=== PATIENT | female | born 1945 | race Caucasian/White ===

== ENCOUNTER 2021-04-14 07:30 | Outpatient (REF) | payer MEDICARE, SELFPAY ==
[2021-04-14 08:31] LABS: Hematocrit 26.8 % (37-47); Hemoglobin 8.9 g/dl (12.0-16.0); Mean Corpuscular HGB Conc 33.2 g/dl (31.0-35.0); Mean Corpuscular Hemoglobin 30.6 pg (27.0-33.0); Mean Corpuscular Volume 92.1 fL (80-98); Mean Platelet Volume 9.8 fL (9.4-12.3); Platelet Count 302 X10*3/uL (160-400); Red Blood Count 2.91 X10*6/uL (4.20-5.50); Red Cell Distribution Width 14.4 % (11.0-16.0); White Blood Count 10.3 X10*3/uL (4.8-10.8)
[2021-04-14 08:37] LABS: Estimated Average Glucose 146 mg/dL; Hemoglobin A1c % 6.7 %
[2021-04-14 09:48] LABS: TSH reflex Free T4 5.75 uIU/mL (0.32-4.0)
[2021-04-14 10:00] LABS: Creatinine Urine 46.93 mg/dL
[2021-04-14 10:09] LABS: Alanine Aminotransferase 11 U/L (0-31); Albumin Level 3.3 g/dL (3.5-5.0); Alkaline Phosphatase 111 U/L (39-117); Anion Gap 18 (12-20); Aspartate Amino Transferase 17 U/L (5-31); Bilirubin Total 0.5 mg/dL (0.0-1.0); Blood Urea Nitrogen 53 mg/dL (9-16); Calcium 7.1 mg/dL (8.4-10.2); Carbon Dioxide 20 mmol/L (22-29); Chloride 101 mmol/L (96-108); Cholesterol 172 mg/dL; Estimated Glomerular Filt Rate 9; Glucose Fasting 169 mg/dL (60-99); HDL Cholesterol 43 mg/dL; Iron 45 mcg/dL (30-160); LDL Cholesterol Calculated 86 mg/dl; Percent Iron Saturation 20 % (15-50); Potassium 3.3 mmol/L (3.3-5.1); Sodium 136 mmol/L (135-145); Total Iron Binding Capacity 230 mcg/dL (228-428); Total Protein 5.9 g/dL (6.5-8.0); Triglycerides 215 mg/dL; Unsaturated Iron Binding 185 ug/dL
[2021-04-14 10:39] LABS: Free T4 (Free Thyroxine) 0.81 ng/dL (0.71-1.85)
[2021-04-16 09:11] LABS: Vitamin B12 1609 pg/mL (200-900)
== END 2021-04-14 07:31 | disposition home or self-care (01) ==
LOC: HO.LAB 07:30
PROVIDERS: PCP Internal Medicine; Visit Provider Physician Assistant
DX: D50.9 Iron deficiency anemia, unspecified (principal); D51.0 Vitamin B12 deficiency anemia due to intrinsic factor deficiency; E03.9 Hypothyroidism, unspecified; E11.65 Type 2 diabetes mellitus with hyperglycemia; I10 Essential (primary) hypertension; Z79.4 Long term (current) use of insulin
CPT/HCPCS: 36415; 80053; 80061; 82043; 82607; 83036; 83540; 84439; 84443; 85027

== ENCOUNTER 2021-04-14 11:12 | Inpatient (IN) | payer MEDICARE, MEDICAID, SELFPAY ==
[2021-04-14] VITALS (12 sets, daily range): BP systolic 139–214; BP diastolic 48–107; PULSE 63–72; RESP 14–20; TEMP 36.5–36.8; O2SAT 94–97; BMI 39.4; BMI 40.1
--- NOTE | ~2021-04-14 | XR_ITS ---
EXAMINATION: XR CHEST CLINICAL INFORMATION: SOB. COMPARISON: None TECHNIQUE: Frontal view of the chest was obtained. FINDINGS: No significant abnormality is noted involving the heart, lungs, mediastinum, bony thorax or soft tissues. XR/XR chest 1V IMPRESSION: Unremarkable chest exam
--- NOTE | ~2021-04-14 | US_ITS ---
EXAMINATION: US RETROPERITONEAL LIMITED (RENAL ONLY) CLINICAL INFORMATION: Acute on chronic kidney disease. COMPARISON: None TECHNIQUE: Grayscale and color imaging of the kidneys FINDINGS: RIGHT KIDNEY: 9.1 x 4.7 x 4.9 cm (SAG x AP x TRV). The kidney is normal in size, contour, and echogenicity. Renal cortical thickness is normal. No calculi or focal parenchymal lesions. No hydronephrosis. LEFT KIDNEY: 10.2 x 5 x 5.5 cm (SAG x AP x TRV). The kidney is normal in size, contour, and echogenicity. Renal cortical thickness is normal. No calculi or focal parenchymal lesions. No hydronephrosis. US/US renal BI IMPRESSION: Normal renal ultrasound.
--- NOTE | 2021-04-14 11:56 | ECG_ITS ---
Test Reason : sob Blood Pressure : / mmHG Vent. Rate : 064 BPM Atrial Rate : 064 BPM P-R Int : 188 ms QRS Dur : 076 ms QT Int : 452 ms P-R-T Axes : 080 048 026 degrees QTc Int : 466 ms Normal sinus rhythm Normal ECG No previous ECGs available Referred By: Kirstin Arias Electronically Signed By:JANIE ISAACS MD
--- NOTE | 2021-04-14 12:09 | ED_ITS ---
HPI - Recheck/Abnormal Lab/Rx General Chief Complaint: Recheck/Abnormal Lab/Rx Stated Complaint: kidney issue Time Seen by Provider: 04/14/21 11:33 Source: patient Mode of arrival: ambulatory History of Present Illness HPI narrative: 75-year-old female with a past medical history of type 2 diabetes, CKD stage 5 hypertensive nephropathy, anemia secondary to renal failure, vitamin-D deficiency, presenting to ED sent in by new PCP for abnormal labs pertaining to renal function. Son reports patient recently moved from [place], has not seen a doctor in several months. Patient reports mild SOB, lightheadedness, and black stool. Denies fever, chills, cough, CP, abdominal pain, nausea/vomiting/diarrhea, dysuria/hematuria. Patient's records from [place] show most recent GFR from 09/14/2020 creatinine 3.1, hemoglobin 8.6, patient was being managed by lead warehouse associate with possible need of dialysis Related Data Home Medications Medication Instructions Recorded Confirmed temazepam 30 mg capsule 30 mg PO BEDTIME PRN 04/12/21 04/14/21 cyanocobalamin (vitamin B-12) 1,000 mcg IM Q28D 04/14/21 04/14/21 1,000 mcg/mL injection solution Previous Rx's Medication Instructions Recorded amitriptyline 10 mg tablet 10 mg PO DAILY 30 Days #30 tab 04/12/21 amlodipine 5 mg tablet 5 mg PO DAILY 30 Days #30 tab 04/12/21 aspirin 81 mg tablet,delayed 81 mg PO DAILY 30 Days #30 tab 04/12/21 release (Adult Low Dose Aspirin) atorvastatin 40 mg tablet 40 mg PO BEDTIME #30 tab 04/12/21 cholecalciferol (vitamin D3) 25 25 mcg PO DAILY #30 cap 04/12/21 mcg (1,000 unit) capsule ferrous sulfate 250 mg (50 mg 250 mg PO DAILY 30 Days #30 tab 04/12/21 iron) tablet,extended release furosemide 20 mg tablet 20 mg PO BID 30 Days #60 tab 04/12/21 insulin NPH-regular 70-30 U-100 25 unit SUBCUT BID 30 Days #15 ml 04/12/21 insulin 100 unit/mL subcutaneous pen (Novolin 70-30 FlexPen U-100 Insulin) levothyroxine 25 mcg capsule 25 mcg PO DAILY #30 cap 04/12/21 loratadine 10 mg tablet (Allergy 10 mg PO DAILY #30 tab 04/12/21 Relief (loratadine)) metoprolol tartrate 25 mg tablet 25 mg PO DAILY #30 tab 04/12/21 montelukast 10 mg tablet 10 mg PO BEDTIME #30 tab 04/12/21 pantoprazole 20 mg tablet,delayed 20 mg PO DAILY #30 tab 04/12/21 release pen needle, diabetic 32 gauge x #50 ea 04/12/21 (BD Sandra 2nd Gen Pen Needle) tramadol 50 mg tablet 50 mg PO BEDTIME 14 Days #14 tab 04/12/21 blood sugar diagnostic (FreeStyle #100 ea 04/13/21 Lite Strips) blood-glucose meter (FreeStyle #1 ea 04/13/21 Lite Meter) lancets 28 gauge (FreeStyle #100 ea 04/13/21 Lancets) Allergies Allergy/AdvReac Type Severity Reaction Status Date / Time No Known Allergies Allergy Verified 04/14/21 11:17 Review of Systems Review of Systems: Constitutional: No Fever, No Chills, No Fatigue, No Malaise ENT/Mouth: No Ear Pain, No Nasal Congestion, No sore throat Eyes: No Eye Pain, No Swelling, No Redness, No Discharge Cardiovascular: No Chest Pain, + SOB, No Palpitations Respiratory: No Cough, No Dyspnea Gastrointestinal: No Nausea, No Vomiting, No Diarrhea, No Constipation, No Abd ominal pain, +melena Genitourinary: No Dysuria, No Hematuria, No Flank Pain, No Urinary Flow Changes, No Hesitancy Musculoskeletal: No joint pain, No Myalgias, No Joint Swelling Skin: No Skin Lesions, No rash Neuro: No Weakness, No Numbness, No Paresthesias, No Loss of Consciousness, +Lightheadedness, No Headache Yes all other systems are reviewed and are negative [facility] Past Medical History Attestation statement: The following information was validated with the patient. Medical History Arthritis Diabetes Hypertension Toe amputee Surgical History Hx of appendectomy Social History Social History Housing: House Alcohol intake: never Patient Tobacco Use Status: Never used Tobacco Tobacco use type: Cigarette e-Cigarette/Vaping Use: Never Used Second Hand Smoke Exposure: No Use of substances other than those prescribed or required for medical reasons: No Advance Directives: No Advance Directives Information Provided: No Physical Exam Vital Signs: Vital Signs: Last Vital Signs Temp 98.2 F 04/14/21 11:17 Pulse 63 04/14/21 16:40 Resp 18 04/14/21 16:40 BP 200/107 H 04/14/21 16:40 Pulse Ox 95 04/14/21 16:40 Body Mass Index 39.4 Const: General: cooperative, healthy appearing and no acute distress Orientation/consciousness: patient oriented x3 Limitations: no limitations HENMT: Head: Yes normal to inspection and Yes atraumatic Ears: hearing grossly normal bilaterally General nose exam: Normal external nose present Face and sinus: Yes normal facial exam Eyes: General: appearance normal, both eyes and all related structures EOM: EOMs intact bilaterally Neck: Neck: Yes normal visual inspection Resp: Effort & Inspection: normal respiratory effort Auscultation: clear to auscultation bilaterally, no rales, no rhonchi and no wheezes Cardio: Rate: regular rate Heart sounds: S1 normal heart sound present and S2 normal heart sound present GI: Inspection: Yes normal to inspection Palpation (GI): Soft to palpation, nontender, no guarding and not rigid Skin: Rashes: no rashes Wounds: no wounds Neuro: General: patient oriented x3, tone normal, moves all extremities and no focal motor deficits Gait exam (Neuro): Normal gait present Extrem: Other: + bilateral LE edema General: Yes normal to inspection and Yes no calf tenderness Course Course Course Narrative: -1437--H&H at patient's baseline, acute on chronic worsening CKD with BUN of 54, creatinine 4.6. Potassium WNL -BNP 458 XR chest 1V IMPRESSION: Unremarkable chest exam >> plan to admit for acute on chronic CKD MDM - Recheck/Abnormal Lab/Rx MDM Narrative Medical decision making narrative: 75-year-old female with a past medical history of type 2 diabetes, CKD stage 5 hypertensive nephropathy, anemia secondary to renal failure, vitamin-D deficiency, presenting to ED sent in by new PCP for abnormal labs pertaining to renal function. Patient reports mild SOB, lightheadedness, and black stool. On exam hypertensive, NAD/nontoxic appearing, physical exam as above. Concern for acute on chronic CKD vs occult GI bleed vs metabolic abnormalities. Lower concern for infectious etiology. Rule out CHF. Symptoms atypical for ACS Plan: EKG, labs, UA, CXR, anticipated admission Medical Records Attestation: I reviewed the patient's medical records. Lab Data Attestation: I reviewed the patient's lab results. Result diagrams: 04/14/21 12:04/14/21 12:21 Labs: Lab Results 04/14/21 04/14/21 04/14/21 Range/Units 12:21 12:21 12:21 WBC 11.2 H (4.8-10.8) X10*3/uL RBC 2.85 L (4.20-5.50) X10*6/uL Hgb 8.6 L (12.0-16.0) g/dl Hct 25.8 L (37-47) % MCV 90.5 (80-98) fL MCH 30.2 (27.0-33.0) pg MCHC 33.3 (31.0-35.0) g/dl RDW 14.4 (11.0-16.0) % Plt Count 264 (160-400) X10*3/uL MPV 10.1 (9.4-12.3) fL Immature Gran % (Auto) 0.4 (0.0-0.4) % Neut % (Auto) 68.8 (45-73) % Lymph % (Auto) 15.9 L (20-40) % [facility] % (Auto) 7.2 (2-11) % Eos % (Auto) 7.3 H (0-4) % Baso % (Auto) 0.4 (0-2) % Lymph # (Auto) 1.8 (1.2-4.9) X10*3/uL [facility] # (Auto) 0.8 (0.1-1.2) X10*3/uL Eos # (Auto) 0.8 H (0.0-0.4) X10*3/uL Baso # (Auto) 0.1 (0.0-0.2) X10*3/uL Abs Immat Gran (auto) 0.05 H (0.00-0.03) X10*3/uL Absolute Neuts (auto) 7.7 (2.0-8.3) X10*3/uL Absolute Nucleated RBC 0.000 (0.0-0.012) X10*3/uL Nucleated RBC % (auto) 0.0 (0.0-0.2) /100WBC Sodium 135 (135-145) mmol/L Potassium 3.4 (3.3-5.1) mmol/L Chloride 100 (96-108) mmol/L Carbon Dioxide 22 (22-29) mmol/L Anion Gap 16 (12-20) BUN 54 H (9-16) mg/dL Creatinine 4.60 H* (0.5-1.4) mg/dL Estim Creat Clear Calc 11.0 Estimated GFR 9 Random Glucose 195 H (60-115) mg/dL Calcium 7.0 L (8.4-10.2) mg/dL Magnesium 1.7 (1.6-2.6) mg/dL Iron 57 (30-160) mcg/dL TIBC 219 L (228-428) mcg/dL % Saturation 26 (15-50) % Unsat Iron Binding 162 ug/dL Ferritin 380 H (10-250) ng/mL Total Bilirubin 0.4 (0.0-1.0) mg/dL Direct Bilirubin < 0.2 (0.0-0.5) mg/dL AST 20 (5-31) U/L ALT 11 (0-31) U/L Alkaline Phosphatase 102 (39-117) U/L B-Natriuretic Peptide 458 H (<100) pg/mL Total Protein 5.7 L (6.5-8.0) g/dL Albumin 3.1 L (3.5-5.0) g/dL Lipase 44 (8-78) U/L Urine Color Urine Appearance Urine pH (5.0-8.0) Ur Specific [place] (1.005-1.025) Urine Protein (NEG-TRACE) MG/DL Urine Glucose (UA) (NEG) MG/DL Urine Ketones (NEG) MG/DL Urine Blood (NEG) Urine Nitrite (NEG) Ur Leukocyte Esterase (NEG) Urine RBC (0) /HPF Urine WBC (0-4) /HPF Ur Squamous Epith Cells /LPF Amorphous Sediment /LPF Urine Bacteria /LPF Stool Occult Blood (NEGATIVE) COVID-19 (GLENNA) (Negative) COVID-19 Clin Com 04/14/21 04/14/21 04/14/21 Range/Units 12:21 12:21 13:08 WBC (4.8-10.8) X10*3/uL RBC (4.20-5.50) X10*6/uL Hgb (12.0-16.0) g/dl Hct (37-47) % MCV (80-98) fL MCH (27.0-33.0) pg MCHC (31.0-35.0) g/dl RDW (11.0-16.0) % Plt Count (160-400) X10*3/uL MPV (9.4-12.3) fL Immature Gran % (Auto) (0.0-0.4) % Neut % (Auto) (45-73) % Lymph % (Auto) (20-40) % [facility] % (Auto) (2-11) % Eos % (Auto) (0-4) % Baso % (Auto) (0-2) % Lymph # (Auto) (1.2-4.9) X10*3/uL [facility] # (Auto) (0.1-1.2) X10*3/uL Eos # (Auto) (0.0-0.4) X10*3/uL Baso # (Auto) (0.0-0.2) X10*3/uL Abs Immat Gran (auto) (0.00-0.03) X10*3/uL Absolute Neuts (auto) (2.0-8.3) X10*3/uL Absolute Nucleated RBC (0.0-0.012) X10*3/uL Nucleated RBC % (auto) (0.0-0.2) /100WBC Sodium (135-145) mmol/L Potassium (3.3-5.1) mmol/L Chloride (96-108) mmol/L Carbon Dioxide (22-29) mmol/L Anion Gap (12-20) BUN (9-16) mg/dL Creatinine (0.5-1.4) mg/dL Estim Creat Clear Calc Estimated GFR Random Glucose (60-115) mg/dL Calcium (8.4-10.2) mg/dL Magnesium (1.6-2.6) mg/dL Iron (30-160) mcg/dL TIBC (228-428) mcg/dL % Saturation (15-50) % Unsat Iron Binding ug/dL Ferritin (10-250) ng/mL Total Bilirubin (0.0-1.0) mg/dL Direct Bilirubin (0.0-0.5) mg/dL AST (5-31) U/L ALT (0-31) U/L Alkaline Phosphatase (39-117) U/L B-Natriuretic Peptide (<100) pg/mL Total Protein (6.5-8.0) g/dL Albumin (3.5-5.0) g/dL Lipase (8-78) U/L Urine Color STRAW Urine Appearance HAZY Urine pH 6.0 (5.0-8.0) Ur Specific [place] 1.010 (1.005-1.025) Urine Protein 3+ H (NEG-TRACE) MG/DL Urine Glucose (UA) 100 H (NEG) MG/DL Urine Ketones NEG (NEG) MG/DL Urine Blood 1+ H (NEG) Urine Nitrite NEG (NEG) Ur Leukocyte Esterase NEG (NEG) Urine RBC 0-2 (0) /HPF Urine WBC 0 (0-4) /HPF Ur Squamous Epith Cells TRACE /LPF Amorphous Sediment 1+ /LPF Urine Bacteria TRACE /LPF Stool Occult Blood NEGATIVE (NEGATIVE) COVID-19 (GLENNA) Negative (Negative) COVID-19 Clin Com See Note Discharge Plan Discharge Clinical Impression: Acute kidney injury superimposed on chronic kidney disease Patient Disposition: Admitted As Inpatient
[2021-04-14 12:24] LABS: MANUAL DIFF FLAG NO
[2021-04-14] MEDS: 0.9 % Sodium Chloride 500 ML 999 ML IV (12:24)
[2021-04-14 12:26] LABS: Basophils Absolute Auto 0.1 X10*3/uL (0.0-0.2); Basophils Percent Auto 0.4 % (0-2); Eosinophils Absolute Auto 0.8 X10*3/uL (0.0-0.4); Eosinophils Percent Auto 7.3 % (0-4); Hematocrit 25.8 % (37-47); Hemoglobin 8.6 g/dl (12.0-16.0); Imm Gran Abs Auto 0.05 X10*3/uL (0.00-0.03); Imm Gran Pct Auto 0.4 % (0.0-0.4); Lymphocytes Absolute Auto 1.8 X10*3/uL (1.2-4.9); Lymphocytes Percent Auto 15.9 % (20-40); Mean Corpuscular HGB Conc 33.3 g/dl (31.0-35.0); Mean Corpuscular Hemoglobin 30.2 pg (27.0-33.0); Mean Corpuscular Volume 90.5 fL (80-98); Mean Platelet Volume 10.1 fL (9.4-12.3); Monocytes Absolute Auto 0.8 X10*3/uL (0.1-1.2); Monocytes Percent Auto 7.2 % (2-11); Neutrophils Absolute Auto 7.7 X10*3/uL (2.0-8.3); Neutrophils Percent Auto 68.8 % (45-73); Platelet Count 264 X10*3/uL (160-400); Red Blood Count 2.85 X10*6/uL (4.20-5.50); Red Cell Distribution Width 14.4 % (11.0-16.0); White Blood Count 11.2 X10*3/uL (4.8-10.8)
[2021-04-14 12:59] LABS: B Type Natriuretic Peptide 458 pg/mL (<100)
[2021-04-14 13:10] LABS: OBS Int Ctl Valid YES; OBS1 NEGATIVE (NEGATIVE)
[2021-04-14 13:15] LABS: Alanine Aminotransferase 11 U/L (0-31); Albumin Level 3.1 g/dL (3.5-5.0); Alkaline Phosphatase 102 U/L (39-117); Anion Gap 16 (12-20); Aspartate Amino Transferase 20 U/L (5-31); Bilirubin Direct < 0.2 mg/dL (0.0-0.5); Bilirubin Total 0.4 mg/dL (0.0-1.0); Blood Urea Nitrogen 54 mg/dL (9-16); Carbon Dioxide 22 mmol/L (22-29); Chloride 100 mmol/L (96-108); Estimated Glomerular Filt Rate 9; Glucose Random 195 mg/dL (60-115); Lipase 44 U/L (8-78); Magnesium 1.7 mg/dL (1.6-2.6); Potassium 3.4 mmol/L (3.3-5.1); Sodium 135 mmol/L (135-145); Total Protein 5.7 g/dL (6.5-8.0)
[2021-04-14 13:22] LABS: Color Urine STRAW; Glucose Urine UA 100 MG/DL (NEG); Leukocyte Esterase Urine NEG (NEG); Nitrite Urine NEG (NEG); UACC Culture Trigger NO; Urine Blood 1+ (NEG); Urine Ketones NEG (NEG); Urine Protein 3+ MG/DL (NEG-TRACE)
[2021-04-14 13:25] LABS: Appearance Urine HAZY
[2021-04-14 13:26] LABS: COVID-19 Test Negative (Negative)
[2021-04-14 13:34] LABS: Amorphous Sediment Urine 1+ /LPF; Bacteria Urine TRACE /LPF; RBC Urine 0-2 /HPF (0); Squamous Epithelial Cell Urine TRACE /LPF; WBC Urine 0 /HPF (0-4)
[2021-04-14] MEDS: Metoprolol Tartrate 25 MG TABLET PO (15:08)
--- NOTE | 2021-04-14 15:12 | PC.NURSE ---
BP elevated. Son states that she took her AM metoprolol and amlodipine. an additional 25mg of metoprolol given for BP. Will continue to monitor.
--- NOTE | 2021-04-14 16:09 | P.HPHOSP_ITS ---
History of Present Illness Date of Service: 04/14/21 Attending physician on admission: Lindsey Burnett Chief Complaint: kyler on ckd, hypertension 75-year-old female who came to the hospital because of had lab test with her primary doctor after returning from [place] and came out to be worsening of renal function from creatinine of 3.1-4.6. She denies any complaints, as per her son at bedside: She was in [place] with her daughter and was not controlling her diet and her sugars were running above 200 range all the time. Subsequently her insulin was adjusted but she went since she recently returned from [place]-son did tight diabetic control -her sugar seems to be improved in 150 range as per the son. He says that she still producing urine and denies any urinary complaints. But since her PCP checked the labs and her creatinine worsen since last times so sent to the hospital for further management. Patient had to 3 episode of diarrhea this week but otherwise no new complaints As per patient's son she is eating and hydrating well. Denies any new complaint of chest pain or shortness of breath or abdominal pain or fever or chills or nausea or vomiting Denies any cough Denies any weakness or numbness. pmx: 1. Chronic kidney disease stage 4-5 versus end-stage renal disease as per the record son brought . 2. Hypertension heart disease. 3. Diabetes with neuropathy 3. Anemia secondary to renal failure. 4. Left ventricular DIS for diastolic dysfunction with preserved systolic function 5. Persistent proteinuria 6. Frailty syndrome in geriatric patient. 7. Low vitamin-D 8. Primary insomnia 9. Allergic rhinitis 10. Retinal degeneration 11.Morbid obesity 12. Has history of vitreous hemorrhage in the past as per the son had intra- ocular injections. 13. Patient has leg edema chronic for which she uses compression stockings. Social history: She lives with her son, she does not smoke or drink or any recreational drug use. Surgical history: Appendectomy, tubal ligation, both the foot the had surgery after injury in the past. Family history: Son has diabetes Review of Systems Review of Systems: As above. Yes all other systems are reviewed and are negative COUNTS INCLUDE 234 BEDS AT THE [facility] Medical History Arthritis Diabetes Hypertension Toe amputee Pertinent family history: Son has diabetes Surgical History Hx of appendectomy Social History Housing: House Alcohol intake: never Patient Tobacco Use Status: Never used Tobacco Tobacco use type: Cigarette e-Cigarette/Vaping Use: Never Used Second Hand Smoke Exposure: No Use of substances other than those prescribed or required for medical reasons: No Advance Directives: No Advance Directives Information Provided: No Meds Allergies Allergy/AdvReac Type Severity Reaction Status Date / Time No Known Allergies Allergy Verified 04/14/21 11:17 Active Medications: Current Medications Amitriptyline HCl (Amitriptyline Hcl 10 Mg Tablet) 10 mg PO DAILY MARKIE Amlodipine Besylate (Amlodipine Besylate 5 Mg Tablet) 5 mg PO DAILY MARKIE; Protocol Aspirin (Aspirin Enteric Coated 81 Mg Tablet.Dr) 81 mg PO DAILY MARKIE Atorvastatin Calcium (Atorvastatin Calcium 40 Mg Tablet) 40 mg PO BEDTIME MARKIE Cyanocobalamin (Cyanocobalamin (Vitamin B-12) 1,000 Mcg/Ml Vial) 1,000 mcg IM Q28D MARKIE Sodium Chloride (Ns) 1,000 mls @ 60 mls/hr IVCONT .[id number] MARKIE Lactated Ringer's (Lr) 1,000 mls @ 60 mls/hr IVCONT .[id number] MARKIE Levothyroxine Sodium (Levothyroxine Sodium 25 Mcg Tablet) 25 mcg PO DAILY MARKIE Loratadine (Loratadine 10 Mg Tablet) 10 mg PO DAILY MARKIE Montelukast Sodium (Montelukast Sodium 10 Mg Tablet) 10 mg PO BEDTIME MARKIE Non-Formulary Medication (Ferrous Sulfate) 250 mg PO DAILY MARKIE Non-Formulary Medication (Temazepam) 30 mg PO BEDTIME PRN PRN Reason: Insomnia Pharmacy Consult (Consult Rx Perform Med Rec) 1 each MISCELLANE ONCE PRN PRN Reason: Consult order Tramadol HCl (Tramadol Hcl 50 Mg Tablet) 50 mg PO BEDTIME MARKIE Vitamin D (Cholecalciferol (Vitamin D3) 25 Mcg Tablet) 25 mcg PO DAILY MARKIE Home Medications Medication Instructions Recorded Confirmed Last Taken Type temazepam 30 mg capsule 30 mg PO BEDTIME PRN 04/12/21 04/14/21 04/13/21 History cyanocobalamin (vitamin B-12) 1,000 mcg IM Q28D 04/14/21 04/14/21 04/14/21 History 1,000 mcg/mL injection solution Physical Exam Vital Signs and Narrative: Vital Signs: Last Vital Signs Temp 98.2 F 04/14/21 11:17 Pulse 68 04/14/21 15:08 Resp 18 04/14/21 13:52 BP 214/48 H 04/14/21 15:08 Pulse Ox 96 04/14/21 13:52 Body Mass Index 39.4 Physical exam: Appearance: Alert.? Oriented X3.? not in distress.? Eyes: Pupils equal, round and reactive to light.? Sclera nonicteric.? ENT: Pharynx normal.? Moist mucous membranes. cvs: rrr, [id number] , no murmur res: clear to auscultation ,no rhonchii or wheezing abd: no rebound or guarding ,nt, bs present. ext pulses present , no cyanosis ,non pitting puffiness. neuro: axo3 , nonfocal. Results Labs CBC and Chem 7: 04/14/21 12:21 04/14/21 12:21 Labs: Laboratory Results - last 24 hr 04/14/21 04/14/21 04/14/21 12:21 12:21 12:21 MCV 90.5 MCH 30.2 MCHC 33.3 RDW 14.4 Plt Count 264 MPV 10.1 Immature Gran % (Auto) 0.4 Neut % (Auto) 68.8 Lymph % (Auto) 15.9 L [place] % (Auto) 7.2 Eos % (Auto) 7.3 H Baso % (Auto) 0.4 Lymph # (Auto) 1.8 [place] # (Auto) 0.8 Eos # (Auto) 0.8 H Baso # (Auto) 0.1 Abs Immat Gran (auto) 0.05 H Absolute Neuts (auto) 7.7 Absolute Nucleated RBC 0.000 Nucleated RBC % (auto) 0.0 Anion Gap 16 Estim Creat Clear Calc 11.0 Estimated GFR 9 Random Glucose 195 H Calcium 7.0 L Magnesium 1.7 Total Bilirubin 0.4 Direct Bilirubin < 0.2 AST 20 ALT 11 Alkaline Phosphatase 102 B-Natriuretic Peptide 458 H Total Protein 5.7 L Albumin 3.1 L Lipase 44 Urine Color Urine Appearance Urine pH Ur Specific [place] Urine Protein Urine Glucose (UA) Urine Ketones Urine Blood Urine Nitrite Ur Leukocyte Esterase Urine RBC Urine WBC Ur Squamous Epith Cells Amorphous Sediment Urine Bacteria Stool Occult Blood COVID-19 (GLENNA) COVID-19 Clin Com 04/14/21 04/14/21 04/14/21 12:21 12:21 13:08 MCV MCH MCHC RDW Plt Count MPV Immature Gran % (Auto) Neut % (Auto) Lymph % (Auto) [place] % (Auto) Eos % (Auto) Baso % (Auto) Lymph # (Auto) [place] # (Auto) Eos # (Auto) Baso # (Auto) Abs Immat Gran (auto) Absolute Neuts (auto) Absolute Nucleated RBC Nucleated RBC % (auto) Anion Gap Estim Creat Clear Calc Estimated GFR Random Glucose Calcium Magnesium Total Bilirubin Direct Bilirubin AST ALT Alkaline Phosphatase B-Natriuretic Peptide Total Protein Albumin Lipase Urine Color STRAW Urine Appearance HAZY Urine pH 6.0 Ur Specific [place] 1.010 Urine Protein 3+ H Urine Glucose (UA) 100 H Urine Ketones NEG Urine Blood 1+ H Urine Nitrite NEG Ur Leukocyte Esterase NEG Urine RBC 0-2 Urine WBC 0 Ur Squamous Epith Cells TRACE Amorphous Sediment 1+ Urine Bacteria TRACE Stool Occult Blood NEGATIVE COVID-19 (GLENNA) Negative COVID-19 Clin Com See Note Imaging Radiologist's Impressions: Impressions Chest X-Ray 04/14/21 11:56 IMPRESSION: Unremarkable chest exam Assessment and Plan (1) HTN (hypertension): Qualifiers: Hypertension type: primary hypertension Qualified Code(s): I10 - Essential (primary) hypertension Status: Acute (2) DMII (diabetes mellitus, type 2): Qualifiers: 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 Still produces urine UA done shows proteinuria unclear if it is worsened from the baseline because he she has history of proteinuria. Given 1 L fluid in ED Started on gentle hydration Repeat BMP in the morning Nephrology evaluation 2. Diabetes: Fingersticks are in 190 knee range Diabetic diet Fingerstick with sliding scale coverage. 3. hypertension urgency : Given metoprolol in the ED will add amlodipine and will continue home medications. 4. Hypercholesteremia continue atorvastatin 5: Anemia of chronic disease: Continue iron supplements Also patient is on B12 will continue that. Stool for occult blood negative 6.htn heart dis: moniter blood pressure , asa , statin. dvt prophylax : s/c heparin Quality Stroke Does the patient have a stroke diagnosis?: No VTE Prior VTE?: No VTE Risk Level:: Medical - moderate - high VTE Device Contraindication: N/A - Device Ordered VTE Drug Contraindication: N/A - Med Ordered
[2021-04-14 16:29] LABS: Iron 57 mcg/dL (30-160); Percent Iron Saturation 26 % (15-50); Total Iron Binding Capacity 219 mcg/dL (228-428); Unsaturated Iron Binding 162 ug/dL
[2021-04-14 16:44] LABS: Ferritin 380 ng/mL (10-250)
[2021-04-14] MEDS: amLODIPine Besylate 5 MG TABLET PO (16:44)
[2021-04-14] MEDS: Lactated Ringers 1,000 ML 80 ML IVCONT (17:38)
[2021-04-14] MEDS: hydrALAZINE HCl 20 MG/ML VIAL 10 MG IVPUSH ×2 (18:02→19:30)
[2021-04-14] MEDS: Heparin Sodium,Porcine 5,000 UNIT/ML VIAL 5000 UNIT SUBCUT (18:03)
--- NOTE | 2021-04-14 18:09 | PC.NURSE ---
1x dose of hydralizine given for BP that was persistently elevated in 200sSBP. Pressure now trending down. Will continue to monitor.
[2021-04-14 18:27] LABS: Glucose, Whole Blood 268 mg/dL (60-115)
[2021-04-14] MEDS: Insulin Lispro 100 UNIT/ML 3 ML VIAL SUBCUT (18:32)
[2021-04-14 19:45] LABS: Glucose, Whole Blood 249 mg/dL (60-115)
[2021-04-14 22:31] LABS: Glucose, Whole Blood 157 mg/dL (60-115)
[2021-04-14] MEDS: traMADoL HCL 50 MG TABLET PO (23:09)
[2021-04-14] MEDS: Atorvastatin Calcium 40 MG TABLET PO (23:09)
[2021-04-14] MEDS: Montelukast Sodium 10 MG TABLET PO (23:09)
--- NOTE | 2021-04-14 23:52 | MHC.PIE ---
p; bp 187/74 on arrival from ed. note; pt denies any ch pain or dizziness i; dr vallejo notifed - notify if over 190 i; will cont to monitor
[2021-04-15] VITALS (7 sets, daily range): BP systolic 115–190; BP diastolic 55–87; PULSE 70–74; RESP 16–20; TEMP 36–36.6; O2SAT 93–96
[2021-04-15] MEDS: Heparin Sodium,Porcine 5,000 UNIT/ML VIAL 5000 UNIT SUBCUT ×3 (02:09→17:16)
[2021-04-15] MEDS: Lactated Ringers 1,000 ML 80 ML IVCONT ×2 (04:11→23:02)
[2021-04-15 05:41] LABS: Hematocrit 25.7 % (37-47); Hemoglobin 8.5 g/dl (12.0-16.0); Mean Corpuscular HGB Conc 33.1 g/dl (31.0-35.0); Mean Corpuscular Hemoglobin 30.5 pg (27.0-33.0); Mean Corpuscular Volume 92.1 fL (80-98); Mean Platelet Volume 10.3 fL (9.4-12.3); Platelet Count 265 X10*3/uL (160-400); Red Blood Count 2.79 X10*6/uL (4.20-5.50); Red Cell Distribution Width 14.4 % (11.0-16.0); White Blood Count 10.8 X10*3/uL (4.8-10.8)
[2021-04-15 06:21] LABS: Anion Gap 18 (12-20); Blood Urea Nitrogen 50 mg/dL (9-16); Calcium 7.1 mg/dL (8.4-10.2); Carbon Dioxide 20 mmol/L (22-29); Chloride 105 mmol/L (96-108); Creatinine Clr Calc Pharmacy 11.9; Estimated Glomerular Filt Rate 10; Glucose Random 165 mg/dL (60-115); Potassium 3.2 mmol/L (3.3-5.1); Sodium 140 mmol/L (135-145)
[2021-04-15 07:34] LABS: Glucose, Whole Blood 144 mg/dL (60-115)
[2021-04-15 07:43] LABS: Magnesium 1.8 mg/dL (1.6-2.6)
[2021-04-15] MEDS: amLODIPine Besylate 5 MG TABLET PO (10:38)
[2021-04-15] MEDS: Levothyroxine Sodium 25 MCG TABLET PO (10:38)
[2021-04-15] MEDS: Ferrous Sulfate 324 MG TABLET.DR PO (10:38)
[2021-04-15] MEDS: Loratadine 10 MG TABLET PO (10:38)
[2021-04-15] MEDS: Aspirin Enteric Coated 81 MG TABLET.DR PO (10:38)
[2021-04-15] MEDS: Amitriptyline HCl 10 MG TABLET PO (10:38)
[2021-04-15] MEDS: Potassium Chloride Packet 20 MEQ PACKET PO (10:38)
[2021-04-15] MEDS: Cholecalciferol (Vitamin D3) 25 MCG TABLET PO (10:38)
[2021-04-15] MEDS: Insulin Glargine,Hum.rec.anlog 100 UNIT/ML 10 ML VIAL 14 UNIT SUBCUT (10:39)
--- NOTE | 2021-04-15 11:15 | P.PNIM_ITS ---
Subjective Subjective Date of Service: 04/15/21 Interval History: Hypertensive urgency, KYLER on CKD Review of Systems Denies any new complaint of chest pain or shortness of breath or abdominal pain or fever or chills or nausea or vomiting Denies any cough Denies any weakness or numbness. Physical Exam Vital Signs: Vital Signs: Last Vital Signs Temp 96.8 F 04/15/21 07:40 Pulse 73 04/15/21 10:38 Resp 20 04/15/21 07:40 BP 180/55 H 04/15/21 10:38 Pulse Ox 93 04/15/21 07:40 Body Mass Index 40.1 Appearance: Alert.? Oriented X3.? not in distress.? Eyes: Pupils equal, round and reactive to light.? Sclera nonicteric.? ENT: Pharynx normal.? Moist mucous membranes. cvs: rrr, [id number] , no murmur res: clear to auscultation ,no rhonchii or wheezing abd: no rebound or guarding ,nt, bs present. ext pulses present , no cyanosis ,Gait well balanced well coordinated. neuro: axo3 , nonfocal. Objective Data Active Medications Albuterol Sulfate (Albuterol Sulfate 90 Mcg 8 Gm Inhaler) 2 puff INHALE RBID [facility] Last Admin: 04/15/21 07:54 Dose: Not Given Documented by: Amitriptyline HCl (Amitriptyline Hcl 10 Mg Tablet) 10 mg PO DAILY [facility] Last Admin: 04/15/21 10:38 Dose: 10 mg Documented by: YULIYA Amlodipine Besylate (Amlodipine Besylate 5 Mg Tablet) 5 mg PO DAILY [facility]; Protocol Last Admin: 04/15/21 10:38 Dose: 5 mg Documented by: YULIYA Aspirin (Aspirin Enteric Coated 81 Mg Tablet.) 81 mg PO DAILY [facility] Last Admin: 04/15/21 10:38 Dose: 81 mg Documented by: YULIYA Atorvastatin Calcium (Atorvastatin Calcium 40 Mg Tablet) 40 mg PO BEDTIME [facility] Last Admin: 04/14/21 23:09 Dose: 40 mg Documented by: IAM Cyanocobalamin (Cyanocobalamin (Vitamin B-12) 1,000 Mcg/Ml Vial) 1,000 mcg IM Q28D [facility] Dextrose (Dextrose 50 % 25 Gm/50 Ml Vial) 25 gm IVPUSH Q15M PRN; Protocol PRN Reason: per Hypoglycemia Standing Ord. Ferrous Sulfate (Ferrous Sulfate 324 Mg Tablet.Dr) 324 mg PO DAILY [facility] Last Admin: 04/15/21 10:38 Dose: 324 mg Documented by: YULIYA Glucose (Glucose Gel 15 Gm Gel..Gram.) 15 gm PO Q15M PRN; Protocol PRN Reason: per Hypoglycemia Standing Ord. Heparin Sodium (Porcine) (Heparin Sodium,Porcine 5,000 Unit/Ml Vial) 5,000 unit SUBCUT Q8H [facility] Last Admin: 04/15/21 10:37 Dose: 5,000 unit Documented by: YULIYA Lactated Ringer's (Lr) 1,000 mls @ 80 mls/hr IVCONT .[id number] [facility] Last Admin: 04/15/21 04:11 Dose: 80 mls/hr Documented by: IAM Insulin Glargine (Insulin Glargine,Hum.Rec.Anlog 100 Unit/Ml 10 Ml Vial) 14 unit SUBCUT DAILY [facility] Last Admin: 04/15/21 10:39 Dose: 14 unit Documented by: YULIYA Insulin Human Lispro (Insulin Lispro 100 Unit/Ml 3 Ml Vial) 0 unit SUBCUT QIDACHS [facility]; Protocol Last Admin: 04/15/21 07:37 Dose: Not Given Documented by: YULIYA Non-Admin Reason: No Insulin Coverage Levothyroxine Sodium (Levothyroxine Sodium 25 Mcg Tablet) 25 mcg PO DAILY [facility] Last Admin: 04/15/21 10:38 Dose: 25 mcg Documented by: YULIYA Loratadine (Loratadine 10 Mg Tablet) 10 mg PO DAILY [facility] Last Admin: 04/15/21 10:38 Dose: 10 mg Documented by: YULIYA Montelukast Sodium (Montelukast Sodium 10 Mg Tablet) 10 mg PO BEDTIME [facility] Last Admin: 04/14/21 23:09 Dose: 10 mg Documented by: IAM Pharmacy Consult (Consult Rx Perform Med Rec) 1 each MISCELLANE ONCE PRN PRN Reason: Consult order Temazepam (Temazepam 15 Mg Capsule) 30 mg PO BEDTIME PRN PRN Reason: Insomnia Tramadol HCl (Tramadol Hcl 50 Mg Tablet) 50 mg PO BEDTIME [facility] Last Admin: 04/14/21 23:09 Dose: 50 mg Documented by: IAM Vitamin D (Cholecalciferol (Vitamin D3) 25 Mcg Tablet) 25 mcg PO DAILY [facility] Last Admin: 04/15/21 10:38 Dose: 25 mcg Documented by: YULIYA Labs CBC & Chem 7: 04/15/21 04:26 04/15/21 04:26 Labs: Laboratory Results - last 24 hr 04/14/21 04/14/21 04/14/21 12:21 12:21 12:21 MCV 90.5 MCH 30.2 MCHC 33.3 RDW 14.4 Plt Count 264 MPV 10.1 Immature Gran % (Auto) 0.4 Neut % (Auto) 68.8 Lymph % (Auto) 15.9 L Weber % (Auto) 7.2 Eos % (Auto) 7.3 H Baso % (Auto) 0.4 Lymph # (Auto) 1.8 Weber # (Auto) 0.8 Eos # (Auto) 0.8 H Baso # (Auto) 0.1 Abs Immat Gran (auto) 0.05 H Absolute Neuts (auto) 7.7 Absolute Nucleated RBC 0.000 Nucleated RBC % (auto) 0.0 Anion Gap 16 Estim Creat Clear Calc 11.0 Estimated GFR 9 POC Glucose Random Glucose 195 H Calcium 7.0 L Magnesium 1.7 Iron 57 TIBC 219 L % Saturation 26 Unsat Iron Binding 162 Ferritin 380 H Total Bilirubin 0.4 Direct Bilirubin < 0.2 AST 20 ALT 11 Alkaline Phosphatase 102 B-Natriuretic Peptide 458 H Total Protein 5.7 L Albumin 3.1 L Lipase 44 Urine Color Urine Appearance Urine pH Ur Specific [place] Urine Protein Urine Glucose (UA) Urine Ketones Urine Blood Urine Nitrite Ur Leukocyte Esterase Urine RBC Urine WBC Ur Squamous Epith Cells Amorphous Sediment Urine Bacteria Stool Occult Blood COVID-19 ([facility]ENNA) COVID-19 Clin Com 04/14/21 04/14/21 04/14/21 12:21 12:21 13:08 MCV MCH MCHC RDW Plt Count MPV Immature Gran % (Auto) Neut % (Auto) Lymph % (Auto) Weber % (Auto) Eos % (Auto) Baso % (Auto) Lymph # (Auto) Weber # (Auto) Eos # (Auto) Baso # (Auto) Abs Immat Gran (auto) Absolute Neuts (auto) Absolute Nucleated RBC Nucleated RBC % (auto) Anion Gap Estim Creat Clear Calc Estimated GFR POC Glucose Random Glucose Calcium Magnesium Iron TIBC % Saturation Unsat Iron Binding Ferritin Total Bilirubin Direct Bilirubin AST ALT Alkaline Phosphatase B-Natriuretic Peptide Total Protein Albumin Lipase Urine Color STRAW Urine Appearance HAZY Urine pH 6.0 Ur Specific [place] 1.010 Urine Protein 3+ H Urine Glucose (UA) 100 H Urine Ketones NEG Urine Blood 1+ H Urine Nitrite NEG Ur Leukocyte Esterase NEG Urine RBC 0-2 Urine WBC 0 Ur Squamous Epith Cells TRACE Amorphous Sediment 1+ Urine Bacteria TRACE Stool Occult Blood NEGATIVE COVID-19 (GLENNA) Negative COVID-19 Clin Com See Note 04/14/21 04/14/21 04/14/21 18:13 19:40 22:21 MCV MCH MCHC RDW Plt Count MPV Immature Gran % (Auto) Neut % (Auto) Lymph % (Auto) Weber % (Auto) Eos % (Auto) Baso % (Auto) Lymph # (Auto) Weber # (Auto) Eos # (Auto) Baso # (Auto) Abs Immat Gran (auto) Absolute Neuts (auto) Absolute Nucleated RBC Nucleated RBC % (auto) Anion Gap Estim Creat Clear Calc Estimated GFR POC Glucose 268 H 249 H 157 H Random Glucose Calcium Magnesium Iron TIBC % Saturation Unsat Iron Binding Ferritin Total Bilirubin Direct Bilirubin AST ALT Alkaline Phosphatase B-Natriuretic Peptide Total Protein Albumin Lipase Urine Color Urine Appearance Urine pH Ur Specific [place] Urine Protein Urine Glucose (UA) Urine Ketones Urine Blood Urine Nitrite Ur Leukocyte Esterase Urine RBC Urine WBC Ur Squamous Epith Cells Amorphous Sediment Urine Bacteria Stool Occult Blood COVID-19 ([facility]ENNA) COVID-19 Clin Com 04/15/21 04/15/21 04/15/21 04:26 04:26 07:20 MCV 92.1 MCH 30.5 MCHC 33.1 RDW 14.4 Plt Count 265 MPV 10.3 Immature Gran % (Auto) Neut % (Auto) Lymph % (Auto) Weber % (Auto) Eos % (Auto) Baso % (Auto) Lymph # (Auto) Weber # (Auto) Eos # (Auto) Baso # (Auto) Abs Immat Gran (auto) Absolute Neuts (auto) Absolute Nucleated RBC 0.000 Nucleated RBC % (auto) 0.0 Anion Gap 18 Estim Creat Clear Calc 11.9 Estimated GFR 10 POC Glucose 144 H Random Glucose 165 H Calcium 7.1 L Magnesium 1.8 Iron TIBC % Saturation Unsat Iron Binding Ferritin Total Bilirubin Direct Bilirubin AST ALT Alkaline Phosphatase B-Natriuretic Peptide Total Protein Albumin Lipase Urine Color Urine Appearance Urine pH Ur Specific [place] Urine Protein Urine Glucose (UA) Urine Ketones Urine Blood Urine Nitrite Ur Leukocyte Esterase Urine RBC Urine WBC Ur Squamous Epith Cells Amorphous Sediment Urine Bacteria Stool Occult Blood COVID-19 ([facility]) COVID-19 Clin Com Assessment and Plan (1) KYLER (acute kidney injury): Status: Acute (2) HTN (hypertension): Status: Acute Assessment and Plan: 1.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 Seems multifactorial including uncontrolled hypertension and diabetes. last creatinie was in 3.1 Still produces urine UA done shows proteinuria unclear if it is worsened from the baseline because he she has history of proteinuria. creatinine slightly imptoving Given 1 L fluid in ED, on lr@80 ml/lr moniter BMP in the morning Nephrology evaluation, medical records brought by family is in the chart. 2. Diabetes:? Fingersticks are in 140-200's range Diabetic diet lantus 14 units Fingerstick with sliding scale coverage. 3.? hypertension urgency :? Given metoprolol in the ED will add amlodipine and will continue home medications. 4. Hypercholesteremia continue atorvastatin 5:? Anemia of chronic disease:? Continue iron supplements Also patient is on B12 will continue that. Stool for occult blood negative 6.htn heart dis: moniter blood pressure , asa , statin. dvt prophylax : s/c heparin Quality Stroke Does the patient have a stroke diagnosis?: No VTE Prior VTE?: No VTE Risk Level:: Medical - moderate - high VTE Device Contraindication: N/A - Device Ordered VTE Drug Contraindication: N/A - Med Ordered
[2021-04-15 11:56] LABS: Glucose, Whole Blood 221 mg/dL (60-115)
[2021-04-15] MEDS: Insulin Lispro 100 UNIT/ML 3 ML VIAL SUBCUT ×2 (12:29→22:56)
[2021-04-15] MEDS: amLODIPine Besylate 2.5 MG TABLET PO (12:30)
--- NOTE | 2021-04-15 14:43 | P.CONNP_ITS ---
History of Present Illness Reason for Consult Consult date: 04/15/21 Reason for consult: CKD 5 Chief Complaint Chief complaint: Rojas , hthn urgency History of Present Illness Narrative: 75-year-old female presented to the hospital as guided by her PCP when she was found to have worsening of serum creatinine of from 3.1 to 4.6. She is known to have Diabetic Kidney disease with proteinuria. She had been under a renal physician's care in [place] until she relocated. She had 3 episodes of diarrhea this week but otherwise no new complaints. She denies taking NSAID's. Nephrology has been consulted to assist in her clinical care during her current hospital stay. Review of Systems Review of Systems Yes all other systems are reviewed and are negative PMFSH Past Medical History Medical History Arthritis Diabetes Hypertension Toe amputee Surgical History Surgical History Hx of appendectomy Social History Social History Household Members: Other Household Members Other:: self, son lives close by Housing: Apartment Do you presently have visiting nurse or other home services: No Alcohol intake: never Patient Tobacco Use Status: Never used Tobacco Tobacco use type: Cigarette e-Cigarette/Vaping Use: Never Used Second Hand Smoke Exposure: No Use of substances other than those prescribed or required for medical reasons: No Currently Displaying Signs/Symptoms of Drug Intoxication Withdrawal: No Have you been hit, kicked, punched, or otherwise hurt by someone within the past year? If so, by whom?: No Do you feel safe in your current relationship?: No Is there a partner from a previous relationship who is making you feel unsafe now?: No Are you made to feel afraid or neglected: No Advance Directives: No Advance Directives Information Provided: No Do you have thoughts of harming others: None Do you have a plan to hurt others: No Plan Recently lost weight without trying: No Eating poorly because of decreased appetite: No Nutrition Risks: No Nutritional Risk Meds Allergies Allergy/AdvReac Type Severity Reaction Status Date / Time No Known Allergies Allergy Verified 04/14/21 11:17 Active Medications: Current Medications Albuterol Sulfate (Albuterol Sulfate 90 Mcg 8 Gm Inhaler) 2 puff INHALE RBID [facility] Last Admin: 04/15/21 07:54 Dose: Not Given Documented by: Amitriptyline HCl (Amitriptyline Hcl 10 Mg Tablet) 10 mg PO DAILY [facility] Last Admin: 04/15/21 10:38 Dose: 10 mg Documented by: Amlodipine Besylate (Amlodipine Besylate 2.5 Mg Tablet) 7.5 mg PO DAILY [facility]; Protocol Aspirin (Aspirin Enteric Coated 81 Mg Tablet.) 81 mg PO DAILY [facility] Last Admin: 04/15/21 10:38 Dose: 81 mg Documented by: Atorvastatin Calcium (Atorvastatin Calcium 40 Mg Tablet) 40 mg PO BEDTIME [facility] Last Admin: 04/14/21 23:09 Dose: 40 mg Documented by: Cyanocobalamin (Cyanocobalamin (Vitamin B-12) 1,000 Mcg/Ml Vial) 1,000 mcg IM Q28D [facility] Dextrose (Dextrose 50 % 25 Gm/50 Ml Vial) 25 gm IVPUSH Q15M PRN; Protocol PRN Reason: per Hypoglycemia Standing Ord. Ferrous Sulfate (Ferrous Sulfate 324 Mg Tablet.) 324 mg PO DAILY [facility] Last Admin: 04/15/21 10:38 Dose: 324 mg Documented by: Glucose (Glucose Gel 15 Gm Gel..Gram.) 15 gm PO Q15M PRN; Protocol PRN Reason: per Hypoglycemia Standing Ord. Heparin Sodium (Porcine) (Heparin Sodium,Porcine 5,000 Unit/Ml Vial) 5,000 unit SUBCUT Q8H [facility] Last Admin: 04/15/21 10:37 Dose: 5,000 unit Documented by: Lactated Ringer's (Lr) 1,000 mls @ 80 mls/hr IVCONT .[id number] [facility] Last Admin: 04/15/21 04:11 Dose: 80 mls/hr Documented by: Insulin Glargine (Insulin Glargine,Hum.Rec.Anlog 100 Unit/Ml 10 Ml Vial) 14 unit SUBCUT DAILY [facility] Last Admin: 04/15/21 10:39 Dose: 14 unit Documented by: Insulin Human Lispro (Insulin Lispro 100 Unit/Ml 3 Ml Vial) 0 unit SUBCUT QIDAC HS [facility]; Protocol Last Admin: 04/15/21 12:29 Dose: 4 unit Documented by: Levothyroxine Sodium (Levothyroxine Sodium 25 Mcg Tablet) 25 mcg PO DAILY [facility] Last Admin: 04/15/21 10:38 Dose: 25 mcg Documented by: Loratadine (Loratadine 10 Mg Tablet) 10 mg PO DAILY [facility] Last Admin: 04/15/21 10:38 Dose: 10 mg Documented by: Montelukast Sodium (Montelukast Sodium 10 Mg Tablet) 10 mg PO BEDTIME [facility] Last Admin: 04/14/21 23:09 Dose: 10 mg Documented by: Pharmacy Consult (Consult Rx Perform Med Rec) 1 each MISCELLANE ONCE PRN PRN Reason: Consult order Temazepam (Temazepam 15 Mg Capsule) 30 mg PO BEDTIME PRN PRN Reason: Insomnia Tramadol HCl (Tramadol Hcl 50 Mg Tablet) 50 mg PO BEDTIME [facility] Last Admin: 04/14/21 23:09 Dose: 50 mg Documented by: Vitamin D (Cholecalciferol (Vitamin D3) 25 Mcg Tablet) 25 mcg PO DAILY [facility] Last Admin: 04/15/21 10:38 Dose: 25 mcg Documented by: Home Medications Medication Instructions Recorded Confirmed Last Taken Type temazepam 30 mg capsule 30 mg PO BEDTIME PRN 04/12/21 04/14/21 04/13/21 History cyanocobalamin (vitamin B-12) 1,000 mcg IM Q28D 04/14/21 04/14/21 04/14/21 History 1,000 mcg/mL injection solution Physical Exam Vital Signs: Last Vital Signs Temp 97.0 F 04/15/21 12:00 Pulse 72 04/15/21 12:30 Resp 20 04/15/21 12:00 BP 115/64 04/15/21 12:30 Pulse Ox 95 04/15/21 12:00 Body Mass Index 40.1 Const General: no acute distress Orientation/consciousness: patient oriented x3 Eyes EOM: EOMs intact bilaterally Neck Neck: Yes supple Resp Auscultation: diminished lung sounds Cardio Jugular venous distension: no JVD Heart sounds: no rubs GI Palpation (GI): Soft to palpation Neuro General: patient oriented x3 and moves all extremities Results Lab Results Result Diagrams: 04/15/21 04:26 04/15/21 04:26 Lab results: Chemistry 04/14/21 04/15/21 12:21 04:26 Sodium 135 140 Potassium 3.4 3.2 L Carbon Dioxide 22 20 L BUN 54 H 50 H Creatinine 4.60 H* 4.26 H* Calcium 7.0 L 7.1 L Hematology 04/14/21 04/15/21 12:21 04:26 WBC 11.2 H 10.8 Hgb 8.6 L 8.5 L Plt Count 264 265 Urinalysis 04/14/21 13:08 Urine Color STRAW Urine Appearance HAZY Urine pH 6.0 Ur Specific [place] 1.010 Urine Protein 3+ H Urine Glucose (UA) 100 H Urine Ketones NEG Urine Blood 1+ H Urine Nitrite NEG Ur Leukocyte Esterase NEG Urine RBC 0-2 Urine WBC 0 Ur Squamous Epith Cells TRACE Assessment and Plan (1) ROJAS (acute kidney injury): Status: Acute Acute Kidney Injury DDx- ATN vs progression of her diabetic renal disease No reason to suspect GN/AIN. Known to have CKD 4 for a long time Had been under the care of [facility] [employer] in [place]( relocated now) Not on ACEI/ARB/Diuretics; Getting hydration PTH/Vitamin D/Phosphorus/Serum & Urine Immunofixation ordered Needs Renal USS; If she does not improve, will need a renal biopsy Hold Aspirin if we have to do a renal biopsy; Protect non dominant arm for AVF Likely advanced renal disease given hypocalcemia Labs AM. Further management is pending evolving data Anemia of Chronic Disease T Sat > 20 %. [place] [id number] Unit one time dose today Hypertension No ACEI/ARB. 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 Unlikely Amlyloid / other reasons Will need renal biopsy Procedures Date of Service Date of Service: 04/15/21
[2021-04-15 16:47] LABS: Glucose, Whole Blood 125 mg/dL (60-115)
[2021-04-15] MEDS: Magnesium Oxide 400 MG TABLET 800 MG PO (17:15)
[2021-04-15 21:02] LABS: Glucose, Whole Blood 161 mg/dL (60-115)
[2021-04-15] MEDS: Atorvastatin Calcium 40 MG TABLET PO (22:56)
[2021-04-15] MEDS: traMADoL HCL 50 MG TABLET PO (22:56)
[2021-04-15] MEDS: Montelukast Sodium 10 MG TABLET PO (22:56)
[2021-04-16] VITALS (7 sets, daily range): BP systolic 149–179; BP diastolic 51–82; PULSE 68–95; RESP 14–18; TEMP 35.9–36.6; O2SAT 95–97
[2021-04-16] MEDS: Heparin Sodium,Porcine 5,000 UNIT/ML VIAL 5000 UNIT SUBCUT ×3 (02:13→17:07)
[2021-04-16 06:39] LABS: Phosphorus 4.8 mg/dL (2.7-4.5)
[2021-04-16 06:43] LABS: Anion Gap 14 (12-20); Blood Urea Nitrogen 44 mg/dL (9-16); Calcium 7.3 mg/dL (8.4-10.2); Carbon Dioxide 23 mmol/L (22-29); Chloride 107 mmol/L (96-108); Creatinine Clr Calc Pharmacy 12.2; Estimated Glomerular Filt Rate 10; Glucose Random 94 mg/dL (60-115); Potassium 3.2 mmol/L (3.3-5.1); Sodium 141 mmol/L (135-145)
[2021-04-16 07:02] LABS: Vitamin D 25-OH Total 15.3 ng/mL (>30)
[2021-04-16 07:55] LABS: Glucose, Whole Blood 85 mg/dL (60-115)
[2021-04-16 08:41] LABS: Folate > 20.0 ng/mL (> or = 4.0); Vitamin B12 1651 pg/mL (200-900)
--- NOTE | 2021-04-16 09:36 | P.PNIM_ITS ---
Subjective Subjective Date of Service: 04/16/21 Interval History: HTN , Kyler on ckd. Review of Systems Denies any new complaint of chest pain or shortness of breath or abdominal pain or fever or chills or nausea or vomiting Denies any cough Denies any weakness or numbness. A Physical Exam 2 Vital Signs: Vital Signs: Last Vital Signs Temp 96.8 F 04/16/21 07:28 Pulse 76 04/16/21 07:28 Resp 18 04/16/21 07:28 BP 169/51 H 04/16/21 07:28 Pulse Ox 96 04/16/21 07:28 Body Mass Index 40.1 Appearance: Alert.? Oriented X3.? not in distress.? Eyes: Pupils equal, round and reactive to light.? Sclera nonicteric.? ENT: Pharynx normal.? Moist mucous membranes. cvs: rrr, [id number] , no murmur res: clear to auscultation ,no rhonchii or wheezing abd: no rebound or guarding ,nt, bs present. ext pulses present , no cyanosis ,Gait well balanced well coordinated. neuro: axo3 , nonfocal. Objective Data Active Medications Albuterol Sulfate (Albuterol Sulfate 90 Mcg 8 Gm Inhaler) 2 puff INHALE RBID [facility] Last Admin: 04/16/21 08:29 Dose: Not Given Documented by: LAURA Non-Admin Reason: Med Not Available Amitriptyline HCl (Amitriptyline Hcl 10 Mg Tablet) 10 mg PO DAILY [facility] Last Admin: 04/15/21 10:38 Dose: 10 mg Documented by: YULIYA Amlodipine Besylate (Amlodipine Besylate 5 Mg Tablet) 5 mg PO DAILY [facility]; Protocol Aspirin (Aspirin Enteric Coated 81 Mg Tablet.) 81 mg PO DAILY [facility] Last Admin: 04/15/21 10:38 Dose: 81 mg Documented by: YULIYA Atorvastatin Calcium (Atorvastatin Calcium 40 Mg Tablet) 40 mg PO BEDTIME [facility] Last Admin: 04/15/21 22:56 Dose: 40 mg Documented by: KARIN Cyanocobalamin (Cyanocobalamin (Vitamin B-12) 1,000 Mcg/Ml Vial) 1,000 mcg IM Q28D [facility] Dextrose (Dextrose 50 % 25 Gm/50 Ml Vial) 25 gm IVPUSH Q15M PRN; Protocol PRN Reason: per Hypoglycemia Standing Ord. Ferrous Sulfate (Ferrous Sulfate 324 Mg Tablet.Dr) 324 mg PO DAILY [facility] Last Admin: 04/15/21 10:38 Dose: 324 mg Documented by: YULIYA Glucose (Glucose Gel 15 Gm Gel..Gram.) 15 gm PO Q15M PRN; Protocol PRN Reason: per Hypoglycemia Standing Ord. Heparin Sodium (Porcine) (Heparin Sodium,Porcine 5,000 Unit/Ml Vial) 5,000 unit SUBCUT Q8H [facility] Last Admin: 04/16/21 02:13 Dose: 5,000 unit Documented by: KARIN Lactated Ringer's (Lr) 1,000 mls @ 80 mls/hr IVCONT .[id number] [facility] Last Admin: 04/16/21 07:20 Dose: Not Given Documented by: AVILA Non-Admin Reason: not done yet Insulin Glargine (Insulin Glargine,Hum.Rec.Anlog 100 Unit/Ml 10 Ml Vial) 14 unit SUBCUT DAILY [facility] Last Admin: 04/15/21 10:39 Dose: 14 unit Documented by: YULIYA Insulin Human Lispro (Insulin Lispro 100 Unit/Ml 3 Ml Vial) 0 unit SUBCUT QIDACHS [facility]; Protocol Last Admin: 04/16/21 08:15 Dose: Not Given Documented by: SHAINA Non-Admin Reason: No Insulin Coverage Levothyroxine Sodium (Levothyroxine Sodium 25 Mcg Tablet) 25 mcg PO DAILY [facility] Last Admin: 04/15/21 10:38 Dose: 25 mcg Documented by: YULIYA Loratadine (Loratadine 10 Mg Tablet) 10 mg PO DAILY [facility] Last Admin: 04/15/21 10:38 Dose: 10 mg Documented by: YULIYA Montelukast Sodium (Montelukast Sodium 10 Mg Tablet) 10 mg PO BEDTIME [facility] Last Admin: 04/15/21 22:56 Dose: 10 mg Documented by: KARIN Pharmacy Consult (Consult Rx Perform Med Rec) 1 each MISCELLANE ONCE PRN PRN Reason: Consult order Temazepam (Temazepam 15 Mg Capsule) 30 mg PO BEDTIME PRN PRN Reason: Insomnia Tramadol HCl (Tramadol Hcl 50 Mg Tablet) 50 mg PO BEDTIME [facility] Last Admin: 04/15/21 22:56 Dose: 50 mg Documented by: KARIN Vitamin D (Cholecalciferol (Vitamin D3) 25 Mcg Tablet) 25 mcg PO DAILY [facility] Last Admin: 04/15/21 10:38 Dose: 25 mcg Documented by: YULIYA Labs CBC & Chem 7: 04/15/21 04:26 04/16/21 05:54 Labs: Laboratory Results - last 24 hr 04/14/21 04/15/21 04/15/21 12:21 11:46 16:32 Anion Gap Estim Creat Clear Calc Estimated GFR POC Glucose 221 H 125 H Random Glucose Calcium Phosphorus Vitamin B12 1651 H 25-OH Vitamin D Total Folate > 20.0 04/15/21 04/16/21 04/16/21 20:45 05:54 05:54 Anion Gap 14 Estim Creat Clear Calc 12.2 Estimated GFR 10 POC Glucose 161 H Random Glucose 94 Calcium 7.3 L Phosphorus 4.8 H Vitamin B12 25-OH Vitamin D Total 15.3 Folate 04/16/21 07:27 Anion Gap Estim Creat Clear Calc Estimated GFR POC Glucose 85 Random Glucose Calcium Phosphorus Vitamin B12 25-OH Vitamin D Total Folate Assessment and Plan (1) KYLER (acute kidney injury): Status: Acute (2) HTN (hypertension): Status: Acute Assessment and Plan: 1.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 Seems multifactorial including uncontrolled hypertension and diabetes. last creatinie was in 3.1 Still produces urine UA done shows proteinuria unclear if it is worsened from the baseline because he she has history of proteinuria. creatinine slowly improving 4.19 Given 1 L fluid in ED, on lr@80 ml/lr moniter BMP in the morning Nephrology evaluation, medical records brought by family is in the chart. 2. Diabetes:? Fingersticks are in 140-200's range Diabetic diet lantus 14 units Fingerstick with sliding scale coverage. 3.? hypertension urgency :recomeded not tight control-? continue amlodipine and metoprolol. 4. Hypercholesteremia :continue atorvastatin. 5:? Anemia of chronic disease:? Continue iron supplements Also patient is on B12 will continue that. Stool for occult blood negative 6.htn heart dis: moniter blood pressure , asa , statin. dvt prophylax : s/c heparin Quality Stroke Does the patient have a stroke diagnosis?: No VTE Prior VTE?: No VTE Risk Level:: Medical - moderate - high VTE Device Contraindication: N/A - Device Ordered VTE Drug Contraindication: N/A - Med Ordered
[2021-04-16] MEDS: Amitriptyline HCl 10 MG TABLET PO (09:48)
[2021-04-16] MEDS: Aspirin Enteric Coated 81 MG TABLET.DR PO (09:48)
[2021-04-16] MEDS: Levothyroxine Sodium 25 MCG TABLET PO (09:48)
[2021-04-16] MEDS: amLODIPine Besylate 5 MG TABLET PO (09:49)
[2021-04-16] MEDS: Cholecalciferol (Vitamin D3) 25 MCG TABLET PO (09:49)
[2021-04-16] MEDS: Loratadine 10 MG TABLET PO (09:49)
[2021-04-16] MEDS: Insulin Glargine,Hum.rec.anlog 100 UNIT/ML 10 ML VIAL 14 UNIT SUBCUT (09:50)
[2021-04-16] MEDS: Ferrous Sulfate 324 MG TABLET.DR PO (09:50)
--- NOTE | 2021-04-16 11:25 | MHC.CM.PN ---
CM MET WITH PT WITH THE ASSISTANCE OF [facility] PT REPORTS SHE LIVES ALONE AND IS INDEPENDENT WITH CARE PT REPORTS SHE HAS A ROLLATOR FOR DME PT SAYS SHE DOES NOT HAVE SERVICES AT THIS TIME BECAUSE SHE JUST MOVED HERE PT REPORTS SHE HAS A NEW PT APPT WITH [facility] COMING UP HOWEVER SHE HAS NOT SEEN HIM YET. PT REPORTS HER SON IS HER HCP IMM DELIVERED CURRENT DC PLAN IS HOME WITH NO SERVICES PT CANNOT HAVE VNA SHE IS NOT ESTABLISHED WITH PCP YET FAMILY TO TRANSPORT
[2021-04-16] MEDS: Potassium Chloride Packet 20 MEQ PACKET PO (11:38)
[2021-04-16] MEDS: Metoprolol Succinate ER 25 MG TAB.ER.24H PO (11:39)
[2021-04-16 12:04] LABS: Glucose, Whole Blood 148 mg/dL (60-115)
--- NOTE | 2021-04-16 12:04 | P.PNNP_ITS ---
Subjective Subjective Date of Service: 04/16/21 Interval history: HTN , Rojas on ckd. Physical Exam Vital Signs: Vital Signs: Last Vital Signs Temp 97.1 F 04/16/21 11:33 Pulse 95 04/16/21 11:33 Resp 16 04/16/21 11:33 BP 166/64 H 04/16/21 11:33 Pulse Ox 95 04/16/21 11:33 Body Mass Index 40.1 Const: General: no acute distress Orientation/consciousness: patient oriented x3 Eyes: EOM: EOMs intact bilaterally Neck: Neck: Yes supple Resp: Auscultation: diminished lung sounds Cardio: Jugular venous distension: no JVD Heart sounds: no rubs GI: Palpation (GI): Soft to palpation Neuro: General: patient oriented x3 and moves all extremities Objective Data Labs CBC & Chem 7: 04/15/21 04:26 04/16/21 05:54 Labs: Laboratory Results - last 24 hr 04/14/21 04/15/21 04/15/21 12:21 16:32 20:45 Sodium Potassium Chloride Carbon Dioxide Anion Gap BUN Creatinine Estim Creat Clear Calc Estimated GFR POC Glucose 125 H 161 H Random Glucose Calcium Phosphorus Vitamin B12 1651 H 25-OH Vitamin D Total Folate > 20.0 04/16/21 04/16/21 04/16/21 05:54 05:54 07:27 Sodium 141 Potassium 3.2 L Chloride 107 Carbon Dioxide 23 Anion Gap 14 BUN 44 H Creatinine 4.19 H* Estim Creat Clear Calc 12.2 Estimated GFR 10 POC Glucose 85 Random Glucose 94 Calcium 7.3 L Phosphorus 4.8 H Vitamin B12 25-OH Vitamin D Total 15.3 Folate 04/16/21 11:38 Sodium Potassium Chloride Carbon Dioxide Anion Gap BUN Creatinine Estim Creat Clear Calc Estimated GFR POC Glucose 148 H Random Glucose Calcium Phosphorus Vitamin B12 25-OH Vitamin D Total Folate Procedures Date of Service Date of Service: 04/16/21 Assessment & Plan Assessment and plan (1) ROJAS (acute kidney injury): Status: Acute Assessment and Plan: 1. ROJAS: Scr grad decr and ? approaching bsl; mulitfact ATN vs other 2. CKD 4: bsl SCr 3.1 and his suggestive of DN/HTN renal dis; sero w/u in progress and will need to consider a kidney Bx for definitive Dx ( can be done as outpt ) 3. HTN 4. Nephrotic Syndroma: likley d/t DN but needs sero w/u to r/o other causes 4. CKD issues: anemia Fe/Epo def MBD of CKD and ? 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
[2021-04-16 16:42] LABS: Glucose, Whole Blood 179 mg/dL (60-115)
[2021-04-16] MEDS: Insulin Lispro 100 UNIT/ML 3 ML VIAL SUBCUT (17:07)
[2021-04-16 20:23] LABS: Glucose, Whole Blood 101 mg/dL (60-115)
[2021-04-16] MEDS: Montelukast Sodium 10 MG TABLET PO (20:37)
[2021-04-16] MEDS: Atorvastatin Calcium 40 MG TABLET PO (20:37)
[2021-04-16] MEDS: traMADoL HCL 50 MG TABLET PO (20:37)
[2021-04-17] MEDS: Heparin Sodium,Porcine 5,000 UNIT/ML VIAL 5000 UNIT SUBCUT ×2 (02:28→09:47)
[2021-04-17 04:00] VITALS: BP 146/67; PULSE 82; RESP 17; TEMP 36.6; O2SAT 97
[2021-04-17 05:34] LABS: Hematocrit 26.6 % (37-47); Hemoglobin 8.5 g/dl (12.0-16.0)
[2021-04-17 06:24] LABS: Anion Gap 14 (12-20); Blood Urea Nitrogen 43 mg/dL (9-16); Calcium 7.3 mg/dL (8.4-10.2); Carbon Dioxide 24 mmol/L (22-29); Chloride 106 mmol/L (96-108); Creatinine Clr Calc Pharmacy 12.3; Estimated Glomerular Filt Rate 11; Glucose Random 116 mg/dL (60-115); Potassium 3.9 mmol/L (3.3-5.1); Sodium 140 mmol/L (135-145)
[2021-04-17 07:31] VITALS: BP 101/67; PULSE 75; RESP 18; TEMP 36.3; O2SAT 97
[2021-04-17 07:43] LABS: Glucose, Whole Blood 104 mg/dL (60-115)
[2021-04-17] MEDS: Cholecalciferol (Vitamin D3) 25 MCG TABLET PO (09:49)
[2021-04-17] MEDS: Metoprolol Succinate ER 25 MG TAB.ER.24H PO (09:49)
[2021-04-17] MEDS: Loratadine 10 MG TABLET PO (09:49)
[2021-04-17] MEDS: Levothyroxine Sodium 25 MCG TABLET PO (09:49)
[2021-04-17] MEDS: Amitriptyline HCl 10 MG TABLET PO (09:49)
[2021-04-17] MEDS: Ferrous Sulfate 324 MG TABLET.DR PO (09:49)
[2021-04-17 09:50] VITALS: BP 101/67
[2021-04-17] MEDS: Insulin Glargine,Hum.rec.anlog 100 UNIT/ML 10 ML VIAL 14 UNIT SUBCUT (09:50)
--- NOTE | 2021-04-17 10:47 | P.PNNP_ITS ---
Subjective Subjective Date of Service: 04/17/21 Interval history: HTN , Rojas on ckd. Physical Exam Vital Signs: Vital Signs: Last Vital Signs Temp 97.4 F 04/17/21 07:31 Pulse 75 04/17/21 07:31 Resp 18 04/17/21 07:31 BP 101/67 04/17/21 09:50 Pulse Ox 97 04/17/21 07:31 Body Mass Index 40.1 Const: General: no acute distress Orientation/consciousness: patient oriented x3 Eyes: EOM: EOMs intact bilaterally Neck: Neck: Yes supple Resp: Auscultation: diminished lung sounds Cardio: Jugular venous distension: no JVD Heart sounds: no rubs GI: Palpation (GI): Soft to palpation Neuro: General: patient oriented x3 and moves all extremities Objective Data Labs CBC & Chem 7: 04/17/21 05:23 04/17/21 05:23 Labs: Laboratory Results - last 24 hr 04/16/21 04/16/21 04/16/21 11:38 16:34 20:16 Hgb Hct Sodium Potassium Chloride Carbon Dioxide Anion Gap BUN Creatinine Estim Creat Clear Calc Estimated GFR POC Glucose 148 H 179 H 101 Random Glucose Calcium 04/17/21 04/17/21 04/17/21 05:23 05:23 07:35 Hgb 8.5 L Hct 26.6 L Sodium 140 Potassium 3.9 D Chloride 106 Carbon Dioxide 24 Anion Gap 14 BUN 43 H Creatinine 4.14 H* Estim Creat Clear Calc 12.3 Estimated GFR 11 POC Glucose 104 Random Glucose 116 H Calcium 7.3 L Procedures Date of Service Date of Service: 04/17/21 Assessment & Plan Assessment and plan (1) ROJAS (acute kidney injury): Start date: 04/17/21 Start time: 10:50 Status: Acute Assessment and Plan: 1. ROJAS: Scr grad decr and ? approaching bsl; mulitfact ATN vs other 2. CKD 4: bsl SCr 3.1 and his suggestive of DN/HTN renal dis; sero w/u in progress and will need to consider a kidney Bx for definitive Dx ( can be done as outpt ) 3. HTN 4. Nephrotic Syndroma: likley d/t DN but needs sero w/u to r/o other causes 4. 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
--- NOTE | 2021-04-17 10:49 | PC.NURSE ---
Skin assessment completed. No skin issues noted at this time.
[2021-04-17 11:25] LABS: Glucose, Whole Blood 159 mg/dL (60-115)
[2021-04-17 11:30] VITALS: BP 142/67; PULSE 76; RESP 18; TEMP 36.7; O2SAT 96
--- NOTE | 2021-04-17 11:42 | MHC.CM.PN ---
PATIENT IS DISCHARGED HOME - SELF CARE. RN AWARE OF PLAN. PATIENT KNOWS THAT SHE WILL NEED TO FOLLOW UP WITH INITIAL PCP VISIT AND SCHEDULE THIS ON HER OWN.
[2021-04-17] MEDS: Insulin Lispro 100 UNIT/ML 3 ML VIAL SUBCUT (11:59)
--- NOTE | 2021-04-17 14:03 | P.DS_ITS ---
DS: Providers Provider Date of Service: 04/17/21 Date of admission: 04/14/21 16:29 Primary care physician: Lonnie Khan MD Consults: 04/14/21 16:08 Consult to Nephrology Routine Consulting Provider: Handy Tidwell Reason for consultation: kyler on ckd Has provider been notified: No DS: Diagnosis Discharge Diagnosis (1) KYLER (acute kidney injury): Status: Acute DS: Summary Hospital Course Hospital Course: History of presenting illness Chief Complaint: kyler on ckd, hypertension 75-year-old female who came to the hospital because of had lab test with her primary doctor after returning from [place] and came out to be worsening of renal function from creatinine of 3.1-4.6. She denies any complaints, as per her son at bedside:? She was in [place] with her daughter and was not controlling her diet and her sugars were running above 200 range all the time.? Subsequently her insulin was adjusted but she went since she recently returned from [place]-son did tight diabetic control -her sugar seems to be improved in 150 range as per the son. He says that she still producing urine and denies any urinary complaints. But since her PCP checked the labs and her creatinine worsen since last times so sent to the hospital for further management. Patient had to 3 episode of diarrhea this week but otherwise no new complaints As per patient's son she is eating and hydrating well. Denies any new complaint of chest pain or shortness of breath or abdominal pain or fever or chills or nausea or vomiting Denies any cough Denies any weakness or numbness. Hospital course 75-year-old female patient with past medical history significant for chronic kidney disease stage 4/5, history of diabetes on insulin, hypertension, presented to [facility] due to worsening creatinine from baseline 3.1-4.6 on admission, renal ultrasound showed no obstruction patient treated with IV fluid with no significant improvement patient was followed closely by Dr. Henry from Nephrology it seems that patient has underlying chronic kidney disease due to diabetic nephropathy and hypertension serological workup has been sent report is pending nephrology recommend outpatient kidney biopsy therefore aspirin has been held since renal function remains stable and patient is asymptomatic she is being discharged home to have close outpatient follow-up with Nephrology she has been continued on all other baseline medications including diuretics. Due to chronic constipation patient has been started on Metamucil. Patient noted to have anemia of chronic disease likely related to chronic kidney disease will need outpatient Procrit as per Nephrology Time Spent with Patient Time attestation: Total time spent providing and/or coordinating discharge services: Discharge coordination time: Greater than 30 minutes Quality: Stroke Does the patient have a stroke diagnosis?: No Physical Exam Vital Signs: Vital Signs: Last Vital Signs Temp 98.1 F 04/17/21 11:30 Pulse 76 04/17/21 11:30 Resp 18 04/17/21 11:30 BP 142/67 H 04/17/21 11:30 Pulse Ox 96 04/17/21 11:30 Body Mass Index 40.1 General alert oriented x3,no acute distress. Neck supple no JVD. CVS regular rate rhythm, Respiratory lungs clear to auscultation, no respiratory distress, no wheeze, no rhonchi. Gastrointestinal abdomen soft, nontender, bowel sounds audible, no guarding , no rigidity. Extremities no pitting edema. Neuro nonfocal , speech clear. Skin no rash Psych appropriate affect DS: Data Data Completed and Pending Labs on day of discharge: Laboratory Results - last 24 hr 04/16/21 04/16/21 04/16/21 05:55 16:34 20:16 Hgb Hct Sodium Potassium Chloride Carbon Dioxide Anion Gap BUN Creatinine Estim Creat Clear Calc Estimated GFR POC Glucose 179 H 101 Random Glucose Calcium Urine Immunofixation 04/17/21 04/17/21 04/17/21 05:23 05:23 07:35 Hgb 8.5 L Hct 26.6 L Sodium 140 Potassium 3.9 D Chloride 106 Carbon Dioxide 24 Anion Gap 14 BUN 43 H Creatinine 4.14 H* Estim Creat Clear Calc 12.3 Estimated GFR 11 POC Glucose 104 Random Glucose 116 H Calcium 7.3 L Urine Immunofixation 04/17/21 11:20 Hgb Hct Sodium Potassium Chloride Carbon Dioxide Anion Gap BUN Creatinine Estim Creat Clear Calc Estimated GFR POC Glucose 159 H Random Glucose Calcium Urine Immunofixation Discharge Plan Discharge Patient Disposition: Home, Self-Care Discharge Diagnosis: Acute on chronic kidney disease stage 4/5 Referrals: Lonnie Khan MD [Primary Care Provider] - 1 Week Discharge Medications: New metoprolol succinate 25 mg Tablet Extended Release 24 Hr 25 mg PO DAILY Qty: 30 RF: 0 Metamucil Fiber Singles 3.4 gram Powder In Packet 3.4 g PO DAILY Qty: 30 RF: 0 Continued cyanocobalamin (vitamin B-12) 1,000 mcg/mL solution 1,000 mcg IM Q28D RF: 0 temazepam 30 mg capsule 30 mg PO BEDTIME PRN (Reason: Insomnia) RF: 0 amitriptyline 10 mg tablet 10 mg PO DAILY 30 Days Qty: 30 RF: 0 amlodipine 5 mg tablet 5 mg PO DAILY 30 Days Qty: 30 RF: 0 atorvastatin 40 mg tablet 40 mg PO BEDTIME Qty: 30 RF: 0 cholecalciferol (vitamin D3) 25 mcg (1,000 unit) capsule 25 mcg PO DAILY Qty: 30 RF: 0 ferrous sulfate 250 mg (50 mg iron) tablet extended release 250 mg PO DAILY 30 Days Qty: 30 RF: 0 furosemide 20 mg tablet 20 mg PO BID 30 Days Qty: 60 RF: 0 levothyroxine 25 mcg capsule 25 mcg PO DAILY Qty: 30 RF: 0 loratadine [Allergy Relief (loratadine)] 10 mg tablet 10 mg PO DAILY Qty: 30 RF: 0 pantoprazole 20 mg tablet,delayed release (DR/EC) 20 mg PO DAILY Qty: 30 RF: 0 montelukast 10 mg tablet 10 mg PO BEDTIME Qty: 30 RF: 0 (DME) pen needle, diabetic [BD Sandra 2nd Gen Pen Needle] 32 gauge x 5/32 needle See Rx Instructions .Route Qty: 50 RF: 0 tramadol 50 mg tablet 50 mg PO BEDTIME 14 Days Qty: 14 RF: 0 (DME) blood-glucose meter [FreeStyle Lite Meter] Kit See Rx Instructions .Route Qty: 1 RF: 0 (DME) FreeStyle Lite Strips Strip See Rx Instructions .ROUTE .MEDSUPPLY Qty: 100 RF: 0 (DME) lancets [FreeStyle Lancets] 28 gauge misc See Rx Instructions .ROUTE .MEDSUPPLY Qty: 100 RF: 0 Changed Novolin 70-30 FlexPen U-100 100 unit/mL (70-30) insulin pen 20 unit subcut BID 30 Days Qty: 15 RF: 0 Discontinued aspirin [Adult Low Dose Aspirin] 81 mg tablet,delayed release (DR/EC) 81 mg PO DAILY 30 Days Qty: 30 RF: 0 metoprolol tartrate 25 mg tablet 25 mg PO DAILY Qty: 30 RF: 0 Discharge Orders: Discharge Order (Routine); Ordered 04/17/21 Ordered By: Rey Batres Diet: diabetic diet Activity on Discharge: As tolerated Stand Alone Forms: Patient Portal Discharge page Care Plan Goals: Acute on chronic kidney disease hold aspirin for possible outpatient kidney biopsy, dose of Novolin insulin reduced. Health Concerns: Follow blood sugars and blood pressure closely Plan of Treatment: Outpatient follow-up with primary care physician and Nephrology Dr. Henry in next 5-7 days Assessment: As above Discharge Date/Time: 04/17/21 12:34
[2021-04-17 14:31] LABS: Calcium (PTHI) 7.2 mg/dL (8.6-10.4); PTHI 217 pg/mL (14-64)
[2021-04-17 15:16] LABS: IgA 258 mg/dL (70-320); IgG 598 mg/dL (600-1540); IgM 159 mg/dL (50-300)
[2021-04-18 14:35] LABS: Complement C3 107 mg/dL (83-193)
[2021-04-20 22:36] LABS: Anti Nuclear Antibody Screen POSITIVE (NEGATIVE); Anti Nuclear Antibody Titer 1:40 titer
[2021-04-23 23:42] LABS: Lipoprotein Asso Phospholip A2 45 (<124)
== END 2021-04-17 12:34 | disposition home or self-care (01) | DRG 683 ==
LOC: HO.ED 15:01 → HO.EDOVER 16:58 → HO.S3 20:09
PROVIDERS: Internal Medicine Nephrology; Physician Assistant; Admitting Provider Internal Medicine; Emergency Provider Emergency Medicine; PCP Internal Medicine; Visit Provider Hospitalist
DX: N17.9 Acute kidney failure, unspecified (principal); I12.0 Hypertensive chronic kidney disease with stage 5 chronic kidney disease or end stage renal disease; Z68.41 Body mass index [BMI] 40.0-44.9, adult; N18.5 Chronic kidney disease, stage 5; I16.0 Hypertensive urgency; E83.9 Disorder of mineral metabolism, unspecified; K59.00 Constipation, unspecified; E11.22 Type 2 diabetes mellitus with diabetic chronic kidney disease; E66.01 Morbid (severe) obesity due to excess calories; D63.1 Anemia in chronic kidney disease; Z20.822 Contact with and (suspected) exposure to COVID-19; Z79.4 Long term (current) use of insulin; Z79.890 Hormone replacement therapy; Z79.899 Other long term (current) drug therapy
CPT/HCPCS: 36415; 71045; 76775; 80048; 80076; 81001; 82272; 82306; 82607; 82728; 82746; 82784; 82947; 83540; 83690; 83698; 83735; 83880; 83970; 84100; 85014; 85018; 85025; 85027; 86038; 86039; 86160; 86334; 86335; 87635; 93005; 99285

== ENCOUNTER 2021-04-20 11:01 | Inpatient (IN) | payer MEDICARE, MEDICAID, SELFPAY ==
[2021-04-20] VITALS (8 sets, daily range): BP systolic 161–218; BP diastolic 50–63; PULSE 73–82; RESP 18–22; TEMP 36.3–37.1; O2SAT 87–100; BMI 39.4
--- NOTE | 2021-04-20 | ECG_ITS ---
Test Reason : DYSPNEA Blood Pressure : / mmHG Vent. Rate : 075 BPM Atrial Rate : 075 BPM P-R Int : 172 ms QRS Dur : 084 ms QT Int : 410 ms P-R-T Axes : 051 037 038 degrees QTc Int : 457 ms Normal sinus rhythm Normal ECG When compared with ECG of 20-APR-2021 12:14, No significant change was found Referred By: Rey Batres Electronically Signed By:JANIE ISAACS MD
--- NOTE | ~2021-04-20 | XR_ITS ---
EXAMINATION: XR CHEST CLINICAL INFORMATION: Central line placement COMPARISON: Chest x-ray earlier today TECHNIQUE: Frontal view of the chest was obtained. XR/XR chest 1V FINDINGS/IMPRESSION: Interval placement of right-sided jugular catheter with tip terminating within the distal SVC. No pneumothorax. Similar left-sided pleural effusion with overlying airspace disease.
--- NOTE | ~2021-04-20 | CT_ITS ---
PROCEDURE: CT GUIDED BIOPSY, KIDNEY CLINICAL INFORMATION: Nephrotic range proteinuria. Acute and chronic renal failure. COMPARISON: Renal ultrasound 04/16/2021 TECHNIQUE: Procedure and risks and benefits including bleeding, infection, injury to the kidney or adjacent structures was discussed with the patient through an court interpreter and informed consent was obtained. Patient was positioned in the left decubitus position. Limited axial images through the kidneys were performed. The right flank was prepped and draped in the usual sterile fashion. The skin and soft tissues were anesthetized with 1% lidocaine plain. Using a coaxial system, access to the lower pole of the right kidney was obtained. Three 18-gauge core biopsies were obtained. There is no complication. Patient received Versed 1 mg and fentanyl 50 mcg intravenously during the procedure. Conscious sedation was provided by a registered nurse under my direct supervision. Total sedation time was [address] examination was performed using dose optimization techniques as appropriate, variously including the following: *Automated exposure control *Adjustment of mA and/or kV according to patient size (this includes techniques or standardized protocols for targeted exams where dose is matched to indication/reason for exam; i.e. extremities or head) *Use of iterative reconstruction technique DLP: 235 mGy-cm FINDINGS: There are small bilateral pleural effusions. The heart may be enlarged. The kidneys are normal-appearing. No perinephric hematoma is seen post biopsy. There is evidence of atherosclerotic disease. CT/CT biopsy renal RT IMPRESSION: CT-guided right renal biopsy.
--- NOTE | ~2021-04-20 | XR_ITS ---
EXAMINATION: XR CHEST CLINICAL INFORMATION: Shortness of breath COMPARISON: April 14, 2021 TECHNIQUE: 2 views of the chest were obtained. FINDINGS: There is slight increase in loculated left basilar effusion. There also appears to be some disease involving the left lower lobe with air bronchograms present. This was not definitely identified on prior study. No pneumothorax. Heart normal size. No evidence of pulmonary edema. Status post previous surgery with hardware in place for right humeral fracture. There is severe degenerative change of the left shoulder with superior subluxation calcific tendinitis as well as loss of superior joint space with adjacent sclerosis. XR/XR chest 2V IMPRESSION: Increase in size of loculated left pleural effusion. Left lower lobe disease.
--- NOTE | 2021-04-20 11:25 | ED_ITS ---
HPI - SOB/Dyspnea General Chief Complaint: Dyspnea Stated Complaint: diff breathing Time Seen by Provider: 04/20/21 11:25 Source: patient Mode of arrival: ambulatory Limitations: no limitations History of Present Illness HPI Narrative: Patient was admitted for shortness of breath and renal failure. She was admitted for 5 days. Patient does not get dialysis. MD elicited complaint: shortness of breath Onset (ago): day(s) Context: occurred during exertion Timing: constant Severity: moderate Exacerbating factors: coughing Associated symptoms: denies other symptoms Related Data Home Medications Medication Instructions Recorded Confirmed temazepam 30 mg capsule 30 mg PO BEDTIME PRN 04/12/21 04/20/21 cyanocobalamin (vitamin B-12) 1,000 mcg IM Q28D 04/14/21 04/20/21 1,000 mcg/mL injection solution Previous Rx's Medication Instructions Recorded amitriptyline 10 mg tablet 10 mg PO DAILY 30 Days #30 tab 04/12/21 amlodipine 5 mg tablet 5 mg PO DAILY 30 Days #30 tab 04/12/21 atorvastatin 40 mg tablet 40 mg PO BEDTIME #30 tab 04/12/21 cholecalciferol (vitamin D3) 25 25 mcg PO DAILY #30 cap 04/12/21 mcg (1,000 unit) capsule ferrous sulfate 250 mg (50 mg 250 mg PO DAILY 30 Days #30 tab 04/12/21 iron) tablet,extended release furosemide 20 mg tablet 20 mg PO BID 30 Days #60 tab 04/12/21 levothyroxine 25 mcg capsule 25 mcg PO DAILY #30 cap 04/12/21 loratadine 10 mg tablet (Allergy 10 mg PO DAILY #30 tab 04/12/21 Relief (loratadine)) montelukast 10 mg tablet 10 mg PO BEDTIME #30 tab 04/12/21 pantoprazole 20 mg tablet,delayed 20 mg PO DAILY #30 tab 04/12/21 release pen needle, diabetic 32 gauge x #50 ea 04/12/21 (BD Sandra 2nd Gen Pen Needle) tramadol 50 mg tablet 50 mg PO BEDTIME 14 Days #14 tab 04/12/21 blood sugar diagnostic (FreeStyle #100 ea 04/13/21 Lite Strips) blood-glucose meter (FreeStyle #1 ea 04/13/21 Lite Meter) lancets 28 gauge (FreeStyle #100 ea 04/13/21 Lancets) insulin NPH-regular 70-30 U-100 20 unit SUBCUT BID 30 Days #15 ml 04/17/21 insulin 100 unit/mL subcutaneous pen (Novolin 70-30 FlexPen U-100 Insulin) metoprolol succinate 25 mg 25 mg PO DAILY #30 tab 04/17/21 tablet,extended release 24 hr psyllium husk (aspartame) 3.4 gram 3.4 g PO DAILY #30 ea 04/17/21 oral powder packet (Metamucil Fiber Singles) Allergies Allergy/AdvReac Type Severity Reaction Status Date / Time No Known Allergies Allergy Verified 04/14/21 11:17 Review of Systems Constitutional: Constitutional: Reports no additional constitutional complaints Eyes: Eyes: Reports no additional eye complaints ENT: Denies dizziness Cardiovascular: Cardiovascular: Reports no additional cardiovascular complaints Respiratory: Respiratory: Reports as per HPI Gastrointestinal: Gastrointestinal: Reports no additional gastrointestinal complaints Genitourinary: Genitourinary: Reports no additional female genitourinary complaints Musculoskeletal: Musculoskeletal: Reports no additional musculoskeletal complaints Integumentary/Breasts: Skin/Breast: Denies rash Neurologic: Reports system reviewed and no additional complaints, except as documented, Denies dizziness and Denies Sensory deficit (Neuro) Psychiatric: Psychiatric: Denies anxiety PMFSH Past Medical History Medical History Arthritis Diabetes DMII (diabetes mellitus, type 2) HTN (hypertension) Hypertension Toe amputee Surgical History Hx of appendectomy Social History Social History Household Members: Other Household Members Other:: self, son lives close by Housing: Apartment Do you presently have visiting nurse or other home services: No Alcohol intake: never Patient Tobacco Use Status: Never used Tobacco Tobacco use type: Cigarette e-Cigarette/Vaping Use: Never Used Second Hand Smoke Exposure: No Use of substances other than those prescribed or required for medical reasons: No Advance Directives: No service: No Current occupational status: unemployed Physical Exam Vital Signs: Vital Signs: Last Vital Signs Temp 98.4 F 04/20/21 15:50 Pulse 78 04/20/21 16:29 Resp 18 04/20/21 16:29 BP 180/63 H 04/20/21 16:29 Pulse Ox 97 04/20/21 16:29 Body Mass Index 39.4 Const: Other: obese short of breath Nutritional Appearance: obese Orientation/consciousness: oriented to person and patient oriented x3 Limitations: no limitations HENMT: Head: Yes normal to inspection Ears: external ears normal General nose exam: Normal external nose present Mouth: Normal oral and palatal mucosa present and oropharynx normal Throat: Yes posterior oropharynx normal Eyes: General: appearance normal, both eyes and all related structures Neck: Other: supple, slight JVD Neck: Yes normal visual inspection Chest: Chest palpation & inspection: normal inspection of the chest Resp: Other: rales left greater than right Cardio: Jugular venous distension: no JVD Rate: regular rate Rhythm: regular rhythm Heart sounds: S1 normal heart sound present and S2 normal heart sound present GI: Inspection: Yes normal to inspection Palpation (GI): Soft to palpation, nontender and No hepatosplenomegaly present Auscultation: normal bowel sounds : General: Yes no CVA tenderness Back/Spine/Pelvis: Back: no CVA tenderness Skin: General skin exam: no rashes or lesions noted Neuro: General: oriented to person and patient oriented x3 Cranial nerves: Yes CN's II-XII intact bilaterally Motor exam (neuro): 5/5 motor strength present throughout Sensory Exam: No Sensory deficit (Neuro) Extrem: General: Yes normal to inspection Psych: Appearance: grossly normal Course Reevaluation(s) Reevaluation #1: patient with left sided pneumonia, the elevated creatinine is old and not due to sepsis, The elevated troponin likely due to renal failure Time: 12:51 MDM - SOB/Dyspnea Lab Data Result diagrams: 04/20/21 12:18 04/20/21 12:18 Labs: Lab Results 04/20/21 04/20/21 04/20/21 Range/Units 12:18 12:18 12:18 WBC 12.9 H (4.8-10.8) X10*3/uL RBC 2.85 L (4.20-5.50) X10*6/uL Hgb 8.6 L (12.0-16.0) g/dl Hct 26.9 L (37-47) % MCV 94.4 (80-98) fL MCH 30.2 (27.0-33.0) pg MCHC 32.0 (31.0-35.0) g/dl RDW 14.2 (11.0-16.0) % Plt Count 242 (160-400) X10*3/uL MPV 9.6 (9.4-12.3) fL Immature Gran % (Auto) 0.5 H (0.0-0.4) % Neut % (Auto) 81.6 H (45-73) % Lymph % (Auto) 10.1 L (20-40) % [place] % (Auto) 5.5 (2-11) % Eos % (Auto) 1.9 (0-4) % Baso % (Auto) 0.4 (0-2) % Lymph # (Auto) 1.3 (1.2-4.9) X10*3/uL [place] # (Auto) 0.7 (0.1-1.2) X10*3/uL Eos # (Auto) 0.3 (0.0-0.4) X10*3/uL Baso # (Auto) 0.1 (0.0-0.2) X10*3/uL Abs Immat Gran (auto) 0.06 H (0.00-0.03) X10*3/uL Absolute Neuts (auto) 10.5 H (2.0-8.3) X10*3/uL Absolute Nucleated RBC 0.000 (0.0-0.012) X10*3/uL Nucleated RBC % (auto) 0.0 (0.0-0.2) /100WBC Sodium 137 (135-145) mmol/L Potassium 3.9 (3.3-5.1) mmol/L Chloride 102 (96-108) mmol/L Carbon Dioxide 22 (22-29) mmol/L Anion Gap 17 (12-20) BUN 42 H (9-16) mg/dL Creatinine 4.41 H* (0.5-1.4) mg/dL Estim Creat Clear Calc 11.4 Estimated GFR 10 Random Glucose 199 H (60-115) mg/dL Calcium 7.4 L (8.4-10.2) mg/dL Troponin I High Sens 137.3 H* (<3.5-17.0) ng/L B-Natriuretic Peptide 642 H (<100) pg/mL Influenza Type A (PCR) (Negative) Influenza Type B (PCR) (Negative) RSV RNA Qual (PCR) (Negative) SARS-CoV-2 RNA (RT-PCR) (Negative) 04/20/21 Range/Units 12:18 WBC (4.8-10.8) X10*3/uL RBC (4.20-5.50) X10*6/uL Hgb (12.0-16.0) g/dl Hct (37-47) % MCV (80-98) fL MCH (27.0-33.0) pg MCHC (31.0-35.0) g/dl RDW (11.0-16.0) % Plt Count (160-400) X10*3/uL MPV (9.4-12.3) fL Immature Gran % (Auto) (0.0-0.4) % Neut % (Auto) (45-73) % Lymph % (Auto) (20-40) % [place] % (Auto) (2-11) % Eos % (Auto) (0-4) % Baso % (Auto) (0-2) % Lymph # (Auto) (1.2-4.9) X10*3/uL [place] # (Auto) (0.1-1.2) X10*3/uL Eos # (Auto) (0.0-0.4) X10*3/uL Baso # (Auto) (0.0-0.2) X10*3/uL Abs Immat Gran (auto) (0.00-0.03) X10*3/uL Absolute Neuts (auto) (2.0-8.3) X10*3/uL Absolute Nucleated RBC (0.0-0.012) X10*3/uL Nucleated RBC % (auto) (0.0-0.2) /100WBC Sodium (135-145) mmol/L Potassium (3.3-5.1) mmol/L Chloride (96-108) mmol/L Carbon Dioxide (22-29) mmol/L Anion Gap (12-20) BUN (9-16) mg/dL Creatinine (0.5-1.4) mg/dL Estim Creat Clear Calc Estimated GFR Random Glucose (60-115) mg/dL Calcium (8.4-10.2) mg/dL Troponin I High Sens (<3.5-17.0) ng/L B-Natriuretic Peptide (<100) pg/mL Influenza Type A (PCR) NEGATIVE (Negative) Influenza Type B (PCR) NEGATIVE (Negative) RSV RNA Qual (PCR) NEGATIVE (Negative) SARS-CoV-2 RNA (RT-PCR) NEGATIVE (Negative) Imaging Data Chest x-ray: Radiologist's impression: FINDINGS: There is slight increase in loculated left basilar effusion. There also appears to be some disease involving the left lower lobe with air bronchograms present. This was not definitely identified on prior study. No pneumothorax. Heart normal size. No evidence of pulmonary edema. Status post previous surgery with hardware in place for right humeral fracture. There is severe degenerative change of the left shoulder with superior subluxation calcific tendinitis as well as loss of superior joint space with adjacent sclerosis. XR/XR chest 2V IMPRESSION: Increase in size of loculated left pleural effusion. Left lower lobe disease. ECG Data Attestation: I personally reviewed and interpreted this ECG as follows: Interpretation: sinus rate of 75, no st or twave changes Procedures Procedure Narrative Procedure Narrative: Proper hand hygiene, cap, gown and sterile gloves place worn. Patient prepped and draped in sterile fashion, 1% lidocaine used for anesthesia, sterile US cover used, central line placed using US. Central line 16cm at the neck. Sutured in place Critical Care Time Critical Care Time Critical Care Time: Yes Total Critical Care Time: 40 Attestation: I spent 40 minutes of critical care, with interventions, assessments, speaking to patient, consultants, and family. Discharge Plan Discharge Clinical Impression: KYLER (acute kidney injury) Pneumonia Qualifiers: Pneumonia type: due to unspecified organism Laterality: left Lung location: lower lobe of lung Qualified Code(s): J18.9 - Pneumonia, unspecified organism Patient Disposition: Admitted As Inpatient
--- NOTE | 2021-04-20 11:37 | ECG_ITS ---
Test Reason : DYSPNEA Blood Pressure : / mmHG Vent. Rate : 078 BPM Atrial Rate : 078 BPM P-R Int : 176 ms QRS Dur : 078 ms QT Int : 406 ms P-R-T Axes : 017 043 054 degrees QTc Int : 462 ms Normal sinus rhythm with sinus arrhythmia Normal ECG No significant changes seen Referred By: Rey Batres Electronically Signed By:JANIE ISAACS MD
[2021-04-20 12:24] LABS: MANUAL DIFF FLAG NO
[2021-04-20 12:25] LABS: Basophils Absolute Auto 0.1 X10*3/uL (0.0-0.2); Basophils Percent Auto 0.4 % (0-2); Eosinophils Absolute Auto 0.3 X10*3/uL (0.0-0.4); Eosinophils Percent Auto 1.9 % (0-4); Hematocrit 26.9 % (37-47); Hemoglobin 8.6 g/dl (12.0-16.0); Imm Gran Abs Auto 0.06 X10*3/uL (0.00-0.03); Imm Gran Pct Auto 0.5 % (0.0-0.4); Lymphocytes Absolute Auto 1.3 X10*3/uL (1.2-4.9); Lymphocytes Percent Auto 10.1 % (20-40); Mean Corpuscular Hemoglobin 30.2 pg (27.0-33.0); Mean Corpuscular Volume 94.4 fL (80-98); Mean Platelet Volume 9.6 fL (9.4-12.3); Monocytes Absolute Auto 0.7 X10*3/uL (0.1-1.2); Monocytes Percent Auto 5.5 % (2-11); Neutrophils Absolute Auto 10.5 X10*3/uL (2.0-8.3); Neutrophils Percent Auto 81.6 % (45-73); Platelet Count 242 X10*3/uL (160-400); Red Blood Count 2.85 X10*6/uL (4.20-5.50); Red Cell Distribution Width 14.2 % (11.0-16.0); White Blood Count 12.9 X10*3/uL (4.8-10.8)
--- NOTE | 2021-04-20 12:35 | PC.NURSE ---
patient a&ox3, labs drawn, nail technician applied nsr 70s, pt o2 sat 93% on room air, pt is not o2 dependent at home- will monitor for further desat, family at bedside, covid swab performed, patient not c/o pain or discomfort at this time, will continue to monitor.
[2021-04-20 12:45] LABS: Anion Gap 17 (12-20); Blood Urea Nitrogen 42 mg/dL (9-16); Calcium 7.4 mg/dL (8.4-10.2); Carbon Dioxide 22 mmol/L (22-29); Chloride 102 mmol/L (96-108); Creatinine Clr Calc Pharmacy 11.4; Estimated Glomerular Filt Rate 10; Glucose Random 199 mg/dL (60-115); Potassium 3.9 mmol/L (3.3-5.1); Sodium 137 mmol/L (135-145)
[2021-04-20 12:49] LABS: B Type Natriuretic Peptide 642 pg/mL (<100); Troponin-I High Sensitivity 137.3 ng/L (<3.5-17.0)
[2021-04-20 13:06] LABS: Influenza A PCR NEGATIVE (Negative); Influenza B PCR NEGATIVE (Negative); Resp Syncy Virus RNA Qual PCR NEGATIVE (Negative); SARS COV2 PCR INHOUSE NEGATIVE (Negative)
--- NOTE | 2021-04-20 13:36 | PHA.MEDREC ---
Pharmacy Consult ? Medication Reconciliation Pharmacy has completed the medication reconciliation. Patient was discharged 04/17/2021 from here. Patient's family reports patient started taking the metorpolol succinate as stated on discharge summary. Patient is still taking all other medications. Amina Cordova, PharmD
--- NOTE | 2021-04-20 13:56 | P.HPHOSP_ITS ---
History of Present Illness Date of Service: 04/20/21 Attending physician on admission: Rey Batres Chief Complaint: Shortness of breath 75-year-old female patient with past medical history significant for chronic kidney disease stage 4/5, history of diabetes on insulin, hypertension, was r ecently discharged from [facility] on April 17/2021 after being evaluated for worsening creatinine from baseline 3.1-4.6 on admission, patient was treated with IV fluids, renal ultrasound showed no obstruction her creatinine remained elevated around 4.4 patient was evaluated closely by Nephr ology Dr. Henry and it was felt that patient has underlying chronic kidney disease due to diabetic nephropathy and hypertension serological workup was done, patient was discharged home with recommendation to have outpatient follow- up with Nephrology for renal biopsy, patient returned today due to symptoms of shortness of breath worse with activity associated with cough productive of clear phlegm and nausea patient complaining of constipation with no bowel movement in last several days, patient does have history of chronic constipation, she denies chest pain, no fever, no chills , no sick contacts, she denies any abdominal pain. In the emergency room workup revealed an elevated troponin and BNP kidney function remains stable around 4.6, chest x-ray showed left pleural effusion slightly worse from before with air bronchograms, WBC count is mildly elevated around 13,000, oxygenation is stable, patient noted to have elevated blood pressure as per granddaughter patient took her blood pressure medications this a.m. and she is compliant with all her medications. Patient treated with IV antibiotics in the emergency room and now being admitted to [facility] with concern for pneumonia, worsening left pleural effusion and shortness of breath for further workup and treatment. Review of Systems Review of Systems: General no headache, no dizziness, no fever chills. CVS no chest pain, no palpitation. Respiratory cough productive of white phlegm Gastrointestinal nausea , no vomiting, no abdominal pain, positive constipation Musculoskeletal no pain Skin denies rash no urinary frequency, or urgency Yes all other systems are reviewed and are negative [facility] Medical History Arthritis Diabetes DMII (diabetes mellitus, type 2) HTN (hypertension) Hypertension Toe amputee Pertinent family history: No family history of premature coronary artery disease Surgical History Hx of appendectomy Social History Household Members: None Household Members Other:: self, son lives close by Housing: House Do you presently have visiting nurse or other home services: No Alcohol intake: never Patient Tobacco Use Status: Never used Tobacco Tobacco use type: Cigarette e-Cigarette/Vaping Use: Never Used Second Hand Smoke Exposure: No service: No Current occupational status: unemployed and retired Meds Allergies Allergy/AdvReac Type Severity Reaction Status Date / Time No Known Allergies Allergy Verified 04/14/21 11:17 Active Medications: Current Medications Acetaminophen (Acetaminophen 325 Mg Tablet) 650 mg PO Q6H PRN PRN Reason: Pain, Mild (Pain Scale 1-3) Amitriptyline HCl (Amitriptyline Hcl 10 Mg Tablet) 10 mg PO DAILY MARKIE Amlodipine Besylate (Amlodipine Besylate 5 Mg Tablet) 5 mg PO DAILY MARKIE; Protocol Atorvastatin Calcium (Atorvastatin Calcium 40 Mg Tablet) 40 mg PO BEDTIME MARKIE Cyanocobalamin (Cyanocobalamin (Vitamin B-12) 1,000 Mcg/Ml Vial) 1,000 mcg IM Q28D MARKIE Dextrose (Dextrose 50 % 25 Gm/50 Ml Vial) 25 gm IVPUSH Q15M PRN; Protocol PRN Reason: per Hypoglycemia Standing Ord. Furosemide (Furosemide 40 Mg/4 Ml Vial) 40 mg IVPUSH Q12H MARKIE; Protocol Glucose (Glucose Gel 15 Gm Gel..Gram.) 15 gm PO Q15M PRN; Protocol PRN Reason: per Hypoglycemia Standing Ord. Heparin Sodium (Porcine) (Heparin Sodium,Porcine 5,000 Unit/Ml Vial) 5,000 unit SUBCUT Q12H [facility] Azithromycin 500 mg/ Sodium (Chloride) 250 mls @ 125 mls/hr IV ONCE ONE Stop: 04/20/21 14:40 Insulin Glargine (Insulin Glargine,Hum.Rec.Anlog 100 Unit/Ml 10 Ml Vial) 8 unit SUBCUT BEDTIME MARKIE Insulin Human Lispro (Insulin Lispro 100 Unit/Ml 3 Ml Vial) 0 unit SUBCUT QIDACHS MARKIE; Protocol Levothyroxine Sodium (Levothyroxine Sodium 25 Mcg Tablet) 25 mcg PO DAILY@0630 MARKIE Melatonin (Melatonin 3 Mg Tablet) 3 mg PO BEDTIME PRN PRN Reason: Insomnia Metoprolol Succinate (Metoprolol Succinate Er 25 Mg Tab.Er.24h) 25 mg PO DAILY MARKIE; Protocol Montelukast Sodium (Montelukast Sodium 10 Mg Tablet) 10 mg PO BEDTIME MARKIE Non-Formulary Medication (Temazepam) 30 mg PO BEDTIME PRN PRN Reason: Insomnia Ondansetron HCl (Ondansetron Hcl 4 Mg/2 Ml Vial) 4 mg IVPUSH Q8H PRN PRN Reason: Nausea and Vomiting Pharmacy Consult (Consult Rx Perform Med Rec) 1 each MISCELLANE ONCE PRN PRN Reason: Consult order Psyllium Hydrophilic Mucilloid (Psyllium Seed 3.4 Gm Powd.Pack) 3.4 gm PO DAILY MARKIE Sodium Chloride (0.9 % Sodium Chloride Flush 3 Ml Syringe) 3 ml IVFLUSH QSHIFT MARKIE Tramadol HCl (Tramadol Hcl 50 Mg Tablet) 50 mg PO BEDTIME MARKIE Vitamin D (Cholecalciferol (Vitamin D3) 25 Mcg Tablet) 25 mcg PO DAILY [facility] Home Medications Medication Instructions Recorded Confirmed Last Taken Type temazepam 30 mg capsule 30 mg PO BEDTIME PRN 04/12/21 04/20/21 04/13/21 History cyanocobalamin (vitamin B-12) 1,000 mcg IM Q28D 04/14/21 04/20/21 04/14/21 History 1,000 mcg/mL injection solution Physical Exam Vital Signs and Narrative: Vital Signs: Last Vital Signs Temp 98.7 F 04/20/21 12:00 Pulse 77 04/20/21 12:00 Resp 19 04/20/21 12:00 BP 218/55 H 04/20/21 12:00 Pulse Ox 93 04/20/21 12:00 Body Mass Index 39.4 General patient resting comfortably in no acute distress. Neck supple no JVD. CVS regular rate rhythm, Respiratory lungs left base crackles,no respiratory distress, no wheeze, no rhonchi. Gastrointestinal abdomen soft, nontender, bowel sounds audible, no guarding , no rigidity. Extremities bilateral edema. no CVA tenderness Neuro nonfocal , speech clear. Skin no rash Psych appropriate affect Results Labs CBC and Chem 7: 04/21/21 05:48 04/21/21 05:48 Labs: Laboratory Results - last 24 hr 04/20/21 04/20/21 04/20/21 12:18 12:18 12:18 MCV 94.4 MCH 30.2 MCHC 32.0 RDW 14.2 Plt Count 242 MPV 9.6 Immature Gran % (Auto) 0.5 H Neut % (Auto) 81.6 H Lymph % (Auto) 10.1 L Frederick % (Auto) 5.5 Eos % (Auto) 1.9 Baso % (Auto) 0.4 Lymph # (Auto) 1.3 Frederick # (Auto) 0.7 Eos # (Auto) 0.3 Baso # (Auto) 0.1 Abs Immat Gran (auto) 0.06 H Absolute Neuts (auto) 10.5 H Absolute Nucleated RBC 0.000 Nucleated RBC % (auto) 0.0 Anion Gap 17 Estim Creat Clear Calc 11.4 Estimated GFR 10 Random Glucose 199 H Calcium 7.4 L Troponin I High Sens 137.3 H* B-Natriuretic Peptide 642 H Imaging Radiologist's Impressions: Impressions Chest X-Ray 04/20/21 11:37 IMPRESSION: Increase in size of loculated left pleural effusion. Left lower lobe disease. Assessment and Plan (1) Pneumonia: Qualifiers: Laterality: left Lung location: lower lobe of lung Pneumonia type: due to unspecified organism Qualified Code(s): J18.9 - Pneumonia, unspecified organism Status: Acute (2) Hypothyroid: Qualifiers: Hypothyroidism type: unspecified Qualified Code(s): E03.9 - Hypothyroidism, unspecified Status: Acute (3) HLD (hyperlipidemia): Qualifiers: Hyperlipidemia type: mixed hyperlipidemia Qualified Code(s): E78.2 - Mixed hyperlipidemia Status: Acute (4) GERD (gastroesophageal reflux disease): Qualifiers: Esophagitis presence: without esophagitis Qualified Code(s): K21.9 - Gastro-esophageal reflux disease without esophagitis Status: Acute (5) CAD (coronary artery disease): Qualifiers: Associated angina: without angina Coronary Disease-Associated Artery/Lesion type: ambler artery [place] vs. transplanted heart: ambler heart Qualified Code(s): I25.10 - Atherosclerotic heart disease of ambler coronary artery without angina pectoris Status: Acute (6) Obese: Qualifiers: Body mass index: BMI 39.0-39.9 Obesity classification: adult class 2 (BMI 35 - 39.9) Obesity type: due to excess calories Serious obesity comorbidity presence: with serious comorbidity Qualified Code(s): E66.01 - Morbid (severe) obesity due to excess calories; Z68.39 - Body mass index [BMI] 39.0-39.9, adult Status: Acute (7) Chronic kidney disease, stage 4 (severe): Status: Acute 75-year-old female with past medical history of chronic kidney disease stage 4, history of diabetes on insulin, hypertension recently discharged from [facility] on 04/17 presented to with symptoms of shortness of breath wors e with activity, associated with cough no fevers no chills, denies chest pain workup in the emergency room revealed leukocytosis and left base worsening effusion and air bronchogram, patient also noted to have elevated BNP and troponin. Shortness of breath Likely multifactorial with possible pneumonia, fluid overload /chf, question cardiac ischemia history of coronary artery disease. Will place patient in telemetry Treat with IV antibiotics ceftriaxone and azithromycin, follow blood cultures an d CBC Give IV Lasix 40 b.i.d. Obtain echocardiogram/repeat serial troponin Continue patient on beta-blockers, statins, aspirin on hold due to renal biopsy Diabetes on insulin Diabetic diet/low-dose Lantus 8 units will check point of care blood sugars and add insulin sliding scale hypertension urgency : Noted elevated blood pressures in emergency, as per granddaughter patient is compliant with medication Will treat with nitropaste, continue amlodipine and metoprolol. Follow BP closely Hypercholesteremia :continue atorvastatin. Anemia of chronic disease: Iron studies 04/14/21 not consistent with iron deficiency anemia ferritin 380 normal B12 and folate on iron supplements, initiate Procrit as per nephro Stool for occult blood negative 04/14 will repeat stool guaiac Hematocrit stable since last admission Chronic kidney disease stage 4 likely due to diabetic and hypertensive nephro louis, being followed by Nephrology they recommend renal biopsy will continue to hold aspirin, has normal complement and immunofixation, positive GOMEZ , other serologies pending. Obesity recommend low-calorie diet dvt prophylax : s/c heparin Quality Stroke Does the patient have a stroke diagnosis?: No VTE Prior VTE?: No VTE Risk Level:: Medical - moderate - high VTE Device Contraindication: Treatment Not Indicated VTE Drug Contraindication: N/A - Med Ordered
--- NOTE | 2021-04-20 14:00 | CA_ITS ---
Transthoracic Echocardiogram Patient (Last, First, Middle): Carolina Wright, Gender: Female Date of : 1945 Age: 75 Procedure Date: 04/20/2021 Procedure Type: Transthoracic Echocardiogram Location: [facility] Height: 152.4 cm Weight: 91.63 kg BSA: 1.87 m2 Heart Rate: bpm BP: 218 / 55 mmHg Program Trainer: Referring MD: Rey Batres MD Symptoms: chf/elevated trop Study Quality: Fair ECG Rhythm: Sinus Conclusions: - Normal left ventricular size and systolic function. - E/E prime ratio is >15, consistent with elevated filling pressures. - Normal right ventricular cavity size and systolic function. - Mild pulmonary hypertension is present. Findings Left Ventricle Normal left ventricular size and systolic function. There is mildly increased left ventricular wall thickness. The visually estimated ejection fraction is between 60-65%. Abnormal diastolic function is noted. Spectral Doppler is indicative of a pseudonormal filling pattern. E/E prime ratio is >15, consistent with elevated filling pressures. Right Ventricle Normal right ventricular cavity size and systolic function. Atria The left atrium is normal in size. Aortic Valve Normal aortic valve structure and function. There is no aortic valve stenosis. There is no aortic valve regurgitation. Mitral Valve Normal mitral valve structure and function. There is trace mitral valve regurgitation. There is no mitral valve stenosis. Pulmonic Valve The pulmonic valve is likely normal. Tricuspid Valve Normal tricuspid valve structure and function. There is trace tricuspid valve regurgitation. Normal right atrial pressure. Mild pulmonary hypertension is present. Great Vessels All visible segments of the aorta are normal in size. The visualized portions of the pulmonary artery and branches are normal. Venous The inferior vena cava is normal in size and collapses greater than 50% with inspiration. Pericardium/Pleural Normal pericardial structure. There is no evidence of pericardial effusion. Prior Study Comparison No prior study available for comparison. Measurements 2D Linear Measurements IVSd: 1.00 0.6-0.9/0.6-1.0 cm LVIDd: 4.22 3.9-5.3/4.2-5.9 cm LVIDd Index: 2.26 2.4-3.2/2.2-3.1 cm/m2 LVIDs: 2.66 2.0-3.6 cm LVPWd: 0.99 0.7-1.1 cm Ao Root: 2.90 2.1-3.5 cm LA Diam: 3.90 2.7-3.8/3.0-4.0 cm LAIDs Index: 2.09 1.5-2.3 cm/m2 LV Mass: 170.90 67-162/88-224 g LV Mass Index: 91.39 43-95/49-115 g/m2 LVOT Diam: 2.00 3.0+(-)1.3 cm 2D Systolic Function EF 4C: 56.80 >55% EF 2C: 55.80 >55% EF BiP: 55.70 >55% Mitral Valve MV Pk E: 1.25 MV PK A: 1.05 MV Decel Time: 128.00 E/A: 1.20 E'Lateral: 7.29 E'Medial: 5.87 E/E' Med: 21.30 E/E' Lat: 17.10 PHT: 38.00 MVA PHT: 5.79 Decel [place]: 9.77 Aortic Valve AoV Pk Miguelito: 1.64 AoV Mn Miguelito: 1.03 AoV VTI: 0.37 AoV Pk Grad: 11.00 Aov Mn Grad: 5.00 NITA Cont.VTI: 2.02 LVOT LVOT Pk Miguelito: 0.95 LVOT Mn Miguelito: 0.65 LVOT VTI: 0.24 LVOT Pk Grad: 4.00 LVOT Mn Grad: 2.00 LVOT Diam: 2.00 LVOT Area: 3.14 Diastolic Function MV Pk E: 1.25 MV Pk A: 1.05 E/A: 1.20 E'Medial: 5.87 E/E' Med: 21.30 E' Laterial: 7.29 E/E' Lat: 17.10 Tricuspid Valve TR Pk Miguelito: 2.86 TR Pk Grad: 33.00 RVSP: 41.00 Great Vessels Aorta Ao Root-2D: 2.90 2.0-3.7 cm Ao Asc: 3.00 2.1-3.4 cm Pulmonary Valve PV Pk Miguelito: 0.98 Peak PV Grad: 4.00 Updated in Other Vendor System with Status of Final Semaj Hayes MD electronically signed on 04/20/2021 7:10:57 PM with status of Final
--- NOTE | 2021-04-20 15:51 | PC.NURSE ---
pt difficult stick, this nurse as well as 2 other nurses attempted to get iv sites as well as the provider using us, pt to have central line placed
--- NOTE | 2021-04-20 16:29 | PC.NURSE ---
Addendum entered by Dhara Figueroa RN 04/20/21 16:44: all ports flushed by provider, cxr ordered Original Note: patient being prepared with steril drape for central line insertion 1630 patient neck being numbed by provider 1632 access to IJ has been obtained, catheter is being inserted 1635 guide wire removed 1636 provider suturing in central line 1641
[2021-04-20] MEDS: cefTRIAXone sodium 1 GM in 0.9 % Sodium Chloride 50 ML IV (18:15)
--- NOTE | 2021-04-20 18:15 | PC.NURSE ---
placement of central line cleared by dr ibarra via cxr, labs drawn, iv antibiotics to be hung per order
[2021-04-20 18:22] LABS: Lactic Acid 0.9 mmol/L (0.5-2.0)
[2021-04-20 18:33] LABS: Troponin-I High Sensitivity 119.9 ng/L (<3.5-17.0)
[2021-04-20] MEDS: Azithromycin 500 MG in 0.9 % Sodium Chloride 250 ML 125 MG IV (18:50)
[2021-04-20 19:02] LABS: Glucose, Whole Blood 161 mg/dL (60-115)
[2021-04-20] MEDS: Nitroglycerin 2 % Oint 1 GM Packet 1 INCH TRANSDERMA (19:06)
[2021-04-20] MEDS: Furosemide 40 MG/4 ML VIAL IVPUSH (19:06)
[2021-04-20] MEDS: amLODIPine Besylate 5 MG TABLET PO (19:06)
[2021-04-20] MEDS: Insulin Lispro 100 UNIT/ML 3 ML VIAL SUBCUT ×2 (19:07→20:58)
--- NOTE | 2021-04-20 19:12 | PC.NURSE ---
patient medicated per order turned/positioned to comfort, cardiac nurse specialist nsr 70s, will continue to monitor.
--- NOTE | 2021-04-20 20:41 | PC.NURSE ---
patient a&ox3, pt assisted to bathroom by rn, patient given po per pt request.
[2021-04-20 20:51] LABS: Glucose, Whole Blood 164 mg/dL (60-115)
[2021-04-20] MEDS: traMADoL HCL 50 MG TABLET PO (20:57)
[2021-04-20] MEDS: Montelukast Sodium 10 MG TABLET PO (20:57)
[2021-04-20] MEDS: Atorvastatin Calcium 40 MG TABLET PO (20:57)
[2021-04-20] MEDS: Insulin Glargine,Hum.rec.anlog 100 UNIT/ML 10 ML VIAL 8 UNIT SUBCUT (20:58)
--- NOTE | 2021-04-20 21:01 | PC.NURSE ---
patient a&ox3, ekg monitor tech nsr 80s, vss, pt remains on 3l o2 nc and desats to low 80s when off of o2, pt speaking with case management with certified court/medical interpreter at bedside, evening meds given- pt eating snack, will continue to monitor.
--- NOTE | 2021-04-20 21:13 | CONS_ITS ---
DATE OF SERVICE: REASON FOR CONSULTATION: I was asked to see the patient to assist in evaluation and management of patient's advanced kidney dysfunction as reflected by BUN and creatinine of 42 and 4.41 today. Her baseline creatinine seems to be in the 4 to 4.5 range. HISTORY OF PRESENT ILLNESS: In summary, the patient is a 75-year-old female, who was just discharged from the hospital 2 days ago. She was admitted with fluid overload and advanced kidney dysfunction. There is mention made that her baseline creatinine was around 3 and during the hospital course, it was mentioned that she was in the 4 to 4.5 range. She was treated for severe hypertension and her diabetes, and there was discussion about doing a diagnostic kidney biopsy as an outpatient to make a definitive diagnosis to rule out nondiabetic causes for advanced kidney disease. Her urine studies showed that she had about 10 g protein in the urine, and serologies thus far are negative or normal. Her aspirin was discontinued. Her blood pressure was under control and her volume status was under control, so she was discharged. She was supposed to have followup early next week and again possibility of a kidney biopsy. She now re-presented to the hospital complaining of increasing shortness of breath and elevated blood pressure. In the emergency room, she was treated with some IV diuretics and she was started on antibiotics for question of a pneumonia. Her chest x-ray showed what appeared to be pneumonia as well as pleural effusion, The patient is a poor historian, but other than the shortness of breath and elevated blood pressure at home, nothing else could be delineated from her. MEDICATIONS ON ADMISSION: We are trying to track down to see if she was continued on the medications that she is supposed to be discharged on. ALLERGIES: SHE HAS NO KNOWN DRUG ALLERGIES. MEDICATIONS: Current medications noted in the MAR. SOCIAL HISTORY: She is nonsmoker and nondrinker. No illicit drug use. PAST MEDICAL HISTORY: Notable for diabetes and hypertension. She had toe amputation in the past and advanced kidney disease, although again we are not clear about her baseline creatinine. PHYSICAL EXAMINATION: VITAL SIGNS: Blood pressure was as high as 218/55, presently is 180/60. Head is atraumatic and normocephalic. NECK: Supple. Mucous membranes are moist. LUNGS: Decreased breath sounds at the bases. . CARDIAC: Regular rate and rhythm. ABDOMEN: Soft. EXTREMITIES: 1+ edema. There is no asterixis. LABORATORY DATA: Sodium 137, potassium 3.9, chloride 102, bicarb 22, BUN 42, creatinine 4.41. As mentioned, her creatinine was 4.0 to 4.5 during hospitalization from April 14 to the time of discharge on the . There is mention made of a creatinine of 3.1 in the past, although I cannot track that number down from the EHR. Hemoglobin 8.6, hematocrit 26.9, white blood cell count 12.9, and platelet count 242. Urine studies mention she had urine albumin to creatinine ratio of 10 g of albumin per gram of creatinine. Serologies including GOMEZ and ANCA are pending. Her serum immunoelectrophoresis showed no monoclonal spike. Her C3 and C4 are within normal range. Hepatitis B and C serologies are pending. She had an ultrasound during the last admission showing the right kidney 9 cm, left kidney 10 cm. IMPRESSION: A 75-year-old diabetic with advanced renal dysfunction of unclear duration, readmitted to the hospital for increasing blood pressure and shortness of breath and question of pneumonia. advanced renal dysfunction. In reviewing serologies, I did not see an ANCA or hepatitis B and C serologies, we will order these. Aspirin has been held for possible kidney biopsy early next week. Most likely she has diabetic nephropathy, but other causes need to be ruled out and we will consider doing a kidney biopsy. 1. Shortness of breath. Question of congestive heart failure and/or pneumonia. She had been treated for both. 2. Hypertension. We will restart her blood pressure medications, unclear if she was taking them when she got discharged. 3. Diabetes. 4. Nephrotic range proteinuria. Again, unclear if this is due to diabetic nephropathy or a nondiabetic cause. SUGGESTIONS: At this time include continue routine medications. Continue her on diuretics. Antibiotics to cover for possible pneumonia. Increase blood pressure medications as needed. Possible kidney biopsy early next week. MD CONRADO Nuñez/RACHELL / [id number]
--- NOTE | 2021-04-20 21:28 | MHC.CM.PN ---
CM met with admitted patient with bed assignment pending. motorcycle deliverer used as pt is Turkmen speaking only. IMM reviewed and signed per protocol 04/20/2021@2110. Pt is A&Ox3. Pt admitted to [facility] 04/14-04/17. Pt states HCP/son Jason Muñoz ([phone]). No copy on file. Copy requested. Pt states her son has the paperwork. Pt has recently moved her from [place] and [place]. Pt lives alone, but her son lives next door. Pt states he does everything for her. He cleans, shops, cooks and does what ever she needs. Has no services. Uses a walker. Pt fully vaccinated with Pfizer in [place]. Pt states she hasn't seen a doctor here and has her first appointment with Dr. Khan on 04/26/21. Pt is adamant that she can go home at discharge. Son will provide transportation. CM explained to patient that perhaps we should re-assess how she is doing and if she needs STR, since this is her second admission in a week. Pt aware that CM will see her in her room to further discuss d/c plans. CM to follow for d/c needs.
--- NOTE | 2021-04-20 22:06 | PC.NURSE ---
pt oob with assist to commode, patient had a very large loose brown bm, pt cleaned up and assisted back to bed, will continue to monitor.
[2021-04-21] VITALS (12 sets, daily range): BP systolic 135–186; BP diastolic 60–78; PULSE 24–140; RESP 16–19; TEMP 36–36.4; O2SAT 97–100
--- NOTE | 2021-04-21 | ECG_ITS ---
Test Reason : Afib Blood Pressure : / mmHG Vent. Rate : 136 BPM Atrial Rate : 150 BPM P-R Int : 000 ms QRS Dur : 082 ms QT Int : 330 ms P-R-T Axes : 000 056 000 degrees QTc Int : 496 ms Atrial fibrillation with rapid ventricular response Nonspecific ST and T wave abnormality Abnormal ECG Atrial fibrillation is new Referred By: Semaj Hayes Electronically Signed By:JANIE ISAACS MD
[2021-04-21] MEDS: Heparin Sodium,Porcine 5,000 UNIT/ML VIAL 5000 UNIT SUBCUT (02:16)
[2021-04-21] MEDS: Furosemide 40 MG/4 ML VIAL IVPUSH (02:16)
[2021-04-21] MEDS: Levothyroxine Sodium 25 MCG TABLET PO (05:43)
[2021-04-21 08:28] LABS: Glucose, Whole Blood 116 mg/dL (60-115)
[2021-04-21] MEDS: Cholecalciferol (Vitamin D3) 25 MCG TABLET PO (08:44)
[2021-04-21] MEDS: cefTRIAXone sodium 1 GM in 0.9 % Sodium Chloride 50 ML IV (08:44)
[2021-04-21] MEDS: Metoprolol Succinate ER 25 MG TAB.ER.24H PO (08:45)
[2021-04-21] MEDS: amLODIPine Besylate 10 MG TABLET PO (08:45)
[2021-04-21] MEDS: Amitriptyline HCl 10 MG TABLET PO (08:45)
[2021-04-21] MEDS: 0.9 % Sodium Chloride Flush 3 ML SYRINGE IVFLUSH (08:46)
[2021-04-21 08:52] LABS: MANUAL DIFF FLAG NO
[2021-04-21] MEDS: Azithromycin 250 MG TABLET PO (08:55)
[2021-04-21 09:06] LABS: Basophils Percent Auto 0.3 % (0-2); Eosinophils Absolute Auto 0.5 X10*3/uL (0.0-0.4); Eosinophils Percent Auto 4.4 % (0-4); Hematocrit 25.2 % (37.0-47.0); Hemoglobin 7.9 g/dl (12.0-16.0); Imm Gran Abs Auto 0.05 X10*3/uL (0.00-0.03); Imm Gran Pct Auto 0.4 % (0.0-0.4); Lymphocytes Absolute Auto 1.6 X10*3/uL (1.2-4.9); Lymphocytes Percent Auto 13.9 % (20-40); Mean Corpuscular HGB Conc 31.3 g/dl (31.0-35.0); Mean Corpuscular Hemoglobin 30.3 pg (27.0-33.0); Mean Corpuscular Volume 96.6 fL (80.0-98.0); Mean Platelet Volume 10.2 fL (9.4-12.3); Monocytes Absolute Auto 0.8 X10*3/uL (0.1-1.2); Monocytes Percent Auto 6.6 % (2-11); Neutrophils Percent Auto 74.4 % (45-73); Platelet Count 264 X10*3/uL (160-400); Red Blood Count 2.61 X10*6/uL (4.20-5.50); Red Cell Distribution Width 14.4 % (11.0-16.0); White Blood Count 11.8 X10*3/uL (4.8-10.8)
--- NOTE | 2021-04-21 09:24 | P.PNNP_ITS ---
Subjective Subjective Date of Service: 04/21/21 Interval history: seen and examined events noted no complaints Physical Exam Vital Signs: Vital Signs: Last Vital Signs Temp 96.8 F 04/21/21 07:28 Pulse 74 04/21/21 07:28 Resp 18 04/21/21 07:28 BP 181/65 H 04/21/21 07:28 Pulse Ox 98 04/21/21 07:28 Body Mass Index 39.4 Const: General: comfortable and no acute distress HENMT: Head: Yes normocephalic and Yes atraumatic Neck: Neck: Yes supple Resp: Auscultation: diminished lung sounds Cardio: Heart sounds: S1 normal heart sound present and S2 normal heart sound present GI: Palpation (GI): Soft to palpation and no guarding Extrem: General: Yes edema Objective Data Labs CBC & Chem 7: 04/20/21 12:18 04/20/21 12:18 Labs: Laboratory Results - last 24 hr 04/20/21 04/20/21 04/20/21 12:18 12:18 12:18 WBC 12.9 H RBC 2.85 L Hgb 8.6 L Hct 26.9 L MCV 94.4 MCH 30.2 MCHC 32.0 RDW 14.2 Plt Count 242 MPV 9.6 Immature Gran % (Auto) 0.5 H Neut % (Auto) 81.6 H Lymph % (Auto) 10.1 L [place] % (Auto) 5.5 Eos % (Auto) 1.9 Baso % (Auto) 0.4 Lymph # (Auto) 1.3 [place] # (Auto) 0.7 Eos # (Auto) 0.3 Baso # (Auto) 0.1 Abs Immat Gran (auto) 0.06 H Absolute Neuts (auto) 10.5 H Absolute Nucleated RBC 0.000 Nucleated RBC % (auto) 0.0 Sodium 137 Potassium 3.9 Chloride 102 Carbon Dioxide 22 Anion Gap 17 BUN 42 H Creatinine 4.41 H* Estim Creat Clear Calc 11.4 Estimated GFR 10 POC Glucose Random Glucose 199 H Lactic Acid Calcium 7.4 L Troponin I High Sens 137.3 H* B-Natriuretic Peptide 642 H Influenza Type A (PCR) Influenza Type B (PCR) RSV RNA Qual (PCR) SARS-CoV-2 RNA (RT-PCR) 04/20/21 04/20/21 04/20/21 12:18 18:02 18:02 WBC RBC Hgb Hct MCV MCH MCHC RDW Plt Count MPV Immature Gran % (Auto) Neut % (Auto) Lymph % (Auto) [place] % (Auto) Eos % (Auto) Baso % (Auto) Lymph # (Auto) [place] # (Auto) Eos # (Auto) Baso # (Auto) Abs Immat Gran (auto) Absolute Neuts (auto) Absolute Nucleated RBC Nucleated RBC % (auto) Sodium Potassium Chloride Carbon Dioxide Anion Gap BUN Creatinine Estim Creat Clear Calc Estimated GFR POC Glucose Random Glucose Lactic Acid 0.9 Calcium Troponin I High Sens 119.9 H* B-Natriuretic Peptide Influenza Type A (PCR) NEGATIVE Influenza Type B (PCR) NEGATIVE RSV RNA Qual (PCR) NEGATIVE SARS-CoV-2 RNA (RT-PCR) NEGATIVE 04/20/21 04/20/21 04/21/21 18:54 20:48 07:27 WBC RBC Hgb Hct MCV MCH MCHC RDW Plt Count MPV Immature Gran % (Auto) Neut % (Auto) Lymph % (Auto) [place] % (Auto) Eos % (Auto) Baso % (Auto) Lymph # (Auto) [place] # (Auto) Eos # (Auto) Baso # (Auto) Abs Immat Gran (auto) Absolute Neuts (auto) Absolute Nucleated RBC Nucleated RBC % (auto) Sodium Potassium Chloride Carbon Dioxide Anion Gap BUN Creatinine Estim Creat Clear Calc Estimated GFR POC Glucose 161 H 164 H 116 H Random Glucose Lactic Acid Calcium Troponin I High Sens B-Natriuretic Peptide Influenza Type A (PCR) Influenza Type B (PCR) RSV RNA Qual (PCR) SARS-CoV-2 RNA (RT-PCR) Procedures Date of Service Date of Service: 04/21/21 Assessment & Plan Assessment and plan (1) KYLER (acute kidney injury): Status: Acute (2) Nephrotic range proteinuria: Status: Acute (3) Chronic kidney disease, stage 4 (severe): Status: Acute Assessment and Plan: KYLER due to compromised kidney perfusion versus progression of underlying kidney disease she has nephrotic range proteinuria which signals risk of abrupt kidney function deterioration known severe CKD due to DM/HTN normal complement level positive GOMEZ serum immunofixation normal other serology pending REC consider kidney biopsy on IV furosemide HOLD asa follow kidney function and electrolytes Time Spent With Patient Time: Total time spent is greater than 50% in coordination of care (as documented) at patient's floor/unit and/or counseling patient:
[2021-04-21 09:33] LABS: Anion Gap 13 (12-20); Blood Urea Nitrogen 42 mg/dL (9-16); Calcium 7.2 mg/dL (8.4-10.2); Carbon Dioxide 25 mmol/L (22-29); Chloride 102 mmol/L (96-108); Creatinine Clr Calc Pharmacy 11.4; Estimated Glomerular Filt Rate 10; Glucose Random 142 mg/dL (60-115); Potassium 3.4 mmol/L (3.3-5.1); Sodium 137 mmol/L (135-145)
[2021-04-21 12:23] LABS: Glucose, Whole Blood 173 mg/dL (60-115)
[2021-04-21] MEDS: Insulin Lispro 100 UNIT/ML 3 ML VIAL SUBCUT ×3 (12:34→21:54)
--- NOTE | 2021-04-21 13:06 | P.CONCA_ITS ---
History of Present Illness History of Present Illness Date of Service: 04/21/21 Requesting physician: Rey Batres Chief complaint: SOB, Afib Narrative: 75-year-old female who is presenting with shortness of breath. She left the hospital on 04/17/2021 when she presented with worsening kidney function with good kidney injury and was given IV fluids. She also has background of diabetes, anemia and hypertension. Her she presented with shortness of breath. She was thought to have pneumonia and given antibiotics. She was also given diuretics. With diuretics her breathing has improved and she is him feeling much better today. Incidentally she went into AFib with RVR which is a new diagnosis for her. Discussing with her son she has history of anemia with no obvious cause found previously when she had workup done in [place]. She is anemic at this point with hemoglobin 7.9. Denying any palpitations right now. She is quite tachycardic right now. PMFSH Past Medical History Medical History Arthritis Diabetes DMII (diabetes mellitus, type 2) HTN (hypertension) Hypertension Toe amputee Surgical History Surgical History Hx of appendectomy Social History Social History Household Members: None Household Members Other:: self, son lives close by Housing: House Do you presently have visiting nurse or other home services: No Alcohol intake: never Patient Tobacco Use Status: Never used Tobacco Tobacco use type: Cigarette e-Cigarette/Vaping Use: Never Used Second Hand Smoke Exposure: No service: No Current occupational status: unemployed and retired Meds Allergies Allergy/AdvReac Type Severity Reaction Status Date / Time No Known Allergies Allergy Verified 04/14/21 11:17 Active Medications: Current Medications Acetaminophen (Acetaminophen 325 Mg Tablet) 650 mg PO Q6H PRN PRN Reason: Pain, Mild (Pain Scale 1-3) Amitriptyline HCl (Amitriptyline Hcl 10 Mg Tablet) 10 mg PO DAILY MARKIE Last Admin: 04/21/21 08:45 Dose: 10 mg Documented by: Amlodipine Besylate (Amlodipine Besylate 10 Mg Tablet) 10 mg PO DAILY MARKIE; P rotocol Last Admin: 04/21/21 08:45 Dose: 10 mg Documented by: Atorvastatin Calcium (Atorvastatin Calcium 40 Mg Tablet) 40 mg PO BEDTIME [facility] Last Admin: 04/20/21 20:57 Dose: 40 mg Documented by: Azithromycin (Azithromycin 250 Mg Tablet) 250 mg PO Q24H [facility] Last Admin: 04/21/21 08:55 Dose: 250 mg Documented by: Cyanocobalamin (Cyanocobalamin (Vitamin B-12) 1,000 Mcg/Ml Vial) 1,000 mcg IM Q28D [facility] Dextrose (Dextrose 50 % 25 Gm/50 Ml Vial) 25 gm IVPUSH Q15M PRN; Protocol PRN Reason: per Hypoglycemia Standing Ord. Furosemide (Furosemide 40 Mg/4 Ml Vial) 40 mg IVPUSH Q12H [facility]; Protocol Last Admin: 04/21/21 02:16 Dose: 40 mg Documented by: Glucose (Glucose Gel 15 Gm Gel..Gram.) 15 gm PO Q15M PRN; Protocol PRN Reason: per Hypoglycemia Standing Ord. Heparin Sodium (Porcine) (Heparin Sodium,Porcine 5,000 Unit/Ml Vial) 5,000 unit SUBCUT Q12H [facility] Last Admin: 04/21/21 02:16 Dose: 5,000 unit Documented by: Ceftriaxone Sodium 1 gm/ (Sodium Chloride) 50 mls @ 100 mls/hr IV Q24H [facility] Last Infusion: 04/21/21 09:35 Dose: Infused Documented by: Insulin Glargine (Insulin Glargine,Hum.Rec.Anlog 100 Unit/Ml 10 Ml Vial) 8 unit SUBCUT BEDTIME [facility] Last Admin: 04/20/21 20:58 Dose: 8 unit Documented by: Insulin Human Lispro (Insulin Lispro 100 Unit/Ml 3 Ml Vial) 0 unit SUBCUT QIDACHS [facility]; Protocol Last Admin: 04/21/21 12:34 Dose: 2 unit Documented by: Levothyroxine Sodium (Levothyroxine Sodium 25 Mcg Tablet) 25 mcg PO DAILY@0630 [facility] Last Admin: 04/21/21 05:43 Dose: 25 mcg Documented by: Melatonin (Melatonin 3 Mg Tablet) 3 mg PO BEDTIME PRN PRN Reason: Insomnia Metoprolol Succinate (Metoprolol Succinate Er 25 Mg Tab.Er.24h) 25 mg PO DAILY [facility]; Protocol Last Admin: 04/21/21 08:45 Dose: 25 mg Documented by: Montelukast Sodium (Montelukast Sodium 10 Mg Tablet) 10 mg PO BEDTIME [facility] Last Admin: 04/20/21 20:57 Dose: 10 mg Documented by: Ondansetron HCl (Ondansetron Hcl 4 Mg/2 Ml Vial) 4 mg IVPUSH Q8H PRN PRN Reason: Nausea and Vomiting Pharmacy Consult (Consult Rx Perform Med Rec) 1 each MISCELLANE ONCE PRN PRN Reason: Consult order Psyllium Hydrophilic Mucilloid (Psyllium Seed 3.4 Gm Powd.Pack) 3.4 gm PO DAILY [facility] Last Admin: 04/21/21 08:44 Dose: 3.4 gm Documented by: Sodium Chloride (0.9 % Sodium Chloride Flush 3 Ml Syringe) 3 ml IVFLUSH QSHIFT [facility] Last Admin: 04/21/21 08:46 Dose: 3 ml Documented by: Temazepam (Temazepam 15 Mg Capsule) 30 mg PO BEDTIME PRN PRN Reason: Insomnia Tramadol HCl (Tramadol Hcl 50 Mg Tablet) 50 mg PO BEDTIME [facility] Last Admin: 04/20/21 20:57 Dose: 50 mg Documented by: Vitamin D (Cholecalciferol (Vitamin D3) 25 Mcg Tablet) 25 mcg PO DAILY [facility] Last Admin: 04/21/21 08:44 Dose: 25 mcg Documented by: Home Medications Medication Instructions Recorded Confirmed Last Taken Type temazepam 30 mg capsule 30 mg PO BEDTIME PRN 04/12/21 04/20/21 04/13/21 History cyanocobalamin (vitamin B-12) 1,000 mcg IM Q28D 04/14/21 04/20/21 04/14/21 History 1,000 mcg/mL injection solution Physical Exam Vital Signs: Vital Signs: Last Vital Signs Temp 96.9 F 04/21/21 11:40 Pulse 129 H 04/21/21 11:40 Resp 18 04/21/21 11:40 BP 143/70 H 04/21/21 11:40 Pulse Ox 98 04/21/21 11:40 Body Mass Index 39.4 GENERAL APPEARANCE: in no acute distress, pleasant. NECK: no carotid bruit, no obvious jugular venous distention. SKIN: no suspicious lesions, warm and dry. HEART: no murmurs, irregular rate and rhythm. Tachycardic LUNGS: Few rales at bases. ABDOMEN: soft, nontender. PERIPHERAL PULSES: equal. NEUROLOGIC: No gross deficits, AAO X 3 Results Labs and Meds Result diagrams: 04/21/21 05:48 04/21/21 05:48 Lab results: Laboratory Results - last 24 hr 04/20/21 04/20/21 04/20/21 12:18 18:02 18:02 WBC RBC Hgb Hct MCV MCH MCHC RDW Plt Count MPV Immature Gran % (Auto) Neut % (Auto) Lymph % (Auto) [place] % (Auto) Eos % (Auto) Baso % (Auto) Lymph # (Auto) [place] # (Auto) Eos # (Auto) Baso # (Auto) Abs Immat Gran (auto) Absolute Neuts (auto) Absolute Nucleated RBC Nucleated RBC % (auto) Sodium Potassium Chloride Carbon Dioxide Anion Gap BUN Creatinine Estim Creat Clear Calc Estimated GFR POC Glucose Random Glucose Lactic Acid 0.9 Calcium Troponin I High Sens 119.9 H* Influenza Type A (PCR) NEGATIVE Influenza Type B (PCR) NEGATIVE RSV RNA Qual (PCR) NEGATIVE SARS-CoV-2 RNA (RT-PCR) NEGATIVE 04/20/21 04/20/21 04/21/21 18:54 20:48 05:48 WBC 11.8 H RBC 2.61 L Hgb 7.9 L Hct 25.2 L MCV 96.6 MCH 30.3 MCHC 31.3 RDW 14.4 Plt Count 264 MPV 10.2 Immature Gran % (Auto) 0.4 Neut % (Auto) 74.4 H Lymph % (Auto) 13.9 L [place] % (Auto) 6.6 Eos % (Auto) 4.4 H Baso % (Auto) 0.3 Lymph # (Auto) 1.6 [place] # (Auto) 0.8 Eos # (Auto) 0.5 H Baso # (Auto) 0.0 Abs Immat Gran (auto) 0.05 H Absolute Neuts (auto) 8.80 H Absolute Nucleated RBC 0.000 Nucleated RBC % (auto) 0.0 Sodium Potassium Chloride Carbon Dioxide Anion Gap BUN Creatinine Estim Creat Clear Calc Estimated GFR POC Glucose 161 H 164 H Random Glucose Lactic Acid Calcium Troponin I High Sens Influenza Type A (PCR) Influenza Type B (PCR) RSV RNA Qual (PCR) SARS-CoV-2 RNA (RT-PCR) 04/21/21 04/21/21 04/21/21 05:48 07:27 11:40 WBC RBC Hgb Hct MCV MCH MCHC RDW Plt Count MPV Immature Gran % (Auto) Neut % (Auto) Lymph % (Auto) [place] % (Auto) Eos % (Auto) Baso % (Auto) Lymph # (Auto) [place] # (Auto) Eos # (Auto) Baso # (Auto) Abs Immat Gran (auto) Absolute Neuts (auto) Absolute Nucleated RBC Nucleated RBC % (auto) Sodium 137 Potassium 3.4 Chloride 102 Carbon Dioxide 25 Anion Gap 13 BUN 42 H Creatinine 4.44 H* Estim Creat Clear Calc 11.4 Estimated GFR 10 POC Glucose 116 H 173 H Random Glucose 142 H Lactic Acid Calcium 7.2 L Troponin I High Sens Influenza Type A (PCR) Influenza Type B (PCR) RSV RNA Qual (PCR) SARS-CoV-2 RNA (RT-PCR) Imaging Radiologist's impression: Impressions Chest X-Ray 04/20/21 17:13 FINDINGS/IMPRESSION: Interval placement of right-sided jugular catheter with tip terminating within the distal SVC. No pneumothorax. Similar left-sided pleural effusion with overlying airspace disease. Assessment and Plan (1) Chronic kidney disease, stage 4 (severe): Status: Acute (2) Dyspnea: Status: Acute (3) New onset atrial fibrillation: Status: Acute 75-year-old female who is recently discharged from hospital with kidney injury and presenting with hypoxia and shortness of breath. She was given diuretics and has been improving. There is also some concern for pneumonia and she was started on antibiotics. She has new onset atrial fibrillation. She has a high chads Vasc score but unfortunate also has been anemic and is currently not even taking aspirin. Please do workup for anemia to understand his it truly anemia chronic disease or if she has any blood loss. If there is no obvious blood loss then we can consider anticoagulation and hemoglobin monitoring as a strategy. Increase the Toprol to 25 mg b.i.d.. If required she can get digoxin load only. Will follow along with you. Thank you for allowing me to participate in the care of your patient. Please feel free to contact me if you have any questions. Procedures Date of Service Date of Service: 04/21/21
--- NOTE | 2021-04-21 14:00 | P.PNIM_ITS ---
Subjective Subjective Date of Service: 04/21/21 Interval History: Being followed for shortness of breath patient is feeling significantly better this morning, but noted to have tachycardia EKG shows atrial fibrillation with RVR, patient denies chest pain, no palpitation, denies diaphoresis, no prior history of atrial fibrillation. History obtained via drafter Review of Systems General no headache, no dizziness no fever chills. CVS no chest pain, no palpitation. Respiratory no cough, no sob. Gastrointestinal no nausea no vomiting, no abdominal pain Review of Systems: Yes all other systems are reviewed and are negative Physical Exam Vital Signs: Vital Signs: Last Vital Signs Temp 96.9 F 04/21/21 11:40 Pulse 140 H 04/21/21 13:21 Resp 18 04/21/21 11:40 BP 143/70 H 04/21/21 11:40 Pulse Ox 98 04/21/21 11:40 Body Mass Index 39.4 General resting comfortably in no acute distress. Neck supple no JVD. CVS irregular rate rhythm, Respiratory lungs left base crackles, no respiratory distress, no wheeze, no rhonchi. Gastrointestinal abdomen soft, nontender, bowel sounds audible, no guarding , no rigidity. Extremities edema resolved. Neuro nonfocal Skin no rash Psych appropriate affect Objective Data Active Medications Acetaminophen (Acetaminophen 325 Mg Tablet) 650 mg PO Q6H PRN PRN Reason: Pain, Mild (Pain Scale 1-3) Amitriptyline HCl (Amitriptyline Hcl 10 Mg Tablet) 10 mg PO DAILY [facility] Last Admin: 04/21/21 08:45 Dose: 10 mg Documented by: SHAINA Amlodipine Besylate (Amlodipine Besylate 10 Mg Tablet) 10 mg PO DAILY [facility]; Protocol Last Admin: 04/21/21 08:45 Dose: 10 mg Documented by: SHAINA Atorvastatin Calcium (Atorvastatin Calcium 40 Mg Tablet) 40 mg PO BEDTIME [facility] Last Admin: 04/20/21 20:57 Dose: 40 mg Documented by: DARCY Azithromycin (Azithromycin 250 Mg Tablet) 250 mg PO Q24H [facility] Last Admin: 04/21/21 08:55 Dose: 250 mg Documented by: SHAINA Cyanocobalamin (Cyanocobalamin (Vitamin B-12) 1,000 Mcg/Ml Vial) 1,000 mcg IM Q28D [facility] Dextrose (Dextrose 50 % 25 Gm/50 Ml Vial) 25 gm IVPUSH Q15M PRN; Protocol PRN Reason: per Hypoglycemia Standing Ord. Furosemide (Furosemide 40 Mg/4 Ml Vial) 40 mg IVPUSH Q12H [facility]; Protocol Last Admin: 04/21/21 02:16 Dose: 40 mg Documented by: KASSANDRA Glucose (Glucose Gel 15 Gm Gel..Gram.) 15 gm PO Q15M PRN; Protocol PRN Reason: per Hypoglycemia Standing Ord. Heparin Sodium (Porcine) (Heparin Sodium,Porcine 5,000 Unit/Ml Vial) 5,000 unit SUBCUT Q12H [facility] Last Admin: 04/21/21 02:16 Dose: 5,000 unit Documented by: KASSANDRA Ceftriaxone Sodium 1 gm/ (Sodium Chloride) 50 mls @ 100 mls/hr IV Q24H [facility] Last Infusion: 04/21/21 09:35 Dose: 0 mls/hr Documented by: MAXI Insulin Glargine (Insulin Glargine,Hum.Rec.Anlog 100 Unit/Ml 10 Ml Vial) 8 unit SUBCUT BEDTIME [facility] Last Admin: 04/20/21 20:58 Dose: 8 unit Documented by: DARCY Insulin Human Lispro (Insulin Lispro 100 Unit/Ml 3 Ml Vial) 0 unit SUBCUT QIDACHS [facility]; Protocol Last Admin: 04/21/21 12:34 Dose: 2 unit Documented by: SHAINA Levothyroxine Sodium (Levothyroxine Sodium 25 Mcg Tablet) 25 mcg PO DAILY@0630 [facility] Last Admin: 04/21/21 05:43 Dose: 25 mcg Documented by: KASSANDRA Melatonin (Melatonin 3 Mg Tablet) 3 mg PO BEDTIME PRN PRN Reason: Insomnia Metoprolol Tartrate (Metoprolol Tartrate 25 Mg Tablet) 25 mg PO QID [facility]; Protocol Montelukast Sodium (Montelukast Sodium 10 Mg Tablet) 10 mg PO BEDTIME [facility] Last Admin: 04/20/21 20:57 Dose: 10 mg Documented by: DARCY Ondansetron HCl (Ondansetron Hcl 4 Mg/2 Ml Vial) 4 mg IVPUSH Q8H PRN PRN Reason: Nausea and Vomiting Pharmacy Consult (Consult Rx Perform Med Rec) 1 each MISCELLANE ONCE PRN PRN Reason: Consult order Psyllium Hydrophilic Mucilloid (Psyllium Seed 3.4 Gm Powd.Pack) 3.4 gm PO DAILY [facility] Last Admin: 04/21/21 08:44 Dose: 3.4 gm Documented by: SHAINA Sodium Chloride (0.9 % Sodium Chloride Flush 3 Ml Syringe) 3 ml IVFLUSH QSHIFT [facility] Last Admin: 04/21/21 08:46 Dose: 3 ml Documented by: SHAINA Temazepam (Temazepam 15 Mg Capsule) 30 mg PO BEDTIME PRN PRN Reason: Insomnia Tramadol HCl (Tramadol Hcl 50 Mg Tablet) 50 mg PO BEDTIME [facility] Last Admin: 04/20/21 20:57 Dose: 50 mg Documented by: DARCY Vitamin D (Cholecalciferol (Vitamin D3) 25 Mcg Tablet) 25 mcg PO DAILY [facility] Last Admin: 04/21/21 08:44 Dose: 25 mcg Documented by: SHAINA Labs CBC & Chem 7: 04/21/21 05:48 04/21/21 05:48 Labs: Laboratory Results - last 24 hr 04/20/21 04/20/21 04/20/21 12:18 18:02 18:02 MCV MCH MCHC RDW Plt Count MPV Immature Gran % (Auto) Neut % (Auto) Lymph % (Auto) [place] % (Auto) Eos % (Auto) Baso % (Auto) Lymph # (Auto) [place] # (Auto) Eos # (Auto) Baso # (Auto) Abs Immat Gran (auto) Absolute Neuts (auto) Absolute Nucleated RBC Nucleated RBC % (auto) Anion Gap Estim Creat Clear Calc Estimated GFR POC Glucose Random Glucose Lactic Acid 0.9 Calcium Troponin I High Sens 119.9 H* Influenza Type A (PCR) NEGATIVE Influenza Type B (PCR) NEGATIVE RSV RNA Qual (PCR) NEGATIVE SARS-CoV-2 RNA (RT-PCR) NEGATIVE 04/20/21 04/20/21 04/21/21 18:54 20:48 05:48 MCV 96.6 MCH 30.3 MCHC 31.3 RDW 14.4 Plt Count 264 MPV 10.2 Immature Gran % (Auto) 0.4 Neut % (Auto) 74.4 H Lymph % (Auto) 13.9 L [place] % (Auto) 6.6 Eos % (Auto) 4.4 H Baso % (Auto) 0.3 Lymph # (Auto) 1.6 [place] # (Auto) 0.8 Eos # (Auto) 0.5 H Baso # (Auto) 0.0 Abs Immat Gran (auto) 0.05 H Absolute Neuts (auto) 8.80 H Absolute Nucleated RBC 0.000 Nucleated RBC % (auto) 0.0 Anion Gap Estim Creat Clear Calc Estimated GFR POC Glucose 161 H 164 H Random Glucose Lactic Acid Calcium Troponin I High Sens Influenza Type A (PCR) Influenza Type B (PCR) RSV RNA Qual (PCR) SARS-CoV-2 RNA (RT-PCR) 04/21/21 04/21/21 04/21/21 05:48 07:27 11:40 MCV MCH MCHC RDW Plt Count MPV Immature Gran % (Auto) Neut % (Auto) Lymph % (Auto) [place] % (Auto) Eos % (Auto) Baso % (Auto) Lymph # (Auto) [place] # (Auto) Eos # (Auto) Baso # (Auto) Abs Immat Gran (auto) Absolute Neuts (auto) Absolute Nucleated RBC Nucleated RBC % (auto) Anion Gap 13 Estim Creat Clear Calc 11.4 Estimated GFR 10 POC Glucose 116 H 173 H Random Glucose 142 H Lactic Acid Calcium 7.2 L Troponin I High Sens Influenza Type A (PCR) Influenza Type B (PCR) RSV RNA Qual (PCR) SARS-CoV-2 RNA (RT-PCR) Assessment and Plan (1) New onset atrial fibrillation: Status: Acute (2) Chronic kidney disease, stage 4 (severe): Status: Acute (3) Pneumonia: Status: Acute (4) Hypothyroid: Status: Acute (5) Acute diastolic heart failure: Status: Acute Assessment and Plan: 75-year-old female with past medical history of chronic kidney disease stage 4, history of diabetes on insulin, hypertension recently discharged from [facility] on 04/17 presented to with symptoms of shortness of breath worse with activity, associated with cough no fevers no chills, denies chest pain workup in the emergency room revealed leukocytosis and left base worsening effusion and air bronchogram, patient also noted to have elevated BNP and troponin. Acute diastolic congestive heart failure Patient responded well to IV Lasix feeling better with no shortness of breath, no chest pain this morning Echo showed preserved EF with diastolic dysfunction Troponin elevated but remains flat likely due to CHF/and renal failure Continue IV Lasix today and transition to by mouth at a.m. Will follow daily weight eyes and nose, follow renal function and BNP New onset atrial fibrillation Patient noted to have significant tachycardia ventricular rate in 130s patient remained asymptomatic with no chest pain no palpitation and no shortness of breaths Echo showed diastolic dysfunction Will treat patient with beta blockers and if heart rate does not improve will consider digoxin load Will hold anticoagulation due to concern for anemia and renal biopsy Pneumonia Patient with no significant symptoms of pneumonia other than coughing but noted to have leukocytosis and left base air bronchograms in effusion therefore will treat with IV ceftriaxone and azithromycin day 2 Continue supportive care with cough medication Diabetes on insulin Blood sugars stable, continue Diabetic diet/low-dose Lantus 8 units will check point of care blood sugars and add insulin sliding scale, at home patient takes Novolin 70/30, 20 units b.i.d. hypertension urgency :? Noted elevated blood pressures in emergency, as per granddaughter patient is compliant with medication BP remains elevated, will change dose of metoprolol to 25 mg q.6 hours, continue amlodipine, Follow BP closely Hypercholesteremia :continue atorvastatin. Acute on chronic Anemia likely anemia of chronic disease:? No active blood loss noted Noted to have drop in hematocrit from 26.9-25.2 today, will check stool guaiacs order hemolysis studies Iron studies 04/14/21 not consistent with iron deficiency anemia ferritin 380, normal B12, and folate on iron supplements, initiate Procrit as per nephro Stool for occult blood negative 04/14? 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 Question inpatient versus outpatient renal biopsy will discuss with Nephrology Obesity recommend low-calorie diet dvt prophylax : s/c heparin Quality Stroke Does the patient have a stroke diagnosis?: No VTE Prior VTE?: No VTE Risk Level:: Medical - moderate - high VTE Device Contraindication: Treatment Not Indicated VTE Drug Contraindication: N/A - Med Ordered
[2021-04-21] MEDS: Metoprolol Tartrate 25 MG TABLET PO ×2 (14:02→21:54)
[2021-04-21 14:23] LABS: Retic HGB Equivalent 31.9 pg (30.0-35.0); Reticulocyte Percent 2.1 % (0.5-1.8); Reticulocytes Absolute 0.055 X10*6/uL (0.026-0.095)
[2021-04-21 14:32] LABS: Lactate Dehydrogenase 282 U/L (122-220)
[2021-04-21 16:41] LABS: Glucose, Whole Blood 161 mg/dL (60-115)
--- NOTE | 2021-04-21 16:55 | PC.NURSE ---
late entry At 11:08 this morning noted increase HR TO 130S's and sustaining in the range of 130-140.No pain or SOB.VS stable,Dr Batres notified, EKG done, shows change in heart rhythm,patient in A-fib now.Cariologist at bedside to evaluate. Patient started on metoprolol,first dose given. At 1449 patient converted back to sinus rhythm,pulse 70. Md aware.
[2021-04-21 20:45] LABS: Glucose, Whole Blood 210 mg/dL (60-115)
[2021-04-21] MEDS: Montelukast Sodium 10 MG TABLET PO (21:53)
[2021-04-21] MEDS: Atorvastatin Calcium 40 MG TABLET PO (21:53)
[2021-04-21] MEDS: traMADoL HCL 50 MG TABLET PO (21:53)
[2021-04-21] MEDS: Insulin Glargine,Hum.rec.anlog 100 UNIT/ML 10 ML VIAL 8 UNIT SUBCUT (21:55)
--- NOTE | 2021-04-22 | ECG_ITS ---
Test Reason : CHANGE IN RTHYUM Blood Pressure : / mmHG Vent. Rate : 063 BPM Atrial Rate : 063 BPM P-R Int : 174 ms QRS Dur : 090 ms QT Int : 466 ms P-R-T Axes : 031 045 042 degrees QTc Int : 476 ms Normal sinus rhythm Nonspecific T wave abnormality Abnormal ECG Heart rate has decreased Normal sinus rhythm has replaced Atrial fibrillation T wave amplitude has decreased in Inferior leads Lateral leads Referred By: Rey Batres Electronically Signed By:JANIE ISAACS MD
[2021-04-22] MEDS: 0.9 % Sodium Chloride Flush 3 ML SYRINGE IVFLUSH ×4 (00:58→21:07)
[2021-04-22 03:53] VITALS: BP 152/67; PULSE 65; RESP 16; TEMP 36; O2SAT 100
[2021-04-22] MEDS: Levothyroxine Sodium 25 MCG TABLET PO (05:59)
[2021-04-22 06:13] LABS: Hematocrit 23.9 % (37.0-47.0); Hemoglobin 7.5 g/dl (12.0-16.0); Mean Corpuscular HGB Conc 31.4 g/dl (31.0-35.0); Mean Corpuscular Hemoglobin 29.8 pg (27.0-33.0); Mean Corpuscular Volume 94.8 fL (80.0-98.0); Mean Platelet Volume 9.9 fL (9.4-12.3); Platelet Count 240 X10*3/uL (160-400); Red Blood Count 2.52 X10*6/uL (4.20-5.50); Red Cell Distribution Width 14.1 % (11.0-16.0); White Blood Count 11.4 X10*3/uL (4.8-10.8)
[2021-04-22 06:35] LABS: B Type Natriuretic Peptide 268 pg/mL (<100)
[2021-04-22 06:50] LABS: Anion Gap 12 (12-20); Blood Urea Nitrogen 45 mg/dL (9-16); Calcium 6.8 mg/dL (8.4-10.2); Carbon Dioxide 25 mmol/L (22-29); Chloride 101 mmol/L (96-108); Glucose Random 74 mg/dL (60-115); Potassium 3.3 mmol/L (3.3-5.1); Sodium 135 mmol/L (135-145)
[2021-04-22 07:17] LABS: Creatinine Clr Calc Pharmacy 10.4; Estimated Glomerular Filt Rate 9
[2021-04-22 07:22] VITALS: BP 150/70; PULSE 64; RESP 18; TEMP 36; O2SAT 100
[2021-04-22 07:53] LABS: Glucose, Whole Blood 72 mg/dL (60-115)
[2021-04-22] MEDS: Furosemide 40 MG TABLET PO (08:11)
[2021-04-22] MEDS: Cholecalciferol (Vitamin D3) 25 MCG TABLET PO (08:11)
[2021-04-22] MEDS: cefTRIAXone sodium 1 GM in 0.9 % Sodium Chloride 50 ML IV (08:11)
[2021-04-22] MEDS: Amitriptyline HCl 10 MG TABLET PO (08:11)
[2021-04-22] MEDS: Metoprolol Tartrate 25 MG TABLET PO (08:11)
[2021-04-22] MEDS: amLODIPine Besylate 10 MG TABLET PO (08:11)
[2021-04-22] MEDS: Azithromycin 250 MG TABLET PO (08:11)
--- NOTE | 2021-04-22 08:49 | P.PNNP_ITS ---
Subjective Subjective Date of Service: 04/22/21 Interval history: seen and examined discussed with medical attending feels better this morning denies chest pain, palpitation Physical Exam Vital Signs: Vital Signs: Last Vital Signs Temp 96.8 F 04/22/21 07:22 Pulse 64 04/22/21 07:22 Resp 18 04/22/21 07:22 BP 150/70 H 04/22/21 07:22 Pulse Ox 100 04/22/21 07:22 Body Mass Index 39.4 Const: General: comfortable and no acute distress HENMT: Head: Yes normocephalic and Yes atraumatic Neck: Neck: Yes supple Resp: Auscultation: diminished lung sounds Cardio: Heart sounds: S1 normal heart sound present and S2 normal heart sound present GI: Palpation (GI): Soft to palpation and no guarding Extrem: General: Yes edema Objective Data Labs CBC & Chem 7: 04/22/21 05:45 04/22/21 05:45 Labs: Laboratory Results - last 24 hr 04/21/21 04/21/21 04/21/21 05:48 05:48 11:40 WBC 11.8 H RBC 2.61 L Hgb 7.9 L Hct 25.2 L MCV 96.6 MCH 30.3 MCHC 31.3 RDW 14.4 Plt Count 264 MPV 10.2 Immature Gran % (Auto) 0.4 Neut % (Auto) 74.4 H Lymph % (Auto) 13.9 L [place] % (Auto) 6.6 Eos % (Auto) 4.4 H Baso % (Auto) 0.3 Lymph # (Auto) 1.6 [place] # (Auto) 0.8 Eos # (Auto) 0.5 H Baso # (Auto) 0.0 Abs Immat Gran (auto) 0.05 H Absolute Neuts (auto) 8.80 H Absolute Nucleated RBC 0.000 Nucleated RBC % (auto) 0.0 Absolute Retic 0.055 Percent Retic 2.1 H Immature Retic Fraction 14.0 Retic Hgb Equivalent 31.9 Sodium 137 Potassium 3.4 Chloride 102 Carbon Dioxide 25 Anion Gap 13 BUN 42 H Creatinine 4.44 H* Estim Creat Clear Calc 11.4 Estimated GFR 10 POC Glucose 173 H Random Glucose 142 H Calcium 7.2 L Lactate Dehydrogenase 282 H B-Natriuretic Peptide 04/21/21 04/21/21 04/22/21 16:35 20:36 05:45 WBC 11.4 H RBC 2.52 L Hgb 7.5 L Hct 23.9 L MCV 94.8 MCH 29.8 MCHC 31.4 RDW 14.1 Plt Count 240 MPV 9.9 Immature Gran % (Auto) Neut % (Auto) Lymph % (Auto) [place] % (Auto) Eos % (Auto) Baso % (Auto) Lymph # (Auto) [place] # (Auto) Eos # (Auto) Baso # (Auto) Abs Immat Gran (auto) Absolute Neuts (auto) Absolute Nucleated RBC 0.000 Nucleated RBC % (auto) 0.0 Absolute Retic Percent Retic Immature Retic Fraction Retic Hgb Equivalent Sodium Potassium Chloride Carbon Dioxide Anion Gap BUN Creatinine Estim Creat Clear Calc Estimated GFR POC Glucose 161 H 210 H Random Glucose Calcium Lactate Dehydrogenase B-Natriuretic Peptide 04/22/21 04/22/21 04/22/21 05:45 05:45 07:19 WBC RBC Hgb Hct MCV MCH MCHC RDW Plt Count MPV Immature Gran % (Auto) Neut % (Auto) Lymph % (Auto) [place] % (Auto) Eos % (Auto) Baso % (Auto) Lymph # (Auto) [place] # (Auto) Eos # (Auto) Baso # (Auto) Abs Immat Gran (auto) Absolute Neuts (auto) Absolute Nucleated RBC Nucleated RBC % (auto) Absolute Retic Percent Retic Immature Retic Fraction Retic Hgb Equivalent Sodium 135 Potassium 3.3 Chloride 101 Carbon Dioxide 25 Anion Gap 12 BUN 45 H Creatinine 4.87 H* Estim Creat Clear Calc 10.4 Estimated GFR 9 POC Glucose 72 Random Glucose 74 Calcium 6.8 L Lactate Dehydrogenase B-Natriuretic Peptide 268 H Microbiology Microbiology Results: Microbiology 04/20/21 18:02 Blood - Venous Blood Culture - Preliminary No growth after 24 hours. 04/20/21 18:02 Blood - Venous Blood Culture - Preliminary No growth after 24 hours. Procedures Date of Service Date of Service: 04/22/21 Assessment & Plan Assessment and plan (1) KYLER (acute kidney injury): Status: Acute (2) Nephrotic range proteinuria: Status: Acute (3) Chronic kidney disease, stage 4 (severe): Status: Acute Assessment and Plan: KYLER due to compromised kidney perfusion versus progression of underlying kidney disease she has nephrotic range proteinuria which signals risk of abrupt kidney function deterioration known severe CKD due to DM/HTN normal complement level positive GOMEZ serum immunofixation normal other serology pending REC plan kidney biopsy next week (need to hold ASA for 1 week before biopsy) transition to oral furosemide follow kidney function and electrolytes Time Spent With Patient Time: Total time spent is greater than 50% in coordination of care (as documented) at patient's floor/unit and/or counseling patient: Progress Note: Quality Stroke Does the patient have a stroke diagnosis?: No
--- NOTE | 2021-04-22 11:08 | P.PNCA_ITS ---
Subjective Subjective Date of Service: 04/22/21 Interval history: Feeling good. Breathing improving. Physical Exam Vital Signs: Last Vital Signs Temp 96.8 F 04/22/21 07:22 Pulse 64 04/22/21 07:22 Resp 18 04/22/21 07:22 BP 150/70 H 04/22/21 07:22 Pulse Ox 100 04/22/21 07:22 Body Mass Index 39.4 GENERAL APPEARANCE: in no acute distress, pleasant. NECK: no carotid bruit, no jugular venous distention. SKIN: no suspicious lesions, warm and dry. HEART: no murmurs, regular rate and rhythm. LUNGS: clear to auscultation bilaterally. ABDOMEN: soft, nontender. EXTREMITIES: no edema. PERIPHERAL PULSES: equal. NEUROLOGIC: No gross deficits, AAO X 3 Results Labs and Meds Result diagrams: 04/22/21 05:45 04/22/21 05:45 Lab results: Laboratory Results - last 24 hr 04/21/21 04/21/21 04/21/21 05:48 05:48 11:40 WBC RBC Hgb Hct MCV MCH MCHC RDW Plt Count MPV Absolute Nucleated RBC Nucleated RBC % (auto) Absolute Retic 0.055 Percent Retic 2.1 H Immature Retic Fraction 14.0 Retic Hgb Equivalent 31.9 Sodium Potassium Chloride Carbon Dioxide Anion Gap BUN Creatinine Estim Creat Clear Calc Estimated GFR POC Glucose 173 H Random Glucose Calcium Lactate Dehydrogenase 282 H B-Natriuretic Peptide 04/21/21 04/21/21 04/22/21 16:35 20:36 05:45 WBC 11.4 H RBC 2.52 L Hgb 7.5 L Hct 23.9 L MCV 94.8 MCH 29.8 MCHC 31.4 RDW 14.1 Plt Count 240 MPV 9.9 Absolute Nucleated RBC 0.000 Nucleated RBC % (auto) 0.0 Absolute Retic Percent Retic Immature Retic Fraction Retic Hgb Equivalent Sodium Potassium Chloride Carbon Dioxide Anion Gap BUN Creatinine Estim Creat Clear Calc Estimated GFR POC Glucose 161 H 210 H Random Glucose Calcium Lactate Dehydrogenase B-Natriuretic Peptide 04/22/21 04/22/21 04/22/21 05:45 05:45 07:19 WBC RBC Hgb Hct MCV MCH MCHC RDW Plt Count MPV Absolute Nucleated RBC Nucleated RBC % (auto) Absolute Retic Percent Retic Immature Retic Fraction Retic Hgb Equivalent Sodium 135 Potassium 3.3 Chloride 101 Carbon Dioxide 25 Anion Gap 12 BUN 45 H Creatinine 4.87 H* Estim Creat Clear Calc 10.4 Estimated GFR 9 POC Glucose 72 Random Glucose 74 Calcium 6.8 L Lactate Dehydrogenase B-Natriuretic Peptide 268 H Progress Note: A&P Assessment and plan (1) Acute diastolic heart failure: Status: Acute (2) New onset atrial fibrillation: Status: Acute Assessment and Plan: 75-year-old female who is presenting for shortness of breath after recent admission for kidney injury when she was volume resuscitated. She was thought to have pneumonia and was started on antibiotics and also given diuretics. With diuresis she has improved significantly. I think she can be on oral diuretics at this stage. She also had new onset atrial fibrillation and her Toprol-XL dose was increased. She has a pending renal biopsy and her aspirin was held due to that. I think once she has the biopsy done and if her hemoglobin is stable we can consider anticoagulation and close monitoring of her hemoglobin. In that situation aspirin should be stopped. Thank you for allowing me to participate in the care of your patient. Please feel free to contact me if you have any questions. Fall Risk Details Current Medications: Current Medications Acetaminophen (Acetaminophen 325 Mg Tablet) 650 mg PO Q6H PRN PRN Reason: Pain, Mild (Pain Scale 1-3) Amitriptyline HCl (Amitriptyline Hcl 10 Mg Tablet) 10 mg PO DAILY [facility] Last Admin: 04/22/21 08:11 Dose: 10 mg Documented by: Amlodipine Besylate (Amlodipine Besylate 10 Mg Tablet) 10 mg PO DAILY [facility]; Protocol Last Admin: 04/22/21 08:11 Dose: 10 mg Documented by: Atorvastatin Calcium (Atorvastatin Calcium 40 Mg Tablet) 40 mg PO BEDTIME [facility] Last Admin: 04/21/21 21:53 Dose: 40 mg Documented by: Azithromycin (Azithromycin 250 Mg Tablet) 250 mg PO Q24H [facility] Last Admin: 04/22/21 08:11 Dose: 250 mg Documented by: Cyanocobalamin (Cyanocobalamin (Vitamin B-12) 1,000 Mcg/Ml Vial) 1,000 mcg IM Q28D [facility] Dextrose (Dextrose 50 % 25 Gm/50 Ml Vial) 25 gm IVPUSH Q15M PRN; Protocol PRN Reason: per Hypoglycemia Standing Ord. Furosemide (Furosemide 40 Mg Tablet) 40 mg PO DAILY [facility]; Protocol Last Admin: 04/22/21 08:11 Dose: 40 mg Documented by: Glucose (Glucose Gel 15 Gm Gel..Gram.) 15 gm PO Q15M PRN; Protocol PRN Reason: per Hypoglycemia Standing Ord. Ceftriaxone Sodium 1 gm/ (Sodium Chloride) 50 mls @ 100 mls/hr IV Q24H [facility] Last Infusion: 04/22/21 08:50 Dose: Infused Documented by: Insulin Glargine (Insulin Glargine,Hum.Rec.Anlog 100 Unit/Ml 10 Ml Vial) 8 unit SUBCUT BEDTIME [facility] Last Admin: 04/21/21 21:55 Dose: 8 unit Documented by: Insulin Human Lispro (Insulin Lispro 100 Unit/Ml 3 Ml Vial) 0 unit SUBCUT QIDACHS [facility]; Protocol Last Admin: 04/22/21 07:55 Dose: Not Given Documented by: Levothyroxine Sodium (Levothyroxine Sodium 25 Mcg Tablet) 25 mcg PO DAILY@0630 [facility] Last Admin: 04/22/21 05:59 Dose: 25 mcg Documented by: Melatonin (Melatonin 3 Mg Tablet) 3 mg PO BEDTIME PRN PRN Reason: Insomnia Metoprolol Succinate (Metoprolol Succinate Er 25 Mg Tab.Er.24h) 25 mg PO BID [facility]; Protocol Last Admin: 04/22/21 09:31 Dose: Not Given Documented by: Montelukast Sodium (Montelukast Sodium 10 Mg Tablet) 10 mg PO BEDTIME [facility] Last Admin: 04/21/21 21:53 Dose: 10 mg Documented by: Ondansetron HCl (Ondansetron Hcl 4 Mg/2 Ml Vial) 4 mg IVPUSH Q8H PRN PRN Reason: Nausea and Vomiting Pharmacy Consult (Consult Rx Perform Med Rec) 1 each MISCELLANE ONCE PRN PRN Reason: Consult order Psyllium Hydrophilic Mucilloid (Psyllium Seed 3.4 Gm Powd.Pack) 3.4 gm PO DAILY [facility] Last Admin: 04/22/21 08:57 Dose: 3.4 gm Documented by: Sodium Chloride (0.9 % Sodium Chloride Flush 3 Ml Syringe) 3 ml IVFLUSH QSHIFT [facility] Last Admin: 04/22/21 08:11 Dose: 3 ml Documented by: Temazepam (Temazepam 15 Mg Capsule) 30 mg PO BEDTIME PRN PRN Reason: Insomnia Tramadol HCl (Tramadol Hcl 50 Mg Tablet) 50 mg PO BEDTIME [facility] Last Admin: 04/21/21 21:53 Dose: 50 mg Documented by: Vitamin D (Cholecalciferol (Vitamin D3) 25 Mcg Tablet) 25 mcg PO DAILY [facility] Last Admin: 04/22/21 08:11 Dose: 25 mcg Documented by: Time Spent With Patient Time: Total time spent is greater than 50% in coordination of care (as documented) at patient's floor/unit and/or counseling patient: Time with patient: 15 - 24 minutes Progress Note: Quality Stroke Does the patient have a stroke diagnosis?: No Procedures Date of Service Date of Service: 04/22/21
[2021-04-22 11:16] VITALS: BP 139/62; PULSE 65; RESP 18; TEMP 36; O2SAT 92
[2021-04-22 12:03] LABS: Glucose, Whole Blood 145 mg/dL (60-115)
--- NOTE | 2021-04-22 13:03 | HO.PM.IMPN ---
Subjective Subjective Date of Service: 04/22/21 Interval History: Being followed for shortness of breath patient is feeling significantly better denies shortness of breath, no chest pain no palpitation, converted to normal sinus rhythm yesterday afternoon after receiving beta-blockers .? History obtained via rough rounder machine Review of Systems General no headache, no dizziness no fever chills.? CVS no chest pain, no palpitation.? Respiratory no cough, no sob.? Gastrointestinal no nausea no vomiting, no abdominal pain Review of Systems: Yes all other systems are reviewed and are negative Physical Exam Vital Signs: Vital Signs: Last Vital Signs Temp 96.8 F 04/22/21 11:16 Pulse 65 04/22/21 11:16 Resp 18 04/22/21 11:16 BP 139/62 04/22/21 11:16 Pulse Ox 92 04/22/21 11:16 Body Mass Index 39.4 General resting comfortably in no acute distress.? Neck? supple no JVD. CVS regular rate rhythm, Respiratory lungs coarse breath sounds left base , no respiratory distress, no wheeze, no rhonchi. Gastrointestinal abdomen soft, nontender, bowel sounds audible,? no guarding , no rigidity. Extremities edema resolved. Neuro nonfocal Skin no rash Psych appropriate affect Objective Data Active Medications Acetaminophen (Acetaminophen 325 Mg Tablet) 650 mg PO Q6H PRN PRN Reason: Pain, Mild (Pain Scale 1-3) Amitriptyline HCl (Amitriptyline Hcl 10 Mg Tablet) 10 mg PO DAILY [facility] Last Admin: 04/22/21 08:11 Dose: 10 mg Documented by: GWEN Amlodipine Besylate (Amlodipine Besylate 10 Mg Tablet) 10 mg PO DAILY [facility]; Protocol Last Admin: 04/22/21 08:11 Dose: 10 mg Documented by: GWEN Atorvastatin Calcium (Atorvastatin Calcium 40 Mg Tablet) 40 mg PO BEDTIME [facility] Last Admin: 04/21/21 21:53 Dose: 40 mg Documented by: KERVIN Azithromycin (Azithromycin 250 Mg Tablet) 250 mg PO Q24H [facility] Last Admin: 04/22/21 08:11 Dose: 250 mg Documented by: GWEN Cyanocobalamin (Cyanocobalamin (Vitamin B-12) 1,000 Mcg/Ml Vial) 1,000 mcg IM Q28D [facility] Dextrose (Dextrose 50 % 25 Gm/50 Ml Vial) 25 gm IVPUSH Q15M PRN; Protocol PRN Reason: per Hypoglycemia Standing Ord. Furosemide (Furosemide 40 Mg Tablet) 40 mg PO DAILY [facility]; Protocol Last Admin: 04/22/21 08:11 Dose: 40 mg Documented by: GWEN Glucose (Glucose Gel 15 Gm Gel..Gram.) 15 gm PO Q15M PRN; Protocol PRN Reason: per Hypoglycemia Standing Ord. Ceftriaxone Sodium 1 gm/ (Sodium Chloride) 50 mls @ 100 mls/hr IV Q24H [facility] Last Infusion: 04/22/21 08:50 Dose: 0 mls/hr Documented by: GWEN Insulin Glargine (Insulin Glargine,Hum.Rec.Anlog 100 Unit/Ml 10 Ml Vial) 8 unit SUBCUT BEDTIME [facility] Last Admin: 04/21/21 21:55 Dose: 8 unit Documented by: KERVIN Insulin Human Lispro (Insulin Lispro 100 Unit/Ml 3 Ml Vial) 0 unit SUBCUT QIDACHS [facility]; Protocol Last Admin: 04/22/21 12:21 Dose: Not Given Documented by: GWEN Non-Admin Reason: No Insulin Coverage Levothyroxine Sodium (Levothyroxine Sodium 25 Mcg Tablet) 25 mcg PO DAILY@0630 [facility] Last Admin: 04/22/21 05:59 Dose: 25 mcg Documented by: KERVIN Melatonin (Melatonin 3 Mg Tablet) 3 mg PO BEDTIME PRN PRN Reason: Insomnia Metoprolol Succinate (Metoprolol Succinate Er 25 Mg Tab.Er.24h) 25 mg PO BID [facility]; Protocol Last Admin: 04/22/21 09:31 Dose: Not Given Documented by: GWEN Non-Admin Reason: Previously Administered Montelukast Sodium (Montelukast Sodium 10 Mg Tablet) 10 mg PO BEDTIME [facility] Last Admin: 04/21/21 21:53 Dose: 10 mg Documented by: KERVIN Ondansetron HCl (Ondansetron Hcl 4 Mg/2 Ml Vial) 4 mg IVPUSH Q8H PRN PRN Reason: Nausea and Vomiting Pharmacy Consult (Consult Rx Perform Med Rec) 1 each MISCELLANE ONCE PRN PRN Reason: Consult order Psyllium Hydrophilic Mucilloid (Psyllium Seed 3.4 Gm Powd.Pack) 3.4 gm PO DAILY [facility] Last Admin: 04/22/21 08:57 Dose: 3.4 gm Documented by: GWEN Sodium Chloride (0.9 % Sodium Chloride Flush 3 Ml Syringe) 3 ml IVFLUSH QSHIFT [facility] Last Admin: 04/22/21 08:11 Dose: 3 ml Documented by: GWEN Temazepam (Temazepam 15 Mg Capsule) 30 mg PO BEDTIME PRN PRN Reason: Insomnia Tramadol HCl (Tramadol Hcl 50 Mg Tablet) 50 mg PO BEDTIME [facility] Last Admin: 04/21/21 21:53 Dose: 50 mg Documented by: KERVIN Vitamin D (Cholecalciferol (Vitamin D3) 25 Mcg Tablet) 25 mcg PO DAILY [facility] Last Admin: 04/22/21 08:11 Dose: 25 mcg Documented by: GWEN Labs CBC & Chem 7: 04/22/21 05:45 04/22/21 05:45 Labs: Laboratory Results - last 24 hr 04/21/21 04/21/21 04/21/21 05:48 05:48 16:35 MCV MCH MCHC RDW Plt Count MPV Absolute Nucleated RBC Nucleated RBC % (auto) Absolute Retic 0.055 Percent Retic 2.1 H Immature Retic Fraction 14.0 Retic Hgb Equivalent 31.9 Anion Gap Estim Creat Clear Calc Estimated GFR POC Glucose 161 H Random Glucose Calcium Lactate Dehydrogenase 282 H B-Natriuretic Peptide 04/21/21 04/22/21 04/22/21 20:36 05:45 05:45 MCV 94.8 MCH 29.8 MCHC 31.4 RDW 14.1 Plt Count 240 MPV 9.9 Absolute Nucleated RBC 0.000 Nucleated RBC % (auto) 0.0 Absolute Retic Percent Retic Immature Retic Fraction Retic Hgb Equivalent Anion Gap 12 Estim Creat Clear Calc 10.4 Estimated GFR 9 POC Glucose 210 H Random Glucose 74 Calcium 6.8 L Lactate Dehydrogenase B-Natriuretic Peptide 04/22/21 04/22/21 04/22/21 05:45 07:19 11:15 MCV MCH MCHC RDW Plt Count MPV Absolute Nucleated RBC Nucleated RBC % (auto) Absolute Retic Percent Retic Immature Retic Fraction Retic Hgb Equivalent Anion Gap Estim Creat Clear Calc Estimated GFR POC Glucose 72 145 H Random Glucose Calcium Lactate Dehydrogenase B-Natriuretic Peptide 268 H Microbiology Microbiology Results: Microbiology 04/20/21 18:02 Blood Culture - Preliminary Blood - Venous No growth after 24 hours. 10/29/21 18:02 Blood Culture - Preliminary Blood - Venous No growth after 24 hours. Assessment and Plan (1) Acute diastolic heart failure: Status: Acute (2) New onset atrial fibrillation: Status: Acute (3) Nephrotic range proteinuria: Status: Acute (4) Chronic kidney disease, stage 4 (severe): Status: Acute (5) Pneumonia: Status: Acute Assessment and Plan: 75-year-old female with past medical history of chronic kidney disease stage 4, history of diabetes on insulin, hypertension recently discharged from [facility] on 04/17 presented to with symptoms of shortness of breath worse with activity, associated with cough no fevers no chills, denies chest pain workup in the emergency room revealed leukocytosis and left base worsening effusion and air bronchogram, patient also noted to have elevated BNP and troponin. Acute diastolic congestive heart failure Resolved Patient responded well to IV Lasix ,feeling better with no shortness of breath, no chest pain Echo showed preserved EF with diastolic dysfunction Troponin elevated but remains flat likely due to CHF/and renal failure Will DC IV Lasix and transition to by mouth Lasix 40 mg daily BNP trended down slight bump in creatinine from 4.4-4.8 follow renal function New onset atrial fibrillation Converted to normal sinus rhythm heart rate in 70, patient remained asymptomatic Echo showed diastolic dysfunction Will change beta-stas to Toprol-XL 25 mg b.i.d. Will hold anticoagulation due to concern for anemia and renal biopsy, patient previously was on aspirin currently on hold that needs to be discontinued of patient placed on Eliquis Pneumonia Patient with no significant symptoms of pneumonia other than coughing but noted to have leukocytosis and left base air bronchograms/ effusion therefore treated with IV ceftriaxone and azithromycin day 3 Will transition to by mouth antibiotics x2 negative times 24 hours Continue supportive care with cough medication Diabetes on insulin Blood sugars stable, continue Diabetic diet/low-dose Lantus 8 units ,follow point of care blood sugars and insulin sliding scale, at home patient takes Novolin 70/30, 20 units b.i.d. hypertension urgency :? Noted elevated blood pressures in emergency, as per granddaughter patient is compliant with medication BP improved since metoprolol dose increased to b.i.d. , continue amlodipine, Follow BP closely Hypercholesteremia :continue atorvastatin. Acute on chronic Anemia likely anemia of chronic disease:? No active blood loss noted Noted to have drop in hematocrit from 26.9-24 today, follow stool guaiacs , retic 2.1,LDH 282 not significantly elevated. hapto pending. Iron studies 04/14/21 not consistent with iron deficiency anemia, ferritin 380, normal B12, and folate Has dark-colored stools likely being on iron supplements Stool for occult blood negative 04/14?,follow repeat stool guaiac Cardio recommend anticoagulation therefore will discuss with Nephrology regarding use of Procrit, patient hesitant to receive blood transfusion explained her that there is less risk with transfusion Follow hematocrit and transfuse if noted to have further drop in hct Chronic kidney disease stage 4 recently discharged from 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 Obesity recommend low-calorie diet dvt prophylax : s/c heparin Quality Stroke Does the patient have a stroke diagnosis?: No VTE Prior VTE?: No VTE Risk Level:: Medical - moderate - high VTE Device Contraindication: Treatment Not Indicated VTE Drug Contraindication: N/A - Med Ordered
[2021-04-22 15:36] VITALS: BP 131/66; PULSE 66; RESP 16; TEMP 36; O2SAT 95
[2021-04-22 16:25] LABS: Glucose, Whole Blood 149 mg/dL (60-115)
[2021-04-22 19:21] VITALS: BP 163/67; PULSE 70; RESP 17; TEMP 36.2; O2SAT 96
[2021-04-22 20:19] LABS: Glucose, Whole Blood 146 mg/dL (60-115)
[2021-04-22] MEDS: Montelukast Sodium 10 MG TABLET PO (21:05)
[2021-04-22] MEDS: traMADoL HCL 50 MG TABLET PO (21:05)
[2021-04-22 21:06] VITALS: BP 163/67; PULSE 70
[2021-04-22] MEDS: Insulin Glargine,Hum.rec.anlog 100 UNIT/ML 10 ML VIAL 8 UNIT SUBCUT (21:06)
[2021-04-22] MEDS: Atorvastatin Calcium 40 MG TABLET PO (21:06)
[2021-04-22] MEDS: Metoprolol Succinate ER 25 MG TAB.ER.24H PO (21:06)
[2021-04-23] VITALS (12 sets, daily range): BP systolic 135–191; BP diastolic 58–87; PULSE 64–79; RESP 16–19; TEMP 36–36.9; O2SAT 95–99
--- NOTE | 2021-04-23 | ECG_ITS ---
Test Reason : eval for sr Blood Pressure : / mmHG Vent. Rate : 069 BPM Atrial Rate : 069 BPM P-R Int : 184 ms QRS Dur : 086 ms QT Int : 452 ms P-R-T Axes : 073 052 028 degrees QTc Int : 484 ms Normal sinus rhythm with sinus arrhythmia Nonspecific T wave abnormality Inferior leads Lateral leads Abnormal ECG When compared with ECG of 22-APR-2021 10:04, No significant change was found Referred By: Lovely Salcedo Electronically Signed By:JANIE ISAACS MD
[2021-04-23 03:49] LABS: HBS Num1 1.04 mIU/mL (0-7.99); HBc Num1 0.03 S/CO (0.00-0.79); HBsAGNum1 0.21 S/CO (0.00-0.99); Hepatitis B Core Antibody Nonreactive (Nonreactive); Hepatitis B Surface Antigen Negative (Negative); ~Hepatitis B Surface Antibody NONREACTIVE (Nonreactive)
[2021-04-23 03:55] LABS: ~HepC Num1 2.86 S/CO (0.00-0.79); ~Hepatitis C Antibody Reactive (Nonreactive)
[2021-04-23] MEDS: Levothyroxine Sodium 25 MCG TABLET PO (06:04)
[2021-04-23 06:19] LABS: Hematocrit 23.2 % (37.0-47.0); Hemoglobin 7.5 g/dl (12.0-16.0); Mean Corpuscular HGB Conc 32.3 g/dl (31.0-35.0); Mean Corpuscular Hemoglobin 30.2 pg (27.0-33.0); Mean Corpuscular Volume 93.5 fL (80.0-98.0); Mean Platelet Volume 9.8 fL (9.4-12.3); Platelet Count 235 X10*3/uL (160-400); Red Blood Count 2.48 X10*6/uL (4.20-5.50); White Blood Count 10.9 X10*3/uL (4.8-10.8)
[2021-04-23 06:35] LABS: Anion Gap 15 (12-20); Blood Urea Nitrogen 46 mg/dL (9-16); Calcium 6.8 mg/dL (8.4-10.2); Carbon Dioxide 24 mmol/L (22-29); Chloride 101 mmol/L (96-108); Glucose Random 135 mg/dL (60-115); Potassium 3.3 mmol/L (3.3-5.1); Sodium 137 mmol/L (135-145)
[2021-04-23 06:44] LABS: Creatinine Clr Calc Pharmacy 10.8; Estimated Glomerular Filt Rate 9
--- NOTE | 2021-04-23 06:47 | PC.NURSE ---
NOTIFIED BY LAB DEPT OF CREATININE LEVEL OF 4.67 AT APPROX., 0637. MESSAGE SENT VIA [email or web address] TEXT TO HOSPITALIST ON DUTY, NO NEW ORDERS AT THIS TIME, BUT NOTED HE READ MESSAGE. WILL ALERT DAY RN IN REPORT, PT RESTING QUIETLY IN BED.
[2021-04-23 07:30] LABS: Glucose, Whole Blood 123 mg/dL (60-115)
[2021-04-23] MEDS: Cholecalciferol (Vitamin D3) 25 MCG TABLET PO (08:35)
[2021-04-23] MEDS: Metoprolol Succinate ER 25 MG TAB.ER.24H PO ×2 (08:35→20:59)
[2021-04-23] MEDS: Amitriptyline HCl 10 MG TABLET PO (08:35)
[2021-04-23] MEDS: Furosemide 40 MG TABLET PO (08:36)
[2021-04-23] MEDS: Azithromycin 250 MG TABLET PO (08:36)
[2021-04-23] MEDS: 0.9 % Sodium Chloride Flush 3 ML SYRINGE IVFLUSH ×2 (08:36→18:14)
[2021-04-23] MEDS: cefTRIAXone sodium 1 GM in 0.9 % Sodium Chloride 50 ML IV (08:36)
[2021-04-23] MEDS: amLODIPine Besylate 10 MG TABLET PO (08:36)
[2021-04-23 08:48] LABS: INTERNATIONAL NORM RATIO 1.1 (0.9-1.1); Prothrombin Time 12.6 SEC (9.9-13.0)
[2021-04-23 08:51] LABS: Partial Thromboplastin Time 40.1 SEC (24.1-38.0)
--- NOTE | 2021-04-23 11:12 | MHC.CLN ---
NUTRITION ADDED 2 GRAM SODIUM TO DIET ORDER DUE TO CKD STAGE 4. DIET=DIABETIC 2000 KCAL, 2 GRAM SODIUM. REVIEW OF PRIOR WEIGHTS SHOWS WEIGHT LOSS X APPROXIMATELY 3 MONTHS =-8.25% NO WEIGHTS PRIOR TO 02/10 TO CONFIRM TREND. BMI=39.4. NO ADDITIONAL NUTRITION INTERVENTIONS AT THIS TIME.
[2021-04-23 11:21] LABS: Glucose, Whole Blood 152 mg/dL (60-115)
--- NOTE | 2021-04-23 11:46 | PM.PNNEP ---
Subjective Subjective Date of Service: 04/23/21 Interval history: Seen AM. Events noted. All recent data reviewed. D/W Son & Med Attending Physical Exam Vital Signs: Vital Signs: Last Vital Signs Temp 97.4 F 04/23/21 11:09 Pulse 79 04/23/21 11:09 Resp 18 04/23/21 11:09 BP 173/69 H 04/23/21 11:09 Pulse Ox 99 04/23/21 11:09 Body Mass Index 39.4 Const: General: no acute distress Orientation/consciousness: patient oriented x3 Eyes: EOM: EOMs intact bilaterally Neck: Neck: Yes supple Resp: Auscultation: diminished lung sounds Cardio: Rate: regular rate GI: Palpation (GI): Soft to palpation Neuro: General: patient oriented x3 and moves all extremities Objective Data Labs CBC & Chem 7: 04/23/21 05:57 04/23/21 05:57 Labs: Laboratory Results - last 24 hr 04/21/21 04/22/21 04/22/21 05:48 11:15 16:17 WBC RBC Hgb Hct MCV MCH MCHC RDW Plt Count MPV Absolute Nucleated RBC Nucleated RBC % (auto) PT INR APTT Sodium Potassium Chloride Carbon Dioxide Anion Gap BUN Creatinine Estim Creat Clear Calc Estimated GFR POC Glucose 145 H 149 H Random Glucose Calcium Hep Bs Antigen Negative Hep Bs Antibody NONREACTIVE Hep B Core Total Ab Nonreactive Hepatitis C Ab (EIA) Reactive H 04/22/21 04/23/21 04/23/21 20:10 05:57 05:57 WBC 10.9 H RBC 2.48 L Hgb 7.5 L Hct 23.2 L MCV 93.5 MCH 30.2 MCHC 32.3 RDW 14.0 Plt Count 235 MPV 9.8 Absolute Nucleated RBC 0.000 Nucleated RBC % (auto) 0.0 PT INR APTT Sodium 137 Potassium 3.3 Chloride 101 Carbon Dioxide 24 Anion Gap 15 BUN 46 H Creatinine 4.67 H* Estim Creat Clear Calc 10.8 Estimated GFR 9 POC Glucose 146 H Random Glucose 135 H Calcium 6.8 L Hep Bs Antigen Hep Bs Antibody Hep B Core Total Ab Hepatitis C Ab (EIA) 04/23/21 04/23/21 04/23/21 07:07 08:25 11:05 WBC RBC Hgb Hct MCV MCH MCHC RDW Plt Count MPV Absolute Nucleated RBC Nucleated RBC % (auto) PT 12.6 INR 1.1 APTT 40.1 H Sodium Potassium Chloride Carbon Dioxide Anion Gap BUN Creatinine Estim Creat Clear Calc Estimated GFR POC Glucose 123 H 152 H Random Glucose Calcium Hep Bs Antigen Hep Bs Antibody Hep B Core Total Ab Hepatitis C Ab (EIA) Microbiology Microbiology Results: Microbiology 04/20/21 18:02 Blood - Venous Blood Culture - Preliminary No growth after 48 hours. 04/20/21 18:02 Blood - Venous Blood Culture - Preliminary No growth after 48 hours. Procedures Date of Service Date of Service: 04/23/21 Assessment & Plan Assessment and plan (1) KYLER (acute kidney injury): Status: Acute Assessment and Plan: KYLER due to compromised kidney perfusion versus progression of underlying kidney disease( likely latter) Has nephrotic range proteinuria which signals risk of abrupt kidney function deterioration known severe CKD due to DM/HTN normal complement level positive GOMEZ & Hep C antibody serum immunofixation normal other serology pending Will benefit from kidney biopsy tomorrow (ASA has been on hold for 1 week) Will neet better BP control before renal biopsy tomorrow Could switch from Amlodipine to Nifedipine 60 mg if needed Time Spent With Patient Time: Total time spent is greater than 50% in coordination of care (as documented) at patient's floor/unit and/or counseling patient: Progress Note: Quality Stroke Does the patient have a stroke diagnosis?: No
[2021-04-23] MEDS: Insulin Lispro 100 UNIT/ML 3 ML VIAL SUBCUT ×2 (12:03→20:49)
[2021-04-23 13:32] LABS: Haptoglobin 245 mg/dL (43-212)
--- NOTE | 2021-04-23 13:44 | P.PNCA_ITS ---
Subjective Subjective Date of Service: 04/23/21 <MARVA Araiza - Last Filed: 04/23/21 14:02> 04/23/21 <Sunny Bailey MD - Last Filed: 04/23/21 17:03> Principal diagnosis: PNA, new afib, CKD <MARVA Araiza - Last Filed: 04/23/21 14:02> Interval history: Cardiology follow up for afib. Seen at 1230. Today she reports that she is feeling better. Her breathing is comfortable but not quite back to normal. Has been using O2 intermittently. Coughing at times. No chest pains, palpitations, dizziness. Reports being steady on feet when walking to [place]. Son in room. 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 <MARVA Araiza - Last Filed: 04/23/21 14:02> Review of Systems Review of Systems as above <MARVA Araiza - Last Filed: 04/23/21 14:02> Physical Exam Vital Signs: Last Vital Signs Temp 97.4 F 04/23/21 11:09 Pulse 79 04/23/21 11:09 Resp 18 04/23/21 11:09 BP 173/69 H 04/23/21 11:09 Pulse Ox 99 04/23/21 11:09 Body Mass Index 39.4 <MARVA Araiza - Last Filed: 04/23/21 14:02> Const General: cooperative, no acute distress, alert and awake <MARVA Araiza - Last Filed: 04/23/21 14:02> Orientation/consciousness: patient oriented x3 <MARVA Araiza - Last Filed: 04/23/21 14:02> Neck Neck: Yes normal visual inspection and Yes no JVD <MARVA Araiza Last Filed: 04/23/21 14:02> Resp Effort & Inspection: normal respiratory effort, able to speak in complete sentences and not labored <MARVA Araiza - Last Filed: 04/23/21 14:02> Auscultation: clear to auscultation bilaterally, no crackles, no rales, no rhonchi and no wheezes <MARVA Araiza Last Filed: 04/23/21 14:02> Cardio Palpation: normal PMI <MARVA Araiza Last Filed: 04/23/21 14:02> Rate: regular rate <MARVA Araiza Last Filed: 04/23/21 14:02> Rhythm: regular rhythm <MARVA Araiza Last Filed: 04/23/21 14:02> Heart sounds: S1 normal heart sound present and S2 normal heart sound present <MARVA Araiza - Last Filed: 04/23/21 14:02> Peripheral pulses: Peripheral pulses 2+ throughout <MARVA Araiza Last Filed: 04/23/21 14:02> GI Inspection: Yes normal to inspection <MARVA Araiza Last Filed: 04/23/21 14:02> Neuro General: patient oriented x3 <MARVA Araiza Last Filed: 04/23/21 14:02> Extrem General: Yes normal to inspection and No edema <MARVA Araiza Last Filed: 04/23/21 14:02> Results Labs and Meds Result diagrams: : 04/23/21 05:57 04/23/21 05:57 <MARVA Araiza Last Filed: 04/23/21 14:02> Lab results: Laboratory Results - last 24 hr 04/21/21 04/21/21 04/22/21 05:48 05:48 16:17 WBC RBC Hgb Hct MCV MCH MCHC RDW Plt Count MPV Absolute Nucleated RBC Nucleated RBC % (auto) Haptoglobin 245 H PT INR APTT Sodium Potassium Chloride Carbon Dioxide Anion Gap BUN Creatinine Estim Creat Clear Calc Estimated GFR POC Glucose 149 H Random Glucose Calcium Hep Bs Antigen Negative Hep Bs Antibody NONREACTIVE Hep B Core Total Ab Nonreactive Hepatitis C Ab (EIA) Reactive H 04/22/21 04/23/21 04/23/21 20:10 05:57 05:57 WBC 10.9 H RBC 2.48 L Hgb 7.5 L Hct 23.2 L MCV 93.5 MCH 30.2 MCHC 32.3 RDW 14.0 Plt Count 235 MPV 9.8 Absolute Nucleated RBC 0.000 Nucleated RBC % (auto) 0.0 Haptoglobin PT INR APTT Sodium 137 Potassium 3.3 Chloride 101 Carbon Dioxide 24 Anion Gap 15 BUN 46 H Creatinine 4.67 H* Estim Creat Clear Calc 10.8 Estimated GFR 9 POC Glucose 146 H Random Glucose 135 H Calcium 6.8 L Hep Bs Antigen Hep Bs Antibody Hep B Core Total Ab Hepatitis C Ab (EIA) 04/23/21 04/23/21 04/23/21 07:07 08:25 11:05 WBC RBC Hgb Hct MCV MCH MCHC RDW Plt Count MPV Absolute Nucleated RBC Nucleated RBC % (auto) Haptoglobin PT 12.6 INR 1.1 APTT 40.1 H Sodium Potassium Chloride Carbon Dioxide Anion Gap BUN Creatinine Estim Creat Clear Calc Estimated GFR POC Glucose 123 H 152 H Random Glucose Calcium Hep Bs Antigen Hep Bs Antibody Hep B Core Total Ab Hepatitis C Ab (EIA) <MARVA Araiza - Last Filed: 04/23/21 14:02> Progress Note: A&P Assessment and plan (1) New onset atrial fibrillation: Status: Acute <MARVA Araiza - Last Filed: 04/23/21 14:02> Assessment and Plan: Admit with sob/ PNA. EKG/ Tele confirmed new atrial fibrillation. Treated with rate control using Metoprolol ( home dose doubled). Tele this am shows SR 60-70s. EKG today confirms SR with SA. No reports of palpitation. Echo shows EF 60-65%, normal RV, LA normal size, mild pulm HTN. Continue Metoprolol at increased dose. Ongoing tele monitoring while inpt. CHADSVASc 4. Anticoagulation is indication. Pt is anemic with hgb currently 7.5. Hx includes iron deficiency and pernicious anemia. Recommend eval of her anemia to help determine if anticoagulation can be used on her or not. Not on anticoagulation at this time. There are plans for kidney bx tomorrow. We will follow <MARVA Araiza - Last Filed: 04/23/21 14:02> Admit with sob/ PNA. EKG/ Tele confirmed new atrial fibrillation. Treated with rate control using Metoprolol ( home dose doubled). Tele this am shows SR 60-70s. EKG today confirms SR with SA. No reports of palpitation. Echo shows EF 60-65%, normal RV, LA normal size, mild pulm HTN. Continue Metoprolol at increased dose. Ongoing tele monitoring while inpt. CHADSVASc 4. Anticoagulation is indication. Pt is anemic with hgb currently 7.5. Hx includes iron deficiency and pernicious anemia. Recommend eval of her anemia to help determine if anticoagulation can be used on her or not. Not on anticoagulation at this time. There are plans for kidney bx tomorrow. We will follow Case discussed with Lovely Salcedo. Patient remains in sinus rhythm. Noted to be significantly anemic that requires further workup. Question iron deficient anemia and question source. Till this is worked up would hold off on oral anticoagulation therapy. Once a causes known and corrected can start oral anticoagulation therapy given that she has CHADSVASc score of 4. Continue metoprolol therapy. Outpatient Holter monitor will be pursued. Will sign of the case and follow as outpatient. <Sunny Bailey MD - Last Filed: 04/23/21 17:03> (2) Chronic kidney disease, stage 4 (severe): Status: Acute <MARVA Araiza - Last Filed: 04/23/21 14:02> Assessment and Plan: Following with nephrology <MARVA Araiza - Last Filed: 04/23/21 14:02> (3) Pneumonia: Status: Acute <MARVA Ariaza - Last Filed: 04/23/21 14:02> Assessment and Plan: Being managed by hospitalist <MARVA Araiza - Last Filed: 04/23/21 14:02> (4) Anemia: Status: Acute <MARVA Araiza - Last Filed: 04/23/21 14:02> Fall Risk Details Current Medications: Current Medications Acetaminophen (Acetaminophen 325 Mg Tablet) 650 mg PO Q6H PRN PRN Reason: Pain, Mild (Pain Scale 1-3) Amitriptyline HCl (Amitriptyline Hcl 10 Mg Tablet) 10 mg PO DAILY [facility] Last Admin: 04/23/21 08:35 Dose: 10 mg Documented by: Amlodipine Besylate (Amlodipine Besylate 10 Mg Tablet) 10 mg PO DAILY [facility]; Protocol Last Admin: 04/23/21 08:36 Dose: 10 mg Documented by: Atorvastatin Calcium (Atorvastatin Calcium 40 Mg Tablet) 40 mg PO BEDTIME [facility] Last Admin: 04/22/21 21:06 Dose: 40 mg Documented by: Azithromycin (Azithromycin 250 Mg Tablet) 250 mg PO Q24H [facility] Last Admin: 04/23/21 08:36 Dose: 250 mg Documented by: Cyanocobalamin (Cyanocobalamin (Vitamin B-12) 1,000 Mcg/Ml Vial) 1,000 mcg IM Q28D [facility] Dextrose (Dextrose 50 % 25 Gm/50 Ml Vial) 25 gm IVPUSH Q15M PRN; Protocol PRN Reason: per Hypoglycemia Standing Ord. Furosemide (Furosemide 40 Mg Tablet) 40 mg PO DAILY [facility]; Protocol Last Admin: 04/23/21 08:36 Dose: 40 mg Documented by: Glucose (Glucose Gel 15 Gm Gel..Gram.) 15 gm PO Q15M PRN; Protocol PRN Reason: per Hypoglycemia Standing Ord. Ceftriaxone Sodium 1 gm/ (Sodium Chloride) 50 mls @ 100 mls/hr IV Q24H [facility] Last Infusion: 04/23/21 09:11 Dose: Infused Documented by: Insulin Glargine (Insulin Glargine,Hum.Rec.Anlog 100 Unit/Ml 10 Ml Vial) 8 unit SUBCUT BEDTIME [facility] Last Admin: 04/22/21 21:06 Dose: 8 unit Documented by: Insulin Human Lispro (Insulin Lispro 100 Unit/Ml 3 Ml Vial) 0 unit SUBCUT QIDACHS [facility]; Protocol Last Admin: 04/23/21 12:03 Dose: 2 unit Documented by: Levothyroxine Sodium (Levothyroxine Sodium 25 Mcg Tablet) 25 mcg PO DAILY@0630 [facility] Last Admin: 04/23/21 06:04 Dose: 25 mcg Documented by: Melatonin (Melatonin 3 Mg Tablet) 3 mg PO BEDTIME PRN PRN Reason: Insomnia Metoprolol Succinate (Metoprolol Succinate Er 25 Mg Tab.Er.24h) 25 mg PO BID [facility]; Protocol Last Admin: 04/23/21 08:35 Dose: 25 mg Documented by: Montelukast Sodium (Montelukast Sodium 10 Mg Tablet) 10 mg PO BEDTIME [facility] Last Admin: 04/22/21 21:05 Dose: 10 mg Documented by: Ondansetron HCl (Ondansetron Hcl 4 Mg/2 Ml Vial) 4 mg IVPUSH Q8H PRN PRN Reason: Nausea and Vomiting Pharmacy Consult (Consult Rx Perform Med Rec) 1 each MISCELLANE ONCE PRN PRN Reason: Consult order Psyllium Hydrophilic Mucilloid (Psyllium Seed 3.4 Gm Powd.Pack) 3.4 gm PO DAILY [facility] Last Admin: 04/23/21 08:37 Dose: 3.4 gm Documented by: Sodium Chloride (0.9 % Sodium Chloride Flush 3 Ml Syringe) 3 ml IVFLUSH QSHIFT [facility] Last Admin: 04/23/21 08:36 Dose: 3 ml Documented by: Temazepam (Temazepam 15 Mg Capsule) 30 mg PO BEDTIME PRN PRN Reason: Insomnia Tramadol HCl (Tramadol Hcl 50 Mg Tablet) 50 mg PO BEDTIME [facility] Last Admin: 04/22/21 21:05 Dose: 50 mg Documented by: Vitamin D (Cholecalciferol (Vitamin D3) 25 Mcg Tablet) 25 mcg PO DAILY [facility] Last Admin: 04/23/21 08:35 Dose: 25 mcg Documented by: <MARVA Araiza - Last Filed: 04/23/21 14:02> Time Spent With Patient Time: Total time spent is greater than 50% in coordination of care (as documented) at patient's floor/unit and/or counseling patient: 26 <MARVA Araiza - Last Filed: 04/23/21 14:02> Time with patient: 25 - 35 minutes <MARVA Araiza - Last Filed: 04/23/21 14:02> Progress Note: Quality Stroke Does the patient have a stroke diagnosis?: No <MARVA Araiza - Last Filed: 04/23/21 14:02> Procedures Date of Service Date of Service: 04/23/21 <MARVA Araiza - Last Filed: 04/23/21 14:02>
--- NOTE | 2021-04-23 15:14 | HO.PM.IMPN ---
Subjective Subjective Date of Service: 04/23/21 Interval History: Subjectively improved since admission. No acute issues awaiting biopsy in a.m. Review of Systems Denies chest pain Denies shortness of breath Denies nausea vomiting diarrhea Physical Exam Vital Signs: Vital Signs: Last Vital Signs Temp 97.6 F 04/23/21 15:11 Pulse 67 04/23/21 15:11 Resp 18 04/23/21 15:11 BP 135/58 L 04/23/21 15:11 Pulse Ox 95 04/23/21 15:11 Body Mass Index 39.4 Const: Other: No acute distress Resp: Other: Clear to auscultation bilateral; no rales rhonchi or wheezes Cardio: Other: No S4; positive S1-S2; no S3 murmurs of recount GI: Other: Soft nontender nondistended with normoactive bowel sounds no peritoneal signs Extrem: Other: No edema bilaterally Objective Data Active Medications Acetaminophen (Acetaminophen 325 Mg Tablet) 650 mg PO Q6H PRN PRN Reason: Pain, Mild (Pain Scale 1-3) Amitriptyline HCl (Amitriptyline Hcl 10 Mg Tablet) 10 mg PO DAILY [facility] Last Admin: 04/23/21 08:35 Dose: 10 mg Documented by: MALGORZATA Amlodipine Besylate (Amlodipine Besylate 10 Mg Tablet) 10 mg PO DAILY [facility]; Protocol Last Admin: 04/23/21 08:36 Dose: 10 mg Documented by: MALGORZATA Atorvastatin Calcium (Atorvastatin Calcium 40 Mg Tablet) 40 mg PO BEDTIME [facility] Last Admin: 04/22/21 21:06 Dose: 40 mg Documented by: NASIM Azithromycin (Azithromycin 250 Mg Tablet) 250 mg PO Q24H [facility] Last Admin: 04/23/21 08:36 Dose: 250 mg Documented by: MALGORZATA Cyanocobalamin (Cyanocobalamin (Vitamin B-12) 1,000 Mcg/Ml Vial) 1,000 mcg IM Q28D [facility] Dextrose (Dextrose 50 % 25 Gm/50 Ml Vial) 25 gm IVPUSH Q15M PRN; Protocol PRN Reason: per Hypoglycemia Standing Ord. Furosemide (Furosemide 40 Mg Tablet) 40 mg PO DAILY [facility]; Protocol Last Admin: 04/23/21 08:36 Dose: 40 mg Documented by: MALGORZATA Glucose (Glucose Gel 15 Gm Gel..Gram.) 15 gm PO Q15M PRN; Protocol PRN Reason: per Hypoglycemia Standing Ord. Ceftriaxone Sodium 1 gm/ (Sodium Chloride) 50 mls @ 100 mls/hr IV Q24H [facility] Last Infusion: 04/23/21 09:11 Dose: 0 mls/hr Documented by: MALGORZATA Insulin Glargine (Insulin Glargine,Hum.Rec.Anlog 100 Unit/Ml 10 Ml Vial) 8 unit SUBCUT BEDTIME [facility] Last Admin: 04/22/21 21:06 Dose: 8 unit Documented by: NASIM Insulin Human Lispro (Insulin Lispro 100 Unit/Ml 3 Ml Vial) 0 unit SUBCUT QIDACHS [facility]; Protocol Last Admin: 04/23/21 12:03 Dose: 2 unit Documented by: MALGORZATA Levothyroxine Sodium (Levothyroxine Sodium 25 Mcg Tablet) 25 mcg PO DAILY@0630 [facility] Last Admin: 04/23/21 06:04 Dose: 25 mcg Documented by: BLAKE Melatonin (Melatonin 3 Mg Tablet) 3 mg PO BEDTIME PRN PRN Reason: Insomnia Metoprolol Succinate (Metoprolol Succinate Er 25 Mg Tab.Er.24h) 25 mg PO BID [facility]; Protocol Last Admin: 04/23/21 08:35 Dose: 25 mg Documented by: MALGORZATA Montelukast Sodium (Montelukast Sodium 10 Mg Tablet) 10 mg PO BEDTIME [facility] Last Admin: 04/22/21 21:05 Dose: 10 mg Documented by: NASIM Ondansetron HCl (Ondansetron Hcl 4 Mg/2 Ml Vial) 4 mg IVPUSH Q8H PRN PRN Reason: Nausea and Vomiting Pharmacy Consult (Consult Rx Perform Med Rec) 1 each MISCELLANE ONCE PRN PRN Reason: Consult order Psyllium Hydrophilic Mucilloid (Psyllium Seed 3.4 Gm Powd.Pack) 3.4 gm PO DAILY [facility] Last Admin: 04/23/21 08:37 Dose: 3.4 gm Documented by: MALGORZATA Sodium Chloride (0.9 % Sodium Chloride Flush 3 Ml Syringe) 3 ml IVFLUSH QSHIFT [facility] Last Admin: 04/23/21 08:36 Dose: 3 ml Documented by: MALGORZATA Temazepam (Temazepam 15 Mg Capsule) 30 mg PO BEDTIME PRN PRN Reason: Insomnia Tramadol HCl (Tramadol Hcl 50 Mg Tablet) 50 mg PO BEDTIME [facility] Last Admin: 04/22/21 21:05 Dose: 50 mg Documented by: NASIM Vitamin D (Cholecalciferol (Vitamin D3) 25 Mcg Tablet) 25 mcg PO DAILY [facility] Last Admin: 04/23/21 08:35 Dose: 25 mcg Documented by: MALGORZATA Labs CBC & Chem 7: 04/23/21 05:57 04/23/21 05:57 Labs: Laboratory Results - last 24 hr 04/21/21 04/21/21 04/22/21 05:48 05:48 16:17 MCV MCH MCHC RDW Plt Count MPV Absolute Nucleated RBC Nucleated RBC % (auto) Haptoglobin 245 H PT INR APTT Anion Gap Estim Creat Clear Calc Estimated GFR POC Glucose 149 H Random Glucose Calcium Hep Bs Antigen Negative Hep Bs Antibody NONREACTIVE Hep B Core Total Ab Nonreactive Hepatitis C Ab (EIA) Reactive H 04/22/21 04/23/21 04/23/21 20:10 05:57 05:57 MCV 93.5 MCH 30.2 MCHC 32.3 RDW 14.0 Plt Count 235 MPV 9.8 Absolute Nucleated RBC 0.000 Nucleated RBC % (auto) 0.0 Haptoglobin PT INR APTT Anion Gap 15 Estim Creat Clear Calc 10.8 Estimated GFR 9 POC Glucose 146 H Random Glucose 135 H Calcium 6.8 L Hep Bs Antigen Hep Bs Antibody Hep B Core Total Ab Hepatitis C Ab (EIA) 04/23/21 04/23/21 04/23/21 07:07 08:25 11:05 MCV MCH MCHC RDW Plt Count MPV Absolute Nucleated RBC Nucleated RBC % (auto) Haptoglobin PT 12.6 INR 1.1 APTT 40.1 H Anion Gap Estim Creat Clear Calc Estimated GFR POC Glucose 123 H 152 H Random Glucose Calcium Hep Bs Antigen Hep Bs Antibody Hep B Core Total Ab Hepatitis C Ab (EIA) Microbiology Microbiology Results: Microbiology 04/20/21 18:02 Blood Culture - Preliminary Blood - Venous No growth after 48 hours. 04/20/21 18:02 Blood Culture - Preliminary Blood - Venous No growth after 48 hours. Assessment and Plan (1) Acute diastolic heart failure: Status: Acute (2) New onset atrial fibrillation: Status: Acute (3) Nephrotic range proteinuria: Status: Acute Assessment and Plan: 75-year-old female with past medical history of chronic kidney disease stage 4, history of diabetes on insulin, hypertension recently discharged from [facility] on 04/17 presented to with symptoms of shortness of breath worse with activity, associated with cough no fevers no chills, denies chest pain.Workup in the emergency room revealed leukocytosis/ left base worsening effusion and air bronchograms , patient also noted to have elevated BNP and troponin. 1. Shortness of breath Air bronchograms on plain film; started on IV azithromycin and ceftriaxone with improvement noted. Continue follow-up clinically 2. Elevated BNP/new onset AFib Echo demonstrates EF 60 65% normal RV LA. Mild pulmonary hypertension Will continue beta-stas and increase as indicated 3. CKD.... Query secondary to acute kidney injury from hyper perfusion versus progression of underlying disease For CT-guided biopsy of kidney in a.m. 4. Hypertension Poorly control; will DC amlodipine in favor of nifedipine. Titrate as indicated Full code/heparin D/C secondary to biopsy Quality Stroke Does the patient have a stroke diagnosis?: No VTE Prior VTE?: No VTE Risk Level:: Medical - moderate - high VTE Device Contraindication: Treatment Not Indicated VTE Drug Contraindication: N/A - Med Ordered
[2021-04-23 16:16] LABS: Myeloperoxidase Antibody <1.0 AI; Proteinase 3 PR3 Antibodies <1.0 AI
[2021-04-23 16:18] LABS: Glucose, Whole Blood 121 mg/dL (60-115)
[2021-04-23] MEDS: Furosemide 20 MG/2 ML VIAL IVPUSH (18:14)
[2021-04-23 20:28] LABS: Glucose, Whole Blood 188 mg/dL (60-115)
[2021-04-23] MEDS: Insulin Glargine,Hum.rec.anlog 100 UNIT/ML 10 ML VIAL 8 UNIT SUBCUT (20:49)
[2021-04-23] MEDS: Atorvastatin Calcium 40 MG TABLET PO (20:58)
[2021-04-23] MEDS: Montelukast Sodium 10 MG TABLET PO (20:58)
[2021-04-23] MEDS: traMADoL HCL 50 MG TABLET PO (20:58)
[2021-04-24] VITALS (17 sets, daily range): BP systolic 141–192; BP diastolic 52–91; PULSE 64–83; RESP 16–19; TEMP 35.9–37; O2SAT 94–97
[2021-04-24 05:55] LABS: MANUAL DIFF FLAG NO
[2021-04-24 06:11] LABS: Basophils Percent Auto 0.3 % (0-2); Eosinophils Percent Auto 8.3 % (0-4); Hematocrit 32.6 % (37.0-47.0); Hemoglobin 10.6 g/dl (12.0-16.0); Imm Gran Abs Auto 0.06 X10*3/uL (0.00-0.03); Imm Gran Pct Auto 0.5 % (0.0-0.4); Lymphocytes Absolute Auto 1.2 X10*3/uL (1.2-4.9); Lymphocytes Percent Auto 9.7 % (20-40); Mean Corpuscular HGB Conc 32.5 g/dl (31.0-35.0); Mean Corpuscular Hemoglobin 30.8 pg (27.0-33.0); Mean Corpuscular Volume 94.8 fL (80.0-98.0); Mean Platelet Volume 9.8 fL (9.4-12.3); Monocytes Absolute Auto 0.7 X10*3/uL (0.1-1.2); Monocytes Percent Auto 5.5 % (2-11); Neutrophils Absolute Auto 9.13 x10*3/uL (2.0-8.3); Neutrophils Percent Auto 75.7 % (45-73); Platelet Count 274 X10*3/uL (160-400); Red Blood Count 3.44 X10*6/uL (4.20-5.50); Red Cell Distribution Width 13.5 % (11.0-16.0); White Blood Count 12.1 X10*3/uL (4.8-10.8)
[2021-04-24 06:19] LABS: Alanine Aminotransferase 13 U/L (0-31); Albumin Level 2.9 g/dL (3.5-5.0); Alkaline Phosphatase 111 U/L (39-117); Anion Gap 16 (12-20); Aspartate Amino Transferase 19 U/L (5-31); Bilirubin Total 2.3 mg/dL (0.0-1.0); Blood Urea Nitrogen 44 mg/dL (9-16); Calcium 6.8 mg/dL (8.4-10.2); Carbon Dioxide 24 mmol/L (22-29); Chloride 102 mmol/L (96-108); Glucose Fasting 110 mg/dL (60-99); Potassium 3.4 mmol/L (3.3-5.1); Sodium 139 mmol/L (135-145); Total Protein 5.4 g/dL (6.5-8.0)
[2021-04-24] MEDS: Levothyroxine Sodium 25 MCG TABLET PO (06:28)
[2021-04-24 06:39] LABS: Creatinine Clr Calc Pharmacy 11.4; Estimated Glomerular Filt Rate 10
[2021-04-24 07:44] LABS: Glucose, Whole Blood 112 mg/dL (60-115)
[2021-04-24] MEDS: Amitriptyline HCl 10 MG TABLET PO (07:50)
[2021-04-24] MEDS: Metoprolol Succinate ER 25 MG TAB.ER.24H PO ×2 (07:50→21:20)
[2021-04-24] MEDS: Azithromycin 250 MG TABLET PO (07:50)
[2021-04-24] MEDS: cefTRIAXone sodium 1 GM in 0.9 % Sodium Chloride 50 ML IV (07:51)
[2021-04-24] MEDS: Furosemide 40 MG TABLET PO (07:51)
[2021-04-24] MEDS: 0.9 % Sodium Chloride Flush 3 ML SYRINGE IVFLUSH ×3 (07:51→23:15)
[2021-04-24] MEDS: NIFEdipine ER 60 MG TAB.ER.24 PO (07:51)
[2021-04-24] MEDS: Cholecalciferol (Vitamin D3) 25 MCG TABLET PO (07:51)
[2021-04-24 10:09] LABS: Glucose, Whole Blood 106 mg/dL (60-115)
--- NOTE | 2021-04-24 10:29 | PM.PNNEP ---
Subjective Subjective Date of Service: 04/24/21 Principal diagnosis: PNA, new afib, CKD Interval history: Events noted. All recent data reviewed Physical Exam Vital Signs: Vital Signs: Last Vital Signs Temp 97.4 F 04/24/21 10:10 Pulse 68 04/24/21 10:10 Resp 18 04/24/21 10:10 BP 183/91 H 04/24/21 10:10 Pulse Ox 96 04/24/21 10:10 Body Mass Index 39.4 Const: General: no acute distress Eyes: EOM: EOMs intact bilaterally Neck: Neck: Yes supple Resp: Auscultation: diminished lung sounds Cardio: Rate: regular rate GI: Palpation (GI): Soft to palpation Neuro: General: moves all extremities Objective Data Labs CBC & Chem 7: 04/24/21 05:25 04/24/21 05:25 Labs: Laboratory Results - last 24 hr 04/21/21 04/21/21 04/23/21 05:48 05:48 11:05 WBC RBC Hgb Hct MCV MCH MCHC RDW Plt Count MPV Immature Gran % (Auto) Neut % (Auto) Lymph % (Auto) [place] % (Auto) Eos % (Auto) Baso % (Auto) Lymph # (Auto) [place] # (Auto) Eos # (Auto) Baso # (Auto) Abs Immat Gran (auto) Absolute Neuts (auto) Absolute Nucleated RBC Nucleated RBC % (auto) Haptoglobin 245 H Sodium Potassium Chloride Carbon Dioxide Anion Gap BUN Creatinine Estim Creat Clear Calc Estimated GFR POC Glucose 152 H Fasting Glucose Calcium Total Bilirubin AST ALT Alkaline Phosphatase Total Protein Albumin Proteinase 3 (PR3) Ab <1.0 Myeloperoxidase Ab <1.0 Blood Type Antibody Screen Crossmatch 04/23/21 04/23/21 04/23/21 16:10 18:08 20:23 WBC RBC Hgb Hct MCV MCH MCHC RDW Plt Count MPV Immature Gran % (Auto) Neut % (Auto) Lymph % (Auto) [place] % (Auto) Eos % (Auto) Baso % (Auto) Lymph # (Auto) [place] # (Auto) Eos # (Auto) Baso # (Auto) Abs Immat Gran (auto) Absolute Neuts (auto) Absolute Nucleated RBC Nucleated RBC % (auto) Haptoglobin Sodium Potassium Chloride Carbon Dioxide Anion Gap BUN Creatinine Estim Creat Clear Calc Estimated GFR POC Glucose 121 H 188 H Fasting Glucose Calcium Total Bilirubin AST ALT Alkaline Phosphatase Total Protein Albumin Proteinase 3 (PR3) Ab Myeloperoxidase Ab Blood Type A Positive Antibody Screen NEGATIVE Crossmatch See Detail 04/24/21 04/24/21 04/24/21 05:25 05:25 07:39 WBC 12.1 H RBC 3.44 L D Hgb 10.6 L D Hct 32.6 L D MCV 94.8 MCH 30.8 MCHC 32.5 RDW 13.5 Plt Count 274 MPV 9.8 Immature Gran % (Auto) 0.5 H Neut % (Auto) 75.7 H Lymph % (Auto) 9.7 L [place] % (Auto) 5.5 Eos % (Auto) 8.3 H Baso % (Auto) 0.3 Lymph # (Auto) 1.2 [place] # (Auto) 0.7 Eos # (Auto) 1.0 H Baso # (Auto) 0.0 Abs Immat Gran (auto) 0.06 H Absolute Neuts (auto) 9.13 H Absolute Nucleated RBC 0.000 Nucleated RBC % (auto) 0.0 Haptoglobin Sodium 139 Potassium 3.4 Chloride 102 Carbon Dioxide 24 Anion Gap 16 BUN 44 H Creatinine 4.44 H* Estim Creat Clear Calc 11.4 Estimated GFR 10 POC Glucose 112 Fasting Glucose 110 H Calcium 6.8 L Total Bilirubin 2.3 H AST 19 ALT 13 Alkaline Phosphatase 111 Total Protein 5.4 L Albumin 2.9 L Proteinase 3 (PR3) Ab Myeloperoxidase Ab Blood Type Antibody Screen Crossmatch 04/24/21 10:06 WBC RBC Hgb Hct MCV MCH MCHC RDW Plt Count MPV Immature Gran % (Auto) Neut % (Auto) Lymph % (Auto) [place] % (Auto) Eos % (Auto) Baso % (Auto) Lymph # (Auto) [place] # (Auto) Eos # (Auto) Baso # (Auto) Abs Immat Gran (auto) Absolute Neuts (auto) Absolute Nucleated RBC Nucleated RBC % (auto) Haptoglobin Sodium Potassium Chloride Carbon Dioxide Anion Gap BUN Creatinine Estim Creat Clear Calc Estimated GFR POC Glucose 106 Fasting Glucose Calcium Total Bilirubin AST ALT Alkaline Phosphatase Total Protein Albumin Proteinase 3 (PR3) Ab Myeloperoxidase Ab Blood Type Antibody Screen Crossmatch Microbiology Microbiology Results: Microbiology 04/20/21 18:02 Blood - Venous Blood Culture - Preliminary No growth after 48 hours. 04/20/21 18:02 Blood - Venous Blood Culture - Preliminary No growth after 48 hours. Procedures Date of Service Date of Service: 04/24/21 Assessment & Plan Assessment and plan (1) KYELR (acute kidney injury): Status: Acute Assessment and Plan: KYLER due to compromised kidney perfusion versus progression of underlying kidney disease( likely latter) Has nephrotic range proteinuria which signals risk of abrupt kidney function deterioration known severe CKD due to DM/HTN; normal complement level positive GOMEZ & Hep C antibody; serum immunofixation normal other serology pending Will benefit from kidney biopsy today (ASA has been on hold for 1 week) Needs better BP control ; Could increase Nifedipine to 120 mg if needed Time Spent With Patient Time: Total time spent is greater than 50% in coordination of care (as documented) at patient's floor/unit and/or counseling patient: Progress Note: Quality Stroke Does the patient have a stroke diagnosis?: No
--- NOTE | 2021-04-24 12:04 | HO.RADPN ---
RADIOLOGY Narrative Narrative: CT guided right lower pole renal biopsy performed using coaxial sysem. 3 18g specimens. No complication.
--- NOTE | 2021-04-24 17:00 | P.PNIM_ITS ---
Subjective Subjective Date of Service: 04/24/21 Interval History: No acute issues overnight. Successful CT-guided biopsy of right kidney today Review of Systems Denies chest pain Denies shortness of breath Denied nausea vomiting diarrhea Physical Exam Vital Signs: Vital Signs: Last Vital Signs Temp 96.9 F 04/24/21 15:23 Pulse 73 04/24/21 15:23 Resp 19 04/24/21 15:23 BP 156/69 H 04/24/21 15:23 Pulse Ox 97 04/24/21 14:02 Body Mass Index 39.4 Const: Other: No acute distress Resp: Other: Clear to auscultation bilateral; no rales rhonchi or wheezes Cardio: Other: No S4; positive S1-S2; no S3 murmurs of recount GI: Other: Soft nontender nondistended with normoactive bowel sounds no peritoneal signs Extrem: Other: No edema bilaterally Objective Data Active Medications Acetaminophen (Acetaminophen 325 Mg Tablet) 650 mg PO Q6H PRN PRN Reason: Pain, Mild (Pain Scale 1-3) Amitriptyline HCl (Amitriptyline Hcl 10 Mg Tablet) 10 mg PO DAILY [facility] Last Admin: 04/24/21 07:50 Dose: 10 mg Documented by: ALISSON Atorvastatin Calcium (Atorvastatin Calcium 40 Mg Tablet) 40 mg PO BEDTIME [facility] Last Admin: 04/23/21 20:58 Dose: 40 mg Documented by: NASIM Azithromycin (Azithromycin 250 Mg Tablet) 250 mg PO Q24H [facility] Last Admin: 04/24/21 07:50 Dose: 250 mg Documented by: ALISSON Cyanocobalamin (Cyanocobalamin (Vitamin B-12) 1,000 Mcg/Ml Vial) 1,000 mcg IM Q28D [facility] Dextrose (Dextrose 50 % 25 Gm/50 Ml Vial) 25 gm IVPUSH Q15M PRN; Protocol PRN Reason: per Hypoglycemia Standing Ord. Furosemide (Furosemide 40 Mg Tablet) 40 mg PO DAILY [facility]; Protocol Last Admin: 04/24/21 07:51 Dose: 40 mg Documented by: ALISSON Glucose (Glucose Gel 15 Gm Gel..Gram.) 15 gm PO Q15M PRN; Protocol PRN Reason: per Hypoglycemia Standing Ord. Ceftriaxone Sodium 1 gm/ (Sodium Chloride) 50 mls @ 100 mls/hr IV Q24H [facility] Last Infusion: 04/24/21 08:23 Dose: 0 mls/hr Documented by: SYBIL Insulin Glargine (Insulin Glargine,Hum.Rec.Anlog 100 Unit/Ml 10 Ml Vial) 8 unit SUBCUT BEDTIME [facility] Last Admin: 04/23/21 20:49 Dose: 8 unit Documented by: NASIM Insulin Human Lispro (Insulin Lispro 100 Unit/Ml 3 Ml Vial) 0 unit SUBCUT QIDACHS [facility]; Protocol Last Admin: 04/24/21 11:08 Dose: Not Given Documented by: ALISSON Non-Admin Reason: Off Unit: Surgery Levothyroxine Sodium (Levothyroxine Sodium 25 Mcg Tablet) 25 mcg PO DAILY@0630 [facility] Last Admin: 04/24/21 06:28 Dose: 25 mcg Documented by: NASIM Melatonin (Melatonin 3 Mg Tablet) 3 mg PO BEDTIME PRN PRN Reason: Insomnia Metoprolol Succinate (Metoprolol Succinate Er 25 Mg Tab.Er.24h) 25 mg PO BID [facility]; Protocol Last Admin: 04/24/21 07:50 Dose: 25 mg Documented by: ALISSON Montelukast Sodium (Montelukast Sodium 10 Mg Tablet) 10 mg PO BEDTIME [facility] Last Admin: 04/23/21 20:58 Dose: 10 mg Documented by: NASIM Nifedipine (Nifedipine Er 60 Mg Tab.Er.24) 60 mg PO DAILY [facility]; Protocol Last Admin: 04/24/21 07:51 Dose: 60 mg Documented by: ALISSON Ondansetron HCl (Ondansetron Hcl 4 Mg/2 Ml Vial) 4 mg IVPUSH Q8H PRN PRN Reason: Nausea and Vomiting Pharmacy Consult (Consult Rx Perform Med Rec) 1 each MISCELLANE ONCE PRN PRN Reason: Consult order Psyllium Hydrophilic Mucilloid (Psyllium Seed 3.4 Gm Powd.Pack) 3.4 gm PO DAILY [facility] Last Admin: 04/24/21 07:47 Dose: Not Given Documented by: ALISSON Non-Admin Reason: NPO Sodium Chloride (0.9 % Sodium Chloride Flush 3 Ml Syringe) 3 ml IVFLUSH QSHIFT [facility] Last Admin: 04/24/21 16:05 Dose: 3 ml Documented by: ALISSON Temazepam (Temazepam 15 Mg Capsule) 30 mg PO BEDTIME PRN PRN Reason: Insomnia Tramadol HCl (Tramadol Hcl 50 Mg Tablet) 50 mg PO BEDTIME [facility] Last Admin: 04/23/21 20:58 Dose: 50 mg Documented by: NASIM Vitamin D (Cholecalciferol (Vitamin D3) 25 Mcg Tablet) 25 mcg PO DAILY [facility] Last Admin: 04/24/21 07:51 Dose: 25 mcg Documented by: ALISSON Labs CBC & Chem 7: 04/24/21 05:25 04/24/21 05:25 Labs: Laboratory Results - last 24 hr 04/23/21 04/23/21 04/24/21 18:08 20:23 05:25 MCV 94.8 MCH 30.8 MCHC 32.5 RDW 13.5 Plt Count 274 MPV 9.8 Immature Gran % (Auto) 0.5 H Neut % (Auto) 75.7 H Lymph % (Auto) 9.7 L [place] % (Auto) 5.5 Eos % (Auto) 8.3 H Baso % (Auto) 0.3 Lymph # (Auto) 1.2 [place] # (Auto) 0.7 Eos # (Auto) 1.0 H Baso # (Auto) 0.0 Abs Immat Gran (auto) 0.06 H Absolute Neuts (auto) 9.13 H Absolute Nucleated RBC 0.000 Nucleated RBC % (auto) 0.0 Anion Gap Estim Creat Clear Calc Estimated GFR POC Glucose 188 H Fasting Glucose Calcium Total Bilirubin AST ALT Alkaline Phosphatase Total Protein Albumin Blood Type A Positive Antibody Screen NEGATIVE Crossmatch See Detail 04/24/21 04/24/21 04/24/21 05:25 07:39 10:06 MCV MCH MCHC RDW Plt Count MPV Immature Gran % (Auto) Neut % (Auto) Lymph % (Auto) [place] % (Auto) Eos % (Auto) Baso % (Auto) Lymph # (Auto) [place] # (Auto) Eos # (Auto) Baso # (Auto) Abs Immat Gran (auto) Absolute Neuts (auto) Absolute Nucleated RBC Nucleated RBC % (auto) Anion Gap 16 Estim Creat Clear Calc 11.4 Estimated GFR 10 POC Glucose 112 106 Fasting Glucose 110 H Calcium 6.8 L Total Bilirubin 2.3 H AST 19 ALT 13 Alkaline Phosphatase 111 Total Protein 5.4 L Albumin 2.9 L Blood Type Antibody Screen Crossmatch Assessment and Plan (1) New onset atrial fibrillation: Status: Acute (2) Chronic kidney disease, stage 4 (severe): Status: Acute Assessment and Plan: 75-year-old female with past medical history of chronic kidney disease stage 4, history of diabetes on insulin, hypertension recently discharged from [facility] on 04/17 presented to with symptoms of shortness of breath worse with activity, associated with cough no fevers no chills, denies chest pain.Workup in the emergency room revealed leukocytosis/ left base worsening effusion and air bronchograms , patient also noted to have elevated BNP and troponin. Successful CT-guided biopsy of right kidney this a.m. 1. Shortness of breath Improved. Will discuss with Renal likely DC in 2. Elevated BNP/new onset AFib Echo demonstrates EF 60 65% normal RV LA. Mild pulmonary hypertension Will continue beta-stas and increase as indicated 3. CKD Creatinine stable at this time. Await biopsy results 0 4. Hypertension Improved with nifedipine; will discuss with Renal in a.m. Fulll code/heparin on hold Quality Stroke Does the patient have a stroke diagnosis?: No VTE Prior VTE?: No VTE Risk Level:: Medical - moderate - high VTE Device Contraindication: Treatment Not Indicated VTE Drug Contraindication: N/A - Med Ordered
[2021-04-24 17:03] LABS: Glucose, Whole Blood 134 mg/dL (60-115)
[2021-04-24 21:06] LABS: Glucose, Whole Blood 114 mg/dL (60-115)
[2021-04-24] MEDS: traMADoL HCL 50 MG TABLET PO (21:20)
[2021-04-24] MEDS: Montelukast Sodium 10 MG TABLET PO (21:20)
[2021-04-24] MEDS: Atorvastatin Calcium 40 MG TABLET PO (21:20)
[2021-04-24] MEDS: Insulin Glargine,Hum.rec.anlog 100 UNIT/ML 10 ML VIAL 8 UNIT SUBCUT (21:21)
[2021-04-25] VITALS: BP 155/65; PULSE 74; RESP 18; TEMP 36.7; O2SAT 95
[2021-04-25 03:22] VITALS: BP 163/70; PULSE 71; RESP 18; TEMP 36.2; O2SAT 96
[2021-04-25] MEDS: Levothyroxine Sodium 25 MCG TABLET PO (06:07)
[2021-04-25 06:19] LABS: MANUAL DIFF FLAG NO
[2021-04-25 06:26] LABS: Basophils Absolute Auto 0.1 X10*3/uL (0.0-0.2); Basophils Percent Auto 0.4 % (0-2); Eosinophils Absolute Auto 0.7 X10*3/uL (0.0-0.4); Eosinophils Percent Auto 5.9 % (0-4); Hematocrit 33.3 % (37.0-47.0); Hemoglobin 10.8 g/dl (12.0-16.0); Imm Gran Abs Auto 0.05 X10*3/uL (0.00-0.03); Imm Gran Pct Auto 0.4 % (0.0-0.4); Lymphocytes Absolute Auto 1.6 X10*3/uL (1.2-4.9); Lymphocytes Percent Auto 13.9 % (20-40); Mean Corpuscular HGB Conc 32.4 g/dl (31.0-35.0); Mean Corpuscular Hemoglobin 30.3 pg (27.0-33.0); Mean Corpuscular Volume 93.5 fL (80.0-98.0); Mean Platelet Volume 9.3 fL (9.4-12.3); Monocytes Absolute Auto 0.6 X10*3/uL (0.1-1.2); Monocytes Percent Auto 5.2 % (2-11); Neutrophils Absolute Auto 8.61 x10*3/uL (2.0-8.3); Neutrophils Percent Auto 74.2 % (45-73); Platelet Count 273 X10*3/uL (160-400); Red Blood Count 3.56 X10*6/uL (4.20-5.50); Red Cell Distribution Width 13.4 % (11.0-16.0); White Blood Count 11.6 X10*3/uL (4.8-10.8)
[2021-04-25 07:09] VITALS: BP 174/74; PULSE 76; RESP 16; TEMP 36.2; O2SAT 98
[2021-04-25 07:24] LABS: Glucose, Whole Blood 84 mg/dL (60-115)
[2021-04-25] MEDS: Metoprolol Succinate ER 25 MG TAB.ER.24H PO (08:09)
[2021-04-25] MEDS: Azithromycin 250 MG TABLET PO (08:09)
[2021-04-25] MEDS: cefTRIAXone sodium 1 GM in 0.9 % Sodium Chloride 50 ML IV (08:09)
[2021-04-25] MEDS: Furosemide 40 MG TABLET PO (08:09)
[2021-04-25] MEDS: NIFEdipine ER 60 MG TAB.ER.24 PO (08:09)
[2021-04-25] MEDS: Cholecalciferol (Vitamin D3) 25 MCG TABLET PO (08:09)
[2021-04-25] MEDS: Amitriptyline HCl 10 MG TABLET PO (08:09)
[2021-04-25] MEDS: 0.9 % Sodium Chloride Flush 3 ML SYRINGE IVFLUSH (08:10)
[2021-04-25 08:26] LABS: Alanine Aminotransferase 12 U/L (0-31); Albumin Level 2.9 g/dL (3.5-5.0); Alkaline Phosphatase 117 U/L (39-117); Anion Gap 15 (12-20); Aspartate Amino Transferase 19 U/L (5-31); Bilirubin Total 0.6 mg/dL (0.0-1.0); Blood Urea Nitrogen 44 mg/dL (9-16); Calcium 6.8 mg/dL (8.4-10.2); Carbon Dioxide 24 mmol/L (22-29); Chloride 103 mmol/L (96-108); Creatinine Clr Calc Pharmacy 10.1; Estimated Glomerular Filt Rate 9; Glucose Fasting 93 mg/dL (60-99); Potassium 3.2 mmol/L (3.3-5.1); Sodium 139 mmol/L (135-145); Total Protein 5.5 g/dL (6.5-8.0)
--- NOTE | 2021-04-25 10:14 | P.PNNP_ITS ---
Subjective Subjective Date of Service: 04/25/21 Principal diagnosis: PNA, new afib, CKD Interval history: Successful CT-guided biopsy of right kidney yesterday. All r ecent data reviewed Physical Exam Vital Signs: Vital Signs: Last Vital Signs Temp 97.1 F 04/25/21 07:09 Pulse 76 04/25/21 07:09 Resp 16 04/25/21 07:09 BP 174/74 H 04/25/21 07:09 Pulse Ox 98 04/25/21 07:09 Body Mass Index 39.4 Const: General: no acute distress Eyes: EOM: EOMs intact bilaterally Neck: Neck: Yes supple Resp: Auscultation: diminished lung sounds Cardio: Jugular venous distension: no JVD GI: Palpation (GI): Soft to palpation Neuro: General: moves all extremities Objective Data Labs CBC & Chem 7: 04/25/21 06:14 04/25/21 06:14 Labs: Laboratory Results - last 24 hr 04/24/21 04/24/21 04/25/21 16:25 19:26 06:14 WBC 11.6 H RBC 3.56 L Hgb 10.8 L Hct 33.3 L MCV 93.5 MCH 30.3 MCHC 32.4 RDW 13.4 Plt Count 273 MPV 9.3 L Immature Gran % (Auto) 0.4 Neut % (Auto) 74.2 H Lymph % (Auto) 13.9 L [place] % (Auto) 5.2 Eos % (Auto) 5.9 H Baso % (Auto) 0.4 Lymph # (Auto) 1.6 [place] # (Auto) 0.6 Eos # (Auto) 0.7 H Baso # (Auto) 0.1 Abs Immat Gran (auto) 0.05 H Absolute Neuts (auto) 8.61 H Absolute Nucleated RBC 0.000 Nucleated RBC % (auto) 0.0 Sodium Potassium Chloride Carbon Dioxide Anion Gap BUN Creatinine Estim Creat Clear Calc Estimated GFR POC Glucose 134 H 114 Fasting Glucose Calcium Total Bilirubin AST ALT Alkaline Phosphatase Total Protein Albumin 04/25/21 04/25/21 06:14 07:10 WBC RBC Hgb Hct MCV MCH MCHC RDW Plt Count MPV Immature Gran % (Auto) Neut % (Auto) Lymph % (Auto) [place] % (Auto) Eos % (Auto) Baso % (Auto) Lymph # (Auto) [place] # (Auto) Eos # (Auto) Baso # (Auto) Abs Immat Gran (auto) Absolute Neuts (auto) Absolute Nucleated RBC Nucleated RBC % (auto) Sodium 139 Potassium 3.2 L Chloride 103 Carbon Dioxide 24 Anion Gap 15 BUN 44 H Creatinine 4.98 H* Estim Creat Clear Calc 10.1 Estimated GFR 9 POC Glucose 84 Fasting Glucose 93 Calcium 6.8 L Total Bilirubin 0.6 AST 19 ALT 12 Alkaline Phosphatase 117 Total Protein 5.5 L Albumin 2.9 L Microbiology Microbiology Results: Microbiology 04/20/21 18:02 Blood - Venous Blood Culture - Preliminary No growth after 48 hours. 04/20/21 18:02 Blood - Venous Blood Culture - Preliminary No growth after 48 hours. Procedures Date of Service Date of Service: 04/25/21 Assessment & Plan Assessment and plan (1) KYLER (acute kidney injury): Status: Acute Assessment and Plan: KYLER due to compromised kidney perfusion versus progression of underlying kidney disease( likely latter) Has nephrotic range proteinuria which signals risk of abrupt kidney function deterioration known severe CKD due to DM/HTN; normal complement level positive GOMEZ & Hep C antibody; serum immunofixation normal S/P kidney biopsy yesterday . Could restart ASA . Needs better BP control ; Could increase Nifedipine? to 120 mg Could have lasix 20 mg daily at home after D/C Shall arrange office follow up in one week Time Spent With Patient Time: Total time spent is greater than 50% in coordination of care (as documented) at patient's floor/unit and/or counseling patient: Progress Note: Quality Stroke Does the patient have a stroke diagnosis?: No
[2021-04-25 11:20] VITALS: BP 164/70; PULSE 73; RESP 16; TEMP 36.2; O2SAT 98
[2021-04-25 11:43] LABS: Glucose, Whole Blood 146 mg/dL (60-115)
--- NOTE | 2021-04-25 12:15 | MHC.CM.PN ---
IMM 04/25/21 Female 75 S/P renal biopsy. She is discharged to home. No services ordered. Patient and family are in agreement to go home today.Her son is providing transportation to home.
--- NOTE | 2021-04-25 14:00 | P.DS_ITS ---
DS: Providers Provider Date of Service: 04/25/21 Date of admission: 04/20/21 13:41 Primary care physician: Lonnie Khan MD Consults: 04/20/21 13:37 Consult to Nephrology Routine Consulting Provider: Tigre Henry Reason for consultation: kyler on ckd Has provider been notified: No 04/20/21 13:46 Consult to Cardiology Routine Consulting Provider: Semaj Hayes Reason for consultation: sob/elevated trop and BNP with ckd Has provider been notified: No DS: Diagnosis Discharge Diagnosis (1) KYLER (acute kidney injury): Status: Acute DS: Summary Hospital Course Hospital Course: 75-year-old female patient with past medical history significant for chronic kidney disease stage 4/5, history of diabetes on insulin, hypertension, was recently discharged from [facility] on April 17/2021 after being evaluated for worsening creatinine from baseline 3.1-4.6 on admission, patient was treated with IV fluids, renal ultrasound showed no obstruction her creatinine remained elevated around 4.4 patient was evaluated closely by Nephrology Dr. Henry and it was felt that patient has underlying chronic kidney disease due to diabetic nephropathy and hypertension serological workup was don e, patient was discharged home with recommendation to have outpatient follow-up with Nephrology for renal biopsy, patient returned today due to symptoms of shortness of breath worse with activity associated with cough productive of clear phlegm and nausea patient complaining of constipation with no bowel movement in last several days, patient does have history of chronic constipation, she denies chest pain, no fever, no chills , no sick contacts, she denies any abdominal pain. In the emergency room workup revealed an elevated troponin and BNP kidney function remains stable around 4.6, chest x-ray showed left pleural effusion slightly worse from before with air bronchograms, WBC count is mildly elevated around 13,000, oxygenation is stable, patient noted to have elevated blood pressure as per granddaughter patient took her blood pressure medications this a.m. and she is compliant with all her medications. Patient treated with IV antibiotics in the emergency room and now being admitted to [facility] with concern for pneumonia, worsening left pleural effusion and shortness of breath for further workup and treatment. Hospital course Admitted to the hospital; treated with IV ceftriaxone/azithromycin for pneumonia with improvement. Seen by Renal for worsening renal function. Labs ultrasound reviewed by Renal; ultimately underwent CT-guided renal biopsy 04/24/2021. At the time discharge results are pending. Patient also developed new onset AFib on presentation; spontaneously converted to normal sinus rhythm. Patient had been on aspirin however this was held pending the biopsy. At this point in time, following biopsy patient remains in normal sinus rhythm. Patient has follow-up with new PCP in 1 week at that time an EKG should be done to assess presence or absence of AFib. Based on that EKG a decision can be made whether to continue aspirin only or to anticoagulate with Eliquis. Dr. Hayes has arranged follow-up with Renal as an outpatient. Time Spent with Patient Time attestation: Total time spent providing and/or coordinating discharge services: Discharge coordination time: Greater than 30 minutes Quality: Stroke Does the patient have a stroke diagnosis?: No Physical Exam Vital Signs: Vital Signs: Last Vital Signs Temp 97.2 F 04/25/21 11:20 Pulse 73 04/25/21 11:20 Resp 16 04/25/21 11:20 BP 164/70 H 04/25/21 11:20 Pulse Ox 98 04/25/21 11:20 Body Mass Index 39.4 Const: Other: No acute distress Resp: Other: Clear to auscultation bilateral; no rales rhonchi or wheezes Cardio: Other: No S4; positive S1-S2; no S3 murmurs of recount GI: Other: Soft nontender nondistended with normoactive bowel sounds no peritoneal signs Extrem: Other: No edema bilaterally DS: Data Data Completed and Pending Completed studies during hospitalization [Text1]: Pending at discharge 04/24/21 12:02 Surgical [PTH] Routine Labs on day of discharge: Laboratory Results - last 24 hr 04/24/21 04/24/21 04/25/21 16:25 19:26 06:14 WBC 11.6 H RBC 3.56 L Hgb 10.8 L Hct 33.3 L MCV 93.5 MCH 30.3 MCHC 32.4 RDW 13.4 Plt Count 273 MPV 9.3 L Immature Gran % (Auto) 0.4 Neut % (Auto) 74.2 H Lymph % (Auto) 13.9 L [place] % (Auto) 5.2 Eos % (Auto) 5.9 H Baso % (Auto) 0.4 Lymph # (Auto) 1.6 [place] # (Auto) 0.6 Eos # (Auto) 0.7 H Baso # (Auto) 0.1 Abs Immat Gran (auto) 0.05 H Absolute Neuts (auto) 8.61 H Absolute Nucleated RBC 0.000 Nucleated RBC % (auto) 0.0 Sodium Potassium Chloride Carbon Dioxide Anion Gap BUN Creatinine Estim Creat Clear Calc Estimated GFR POC Glucose 134 H 114 Fasting Glucose Calcium Total Bilirubin AST ALT Alkaline Phosphatase Total Protein Albumin 04/25/21 04/25/21 04/25/21 06:14 07:10 11:17 WBC RBC Hgb Hct MCV MCH MCHC RDW Plt Count MPV Immature Gran % (Auto) Neut % (Auto) Lymph % (Auto) [place] % (Auto) Eos % (Auto) Baso % (Auto) Lymph # (Auto) [place] # (Auto) Eos # (Auto) Baso # (Auto) Abs Immat Gran (auto) Absolute Neuts (auto) Absolute Nucleated RBC Nucleated RBC % (auto) Sodium 139 Potassium 3.2 L Chloride 103 Carbon Dioxide 24 Anion Gap 15 BUN 44 H Creatinine 4.98 H* Estim Creat Clear Calc 10.1 Estimated GFR 9 POC Glucose 84 146 H Fasting Glucose 93 Calcium 6.8 L Total Bilirubin 0.6 AST 19 ALT 12 Alkaline Phosphatase 117 Total Protein 5.5 L Albumin 2.9 L Preliminary micro results at discharge 04/20/21 18:02 Blood Culture - Preliminary Blood - Venous No growth after 48 hours. 04/20/21 18:02 Blood Culture - Preliminary Blood - Venous No growth after 48 hours. Discharge Plan Discharge Patient Disposition: Home, Self-Care Discharge Diagnosis: Left lower lobe infiltrate; new onset AFib Referrals: Lonnie Khan MD [Primary Care Provider] - 04/26/21 10:00 am (You have an appointment to establish care with Dr. Khan tomorrow, April 26 at 10 am.) Discharge Medications: New cefuroxime axetil 250 mg tablet 250 mg PO BID 7 Days Qty: 14 RF: 0 nifedipine 60 mg Tablet Extended Release 24hr 120 mg PO DAILY 30 Days Qty: 60 RF: 0 metoprolol succinate 25 mg Tablet Extended Release 24 Hr 25 mg PO BID Qty: 30 RF: 0 Continued cyanocobalamin (vitamin B-12) 1,000 mcg/mL solution 1,000 mcg IM Q28D RF: 0 metoprolol succinate 25 mg Tablet Extended Release 24 Hr 25 mg PO DAILY Qty: 30 RF: 0 Novolin 70-30 FlexPen U-100 100 unit/mL (70-30) insulin pen 20 unit subcut BID 30 Days Qty: 15 RF: 0 Metamucil Fiber Singles 3.4 gram Powder In Packet 3.4 g PO DAILY Qty: 30 RF: 0 temazepam 30 mg capsule 30 mg PO BEDTIME PRN (Reason: Insomnia) RF: 0 amitriptyline 10 mg tablet 10 mg PO DAILY 30 Days Qty: 30 RF: 0 amlodipine 5 mg tablet 5 mg PO DAILY 30 Days Qty: 30 RF: 0 atorvastatin 40 mg tablet 40 mg PO BEDTIME Qty: 30 RF: 0 cholecalciferol (vitamin D3) 25 mcg (1,000 unit) capsule 25 mcg PO DAILY Qty: 30 RF: 0 ferrous sulfate 250 mg (50 mg iron) tablet extended release 250 mg PO DAILY 30 Days Qty: 30 RF: 0 furosemide 20 mg tablet 20 mg PO BID 30 Days Qty: 60 RF: 0 levothyroxine 25 mcg capsule 25 mcg PO DAILY Qty: 30 RF: 0 loratadine [Allergy Relief (loratadine)] 10 mg tablet 10 mg PO DAILY Qty: 30 RF: 0 pantoprazole 20 mg tablet,delayed release (DR/EC) 20 mg PO DAILY Qty: 30 RF: 0 montelukast 10 mg tablet 10 mg PO BEDTIME Qty: 30 RF: 0 (DME) pen needle, diabetic [BD Sandra 2nd Gen Pen Needle] 32 gauge x 5/32 needle See Rx Instructions .Route Qty: 50 RF: 0 tramadol 50 mg tablet 50 mg PO BEDTIME 14 Days Qty: 14 RF: 0 (DME) blood-glucose meter [FreeStyle Lite Meter] Kit See Rx Instructions .Route Qty: 1 RF: 0 (DME) FreeStyle Lite Strips Strip See Rx Instructions .ROUTE .MEDSUPPLY Qty: 100 RF: 0 (DME) lancets [FreeStyle Lancets] 28 gauge misc See Rx Instructions .ROUTE .MEDSUPPLY Qty: 100 RF: 0 Discharge Orders: Discharge Order (Routine); Ordered 04/25/21 Ordered By: Patric Allen Diet: advance to usual diet Activity on Discharge: As tolerated Stand Alone Forms: Patient Portal Discharge page Care Plan Goals: Continue current therapies. Follow-up with PCP as scheduled along with renal Health Concerns: Maintenance of sinus rhythm Plan of Treatment: Patient currently in NSR; no aspirin or anticoagulation at this time given renal biopsy. Appointment with PCP forthcoming; can reassess for restart aspirin versus Eliquis. If remains in sinus rhythm would probably benefit from aspirin alone. Assessment: Improved
[2021-04-25 15:19] VITALS: BP 117/59; PULSE 85; RESP 16; TEMP 36.3; O2SAT 95
[2021-04-25 16:35] LABS: Glucose, Whole Blood 137 mg/dL (60-115)
== END 2021-04-25 17:34 | disposition home or self-care (01) | DRG 682 ==
LOC: HO.ED 13:01 → HO.EDOVER 13:50 → HO.S3 04-21 00:16
PROVIDERS: Internal Medicine Nephrology; Radiology Diagnostic Radiology; Admitting Provider Hospitalist; Emergency Provider Emergency Medicine; PCP Internal Medicine; Visit Provider Hospitalist
PROC: 0TB03ZX Excision of Right Kidney, Percutaneous Approach, Diagnostic (ICD-10-PCS; principal; 2021-04-24 10:30)
DX: N17.9 Acute kidney failure, unspecified (principal); I50.31 Acute diastolic (congestive) heart failure; J18.9 Pneumonia, unspecified organism; I13.0 Hypertensive heart and chronic kidney disease with heart failure and stage 1 through stage 4 chronic kidney disease, or unspecified chronic kidney disease; I16.0 Hypertensive urgency; E03.9 Hypothyroidism, unspecified; E78.5 Hyperlipidemia, unspecified; K21.9 Gastro-esophageal reflux disease without esophagitis; D63.1 Anemia in chronic kidney disease; E11.22 Type 2 diabetes mellitus with diabetic chronic kidney disease; N18.4 Chronic kidney disease, stage 4 (severe); R76.0 Raised antibody titer; I48.91 Unspecified atrial fibrillation; I25.10 Atherosclerotic heart disease of native coronary artery without angina pectoris; E66.9 Obesity, unspecified; Z68.39 Body mass index [BMI] 39.0-39.9, adult; Z20.822 Contact with and (suspected) exposure to COVID-19; Z79.4 Long term (current) use of insulin; Z79.890 Hormone replacement therapy; Z79.899 Other long term (current) drug therapy
CPT/HCPCS: 0241U; 36415; 50200; 71045; 71046; 77012; 80048; 80053; 82947; 83010; 83605; 83615; 83880; 84484; 85025; 85027; 85045; 85610; 85730; 86021; 86704; 86706; 86803; 86850; 86900; 86901; 86923; 87040; 87340; 88300; 88305; 88313; 88346; 88348; 88350; 93005; 93306; 96365; 96367; 99152; 99285; 99291; J0456; J0696; J1940; P9016

== ENCOUNTER 2021-05-02 13:59 | Inpatient (IN) | payer MEDICARE, MEDICAID, SELFPAY ==
--- NOTE | ~2021-05-02 | US_ITS ---
EXAMINATION: US VENOUS WITH DOPPLER UPPER EXTREMITY, RIGHT CLINICAL INFORMATION: Right upper extremity swelling. COMPARISON: None TECHNIQUE: Ultrasound of the upper extremity is performed using compression sonography and color and pulse Doppler flow with assessment of augmentation of flow. There is also imaging and Doppler assessment of the jugular and subclavian veins. Spectral analysis with color-flow imaging is performed. FINDINGS: There is hypoechoic material, absent compression and absent flow in the basilic vein near the elbow compatible with acute DVT. No other thrombus is seen. The right internal jugular, subclavian, axillary, brachial and basilic veins are patent. The radial vein in the forearm is patent. The ulnar vein in the forearm is not identified. US/US venous duplex UE RT IMPRESSION: Small thrombus in the right basilic vein. Findings were communicated to Dr. Lopez by telephone on 05/05/2021 at [id number]
--- NOTE | ~2021-05-02 | CT_ITS ---
EXAMINATION: CT CHEST WITHOUT CONTRAST CLINICAL INFORMATION: Shortness of breath. COMPARISON: Chest x-ray 05/02/2021 TECHNIQUE: Multidetector volumetric CT imaging of the chest was done. Axial MIP volume rendering provided. Sagittal and coronal reformatted images were obtained. This CT examination was performed using dose optimization techniques as appropriate, variously including the following: *Automated exposure control *Adjustment of mA and/or kV according to patient size (this includes techniques or standardized protocols for targeted exams where dose is matched to indication/reason for exam; i.e. extremities or head) *Use of iterative reconstruction technique DLP: 417 mGy-cm FINDINGS: LUNGS: Moderate volume of consolidation/atelectasis at both dependent lung bases with air bronchograms. MEDIASTINUM: Heart size is prominent. There is a small volume pericardial effusion. This measures 5 mm in thickness at the base of the heart. Coronal image 36/80. There are vascular calcifications of aorta. No aneurysm of aorta. Central port catheter tip in superior vena cava. No mediastinal mass or significant lymphadenopathy. PLEURA: There are small to moderate volume dependent bilateral pleural effusions. AXILLA: No lymphadenopathy. UPPER ABDOMEN: Unremarkable. OSSEOUS STRUCTURES: Degenerative spondylosis of the spine. CT/CT chest wo con IMPRESSION: 1. Bibasilar consolidation/atelectasis with bilateral pleural effusions. 2. Small volume pericardial effusion.
--- NOTE | ~2021-05-02 | IR_ITS ---
PROCEDURE: IR INSERTION OF TUNNEL CATHETER CLINICAL INFORMATION: Patient with temporary dialysis catheter in place needing PermCath for dialysis. COMPARISON: 05/03/2021 TECHNIQUE: Conversion of temporary right internal jugular dialysis catheter to right internal jugular tunneled dialysis catheter. 2 g of cephazolin were given intravenously prior to procedure. All elements of maximal sterile barrier technique followed including use of cap, mask, sterile gown, sterile gloves, a sterile full body drape and hand hygiene. Also followed skin preparation with 2% chlorhexidine for cutaneous antisepsis, and sterile ultrasound preparation with sterile gel and probe cover when applicable. FINDINGS: Informed consent was obtained from the patient prior to the procedure. During this process, the procedure and potential alternatives were explained, along with the intended outcome and benefits. The risks of the procedure, as well as the risk of not doing the procedure, were discussed. The patient was given the opportunity to ask questions regarding the procedure and appeared competent to make medical decisions. A signed consent form which documents this discussion was placed in the medical record. Using sterile technique and fluoroscopic guidance a tunnel was made about the anterior right chest wall for tunneling of dialysis catheter. A 23 cm tip to cuff dialysis catheter was then tunneled to the right internal jugular puncture site of the previously placed temporary dialysis catheter. The insertion site was then re-cleansed with ChloraPrep. A guidewire was then placed through the temporary dialysis catheter with its tip placed in the inferior vena cava. Following this the temporary dialysis catheter was removed and over the guidewire a peel-away sheath was placed. Through the peel-away sheath the tunneled dialysis catheter was placed with its tip lying within the mid right atrium. Both ports aspirate and flushed freely and were heparinized. The neck insertion site was closed with tissue adhesive. The catheter was sutured in place with 3-0 monofilament suture. IR/IR cvc insert central tunnel IMPRESSION: Conversion of right internal jugular temporary dialysis catheter to tunneled dialysis catheter. Fluoroscopy time: 1.2 minutes. DAP: 176 cGycm2
--- NOTE | ~2021-05-02 | XR_ITS ---
EXAMINATION: XR CHEST CLINICAL INFORMATION: Dyspnea. COMPARISON: Chest x-ray April 20, 2021 TECHNIQUE: Frontal portable view of the chest was obtained. 4:21 PM FINDINGS: Dense left lung base with silhouetting of the diaphragm. Basilar consolidation or atelectasis and/or pleural effusion. No pulmonary vascular congestion. Right lung is normally aerated. No right-sided pleural effusion. Cardiac and mediastinal contours unchanged. There are calcifications of aorta. Orthopedic plate and screw in the right proximal humerus partially imaged. XR/XR chest 1V IMPRESSION: Dense left lung base due to basilar consolidation or atelectasis and/or left pleural effusion.
--- NOTE | ~2021-05-02 | CT_ITS ---
EXAMINATION: CT ABDOMEN AND PELVIS WITHOUT CONTRAST CLINICAL INFORMATION: Suspected colitis. History of nephrotic range proteinuria. Acute on chronic renal failure. COMPARISON: CT-guided right renal biopsy done on 04/24/2021. TECHNIQUE: Multidetector volumetric imaging was performed from the superior aspect of the liver through the pubic symphysis. Sagittal and coronal reformatted images were obtained on the technologist's workstation. This CT examination was performed using dose optimization techniques as appropriate, variously including the following: *Automated exposure control *Adjustment of mA and/or kV according to patient size (this includes techniques or standardized protocols for targeted exams where dose is matched to indication/reason for exam; i.e. extremities or head) *Use of iterative reconstruction technique DLP: 1068 mGy-cm FINDINGS: LUNG BASES: Abnormal. No evidence of simple appearing bilateral small pleural effusions are noted, slightly increased since 04/24/2021. Atherosclerotic coronary arterial disease is present. There is mild cardiomegaly present. No evidence of any pericardial effusion. Compressive atelectatic changes are noted at both lung bases (left greater than right). LIVER, GALLBLADDER, AND BILIARY TREE: The liver is normal in size, shape, and attenuation. No focal hepatic lesion or biliary ductal dilatation is present. Subtle intraluminal hyperdensities noted likely represent gallbladder calculus versus sludge, similar to prior study. PANCREAS: Grossly unremarkable. SPLEEN: Unremarkable. ADRENAL GLANDS: Unremarkable. KIDNEYS AND URETERS: The right kidney is normal in size, shape, and attenuation. No hydronephrosis, hydroureter, or calculi seen. No perinephric stranding. There is an exophytic approximately 2.3 cm hypodensity identified at the superior pole of the left kidney with Hounsfield value of 19, similar to prior study, likely represent an incidental cyst however, not optimally evaluated on this nonenhanced study. BLADDER: Unremarkable. GASTROINTESTINAL TRACT: Small sliding hiatal hernia is noted. The stomach is decompressed. The small bowel loops are decompressed. The large bowel loops are decompressed as well. No evidence of any inflammatory changes present. Calcifications are noted within the cecum likely represent fecalith. Nonvisualized appendix. There are no mesenteric lymphadenopathy. ABDOMINAL WALL: No significant hernia is appreciated. LYMPH NODES: Normal. VASCULAR: Extensive vasculopathy is noted in the form of significant atherosclerotic calcifications of the aorta and its branches without evidence of any aneurysm formation. PELVIC VISCERA: There is no pelvic mass present. No evidence of any free fluid and/or free air. OSSEOUS STRUCTURES: Multilevel moderate degenerative spondylosis. No suspicious focal lesion. CT/CT abdomen pelvis wo con IMPRESSION: 1. Simple appearing bilateral small pleural effusions are noted, slightly increased since most recent prior limited CT scan of the abdomen performed at the time of the CT guided renal biopsy done on 04/24/2021. 2. Intraluminal gallbladder hyperdensities are noted likely represent gallbladder sludge, unchanged. 3. 2.3 cm exophytic hypodensity at the superior pole of the left kidney with Hounsfield value of 19, similar to prior study, likely represent an incidental cyst however, not optimally characterized. 4. No CT evidence of any bowel obstruction or bowel wall thickening or inflammatory changes. 5. Extensive vasculopathy in the form of diffuse calcifications of the aorta and is branches without aneurysm formation. 6. Multilevel moderate degenerative spondylosis of the visualized thoracolumbar spine.
--- NOTE | ~2021-05-02 | IR_ITS ---
PROCEDURE: IR INSERTION OF TUNNEL CATHETER CLINICAL INFORMATION: Catheter needed for temporary dialysis. COMPARISON: None. TECHNIQUE: Ultrasound-guided right internal jugular dialysis catheter placement. FINDINGS: Ultrasound examination of the neck was performed prior to temporary dialysis catheter placement. The right internal jugular vein is seen to be widely patent. An image was sent to PACS. Using sterile technique and ultrasound guidance, all elements of maximal sterile barrier technique followed including use of cap, mask, sterile gown, sterile gloves, a sterile full body drape and hand hygiene. Also followed skin preparation with 2% chlorhexidine for cutaneous antisepsis, and sterile ultrasound preparation with sterile gel and probe cover when applicable. The right internal jugular vein was punctured and guidewire placed down into the right atrium. Following fascial dilatation, a 12-[place] dual-lumen dialysis catheter was placed with its tip lying within the distal superior vena cava/cavoatrial junction. Patient tolerated the procedure without difficulty. Catheter was sutured to the neck with 3-0 monofilament suture. Both ports were flushed and heparinized with 1000 units per mL. IR/IR cvc insert central tunnel IMPRESSION: Placement of 12-[place] right temporary dialysis catheter. 0.7 minutes fluoroscopy. DAP: 293 cGy-cm2
[2021-05-02 14:12] VITALS: BP 134/61; PULSE 80; RESP 16; O2SAT 96; BMI 39.4
--- NOTE | 2021-05-02 16:04 | ECG_ITS ---
Test Reason : sob Blood Pressure : / mmHG Vent. Rate : 081 BPM Atrial Rate : 081 BPM P-R Int : 168 ms QRS Dur : 084 ms QT Int : 414 ms P-R-T Axes : 059 049 044 degrees QTc Int : 480 ms Sinus rhythm with sinus arrhythmia with occasional Premature ventricular complexes Nonspecific T wave abnormality Abnormal ECG When compared with ECG of 23-APR-2021 13:13, Premature ventricular complexes are now Present T wave amplitude has decreased in Inferior leads Lateral leads Referred By: Da Collins Electronically Signed By:JANIE ISAACS MD
--- NOTE | 2021-05-02 16:08 | ED.NAVMDI ---
HPI - Nausea/Vomiting/Diarrhea General Chief complaint: Nausea/Vomiting/Diarrhea Stated complaint: vomiting, diarrhea, body pain Time Seen by Provider: 05/02/21 15:55 Source: patient Mode of arrival: ambulatory Limitations: no limitations History of Present Illness HPI Narrative: 75-year-old female with history of chronic renal insufficiency baseline creatinine 4 presented with a chief complaint of nausea vomiting diarrhea and shortness of breath on exertion. Denies any fever chills, she is complaining of abdominal cramps as well MD elicited complaint: nausea, vomiting, diarrhea and abdominal pain Onset (ago): week(s) (1) Description of vomiting: watery Description of diarrhea: watery Associated nausea: Yes Associated abdominal pain: Yes Severity: moderate Quality: cramping Exacerbating factors: eating Relieving factors: none Related Data Home Medications Medication Instructions Recorded Confirmed temazepam 30 mg capsule 30 mg PO BEDTIME PRN 04/12/21 04/26/21 cyanocobalamin (vitamin B-12) 1,000 mcg IM Q28D 04/14/21 04/26/21 1,000 mcg/mL injection solution cefuroxime axetil 250 mg tablet 250 mg PO BID tab 04/26/21 Previous Rx's Medication Instructions Recorded amitriptyline 10 mg tablet 10 mg PO DAILY 30 Days #30 tab 04/12/21 amlodipine 5 mg tablet 5 mg PO DAILY 30 Days #30 tab 04/12/21 atorvastatin 40 mg tablet 40 mg PO BEDTIME #30 tab 04/12/21 cholecalciferol (vitamin D3) 25 25 mcg PO DAILY #30 cap 04/12/21 mcg (1,000 unit) capsule ferrous sulfate 250 mg (50 mg 250 mg PO DAILY 30 Days #30 tab 04/12/21 iron) tablet,extended release furosemide 20 mg tablet 20 mg PO BID 30 Days #60 tab 04/12/21 levothyroxine 25 mcg capsule 25 mcg PO DAILY #30 cap 04/12/21 loratadine 10 mg tablet (Allergy 10 mg PO DAILY #30 tab 04/12/21 Relief (loratadine)) montelukast 10 mg tablet 10 mg PO BEDTIME #30 tab 04/12/21 pantoprazole 20 mg tablet,delayed 20 mg PO DAILY #30 tab 04/12/21 release pen needle, diabetic 32 gauge x #50 ea 04/12/21 (BD Sandra 2nd Gen Pen Needle) tramadol 50 mg tablet 50 mg PO BEDTIME 14 Days #14 tab 04/12/21 blood sugar diagnostic (FreeStyle #100 ea 04/13/21 Lite Strips) blood-glucose meter (FreeStyle #1 ea 04/13/21 Lite Meter) lancets 28 gauge (FreeStyle #100 ea 04/13/21 Lancets) insulin NPH-regular 70-30 U-100 20 unit (0.2 mL) SUBCUT BID 30 04/17/21 insulin 100 unit/mL subcutaneous Days #15 ml pen (Novolin 70-30 FlexPen U-100 Insulin) metoprolol succinate 25 mg 25 mg PO DAILY #30 tab 04/17/21 tablet,extended release 24 hr psyllium husk (aspartame) 3.4 gram 3.4 g PO DAILY #30 ea 04/17/21 oral powder packet (Metamucil Fiber Singles) metoprolol succinate 25 mg 25 mg PO BID #30 tab 04/25/21 tablet,extended release 24 hr nifedipine 60 mg tablet,extended 120 mg PO DAILY 30 Days #60 tab 04/25/21 release 24 hr blood sugar diagnostic (FreeStyle #100 ea 04/26/21 Lite Strips) blood-glucose meter (FreeStyle #1 ea 04/26/21 Lite Meter) Allergies Allergy/AdvReac Type Severity Reaction Status Date / Time No Known Allergies Allergy Verified 04/26/21 10:46 Review of Systems Review of Systems: Yes all other systems are reviewed and are negative Constitutional: Constitutional: Denies fever(s) Cardiovascular: Cardiovascular: Reports no additional cardiovascular complaints, Denies chest pain and Denies chest pain at rest Respiratory: Respiratory: Reports no additional respiratory complaints Gastrointestinal: Gastrointestinal: Reports bloating, Reports diarrhea and Reports nausea Musculoskeletal: Musculoskeletal: Reports no additional musculoskeletal complaints PMFSH Past Medical History Medical History Arthritis Benign essential hypertension Chronic kidney disease, stage V GERD (gastroesophageal reflux disease) Hypothyroidism Paroxysmal atrial fibrillation Pure hypercholesterolemia Toe amputee Type 2 diabetes mellitus Surgical History Hx of appendectomy Social History Social History Household Members: None Household Members Other:: self, son lives close by Housing: House Do you presently have visiting nurse or other home services: No Alcohol intake: never Patient Tobacco Use Status: Never used Tobacco Tobacco use type: Cigarette e-Cigarette/Vaping Use: Never Used Second Hand Smoke Exposure: No Advance Directives: No Advance Directives Information Provided: Yes service: No Current occupational status: retired Physical Exam Vital Signs: Vital Signs: Last Vital Signs Temp 97.8 F 05/02/21 16:11 Pulse 80 05/02/21 18:24 Resp 16 05/02/21 18:24 BP 153/43 H 05/02/21 18:24 Pulse Ox 97 05/02/21 18:24 Body Mass Index 39.4 Const: General: cooperative Nutritional Appearance: average body habitus Orientation/consciousness: patient oriented x3 HENMT: Head: Yes normal to inspection Face and sinus: Yes normal facial exam Mouth: Normal oral and palatal mucosa present Neck: Neck: Yes normal visual inspection, Yes full ROM and Yes trachea midline Chest: Chest palpation & inspection: normal inspection of the chest Resp: Effort & Inspection: normal respiratory effort Auscultation: clear to auscultation bilaterally Cardio: Jugular venous distension: no JVD Rate: regular rate Rhythm: regular rhythm GI: Inspection: Yes normal to inspection Palpation (GI): Soft to palpation, not firm, nontender and no guarding Skin: General skin exam: no rashes or lesions noted Neuro: General: patient oriented x3 Course Reevaluation(s) Reevaluation #1: case d/w renal Dr Keller will admit IV hydration Procedures EJ/Peripheral Line Arm R: Time Out Performed: Yes Skin Cleansed in Sterile Fashion: Yes Size (gauge): 20 Patient Tolerated Procedure: well Additional Comments: under US guided cannulated rt brachial vein MDM - Nausea/Vomiting/Diarrhea Lab Data Result diagrams: 05/02/21 16:17 05/02/21 16:17 Labs: Lab Results 05/02/21 05/02/21 Range/Units 16:17 16:17 WBC 14.8 H (4.8-10.8) X10*3/uL RBC 3.22 L (4.20-5.50) X10*6/uL Hgb 9.9 L (12.0-16.0) g/dl Hct 29.4 L (37.0-47.0) % MCV 91.3 (80.0-98.0) fL MCH 30.7 (27.0-33.0) pg MCHC 33.7 (31.0-35.0) g/dl RDW 13.4 (11.0-16.0) % Plt Count 298 (160-400) X10*3/uL MPV 10.0 (9.4-12.3) fL Immature Gran % (Auto) 0.5 H (0.0-0.4) % Neut % (Auto) 78.4 H (45-73) % Lymph % (Auto) 10.0 L (20-40) % [place] % (Auto) 5.9 (2-11) % Eos % (Auto) 4.9 H (0-4) % Baso % (Auto) 0.3 (0-2) % Lymph # (Auto) 1.5 (1.2-4.9) X10*3/uL [place] # (Auto) 0.9 (0.1-1.2) X10*3/uL Eos # (Auto) 0.7 H (0.0-0.4) X10*3/uL Baso # (Auto) 0.1 (0.0-0.2) X10*3/uL Abs Immat Gran (auto) 0.08 H (0.00-0.03) X10*3/uL Absolute Neuts (auto) 11.6 H (2.0-8.3) x10*3/uL Absolute Nucleated RBC 0.000 (0.0-0.012) X10*3/uL Nucleated RBC % (auto) 0.0 (0.0-0.2) /100WBC Sodium 132 L (135-145) mmol/L Potassium 4.2 D (3.3-5.1) mmol/L Chloride 99 (96-108) mmol/L Carbon Dioxide 18 L (22-29) mmol/L Anion Gap 19 (12-20) BUN 67 H D (9-16) mg/dL Creatinine 6.70 H* (0.5-1.4) mg/dL Estim Creat Clear Calc 7.5 Estimated GFR 6 Random Glucose 187 H (60-115) mg/dL Calcium 6.6 L (8.4-10.2) mg/dL Total Bilirubin 0.5 (0.0-1.0) mg/dL AST 24 (5-31) U/L ALT 15 (0-31) U/L Alkaline Phosphatase 117 (39-117) U/L Total Protein 6.1 L (6.5-8.0) g/dL Albumin 3.0 L (3.5-5.0) g/dL Imaging Data Chest x-ray: Radiologist's impression: TECHNIQUE: Frontal portable view of the chest was obtained. 4:21 PM FINDINGS: Dense left lung base with silhouetting of the diaphragm. Basilar consolidation or atelectasis and/or pleural effusion. No pulmonary vascular congestion. Right lung is normally aerated. No right-sided pleural effusion. Cardiac and mediastinal contours unchanged. There are calcifications of aorta. Orthopedic plate and screw in the right proximal humerus partially imaged. XR/XR chest 1V IMPRESSION: Dense left lung base due to basilar consolidation or atelectasis and/or left pleural effusion. ? Dictated By: JOHANN ESTEVEZ MD Signed By: <Electronically signed by JOHANN ESTEVEZ MD in OV> 05/02/[address] scan - abdomen: Radiologist's impression: PELVIC VISCERA: There is no pelvic mass present. No evidence of any free fluid and/or free air.? OSSEOUS STRUCTURES: Multilevel moderate degenerative spondylosis. No suspicious focal lesion.? CT/CT abdomen pelvis wo con IMPRESSION: ? 1. Simple appearing bilateral small pleural effusions are noted, slightly increased since most recent prior limited CT scan of the abdomen performed at the time of the CT guided renal biopsy done on 04/24/2021. 2. Intraluminal gallbladder hyperdensities are noted likely represent gallbladder sludge, unchanged. 3. 2.3 cm exophytic hypodensity at the superior pole of the left kidney with Hounsfield value of 19, similar to prior study, likely represent an incidental cyst however, not optimally characterized. 4. No CT evidence of any bowel obstruction or bowel wall thickening or inflammatory changes. 5. Extensive vasculopathy in the form of diffuse calcifications of the aorta and is branches without aneurysm formation. 6. Multilevel moderate degenerative spondylosis of the visualized thoracolumbar spine. Dictated By: MAURO KELSEY MD Signed By: <Electronically signed by MAURO KELSEY MD in OV> 05/02/21 1719 DD/ 1629 ECG Data ECG interpretation date: 05/02/21 ECG interpretation time: 16:15 Pacemaker model: NSR 81 no ischemic changes artifacts Discharge Plan Discharge Clinical Impression: Diarrhea, Acute on chronic kidney failure Prescriptions: No Action cyanocobalamin (vitamin B-12) 1,000 mcg/mL solution 1,000 mcg IM Q28D RF: 0 metoprolol succinate 25 mg Tablet Extended Release 24 Hr 25 mg PO DAILY Qty: 30 RF: 0 Novolin 70-30 FlexPen U-100 100 unit/mL (70-30) insulin pen 20 unit subcut BID 30 Days Qty: 15 RF: 0 Metamucil Fiber Singles 3.4 gram Powder In Packet 3.4 g PO DAILY Qty: 30 RF: 0 nifedipine 60 mg Tablet Extended Release 24hr 120 mg PO DAILY 30 Days Qty: 60 RF: 0 metoprolol succinate 25 mg Tablet Extended Release 24 Hr 25 mg PO BID Qty: 30 RF: 0 temazepam 30 mg capsule 30 mg PO BEDTIME PRN (Reason: Insomnia) RF: 0 amitriptyline 10 mg tablet 10 mg PO DAILY 30 Days Qty: 30 RF: 0 amlodipine 5 mg tablet 5 mg PO DAILY 30 Days Qty: 30 RF: 0 atorvastatin 40 mg tablet 40 mg PO BEDTIME Qty: 30 RF: 0 cholecalciferol (vitamin D3) 25 mcg (1,000 unit) capsule 25 mcg PO DAILY Qty: 30 RF: 0 ferrous sulfate 250 mg (50 mg iron) tablet extended release 250 mg PO DAILY 30 Days Qty: 30 RF: 0 furosemide 20 mg tablet 20 mg PO BID 30 Days Qty: 60 RF: 0 levothyroxine 25 mcg capsule 25 mcg PO DAILY Qty: 30 RF: 0 loratadine [Allergy Relief (loratadine)] 10 mg tablet 10 mg PO DAILY Qty: 30 RF: 0 pantoprazole 20 mg tablet,delayed release (DR/EC) 20 mg PO DAILY Qty: 30 RF: 0 montelukast 10 mg tablet 10 mg PO BEDTIME Qty: 30 RF: 0 (DME) pen needle, diabetic [BD Sandra 2nd Gen Pen Needle] 32 gauge x 5/32 needle See Rx Instructions .Route Qty: 50 RF: 0 tramadol 50 mg tablet 50 mg PO BEDTIME 14 Days Qty: 14 RF: 0 (DME) blood-glucose meter [FreeStyle Lite Meter] Kit See Rx Instructions .Route Qty: 1 RF: 0 (DME) FreeStyle Lite Strips Strip See Rx Instructions .ROUTE .MEDSUPPLY Qty: 100 RF: 0 (DME) lancets [FreeStyle Lancets] 28 gauge misc See Rx Instructions .ROUTE .MEDSUPPLY Qty: 100 RF: 0 (DME) FreeStyle Lite Strips Strip See Rx Instructions .ROUTE .MEDSUPPLY Qty: 100 RF: 12 (DME) blood-glucose meter [FreeStyle Lite Meter] Kit See Rx Instructions .Route Qty: 1 RF: 0 cefuroxime axetil 250 mg tablet 250 mg PO BID RF: 0
[2021-05-02 16:11] VITALS: BP 124/67; PULSE 82; RESP 18; TEMP 36.6; O2SAT 99
[2021-05-02 16:20] LABS: MANUAL DIFF FLAG NO
[2021-05-02 16:22] LABS: Basophils Absolute Auto 0.1 X10*3/uL (0.0-0.2); Basophils Percent Auto 0.3 % (0-2); Eosinophils Absolute Auto 0.7 X10*3/uL (0.0-0.4); Eosinophils Percent Auto 4.9 % (0-4); Hematocrit 29.4 % (37.0-47.0); Hemoglobin 9.9 g/dl (12.0-16.0); Imm Gran Abs Auto 0.08 X10*3/uL (0.00-0.03); Imm Gran Pct Auto 0.5 % (0.0-0.4); Lymphocytes Absolute Auto 1.5 X10*3/uL (1.2-4.9); Mean Corpuscular HGB Conc 33.7 g/dl (31.0-35.0); Mean Corpuscular Hemoglobin 30.7 pg (27.0-33.0); Mean Corpuscular Volume 91.3 fL (80.0-98.0); Monocytes Absolute Auto 0.9 X10*3/uL (0.1-1.2); Monocytes Percent Auto 5.9 % (2-11); Neutrophils Absolute Auto 11.6 x10*3/uL (2.0-8.3); Neutrophils Percent Auto 78.4 % (45-73); Platelet Count 298 X10*3/uL (160-400); Red Blood Count 3.22 X10*6/uL (4.20-5.50); Red Cell Distribution Width 13.4 % (11.0-16.0); White Blood Count 14.8 X10*3/uL (4.8-10.8)
[2021-05-02] MEDS: 0.9 % Sodium Chloride 1,000 ML 999 ML IVCONT (16:23)
[2021-05-02] MEDS: ondansetron HCL 4 MG/2 ML VIAL IVPUSH (16:24)
[2021-05-02 17:00] LABS: Alanine Aminotransferase 15 U/L (0-31); Alkaline Phosphatase 117 U/L (39-117); Anion Gap 19 (12-20); Aspartate Amino Transferase 24 U/L (5-31); Bilirubin Total 0.5 mg/dL (0.0-1.0); Blood Urea Nitrogen 67 mg/dL (9-16); Calcium 6.6 mg/dL (8.4-10.2); Carbon Dioxide 18 mmol/L (22-29); Chloride 99 mmol/L (96-108); Creatinine Clr Calc Pharmacy 7.5; Estimated Glomerular Filt Rate 6; Glucose Random 187 mg/dL (60-115); Potassium 4.2 mmol/L (3.3-5.1); Sodium 132 mmol/L (135-145); Total Protein 6.1 g/dL (6.5-8.0)
[2021-05-02] MEDS: diphenhydrAMINE HCL 50 MG/ML VIAL 12.5 MG IVPUSH ×2 (17:25→17:35)
[2021-05-02 18:24] VITALS: BP 153/43; PULSE 80; RESP 16; O2SAT 97
[2021-05-02] MEDS: 0.9 % Sodium Chloride 1,000 ML 100 ML IVCONT (18:40)
--- NOTE | 2021-05-02 20:31 | P.HPHOSP_ITS ---
History of Present Illness Date of Service: 05/02/21 Chief Complaint: Diarrhea 72-year-old female with a past medical history of hypertension, hyperlipidemia, diabetes, chronic kidney disease stage by-not on dialysis currently, GERD, hypothyroidism, paroxysmal AFib, history of toe amputation presented to the hospital with a chief complaint of diarrhea. Patient reported that she was recently admitted to the hospital for pneumonia, finished course of antibiotics; over the past couple days she has been having diarrhea and has been feeling weak in general; has seen the doctor as outpatient was advised to go to the hospital for further evaluation. Denies any chest pain palpitations lightheadedness or dizziness. Reports that her stool is loose, foul-smelling, also noted intermittently black colored stools. Denies any numbness tingling or focal weakness. Reports he still continues to have dry cough. Review of all other systems is negative except mentioned above ER course: Per ER team patient on labs noted to have elevated creatinine; noted to be in KYLER on CKD; admitted to the hospital for further management. ER team notified from Nephrology-> who suggested gentle IV fluids. COUNTS INCLUDE 234 BEDS AT THE [facility] Medical History Arthritis Benign essential hypertension Chronic kidney disease, stage V GERD (gastroesophageal reflux disease) Hypothyroidism Paroxysmal atrial fibrillation Pure hypercholesterolemia Toe amputee Type 2 diabetes mellitus Pertinent family history: As mentioned above Surgical History Hx of appendectomy Social History Household Members: None Household Members Other:: self, son lives close by Housing: House Do you presently have visiting nurse or other home services: No Alcohol intake: never Patient Tobacco Use Status: Never used Tobacco Tobacco use type: Cigarette e-Cigarette/Vaping Use: Never Used Second Hand Smoke Exposure: No Advance Directives: No Advance Directives Information Provided: Yes service: No Current occupational status: retired Meds Allergies Allergy/AdvReac Type Severity Reaction Status Date / Time No Known Allergies Allergy Verified 04/26/21 10:46 Active Medications: Current Medications Acetaminophen (Acetaminophen 325 Mg Tablet) 650 mg PO Q6H PRN PRN Reason: Pain, Mild (Pain Scale 1-3) Dextrose (Dextrose 50 % 25 Gm/50 Ml Vial) 25 gm IVPUSH Q15M PRN; Protocol PRN Reason: per Hypoglycemia Standing Ord. Glucose (Glucose Gel 15 Gm Gel..Gram.) 15 gm PO Q15M PRN; Protocol PRN Reason: per Hypoglycemia Standing Ord. Sodium Chloride (Ns) 1,000 mls @ 100 mls/hr IVCONT .Q10H [facility] Last Admin: 05/02/21 18:40 Dose: 100 mls/hr Documented by: Insulin Human Lispro (Insulin Lispro 100 Unit/Ml 3 Ml Vial) 0 unit SUBCUT QIDACHS [facility]; Protocol Melatonin (Melatonin 3 Mg Tablet) 6 mg PO BEDTIME PRN PRN Reason: Insomnia Pharmacy Consult (Consult Rx Perform Med Rec) 1 each MISCELLANE ONCE STA Stop: 05/02/21 20:17 Senna (Sennosides 8.6 Mg Tablet) 17.2 mg PO BEDTIME PRN PRN Reason: Constipation Sodium Chloride (0.9 % Sodium Chloride Flush 3 Ml Syringe) 3 ml IVFLUSH QSHIFT [facility] Home Medications Medication Instructions Recorded Confirmed Last Taken Type cyanocobalamin (vitamin B-12) 1,000 mcg IM Q28D 04/14/21 05/02/21 04/14/21 History 1,000 mcg/mL injection solution cefuroxime axetil 250 mg tablet 250 mg PO BID tab 04/26/21 05/02/21 05/02/21 History aspirin 81 mg tablet,delayed 1 tab PO DAILY 05/02/21 05/02/21 05/02/21 History release tramadol 50 mg tablet 1 tab PO DAILY PRN 05/02/21 05/02/21 Unknown History Physical Exam Vital Signs and Narrative: Vital Signs: Last Vital Signs Temp 97.8 F 05/02/21 16:11 Pulse 80 05/02/21 18:24 Resp 16 05/02/21 18:24 BP 153/43 H 05/02/21 18:24 Pulse Ox 97 05/02/21 18:24 Body Mass Index 39.4 Gen: Appears be in no acute distress HEENT: NCAT, Moist mucosa. Pulmonary: Vesicular breath sounds, fair air entry CVS: Normal S1-S2 Abdomen: BS+, Soft, Nontender Extremities: Warm well perfused Neuro: Alert and awake. Results Labs CBC and Chem 7: 05/02/21 16:17 05/02/21 16:17 Labs: Laboratory Results - last 24 hr 05/02/21 05/02/21 16:17 16:17 MCV 91.3 MCH 30.7 MCHC 33.7 RDW 13.4 Plt Count 298 MPV 10.0 Immature Gran % (Auto) 0.5 H Neut % (Auto) 78.4 H Lymph % (Auto) 10.0 L [place] % (Auto) 5.9 Eos % (Auto) 4.9 H Baso % (Auto) 0.3 Lymph # (Auto) 1.5 [place] # (Auto) 0.9 Eos # (Auto) 0.7 H Baso # (Auto) 0.1 Abs Immat Gran (auto) 0.08 H Absolute Neuts (auto) 11.6 H Absolute Nucleated RBC 0.000 Nucleated RBC % (auto) 0.0 Anion Gap 19 Estim Creat Clear Calc 7.5 Estimated GFR 6 Random Glucose 187 H Calcium 6.6 L Total Bilirubin 0.5 AST 24 ALT 15 Alkaline Phosphatase 117 Total Protein 6.1 L Albumin 3.0 L Imaging Radiologist's Impressions: Impressions Chest X-Ray 05/02/21 16:04 IMPRESSION: Dense left lung base due to basilar consolidation or atelectasis and/or left pleural effusion. Abdomen/Pelvis CT 05/02/21 16:29 IMPRESSION: 1. Simple appearing bilateral small pleural effusions are noted, slightly increased since most recent prior limited CT scan of the abdomen performed at the time of the CT guided renal biopsy done on 04/24/2021. 2. Intraluminal gallbladder hyperdensities are noted likely represent gallbladder sludge, unchanged. 3. 2.3 cm exophytic hypodensity at the superior pole of the left kidney with Hounsfield value of 19, similar to prior study, likely represent an incidental cyst however, not optimally characterized. 4. No CT evidence of any bowel obstruction or bowel wall thickening or inflammatory changes. 5. Extensive vasculopathy in the form of diffuse calcifications of the aorta and is branches without aneurysm formation. 6. Multilevel moderate degenerative spondylosis of the visualized thoracolumbar spine. Assessment and Plan (1) Acute on chronic kidney failure: Status: Acute (2) Diarrhea: Status: Acute 72-year-old female with a past medical history of hypertension, hyperlipidemia, diabetes, chronic kidney disease stage by-not on dialysis currently, GERD, hypothyroidism, paroxysmal AFib, history of toe amputation presented to the hospital with a chief complaint of diarrhea. Diarrhea: Will obtain stool studies. Including C diff. Given patient is on antibiotics recently. Supportive care ? Black colored stools/melena: Will obtain occult blood test. For IV ppi. Gastroenterology consult; hold home aspirin for now GB sludge- Gi consulted. KYLER on CKD: Nephrology was notified. pt had recent renal Biposy. On gentle IV fluids. Avoid nephrotoxins. Hold home furosemide for now. Renal Cyst: nephrology consult on board for follow up. Diabetes: Insulin sliding scale. Hypertension: Continue home medications. History of atrial fibrillation: Patient on anticoagulation secondary to anemia. pt's cardiology aware and following. DVT ppx: SCD Full code Quality Stroke Does the patient have a stroke diagnosis?: No VTE Prior VTE?: No VTE Risk Level:: Medical - moderate - high VTE Device Contraindication: N/A - Device Ordered VTE Drug Contraindication: Treatment Not Indicated
[2021-05-02 21:05] LABS: Glucose, Whole Blood 160 mg/dL (60-115)
[2021-05-02] MEDS: Insulin Lispro 100 UNIT/ML 3 ML VIAL SUBCUT (21:16)
--- NOTE | 2021-05-02 21:29 | PHA.MEDREC ---
Pharmacy Consult ? Medication Reconciliation Pharmacy has completed the medication reconciliation. Pt unsure of what medications she takes, contacted [facility] pharmacy to confirm dosing, also tried to contact her son Jason but he did not answer phone left message for him to contact us.
[2021-05-03] VITALS (8 sets, daily range): BP systolic 90–145; BP diastolic 55–69; PULSE 77–85; RESP 14–25; TEMP 36.5–37; O2SAT 95–100
[2021-05-03] MEDS: 0.9 % Sodium Chloride 1,000 ML 100 ML IVCONT (04:47)
[2021-05-03] MEDS: Levothyroxine Sodium 25 MCG TABLET PO (06:16)
[2021-05-03] MEDS: Pantoprazole Sodium 40 MG/10 ML VIAL IVPUSH (06:16)
[2021-05-03 07:46] LABS: Glucose, Whole Blood 132 mg/dL (60-115)
[2021-05-03 08:26] LABS: Anion Gap 18 (12-20); Blood Urea Nitrogen 62 mg/dL (9-16); Calcium 6.6 mg/dL (8.4-10.2); Carbon Dioxide 17 mmol/L (22-29); Chloride 100 mmol/L (96-108); Creatinine Clr Calc Pharmacy 7.8; Estimated Glomerular Filt Rate 6; Glucose Random 129 mg/dL (60-115); Potassium 4.3 mmol/L (3.3-5.1); Sodium 131 mmol/L (135-145)
[2021-05-03 08:57] LABS: COVID-19 Test Negative (Negative)
--- NOTE | 2021-05-03 09:59 | MHC.CM.PN ---
Met with patient and elevator repairer helper in regards to discharge planning. Patient lives alone. Son, Jsaon lives next door. Patient ambulates with a walker and had no services prior to coming to the hospital. Patient was d/c'd from [facility] on 04/25. Had a follow up appointment with Dr Khan on 04/26. Patient came to the hospital after Dr Khan sent her to the ER due to weakness and diarrhea. Patient is currently on oxygen. Does not have oxygen at home. May need eval for home oxygen when ready for discharge. Patient agreeable to [facility] referral for chronic disease management. Referral made via [employer]. Patient states she received 2 Covid vaccines but doesn't have her card with her. She came to live in [facility] 4 months ago. She was living in [place] prior to that. IMM explained. Patient unable to see due to cataract issues. IMM left at bedside. Patient's son will transport patient home when medically stable. Continue to monitor for d/c needs.
[2021-05-03] MEDS: Loratadine 10 MG TABLET PO (10:30)
[2021-05-03] MEDS: Cholecalciferol (Vitamin D3) 25 MCG TABLET PO (10:30)
[2021-05-03] MEDS: Metoprolol Succinate ER 25 MG TAB.ER.24H PO (10:32)
[2021-05-03] MEDS: NIFEdipine ER 60 MG TAB.ER.24 120 MG PO (10:32)
[2021-05-03] MEDS: 0.9 % Sodium Chloride Flush 3 ML SYRINGE IVFLUSH ×3 (10:32→23:49)
--- NOTE | 2021-05-03 10:33 | PC.NURSE ---
Pt appears comfortbale at this time. Awaiting inpatient bed. VSS
--- NOTE | 2021-05-03 11:50 | PC.NURSE ---
Pt placed on NPO diet at this time for scheduled procedure which will be taking place this afternoon per IR
--- NOTE | 2021-05-03 12:09 | HO.PM.IMPN ---
Subjective Subjective Date of Service: 05/03/21 Interval History: cc: weak interval history: still very weak Cardiovascular Cardiovascular: Reports no additional cardiovascular complaints Respiratory Respiratory: Reports no additional respiratory complaints Physical Exam Vital Signs: Vital Signs: Last Vital Signs Temp 97.8 F 05/02/21 16:11 Pulse 80 05/03/21 10:32 Resp 20 05/03/21 10:08 BP 132/55 L 05/03/21 10:32 Pulse Ox 97 05/03/21 10:08 Body Mass Index 39.4 General: lethargic, ill appearing Resp: CTA bilateral, no accessory muscles used CVS: S1,S2,RRR GI: soft, non tender, non distended Neuro: motor grossly intact, alert Psych: appropriate affect, impaired insight Objective Data Active Medications Acetaminophen (Acetaminophen 325 Mg Tablet) 650 mg PO Q6H PRN PRN Reason: Pain, Mild (Pain Scale 1-3) Atorvastatin Calcium (Atorvastatin Calcium 40 Mg Tablet) 40 mg PO BEDTIME [facility] Cyanocobalamin (Cyanocobalamin (Vitamin B-12) 1,000 Mcg/Ml Vial) 1,000 mcg IM Q28D [facility] Dextrose (Dextrose 50 % 25 Gm/50 Ml Vial) 25 gm IVPUSH Q15M PRN; Protocol PRN Reason: per Hypoglycemia Standing Ord. Glucose (Glucose Gel 15 Gm Gel..Gram.) 15 gm PO Q15M PRN; Protocol PRN Reason: per Hypoglycemia Standing Ord. Insulin Human Lispro (Insulin Lispro 100 Unit/Ml 3 Ml Vial) 0 unit SUBCUT QIDACHS [facility]; Protocol Last Admin: 05/03/21 11:51 Dose: Not Given Documented by: WEI Non-Admin Reason: NPO Levothyroxine Sodium (Levothyroxine Sodium 25 Mcg Tablet) 25 mcg PO DAILY@0600 [facility] Last Admin: 05/03/21 06:16 Dose: 25 mcg Documented by: PRECIOUS Loratadine (Loratadine 10 Mg Tablet) 10 mg PO DAILY [facility] Last Admin: 05/03/21 10:30 Dose: 10 mg Documented by: WEI Melatonin (Melatonin 3 Mg Tablet) 6 mg PO BEDTIME PRN PRN Reason: Insomnia Metoprolol Succinate (Metoprolol Succinate Er 25 Mg Tab.Er.24h) 25 mg PO DAILY [facility]; Protocol Last Admin: 05/03/21 10:32 Dose: 25 mg Documented by: WEI Montelukast Sodium (Montelukast Sodium 10 Mg Tablet) 10 mg PO BEDTIME [facility] Nifedipine (Nifedipine Er 60 Mg Tab.Er.24) 120 mg PO DAILY [facility]; Protocol Last Admin: 05/03/21 10:32 Dose: 120 mg Documented by: WEI Pantoprazole Sodium (Pantoprazole Sodium 40 Mg/10 Ml Vial) 40 mg IVPUSH DAILY@0630 [facility] Last Admin: 05/03/21 06:16 Dose: 40 mg Documented by: PRECIOUS Psyllium Hydrophilic Mucilloid (Psyllium Seed 3.4 Gm Powd.Pack) 3.4 gm PO DAILY [facility] Last Admin: 05/03/21 10:29 Dose: 3.4 gm Documented by: WEI Senna (Sennosides 8.6 Mg Tablet) 17.2 mg PO BEDTIME PRN PRN Reason: Constipation Sodium Chloride (0.9 % Sodium Chloride Flush 3 Ml Syringe) 3 ml IVFLUSH QSHIFT [facility] Last Admin: 05/03/21 10:32 Dose: 3 ml Documented by: WEI Tramadol HCl (Tramadol Hcl 50 Mg Tablet) 50 mg PO DAILY PRN PRN Reason: Pain (Scale Score 4-6) Vitamin D (Cholecalciferol (Vitamin D3) 25 Mcg Tablet) 25 mcg PO DAILY [facility] Last Admin: 05/03/21 10:30 Dose: 25 mcg Documented by: WEI Labs CBC & Chem 7: 05/02/21 16:17 05/03/21 06:57 Labs: Laboratory Results - last 24 hr 05/02/21 05/02/21 05/02/21 16:17 16:17 21:02 MCV 91.3 MCH 30.7 MCHC 33.7 RDW 13.4 Plt Count 298 MPV 10.0 Immature Gran % (Auto) 0.5 H Neut % (Auto) 78.4 H Lymph % (Auto) 10.0 L [place] % (Auto) 5.9 Eos % (Auto) 4.9 H Baso % (Auto) 0.3 Lymph # (Auto) 1.5 [place] # (Auto) 0.9 Eos # (Auto) 0.7 H Baso # (Auto) 0.1 Abs Immat Gran (auto) 0.08 H Absolute Neuts (auto) 11.6 H Absolute Nucleated RBC 0.000 Nucleated RBC % (auto) 0.0 Anion Gap 19 Estim Creat Clear Calc 7.5 Estimated GFR 6 POC Glucose 160 H Random Glucose 187 H Calcium 6.6 L Total Bilirubin 0.5 AST 24 ALT 15 Alkaline Phosphatase 117 Total Protein 6.1 L Albumin 3.0 L COVID-19 ([facility]) COVID-19 Clin Com 05/03/21 05/03/21 05/03/21 06:57 07:37 08:40 MCV MCH MCHC RDW Plt Count MPV Immature Gran % (Auto) Neut % (Auto) Lymph % (Auto) [place] % (Auto) Eos % (Auto) Baso % (Auto) Lymph # (Auto) [place] # (Auto) Eos # (Auto) Baso # (Auto) Abs Immat Gran (auto) Absolute Neuts (auto) Absolute Nucleated RBC Nucleated RBC % (auto) Anion Gap 18 Estim Creat Clear Calc 7.8 Estimated GFR 6 POC Glucose 132 H Random Glucose 129 H Calcium 6.6 L Total Bilirubin AST ALT Alkaline Phosphatase Total Protein Albumin COVID-19 ([facility]) Negative COVID-19 Clin Com See Note Assessment and Plan (1) Acute on chronic kidney failure: Status: Acute Assessment and Plan: 72F with CKD V approaching HD, presented with weakness, diarrhea weakness due to advanced CKD V, uremia plan for HD tomorrow, temp cath today follow up biopsy monitor bmp diarrhea follow up cdif DM inuslin htn toprol nifedipine hypothyeoid synhtroid paroxysmal atrial fibrillation diagnosed on last admission currently in sinus not started on eliquis due to concern for bleeding continue toprol Quality Stroke Does the patient have a stroke diagnosis?: No VTE Prior VTE?: No VTE Risk Level:: Medical - moderate - high VTE Device Contraindication: N/A - Device Ordered VTE Drug Contraindication: Treatment Not Indicated
[2021-05-03 13:10] LABS: Glucose, Whole Blood 168 mg/dL (60-115)
[2021-05-03 14:41] LABS: INTERNATIONAL NORM RATIO 1.1 (0.9-1.1); Prothrombin Time 12.4 SEC (9.9-13.0)
[2021-05-03 14:43] LABS: Partial Thromboplastin Time 42.6 SEC (24.1-38.0)
--- NOTE | 2021-05-03 16:48 | CONS_ITS ---
DATE OF SERVICE: 05/03/2021 REFERRING PHYSICIAN: Korey Bender MD REASON FOR CONSULTATION: Diarrhea. HISTORY OF PRESENT ILLNESS: The patient is a pleasant 75-year-old woman who was admitted to the hospital after presenting to the emergency room yesterday with complaints of diarrhea. Symptoms have been present for about 2 years by her report. She is seen with a neurosurgeon and is focused on the fact that she thinks she has worms. She denies any recent travel except to [place] and [place] over the past 2 years. She has no ill contacts and no suspect food ingestions. She does not recall undergoing colonoscopy. She has had some nausea and vomiting. In the emergency department, she was reported to have a large loose brown bowel movement. Stool occult blood testing is ordered but has not been done. Of note, she was recently hospitalized with pneumonia and has been on antibiotics. Stool occult blood testing earlier in the month was negative. PAST MEDICAL HISTORY: 1. Chronic kidney disease. 2. Hypertension. 3. Hyperlipidemia. 4. Diabetes. 5. Gastroesophageal reflux disease. 6. Atrial fibrillation. 7. Toe amputation. 8. Hypothyroidism. CURRENT MEDICATIONS: List is reviewed in the chart. ALLERGIES: THERE ARE NONE REPORTED. FAMILY HISTORY: This is reviewed with the patient and is negative for GI malignancy. SOCIAL HISTORY: She denies tobacco and alcohol use. REVIEW OF SYSTEMS: SKIN: No pruritus. HEENT: Negative. CARDIOPULMONARY: No shortness of breath or chest pain. GASTROINTESTINAL: As above. GENITOURINARY: Negative. NEUROPSYCHIATRIC: Negative PHYSICAL EXAMINATION: GENERAL: Shows a pleasant female, lying comfortably in bed. VITAL SIGNS: Reviewed in electronic medical record and are stable. She is tolerating liquids. SKIN: Anicteric. HEENT: Shows no scleral icterus. NECK: Without lymphadenopathy or thyromegaly. LUNGS: Clear. HEART: Shows a regular rate and rhythm. S1, S2. No murmur. ABDOMEN: Soft without focal masses or tenderness. Bowel sounds are present. No organomegaly is noted. EXTREMITIES: Without edema. IMPRESSION: Nausea, vomiting, and diarrhea. At this time, she shows no signs of GI bleeding. Stool occult blood testing has been ordered and is pending. I would recommend stool culture and parasite testing. Her presentation seems consistent with possible viral gastroenteritis. Also possible is antibiotic associated diarrhea and I would recommend checking for Clostridium difficile. Thanks for asking me to see her. I will follow her in the hospital with you. MD MASON Araya/RACHELL / [phone]
[2021-05-03] MEDS: Lidocaine HCl 1 % MPF 5 ML VIAL 10 ML INFILTRATI (17:13)
[2021-05-03] MEDS: Heparin Sodium,Porcine 1,000 UNIT/ML VIAL 2400 UNIT IV (17:15)
[2021-05-03] MEDS: Acetaminophen 325 MG TABLET 650 MG PO ×2 (17:23→23:57)
[2021-05-03 17:40] LABS: Glucose, Whole Blood 145 mg/dL (60-115)
[2021-05-03 20:15] LABS: Glucose, Whole Blood 162 mg/dL (60-115)
[2021-05-03] MEDS: Atorvastatin Calcium 40 MG TABLET PO (21:15)
[2021-05-03] MEDS: Montelukast Sodium 10 MG TABLET PO (21:15)
[2021-05-03] MEDS: Insulin Lispro 100 UNIT/ML 3 ML VIAL SUBCUT (21:15)
[2021-05-04] VITALS (9 sets, daily range): BP systolic 128–176; BP diastolic 57–100; PULSE 74–81; RESP 18–21; TEMP 36.3–37; O2SAT 94–99
[2021-05-04] MEDS: Albuterol/Iprat 2.5/0.5MG 3 ML AMPUL.NEB INHALE (00:21)
[2021-05-04] MEDS: traMADoL HCL 50 MG TABLET PO (03:59)
[2021-05-04 04:13] LABS: OBS Int Ctl Valid YES; OBS1 POSITIVE (NEGATIVE)
[2021-05-04 05:01] LABS: CDiff Gene PCR NEGATIVE (Negative)
[2021-05-04 05:38] LABS: Leukocytes Stool Qualitative NEGATIVE (NEGATIVE)
[2021-05-04 05:41] LABS: Hematocrit 26.3 % (37.0-47.0); Mean Corpuscular HGB Conc 34.2 g/dl (31.0-35.0); Mean Corpuscular Hemoglobin 31.3 pg (27.0-33.0); Mean Corpuscular Volume 91.3 fL (80.0-98.0); Mean Platelet Volume 9.8 fL (9.4-12.3); Platelet Count 307 X10*3/uL (160-400); Red Blood Count 2.88 X10*6/uL (4.20-5.50); Red Cell Distribution Width 13.5 % (11.0-16.0)
[2021-05-04] MEDS: Levothyroxine Sodium 25 MCG TABLET PO (05:55)
[2021-05-04] MEDS: Pantoprazole Sodium 40 MG/10 ML VIAL IVPUSH (05:55)
--- NOTE | 2021-05-04 06:23 | PC.NURSE ---
STOOL SPEC COLLECTED AND SENT TO LAB FOR TESTING ORDERED; NOTED STOOL OB POSITIVE, C DIFF NEGATIVE, LEUKOCYTES NEGATIVE. HOSPITALIST ON DUTY ALERTED VIA TIGER TEXT AND NOTED TO HAVE BEEN READ. WILL CONTINUE TO MONITOR PATIENT.
--- NOTE | 2021-05-04 06:24 | P.EN_ITS ---
Event Note Date of Service: 05/14/21 Event Note: Guaiac positive Stool; Hgb slightly chnaged from 9.9 to 9.0; Day h ospitalist to follow up with GI consult.
--- NOTE | 2021-05-04 06:24 | PM.EVENT ---
Event Note Date of Service: 05/14/21 Event Note: Guaiac positive Stool; Hgb slightly chnaged from 9.9 to 9.0; Day hospitalist to follow up with GI consult.
[2021-05-04 06:29] LABS: Anion Gap 18 (12-20); Blood Urea Nitrogen 67 mg/dL (9-16); Calcium 6.6 mg/dL (8.4-10.2); Carbon Dioxide 17 mmol/L (22-29); Chloride 98 mmol/L (96-108); Creatinine Clr Calc Pharmacy 7.4; Estimated Glomerular Filt Rate 6; Glucose Fasting 92 mg/dL (60-99); Potassium 4.4 mmol/L (3.3-5.1); Sodium 129 mmol/L (135-145)
--- NOTE | 2021-05-04 06:33 | MHC.PIE ---
p; critical lab CR 6.83 i; dr monet notified e; will cont to monitor
[2021-05-04] MEDS: Loratadine 10 MG TABLET PO (07:38)
[2021-05-04] MEDS: Cholecalciferol (Vitamin D3) 25 MCG TABLET PO (07:38)
[2021-05-04] MEDS: 0.9 % Sodium Chloride Flush 3 ML SYRINGE IVFLUSH ×2 (07:38→15:47)
[2021-05-04 07:48] LABS: Glucose, Whole Blood 95 mg/dL (60-115)
--- NOTE | 2021-05-04 09:15 | MHC.CLN ---
NUTRITION PATIENT WITH STAGE 5 CKD AND DM. STARTING HEMODIALYSIS. DIET CHANGED TO DIABETIC 1800 KCAL, 2 GRAM SODIUM, LOW PHOSPHOROUS, LOW POTASSIUM FOR DIALYSIS NEEDS.
--- NOTE | 2021-05-04 10:29 | W.PM.DNNEP ---
Subjective Subjective This patient was seen during dialysis. Interval history: Feeling better Physical Exam Vital Signs: Vital Signs: Last Vital Signs Temp 97.4 F 05/04/21 08:00 Pulse 78 05/04/21 08:00 Resp 20 05/04/21 08:00 BP 131/63 05/04/21 08:00 Pulse Ox 98 05/04/21 08:00 Body Mass Index 39.4 Const: General: cooperative and comfortable Neck: Neck: Yes supple and Yes no JVD Resp: Auscultation: rales and rhonchi Cardio: Palpation: no palpable S3 Heart sounds: no murmurs and no rubs GI: Palpation (GI): Soft to palpation Auscultation: normal bowel sounds Neuro: Motor exam (neuro): no asterixis Assessment & Plan Assessment and plan (1) Chronic kidney disease, stage V: Assessment and Plan: CKD 5 Most likely due to hypertensive diabetic kidney disease s/p Kidney biopsy- results pending; Shall tract down First HD today Second HD scheduled for 05/05/21 Will ordered Permcath for Friday Out patient HD arranged at [facility] Concur with current medical management Time Spent With Patient Time: Total time spent is greater than 50% in coordination of care (as documented) at patient's floor/unit and/or counseling patient: Time with patient: 15 - 24 minutes Procedures Date of Service Date of Service: 05/04/21
--- NOTE | 2021-05-04 10:42 | HO.PM.IMPN ---
Subjective Subjective Date of Service: 05/04/21 Interval History: cc: weak interval history: still very weak Cardiovascular Cardiovascular: Reports no additional cardiovascular complaints Respiratory Respiratory: Reports no additional respiratory complaints Physical Exam Vital Signs: Vital Signs: Last Vital Signs Temp 97.4 F 05/04/21 08:00 Pulse 78 05/04/21 08:00 Resp 20 05/04/21 08:00 BP 131/63 05/04/21 08:00 Pulse Ox 98 05/04/21 08:00 Body Mass Index 39.4 General: lethargic, ill appearing Resp:? CTA bilateral, no accessory muscles used CVS: S1,S2,RRR GI: soft, non tender, non distended Neuro:? motor grossly intact, alert Psych: appropriate affect, impaired insight? Objective Data Active Medications Acetaminophen (Acetaminophen 325 Mg Tablet) 650 mg PO Q6H PRN PRN Reason: Pain, Mild (Pain Scale 1-3) Last Admin: 05/03/21 23:57 Dose: 650 mg Documented by: BLAKE Albuterol/Ipratropium (Albuterol/Iprat 2.5/0.5mg 3 Ml Ampul.Neb) 3 ml INHALE RQ4H PRN PRN Reason: sob Last Admin: 05/04/21 00:21 Dose: 3 ml Documented by: VERITO Atorvastatin Calcium (Atorvastatin Calcium 40 Mg Tablet) 40 mg PO BEDTIME [facility] Last Admin: 05/03/21 21:15 Dose: 40 mg Documented by: SHERITA Cyanocobalamin (Cyanocobalamin (Vitamin B-12) 1,000 Mcg/Ml Vial) 1,000 mcg IM Q28D [facility] Dextrose (Dextrose 50 % 25 Gm/50 Ml Vial) 25 gm IVPUSH Q15M PRN; Protocol PRN Reason: per Hypoglycemia Standing Ord. Glucose (Glucose Gel 15 Gm Gel..Gram.) 15 gm PO Q15M PRN; Protocol PRN Reason: per Hypoglycemia Standing Ord. Insulin Human Lispro (Insulin Lispro 100 Unit/Ml 3 Ml Vial) 0 unit SUBCUT QIDACHS [facility]; Protocol Last Admin: 05/04/21 07:23 Dose: Not Given Documented by: SIA Non-Admin Reason: No Insulin Coverage Levothyroxine Sodium (Levothyroxine Sodium 25 Mcg Tablet) 25 mcg PO DAILY@0600 [facility] Last Admin: 05/04/21 05:55 Dose: 25 mcg Documented by: BLAKE Loratadine (Loratadine 10 Mg Tablet) 10 mg PO DAILY [facility] Last Admin: 05/04/21 07:38 Dose: 10 mg Documented by: SIA Melatonin (Melatonin 3 Mg Tablet) 6 mg PO BEDTIME PRN PRN Reason: Insomnia Metoprolol Succinate (Metoprolol Succinate Er 25 Mg Tab.Er.24h) 25 mg PO DAILY [facility]; Protocol Last Admin: 05/03/21 10:32 Dose: 25 mg Documented by: WEI Montelukast Sodium (Montelukast Sodium 10 Mg Tablet) 10 mg PO BEDTIME [facility] Last Admin: 05/03/21 21:15 Dose: 10 mg Documented by: SHERITA Nifedipine (Nifedipine Er 60 Mg Tab.Er.24) 120 mg PO DAILY [facility]; Protocol Last Admin: 05/03/21 10:32 Dose: 120 mg Documented by: WEI Pantoprazole Sodium (Pantoprazole Sodium 40 Mg/10 Ml Vial) 40 mg IVPUSH DAILY@0630 [facility] Last Admin: 05/04/21 05:55 Dose: 40 mg Documented by: BLAKE Psyllium Hydrophilic Mucilloid (Psyllium Seed 3.4 Gm Powd.Pack) 3.4 gm PO DAILY [facility] Last Admin: 05/04/21 07:39 Dose: 3.4 gm Documented by: SIA Senna (Sennosides 8.6 Mg Tablet) 17.2 mg PO BEDTIME PRN PRN Reason: Constipation Sodium Chloride (0.9 % Sodium Chloride Flush 3 Ml Syringe) 3 ml IVFLUSH QSHIFT [facility] Last Admin: 05/04/21 07:38 Dose: 3 ml Documented by: SIA Tramadol HCl (Tramadol Hcl 50 Mg Tablet) 50 mg PO DAILY PRN PRN Reason: Pain (Scale Score 4-6) Last Admin: 05/04/21 03:59 Dose: 50 mg Documented by: BLAKE Vitamin D (Cholecalciferol (Vitamin D3) 25 Mcg Tablet) 25 mcg PO DAILY [facility] Last Admin: 05/04/21 07:38 Dose: 25 mcg Documented by: SIA Labs CBC & Chem 7: 05/04/21 05:17 05/04/21 05:17 Labs: Laboratory Results - last 24 hr 05/03/21 05/03/21 05/03/21 12:53 13:53 17:35 MCV MCH MCHC RDW Plt Count MPV Absolute Nucleated RBC Nucleated RBC % (auto) PT 12.4 INR 1.1 APTT 42.6 H Anion Gap Estim Creat Clear Calc Estimated GFR POC Glucose 168 H 145 H Fasting Glucose Calcium Stool Occult Blood Stool Leukocytes, Qual C. difficile Tox B Gene 05/03/21 05/04/21 05/04/21 19:35 03:49 03:49 MCV MCH MCHC RDW Plt Count MPV Absolute Nucleated RBC Nucleated RBC % (auto) PT INR APTT Anion Gap Estim Creat Clear Calc Estimated GFR POC Glucose 162 H Fasting Glucose Calcium Stool Occult Blood Stool Leukocytes, Qual NEGATIVE C. difficile Tox B Gene NEGATIVE 05/04/21 05/04/21 05/04/21 03:49 05:17 05:17 MCV 91.3 MCH 31.3 MCHC 34.2 RDW 13.5 Plt Count 307 MPV 9.8 Absolute Nucleated RBC 0.000 Nucleated RBC % (auto) 0.0 PT INR APTT Anion Gap 18 Estim Creat Clear Calc 7.4 Estimated GFR 6 POC Glucose Fasting Glucose 92 Calcium 6.6 L Stool Occult Blood POSITIVE Stool Leukocytes, Qual C. difficile Tox B Gene 05/04/21 07:20 MCV MCH MCHC RDW Plt Count MPV Absolute Nucleated RBC Nucleated RBC % (auto) PT INR APTT Anion Gap Estim Creat Clear Calc Estimated GFR POC Glucose 95 Fasting Glucose Calcium Stool Occult Blood Stool Leukocytes, Qual C. difficile Tox B Gene Assessment and Plan (1) Acute on chronic kidney failure: Status: Acute Assessment and Plan: 72F with CKD V approaching HD, presented with weakness, diarrhea weakness due to advanced CKD V, uremia starting HD today via temp cath placed 05/03 follow up biopsy, plan for permacath monday 05/07 monitor bmp diarrhea follow up cdif DM inuslin htn toprol nifedipine hypothyeoid synhtroid paroxysmal atrial fibrillation diagnosed on last admission currently in sinus not started on eliquis due to concern for bleeding continue toprol Quality Stroke Does the patient have a stroke diagnosis?: No VTE Prior VTE?: No VTE Risk Level:: Medical - moderate - high VTE Device Contraindication: N/A - Device Ordered VTE Drug Contraindication: Treatment Not Indicated
[2021-05-04] MEDS: Acetaminophen 325 MG TABLET 650 MG PO (10:48)
--- NOTE | 2021-05-04 11:05 | CONS_ITS ---
DATE OF SERVICE: 05/03/2021 REASON FOR CONSULTATION: I was called to see this patient to assist in the management of the patient for advanced kidney disease. HISTORY OF PRESENT ILLNESS: To summarize, Carolina is a 75-year-old woman with a history of advanced kidney disease. She has a history of longstanding hypertension and diabetes mellitus. She was seen by my associate, Dr. Ramos in the office yesterday. She was having diarrhea and also she had some decrease in appetite. She was sent to ER for further evaluation. Her ongoing medical problems include history of stage 5 chronic kidney disease, recently had a kidney biopsy about a week ago and the results are still pending. She has a longstanding history of hypertension, diabetes mellitus complicated by diabetic neuropathy. The presumed diagnosis is underlying diabetic hypertensive kidney disease. She is currently in the emergency room and being worked up for the diarrhea. PAST MEDICAL HISTORY: Ongoing medical problems include history of stage 5 chronic kidney disease, hypertension, diabetes mellitus, anemia, history of diastolic dysfunction, obesity, and history of vitreous hemorrhage. SOCIAL HISTORY: Lives with her son. No history of smoking or alcohol abuse. FAMILY HISTORY: Significant for diabetes mellitus. No history of kidney disease. SURGICAL HISTORY: Significant for appendicectomy and a kidney biopsy done about a week ago. REVIEW OF SYSTEMS: Positive for some diarrhea. No abdominal pain. No nausea or vomiting. No urinary symptoms. No fever. No weight loss. All other systems were reviewed. ALLERGIES: NO KNOWN DRUG ALLERGIES. HOME MEDICATIONS: Include temazepam, vitamin B12, amlodipine, aspirin, atorvastatin, levothyroxine, loratadine, montelukast, and vitamin D. PHYSICAL EXAMINATION: GENERAL: On examination, Carolina is a 75-year-old woman who is obese, she is comfortable, awake, not in distress. NECK: Supple. No JVD. LUNGS: Air entry equal. Bibasilar crackles. HEART: S1 and S2 heard. No gallop or rub. ABDOMEN: Abdomen is obese, soft, and nontender. Bowel sounds heard. NEURO: She is alert and awake. No asterixis. EXTREMITIES: No significant edema. No rash. No clubbing. VITAL SIGNS: Blood pressure today was 132/55, pulse 80. She is afebrile. LABORATORY DATA: WBC 14.8, hemoglobin 9.9, and platelets 298. Sodium 131, potassium 4.3, BUN 62, creatinine 6.45, and calcium 6.6. Serological tests were reviewed. CT abdomen and pelvis on admission showed no hydronephrosis, no obstruction. Chest x-ray on admission showed dense left lung base with basilar consolidation, possible left pleural effusion. No significant pulmonary vascular congestion was reported. IMPRESSION: A 75-year-old woman with longstanding diabetes mellitus, hypertension with advanced kidney disease, comes in with diarrhea. Carolina has stage 5 chronic kidney disease and she is approaching ESRD. The plan will be to initiate hemodialysis during this admission. We can discontinue IV fluids at this time. Continue to avoid hypotension and avoid nephrotoxic agents. I agree with current workup for the diarrhea. Hold aspirin for now. We will remove fluid with dialysis as tolerated and continue to monitor the hemoglobin closely and start on Epogen as needed. She has mild acidosis due to underlying CKD. If the serum bicarb drops further, we will add oral sodium bicarbonate. We will follow closely with the team. I have discussed with her son over the telephone. MD MIK Roman/MODL / [phone]
[2021-05-04 11:32] LABS: HBc Num1 0.08 S/CO (0.00-0.79); Hepatitis B Core Antibody Nonreactive (Nonreactive)
[2021-05-04 12:17] LABS: HBS Num1 1.75 mIU/mL (0-7.99); HBsAGNum1 0.25 S/CO (0.00-0.99); Hepatitis B Surface Antigen Negative (Negative); ~Hepatitis B Surface Antibody NONREACTIVE (Nonreactive)
[2021-05-04] MEDS: NIFEdipine ER 60 MG TAB.ER.24 120 MG PO (12:29)
[2021-05-04] MEDS: Metoprolol Succinate ER 25 MG TAB.ER.24H PO (12:29)
--- NOTE | 2021-05-04 14:22 | MHC.CM.PN ---
EMR REVIEWED, PER HOSPITALIST PT STARTED ON NEW HD, PLAN FOR PERMA CATH PLACEMENT ON FRIDAY, PER NEPHROLOGY NOTE PT WILL BE DOING OUPT HD AT [facility] ONCE MEDICALLY CLEARED FOR D/C. CM WILL CONT TO FOLLOW D/C NEEDS.
[2021-05-04 16:24] LABS: Glucose, Whole Blood 113 mg/dL (60-115)
[2021-05-04 16:24] LABS: Glucose, Whole Blood 195 mg/dL (60-115)
[2021-05-04] MEDS: Insulin Lispro 100 UNIT/ML 3 ML VIAL SUBCUT ×2 (17:15→20:40)
[2021-05-04 20:33] LABS: Glucose, Whole Blood 199 mg/dL (60-115)
[2021-05-04] MEDS: Melatonin 3 MG TABLET 6 MG PO (20:41)
[2021-05-04] MEDS: Atorvastatin Calcium 40 MG TABLET PO (20:41)
[2021-05-04] MEDS: Montelukast Sodium 10 MG TABLET PO (20:41)
[2021-05-05] VITALS (7 sets, daily range): BP systolic 139–146; BP diastolic 62–80; PULSE 74–87; RESP 17–18; TEMP 36–36.2; O2SAT 96–99
[2021-05-05] MEDS: 0.9 % Sodium Chloride Flush 3 ML SYRINGE IVFLUSH ×3 (00:08→17:27)
[2021-05-05] MEDS: Melatonin 3 MG TABLET 6 MG PO (00:08)
[2021-05-05] MEDS: Albuterol/Iprat 2.5/0.5MG 3 ML AMPUL.NEB INHALE (00:31)
[2021-05-05 05:49] LABS: Hematocrit 27.6 % (37.0-47.0); Hemoglobin 8.9 g/dl (12.0-16.0); Mean Corpuscular HGB Conc 32.2 g/dl (31.0-35.0); Mean Corpuscular Hemoglobin 30.3 pg (27.0-33.0); Mean Corpuscular Volume 93.9 fL (80.0-98.0); Mean Platelet Volume 11.2 fL (9.4-12.3); Platelet Count 207 X10*3/uL (160-400); Red Blood Count 2.94 X10*6/uL (4.20-5.50); Red Cell Distribution Width 13.3 % (11.0-16.0); White Blood Count 12.8 X10*3/uL (4.8-10.8)
[2021-05-05 06:01] LABS: Anion Gap 19 (12-20); Blood Urea Nitrogen 41 mg/dL (9-16); Calcium 6.9 mg/dL (8.4-10.2); Carbon Dioxide 16 mmol/L (22-29); Chloride 99 mmol/L (96-108); Creatinine Clr Calc Pharmacy 10.1; Estimated Glomerular Filt Rate 9; Glucose Fasting 154 mg/dL (60-99); Potassium 4.6 mmol/L (3.3-5.1); Sodium 129 mmol/L (135-145)
[2021-05-05] MEDS: Pantoprazole Sodium 40 MG/10 ML VIAL IVPUSH (07:33)
[2021-05-05] MEDS: Levothyroxine Sodium 25 MCG TABLET PO (07:33)
[2021-05-05 08:00] LABS: Glucose, Whole Blood 139 mg/dL (60-115)
[2021-05-05] MEDS: Metoprolol Succinate ER 25 MG TAB.ER.24H PO (09:08)
[2021-05-05] MEDS: NIFEdipine ER 60 MG TAB.ER.24 120 MG PO (09:08)
[2021-05-05] MEDS: Loratadine 10 MG TABLET PO (09:08)
[2021-05-05] MEDS: Cholecalciferol (Vitamin D3) 25 MCG TABLET PO (09:08)
--- NOTE | 2021-05-05 10:08 | P.PNIM_ITS ---
Subjective Subjective Date of Service: 05/05/21 Interval History: cc: weak interval history: still very weak, rue swelling improved Cardiovascular Cardiovascular: Reports no additional cardiovascular complaints Respiratory Respiratory: Reports no additional respiratory complaints Physical Exam Vital Signs: Vital Signs: Last Vital Signs Temp 96.9 F 05/05/21 08:00 Pulse 74 05/05/21 09:08 Resp 17 05/05/21 08:00 BP 146/65 H 05/05/21 09:08 Pulse Ox 99 05/05/21 08:00 Body Mass Index 39.4 General: lethargic, ill appearing Resp:? CTA bilateral, no accessory muscles used CVS: S1,S2,RRR GI: soft, non tender, non distended Neuro:? motor grossly intact, alert Psych: appropriate affect, impaired insight? ipmroved RUE swelling Objective Data Active Medications Acetaminophen (Acetaminophen 325 Mg Tablet) 650 mg PO Q6H PRN PRN Reason: Pain, Mild (Pain Scale 1-3) Last Admin: 05/04/21 10:48 Dose: 650 mg Documented by: MIROSLAVA Albuterol/Ipratropium (Albuterol/Iprat 2.5/0.5mg 3 Ml Ampul.Neb) 3 ml INHALE RQ4H PRN PRN Reason: sob Last Admin: 05/05/21 00:31 Dose: 3 ml Documented by: AMRIK Atorvastatin Calcium (Atorvastatin Calcium 40 Mg Tablet) 40 mg PO BEDTIME MARKIE Last Admin: 05/04/21 20:41 Dose: 40 mg Documented by: ANITRA Cyanocobalamin (Cyanocobalamin (Vitamin B-12) 1,000 Mcg/Ml Vial) 1,000 mcg IM Q28D [facility] Dextrose (Dextrose 50 % 25 Gm/50 Ml Vial) 25 gm IVPUSH Q15M PRN; Protocol PRN Reason: per Hypoglycemia Standing Ord. Glucose (Glucose Gel 15 Gm Gel..Gram.) 15 gm PO Q15M PRN; Protocol PRN Reason: per Hypoglycemia Standing Ord. Insulin Human Lispro (Insulin Lispro 100 Unit/Ml 3 Ml Vial) 0 unit SUBCUT QIDACHS [facility]; Protocol Last Admin: 05/05/21 07:56 Dose: Not Given Documented by: RUBY Non-Admin Reason: No Insulin Coverage Levothyroxine Sodium (Levothyroxine Sodium 25 Mcg Tablet) 25 mcg PO DAILY@0600 [facility] Last Admin: 05/05/21 07:33 Dose: 25 mcg Documented by: SEBASTIEN Loratadine (Loratadine 10 Mg Tablet) 10 mg PO DAILY [facility] Last Admin: 05/05/21 09:08 Dose: 10 mg Documented by: RUBY Melatonin (Melatonin 3 Mg Tablet) 6 mg PO BEDTIME PRN PRN Reason: Insomnia Last Admin: 05/05/21 00:08 Dose: 6 mg Documented by: SEBASTIEN Metoprolol Succinate (Metoprolol Succinate Er 25 Mg Tab.Er.24h) 25 mg PO DAILY [facility]; Protocol Last Admin: 05/05/21 09:08 Dose: 25 mg Documented by: RUBY Montelukast Sodium (Montelukast Sodium 10 Mg Tablet) 10 mg PO BEDTIME [facility] Last Admin: 05/04/21 20:41 Dose: 10 mg Documented by: ANITRA Nifedipine (Nifedipine Er 60 Mg Tab.Er.24) 120 mg PO DAILY [facility]; Protocol Last Admin: 05/05/21 09:08 Dose: 120 mg Documented by: RUBY Omeprazole (Omeprazole 20 Mg Capsule.Dr) 20 mg PO DAILY@0630 [facility] Psyllium Hydrophilic Mucilloid (Psyllium Seed 3.4 Gm Powd.Pack) 3.4 gm PO DAILY [facility] Last Admin: 05/05/21 09:09 Dose: 3.4 gm Documented by: RUBY Senna (Sennosides 8.6 Mg Tablet) 17.2 mg PO BEDTIME PRN PRN Reason: Constipation Sodium Chloride (0.9 % Sodium Chloride Flush 3 Ml Syringe) 3 ml IVFLUSH QSHIFT [facility] Last Admin: 05/05/21 09:07 Dose: 3 ml Documented by: RUBY Tramadol HCl (Tramadol Hcl 50 Mg Tablet) 50 mg PO DAILY PRN PRN Reason: Pain (Scale Score 4-6) Last Admin: 05/04/21 03:59 Dose: 50 mg Documented by: BLAKE Vitamin D (Cholecalciferol (Vitamin D3) 25 Mcg Tablet) 25 mcg PO DAILY [facility] Last Admin: 05/05/21 09:08 Dose: 25 mcg Documented by: RUBY Labs CBC & Chem 7: 05/05/21 05:09 05/05/21 05:09 Labs: Laboratory Results - last 24 hr 05/04/21 05/04/21 05/04/21 05:17 12:06 15:25 MCV MCH MCHC RDW Plt Count MPV Absolute Nucleated RBC Nucleated RBC % (auto) Anion Gap Estim Creat Clear Calc Estimated GFR POC Glucose 113 195 H Fasting Glucose Calcium Hep Bs Antigen Negative Hep Bs Antibody NONREACTIVE Hep B Core Total Ab Nonreactive 05/04/21 05/05/21 05/05/21 19:50 05:09 05:09 MCV 93.9 MCH 30.3 MCHC 32.2 RDW 13.3 Plt Count 207 D MPV 11.2 Absolute Nucleated RBC 0.000 Nucleated RBC % (auto) 0.0 Anion Gap 19 Estim Creat Clear Calc 10.1 Estimated GFR 9 POC Glucose 199 H Fasting Glucose 154 H Calcium 6.9 L Hep Bs Antigen Hep Bs Antibody Hep B Core Total Ab 05/05/21 07:36 MCV MCH MCHC RDW Plt Count MPV Absolute Nucleated RBC Nucleated RBC % (auto) Anion Gap Estim Creat Clear Calc Estimated GFR POC Glucose 139 H Fasting Glucose Calcium Hep Bs Antigen Hep Bs Antibody Hep B Core Total Ab Microbiology Microbiology Results: Microbiology 05/04/21 03:49 Stool Culture - Preliminary Stool Normal so far. Assessment and Plan (1) Acute on chronic kidney failure: Status: Acute Assessment and Plan: 72F with CKD V approaching HD, presented with weakness, diarrhea weakness due to advanced CKD V, uremia started HD 05/04 via temp cath placed 05/03 follow up biopsy, plan for permacath monday 05/07 monitor bmp diarrhea negative cdif can use imodium prn RUE swelling likely infiltrated IV, improving will check doppler DM inuslin htn toprol nifedipine hypothyeoid synthroid paroxysmal atrial fibrillation diagnosed on last admission currently in sinus not started on eliquis due to concern for bleeding continue toprol Quality Stroke Does the patient have a stroke diagnosis?: No VTE Prior VTE?: No VTE Risk Level:: Medical - moderate - high VTE Device Contraindication: N/A - Device Ordered VTE Drug Contraindication: Treatment Not Indicated
[2021-05-05] MEDS: Acetaminophen 325 MG TABLET 650 MG PO (10:44)
[2021-05-05 16:28] LABS: INTERNATIONAL NORM RATIO 1.1 (0.9-1.1); Prothrombin Time 12.8 SEC (9.9-13.0)
[2021-05-05 16:46] LABS: Glucose, Whole Blood 210 mg/dL (60-115)
[2021-05-05] MEDS: Insulin Lispro 100 UNIT/ML 3 ML VIAL SUBCUT (17:26)
[2021-05-05] MEDS: Heparin Sodium,Porcine/1/2NS 25,000 UNIT/250 ML IV.SOLN 12.83 UNIT IVCONT (18:20)
[2021-05-05 20:38] LABS: Glucose, Whole Blood 98 mg/dL (60-115)
[2021-05-05] MEDS: Atorvastatin Calcium 40 MG TABLET PO (21:14)
[2021-05-05] MEDS: Montelukast Sodium 10 MG TABLET PO (21:14)
[2021-05-06] VITALS (14 sets, daily range): BP systolic 132–169; BP diastolic 62–93; PULSE 70–142; RESP 17–24; TEMP 36–36.3; O2SAT 83–100
--- NOTE | 2021-05-06 | ECG_ITS ---
Test Reason : AFIB Blood Pressure : / mmHG Vent. Rate : 143 BPM Atrial Rate : 166 BPM P-R Int : 000 ms QRS Dur : 088 ms QT Int : 306 ms P-R-T Axes : 000 046 252 degrees QTc Int : 472 ms Atrial fibrillation with rapid ventricular response Nonspecific T wave abnormality Abnormal ECG Atrial fibrillation has replaced Normal sinus rhythm Heart rate has increased Referred By: Korey Bender Electronically Signed By:JANIE ISAACS MD
[2021-05-06 01:38] LABS: PTT Heparin Drip 122.2 SEC (53-77.9)
[2021-05-06 03:25] LABS: Hematocrit 26.6 % (37.0-47.0); Hemoglobin 8.8 g/dl (12.0-16.0); Mean Corpuscular HGB Conc 33.1 g/dl (31.0-35.0); Mean Corpuscular Volume 93.7 fL (80.0-98.0); Mean Platelet Volume 9.7 fL (9.4-12.3); Platelet Count 265 X10*3/uL (160-400); Red Blood Count 2.84 X10*6/uL (4.20-5.50); Red Cell Distribution Width 13.6 % (11.0-16.0); White Blood Count 12.6 X10*3/uL (4.8-10.8)
[2021-05-06 03:33] LABS: INTERNATIONAL NORM RATIO 1.1 (0.9-1.1); Prothrombin Time 12.7 SEC (9.9-13.0)
[2021-05-06 03:36] LABS: PTT Heparin Drip 66.8 SEC (53-77.9)
[2021-05-06 03:43] LABS: Anion Gap 17 (12-20); Blood Urea Nitrogen 24 mg/dL (9-16); Carbon Dioxide 17 mmol/L (22-29); Chloride 101 mmol/L (96-108); Creatinine Clr Calc Pharmacy 13.1; Estimated Glomerular Filt Rate 11; Glucose Fasting 115 mg/dL (60-99); Potassium 4.2 mmol/L (3.3-5.1); Sodium 131 mmol/L (135-145)
[2021-05-06] MEDS: NIFEdipine ER 60 MG TAB.ER.24 120 MG PO (04:12)
--- NOTE | 2021-05-06 04:29 | PC.NURSE ---
Patient converted AFIB, notified. HR 130-150s, BP 150/93, analytics senior manager called, patient asymptomatic. Procardia given early per MD via tigertext. Janitorial Maintenance Worker Azeb to floor and she administered 5mg IV PUSH lopressor at 0430
[2021-05-06] MEDS: Metoprolol Tartrate 5 MG/5 ML VIAL IVPUSH (04:30)
--- NOTE | 2021-05-06 05:37 | PC.NURSE ---
PTTHD 0310 66.8 heparin drip restarted at 10u/kg/hr at 0421
--- NOTE | 2021-05-06 06:10 | PC.NURSE ---
Patient converted back to SR, heart rate in 70s. Service Center Manager and MD notified.
[2021-05-06] MEDS: Omeprazole 20 MG CAPSULE.DR PO (06:34)
[2021-05-06] MEDS: Levothyroxine Sodium 25 MCG TABLET PO (06:34)
[2021-05-06 08:07] LABS: Glucose, Whole Blood 97 mg/dL (60-115)
--- NOTE | 2021-05-06 10:16 | HO.PM.IMPN ---
Subjective Subjective Date of Service: 05/06/21 Interval History: cc: weak interval history: still very weak, rue swelling improved Physical Exam Vital Signs: Vital Signs: Last Vital Signs Temp 97.2 F 05/06/21 07:29 Pulse 84 05/06/21 07:29 Resp 17 05/06/21 07:29 BP 138/62 05/06/21 07:29 Pulse Ox 100 05/06/21 07:29 Body Mass Index 39.4 General: lethargic, ill appearing Resp:? CTA bilateral, no accessory muscles used CVS: S1,S2,RRR GI: soft, non tender, non distended Neuro:? motor grossly intact, alert Psych: appropriate affect, impaired insight? ipmroved RUE swelling Objective Data Active Medications Acetaminophen (Acetaminophen 325 Mg Tablet) 650 mg PO Q6H PRN PRN Reason: Pain, Mild (Pain Scale 1-3) Last Admin: 05/05/21 10:44 Dose: 650 mg Documented by: RUBY Albuterol/Ipratropium (Albuterol/Iprat 2.5/0.5mg 3 Ml Ampul.Neb) 3 ml INHALE RQ4H PRN PRN Reason: sob Last Admin: 05/05/21 00:31 Dose: 3 ml Documented by: AMRIK Atorvastatin Calcium (Atorvastatin Calcium 40 Mg Tablet) 40 mg PO BEDTIME MARKIE Last Admin: 05/05/21 21:14 Dose: 40 mg Documented by: KERVIN Cyanocobalamin (Cyanocobalamin (Vitamin B-12) 1,000 Mcg/Ml Vial) 1,000 mcg IM Q28D [facility] Dextrose (Dextrose 50 % 25 Gm/50 Ml Vial) 25 gm IVPUSH Q15M PRN; Protocol PRN Reason: per Hypoglycemia Standing Ord. Glucose (Glucose Gel 15 Gm Gel..Gram.) 15 gm PO Q15M PRN; Protocol PRN Reason: per Hypoglycemia Standing Ord. Heparin Sodium (Porcine) (Heparin Sodium,Porcine 5,000 Unit/Ml Vial) 3,700 unit 40 unit/kg (3700 unit) IVPUSH PROTOCOL BOLUS PRN; Protocol PRN Reason: 40 unit/kg - Heparin Protocol Heparin Sodium (Porcine) (Heparin Sodium,Porcine 5,000 Unit/Ml Vial) 7,300 unit 80 unit/kg (7300 unit) IVPUSH PROTOCOL BOLUS PRN; Protocol PRN Reason: 80 unit/kg - Heparin Protocol Heparin Sodium/Sodium Chloride () 25,000 unit in 250 mls @ 0 mls/hr IVCONT .Q0M [facility]CLUDES [facility]; Protocol Last Titration: 05/06/21 04:21 Dose: 10 units/kg/hr, 9.16 mls/hr Documented by: BRADLEY Cosigned by: SADIQ Insulin Human Lispro (Insulin Lispro 100 Unit/Ml 3 Ml Vial) 0 unit SUBCUT QIDACHS [facility]; Protocol Last Admin: 05/06/21 08:16 Dose: Not Given Documented by: RENAN Non-Admin Reason: No Insulin Coverage Levothyroxine Sodium (Levothyroxine Sodium 25 Mcg Tablet) 25 mcg PO DAILY@0600 [facility] Last Admin: 05/06/21 06:34 Dose: 25 mcg Documented by: BRADLEY Loratadine (Loratadine 10 Mg Tablet) 10 mg PO DAILY [facility] Last Admin: 05/05/21 09:08 Dose: 10 mg Documented by: RUBY Melatonin (Melatonin 3 Mg Tablet) 6 mg PO BEDTIME PRN PRN Reason: Insomnia Last Admin: 05/05/21 00:08 Dose: 6 mg Documented by: SEBASTIEN Metoprolol Succinate (Metoprolol Succinate Er 25 Mg Tab.Er.24h) 25 mg PO DAILY [facility]; Protocol Last Admin: 05/05/21 09:08 Dose: 25 mg Documented by: RUBY Montelukast Sodium (Montelukast Sodium 10 Mg Tablet) 10 mg PO BEDTIME [facility] Last Admin: 05/05/21 21:14 Dose: 10 mg Documented by: KERVIN Nifedipine (Nifedipine Er 60 Mg Tab.Er.24) 120 mg PO DAILY [facility]; Protocol Last Admin: 05/06/21 04:12 Dose: 120 mg Documented by: BRADLEY Omeprazole (Omeprazole 20 Mg Capsule.Dr) 20 mg PO DAILY@0630 [facility] Last Admin: 05/06/21 06:34 Dose: 20 mg Documented by: BRADLEY Psyllium Hydrophilic Mucilloid (Psyllium Seed 3.4 Gm Powd.Pack) 3.4 gm PO DAILY [facility] Last Admin: 05/05/21 09:09 Dose: 3.4 gm Documented by: RUBY Senna (Sennosides 8.6 Mg Tablet) 17.2 mg PO BEDTIME PRN PRN Reason: Constipation Sodium Chloride (0.9 % Sodium Chloride Flush 3 Ml Syringe) 3 ml IVFLUSH QSHIFT [facility] Last Admin: 05/05/21 23:52 Dose: Not Given Documented by: BRADLEY Non-Admin Reason: IV Running Tramadol HCl (Tramadol Hcl 50 Mg Tablet) 50 mg PO DAILY PRN PRN Reason: Pain (Scale Score 4-6) Last Admin: 05/04/21 03:59 Dose: 50 mg Documented by: BLAKE Vitamin D (Cholecalciferol (Vitamin D3) 25 Mcg Tablet) 25 mcg PO DAILY [facility] Last Admin: 05/05/21 09:08 Dose: 25 mcg Documented by: RUBY Labs CBC & Chem 7: 05/06/21 03:10 05/06/21 03:11 Labs: Laboratory Results - last 24 hr 05/05/21 05/05/21 05/05/21 16:15 16:28 20:28 MCV MCH MCHC RDW Plt Count MPV Absolute Nucleated RBC Nucleated RBC % (auto) PT 12.8 INR 1.1 PTT (Heparin Protocol) 38.0 L Anion Gap Estim Creat Clear Calc Estimated GFR POC Glucose 210 H 98 Fasting Glucose Calcium 05/06/21 05/06/21 05/06/21 00:38 03:10 03:10 MCV 93.7 MCH 31.0 MCHC 33.1 RDW 13.6 Plt Count 265 D MPV 9.7 Absolute Nucleated RBC 0.000 Nucleated RBC % (auto) 0.0 PT 12.7 INR 1.1 PTT (Heparin Protocol) 122.2 H* D 66.8 D Anion Gap Estim Creat Clear Calc Estimated GFR POC Glucose Fasting Glucose Calcium 05/06/21 05/06/21 03:11 07:27 MCV MCH MCHC RDW Plt Count MPV Absolute Nucleated RBC Nucleated RBC % (auto) PT INR PTT (Heparin Protocol) Anion Gap 17 Estim Creat Clear Calc 13.1 Estimated GFR 11 POC Glucose 97 Fasting Glucose 115 H Calcium 7.0 L Microbiology Microbiology Results: Microbiology 05/04/21 03:49 Stool Culture - Preliminary Stool Normal so far. Assessment and Plan (1) Acute on chronic kidney failure: Status: Acute Assessment and Plan: 72F with CKD V approaching HD, presented with weakness, diarrhea weakness due to advanced CKD V, uremia started HD 05/04 via temp cath placed 05/03 follow up biopsy, plan for permacath monday 05/07 monitor bmp weakness improving RUE swelling small right basilic vein thrombosis. will treat with iv heparin for now as planning permacath, upholstery tech anticoagulation to be determined DM inuslin htn toprol nifedipine hypothyeoid synthroid paroxysmal atrial fibrillation diagnosed on last admission currently in sinus not started on eliquis due to concern for bleeding, on iv heparin now for RUE thrombus continue toprol Quality Stroke Does the patient have a stroke diagnosis?: No VTE Prior VTE?: No VTE Risk Level:: Medical - moderate - high VTE Device Contraindication: N/A - Device Ordered VTE Drug Contraindication: Treatment Not Indicated
[2021-05-06 10:49] LABS: PTT Heparin Drip 96.8 SEC (53-77.9)
[2021-05-06] MEDS: Metoprolol Succinate ER 25 MG TAB.ER.24H PO (10:49)
[2021-05-06] MEDS: Cholecalciferol (Vitamin D3) 25 MCG TABLET PO (10:49)
[2021-05-06] MEDS: Loratadine 10 MG TABLET PO (10:49)
[2021-05-06] MEDS: 0.9 % Sodium Chloride Flush 3 ML SYRINGE IVFLUSH ×3 (10:50→20:45)
[2021-05-06] MEDS: Insulin Lispro 100 UNIT/ML 3 ML VIAL SUBCUT (11:31)
[2021-05-06 11:34] LABS: Glucose, Whole Blood 151 mg/dL (60-115)
--- NOTE | 2021-05-06 12:32 | MHC.CM.PN ---
NO DISCHARGED PLAN EXPECTED TODAY OR TOMORROW. PATIENT IS NEW TO DIALYSIS CASE MANAGEMENT FOLLOWING
--- NOTE | 2021-05-06 15:02 | PM.PNNEP ---
Subjective Subjective Date of Service: 05/06/21 Interval history: cc: weak interval history: still very weak, rue swelling improved short of breath orthopnea Physical Exam Vital Signs: Vital Signs: Last Vital Signs Temp 96.9 F 05/06/21 11:44 Pulse 89 05/06/21 11:44 Resp 18 05/06/21 11:44 BP 158/70 H 05/06/21 11:44 Pulse Ox 98 05/06/21 11:44 Body Mass Index 39.4 Const: General: cooperative, comfortable and other (appears dyspneic) Nutritional Appearance: obese Orientation/consciousness: patient oriented x3 HENMT: Head: Yes normal to inspection Face and sinus: Yes normal facial exam Mouth: Normal oral and palatal mucosa present Neck: Neck: Yes normal visual inspection, Yes full ROM, Yes trachea midline, Yes supple and Yes no JVD Chest: Chest palpation & inspection: normal inspection of the chest Resp: Effort & Inspection: normal respiratory effort Auscultation: rales, rhonchi and diminished lung sounds Cardio: Jugular venous distension: no JVD Palpation: no palpable S3 Rate: regular rate Rhythm: regular rhythm Heart sounds: no murmurs and no rubs GI: Inspection: Yes normal to inspection Palpation (GI): Soft to palpation, not firm, nontender and no guarding Auscultation: normal bowel sounds Skin: General skin exam: no rashes or lesions noted Neuro: General: patient oriented x3 Motor exam (neuro): no asterixis Extrem: Right upper extremity: edema Objective Data Labs CBC & Chem 7: 05/06/21 03:10 05/06/21 03:11 Labs: Laboratory Results - last 24 hr 05/05/21 05/05/21 05/05/21 16:15 16:28 20:28 WBC RBC Hgb Hct MCV MCH MCHC RDW Plt Count MPV Absolute Nucleated RBC Nucleated RBC % (auto) PT 12.8 INR 1.1 PTT (Heparin Protocol) 38.0 L Sodium Potassium Chloride Carbon Dioxide Anion Gap BUN Creatinine Estim Creat Clear Calc Estimated GFR POC Glucose 210 H 98 Fasting Glucose Calcium 05/06/21 05/06/21 05/06/21 00:38 03:10 03:10 WBC 12.6 H RBC 2.84 L Hgb 8.8 L Hct 26.6 L MCV 93.7 MCH 31.0 MCHC 33.1 RDW 13.6 Plt Count 265 D MPV 9.7 Absolute Nucleated RBC 0.000 Nucleated RBC % (auto) 0.0 PT 12.7 INR 1.1 PTT (Heparin Protocol) 122.2 H* D 66.8 D Sodium Potassium Chloride Carbon Dioxide Anion Gap BUN Creatinine Estim Creat Clear Calc Estimated GFR POC Glucose Fasting Glucose Calcium 05/06/21 05/06/21 05/06/21 03:11 07:27 10:16 WBC RBC Hgb Hct MCV MCH MCHC RDW Plt Count MPV Absolute Nucleated RBC Nucleated RBC % (auto) PT INR PTT (Heparin Protocol) 96.8 H D Sodium 131 L Potassium 4.2 Chloride 101 Carbon Dioxide 17 L Anion Gap 17 BUN 24 H Creatinine 3.85 H Estim Creat Clear Calc 13.1 Estimated GFR 11 POC Glucose 97 Fasting Glucose 115 H Calcium 7.0 L 05/06/21 11:16 WBC RBC Hgb Hct MCV MCH MCHC RDW Plt Count MPV Absolute Nucleated RBC Nucleated RBC % (auto) PT INR PTT (Heparin Protocol) Sodium Potassium Chloride Carbon Dioxide Anion Gap BUN Creatinine Estim Creat Clear Calc Estimated GFR POC Glucose 151 H Fasting Glucose Calcium Microbiology Microbiology Results: Microbiology 05/04/21 03:49 Stool Stool Culture - Preliminary Normal so far. Procedures Date of Service Date of Service: 05/06/21 Assessment & Plan Assessment and plan (1) Acute on chronic kidney failure: Status: Acute (2) Pleural effusion on left: Status: Acute (3) Chronic kidney disease, stage V: Status: Acute (4) Nephrotic range proteinuria: Status: Acute (5) Metabolic acidosis: Status: Acute Assessment and Plan: 72F with CKD V approaching HD, presented with weakness, diarrhea weakness due to advanced CKD V, uremia, volume overload started HD 05/04 via temp cath placed 05/03 follow up biopsy, plan for permacath monday 05/07 monitor bmp weakness improving Pt is SOB; has L pleural effusion on CXR and exam Will need aggressive UF tomorrow with dialysis and/or thoracentesis Plan for permcath placement tomorrow and dialysis after thatl Time Spent With Patient Time: Total time spent is greater than 50% in coordination of care (as documented) at patient's floor/unit and/or counseling patient: Progress Note: Quality Stroke Does the patient have a stroke diagnosis?: No
[2021-05-06] MEDS: Albuterol/Iprat 2.5/0.5MG 3 ML AMPUL.NEB INHALE (15:59)
[2021-05-06] MEDS: traMADoL HCL 50 MG TABLET PO (16:36)
[2021-05-06 16:38] LABS: Glucose, Whole Blood 103 mg/dL (60-115)
[2021-05-06 17:37] LABS: PTT Heparin Drip 67.8 SEC (53-77.9)
[2021-05-06 20:18] LABS: Glucose, Whole Blood 147 mg/dL (60-115)
[2021-05-06] MEDS: Atorvastatin Calcium 40 MG TABLET PO (20:45)
[2021-05-06] MEDS: Acetaminophen 325 MG TABLET 650 MG PO (20:45)
[2021-05-06] MEDS: Montelukast Sodium 10 MG TABLET PO (20:45)
[2021-05-06 23:46] LABS: PTT Heparin Drip 61.1 SEC (53-77.9)
[2021-05-07] VITALS (12 sets, daily range): BP systolic 111–145; BP diastolic 67–86; PULSE 74–144; RESP 20–24; TEMP 36–37.1; O2SAT 85–99
--- NOTE | 2021-05-07 | ECG_ITS ---
Test Reason : chest pain Blood Pressure : / mmHG Vent. Rate : 142 BPM Atrial Rate : 144 BPM P-R Int : 152 ms QRS Dur : 080 ms QT Int : 304 ms P-R-T Axes : 000 047 -63 degrees QTc Int : 467 ms Atrial fibrillation Nonspecific T wave abnormality Abnormal ECG When compared with ECG of 06-MAY-2021 05:17, No significant change was found Referred By: Korey Bender Electronically Signed By:JANIE ISAACS MD
[2021-05-07] MEDS: Melatonin 3 MG TABLET 6 MG PO (00:51)
[2021-05-07] MEDS: Morphine Sulfate 2 MG/ML CARTRIDGE 0.5 MG IVPUSH (01:20)
--- NOTE | 2021-05-07 01:32 | PC.NURSE ---
at 1:00 am pt started to complain of chest pain with moaning. Pain was reproducible with touch. Bp taken at the time was 132/67 with a pulse of 74, WNL. MD was notified. EKG was ordered, it showed normal sinus. Morphine 0.5 was ordered for the pain. Med was administered. Troponins were ordered as well.
[2021-05-07 01:56] LABS: Troponin-I High Sensitivity 24.1 ng/L (<3.5-17.0)
[2021-05-07] MEDS: Heparin Sodium,Porcine/1/2NS 25,000 UNIT/250 ML IV.SOLN 6.41 UNIT IVCONT (02:25)
[2021-05-07] MEDS: ondansetron HCL 4 MG/2 ML VIAL IVPUSH (02:42)
[2021-05-07] MEDS: Famotidine/PF 20 MG/2 ML VIAL IVPUSH (02:42)
[2021-05-07 06:10] LABS: Hematocrit 28.1 % (37.0-47.0); Mean Corpuscular Volume 93.7 fL (80.0-98.0); Mean Platelet Volume 9.7 fL (9.4-12.3); Platelet Count 322 X10*3/uL (160-400); Red Cell Distribution Width 13.5 % (11.0-16.0); White Blood Count 17.3 X10*3/uL (4.8-10.8)
[2021-05-07] MEDS: Omeprazole 20 MG CAPSULE.DR PO (06:15)
[2021-05-07] MEDS: Levothyroxine Sodium 25 MCG TABLET PO (06:15)
[2021-05-07] MEDS: Metoprolol Succinate ER 25 MG TAB.ER.24H PO (06:34)
[2021-05-07] MEDS: NIFEdipine ER 60 MG TAB.ER.24 120 MG PO (06:34)
[2021-05-07 06:48] LABS: Anion Gap 18 (12-20); Blood Urea Nitrogen 29 mg/dL (9-16); Calcium 6.8 mg/dL (8.4-10.2); Carbon Dioxide 18 mmol/L (22-29); Chloride 97 mmol/L (96-108); Creatinine Clr Calc Pharmacy 11.2; Estimated Glomerular Filt Rate 10; Glucose Fasting 178 mg/dL (60-99); Potassium 4.2 mmol/L (3.3-5.1); Sodium 129 mmol/L (135-145); Troponin-I High Sensitivity 22.4 ng/L (<3.5-17.0)
--- NOTE | 2021-05-07 06:51 | PC.NURSE ---
pt had a high Hr of 140 around 6 am. MD was notified. AM heart meds metoprolol and procardia were given early
[2021-05-07 07:50] LABS: Glucose, Whole Blood 166 mg/dL (60-115)
[2021-05-07] MEDS: Cholecalciferol (Vitamin D3) 25 MCG TABLET PO (08:22)
[2021-05-07] MEDS: Loratadine 10 MG TABLET PO (08:22)
[2021-05-07] MEDS: Insulin Lispro 100 UNIT/ML 3 ML VIAL SUBCUT (08:26)
[2021-05-07 08:29] LABS: PTT Heparin Drip 59.8 SEC (53-77.9)
--- NOTE | 2021-05-07 08:59 | P.PNIM_ITS ---
Subjective Subjective Date of Service: 05/07/21 Interval History: ?cc: weak interval history: still very weak, rue swelling Cardiovascular Cardiovascular: Reports no additional cardiovascular complaints Respiratory Respiratory: Reports no additional respiratory complaints Physical Exam Vital Signs: Vital Signs: Last Vital Signs Temp 97.3 F 05/07/21 07:37 Pulse 142 H 05/07/21 07:37 Resp 20 05/07/21 07:37 BP 111/73 05/07/21 07:37 Pulse Ox 99 05/07/21 07:37 Body Mass Index 39.4 General: lethargic, ill appearing Resp:? CTA bilateral, no accessory muscles used CVS: S1,S2,RRR GI: soft, non tender, non distended Neuro:? motor grossly intact, alert Psych: appropriate affect, impaired insight? RUE swelling Objective Data Active Medications Acetaminophen (Acetaminophen 325 Mg Tablet) 650 mg PO Q6H PRN PRN Reason: Pain, Mild (Pain Scale 1-3) Last Admin: 05/06/21 20:45 Dose: 650 mg Documented by: SADIQ Albuterol/Ipratropium (Albuterol/Iprat 2.5/0.5mg 3 Ml Ampul.Neb) 3 ml INHALE RQ4H PRN PRN Reason: sob Last Admin: 05/06/21 15:59 Dose: 3 ml Documented by: AALIYAH Atorvastatin Calcium (Atorvastatin Calcium 40 Mg Tablet) 40 mg PO BEDTIME MARKIE Last Admin: 05/06/21 20:45 Dose: 40 mg Documented by: SADIQ Cyanocobalamin (Cyanocobalamin (Vitamin B-12) 1,000 Mcg/Ml Vial) 1,000 mcg IM Q28D [facility] Dextrose (Dextrose 50 % 25 Gm/50 Ml Vial) 25 gm IVPUSH Q15M PRN; Protocol PRN Reason: per Hypoglycemia Standing Ord. Glucose (Glucose Gel 15 Gm Gel..Gram.) 15 gm PO Q15M PRN; Protocol PRN Reason: per Hypoglycemia Standing Ord. Heparin Sodium (Porcine) (Heparin Sodium,Porcine 5,000 Unit/Ml Vial) 3,700 unit 40 unit/kg (3700 unit) IVPUSH PROTOCOL BOLUS PRN; Protocol PRN Reason: 40 unit/kg - Heparin Protocol Heparin Sodium (Porcine) (Heparin Sodium,Porcine 5,000 Unit/Ml Vial) 7,300 unit 80 unit/kg (7300 unit) IVPUSH PROTOCOL BOLUS PRN; Protocol PRN Reason: 80 unit/kg - Heparin Protocol Heparin Sodium/Sodium Chloride () 25,000 unit in 250 mls @ 0 mls/hr IVCONT .Q0M [facility]; Protocol Last Admin: 05/07/21 02:25 Dose: 7 units/kg/hr, 6.41 mls/hr Documented by: SADIQ Cosigned by: MISHA Insulin Human Lispro (Insulin Lispro 100 Unit/Ml 3 Ml Vial) 0 unit SUBCUT QIDACHS [facility]; Protocol Last Admin: 05/07/21 08:26 Dose: 2 unit Documented by: ALISSON Levothyroxine Sodium (Levothyroxine Sodium 25 Mcg Tablet) 25 mcg PO DAILY@0600 [facility] Last Admin: 05/07/21 06:15 Dose: 25 mcg Documented by: SADIQ Loratadine (Loratadine 10 Mg Tablet) 10 mg PO DAILY [facility] Last Admin: 05/07/21 08:22 Dose: 10 mg Documented by: ALISSON Melatonin (Melatonin 3 Mg Tablet) 6 mg PO BEDTIME PRN PRN Reason: Insomnia Last Admin: 05/07/21 00:51 Dose: 6 mg Documented by: SADIQ Metoprolol Tartrate (Metoprolol Tartrate 25 Mg Tablet) 25 mg PO QID [facility]; Protocol Montelukast Sodium (Montelukast Sodium 10 Mg Tablet) 10 mg PO BEDTIME [facility] Last Admin: 05/06/21 20:45 Dose: 10 mg Documented by: SADIQ Nitroglycerin (Nitroglycerin 0.4 Mg Tab.Subl) 0.4 mg SUBLINGUAL Q5MX3 PRN PRN Reason: chest Omeprazole (Omeprazole 20 Mg Capsule.Dr) 20 mg PO DAILY@0630 [facility] Last Admin: 05/07/21 06:15 Dose: 20 mg Documented by: SADIQ Psyllium Hydrophilic Mucilloid (Psyllium Seed 3.4 Gm Powd.Pack) 3.4 gm PO DAILY [facility] Last Admin: 05/07/21 08:26 Dose: Not Given Documented by: ALISSON Non-Admin Reason: NPO Senna (Sennosides 8.6 Mg Tablet) 17.2 mg PO BEDTIME PRN PRN Reason: Constipation Sodium Chloride (0.9 % Sodium Chloride Flush 3 Ml Syringe) 3 ml IVFLUSH QSHIFT [facility] Last Admin: 05/07/21 08:26 Dose: Not Given Documented by: ALISSON Non-Admin Reason: IV Running Tramadol HCl (Tramadol Hcl 50 Mg Tablet) 50 mg PO DAILY PRN PRN Reason: Pain (Scale Score 4-6) Last Admin: 05/06/21 16:36 Dose: 50 mg Documented by: RENAN Vitamin D (Cholecalciferol (Vitamin D3) 25 Mcg Tablet) 25 mcg PO DAILY [facility] Last Admin: 05/07/21 08:22 Dose: 25 mcg Documented by: ALISSON Labs CBC & Chem 7: 05/07/21 05:23 05/07/21 05:23 Labs: Laboratory Results - last 24 hr 05/06/21 05/06/21 05/06/21 10:16 11:16 16:28 MCV MCH MCHC RDW Plt Count MPV Absolute Nucleated RBC Nucleated RBC % (auto) PTT (Heparin Protocol) 96.8 H D Anion Gap Estim Creat Clear Calc Estimated GFR POC Glucose 151 H 103 Fasting Glucose Calcium Troponin I High Sens 05/06/21 05/06/21 05/06/21 17:18 20:06 23:18 MCV MCH MCHC RDW Plt Count MPV Absolute Nucleated RBC Nucleated RBC % (auto) PTT (Heparin Protocol) 67.8 D 61.1 Anion Gap Estim Creat Clear Calc Estimated GFR POC Glucose 147 H Fasting Glucose Calcium Troponin I High Sens 05/07/21 05/07/21 05/07/21 01:17 05:23 05:23 MCV 93.7 MCH 30.0 MCHC 32.0 RDW 13.5 Plt Count 322 MPV 9.7 Absolute Nucleated RBC 0.000 Nucleated RBC % (auto) 0.0 PTT (Heparin Protocol) Anion Gap 18 Estim Creat Clear Calc 11.2 Estimated GFR 10 POC Glucose Fasting Glucose 178 H Calcium 6.8 L Troponin I High Sens 24.1 H* D 05/07/21 05/07/21 05/07/21 05:23 07:44 08:15 MCV MCH MCHC RDW Plt Count MPV Absolute Nucleated RBC Nucleated RBC % (auto) PTT (Heparin Protocol) 59.8 Anion Gap Estim Creat Clear Calc Estimated GFR POC Glucose 166 H Fasting Glucose Calcium Troponin I High Sens 22.4 H* Microbiology Microbiology Results: Microbiology 05/04/21 03:49 Stool Culture - Final Stool Assessment and Plan (1) Acute on chronic kidney failure: Status: Acute Assessment and Plan: 72F with CKD V approaching HD, presented with weakness, diarrhea weakness due to advanced CKD V, uremia started HD 05/04 via temp cath placed 05/03 follow up biopsy, plan for possible permacath today 05/07 monitor bmp weakness improving RUE swelling small right basilic vein thrombosis. will treat with iv heparin for now as planning permacath, care home anticoagulation to be determined DM inuslin htn toprol changed to lopressor hold nifedipine to allow for meds for rate control hypothyroid synthroid paroxysmal atrial fibrillation diagnosed on last admission, now with RVR hold toprol, will start lopressor 25mg q6h not started on eliquis due to concern for bleeding, on iv heparin now for RUE thrombus Quality Stroke Does the patient have a stroke diagnosis?: No VTE Prior VTE?: No VTE Risk Level:: Medical - moderate - high VTE Device Contraindication: N/A - Device Ordered VTE Drug Contraindication: Treatment Not Indicated
[2021-05-07] MEDS: Metoprolol Tartrate 25 MG TABLET PO ×3 (09:28→20:18)
--- NOTE | 2021-05-07 09:54 | MHC.CM.PN ---
nurse career guidance counselor note electronic medical record reviewed per documentation patient admitted with acute on chronic renal failure,weakness ,diarrhea on 05/04 had temporary hemodialysis catheter placed and plan for possible permanent placement on 05/07/21 , positive for small right basilic vein thrombosis paf, now with rvr AND HOLD TOPROL, STARTING LOPRESSOR, CONTINUES ON IV HEPARIN (RIGHT BASILIC THROMBUS) WITH PLANS TO CHANGE TO ELIQUIS DISCHARGE PLAN WILL START NEW OUTPATIENT HEMODIALYSIS TO BE SET UP BUY RENAL PHYSICIANS, [facility] IN [place]- PATIENT SPEAKS [place] ONLY NEW [facility] FOR CHRONIC DISEASE MANAGEMENT MAY NEED HOME OXYGEN OXYGEN AT DISCHARGE TRANSPORTATION [facility] PROX[facility] ON FILE
--- NOTE | 2021-05-07 10:55 | PM.PNNEP ---
Subjective Subjective Date of Service: 05/07/21 Interval history: Seen AM. Tired, Tachypneic with Orthopnea. Continues to have arm swelling. Has been initiated on HD Physical Exam Vital Signs: Vital Signs: Last Vital Signs Temp 97.3 F 05/07/21 07:37 Pulse 143 H 05/07/21 10:39 Resp 20 05/07/21 07:37 BP 143/78 H 05/07/21 10:39 Pulse Ox 92 05/07/21 09:42 Body Mass Index 39.4 Const: General: ill appearing Eyes: EOM: EOMs intact bilaterally Resp: Auscultation: diminished lung sounds Cardio: Rate: regular rate GI: Palpation (GI): Soft to palpation Neuro: General: moves all extremities Objective Data Labs CBC & Chem 7: 05/07/21 05:23 05/07/21 05:23 Labs: Laboratory Results - last 24 hr 05/06/21 05/06/21 05/06/21 11:16 16:28 17:18 WBC RBC Hgb Hct MCV MCH MCHC RDW Plt Count MPV Absolute Nucleated RBC Nucleated RBC % (auto) PTT (Heparin Protocol) 67.8 D Sodium Potassium Chloride Carbon Dioxide Anion Gap BUN Creatinine Estim Creat Clear Calc Estimated GFR POC Glucose 151 H 103 Fasting Glucose Calcium Troponin I High Sens 05/06/21 05/06/21 05/07/21 20:06 23:18 01:17 WBC RBC Hgb Hct MCV MCH MCHC RDW Plt Count MPV Absolute Nucleated RBC Nucleated RBC % (auto) PTT (Heparin Protocol) 61.1 Sodium Potassium Chloride Carbon Dioxide Anion Gap BUN Creatinine Estim Creat Clear Calc Estimated GFR POC Glucose 147 H Fasting Glucose Calcium Troponin I High Sens 24.1 H* D 05/07/21 05/07/21 05/07/21 05:23 05:23 05:23 WBC 17.3 H RBC 3.00 L Hgb 9.0 L Hct 28.1 L MCV 93.7 MCH 30.0 MCHC 32.0 RDW 13.5 Plt Count 322 MPV 9.7 Absolute Nucleated RBC 0.000 Nucleated RBC % (auto) 0.0 PTT (Heparin Protocol) Sodium 129 L Potassium 4.2 Chloride 97 Carbon Dioxide 18 L Anion Gap 18 BUN 29 H Creatinine 4.48 H* Estim Creat Clear Calc 11.2 Estimated GFR 10 POC Glucose Fasting Glucose 178 H Calcium 6.8 L Troponin I High Sens 22.4 H* 05/07/21 05/07/21 07:44 08:15 WBC RBC Hgb Hct MCV MCH MCHC RDW Plt Count MPV Absolute Nucleated RBC Nucleated RBC % (auto) PTT (Heparin Protocol) 59.8 Sodium Potassium Chloride Carbon Dioxide Anion Gap BUN Creatinine Estim Creat Clear Calc Estimated GFR POC Glucose 166 H Fasting Glucose Calcium Troponin I High Sens Microbiology Microbiology Results: Microbiology 05/04/21 03:49 Stool Stool Culture - Final Procedures Date of Service Date of Service: 05/07/21 Assessment & Plan Assessment and plan (1) Acute on chronic kidney failure: Status: Acute Assessment and Plan: 72F with CKD V approaching HD, presented with weakness, diarrhea due to advanced CKD V, uremia, volume overload started HD 05/04 via temp cath placed 05/03 follow up biopsy; Will UF today and plan for permacatfriday Pt is SOB; has L pleural effusion on CXR and exam;Needs to R/O PE Can have CTA; Needs pl effusion drained if CTA shows significant effusion Will UF and do HD today Time Spent With Patient Time: Total time spent is greater than 50% in coordination of care (as documented) at patient's floor/unit and/or counseling patient: Progress Note: Quality Stroke Does the patient have a stroke diagnosis?: No
[2021-05-07 11:20] LABS: Glucose, Whole Blood 125 mg/dL (60-115)
--- NOTE | 2021-05-07 13:34 | PC.NURSE ---
Transfer from [place] [id number] at 1130. Transported via stretcher with nursing aid. Patient alert and oriented x 3, coding and reimbursement specialist at bedside. Patient c/o SOB, RR 24. on 1L NC 02Sat 95%. Mild increased work of breathing noted. HR 140s-150s, EKG- sinus tach. Patient denies any chest discomfort at this time. MD aware. Cardiology consult pending. Very poor IV access for ordered CTA, multiple IV insertions attempted. MD notified. new urgent order for midline to be placed. At this time patient is in dialysis, HR still 140s-150s, moaning denies any chest pain. c/o being thirsty .
--- NOTE | 2021-05-07 15:20 | P.CONCA_ITS ---
History of Present Illness History of Present Illness Date of Service: 05/07/21 Requesting physician: Johann Lopez Chief complaint: Afib Narrative: Pleasant 75-year-old female who has background history of chronic kidney disease and was recently seen in end of March when she presented with AFib with RVR. She also had recent pneumonia treatment at that time. She was noticed to be anemic and due to anemia anticoagulation was not started as she required some workup. She is now presenting with weakness and diarrhea and has been noticed to have acute kidney injury with uremia. She is status post hemodialysis which was started on May 04. She was seen on hemodialysis and was in a lot of left flank pain and back pain. Telemetry has shown atrial flutter and atrial fibrillation with rapid ventricular response. She is denying any palpitations. She has distressed due to pain. [facility] Past Medical History Medical History Arthritis Benign essential hypertension Chronic kidney disease, stage V GERD (gastroesophageal reflux disease) Hypothyroidism Paroxysmal atrial fibrillation Pure hypercholesterolemia Toe amputee Type 2 diabetes mellitus Surgical History Surgical History Hx of appendectomy Social History Social History Household Members: None Household Members Other:: self, son lives close by Housing: House Do you presently have visiting nurse or other home services: No Alcohol intake: never Patient Tobacco Use Status: Never used Tobacco Tobacco use type: Cigarette e-Cigarette/Vaping Use: Never Used Second Hand Smoke Exposure: No service: No Current occupational status: retired Meds Allergies Allergy/AdvReac Type Severity Reaction Status Date / Time No Known Allergies Allergy Verified 04/26/21 10:46 Active Medications: Current Medications Acetaminophen (Acetaminophen 325 Mg Tablet) 650 mg PO Q6H PRN PRN Reason: Pain, Mild (Pain Scale 1-3) Last Admin: 05/06/21 20:45 Dose: 650 mg Documented by: Albuterol/Ipratropium (Albuterol/Iprat 2.5/0.5mg 3 Ml Ampul.Neb) 3 ml INHALE RQ4H PRN PRN Reason: sob Last Admin: 05/06/21 15:59 Dose: 3 ml Documented by: Atorvastatin Calcium (Atorvastatin Calcium 40 Mg Tablet) 40 mg PO BEDTIME [facility] Last Admin: 05/06/21 20:45 Dose: 40 mg Documented by: Cyanocobalamin (Cyanocobalamin (Vitamin B-12) 1,000 Mcg/Ml Vial) 1,000 mcg IM Q28D [facility] Dextrose (Dextrose 50 % 25 Gm/50 Ml Vial) 25 gm IVPUSH Q15M PRN; Protocol PRN Reason: per Hypoglycemia Standing Ord. Glucose (Glucose Gel 15 Gm Gel..Gram.) 15 gm PO Q15M PRN; Protocol PRN Reason: per Hypoglycemia Standing Ord. Heparin Sodium (Porcine) (Heparin Sodium,Porcine 5,000 Unit/Ml Vial) 3,700 unit 40 unit/kg (3700 unit) IVPUSH PROTOCOL BOLUS PRN; Protocol PRN Reason: 40 unit/kg - Heparin Protocol Heparin Sodium (Porcine) (Heparin Sodium,Porcine 5,000 Unit/Ml Vial) 7,300 unit 80 unit/kg (7300 unit) IVPUSH PROTOCOL BOLUS PRN; Protocol PRN Reason: 80 unit/kg - Heparin Protocol Heparin Sodium/Sodium Chloride () 25,000 unit in 250 mls @ 0 mls/hr IVCONT .Q0M [facility]; Protocol Last Admin: 05/07/21 02:25 Dose: 7 units/kg/hr, 6.41 mls/hr Documented by: Insulin Human Lispro (Insulin Lispro 100 Unit/Ml 3 Ml Vial) 0 unit SUBCUT QIDACHS [facility]; Protocol Last Admin: 05/07/21 11:18 Dose: Not Given Documented by: Levothyroxine Sodium (Levothyroxine Sodium 25 Mcg Tablet) 25 mcg PO DAILY@0600 [facility] Last Admin: 05/07/21 06:15 Dose: 25 mcg Documented by: Loratadine (Loratadine 10 Mg Tablet) 10 mg PO DAILY [facility] Last Admin: 05/07/21 08:22 Dose: 10 mg Documented by: Melatonin (Melatonin 3 Mg Tablet) 6 mg PO BEDTIME PRN PRN Reason: Insomnia Last Admin: 05/07/21 00:51 Dose: 6 mg Documented by: Metoprolol Tartrate (Metoprolol Tartrate 25 Mg Tablet) 25 mg PO QID [facility]; Protocol Last Admin: 05/07/21 09:28 Dose: 25 mg Documented by: Montelukast Sodium (Montelukast Sodium 10 Mg Tablet) 10 mg PO BEDTIME [facility] Last Admin: 05/06/21 20:45 Dose: 10 mg Documented by: Nitroglycerin (Nitroglycerin 0.4 Mg Tab.Subl) 0.4 mg SUBLINGUAL Q5MX3 PRN PRN Reason: chest Omeprazole (Omeprazole 20 Mg Capsule.Dr) 20 mg PO DAILY@0630 [facility] Last Admin: 05/07/21 06:15 Dose: 20 mg Documented by: Psyllium Hydrophilic Mucilloid (Psyllium Seed 3.4 Gm Powd.Pack) 3.4 gm PO DAILY [facility] Last Admin: 05/07/21 08:26 Dose: Not Given Documented by: Senna (Sennosides 8.6 Mg Tablet) 17.2 mg PO BEDTIME PRN PRN Reason: Constipation Sodium Chloride (0.9 % Sodium Chloride Flush 3 Ml Syringe) 3 ml IVFLUSH QSHIFT [facility] Last Admin: 05/07/21 08:26 Dose: Not Given Documented by: Tramadol HCl (Tramadol Hcl 50 Mg Tablet) 50 mg PO DAILY PRN PRN Reason: Pain (Scale Score 4-6) Last Admin: 05/06/21 16:36 Dose: 50 mg Documented by: Vitamin D (Cholecalciferol (Vitamin D3) 25 Mcg Tablet) 25 mcg PO DAILY [facility] Last Admin: 05/07/21 08:22 Dose: 25 mcg Documented by: Home Medications Medication Instructions Recorded Confirmed Last Taken Type cyanocobalamin (vitamin B-12) 1,000 mcg IM Q28D 04/14/21 05/02/21 04/14/21 History 1,000 mcg/mL injection solution cefuroxime axetil 250 mg tablet 250 mg PO BID tab 04/26/21 05/02/21 05/02/21 History tramadol 50 mg tablet 1 tab PO DAILY PRN 05/02/21 05/02/21 Unknown History Physical Exam Vital Signs: Vital Signs: Last Vital Signs Temp 97.0 F 05/07/21 11:45 Pulse 143 H 05/07/21 11:45 Resp 24 H 05/07/21 11:45 BP 145/75 H 05/07/21 11:45 Pulse Ox 97 05/07/21 11:45 Body Mass Index 39.4 GENERAL APPEARANCE: Patient was seen on hemodialysis. She was in a lot of pain due to left-sided flank and back pain. NECK: no jugular venous distention. SKIN: no suspicious lesions, warm and dry. HEART: no murmurs, irregular rate and rhythm. Tachycardia. LUNGS: clear to auscultation bilaterally. ABDOMEN: soft, nontender. EXTREMITIES: no edema. PERIPHERAL PULSES: equal. NEUROLOGIC: No gross deficits, AAO X 3 Objective Labs and Meds Result diagrams: 05/07/21 05:23 05/07/21 05:23 Lab results: Laboratory Results - last 24 hr 05/06/21 05/06/21 05/06/21 16:28 17:18 20:06 WBC RBC Hgb Hct MCV MCH MCHC RDW Plt Count MPV Absolute Nucleated RBC Nucleated RBC % (auto) PTT (Heparin Protocol) 67.8 D Sodium Potassium Chloride Carbon Dioxide Anion Gap BUN Creatinine Estim Creat Clear Calc Estimated GFR POC Glucose 103 147 H Fasting Glucose Calcium Troponin I High Sens 05/06/21 05/07/21 05/07/21 23:18 01:17 05:23 WBC 17.3 H RBC 3.00 L Hgb 9.0 L Hct 28.1 L MCV 93.7 MCH 30.0 MCHC 32.0 RDW 13.5 Plt Count 322 MPV 9.7 Absolute Nucleated RBC 0.000 Nucleated RBC % (auto) 0.0 PTT (Heparin Protocol) 61.1 Sodium Potassium Chloride Carbon Dioxide Anion Gap BUN Creatinine Estim Creat Clear Calc Estimated GFR POC Glucose Fasting Glucose Calcium Troponin I High Sens 24.1 H* D 05/07/21 05/07/21 05/07/21 05:23 05:23 07:44 WBC RBC Hgb Hct MCV MCH MCHC RDW Plt Count MPV Absolute Nucleated RBC Nucleated RBC % (auto) PTT (Heparin Protocol) Sodium 129 L Potassium 4.2 Chloride 97 Carbon Dioxide 18 L Anion Gap 18 BUN 29 H Creatinine 4.48 H* Estim Creat Clear Calc 11.2 Estimated GFR 10 POC Glucose 166 H Fasting Glucose 178 H Calcium 6.8 L Troponin I High Sens 22.4 H* 05/07/21 05/07/21 08:15 11:16 WBC RBC Hgb Hct MCV MCH MCHC RDW Plt Count MPV Absolute Nucleated RBC Nucleated RBC % (auto) PTT (Heparin Protocol) 59.8 Sodium Potassium Chloride Carbon Dioxide Anion Gap BUN Creatinine Estim Creat Clear Calc Estimated GFR POC Glucose 125 H Fasting Glucose Calcium Troponin I High Sens Assessment and Plan (1) Acute on chronic kidney failure: Status: Acute (2) PAF (paroxysmal atrial fibrillation): Status: Acute Pleasant 75-year-old female who is presenting for uremia and worsening kidney function and has been started on hemodialysis. She is again noticed to have episodes of atrial fibrillation with rapid ventricular response. Some of her rhythm strips are very irregular and appears like atrial flutter. In any case right now she is quite fast. Recent echocardiography has shown normal biventricular systolic function. I think can try Cardizem drip on her. Previously we discussed about anticoagulation and due to anemia this was stopped. She is currently on heparin drip due to his iliac vein thrombosis. In any case if she tolerates anticoagulation and her hemoglobin stays stable then I think we can start anticoagulation on her on this admission. Obviously if her hemoglobin drops and a concern for bleeding then anticoagulation cannot be started. We will follow along with you. Thank you for allowing me to participate in the care of your patient. Please feel free to contact me if you have any questions. Procedures Date of Service Date of Service: 05/07/21
[2021-05-07] MEDS: 0.9 % Sodium Chloride Flush 3 ML SYRINGE IVFLUSH (16:43)
[2021-05-07 16:51] LABS: Glucose, Whole Blood 112 mg/dL (60-115)
--- NOTE | 2021-05-07 18:46 | PC.NURSE ---
order for IV cardizem drip at 1630. Very poor IV access. one IV access site at this time to left wrist, IV heparin drip running. 5 People have attempted new IV access with no success. Awaiting nursing cement finishing supervisor to attempt one last try. notified. Midline to be placed tomorrow by IR.
[2021-05-07 19:59] LABS: Glucose, Whole Blood 117 mg/dL (60-115)
[2021-05-07] MEDS: Montelukast Sodium 10 MG TABLET PO (20:18)
[2021-05-07] MEDS: Atorvastatin Calcium 40 MG TABLET PO (20:18)
[2021-05-07] MEDS: Acetaminophen 325 MG TABLET 650 MG PO (22:26)
[2021-05-08] VITALS (9 sets, daily range): BP systolic 111–143; BP diastolic 54–80; PULSE 78–145; RESP 20; TEMP 36.1–37.1; O2SAT 96–99
[2021-05-08] MEDS: 0.9 % Sodium Chloride Flush 3 ML SYRINGE IVFLUSH ×3 (00:40→21:58)
[2021-05-08] MEDS: HYDROmorphone HCl 0.5 MG/0.5 ML SYRINGE IVPUSH (04:32)
[2021-05-08 05:53] LABS: Hematocrit 24.6 % (37.0-47.0); Hemoglobin 8.4 g/dl (12.0-16.0); Mean Corpuscular HGB Conc 34.1 g/dl (31.0-35.0); Mean Corpuscular Hemoglobin 31.7 pg (27.0-33.0); Mean Corpuscular Volume 92.8 fL (80.0-98.0); Mean Platelet Volume 9.7 fL (9.4-12.3); Platelet Count 244 X10*3/uL (160-400); Red Blood Count 2.65 X10*6/uL (4.20-5.50); Red Cell Distribution Width 13.8 % (11.0-16.0); White Blood Count 17.9 X10*3/uL (4.8-10.8)
[2021-05-08 06:17] LABS: Anion Gap 15 (12-20); Blood Urea Nitrogen 21 mg/dL (9-16); Calcium 7.3 mg/dL (8.4-10.2); Carbon Dioxide 20 mmol/L (22-29); Chloride 100 mmol/L (96-108); Creatinine Clr Calc Pharmacy 13.6; Estimated Glomerular Filt Rate 12; Glucose Fasting 94 mg/dL (60-99); Magnesium 1.9 mg/dL (1.6-2.6); Potassium 3.6 mmol/L (3.3-5.1); Sodium 131 mmol/L (135-145)
[2021-05-08 06:49] LABS: PTT Heparin Drip 167.2 SEC (53-77.9)
[2021-05-08 07:20] LABS: Glucose, Whole Blood 90 mg/dL (60-115)
[2021-05-08 08:19] LABS: PTT Heparin Drip 63.5 SEC (53-77.9)
[2021-05-08] MEDS: Metoprolol Tartrate 25 MG TABLET PO ×3 (09:00→21:58)
--- NOTE | 2021-05-08 11:19 | PM.PNNEP ---
Subjective Subjective Date of Service: 05/08/21 Interval history: Volume status had improved since yesterday. Has been initiated on HD this admission Physical Exam Vital Signs: Vital Signs: Last Vital Signs Temp 98.8 F 05/08/21 08:00 Pulse 139 H 05/08/21 09:00 Resp 20 05/08/21 08:00 BP 143/57 H 05/08/21 09:00 Pulse Ox 96 05/08/21 08:00 Body Mass Index 39.4 Const: General: no acute distress Eyes: EOM: EOMs intact bilaterally Resp: Auscultation: diminished lung sounds Cardio: Rate: regular rate GI: Palpation (GI): Soft to palpation Neuro: General: moves all extremities Objective Data Labs CBC & Chem 7: 05/08/21 05:45 05/08/21 05:45 Labs: Laboratory Results - last 24 hr 05/07/21 05/07/21 05/07/21 11:16 16:41 19:55 WBC RBC Hgb Hct MCV MCH MCHC RDW Plt Count MPV Absolute Nucleated RBC Nucleated RBC % (auto) PTT (Heparin Protocol) Sodium Potassium Chloride Carbon Dioxide Anion Gap BUN Creatinine Estim Creat Clear Calc Estimated GFR POC Glucose 125 H 112 117 H Fasting Glucose Calcium Magnesium 05/08/21 05/08/21 05/08/21 05:45 05:45 05:45 WBC 17.9 H RBC 2.65 L Hgb 8.4 L Hct 24.6 L MCV 92.8 MCH 31.7 MCHC 34.1 RDW 13.8 Plt Count 244 MPV 9.7 Absolute Nucleated RBC 0.000 Nucleated RBC % (auto) 0.0 PTT (Heparin Protocol) 167.2 H* D Sodium 131 L Potassium 3.6 Chloride 100 Carbon Dioxide 20 L Anion Gap 15 BUN 21 H Creatinine 3.70 H Estim Creat Clear Calc 13.6 Estimated GFR 12 POC Glucose Fasting Glucose 94 Calcium 7.3 L D Magnesium 1.9 05/08/21 05/08/21 07:15 08:02 WBC RBC Hgb Hct MCV MCH MCHC RDW Plt Count MPV Absolute Nucleated RBC Nucleated RBC % (auto) PTT (Heparin Protocol) 63.5 D Sodium Potassium Chloride Carbon Dioxide Anion Gap BUN Creatinine Estim Creat Clear Calc Estimated GFR POC Glucose 90 Fasting Glucose Calcium Magnesium Microbiology Microbiology Results: Microbiology 05/04/21 03:49 Stool Stool Culture - Final Procedures Date of Service Date of Service: 05/08/21 Assessment & Plan Assessment and plan (1) Acute on chronic kidney failure: Status: Acute Assessment and Plan: 72F with CKD V approaching HD, presented with weakness, diarrhea due to advanced CKD V, uremia, volume overload started HD 05/04 via temp cath placed 05/03 follow up on biopsy results ; Will UF today and HD again tomorrow Concur with rest of current management Time Spent With Patient Time: Total time spent is greater than 50% in coordination of care (as documented) at patient's floor/unit and/or counseling patient: Progress Note: Quality Stroke Does the patient have a stroke diagnosis?: No
--- NOTE | 2021-05-08 11:57 | HO.MIDLINE_ITS ---
PICC Line Insertion MIDLINE INSERTION Diagnosis: [ARF] Indication: [DIFFICULT IV ACCESS] Pertinent Labs: [REVIEWED] Technique: Using sterile technique including cap and mask, glove and drape the [LEFT] arm was prepped and draped in the usual sterile fashion of full barrier technique with CHG. Using ultrasound guidance, [LEFT BRACHIAL] vein access was obtained BY THIS RN ON FIRST ATTEMPT. A SINGLE LUMEN MIDLINE NON-PASV ([id number]) was positioned. The procedure was performed in [RM 272]. A FORMAL ULTRASOUND PICTURE WAS OBTAINED AND RECORDED. Ultrasound was used to document vein patency and for needle entry. [employer] has released the line for use and it is currently dressed with a StatLock, Tegaderm, and CHG disc. Verification has been performed for blood return and line patency. DR ALVARENGA WAS TIGERCONNECTED AFTER THE PROCEDURE WAS DONE REGARDING VENOUS FLUSHING ORDERS. Arm Circumference: [35CM] Equipment: [[facility] POWERGLIDE PRO MIDLINE] Catheter Type: [SINGLE LUMEN,NON-PASV ([id number])] Lot #: [[id number]]
--- NOTE | 2021-05-08 12:46 | PM.PNCARD ---
Subjective Subjective Date of Service: 05/08/21 <MARVA Araiza - Last Filed: 05/08/21 13:01> 05/08/21 <Semaj Hayes MD - Last Filed: 05/08/21 15:24> Principal diagnosis: PAF, acute on chronic RF <MARVA Araiza - Last Filed: 05/08/21 13:01> Interval history: Cardiology follow up for afib. Seen at 1130. Today she states she is feeling better. No chest discomfort or heart palpitations but tells me she both last evening. No shortness of breath, cough, PND, orthopnea. Denies dizziness. Has had issues with IV access and just had midline placed. On heparin drip for anticoagulation. No reports of bleeding. <MARVA Araiza - Last Filed: 05/08/21 13:01> Review of Systems Review of Systems as above <MARVA Araiza - Last Filed: 05/08/21 13:01> Yes all other systems are reviewed and are negative <MARVA Araiza - Last Filed: 05/08/21 13:01> Physical Exam Vital Signs: Last Vital Signs Temp 98.8 F 05/08/21 08:00 Pulse 139 H 05/08/21 09:00 Resp 20 05/08/21 08:00 BP 143/57 H 05/08/21 09:00 Pulse Ox 96 05/08/21 08:00 Body Mass Index 39.4 <MARVA Araiza - Last Filed: 05/08/21 13:01> Const General: cooperative, no acute distress, alert and awake <MARVA Araiza - Last Filed: 05/08/21 13:01> Orientation/consciousness: patient oriented x3 <MARVA Araiza - Last Filed: 05/08/21 13:01> Neck Neck: Yes normal visual inspection and Yes no JVD <MARVA Araiza - Last Filed: 05/08/21 13:01> Resp Effort & Inspection: normal respiratory effort, able to speak in complete sentences and not labored <MARVA Araiza - Last Filed: 05/08/21 13:01> Auscultation: clear to auscultation bilaterally, no rales, no rhonchi and wheezes (few expiratory wheezes noted) <CHANDANA AraizaC - Last Filed: 05/08/21 13:01> Cardio Jugular venous distension: JVD present <CHANDANA AraizaC - Last Filed: 05/08/21 13:01> Rate: regular rate <CHANDANA Araiza - Last Filed: 05/08/21 13:01> Heart sounds: S1 normal heart sound present and S2 normal heart sound present <Lovelytim Salcedo NP-C - Last Filed: 05/08/21 13:01> Peripheral pulses: Peripheral pulses 2+ throughout <CHANDANA Araiza - Last Filed: 05/08/21 13:01> GI Inspection: Yes normal to inspection <Lovely Salcedo NP-C - Last Filed: 05/08/21 13:01> Neuro General: patient oriented x3 <CHANDANA AraizaC - Last Filed: 05/08/21 13:01> Extrem General: Yes normal to inspection and No edema <Lovelytim Salcedo NP-C - Last Filed: 05/08/21 13:01> Objective Labs and Meds Result diagrams: : 05/08/21 05:45 05/08/21 05:45 <CHANDANA AraizaC - Last Filed: 05/08/21 13:01> Lab results: Laboratory Results - last 24 hr 05/07/21 05/07/21 05/08/21 16:41 19:55 05:45 WBC RBC Hgb Hct MCV MCH MCHC RDW Plt Count MPV Absolute Nucleated RBC Nucleated RBC % (auto) PTT (Heparin Protocol) 167.2 H* D Sodium Potassium Chloride Carbon Dioxide Anion Gap BUN Creatinine Estim Creat Clear Calc Estimated GFR POC Glucose 112 117 H Fasting Glucose Calcium Magnesium 05/08/21 05/08/21 05/08/21 05:45 05:45 07:15 WBC 17.9 H RBC 2.65 L Hgb 8.4 L Hct 24.6 L MCV 92.8 MCH 31.7 MCHC 34.1 RDW 13.8 Plt Count 244 MPV 9.7 Absolute Nucleated RBC 0.000 Nucleated RBC % (auto) 0.0 PTT (Heparin Protocol) Sodium 131 L Potassium 3.6 Chloride 100 Carbon Dioxide 20 L Anion Gap 15 BUN 21 H Creatinine 3.70 H Estim Creat Clear Calc 13.6 Estimated GFR 12 POC Glucose 90 Fasting Glucose 94 Calcium 7.3 L D Magnesium 1.9 05/08/21 08:02 WBC RBC Hgb Hct MCV MCH MCHC RDW Plt Count MPV Absolute Nucleated RBC Nucleated RBC % (auto) PTT (Heparin Protocol) 63.5 D Sodium Potassium Chloride Carbon Dioxide Anion Gap BUN Creatinine Estim Creat Clear Calc Estimated GFR POC Glucose Fasting Glucose Calcium Magnesium <MARVA Araiza - Last Filed: 05/08/21 13:01> Imaging Radiologist's impression: Impressions Chest CT 05/07/21 17:20 IMPRESSION: 1. Bibasilar consolidation/atelectasis with bilateral pleural effusions. 2. Small volume pericardial effusion. <MARVA Araiza - Last Filed: 05/08/21 13:01> Progress Note: A&P Assessment and plan (1) PAF (paroxysmal atrial fibrillation): Status: Acute <MARVA Araiza - Last Filed: 05/08/21 13:01> Assessment and Plan: New being of atrial fibrillation during admission earlier this month treated with rate control. Echocardiogram showed EF 60-65%, normal RV, normal left atrial size, mild pulmonary hypertension. Chads Vasc score of 4, anticoagulation was indicated however not started due to anemia with hemoglobin 7.5. History included iron deficiency anemia and pernicious anemia. Recommended evaluation of anemia prior to start of anticoagulation. Now with readmission for acute on chronic kidney disease. EKG and tele showing AFib with RVR. She continues on metoprolol for heart rate control. Diltiazem drip was ordered however Not started due to poor IV access. power press tender at present showing AFib with average rates 100 to 140s. She denies feeling heart palpitations. She now has a midline IV placed. Recommend start of the diltiazem drip for heart rate control. 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 Recommend close monitoring of H&H. If she remains stable on the heparin drip then will consider starting oral anticoagulation on her. We will follow <MARVA Araiza - Last Filed: 05/08/21 13:01> (2) Acute on chronic kidney failure: Status: Acute <MARVA Araiza - Last Filed: 05/08/21 13:01> Assessment and Plan: Being followed by Nephrology. <MARVA Araiza - Last Filed: 05/08/21 13:01> Fall Risk Details Current Medications: Current Medications Acetaminophen (Acetaminophen 325 Mg Tablet) 650 mg PO Q6H PRN PRN Reason: Pain, Mild (Pain Scale 1-3) Last Admin: 05/07/21 22:26 Dose: 650 mg Documented by: Albuterol/Ipratropium (Albuterol/Iprat 2.5/0.5mg 3 Ml Ampul.Neb) 3 ml INHALE RQ4H PRN PRN Reason: sob Last Admin: 05/06/21 15:59 Dose: 3 ml Documented by: Atorvastatin Calcium (Atorvastatin Calcium 40 Mg Tablet) 40 mg PO BEDTIME MARKIE Last Admin: 05/07/21 20:18 Dose: 40 mg Documented by: Cyanocobalamin (Cyanocobalamin (Vitamin B-12) 1,000 Mcg/Ml Vial) 1,000 mcg IM Q28D MARKIE Dextrose (Dextrose 50 % 25 Gm/50 Ml Vial) 25 gm IVPUSH Q15M PRN; Protocol PRN Reason: per Hypoglycemia Standing Ord. Glucose (Glucose Gel 15 Gm Gel..Gram.) 15 gm PO Q15M PRN; Protocol PRN Reason: per Hypoglycemia Standing Ord. Heparin Sodium (Porcine) (Heparin Sodium,Porcine 5,000 Unit/Ml Vial) 3,700 unit 40 unit/kg (3700 unit) IVPUSH PROTOCOL BOLUS PRN; Protocol PRN Reason: 40 unit/kg - Heparin Protocol Heparin Sodium (Porcine) (Heparin Sodium,Porcine 5,000 Unit/Ml Vial) 7,300 unit 80 unit/kg (7300 unit) IVPUSH PROTOCOL BOLUS PRN; Protocol PRN Reason: 80 unit/kg - Heparin Protocol Heparin Sodium (Porcine) (Heparin Sodium,Porcine 5,000 Unit/Ml Vial) 5,000 unit INTRACATH ONCE ONE Stop: 05/09/21 06:13 Hydromorphone HCl (Hydromorphone Hcl 0.5 Mg/0.5 Ml Syringe) 0.5 mg IVPUSH Q4H PRN; Protocol PRN Reason: moderate pain Last Admin: 05/08/21 04:32 Dose: 0.5 mg Documented by: Heparin Sodium/Sodium Chloride () 25,000 unit in 250 mls @ 0 mls/hr IVCONT .Q0M [facility]; Protocol Last Titration: 05/08/21 08:45 Dose: 3 units/kg/hr, 2.75 mls/hr Documented by: Diltiazem HCl 125 mg/ Sodium (Chloride) 125 mls @ 0 mls/hr IVCONT .Q0M [facility]; Protocol Insulin Human Lispro (Insulin Lispro 100 Unit/Ml 3 Ml Vial) 0 unit SUBCUT QIDACHS [facility]; Protocol Last Admin: 05/08/21 07:24 Dose: Not Given Documented by: Levothyroxine Sodium (Levothyroxine Sodium 25 Mcg Tablet) 25 mcg PO DAILY@0600 [facility] Last Admin: 05/08/21 06:03 Dose: Not Given Documented by: Loratadine (Loratadine 10 Mg Tablet) 10 mg PO DAILY [facility] Last Admin: 05/07/21 08:22 Dose: 10 mg Documented by: Melatonin (Melatonin 3 Mg Tablet) 6 mg PO BEDTIME PRN PRN Reason: Insomnia Last Admin: 05/07/21 00:51 Dose: 6 mg Documented by: Metoprolol Tartrate (Metoprolol Tartrate 25 Mg Tablet) 25 mg PO QID [facility]; Protocol Last Admin: 05/08/21 09:00 Dose: 25 mg Documented by: Montelukast Sodium (Montelukast Sodium 10 Mg Tablet) 10 mg PO BEDTIME [facility] Last Admin: 05/07/21 20:18 Dose: 10 mg Documented by: Nitroglycerin (Nitroglycerin 0.4 Mg Tab.Subl) 0.4 mg SUBLINGUAL Q5MX3 PRN PRN Reason: chest Omeprazole (Omeprazole 20 Mg Capsule.Dr) 20 mg PO DAILY@0630 [facility] Last Admin: 05/08/21 06:04 Dose: Not Given Documented by: Psyllium Hydrophilic Mucilloid (Psyllium Seed 3.4 Gm Powd.Pack) 3.4 gm PO DAILY [facility] Last Admin: 05/07/21 08:26 Dose: Not Given Documented by: Senna (Sennosides 8.6 Mg Tablet) 17.2 mg PO BEDTIME PRN PRN Reason: Constipation Sodium Chloride (0.9 % Sodium Chloride Flush 3 Ml Syringe) 3 ml IVFLUSH QSHIFT [facility] Last Admin: 05/08/21 00:40 Dose: 3 ml Documented by: Sodium Chloride (0.9 % Sodium Chloride Flush 10 Ml Syringe) 5 ml IVFLUSH TID [facility] Vitamin D (Cholecalciferol (Vitamin D3) 25 Mcg Tablet) 25 mcg PO DAILY [facility] Last Admin: 05/07/21 08:22 Dose: 25 mcg Documented by: <MARVA Araiza - Last Filed: 05/08/21 13:01> Time Spent With Patient Time: Total time spent is greater than 50% in coordination of care (as documented) at patient's floor/unit and/or counseling patient: <MARVA Araiza - Last Filed: 05/08/21 13:01> Time with patient: 15 - 24 minutes <MARVA Araiza - Last Filed: 05/08/21 13:01> Progress Note: Quality Stroke Does the patient have a stroke diagnosis?: No <MARVA Araiza - Last Filed: 05/08/21 13:01> Procedures Date of Service Date of Service: 05/08/21 <MARVA Araiza - Last Filed: 05/08/21 13:01>
--- NOTE | 2021-05-08 13:16 | HO.PM.IMPN ---
Subjective Subjective Date of Service: 05/08/21 Interval History: cc: weak interval history: feeling much better today Respiratory Respiratory: Reports no additional respiratory complaints Gastrointestinal Gastrointestinal: Reports no additional gastrointestinal complaints Physical Exam Vital Signs: Vital Signs: Last Vital Signs Temp 98.8 F 05/08/21 08:00 Pulse 139 H 05/08/21 09:00 Resp 20 05/08/21 08:00 BP 143/57 H 05/08/21 09:00 Pulse Ox 96 05/08/21 08:00 Body Mass Index 39.4 General: AO times 3, overall ill appearing but much improved from yesterday Resp:? CTA bilateral, no accessory muscles used CVS: S1,S2,irregular and rapid GI: soft, non tender, non distended Neuro:? motor grossly intact, alert Psych: appropriate affect, impaired insight? RUE swelling improving Objective Data Active Medications Acetaminophen (Acetaminophen 325 Mg Tablet) 650 mg PO Q6H PRN PRN Reason: Pain, Mild (Pain Scale 1-3) Last Admin: 05/07/21 22:26 Dose: 650 mg Documented by: NORMA Albuterol/Ipratropium (Albuterol/Iprat 2.5/0.5mg 3 Ml Ampul.Neb) 3 ml INHALE RQ4H PRN PRN Reason: sob Last Admin: 05/06/21 15:59 Dose: 3 ml Documented by: AALIYAH Atorvastatin Calcium (Atorvastatin Calcium 40 Mg Tablet) 40 mg PO BEDTIME MARKIE Last Admin: 05/07/21 20:18 Dose: 40 mg Documented by: NORMA Cyanocobalamin (Cyanocobalamin (Vitamin B-12) 1,000 Mcg/Ml Vial) 1,000 mcg IM Q28D [facility] Dextrose (Dextrose 50 % 25 Gm/50 Ml Vial) 25 gm IVPUSH Q15M PRN; Protocol PRN Reason: per Hypoglycemia Standing Ord. Glucose (Glucose Gel 15 Gm Gel..Gram.) 15 gm PO Q15M PRN; Protocol PRN Reason: per Hypoglycemia Standing Ord. Heparin Sodium (Porcine) (Heparin Sodium,Porcine 5,000 Unit/Ml Vial) 3,700 unit 40 unit/kg (3700 unit) IVPUSH PROTOCOL BOLUS PRN; Protocol PRN Reason: 40 unit/kg - Heparin Protocol Heparin Sodium (Porcine) (Heparin Sodium,Porcine 5,000 Unit/Ml Vial) 7,300 unit 80 unit/kg (7300 unit) IVPUSH PROTOCOL BOLUS PRN; Protocol PRN Reason: 80 unit/kg - Heparin Protocol Heparin Sodium (Porcine) (Heparin Sodium,Porcine 5,000 Unit/Ml Vial) 5,000 unit INTRACATH ONCE ONE Stop: 05/09/21 06:13 Hydromorphone HCl (Hydromorphone Hcl 0.5 Mg/0.5 Ml Syringe) 0.5 mg IVPUSH Q4H PRN; Protocol PRN Reason: moderate pain Last Admin: 05/08/21 04:32 Dose: 0.5 mg Documented by: NORMA Heparin Sodium/Sodium Chloride () 25,000 unit in 250 mls @ 0 mls/hr IVCONT .Q0M [facility]; Protocol Last Titration: 05/08/21 08:45 Dose: 3 units/kg/hr, 2.75 mls/hr Documented by: NING Cosigned by: LAY Diltiazem HCl 125 mg/ Sodium (Chloride) 125 mls @ 0 mls/hr IVCONT .Q0M [facility]; Protocol Insulin Human Lispro (Insulin Lispro 100 Unit/Ml 3 Ml Vial) 0 unit SUBCUT QIDACHS [facility]; Protocol Last Admin: 05/08/21 07:24 Dose: Not Given Documented by: NING Non-Admin Reason: No Insulin Coverage Levothyroxine Sodium (Levothyroxine Sodium 25 Mcg Tablet) 25 mcg PO DAILY@0600 [facility] Last Admin: 05/08/21 06:03 Dose: Not Given Documented by: NORMA Non-Admin Reason: NPO Loratadine (Loratadine 10 Mg Tablet) 10 mg PO DAILY [facility] Last Admin: 05/07/21 08:22 Dose: 10 mg Documented by: ALISSON Melatonin (Melatonin 3 Mg Tablet) 6 mg PO BEDTIME PRN PRN Reason: Insomnia Last Admin: 05/07/21 00:51 Dose: 6 mg Documented by: SADIQ Metoprolol Tartrate (Metoprolol Tartrate 25 Mg Tablet) 25 mg PO QID [facility]; Protocol Last Admin: 05/08/21 09:00 Dose: 25 mg Documented by: JANIE-TURENA Montelukast Sodium (Montelukast Sodium 10 Mg Tablet) 10 mg PO BEDTIME [facility] Last Admin: 05/07/21 20:18 Dose: 10 mg Documented by: NORMA Nitroglycerin (Nitroglycerin 0.4 Mg Tab.Subl) 0.4 mg SUBLINGUAL Q5MX3 PRN PRN Reason: chest Omeprazole (Omeprazole 20 Mg Capsule.Dr) 20 mg PO DAILY@0630 [facility] Last Admin: 05/08/21 06:04 Dose: Not Given Documented by: NORMA Non-Admin Reason: NPO Psyllium Hydrophilic Mucilloid (Psyllium Seed 3.4 Gm Powd.Pack) 3.4 gm PO DAILY [facility] Last Admin: 05/07/21 08:26 Dose: Not Given Documented by: ALISSON Non-Admin Reason: NPO Senna (Sennosides 8.6 Mg Tablet) 17.2 mg PO BEDTIME PRN PRN Reason: Constipation Sodium Chloride (0.9 % Sodium Chloride Flush 3 Ml Syringe) 3 ml IVFLUSH QSHIFT [facility] Last Admin: 05/08/21 00:40 Dose: 3 ml Documented by: NORMA Sodium Chloride (0.9 % Sodium Chloride Flush 10 Ml Syringe) 5 ml IVFLUSH TID [facility] Vitamin D (Cholecalciferol (Vitamin D3) 25 Mcg Tablet) 25 mcg PO DAILY [facility] Last Admin: 05/07/21 08:22 Dose: 25 mcg Documented by: ALISSON Labs CBC & Chem 7: 05/08/21 05:45 05/08/21 05:45 Labs: Laboratory Results - last 24 hr 05/07/21 05/07/21 05/08/21 16:41 19:55 05:45 MCV MCH MCHC RDW Plt Count MPV Absolute Nucleated RBC Nucleated RBC % (auto) PTT (Heparin Protocol) 167.2 H* D Anion Gap Estim Creat Clear Calc Estimated GFR POC Glucose 112 117 H Fasting Glucose Calcium Magnesium 05/08/21 05/08/21 05/08/21 05:45 05:45 07:15 MCV 92.8 MCH 31.7 MCHC 34.1 RDW 13.8 Plt Count 244 MPV 9.7 Absolute Nucleated RBC 0.000 Nucleated RBC % (auto) 0.0 PTT (Heparin Protocol) Anion Gap 15 Estim Creat Clear Calc 13.6 Estimated GFR 12 POC Glucose 90 Fasting Glucose 94 Calcium 7.3 L D Magnesium 1.9 05/08/21 08:02 MCV MCH MCHC RDW Plt Count MPV Absolute Nucleated RBC Nucleated RBC % (auto) PTT (Heparin Protocol) 63.5 D Anion Gap Estim Creat Clear Calc Estimated GFR POC Glucose Fasting Glucose Calcium Magnesium Microbiology Microbiology Results: Microbiology 05/04/21 03:49 Stool Culture - Final Stool Assessment and Plan (1) Acute on chronic kidney failure: Status: Acute Assessment and Plan: 72F with CKD V approaching HD, presented with weakness, diarrhea weakness due to advanced CKD V, uremia started HD 05/04 via temp cath placed 05/03 follow up biopsy, permacath delayed due to elevated WBC, cultures negative from 04/20, no signs of sepsis, follow up cbc monitor bmp weakness improving RUE swelling small right basilic vein thrombosis. will treat with iv heparin for now as planning permacath, [place] anticoagulation likely to be eliquis 5mg bid without loading DM inuslin htn toprol changed to lopressor holding nifedipine to allow for meds for rate control hypothyroid synthroid paroxysmal atrial fibrillation diagnosed on last admission, now with RVR holding toprol, started lopressor 25mg q6h not started on A/C previously due to concern for bleeding, on iv heparin now for RUE thrombus start diltiazem infusion (initially delayed due to lack of access, now with midline) Quality Stroke Does the patient have a stroke diagnosis?: No VTE Prior VTE?: No VTE Risk Level:: Medical - moderate - high VTE Device Contraindication: N/A - Device Ordered VTE Drug Contraindication: Treatment Not Indicated
[2021-05-08 15:34] LABS: PTT Heparin Drip 38.7 SEC (53-77.9)
[2021-05-08 16:00] LABS: Glucose, Whole Blood 142 mg/dL (60-115)
[2021-05-08] MEDS: dilTIAZem HCL 125 MG in 0.9 % Sodium Chloride 100 ML 10 MG IVCONT (16:14)
[2021-05-08] MEDS: Heparin Sodium,Porcine 5,000 UNIT/ML VIAL 3700 UNIT IVPUSH ×2 (16:19→23:02)
[2021-05-08] MEDS: 0.9 % Sodium Chloride Flush 10 ML SYRINGE 5 ML IVFLUSH ×2 (16:21→22:03)
[2021-05-08 19:33] LABS: Glucose, Whole Blood 237 mg/dL (60-115)
[2021-05-08] MEDS: Montelukast Sodium 10 MG TABLET PO (21:58)
[2021-05-08] MEDS: Atorvastatin Calcium 40 MG TABLET PO (21:58)
[2021-05-08] MEDS: Insulin Lispro 100 UNIT/ML 3 ML VIAL SUBCUT (22:02)
[2021-05-08] MEDS: Melatonin 3 MG TABLET 6 MG PO (22:02)
[2021-05-09] VITALS (7 sets, daily range): BP systolic 91–146; BP diastolic 59–92; PULSE 80–137; RESP 18–20; TEMP 35.9–37.4; O2SAT 94–99
--- NOTE | 2021-05-09 00:18 | P.EN_ITS ---
Event Note Date of Service: 05/09/21 Event Note: pt noted to have 3s pause x2 while sleeping. asymptomatic. off car dizem drip
[2021-05-09] MEDS: Heparin Sodium,Porcine/1/2NS 25,000 UNIT/250 ML IV.SOLN 6.41 UNIT IVCONT (01:59)
[2021-05-09 05:03] LABS: Hematocrit 23.2 % (37.0-47.0); Hemoglobin 7.8 g/dl (12.0-16.0); Mean Corpuscular HGB Conc 33.6 g/dl (31.0-35.0); Mean Corpuscular Hemoglobin 31.5 pg (27.0-33.0); Mean Corpuscular Volume 93.5 fL (80.0-98.0); Mean Platelet Volume 9.6 fL (9.4-12.3); Platelet Count 246 X10*3/uL (160-400); Red Blood Count 2.48 X10*6/uL (4.20-5.50); White Blood Count 16.9 X10*3/uL (4.8-10.8)
[2021-05-09 05:32] LABS: PTT Heparin Drip 147.3 SEC (53-77.9)
[2021-05-09 05:38] LABS: Anion Gap 17 (12-20); Blood Urea Nitrogen 36 mg/dL (9-16); Calcium 7.5 mg/dL (8.4-10.2); Carbon Dioxide 18 mmol/L (22-29); Chloride 98 mmol/L (96-108); Creatinine Clr Calc Pharmacy 9.4; Estimated Glomerular Filt Rate 8; Glucose Fasting 116 mg/dL (60-99); Potassium 3.6 mmol/L (3.3-5.1); Sodium 129 mmol/L (135-145)
[2021-05-09] MEDS: Levothyroxine Sodium 25 MCG TABLET PO (06:44)
[2021-05-09] MEDS: Omeprazole 20 MG CAPSULE.DR PO (06:44)
[2021-05-09 07:00] LABS: PTT Heparin Drip 37.4 SEC (53-77.9)
[2021-05-09 07:47] LABS: Glucose, Whole Blood 144 mg/dL (60-115)
[2021-05-09] MEDS: 0.9 % Sodium Chloride Flush 3 ML SYRINGE IVFLUSH ×3 (08:03→22:36)
[2021-05-09] MEDS: 0.9 % Sodium Chloride Flush 10 ML SYRINGE 5 ML IVFLUSH ×2 (08:03→15:16)
[2021-05-09] MEDS: Cholecalciferol (Vitamin D3) 25 MCG TABLET PO (08:04)
[2021-05-09] MEDS: Loratadine 10 MG TABLET PO (08:04)
--- NOTE | 2021-05-09 10:08 | PM.PNNEP ---
Subjective Subjective Date of Service: 05/09/21 Principal diagnosis: PAF, acute on chronic RF Interval history: Currently on HD. Volume status improved. Has not had permcath yet. BP medications being backed off Physical Exam Vital Signs: Vital Signs: Last Vital Signs Temp 96.7 F L 05/09/21 07:56 Pulse 107 H 05/09/21 07:56 Resp 20 05/09/21 07:56 BP 91/59 L 05/09/21 07:56 Pulse Ox 99 05/09/21 07:56 Body Mass Index 39.4 Const: General: comfortable Orientation/consciousness: patient oriented x3 HENMT: Head: Yes normocephalic Eyes: EOM: EOMs intact bilaterally Neck: Other: RIJ temp HD catheter + Resp: Auscultation: diminished lung sounds Cardio: Rate: regular rate GI: Palpation (GI): Soft to palpation Neuro: General: patient oriented x3 and moves all extremities Objective Data Labs CBC & Chem 7: 05/09/21 04:50 05/09/21 04:50 Labs: Laboratory Results - last 24 hr 05/08/21 05/08/21 05/08/21 14:58 15:57 19:29 WBC RBC Hgb Hct MCV MCH MCHC RDW Plt Count MPV Absolute Nucleated RBC Nucleated RBC % (auto) PTT (Heparin Protocol) 38.7 L D Sodium Potassium Chloride Carbon Dioxide Anion Gap BUN Creatinine Estim Creat Clear Calc Estimated GFR POC Glucose 142 H 237 H Fasting Glucose Calcium 05/08/21 05/09/21 05/09/21 21:55 04:50 04:50 WBC 16.9 H RBC 2.48 L Hgb 7.8 L Hct 23.2 L MCV 93.5 MCH 31.5 MCHC 33.6 RDW 14.0 Plt Count 246 MPV 9.6 Absolute Nucleated RBC 0.000 Nucleated RBC % (auto) 0.0 PTT (Heparin Protocol) 48.0 L D Sodium 129 L Potassium 3.6 Chloride 98 Carbon Dioxide 18 L Anion Gap 17 BUN 36 H D Creatinine 5.36 H* Estim Creat Clear Calc 9.4 Estimated GFR 8 POC Glucose Fasting Glucose 116 H Calcium 7.5 L 05/09/21 05/09/21 05/09/21 04:50 06:41 07:37 WBC RBC Hgb Hct MCV MCH MCHC RDW Plt Count MPV Absolute Nucleated RBC Nucleated RBC % (auto) PTT (Heparin Protocol) 147.3 H* D 37.4 L D Sodium Potassium Chloride Carbon Dioxide Anion Gap BUN Creatinine Estim Creat Clear Calc Estimated GFR POC Glucose 144 H Fasting Glucose Calcium Microbiology Microbiology Results: Microbiology 05/04/21 03:49 Stool Stool Culture - Final Procedures Date of Service Date of Service: 05/09/21 Assessment & Plan Assessment and plan (1) Acute on chronic kidney failure: Status: Acute Assessment and Plan: 72F with CKD V approaching HD, presented with weakness, diarrhea- ? ESRD now due to advanced CKD V, uremia, volume overload started HD 05/04 via temp cath placed 05/03 Shall follow up on biopsy results Currently on HD. Adjusted bicarb in dialysate today Needs Permcath by IR ? Friday. 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
--- NOTE | 2021-05-09 10:19 | HO.PM.IMPN ---
Subjective Subjective Date of Service: 05/09/21 Interval History: patient was seen and evaluated this morning in the dialysis unit Laying in bed, feels uncomfortable and complaining of pain all over her body Denies any fever, chills or shortness of breath No reported other overnight events. Systemic review: No fever, chills but complain of pain and weakness No chest pain, palpitation No shortness of breath or coughing No abdominal pain, nausea or vomiting No urinary symptoms Arm swelling Physical Exam Vital Signs: Vital Signs: Last Vital Signs Temp 96.7 F L 05/09/21 07:56 Pulse 107 H 05/09/21 07:56 Resp 20 05/09/21 07:56 BP 91/59 L 05/09/21 07:56 Pulse Ox 99 05/09/21 07:56 Body Mass Index 39.4 Const: Other: Constitutional : Alert, oriented, looks chronically and weak Neck : Normal inspection, Supple Cardiovascular : RRR, S1 S2, no lower extremity edema Respiratory : Fair bilateral air entry, no crackles, wheezes or rhonchi Gastrointestinal: soft, lax, Normal bowel sounds, Non tender Skin : Warm, Dry, swelling improving Neurological : Alert & oriented x2, No focal deficit Objective Data Active Medications Acetaminophen (Acetaminophen 325 Mg Tablet) 650 mg PO Q6H PRN PRN Reason: Pain, Mild (Pain Scale 1-3) Last Admin: 05/07/21 22:26 Dose: 650 mg Documented by: NORMA Albuterol/Ipratropium (Albuterol/Iprat 2.5/0.5mg 3 Ml Ampul.Neb) 3 ml INHALE RQ4H PRN PRN Reason: sob Last Admin: 05/06/21 15:59 Dose: 3 ml Documented by: AALIYAH Atorvastatin Calcium (Atorvastatin Calcium 40 Mg Tablet) 40 mg PO BEDTIME MARKIE Last Admin: 05/08/21 21:58 Dose: 40 mg Documented by: GIOVANNI Cyanocobalamin (Cyanocobalamin (Vitamin B-12) 1,000 Mcg/Ml Vial) 1,000 mcg IM Q28D [facility] Dextrose (Dextrose 50 % 25 Gm/50 Ml Vial) 25 gm IVPUSH Q15M PRN; Protocol PRN Reason: per Hypoglycemia Standing Ord. Glucose (Glucose Gel 15 Gm Gel..Gram.) 15 gm PO Q15M PRN; Protocol PRN Reason: per Hypoglycemia Standing Ord. Heparin Sodium (Porcine) (Heparin Sodium,Porcine 5,000 Unit/Ml Vial) 3,700 unit 40 unit/kg (3700 unit) IVPUSH PROTOCOL BOLUS PRN; Protocol PRN Reason: 40 unit/kg - Heparin Protocol Last Admin: 05/08/21 23:02 Dose: 3,700 unit Documented by: GIOVANNI Heparin Sodium (Porcine) (Heparin Sodium,Porcine 5,000 Unit/Ml Vial) 7,300 unit 80 unit/kg (7300 unit) IVPUSH PROTOCOL BOLUS PRN; Protocol PRN Reason: 80 unit/kg - Heparin Protocol Hydromorphone HCl (Hydromorphone Hcl 0.5 Mg/0.5 Ml Syringe) 0.5 mg IVPUSH Q4H PRN; Protocol PRN Reason: moderate pain Last Admin: 05/08/21 04:32 Dose: 0.5 mg Documented by: NORMA Heparin Sodium/Sodium Chloride () 25,000 unit in 250 mls @ 0 mls/hr IVCONT .Q0M [facility]IE; Protocol Last Titration: 05/09/21 08:21 Dose: 4 units/kg/hr, 3.67 mls/hr Documented by: AYDEN Cosigned by: MIROSLAVA Diltiazem HCl 125 mg/ Sodium (Chloride) 125 mls @ 0 mls/hr IVCONT .Q0M [facility]; Protocol Last Titration: 05/08/21 20:51 Dose: 0 mg/hr, 0 mls/hr Documented by: GIOVANNI Insulin Human Lispro (Insulin Lispro 100 Unit/Ml 3 Ml Vial) 0 unit SUBCUT QIDACHS [facility]; Protocol Last Admin: 05/09/21 07:50 Dose: Not Given Documented by: AYDEN Non-Admin Reason: No Insulin Coverage Levothyroxine Sodium (Levothyroxine Sodium 25 Mcg Tablet) 25 mcg PO DAILY@0600 [facility] Last Admin: 05/09/21 06:44 Dose: 25 mcg Documented by: JOSE DAVID Loratadine (Loratadine 10 Mg Tablet) 10 mg PO DAILY [facility] Last Admin: 05/09/21 08:04 Dose: 10 mg Documented by: AYDEN Melatonin (Melatonin 3 Mg Tablet) 6 mg PO BEDTIME PRN PRN Reason: Insomnia Last Admin: 05/08/21 22:02 Dose: 6 mg Documented by: GIOVANNI Metoprolol Tartrate (Metoprolol Tartrate 25 Mg Tablet) 25 mg PO QID [facility]; Protocol Last Admin: 05/09/21 08:20 Dose: Not Given Documented by: AYDEN Non-Admin Reason: Physician Held Med Montelukast Sodium (Montelukast Sodium 10 Mg Tablet) 10 mg PO BEDTIME [facility] Last Admin: 05/08/21 21:58 Dose: 10 mg Documented by: GIOVANNI Nitroglycerin (Nitroglycerin 0.4 Mg Tab.Subl) 0.4 mg SUBLINGUAL Q5MX3 PRN PRN Reason: chest Omeprazole (Omeprazole 20 Mg Capsule.Dr) 20 mg PO DAILY@0630 [facility] Last Admin: 05/09/21 06:44 Dose: 20 mg Documented by: JOSE DAVID Psyllium Hydrophilic Mucilloid (Psyllium Seed 3.4 Gm Powd.Pack) 3.4 gm PO DAILY [facility] Last Admin: 05/09/21 08:04 Dose: 3.4 gm Documented by: AYDEN Senna (Sennosides 8.6 Mg Tablet) 17.2 mg PO BEDTIME PRN PRN Reason: Constipation Sodium Chloride (0.9 % Sodium Chloride Flush 3 Ml Syringe) 3 ml IVFLUSH QSHIFT [facility] Last Admin: 05/09/21 08:03 Dose: 3 ml Documented by: AYDEN Sodium Chloride (0.9 % Sodium Chloride Flush 10 Ml Syringe) 5 ml IVFLUSH TID [facility] Last Admin: 05/09/21 08:03 Dose: 5 ml Documented by: AYDEN Vitamin D (Cholecalciferol (Vitamin D3) 25 Mcg Tablet) 25 mcg PO DAILY [facility] Last Admin: 05/09/21 08:04 Dose: 25 mcg Documented by: AYDEN Labs CBC & Chem 7: 05/09/21 04:50 05/09/21 04:50 Labs: Laboratory Results - last 24 hr 05/08/21 05/08/21 05/08/21 14:58 15:57 19:29 MCV MCH MCHC RDW Plt Count MPV Absolute Nucleated RBC Nucleated RBC % (auto) PTT (Heparin Protocol) 38.7 L D Anion Gap Estim Creat Clear Calc Estimated GFR POC Glucose 142 H 237 H Fasting Glucose Calcium 05/08/21 05/09/21 05/09/21 21:55 04:50 04:50 MCV 93.5 MCH 31.5 MCHC 33.6 RDW 14.0 Plt Count 246 MPV 9.6 Absolute Nucleated RBC 0.000 Nucleated RBC % (auto) 0.0 PTT (Heparin Protocol) 48.0 L D Anion Gap 17 Estim Creat Clear Calc 9.4 Estimated GFR 8 POC Glucose Fasting Glucose 116 H Calcium 7.5 L 05/09/21 05/09/21 05/09/21 04:50 06:41 07:37 MCV MCH MCHC RDW Plt Count MPV Absolute Nucleated RBC Nucleated RBC % (auto) PTT (Heparin Protocol) 147.3 H* D 37.4 L D Anion Gap Estim Creat Clear Calc Estimated GFR POC Glucose 144 H Fasting Glucose Calcium Assessment and Plan (1) Metabolic acidosis: Status: Acute (2) Acute kidney injury superimposed on chronic kidney disease: Status: Acute (3) Paroxysmal atrial fibrillation: Status: Acute (4) DVT of upper extremity (deep vein thrombosis): Status: Acute Assessment and Plan: 72F with CKD V approaching HD, presented with weakness, diarrhea weakness due to advanced CKD V, uremia started HD 05/04 via temp cath placed 05/03 follow up biopsy, permacath delayed due to elevated WBC, cultures negative from 04/20 no signs of sepsis, follow up cbc plan for Permacath monitor bmp weakness improving RUE swelling small right basilic vein thrombosis. treat with iv heparin for now as planning permacath, supervisor intermediates anticoagulation likely to be eliquis 5mg bid without loading DM inuslin htn toprol changed to lopressor holding nifedipine to allow for meds for rate control hypothyroid synthroid paroxysmal atrial fibrillation diagnosed on last admission, now with RVR holding toprol, started lopressor 25mg q6h not started on A/C previously due to concern for bleeding, on iv heparin now for RUE thrombus start diltiazem infusion (initially delayed due to lack of access, now with midline) DVT ppx Heparin Quality Stroke Does the patient have a stroke diagnosis?: No VTE Prior VTE?: No VTE Risk Level:: Medical - moderate - high VTE Device Contraindication: N/A - Device Ordered VTE Drug Contraindication: Treatment Not Indicated
--- NOTE | 2021-05-09 12:26 | P.PNCA_ITS ---
Subjective Subjective Date of Service: 05/09/21 <MARVA Araiza - Last Filed: 05/09/21 12:42> 05/09/21 <Semaj Hayes MD - Last Filed: 05/09/21 21:32> Principal diagnosis: PAF, acute on chronic RF <MARVA Araiza - Last Filed: 05/09/21 12:42> Interval history: Cardiology follow up for PAF, RF. Seen at 0830. Today she is observed resting in bed without distress. She denies having sob, orthopnea or PND. Slept well during night. No chest pains, palpitations, dizziness. Wearing 02 1 liter with nasal cannula. Diltiazem drip is off. Heparin drip in infusing. Nurse reports plan for dialysis today. <MARVA Araiza - Last Filed: 05/09/21 12:42> Review of Systems Review of Systems as above <MARVA Araiza - Last Filed: 05/09/21 12:42> Yes all other systems are reviewed and are negative <MARVA Araiza - Last Filed: 05/09/21 12:42> Physical Exam Vital Signs: Last Vital Signs Temp 96.7 F L 05/09/21 07:56 Pulse 107 H 05/09/21 07:56 Resp 20 05/09/21 07:56 BP 91/59 L 05/09/21 07:56 Pulse Ox 99 05/09/21 07:56 Body Mass Index 39.4 <MARVA Araiza - Last Filed: 05/09/21 12:42> Const General: cooperative, no acute distress, alert and awake <MARVA Araiza - Last Filed: 05/09/21 12:42> Orientation/consciousness: patient oriented x3 <MARVA Araiza - Last Filed: 05/09/21 12:42> Neck Neck: Yes JVD (to below level of jaw) <MARVA Araiza - Last Filed: 05/09/21 12:42> Resp Effort & Inspection: normal respiratory effort, able to speak in complete sentences and not labored <MARVA Araiza - Last Filed: 05/09/21 12:42> Auscultation: no rhonchi and no wheezes <Lovely Salcedo NPC - Last Filed: 05/09/21 12:42> Cardio Jugular venous distension: JVD present <Lovely Salcedo NP - Last Filed: 05/09/21 12:42> Palpation: normal PMI <Lovely Salcedo NPC - Last Filed: 05/09/21 12:42> Rate: tachycardic <Lovely Salcedo [facility] - Last Filed: 05/09/21 12:42> Rhythm: abnormal rhythm irregularly irregular <Lovelytim Salcedo [facility] - Last Filed: 05/09/21 12:42> Heart sounds: S1 normal heart sound present and S2 normal heart sound present <Lovely Salcedo NP - Last Filed: 05/09/21 12:42> GI Inspection: Yes normal to inspection <Lovely Salcedo [facility] - Last Filed: 05/09/21 12:42> Neuro General: patient oriented x3 <Lovely Salcedo NP - Last Filed: 05/09/21 12:42> Extrem General: Yes normal to inspection and No edema <Lovely Salcedo [facility] - Last Filed: 05/09/21 12:42> Objective Labs and Meds Result diagrams: : 05/09/21 04:50 05/09/21 04:50 <Lovely Salcedo [facility] - Last Filed: 05/09/21 12:42> Lab results: Laboratory Results - last 24 hr 05/08/21 05/08/21 05/08/21 14:58 15:57 19:29 WBC RBC Hgb Hct MCV MCH MCHC RDW Plt Count MPV Absolute Nucleated RBC Nucleated RBC % (auto) PTT (Heparin Protocol) 38.7 L D Sodium Potassium Chloride Carbon Dioxide Anion Gap BUN Creatinine Estim Creat Clear Calc Estimated GFR POC Glucose 142 H 237 H Fasting Glucose Calcium 05/08/21 05/09/21 05/09/21 21:55 04:50 04:50 WBC 16.9 H RBC 2.48 L Hgb 7.8 L Hct 23.2 L MCV 93.5 MCH 31.5 MCHC 33.6 RDW 14.0 Plt Count 246 MPV 9.6 Absolute Nucleated RBC 0.000 Nucleated RBC % (auto) 0.0 PTT (Heparin Protocol) 48.0 L D Sodium 129 L Potassium 3.6 Chloride 98 Carbon Dioxide 18 L Anion Gap 17 BUN 36 H D Creatinine 5.36 H* Estim Creat Clear Calc 9.4 Estimated GFR 8 POC Glucose Fasting Glucose 116 H Calcium 7.5 L 05/09/21 05/09/21 05/09/21 04:50 06:41 07:37 WBC RBC Hgb Hct MCV MCH MCHC RDW Plt Count MPV Absolute Nucleated RBC Nucleated RBC % (auto) PTT (Heparin Protocol) 147.3 H* D 37.4 L D Sodium Potassium Chloride Carbon Dioxide Anion Gap BUN Creatinine Estim Creat Clear Calc Estimated GFR POC Glucose 144 H Fasting Glucose Calcium <MARVA Araiza - Last Filed: 05/09/21 12:42> Progress Note: A&P Assessment and plan (1) PAF (paroxysmal atrial fibrillation): Status: Acute <MARVA Araiza - Last Filed: 05/09/21 12:42> Assessment and Plan: Finding of new atrial fibrillation during admission earlier this month treated with rate control.? Echocardiogram showed EF 60-65%, normal RV, normal left atrial size, mild pulmonary hypertension.? Chads Vasc score of 4, anticoagulation was indicated however not started at that time due to anemia with hemoglobin 7.5.? History included iron deficiency anemia and pernicious anemia.? Recommended evaluation of anemia prior to start of anticoagulation.? Now with readmission for acute on chronic kidney disease.? EKG and tele showing AFib with RVR.? She continues on metoprolol for heart rate control.? Diltiazem drip was started yesterday with improvement in rate. Last evening she did have 2 three second pauses with the AF and Drip was stopped. Since then her rate has been increasing. Tele this am shows Afib rates 100-120s. Am Metoprolol had been held due to hypotension and plan for dialysis this am. At present, no report of palpitations. Continue with dialysis as planned. Continue Metoprolol if BP allows. If needed and BP allows, Diltiazem drip could be restarted. Ongoing tele monitoring. 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 Hgb this am 7.8 which is down from 9.9 on admit. Stool occult + on 05/04. Recommend further evaluation. Unclear at present if able to use shelter oral anticoagulation on her. We will follow <CHANDANA Araiza - Last Filed: 05/09/21 12:42> (2) Acute on chronic kidney failure: Status: Acute <MARVA Araiza - Last Filed: 05/09/21 12:42> Assessment and Plan: Followed by Nephrology. To undergo dialysis today <MARVA Araiza - Last Filed: 05/09/21 12:42> (3) Anemia: Status: Acute <MARVA Araiza - Last Filed: 05/09/21 12:42> Assessment and Plan: as above <MARVA Araiza - Last Filed: 05/09/21 12:42> Fall Risk Details Current Medications: Current Medications Acetaminophen (Acetaminophen 325 Mg Tablet) 650 mg PO Q6H PRN PRN Reason: Pain, Mild (Pain Scale 1-3) Last Admin: 05/07/21 22:26 Dose: 650 mg Documented by: Albuterol/Ipratropium (Albuterol/Iprat 2.5/0.5mg 3 Ml Ampul.Neb) 3 ml INHALE RQ4H PRN PRN Reason: sob Last Admin: 05/06/21 15:59 Dose: 3 ml Documented by: Atorvastatin Calcium (Atorvastatin Calcium 40 Mg Tablet) 40 mg PO BEDTIME MARKIE Last Admin: 05/08/21 21:58 Dose: 40 mg Documented by: Cyanocobalamin (Cyanocobalamin (Vitamin B-12) 1,000 Mcg/Ml Vial) 1,000 mcg IM Q28D [facility] Dextrose (Dextrose 50 % 25 Gm/50 Ml Vial) 25 gm IVPUSH Q15M PRN; Protocol PRN Reason: per Hypoglycemia Standing Ord. Glucose (Glucose Gel 15 Gm Gel..Gram.) 15 gm PO Q15M PRN; Protocol PRN Reason: per Hypoglycemia Standing Ord. Heparin Sodium (Porcine) (Heparin Sodium,Porcine 5,000 Unit/Ml Vial) 3,700 unit 40 unit/kg (3700 unit) IVPUSH PROTOCOL BOLUS PRN; Protocol PRN Reason: 40 unit/kg - Heparin Protocol Last Admin: 05/08/21 23:02 Dose: 3,700 unit Documented by: Heparin Sodium (Porcine) (Heparin Sodium,Porcine 5,000 Unit/Ml Vial) 7,300 unit 80 unit/kg (7300 unit) IVPUSH PROTOCOL BOLUS PRN; Protocol PRN Reason: 80 unit/kg - Heparin Protocol Hydromorphone HCl (Hydromorphone Hcl 0.5 Mg/0.5 Ml Syringe) 0.5 mg IVPUSH Q4H PRN; Protocol PRN Reason: moderate pain Last Admin: 05/08/21 04:32 Dose: 0.5 mg Documented by: Heparin Sodium/Sodium Chloride () 25,000 unit in 250 mls @ 0 mls/hr IVCONT .Q0M [facility]; Protocol Last Titration: 05/09/21 08:21 Dose: 4 units/kg/hr, 3.67 mls/hr Documented by: Diltiazem HCl 125 mg/ Sodium (Chloride) 125 mls @ 0 mls/hr IVCONT .Q0M [facility]; Protocol Last Titration: 05/08/21 20:51 Dose: 0 mg/hr, 0 mls/hr Documented by: Insulin Human Lispro (Insulin Lispro 100 Unit/Ml 3 Ml Vial) 0 unit SUBCUT QIDACHS [facility]; Protocol Last Admin: 05/09/21 07:50 Dose: Not Given Documented by: Levothyroxine Sodium (Levothyroxine Sodium 25 Mcg Tablet) 25 mcg PO DAILY@0600 [facility] Last Admin: 05/09/21 06:44 Dose: 25 mcg Documented by: Loratadine (Loratadine 10 Mg Tablet) 10 mg PO DAILY [facility] Last Admin: 05/09/21 08:04 Dose: 10 mg Documented by: Melatonin (Melatonin 3 Mg Tablet) 6 mg PO BEDTIME PRN PRN Reason: Insomnia Last Admin: 05/08/21 22:02 Dose: 6 mg Documented by: Metoprolol Tartrate (Metoprolol Tartrate 25 Mg Tablet) 25 mg PO QID [facility]; Protocol Last Admin: 05/09/21 08:20 Dose: Not Given Documented by: Montelukast Sodium (Montelukast Sodium 10 Mg Tablet) 10 mg PO BEDTIME [facility] Last Admin: 05/08/21 21:58 Dose: 10 mg Documented by: Nitroglycerin (Nitroglycerin 0.4 Mg Tab.Subl) 0.4 mg SUBLINGUAL Q5MX3 PRN PRN Reason: chest Omeprazole (Omeprazole 20 Mg Capsule.Dr) 20 mg PO DAILY@0630 [facility] Last Admin: 05/09/21 06:44 Dose: 20 mg Documented by: Psyllium Hydrophilic Mucilloid (Psyllium Seed 3.4 Gm Powd.Pack) 3.4 gm PO DAILY [facility] Last Admin: 05/09/21 08:04 Dose: 3.4 gm Documented by: Senna (Sennosides 8.6 Mg Tablet) 17.2 mg PO BEDTIME PRN PRN Reason: Constipation Sodium Chloride (0.9 % Sodium Chloride Flush 3 Ml Syringe) 3 ml IVFLUSH QSHIFT [facility] Last Admin: 05/09/21 08:03 Dose: 3 ml Documented by: Sodium Chloride (0.9 % Sodium Chloride Flush 10 Ml Syringe) 5 ml IVFLUSH TID [facility] Last Admin: 05/09/21 08:03 Dose: 5 ml Documented by: Vitamin D (Cholecalciferol (Vitamin D3) 25 Mcg Tablet) 25 mcg PO DAILY [facility] Last Admin: 05/09/21 08:04 Dose: 25 mcg Documented by: <MARVA Araiza - Last Filed: 05/09/21 12:42> Time Spent With Patient Time: Total time spent is greater than 50% in coordination of care (as documented) at patient's floor/unit and/or counseling patient: 24 <MARVA Araiza - Last Filed: 05/09/21 12:42> Time with patient: 15 - 24 minutes <MARVA Araiza - Last Filed: 05/09/21 12:42> Progress Note: Quality Stroke Does the patient have a stroke diagnosis?: No <MARVA Araiza Last Filed: 05/09/21 12:42> Procedures Date of Service Date of Service: 05/09/21 <MARVA Araiza - Last Filed: 05/09/21 12:42>
--- NOTE | 2021-05-09 13:50 | MHC.CM.PN ---
Female 75 DX Afib New HD No discharge today. Per MD rounds Patient may discharge Friday. DP home with new [facility]. Pt has not had a PT eval yet r/t Heparin GTT. 2 referrals to HD SNFs have been made, [facility]. If home Son will provide transport.
[2021-05-09] MEDS: Metoprolol Tartrate 25 MG TABLET PO ×2 (14:55→16:39)
[2021-05-09 15:13] LABS: Glucose, Whole Blood 123 mg/dL (60-115)
[2021-05-09 16:08] LABS: Glucose, Whole Blood 174 mg/dL (60-115)
[2021-05-09] MEDS: Insulin Lispro 100 UNIT/ML 3 ML VIAL SUBCUT ×2 (16:39→22:36)
[2021-05-09 16:56] LABS: PTT Heparin Drip 40.1 SEC (53-77.9)
[2021-05-09] MEDS: Heparin Sodium,Porcine 5,000 UNIT/ML VIAL 3700 UNIT IVPUSH ×2 (17:09→23:51)
--- NOTE | 2021-05-09 19:39 | PC.NURSE ---
Cardizem drip paused fro 2 nights ago due to 3-sec pauses, MD was made aware and medical record consultant noted that after dialysis, they might place on her P.O. Pt Lopressor was held prior dialysis as her BP was soft; MD was made aware and agree to hold med; BP was rechecked after dialysis and scheduled dosage was given at the time after consulting with Heparin Drip Pt Hep drip was stopped due to PTTHD being high which was then redrew 6 hours later per protocol in which case it was low and required to be restarted without a bolus dose. Drip had to be put on pause again as pT was headed to dialysis; medical record consultant was made aware and noted to restart after dialysis; however as this was the second time since it was stopped I inquired as to what rate should it be restarted and if we needed a new PTTHD. acknowledged we should start fresh and new PTTHD was ordered and Hep drip was started with new rate.
[2021-05-09 20:44] LABS: Glucose, Whole Blood 164 mg/dL (60-115)
[2021-05-09] MEDS: Atorvastatin Calcium 40 MG TABLET PO (22:36)
[2021-05-09] MEDS: Montelukast Sodium 10 MG TABLET PO (22:36)
[2021-05-09] MEDS: Melatonin 3 MG TABLET 6 MG PO (22:36)
[2021-05-09 22:44] LABS: PTT Heparin Drip 47.3 SEC (53-77.9)
[2021-05-09] MEDS: HYDROmorphone HCl 0.5 MG/0.5 ML SYRINGE IVPUSH (23:53)
[2021-05-10] VITALS (11 sets, daily range): BP systolic 93–144; BP diastolic 54–83; PULSE 75–128; RESP 15–19; TEMP 36.6–37.4; O2SAT 96–100
[2021-05-10] MEDS: Levothyroxine Sodium 25 MCG TABLET PO (05:52)
[2021-05-10] MEDS: Omeprazole 20 MG CAPSULE.DR PO (05:52)
[2021-05-10 06:49] LABS: Hematocrit 24.1 % (37.0-47.0); Hemoglobin 7.8 g/dl (12.0-16.0); Mean Corpuscular HGB Conc 32.4 g/dl (31.0-35.0); Mean Corpuscular Hemoglobin 30.6 pg (27.0-33.0); Mean Corpuscular Volume 94.5 fL (80.0-98.0); Platelet Count 234 X10*3/uL (160-400); Red Blood Count 2.55 X10*6/uL (4.20-5.50); White Blood Count 14.2 X10*3/uL (4.8-10.8)
[2021-05-10 07:16] LABS: Anion Gap 15 (12-20); Blood Urea Nitrogen 20 mg/dL (9-16); Carbon Dioxide 21 mmol/L (22-29); Chloride 98 mmol/L (96-108); Creatinine Clr Calc Pharmacy 13.9; Estimated Glomerular Filt Rate 12; Glucose Random 144 mg/dL (60-115); Potassium 3.2 mmol/L (3.3-5.1); Sodium 131 mmol/L (135-145)
[2021-05-10 07:23] LABS: PTT Heparin Drip 63.9 SEC (53-77.9)
[2021-05-10 07:35] LABS: Glucose, Whole Blood 145 mg/dL (60-115)
[2021-05-10 08:03] LABS: Calcium 7.3 mg/dL (8.4-10.2)
[2021-05-10] MEDS: Loratadine 10 MG TABLET PO (10:45)
[2021-05-10] MEDS: Cholecalciferol (Vitamin D3) 25 MCG TABLET PO (10:45)
[2021-05-10] MEDS: Metoprolol Tartrate 25 MG TABLET PO ×3 (10:45→21:43)
[2021-05-10] MEDS: 0.9 % Sodium Chloride Flush 3 ML SYRINGE IVFLUSH (10:46)
--- NOTE | 2021-05-10 11:02 | P.PNCA_ITS ---
Subjective Subjective Date of Service: 05/10/21 <MARVA Araiza - Last Filed: 05/10/21 11:17> 05/10/21 <Semaj Hayes MD - Last Filed: 05/10/21 16:55> Principal diagnosis: PAF, acute on chronic RF, anemia <MARVA Araiza - Last Filed: 05/10/21 11:17> Interval history: Cardiology follow up for AF. Seen at 0920. Today she is observed resting in bed without distress. She reports that breathing comfortable, no chest pains or palpitaton. Slept well with HOB mostly down. Lower legs still have swelling per her. No signs of bleeding. IV Heparin still infusing. Wearing 02 with nasal cannula. Lao interpretor used. <MARVA Araiza - Last Filed: 05/10/21 11:17> Review of Systems Review of Systems as above <MARVA Araiza - Last Filed: 05/10/21 11:17> Yes all other systems are reviewed and are negative <MARVA Araiza - Last Filed: 05/10/21 11:17> Physical Exam Vital Signs: Last Vital Signs Temp 97.9 F 05/10/21 08:00 Pulse 120 H 05/10/21 10:45 Resp 19 05/10/21 08:00 BP 108/54 L 05/10/21 10:45 Pulse Ox 99 05/10/21 08:00 Body Mass Index 39.4 <MARVA Araiza - Last Filed: 05/10/21 11:17> Const General: cooperative, no acute distress, alert and awake <MARVA Araiza - Last Filed: 05/10/21 11:17> Orientation/consciousness: patient oriented x3 <MARVA Araiza - Last Filed: 05/10/21 11:17> Neck Other: Temp HD line right neck <MARVA Araiza - Last Filed: 05/10/21 11:17> Neck: Yes JVD <MARVA Araiza - Last Filed: 05/10/21 11:17> Resp Other: fine rales noted in each lower lobe, less than yesterday <Lovely ISELA Salcedo-C - Last Filed: 05/10/21 11:17> Effort & Inspection: normal respiratory effort, able to speak in complete sentences and not labored <[facility] [employer]-C - Last Filed: 05/10/21 11:17> Auscultation: clear to auscultation bilaterally, no rhonchi and no wheezes <[facility] Matias [employer]-C - Last Filed: 05/10/21 11:17> Cardio Jugular venous distension: JVD present <[facility] [employer]-[facility] - Last Filed: 05/10/21 11:17> Rate: tachycardic <[facility] Matias -C - Last Filed: 05/10/21 11:17> Rhythm: abnormal rhythm irregularly irregular <[facility] - Last Filed: 05/10/21 11:17> Heart sounds: S1 normal heart sound present and S2 normal heart sound present <[facility] Matias [employer]PER[employer]ENT-C - Last Filed: 05/10/21 11:17> Peripheral pulses: Peripheral pulses 2+ throughout <[facility] [employer]-C - Last Filed: 05/10/21 11:17> GI Inspection: Yes normal to inspection <[facility] Matias [employer]PER[employer]ENT-C - Last Filed: 05/10/21 11:17> Neuro General: patient oriented x3 <[facility]ias [employer]-C - Last Filed: 05/10/21 11:17> Extrem Other: nonpitting soft lower leg swelling <[facility] [employer]-C - Last Filed: 05/10/21 11:17> General: Yes normal to inspection <[facility] - Last Filed: 05/10/21 11:17> Objective Labs and Meds Result diagrams: : 05/10/21 05:56 05/10/21 05:56 <[facility] - Last Filed: 05/10/21 11:17> Lab results: Laboratory Results - last 24 hr 05/09/21 05/09/21 05/09/21 15:09 16:04 16:25 WBC RBC Hgb Hct MCV MCH MCHC RDW Plt Count MPV Absolute Nucleated RBC Nucleated RBC % (auto) PTT (Heparin Protocol) 40.1 L Sodium Potassium Chloride Carbon Dioxide Anion Gap BUN Creatinine Estim Creat Clear Calc Estimated GFR POC Glucose 123 H 174 H Random Glucose Calcium Magnesium 05/09/21 05/09/21 05/10/21 20:37 22:26 05:56 WBC RBC Hgb Hct MCV MCH MCHC RDW Plt Count MPV Absolute Nucleated RBC Nucleated RBC % (auto) PTT (Heparin Protocol) 47.3 L 63.9 D Sodium Potassium Chloride Carbon Dioxide Anion Gap BUN Creatinine Estim Creat Clear Calc Estimated GFR POC Glucose 164 H Random Glucose Calcium Magnesium 05/10/21 05/10/21 05/10/21 05:56 05:56 07:14 WBC 14.2 H RBC 2.55 L Hgb 7.8 L Hct 24.1 L MCV 94.5 MCH 30.6 MCHC 32.4 RDW 14.0 Plt Count 234 MPV 10.0 Absolute Nucleated RBC 0.000 Nucleated RBC % (auto) 0.0 PTT (Heparin Protocol) Sodium 131 L Potassium 3.2 L Chloride 98 Carbon Dioxide 21 L Anion Gap 15 BUN 20 H Creatinine 3.65 H Estim Creat Clear Calc 13.9 Estimated GFR 12 POC Glucose 145 H Random Glucose 144 H Calcium 7.3 L Magnesium 2.0 <MARVA Araiza - Last Filed: 05/10/21 11:17> Progress Note: A&P Assessment and plan (1) PAF (paroxysmal atrial fibrillation): Status: Acute <MARVA Araiza - Last Filed: 05/10/21 11:17> Assessment and Plan: Newer persistent Afib, first diagnosed earlier this month. Being treated with heart rate control. Not started on anticoagulation at that time due to anemia and need for further evaluation. Echocardiogram 04/20/21 showed EF 60- 65%, normal RV, normal left atrial size, mild pulmonary hypertension.? Now with readmission for acute on chronic kidney disease and has been start on dialysis. Afib rates have been elevated. She is on Metoprolol for rate control. Diltiazem drip had been used 2 days ago and stopped due to 2 three second pauses. At this time, Tele shows afib rates 90-120s. No reports of chest pains or heart palpitations. Continue on Metoprolol 25mg QID for rate control. Can further titrate if needed for better rate control. If still tachycardic then Diltiazem can be used. Ongoing tele monitoring. She is on heparin drip at present time for small thrombus in right basilic vein. Hgb this am 7.8 which is down from 9.9 on admit. Stool occult + on 05/04. GI has seen, but unclear if they are aware of guiac + stool. Recommend further evaluation. Recommend transfusion. Unclear at present if able to use [facility] oral anticoagulation on her.? We will follow <MARVA Araiza - Last Filed: 05/10/21 11:17> (2) Acute on chronic kidney failure: Status: Acute <MARVA Araiza - Last Filed: 05/10/21 11:17> Assessment and Plan: Followed by nephrology. Notes indicate plan for permacath and dialysis tomorrow <MARVA Araiza - Last Filed: 05/10/21 11:17> (3) Anemia: Status: Acute <MARVA Araiza - Last Filed: 05/10/21 11:17> Assessment and Plan: as above <MARVA Araiza - Last Filed: 05/10/21 11:17> Fall Risk Details Current Medications: Current Medications Acetaminophen (Acetaminophen 325 Mg Tablet) 650 mg PO Q6H PRN PRN Reason: Pain, Mild (Pain Scale 1-3) Last Admin: 05/07/21 22:26 Dose: 650 mg Documented by: Albuterol/Ipratropium (Albuterol/Iprat 2.5/0.5mg 3 Ml Ampul.Neb) 3 ml INHALE RQ4H PRN PRN Reason: sob Last Admin: 05/06/21 15:59 Dose: 3 ml Documented by: Atorvastatin Calcium (Atorvastatin Calcium 40 Mg Tablet) 40 mg PO BEDTIME MARKIE Last Admin: 05/09/21 22:36 Dose: 40 mg Documented by: Cyanocobalamin (Cyanocobalamin (Vitamin B-12) 1,000 Mcg/Ml Vial) 1,000 mcg IM Q28D MARKIE Dextrose (Dextrose 50 % 25 Gm/50 Ml Vial) 25 gm IVPUSH Q15M PRN; Protocol PRN Reason: per Hypoglycemia Standing Ord. Gabapentin (Gabapentin 100 Mg Capsule) 100 mg PO BEDTIME [facility] Glucose (Glucose Gel 15 Gm Gel..Gram.) 15 gm PO Q15M PRN; Protocol PRN Reason: per Hypoglycemia Standing Ord. Heparin Sodium (Porcine) (Heparin Sodium,Porcine 5,000 Unit/Ml Vial) 3,700 unit 40 unit/kg (3700 unit) IVPUSH PROTOCOL BOLUS PRN; Protocol PRN Reason: 40 unit/kg - Heparin Protocol Last Admin: 05/09/21 23:51 Dose: 3,700 unit Documented by: Heparin Sodium (Porcine) (Heparin Sodium,Porcine 5,000 Unit/Ml Vial) 7,300 unit 80 unit/kg (7300 unit) IVPUSH PROTOCOL BOLUS PRN; Protocol PRN Reason: 80 unit/kg - Heparin Protocol Hydromorphone HCl (Hydromorphone Hcl 0.5 Mg/0.5 Ml Syringe) 0.5 mg IVPUSH Q4H PRN; Protocol PRN Reason: moderate pain Last Admin: 05/09/21 23:53 Dose: 0.5 mg Documented by: Heparin Sodium/Sodium Chloride () 25,000 unit in 250 mls @ 0 mls/hr IVCONT .Q0M [facility]; Protocol Last Titration: 05/09/21 23:52 Dose: 7 units/kg/hr, 6.41 mls/hr Documented by: Diltiazem HCl 125 mg/ Sodium (Chloride) 125 mls @ 0 mls/hr IVCONT .Q0M [facility]; Protocol Last Titration: 05/08/21 20:51 Dose: 0 mg/hr, 0 mls/hr Documented by: Insulin Human Lispro (Insulin Lispro 100 Unit/Ml 3 Ml Vial) 0 unit SUBCUT QIDACHS [facility]; Protocol Last Admin: 05/10/21 08:11 Dose: Not Given Documented by: Levothyroxine Sodium (Levothyroxine Sodium 25 Mcg Tablet) 25 mcg PO DAILY@0600 [facility] Last Admin: 05/10/21 05:52 Dose: 25 mcg Documented by: Loratadine (Loratadine 10 Mg Tablet) 10 mg PO DAILY [facility] Last Admin: 05/10/21 10:45 Dose: 10 mg Documented by: Magnesium Hydroxide (Milk Of Magnesia 30 Ml Oral.Susp) 15 ml PO BID PRN PRN Reason: Constipation Melatonin (Melatonin 3 Mg Tablet) 6 mg PO BEDTIME PRN PRN Reason: Insomnia Last Admin: 05/09/21 22:36 Dose: 6 mg Documented by: Metoprolol Tartrate (Metoprolol Tartrate 25 Mg Tablet) 25 mg PO QID [facility]; Protocol Last Admin: 05/10/21 10:45 Dose: 25 mg Documented by: Montelukast Sodium (Montelukast Sodium 10 Mg Tablet) 10 mg PO BEDTIME [facility] Last Admin: 05/09/21 22:36 Dose: 10 mg Documented by: Nitroglycerin (Nitroglycerin 0.4 Mg Tab.Subl) 0.4 mg SUBLINGUAL Q5MX3 PRN PRN Reason: chest Omeprazole (Omeprazole 20 Mg Capsule.Dr) 20 mg PO DAILY@0630 [facility] Last Admin: 05/10/21 05:52 Dose: 20 mg Documented by: Psyllium Hydrophilic Mucilloid (Psyllium Seed 3.4 Gm Powd.Pack) 3.4 gm PO DAILY [facility] Last Admin: 05/10/21 10:45 Dose: 3.4 gm Documented by: Senna (Sennosides 8.6 Mg Tablet) 17.2 mg PO BEDTIME PRN PRN Reason: Constipation Sodium Chloride (0.9 % Sodium Chloride Flush 3 Ml Syringe) 3 ml IVFLUSH QSHIFT [facility] Last Admin: 05/10/21 10:46 Dose: 3 ml Documented by: Sodium Chloride (0.9 % Sodium Chloride Flush 10 Ml Syringe) 5 ml IVFLUSH TID [facility] Last Admin: 05/10/21 10:46 Dose: Not Given Documented by: Vitamin D (Cholecalciferol (Vitamin D3) 25 Mcg Tablet) 25 mcg PO DAILY [facility] Last Admin: 05/10/21 10:45 Dose: 25 mcg Documented by: <MARVA Araiza - Last Filed: 05/10/21 11:17> Time Spent With Patient Time: Total time spent is greater than 50% in coordination of care (as documented) at patient's floor/unit and/or counseling patient: 26 <MARVA Arazia - Last Filed: 05/10/21 11:17> Time with patient: 25 - 35 minutes <MARVA Araiza - Last Filed: 05/10/21 11:17> Progress Note: Quality Stroke Does the patient have a stroke diagnosis?: No <MARVA Araiza - Last Filed: 05/10/21 11:17> Procedures Date of Service Date of Service: 05/10/21 <MARVA Araiza - Last Filed: 05/10/21 11:17>
--- NOTE | 2021-05-10 11:24 | HO.PM.IMPN ---
Subjective Subjective Date of Service: 05/10/21 Interval History: patient was seen and evaluated this morning Laying in bed, feels little better today Complaining of neuropathy in her lower extremities Denies any fever, chills or shortness of breath No reported other overnight events. Systemic review: No fever, chills but complain of pain and weakness No chest pain, palpitation No shortness of breath or coughing No abdominal pain, nausea or vomiting No urinary symptoms Physical Exam Vital Signs: Vital Signs: Last Vital Signs Temp 97.9 F 05/10/21 08:00 Pulse 120 H 05/10/21 10:45 Resp 19 05/10/21 08:00 BP 108/54 L 05/10/21 10:45 Pulse Ox 99 05/10/21 08:00 Body Mass Index 39.4 Const: Other: Constitutional : Alert, oriented, looks chronically ill and weak Neck : Normal inspection, Supple Cardiovascular : RRR, S1 S2, no lower extremity edema Respiratory : Fair bilateral air entry, no crackles, wheezes or rhonchi Gastrointestinal: soft, lax, Normal bowel sounds, Non tender Skin : Warm, Dry, swelling improving Neurological : Alert & oriented x2, No focal deficit Objective Data Active Medications Acetaminophen (Acetaminophen 325 Mg Tablet) 650 mg PO Q6H PRN PRN Reason: Pain, Mild (Pain Scale 1-3) Last Admin: 05/07/21 22:26 Dose: 650 mg Documented by: NORMA Albuterol/Ipratropium (Albuterol/Iprat 2.5/0.5mg 3 Ml Ampul.Neb) 3 ml INHALE RQ4H PRN PRN Reason: sob Last Admin: 05/06/21 15:59 Dose: 3 ml Documented by: AALIYAH Atorvastatin Calcium (Atorvastatin Calcium 40 Mg Tablet) 40 mg PO BEDTIME MARKIE Last Admin: 05/09/21 22:36 Dose: 40 mg Documented by: SOLEDAD Cyanocobalamin (Cyanocobalamin (Vitamin B-12) 1,000 Mcg/Ml Vial) 1,000 mcg IM Q28D MARKIE Dextrose (Dextrose 50 % 25 Gm/50 Ml Vial) 25 gm IVPUSH Q15M PRN; Protocol PRN Reason: per Hypoglycemia Standing Ord. Gabapentin (Gabapentin 100 Mg Capsule) 100 mg PO BEDTIME [facility] Glucose (Glucose Gel 15 Gm Gel..Gram.) 15 gm PO Q15M PRN; Protocol PRN Reason: per Hypoglycemia Standing Ord. Heparin Sodium (Porcine) (Heparin Sodium,Porcine 5,000 Unit/Ml Vial) 3,700 unit 40 unit/kg (3700 unit) IVPUSH PROTOCOL BOLUS PRN; Protocol PRN Reason: 40 unit/kg - Heparin Protocol Last Admin: 05/09/21 23:51 Dose: 3,700 unit Documented by: BAYLEE Heparin Sodium (Porcine) (Heparin Sodium,Porcine 5,000 Unit/Ml Vial) 7,300 unit 80 unit/kg (7300 unit) IVPUSH PROTOCOL BOLUS PRN; Protocol PRN Reason: 80 unit/kg - Heparin Protocol Hydromorphone HCl (Hydromorphone Hcl 0.5 Mg/0.5 Ml Syringe) 0.5 mg IVPUSH Q4H PRN; Protocol PRN Reason: moderate pain Last Admin: 05/09/21 23:53 Dose: 0.5 mg Documented by: BAYLEE Heparin Sodium/Sodium Chloride () 25,000 unit in 250 mls @ 0 mls/hr IVCONT .Q0M [facility]; Protocol Last Titration: 05/09/21 23:52 Dose: 7 units/kg/hr, 6.41 mls/hr Documented by: BAYLEE Cosigned by: SOLEDAD Diltiazem HCl 125 mg/ Sodium (Chloride) 125 mls @ 0 mls/hr IVCONT .Q0M [facility]; Protocol Last Titration: 05/08/21 20:51 Dose: 0 mg/hr, 0 mls/hr Documented by: GIOVANNI Insulin Human Lispro (Insulin Lispro 100 Unit/Ml 3 Ml Vial) 0 unit SUBCUT QIDACHS [facility]; Protocol Last Admin: 05/10/21 08:11 Dose: Not Given Documented by: AYDEN Non-Admin Reason: No Insulin Coverage Levothyroxine Sodium (Levothyroxine Sodium 25 Mcg Tablet) 25 mcg PO DAILY@0600 [facility] Last Admin: 05/10/21 05:52 Dose: 25 mcg Documented by: BAYLEE Loratadine (Loratadine 10 Mg Tablet) 10 mg PO DAILY [facility] Last Admin: 05/10/21 10:45 Dose: 10 mg Documented by: SOURAV Magnesium Hydroxide (Milk Of Magnesia 30 Ml Oral.Susp) 15 ml PO BID PRN PRN Reason: Constipation Melatonin (Melatonin 3 Mg Tablet) 6 mg PO BEDTIME PRN PRN Reason: Insomnia Last Admin: 05/09/21 22:36 Dose: 6 mg Documented by: SOLEDAD Metoprolol Tartrate (Metoprolol Tartrate 25 Mg Tablet) 25 mg PO QID [facility]; Protocol Last Admin: 05/10/21 10:45 Dose: 25 mg Documented by: SOURAV Montelukast Sodium (Montelukast Sodium 10 Mg Tablet) 10 mg PO BEDTIME [facility] Last Admin: 05/09/21 22:36 Dose: 10 mg Documented by: SOLEDAD Nitroglycerin (Nitroglycerin 0.4 Mg Tab.Subl) 0.4 mg SUBLINGUAL Q5MX3 PRN PRN Reason: chest Omeprazole (Omeprazole 20 Mg Capsule.Dr) 20 mg PO DAILY@0630 [facility] Last Admin: 05/10/21 05:52 Dose: 20 mg Documented by: BAYLEE Psyllium Hydrophilic Mucilloid (Psyllium Seed 3.4 Gm Powd.Pack) 3.4 gm PO DAILY [facility] Last Admin: 05/10/21 10:45 Dose: 3.4 gm Documented by: SOURAV Senna (Sennosides 8.6 Mg Tablet) 17.2 mg PO BEDTIME PRN PRN Reason: Constipation Sodium Chloride (0.9 % Sodium Chloride Flush 3 Ml Syringe) 3 ml IVFLUSH QSHIFT [facility] Last Admin: 05/10/21 10:46 Dose: 3 ml Documented by: SOURAV Sodium Chloride (0.9 % Sodium Chloride Flush 10 Ml Syringe) 5 ml IVFLUSH TID [facility] Last Admin: 05/10/21 10:46 Dose: Not Given Documented by: SOURAV Non-Admin Reason: Duplicate Order Vitamin D (Cholecalciferol (Vitamin D3) 25 Mcg Tablet) 25 mcg PO DAILY [facility] Last Admin: 05/10/21 10:45 Dose: 25 mcg Documented by: SOURAV Labs CBC & Chem 7: 05/10/21 05:56 05/10/21 05:56 Labs: Laboratory Results - last 24 hr 05/09/21 05/09/21 05/09/21 15:09 16:04 16:25 MCV MCH MCHC RDW Plt Count MPV Absolute Nucleated RBC Nucleated RBC % (auto) PTT (Heparin Protocol) 40.1 L Anion Gap Estim Creat Clear Calc Estimated GFR POC Glucose 123 H 174 H Random Glucose Calcium Magnesium 05/09/21 05/09/21 05/10/21 20:37 22:26 05:56 MCV MCH MCHC RDW Plt Count MPV Absolute Nucleated RBC Nucleated RBC % (auto) PTT (Heparin Protocol) 47.3 L 63.9 D Anion Gap Estim Creat Clear Calc Estimated GFR POC Glucose 164 H Random Glucose Calcium Magnesium 05/10/21 05/10/21 05/10/21 05:56 05:56 07:14 MCV 94.5 MCH 30.6 MCHC 32.4 RDW 14.0 Plt Count 234 MPV 10.0 Absolute Nucleated RBC 0.000 Nucleated RBC % (auto) 0.0 PTT (Heparin Protocol) Anion Gap 15 Estim Creat Clear Calc 13.9 Estimated GFR 12 POC Glucose 145 H Random Glucose 144 H Calcium 7.3 L Magnesium 2.0 Assessment and Plan (1) PAF (paroxysmal atrial fibrillation): Status: Acute (2) Metabolic acidosis: Status: Acute (3) Acute on chronic kidney failure: Status: Acute (4) DVT of upper extremity (deep vein thrombosis): Status: Acute Assessment and Plan: 72F with CKD V approaching HD, presented with weakness, diarrhea generalized weakness due to advanced CKD V, uremia started HD 05/04 via temp cath placed 05/03 follow up biopsy, permacath delayed due to elevated WBC, cultures negative from 04/20 no signs of sepsis, follow up cbc plan for Permacath monitor bmp PT eval RUE swelling small right basilic vein thrombosis. treat with iv heparin for now as planning permacath, intermediate frame tender anticoagulation likely to be eliquis 5mg bid without loading DM inuslin HTN toprol changed to lopressor holding nifedipine to allow for meds for rate control hypothyroid synthroid paroxysmal atrial fibrillation diagnosed on last admission, now with RVR holding toprol, started lopressor 25mg q6h not started on A/C previously due to concern for bleeding, on iv heparin now for RUE thrombus start diltiazem infusion (initially delayed due to lack of access, now with midline) DVT ppx Heparin Quality Stroke Does the patient have a stroke diagnosis?: No VTE Prior VTE?: No VTE Risk Level:: Medical - moderate - high VTE Device Contraindication: N/A - Device Ordered VTE Drug Contraindication: Treatment Not Indicated
--- NOTE | 2021-05-10 11:42 | PM.PNNEP ---
Subjective Subjective Date of Service: 05/10/21 Principal diagnosis: PAF, acute on chronic RF, anemia Interval history: Feels improved. Seen AM. Awaiting permcath Physical Exam Vital Signs: Vital Signs: Last Vital Signs Temp 97.9 F 05/10/21 08:00 Pulse 120 H 05/10/21 11:23 Resp 19 05/10/21 08:00 BP 108/54 L 05/10/21 11:23 Pulse Ox 99 05/10/21 08:00 Body Mass Index 39.4 Const: General: no acute distress Orientation/consciousness: patient oriented x3 Eyes: EOM: EOMs intact bilaterally Neck: Other: RIJ temp HD catheter + Resp: Auscultation: diminished lung sounds Cardio: Rate: regular rate GI: Palpation (GI): Soft to palpation Neuro: General: patient oriented x3 and moves all extremities Objective Data Labs CBC & Chem 7: 05/10/21 05:56 05/10/21 05:56 Labs: Laboratory Results - last 24 hr 05/09/21 05/09/21 05/09/21 15:09 16:04 16:25 WBC RBC Hgb Hct MCV MCH MCHC RDW Plt Count MPV Absolute Nucleated RBC Nucleated RBC % (auto) PTT (Heparin Protocol) 40.1 L Sodium Potassium Chloride Carbon Dioxide Anion Gap BUN Creatinine Estim Creat Clear Calc Estimated GFR POC Glucose 123 H 174 H Random Glucose Calcium Magnesium 05/09/21 05/09/21 05/10/21 20:37 22:26 05:56 WBC RBC Hgb Hct MCV MCH MCHC RDW Plt Count MPV Absolute Nucleated RBC Nucleated RBC % (auto) PTT (Heparin Protocol) 47.3 L 63.9 D Sodium Potassium Chloride Carbon Dioxide Anion Gap BUN Creatinine Estim Creat Clear Calc Estimated GFR POC Glucose 164 H Random Glucose Calcium Magnesium 05/10/21 05/10/21 05/10/21 05:56 05:56 07:14 WBC 14.2 H RBC 2.55 L Hgb 7.8 L Hct 24.1 L MCV 94.5 MCH 30.6 MCHC 32.4 RDW 14.0 Plt Count 234 MPV 10.0 Absolute Nucleated RBC 0.000 Nucleated RBC % (auto) 0.0 PTT (Heparin Protocol) Sodium 131 L Potassium 3.2 L Chloride 98 Carbon Dioxide 21 L Anion Gap 15 BUN 20 H Creatinine 3.65 H Estim Creat Clear Calc 13.9 Estimated GFR 12 POC Glucose 145 H Random Glucose 144 H Calcium 7.3 L Magnesium 2.0 Microbiology Microbiology Results: Microbiology 05/04/21 03:49 Stool Stool Culture - Final Procedures Date of Service Date of Service: 05/10/21 Assessment & Plan Assessment and plan (1) Acute on chronic kidney failure: Status: Acute Assessment and Plan: 72F with CKD V approaching HD, presented with weakness, diarrhea- Likely ESRD now due to advanced CKD V, uremia, volume overload started HD 05/04 via temp cath placed 05/03 Shall follow up on biopsy results Needs Permcath by IR ? Friday. Next HD tomorrow Has an outpatient HD spot in [place] [facility] unit in [facility] ( [employer] Jessie Dougherty ( [phone]) Concur with rest of current management Time Spent With Patient Time: Total time spent is greater than 50% in coordination of care (as documented) at patient's floor/unit and/or counseling patient: Progress Note: Quality Stroke Does the patient have a stroke diagnosis?: No
[2021-05-10] MEDS: dilTIAZem HCL 125 MG in 0.9 % Sodium Chloride 100 ML 10 MG IVCONT (12:05)
[2021-05-10 16:47] LABS: Glucose, Whole Blood 265 mg/dL (60-115)
[2021-05-10 16:47] LABS: Glucose, Whole Blood 216 mg/dL (60-115)
[2021-05-10] MEDS: Insulin Lispro 100 UNIT/ML 3 ML VIAL SUBCUT (17:43)
[2021-05-10] MEDS: Heparin Sodium,Porcine/1/2NS 25,000 UNIT/250 ML IV.SOLN 6.41 UNIT IVCONT (17:44)
--- NOTE | 2021-05-10 20:46 | PC.NURSE ---
Cardizem Drip requested to restart cardizem drip due to pt's elevated HR's in the 40's. BP was checked and 1300 scheduled dose of lopressor was held due to soft BP per MD verbal order. Later on I notified him that pt's HR had decreased and BP's still soft and he stated to stop IV and wait 1 hour recheck BP then give Lopressor if BP stable. BP was checked and stable and lopressor was given, HR remain stable WNL Heparin Drip Pt's bag was due to change on 05/10 @ 0200, however it was changed when adjusment was made due to low PTTHD. Last PTTHD was normal, no changes ; reassessment due at next PPTHD lab draw.
[2021-05-10 21:10] LABS: Glucose, Whole Blood 120 mg/dL (60-115)
[2021-05-10] MEDS: Montelukast Sodium 10 MG TABLET PO (21:36)
[2021-05-10] MEDS: Atorvastatin Calcium 40 MG TABLET PO (21:36)
[2021-05-10] MEDS: Gabapentin 100 MG CAPSULE PO (21:36)
[2021-05-10] MEDS: Melatonin 3 MG TABLET 6 MG PO (21:43)
[2021-05-10 23:24] LABS: PTT Heparin Drip 50.5 SEC (53-77.9)
[2021-05-11] VITALS (15 sets, daily range): BP systolic 91–145; BP diastolic 41–66; PULSE 71–135; RESP 16–20; TEMP 36.1–37.2; O2SAT 94–100
[2021-05-11] MEDS: Heparin Sodium,Porcine 5,000 UNIT/ML VIAL 3700 UNIT IVPUSH (00:19)
[2021-05-11] MEDS: Levothyroxine Sodium 25 MCG TABLET PO (06:09)
[2021-05-11] MEDS: Omeprazole 20 MG CAPSULE.DR PO (06:09)
[2021-05-11 07:05] LABS: PTT Heparin Drip 90.6 SEC (53-77.9)
[2021-05-11 07:25] LABS: Glucose, Whole Blood 134 mg/dL (60-115)
[2021-05-11 07:35] LABS: Anion Gap 18 (12-20); Blood Urea Nitrogen 30 mg/dL (9-16); Carbon Dioxide 17 mmol/L (22-29); Chloride 96 mmol/L (96-108); Creatinine Clr Calc Pharmacy 9.9; Estimated Glomerular Filt Rate 8; Glucose Random 143 mg/dL (60-115); Potassium 3.5 mmol/L (3.3-5.1); Sodium 127 mmol/L (135-145)
--- NOTE | 2021-05-11 08:04 | PC.NURSE ---
Pt was planned to have permacath placed today at 0730, however pt is on a Heparin gtt for a small R basilic vein thrombosis. Per radiologist Dr Carvajal Heparin gtt needs to be paused for 4 hours prior to permacath placement, this RN was instructed to pause Heparin gtt as of 0700 this morning and permacath placement will occur around 1100. Oncoming RN and Dr Phelan made aware.
--- NOTE | 2021-05-11 08:56 | P.PNCA_ITS ---
Subjective Subjective Date of Service: 05/11/21 <MARVA Araiza - Last Filed: 05/11/21 09:19> 05/11/21 <Semaj Hayes MD - Last Filed: 05/11/21 15:29> Principal diagnosis: PAF, acute on chronic RF, anemia <MARVA Araiza - Last Filed: 05/11/21 09:19> Interval history: Cardiology follow up for PAF. Seen at 0830. Today seen while recieving hemodialysis. Reports breathing is comfortable. Wearing O2 with nasal cannula. No chest pains or palpitations. Reports having some low back discomfort. Lower legs have soreness to palpation, soft and look normal to her. <MARVA Araiza - Last Filed: 05/11/21 09:19> Review of Systems Review of Systems as above <MARVA Araiza - Last Filed: 05/11/21 09:19> Physical Exam Vital Signs: Last Vital Signs Temp 97.0 F 05/11/21 04:00 Pulse 71 05/11/21 04:00 Resp 18 05/11/21 04:00 BP 116/63 05/11/21 04:00 Pulse Ox 94 05/11/21 04:00 Body Mass Index 39.4 <MARVA Araiza - Last Filed: 05/11/21 09:19> Const General: cooperative, no acute distress, alert and awake <MARVA Araiza - Last Filed: 05/11/21 09:19> Orientation/consciousness: patient oriented x3 <MARVA Araiza - Last Filed: 05/11/21 09:19> Neck Other: Hemodialysis catheter right neck, laying on left side - unable to accurately assess for JVD <MARVA Araiza - Last Filed: 05/11/21 09:19> Resp Effort & Inspection: normal respiratory effort, able to speak in complete sentences and not labored <MARVA Araiza - Last Filed: 05/11/21 09:19> Auscultation: clear to auscultation bilaterally, no rales, no rhonchi and no wheezes <MARVA Araiza - Last Filed: 05/11/21 09:19> Cardio Palpation: normal PMI <Lovely SalcedoCHANDANAC - Last Filed: 05/11/21 09:19> Rate: regular rate <Lovely SalcedoCHANDANA Lamberto Last Filed: 05/11/21 09:19> Rhythm: abnormal rhythm irregularly irregular <[facility] Last Filed: 05/11/21 09:19> Heart sounds: S1 normal heart sound present and S2 normal heart sound present <Lovely SalcedoISELA - Last Filed: 05/11/21 09:19> GI Inspection: Yes normal to inspection <Lovely ISELA Salcedo - Last Filed: 05/11/21 09:19> Neuro General: patient oriented x3 <Lovely Mukherjee [facility] Last Filed: 05/11/21 09:19> Extrem Other: soft, nonpitting tissue <Lovely ISELA [facility]cedoLambertoDay[facility] Last Filed: 05/11/21 09:19> General: Yes normal to inspection <Lovely SalcedoISELA - Last Filed: 05/11/21 09:19> Objective Labs and Meds Result diagrams: : 05/10/21 05:56 05/11/21 05:59 <Lovely Mukherjee MatiasCHANDANA - Last Filed: 05/11/21 09:19> Lab results: Laboratory Results - last 24 hr 05/10/21 05/10/21 05/10/21 05:56 11:39 16:32 PTT (Heparin Protocol) Sodium Potassium Chloride Carbon Dioxide Anion Gap BUN Creatinine Estim Creat Clear Calc Estimated GFR POC Glucose 265 H 216 H Random Glucose Calcium Magnesium 2.0 05/10/21 05/10/21 05/11/21 21:04 22:32 05:59 PTT (Heparin Protocol) 50.5 L D Sodium 127 L Potassium 3.5 Chloride 96 Carbon Dioxide 17 L Anion Gap 18 BUN 30 H Creatinine 5.06 H* Estim Creat Clear Calc 9.9 Estimated GFR 8 POC Glucose 120 H Random Glucose 143 H Calcium 7.0 L Magnesium 05/11/21 05/11/21 05:59 07:22 PTT (Heparin Protocol) 90.6 H D Sodium Potassium Chloride Carbon Dioxide Anion Gap BUN Creatinine Estim Creat Clear Calc Estimated GFR POC Glucose 134 H Random Glucose Calcium Magnesium <MARVA Araiza - Last Filed: 05/11/21 09:19> Progress Note: A&P Assessment and plan (1) PAF (paroxysmal atrial fibrillation): Status: Acute <MARVA Araiza - Last Filed: 05/11/21 09:19> Assessment and Plan: Newer persistent Afib, first diagnosed earlier this month. Being tr eated with heart rate control. Not started on anticoagulation at that time due to anemia and need for further evaluation. Echocardiogram 04/20/21 showed EF 60- 65%, normal RV, normal left atrial size, mild pulmonary hypertension.? Now with readmission for acute on chronic kidney disease and has been start on dialysis. Afib rates have been elevated. She is on Metoprolol for rate control. Diltiazem drip had been used 3 days ago and stopped due to 2 three second pauses. Now only receiving Metoprolol. At this time, Tele shows afib rates better controlled 70- 120s. No reports of chest pains or heart palpitations.? Continue on Metoprolol 25mg QID for rate control. Can further titrate if needed for better rate control.? If still has issues with tachycardic then Diltiazem can be used. Ongoing tele monitoring while inpt. She is on heparin drip at present time for small thrombus in right basilic vein. Hgb yest am 7.8 which is down from 9.9 on admit. Stool occult + on 05/04. GI has seen, but unclear if they are aware of guiac + stool. Msg sent to hospitalist yesterday in regards to this. Recommend further evaluation of anemia and GI/ heme recommendation on use of oral anticoagulation on her. Recommend blood transfusion.?Unclear at present if able to use patient financial advocate oral anticoagulation on her.? We will follow <MARVA Araiza - Last Filed: 05/11/21 09:19> (2) Acute on chronic kidney failure: Status: Acute <MARVA Araiza - Last Filed: 05/11/21 09:19> Assessment and Plan: Followed by nephrology. Receiving dialysis. Notes indicate plan for permacath today. <MARVA Araiza - Last Filed: 05/11/21 09:19> (3) DVT of upper extremity (deep vein thrombosis): Status: Acute <MARVA Araiza - Last Filed: 05/11/21 09:19> Assessment and Plan: On heparin drip. Being managed by hospitalist. <CHANDANA Araiza - Last Filed: 05/11/21 09:19> Fall Risk Details Current Medications: Current Medications Acetaminophen (Acetaminophen 325 Mg Tablet) 650 mg PO Q6H PRN PRN Reason: Pain, Mild (Pain Scale 1-3) Last Admin: 05/07/21 22:26 Dose: 650 mg Documented by: Atorvastatin Calcium (Atorvastatin Calcium 40 Mg Tablet) 40 mg PO BEDTIME MARKIE Last Admin: 05/10/21 21:36 Dose: 40 mg Documented by: Cyanocobalamin (Cyanocobalamin (Vitamin B-12) 1,000 Mcg/Ml Vial) 1,000 mcg IM Q28D MARKIE Dextrose (Dextrose 50 % 25 Gm/50 Ml Vial) 25 gm IVPUSH Q15M PRN; Protocol PRN Reason: per Hypoglycemia Standing Ord. Gabapentin (Gabapentin 100 Mg Capsule) 100 mg PO BEDTIME MARKIE Last Admin: 05/10/21 21:36 Dose: 100 mg Documented by: Glucose (Glucose Gel 15 Gm Gel..Gram.) 15 gm PO Q15M PRN; Protocol PRN Reason: per Hypoglycemia Standing Ord. Heparin Sodium (Porcine) (Heparin Sodium,Porcine 5,000 Unit/Ml Vial) 3,700 unit 40 unit/kg (3700 unit) IVPUSH PROTOCOL BOLUS PRN; Protocol PRN Reason: 40 unit/kg - Heparin Protocol Last Admin: 05/11/21 00:19 Dose: 3,700 unit Documented by: Heparin Sodium (Porcine) (Heparin Sodium,Porcine 5,000 Unit/Ml Vial) 7,300 unit 80 unit/kg (7300 unit) IVPUSH PROTOCOL BOLUS PRN; Protocol PRN Reason: 80 unit/kg - Heparin Protocol Hydromorphone HCl (Hydromorphone Hcl 0.5 Mg/0.5 Ml Syringe) 0.5 mg IVPUSH Q4H PRN; Protocol PRN Reason: moderate pain Last Admin: 05/09/21 23:53 Dose: 0.5 mg Documented by: Heparin Sodium/Sodium Chloride () 25,000 unit in 250 mls @ 0 mls/hr IVCONT .Q0M [facility]; Protocol Last Titration: 05/11/21 07:00 Dose: 0 units/kg/hr, 0 mls/hr Documented by: Diltiazem HCl 125 mg/ Sodium (Chloride) 125 mls @ 0 mls/hr IVCONT .Q0M [facility]; Protocol Last Titration: 05/10/21 16:10 Dose: 0 mg/hr, 0 mls/hr Documented by: Insulin Human Lispro (Insulin Lispro 100 Unit/Ml 3 Ml Vial) 0 unit SUBCUT QIDACHS [facility]; Protocol Last Admin: 05/11/21 08:17 Dose: Not Given Documented by: Levothyroxine Sodium (Levothyroxine Sodium 25 Mcg Tablet) 25 mcg PO DAILY@0600 [facility] Last Admin: 05/11/21 06:09 Dose: 25 mcg Documented by: Loratadine (Loratadine 10 Mg Tablet) 10 mg PO DAILY [facility] Last Admin: 05/10/21 10:45 Dose: 10 mg Documented by: Magnesium Hydroxide (Milk Of Magnesia 30 Ml Oral.Susp) 15 ml PO BID PRN PRN Reason: Constipation Melatonin (Melatonin 3 Mg Tablet) 6 mg PO BEDTIME PRN PRN Reason: Insomnia Last Admin: 05/10/21 21:43 Dose: 6 mg Documented by: Metoprolol Tartrate (Metoprolol Tartrate 25 Mg Tablet) 25 mg PO QID [facility]; Protocol Last Admin: 05/10/21 21:43 Dose: 25 mg Documented by: Montelukast Sodium (Montelukast Sodium 10 Mg Tablet) 10 mg PO BEDTIME [facility] Last Admin: 05/10/21 21:36 Dose: 10 mg Documented by: Nitroglycerin (Nitroglycerin 0.4 Mg Tab.Subl) 0.4 mg SUBLINGUAL Q5MX3 PRN PRN Reason: chest Omeprazole (Omeprazole 20 Mg Capsule.Dr) 20 mg PO DAILY@0630 [facility] Last Admin: 05/11/21 06:09 Dose: 20 mg Documented by: Psyllium Hydrophilic Mucilloid (Psyllium Seed 3.4 Gm Powd.Pack) 3.4 gm PO DAILY [facility] Last Admin: 05/10/21 10:45 Dose: 3.4 gm Documented by: Senna (Sennosides 8.6 Mg Tablet) 17.2 mg PO BEDTIME PRN PRN Reason: Constipation Sodium Chloride (0.9 % Sodium Chloride Flush 3 Ml Syringe) 3 ml IVFLUSH QSHIFT [facility] Last Admin: 05/11/21 01:45 Dose: Not Given Documented by: Sodium Chloride (0.9 % Sodium Chloride Flush 10 Ml Syringe) 5 ml IVFLUSH TID [facility] Last Admin: 05/10/21 21:54 Dose: Not Given Documented by: Vitamin D (Cholecalciferol (Vitamin D3) 25 Mcg Tablet) 25 mcg PO DAILY [facility] Last Admin: 05/10/21 10:45 Dose: 25 mcg Documented by: <MARVA Araiza - Last Filed: 05/11/21 09:19> Time Spent With Patient Time: Total time spent is greater than 50% in coordination of care (as documented) at patient's floor/unit and/or counseling patient: 24 <MARVA Araiza - Last Filed: 05/11/21 09:19> Time with patient: 15 - 24 minutes <MARVA Araiza - Last Filed: 05/11/21 09:19> Progress Note: Quality Stroke Does the patient have a stroke diagnosis?: No <MARVA Araiza - Last Filed: 05/11/21 09:19> Procedures Date of Service Date of Service: 05/11/21 <MARVA Araiza - Last Filed: 05/11/21 09:19>
--- NOTE | 2021-05-11 11:19 | PM.PNNEP ---
Subjective Subjective Date of Service: 05/11/21 Principal diagnosis: PAF, acute on chronic RF, anemia Interval history: Feels improved. Seen on HD AM. Awaiting permcath Physical Exam Vital Signs: Vital Signs: Last Vital Signs Temp 97.0 F 05/11/21 04:00 Pulse 71 05/11/21 04:00 Resp 18 05/11/21 04:00 BP 116/63 05/11/21 04:00 Pulse Ox 94 05/11/21 04:00 Body Mass Index 39.4 Const: General: comfortable Orientation/consciousness: patient oriented x3 HENMT: Head: Yes normocephalic Eyes: EOM: EOMs intact bilaterally Neck: Other: Temp HD catheter in place Resp: Auscultation: diminished lung sounds Cardio: Rate: regular rate GI: Palpation (GI): Soft to palpation Neuro: General: patient oriented x3 and moves all extremities Objective Data Labs CBC & Chem 7: 05/10/21 05:56 05/11/21 05:59 Labs: Laboratory Results - last 24 hr 05/10/21 05/10/21 05/10/21 11:39 16:32 21:04 PTT (Heparin Protocol) Sodium Potassium Chloride Carbon Dioxide Anion Gap BUN Creatinine Estim Creat Clear Calc Estimated GFR POC Glucose 265 H 216 H 120 H Random Glucose Calcium Blood Type Antibody Screen 05/10/21 05/11/21 05/11/21 22:32 05:59 05:59 PTT (Heparin Protocol) 50.5 L D 90.6 H D Sodium 127 L Potassium 3.5 Chloride 96 Carbon Dioxide 17 L Anion Gap 18 BUN 30 H Creatinine 5.06 H* Estim Creat Clear Calc 9.9 Estimated GFR 8 POC Glucose Random Glucose 143 H Calcium 7.0 L Blood Type Antibody Screen 05/11/21 05/11/21 07:22 07:46 PTT (Heparin Protocol) Sodium Potassium Chloride Carbon Dioxide Anion Gap BUN Creatinine Estim Creat Clear Calc Estimated GFR POC Glucose 134 H Random Glucose Calcium Blood Type A Positive Antibody Screen NEGATIVE Microbiology Microbiology Results: Microbiology 05/04/21 03:49 Stool Stool Culture - Final Procedures Date of Service Date of Service: 05/11/21 Assessment & Plan Assessment and plan (1) Acute on chronic kidney failure: Status: Acute Assessment and Plan: 72F with CKD V approaching HD, presented with weakness, diarrhea- Likely ESRD now due to advanced CKD V, uremia, volume overload started HD 05/04 via temp cath placed 05/03 Shall follow up on biopsy results as outpatient Seen on HD AM. ? Permcatisatu this afternoon Has an outpatient HD spot in [place] [facility] unit in [facility] ( Senior Database Programmer Jessie Dougherty ( [phone]) Concur with rest of current management Time Spent With Patient Time: Total time spent is greater than 50% in coordination of care (as documented) at patient's floor/unit and/or counseling patient: Progress Note: Quality Stroke Does the patient have a stroke diagnosis?: No
[2021-05-11 12:22] LABS: Glucose, Whole Blood 124 mg/dL (60-115)
[2021-05-11] MEDS: Loratadine 10 MG TABLET PO (12:36)
[2021-05-11] MEDS: Cholecalciferol (Vitamin D3) 25 MCG TABLET PO (12:36)
--- NOTE | 2021-05-11 13:48 | MHC.CM.PN ---
dc plan is for patient to go to for STR and HD. this may happen tomorrow, 05/12/21 d/t her sched. to get permacath placed here at [facility] at 3:30. if she returns to the floor at a resonable time then there is a chance she will dc to tonight - is ready for her. a new HCP has been completed and we are waiting for a covid result for her to go to snf. pt's HD ch time will be 5:15 am ,, fri; this week coming d/t holiday the HD days will be ,fri. sarath is aware of all this as well as rn caring for patient. cm to cont. to follow.
[2021-05-11] MEDS: Metoprolol Tartrate 25 MG TABLET PO ×2 (14:27→20:54)
[2021-05-11] MEDS: dilTIAZem HCL 125 MG in 0.9 % Sodium Chloride 100 ML 10 MG IVCONT (14:28)
[2021-05-11] MEDS: dilTIAZem HCL 50 MG/10 ML VIAL 10 MG IVPUSH (14:28)
--- NOTE | 2021-05-11 14:44 | P.PNIM_ITS ---
Subjective Subjective Date of Service: 05/11/21 Interval History: patient was seen and evaluated this morning Laying in bed, feels better today HR better controlled overnight , started Denies any fever, chills or shortness of breath No reported other overnight events. Systemic review: No fever, chills but complain of pain and weakness No chest pain, palpitation No shortness of breath or coughing No abdominal pain, nausea or vomiting No urinary symptoms Physical Exam Vital Signs: Vital Signs: Last Vital Signs Temp 98.1 F 05/11/21 12:00 Pulse 135 H 05/11/21 14:28 Resp 20 05/11/21 12:00 BP 101/60 05/11/21 14:28 Pulse Ox 97 05/11/21 12:00 Body Mass Index 39.4 Const: Other: Constitutional : Alert, oriented, looks weak Neck : Normal inspection, Supple, dialysis line in place Cardiovascular : RRR, S1 S2, no lower extremity edema Respiratory : Fair bilateral air entry, no crackles, wheezes or rhonchi Gastrointestinal: soft, lax, Normal bowel sounds, Non tender Skin : Warm, Dry, swelling improved Neurological : Alert & oriented x2, No focal deficit Objective Data Active Medications Acetaminophen (Acetaminophen 325 Mg Tablet) 650 mg PO Q6H PRN PRN Reason: Pain, Mild (Pain Scale 1-3) Last Admin: 05/07/21 22:26 Dose: 650 mg Documented by: NORMA Atorvastatin Calcium (Atorvastatin Calcium 40 Mg Tablet) 40 mg PO BEDTIME [facility] Last Admin: 05/10/21 21:36 Dose: 40 mg Documented by: ZOE Cyanocobalamin (Cyanocobalamin (Vitamin B-12) 1,000 Mcg/Ml Vial) 1,000 mcg IM Q28D [facility] Dextrose (Dextrose 50 % 25 Gm/50 Ml Vial) 25 gm IVPUSH Q15M PRN; Protocol PRN Reason: per Hypoglycemia Standing Ord. Gabapentin (Gabapentin 100 Mg Capsule) 100 mg PO BEDTIME [facility] Last Admin: 05/10/21 21:36 Dose: 100 mg Documented by: ZOE Glucose (Glucose Gel 15 Gm Gel..Gram.) 15 gm PO Q15M PRN; Protocol PRN Reason: per Hypoglycemia Standing Ord. Heparin Sodium (Porcine) (Heparin Sodium,Porcine 5,000 Unit/Ml Vial) 3,700 unit 40 unit/kg (3700 unit) IVPUSH PROTOCOL BOLUS PRN; Protocol PRN Reason: 40 unit/kg - Heparin Protocol Last Admin: 05/11/21 00:19 Dose: 3,700 unit Documented by: ZOE Heparin Sodium (Porcine) (Heparin Sodium,Porcine 5,000 Unit/Ml Vial) 7,300 unit 80 unit/kg (7300 unit) IVPUSH PROTOCOL BOLUS PRN; Protocol PRN Reason: 80 unit/kg - Heparin Protocol Hydromorphone HCl (Hydromorphone Hcl 0.5 Mg/0.5 Ml Syringe) 0.5 mg IVPUSH Q4H PRN; Protocol PRN Reason: moderate pain Last Admin: 05/09/21 23:53 Dose: 0.5 mg Documented by: BAYLEE Heparin Sodium/Sodium Chloride () 25,000 unit in 250 mls @ 0 mls/hr IVCONT .Q0M [facility]; Protocol Last Titration: 05/11/21 07:00 Dose: 0 units/kg/hr, 0 mls/hr Documented by: ZOE Cosigned by: JONATHAN Diltiazem HCl 125 mg/ Sodium (Chloride) 125 mls @ 0 mls/hr IVCONT .Q0M [facility]; Protocol Last Admin: 05/11/21 14:28 Dose: 10 mg/hr, 10 mls/hr Documented by: JONATHAN Magnesium Sulfate (Magnesium Sulfate/H2o) 2 gm in 50 mls @ 25 mls/hr IV ONCE ONE Stop: 05/11/21 16:08 Insulin Human Lispro (Insulin Lispro 100 Unit/Ml 3 Ml Vial) 0 unit SUBCUT QIDACHS [facility]; Protocol Last Admin: 05/11/21 12:36 Dose: Not Given Documented by: JONATHAN Non-Admin Reason: No Insulin Coverage Levothyroxine Sodium (Levothyroxine Sodium 25 Mcg Tablet) 25 mcg PO DAILY@0600 [facility] Last Admin: 05/11/21 06:09 Dose: 25 mcg Documented by: ZOE Loratadine (Loratadine 10 Mg Tablet) 10 mg PO DAILY [facility] Last Admin: 05/11/21 12:36 Dose: 10 mg Documented by: JONATHAN Magnesium Hydroxide (Milk Of Magnesia 30 Ml Oral.Susp) 15 ml PO BID PRN PRN Reason: Constipation Melatonin (Melatonin 3 Mg Tablet) 6 mg PO BEDTIME PRN PRN Reason: Insomnia Last Admin: 05/10/21 21:43 Dose: 6 mg Documented by: ZOE Metoprolol Tartrate (Metoprolol Tartrate 25 Mg Tablet) 25 mg PO QID [facility]; Protocol Last Admin: 05/11/21 14:27 Dose: 25 mg Documented by: JONATHAN Montelukast Sodium (Montelukast Sodium 10 Mg Tablet) 10 mg PO BEDTIME [facility] Last Admin: 05/10/21 21:36 Dose: 10 mg Documented by: ZOE Nitroglycerin (Nitroglycerin 0.4 Mg Tab.Subl) 0.4 mg SUBLINGUAL Q5MX3 PRN PRN Reason: chest Omeprazole (Omeprazole 20 Mg Capsule.Dr) 20 mg PO DAILY@0630 [facility] Last Admin: 05/11/21 06:09 Dose: 20 mg Documented by: ZOE Psyllium Hydrophilic Mucilloid (Psyllium Seed 3.4 Gm Powd.Pack) 3.4 gm PO DAILY [facility] Last Admin: 05/11/21 12:36 Dose: 3.4 gm Documented by: JONATHAN Senna (Sennosides 8.6 Mg Tablet) 17.2 mg PO BEDTIME PRN PRN Reason: Constipation Sodium Chloride (0.9 % Sodium Chloride Flush 3 Ml Syringe) 3 ml IVFLUSH QSHIFT [facility] Last Admin: 05/11/21 11:42 Dose: Not Given Documented by: JONATHAN Non-Admin Reason: Off unit: Dialysis Sodium Chloride (0.9 % Sodium Chloride Flush 10 Ml Syringe) 5 ml IVFLUSH TID [facility] Last Admin: 05/11/21 11:42 Dose: Not Given Documented by: JONATHAN Non-Admin Reason: Off unit: Dialysis Vitamin D (Cholecalciferol (Vitamin D3) 25 Mcg Tablet) 25 mcg PO DAILY [facility] Last Admin: 05/11/21 12:36 Dose: 25 mcg Documented by: JONATHAN Labs CBC & Chem 7: 05/10/21 05:56 05/11/21 05:59 Labs: Laboratory Results - last 24 hr 05/10/21 05/10/21 05/10/21 11:39 16:32 21:04 PTT (Heparin Protocol) Anion Gap Estim Creat Clear Calc Estimated GFR POC Glucose 265 H 216 H 120 H Random Glucose Calcium Blood Type Antibody Screen Crossmatch 05/10/21 05/11/21 05/11/21 22:32 05:59 05:59 PTT (Heparin Protocol) 50.5 L D 90.6 H D Anion Gap 18 Estim Creat Clear Calc 9.9 Estimated GFR 8 POC Glucose Random Glucose 143 H Calcium 7.0 L Blood Type Antibody Screen Crossmatch 05/11/21 05/11/21 05/11/21 07:22 07:46 12:18 PTT (Heparin Protocol) Anion Gap Estim Creat Clear Calc Estimated GFR POC Glucose 134 H 124 H Random Glucose Calcium Blood Type A Positive Antibody Screen NEGATIVE Crossmatch See Detail Assessment and Plan (1) DVT of upper extremity (deep vein thrombosis): Status: Acute (2) Atrial fibrillation with rapid ventricular response: Status: Acute (3) ESRD needing dialysis: Status: Acute Assessment and Plan: 72F with CKD V approaching HD, presented with weakness, diarrhea paroxysmal atrial fibrillation, with RVR holding toprol, started lopressor 25mg q6h not started on A/C previously due to concern for bleeding, on iv heparin now for RUE thrombus start diltiazem infusion (initially delayed due to lack of access, now with midline) generalized weakness due to advanced CKD V, uremia ESRD requiring HD started HD 05/04 via temp cath placed 05/03 follow up biopsy, permacath to be placed today monitor bmp PT eval Basalic V. DVT small right basilic vein thrombosis. treat with iv heparin for now as planning permacath, alf anticoagulation likely to be eliquis 5mg bid without loading DM inuslin HTN toprol changed to lopressor holding nifedipine to allow for meds for rate control hypothyroid synthroid DVT ppx Heparin Quality Stroke Does the patient have a stroke diagnosis?: No VTE Prior VTE?: No VTE Risk Level:: Medical - moderate - high VTE Device Contraindication: N/A - Device Ordered VTE Drug Contraindication: Treatment Not Indicated
--- NOTE | 2021-05-11 14:55 | P.CONAN_ITS ---
[facility] Active Problems Active Problems: All Active Problems (Updated 05/09/21 @ 10:31 by Marvel green MD) DVT of upper extremity (deep vein thrombosis) (Acute) PAF (paroxysmal atrial fibrillation) (Acute) Metabolic acidosis (Acute) Pleural effusion on left (Acute) Diarrhea (Acute) Acute on chronic kidney failure (Acute) GERD (gastroesophageal reflux disease) (Acute) Hypothyroidism (Acute) Paroxysmal atrial fibrillation (Acute) Pure hypercholesterolemia (Acute) Chronic kidney disease, stage V (Acute) Benign essential hypertension (Acute) Type 2 diabetes mellitus (Acute) Diabetes (Acute) Anemia (Acute) New onset atrial fibrillation (Acute) Nephrotic range proteinuria (Acute) Chronic kidney disease, stage 4 (severe) (Acute) Cellulitis (Acute) HLD (hyperlipidemia) (Acute) SHIELA (generalized anxiety disorder) (Acute) Allergic rhinitis (Acute) CAD (coronary artery disease) (Acute) Iron deficiency (Acute) Pernicious anemia (Acute) Osteoarthritis (Acute) Obese (Acute) Acute kidney injury superimposed on chronic kidney disease (Acute) Past Medical History Medical History Arthritis Benign essential hypertension Chronic kidney disease, stage V GERD (gastroesophageal reflux disease) Hypothyroidism Paroxysmal atrial fibrillation Pure hypercholesterolemia Toe amputee Type 2 diabetes mellitus Family History Family history of problems with anesthesia: No Surgical History Surgical History Hx of appendectomy History of Problems with Anesthesia: No Social History Social History Household Members: None Household Members Other:: self, son lives close by Housing: House Do you presently have visiting nurse or other home services: No Alcohol intake: never Patient Tobacco Use Status: Never used Tobacco Tobacco use type: Cigarette e-Cigarette/Vaping Use: Never Used Second Hand Smoke Exposure: No service: No Current occupational status: retired Meds Allergies Allergy/AdvReac Type Severity Reaction Status Date / Time No Known Allergies Allergy Verified 04/26/21 10:46 Active Medications: Current Medications Acetaminophen (Acetaminophen 325 Mg Tablet) 650 mg PO Q6H PRN PRN Reason: Pain, Mild (Pain Scale 1-3) Last Admin: 05/07/21 22:26 Dose: 650 mg Documented by: Atorvastatin Calcium (Atorvastatin Calcium 40 Mg Tablet) 40 mg PO BEDTIME MARKIE Last Admin: 05/10/21 21:36 Dose: 40 mg Documented by: Cyanocobalamin (Cyanocobalamin (Vitamin B-12) 1,000 Mcg/Ml Vial) 1,000 mcg IM Q28D MARKIE Dextrose (Dextrose 50 % 25 Gm/50 Ml Vial) 25 gm IVPUSH Q15M PRN; Protocol PRN Reason: per Hypoglycemia Standing Ord. Diltiazem HCl (Diltiazem Hcl 30 Mg Tablet) 30 mg PO QID MARKIE; Protocol Gabapentin (Gabapentin 100 Mg Capsule) 100 mg PO BEDTIME MARKIE Last Admin: 05/10/21 21:36 Dose: 100 mg Documented by: Glucose (Glucose Gel 15 Gm Gel..Gram.) 15 gm PO Q15M PRN; Protocol PRN Reason: per Hypoglycemia Standing Ord. Heparin Sodium (Porcine) (Heparin Sodium,Porcine 5,000 Unit/Ml Vial) 3,700 unit 40 unit/kg (3700 unit) IVPUSH PROTOCOL BOLUS PRN; Protocol PRN Reason: 40 unit/kg - Heparin Protocol Last Admin: 05/11/21 00:19 Dose: 3,700 unit Documented by: Heparin Sodium (Porcine) (Heparin Sodium,Porcine 5,000 Unit/Ml Vial) 7,300 unit 80 unit/kg (7300 unit) IVPUSH PROTOCOL BOLUS PRN; Protocol PRN Reason: 80 unit/kg - Heparin Protocol Hydromorphone HCl (Hydromorphone Hcl 0.5 Mg/0.5 Ml Syringe) 0.5 mg IVPUSH Q4H PRN; Protocol PRN Reason: moderate pain Last Admin: 05/09/21 23:53 Dose: 0.5 mg Documented by: Heparin Sodium/Sodium Chloride () 25,000 unit in 250 mls @ 0 mls/hr IVCONT .Q0M MARKIE; Protocol Last Titration: 05/11/21 07:00 Dose: 0 units/kg/hr, 0 mls/hr Documented by: Diltiazem HCl 125 mg/ Sodium (Chloride) 125 mls @ 0 mls/hr IVCONT .Q0M MARKIE; Protocol Last Admin: 05/11/21 14:28 Dose: 10 mg/hr, 10 mls/hr Documented by: Magnesium Sulfate (Magnesium Sulfate/H2o) 2 gm in 50 mls @ 25 mls/hr IV ONCE ONE Stop: 11/19/21 16:08 Insulin Human Lispro (Insulin Lispro 100 Unit/Ml 3 Ml Vial) 0 unit SUBCUT QIDACHS [facility]; Protocol Last Admin: 05/11/21 12:36 Dose: Not Given Documented by: Levothyroxine Sodium (Levothyroxine Sodium 25 Mcg Tablet) 25 mcg PO DAILY@0600 [facility] Last Admin: 05/11/21 06:09 Dose: 25 mcg Documented by: Loratadine (Loratadine 10 Mg Tablet) 10 mg PO DAILY [facility] Last Admin: 05/11/21 12:36 Dose: 10 mg Documented by: Magnesium Hydroxide (Milk Of Magnesia 30 Ml Oral.Susp) 15 ml PO BID PRN PRN Reason: Constipation Melatonin (Melatonin 3 Mg Tablet) 6 mg PO BEDTIME PRN PRN Reason: Insomnia Last Admin: 05/10/21 21:43 Dose: 6 mg Documented by: Metoprolol Tartrate (Metoprolol Tartrate 25 Mg Tablet) 25 mg PO BID [facility]; Protocol Montelukast Sodium (Montelukast Sodium 10 Mg Tablet) 10 mg PO BEDTIME [facility] Last Admin: 05/10/21 21:36 Dose: 10 mg Documented by: Nitroglycerin (Nitroglycerin 0.4 Mg Tab.Subl) 0.4 mg SUBLINGUAL [id number] PRN PRN Reason: chest Omeprazole (Omeprazole 20 Mg Capsule.Dr) 20 mg PO DAILY@0630 [facility] Last Admin: 05/11/21 06:09 Dose: 20 mg Documented by: Psyllium Hydrophilic Mucilloid (Psyllium Seed 3.4 Gm Powd.Pack) 3.4 gm PO DAILY [facility] Last Admin: 05/11/21 12:36 Dose: 3.4 gm Documented by: Senna (Sennosides 8.6 Mg Tablet) 17.2 mg PO BEDTIME PRN PRN Reason: Constipation Sodium Chloride (0.9 % Sodium Chloride Flush 3 Ml Syringe) 3 ml IVFLUSH QSHIFT [facility] Last Admin: 05/11/21 11:42 Dose: Not Given Documented by: Sodium Chloride (0.9 % Sodium Chloride Flush 10 Ml Syringe) 5 ml IVFLUSH TID [facility] Last Admin: 05/11/21 11:42 Dose: Not Given Documented by: Vitamin D (Cholecalciferol (Vitamin D3) 25 Mcg Tablet) 25 mcg PO DAILY [facility] Last Admin: 05/11/21 12:36 Dose: 25 mcg Documented by: Home Medications Medication Instructions Recorded Confirmed Last Taken Type cefuroxime axetil 250 mg tablet 250 mg PO BID tab 04/26/21 05/02/21 05/02/21 History tramadol 50 mg tablet 1 tab PO DAILY PRN 05/02/21 05/02/21 Unknown History Exam Exam Date and Time: May 11, 2021 1455 Height,Weight and Vital Signs: Height 5 ft Weight 91.626 kg Last Vital Signs Temp 98.1 F 05/11/21 12:00 Pulse 135 H 05/11/21 14:28 Resp 20 05/11/21 12:00 BP 101/60 05/11/21 14:28 Pulse Ox 97 05/11/21 12:00 Pertinent Lab Results Pertinent Lab Results: Laboratory Tests 05/02/21 05/02/21 05/02/21 16:17 16:17 21:02 WBC 14.8 H RBC 3.22 L Hgb 9.9 L Hct 29.4 L MCV 91.3 MCH 30.7 MCHC 33.7 RDW 13.4 Plt Count 298 MPV 10.0 Immature Gran % (Auto) 0.5 H Neut % (Auto) 78.4 H Lymph % (Auto) 10.0 L Schuyler % (Auto) 5.9 Eos % (Auto) 4.9 H Baso % (Auto) 0.3 Lymph # (Auto) 1.5 Schuyler # (Auto) 0.9 Eos # (Auto) 0.7 H Baso # (Auto) 0.1 Abs Immat Gran (auto) 0.08 H Absolute Neuts (auto) 11.6 H Absolute Nucleated RBC 0.000 Nucleated RBC % (auto) 0.0 PT INR APTT PTT (Heparin Protocol) Sodium 132 L Potassium 4.2 D Chloride 99 Carbon Dioxide 18 L Anion Gap 19 BUN 67 H D Creatinine 6.70 H* Estim Creat Clear Calc 7.5 Estimated GFR 6 POC Glucose 160 H Random Glucose 187 H Fasting Glucose Calcium 6.6 L Magnesium Total Bilirubin 0.5 AST 24 ALT 15 Alkaline Phosphatase 117 Troponin I High Sens Total Protein 6.1 L Albumin 3.0 L Stool Occult Blood Stool Leukocytes, Qual C. difficile Tox B Gene COVID-19 (GLENNA) COVID-19 Clin Com Hep Bs Antigen Hep Bs Antibody Hep B Core Total Ab Blood Type Antibody Screen Crossmatch 05/03/21 05/03/21 05/03/21 06:57 07:37 08:40 WBC RBC Hgb Hct MCV MCH MCHC RDW Plt Count MPV Immature Gran % (Auto) Neut % (Auto) Lymph % (Auto) Schuyler % (Auto) Eos % (Auto) Baso % (Auto) Lymph # (Auto) [place]uyler # (Auto) Eos # (Auto) Baso # (Auto) Abs Immat Gran (auto) Absolute Neuts (auto) Absolute Nucleated RBC Nucleated RBC % (auto) PT INR APTT PTT (Heparin Protocol) Sodium 131 L Potassium 4.3 Chloride 100 Carbon Dioxide 17 L Anion Gap 18 BUN 62 H Creatinine 6.45 H* Estim Creat Clear Calc 7.8 Estimated GFR 6 POC Glucose 132 H Random Glucose 129 H Fasting Glucose Calcium 6.6 L Magnesium Total Bilirubin AST ALT Alkaline Phosphatase Troponin I High Sens Total Protein Albumin Stool Occult Blood Stool Leukocytes, Qual C. difficile Tox B Gene COVID-19 (GLENNA) Negative [email or web address] Com See Note Hep Bs Antigen Hep Bs Antibody Hep B Core Total Ab Blood Type Antibody Screen Crossmatch 05/03/21 05/03/21 05/03/21 12:53 13:53 17:35 WBC RBC Hgb Hct MCV MCH MCHC RDW Plt Count MPV Immature Gran % (Auto) Neut % (Auto) Lymph % (Auto) [place]uyler % (Auto) Eos % (Auto) Baso % (Auto) Lymph # (Auto) [place]uyler # (Auto) Eos # (Auto) Baso # (Auto) Abs Immat Gran (auto) Absolute Neuts (auto) Absolute Nucleated RBC Nucleated RBC % (auto) PT 12.4 INR 1.1 APTT 42.6 H PTT (Heparin Protocol) Sodium Potassium Chloride Carbon Dioxide Anion Gap BUN Creatinine Estim Creat Clear Calc Estimated GFR POC Glucose 168 H 145 H Random Glucose Fasting Glucose Calcium Magnesium Total Bilirubin AST ALT Alkaline Phosphatase Troponin I High Sens Total Protein Albumin Stool Occult Blood Stool Leukocytes, Qual C. difficile Tox B Gene COVID-19 (GLENNA) COVID-[employer] Com Hep Bs Antigen Hep Bs Antibody Hep B Core Total Ab Blood Type Antibody Screen Crossmatch 05/03/21 05/04/21 05/04/21 19:35 03:49 03:49 WBC RBC Hgb Hct MCV MCH MCHC RDW Plt Count MPV Immature Gran % (Auto) Neut % (Auto) Lymph % (Auto) Schuyler % (Auto) Eos % (Auto) Baso % (Auto) Lymph # (Auto) [place]uyler # (Auto) Eos # (Auto) Baso # (Auto) Abs Immat Gran (auto) Absolute Neuts (auto) Absolute Nucleated RBC Nucleated RBC % (auto) PT INR APTT PTT (Heparin Protocol) Sodium Potassium Chloride Carbon Dioxide Anion Gap BUN Creatinine Estim Creat Clear Calc Estimated GFR POC Glucose 162 H Random Glucose Fasting Glucose Calcium Magnesium Total Bilirubin AST ALT Alkaline Phosphatase Troponin I High Sens Total Protein Albumin Stool Occult Blood Stool Leukocytes, Qual NEGATIVE C. difficile Tox B Gene NEGATIVE COVID-19 (GLENNA) COVID-19 Clin Com Hep Bs Antigen Hep Bs Antibody Hep B Core Total Ab Blood Type Antibody Screen Crossmatch 05/04/21 05/04/21 05/04/21 03:49 05:17 05:17 WBC 15.0 H RBC 2.88 L Hgb 9.0 L Hct 26.3 L MCV 91.3 MCH 31.3 MCHC 34.2 RDW 13.5 Plt Count 307 MPV 9.8 Immature Gran % (Auto) Neut % (Auto) Lymph % (Auto) [place]uyler % (Auto) Eos % (Auto) Baso % (Auto) Lymph # (Auto) [place]uyler # (Auto) Eos # (Auto) Baso # (Auto) Abs Immat Gran (auto) Absolute Neuts (auto) Absolute Nucleated RBC 0.000 Nucleated RBC % (auto) 0.0 PT INR APTT PTT (Heparin Protocol) Sodium 129 L Potassium 4.4 Chloride 98 Carbon Dioxide 17 L Anion Gap 18 BUN 67 H Creatinine 6.83 H* Estim Creat Clear Calc 7.4 Estimated GFR 6 POC Glucose Random Glucose Fasting Glucose 92 Calcium 6.6 L Magnesium Total Bilirubin AST ALT Alkaline Phosphatase Troponin I High Sens Total Protein Albumin Stool Occult Blood POSITIVE Stool Leukocytes, Qual C. difficile Tox B Gene COVID-19 (GLENNA) COVID-19 Clin Com Hep Bs Antigen Hep Bs Antibody Hep B Core Total Ab Blood Type Antibody Screen Crossmatch 05/04/21 05/04/21 05/04/21 05:17 07:20 12:06 WBC RBC Hgb Hct MCV MCH MCHC RDW Plt Count MPV Immature Gran % (Auto) Neut % (Auto) Lymph % (Auto) Schuyler % (Auto) Eos % (Auto) Baso % (Auto) Lymph # (Auto) [place]yler # (Auto) Eos # (Auto) Baso # (Auto) Abs Immat Gran (auto) Absolute Neuts (auto) Absolute Nucleated RBC Nucleated RBC % (auto) PT INR APTT PTT (Heparin Protocol) Sodium Potassium Chloride Carbon Dioxide Anion Gap BUN Creatinine Estim Creat Clear Calc Estimated GFR POC Glucose 95 113 Random Glucose Fasting Glucose Calcium Magnesium Total Bilirubin AST ALT Alkaline Phosphatase Troponin I High Sens Total Protein Albumin Stool Occult Blood Stool Leukocytes, Qual C. difficile Tox B Gene COVID-19 (GLENNA) COVID-19 Clin Com Hep Bs Antigen Negative Hep Bs Antibody NONREACTIVE Hep B Core Total Ab Nonreactive Blood Type Antibody Screen Crossmatch 05/04/21 05/04/21 05/05/21 15:25 19:50 05:09 WBC 12.8 H RBC 2.94 L Hgb 8.9 L Hct 27.6 L MCV 93.9 MCH 30.3 MCHC 32.2 RDW 13.3 Plt Count 207 D MPV 11.2 Immature Gran % (Auto) Neut % (Auto) Lymph % (Auto) [place]uyler % (Auto) Eos % (Auto) Baso % (Auto) Lymph # (Auto) [place]uyler # (Auto) Eos # (Auto) Baso # (Auto) Abs Immat Gran (auto) Absolute Neuts (auto) Absolute Nucleated RBC 0.000 Nucleated RBC % (auto) 0.0 PT INR APTT PTT (Heparin Protocol) Sodium Potassium Chloride Carbon Dioxide Anion Gap BUN Creatinine Estim Creat Clear Calc Estimated GFR POC Glucose 195 H 199 H Random Glucose Fasting Glucose Calcium Magnesium Total Bilirubin AST ALT Alkaline Phosphatase Troponin I High Sens Total Protein Albumin Stool Occult Blood Stool Leukocytes, Qual C. difficile Tox B Gene COVID-19 (GLENNA) COVID-19 Clin Com Hep Bs Antigen Hep Bs Antibody Hep B Core Total Ab Blood Type Antibody Screen Crossmatch 05/05/21 05/05/21 05/05/21 05:09 07:36 16:15 WBC RBC Hgb Hct MCV MCH MCHC RDW Plt Count MPV Immature Gran % (Auto) Neut % (Auto) Lymph % (Auto) Schuyler % (Auto) Eos % (Auto) Baso % (Auto) Lymph # (Auto) [place] # (Auto) Eos # (Auto) Baso # (Auto) Abs Immat Gran (auto) Absolute Neuts (auto) Absolute Nucleated RBC Nucleated RBC % (auto) PT 12.8 INR 1.1 APTT PTT (Heparin Protocol) 38.0 L Sodium 129 L Potassium 4.6 Chloride 99 Carbon Dioxide 16 L Anion Gap 19 BUN 41 H Creatinine 4.96 H* Estim Creat Clear Calc 10.1 Estimated GFR 9 POC Glucose 139 H Random Glucose Fasting Glucose 154 H Calcium 6.9 L Magnesium Total Bilirubin AST ALT Alkaline Phosphatase Troponin I High Sens Total Protein Albumin Stool Occult Blood Stool Leukocytes, Qual C. difficile Tox B Gene COVID-19 (GLENNA) COVID-19 Clin Com Hep Bs Antigen Hep Bs Antibody Hep B Core Total Ab Blood Type Antibody Screen Crossmatch 05/05/21 05/05/21 05/06/21 16:28 20:28 00:38 WBC RBC Hgb Hct MCV MCH MCHC RDW Plt Count MPV Immature Gran % (Auto) Neut % (Auto) Lymph % (Auto) [place] % (Auto) Eos % (Auto) Baso % (Auto) Lymph # (Auto) [place]yler # (Auto) Eos # (Auto) Baso # (Auto) Abs Immat Gran (auto) Absolute Neuts (auto) Absolute Nucleated RBC Nucleated RBC % (auto) PT INR APTT PTT (Heparin Protocol) 122.2 H* D Sodium Potassium Chloride Carbon Dioxide Anion Gap BUN Creatinine Estim Creat Clear Calc Estimated GFR POC Glucose 210 H 98 Random Glucose Fasting Glucose Calcium Magnesium Total Bilirubin AST ALT Alkaline Phosphatase Troponin I High Sens Total Protein Albumin Stool Occult Blood Stool Leukocytes, Qual C. difficile Tox B Gene COVID-19 (GLENNA) COVID-19 Clin Com Hep Bs Antigen Hep Bs Antibody Hep B Core Total Ab Blood Type Antibody Screen Crossmatch 05/06/21 05/06/21 05/06/21 03:10 03:10 03:11 WBC 12.6 H RBC 2.84 L Hgb 8.8 L Hct 26.6 L MCV 93.7 MCH 31.0 MCHC 33.1 RDW 13.6 Plt Count 265 D MPV 9.7 Immature Gran % (Auto) Neut % (Auto) Lymph % (Auto) [place] % (Auto) Eos % (Auto) Baso % (Auto) Lymph # (Auto) [place] # (Auto) Eos # (Auto) Baso # (Auto) Abs Immat Gran (auto) Absolute Neuts (auto) Absolute Nucleated RBC 0.000 Nucleated RBC % (auto) 0.0 PT 12.7 INR 1.1 APTT PTT (Heparin Protocol) 66.8 D Sodium 131 L Potassium 4.2 Chloride 101 Carbon Dioxide 17 L Anion Gap 17 BUN 24 H Creatinine 3.85 H Estim Creat Clear Calc 13.1 Estimated GFR 11 POC Glucose Random Glucose Fasting Glucose 115 H Calcium 7.0 L Magnesium Total Bilirubin AST ALT Alkaline Phosphatase Troponin I High Sens Total Protein Albumin Stool Occult Blood Stool Leukocytes, Qual C. difficile Tox B Gene COVID-19 (GLENNA) COVID-19 Clin Com Hep Bs Antigen Hep Bs Antibody Hep B Core Total Ab Blood Type Antibody Screen Crossmatch 05/06/21 05/06/21 05/06/21 07:27 10:16 11:16 WBC RBC Hgb Hct MCV MCH MCHC RDW Plt Count MPV Immature Gran % (Auto) Neut % (Auto) Lymph % (Auto) [place] % (Auto) Eos % (Auto) Baso % (Auto) Lymph # (Auto) [place] # (Auto) Eos # (Auto) Baso # (Auto) Abs Immat Gran (auto) Absolute Neuts (auto) Absolute Nucleated RBC Nucleated RBC % (auto) PT INR APTT PTT (Heparin Protocol) 96.8 H D Sodium Potassium Chloride Carbon Dioxide Anion Gap BUN Creatinine Estim Creat Clear Calc Estimated GFR POC Glucose 97 151 H Random Glucose Fasting Glucose Calcium Magnesium Total Bilirubin AST ALT Alkaline Phosphatase Troponin I High Sens Total Protein Albumin Stool Occult Blood Stool Leukocytes, Qual C. difficile Tox B Gene COVID-19 (GLENNA) COVID-19 Clin Com Hep Bs Antigen Hep Bs Antibody Hep B Core Total Ab Blood Type Antibody Screen Crossmatch 05/06/21 05/06/21 05/06/21 16:28 17:18 20:06 WBC RBC Hgb Hct MCV MCH MCHC RDW Plt Count MPV Immature Gran % (Auto) Neut % (Auto) Lymph % (Auto) [place] % (Auto) Eos % (Auto) Baso % (Auto) Lymph # (Auto) [place] # (Auto) Eos # (Auto) Baso # (Auto) Abs Immat Gran (auto) Absolute Neuts (auto) Absolute Nucleated RBC Nucleated RBC % (auto) PT INR APTT PTT (Heparin Protocol) 67.8 D Sodium Potassium Chloride Carbon Dioxide Anion Gap BUN Creatinine Estim Creat Clear Calc Estimated GFR POC Glucose 103 147 H Random Glucose Fasting Glucose Calcium Magnesium Total Bilirubin AST ALT Alkaline Phosphatase Troponin I High Sens Total Protein Albumin Stool Occult Blood Stool Leukocytes, Qual C. difficile Tox B Gene COVID-19 (GLENNA) COVID-19 Clin Com Hep Bs Antigen Hep Bs Antibody Hep B Core Total Ab Blood Type Antibody Screen Crossmatch 05/06/21 05/07/21 05/07/21 23:18 01:17 05:23 WBC 17.3 H RBC 3.00 L Hgb 9.0 L Hct 28.1 L MCV 93.7 MCH 30.0 MCHC 32.0 RDW 13.5 Plt Count 322 MPV 9.7 Immature Gran % (Auto) Neut % (Auto) Lymph % (Auto) [place] % (Auto) Eos % (Auto) Baso % (Auto) Lymph # (Auto) [place] # (Auto) Eos # (Auto) Baso # (Auto) Abs Immat Gran (auto) Absolute Neuts (auto) Absolute Nucleated RBC 0.000 Nucleated RBC % (auto) 0.0 PT INR APTT PTT (Heparin Protocol) 61.1 Sodium Potassium Chloride Carbon Dioxide Anion Gap BUN Creatinine Estim Creat Clear Calc Estimated GFR POC Glucose Random Glucose Fasting Glucose Calcium Magnesium Total Bilirubin AST ALT Alkaline Phosphatase Troponin I High Sens 24.1 H* D Total Protein Albumin Stool Occult Blood Stool Leukocytes, Qual C. difficile Tox B Gene COVID-19 (GLENNA) COVID-19 Clin Com Hep Bs Antigen Hep Bs Antibody Hep B Core Total Ab Blood Type Antibody Screen Crossmatch 05/07/21 05/07/21 05/07/21 05:23 05:23 07:44 WBC RBC Hgb Hct MCV MCH MCHC RDW Plt Count MPV Immature Gran % (Auto) Neut % (Auto) Lymph % (Auto) [place] % (Auto) Eos % (Auto) Baso % (Auto) Lymph # (Auto) [place] # (Auto) Eos # (Auto) Baso # (Auto) Abs Immat Gran (auto) Absolute Neuts (auto) Absolute Nucleated RBC Nucleated RBC % (auto) PT INR APTT PTT (Heparin Protocol) Sodium 129 L Potassium 4.2 Chloride 97 Carbon Dioxide 18 L Anion Gap 18 BUN 29 H Creatinine 4.48 H* Estim Creat Clear Calc 11.2 Estimated GFR 10 POC Glucose 166 H Random Glucose Fasting Glucose 178 H Calcium 6.8 L Magnesium Total Bilirubin AST ALT Alkaline Phosphatase Troponin I High Sens 22.4 H* Total Protein Albumin Stool Occult Blood Stool Leukocytes, Qual C. difficile Tox B Gene COVID-19 (GLENNA) COVID-19 Clin Com Hep Bs Antigen Hep Bs Antibody Hep B Core Total Ab Blood Type Antibody Screen Crossmatch 05/07/21 05/07/21 05/07/21 08:15 11:16 16:41 WBC RBC Hgb Hct MCV MCH MCHC RDW Plt Count MPV Immature Gran % (Auto) Neut % (Auto) Lymph % (Auto) [place] % (Auto) Eos % (Auto) Baso % (Auto) Lymph # (Auto) [place] # (Auto) Eos # (Auto) Baso # (Auto) Abs Immat Gran (auto) Absolute Neuts (auto) Absolute Nucleated RBC Nucleated RBC % (auto) PT INR APTT PTT (Heparin Protocol) 59.8 Sodium Potassium Chloride Carbon Dioxide Anion Gap BUN Creatinine Estim Creat Clear Calc Estimated GFR POC Glucose 125 H 112 Random Glucose Fasting Glucose Calcium Magnesium Total Bilirubin AST ALT Alkaline Phosphatase Troponin I High Sens Total Protein Albumin Stool Occult Blood Stool Leukocytes, Qual C. difficile Tox B Gene COVID-19 (GLENNA) COVID-19 Clin Com Hep Bs Antigen Hep Bs Antibody Hep B Core Total Ab Blood Type Antibody Screen Crossmatch 05/07/21 05/08/21 05/08/21 19:55 05:45 05:45 WBC 17.9 H RBC 2.65 L Hgb 8.4 L Hct 24.6 L MCV 92.8 MCH 31.7 MCHC 34.1 RDW 13.8 Plt Count 244 MPV 9.7 Immature Gran % (Auto) Neut % (Auto) Lymph % (Auto) [place] % (Auto) Eos % (Auto) Baso % (Auto) Lymph # (Auto) [place] # (Auto) Eos # (Auto) Baso # (Auto) Abs Immat Gran (auto) Absolute Neuts (auto) Absolute Nucleated RBC 0.000 Nucleated RBC % (auto) 0.0 PT INR APTT PTT (Heparin Protocol) 167.2 H* D Sodium Potassium Chloride Carbon Dioxide Anion Gap BUN Creatinine Estim Creat Clear Calc Estimated GFR POC Glucose 117 H Random Glucose Fasting Glucose Calcium Magnesium Total Bilirubin AST ALT Alkaline Phosphatase Troponin I High Sens Total Protein Albumin Stool Occult Blood Stool Leukocytes, Qual C. difficile Tox B Gene COVID-19 (GLENNA) COVID-19 Clin Com Hep Bs Antigen Hep Bs Antibody Hep B Core Total Ab Blood Type Antibody Screen Crossmatch 05/08/21 05/08/21 05/08/21 05:45 07:15 08:02 WBC RBC Hgb Hct MCV MCH MCHC RDW Plt Count MPV Immature Gran % (Auto) Neut % (Auto) Lymph % (Auto) [place] % (Auto) Eos % (Auto) Baso % (Auto) Lymph # (Auto) [place] # (Auto) Eos # (Auto) Baso # (Auto) Abs Immat Gran (auto) Absolute Neuts (auto) Absolute Nucleated RBC Nucleated RBC % (auto) PT INR APTT PTT (Heparin Protocol) 63.5 D Sodium 131 L Potassium 3.6 Chloride 100 Carbon Dioxide 20 L Anion Gap 15 BUN 21 H Creatinine 3.70 H Estim Creat Clear Calc 13.6 Estimated GFR 12 POC Glucose 90 Random Glucose Fasting Glucose 94 Calcium 7.3 L D Magnesium 1.9 Total Bilirubin AST ALT Alkaline Phosphatase Troponin I High Sens Total Protein Albumin Stool Occult Blood Stool Leukocytes, Qual C. difficile Tox B Gene COVID-19 (GLENNA) COVID-19 Clin Com Hep Bs Antigen Hep Bs Antibody Hep B Core Total Ab Blood Type Antibody Screen Crossmatch 05/08/21 05/08/21 05/08/21 14:58 15:57 19:29 WBC RBC Hgb Hct MCV MCH MCHC RDW Plt Count MPV Immature Gran % (Auto) Neut % (Auto) Lymph % (Auto) [place] % (Auto) Eos % (Auto) Baso % (Auto) Lymph # (Auto) [place] # (Auto) Eos # (Auto) Baso # (Auto) Abs Immat Gran (auto) Absolute Neuts (auto) Absolute Nucleated RBC Nucleated RBC % (auto) PT INR APTT PTT (Heparin Protocol) 38.7 L D Sodium Potassium Chloride Carbon Dioxide Anion Gap BUN Creatinine Estim Creat Clear Calc Estimated GFR POC Glucose 142 H 237 H Random Glucose Fasting Glucose Calcium Magnesium Total Bilirubin AST ALT Alkaline Phosphatase Troponin I High Sens Total Protein Albumin Stool Occult Blood Stool Leukocytes, Qual C. difficile Tox B Gene COVID-19 (GLENNA) COVID-19 Clin Com Hep Bs Antigen Hep Bs Antibody Hep B Core Total Ab Blood Type Antibody Screen Crossmatch 05/08/21 05/09/21 05/09/21 21:55 04:50 04:50 WBC 16.9 H RBC 2.48 L Hgb 7.8 L Hct 23.2 L MCV 93.5 MCH 31.5 MCHC 33.6 RDW 14.0 Plt Count 246 MPV 9.6 Immature Gran % (Auto) Neut % (Auto) Lymph % (Auto) [place] % (Auto) Eos % (Auto) Baso % (Auto) Lymph # (Auto) [place] # (Auto) Eos # (Auto) Baso # (Auto) Abs Immat Gran (auto) Absolute Neuts (auto) Absolute Nucleated RBC 0.000 Nucleated RBC % (auto) 0.0 PT INR APTT PTT (Heparin Protocol) 48.0 L D Sodium 129 L Potassium 3.6 Chloride 98 Carbon Dioxide 18 L Anion Gap 17 BUN 36 H D Creatinine 5.36 H* Estim Creat Clear Calc 9.4 Estimated GFR 8 POC Glucose Random Glucose Fasting Glucose 116 H Calcium 7.5 L Magnesium Total Bilirubin AST ALT Alkaline Phosphatase Troponin I High Sens Total Protein Albumin Stool Occult Blood Stool Leukocytes, Qual C. difficile Tox B Gene COVID-19 (GLENNA) COVID-19 Clin Com Hep Bs Antigen Hep Bs Antibody Hep B Core Total Ab Blood Type Antibody Screen Crossmatch 05/09/21 05/09/21 05/09/21 04:50 06:41 07:37 WBC RBC Hgb Hct MCV MCH MCHC RDW Plt Count MPV Immature Gran % (Auto) Neut % (Auto) Lymph % (Auto) [place] % (Auto) Eos % (Auto) Baso % (Auto) Lymph # (Auto) [place] # (Auto) Eos # (Auto) Baso # (Auto) Abs Immat Gran (auto) Absolute Neuts (auto) Absolute Nucleated RBC Nucleated RBC % (auto) PT INR APTT PTT (Heparin Protocol) 147.3 H* D 37.4 L D Sodium Potassium Chloride Carbon Dioxide Anion Gap BUN Creatinine Estim Creat Clear Calc Estimated GFR POC Glucose 144 H Random Glucose Fasting Glucose Calcium Magnesium Total Bilirubin AST ALT Alkaline Phosphatase Troponin I High Sens Total Protein Albumin Stool Occult Blood Stool Leukocytes, Qual C. difficile Tox B Gene COVID-19 (GLENNA) COVID-19 Clin Com Hep Bs Antigen Hep Bs Antibody Hep B Core Total Ab Blood Type Antibody Screen Crossmatch 05/09/21 05/09/21 05/09/21 15:09 16:04 16:25 WBC RBC Hgb Hct MCV MCH MCHC RDW Plt Count MPV Immature Gran % (Auto) Neut % (Auto) Lymph % (Auto) Schuyler % (Auto) Eos % (Auto) Baso % (Auto) Lymph # (Auto) Schuyler # (Auto) Eos # (Auto) Baso # (Auto) Abs Immat Gran (auto) Absolute Neuts (auto) Absolute Nucleated RBC Nucleated RBC % (auto) PT INR APTT PTT (Heparin Protocol) 40.1 L Sodium Potassium Chloride Carbon Dioxide Anion Gap BUN Creatinine Estim Creat Clear Calc Estimated GFR POC Glucose 123 H 174 H Random Glucose Fasting Glucose Calcium Magnesium Total Bilirubin AST ALT Alkaline Phosphatase Troponin I High Sens Total Protein Albumin Stool Occult Blood Stool Leukocytes, Qual C. difficile Tox B Gene COVID-19 (GLENNA) COVID-19 Clin Com Hep Bs Antigen Hep Bs Antibody Hep B Core Total Ab Blood Type Antibody Screen Crossmatch 05/09/21 05/09/21 05/10/21 20:37 22:26 05:56 WBC RBC Hgb Hct MCV MCH MCHC RDW Plt Count MPV Immature Gran % (Auto) Neut % (Auto) Lymph % (Auto) Schuyler % (Auto) Eos % (Auto) Baso % (Auto) Lymph # (Auto) Schuyler # (Auto) Eos # (Auto) Baso # (Auto) Abs Immat Gran (auto) Absolute Neuts (auto) Absolute Nucleated RBC Nucleated RBC % (auto) PT INR APTT PTT (Heparin Protocol) 47.3 L 63.9 D Sodium Potassium Chloride Carbon Dioxide Anion Gap BUN Creatinine Estim Creat Clear Calc Estimated GFR POC Glucose 164 H Random Glucose Fasting Glucose Calcium Magnesium Total Bilirubin AST ALT Alkaline Phosphatase Troponin I High Sens Total Protein Albumin Stool Occult Blood Stool Leukocytes, Qual C. difficile Tox B Gene COVID-19 (GLENNA) COVID-19 Clin Com Hep Bs Antigen Hep Bs Antibody Hep B Core Total Ab Blood Type Antibody Screen Crossmatch 05/10/21 05/10/21 05/10/21 05:56 05:56 07:14 WBC 14.2 H RBC 2.55 L Hgb 7.8 L Hct 24.1 L MCV 94.5 MCH 30.6 MCHC 32.4 RDW 14.0 Plt Count 234 MPV 10.0 Immature Gran % (Auto) Neut % (Auto) Lymph % (Auto) Schuyler % (Auto) Eos % (Auto) Baso % (Auto) Lymph # (Auto) Schuyler # (Auto) Eos # (Auto) Baso # (Auto) Abs Immat Gran (auto) Absolute Neuts (auto) Absolute Nucleated RBC 0.000 Nucleated RBC % (auto) 0.0 PT INR APTT PTT (Heparin Protocol) Sodium 131 L Potassium 3.2 L Chloride 98 Carbon Dioxide 21 L Anion Gap 15 BUN 20 H Creatinine 3.65 H Estim Creat Clear Calc 13.9 Estimated GFR 12 POC Glucose 145 H Random Glucose 144 H Fasting Glucose Calcium 7.3 L Magnesium 2.0 Total Bilirubin AST ALT Alkaline Phosphatase Troponin I High Sens Total Protein Albumin Stool Occult Blood Stool Leukocytes, Qual C. difficile Tox B Gene COVID-19 (GLENNA) COVID-19 Clin Com Hep Bs Antigen Hep Bs Antibody Hep B Core Total Ab Blood Type Antibody Screen Crossmatch 05/10/21 05/10/21 05/10/21 11:39 16:32 21:04 WBC RBC Hgb Hct MCV MCH MCHC RDW Plt Count MPV Immature Gran % (Auto) Neut % (Auto) Lymph % (Auto) Schuyler % (Auto) Eos % (Auto) Baso % (Auto) Lymph # (Auto) Schuyler # (Auto) Eos # (Auto) Baso # (Auto) Abs Immat Gran (auto) Absolute Neuts (auto) Absolute Nucleated RBC Nucleated RBC % (auto) PT INR APTT PTT (Heparin Protocol) Sodium Potassium Chloride Carbon Dioxide Anion Gap BUN Creatinine Estim Creat Clear Calc Estimated GFR POC Glucose 265 H 216 H 120 H Random Glucose Fasting Glucose Calcium Magnesium Total Bilirubin AST ALT Alkaline Phosphatase Troponin I High Sens Total Protein Albumin Stool Occult Blood Stool Leukocytes, Qual C. difficile Tox B Gene COVID-19 (GLENNA) COVID-19 Clin Com Hep Bs Antigen Hep Bs Antibody Hep B Core Total Ab Blood Type Antibody Screen Crossmatch 05/10/21 05/11/21 05/11/21 22:32 05:59 05:59 WBC RBC Hgb Hct MCV MCH MCHC RDW Plt Count MPV Immature Gran % (Auto) Neut % (Auto) Lymph % (Auto) Schuyler % (Auto) Eos % (Auto) Baso % (Auto) Lymph # (Auto) Schuyler # (Auto) Eos # (Auto) Baso # (Auto) Abs Immat Gran (auto) Absolute Neuts (auto) Absolute Nucleated RBC Nucleated RBC % (auto) PT INR APTT PTT (Heparin Protocol) 50.5 L D 90.6 H D Sodium 127 L Potassium 3.5 Chloride 96 Carbon Dioxide 17 L Anion Gap 18 BUN 30 H Creatinine 5.06 H* Estim Creat Clear Calc 9.9 Estimated GFR 8 POC Glucose Random Glucose 143 H Fasting Glucose Calcium 7.0 L Magnesium Total Bilirubin AST ALT Alkaline Phosphatase Troponin I High Sens Total Protein Albumin Stool Occult Blood Stool Leukocytes, Qual C. difficile Tox B Gene COVID-19 (GLENNA) COVID-19 Clin Com Hep Bs Antigen Hep Bs Antibody Hep B Core Total Ab Blood Type Antibody Screen Crossmatch 05/11/21 05/11/21 05/11/21 07:22 07:46 12:18 WBC RBC Hgb Hct MCV MCH MCHC RDW Plt Count MPV Immature Gran % (Auto) Neut % (Auto) Lymph % (Auto) Schuyler % (Auto) Eos % (Auto) Baso % (Auto) Lymph # (Auto) Schuyler # (Auto) Eos # (Auto) Baso # (Auto) Abs Immat Gran (auto) Absolute Neuts (auto) Absolute Nucleated RBC Nucleated RBC % (auto) PT INR APTT PTT (Heparin Protocol) Sodium Potassium Chloride Carbon Dioxide Anion Gap BUN Creatinine Estim Creat Clear Calc Estimated GFR POC Glucose 134 H 124 H Random Glucose Fasting Glucose Calcium Magnesium Total Bilirubin AST ALT Alkaline Phosphatase Troponin I High Sens Total Protein Albumin Stool Occult Blood Stool Leukocytes, Qual C. difficile Tox B Gene COVID-19 (GLENNA) COVID-19 Clin Com Hep Bs Antigen Hep Bs Antibody Hep B Core Total Ab Blood Type A Positive Antibody Screen NEGATIVE Crossmatch See Detail Airway Mallampati Class: II TM Dist: >3cm Denture: Upper and Lower Heart: IRRR Lungs: CTA Assessment and Plan Assessment Anesthesia Assessment: Anesthesia Plan Discussed Final Anesthetic Review Family History of Problems with Anesthesia: No History of Problems with Anesthesia: No NPO: Yes ASA Class: III and Emergency Final Preanesthetic Review: No Changes in Pt Med Stat, Meds/Allgs Chart Reviewed, Consent Obtained/Reviewed and Anes Risks/Benef Reviewed Patient Risk: High Procedure Risk: Low Anesthetic Plan Anesthetic Plan: MAC: Disposition: Standard PACU
[2021-05-11] MEDS: Heparin Sodium,Porcine 1,000 UNIT/ML VIAL 3000 UNIT IV (16:48)
[2021-05-11] MEDS: Lidocaine HCl 1 % MPF 5 ML VIAL SUBCUT (16:49)
[2021-05-11] MEDS: dilTIAZem HCL 30 MG TABLET PO (19:33)
[2021-05-11] MEDS: Magnesium Sulfate/H2O 2 GM/50 ML PIGGYBACK IV (19:34)
[2021-05-11 20:37] LABS: Glucose, Whole Blood 140 mg/dL (60-115)
[2021-05-11] MEDS: Gabapentin 100 MG CAPSULE PO (20:54)
[2021-05-11] MEDS: Melatonin 3 MG TABLET 6 MG PO (20:54)
[2021-05-11] MEDS: Atorvastatin Calcium 40 MG TABLET PO (20:54)
[2021-05-11] MEDS: Montelukast Sodium 10 MG TABLET PO (20:54)
[2021-05-11] MEDS: 0.9 % Sodium Chloride Flush 3 ML SYRINGE IVFLUSH (20:55)
--- NOTE | 2021-05-11 21:43 | PM.EVENT ---
Event Note Date of Service: 05/11/21 Event Note: Patient on heparin drip for right arm DVT. Her Heparin was paused due to placement and PermCath this morning. Her PermCath was placed today. Patient is very difficult stick, refusing to be IV punctured. unable to obtain any PTT prior to restarting her heparin drip. And would not be able to follow the PTT protocol on heparin drip therefore on review of her chart will stop the heparin drip and start her on Eliquis 5 mg b.i.d. without loading dose.
[2021-05-11] MEDS: Apixaban 5 MG TABLET PO (22:56)
[2021-05-12] VITALS (8 sets, daily range): BP systolic 112–148; BP diastolic 53–80; PULSE 68–87; RESP 16–20; TEMP 36.1–37.1; O2SAT 94–98
--- NOTE | 2021-05-12 06:10 | PC.NURSE ---
Heparin gtt had been shut off since approx 0700 on 05/11 due to dialysis and port placement. notified, and was instructed to turn heparin gtt back on after getting an updated ptthd. Pt adamantly refused blood draws. notified again. Heparin gtt discontinued and PO Elequis was ordered. This RN explained the medication and potential side effects of the medication with use of an park interpreter. Pt is agreeable to take the medication.
--- NOTE | 2021-05-12 06:12 | PC.NURSE ---
Blood ordered for patient prior to this RN starting her shift. Type and screen had been done, but consent had not been obtained. With use of toby maker this RN explained the need for the unit of blood, and potential side effects and risks of having a blood transfusion. Pt is agreeable and signed consent which is now in the paper chart. Pt tolerated transfusion very well with no issues.
[2021-05-12] MEDS: Omeprazole 20 MG CAPSULE.DR PO (06:19)
[2021-05-12] MEDS: Levothyroxine Sodium 25 MCG TABLET PO (06:19)
[2021-05-12] MEDS: Acetaminophen 325 MG TABLET 650 MG PO ×2 (06:19→16:55)
[2021-05-12 07:26] LABS: Glucose, Whole Blood 174 mg/dL (60-115)
[2021-05-12] MEDS: Apixaban 5 MG TABLET PO ×2 (08:10→21:12)
[2021-05-12] MEDS: dilTIAZem HCL CD 120 MG CAP.ER.DEG PO (08:10)
[2021-05-12] MEDS: Metoprolol Tartrate 25 MG TABLET PO ×2 (08:10→21:12)
[2021-05-12] MEDS: Loratadine 10 MG TABLET PO (08:10)
[2021-05-12] MEDS: Cholecalciferol (Vitamin D3) 25 MCG TABLET PO (08:10)
[2021-05-12] MEDS: 0.9 % Sodium Chloride Flush 10 ML SYRINGE 5 ML IVFLUSH ×3 (08:11→21:13)
[2021-05-12] MEDS: 0.9 % Sodium Chloride Flush 3 ML SYRINGE IVFLUSH ×3 (08:11→21:13)
[2021-05-12] MEDS: Insulin Lispro 100 UNIT/ML 3 ML VIAL SUBCUT ×4 (08:11→21:12)
--- NOTE | 2021-05-12 09:19 | P.PNNP_ITS ---
Subjective Subjective Date of Service: 05/12/21 Principal diagnosis: PAF, acute on chronic RF, anemia Interval history: patient was seen and evaluated this morning Laying in bed, feels better today HR better controlled overnight , started Denies any fever, chills or shortness of breath No reported other overnight events. Systemic review: No fever, chills but complain of pain and weakness No chest pain, palpitation No shortness of breath or coughing No abdominal pain, nausea or vomiting No urinary symptoms Physical Exam Vital Signs: Vital Signs: Last Vital Signs Temp 97 F 05/12/21 06:58 Pulse 87 05/12/21 08:10 Resp 20 05/12/21 06:58 BP 148/74 H 05/12/21 08:10 Pulse Ox 94 05/12/21 06:58 Body Mass Index 39.4 Const: Other: Constitutional : Alert, oriented, looks weak Neck : Normal inspection, Supple, dialysis line in place Cardiovascular : RRR, S1 S2, no lower extremity edema Respiratory : Fair bilateral air entry, no crackles, wheezes or rhonchi Gastrointestinal: soft, lax, Normal bowel sounds, Non tender Skin : Warm, Dry, swelling improved Neurological : Alert & oriented x2, No focal deficit General: cooperative, comfortable, no acute distress, alert, awake, ill appearing and other (appears dyspneic) Nutritional Appearance: average body habitus and obese Orientation/consciousness: patient oriented x3 HENMT: Head: Yes normal to inspection and Yes normocephalic Face and sinus: Yes normal facial exam Mouth: Normal oral and palatal mucosa present Eyes: EOM: EOMs intact bilaterally Neck: Other: Temp HD catheter in place Neck: Yes normal visual inspection, Yes full ROM, Yes trachea midline, Yes supple, Yes JVD and Yes no JVD Chest: Chest palpation & inspection: normal inspection of the chest Resp: Other: fine rales noted in each lower lobe, less than yesterday Effort & Inspection: normal respiratory effort, able to speak in complete sentences and not labored Auscultation: clear to auscultation bilaterally, no rales, no rhonchi, no wheezes and diminished lung sounds Cardio: Jugular venous distension: JVD present Palpation: normal PMI and no palpable S3 Rate: regular rate and tachycardic Rhythm: regular rhythm and abnormal rhythm irregularly irregular Heart sounds: S1 normal heart sound present, S2 normal heart sound present, no murmurs and no rubs Peripheral pulses: Peripheral pulses 2+ throughout GI: Inspection: Yes normal to inspection Palpation (GI): Soft to palpation, not firm, nontender and no guarding Auscultation: normal bowel sounds Skin: General skin exam: no rashes or lesions noted Neuro: General: patient oriented x3 and moves all extremities Motor exam (neuro): no asterixis Extrem: Other: soft, nonpitting tissue General: Yes normal to inspection and No edema Right upper extremity: edema Objective Data Labs CBC & Chem 7: 05/10/21 05:56 05/11/21 05:59 Labs: Laboratory Results - last 24 hr 05/11/21 05/11/21 05/11/21 07:46 12:18 20:32 POC Glucose 124 H 140 H Blood Type A Positive Antibody Screen NEGATIVE Crossmatch See Detail 05/12/21 06:58 POC Glucose 174 H Blood Type Antibody Screen Crossmatch Microbiology Microbiology Results: Microbiology 05/04/21 03:49 Stool Stool Culture - Final Procedures Date of Service Date of Service: 05/12/21 Assessment & Plan Assessment and plan (1) PAF (paroxysmal atrial fibrillation): Status: Acute Assessment and Plan: Newer persistent Afib, first diagnosed earlier this month. Being treated with heart rate control. Not started on anticoagulation at that time due to anemia and need for further evaluation. Echocardiogram 04/20/21 showed EF 60-65%, normal RV, normal left atrial size, mild pulmonary hypertension.? Now with readmission for acute on chronic kidney disease and has been start on dialysis. Afib rates have been elevated. She is on Metoprolol for rate control. Diltiazem drip had been used 3 days ago and stopped due to 2 three second pauses. Now only receiving Metoprolol. At this time, Tele shows afib rates better controlled 70- 120s. No reports of chest pains or heart palpitations.? Continue on Metoprolol 25mg QID for rate control. Can further titrate if needed for better rate control.? If still has issues with tachycardic then Diltiazem can be used. Ongoing tele monitoring while inpt. She is on heparin drip at present time for small thrombus in right basilic vein. Hgb yest am 7.8 which is down from 9.9 on admit. Stool occult + on 05/04. GI has seen, but unclear if they are aware of guiac + stool. Msg sent to hospitalist yesterday in regards to this. Recommend further evaluation of anemia and GI/ heme recommendation on use of oral anti coagulation on her. Recommend blood transfusion.?Unclear at present if able to use pre press proofer oral anticoagulation on her.? We will follow (2) Acute on chronic kidney failure: Status: Acute Assessment and Plan: Tolerated dialysis yesterday next treatment friday advanced CKD V, uremia, volume overload started HD 05/04 via temp cath placed 05/03 Shall follow up on biopsy results as outpatient [facility] in Has an outpatient HD spot in [place] [facility] unit in [facility] ( [facility] Jess[facility] Ladonna ( [id number]) (3) DVT of upper extremity (deep vein thrombosis): Status: Acute Assessment and Plan: On heparin drip. Being managed by hospitalist. Time Spent With Patient Time: Total time spent is greater than 50% in coordination of care (as documented) at patient's floor/unit and/or counseling patient: Progress Note: Quality Stroke Does the patient have a stroke diagnosis?: No
[2021-05-12 09:50] LABS: Iron 26 mcg/dL (30-160); Percent Iron Saturation 18 % (15-50); Total Iron Binding Capacity 143 mcg/dL (228-428); Unsaturated Iron Binding 117 ug/dL
[2021-05-12] MEDS: Sodium Ferric Gluconat/Sucrose 125 MG in 0.9 % Sodium Chloride 100 ML 100 MG IV (10:51)
[2021-05-12 11:26] LABS: Glucose, Whole Blood 217 mg/dL (60-115)
--- NOTE | 2021-05-12 11:47 | PM.DS ---
DS: Providers Provider Date of Service: 05/12/21 Date of admission: 05/02/21 20:14 Primary care physician: Lonnie Khan MD Consults: 05/02/21 21:47 Consult to Gastroenterology Routine Consulting Provider: Ree Case Reason for consultation: black stool; GB sludge Consult to Nephrology Routine Consulting Provider: Handy Tidwell Reason for consultation: KYLER on CKD; renal cyst 05/07/21 11:36 Consult to Cardiology Routine Consulting Provider: Semaj Hayes Reason for consultation: afib rvr DS: Diagnosis Discharge Diagnosis (1) PAF (paroxysmal atrial fibrillation): Status: Acute (2) Acute on chronic kidney failure: Status: Acute (3) DVT of upper extremity (deep vein thrombosis): Status: Acute (4) ESRD needing dialysis: Status: Acute (5) Atrial fibrillation with rapid ventricular response: Status: Acute (6) Metabolic acidosis: Status: Acute (7) Diarrhea: Status: Acute (8) Type 2 diabetes mellitus: Status: Acute DS: Summary Hospital Course Hospital Course: Admission note HPI 72-year-old female with a past medical history of hypertension, hyperlipidemia, diabetes, chronic kidney disease stage by-not on dialysis currently, GERD, hypothyroidism, paroxysmal AFib, history of toe amputation presented to the hospital with a chief complaint of diarrhea. Patient reported that she was recently admitted to the hospital for pneumonia, finished course of antibiotics; over the past couple days she has been having diarrhea and has been feeling weak in general; has seen the doctor as outpatient was advised to go to the hospital for further evaluation. Denies any chest pain palpitations lightheadedness or dizziness. Reports that her stool is loose, foul-smelling, also noted intermittently black colored stools. Denies any numbness tingling or focal weakness. Reports he still continues to have dry cough. Review of all other systems is negative except mentioned above Hospital course Patient was admitted to the hospital mainly for evaluation of difficulty breathing and increased lethargy. Found to have worsening kidney function. Biopsy was done per nephrology team and this results still pending and the patient was started on dialysis with good response as the fluid improved and her lethargy improved S with. It a permanent PermCath was placed before discharge as she will follow-up as outpatient dialysis center-and followed by Nephrology. She developed paroxysmal atrial fibrillation, with RVR. Controlled with Cardizem drip. Her home medication changed with increase metoprolol to 25 b.i.d. in addition of Cardizem 120 mg daily CD. She was not started on A/C previously due to concern for bleeding. Complained of right arm swelling and found to have Basalic V. DVT based on doppler US. treated with iv heparin then changed eliquis 5mg bid. Time Spent with Patient Time attestation: Total time spent providing and/or coordinating discharge services: Discharge coordination time: Greater than 30 minutes Quality: Stroke Does the patient have a stroke diagnosis?: No Physical Exam Vital Signs: Vital Signs: Last Vital Signs Temp 98.2 F 05/12/21 11:24 Pulse 72 05/12/21 11:24 Resp 18 05/12/21 11:24 BP 112/53 L 05/12/21 11:24 Pulse Ox 98 05/12/21 11:24 Body Mass Index 39.4 Const: Other: Constitutional : Alert, oriented, Neck : Normal inspection, Supple, dialysis line in place Cardiovascular : RRR, S1 S2, no lower extremity edema Respiratory : Fair bilateral air entry, no crackles, wheezes or rhonchi Gastrointestinal: soft, lax, Normal bowel sounds, Non tender Skin : Warm, Dry, swelling improved, Permacath in placed. Neurological : Alert & oriented x2, No focal deficit DS: Data Data Completed and Pending Completed studies during hospitalization [Text1]: Procedures Excision of Right Kidney, Percutaneous Approach, Diagnostic (04/20/21) Transfusion of Nonautologous Red Blood Cells into Peripheral Vein, Percutaneous Approach (04/20/21) Labs on day of discharge: Laboratory Results - last 24 hr 05/11/21 05/11/21 05/11/21 05:59 07:46 12:18 POC Glucose 124 H Iron 26 L TIBC 143 L % Saturation 18 Unsat Iron Binding 117 Blood Type A Positive Antibody Screen NEGATIVE Crossmatch See Detail 05/11/21 05/12/21 05/12/21 20:32 06:58 11:23 POC Glucose 140 H 174 H 217 H Iron TIBC % Saturation Unsat Iron Binding Blood Type Antibody Screen Crossmatch Discharge Plan Discharge Patient Disposition: er [facility] Discharge Diagnosis: End-stage renal disease requiring dialysis Basilic vein thrombosis Referrals: [facility] [Outside] - 1 Week Lonnie Khan MD [Primary Care Provider] - 1 Week Discharge Medications: New diltiazem HCl [Cardizem CD] 120 mg Capsule,Extended Release 24hr 120 mg PO DAILY 30 Days Qty: 30 RF: 0 gabapentin 100 mg Capsule 100 mg PO BEDTIME 30 Days Qty: 30 RF: 0 Eliquis 5 mg Tablet 5 mg PO BID 30 Days Qty: 60 RF: 0 Continued atorvastatin 40 mg tablet 40 mg PO BEDTIME Qty: 30 RF: 3 montelukast 10 mg tablet 10 mg PO BEDTIME Qty: 30 RF: 3 loratadine 10 mg tablet 10 mg PO DAILY Qty: 30 RF: 3 pantoprazole 20 mg tablet,delayed release (DR/EC) 20 mg PO DAILY Qty: 30 RF: 3 furosemide 20 mg tablet 20 mg PO BID Qty: 60 RF: 3 cholecalciferol (vitamin D3) [Vitamin D3] 25 mcg (1,000 unit) capsule 25 mcg PO DAILY Qty: 30 RF: 3 aspirin 81 mg tablet,delayed release (DR/EC) 81 mg PO DAILY Qty: 30 RF: 3 cyanocobalamin (vitamin B-12) 1,000 mcg/mL solution 1,000 mcg IM Q28D 28 Days Qty: 1 RF: 5 Novolin 70-30 FlexPen U-100 100 unit/mL (70-30) insulin pen 20 unit subcut BID 30 Days Qty: 15 RF: 0 Metamucil Fiber Singles 3.4 gram Powder In Packet 3.4 g PO DAILY Qty: 30 RF: 0 tramadol 50 mg tablet 1 tab PO DAILY PRN (Reason: Pain (Scale Score 4-6)) RF: 0 ferrous sulfate 250 mg (50 mg iron) tablet extended release 250 mg PO DAILY 30 Days Qty: 30 RF: 0 levothyroxine 25 mcg capsule 25 mcg PO DAILY Qty: 30 RF: 0 (DME) pen needle, diabetic [BD Sandra 2nd Gen Pen Needle] 32 gauge x 5/32 needle See Rx Instructions .Route Qty: 50 RF: 0 (DME) blood-glucose meter [FreeStyle Lite Meter] Kit See Rx Instructions .Route Qty: 1 RF: 0 (DME) FreeStyle Lite Strips Strip See Rx Instructions .ROUTE .MEDSUPPLY Qty: 100 RF: 0 (DME) lancets [FreeStyle Lancets] 28 gauge misc See Rx Instructions .ROUTE .MEDSUPPLY Qty: 100 RF: 0 (DME) FreeStyle Lite Strips Strip See Rx Instructions .ROUTE .MEDSUPPLY Qty: 100 RF: 12 (DME) blood-glucose meter [FreeStyle Lite Meter] Kit See Rx Instructions .Route Qty: 1 RF: 0 Changed metoprolol tartrate 25 mg tablet 25 mg PO BID Qty: 30 RF: 3 Discontinued nifedipine 60 mg Tablet Extended Release 24hr 120 mg PO DAILY 30 Days Qty: 60 RF: 0 cefuroxime axetil 250 mg tablet 250 mg PO BID RF: 0 Discharge Orders: Discharge Order (Routine); Ordered 05/12/21 Ordered By: Marvel Phelan Diet: advance to usual diet and low salt diet Activity on Discharge: As tolerated Stand Alone Forms: Patient Portal Discharge page Care Plan Goals: Read below Health Concerns: Read below Plan of Treatment: Read below Assessment: You were admitted to the hospital with weakness and lethargy. Found of worsening kidney function. Evaluated by Nephrology team who recommended starting dialysis with good response over the course of hospital stay as your breathing improved significantly and your weakness resolved. A dialysis catheter was placed. Arrangement for outpatient dialysis done. You were noticed to have a clot in your upper extremity pain. Started on Eliquis with plan to take the medication for the next 3 months.
--- NOTE | 2021-05-12 12:39 | MHC.CM.PN ---
Addendum entered by Chiara De Paz 05/12/21 14:57: CM RECEIVED A RESPONSE FROM [facility]. THEY REPORT THEY ARE ABLE TO TAKE PT TODAY BUT NOT UNTIL 1800 HOURS. TRANSPORT ARRANGED, NURSE AND FAMILY AWARE Original Note: CM INFORMED THAT PT HAD INDICATED SHE WOULD PREFER TO DC HOME. LIV MET WITH PT AND HER SON, ELIO, WHO WAS AT BEDSIDE. AFTER DISCUSSION, PT AND SON REQUESTING PT GO TO [facility] AT [facility]. CM SENT UPDATES TO [facility] THIS MORNING AND INFORMED THEM PT WAS READY TO DC. SNF HAS YET TO RESPOND IN ALLSCRIPTS. LIV CALLED THE LIAISON AND LEFT A VM MESSAGE INFORMING HER OF DC HOWEVER SHE TYPICALLY DOES NOT WORK W/E. LIV CALLED THE FACILITY AND SPOKE TO NURSING FUR DESIGNER CARLOS, WHO REPORTED THEY HAVE TOO MANY ADMISSIONS COMING ALREADY TODAY HOWEVER SHE WOULD PASS CM PHONE NUMBER TO ADMISSIONS SO THAT THIS COULD BE WORKED OUT WITH THEM. LIV DID POINT OUT THAT THE PT WAS ACCEPTED YESTERDAY BY THEIR SHOP WELDER AND THAT AN HD SPOT HAD ALREADY BEEN ARRANGED. AWAITING RETURN CALL FROM ADMISSIONS DEPT AT [facility]
--- NOTE | 2021-05-12 13:01 | P.PNCA_ITS ---
Subjective Subjective Date of Service: 05/12/21 Principal diagnosis: PAF, acute on chronic RF, anemia Interval history: Feeling better. Heart rate is well controlled. Physical Exam Vital Signs: Last Vital Signs Temp 98.2 F 05/12/21 11:24 Pulse 72 05/12/21 11:24 Resp 18 05/12/21 11:24 BP 112/53 L 05/12/21 11:24 Pulse Ox 98 05/12/21 11:24 Body Mass Index 39.4 GENERAL APPEARANCE: in no acute distress, pleasant. NECK: no carotid bruit, no jugular venous distention. SKIN: no suspicious lesions, warm and dry. HEART: no murmurs, irregular rate and rhythm. LUNGS: clear to auscultation bilaterally. ABDOMEN: soft, nontender. EXTREMITIES: no edema. PERIPHERAL PULSES: equal. NEUROLOGIC: No gross deficits, AAO X 3 Objective Labs and Meds Result diagrams: 05/10/21 05:56 05/11/21 05:59 Lab results: Laboratory Results - last 24 hr 05/11/21 05/11/21 05/11/21 05:59 07:46 20:32 POC Glucose 140 H Iron 26 L TIBC 143 L % Saturation 18 Unsat Iron Binding 117 Blood Type A Positive Antibody Screen NEGATIVE Crossmatch See Detail 05/12/21 05/12/21 06:58 11:23 POC Glucose 174 H 217 H Iron TIBC % Saturation Unsat Iron Binding Blood Type Antibody Screen Crossmatch Imaging Radiologist's impression: Impressions Insertion Tunneled Catheter 05/11/21 08:00 IMPRESSION: Conversion of right internal jugular temporary dialysis catheter to tunneled dialysis catheter. Fluoroscopy time: 1.2 minutes. DAP: 176 cGycm2 Progress Note: A&P Assessment and plan (1) ESRD needing dialysis: Status: Acute (2) PAF (paroxysmal atrial fibrillation): Status: Acute Assessment and Plan: 75-year-old female with chronic kidney disease now hemodialysis who presented for AFib with RVR. After dialysis and volume optimization her heart rate control is much better. Continue same medications for now. On anticoagulation now. She will need close monitoring of her hemoglobin. Thank you for allowing me to participate in the care of your patient. Please feel free to contact me if you have any questions. Fall Risk Details Current Medications: Current Medications Acetaminophen (Acetaminophen 325 Mg Tablet) 650 mg PO Q6H PRN PRN Reason: Pain, Mild (Pain Scale 1-3) Last Admin: 05/12/21 06:19 Dose: 650 mg Documented by: Apixaban (Apixaban 5 Mg Tablet) 5 mg PO BID [facility] Last Admin: 05/12/21 08:10 Dose: 5 mg Documented by: Atorvastatin Calcium (Atorvastatin Calcium 40 Mg Tablet) 40 mg PO BEDTIME [facility] Last Admin: 05/11/21 20:54 Dose: 40 mg Documented by: Cyanocobalamin (Cyanocobalamin (Vitamin B-12) 1,000 Mcg/Ml Vial) 1,000 mcg IM Q28D [facility] Dextrose (Dextrose 50 % 25 Gm/50 Ml Vial) 25 gm IVPUSH Q15M PRN; Protocol PRN Reason: per Hypoglycemia Standing Ord. Diltiazem HCl (Diltiazem Hcl Cd 120 Mg Cap.Er.Deg) 120 mg PO DAILY [facility]; Protocol Last Admin: 05/12/21 08:10 Dose: 120 mg Documented by: Gabapentin (Gabapentin 100 Mg Capsule) 100 mg PO BEDTIME [facility] Last Admin: 05/11/21 20:54 Dose: 100 mg Documented by: Glucose (Glucose Gel 15 Gm Gel..Gram.) 15 gm PO Q15M PRN; Protocol PRN Reason: per Hypoglycemia Standing Ord. Ferric Sodium Gluconate Complex 125 mg/ Sodium Chloride 110 mls @ 100 mls/hr IV DAILY [facility] Stop: 05/14/21 10:05 Last Admin: 05/12/21 10:51 Dose: 100 mls/hr Documented by: Insulin Human Lispro (Insulin Lispro 100 Unit/Ml 3 Ml Vial) 0 unit SUBCUT QIDACHS [facility]; Protocol Last Admin: 05/12/21 11:58 Dose: 4 unit Documented by: Levothyroxine Sodium (Levothyroxine Sodium 25 Mcg Tablet) 25 mcg PO DAILY@0600 [facility] Last Admin: 05/12/21 06:19 Dose: 25 mcg Documented by: Loratadine (Loratadine 10 Mg Tablet) 10 mg PO DAILY [facility] Last Admin: 05/12/21 08:10 Dose: 10 mg Documented by: Magnesium Hydroxide (Milk Of Magnesia 30 Ml Oral.Susp) 15 ml PO BID PRN PRN Reason: Constipation Melatonin (Melatonin 3 Mg Tablet) 6 mg PO BEDTIME PRN PRN Reason: Insomnia Last Admin: 05/11/21 20:54 Dose: 6 mg Documented by: Metoprolol Tartrate (Metoprolol Tartrate 25 Mg Tablet) 25 mg PO BID [facility]; Protocol Last Admin: 05/12/21 08:10 Dose: 25 mg Documented by: Montelukast Sodium (Montelukast Sodium 10 Mg Tablet) 10 mg PO BEDTIME [facility] Last Admin: 05/11/21 20:54 Dose: 10 mg Documented by: Nitroglycerin (Nitroglycerin 0.4 Mg Tab.Subl) 0.4 mg SUBLINGUAL Q5MX3 PRN PRN Reason: chest Omeprazole (Omeprazole 20 Mg Capsule.Dr) 20 mg PO DAILY@0630 [facility] Last Admin: 05/12/21 06:19 Dose: 20 mg Documented by: Psyllium Hydrophilic Mucilloid (Psyllium Seed 3.4 Gm Powd.Pack) 3.4 gm PO DAILY [facility] Last Admin: 05/12/21 08:10 Dose: 3.4 gm Documented by: Senna (Sennosides 8.6 Mg Tablet) 17.2 mg PO BEDTIME PRN PRN Reason: Constipation Sodium Chloride (0.9 % Sodium Chloride Flush 3 Ml Syringe) 3 ml IVFLUSH QSHIFT [facility] Last Admin: 05/12/21 08:11 Dose: 3 ml Documented by: Sodium Chloride (0.9 % Sodium Chloride Flush 10 Ml Syringe) 5 ml IVFLUSH TID [facility] Last Admin: 05/12/21 08:11 Dose: 5 ml Documented by: Vitamin D (Cholecalciferol (Vitamin D3) 25 Mcg Tablet) 25 mcg PO DAILY [facility] Last Admin: 05/12/21 08:10 Dose: 25 mcg Documented by: Time Spent With Patient Time: Total time spent is greater than 50% in coordination of care (as stuart cespedes) at patient's floor/unit and/or counseling patient: Time with patient: 15 - 24 minutes Progress Note: Quality Stroke Does the patient have a stroke diagnosis?: No Procedures Date of Service Date of Service: 05/12/21
--- NOTE | 2021-05-12 14:44 | HO.POSTANES ---
Post Anesthesia Evaluation Post Anesthesia Evaluation Vital Signs: Vital Signs Temp Pulse Resp BP Pulse Ox 05/12/21 11:24 98.2 F 72 18 112/53 L 98 05/12/21 08:10 87 148/74 H 05/12/21 06:58 97 F 87 20 148/74 H 94 05/12/21 03:53 98.2 F 85 20 131/70 96 Anesthesia: Monitored Mental Status: Awake Pain Control: Satisfactory Nausea/Vomiting: None Hydration: Adequate Anesthesia-Related Issues: No Anes. Related Issues
[2021-05-12 16:35] LABS: Glucose, Whole Blood 161 mg/dL (60-115)
[2021-05-12 20:07] LABS: Glucose, Whole Blood 195 mg/dL (60-115)
[2021-05-12] MEDS: Atorvastatin Calcium 40 MG TABLET PO (21:12)
[2021-05-12] MEDS: Gabapentin 100 MG CAPSULE PO (21:12)
[2021-05-12] MEDS: Montelukast Sodium 10 MG TABLET PO (21:12)
--- NOTE | 2021-05-22 01:46 | PC.NURSE ---
Late note - clarified w/ primary RN, Margret Da Silva, full unit RBC infused - Last 4 digits of unit 0910. I&O edited in TAR to reflect unit transfused.
== END 2021-05-13 02:02 | disposition skilled nursing facility (03) | DRG 674 ==
LOC: HO.ED 16:00 → HO.EDOVER 20:23 → HO.S3 05-03 11:33 → HO.IMC 05-07 10:41
PROVIDERS: Internal Medicine; Internal Medicine Hypertension Specialist; Internal Medicine Nephrology; Radiology Diagnostic Radiology; Admitting Provider Hospitalist; Emergency Provider Emergency Medicine; PCP Internal Medicine; Visit Provider Student in an Organized Health Care Education/Training Program
PROC: 0JH63XZ Insertion of Tunneled Vascular Access Device into Chest Subcutaneous Tissue and Fascia, Percutaneous Approach (ICD-10-PCS; principal; 2021-05-03 15:30)
PROC: 02PY33Z Removal of Infusion Device from Great Vessel, Percutaneous Approach (ICD-10-PCS; principal; 2021-05-11 15:30)
DX: I12.0 Hypertensive chronic kidney disease with stage 5 chronic kidney disease or end stage renal disease (principal); E87.2 Acidosis; N18.5 Chronic kidney disease, stage 5; N17.9 Acute kidney failure, unspecified; T82.868A Thrombosis due to vascular prosthetic devices, implants and grafts, initial encounter; I82.621 Acute embolism and thrombosis of deep veins of right upper extremity; E11.22 Type 2 diabetes mellitus with diabetic chronic kidney disease; Z99.2 Dependence on renal dialysis; E78.5 Hyperlipidemia, unspecified; K21.9 Gastro-esophageal reflux disease without esophagitis; D63.1 Anemia in chronic kidney disease; I48.0 Paroxysmal atrial fibrillation; I95.9 Hypotension, unspecified; Z20.822 Contact with and (suspected) exposure to COVID-19; E03.9 Hypothyroidism, unspecified; Z79.4 Long term (current) use of insulin; Z79.01 Long term (current) use of anticoagulants; Z79.890 Hormone replacement therapy; Z79.899 Other long term (current) drug therapy
CPT/HCPCS: 36410; 36415; 36558; 71045; 71250; 74176; 80048; 80053; 82272; 82947; 83540; 83735; 84484; 85025; 85027; 85610; 85730; 86704; 86706; 86850; 86900; 86901; 86923; 87045; 87046; 87340; 87493; 87635; 89055; 90999; 93005; 93971; 94640; 96361; 96374; 96375; 96376; 97162; 99285; C1750; C1752; C1769; J0885; J1170; J1200; J2270; J2405; J2916; J3010; J3475; P9016

== ENCOUNTER 2021-05-14 07:30 | Outpatient (REF) | payer SELFPAY ==
[2021-05-14 07:42] LABS: Hematocrit 28.4 % (37.0-47.0); Hemoglobin 9.3 g/dl (12.0-16.0); Mean Corpuscular HGB Conc 32.7 g/dl (31.0-35.0); Mean Corpuscular Hemoglobin 30.6 pg (27.0-33.0); Mean Corpuscular Volume 93.4 fL (80.0-98.0); Mean Platelet Volume 10.2 fL (9.4-12.3); NRBC Pct Auto 0.2 /100WBC (0.0-0.2); Platelet Count 227 X10*3/uL (160-400); Red Blood Count 3.04 X10*6/uL (4.20-5.50); Red Cell Distribution Width 13.9 % (11.0-16.0); White Blood Count 16.4 X10*3/uL (4.8-10.8)
[2021-05-14 07:58] LABS: Alanine Aminotransferase < 6 U/L (0-31); Albumin Level 2.8 g/dL (3.5-5.0); Alkaline Phosphatase 134 U/L (39-117); Anion Gap 18 (12-20); Aspartate Amino Transferase 21 U/L (5-31); Bilirubin Total 0.2 mg/dL (0.0-1.0); Blood Urea Nitrogen 40 mg/dL (9-16); Calcium 6.9 mg/dL (8.4-10.2); Carbon Dioxide 19 mmol/L (22-29); Chloride 91 mmol/L (96-108); Glucose Random 203 mg/dL (60-115); Potassium 4.1 mmol/L (3.3-5.1); Sodium 124 mmol/L (135-145); Total Protein 5.6 g/dL (6.5-8.0)
[2021-05-14 08:02] LABS: Band Neutrophils Percent 4 % (3-5); Eosinophils Absolute Manual 0.8 X10*3/uL (0.0-0.4); Eosinophils Percent Manual 5 % (0-4); Lymphocytes Absolute Manual 1.1 X10*3/uL (1.2-4.9); Lymphocytes Percent Manual 7 % (20-40); Metamyelocytes Absolute 0.8 X10*3/uL; Metamyelocytes Percent 5 %; Monocytes Absolute Manual 0.7 X10*3/uL (0.1-1.2); Monocytes Percent Manual 4 % (2-11); Neutrophils Percent Manual 75 % (45-73)
[2021-05-14 08:04] LABS: Burr Cells 1+ (0-2) /OIF; Hypochromasia 1+ (5-14) /OIF; Platelet Estimate NORMAL (NORMAL); Polychromasia 1+ (0-2) /OIF; RBC Morphology NOTED
[2021-05-14 08:06] LABS: Platelet Morphology Comment NORMAL
[2021-05-14 08:08] LABS: Estimated Glomerular Filt Rate 6
== END 2021-05-14 07:31 | disposition home or self-care (01) ==
LOC: HO.MMNH1L 07:30
PROVIDERS: Visit Provider Family Medicine
DX: E11.22 Type 2 diabetes mellitus with diabetic chronic kidney disease (principal); N18.5 Chronic kidney disease, stage 5; N17.9 Acute kidney failure, unspecified
CPT/HCPCS: 36415; 80053; 85007; 85027

== ENCOUNTER 2021-05-14 15:32 | Emergency (ER) | payer MEDICARE, MEDICAID, SELFPAY ==
--- NOTE | ~2021-05-14 | XR_ITS ---
EXAMINATION: XR CHEST CLINICAL INFORMATION: Weakness. COMPARISON: None TECHNIQUE: Frontal view of the chest was obtained. FINDINGS: There is mild cardiomegaly with increased pulmonary vascularity likely volume overload. The lungs are expanded with patchy opacity left lung base likely infiltrate or atelectasis. No gross bony abnormality seen. There is a right jugular dialysis catheter with its tip at the atrio-caval junction. There is old healed right proximal humeral fracture with metallic plate and screws. XR/XR chest 1V IMPRESSION: Cardiomegaly with increased pulmonary vascularity likely volume overload. There is left lower lobe consolidation/atelectasis, similar to previous study 05/02/2021.
[2021-05-14 15:56] VITALS: BP 119/93; BP 152/46; PULSE 80; PULSE 81; RESP 18; TEMP 37.1; O2SAT 100; O2SAT 97; BMI 39.1
--- NOTE | 2021-05-14 16:07 | ECG_ITS ---
Test Reason : ABNORMAL LABS Blood Pressure : / mmHG Vent. Rate : 084 BPM Atrial Rate : 000 BPM P-R Int : 000 ms QRS Dur : 086 ms QT Int : 362 ms P-R-T Axes : 000 038 099 degrees QTc Int : 427 ms Atrial fibrillation with premature ventricular or aberrantly conducted complexes Nonspecific T wave abnormality Abnormal ECG When compared with ECG of 07-MAY-2021 10:15, Vent. rate has decreased BY 58 BPM Referred By: Ana Pina Electronically Signed By:JANIE ISAACS MD
--- NOTE | 2021-05-14 16:09 | ED.RECABL ---
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 Per EMS patient was sent over for low sodium level and a high white blood cell count. Patient tells me that labs were drawn yesterday. She tells me these are routine labs. She has no complaints and is feeling well. She has a past medical history of hypertension, hyperlipidemia, diabetes, chronic kidney disease currently on dialysis, GERD, hypothyroidism, AFib on anticoagulation. Of note patient has had several ER visits and admissions in the last month for acute on chronic kidney disease to this facility and on her last admission and did start dialysis. Patient tells me her last dialysis was today Related Data Home Medications Medication Instructions Recorded Confirmed tramadol 50 mg tablet 1 tab PO DAILY PRN 05/02/21 05/02/21 Previous Rx's Medication Instructions Recorded ferrous sulfate 250 mg (50 mg 250 mg PO DAILY 30 Days #30 tab 04/12/21 iron) tablet,extended release levothyroxine 25 mcg capsule 25 mcg PO DAILY #30 cap 04/12/21 pen needle, diabetic 32 gauge x #50 ea 04/12/21 (BD Sandra 2nd Gen Pen Needle) blood sugar diagnostic (FreeStyle #100 ea 04/13/21 Lite Strips) blood-glucose meter (FreeStyle #1 ea 04/13/21 Lite Meter) lancets 28 gauge (FreeStyle #100 ea 04/13/21 Lancets) insulin NPH-regular 70-30 U-100 20 unit (0.2 mL) SUBCUT BID 30 04/17/21 insulin 100 unit/mL subcutaneous Days #15 ml pen (Novolin 70-30 FlexPen U-100 Insulin) psyllium husk (aspartame) 3.4 gram 3.4 g PO DAILY #30 ea 04/17/21 oral powder packet (Metamucil Fiber Singles) blood sugar diagnostic (FreeStyle #100 ea 04/26/21 Lite Strips) blood-glucose meter (FreeStyle #1 ea 04/26/21 Lite Meter) aspirin 81 mg tablet,delayed 81 mg PO DAILY #30 tab 05/05/21 release atorvastatin 40 mg tablet 40 mg PO BEDTIME #30 tab 05/05/21 cholecalciferol (vitamin D3) 25 25 mcg PO DAILY #30 cap 05/05/21 mcg (1,000 unit) capsule (Vitamin D3) furosemide 20 mg tablet 20 mg PO BID #60 tab 05/05/21 loratadine 10 mg tablet 10 mg PO DAILY #30 tab 05/05/21 montelukast 10 mg tablet 10 mg PO BEDTIME #30 tab 05/05/21 pantoprazole 20 mg tablet,delayed 20 mg PO DAILY #30 tab 05/05/21 release cyanocobalamin (vitamin B-12) 1,000 mcg IM Q28D 28 Days #1 ml 05/08/21 1,000 mcg/mL injection solution apixaban 5 mg tablet (Eliquis) 5 mg PO BID 30 Days #60 tab 05/12/21 diltiazem HCl 120 mg 120 mg PO DAILY 30 Days #30 cap 05/12/21 capsule,extended release 24 hr (Cardizem CD) gabapentin 100 mg capsule 100 mg PO BEDTIME 30 Days #30 cap 05/12/21 metoprolol tartrate 25 mg tablet 25 mg PO BID #30 tab 05/12/21 Allergies Allergy/AdvReac Type Severity Reaction Status Date / Time No Known Allergies Allergy Verified 04/26/21 10:46 Review of Systems Review of Systems: Yes all other systems are reviewed and are negative Constitutional: Constitutional: Reports no additional constitutional complaints, Denies body ache(s), Denies chills, Denies fever(s), Denies headache(s) and Denies weakness Eyes: Eyes: Reports no additional eye complaints and Denies change in vision ENT: Reports system reviewed and no additional complaints, except as documented, Denies dizziness, Denies headache(s), Denies nasal congestion, Denies nasal discharge and Denies neck pain Cardiovascular: Cardiovascular: Reports no additional cardiovascular complaints, Denies chest pain, Denies leg edema and Denies dyspnea Respiratory: Respiratory: Reports no additional respiratory complaints, Denies cough and Denies dyspnea Gastrointestinal: Gastrointestinal: Reports no additional gastrointestinal complaints, Denies abdominal pain, Denies diarrhea, Denies nausea and Denies vomiting Genitourinary: Genitourinary: Reports no additional female genitourinary complaints and Denies urinary incontinence Musculoskeletal: Musculoskeletal: Reports no additional musculoskeletal complaints, Denies back pain, Denies arthralgias, Denies joint swelling, Denies neck pain, Denies numbness and Denies tingling Integumentary/Breasts: Skin/Breast: Reports system reviewed and no additional complaints, except as docu and Denies rash Neurologic: Reports system reviewed and no additional complaints, except as documented, Denies Abnormal speech present, Denies dizziness, Denies headache(s), Denies numbness, Denies tingling and Denies weakness PMF Past Medical History Attestation statement: The following information was validated with the patient. Source: old records reviewed and nursing notes reviewed Medical History Arthritis Benign essential hypertension Chronic kidney disease, stage V GERD (gastroesophageal reflux disease) Hypothyroidism Paroxysmal atrial fibrillation Pure hypercholesterolemia Toe amputee Type 2 diabetes mellitus Surgical History Hx of appendectomy Social History Social History Household Members: None Household Members Other:: self, son lives close by Housing: House Do you presently have visiting nurse or other home services: No Alcohol intake: never Patient Tobacco Use Status: Never used Tobacco Tobacco use type: Cigarette e-Cigarette/Vaping Use: Never Used Second Hand Smoke Exposure: No service: No Current occupational status: retired Physical Exam Vital Signs: Vital Signs: Last Vital Signs Temp 98.2 F 05/14/21 19:08 Pulse 20 L 05/14/21 21:59 Resp 16 05/14/21 19:08 BP 120/44 L 05/14/21 19:08 Pulse Ox 100 05/14/21 19:08 Oxygen Flow Rate 2 05/14/21 15:56 Body Mass Index 39.1 Const: General: cooperative, healthy appearing, comfortable and no acute distress Orientation/consciousness: patient oriented x3 Limitations: no limitations HENMT: Head: Yes normal to inspection Ears: hearing grossly normal bilaterally General nose exam: Normal external nose present Face and sinus: Yes normal facial exam Mouth: Normal oral and palatal mucosa present Throat: Yes posterior oropharynx normal Eyes: General: appearance normal, both eyes and all related structures Pupils: Equal, round and reactive pupils present Neck: Neck: Yes normal visual inspection Chest: Chest palpation & inspection: normal inspection of the chest Resp: Effort & Inspection: normal respiratory effort Auscultation: clear to auscultation bilaterally Cardio: Rate: regular rate Rhythm: regular rhythm Peripheral pulses: Peripheral pulses 2+ throughout GI: Inspection: Yes normal to inspection Palpation (GI): Soft to palpation and nontender Auscultation: normal bowel sounds Back/Spine/Pelvis: Thoracic/Lumbar Spine: thoracic and lumbar spine normal to inspection Skin: General skin exam: no rashes or lesions noted Neuro: General: patient oriented x3, no focal motor deficits and normal sensation to monofilament Cranial nerves: Yes Equal, round and reactive pupils present Cognition (Neuro): normal cognition Speech: No Abnormal speech present Gait exam (Neuro): Normal gait present Motor exam (neuro): 5/5 motor strength present throughout Extrem: General: Yes normal to inspection, Yes no calf tenderness and Yes edema (1 +bilaterally ) Course Course Course Narrative: 75-year-old female coming from a long term with reports of abnormal labs. Per report patient had routine labs done yesterday which showed a sodium of 124 and a WBC count of 16,000. patient has no complaints. She is currently on dialysis and her last dialysis was yesterday She was recently treated for pna with cefuroxime (04/26) She has no cough or shortness of breath. Patient is on oxygen chronically with no increase in oxygen requirement I reviewed the patient's chart quite extensively. Her last sodium was 127 and her WBC count is chronically elevated anywhere from [id number]. Will check labs, chest x-ray, UA, EKG, COVID screen 1840- patient WBC count is actually improved from previous. Her chest x-ray does not show any signs of infection her COVID screen is negative. This is chronically elevated and not from current infection. Her corrected sodium is 138 today.. Her renal function is improved. clinically she appears well. chest x-ray does shows some mild cardiomegaly with an elevated BNP however clinically she does not appear in fluid overload. Troponin chronically elevated with no chest pain or EKG changes. From CKD. Discussed findings with patient and the son at the bedside. Plan for transfer back to [facility] the UA was not done as the patient does not make urine. MDM - Recheck/Abnormal Lab/Rx Medical Records Attestation: I reviewed the patient's medical records. Lab Data Attestation: I reviewed the patient's lab results. Result diagrams: 05/14/21 17:30 05/14/21 17:30 Labs: Lab Results 05/14/21 05/14/21 05/14/21 Range/Units 17:30 17:30 17:30 WBC 15.9 H (4.8-10.8) X10*3/uL RBC 3.04 L (4.20-5.50) X10*6/uL Hgb 9.3 L (12.0-16.0) g/dl Hct 28.1 L (37.0-47.0) % MCV 92.4 (80.0-98.0) fL MCH 30.6 (27.0-33.0) pg MCHC 33.1 (31.0-35.0) g/dl RDW 14.0 (11.0-16.0) % Plt Count 206 (160-400) X10*3/uL MPV 9.7 (9.4-12.3) fL Immature Gran % (Auto) 4.5 H (0.0-0.4) % Neut % (Auto) 79.0 H (45-73) % Lymph % (Auto) 6.6 L (20-40) % [place] % (Auto) 5.5 (2-11) % Eos % (Auto) 4.1 H (0-4) % Baso % (Auto) 0.3 (0-2) % Lymph # (Auto) 1.1 L (1.2-4.9) X10*3/uL [place] # (Auto) 0.9 (0.1-1.2) X10*3/uL Eos # (Auto) 0.7 H (0.0-0.4) X10*3/uL Baso # (Auto) 0.0 (0.0-0.2) X10*3/uL Abs Immat Gran (auto) 0.71 H (0.00-0.03) X10*3/uL Absolute Neuts (auto) 12.5 H (2.0-8.3) x10*3/uL Absolute Nucleated RBC 0.000 (0.0-0.012) X10*3/uL Nucleated RBC % (auto) 0.0 (0.0-0.2) /100WBC PT 15.4 H (9.9-13.0) SEC INR 1.3 H (0.9-1.1) Sodium 132 L (135-145) mmol/L Potassium 3.9 (3.3-5.1) mmol/L Chloride 96 (96-108) mmol/L Carbon Dioxide 26 (22-29) mmol/L Anion Gap 14 (12-20) BUN 11 D (9-16) mg/dL Creatinine 2.79 H (0.5-1.4) mg/dL Estim Creat Clear Calc 18.0 Estimated GFR 17 Random Glucose 330 H (60-115) mg/dL Osmolality (281-305) mosm/kg Lactic Acid (0.5-2.0) mmol/L Calcium 7.0 L (8.4-10.2) mg/dL Magnesium 1.9 (1.6-2.6) mg/dL Total Bilirubin < 0.2 (0.0-1.0) mg/dL Direct Bilirubin < 0.2 (0.0-0.5) mg/dL AST 22 (5-31) U/L ALT 6 (0-31) U/L Alkaline Phosphatase 136 H (39-117) U/L Troponin I High Sens (<3.5-17.0) ng/L B-Natriuretic Peptide (<100) pg/mL Total Protein 5.7 L (6.5-8.0) g/dL Albumin 2.7 L (3.5-5.0) g/dL COVID-19 ([facility]) (Negative) COVID-19 Clin Com 05/14/21 05/14/21 05/14/21 Range/Units 17:30 17:30 17:30 WBC (4.8-10.8) X10*3/uL RBC (4.20-5.50) X10*6/uL Hgb (12.0-16.0) g/dl Hct (37.0-47.0) % MCV (80.0-98.0) fL MCH (27.0-33.0) pg MCHC (31.0-35.0) g/dl RDW (11.0-16.0) % Plt Count (160-400) X10*3/uL MPV (9.4-12.3) fL Immature Gran % (Auto) (0.0-0.4) % Neut % (Auto) (45-73) % Lymph % (Auto) (20-40) % [place] % (Auto) (2-11) % Eos % (Auto) (0-4) % Baso % (Auto) (0-2) % Lymph # (Auto) (1.2-4.9) X10*3/uL [place] # (Auto) (0.1-1.2) X10*3/uL Eos # (Auto) (0.0-0.4) X10*3/uL Baso # (Auto) (0.0-0.2) X10*3/uL Abs Immat Gran (auto) (0.00-0.03) X10*3/uL Absolute Neuts (auto) (2.0-8.3) x10*3/uL Absolute Nucleated RBC (0.0-0.012) X10*3/uL Nucleated RBC % (auto) (0.0-0.2) /100WBC PT (9.9-13.0) SEC INR (0.9-1.1) Sodium (135-145) mmol/L Potassium (3.3-5.1) mmol/L Chloride (96-108) mmol/L Carbon Dioxide (22-29) mmol/L Anion Gap (12-20) BUN (9-16) mg/dL Creatinine (0.5-1.4) mg/dL Estim Creat Clear Calc Estimated GFR Random Glucose (60-115) mg/dL Osmolality 287 (281-305) mosm/kg Lactic Acid (0.5-2.0) mmol/L Calcium (8.4-10.2) mg/dL Magnesium (1.6-2.6) mg/dL Total Bilirubin (0.0-1.0) mg/dL Direct Bilirubin (0.0-0.5) mg/dL AST (5-31) U/L ALT (0-31) U/L Alkaline Phosphatase (39-117) U/L Troponin I High Sens 11.2 (<3.5-17.0) ng/L B-Natriuretic Peptide 995 H (<100) pg/mL Total Protein (6.5-8.0) g/dL Albumin (3.5-5.0) g/dL COVID-19 ([facility]) (Negative) COVID-19 Clin Com 05/14/21 05/14/21 Range/Units 17:31 17:35 WBC (4.8-10.8) X10*3/uL RBC (4.20-5.50) X10*6/uL Hgb (12.0-16.0) g/dl Hct (37.0-47.0) % MCV (80.0-98.0) fL MCH (27.0-33.0) pg MCHC (31.0-35.0) g/dl RDW (11.0-16.0) % Plt Count (160-400) X10*3/uL MPV (9.4-12.3) fL Immature Gran % (Auto) (0.0-0.4) % Neut % (Auto) (45-73) % Lymph % (Auto) (20-40) % [place] % (Auto) (2-11) % Eos % (Auto) (0-4) % Baso % (Auto) (0-2) % Lymph # (Auto) (1.2-4.9) X10*3/uL [place] # (Auto) (0.1-1.2) X10*3/uL Eos # (Auto) (0.0-0.4) X10*3/uL Baso # (Auto) (0.0-0.2) X10*3/uL Abs Immat Gran (auto) (0.00-0.03) X10*3/uL Absolute Neuts (auto) (2.0-8.3) x10*3/uL Absolute Nucleated RBC (0.0-0.012) X10*3/uL Nucleated RBC % (auto) (0.0-0.2) /100WBC PT (9.9-13.0) SEC INR (0.9-1.1) Sodium (135-145) mmol/L Potassium (3.3-5.1) mmol/L Chloride (96-108) mmol/L Carbon Dioxide (22-29) mmol/L Anion Gap (12-20) BUN (9-16) mg/dL Creatinine (0.5-1.4) mg/dL Estim Creat Clear Calc Estimated GFR Random Glucose (60-115) mg/dL Osmolality (281-305) mosm/kg Lactic Acid 1.1 (0.5-2.0) mmol/L Calcium (8.4-10.2) mg/dL Magnesium (1.6-2.6) mg/dL Total Bilirubin (0.0-1.0) mg/dL Direct Bilirubin (0.0-0.5) mg/dL AST (5-31) U/L ALT (0-31) U/L Alkaline Phosphatase (39-117) U/L Troponin I High Sens (<3.5-17.0) ng/L B-Natriuretic Peptide (<100) pg/mL Total Protein (6.5-8.0) g/dL Albumin (3.5-5.0) g/dL COVID-19 ([facility]) Negative (Negative) COVID-19 Clin Com See Note Imaging Data Chest x-ray: Attestation: I personally reviewed and interpreted this imaging study as follows: Radiologist's impression: FINDINGS: There is mild cardiomegaly with increased pulmonary vascularity likely volume overload. The lungs are expanded with patchy opacity left lung base likely infiltrate or atelectasis. No gross bony abnormality seen. There is a right jugular dialysis catheter with its tip at the atrio-caval junction. There is old healed right proximal humeral fracture with metallic plate and screws. XR/XR chest 1V IMPRESSION: Cardiomegaly with increased pulmonary vascularity likely volume overload. ? There is left lower lobe consolidation/atelectasis, similar to previous study 05/02/2021. ECG Data Attestation: I personally reviewed and interpreted this ECG as follows: ECG interpretation date: 05/14/21 ECG interpretation time: 16:24 Interpretation: AFib with a rate of 84, normal QRS, normal QT Procedures EJ/Peripheral Line Neck L: Time Out Performed: No Skin Cleansed in Sterile Fashion: Yes Size (gauge): 20 IV Secured and Dressing Applied: Yes Patient Tolerated Procedure: well Additional Comments: done by Dr. Collins Discharge Plan Discharge Clinical Impression: CKD (chronic kidney disease) Leukocytosis Qualifiers: Leukocytosis type: unspecified Qualified Code(s): D72.829 - Elevated white blood cell count, unspecified Patient Disposition: Xfer [facility] Instructions: Chronic Kidney Disease (ED), Leukocytosis (ED) Prescriptions: No Action atorvastatin 40 mg tablet 40 mg PO BEDTIME Qty: 30 RF: 3 montelukast 10 mg tablet 10 mg PO BEDTIME Qty: 30 RF: 3 loratadine 10 mg tablet 10 mg PO DAILY Qty: 30 RF: 3 pantoprazole 20 mg tablet,delayed release (DR/EC) 20 mg PO DAILY Qty: 30 RF: 3 furosemide 20 mg tablet 20 mg PO BID Qty: 60 RF: 3 cholecalciferol (vitamin D3) [Vitamin D3] 25 mcg (1,000 unit) capsule 25 mcg PO DAILY Qty: 30 RF: 3 aspirin 81 mg tablet,delayed release (DR/EC) 81 mg PO DAILY Qty: 30 RF: 3 Hold Instructions: MD to decide cyanocobalamin (vitamin B-12) 1,000 mcg/mL solution 1,000 mcg IM Q28D 28 Days Qty: 1 RF: 5 Novolin 70-30 FlexPen U-100 100 unit/mL (70-30) insulin pen 20 unit subcut BID 30 Days Qty: 15 RF: 0 Metamucil Fiber Singles 3.4 gram Powder In Packet 3.4 g PO DAILY Qty: 30 RF: 0 tramadol 50 mg tablet 1 tab PO DAILY PRN (Reason: Pain (Scale Score 4-6)) RF: 0 diltiazem HCl [Cardizem CD] 120 mg Capsule,Extended Release 24hr 120 mg PO DAILY 30 Days Qty: 30 RF: 0 gabapentin 100 mg Capsule 100 mg PO BEDTIME 30 Days Qty: 30 RF: 0 Eliquis 5 mg Tablet 5 mg PO BID 30 Days Qty: 60 RF: 0 metoprolol tartrate 25 mg tablet 25 mg PO BID Qty: 30 RF: 3 ferrous sulfate 250 mg (50 mg iron) tablet extended release 250 mg PO DAILY 30 Days Qty: 30 RF: 0 levothyroxine 25 mcg capsule 25 mcg PO DAILY Qty: 30 RF: 0 (DME) pen needle, diabetic [BD Sandra 2nd Gen Pen Needle] 32 gauge x 5/32 needle See Rx Instructions .Route Qty: 50 RF: 0 (DME) blood-glucose meter [FreeStyle Lite Meter] Kit See Rx Instructions .Route Qty: 1 RF: 0 (DME) FreeStyle Lite Strips Strip See Rx Instructions .ROUTE .MEDSUPPLY Qty: 100 RF: 0 (DME) lancets [FreeStyle Lancets] 28 gauge misc See Rx Instructions .ROUTE .MEDSUPPLY Qty: 100 RF: 0 (DME) FreeStyle Lite Strips Strip See Rx Instructions .ROUTE .MEDSUPPLY Qty: 100 RF: 12 (DME) blood-glucose meter [FreeStyle Lite Meter] Kit See Rx Instructions .Route Qty: 1 RF: 0 Referrals: Lonnie Khan MD [Primary Care Provider] - 2 days Interventions: ED Discharge Assessment Last Done: 05/14/21 21:27 Discharge Date/Time: 05/14/21 22:00
--- NOTE | 2021-05-14 16:59 | PC.NURSE ---
Difficult stick, phlebotomy called to assist
[2021-05-14 17:36] LABS: MANUAL DIFF FLAG NO
[2021-05-14 17:38] LABS: Basophils Percent Auto 0.3 % (0-2); Eosinophils Absolute Auto 0.7 X10*3/uL (0.0-0.4); Eosinophils Percent Auto 4.1 % (0-4); Hematocrit 28.1 % (37.0-47.0); Hemoglobin 9.3 g/dl (12.0-16.0); Imm Gran Abs Auto 0.71 X10*3/uL (0.00-0.03); Imm Gran Pct Auto 4.5 % (0.0-0.4); Lymphocytes Absolute Auto 1.1 X10*3/uL (1.2-4.9); Lymphocytes Percent Auto 6.6 % (20-40); Mean Corpuscular HGB Conc 33.1 g/dl (31.0-35.0); Mean Corpuscular Hemoglobin 30.6 pg (27.0-33.0); Mean Corpuscular Volume 92.4 fL (80.0-98.0); Mean Platelet Volume 9.7 fL (9.4-12.3); Monocytes Absolute Auto 0.9 X10*3/uL (0.1-1.2); Monocytes Percent Auto 5.5 % (2-11); Neutrophils Absolute Auto 12.5 x10*3/uL (2.0-8.3); Platelet Count 206 X10*3/uL (160-400); Red Blood Count 3.04 X10*6/uL (4.20-5.50); White Blood Count 15.9 X10*3/uL (4.8-10.8)
[2021-05-14 17:44] LABS: INTERNATIONAL NORM RATIO 1.3 (0.9-1.1); Prothrombin Time 15.4 SEC (9.9-13.0)
[2021-05-14 17:53] LABS: Lactic Acid 1.1 mmol/L (0.5-2.0)
[2021-05-14 18:06] LABS: B Type Natriuretic Peptide 995 pg/mL (<100); Troponin-I High Sensitivity 11.2 ng/L (<3.5-17.0)
[2021-05-14 18:10] LABS: COVID-19 Test Negative (Negative)
[2021-05-14 18:10] LABS: Osmolality, Serum 287 mosm/kg (281-305)
[2021-05-14 18:11] LABS: Alanine Aminotransferase 6 U/L (0-31); Albumin Level 2.7 g/dL (3.5-5.0); Alkaline Phosphatase 136 U/L (39-117); Anion Gap 14 (12-20); Aspartate Amino Transferase 22 U/L (5-31); Bilirubin Direct < 0.2 mg/dL (0.0-0.5); Bilirubin Total < 0.2 mg/dL (0.0-1.0); Blood Urea Nitrogen 11 mg/dL (9-16); Carbon Dioxide 26 mmol/L (22-29); Chloride 96 mmol/L (96-108); Estimated Glomerular Filt Rate 17; Glucose Random 330 mg/dL (60-115); Magnesium 1.9 mg/dL (1.6-2.6); Potassium 3.9 mmol/L (3.3-5.1); Sodium 132 mmol/L (135-145); Total Protein 5.7 g/dL (6.5-8.0)
--- NOTE | 2021-05-14 18:50 | PC.NURSE ---
report given to Parviz Osorio
[2021-05-14 19:08] VITALS: BP 120/44; PULSE 88; RESP 16; TEMP 36.8; O2SAT 100
[2021-05-14 21:59] VITALS: PULSE 20
== END 2021-05-14 22:00 | disposition skilled nursing facility (03) ==
PROVIDERS: Nurse Practitioner Family; Emergency Provider Emergency Medicine; PCP Internal Medicine
DX: D72.829 Elevated white blood cell count, unspecified (principal); E11.22 Type 2 diabetes mellitus with diabetic chronic kidney disease; I12.9 Hypertensive chronic kidney disease with stage 1 through stage 4 chronic kidney disease, or unspecified chronic kidney disease; N18.4 Chronic kidney disease, stage 4 (severe); Z99.2 Dependence on renal dialysis; R60.0 Localized edema; Z20.822 Contact with and (suspected) exposure to COVID-19; E78.5 Hyperlipidemia, unspecified; I48.0 Paroxysmal atrial fibrillation; Z79.01 Long term (current) use of anticoagulants; Z79.4 Long term (current) use of insulin; Z79.02 Long term (current) use of antithrombotics/antiplatelets; Z79.899 Other long term (current) drug therapy; Z99.81 Dependence on supplemental oxygen
CPT/HCPCS: 36410; 36415; 71045; 80048; 80076; 83605; 83735; 83880; 83930; 84484; 85025; 85610; 87040; 87635; 93005; 99284

== ENCOUNTER 2021-05-21 16:23 | Inpatient (IN) | payer MEDICARE, MEDICAID, SELFPAY ==
[2021-05-21] VITALS (14 sets, daily range): BP systolic 104–151; BP diastolic 37–112; PULSE 82–150; RESP 18–24; TEMP 36.3–37.2; O2SAT 90–100; BMI 29.0
--- NOTE | ~2021-05-21 | US_ITS ---
EXAMINATION: ULTRASOUND-GUIDED THORACENTESIS CLINICAL INFORMATION: Pleural effusion COMPARISON: Previous chest x-ray most recent from yesterday and chest CT most recent 05/25/2021 TECHNIQUE: Procedure and risks and benefits including bleeding, infection and pneumothorax were discussed with the patient through an translator/interpreter and informed consent was obtained. The left posterior lateral chest was prepped and draped in the usual sterile fashion. The skin and soft tissues were anesthetized with 1% lidocaine plain. Using ultrasound guidance and a 4 Welsh rapid centesis catheter, access to the left pleural effusion was obtained. 700 mL of dark serosanguineous/slightly bloody fluid was removed. Diagnostic specimen was sent. FINDINGS: There is a moderate left pleural effusion. US/US drain thoracentesis w image IMPRESSION: Ultrasound-guided left thoracentesis.
--- NOTE | ~2021-05-21 | XR_ITS ---
EXAMINATION: XR CHEST CLINICAL INFORMATION: Shortness of breath COMPARISON: Chest x-ray 05/14/2021. CT chest 05/07/2021 TECHNIQUE: Frontal portable view of the chest was obtained. 1702 hours FINDINGS: Persistent dense left lung base with silhouetting of the diaphragm. There is retrocardiac air bronchogram.. No change since chest x-ray 05/14/2021. Right lung remains normally aerated. Blunting of left costophrenic angle probably due to pleural effusion as well. Right IJ catheter tip at caval atrial junction unchanged position since prior study. Status post ORIF right proximal humerus. XR/XR chest 1V IMPRESSION: Persistent dense left lung base unchanged since chest x-ray 05/14/2021. Left lower lobe Consolidation/atelectasis and possible left pleural effusion.
--- NOTE | ~2021-05-21 | CT_ITS ---
EXAMINATION: CT CHEST WITHOUT CONTRAST CLINICAL INFORMATION: Shortness of breath. Hypoxia. COMPARISON: Previous chest x-ray most recent April 2021 TECHNIQUE: Multidetector volumetric CT imaging of the chest was done. Axial MIP volume rendering provided. Sagittal and coronal reformatted images were obtained. This CT examination was performed using dose optimization techniques as appropriate, variously including the following: *Automated exposure control *Adjustment of mA and/or kV according to patient size (this includes techniques or standardized protocols for targeted exams where dose is matched to indication/reason for exam; i.e. extremities or head) *Use of iterative reconstruction technique DLP: 255 mGy-cm FINDINGS: LUNGS: There is compressive atelectasis of the right lower lobe, left upper and left lower lobes by the pleural effusions. The lungs are otherwise clear. MEDIASTINUM: The heart is enlarged. There is coronary artery and aortic valve calcification. There is a small pericardial effusion. There is a right jugular dialysis catheter with tip projecting over the distal SVC. There are no enlarged hilar or mediastinal lymph nodes. PLEURA: There are large bilateral pleural effusions, left greater than right. AXILLA: No lymphadenopathy. UPPER ABDOMEN: Unremarkable. OSSEOUS STRUCTURES: There are degenerative changes of the spine. There is orthopedic hardware in the right proximal humerus. CT/CT chest wo con IMPRESSION: Enlarged heart and small pericardial effusion. Large bilateral pleural effusions, left greater than right, and left upper,and bilateral lower lobe compressive atelectasis secondary to the effusions. Fleischner guidelines were followed.
--- NOTE | ~2021-05-21 | XR_ITS ---
EXAMINATION: XR CHEST CLINICAL INFORMATION: Pleural effusion. COMPARISON: Chest CT dated 05/25/2021, chest radiograph dated 05/21/2021 TECHNIQUE: Frontal view of the chest was obtained. FINDINGS: Support devices: Right-sided large-bore central venous catheter with tip terminating in the superior vena cava without interval change. There is a persistent moderate-sized left pleural effusion with mild interval decrease. The right pleural effusion is not as well-visualized. The heart and mediastinal structures are unremarkable. XR/XR chest 1V IMPRESSION: Moderate left pleural effusion has mildly decreased in size. The known right pleural effusion is not as well-visualized on this radiographic study.
--- NOTE | ~2021-05-21 | XR_ITS ---
EXAMINATION: XR CHEST CLINICAL INFORMATION: Post left thoracentesis COMPARISON: Previous chest x-ray 05/27/2021 TECHNIQUE: Frontal view of the chest was obtained. FINDINGS: The cardiac silhouette is enlarged but stable. There is a right jugular permacath with tip projecting over the SVC. The left pleural effusion is decreased in size post left thoracentesis. There is no pneumothorax. There is minimal atelectasis at the left lung base. The right lung is clear. There is no right pleural effusion. There are degenerative changes of the spine. There is orthopedic hardware in the right proximal humerus. XR/XR chest 1V IMPRESSION: No pneumothorax post left thoracentesis.
--- NOTE | ~2021-05-21 | XR_ITS ---
EXAMINATION: XR CHEST CLINICAL INFORMATION: Effusion. Reassess. COMPARISON: May 26, 2021 TECHNIQUE: AP portable view of the chest was obtained. FINDINGS: There is hazy density with lung consolidation within the left lower lung. No significant changes seen compared to previous day's study. No significant consolidation is seen within the right lung. There is some density at the right cardiophrenic border however this may be related to fat pad or small amount of parenchymal disease. Heart normal size. No evidence of airspace edema. No pneumothorax. Right internal jugular dialysis catheter in place with tip at the caval atrial junction. 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 XR/XR chest 1V IMPRESSION: No significant change in moderate left pleural effusion and lower lobe consolidation.
--- NOTE | ~2021-05-21 | US_ITS ---
EXAMINATION: US VENOUS WITH DOPPLER UPPER EXTREMITY, RIGHT CLINICAL INFORMATION: History of thrombus basilic vein 05/05/2021 COMPARISON: None TECHNIQUE: Ultrasound of the upper extremity is performed using compression sonography and color and pulse Doppler flow with assessment of augmentation of flow. There is also imaging and Doppler assessment of the jugular and subclavian veins. Spectral analysis with color-flow imaging is performed. FINDINGS: Right IJ catheter in place. There is a small volume of thrombus adjacent to the catheter in the IJ. Image 10/11. The remainder of the right upper extremity veins are normal with normal vascular flow and compressibility. This includes the subclavian, axillary, brachial, basilic and cephalic veins. The previously seen basilic vein thrombus has resolved. US/US venous duplex UE RT IMPRESSION: Small volume of thrombus adjacent to the catheter in the right internal jugular vein. The remainder of the veins visualized in the upper arm are normal. This critical result was discussed with Magy ROBERTS on 05/26/2021, 3:00 PM and it was ascertained that the content and urgency of the report was understood at the time of direct communication.
--- NOTE | 2021-05-21 04:48 | ECG_ITS ---
Test Reason : CP Blood Pressure : / mmHG Vent. Rate : 138 BPM Atrial Rate : 178 BPM P-R Int : 000 ms QRS Dur : 080 ms QT Int : 290 ms P-R-T Axes : 000 055 223 degrees QTc Int : 439 ms Atrial fibrillation Nonspecific T wave abnormality Abnormal ECG When compared with ECG of 14-MAY-2021 16:24, Heart rate has increased Referred By: Lyla Dennis Electronically Signed By:JANIE ISAACS MD
--- NOTE | 2021-05-21 16:30 | ED.ARRPALP ---
HPI - Arrhythmia/Palpitations General Chief Complaint: Arrhythmia/Palpitations Stated Complaint: afib Source: patient and EMS Mode of arrival: EMS Limitations: no limitations History of Present Illness HPI narrative: 75-year-old female [facility] from [facility] for tachycardia and shortness of breath. Has known AFib, on Eliquis, metoprolol and Cardizem. Is on dialysis 3 times a week. MD complaint: heart racing , palpitations and atrial fibrillation Onset (ago): day(s) (2) Duration: constant Severity: moderate Context: occurred during rest Arrhythmia history: atrial fibrillation and on anti-coagulants Associated symptoms: shortness of breath Related Data Home Medications Medication Instructions Recorded Confirmed tramadol 50 mg tablet 25 mg PO Q24H PRN 05/02/21 05/21/21 acetaminophen 325 mg tablet 650 mg PO Q6H PRN 05/21/21 05/21/21 bisacodyl 10 mg rectal suppository 10 mg [place] Q3D PRN 05/21/21 05/21/21 (Dulcolax (bisacodyl)) cyanocobalamin (vitamin B-12) 1,000 mcg IM Q28D 05/21/21 05/21/21 1,000 mcg/mL injection kit dextrose 40 % oral gel (Glucose 10 g PO Q15M PRN 05/21/21 05/21/21 Gel) ferrous sulfate 325 mg (65 mg 325 mg PO DAILY 05/21/21 05/21/21 iron) tablet furosemide 20 mg tablet 20 mg PO BID@0900,1700 05/21/21 05/21/21 glucagon HCl 1 mg solution for 1 mg SUBCUT Q20M PRN 05/21/21 05/21/21 injection (Glucagon (HCl) Emergency Kit) insulin lispro 100 unit/mL 1 sliding scale dose SUBCUT TIDAC 05/21/21 05/21/21 subcutaneous solution levothyroxine 25 mcg capsule 25 mcg PO DAILY@0600 05/21/21 05/21/21 pantoprazole 20 mg tablet,delayed 20 mg PO DAILY@0600 05/21/21 05/21/21 release sodium chloride 0.65 % nasal spray 1 spray INTRANASAL Q2H PRN 05/21/21 05/21/21 aerosol (Saline Nasal) Previous Rx's Medication Instructions Recorded pen needle, diabetic 32 gauge x #50 ea 10/21/21 5/32 (BD Sandra 2nd Gen Pen Needle) blood sugar diagnostic (FreeStyle #100 ea 04/13/21 Lite Strips) blood-glucose meter (FreeStyle #1 ea 04/13/21 Lite Meter) lancets 28 gauge (FreeStyle #100 ea 04/13/21 Lancets) psyllium husk (aspartame) 3.4 gram 3.4 g PO DAILY #30 ea 04/17/21 oral powder packet (Metamucil Fiber Singles) blood sugar diagnostic (FreeStyle #100 ea 04/26/21 Lite Strips) blood-glucose meter (FreeStyle #1 ea 04/26/21 Lite Meter) atorvastatin 40 mg tablet 40 mg PO BEDTIME #30 tab 05/05/21 cholecalciferol (vitamin D3) 25 25 mcg PO DAILY #30 cap 05/05/21 mcg (1,000 unit) capsule (Vitamin D3) loratadine 10 mg tablet 10 mg PO DAILY #30 tab 05/05/21 montelukast 10 mg tablet 10 mg PO BEDTIME #30 tab 05/05/21 apixaban 5 mg tablet (Eliquis) 5 mg PO BID 30 Days #60 tab 05/12/21 diltiazem HCl 120 mg 120 mg PO DAILY 30 Days #30 cap 05/12/21 capsule,extended release 24 hr (Cardizem CD) gabapentin 100 mg capsule 100 mg PO BEDTIME 30 Days #30 cap 05/12/21 metoprolol tartrate 25 mg tablet 25 mg PO BID #30 tab 05/12/21 Allergies Allergy/AdvReac Type Severity Reaction Status Date / Time No Known Allergies Allergy Verified 04/26/21 10:46 Review of Systems Review of Systems: Constitutional: No Fever, No Chills, No Night Sweats, No Fatigue, No Malaise ENT/Mouth: No Hearing loss, No Ear Pain, No Nasal Congestion, No Sinus Pain, No Hoarseness, No sore throat, No Rhinorrhea, No Swallowing Difficulty Eyes: No Eye Pain, No Swelling, No Redness, No Foreign Body, No Discharge, No Vision Changes Cardiovascular: No Chest Pain, positive SOB, No Dyspnea on Exertion, No Orthopnea, positive Edema, positive Palpitations Respiratory: No Cough, No Sputum, No Wheezing, No Smoke Exposure, positive Dyspnea Gastrointestinal: No Nausea, No Vomiting, No Diarrhea, No Constipation, No abdominal Pain, No Hematochezia, No Melena Genitourinary: no irregular bleeding, No Dysuria, No Urinary Frequency, No Hematuria, No Urinary Incontinence, No Urgency, No Flank Pain, No Urinary Flow Changes, No Hesitancy Musculoskeletal: No joint pain, No Myalgias, No Joint Swelling Skin: No Skin Lesions, No rash Neuro: No Weakness, No Numbness, No Paresthesias, No Loss of Consciousness, No Dizziness, No Headache Psych: No Anxiety/Panic, No Depression, No SI/HI/AH/VH, No Social Issues Heme/Lymph: No Bruising, No Bleeding,No Lymphadenopathy Endocrine: No Polyuria, No Polydipsia, No Temperature Intolerance Yes all other systems are reviewed and are negative [facility] Past Medical History Attestation statement: The following information was validated with the patient. Source: old records reviewed Medical History Anemia Arthritis Benign essential hypertension Chronic kidney disease, stage V GERD (gastroesophageal reflux disease) Hypothyroidism Nephrotic range proteinuria PAF (paroxysmal atrial fibrillation) Paroxysmal atrial fibrillation Pure hypercholesterolemia Toe amputee Type 2 diabetes mellitus Surgical History Hx of appendectomy Social History Social History Household Members: None Household Members Other:: self, son lives close by Housing: House Do you presently have visiting nurse or other home services: No Alcohol intake: never Patient Tobacco Use Status: Never used Tobacco Tobacco use type: Cigarette e-Cigarette/Vaping Use: Never Used Second Hand Smoke Exposure: No Advance Directives: No Advance Directives Information Provided: Yes service: No Current occupational status: retired Physical Exam Vital Signs: Vital Signs: Last Vital Signs Temp 98.9 F 05/21/21 17:02 Pulse 110 H 05/21/21 18:14 Resp 19 05/21/21 18:14 BP 142/112 H 05/21/21 18:14 Pulse Ox 100 05/21/21 18:14 Oxygen Flow Rate 3 05/21/21 17:02 Body Mass Index 29.0 Appearance: Alert. Oriented X3. Moderate distress. Ken port to the right chest wall Eyes: Pupils equal, round and reactive to light. ENT: Pharynx normal. Dry mucous membranes. Neck: Normal inspection. Neck supple. CVS: AFib. Equal pulses to all extremities. Brisk capillary refill. Respiratory: Tachypneic. Decreased lung sounds on the right side. Abdomen: Soft and nontender. Skin: Skin warm and dry. Normal skin color. Normal skin turgor. Extremities: +4 pitting edema to bilateral lower extremities. Moves all extremities against resistance. Neuro: No motor deficit. No sensory deficit. Cranial nerves 2-12 intact. Course Course Course Narrative: 75-year-old female presents via EMS for AFib. EMS was called to correction facility for a low heart rate in the 30s, however when they arrived heart rate was in the 140s to 170. Patient receives dialysis Friday and Friday. Has a Ken port to the right chest wall for a known pleural effusion. Patient is alert oriented x4. No complaints of pain at this time. States to be short of breath and feels racing heart. Denies fevers, chills, any other complaints. EKG indicates AFib, will give diltiazem 10 mg IV push. 4:45 p.m. heart rate in the 80-100 range at this time. 5:00 p.m. white count 19.9 however patient does have chronically elevated leukocytosis. Infection is not suspected at this time. 5:[address] Dennis at bedside, echo indicates posterior pericardial effusion without tamponade suspected to have 150-200 mL of fluid. Call out to Nephrology. Patient is anasarcic, will initiate dao for fluid management and 100 mg of IV push Lasix. Plan to admit to ICU. 6:29 pm discussion with Nephrology, Dr Dennis discussed patient earlier. Plan is for dialysis. Consultations Consultation #1: nephrology Time: 18:27 MDM - Arrhythmia/Palpitations Differential Diagnosis Differential diagnosis: Likely palpitations, artial fibrillation and artial flutter Medical Records Attestation: I reviewed the patient's medical records. Lab Data Attestation: I reviewed the patient's lab results. Result diagrams: 05/21/21 16:56 05/21/21 16:56 Labs: Lab Results 05/21/21 05/21/21 05/21/21 Range/Units 16:56 16:56 16:56 WBC 19.9 H (4.8-10.8) X10*3/uL RBC 2.75 L (4.20-5.50) X10*6/uL Hgb 8.6 L (12.0-16.0) g/dl Hct 25.8 L (37.0-47.0) % MCV 93.8 (80.0-98.0) fL MCH 31.3 (27.0-33.0) pg MCHC 33.3 (31.0-35.0) g/dl RDW 14.2 (11.0-16.0) % Plt Count 356 D (160-400) X10*3/uL MPV 9.4 (9.4-12.3) fL Immature Gran % (Auto) 0.8 H (0.0-0.4) % Neut % (Auto) 86.0 H (45-73) % Lymph % (Auto) 4.8 L (20-40) % [place] % (Auto) 6.9 (2-11) % Eos % (Auto) 1.2 (0-4) % Baso % (Auto) 0.3 (0-2) % Lymph # (Auto) 1.0 L (1.2-4.9) X10*3/uL [place] # (Auto) 1.4 H (0.1-1.2) X10*3/uL Eos # (Auto) 0.2 (0.0-0.4) X10*3/uL Baso # (Auto) 0.1 (0.0-0.2) X10*3/uL Abs Immat Gran (auto) 0.16 H (0.00-0.03) X10*3/uL Absolute Neuts (auto) 17.1 H (2.0-8.3) x10*3/uL Absolute Nucleated RBC 0.000 (0.0-0.012) X10*3/uL Nucleated RBC % (auto) 0.0 (0.0-0.2) /100WBC PT 22.8 H (9.9-13.0) SEC INR 2.0 H (0.9-1.1) Sodium 124 L (135-145) mmol/L Potassium 4.2 (3.3-5.1) mmol/L Chloride 88 L (96-108) mmol/L Carbon Dioxide 22 (22-29) mmol/L Anion Gap 18 (12-20) BUN 34 H D (9-16) mg/dL Creatinine 4.56 H* (0.5-1.4) mg/dL Estim Creat Clear Calc 11.8 Estimated GFR 9 Random Glucose 231 H (60-115) mg/dL Lactic Acid (0.5-2.0) mmol/L Calcium 7.4 L (8.4-10.2) mg/dL Total Bilirubin 0.4 (0.0-1.0) mg/dL Direct Bilirubin 0.2 (0.0-0.5) mg/dL AST 21 (5-31) U/L ALT 14 (0-31) U/L Alkaline Phosphatase 152 H (39-117) U/L Troponin I High Sens (<3.5-17.0) ng/L B-Natriuretic Peptide (<100) pg/mL Total Protein 6.0 L (6.5-8.0) g/dL Albumin 3.0 L (3.5-5.0) g/dL Lipase 16 (8-78) U/L Influenza Type A (PCR) (Negative) Influenza Type B (PCR) (Negative) RSV RNA Qual (PCR) (Negative) SARS-CoV-2 RNA (RT-PCR) (Negative) 05/21/21 05/21/21 05/21/21 Range/Units 16:56 17:00 17:00 WBC (4.8-10.8) X10*3/uL RBC (4.20-5.50) X10*6/uL Hgb (12.0-16.0) g/dl Hct (37.0-47.0) % MCV (80.0-98.0) fL MCH (27.0-33.0) pg MCHC (31.0-35.0) g/dl RDW (11.0-16.0) % Plt Count (160-400) X10*3/uL MPV (9.4-12.3) fL Immature Gran % (Auto) (0.0-0.4) % Neut % (Auto) (45-73) % Lymph % (Auto) (20-40) % [place] % (Auto) (2-11) % Eos % (Auto) (0-4) % Baso % (Auto) (0-2) % Lymph # (Auto) (1.2-4.9) X10*3/uL [place] # (Auto) (0.1-1.2) X10*3/uL Eos # (Auto) (0.0-0.4) X10*3/uL Baso # (Auto) (0.0-0.2) X10*3/uL Abs Immat Gran (auto) (0.00-0.03) X10*3/uL Absolute Neuts (auto) (2.0-8.3) x10*3/uL Absolute Nucleated RBC (0.0-0.012) X10*3/uL Nucleated RBC % (auto) (0.0-0.2) /100WBC PT (9.9-13.0) SEC INR (0.9-1.1) Sodium (135-145) mmol/L Potassium (3.3-5.1) mmol/L Chloride (96-108) mmol/L Carbon Dioxide (22-29) mmol/L Anion Gap (12-20) BUN (9-16) mg/dL Creatinine (0.5-1.4) mg/dL Estim Creat Clear Calc Estimated GFR Random Glucose (60-115) mg/dL Lactic Acid 1.2 (0.5-2.0) mmol/L Calcium (8.4-10.2) mg/dL Total Bilirubin (0.0-1.0) mg/dL Direct Bilirubin (0.0-0.5) mg/dL AST (5-31) U/L ALT (0-31) U/L Alkaline Phosphatase (39-117) U/L Troponin I High Sens 9.8 (<3.5-17.0) ng/L B-Natriuretic Peptide 685 H (<100) pg/mL Total Protein (6.5-8.0) g/dL Albumin (3.5-5.0) g/dL Lipase (8-78) U/L Influenza Type A (PCR) NEGATIVE (Negative) Influenza Type B (PCR) NEGATIVE (Negative) RSV RNA Qual (PCR) NEGATIVE (Negative) SARS-CoV-2 RNA (RT-PCR) NEGATIVE (Negative) Imaging Data Chest x-ray: Attestation: I personally reviewed and interpreted this imaging study as follows: Radiologist's impression: EXAMINATION: XR CHEST CLINICAL INFORMATION: Shortness of breath COMPARISON: Chest x-ray 05/14/2021. CT chest 05/07/2021 TECHNIQUE: Frontal portable view of the chest was obtained. 1702 hours FINDINGS: Persistent dense left lung base with silhouetting of the diaphragm. There is retrocardiac air bronchogram.. No change since chest x-ray 05/14/2021. Right lung remains normally aerated. Blunting of left costophrenic angle probably due to pleural effusion as well. Right IJ catheter tip at caval atrial junction unchanged position since prior study. Status post ORIF right proximal humerus. XR/XR chest 1V IMPRESSION: Persistent dense left lung base unchanged since chest x-ray 05/14/2021. Left lower lobe Consolidation/atelectasis and possible left pleural effusion. ECG Data Attestation: I personally reviewed and interpreted this ECG as follows: ECG interpretation date: 05/21/21 Prior ECG tracings: available for review Critical Care Time Critical Care Time Critical Care Time: Yes Total Critical Care Time: 60 Attestation: I have personally provided critical care time exclusive of time spent on separately billable procedures. Time includes review of laboratory data, radiology results, discussion with consultants, and monitoring for potential decompensation. Interventions were performed as documented. Discharge Plan Discharge Clinical Impression: Acute pericardial effusion Atrial fibrillation Qualifiers: Atrial fibrillation type: unspecified Qualified Code(s): I48.91 - Unspecified atrial fibrillation Renal failure Qualifiers: Renal failure chronicity: acute on chronic Acute renal failure type: unspecified Chronic kidney disease stage: on chronic dialysis Qualified Code(s): N17.9 - Acute kidney failure, unspecified Patient Disposition: Admitted As Inpatient
[2021-05-21] MEDS: dilTIAZem HCL 50 MG/10 ML VIAL 10 MG IVPUSH (16:45)
[2021-05-21 17:01] LABS: Basophils Absolute Auto 0.1 X10*3/uL (0.0-0.2); Basophils Percent Auto 0.3 % (0-2); Eosinophils Absolute Auto 0.2 X10*3/uL (0.0-0.4); Eosinophils Percent Auto 1.2 % (0-4); Hematocrit 25.8 % (37.0-47.0); Hemoglobin 8.6 g/dl (12.0-16.0); Imm Gran Abs Auto 0.16 X10*3/uL (0.00-0.03); Imm Gran Pct Auto 0.8 % (0.0-0.4); Lymphocytes Percent Auto 4.8 % (20-40); MANUAL DIFF FLAG NO; Mean Corpuscular HGB Conc 33.3 g/dl (31.0-35.0); Mean Corpuscular Hemoglobin 31.3 pg (27.0-33.0); Mean Corpuscular Volume 93.8 fL (80.0-98.0); Mean Platelet Volume 9.4 fL (9.4-12.3); Monocytes Absolute Auto 1.4 X10*3/uL (0.1-1.2); Monocytes Percent Auto 6.9 % (2-11); Neutrophils Absolute Auto 17.1 x10*3/uL (2.0-8.3); Platelet Count 356 X10*3/uL (160-400); Red Blood Count 2.75 X10*6/uL (4.20-5.50); Red Cell Distribution Width 14.2 % (11.0-16.0); White Blood Count 19.9 X10*3/uL (4.8-10.8)
[2021-05-21 17:06] LABS: Prothrombin Time 22.8 SEC (9.9-13.0)
[2021-05-21 17:21] LABS: Lactic Acid 1.2 mmol/L (0.5-2.0)
[2021-05-21 17:23] LABS: B Type Natriuretic Peptide 685 pg/mL (<100); Troponin-I High Sensitivity 9.8 ng/L (<3.5-17.0)
[2021-05-21 17:32] LABS: Alanine Aminotransferase 14 U/L (0-31); Alkaline Phosphatase 152 U/L (39-117); Aspartate Amino Transferase 21 U/L (5-31); Bilirubin Direct 0.2 mg/dL (0.0-0.5); Bilirubin Total 0.4 mg/dL (0.0-1.0); Blood Urea Nitrogen 34 mg/dL (9-16); Calcium 7.4 mg/dL (8.4-10.2); Creatinine Clr Calc Pharmacy 11.8; Estimated Glomerular Filt Rate 9; Glucose Random 231 mg/dL (60-115); Lipase 16 U/L (8-78)
[2021-05-21] MEDS: dilTIAZem HCL 125 MG in 0.9 % Sodium Chloride 100 ML 10 MG IVCONT (17:32)
[2021-05-21 17:33] LABS: Anion Gap 18 (12-20); Carbon Dioxide 22 mmol/L (22-29); Chloride 88 mmol/L (96-108); Potassium 4.2 mmol/L (3.3-5.1); Sodium 124 mmol/L (135-145)
--- NOTE | 2021-05-21 17:43 | P.HPCC_ITS ---
History of Present Illness Date of Service: 05/21/21 Attending physician on admission: Lyla Dennis Chief Complaint: Increased shortness of breath Patient was just here in the hospital with known longstanding insulin-dependent diabetes mellitus and stage 5 renal failure now dialysis dependent with a PermCath on the right side extending into the right superior to the superior vena cava presented with a sense of palpitations and she has been followed by Cardiology for paroxysmal atrial fibrillation but presents with a moderately elevated heart rate despite metoprolol and Cardizem marked increase in work of breathing with diaphragmatic effort accessory muscle use we had wheezing and considerable at anasarca with increased bilateral pleural effusions and a +thoracic chest x-ray so clearly the patient is relatively under dialyzed uremic and my bedside echocardiogram demonstrated a 150 cc posterior pericardial effusion but no tamponade fully expanding in diastole of with her right ventricle and has marked mild concentric left ventricular hypertrophy but preserved systolic reserve no primary valve disease Bottom line is she needs to be dialyzed and she needs to be admitted the stat for dialysis tonight Review of Systems Review of Systems: Outside of the sense of palpitations and increased shortness of breath no other complaints most especially no chest pain no fever no chills Yes all other systems are reviewed and are negative [facility] Past Medical History Medical History (Updated 05/22/21 @ 11:51 by Lyla Dennis MD) Anemia Anemia Arthritis Benign essential hypertension Chronic kidney disease, stage V GERD (gastroesophageal reflux disease) Hypothyroidism Nephrotic range proteinuria PAF (paroxysmal atrial fibrillation) Paroxysmal atrial fibrillation Pure hypercholesterolemia Toe amputee Type 2 diabetes mellitus Surgical History Surgical History Hx of appendectomy Social History Social History Household Members: None Household Members Other:: self, son lives close by Housing: House Do you presently have visiting nurse or other home services: No Alcohol intake: never Patient Tobacco Use Status: Never used Tobacco Tobacco use type: Cigarette e-Cigarette/Vaping Use: Never Used Second Hand Smoke Exposure: No service: No Current occupational status: retired Meds Allergies Allergy/AdvReac Type Severity Reaction Status Date / Time No Known Allergies Allergy Verified 04/26/21 10:46 Active Medications: Current Medications Diltiazem HCl 125 mg/ Sodium (Chloride) 125 mls @ 0 mls/hr IVCONT .Q0M [facility]; Protocol Last Admin: 05/21/21 17:32 Dose: 10 mg/hr, 10 mls/hr Documented by: Pharmacy Consult (Consult Rx Perform Med Rec) 1 each MISCELLANE ONCE STA Stop: 05/21/21 17:12 Home Medications Medication Instructions Recorded Confirmed Last Taken Type tramadol 50 mg tablet 25 mg PO Q24H PRN 05/02/21 05/21/21 Unknown History acetaminophen 325 mg tablet 650 mg PO Q6H PRN 05/21/21 05/21/21 Unknown History bisacodyl 10 mg rectal suppository 10 mg [place] Q3D PRN 05/21/21 05/21/21 Unknown History (Dulcolax (bisacodyl)) cyanocobalamin (vitamin B-12) 1,000 mcg IM Q28D 05/21/21 05/21/21 05/14/21 History 1,000 mcg/mL injection kit dextrose 40 % oral gel (Glucose 10 g PO Q15M PRN 05/21/21 05/21/21 Unknown History Gel) ferrous sulfate 325 mg (65 mg 325 mg PO DAILY 05/21/21 05/21/21 05/21/21 History iron) tablet furosemide 20 mg tablet 20 mg PO BID@0900,1700 05/21/21 05/21/21 05/21/21 History glucagon HCl 1 mg solution for 1 mg SUBCUT Q20M PRN 05/21/21 05/21/21 Unknown History injection (Glucagon (HCl) Emergency Kit) insulin lispro 100 unit/mL 1 sliding scale dose SUBCUT TIDAC 05/21/21 05/21/21 Unknown History subcutaneous solution levothyroxine 25 mcg capsule 25 mcg PO DAILY@0600 05/21/21 05/21/21 05/21/21 History pantoprazole 20 mg tablet,delayed 20 mg PO DAILY@0600 05/21/21 05/21/21 05/21/21 History release sodium chloride 0.65 % nasal spray 1 spray INTRANASAL Q2H PRN 05/21/21 05/21/21 Unknown History aerosol (Saline Nasal) Physical Exam Vital Signs: Vital Signs: Last Vital Signs Temp 98.9 F 05/21/21 17:02 Pulse 119 H 05/21/21 17:39 Resp 19 05/21/21 17:39 BP 151/89 H 05/21/21 17:39 Pulse Ox 99 05/21/21 17:39 Oxygen Flow Rate 3 05/21/21 17:02 Body Mass Index 29.0 Awake and alert and nonfocal neurologically but in significant respiratory distress with wheezing and marked diaphragmatic effort 4+ bilateral lower extremity and lower abdominal wall edema and significant inferior vena caval dilatation with lack of inspiratory narrowing Abdomen is soft with no organomegaly Results Labs CBC and Chem 7: 05/22/21 05:19 05/22/21 05:19 Labs: Laboratory Results - last 24 hr 05/21/21 05/21/21 05/21/21 16:56 16:56 16:56 MCV 93.8 MCH 31.3 MCHC 33.3 RDW 14.2 Plt Count 356 D MPV 9.4 Immature Gran % (Auto) 0.8 H Neut % (Auto) 86.0 H Lymph % (Auto) 4.8 L [place] % (Auto) 6.9 Eos % (Auto) 1.2 Baso % (Auto) 0.3 Lymph # (Auto) 1.0 L [place] # (Auto) 1.4 H Eos # (Auto) 0.2 Baso # (Auto) 0.1 Abs Immat Gran (auto) 0.16 H Absolute Neuts (auto) 17.1 H Absolute Nucleated RBC 0.000 Nucleated RBC % (auto) 0.0 PT 22.8 H INR 2.0 H Anion Gap 18 Estim Creat Clear Calc 11.8 Estimated GFR 9 Random Glucose 231 H Lactic Acid Calcium 7.4 L Total Bilirubin 0.4 Direct Bilirubin 0.2 AST 21 ALT 14 Alkaline Phosphatase 152 H Troponin I High Sens B-Natriuretic Peptide Total Protein 6.0 L Albumin 3.0 L Lipase 16 05/21/21 05/21/21 16:56 17:00 MCV MCH MCHC RDW Plt Count MPV Immature Gran % (Auto) Neut % (Auto) Lymph % (Auto) [place] % (Auto) Eos % (Auto) Baso % (Auto) Lymph # (Auto) [place] # (Auto) Eos # (Auto) Baso # (Auto) Abs Immat Gran (auto) Absolute Neuts (auto) Absolute Nucleated RBC Nucleated RBC % (auto) PT INR Anion Gap Estim Creat Clear Calc Estimated GFR Random Glucose Lactic Acid 1.2 Calcium Total Bilirubin Direct Bilirubin AST ALT Alkaline Phosphatase Troponin I High Sens 9.8 B-Natriuretic Peptide 685 H Total Protein Albumin Lipase Assessment and Plan (1) Atrial fibrillation: Qualifiers: Atrial fibrillation type: unspecified Qualified Code(s): I48.91 - Unspecified atrial fibrillation Status: Acute (2) Renal failure: Qualifiers: Acute renal failure type: unspecified Chronic kidney disease stage: on chronic dialysis Renal failure chronicity: acute on chronic Qualified Code(s): N17.9 - Acute kidney failure, unspecified; N18.9 - Chronic kidney disease, unspecified; Z99.2 - Dependence on renal dialysis Status: Acute (3) Acute pericardial effusion: Status: Acute (4) ESRD needing dialysis: Status: Acute (5) GERD (gastroesophageal reflux disease): Status: Acute (6) Hypothyroidism: Status: Acute (7) Benign essential hypertension: Status: Acute (8) Type 2 diabetes mellitus: Status: Acute (9) HLD (hyperlipidemia): Qualifiers: Hyperlipidemia type: mixed hyperlipidemia Qualified Code(s): E78.2 - M ixed hyperlipidemia Status: Acute (10) CAD (coronary artery disease): Qualifiers: Coronary Disease-Associated Artery/Lesion type: [place] artery [place] vs. transplanted heart: [place] heart Associated angina: without angina Qualified Code(s): I25.10 - Atherosclerotic heart disease of [place] coronary artery without angina pectoris Status: Acute (11) Iron deficiency: Status: Acute (12) Pernicious anemia: Status: Acute (13) Obese: Qualifiers: Obesity type: due to excess calories Obesity classification: adult class 2 (BMI 35 - 39.9) Serious obesity comorbidity presence: with serious comorbidity Body mass index: BMI 39.0-39.9 Qualified Code(s): E66.01 - Morbid (severe) obesity due to excess calories; Z68.39 - Body mass index [BMI] 39.0- 39.9, adult Status: Acute (14) Osteoarthritis: Qualifiers: Osteoarthritis location: unspecified site Osteoarthritis type: unspecified Qualified Code(s): M19.90 - Unspecified osteoarthritis, unspecified site Status: Acute (15) Uremia: Status: Acute (16) Anemia: Status: Acute Stable degree of anemia but marked fluid overload clearly uremic with other physical signs such as the posterior pericardial effusion indicating inadequate dialysis and needs to be dialyzed tonight on a stat basis and at least 3-4 L removed tonight
[2021-05-21 17:50] LABS: Influenza A PCR NEGATIVE (Negative); Influenza B PCR NEGATIVE (Negative); Resp Syncy Virus RNA Qual PCR NEGATIVE (Negative); SARS COV2 PCR INHOUSE NEGATIVE (Negative)
--- NOTE | 2021-05-21 17:53 | PHA.MEDREC ---
Pharmacy Consult ? Medication Reconciliation Pharmacy has completed the medication reconciliation. pt from [facility]
[2021-05-21] MEDS: Furosemide 100 MG/10 ML VIAL IVPUSH (18:30)
[2021-05-21 18:51] LABS: Appearance Urine CLOUDY; Color Urine YELLOW; Glucose Urine UA 250 MG/DL (NEG); Leukocyte Esterase Urine NEG (NEG); Nitrite Urine NEG (NEG); UACC Culture Trigger NO; Urine Blood 1+ (NEG); Urine Ketones NEG (NEG); Urine Protein 3+ MG/DL (NEG-TRACE)
[2021-05-21 18:53] LABS: VBG Base Excess 0.6 mmol/L; VBG HCO3 27 mmol/L (22-26); VBG pCO2 56 mmHg; VBG pO2 53 mmHg
[2021-05-21 18:53] LABS: Glucose, Whole Blood 198 mg/dL (60-115)
[2021-05-21 18:53] LABS: Venous Blood Gas Refer to POC result
[2021-05-21 19:00] LABS: Bacteria Urine 1+ /LPF; UACC CULT YES
--- NOTE | 2021-05-21 19:31 | PC.NURSE ---
Addendum entered by Arleth Douglass 05/21/21 19:34: Hospitalist to look into orders and plan and to contact this RN. Original Note: This RN contacting MD regarding transfer orders. Pt currently on a Dilt drip @ 10 mg/hr however the transfer orders include a Metoprolol drip. This RN told pt will be receiving dialysis tonight but has 1800 Eliquis that was not given. This RN attempting to confirm whether pt will or will not be receiving dialysis prior to giving PO medications. VSS at this time. Pt denies pain, only reporting SOB, on 2 lpm, satting @ 98%. Family at bedside. Pt aware of plan for ICU bed. This RN to contact ICU to give nurse to nurse.
--- NOTE | 2021-05-21 19:45 | PC.NURSE ---
Report given to AMINA Duncan. This RN to get pt ready for transport to ICU.
--- NOTE | 2021-05-21 19:53 | PC.NURSE ---
Per Hospitalist, plan to continue Dilt drip at this time as rate is controlled and BP is WNL.
[2021-05-21 20:49] LABS: Glucose, Whole Blood 171 mg/dL (60-115)
[2021-05-21] MEDS: Apixaban 2.5 MG TABLET PO (20:59)
[2021-05-21] MEDS: Montelukast Sodium 10 MG TABLET PO (22:22)
[2021-05-21] MEDS: Gabapentin 100 MG CAPSULE PO (22:22)
[2021-05-21] MEDS: Insulin Lispro 100 UNIT/ML 3 ML VIAL SUBCUT (22:22)
--- NOTE | 2021-05-21 22:57 | PC.NURSE ---
Metoprolol infusion delayed until after dialysis per PA
[2021-05-21 23:03] LABS: Glucose, Whole Blood 141 mg/dL (60-115)
[2021-05-22] VITALS (17 sets, daily range): BP systolic 116–171; BP diastolic 43–75; PULSE 73–94; RESP 14–25; TEMP 35.8–37.1; O2SAT 97–100; BMI 34.1
[2021-05-22] MEDS: dilTIAZem HCL 125 MG in 0.9 % Sodium Chloride 100 ML 7.5 MG IVCONT (04:06)
[2021-05-22 05:25] LABS: VBG Base Excess -0.8 mmol/L; VBG HCO3 24 mmol/L (22-26); VBG pCO2 40 mmHg; VBG pH 7.38 (7.32-7.43); VBG pO2 65 mmHg
[2021-05-22] MEDS: Levothyroxine Sodium 25 MCG TABLET PO (05:26)
[2021-05-22 05:41] LABS: MANUAL DIFF FLAG NO
[2021-05-22 05:48] LABS: Basophils Absolute Auto 0.1 X10*3/uL (0.0-0.2); Basophils Percent Auto 0.3 % (0-2); Eosinophils Absolute Auto 0.1 X10*3/uL (0.0-0.4); Eosinophils Percent Auto 0.5 % (0-4); Hematocrit 24.4 % (37.0-47.0); Hemoglobin 7.7 g/dl (12.0-16.0); Imm Gran Abs Auto 0.12 X10*3/uL (0.00-0.03); Imm Gran Pct Auto 0.7 % (0.0-0.4); Lymphocytes Absolute Auto 0.7 X10*3/uL (1.2-4.9); Mean Corpuscular HGB Conc 31.6 g/dl (31.0-35.0); Mean Corpuscular Hemoglobin 29.5 pg (27.0-33.0); Mean Corpuscular Volume 93.5 fL (80.0-98.0); Mean Platelet Volume 9.3 fL (9.4-12.3); Monocytes Percent Auto 5.8 % (2-11); Neutrophils Absolute Auto 15.5 x10*3/uL (2.0-8.3); Neutrophils Percent Auto 88.7 % (45-73); Platelet Count 309 X10*3/uL (160-400); Red Blood Count 2.61 X10*6/uL (4.20-5.50); Red Cell Distribution Width 13.9 % (11.0-16.0); White Blood Count 17.5 X10*3/uL (4.8-10.8)
[2021-05-22 05:50] LABS: Prothrombin Time 22.8 SEC (9.9-13.0)
[2021-05-22 05:52] LABS: Partial Thromboplastin Time 41.8 SEC (24.1-38.0)
[2021-05-22 06:05] LABS: Anion Gap 15 (12-20); Blood Urea Nitrogen 18 mg/dL (9-16); Calcium 7.4 mg/dL (8.4-10.2); Carbon Dioxide 21 mmol/L (22-29); Chloride 97 mmol/L (96-108); Creatinine Clr Calc Pharmacy 19.2; Estimated Glomerular Filt Rate 15; Glucose Random 135 mg/dL (60-115); Magnesium 1.8 mg/dL (1.6-2.6); Phosphorus 3.5 mg/dL (2.7-4.5); Potassium 3.6 mmol/L (3.3-5.1); Sodium 129 mmol/L (135-145)
[2021-05-22 06:09] LABS: B Type Natriuretic Peptide 514 pg/mL (<100)
[2021-05-22 06:58] LABS: TSH reflex Free T4 1.52 uIU/mL (0.32-4.0)
[2021-05-22 07:28] LABS: Venous Blood Gas Refer to POC result
[2021-05-22] MEDS: Loratadine 10 MG TABLET PO (08:18)
[2021-05-22] MEDS: Furosemide 20 MG TABLET PO (08:18)
[2021-05-22 08:19] LABS: Glucose, Whole Blood 128 mg/dL (60-115)
[2021-05-22] MEDS: Ferrous Sulfate 324 MG TABLET.DR 325 MG PO (08:19)
--- NOTE | 2021-05-22 08:44 | PC.NURSE ---
Pt has noted crackles to left upper and lower lung villalobos. Breathing is labored with position changes in the bed and eating but unlabored at rest. aware. Unsure for dialysis plan at this time. Awaiting further direction from maintenance service technician.
[2021-05-22] MEDS: Apixaban 5 MG TABLET PO ×2 (10:05→20:19)
[2021-05-22 11:48] LABS: Glucose, Whole Blood 228 mg/dL (60-115)
[2021-05-22] MEDS: Insulin Lispro 100 UNIT/ML 3 ML VIAL SUBCUT ×2 (11:49→16:54)
--- NOTE | 2021-05-22 11:55 | P.PNCC_ITS ---
Subjective Subjective Date of Service: 05/22/21 Interval History: 75-year-old female longstanding hypertensive and insulin- dependent type 2 diabetic with stage 5 and end-stage renal disease now hemodialysis dependent which she just started this past week presented with marked azotemia increased respiratory distress in acute congestive heart failure with atrial fibrillation and a moderately elevated heart rate and marked anasarca so clearly under dialyzed with small posterior pericardial effusion but not frankly uremic but she got to the point where she is now an acute respiratory acidosis and therefore given her respiratory extremis needs to be dialyzed even further today but respiratory effort is markedly improved although still using increased diaphragmatic effort with wheezing but less accessory muscle use less tachypnea less hyper but knee a clearly better compensated after 3.5 L was removed acutely last night Critical Care Time (minutes): 45 Physical Exam Vital Signs: Vital Signs: Last Vital Signs Temp 96.4 F L 05/22/21 08:00 Pulse 73 05/22/21 11:00 Resp 22 H 05/22/21 11:00 BP 155/65 H 05/22/21 11:00 Pulse Ox 100 05/22/21 11:00 Oxygen Flow Rate 3 05/21/21 17:02 Body Mass Index 34.1 Awake and alert and nonfocal neurologically Persistent bilateral wheezing and diaphragmatic effort Bedside echo showing mild concentric left ventricular hypertrophy but preserved LV and RV systolic reserve and no primary valve disease Abdomen benign with no organomegaly Persistent anasarca but somewhat diminished Objective Data Labs CBC & Chem 7: 05/22/21 05:19 05/22/21 05:19 Labs: Laboratory Results - last 24 hr 05/21/21 05/21/21 05/21/21 16:56 16:56 16:56 WBC 19.9 H RBC 2.75 L Hgb 8.6 L Hct 25.8 L MCV 93.8 MCH 31.3 MCHC 33.3 RDW 14.2 Plt Count 356 D MPV 9.4 Immature Gran % (Auto) 0.8 H Neut % (Auto) 86.0 H Lymph % (Auto) 4.8 L [place] % (Auto) 6.9 Eos % (Auto) 1.2 Baso % (Auto) 0.3 Lymph # (Auto) 1.0 L [place] # (Auto) 1.4 H Eos # (Auto) 0.2 Baso # (Auto) 0.1 Abs Immat Gran (auto) 0.16 H Absolute Neuts (auto) 17.1 H Absolute Nucleated RBC 0.000 Nucleated RBC % (auto) 0.0 PT 22.8 H INR 2.0 H APTT VBG pH VBG pCO2 VBG pO2 VBG HCO3 VBG O2 Saturation VBG Base Excess Sodium 124 L Potassium 4.2 Chloride 88 L Carbon Dioxide 22 Anion Gap 18 BUN 34 H D Creatinine 4.56 H* Estim Creat Clear Calc 11.8 Estimated GFR 9 POC Glucose Random Glucose 231 H Lactic Acid Calcium 7.4 L Phosphorus Magnesium Total Bilirubin 0.4 Direct Bilirubin 0.2 AST 21 ALT 14 Alkaline Phosphatase 152 H Troponin I High Sens B-Natriuretic Peptide Total Protein 6.0 L Albumin 3.0 L Lipase 16 TSH Urine Color Urine Appearance Urine pH Ur Specific Dwight Urine Protein Urine Glucose (UA) Urine Ketones Urine Blood Urine Nitrite Ur Leukocyte Esterase Urine RBC Urine WBC Ur Squamous Epith Cells Urine Bacteria Granular Casts Urine Yeast Influenza Type A (PCR) Influenza Type B (PCR) RSV RNA Qual (PCR) SARS-CoV-2 RNA (RT-PCR) 05/21/21 05/21/21 05/21/21 16:56 17:00 17:00 WBC RBC Hgb Hct MCV MCH MCHC RDW Plt Count MPV Immature Gran % (Auto) Neut % (Auto) Lymph % (Auto) [place] % (Auto) Eos % (Auto) Baso % (Auto) Lymph # (Auto) [place] # (Auto) Eos # (Auto) Baso # (Auto) Abs Immat Gran (auto) Absolute Neuts (auto) Absolute Nucleated RBC Nucleated RBC % (auto) PT INR APTT VBG pH VBG pCO2 VBG pO2 VBG HCO3 VBG O2 Saturation VBG Base Excess Sodium Potassium Chloride Carbon Dioxide Anion Gap BUN Creatinine Estim Creat Clear Calc Estimated GFR POC Glucose Random Glucose Lactic Acid 1.2 Calcium Phosphorus Magnesium Total Bilirubin Direct Bilirubin AST ALT Alkaline Phosphatase Troponin I High Sens 9.8 B-Natriuretic Peptide 685 H Total Protein Albumin Lipase TSH Urine Color Urine Appearance Urine pH Ur Specific Dwight Urine Protein Urine Glucose (UA) Urine Ketones Urine Blood Urine Nitrite Ur Leukocyte Esterase Urine RBC Urine WBC Ur Squamous Epith Cells Urine Bacteria Granular Casts Urine Yeast Influenza Type A (PCR) NEGATIVE Influenza Type B (PCR) NEGATIVE RSV RNA Qual (PCR) NEGATIVE SARS-CoV-2 RNA (RT-PCR) NEGATIVE 05/21/21 05/21/21 05/21/21 18:30 18:38 18:46 WBC RBC Hgb Hct MCV MCH MCHC RDW Plt Count MPV Immature Gran % (Auto) Neut % (Auto) Lymph % (Auto) [place] % (Auto) Eos % (Auto) Baso % (Auto) Lymph # (Auto) [place] # (Auto) Eos # (Auto) Baso # (Auto) Abs Immat Gran (auto) Absolute Neuts (auto) Absolute Nucleated RBC Nucleated RBC % (auto) PT INR APTT VBG pH 7.30 L VBG pCO2 56 VBG pO2 53 VBG HCO3 27 H VBG O2 Saturation 80.0 VBG Base Excess 0.6 Sodium Potassium Chloride Carbon Dioxide Anion Gap BUN Creatinine Estim Creat Clear Calc Estimated GFR POC Glucose 198 H Random Glucose Lactic Acid Calcium Phosphorus Magnesium Total Bilirubin Direct Bilirubin AST ALT Alkaline Phosphatase Troponin I High Sens B-Natriuretic Peptide Total Protein Albumin Lipase TSH Urine Color YELLOW Urine Appearance CLOUDY Urine pH 6.0 Ur Specific Dwight 1.020 Urine Protein 3+ H Urine Glucose (UA) 250 H Urine Ketones NEG Urine Blood 1+ H Urine Nitrite NEG Ur Leukocyte Esterase NEG Urine RBC 1-4 Urine WBC 15-29 H Ur Squamous Epith Cells NONE Urine Bacteria 1+ Granular Casts 1-4 Urine Yeast 3+ Influenza Type A (PCR) Influenza Type B (PCR) RSV RNA Qual (PCR) SARS-CoV-2 RNA (RT-PCR) 05/21/21 05/21/21 05/22/21 20:46 22:59 05:19 WBC 17.5 H RBC 2.61 L Hgb 7.7 L Hct 24.4 L MCV 93.5 MCH 29.5 MCHC 31.6 RDW 13.9 Plt Count 309 MPV 9.3 L Immature Gran % (Auto) 0.7 H Neut % (Auto) 88.7 H Lymph % (Auto) 4.0 L [place] % (Auto) 5.8 Eos % (Auto) 0.5 Baso % (Auto) 0.3 Lymph # (Auto) 0.7 L [place] # (Auto) 1.0 Eos # (Auto) 0.1 Baso # (Auto) 0.1 Abs Immat Gran (auto) 0.12 H Absolute Neuts (auto) 15.5 H Absolute Nucleated RBC 0.000 Nucleated RBC % (auto) 0.0 PT INR APTT VBG pH VBG pCO2 VBG pO2 VBG HCO3 VBG O2 Saturation VBG Base Excess Sodium Potassium Chloride Carbon Dioxide Anion Gap BUN Creatinine Estim Creat Clear Calc Estimated GFR POC Glucose 171 H 141 H Random Glucose Lactic Acid Calcium Phosphorus Magnesium Total Bilirubin Direct Bilirubin AST ALT Alkaline Phosphatase Troponin I High Sens B-Natriuretic Peptide Total Protein Albumin Lipase TSH Urine Color Urine Appearance Urine pH Ur Specific Dwight Urine Protein Urine Glucose (UA) Urine Ketones Urine Blood Urine Nitrite Ur Leukocyte Esterase Urine RBC Urine WBC Ur Squamous Epith Cells Urine Bacteria Granular Casts Urine Yeast Influenza Type A (PCR) Influenza Type B (PCR) RSV RNA Qual (PCR) SARS-CoV-2 RNA (RT-PCR) 05/22/21 05/22/21 05/22/21 05:19 05:19 05:19 WBC RBC Hgb Hct MCV MCH MCHC RDW Plt Count MPV Immature Gran % (Auto) Neut % (Auto) Lymph % (Auto) [place] % (Auto) Eos % (Auto) Baso % (Auto) Lymph # (Auto) [place] # (Auto) Eos # (Auto) Baso # (Auto) Abs Immat Gran (auto) Absolute Neuts (auto) Absolute Nucleated RBC Nucleated RBC % (auto) PT 22.8 H INR 2.0 H APTT 41.8 H VBG pH VBG pCO2 VBG pO2 VBG HCO3 VBG O2 Saturation VBG Base Excess Sodium 129 L Potassium 3.6 Chloride 97 Carbon Dioxide 21 L Anion Gap 15 BUN 18 H Creatinine 3.04 H Estim Creat Clear Calc 19.2 Estimated GFR 15 POC Glucose Random Glucose 135 H Lactic Acid Calcium 7.4 L Phosphorus 3.5 Magnesium 1.8 Total Bilirubin Direct Bilirubin AST ALT Alkaline Phosphatase Troponin I High Sens B-Natriuretic Peptide 514 H Total Protein Albumin Lipase TSH 1.52 Urine Color Urine Appearance Urine pH Ur Specific [place]ight Urine Protein Urine Glucose (UA) Urine Ketones Urine Blood Urine Nitrite Ur Leukocyte Esterase Urine RBC Urine WBC Ur Squamous Epith Cells Urine Bacteria Granular Casts Urine Yeast Influenza Type A (PCR) Influenza Type B (PCR) RSV RNA Qual (PCR) SARS-CoV-2 RNA (RT-PCR) 05/22/21 05/22/21 05/22/21 05:19 08:09 11:45 WBC RBC Hgb Hct MCV MCH MCHC RDW Plt Count MPV Immature Gran % (Auto) Neut % (Auto) Lymph % (Auto) [place] % (Auto) Eos % (Auto) Baso % (Auto) Lymph # (Auto) [place] # (Auto) Eos # (Auto) Baso # (Auto) Abs Immat Gran (auto) Absolute Neuts (auto) Absolute Nucleated RBC Nucleated RBC % (auto) PT INR APTT VBG pH 7.38 VBG pCO2 40 VBG pO2 65 VBG HCO3 24 VBG O2 Saturation 92.0 VBG Base Excess -0.8 Sodium Potassium Chloride Carbon Dioxide Anion Gap BUN Creatinine Estim Creat Clear Calc Estimated GFR POC Glucose 128 H 228 H Random Glucose Lactic Acid Calcium Phosphorus Magnesium Total Bilirubin Direct Bilirubin AST ALT Alkaline Phosphatase Troponin I High Sens B-Natriuretic Peptide Total Protein Albumin Lipase TSH Urine Color Urine Appearance Urine pH Ur Specific [place] Urine Protein Urine Glucose (UA) Urine Ketones Urine Blood Urine Nitrite Ur Leukocyte Esterase Urine RBC Urine WBC Ur Squamous Epith Cells Urine Bacteria Granular Casts Urine Yeast Influenza Type A (PCR) Influenza Type B (PCR) RSV RNA Qual (PCR) SARS-CoV-2 RNA (RT-PCR) Microbiology Microbiology Results: Microbiology 05/21/21 18:38 Urine clean catch - Urine egan top Urine Culture - Preliminary No growth to date. Progress Note: A&P Assessment and plan (1) Anemia: Status: Acute (2) Uremia: Status: Acute (3) Atrial fibrillation: Status: Acute (4) Renal failure: Status: Acute (5) Acute pericardial effusion: Status: Acute (6) ESRD needing dialysis: Status: Acute (7) GERD (gastroesophageal reflux disease): Status: Acute (8) Hypothyroidism: Status: Acute (9) Benign essential hypertension: Status: Acute (10) Type 2 diabetes mellitus: Status: Acute (11) New onset atrial fibrillation: Status: Acute (12) HLD (hyperlipidemia): Status: Acute (13) CAD (coronary artery disease): Status: Acute (14) Iron deficiency: Status: Acute (15) Pernicious anemia: Status: Acute (16) Osteoarthritis: Status: Acute (17) Obese: Status: Acute Assessment and Plan: Plan is to do an another at least 2 hour ultrafiltration today and re-evaluate in the morning no need for transfusion at this point as an outpatient she can resume her iron and B12 and folate therapy and as her hemoglobin here is stable Quality Stroke Does the patient have a stroke diagnosis?: No VTE Prior VTE?: No VTE Risk Level:: Medical - moderate - high VTE Device Contraindication: N/A - Device Ordered VTE Drug Contraindication: N/A - Med Ordered
--- NOTE | 2021-05-22 14:24 | MHC.CM.PN ---
this interview was conducted c pt's son at bedside who speaks icelandic. pt is from [facility]. dc plan is for her to return there as she is HD 3 x wk. the son tells me M,w,f. a ref. has been made to [facility]. the patient's son would like to be included in any dc plans and notified when when she is going to return to [facility]. dc plan is to return to [facility]. cm to cont. to follow.
[2021-05-22 16:00] LABS: Glucose, Whole Blood 199 mg/dL (60-115)
--- NOTE | 2021-05-22 16:59 | CONS_ITS ---
DATE OF SERVICE: 05/22/2021 REASON FOR CONSULTATION: I was asked to see the patient to assist in evaluation and management of patient's volume overload state in the setting of being an ESRD patient who came in last night markedly short of breath and in atrial fibrillation with a rapid ventricular response. The patient was admitted to the ICU and had an emergent dialysis to remove fluid. She has overall responded well but still seems to have extra fluid on board. Her atrial fibrillation is under control now on IV diltiazem and breathing has improved, but she is still somewhat labored in her breathing. HISTORY OF PRESENT ILLNESS: In summary, she is a 75-year-old patient with advanced chronic kidney disease, who was started on dialysis for the past several months on her previous hospitalization where she presented again with decompensated congestive heart failure. She actually had a kidney biopsy done, which showed advanced diabetic kidney disease changes. She has a history of diabetes, hypertension, anemia, obesity, and recurrent bouts of decompensated congestive heart failure. There is also mention made of a history of GERD, hypothyroidism, paroxysmal atrial fibrillation. She had a toe amputated. SOCIAL HISTORY: She is a nonsmoker, nondrinker. No illicit drug use. REVIEW OF SYSTEMS: As noted above. PHYSICAL EXAMINATION: VITAL SIGNS: Blood pressure 136/40 with a heart rate in the 70s. As mentioned, she is somewhat labored in her breathing on 4 L of oxygen. NECK: She has short round neck, unable to assess for JVD. LUNGS: Breath sounds bilaterally decreased with some rales noted. CARDIAC: Regular rate and rhythm. ABDOMEN: Obese, soft, and nontender. EXTREMITIES: Shows 1+ edema. LABORATORY DATA: Showed hemoglobin 7.7, hematocrit 24.4, white blood cell count 17.5. Sodium 129, potassium 3.3, chloride 97, bicarb 21, BUN 18, creatinine 3.04, calcium 7.4, albumin 3.0. IMPRESSION: A 75-year-old diabetic, hypertensive patient with end-stage renal disease, admitted to the hospital with decompensated heart failure in the setting of atrial fibrillation with rapid ventricular response. 1. End-stage renal disease. She had dialysis last night. We will do 2 hours of ultrafiltration today to remove more fluid to see if we can get her breathing improved. 2. Anemia. We will start her on Procrit and see about giving her IV iron. 3. Diabetes. 4. Atrial fibrillation with rapid ventricular response, responding to medical therapy. SUGGESTIONS: At this time include 2 hours of ultrafiltration. Continue routine medications. Protect her nondominant arm for future AV fistula. We will follow the patient with the team. MD CONRADO Nuñez/RACHELL / [id number]
[2021-05-22 19:45] LABS: Glucose, Whole Blood 241 mg/dL (60-115)
[2021-05-22] MEDS: Atorvastatin Calcium 40 MG TABLET PO (20:19)
[2021-05-22] MEDS: Montelukast Sodium 10 MG TABLET PO (20:20)
[2021-05-22] MEDS: Gabapentin 100 MG CAPSULE PO (20:20)
[2021-05-23] VITALS (7 sets, daily range): BP systolic 90–170; BP diastolic 51–74; PULSE 88–120; RESP 17–22; TEMP 36.1–37; O2SAT 98–100; BMI 32.4
[2021-05-23] MEDS: Levothyroxine Sodium 25 MCG TABLET PO (06:28)
[2021-05-23 07:18] LABS: Glucose, Whole Blood 186 mg/dL (60-115)
[2021-05-23] MEDS: dilTIAZem HCL CD 120 MG CAP.ER.DEG PO (08:38)
[2021-05-23] MEDS: Apixaban 5 MG TABLET PO ×2 (08:38→21:10)
[2021-05-23] MEDS: Loratadine 10 MG TABLET PO (08:38)
[2021-05-23] MEDS: Metoprolol Tartrate 25 MG TABLET PO ×2 (08:39→21:10)
[2021-05-23] MEDS: Ferrous Sulfate 324 MG TABLET.DR 325 MG PO (08:40)
[2021-05-23 09:42] LABS: Eosinophils Absolute Auto 0.3 X10*3/uL (0.0-0.4); Eosinophils Percent Auto 2.3 % (0-4); Hemoglobin 8.5 g/dl (12.0-16.0); MANUAL DIFF FLAG SCAN; Monocytes Absolute Auto 0.9 X10*3/uL (0.1-1.2); Monocytes Percent Auto 6.2 % (2-11); PLT CLUMP 1; SCAN SMEAR FLAG 1
[2021-05-23 09:44] LABS: Basophils Absolute Auto 0.1 X10*3/uL (0.0-0.2); Basophils Percent Auto 0.4 % (0-2); Hematocrit 26.2 % (37.0-47.0); Imm Gran Pct Auto 0.7 % (0.0-0.4); Lymphocytes Absolute Auto 0.7 X10*3/uL (1.2-4.9); Lymphocytes Percent Auto 4.5 % (20-40); Mean Corpuscular HGB Conc 32.4 g/dl (31.0-35.0); Mean Corpuscular Hemoglobin 30.6 pg (27.0-33.0); Mean Corpuscular Volume 94.2 fL (80.0-98.0); Neutrophils Absolute Auto 12.5 x10*3/uL (2.0-8.3); Neutrophils Percent Auto 85.9 % (45-73); Platelet Count 233 X10*3/uL (160-400); Red Blood Count 2.78 X10*6/uL (4.20-5.50); Red Cell Distribution Width 14.3 % (11.0-16.0); White Blood Count 14.6 X10*3/uL (4.8-10.8)
[2021-05-23 10:16] LABS: INTERNATIONAL NORM RATIO 1.9 (0.9-1.1)
[2021-05-23 10:22] LABS: Anion Gap 17 (12-20); Blood Urea Nitrogen 32 mg/dL (9-16); Calcium 7.3 mg/dL (8.4-10.2); Carbon Dioxide 17 mmol/L (22-29); Chloride 95 mmol/L (96-108); Glucose Random 250 mg/dL (60-115); Magnesium 1.7 mg/dL (1.6-2.6); Phosphorus 3.9 mg/dL (2.7-4.5); Potassium 4.2 mmol/L (3.3-5.1); Sodium 125 mmol/L (135-145)
[2021-05-23 10:30] LABS: Creatinine Clr Calc Pharmacy 12.2; Estimated Glomerular Filt Rate 9
[2021-05-23 10:33] LABS: B Type Natriuretic Peptide 350 pg/mL (<100)
[2021-05-23 11:19] LABS: SLIDE REVIEW VERIFIED
[2021-05-23 11:23] LABS: Glucose, Whole Blood 305 mg/dL (60-115)
--- NOTE | 2021-05-23 11:43 | PM.PNNEP ---
Subjective Subjective Date of Service: 05/23/21 Principal diagnosis: ESRD, HF Interval history: Seen and examiend, events noted. OVerall feeling better Physical Exam Vital Signs: Vital Signs: Last Vital Signs Temp 98 F 05/23/21 11:12 Pulse 92 05/23/21 11:12 Resp 19 05/23/21 11:12 BP 142/74 H 05/23/21 11:12 Pulse Ox 100 05/23/21 11:12 Oxygen Flow Rate 3 05/21/21 17:02 BMI result Body Mass Index 32.4 Objective Data Labs CBC & Chem 7: 05/23/21 09:30 05/23/21 09:30 Labs: Laboratory Results - last 24 hr 05/22/21 05/22/21 05/22/21 11:45 15:57 19:41 WBC RBC Hgb Hct MCV MCH MCHC RDW Plt Count MPV Immature Gran % (Auto) Neut % (Auto) Lymph % (Auto) [place] % (Auto) Eos % (Auto) Baso % (Auto) Lymph # (Auto) [place] # (Auto) Eos # (Auto) Baso # (Auto) Abs Immat Gran (auto) Absolute Neuts (auto) Absolute Nucleated RBC Nucleated RBC % (auto) Smear Tech's Comments PT INR APTT Sodium Potassium Chloride Carbon Dioxide Anion Gap BUN Creatinine Estim Creat Clear Calc Estimated GFR POC Glucose 228 H 199 H 241 H Random Glucose Calcium Phosphorus Magnesium B-Natriuretic Peptide 05/23/21 05/23/21 05/23/21 07:08 09:30 09:30 WBC 14.6 H RBC 2.78 L Hgb 8.5 L Hct 26.2 L MCV 94.2 MCH 30.6 MCHC 32.4 RDW 14.3 Plt Count 233 MPV 10.0 Immature Gran % (Auto) 0.7 H Neut % (Auto) 85.9 H Lymph % (Auto) 4.5 L [place] % (Auto) 6.2 Eos % (Auto) 2.3 Baso % (Auto) 0.4 Lymph # (Auto) 0.7 L [place] # (Auto) 0.9 Eos # (Auto) 0.3 Baso # (Auto) 0.1 Abs Immat Gran (auto) 0.10 H Absolute Neuts (auto) 12.5 H Absolute Nucleated RBC 0.000 Nucleated RBC % (auto) 0.0 Smear Tech's Comments VERIFIED PT INR APTT Sodium 125 L Potassium 4.2 Chloride 95 L Carbon Dioxide 17 L Anion Gap 17 BUN 32 H Creatinine 4.65 H* Estim Creat Clear Calc 12.2 Estimated GFR 9 POC Glucose 186 H Random Glucose 250 H Calcium 7.3 L Phosphorus 3.9 Magnesium 1.7 B-Natriuretic Peptide 05/23/21 05/23/21 05/23/21 09:58 09:58 11:11 WBC RBC Hgb Hct MCV MCH MCHC RDW Plt Count MPV Immature Gran % (Auto) Neut % (Auto) Lymph % (Auto) [place] % (Auto) Eos % (Auto) Baso % (Auto) Lymph # (Auto) [place] # (Auto) Eos # (Auto) Baso # (Auto) Abs Immat Gran (auto) Absolute Neuts (auto) Absolute Nucleated RBC Nucleated RBC % (auto) Smear Tech's Comments PT 22.0 H INR 1.9 H APTT 43.0 H Sodium Potassium Chloride Carbon Dioxide Anion Gap BUN Creatinine Estim Creat Clear Calc Estimated GFR POC Glucose 305 H Random Glucose Calcium Phosphorus Magnesium B-Natriuretic Peptide 350 H Microbiology Microbiology Results: Microbiology 05/21/21 17:31 Blood - Venous Blood Culture - Preliminary No growth after 24 hours. 05/21/21 17:31 Blood - Venous Blood Culture - Preliminary No growth after 24 hours. 05/21/21 18:38 Urine clean catch - Urine egan top Urine Culture - Preliminary No growth to date. Procedures Date of Service Date of Service: 05/23/21 Assessment & Plan Assessment and plan (1) Anemia: Status: Acute (2) Uremia: Status: Acute (3) Atrial fibrillation: Status: Acute (4) Renal failure: Status: Acute (5) Acute pericardial effusion: Status: Acute (6) ESRD needing dialysis: Status: Acute (7) GERD (gastroesophageal reflux disease): Status: Acute (8) Hypothyroidism: Status: Acute (9) Benign essential hypertension: Status: Acute (10) Type 2 diabetes mellitus: Status: Acute (11) New onset atrial fibrillation: Status: Acute (12) HLD (hyperlipidemia): Status: Acute (13) CAD (coronary artery disease): Status: Acute (14) Iron deficiency: Status: Acute (15) Pernicious anemia: Status: Acute (16) Osteoarthritis: Status: Acute (17) Obese: Status: Acute Assessment and Plan: 75-year-old diabetic, hypertensive patient with end-stage renal disease, admitted to the hospital with decompensated heart failure in the setting of atrial fibrillation with rapid ventricular response. 1. ESRD: cont HD mwf as her usu schedule 2. SOB: mulitfact with imporvement after UF 3. Afib RVR: controlled 4. Anemia: cont epo/Fe 5. HypoNa: avoid excess PO fluid intake REC: HD today; epo as ordered; avoid excess PO fluids intake; d/c planning Time Spent With Patient Time: Total time spent is greater than 50% in coordination of care (as documented) at patient's floor/unit and/or counseling patient: Progress Note: Quality Stroke Does the patient have a stroke diagnosis?: No
--- NOTE | 2021-05-23 11:51 | MHC.CM.PN ---
Per ROUNDS discussion,Patient is not yet medically cleared for dc (Rapid Afib, HD today, and continued Hematuria).Returning to [facility] is the goal for dc and CM will follow for possible need to adjust the dc plan.
[2021-05-23] MEDS: Insulin Lispro 100 UNIT/ML 3 ML VIAL SUBCUT ×2 (12:50→21:10)
--- NOTE | 2021-05-23 13:24 | HO.PM.IMPN ---
Subjective Subjective Date of Service: 05/23/21 Interval History: seen and examined this morning follow up for fluid overload intermittent shortness of breath, no palpitations or chest pain Review of Systems Review of Systems: Yes all other systems are reviewed and are negative Constitutional Constitutional: Denies chills and Denies fever(s) Cardiovascular Cardiovascular: Denies chest pain Respiratory Respiratory: Denies cough Gastrointestinal Gastrointestinal: Denies abdominal pain Physical Exam Vital Signs: Vital Signs: Last Vital Signs Temp 98 F 05/23/21 11:12 Pulse 92 05/23/21 11:12 Resp 19 05/23/21 11:12 BP 142/74 H 05/23/21 11:12 Pulse Ox 100 05/23/21 11:12 Oxygen Flow Rate 3 05/21/21 17:02 BMI result Body Mass Index 32.4 Const: General: comfortable, no acute distress, alert and awake Nutritional Appearance: well nourished Resp: Effort & Inspection: normal respiratory effort and no respiratory distress Auscultation: diminished lung sounds Cardio: Rate: tachycardic : Other: dao pink tinged urine Extrem: Other: no leg edema Objective Data Active Medications Apixaban (Apixaban 5 Mg Tablet) 5 mg PO BID [facility] Last Admin: 05/23/21 08:38 Dose: 5 mg Documented by: RENAN Atorvastatin Calcium (Atorvastatin Calcium 40 Mg Tablet) 40 mg PO BEDTIME [facility] Last Admin: 05/22/21 20:19 Dose: 40 mg Documented by: KENNY Dextrose (Dextrose 50 % 25 Gm/50 Ml Vial) 25 gm IVPUSH Q15M PRN; Protocol PRN Reason: per Hypoglycemia Standing Ord. Diltiazem HCl (Diltiazem Hcl Cd 120 Mg Cap.Er.Deg) 120 mg PO DAILY [facility]; Protocol Last Admin: 05/23/21 08:38 Dose: 120 mg Documented by: RENAN Ferrous Sulfate (Ferrous Sulfate 324 Mg Tablet.Dr) 325 mg PO DAILY [facility] Last Admin: 05/23/21 08:40 Dose: 324 mg Documented by: RENAN Gabapentin (Gabapentin 100 Mg Capsule) 100 mg PO BEDTIME [facility] Last Admin: 05/22/21 20:20 Dose: 100 mg Documented by: KENNY Glucose (Glucose Gel 15 Gm Gel..Gram.) 15 gm PO Q15M PRN; Protocol PRN Reason: per Hypoglycemia Standing Ord. Insulin Human Lispro (Insulin Lispro 100 Unit/Ml 3 Ml Vial) 0 unit SUBCUT QIDACHS [facility]; Protocol Last Admin: 05/23/21 12:50 Dose: 8 unit Documented by: RENAN Comments: per Levothyroxine Sodium (Levothyroxine Sodium 25 Mcg Tablet) 25 mcg PO DAILY@0600 [facility] Last Admin: 05/23/21 06:28 Dose: 25 mcg Documented by: KENNY Loratadine (Loratadine 10 Mg Tablet) 10 mg PO DAILY [facility] Last Admin: 05/23/21 08:38 Dose: 10 mg Documented by: RENAN Metoprolol Tartrate (Metoprolol Tartrate 25 Mg Tablet) 25 mg PO BID [facility]; Protocol Last Admin: 05/23/21 08:39 Dose: 25 mg Documented by: RENAN Montelukast Sodium (Montelukast Sodium 10 Mg Tablet) 10 mg PO BEDTIME [facility] Last Admin: 05/22/21 20:20 Dose: 10 mg Documented by: KENNY Labs CBC & Chem 7: 05/23/21 09:30 05/23/21 09:30 Labs: Laboratory Results - last 24 hr 05/22/21 05/22/21 05/23/21 15:57 19:41 07:08 MCV MCH MCHC RDW Plt Count MPV Immature Gran % (Auto) Neut % (Auto) Lymph % (Auto) [place] % (Auto) Eos % (Auto) Baso % (Auto) Lymph # (Auto) [place] # (Auto) Eos # (Auto) Baso # (Auto) Abs Immat Gran (auto) Absolute Neuts (auto) Absolute Nucleated RBC Nucleated RBC % (auto) Smear Tech's Comments PT INR APTT Anion Gap Estim Creat Clear Calc Estimated GFR POC Glucose 199 H 241 H 186 H Random Glucose Calcium Phosphorus Magnesium B-Natriuretic Peptide 05/23/21 05/23/21 05/23/21 09:30 09:30 09:58 MCV 94.2 MCH 30.6 MCHC 32.4 RDW 14.3 Plt Count 233 MPV 10.0 Immature Gran % (Auto) 0.7 H Neut % (Auto) 85.9 H Lymph % (Auto) 4.5 L [place] % (Auto) 6.2 Eos % (Auto) 2.3 Baso % (Auto) 0.4 Lymph # (Auto) 0.7 L [place] # (Auto) 0.9 Eos # (Auto) 0.3 Baso # (Auto) 0.1 Abs Immat Gran (auto) 0.10 H Absolute Neuts (auto) 12.5 H Absolute Nucleated RBC 0.000 Nucleated RBC % (auto) 0.0 Smear Tech's Comments VERIFIED PT 22.0 H INR 1.9 H APTT 43.0 H Anion Gap 17 Estim Creat Clear Calc 12.2 Estimated GFR 9 POC Glucose Random Glucose 250 H Calcium 7.3 L Phosphorus 3.9 Magnesium 1.7 B-Natriuretic Peptide 05/23/21 05/23/21 09:58 11:11 MCV MCH MCHC RDW Plt Count MPV Immature Gran % (Auto) Neut % (Auto) Lymph % (Auto) [place] % (Auto) Eos % (Auto) Baso % (Auto) Lymph # (Auto) [place] # (Auto) Eos # (Auto) Baso # (Auto) Abs Immat Gran (auto) Absolute Neuts (auto) Absolute Nucleated RBC Nucleated RBC % (auto) Smear Tech's Comments PT INR APTT Anion Gap Estim Creat Clear Calc Estimated GFR POC Glucose 305 H Random Glucose Calcium Phosphorus Magnesium B-Natriuretic Peptide 350 H Microbiology Microbiology Results: Microbiology 05/21/21 18:38 Urine Culture - Preliminary Urine clean catch - Urine egan top Yeast 05/21/21 17:31 Blood Culture - Preliminary Blood - Venous No growth after 24 hours. 05/21/21 17:31 Blood Culture - Preliminary Blood - Venous No growth after 24 hours. Assessment and Plan (1) Atrial fibrillation: Status: Acute (2) ESRD needing dialysis: Status: Acute Assessment and Plan: This is a 75-year-old Lao-speaking female with history ESRD recently started hemodialysis, DM, AFib who presented to the emergency department with respiratory distress who was admitted to the ICU on 05/21 for emergent dialysis, downgraded to the medical floor 05/22 ESRD s/p HD 05/21, 05/22 will also have HD today to resume regular dialysis schedule of MWF nephrology following Hyponatremia probably r/t fluid overload will follow BMP closely nephrology following atrial fibrillation HR elevated this morning, improving resume home diltiazem, metoprolol continue ac with eliquis hematuria follow cbc hypothyroidism continue synthroid DM SSI, POCs HLD continue statin dvt ppx -eliqusavannah attending - dr mcbride Quality Stroke Does the patient have a stroke diagnosis?: No VTE Prior VTE?: No VTE Risk Level:: Medical - moderate - high VTE Device Contraindication: N/A - Device Ordered VTE Drug Contraindication: N/A - Med Ordered
[2021-05-23 18:43] LABS: Glucose, Whole Blood 99 mg/dL (60-115)
[2021-05-23 20:13] LABS: Glucose, Whole Blood 180 mg/dL (60-115)
[2021-05-23] MEDS: Gabapentin 100 MG CAPSULE PO (21:10)
[2021-05-23] MEDS: Atorvastatin Calcium 40 MG TABLET PO (21:10)
[2021-05-23] MEDS: Montelukast Sodium 10 MG TABLET PO (21:10)
[2021-05-24] VITALS (11 sets, daily range): BP systolic 100–142; BP diastolic 55–72; PULSE 62–90; RESP 18–24; TEMP 36.1–36.9; O2SAT 90–99; BMI 32.1
[2021-05-24] MEDS: Levothyroxine Sodium 25 MCG TABLET PO (05:36)
[2021-05-24 06:36] LABS: MANUAL DIFF FLAG NO
[2021-05-24 06:58] LABS: Basophils Absolute Auto 0.1 X10*3/uL (0.0-0.2); Basophils Percent Auto 0.5 % (0-2); Eosinophils Absolute Auto 0.4 X10*3/uL (0.0-0.4); Hemoglobin 8.4 g/dl (12.0-16.0); Imm Gran Abs Auto 0.16 X10*3/uL (0.00-0.03); Imm Gran Pct Auto 1.2 % (0.0-0.4); Lymphocytes Absolute Auto 1.1 X10*3/uL (1.2-4.9); Lymphocytes Percent Auto 8.2 % (20-40); Mean Corpuscular HGB Conc 32.3 g/dl (31.0-35.0); Mean Corpuscular Hemoglobin 30.2 pg (27.0-33.0); Mean Corpuscular Volume 93.5 fL (80.0-98.0); Mean Platelet Volume 9.5 fL (9.4-12.3); Monocytes Percent Auto 7.6 % (2-11); Neutrophils Absolute Auto 10.5 x10*3/uL (2.0-8.3); Neutrophils Percent Auto 79.5 % (45-73); Platelet Count 353 X10*3/uL (160-400); Red Blood Count 2.78 X10*6/uL (4.20-5.50); Red Cell Distribution Width 13.9 % (11.0-16.0); White Blood Count 13.3 X10*3/uL (4.8-10.8)
[2021-05-24 07:02] LABS: B Type Natriuretic Peptide 763 pg/mL (<100)
[2021-05-24 07:04] LABS: Partial Thromboplastin Time 43.6 SEC (24.1-38.0)
[2021-05-24 07:11] LABS: Anion Gap 16 (12-20); Blood Urea Nitrogen 18 mg/dL (9-16); Calcium 7.9 mg/dL (8.4-10.2); Carbon Dioxide 19 mmol/L (22-29); Chloride 99 mmol/L (96-108); Creatinine Clr Calc Pharmacy 19.3; Estimated Glomerular Filt Rate 16; Glucose Random 136 mg/dL (60-115); Magnesium 1.7 mg/dL (1.6-2.6); Phosphorus 3.4 mg/dL (2.7-4.5); Potassium 3.6 mmol/L (3.3-5.1); Sodium 130 mmol/L (135-145)
[2021-05-24 07:29] LABS: Glucose, Whole Blood 123 mg/dL (60-115)
[2021-05-24] MEDS: Ferrous Sulfate 324 MG TABLET.DR 325 MG PO (08:04)
[2021-05-24] MEDS: Loratadine 10 MG TABLET PO (08:04)
[2021-05-24] MEDS: Apixaban 5 MG TABLET PO ×2 (08:04→21:08)
[2021-05-24] MEDS: Metoprolol Tartrate 25 MG TABLET PO ×2 (08:04→21:08)
[2021-05-24] MEDS: dilTIAZem HCL CD 120 MG CAP.ER.DEG PO (08:04)
[2021-05-24 11:26] LABS: Glucose, Whole Blood 202 mg/dL (60-115)
[2021-05-24] MEDS: Insulin Lispro 100 UNIT/ML 3 ML VIAL SUBCUT ×3 (11:48→21:08)
--- NOTE | 2021-05-24 14:15 | P.PNIM_ITS ---
Subjective Subjective Date of Service: 05/24/21 Interval History: seen and examined this morning follow up for fluid overload reporting intermittent sob no cough Review of Systems Review of Systems: Yes all other systems are reviewed and are negative Constitutional Constitutional: Denies chills and Denies fever(s) Cardiovascular Cardiovascular: Denies chest pain Respiratory Respiratory: Denies cough Gastrointestinal Gastrointestinal: Denies abdominal pain Physical Exam Vital Signs: Vital Signs: Last Vital Signs Temp 97.6 F 05/24/21 11:21 Pulse 69 05/24/21 11:21 Resp 18 05/24/21 11:21 BP 100/59 L 05/24/21 11:21 Pulse Ox 90 L 05/24/21 13:07 Oxygen Flow Rate 3 05/21/21 17:02 BMI result Body Mass Index 32.1 Const: General: comfortable, no acute distress, alert and awake Nutritional Appearance: well nourished Resp: Effort & Inspection: normal respiratory effort and no respiratory distr ess Auscultation: diminished lung sounds Cardio: Rate: tachycardic : Other: dao pink tinged urine Extrem: Other: no leg edema Objective Data Active Medications Apixaban (Apixaban 5 Mg Tablet) 5 mg PO BID [facility] Last Admin: 05/24/21 08:04 Dose: 5 mg Documented by: LAY Atorvastatin Calcium (Atorvastatin Calcium 40 Mg Tablet) 40 mg PO BEDTIME [facility] Last Admin: 05/23/21 21:10 Dose: 40 mg Documented by: KENNY Dextrose (Dextrose 50 % 25 Gm/50 Ml Vial) 25 gm IVPUSH Q15M PRN; Protocol PRN Reason: per Hypoglycemia Standing Ord. Diltiazem HCl (Diltiazem Hcl Cd 120 Mg Cap.Er.Deg) 120 mg PO DAILY [facility]; Protocol Last Admin: 05/24/21 08:04 Dose: 120 mg Documented by: LAY Ferrous Sulfate (Ferrous Sulfate 324 Mg Tablet.Dr) 325 mg PO DAILY [facility] Last Admin: 05/24/21 08:04 Dose: 325 mg Documented by: LAY Gabapentin (Gabapentin 100 Mg Capsule) 100 mg PO BEDTIME [facility] Last Admin: 05/23/21 21:10 Dose: 100 mg Documented by: KENNY Glucose (Glucose Gel 15 Gm Gel..Gram.) 15 gm PO Q15M PRN; Protocol PRN Reason: per Hypoglycemia Standing Ord. Insulin Human Lispro (Insulin Lispro 100 Unit/Ml 3 Ml Vial) 0 unit SUBCUT QIDACHS [facility]; Protocol Last Admin: 05/24/21 11:48 Dose: 4 unit Documented by: LAY Levothyroxine Sodium (Levothyroxine Sodium 25 Mcg Tablet) 25 mcg PO DAILY@0600 [facility] Last Admin: 05/24/21 05:36 Dose: 25 mcg Documented by: KENNY Loratadine (Loratadine 10 Mg Tablet) 10 mg PO DAILY [facility] Last Admin: 05/24/21 08:04 Dose: 10 mg Documented by: LAY Metoprolol Tartrate (Metoprolol Tartrate 25 Mg Tablet) 25 mg PO BID [facility]; Protocol Last Admin: 05/24/21 08:04 Dose: 25 mg Documented by: LAY Montelukast Sodium (Montelukast Sodium 10 Mg Tablet) 10 mg PO BEDTIME [facility] Last Admin: 05/23/21 21:10 Dose: 10 mg Documented by: KENNY Labs CBC & Chem 7: 05/24/21 06:19 05/24/21 06:19 Labs: Laboratory Results - last 24 hr 05/23/21 05/23/21 05/24/21 18:39 20:09 06:19 MCV 93.5 MCH 30.2 MCHC 32.3 RDW 13.9 Plt Count 353 D MPV 9.5 Immature Gran % (Auto) 1.2 H Neut % (Auto) 79.5 H Lymph % (Auto) 8.2 L [place] % (Auto) 7.6 Eos % (Auto) 3.0 Baso % (Auto) 0.5 Lymph # (Auto) 1.1 L [place] # (Auto) 1.0 Eos # (Auto) 0.4 Baso # (Auto) 0.1 Abs Immat Gran (auto) 0.16 H Absolute Neuts (auto) 10.5 H Absolute Nucleated RBC 0.000 Nucleated RBC % (auto) 0.0 APTT Anion Gap Estim Creat Clear Calc Estimated GFR POC Glucose 99 180 H Random Glucose Calcium Phosphorus Magnesium B-Natriuretic Peptide 05/24/21 05/24/21 05/24/21 06:19 06:19 06:19 MCV MCH MCHC RDW Plt Count MPV Immature Gran % (Auto) Neut % (Auto) Lymph % (Auto) [place] % (Auto) Eos % (Auto) Baso % (Auto) Lymph # (Auto) [place] # (Auto) Eos # (Auto) Baso # (Auto) Abs Immat Gran (auto) Absolute Neuts (auto) Absolute Nucleated RBC Nucleated RBC % (auto) APTT 43.6 H Anion Gap 16 Estim Creat Clear Calc 19.3 Estimated GFR 16 POC Glucose Random Glucose 136 H Calcium 7.9 L D Phosphorus 3.4 Magnesium 1.7 B-Natriuretic Peptide 763 H 05/24/21 05/24/21 07:22 11:23 MCV MCH MCHC RDW Plt Count MPV Immature Gran % (Auto) Neut % (Auto) Lymph % (Auto) [place] % (Auto) Eos % (Auto) Baso % (Auto) Lymph # (Auto) [place] # (Auto) Eos # (Auto) Baso # (Auto) Abs Immat Gran (auto) Absolute Neuts (auto) Absolute Nucleated RBC Nucleated RBC % (auto) APTT Anion Gap Estim Creat Clear Calc Estimated GFR POC Glucose 123 H 202 H Random Glucose Calcium Phosphorus Magnesium B-Natriuretic Peptide Microbiology Microbiology Results: Microbiology 05/21/21 18:38 Urine Culture - Preliminary Urine clean catch - Urine egan top Yeast 05/21/21 17:31 Blood Culture - Preliminary Blood - Venous No growth after 48 hours. 05/21/21 17:31 Blood Culture - Preliminary Blood - Venous No growth after 48 hours. Assessment and Plan (1) Atrial fibrillation: Status: Acute (2) ESRD needing dialysis: Status: Acute (3) Hematuria: Status: Acute Assessment and Plan: This is a 75-year-old Sami-speaking female with history ESRD recently started hemodialysis, DM, AFib who presented to the emergency department with respiratory distress who was admitted to the ICU on 05/21 for emergent dialysis, downgraded to the medical floor 05/22 ESRD s/p HD 05/21, 05/22, 05/23 will resume regular schedule of T, TH, Sa nephrology following Hyponatremia, improved to 130 will follow BMP closely nephrology following atrial fibrillation HR controlled continue home diltiazem, metoprolol continue ac with eliquis h/o basilic vein thrombus (diagnosed 05/13) continue eliquis hematuria H/H stable follow cbc hypothyroidism continue synthroid DM SSI, POCs HLD continue statin dvt ppx -eliquis attending - dr mcbride Quality Stroke Does the patient have a stroke diagnosis?: No VTE Prior VTE?: No VTE Risk Level:: Medical - moderate - high VTE Device Contraindication: N/A - Device Ordered VTE Drug Contraindication: N/A - Med Ordered
--- NOTE | 2021-05-24 15:15 | PM.PNNEP ---
Subjective Subjective Date of Service: 05/24/21 Principal diagnosis: ESRD, HF Interval history: Seen and examiend, events noted Physical Exam Vital Signs: Vital Signs: Last Vital Signs Temp 97.6 F 05/24/21 11:21 Pulse 69 05/24/21 11:21 Resp 18 05/24/21 11:21 BP 100/59 L 05/24/21 11:21 Pulse Ox 90 L 05/24/21 13:07 Oxygen Flow Rate 3 05/21/21 17:02 BMI result Body Mass Index 32.1 Const: General: comfortable, no acute distress, alert and awake Nutritional Appearance: well nourished Resp: Effort & Inspection: normal respiratory effort and no respiratory distress Auscultation: diminished lung sounds Cardio: Rate: tachycardic : Other: dao pink tinged urine Extrem: Other: no leg edema Objective Data Labs CBC & Chem 7: 05/24/21 06:19 05/24/21 06:19 Labs: Laboratory Results - last 24 hr 05/23/21 05/23/21 05/24/21 18:39 20:09 06:19 WBC 13.3 H RBC 2.78 L Hgb 8.4 L Hct 26.0 L MCV 93.5 MCH 30.2 MCHC 32.3 RDW 13.9 Plt Count 353 D MPV 9.5 Immature Gran % (Auto) 1.2 H Neut % (Auto) 79.5 H Lymph % (Auto) 8.2 L [place] % (Auto) 7.6 Eos % (Auto) 3.0 Baso % (Auto) 0.5 Lymph # (Auto) 1.1 L [place] # (Auto) 1.0 Eos # (Auto) 0.4 Baso # (Auto) 0.1 Abs Immat Gran (auto) 0.16 H Absolute Neuts (auto) 10.5 H Absolute Nucleated RBC 0.000 Nucleated RBC % (auto) 0.0 APTT Sodium Potassium Chloride Carbon Dioxide Anion Gap BUN Creatinine Estim Creat Clear Calc Estimated GFR POC Glucose 99 180 H Random Glucose Calcium Phosphorus Magnesium B-Natriuretic Peptide 05/24/21 05/24/21 05/24/21 06:19 06:19 06:19 WBC RBC Hgb Hct MCV MCH MCHC RDW Plt Count MPV Immature Gran % (Auto) Neut % (Auto) Lymph % (Auto) [place] % (Auto) Eos % (Auto) Baso % (Auto) Lymph # (Auto) [place] # (Auto) Eos # (Auto) Baso # (Auto) Abs Immat Gran (auto) Absolute Neuts (auto) Absolute Nucleated RBC Nucleated RBC % (auto) APTT 43.6 H Sodium 130 L Potassium 3.6 Chloride 99 Carbon Dioxide 19 L Anion Gap 16 BUN 18 H Creatinine 2.94 H Estim Creat Clear Calc 19.3 Estimated GFR 16 POC Glucose Random Glucose 136 H Calcium 7.9 L D Phosphorus 3.4 Magnesium 1.7 B-Natriuretic Peptide 763 H 05/24/21 05/24/21 07:22 11:23 WBC RBC Hgb Hct MCV MCH MCHC RDW Plt Count MPV Immature Gran % (Auto) Neut % (Auto) Lymph % (Auto) [place] % (Auto) Eos % (Auto) Baso % (Auto) Lymph # (Auto) [place] # (Auto) Eos # (Auto) Baso # (Auto) Abs Immat Gran (auto) Absolute Neuts (auto) Absolute Nucleated RBC Nucleated RBC % (auto) APTT Sodium Potassium Chloride Carbon Dioxide Anion Gap BUN Creatinine Estim Creat Clear Calc Estimated GFR POC Glucose 123 H 202 H Random Glucose Calcium Phosphorus Magnesium B-Natriuretic Peptide Microbiology Microbiology Results: Microbiology 05/21/21 18:38 Urine clean catch - Urine egan top Urine Culture - Preliminary Yeast 05/21/21 17:31 Blood - Venous Blood Culture - Preliminary No growth after 48 hours. 05/21/21 17:31 Blood - Venous Blood Culture - Preliminary No growth after 48 hours. Procedures Date of Service Date of Service: 05/24/21 Assessment & Plan Assessment and plan (1) Atrial fibrillation: Status: Acute (2) ESRD needing dialysis: Status: Acute (3) Hematuria: Status: Acute Assessment and Plan: This is a 75-year-old Georgian-speaking female with history ESRD recently started hemodialysis, DM, AFib who presented to the emergency department with respiratory distress who was admitted to the ICU on 05/21 for emergent dialysis, downgraded to the medical floor 05/22 1. ESRD: normally mwf; s/p HD 3days in arow andbreathing improved 2. HypoNa: d/texcess PO fluid intake 3. Afib w H/O RVR that is nowcontrolled 4. Hematuria:quesfoley trauma REC:HD tomorrowto keep her on MWF schedule; d/c planning Time Spent With Patient Time: Total time spent is greater than 50% in coordination of care (as documented) at patient's floor/unit and/or counseling patient: Progress Note: Quality Stroke Does the patient have a stroke diagnosis?: No
[2021-05-24 16:26] LABS: Glucose, Whole Blood 303 mg/dL (60-115)
[2021-05-24 19:39] LABS: Glucose, Whole Blood 204 mg/dL (60-115)
[2021-05-24] MEDS: Atorvastatin Calcium 40 MG TABLET PO (21:08)
[2021-05-24] MEDS: Gabapentin 100 MG CAPSULE PO (21:08)
[2021-05-24] MEDS: Montelukast Sodium 10 MG TABLET PO (21:08)
[2021-05-25] VITALS (8 sets, daily range): BP systolic 131–154; BP diastolic 62–90; PULSE 79–115; RESP 18–24; TEMP 36.3–36.9; O2SAT 91–99; BMI 33.6; BMI 31.4
[2021-05-25] MEDS: Levothyroxine Sodium 25 MCG TABLET PO (04:33)
[2021-05-25] MEDS: hydrOXYzine HCL 25 MG TABLET PO (04:33)
[2021-05-25 06:23] LABS: MANUAL DIFF FLAG NO
[2021-05-25 06:30] LABS: Basophils Absolute Auto 0.1 X10*3/uL (0.0-0.2); Basophils Percent Auto 0.6 % (0-2); Eosinophils Absolute Auto 0.7 X10*3/uL (0.0-0.4); Eosinophils Percent Auto 4.6 % (0-4); Hematocrit 26.9 % (37.0-47.0); Hemoglobin 8.5 g/dl (12.0-16.0); Imm Gran Abs Auto 0.16 X10*3/uL (0.00-0.03); Imm Gran Pct Auto 1.1 % (0.0-0.4); Lymphocytes Absolute Auto 1.2 X10*3/uL (1.2-4.9); Lymphocytes Percent Auto 8.4 % (20-40); Mean Corpuscular HGB Conc 31.6 g/dl (31.0-35.0); Mean Corpuscular Hemoglobin 29.8 pg (27.0-33.0); Mean Corpuscular Volume 94.4 fL (80.0-98.0); Monocytes Percent Auto 6.9 % (2-11); Neutrophils Absolute Auto 11.5 x10*3/uL (2.0-8.3); Neutrophils Percent Auto 78.4 % (45-73); Platelet Count 358 X10*3/uL (160-400); Red Blood Count 2.85 X10*6/uL (4.20-5.50); Red Cell Distribution Width 14.2 % (11.0-16.0); White Blood Count 14.7 X10*3/uL (4.8-10.8)
[2021-05-25 06:49] LABS: Anion Gap 16 (12-20); Blood Urea Nitrogen 33 mg/dL (9-16); Calcium 7.9 mg/dL (8.4-10.2); Carbon Dioxide 18 mmol/L (22-29); Chloride 96 mmol/L (96-108); Glucose Random 131 mg/dL (60-115); Potassium 4.4 mmol/L (3.3-5.1); Sodium 126 mmol/L (135-145)
[2021-05-25 06:51] LABS: Creatinine Clr Calc Pharmacy 14.1; Estimated Glomerular Filt Rate 11
[2021-05-25 07:46] LABS: Glucose, Whole Blood 131 mg/dL (60-115)
[2021-05-25] MEDS: Loratadine 10 MG TABLET PO (08:24)
[2021-05-25] MEDS: Ferrous Sulfate 324 MG TABLET.DR 325 MG PO (08:24)
[2021-05-25] MEDS: Apixaban 5 MG TABLET PO (08:24)
[2021-05-25] MEDS: Albuterol/Iprat 2.5/0.5MG 3 ML AMPUL.NEB INHALE (09:07)
--- NOTE | 2021-05-25 10:11 | MHC.CM.PN ---
Female 75 DX Uremia/Anasarca Patient lives @ [facility]. DP return to [facility] via BLS. Patient is requiring supplement oxygen. The rate has been increased.
[2021-05-25] MEDS: Acetaminophen 325 MG TABLET PO (12:59)
--- NOTE | 2021-05-25 13:45 | HO.PM.IMPN ---
Subjective Subjective Date of Service: 05/25/21 Interval History: seen and examined this morning Follow-up for fluid overload/respiratory failure Still reporting shortness of breath, appears dyspneic No cough Review of Systems Review of Systems: Yes all other systems are reviewed and are negative Constitutional Constitutional: Denies chills and Denies fever(s) Cardiovascular Cardiovascular: Denies chest pain Respiratory Respiratory: Denies cough Gastrointestinal Gastrointestinal: Denies abdominal pain Physical Exam Vital Signs: Vital Signs: Last Vital Signs Temp 97.4 F 05/25/21 07:59 Pulse 111 H 05/25/21 07:59 Resp 19 05/25/21 07:59 BP 152/79 H 05/25/21 07:59 Pulse Ox 97 05/25/21 07:59 Oxygen Flow Rate 3 05/21/21 17:02 BMI result Body Mass Index 33.6 Const: General: comfortable, no acute distress, alert and awake Nutritional Appearance: well nourished Resp: Other: b/l expiraotory wheezing Effort & Inspection: tachypneic Auscultation: diminished lung sounds Cardio: Rate: tachycardic : Other: dao pink tinged urine Extrem: Other: no leg edema Objective Data Active Medications Acetaminophen (Acetaminophen 325 Mg Tablet) 325 mg PO Q8H PRN PRN Reason: Pain, Mild (Pain Scale 1-3) Last Admin: 05/25/21 12:59 Dose: 325 mg Documented by: LAY Albuterol/Ipratropium (Albuterol/Iprat 2.5/0.5mg 3 Ml Ampul.Neb) 3 ml INHALE RQ6H PRN PRN Reason: Shortness of Breath Last Admin: 05/25/21 09:07 Dose: 3 ml Documented by: NADEEN Apixaban (Apixaban 5 Mg Tablet) 5 mg PO BID [facility] Last Admin: 05/25/21 08:24 Dose: 5 mg Documented by: LAY Atorvastatin Calcium (Atorvastatin Calcium 40 Mg Tablet) 40 mg PO BEDTIME [facility] Last Admin: 05/24/21 21:08 Dose: 40 mg Documented by: PANFILO Dextrose (Dextrose 50 % 25 Gm/50 Ml Vial) 25 gm IVPUSH Q15M PRN; Protocol PRN Reason: per Hypoglycemia Standing Ord. Diltiazem HCl (Diltiazem Hcl Cd 120 Mg Cap.Er.Deg) 120 mg PO DAILY [facility]; Protocol Last Admin: 05/24/21 08:04 Dose: 120 mg Documented by: LAY Ferrous Sulfate (Ferrous Sulfate 324 Mg Tablet.Dr) 325 mg PO DAILY [facility] Last Admin: 05/25/21 08:24 Dose: 324 mg Documented by: LAY Gabapentin (Gabapentin 100 Mg Capsule) 100 mg PO BEDTIME [facility] Last Admin: 05/24/21 21:08 Dose: 100 mg Documented by: PANFILO Glucose (Glucose Gel 15 Gm Gel..Gram.) 15 gm PO Q15M PRN; Protocol PRN Reason: per Hypoglycemia Standing Ord. Hydroxyzine HCl (Hydroxyzine Hcl 25 Mg Tablet) 25 mg PO Q8H PRN PRN Reason: Anxiety Last Admin: 05/25/21 04:33 Dose: 25 mg Documented by: PANFILO Insulin Human Lispro (Insulin Lispro 100 Unit/Ml 3 Ml Vial) 0 unit SUBCUT QIDACHS [facility]; Protocol Last Admin: 05/25/21 07:46 Dose: Not Given Documented by: LAY Non-Admin Reason: No Insulin Coverage Levothyroxine Sodium (Levothyroxine Sodium 25 Mcg Tablet) 25 mcg PO DAILY@0600 [facility] Last Admin: 05/25/21 04:33 Dose: 25 mcg Documented by: PANFILO Loratadine (Loratadine 10 Mg Tablet) 10 mg PO DAILY [facility] Last Admin: 05/25/21 08:24 Dose: 10 mg Documented by: LAY Metoprolol Tartrate (Metoprolol Tartrate 25 Mg Tablet) 25 mg PO BID [facility]; Protocol Last Admin: 05/24/21 21:08 Dose: 25 mg Documented by: PANFILO Montelukast Sodium (Montelukast Sodium 10 Mg Tablet) 10 mg PO BEDTIME [facility] Last Admin: 05/24/21 21:08 Dose: 10 mg Documented by: PANFILO Labs CBC & Chem 7: 05/25/21 06:00 05/25/21 05:59 Labs: Laboratory Results - last 24 hr 05/21/21 05/22/21 05/23/21 16:56 05:19 09:30 MCV MCH MCHC RDW Plt Count MPV Immature Gran % (Auto) Neut % (Auto) Lymph % (Auto) [place] % (Auto) Eos % (Auto) Baso % (Auto) Lymph # (Auto) [place] # (Auto) Eos # (Auto) Baso # (Auto) Abs Immat Gran (auto) Absolute Neuts (auto) Absolute Nucleated RBC Nucleated RBC % (auto) Carbon Dioxide 22 21 L 17 L Anion Gap Estim Creat Clear Calc Estimated GFR POC Glucose Random Glucose Calcium 05/24/21 05/24/21 05/24/21 06:19 16:23 19:34 MCV MCH MCHC RDW Plt Count MPV Immature Gran % (Auto) Neut % (Auto) Lymph % (Auto) [place] % (Auto) Eos % (Auto) Baso % (Auto) Lymph # (Auto) [place] # (Auto) Eos # (Auto) Baso # (Auto) Abs Immat Gran (auto) Absolute Neuts (auto) Absolute Nucleated RBC Nucleated RBC % (auto) Carbon Dioxide 19 L Anion Gap Estim Creat Clear Calc Estimated GFR POC Glucose 303 H 204 H Random Glucose Calcium 05/25/21 05/25/21 05/25/21 05:59 06:00 07:40 MCV 94.4 MCH 29.8 MCHC 31.6 RDW 14.2 Plt Count 358 MPV 9.0 L Immature Gran % (Auto) 1.1 H Neut % (Auto) 78.4 H Lymph % (Auto) 8.4 L [place] % (Auto) 6.9 Eos % (Auto) 4.6 H Baso % (Auto) 0.6 Lymph # (Auto) 1.2 [place] # (Auto) 1.0 Eos # (Auto) 0.7 H Baso # (Auto) 0.1 Abs Immat Gran (auto) 0.16 H Absolute Neuts (auto) 11.5 H Absolute Nucleated RBC 0.000 Nucleated RBC % (auto) 0.0 Carbon Dioxide 18 L Anion Gap 16 Estim Creat Clear Calc 14.1 Estimated GFR 11 POC Glucose 131 H Random Glucose 131 H Calcium 7.9 L Microbiology Microbiology Results: Microbiology 05/21/21 18:38 Urine Culture - Preliminary Urine clean catch - Urine egan top Yeast Assessment and Plan (1) Pleural effusion: Status: Acute Assessment and Plan: This is a 75-year-old Georgian-speaking female with history ESRD recently started hemodialysis, DM, AFib who presented to the emergency department with respiratory distress who was admitted to the ICU on 05/21 for emergent dialysis, downgraded to the medical floor 05/22 acute respiratory failure with hypoxia thought to be secondary to fluid overload, has had multiple days of dialysis in a row Still requiring 4 L nasal cannula and appears dyspneic Show CT shows no evidence of pneumonia but large bilateral pleural effusions thoracentesis ordered, unable to be done until Friday, eliquis on hold for procedure supplemental oxygen as needed ESRD s/p HD 05/21, 05/22, 05/23 will resume regular schedule of HD nephrology following Hyponatremia will follow BMP closely nephrology following atrial fibrillation HR controlled continue home diltiazem, metoprolol eliquis on hold for thoracentesis h/o basilic vein thrombus (diagnosed 05/13) eliquis on hold for thoracentesis will start heparin drip until after procedure hematuria resolved H/H stable hypothyroidism continue synthroid DM SSI, POCs HLD continue statin dvt ppx -eliquis on hold; heparin attending - dr mcbride Quality Stroke Does the patient have a stroke diagnosis?: No VTE Prior VTE?: No VTE Risk Level:: Medical - moderate - high VTE Device Contraindication: N/A - Device Ordered VTE Drug Contraindication: N/A - Med Ordered
[2021-05-25] MEDS: dilTIAZem HCL CD 120 MG CAP.ER.DEG PO (14:36)
[2021-05-25] MEDS: Metoprolol Tartrate 25 MG TABLET PO ×2 (14:36→21:05)
[2021-05-25 15:04] LABS: Glucose, Whole Blood 150 mg/dL (60-115)
[2021-05-25 15:28] LABS: INTERNATIONAL NORM RATIO 1.8 (0.9-1.1); Prothrombin Time 20.7 SEC (9.9-13.0)
[2021-05-25 15:30] LABS: PTT Heparin Drip 44.4 SEC (53-77.9)
[2021-05-25 16:10] LABS: Glucose, Whole Blood 219 mg/dL (60-115)
[2021-05-25 16:25] LABS: Hematocrit 25.5 % (37.0-47.0); Hemoglobin 8.2 g/dl (12.0-16.0); Mean Corpuscular HGB Conc 32.2 g/dl (31.0-35.0); Mean Corpuscular Hemoglobin 30.1 pg (27.0-33.0); Mean Corpuscular Volume 93.8 fL (80.0-98.0); Mean Platelet Volume 9.1 fL (9.4-12.3); Platelet Count 296 X10*3/uL (160-400); Red Blood Count 2.72 X10*6/uL (4.20-5.50); Red Cell Distribution Width 14.2 % (11.0-16.0); White Blood Count 12.9 X10*3/uL (4.8-10.8)
[2021-05-25] MEDS: Insulin Lispro 100 UNIT/ML 3 ML VIAL SUBCUT ×2 (16:46→21:05)
[2021-05-25 20:10] LABS: Glucose, Whole Blood 196 mg/dL (60-115)
[2021-05-25] MEDS: Gabapentin 100 MG CAPSULE PO (21:04)
[2021-05-25] MEDS: Atorvastatin Calcium 40 MG TABLET PO (21:05)
[2021-05-25] MEDS: Montelukast Sodium 10 MG TABLET PO (21:05)
[2021-05-25] MEDS: Heparin Sodium,Porcine/1/2NS 25,000 UNIT/250 ML IV.SOLN 13.23 UNIT IVCONT (21:12)
[2021-05-26] VITALS (7 sets, daily range): BP systolic 115–178; BP diastolic 57–96; PULSE 75–98; RESP 18–20; TEMP 36.1–36.8; O2SAT 95–100; BMI 31.5
[2021-05-26] MEDS: Levothyroxine Sodium 25 MCG TABLET PO (06:24)
--- NOTE | 2021-05-26 06:40 | PC.NURSE ---
PTTHD was due at 0315 it was drawn on time by phlebotomy, but enough want drawn. There was a second draw and lab called saying that the draw would be short . The lab put in for the next manager assisted living to draw the lab. Overnight supervisor of way and hospitalist aware.
[2021-05-26 07:17] LABS: Glucose, Whole Blood 122 mg/dL (60-115)
[2021-05-26] MEDS: Metoprolol Tartrate 25 MG TABLET PO (09:12)
[2021-05-26] MEDS: dilTIAZem HCL CD 120 MG CAP.ER.DEG PO (09:12)
[2021-05-26] MEDS: Loratadine 10 MG TABLET PO (09:13)
[2021-05-26] MEDS: Ferrous Sulfate 324 MG TABLET.DR 325 MG PO (09:13)
--- NOTE | 2021-05-26 09:57 | PM.PNNEP ---
Subjective Subjective Date of Service: 05/26/21 Principal diagnosis: ESRD, HF Interval history: seen and examined this morning no complaints Physical Exam Vital Signs: Vital Signs: Last Vital Signs Temp 97.5 F 05/26/21 07:13 Pulse 98 05/26/21 09:12 Resp 20 05/26/21 07:13 BP 166/75 H 05/26/21 09:12 Pulse Ox 95 05/26/21 07:13 Oxygen Flow Rate 3 05/21/21 17:02 BMI result Body Mass Index 31.5 Const: General: alert and awake HENMT: Head: Yes normocephalic and Yes atraumatic Neck: Neck: Yes supple Resp: Auscultation: diminished lung sounds Cardio: Heart sounds: S1 normal heart sound present and S2 normal heart sound present GI: Palpation (GI): Soft to palpation and nontender Extrem: General: No edema Objective Data Labs CBC & Chem 7: 05/25/21 16:18 05/25/21 05:59 Labs: Laboratory Results - last 24 hr 05/25/21 05/25/21 05/25/21 14:38 15:02 16:07 WBC RBC Hgb Hct MCV MCH MCHC RDW Plt Count MPV Absolute Nucleated RBC Nucleated RBC % (auto) PT 20.7 H INR 1.8 H PTT (Heparin Protocol) 44.4 L D POC Glucose 150 H 219 H 05/25/21 05/25/21 05/26/21 16:18 20:06 07:11 WBC 12.9 H RBC 2.72 L Hgb 8.2 L Hct 25.5 L MCV 93.8 MCH 30.1 MCHC 32.2 RDW 14.2 Plt Count 296 MPV 9.1 L Absolute Nucleated RBC 0.000 Nucleated RBC % (auto) 0.0 PT INR PTT (Heparin Protocol) POC Glucose 196 H 122 H Microbiology Microbiology Results: Microbiology 05/21/21 18:38 Urine clean catch - Urine egan top Urine Culture - Final Tiffanie glabrata 05/21/21 17:31 Blood - Venous Blood Culture - Preliminary No growth after 48 hours. 05/21/21 17:31 Blood - Venous Blood Culture - Preliminary No growth after 48 hours. Procedures Date of Service Date of Service: 05/26/21 Assessment & Plan Assessment and plan (1) ESRD (end stage renal disease): Status: Acute (2) Hyponatremia: Status: Acute (3) Anemia: Status: Acute Assessment and Plan: recently started hemodialysis ESRD due to DM/HTN now on HD mwf REC HD per schedule restrict free water intake renal diet DARA per protocol will arrange for outpatient HD Time Spent With Patient Time: Total time spent is greater than 50% in coordination of care (as documented) at patient's floor/unit and/or counseling patient: Progress Note: Quality Stroke Does the patient have a stroke diagnosis?: No
[2021-05-26 10:58] LABS: Glucose, Whole Blood 183 mg/dL (60-115)
[2021-05-26] MEDS: Insulin Lispro 100 UNIT/ML 3 ML VIAL SUBCUT ×2 (12:12→20:44)
[2021-05-26] MEDS: Heparin Sodium,Porcine 5,000 UNIT/ML VIAL 5000 UNIT SUBCUT (12:13)
--- NOTE | 2021-05-26 14:24 | P.PNIM_ITS ---
Subjective Subjective Date of Service: 05/26/21 <ALEJANDRA Farris - Last Filed: 05/26/21 14:32> 05/27/21 <Praful Cee MD - Last Filed: 05/27/21 08:08> Interval History: seen and examined this morning follow up for fluid overload difficulty drawing labs for heprain drip some improvement in breathing this morning no cough <ALEJANDRA Farris - Last Filed: 05/26/21 14:32> Review of Systems Review of Systems: Yes all other systems are reviewed and are negative <ALEJANDRA Farris - Last Filed: 05/26/21 14:32> Constitutional Constitutional: Denies chills and Denies fever(s) <ALEJANDRA Farris - Last Filed: 05/26/21 14:32> Cardiovascular Cardiovascular: Denies chest pain <ALEJANDRA Farris - Last Filed: 05/26/21 14:32> Respiratory Respiratory: Denies cough <ALEJANDRA Farris - Last Filed: 05/26/21 14:32> Gastrointestinal Gastrointestinal: Denies abdominal pain <ALEJANDRA Farris - Last Filed: 05/26/21 14:32> Physical Exam Vital Signs: Vital Signs: Last Vital Signs Temp 97.6 F 05/26/21 11:21 Pulse 76 05/26/21 11:21 Resp 20 05/26/21 11:21 BP 178/96 H 05/26/21 11:21 Pulse Ox 100 05/26/21 11:21 Oxygen Flow Rate 3 05/21/21 17:02 BMI result Body Mass Index 31.5 <ALEJANDRA Farris - Last Filed: 05/26/21 14:32> Const: General: comfortable, no acute distress, alert and awake <ALEJANDRA Farris Last Filed: 05/26/21 14:32> Nutritional Appearance: well nourished <ALEJANDRA Farris - Last Filed: 05/26/21 14:32> Resp: Effort & Inspection: normal respiratory effort <ALEJANDRA Farris Last Filed: 05/26/21 14:32> Auscultation: diminished lung sounds <ALEJANDRA Farris - Last Filed: 05/26/21 14:32> Cardio: Rate: tachycardic <ALEJANDRA Farris - Last Filed: 05/26/21 14:32> : Other: dao pink tinged urine <ALEJANDRA Farris - Last Filed: 05/26/21 14:32> Extrem: Other: no leg edema <ALEJANDRA Farris - Last Filed: 05/26/21 14:32> Objective Data Active Medications Acetaminophen (Acetaminophen 325 Mg Tablet) 325 mg PO Q8H PRN PRN Reason: Pain, Mild (Pain Scale 1-3) Last Admin: 05/25/21 12:59 Dose: 325 mg Documented by: LAY Albuterol/Ipratropium (Albuterol/Iprat 2.5/0.5mg 3 Ml Ampul.Neb) 3 ml INHALE RQ6H PRN PRN Reason: Shortness of Breath Last Admin: 05/25/21 09:07 Dose: 3 ml Documented by: NADEEN Apixaban (Apixaban 5 Mg Tablet) 5 mg PO BID [facility] Last Admin: 05/25/21 08:24 Dose: 5 mg Documented by: LAY Atorvastatin Calcium (Atorvastatin Calcium 40 Mg Tablet) 40 mg PO BEDTIME [facility] Last Admin: 05/25/21 21:05 Dose: 40 mg Documented by: CECILIO Dextrose (Dextrose 50 % 25 Gm/50 Ml Vial) 25 gm IVPUSH Q15M PRN; Protocol PRN Reason: per Hypoglycemia Standing Ord. Diltiazem HCl (Diltiazem Hcl Cd 120 Mg Cap.Er.Deg) 120 mg PO DAILY [facility]; Protocol Last Admin: 05/26/21 09:12 Dose: 120 mg Documented by: AYDEN Ferrous Sulfate (Ferrous Sulfate 324 Mg Tablet.Dr) 325 mg PO DAILY [facility] Last Admin: 05/26/21 09:13 Dose: 325 mg Documented by: AYDEN Gabapentin (Gabapentin 100 Mg Capsule) 100 mg PO BEDTIME [facility] Last Admin: 05/25/21 21:04 Dose: 100 mg Documented by: CECILIO Glucose (Glucose Gel 15 Gm Gel..Gram.) 15 gm PO Q15M PRN; Protocol PRN Reason: per Hypoglycemia Standing Ord. Heparin Sodium (Porcine) (Heparin Sodium,Porcine 5,000 Unit/Ml Vial) 5,000 unit SUBCUT Q12H [facility] Last Admin: 05/26/21 12:13 Dose: 5,000 unit Documented by: AYDEN Hydroxyzine HCl (Hydroxyzine Hcl 25 Mg Tablet) 25 mg PO Q8H PRN PRN Reason: Anxiety Last Admin: 05/25/21 04:33 Dose: 25 mg Documented by: PANFILO Insulin Human Lispro (Insulin Lispro 100 Unit/Ml 3 Ml Vial) 0 unit SUBCUT QIDACHS [facility]; Protocol Last Admin: 05/26/21 12:12 Dose: 2 unit Documented by: AYDEN Levothyroxine Sodium (Levothyroxine Sodium 25 Mcg Tablet) 25 mcg PO DAILY@0600 [facility] Last Admin: 05/26/21 06:24 Dose: 25 mcg Documented by: CECILIO Loratadine (Loratadine 10 Mg Tablet) 10 mg PO DAILY [facility] Last Admin: 05/26/21 09:13 Dose: 10 mg Documented by: AYDEN Metoprolol Tartrate (Metoprolol Tartrate 25 Mg Tablet) 25 mg PO BID [facility]; Protocol Last Admin: 05/26/21 09:12 Dose: 25 mg Documented by: AYDEN Montelukast Sodium (Montelukast Sodium 10 Mg Tablet) 10 mg PO BEDTIME [facility] Last Admin: 05/25/21 21:05 Dose: 10 mg Documented by: CECILIO Psyllium Hydrophilic Mucilloid (Psyllium Seed 3.4 Gm Powd.Pack) 3.4 gm PO DAILY [facility] Tramadol HCl (Tramadol Hcl 50 Mg Tablet) 25 mg PO Q24H PRN PRN Reason: Pain (Scale Score 4-6) <ALEJANDRA Farris - Last Filed: 05/26/21 14:32> Labs CBC & Chem 7: : 05/27/21 07:49 05/25/21 05:59 <ALEJANDRA Farris - Last Filed: 05/26/21 14:32> Labs: Laboratory Results - last 24 hr 05/25/21 05/25/21 05/25/21 14:38 15:02 16:07 MCV MCH MCHC RDW Plt Count MPV Absolute Nucleated RBC Nucleated RBC % (auto) PT 20.7 H INR 1.8 H PTT (Heparin Protocol) 44.4 L D POC Glucose 150 H 219 H 05/25/21 05/25/21 05/26/21 16:18 20:06 04:46 MCV 93.8 MCH 30.1 MCHC 32.2 RDW 14.2 Plt Count 296 MPV 9.1 L Absolute Nucleated RBC 0.000 Nucleated RBC % (auto) 0.0 PT INR PTT (Heparin Protocol) Cancelled POC Glucose 196 H 05/26/21 05/26/21 07:11 10:55 MCV MCH MCHC RDW Plt Count MPV Absolute Nucleated RBC Nucleated RBC % (auto) PT INR PTT (Heparin Protocol) POC Glucose 122 H 183 H <ALEJANDRA Farris - Last Filed: 05/26/21 14:32> Microbiology Microbiology Results: Microbiology 05/21/21 18:38 Urine Culture - Final Urine clean catch - Urine egan top Tiffanie glabrata <ALEJANDRA Farris - Last Filed: 05/26/21 14:32> Assessment and Plan (1) ESRD (end stage renal disease): Status: Acute <ALEJANDRA Farris - Last Filed: 05/26/21 14:32> (2) Pleural effusion: Status: Acute <ALEJANDRA Farris - Last Filed: 05/26/21 14:32> Assessment and Plan: This is a 75-year-old Panamanian-speaking female with history ESRD recently started hemodialysis, DM, AFib who presented to the emergency department with respiratory distress who was admitted to the ICU on 05/21 for emergent dialysis, downgraded to the medical floor 05/22 acute respiratory failure with hypoxia. breathing less labored after HD yesterday thought to be secondary to fluid overload, has had multiple days of dialysis in a row CT shows no evidence of pneumonia but large bilateral pleural effusions thoracentesis ordered, unable to be done until Friday, eliquis on hold for procedure supplemental oxygen as needed repeat cxr showing smaller effusions, breathing easier today; may be able to hold off on thoracentesis if continues to improve ESRD will resume regular schedule of HD [facility] nephrology following Hyponatremia will follow BMP closely nephrology following atrial fibrillation HR controlled continue home diltiazem, metoprolol eliquis on hold for thoracentesis h/o basilic vein thrombus (diagnosed 05/13) eliquis on hold for thoracentesis. initially started on heparin bridge, but difficulty getting labs, heparin drip d/c subq heparin for dvt ppx, will repeat right upper extremity DVT study to assess for clot hematuria resolved H/H stable hypothyroidism continue synthroid DM SSI, POCs HLD continue statin dvt ppx -eliquis on hold; heparin attending - dr cee <ALEJANDRA Farris - Last Filed: 05/26/21 14:32> Quality Stroke Does the patient have a stroke diagnosis?: No <ALEJANDRA Farris - Last Filed: 05/26/21 14:32> VTE Prior VTE?: No <ALEJANDRA Farris - Last Filed: 05/26/21 14:32> VTE Risk Level:: Medical - moderate - high <ALEJANDRA Farris - Last Filed: 05/26/21 14:32> VTE Device Contraindication: N/A - Device Ordered <ALEJANDRA Farris - Last Filed: 05/26/21 14:32> VTE Drug Contraindication: N/A - Med Ordered <ALEJANDRA Farris - Last Filed: 05/26/21 14:32>
[2021-05-26 16:00] LABS: Glucose, Whole Blood 134 mg/dL (60-115)
[2021-05-26 19:32] LABS: Glucose, Whole Blood 197 mg/dL (60-115)
[2021-05-26] MEDS: Atorvastatin Calcium 40 MG TABLET PO (20:43)
[2021-05-26] MEDS: hydrOXYzine HCL 25 MG TABLET PO (20:43)
[2021-05-26] MEDS: Montelukast Sodium 10 MG TABLET PO (20:43)
[2021-05-26] MEDS: Gabapentin 100 MG CAPSULE PO (20:44)
[2021-05-27] VITALS (7 sets, daily range): BP systolic 110–164; BP diastolic 56–95; PULSE 78–113; RESP 18–20; TEMP 36.1–37.1; O2SAT 93–100; BMI 33.7
[2021-05-27] MEDS: Heparin Sodium,Porcine 5,000 UNIT/ML VIAL 5000 UNIT SUBCUT ×3 (00:06→17:51)
[2021-05-27] MEDS: Levothyroxine Sodium 25 MCG TABLET PO (06:00)
[2021-05-27 06:58] LABS: Glucose, Whole Blood 135 mg/dL (60-115)
[2021-05-27 07:52] LABS: MANUAL DIFF FLAG NO
[2021-05-27 07:58] LABS: Basophils Absolute Auto 0.1 X10*3/uL (0.0-0.2); Basophils Percent Auto 0.7 % (0-2); Eosinophils Absolute Auto 0.6 X10*3/uL (0.0-0.4); Eosinophils Percent Auto 6.2 % (0-4); Hematocrit 24.9 % (37.0-47.0); Hemoglobin 8.2 g/dl (12.0-16.0); Imm Gran Abs Auto 0.17 X10*3/uL (0.00-0.03); Imm Gran Pct Auto 1.7 % (0.0-0.4); Lymphocytes Absolute Auto 1.4 X10*3/uL (1.2-4.9); Lymphocytes Percent Auto 13.8 % (20-40); Mean Corpuscular HGB Conc 32.9 g/dl (31.0-35.0); Mean Corpuscular Hemoglobin 29.8 pg (27.0-33.0); Mean Corpuscular Volume 90.5 fL (80.0-98.0); Mean Platelet Volume 9.8 fL (9.4-12.3); Monocytes Absolute Auto 0.8 X10*3/uL (0.1-1.2); Monocytes Percent Auto 7.6 % (2-11); Neutrophils Absolute Auto 7.1 x10*3/uL (2.0-8.3); Platelet Count 268 X10*3/uL (160-400); Red Blood Count 2.75 X10*6/uL (4.20-5.50); Red Cell Distribution Width 14.3 % (11.0-16.0); White Blood Count 10.2 X10*3/uL (4.8-10.8)
[2021-05-27 08:22] LABS: Anion Gap 14 (12-20); Blood Urea Nitrogen 34 mg/dL (9-16); Calcium 7.9 mg/dL (8.4-10.2); Carbon Dioxide 16 mmol/L (22-29); Chloride 102 mmol/L (96-108); Creatinine Clr Calc Pharmacy 12.8; Estimated Glomerular Filt Rate 9; Glucose Random 148 mg/dL (60-115); Magnesium 1.9 mg/dL (1.6-2.6); Potassium 4.4 mmol/L (3.3-5.1); Sodium 128 mmol/L (135-145)
[2021-05-27] MEDS: Ferrous Sulfate 324 MG TABLET.DR PO (08:36)
[2021-05-27] MEDS: Loratadine 10 MG TABLET PO (08:36)
[2021-05-27] MEDS: dilTIAZem HCL CD 120 MG CAP.ER.DEG PO (08:37)
--- NOTE | 2021-05-27 09:51 | PM.PNNEP ---
Subjective Subjective Date of Service: 05/27/21 Principal diagnosis: ESRD, HF Interval history: seen and examined this morning SOB better denies CP, N/V/D Physical Exam Vital Signs: Vital Signs: Last Vital Signs Temp 97.8 F 05/27/21 06:52 Pulse 113 H 05/27/21 08:37 Resp 20 05/27/21 06:52 BP 112/60 05/27/21 08:37 Pulse Ox 98 05/27/21 06:52 Oxygen Flow Rate 3 05/21/21 17:02 BMI result Body Mass Index 33.7 Const: General: alert and awake HENMT: Head: Yes normocephalic and Yes atraumatic Neck: Neck: Yes supple Resp: Auscultation: diminished lung sounds Cardio: Heart sounds: S1 normal heart sound present and S2 normal heart sound present GI: Palpation (GI): Soft to palpation and nontender Extrem: General: No edema Objective Data Labs CBC & Chem 7: 05/27/21 07:49 05/27/21 07:49 Labs: Laboratory Results - last 24 hr 05/26/21 05/26/21 05/26/21 04:46 10:55 15:56 WBC RBC Hgb Hct MCV MCH MCHC RDW Plt Count MPV Immature Gran % (Auto) Neut % (Auto) Lymph % (Auto) [place] % (Auto) Eos % (Auto) Baso % (Auto) Lymph # (Auto) [place] # (Auto) Eos # (Auto) Baso # (Auto) Abs Immat Gran (auto) Absolute Neuts (auto) Absolute Nucleated RBC Nucleated RBC % (auto) PTT (Heparin Protocol) Cancelled Sodium Potassium Chloride Carbon Dioxide Anion Gap BUN Creatinine Estim Creat Clear Calc Estimated GFR POC Glucose 183 H 134 H Random Glucose Calcium Magnesium 05/26/21 05/27/21 05/27/21 19:29 06:55 07:49 WBC 10.2 RBC 2.75 L Hgb 8.2 L Hct 24.9 L MCV 90.5 MCH 29.8 MCHC 32.9 RDW 14.3 Plt Count 268 MPV 9.8 Immature Gran % (Auto) 1.7 H Neut % (Auto) 70.0 Lymph % (Auto) 13.8 L [place] % (Auto) 7.6 Eos % (Auto) 6.2 H Baso % (Auto) 0.7 Lymph # (Auto) 1.4 [place] # (Auto) 0.8 Eos # (Auto) 0.6 H Baso # (Auto) 0.1 Abs Immat Gran (auto) 0.17 H Absolute Neuts (auto) 7.1 Absolute Nucleated RBC 0.000 Nucleated RBC % (auto) 0.0 PTT (Heparin Protocol) Sodium Potassium Chloride Carbon Dioxide Anion Gap BUN Creatinine Estim Creat Clear Calc Estimated GFR POC Glucose 197 H 135 H Random Glucose Calcium Magnesium 05/27/21 07:49 WBC RBC Hgb Hct MCV MCH MCHC RDW Plt Count MPV Immature Gran % (Auto) Neut % (Auto) Lymph % (Auto) [place] % (Auto) Eos % (Auto) Baso % (Auto) Lymph # (Auto) [place] # (Auto) Eos # (Auto) Baso # (Auto) Abs Immat Gran (auto) Absolute Neuts (auto) Absolute Nucleated RBC Nucleated RBC % (auto) PTT (Heparin Protocol) Sodium 128 L Potassium 4.4 Chloride 102 Carbon Dioxide 16 L Anion Gap 14 BUN 34 H Creatinine 4.54 H* Estim Creat Clear Calc 12.8 Estimated GFR 9 POC Glucose Random Glucose 148 H Calcium 7.9 L Magnesium 1.9 Microbiology Microbiology Results: Microbiology 05/21/21 17:31 Blood - Venous Blood Culture - Final No growth after 5 days. 05/21/21 17:31 Blood - Venous Blood Culture - Final No growth after 5 days. 05/21/21 18:38 Urine clean catch - Urine egan top Urine Culture - Final Tiffanie glabrata Procedures Date of Service Date of Service: 05/27/21 Assessment & Plan Assessment and plan (1) ESRD (end stage renal disease): Status: Acute (2) Hyponatremia: Status: Acute (3) Anemia: Status: Acute Assessment and Plan: recently started hemodialysis ESRD due to DM/HTN now on HD mwf REC HD tomorrow restrict free water intake renal diet DARA per protocol will arrange for outpatient HD next week Time Spent With Patient Time: Total time spent is greater than 50% in coordination of care (as documented) at patient's floor/unit and/or counseling patient: Progress Note: Quality Stroke Does the patient have a stroke diagnosis?: No
[2021-05-27 10:56] LABS: Glucose, Whole Blood 189 mg/dL (60-115)
[2021-05-27] MEDS: Insulin Lispro 100 UNIT/ML 3 ML VIAL SUBCUT ×2 (11:03→20:50)
[2021-05-27] MEDS: traMADoL HCL 50 MG TABLET 25 MG PO (11:14)
--- NOTE | 2021-05-27 12:02 | HO.PM.IMPN ---
Subjective Subjective Date of Service: 05/27/21 <ALEJANDRA Farris - Last Filed: 05/27/21 12:10> 05/28/21 <Praful Cee MD - Last Filed: 05/28/21 09:04> Interval History: seen and examined this morning follow up for fluid overload breathing easier this morning no cough <ALEJANDRA Farris - Last Filed: 05/27/21 12:10> Review of Systems Review of Systems: Yes all other systems are reviewed and are negative <ALEJANDRA Farris - Last Filed: 05/27/21 12:10> Constitutional Constitutional: Denies chills and Denies fever(s) <ALEJANDRA Farris - Last Filed: 05/27/21 12:10> Cardiovascular Cardiovascular: Denies chest pain <ALEJANDRA Farris - Last Filed: 05/27/21 12:10> Respiratory Respiratory: Denies cough <ALEJANDRA Farris - Last Filed: 05/27/21 12:10> Gastrointestinal Gastrointestinal: Denies abdominal pain <ALEJANDRA Farris - Last Filed: 05/27/21 12:10> Physical Exam Vital Signs: Vital Signs: Last Vital Signs Temp 97.3 F 05/27/21 10:53 Pulse 78 05/27/21 10:53 Resp 19 05/27/21 10:53 BP 136/95 H 05/27/21 10:53 Pulse Ox 95 05/27/21 10:53 Oxygen Flow Rate 3 05/21/21 17:02 BMI result Body Mass Index 33.7 <ALEJANDRA Farris - Last Filed: 05/27/21 12:10> Const: General: comfortable, no acute distress, alert and awake <ALEJANDRA Farris - Last Filed: 05/27/21 12:10> Nutritional Appearance: well nourished <ALEJANDRA Farris - Last Filed: 05/27/21 12:10> Resp: Effort & Inspection: normal respiratory effort <ALEJANDRA Farris - Last Filed: 05/27/21 12:10> Auscultation: diminished lung sounds <ALEJANDRA Farris - Last Filed: 05/27/21 12:10> Cardio: Rate: regular rate <ALEJANDRA Farris - Last Filed: 05/27/21 12:10> : Other: dao pink tinged urine <ALEJANDRA Farris - Last Filed: 05/27/21 12:10> Extrem: Other: no leg edema <ALEJANDRA Farris - Last Filed: 05/27/21 12:10> Objective Data Active Medications Acetaminophen (Acetaminophen 325 Mg Tablet) 325 mg PO Q8H PRN PRN Reason: Pain, Mild (Pain Scale 1-3) Last Admin: 05/25/21 12:59 Dose: 325 mg Documented by: LAY Albuterol/Ipratropium (Albuterol/Iprat 2.5/0.5mg 3 Ml Ampul.Neb) 3 ml INHALE RQ6H PRN PRN Reason: Shortness of Breath Last Admin: 05/25/21 09:07 Dose: 3 ml Documented by: NADEEN Apixaban (Apixaban 5 Mg Tablet) 5 mg PO BID [facility] Last Admin: 05/25/21 08:24 Dose: 5 mg Documented by: LAY Atorvastatin Calcium (Atorvastatin Calcium 40 Mg Tablet) 40 mg PO BEDTIME [facility] Last Admin: 05/26/21 20:43 Dose: 40 mg Documented by: CECILIO Dextrose (Dextrose 50 % 25 Gm/50 Ml Vial) 25 gm IVPUSH Q15M PRN; Protocol PRN Reason: per Hypoglycemia Standing Ord. Diltiazem HCl (Diltiazem Hcl Cd 120 Mg Cap.Er.Deg) 120 mg PO DAILY [facility]; Protocol Last Admin: 05/27/21 08:37 Dose: 120 mg Documented by: AYDEN Ferrous Sulfate (Ferrous Sulfate 324 Mg Tablet.Dr) 324 mg PO DAILY [facility] Last Admin: 05/27/21 08:36 Dose: 324 mg Documented by: AYDEN Gabapentin (Gabapentin 100 Mg Capsule) 100 mg PO BEDTIME [facility] Last Admin: 05/26/21 20:44 Dose: 100 mg Documented by: CECILIO Glucose (Glucose Gel 15 Gm Gel..Gram.) 15 gm PO Q15M PRN; Protocol PRN Reason: per Hypoglycemia Standing Ord. Heparin Sodium (Porcine) (Heparin Sodium,Porcine 5,000 Unit/Ml Vial) 5,000 unit SUBCUT Q12H [facility] Last Admin: 05/27/21 11:04 Dose: 5,000 unit Documented by: AYDEN Hydroxyzine HCl (Hydroxyzine Hcl 25 Mg Tablet) 25 mg PO Q8H PRN PRN Reason: Anxiety Last Admin: 05/26/21 20:43 Dose: 25 mg Documented by: CECILIO Insulin Human Lispro (Insulin Lispro 100 Unit/Ml 3 Ml Vial) 0 unit SUBCUT QIDACHS [facility]; Protocol Last Admin: 05/27/21 11:03 Dose: 2 unit Documented by: AYDEN Levothyroxine Sodium (Levothyroxine Sodium 25 Mcg Tablet) 25 mcg PO DAILY@0600 [facility] Last Admin: 05/27/21 06:00 Dose: 25 mcg Documented by: CECILIO Loratadine (Loratadine 10 Mg Tablet) 10 mg PO DAILY [facility] Last Admin: 05/27/21 08:36 Dose: 10 mg Documented by: AYDEN Montelukast Sodium (Montelukast Sodium 10 Mg Tablet) 10 mg PO BEDTIME [facility] Last Admin: 05/26/21 20:43 Dose: 10 mg Documented by: CECILIO Psyllium Hydrophilic Mucilloid (Psyllium Seed 3.4 Gm Powd.Pack) 3.4 gm PO DAILY [facility] Last Admin: 05/27/21 08:36 Dose: 3.4 gm Documented by: AYDEN Tramadol HCl (Tramadol Hcl 50 Mg Tablet) 25 mg PO Q24H PRN PRN Reason: Pain (Scale Score 4-6) Last Admin: 05/27/21 11:14 Dose: 25 mg Documented by: AYDEN <ALEJANDRA Farris - Last Filed: 05/27/21 12:10> Labs CBC & Chem 7: : 05/28/21 05:11 05/27/21 07:49 <ALEJANDRA Farris - Last Filed: 05/27/21 12:10> Labs: Laboratory Results - last 24 hr 05/26/21 05/26/21 05/26/21 04:46 15:56 19:29 MCV MCH MCHC RDW Plt Count MPV Immature Gran % (Auto) Neut % (Auto) Lymph % (Auto) [place] % (Auto) Eos % (Auto) Baso % (Auto) Lymph # (Auto) [place] # (Auto) Eos # (Auto) Baso # (Auto) Abs Immat Gran (auto) Absolute Neuts (auto) Absolute Nucleated RBC Nucleated RBC % (auto) PTT (Heparin Protocol) Cancelled Anion Gap Estim Creat Clear Calc Estimated GFR POC Glucose 134 H 197 H Random Glucose Calcium Magnesium 05/27/21 05/27/21 05/27/21 06:55 07:49 07:49 MCV 90.5 MCH 29.8 MCHC 32.9 RDW 14.3 Plt Count 268 MPV 9.8 Immature Gran % (Auto) 1.7 H Neut % (Auto) 70.0 Lymph % (Auto) 13.8 L [place] % (Auto) 7.6 Eos % (Auto) 6.2 H Baso % (Auto) 0.7 Lymph # (Auto) 1.4 [place] # (Auto) 0.8 Eos # (Auto) 0.6 H Baso # (Auto) 0.1 Abs Immat Gran (auto) 0.17 H Absolute Neuts (auto) 7.1 Absolute Nucleated RBC 0.000 Nucleated RBC % (auto) 0.0 PTT (Heparin Protocol) Anion Gap 14 Estim Creat Clear Calc 12.8 Estimated GFR 9 POC Glucose 135 H Random Glucose 148 H Calcium 7.9 L Magnesium 1.9 05/27/21 10:52 MCV MCH MCHC RDW Plt Count MPV Immature Gran % (Auto) Neut % (Auto) Lymph % (Auto) [place] % (Auto) Eos % (Auto) Baso % (Auto) Lymph # (Auto) [place] # (Auto) Eos # (Auto) Baso # (Auto) Abs Immat Gran (auto) Absolute Neuts (auto) Absolute Nucleated RBC Nucleated RBC % (auto) PTT (Heparin Protocol) Anion Gap Estim Creat Clear Calc Estimated GFR POC Glucose 189 H Random Glucose Calcium Magnesium <ALEJANDRA Farris - Last Filed: 05/27/21 12:10> Microbiology Microbiology Results: Microbiology 05/21/21 17:31 Blood Culture - Final Blood - Venous No growth after 5 days. 05/21/21 17:31 Blood Culture - Final Blood - Venous No growth after 5 days. 05/21/21 18:38 Urine Culture - Final Urine clean catch - Urine egan top Angeli glabrata <ALEJANDRA Farris - Last Filed: 05/27/21 12:10> Assessment and Plan (1) ESRD (end stage renal disease): Status: Acute <ALEJANDRA Farris - Last Filed: 05/27/21 12:10> (2) Pleural effusion: Status: Acute <ALEJANDRA Farris - Last Filed: 05/27/21 12:10> (3) Hematuria: Status: Acute <ALEJANDRA Farris - Last Filed: 05/27/21 12:10> (4) Anemia: Status: Acute <ALEJANDRA Farris - Last Filed: 05/27/21 12:10> (5) Atrial fibrillation: Status: Acute <ALEJANDRA Farris - Last Filed: 05/27/21 12:10> Assessment and Plan: This is a 75-year-old Ivorian-speaking female with history ESRD recently started hemodialysis, DM, AFib who presented to the emergency department with respiratory distress who was admitted to the ICU on 05/21 for emergent dialysis, downgraded to the medical floor 05/22 acute respiratory failure with hypoxia. breathing less labored thought to be secondary to fluid overload, has had multiple days of dialysis in a row CT shows no evidence of pneumonia but large bilateral pleural effusions. thoracentesis ordered, unable to be done until Friday, eliquis on hold for procedure repeat cxr showing smaller effusions, breathing easier today; may be able to hold off on thoracentesis if continues to improve wean oxygen as tolerated ESRD will resume regular schedule of HD [facility] nephrology following atrial fibrillation HR controlled continue home diltiazem metoprolol d/c for multiple sinus pauses eliquis on hold for thoracentesis h/o basilic vein thrombus (diagnosed 05/13) eliquis on hold for thoracentesis. initially started on heparin bridge, but difficulty getting PTT labs so heparin drip d/c yesterday afternoon repeat right upper extremity DVT study negative for basilic vein clot but showing new clot adjacent to right IJ catheter will resume heparin drip hematology consult given pt developed new clot while on eliquis urine growing angeli no need to treat Hyponatremia will follow BMP closely nephrology following hematuria resolved H/H stable hypothyroidism continue synthroid DM SSI, POCs HLD continue statin dvt ppx -eliquis on hold; heparin attending - dr cee <ALEJANDRA Farris - Last Filed: 05/27/21 12:10> Quality Stroke Does the patient have a stroke diagnosis?: No <ALEJANDRA Farris - Last Filed: 05/27/21 12:10> VTE Prior VTE?: No <ALEJANDRA Farris - Last Filed: 05/27/21 12:10> VTE Risk Level:: Medical - moderate - high <ALEJANDRA Farris - Last Filed: 05/27/21 12:10> VTE Device Contraindication: N/A - Device Ordered <ALEJANDRA Farris - Last Filed: 05/27/21 12:10> VTE Drug Contraindication: N/A - Med Ordered <ALEJANDRA Farris - Last Filed: 05/27/21 12:10>
--- NOTE | 2021-05-27 14:06 | PM.HEMONCCN ---
Subjective - Subjective Chief complaint: Cosult for: DVT, R I.J. Patient: new to practice Consult date: 05/27/21 Requesting Physician: J Carlos. Primary Care Provider: Peng Mendenhall MD Medical Summary: DIAGNOSIS: R IJ CLOT. HPI - Consult Narrative Reason for consult: Consult for: R I.J CLOT. Narrative: Carolina Atkins is a pleasant 75 year old lady who was admitted on 05/21: With Increased shortness of breath Patient was recently, in the hospital with known longstanding insulin-dependent diabetes mellitus and stage 5 renal failure now dialysis dependent, with a PermCath on the right side extending into the right superior to the superior vena cava. She had presented with a sense of palpitations. She has been followed by Cardiology for paroxysmal atrial fibrillation. Presented with a moderately elevated heart rate despite metoprolol and Cardizem. She had marked increase in work of breathing with diaphragmatic effort accessory muscle us, had wheezing and considerable anasarca, with increased bilateral pleural effusions. A thoracic chest x-ray. The patient was deemed relatively under dialyzed and uremic. A bedside echocardiogram demonstrated a 150 cc posterior pericardial effusion but no tamponade. Fully expanding in diastole of with her right ventricle, marked mild concentric left ventricular hypertrophy but preserved systolic reserve no primary valve disease. She needed urgent dialysis. She has a h/o basilic vein thrombus (diagnosed 05/13). This was being treated with Eliquis. It was on hold for thoracentesis. initially started on heparin bridge, but difficulty getting PTT labs so heparin drip d/cied, yesterday afternoon. Repeat right upper extremity DVT study negative for basilic vein clot, but showing new clot adjacent to right IJ catheter. ROS: Feels rather fatigued. No fever. denies wt. loss. Review of Systems - Constitutional Reports system reviewed and no additional complaints, except as documented, Reports weakness, Denies weight gain - Eyes Reports system reviewed and no additional complaints, except as documented, Denies blurry vision - ENT Reports system reviewed and no additional complaints, except as documented - Cardiovascular Reports system reviewed and no additional complaints, except as documented, Reports irregular heart rhythm, Reports shortness of breath, Denies chest pain at rest - Respiratory Reports no additional respiratory complaints, Reports chest congestion - Gastrointestinal Reports system reviewed and no additional complaints, except as documented, Denies abdominal pain, Denies change in stools, Denies diarrhea - Genitourinary Reports no additional female genitourinary complaints, Denies abnormal vaginal bleeding - Musculoskeletal Reports system reviewed and no additional complaints, except as documented, Denies back pain - Integumentary/Breasts Skin/Breast: Reports no additional skin complaints - Neurologic Reports system reviewed and no additional complaints, except as documented - Psychiatric Reports system reviewed and no additional complaints, except as documented, Reports anxiety - Endocrine Reports no additional endocrine complaints, Denies excessive sweating - Hematologic/Lymphatic Reports system reviewed and no additional complaints, except as documented, Denies easy bleeding - Allergic/Immunologic Reports system reviewed and no additional complaints, except as documented, Denies GI upset with certain foods Oncology Screenings - ECOG Performance Status ECOG Performance Status: 1 [facility] Medical History: Medical History (Last Updated 05/22/21 @ 11:51 by Lyla Dennis MD) Acute pericardial effusion Anemia Anemia Arthritis Atrial fibrillation Benign essential hypertension CAD (coronary artery disease) Chronic kidney disease, stage V ESRD (end stage renal disease) GERD (gastroesophageal reflux disease) HLD (hyperlipidemia) Hypothyroidism Iron deficiency Nephrotic range proteinuria Obese Osteoarthritis PAF (paroxysmal atrial fibrillation) Paroxysmal atrial fibrillation Pernicious anemia Pure hypercholesterolemia Renal failure Toe amputee Type 2 diabetes mellitus Functional capacity: uses cane/walker Patient : No Surgical History: Surgical History (Last Reviewed 05/21/21 @ 16:31 by Blanche Hills NP) Hx of appendectomy Social History: Social History (Last Reviewed 05/21/21 @ 16:31 by Blanche Hills NP) Living Situation History: Household Members: None Household Members Other:: self, son lives close by Housing: House Do you presently have visiting nurse or other home services: No Alcohol History: Alcohol intake: never Alcohol History Details: Alcohol intake frequency: does not drink Tobacco History: Patient Tobacco Use Status: Never used Tobacco Tobacco use type: Cigarette e-Cigarette/Vaping Use: Never Used Second Hand Smoke Exposure: No Occupation Assessmet: service: No Current occupational status: retired Home Medications and Allergies Current Medications: Current Medications Acetaminophen (Acetaminophen 325 Mg Tablet) 325 mg PO Q8H PRN PRN Reason: Pain, Mild (Pain Scale 1-3) Last Admin: 05/25/21 12:59 Dose: 325 mg Documented by: Albuterol/Ipratropium (Albuterol/Iprat 2.5/0.5mg 3 Ml Ampul.Neb) 3 ml INHALE RQ6H PRN PRN Reason: Shortness of Breath Last Admin: 05/25/21 09:07 Dose: 3 ml Documented by: Atorvastatin Calcium (Atorvastatin Calcium 40 Mg Tablet) 40 mg PO BEDTIME [facility] Last Admin: 05/26/21 20:43 Dose: 40 mg Documented by: Dextrose (Dextrose 50 % 25 Gm/50 Ml Vial) 25 gm IVPUSH Q15M PRN; Protocol PRN Reason: per Hypoglycemia Standing Ord. Diltiazem HCl (Diltiazem Hcl Cd 120 Mg Cap.Er.Deg) 120 mg PO DAILY [facility]; Protocol Last Admin: 05/27/21 08:37 Dose: 120 mg Documented by: Ferrous Sulfate (Ferrous Sulfate 324 Mg Tablet.) 324 mg PO DAILY [facility] Last Admin: 05/27/21 08:36 Dose: 324 mg Documented by: Gabapentin (Gabapentin 100 Mg Capsule) 100 mg PO BEDTIME [facility] Last Admin: 05/26/21 20:44 Dose: 100 mg Documented by: Glucose (Glucose Gel 15 Gm Gel..Gram.) 15 gm PO Q15M PRN; Protocol PRN Reason: per Hypoglycemia Standing Ord. Heparin Sodium (Porcine) (Heparin Sodium,Porcine 5,000 Unit/Ml Vial) 3,800 unit 40 unit/kg (3800 unit) IVPUSH PROTOCOL BOLUS PRN; Protocol PRN Reason: 40 unit/kg - Heparin Protocol Heparin Sodium (Porcine) (Heparin Sodium,Porcine 5,000 Unit/Ml Vial) 7,600 unit 80 unit/kg (7600 unit) IVPUSH PROTOCOL BOLUS PRN; Protocol PRN Reason: 80 unit/kg - Heparin Protocol Hydroxyzine HCl (Hydroxyzine Hcl 25 Mg Tablet) 25 mg PO Q8H PRN PRN Reason: Anxiety Last Admin: 05/26/21 20:43 Dose: 25 mg Documented by: Heparin Sodium/Sodium Chloride () 25,000 unit in 250 mls @ 0 mls/hr IVCONT .Q0M [facility]; Protocol Insulin Human Lispro (Insulin Lispro 100 Unit/Ml 3 Ml Vial) 0 unit SUBCUT QIDACHS [facility]; Protocol Last Admin: 05/27/21 11:03 Dose: 2 unit Documented by: Levothyroxine Sodium (Levothyroxine Sodium 25 Mcg Tablet) 25 mcg PO DAILY@0600 [facility] Last Admin: 05/27/21 06:00 Dose: 25 mcg Documented by: Loratadine (Loratadine 10 Mg Tablet) 10 mg PO DAILY [facility] Last Admin: 05/27/21 08:36 Dose: 10 mg Documented by: Montelukast Sodium (Montelukast Sodium 10 Mg Tablet) 10 mg PO BEDTIME [facility] Last Admin: 05/26/21 20:43 Dose: 10 mg Documented by: Psyllium Hydrophilic Mucilloid (Psyllium Seed 3.4 Gm Powd.Pack) 3.4 gm PO DAILY [facility] Last Admin: 05/27/21 08:36 Dose: 3.4 gm Documented by: Tramadol HCl (Tramadol Hcl 50 Mg Tablet) 25 mg PO Q24H PRN PRN Reason: Pain (Scale Score 4-6) Last Admin: 05/27/21 11:14 Dose: 25 mg Documented by: Home Medications Medication Instructions Recorded Confirmed Type tramadol 50 mg tablet 25 mg PO Q24H PRN 05/02/21 05/21/21 History acetaminophen 325 mg tablet 650 mg PO Q6H PRN 05/21/21 05/21/21 History bisacodyl 10 mg rectal suppository 10 mg MS Q3D PRN 05/21/21 05/21/21 History (Dulcolax (bisacodyl)) cyanocobalamin (vitamin B-12) 1,000 mcg IM Q28D 05/21/21 05/21/21 History 1,000 mcg/mL injection kit dextrose 40 % oral gel (Glucose 10 g PO Q15M PRN 05/21/21 05/21/21 History Gel) ferrous sulfate 325 mg (65 mg 325 mg PO DAILY 05/21/21 05/21/21 History iron) tablet furosemide 20 mg tablet 20 mg PO BID@0900,1700 05/21/21 05/21/21 History glucagon HCl 1 mg solution for 1 mg SUBCUT Q20M PRN 05/21/21 05/21/21 History injection (Glucagon (HCl) Emergency Kit) insulin lispro 100 unit/mL 1 sliding scale dose SUBCUT TIDAC 05/21/21 05/21/21 History subcutaneous solution levothyroxine 25 mcg capsule 25 mcg PO DAILY@0600 05/21/21 05/21/21 History pantoprazole 20 mg tablet,delayed 20 mg PO DAILY@0600 05/21/21 05/21/21 History release sodium chloride 0.65 % nasal spray 1 spray INTRANASAL Q2H PRN 05/21/21 05/21/21 History aerosol (Saline Nasal) Allergies Allergy/AdvReac Type Severity Reaction Status Date / Time No Known Allergies Allergy Verified 04/26/21 10:46 Physical Exam Vital signs: Vital Signs Temp 97.3 F 05/27/21 10:53 Pulse 78 05/27/21 10:53 Resp 19 05/27/21 10:53 BP 136/95 H 05/27/21 10:53 Pulse Ox 95 05/27/21 10:53 Intake & Output 05/26/21 05/27/21 05/27/21 18:59 06:59 18:59 Intake Total 174.195 / 654.195 480 / 654.195 360 / 360 Output Total 0 / 200 200 / 200 300 / 300 Balance 174.195 / 454.195 280 / 454.195 60 / 60 Urine Output (Average ml/kg/hr) 0.00 0.18 0.26 Intake: Intake, Oral Amount 480 / 480 360 / 360 Intake, IV Amount 174.195 / 174.195 Heparin Sodium,Porcine/1/2NS 25 174.195 / 174.195 ,000 unit In 250 ml @ Per Protocol IVCONT .Q0M [facility] Rx#: [id number] Output: Output, Urine Amount 0 / 200 200 / 200 300 / 300 Other: Breakfast % Eaten 75% Lunch % Eaten 50% Number of Bowel Movements 1 Urine Bedside Commode Urine Color Yellow Last Bowel Movement 05/26/21 Stool Bedside Commode Stool Amount Large Scant Stool Color Brown Brown Stool Consistency Semi Formed Soft Weight 94.7 kg [place] Weight in Grams [id number] Weight 94.7 kg - Constitutional Present: mild distress - Routine HEENT Exam Head: Present: normal inspection - Routine Neck Exam Present: supple - Routine Respiratory Exam Present: decreased breath sounds - Routine Cardiovascular Exam Cardiovascular: Present: RRR, S1, S2, irregularly irregular - Routine Abdominal Exam Present: normal bowel sounds, nontender - Routine Extremities Exam Present: normal inspection, nontender. Absent: calf tenderness - Routine Skin Exam Present: intact - Routine Neurological Exam Present: alert, oriented X3 - Detailed Neurological Exam: Coma Scale Eye Opening: Spontaneous (4) Verbal Response: Oriented (5) Motor Response: Obeys commands (6) [place] Coma Scale Total: 15 - Routine Psychiatric Exam Present: depressed Hem/Onc Consult Result - Labs CBC & Chem 7: 05/28/21 05:11 05/29/21 10:42 Labs: Short CBC 05/27/21 Range/Units 07:49 WBC 10.2 (4.8-10.8) X10*3/uL Hgb 8.2 L (12.0-16.0) g/dl Hct 24.9 L (37.0-47.0) % Plt Count 268 (160-400) X10*3/uL BMP 05/27/21 07:49 Sodium 128 L Potassium 4.4 Chloride 102 Carbon Dioxide 16 L BUN 34 H Creatinine 4.54 H* Calcium 7.9 L Assessment and Plan Patient Active problem list reviewed?: Yes (1) Thrombosis of right internal jugular vein Status: Acute Assessment and plan: This is a pleasant 75 year old lady, presented with SOB. Noted to be in CHF, likely due to fluid overload. She has a h/o basilic vein thrombus (diagnosed 05/13). This was being treated with Eliquis. It was on hold for thoracentesis. initially started on heparin bridge, but difficulty getting PTT labs so heparin drip d/cied, yesterday afternoon. Repeat right upper extremity DVT study negative for basilic vein clot, but showing new clot adjacent to right IJ catheter. PLAN: To restart IV Unfractionated Heparin, to treat the new clot. Hold for 6 hours prior to thoracentesis. Can resume Eliquis post procedure. Thanks for the consult, CC: - Time Spent With Patient Time Spent with Patient (in minutes): 30
[2021-05-27 20:25] LABS: Glucose, Whole Blood 231 mg/dL (60-115)
[2021-05-27] MEDS: Montelukast Sodium 10 MG TABLET PO (20:50)
[2021-05-27] MEDS: Atorvastatin Calcium 40 MG TABLET PO (20:50)
[2021-05-27] MEDS: hydrOXYzine HCL 25 MG TABLET PO (20:50)
[2021-05-27] MEDS: Acetaminophen 325 MG TABLET PO (20:50)
[2021-05-27] MEDS: Gabapentin 100 MG CAPSULE PO (20:50)
[2021-05-28] VITALS (8 sets, daily range): BP systolic 118–159; BP diastolic 44–92; PULSE 65–116; RESP 16–20; TEMP 36–37.2; O2SAT 94–98; BMI 33.1
[2021-05-28] MEDS: Heparin Sodium,Porcine 5,000 UNIT/ML VIAL 5000 UNIT SUBCUT ×2 (02:39→18:28)
[2021-05-28] MEDS: Levothyroxine Sodium 25 MCG TABLET PO (05:35)
[2021-05-28 05:40] LABS: MANUAL DIFF FLAG NO
[2021-05-28 05:45] LABS: Basophils Percent Auto 0.4 % (0-2); Eosinophils Absolute Auto 0.8 X10*3/uL (0.0-0.4); Eosinophils Percent Auto 8.1 % (0-4); Hemoglobin 7.4 g/dl (12.0-16.0); Imm Gran Abs Auto 0.17 X10*3/uL (0.00-0.03); Imm Gran Pct Auto 1.7 % (0.0-0.4); Lymphocytes Absolute Auto 1.3 X10*3/uL (1.2-4.9); Lymphocytes Percent Auto 13.4 % (20-40); Mean Corpuscular HGB Conc 32.2 g/dl (31.0-35.0); Mean Corpuscular Hemoglobin 29.6 pg (27.0-33.0); Mean Platelet Volume 9.4 fL (9.4-12.3); Monocytes Absolute Auto 0.7 X10*3/uL (0.1-1.2); Monocytes Percent Auto 7.2 % (2-11); Neutrophils Absolute Auto 6.7 x10*3/uL (2.0-8.3); Neutrophils Percent Auto 69.2 % (45-73); Platelet Count 308 X10*3/uL (160-400); Red Cell Distribution Width 14.1 % (11.0-16.0); White Blood Count 9.7 X10*3/uL (4.8-10.8)
[2021-05-28 07:36] LABS: Glucose, Whole Blood 135 mg/dL (60-115)
[2021-05-28] MEDS: Loratadine 10 MG TABLET PO (09:10)
[2021-05-28] MEDS: Ferrous Sulfate 324 MG TABLET.DR PO (09:10)
[2021-05-28] MEDS: dilTIAZem HCL CD 120 MG CAP.ER.DEG PO (09:10)
[2021-05-28 10:22] LABS: Glucose, Whole Blood 158 mg/dL (60-115)
--- NOTE | 2021-05-28 10:44 | W.PM.DNNEP ---
Subjective Subjective Principal diagnosis: ESRD, HF This patient was seen during dialysis. Interval history: Events noted Physical Exam Vital Signs: Vital Signs: Last Vital Signs Temp 96.8 F 05/28/21 07:19 Pulse 74 05/28/21 09:10 Resp 18 05/28/21 07:19 BP 159/69 H 05/28/21 09:10 Pulse Ox 98 05/28/21 07:19 Oxygen Flow Rate 3 05/21/21 17:02 BMI result Body Mass Index 33.1 Const: General: comfortable, no acute distress, alert and awake Nutritional Appearance: well nourished HENMT: Head: Yes normocephalic and Yes atraumatic Neck: Neck: Yes supple Resp: Other: b/l expiraotory wheezing Effort & Inspection: normal respiratory effort, no respiratory distress and tachypneic Auscultation: diminished lung sounds Cardio: Rate: regular rate and tachycardic Heart sounds: S1 normal heart sound present and S2 normal heart sound present GI: Palpation (GI): Soft to palpation and nontender : Other: dao pink tinged urine Extrem: Other: no leg edema General: No edema Assessment & Plan Assessment and plan (1) ESRD (end stage renal disease): Status: Acute (2) Pleural effusion: Status: Acute (3) Hematuria: Status: Acute (4) Anemia: Status: Acute (5) Atrial fibrillation: Status: Acute Assessment and Plan: (1) ESRD (end stage renal disease): ?Status:?Acute (2) Hyponatremia: ?Status:?Acute (3) Anemia: ?Status:?Acute ?Assessment and Plan: recently started hemodialysis ESRD due to DM/HTN now on HD? mwf REC HD MWF restrict free water intake renal diet DARA per protocol will arrange for outpatient HD next week Time Spent With Patient Time: Total time spent is greater than 50% in coordination of care (as documented) at patient's floor/unit and/or counseling patient: Time with patient: 15 - 24 minutes Procedures Date of Service Date of Service: 05/28/21
--- NOTE | 2021-05-28 12:10 | HO.PM.IMPN ---
Subjective Subjective Date of Service: 05/28/21 Review of Systems Follow-up pleural effusion Breathing is better today Denied chest pain, shortness breath, nausea, vomiting, diarrhea All other systems are reviewed and are negative Physical Exam Vital Signs: Vital Signs: Last Vital Signs Temp 96.8 F 05/28/21 07:19 Pulse 74 05/28/21 09:10 Resp 18 05/28/21 07:19 BP 159/69 H 05/28/21 09:10 Pulse Ox 98 05/28/21 07:19 Oxygen Flow Rate 3 05/21/21 17:02 BMI result Body Mass Index 33.1 Appearing in no acute distress lung sounds are clear to auscultation heart regular rate rhythm, clear S1, S2 positive bowel sounds, abdomen is soft, nontender neuro patient is alert x3, no focal deficits Objective Data Active Medications Acetaminophen (Acetaminophen 325 Mg Tablet) 325 mg PO Q8H PRN PRN Reason: Pain, Mild (Pain Scale 1-3) Last Admin: 05/27/21 20:50 Dose: 325 mg Documented by: PANFILO Albuterol/Ipratropium (Albuterol/Iprat 2.5/0.5mg 3 Ml Ampul.Neb) 3 ml INHALE RQ6H PRN PRN Reason: Shortness of Breath Last Admin: 05/25/21 09:07 Dose: 3 ml Documented by: NADEEN Atorvastatin Calcium (Atorvastatin Calcium 40 Mg Tablet) 40 mg PO BEDTIME [facility] Last Admin: 05/27/21 20:50 Dose: 40 mg Documented by: PANFILO Dextrose (Dextrose 50 % 25 Gm/50 Ml Vial) 25 gm IVPUSH Q15M PRN; Protocol PRN Reason: per Hypoglycemia Standing Ord. Diltiazem HCl (Diltiazem Hcl Cd 120 Mg Cap.Er.Deg) 120 mg PO DAILY [facility]; Protocol Last Admin: 05/28/21 09:10 Dose: 120 mg Documented by: SHRADDHA Ferrous Sulfate (Ferrous Sulfate 324 Mg Tablet.Dr) 324 mg PO DAILY [facility] Last Admin: 05/28/21 09:10 Dose: 324 mg Documented by: SHRADDHA Gabapentin (Gabapentin 100 Mg Capsule) 100 mg PO BEDTIME [facility] Last Admin: 05/27/21 20:50 Dose: 100 mg Documented by: PANIFLO Glucose (Glucose Gel 15 Gm Gel..Gram.) 15 gm PO Q15M PRN; Protocol PRN Reason: per Hypoglycemia Standing Ord. Heparin Sodium (Porcine) (Heparin Sodium,Porcine 5,000 Unit/Ml Vial) 5,000 unit SUBCUT Q8H [facility] Last Admin: 05/28/21 02:39 Dose: 5,000 unit Documented by: PANFILO Hydroxyzine HCl (Hydroxyzine Hcl 25 Mg Tablet) 25 mg PO Q8H PRN PRN Reason: Anxiety Last Admin: 05/27/21 20:50 Dose: 25 mg Documented by: PANFILO Insulin Human Lispro (Insulin Lispro 100 Unit/Ml 3 Ml Vial) 0 unit SUBCUT QIDACHS [facility]; Protocol Last Admin: 05/28/21 09:10 Dose: Not Given Documented by: SHRADDHA Non-Admin Reason: No Insulin Coverage Levothyroxine Sodium (Levothyroxine Sodium 25 Mcg Tablet) 25 mcg PO DAILY@0600 [facility] Last Admin: 05/28/21 05:35 Dose: 25 mcg Documented by: PANFILO Loratadine (Loratadine 10 Mg Tablet) 10 mg PO DAILY [facility] Last Admin: 05/28/21 09:10 Dose: 10 mg Documented by: SHRADDHA Montelukast Sodium (Montelukast Sodium 10 Mg Tablet) 10 mg PO BEDTIME [facility] Last Admin: 05/27/21 20:50 Dose: 10 mg Documented by: PANFILO Psyllium Hydrophilic Mucilloid (Psyllium Seed 3.4 Gm Powd.Pack) 3.4 gm PO DAILY [facility] Last Admin: 05/28/21 09:11 Dose: 3.4 gm Documented by: SHRADDHA Tramadol HCl (Tramadol Hcl 50 Mg Tablet) 25 mg PO Q24H PRN PRN Reason: Pain (Scale Score 4-6) Last Admin: 05/27/21 11:14 Dose: 25 mg Documented by: AYDEN Labs CBC & Chem 7: 05/28/21 05:11 05/27/21 07:49 Labs: Laboratory Results - last 24 hr 05/27/21 05/27/21 05/27/21 15:57 17:31 20:21 MCV MCH MCHC RDW Plt Count MPV Immature Gran % (Auto) Neut % (Auto) Lymph % (Auto) [place] % (Auto) Eos % (Auto) Baso % (Auto) Lymph # (Auto) [place] # (Auto) Eos # (Auto) Baso # (Auto) Abs Immat Gran (auto) Absolute Neuts (auto) Absolute Nucleated RBC Nucleated RBC % (auto) PTT (Heparin Protocol) 41.0 L POC Glucose 158 H 231 H 05/28/21 05/28/21 05:11 07:17 MCV 92.0 MCH 29.6 MCHC 32.2 RDW 14.1 Plt Count 308 MPV 9.4 Immature Gran % (Auto) 1.7 H Neut % (Auto) 69.2 Lymph % (Auto) 13.4 L [place] % (Auto) 7.2 Eos % (Auto) 8.1 H Baso % (Auto) 0.4 Lymph # (Auto) 1.3 [place] # (Auto) 0.7 Eos # (Auto) 0.8 H Baso # (Auto) 0.0 Abs Immat Gran (auto) 0.17 H Absolute Neuts (auto) 6.7 Absolute Nucleated RBC 0.000 Nucleated RBC % (auto) 0.0 PTT (Heparin Protocol) POC Glucose 135 H Assessment and Plan (1) Thrombosis of right internal jugular vein: Status: Acute (2) Anemia: Status: Acute (3) Hyponatremia: Status: Acute (4) ESRD (end stage renal disease): Status: Acute (5) Pleural effusion: Status: Acute (6) Atrial fibrillation: Status: Acute Assessment and Plan: This is a 75-year-old Mexican-speaking female with history ESRD recently started hemodialysis, DM, AFib who presented to the emergency department with respiratory distress who was admitted to the ICU on 05/21 for emergent dialysis, downgraded to the medical floor 05/22 Acute respiratory failure with hypoxia secondary to pleural effusion CT shows no evidence of pneumonia but large bilateral pleural effusions. Thoracentesis today wean oxygen as tolerated ESRD will resume regular schedule of HD MWF nephrology following atrial fibrillation HR controlled continue home diltiazem metoprolol d/c for multiple sinus pauses eliquis on hold for thoracentesis h/o basilic vein thrombus (diagnosed 05/13) eliquis on hold for thoracentesis. initially started on heparin bridge, but difficulty getting PTT labs so heparin drip d/c yesterday afternoon repeat right upper extremity DVT study negative for basilic vein clot but showing new clot adjacent to right IJ catheter hematology following and rec resuming eliquis after thoracentes Urine angeli no need to treat Hyponatremia Restrict free water renal diet nephrology following hematuria resolved H/H stable hypothyroidism continue synthroid DM SSI, POCs HLD continue statin dvt ppx -eliquis on hold attending - dr mendoza Quality Stroke Does the patient have a stroke diagnosis?: No VTE Prior VTE?: No VTE Risk Level:: Medical - moderate - high VTE Device Contraindication: N/A - Device Ordered VTE Drug Contraindication: N/A - Med Ordered
[2021-05-28 13:19] LABS: Glucose Random 182 mg/dL (60-115); Total Protein 6.5 g/dL (6.5-8.0)
[2021-05-28 13:22] LABS: Lactate Dehydrogenase 281 U/L (122-220)
[2021-05-28 13:28] LABS: INTERNATIONAL NORM RATIO 1.1 (0.9-1.1); Prothrombin Time 12.7 SEC (9.9-13.0)
[2021-05-28 13:58] LABS: Glucose, Whole Blood 159 mg/dL (60-115)
[2021-05-28] MEDS: Insulin Lispro 100 UNIT/ML 3 ML VIAL SUBCUT ×3 (14:03→20:51)
--- NOTE | 2021-05-28 15:17 | HO.RADPN ---
RADIOLOGY Narrative Narrative: Left thoracentesis using 4 fr angiocath. 700 mL dark serosanguinous slightly bloody fluid removed. CXR pending.
[2021-05-28] MEDS: Lidocaine HCl 1 % MPF 5 ML VIAL 4 ML SUBCUT (15:45)
[2021-05-28 16:32] LABS: Glucose, Whole Blood 251 mg/dL (60-115)
[2021-05-28 16:54] LABS: MN% 85.7 %; PMN% 14.3 %; RBC Pleural Fluid 0.024 X10*3/uL; WBC Pleural Fluid 0.477 X10*3/uL
[2021-05-28 18:28] LABS: Basophils Pleural Fluid 4 %; Monocytes Pleural Fluid 4 %; Neutrophils Pleural Fluid 2 %
[2021-05-28 18:29] LABS: BF Shift QC OK YES; Lymphocytes Pleural Fluid 82 %; Other Cells Plerual Fl 8 %
[2021-05-28 19:05] LABS: VBG Base Excess -4.1 mmol/L; VBG HCO3 20 mmol/L (22-26); VBG pCO2 36 mmHg; VBG pH 7.35 (7.32-7.43); VBG pO2 68 mmHg
[2021-05-28 19:05] LABS: Venous Blood Gas Refer to POC result
[2021-05-28 19:18] LABS: Lactate Dehydrogenase 254 U/L (122-220); Total Protein 5.9 g/dL (6.5-8.0)
[2021-05-28 20:10] LABS: Glucose, Whole Blood 159 mg/dL (60-115)
[2021-05-28] MEDS: Montelukast Sodium 10 MG TABLET PO (20:50)
[2021-05-28] MEDS: Gabapentin 100 MG CAPSULE PO (20:50)
[2021-05-28] MEDS: Atorvastatin Calcium 40 MG TABLET PO (20:50)
[2021-05-28] MEDS: hydrOXYzine HCL 25 MG TABLET PO (20:54)
[2021-05-29] MEDS: Heparin Sodium,Porcine 5,000 UNIT/ML VIAL 5000 UNIT SUBCUT (02:20)
[2021-05-29 03:32] VITALS: BP 146/72; PULSE 87; RESP 20; TEMP 37.1; O2SAT 94
[2021-05-29] MEDS: Levothyroxine Sodium 25 MCG TABLET PO (05:50)
[2021-05-29 06:00] VITALS: BMI 33.5
[2021-05-29 07:09] VITALS: BP 110/52; PULSE 110; RESP 19; TEMP 36.8; O2SAT 93
[2021-05-29 07:15] LABS: Glucose, Whole Blood 116 mg/dL (60-115)
[2021-05-29 07:28] LABS: LDH Pleural Fluid 122; Total Protein Pleural Fluid 2.7
[2021-05-29 08:39] VITALS: BP 110/52; PULSE 110
[2021-05-29] MEDS: Ferrous Sulfate 324 MG TABLET.DR PO (08:39)
[2021-05-29] MEDS: dilTIAZem HCL CD 120 MG CAP.ER.DEG PO (08:39)
[2021-05-29] MEDS: Apixaban 5 MG TABLET PO (08:39)
[2021-05-29] MEDS: Loratadine 10 MG TABLET PO (08:39)
--- NOTE | 2021-05-29 09:40 | PM.PNNEP ---
Subjective Subjective Date of Service: 05/29/21 Principal diagnosis: ESRD, HF Interval history: Events noted Had HD yesterday Physical Exam Vital Signs: Vital Signs: Last Vital Signs Temp 98.2 F 05/29/21 07:09 Pulse 110 H 05/29/21 08:39 Resp 19 05/29/21 07:09 BP 110/52 L 05/29/21 08:39 Pulse Ox 93 05/29/21 07:09 Oxygen Flow Rate 3 05/21/21 17:02 BMI result Body Mass Index 33.5 Const: General: comfortable, no acute distress, alert and awake Nutritional Appearance: well nourished HENMT: Head: Yes normocephalic and Yes atraumatic Neck: Neck: Yes supple Resp: Other: b/l expiraotory wheezing Effort & Inspection: normal respiratory effort, no respiratory distress and tachypneic Auscultation: diminished lung sounds Cardio: Rate: regular rate and tachycardic Heart sounds: S1 normal heart sound present and S2 normal heart sound present GI: Palpation (GI): Soft to palpation and nontender : Other: dao pink tinged urine Extrem: Other: no leg edema General: No edema Objective Data Labs CBC & Chem 7: 05/28/21 05:11 05/28/21 12:41 Labs: Laboratory Results - last 24 hr 05/27/21 05/28/21 05/28/21 15:57 12:41 12:41 PT 12.7 INR 1.1 VBG pH VBG pCO2 VBG pO2 VBG HCO3 VBG O2 Saturation VBG Base Excess POC Glucose 158 H Random Glucose Lactate Dehydrogenase 281 H Total Protein Pleural WBC Pleural RBC Pleural Neutrophils Pleural Lymphocytes Pleural Monocytes Pleural Basophils Pleural Other Cells Pleural Total Protein Pleural LDH 05/28/21 05/28/21 05/28/21 12:41 13:54 14:00 PT INR VBG pH VBG pCO2 VBG pO2 VBG HCO3 VBG O2 Saturation VBG Base Excess POC Glucose 159 H Random Glucose 182 H Lactate Dehydrogenase Total Protein 6.5 Pleural WBC Pleural RBC Pleural Neutrophils Pleural Lymphocytes Pleural Monocytes Pleural Basophils Pleural Other Cells Pleural Total Protein 2.7 Pleural LDH 122 05/28/21 05/28/21 05/28/21 14:00 16:25 18:56 PT INR VBG pH VBG pCO2 VBG pO2 VBG HCO3 VBG O2 Saturation VBG Base Excess POC Glucose 251 H Random Glucose Lactate Dehydrogenase 254 H Total Protein 5.9 L Pleural WBC 0.477 Pleural RBC 0.024 Pleural Neutrophils 2 Pleural Lymphocytes 82 Pleural Monocytes 4 Pleural Basophils 4 Pleural Other Cells 8 Pleural Total Protein Pleural LDH 05/28/21 05/28/21 05/29/21 19:00 20:04 07:11 PT INR VBG pH 7.35 VBG pCO2 36 VBG pO2 68 VBG HCO3 20 L VBG O2 Saturation 92.0 VBG Base Excess -4.1 POC Glucose 159 H 116 H Random Glucose Lactate Dehydrogenase Total Protein Pleural WBC Pleural RBC Pleural Neutrophils Pleural Lymphocytes Pleural Monocytes Pleural Basophils Pleural Other Cells Pleural Total Protein Pleural LDH Microbiology Microbiology Results: Microbiology 05/28/21 14:00 Thoracentesis Fluid Gram Stain - Final 05/28/21 14:00 Thoracentesis Fluid Routine Culture - Preliminary No growth to date. 05/28/21 14:00 Thoracentesis Fluid Anaerobic Culture - Preliminary No growth to date. 05/21/21 17:31 Blood - Venous Blood Culture - Final No growth after 5 days. 05/21/21 17:31 Blood - Venous Blood Culture - Final No growth after 5 days. 05/21/21 18:38 Urine clean catch - Urine egan top Urine Culture - Final Tiffanie glabrata Procedures Date of Service Date of Service: 05/29/21 Assessment & Plan Assessment and plan (1) ESRD (end stage renal disease): Status: Acute (2) Pleural effusion: Status: Acute (3) Hematuria: Status: Acute (4) Anemia: Status: Acute (5) Atrial fibrillation: Status: Acute Assessment and Plan: (1) ESRD (end stage renal disease): ?Status:?Acute (2) Hyponatremia: ?Status:?Acute (3) Anemia: ?Status:?Acute ?Assessment and Plan: recently started hemodialysis ESRD due to DM/HTN now on HD? mwf REC HD MWF restrict free water intake renal diet DARA per protocol - ordered will arrange for outpatient HD next week Time Spent With Patient Time: Total time spent is greater than 50% in coordination of care (as documented) at patient's floor/unit and/or counseling patient: Progress Note: Quality Stroke Does the patient have a stroke diagnosis?: No
--- NOTE | 2021-05-29 09:45 | PM.DS ---
DS: Providers Provider Date of Service: 05/29/21 <Lizbeth Fajardo NP - Last Filed: 05/29/21 11:43> Date of admission: 05/21/21 17:54 <Lizbeth Fajardo NP - Last Filed: 05/29/21 11:43> Primary care physician: Peng Mendenhall MD <Lizbeth Fajardo NP - Last Filed: 05/29/21 11:43> Consults: 05/21/21 18:04 Consult to Nephrology Stat Consulting Provider: Handy Tidwell Reason for consultation: uremia/anasarca Has provider been notified: Yes 05/27/21 09:39 Consult to Hematology / Oncology Routine Consulting Provider: Mo[place]és [place] Reason for consultation: recent basilic vein thrombus on eliquis, new small R IJ clot Has provider been notified: No <Lizbeth Fajardo NP - Last Filed: 05/29/21 11:43> Attending physician on discharge: Benjamin Cage <Lizbeth Fajardo NP - Last Filed: 05/29/21 11:43> Discharging clinician: Lizbeth Fajardo <Lizbeth Fajardo NP - Last Filed: 05/29/21 11:43> DS: Diagnosis Discharge Diagnosis (1) ESRD (end stage renal disease): Status: Acute <Lizbeth Fajardo NP - Last Filed: 05/29/21 11:43> (2) Pleural effusion: Status: Acute <Lizbeth Fajardo NP - Last Filed: 05/29/21 11:43> (3) Anemia: Status: Acute <Lizbeth Fajardo NP - Last Filed: 05/29/21 11:43> (4) Atrial fibrillation: Status: Acute <Lizbeth Fajardo NP - Last Filed: 05/29/21 11:43> (5) Basilic vein thrombosis: Status: Acute <Lizbeth Fajardo NP - Last Filed: 05/29/21 11:43> (6) Hyponatremia: Status: Acute <Lizbeth Fajardo NP - Last Filed: 05/29/21 11:43> DS: Summary Hospital Course Hospital Course: HP as per admitting provider Patient was just here in the hospital with known longstanding insulin-dependent diabetes mellitus and stage 5 renal failure now dialysis dependent with a PermCath on the right side extending into the right superior to the superior vena cava presented with a sense of palpitations and she has been followed by Cardiology for paroxysmal atrial fibrillation but presents with a moderately elevated heart rate despite metoprolol and Cardizem marked increase in work of breathing with diaphragmatic effort accessory muscle use we had wheezing and considerable at anasarca with increased bilateral pleural effusions and a +thoracic chest x-ray so clearly the patient is relatively under dialyzed uremic and my bedside echocardiogram demonstrated a 150 cc posterior pericardial effusion but no tamponade fully expanding in diastole of with her right ventricle and has marked mild concentric left ventricular hypertrophy but preserved systolic reserve no primary valve disease. Bottom line is she needs to be dialyzed and she needs to be admitted the stat for dialysis tonight . Acute respiratory failure with hypoxia secondary to pleural effusion. Status post thoracentesis 700 mL serosanguineous fluid removed, diagnostic specimens sent. Respiratory status improved, not requiring supplemental oxygen. ESRD. Regular hemodialysis schedule. atrial fibrillation . Heart rate controlled during admission, her diltiazem was continued. She did have some sinus pauses and her metoprolol was stopped. Her Eliquis was stopped due to thoracentesis, at one point she was started on a heparin drip however this was subsequently stopped for the thoracentesis. Her Eliquis has been resumed. History of basilic vein thrombus (diagnosed 05/13). She was seen and examined by Hematology with recommendation to restart Eliquis after thoracentesis which was done today. Hyponatremia . secondary to excess fluid intake.Free water is restricted . Check BMP in 2 days Anemia. Secondary to renal disease. No active bleeding. <Lizbeth Fajardo NP - Last Filed: 05/29/21 11:43> Time Spent with Patient Time attestation: Total time spent providing and/or coordinating discharge services: <Lizbeth Fajardo NP - Last Filed: 05/29/21 11:43> Discharge coordination time: Greater than 30 minutes <Lizbeth Fajardo NP - Last Filed: 05/29/21 11:43> Quality: Stroke Does the patient have a stroke diagnosis?: No <Lizbeth Fajardo NP - Last Filed: 05/29/21 11:43> Physical Exam Vital Signs: Vital Signs: Last Vital Signs Temp 98.2 F 05/29/21 07:09 Pulse 110 H 05/29/21 08:39 Resp 19 05/29/21 07:09 BP 110/52 L 05/29/21 08:39 Pulse Ox 93 05/29/21 07:09 Oxygen Flow Rate 3 05/21/21 17:02 BMI result Body Mass Index 33.5 <Lizbeth Fajardo NP - Last Filed: 05/29/21 11:43> Appearing in no acute distress head is normocephalic atraumatic eyes pupils are PERRLA sclera is anicteric mouth throat mucous membranes are intact and moist neck is supple no lymphadenopathy, no JVD noted lung sounds are clear to auscultation heart regular rate rhythm, clear S1, S2 positive bowel sounds, abdomen is soft, nontender neuro patient is alert x3, no focal deficits <Lizbeth Fajardo NP - Last Filed: 05/29/21 11:43> DS: Data Data Completed and Pending Completed studies during hospitalization [Text1]: Procedures Excision of Right Kidney, Percutaneous Approach, Diagnostic (04/20/21) Insertion of Infusion Device into Left Brachial Vein, Percutaneous Approach (05/02/21) Insertion of Infusion Device into Right Atrium, Percutaneous Approach (05/02/21) Insertion of Infusion Device into Superior Vena Cava, Percutaneous Approach (05/02/21) Insertion of Tunneled Vascular Access Device into Chest Subcutaneous Tissue and Fascia, Percutaneous Approach (05/02/21) Performance of Urinary Filtration, Intermittent, Less than 6 Hours Per Day (05/02/21) Removal of Infusion Device from Great Vessel, Percutaneous Approach (05/02/21) Transfusion of Nonautologous Red Blood Cells into Peripheral Vein, Percutaneous Approach (05/02/21) <Lizbeth Fajardo NP - Last Filed: 05/29/21 11:43> Pending studies at discharge: Pending at discharge 05/28/21 12:19 Cytology [PTH] Stat <Lizbeth Fajardo NP - Last Filed: 05/29/21 11:43> Labs on day of discharge: Laboratory Results - last 24 hr 05/27/21 05/28/21 05/28/21 15:57 12:41 12:41 PT 12.7 INR 1.1 VBG pH VBG pCO2 VBG pO2 VBG HCO3 VBG O2 Saturation VBG Base Excess POC Glucose 158 H Random Glucose Lactate Dehydrogenase 281 H Total Protein Pleural WBC Pleural RBC Pleural Neutrophils Pleural Lymphocytes Pleural Monocytes Pleural Basophils Pleural Other Cells Pleural Total Protein Pleural LDH 05/28/21 05/28/21 05/28/21 12:41 13:54 14:00 PT INR VBG pH VBG pCO2 VBG pO2 VBG HCO3 VBG O2 Saturation VBG Base Excess POC Glucose 159 H Random Glucose 182 H Lactate Dehydrogenase Total Protein 6.5 Pleural WBC Pleural RBC Pleural Neutrophils Pleural Lymphocytes Pleural Monocytes Pleural Basophils Pleural Other Cells Pleural Total Protein 2.7 Pleural LDH 122 05/28/21 05/28/21 05/28/21 14:00 16:25 18:56 PT INR VBG pH VBG pCO2 VBG pO2 VBG HCO3 VBG O2 Saturation VBG Base Excess POC Glucose 251 H Random Glucose Lactate Dehydrogenase 254 H Total Protein 5.9 L Pleural WBC 0.477 Pleural RBC 0.024 Pleural Neutrophils 2 Pleural Lymphocytes 82 Pleural Monocytes 4 Pleural Basophils 4 Pleural Other Cells 8 Pleural Total Protein Pleural LDH 05/28/21 05/28/21 05/29/21 19:00 20:04 07:11 PT INR VBG pH 7.35 VBG pCO2 36 VBG pO2 68 VBG HCO3 20 L VBG O2 Saturation 92.0 VBG Base Excess -4.1 POC Glucose 159 H 116 H Random Glucose Lactate Dehydrogenase Total Protein Pleural WBC Pleural RBC Pleural Neutrophils Pleural Lymphocytes Pleural Monocytes Pleural Basophils Pleural Other Cells Pleural Total Protein Pleural LDH Preliminary micro results at discharge 05/28/21 14:00 Routine Culture - Preliminary Thoracentesis Fluid No growth to date. Anaerobic Culture - Preliminary No growth to date. <Lizbeth Fajardo NP - Last Filed: 05/29/21 11:43> Discharge Plan Discharge Anticipated Discharge Date/Time: 05/29/21 09:40 <Lizbeth Fajardo NP - Last Filed: 05/29/21 11:43> Patient Disposition: Xfer SNF <Lizbeth Fajardo NP - Last Filed: 05/29/21 11:43> Discharge Diagnosis: Acute respiratory failure with hypoxia secondary to pleural effusion End-stage renal disease Atrial fibrillation Basilic vein thrombus hyponatremia <Lizbeth Fajardo NP - Last Filed: 05/29/21 11:43> Acute respiratory failure with hypoxia secondary to pleural effusion End-stage renal disease Atrial fibrillation Basilic vein thrombus hyponatremia <Benjamin Cage MD - Last Filed: 05/30/21 08:42> Referrals: [facility] [Outside] - 1 Week Peng Mendenhall MD [Primary Care Provider] - 1 Week <Lizbeth Fajardo NP - Last Filed: 05/29/21 11:43> Discharge Medications: Continued atorvastatin 40 mg tablet 40 mg PO BEDTIME Qty: 30 RF: 3 montelukast 10 mg tablet 10 mg PO BEDTIME Qty: 30 RF: 3 loratadine 10 mg tablet 10 mg PO DAILY Qty: 30 RF: 3 cholecalciferol (vitamin D3) [Vitamin D3] 25 mcg (1,000 unit) capsule 25 mcg PO DAILY Qty: 30 RF: 3 Metamucil Fiber Singles 3.4 gram Powder In Packet 3.4 g PO DAILY Qty: 30 RF: 0 tramadol 50 mg tablet 25 mg PO Q24H PRN (Reason: Pain (Scale Score 4-6)) RF: 0 diltiazem HCl [Cardizem CD] 120 mg Capsule,Extended Release 24hr 120 mg PO DAILY 30 Days Qty: 30 RF: 0 gabapentin 100 mg Capsule 100 mg PO BEDTIME 30 Days Qty: 30 RF: 0 Eliquis 5 mg Tablet 5 mg PO BID 30 Days Qty: 60 RF: 0 metoprolol tartrate 25 mg tablet 25 mg PO BID Qty: 30 RF: 3 acetaminophen 325 mg Tablet 650 mg PO Q6H PRN (Reason: GENERAL DISCOMFORT) RF: 0 ferrous sulfate 325 mg (65 mg iron) Tablet 325 mg PO DAILY RF: 0 insulin lispro 100 unit/mL Solution 1 sliding scale dose SUBCUT TIDAC RF: 0 sodium chloride [Saline Nasal] 0.65 % Aerosol,[place] 1 spray INTRANASAL Q2H PRN (Reason: Congestion) RF: 0 cyanocobalamin (vitamin B-12) 1,000 mcg/mL Kit 1,000 mcg IM Q28D RF: 0 pantoprazole 20 mg tablet,delayed release (DR/EC) 20 mg PO DAILY@0600 RF: 0 furosemide 20 mg tablet 20 mg PO BID@0900,1700 RF: 0 levothyroxine 25 mcg capsule 25 mcg PO DAILY@0600 RF: 0 dextrose [Glucose Gel] 40 % Gel 10 g PO Q15M PRN (Reason: BS <60) RF: 0 bisacodyl [Dulcolax (bisacodyl)] 10 mg Suppository 10 mg CA Q3D PRN (Reason: Constipation) RF: 0 Glucagon (HCl) Emergency Kit 1 mg Recon Soln 1 mg SUBCUT Q20M PRN (Reason: bs<60 /unresponsive) RF: 0 (DME) pen needle, diabetic [BD Sandra 2nd Gen Pen Needle] 32 gauge x 5/32 needle See Rx Instructions .Route Qty: 50 RF: 0 (DME) blood-glucose meter [FreeStyle Lite Meter] Kit See Rx Instructions .Route Qty: 1 RF: 0 (DME) FreeStyle Lite Strips Strip See Rx Instructions .ROUTE .MEDSUPPLY Qty: 100 RF: 0 (DME) lancets [FreeStyle Lancets] 28 gauge misc See Rx Instructions .ROUTE .MEDSUPPLY Qty: 100 RF: 0 (DME) FreeStyle Lite Strips Strip See Rx Instructions .ROUTE .MEDSUPPLY Qty: 100 RF: 12 (DME) blood-glucose meter [FreeStyle Lite Meter] Kit See Rx Instructions .Route Qty: 1 RF: 0 <Lizbeth Fajardo NP - Last Filed: 05/29/21 11:43> Discharge Orders: Discharge Order (Routine); Ordered 05/29/21 Ordered By: Lizbeth Fajardo <Lizbeth Fajardo NP - Last Filed: 05/29/21 11:43> Diet: advance to usual diet and other <Lizbeth Fajardo NP - Last Filed: 05/29/21 11:43> advance to usual diet and other <Benjamin Cage MD - Last Filed: 05/30/21 08:42> Activity on Discharge: As tolerated <Lizbeth Fajardo NP - Last Filed: 05/29/21 11:43> As tolerated <Benjamin Cage MD - Last Filed: 05/30/21 08:42> Stand Alone Forms: Patient Portal Discharge page <Lizbeth Fajardo NP - Last Filed: 05/29/21 11:43> Other Ambulatory Orders: Basic Metabolic Panel (Routine) Timeframe: 2 Days Facility: [facility] - Location: Laboratory Ordered By: Lizbeth Fajardo <Lizbeth Fajardo NP - Last Filed: 05/29/21 11:43> Care Plan Goals: continue taking medications as prescribed <Lizbeth Fajardo NP - Last Filed: 05/29/21 11:43> Health Concerns: Acute respiratory failure with hypoxia secondary to pleural effusion End-stage renal disease Atrial fibrillation Basilic vein thrombus Hyponatremia <Lizbeth Fajardo NP - Last Filed: 05/29/21 11:43> Plan of Treatment: Follow up with the primary care provider as needed Continue usual dialysis days Follow a 1.5L fluid restriction Check BMP in 2 days <Lizbeth Fajardo NP - Last Filed: 05/29/21 11:43> Assessment: see discharge summary Attending Attestation: I have personally seen and examined the patient independently (on the date of service as documented by NPP), reviewed the NPP history, exam and?MDM and agree with the assessment and plan as?written <Lizbeth Fajardo NP - Last Filed: 05/29/21 11:43> Discharge Date/Time: 05/29/21 14:39 <Lizbeth Fajardo NP - Last Filed: 05/29/21 11:43>
[2021-05-29 11:17] VITALS: BP 144/83; PULSE 108; PULSE 122; RESP 19; TEMP 36.6; O2SAT 97
[2021-05-29 11:33] LABS: Glucose, Whole Blood 221 mg/dL (60-115)
[2021-05-29 11:33] LABS: Anion Gap 14 (12-20); Blood Urea Nitrogen 28 mg/dL (9-16); Calcium 7.9 mg/dL (8.4-10.2); Carbon Dioxide 19 mmol/L (22-29); Chloride 100 mmol/L (96-108); Creatinine Clr Calc Pharmacy 13.9; Estimated Glomerular Filt Rate 11; Glucose Random 224 mg/dL (60-115); Potassium 3.9 mmol/L (3.3-5.1); Sodium 129 mmol/L (135-145)
[2021-05-29] MEDS: Insulin Lispro 100 UNIT/ML 3 ML VIAL SUBCUT (11:59)
--- NOTE | 2021-05-29 12:02 | MHC.CM.PN ---
Patient has been medically cleared for dc to SNF/STR today. Patient will dc to [facility] today at 2 PM, via [facility].CM met with Patient and her Daughter in Law at bedside and addressed second IMM with them, providing them with the original and placing a copy on the chart.Patient and family are aware of and in agreement with the dc plan.
[2021-05-29 12:58] LABS: COVID-19 Test Negative (Negative); IDNOW Serial# 9DD0AD1C
== END 2021-05-29 14:39 | disposition skilled nursing facility (03) | DRG 682 ==
LOC: HO.ED 17:39 → HO.EDOVER 18:00 → HO.ICU 19:28 → HO.IMC 05-22 13:23
PROVIDERS: Emergency Medicine; Nurse Practitioner Family; Physician Assistant; Physician Assistant Medical; Radiology Diagnostic Radiology; Admitting Provider Internal Medicine Cardiovascular Disease; Emergency Provider Emergency Medicine; PCP Family Medicine; Visit Provider Nurse Practitioner Acute Care
PROC: 0W9B3ZZ Drainage of Left Pleural Cavity, Percutaneous Approach (ICD-10-PCS; principal; 2021-05-28 13:00)
DX: I12.0 Hypertensive chronic kidney disease with stage 5 chronic kidney disease or end stage renal disease (principal); J96.01 Acute respiratory failure with hypoxia; N18.5 Chronic kidney disease, stage 5; I31.3 Pericardial effusion (noninflammatory); N17.9 Acute kidney failure, unspecified; E87.1 Hypo-osmolality and hyponatremia; T82.868A Thrombosis due to vascular prosthetic devices, implants and grafts, initial encounter; I82.C11 Acute embolism and thrombosis of right internal jugular vein; E11.22 Type 2 diabetes mellitus with diabetic chronic kidney disease; Z99.2 Dependence on renal dialysis; I25.10 Atherosclerotic heart disease of native coronary artery without angina pectoris; K21.9 Gastro-esophageal reflux disease without esophagitis; E03.9 Hypothyroidism, unspecified; R31.9 Hematuria, unspecified; E66.9 Obesity, unspecified; I48.91 Unspecified atrial fibrillation; E78.5 Hyperlipidemia, unspecified; Z68.33 Body mass index [BMI] 33.0-33.9, adult; D63.1 Anemia in chronic kidney disease; Z86.718 Personal history of other venous thrombosis and embolism; Z20.822 Contact with and (suspected) exposure to COVID-19; Z79.4 Long term (current) use of insulin; Z79.890 Hormone replacement therapy; Z79.891 Long term (current) use of opiate analgesic; Z79.899 Other long term (current) drug therapy
CPT/HCPCS: 0241U; 32557; 36415; 71045; 71250; 80048; 80076; 81001; 82803; 82947; 83605; 83615; 83690; 83735; 83880; 84100; 84155; 84157; 84443; 84484; 85025; 85027; 85610; 85730; 87040; 87071; 87073; 87086; 87088; 87116; 87205; 87635; 88112; 88305; 89051; 90999; 93005; 93971; 94640; 96365; 96375; 99285; 99291; J0885; J1940

== ENCOUNTER 2021-05-28 00:17 | Outpatient (REF) | payer MEDICARE, MEDICAID, SELFPAY | END 2021-05-28 00:18 | disposition home or self-care (01) | LOC: HO.MMNH1L 00:17 | PROVIDERS: Visit Provider Family Medicine | DX: Z13.89 Encounter for screening for other disorder (principal) ==

== ENCOUNTER 2021-06-08 18:22 | Emergency (ER) | payer MEDICARE, MEDICAID, SELFPAY ==
[2021-06-08 18:34] VITALS: BP 138/98; PULSE 84; O2SAT 97
--- NOTE | 2021-06-08 19:17 | ED.GENADULT ---
HPI - General Adult General Chief complaint: General Medical Stated complaint: BLEEDING FROM DIALYSIS PORT Time Seen by Provider: 06/08/21 19:16 Source: patient Mode of arrival: EMS Limitations: language barrier History of Present Illness HPI narrative: patients dialysis catheter came out today. The catheter came out 1.5 hours ago, she is due for dialysis on Friday. Onset (ago): hour(s) Severity: severe Relieving factors: none Associated symptoms: denies other symptoms Related Data Home Medications Medication Instructions Recorded Confirmed tramadol 50 mg tablet 25 mg PO Q24H PRN 05/02/21 05/21/21 acetaminophen 325 mg tablet 650 mg PO Q6H PRN 05/21/21 05/21/21 bisacodyl 10 mg rectal suppository 10 mg VT Q3D PRN 05/21/21 05/21/21 (Dulcolax (bisacodyl)) cyanocobalamin (vitamin B-12) 1,000 mcg IM Q28D 05/21/21 05/21/21 1,000 mcg/mL injection kit dextrose 40 % oral gel (Glucose 10 g PO Q15M PRN 05/21/21 05/21/21 Gel) ferrous sulfate 325 mg (65 mg 325 mg PO DAILY 05/21/21 05/21/21 iron) tablet furosemide 20 mg tablet 20 mg PO BID@0900,1700 05/21/21 05/21/21 glucagon HCl 1 mg solution for 1 mg SUBCUT Q20M PRN 05/21/21 05/21/21 injection (Glucagon (HCl) Emergency Kit) insulin lispro 100 unit/mL 1 sliding scale dose SUBCUT TIDAC 05/21/21 05/21/21 subcutaneous solution levothyroxine 25 mcg capsule 25 mcg PO DAILY@0600 05/21/21 05/21/21 pantoprazole 20 mg tablet,delayed 20 mg PO DAILY@0600 05/21/21 05/21/21 release sodium chloride 0.65 % nasal spray 1 spray INTRANASAL Q2H PRN 05/21/21 05/21/21 aerosol (Saline Nasal) Previous Rx's Medication Instructions Recorded pen needle, diabetic 32 gauge x #50 ea 04/12/2132 (BD Sandra 2nd Gen Pen Needle) blood sugar diagnostic (FreeStyle #100 ea 04/13/21 Lite Strips) blood-glucose meter (FreeStyle #1 ea 04/13/21 Lite Meter) lancets 28 gauge (FreeStyle #100 ea 04/13/21 Lancets) psyllium husk (aspartame) 3.4 gram 3.4 g PO DAILY #30 ea 04/17/21 oral powder packet (Metamucil Fiber Singles) blood sugar diagnostic (FreeStyle #100 ea 04/26/21 Lite Strips) blood-glucose meter (FreeStyle #1 ea 04/26/21 Lite Meter) atorvastatin 40 mg tablet 40 mg PO BEDTIME #30 tab 05/05/21 cholecalciferol (vitamin D3) 25 25 mcg PO DAILY #30 cap 05/05/21 mcg (1,000 unit) capsule (Vitamin D3) loratadine 10 mg tablet 10 mg PO DAILY #30 tab 05/05/21 montelukast 10 mg tablet 10 mg PO BEDTIME #30 tab 05/05/21 apixaban 5 mg tablet (Eliquis) 5 mg PO BID 30 Days #60 tab 05/12/21 diltiazem HCl 120 mg 120 mg PO DAILY 30 Days #30 cap 05/12/21 capsule,extended release 24 hr (Cardizem CD) gabapentin 100 mg capsule 100 mg PO BEDTIME 30 Days #30 cap 05/12/21 metoprolol tartrate 25 mg tablet 25 mg PO BID #30 tab 05/12/21 Allergies Allergy/AdvReac Type Severity Reaction Status Date / Time No Known Allergies Allergy Verified 04/26/21 10:46 Review of Systems Constitutional: Constitutional: Reports no additional constitutional complaints Eyes: Eyes: Reports no additional eye complaints ENT: Denies dizziness Cardiovascular: Cardiovascular: Reports no additional cardiovascular complaints Respiratory: Respiratory: Reports as per HPI Gastrointestinal: Gastrointestinal: Reports no additional gastrointestinal complaints Genitourinary: Genitourinary: Reports no additional female genitourinary complaints Musculoskeletal: Musculoskeletal: Reports no additional musculoskeletal complaints Integumentary/Breasts: Skin/Breast: Denies rash Neurologic: Reports system reviewed and no additional complaints, except as documented, Denies dizziness and Denies Sensory deficit (Neuro) Psychiatric: Psychiatric: Denies anxiety PMFSH Past Medical History Medical History Acute pericardial effusion Anemia Anemia Arthritis Atrial fibrillation Benign essential hypertension CAD (coronary artery disease) Chronic kidney disease, stage V ESRD (end stage renal disease) GERD (gastroesophageal reflux disease) HLD (hyperlipidemia) Hypothyroidism Iron deficiency Nephrotic range proteinuria Obese Osteoarthritis PAF (paroxysmal atrial fibrillation) Paroxysmal atrial fibrillation Pernicious anemia Pure hypercholesterolemia Renal failure Toe amputee Type 2 diabetes mellitus Surgical History Hx of appendectomy Social History Social History Household Members: None Household Members Other:: self, son lives close by Housing: House Do you presently have visiting nurse or other home services: No Alcohol intake: never Patient Tobacco Use Status: Never used Tobacco Tobacco use type: Cigarette e-Cigarette/Vaping Use: Never Used Second Hand Smoke Exposure: No Advance Directives: No Advance Directives Information Provided: Yes service: No Current occupational status: retired Physical Exam Vital Signs: Vital Signs: Last Vital Signs Temp 97.8 F 06/08/21 20:53 Pulse 93 06/08/21 20:53 Resp 18 06/08/21 20:53 BP 115/50 L 06/08/21 20:53 Pulse Ox 96 06/08/21 20:53 BMI result Body Mass Index 28.0 Const: Other: chronically ill female Nutritional Appearance: obese Orientation/consciousness: oriented to person and patient oriented x3 Limitations: no limitations HENMT: Head: Yes normal to inspection Ears: external ears normal General nose exam: Normal external nose present Mouth: Normal oral and palatal mucosa present and oropharynx normal Throat: Yes posterior oropharynx normal Eyes: General: appearance normal, both eyes and all related structures Neck: Other: supple Neck: Yes normal visual inspection Chest: Chest palpation & inspection: normal inspection of the chest Resp: Auscultation: clear to auscultation bilaterally Cardio: Jugular venous distension: no JVD Rate: regular rate Rhythm: regular rhythm Heart sounds: S1 normal heart sound present and S2 normal heart sound present GI: Inspection: Yes normal to inspection Palpation (GI): Soft to palpation, nontender and No hepatosplenomegaly present Auscultation: normal bowel sounds : General: Yes no CVA tenderness Back/Spine/Pelvis: Back: no CVA tenderness Skin: Other: gosia cath wound covered no active bleeding Neuro: General: oriented to person and patient oriented x3 Cranial nerves: Yes CN's II-XII intact bilaterally Motor exam (neuro): 5/5 motor strength present throughout Sensory Exam: No Sensory deficit (Neuro) Extrem: General: Yes normal to inspection Psych: Appearance: grossly normal Course Reevaluation(s) Reevaluation #1: Discussed with Dr. Ramos, based on labs and the patient not fluid overloaded the patient can be discharged Time: 23:12 Medical Decision Making Lab Data Result diagrams: 06/08/21 20:50 06/08/21 20:49 Labs: Lab Results 06/08/21 06/08/21 Range/Units 20:49 20:50 WBC 17.8 H (4.8-10.8) X10*3/uL RBC 3.04 L (4.20-5.50) X10*6/uL Hgb 9.2 L (12.0-16.0) g/dl Hct 28.8 L (37.0-47.0) % MCV 94.7 (80.0-98.0) fL MCH 30.3 (27.0-33.0) pg MCHC 31.9 (31.0-35.0) g/dl RDW 16.3 H (11.0-16.0) % Plt Count 245 (160-400) X10*3/uL MPV 9.6 (9.4-12.3) fL Immature Gran % (Auto) 0.6 H (0.0-0.4) % Neut % (Auto) 82.4 H (45-73) % Lymph % (Auto) 8.9 L (20-40) % [place] % (Auto) 6.8 (2-11) % Eos % (Auto) 1.0 (0-4) % Baso % (Auto) 0.3 (0-2) % Lymph # (Auto) 1.6 (1.2-4.9) X10*3/uL [place] # (Auto) 1.2 (0.1-1.2) X10*3/uL Eos # (Auto) 0.2 (0.0-0.4) X10*3/uL Baso # (Auto) 0.1 (0.0-0.2) X10*3/uL Abs Immat Gran (auto) 0.11 H (0.00-0.03) X10*3/uL Absolute Neuts (auto) 14.6 H (2.0-8.3) x10*3/uL Absolute Nucleated RBC 0.000 (0.0-0.012) X10*3/uL Nucleated RBC % (auto) 0.0 (0.0-0.2) /100WBC Sodium 132 L (135-145) mmol/L Potassium 3.4 (3.3-5.1) mmol/L Chloride 95 L (96-108) mmol/L Carbon Dioxide 24 (22-29) mmol/L Anion Gap 16 (12-20) BUN 24 H (9-16) mg/dL Creatinine 3.49 H (0.5-1.4) mg/dL Estim Creat Clear Calc 12.1 Estimated GFR 13 Random Glucose 234 H (60-115) mg/dL Calcium 7.6 L (8.4-10.2) mg/dL Discharge Plan Discharge Clinical Impression: Chronic kidney disease, stage 4 (severe), Complication associated with dialysis catheter Patient Disposition: Home, Self-Care Additional Instructions: fluid restriction less than 1 liter, Dialysis team will be in touch to arrange gosia cath placement and dialysis next week Prescriptions: No Action atorvastatin 40 mg tablet 40 mg PO BEDTIME Qty: 30 RF: 3 montelukast 10 mg tablet 10 mg PO BEDTIME Qty: 30 RF: 3 loratadine 10 mg tablet 10 mg PO DAILY Qty: 30 RF: 3 cholecalciferol (vitamin D3) [Vitamin D3] 25 mcg (1,000 unit) capsule 25 mcg PO DAILY Qty: 30 RF: 3 Metamucil Fiber Singles 3.4 gram Powder In Packet 3.4 g PO DAILY Qty: 30 RF: 0 tramadol 50 mg tablet 25 mg PO Q24H PRN (Reason: Pain (Scale Score 4-6)) RF: 0 diltiazem HCl [Cardizem CD] 120 mg Capsule,Extended Release 24hr 120 mg PO DAILY 30 Days Qty: 30 RF: 0 gabapentin 100 mg Capsule 100 mg PO BEDTIME 30 Days Qty: 30 RF: 0 Eliquis 5 mg Tablet 5 mg PO BID 30 Days Qty: 60 RF: 0 metoprolol tartrate 25 mg tablet 25 mg PO BID Qty: 30 RF: 3 acetaminophen 325 mg Tablet 650 mg PO Q6H PRN (Reason: GENERAL DISCOMFORT) RF: 0 ferrous sulfate 325 mg (65 mg iron) Tablet 325 mg PO DAILY RF: 0 insulin lispro 100 unit/mL Solution 1 sliding scale dose SUBCUT TIDAC RF: 0 sodium chloride [Saline Nasal] 0.65 % Aerosol,[place] 1 spray INTRANASAL Q2H PRN (Reason: Congestion) RF: 0 cyanocobalamin (vitamin B-12) 1,000 mcg/mL Kit 1,000 mcg IM Q28D RF: 0 pantoprazole 20 mg tablet,delayed release (DR/EC) 20 mg PO DAILY@0600 RF: 0 furosemide 20 mg tablet 20 mg PO BID@0900,1700 RF: 0 levothyroxine 25 mcg capsule 25 mcg PO DAILY@0600 RF: 0 dextrose [Glucose Gel] 40 % Gel 10 g PO Q15M PRN (Reason: BS <60) RF: 0 bisacodyl [Dulcolax (bisacodyl)] 10 mg Suppository 10 mg VT Q3D PRN (Reason: Constipation) RF: 0 Glucagon (HCl) Emergency Kit 1 mg Recon Soln 1 mg SUBCUT Q20M PRN (Reason: bs<60 /unresponsive) RF: 0 (DME) pen needle, diabetic [BD Sandra 2nd Gen Pen Needle] 32 gauge x 5/32 needle See Rx Instructions .Route Qty: 50 RF: 0 (DME) blood-glucose meter [FreeStyle Lite Meter] Kit See Rx Instructions .Route Qty: 1 RF: 0 (DME) FreeStyle Lite Strips Strip See Rx Instructions .ROUTE .MEDSUPPLY Qty: 100 RF: 0 (DME) lancets [FreeStyle Lancets] 28 gauge misc See Rx Instructions .ROUTE .MEDSUPPLY Qty: 100 RF: 0 (DME) FreeStyle Lite Strips Strip See Rx Instructions .ROUTE .MEDSUPPLY Qty: 100 RF: 12 (DME) blood-glucose meter [FreeStyle Lite Meter] Kit See Rx Instructions .Route Qty: 1 RF: 0 Referrals: Physician,Unknown J [Primary Care Provider] - 5 days
[2021-06-08 19:19] VITALS: BP 126/52; PULSE 80; RESP 16; TEMP 37.3; O2SAT 97; BMI 28.0
[2021-06-08 20:53] VITALS: BP 115/50; PULSE 93; RESP 18; TEMP 36.6; O2SAT 96
[2021-06-08 20:53] LABS: MANUAL DIFF FLAG NO
[2021-06-08 20:54] LABS: Basophils Absolute Auto 0.1 X10*3/uL (0.0-0.2); Basophils Percent Auto 0.3 % (0-2); Eosinophils Absolute Auto 0.2 X10*3/uL (0.0-0.4); Hematocrit 28.8 % (37.0-47.0); Hemoglobin 9.2 g/dl (12.0-16.0); Imm Gran Abs Auto 0.11 X10*3/uL (0.00-0.03); Imm Gran Pct Auto 0.6 % (0.0-0.4); Lymphocytes Absolute Auto 1.6 X10*3/uL (1.2-4.9); Lymphocytes Percent Auto 8.9 % (20-40); Mean Corpuscular HGB Conc 31.9 g/dl (31.0-35.0); Mean Corpuscular Hemoglobin 30.3 pg (27.0-33.0); Mean Corpuscular Volume 94.7 fL (80.0-98.0); Mean Platelet Volume 9.6 fL (9.4-12.3); Monocytes Absolute Auto 1.2 X10*3/uL (0.1-1.2); Monocytes Percent Auto 6.8 % (2-11); Neutrophils Absolute Auto 14.6 x10*3/uL (2.0-8.3); Neutrophils Percent Auto 82.4 % (45-73); Platelet Count 245 X10*3/uL (160-400); Red Blood Count 3.04 X10*6/uL (4.20-5.50); Red Cell Distribution Width 16.3 % (11.0-16.0); White Blood Count 17.8 X10*3/uL (4.8-10.8)
[2021-06-08 21:19] LABS: Anion Gap 16 (12-20); Blood Urea Nitrogen 24 mg/dL (9-16); Calcium 7.6 mg/dL (8.4-10.2); Carbon Dioxide 24 mmol/L (22-29); Chloride 95 mmol/L (96-108); Creatinine Clr Calc Pharmacy 12.1; Estimated Glomerular Filt Rate 13; Glucose Random 234 mg/dL (60-115); Potassium 3.4 mmol/L (3.3-5.1); Sodium 132 mmol/L (135-145)
[2021-06-08 23:50] VITALS: BP 110/26; PULSE 81; RESP 16; TEMP 37; O2SAT 96
--- NOTE | 2021-06-09 00:02 | PC.NURSE ---
[facility] REFUSING TO TAKE REPORT ON PT AND REFUSING TO TAKE PT BACK TO [facility]. [facility] NURSE CALLED [facility] TO TAKE PT BACK. EMS HERE TO TRANSPORT PT BACK. PT LEFT ED IN NAD. NO IV'S PLACED.
== END 2021-06-09 00:15 | disposition home or self-care (01) ==
PROVIDERS: Emergency Provider Emergency Medicine
DX: E11.22 Type 2 diabetes mellitus with diabetic chronic kidney disease (principal); N18.4 Chronic kidney disease, stage 4 (severe); Z79.4 Long term (current) use of insulin; Z79.899 Other long term (current) drug therapy
CPT/HCPCS: 36415; 80048; 85025; 99283

== ENCOUNTER 2021-06-11 01:28 | Outpatient (REF) | payer MEDICARE, MEDICAID, SELFPAY | END 2021-06-11 01:29 | disposition home or self-care (01) | LOC: HO.MMNH1L 01:28 | PROVIDERS: Visit Provider Family Medicine | DX: Z13.89 Encounter for screening for other disorder (principal) ==

== ENCOUNTER 2021-07-16 01:03 | Outpatient (REF) | payer SELFPAY | END 2021-07-16 01:04 | disposition home or self-care (01) | LOC: HO.MMNH1L 01:03 | PROVIDERS: Visit Provider Family Medicine | DX: Z13.89 Encounter for screening for other disorder (principal) ==

== ENCOUNTER 2021-07-30 14:52 | Inpatient (IN) | payer MEDICARE, SELFPAY ==
--- NOTE | ~2021-07-30 | XR_ITS ---
EXAMINATION: XR CHEST CLINICAL INFORMATION: Pleural effusion COMPARISON: Chest x-ray 05/28/2021, 05/27/2021 TECHNIQUE: 2 views of the chest were obtained. FINDINGS: Right IJ catheter tip overlies the right atrium. Cardiac and mediastinal contours are unchanged. Vascular calcification of aorta. There is hazy density at the left lung base with silhouetting left diaphragm. This is likely due to pleural effusion and basilar consolidation/atelectasis. This is similar to the chest x-ray 05/27/2021 and has worsened since the chest x-ray 05/28/2021. Right lung remains normally aerated. No right-sided pleural effusion. XR/XR chest 2V IMPRESSION: Worsening dense left lung base due to left pleural effusion and basilar consolidation/atelectasis.
--- NOTE | ~2021-07-30 | CT_ITS ---
EXAMINATION: CT CHEST WITHOUT CONTRAST CLINICAL INFORMATION: Pleural effusion COMPARISON: Previous chest CT May 2021 and chest x-rays, most recent from yesterday. TECHNIQUE: Multidetector volumetric CT imaging of the chest was done. Axial MIP volume rendering provided. Sagittal and coronal reformatted images were obtained. This CT examination was performed using dose optimization techniques as appropriate, variously including the following: *Automated exposure control *Adjustment of mA and/or kV according to patient size (this includes techniques or standardized protocols for targeted exams where dose is matched to indication/reason for exam; i.e. extremities or head) *Use of iterative reconstruction technique DLP: 299 mGy-cm FINDINGS: LUNGS: There is compressive atelectasis of the left lower lobe adjacent to the effusion. The lungs are otherwise clear. MEDIASTINUM: There is a right jugular dialysis catheter with tip projecting over the cavoatrial junction. The heart is enlarged. There is coronary artery and aortic valve calcification. There is no pericardial effusion. There are no enlarged hilar or mediastinal lymph nodes. PLEURA: There is a moderate left pleural effusion. There is a small right pleural effusion. AXILLA: There is shotty bilateral axillary lymphadenopathy. No chest wall mass is seen. UPPER ABDOMEN: Unremarkable. OSSEOUS STRUCTURES: There are degenerative changes of the spine. CT/CT chest wo con IMPRESSION: Moderate left and small right pleural effusions. Compressive atelectasis of the left lower lobe secondary to the effusion. Enlarged heart. Fleischner guidelines were followed.
[2021-07-30 15:01] VITALS: BP 179/83; PULSE 89; RESP 16; TEMP 36.7; O2SAT 98
[2021-07-30 15:17] VITALS: BP 151/76; BP 195/74; PULSE 89; PULSE 91; RESP 18; O2SAT 100; O2SAT 98; BMI 38.6
--- NOTE | 2021-07-30 15:26 | ECG_ITS ---
Test Reason : SOB Blood Pressure : / mmHG Vent. Rate : 084 BPM Atrial Rate : 084 BPM P-R Int : 182 ms QRS Dur : 066 ms QT Int : 388 ms P-R-T Axes : 012 036 014 degrees QTc Int : 458 ms Normal sinus rhythm Normal ECG When compared with ECG of 21-MAY-2021 16:48, Sinus rhythm has replaced Atrial fibrillation Vent. rate has decreased BY 54 BPM Non-specific change in ST segment in Lateral leads Nonspecific T wave abnormality, improved in Inferior leads Inverted T waves have replaced nonspecific T wave abnormality in Anterior leads Nonspecific T wave abnormality no longer evident in Lateral leads Referred By: Nadeem Jackson Electronically Signed By:Semaj Hayes
--- NOTE | 2021-07-30 15:27 | ED_ITS ---
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 Patient has a history of end-stage renal disease but has not gone to dialysis in 2 weeks. She states she stopped going because it was 05:00 dialysis and she was having difficulty obtaining transportation. She denies chest pain Positive cough without phlegm. No fevers or chills. No sick contacts Positive pedal edema bilaterally which is worse than 2 weeks ago She states she does make urine. About 5 or 6 times daily and more at night. This started after she began dialysis in the past. She was admitted last month with dyspnea and found to have a large pleural effusion. She improved after dialysis and thoracentesis. She states she does not feel as bad as her last admission. At the time she also had a pericardial effusion but it did not need to be drained She states she would accept dialysis As long as it was at a different time were transportation could be more easily arranged Related Data Home Medications Medication Instructions Recorded Confirmed tramadol 50 mg tablet 25 mg PO Q24H PRN 05/02/21 05/21/21 acetaminophen 325 mg tablet 650 mg PO Q6H PRN 05/21/21 05/21/21 bisacodyl 10 mg rectal suppository 10 mg CO Q3D PRN 05/21/21 05/21/21 (Dulcolax (bisacodyl)) cyanocobalamin (vitamin B-12) 1,000 mcg IM Q28D 05/21/21 05/21/21 1,000 mcg/mL injection kit dextrose 40 % oral gel (Glucose 10 g PO Q15M PRN 05/21/21 05/21/21 Gel) ferrous sulfate 325 mg (65 mg 325 mg PO DAILY 05/21/21 05/21/21 iron) tablet furosemide 20 mg tablet 20 mg PO BID@0900,1700 05/21/21 05/21/21 sodium chloride 0.65 % nasal spray 1 spray INTRANASAL Q2H PRN 05/21/21 05/21/21 aerosol (Saline Nasal) Previous Rx's Medication Instructions Recorded blood sugar diagnostic (FreeStyle #100 ea 04/13/21 Lite Strips) blood-glucose meter (FreeStyle #1 ea 04/13/21 Lite Meter) lancets 28 gauge (FreeStyle #100 ea 04/13/21 Lancets) psyllium husk (aspartame) 3.4 gram 3.4 g PO DAILY #30 ea 04/17/21 oral powder packet (Metamucil Fiber Singles) blood-glucose meter (FreeStyle #1 ea 04/26/21 Lite Meter) cholecalciferol (vitamin D3) 25 25 mcg PO DAILY #30 cap 05/05/21 mcg (1,000 unit) capsule (Vitamin D3) loratadine 10 mg tablet 10 mg PO DAILY #30 tab 05/05/21 montelukast 10 mg tablet 10 mg PO BEDTIME #30 tab 05/05/21 metoprolol tartrate 25 mg tablet 25 mg PO BID #30 tab 05/12/21 apixaban 5 mg tablet (Eliquis) 5 mg PO BID 30 Days #60 tab 07/19/21 atorvastatin 40 mg tablet 40 mg PO BEDTIME #30 tab 07/19/21 blood sugar diagnostic (FreeStyle #100 ea 07/19/21 Lite Strips) diltiazem HCl 120 mg 120 mg PO DAILY 30 Days #30 cap 07/19/21 capsule,extended release 24 hr (Cardizem CD) gabapentin 100 mg capsule 100 mg PO BEDTIME 30 Days #30 cap 07/19/21 glucagon HCl 1 mg solution for 1 mg SUBCUT Q20M PRN #1 ea 07/19/21 injection (Glucagon (HCl) Emergency Kit) insulin lispro 100 unit/mL 1 sliding scale dose SUBCUT TIDAC 07/19/21 subcutaneous solution #10 ml levothyroxine 25 mcg capsule 25 mcg PO DAILY@0600 #30 cap 07/19/21 pantoprazole 20 mg tablet,delayed 20 mg PO DAILY@0600 #30 tab 07/19/21 release pen needle, diabetic 32 gauge x #50 ea 07/19/21 (BD Sandra 2nd Gen Pen Needle) Allergies Allergy/AdvReac Type Severity Reaction Status Date / Time No Known Allergies Allergy Verified 04/26/21 10:46 Review of Systems Constitutional: Comments: No fevers or chills Cardiovascular: Comments: No chest pain or palpitations Respiratory: Comments: Positive cough and dyspnea. No significant sputum Gastrointestinal: Comments: No nausea vomiting or diarrhea Genitourinary: Comments: No dysuria Musculoskeletal: Comments: Bilateral pedal edema Integumentary/Breasts: Comments: No rash Neurologic: Comments: No focal weakness PMFSH Past Medical History Medical History Acute pericardial effusion Anemia Anemia Arthritis Atrial fibrillation Benign essential hypertension CAD (coronary artery disease) Chronic kidney disease, stage V ESRD (end stage renal disease) GERD (gastroesophageal reflux disease) HLD (hyperlipidemia) Hypothyroidism Iron deficiency Nephrotic range proteinuria Obese Osteoarthritis PAF (paroxysmal atrial fibrillation) Paroxysmal atrial fibrillation Pernicious anemia Pure hypercholesterolemia Renal failure Toe amputee Type 2 diabetes mellitus Surgical History Hx of appendectomy Social History Social History Household Members: None Household Members Other:: self, son lives close by Housing: House Do you presently have visiting nurse or other home services: No Alcohol intake: never Patient Tobacco Use Status: Never used Tobacco Tobacco use type: Cigarette e-Cigarette/Vaping Use: Never Used Second Hand Smoke Exposure: No Use of substances other than those prescribed or required for medical reasons: No Advance Directives: No Advance Directives Information Provided: No service: No Current occupational status: retired Physical Exam Vital Signs: Vital Signs: Last Vital Signs Temp 98.1 F 07/30/21 15:01 Pulse 85 07/30/21 18:11 Resp 18 07/30/21 18:11 BP 179/86 H 07/30/21 18:11 Pulse Ox 98 07/30/21 18:11 BMI result Body Mass Index 38.6 Const: Other: Alert and oriented in no acute distress Neck: Other: No obvious JVD Resp: Other: Diminished bilaterally. Bibasilar rales. No significant dyspnea Cardio: Other: Regular rate and rhythm without murmurs rubs or gallops GI: Other: Soft nontender nondistended Skin: Other: Warm and dry without rash Neuro: Other: Nonfocal neuro exam Extrem: Other: Bilateral pedal edema, pitting, 2 to 3+ Course Course Course Narrative: Dyspnea Pulmonary edema Congestive heart failure Pneumonia Bronchitis Asthma End-stage renal disease, noncompliant with dialysis Review of old records shows patient has never been hyperkalemic. We will repeat workup from prior visit. Her vitals are stable at this time however She will likely require dialysis but at this point subacutely 17:41 Chest x-ray shows left-sided effusion and possible infiltrate Case discussed with Dr. Tigre Henry. He will arrange for outpatient dialysis hopefully at a more acceptable time for the patient with transportation issues. In the meantime will have patient ambulate without oxygen saturation. Will treat with antibiotics 19:04. Patient ambulated here in the emergency department. She maintained her oxygen saturation above 92%, but became very dyspneic with a respiratory rate of appr oximately 34 breaths per minute. Given this, will hospitalize for further treatment including inpatient dialysis. Medical Decision Making Lab Data Result diagrams: 07/30/21 16:17 07/30/21 16:17 Labs: Lab Results 07/30/21 07/30/21 07/30/21 Range/Units 16:17 16:17 16:17 WBC 13.3 H (4.8-10.8) X10*3/uL RBC 3.27 L (4.20-5.50) X10*6/uL Hgb 9.4 L (12.0-16.0) g/dl Hct 30.8 L (37.0-47.0) % MCV 94.2 (80.0-98.0) fL MCH 28.7 (27.0-33.0) pg MCHC 30.5 L (31.0-35.0) g/dl RDW 17.4 H (11.0-16.0) % Plt Count 268 (160-400) X10*3/uL MPV 9.6 (9.4-12.3) fL Immature Gran % (Auto) 0.6 H (0.0-0.4) % Neut % (Auto) 83.5 H (45-73) % Lymph % (Auto) 7.1 L (20-40) % [place] % (Auto) 4.7 (2-11) % Eos % (Auto) 3.8 (0-4) % Baso % (Auto) 0.3 (0-2) % Lymph # (Auto) 1.0 L (1.2-4.9) X10*3/uL [place] # (Auto) 0.6 (0.1-1.2) X10*3/uL Eos # (Auto) 0.5 H (0.0-0.4) X10*3/uL Baso # (Auto) 0.0 (0.0-0.2) X10*3/uL Abs Immat Gran (auto) 0.08 H (0.00-0.03) X10*3/uL Absolute Neuts (auto) 11.1 H (2.0-8.3) x10*3/uL Absolute Nucleated RBC 0.000 (0.0-0.012) X10*3/uL Nucleated RBC % (auto) 0.0 (0.0-0.2) /100WBC Sodium 140 (135-145) mmol/L Potassium 4.4 D (3.3-5.1) mmol/L Chloride 108 (96-108) mmol/L Carbon Dioxide 19 L (22-29) mmol/L Anion Gap 17 (12-20) BUN 64 H D (9-16) mg/dL Creatinine 4.74 H* (0.5-1.4) mg/dL Estim Creat Clear Calc 10.5 Estimated GFR 9 Random Glucose 145 H (60-115) mg/dL Lactic Acid 0.5 (0.5-2.0) mmol/L Calcium 6.8 L D (8.4-10.2) mg/dL Total Bilirubin 0.6 (0.0-1.0) mg/dL AST 16 (5-31) U/L ALT 9 (0-31) U/L Alkaline Phosphatase 118 H D (39-117) U/L Troponin I High Sens (<3.5-17.0) ng/L B-Natriuretic Peptide (<100) pg/mL Total Protein 6.4 L (6.5-8.0) g/dL Albumin 3.3 L (3.5-5.0) g/dL COVID-19 ([place]) (Negative) COVID-19 Clin Com 07/30/21 07/30/21 Range/Units 16:17 16:17 WBC (4.8-10.8) X10*3/uL RBC (4.20-5.50) X10*6/uL Hgb (12.0-16.0) g/dl Hct (37.0-47.0) % MCV (80.0-98.0) fL MCH (27.0-33.0) pg MCHC (31.0-35.0) g/dl RDW (11.0-16.0) % Plt Count (160-400) X10*3/uL MPV (9.4-12.3) fL Immature Gran % (Auto) (0.0-0.4) % Neut % (Auto) (45-73) % Lymph % (Auto) (20-40) % [place] % (Auto) (2-11) % Eos % (Auto) (0-4) % Baso % (Auto) (0-2) % Lymph # (Auto) (1.2-4.9) X10*3/uL [place] # (Auto) (0.1-1.2) X10*3/uL Eos # (Auto) (0.0-0.4) X10*3/uL Baso # (Auto) (0.0-0.2) X10*3/uL Abs Immat Gran (auto) (0.00-0.03) X10*3/uL Absolute Neuts (auto) (2.0-8.3) x10*3/uL Absolute Nucleated RBC (0.0-0.012) X10*3/uL Nucleated RBC % (auto) (0.0-0.2) /100WBC Sodium (135-145) mmol/L Potassium (3.3-5.1) mmol/L Chloride (96-108) mmol/L Carbon Dioxide (22-29) mmol/L Anion Gap (12-20) BUN (9-16) mg/dL Creatinine (0.5-1.4) mg/dL Estim Creat Clear Calc Estimated GFR Random Glucose (60-115) mg/dL Lactic Acid (0.5-2.0) mmol/L Calcium (8.4-10.2) mg/dL Total Bilirubin (0.0-1.0) mg/dL AST (5-31) U/L ALT (0-31) U/L Alkaline Phosphatase (39-117) U/L Troponin I High Sens 49.2 H (<3.5-17.0) ng/L B-Natriuretic Peptide 313 H (<100) pg/mL Total Protein (6.5-8.0) g/dL Albumin (3.5-5.0) g/dL COVID-19 ([place]) Negative (Negative) COVID-19 Clin Com See Note Discharge Plan Discharge Patient Disposition: Admitted As Inpatient Prescriptions: No Action montelukast 10 mg tablet 10 mg PO BEDTIME Qty: 30 3RF loratadine 10 mg tablet 10 mg PO DAILY Qty: 30 3RF cholecalciferol (vitamin D3) [Vitamin D3] 25 mcg (1,000 unit) capsule 25 mcg PO DAILY Qty: 30 3RF Eliquis 5 mg tablet 5 mg PO BID 30 Days Qty: 60 0RF atorvastatin 40 mg tablet 40 mg PO BEDTIME Qty: 30 3RF (DME) FreeStyle Lite Strips Strip See Rx Instructions .ROUTE .MEDSUPPLY Qty: 100 12RF Rx Instructions: As directed once a day diltiazem HCl [Cardizem CD] 120 mg capsule,extended release 24hr 120 mg PO DAILY 30 Days Qty: 30 0RF Protocol: Hold for SBP/HR < HOLD for SBP < : 90 HOLD for HR < : 60 gabapentin 100 mg capsule 100 mg PO BEDTIME 30 Days Qty: 30 0RF Glucagon (HCl) Emergency Kit 1 mg recon soln 1 mg SUBCUT Q20M PRN (Reason: bs<60 /unresponsive) Qty: 1 0RF insulin lispro 100 unit/mL solution 1 sliding scale dose SUBCUT TIDAC Qty: 10 0RF Protocol: Insulin Correction Scale Less than or equal to 110 ---- Give (units): 0 111 to 150 Give (units): 0 151 to 200 Give (units): 2 201 to 250 Give (units): 4 251 to 300 Give (units): 6 301 to 350 Give (units): 8 Greater than 350 Give (units): 10 Call MD if Blood Glucose > : 350 levothyroxine 25 mcg capsule 25 mcg PO DAILY@0600 Qty: 30 0RF pantoprazole 20 mg tablet,delayed release (DR/EC) 20 mg PO DAILY@0600 Qty: 30 0RF (DME) pen needle, diabetic [BD Sandra 2nd Gen Pen Needle] 32 gauge x 5/32 needle See Rx Instructions .Route Qty: 50 0RF Rx Instructions: As directed Metamucil Fiber Singles 3.4 gram Powder In Packet 3.4 g PO DAILY Qty: 30 0RF tramadol 50 mg tablet 25 mg PO Q24H PRN (Reason: Pain (Scale Score 4-6)) 0RF metoprolol tartrate 25 mg tablet 25 mg PO BID Qty: 30 3RF acetaminophen 325 mg Tablet 650 mg PO Q6H PRN (Reason: GENERAL DISCOMFORT) 0RF ferrous sulfate 325 mg (65 mg iron) Tablet 325 mg PO DAILY 0RF sodium chloride [Saline Nasal] 0.65 % Aerosol,[place] 1 spray INTRANASAL Q2H PRN (Reason: Congestion) 0RF cyanocobalamin (vitamin B-12) 1,000 mcg/mL Kit 1,000 mcg IM Q28D 0RF furosemide 20 mg tablet 20 mg PO BID@0900,1700 0RF dextrose [Glucose Gel] 40 % Gel 10 g PO Q15M PRN (Reason: BS <60) 0RF bisacodyl [Dulcolax (bisacodyl)] 10 mg Suppository 10 mg CO Q3D PRN (Reason: Constipation) 0RF (DME) blood-glucose meter [FreeStyle Lite Meter] Kit See Rx Instructions .Route Qty: 1 0RF Rx Instructions: As directed (DME) FreeStyle Lite Strips Strip See Rx Instructions .ROUTE .MEDSUPPLY Qty: 100 0RF Rx Instructions: As directed (DME) lancets [FreeStyle Lancets] 28 gauge misc See Rx Instructions .ROUTE .MEDSUPPLY Qty: 100 0RF Rx Instructions: As directed (DME) blood-glucose meter [FreeStyle Lite Meter] Kit See Rx Instructions .Route Qty: 1 0RF Rx Instructions: As directed 3 times a day
[2021-07-30 16:23] LABS: MANUAL DIFF FLAG NO
[2021-07-30 16:36] LABS: Lactic Acid 0.5 mmol/L (0.5-2.0)
[2021-07-30 16:37] LABS: Basophils Percent Auto 0.3 % (0-2); Eosinophils Absolute Auto 0.5 X10*3/uL (0.0-0.4); Eosinophils Percent Auto 3.8 % (0-4); Hematocrit 30.8 % (37.0-47.0); Hemoglobin 9.4 g/dl (12.0-16.0); Imm Gran Abs Auto 0.08 X10*3/uL (0.00-0.03); Imm Gran Pct Auto 0.6 % (0.0-0.4); Lymphocytes Percent Auto 7.1 % (20-40); Mean Corpuscular HGB Conc 30.5 g/dl (31.0-35.0); Mean Corpuscular Hemoglobin 28.7 pg (27.0-33.0); Mean Corpuscular Volume 94.2 fL (80.0-98.0); Mean Platelet Volume 9.6 fL (9.4-12.3); Monocytes Absolute Auto 0.6 X10*3/uL (0.1-1.2); Monocytes Percent Auto 4.7 % (2-11); Neutrophils Absolute Auto 11.1 x10*3/uL (2.0-8.3); Neutrophils Percent Auto 83.5 % (45-73); Platelet Count 268 X10*3/uL (160-400); Red Blood Count 3.27 X10*6/uL (4.20-5.50); Red Cell Distribution Width 17.4 % (11.0-16.0); White Blood Count 13.3 X10*3/uL (4.8-10.8)
[2021-07-30 16:40] LABS: COVID-19 Test Negative (Negative)
[2021-07-30 16:47] LABS: B Type Natriuretic Peptide 313 pg/mL (<100); Troponin-I High Sensitivity 49.2 ng/L (<3.5-17.0)
[2021-07-30 17:00] LABS: Alanine Aminotransferase 9 U/L (0-31); Albumin Level 3.3 g/dL (3.5-5.0); Alkaline Phosphatase 118 U/L (39-117); Anion Gap 17 (12-20); Aspartate Amino Transferase 16 U/L (5-31); Bilirubin Total 0.6 mg/dL (0.0-1.0); Blood Urea Nitrogen 64 mg/dL (9-16); Calcium 6.8 mg/dL (8.4-10.2); Carbon Dioxide 19 mmol/L (22-29); Chloride 108 mmol/L (96-108); Creatinine Clr Calc Pharmacy 10.5; Estimated Glomerular Filt Rate 9; Glucose Random 145 mg/dL (60-115); Potassium 4.4 mmol/L (3.3-5.1); Sodium 140 mmol/L (135-145); Total Protein 6.4 g/dL (6.5-8.0)
[2021-07-30 18:11] VITALS: BP 179/86; PULSE 85; RESP 18; O2SAT 98
[2021-07-30] MEDS: Azithromycin 500 MG TABLET PO (18:12)
--- NOTE | 2021-07-30 18:13 | PC.NURSE ---
pt alert and oriented, skin appropriate for ethnicity, pt reports slight sob, ls clear, ns on the monitor, vs stable, noticeable peding edema +1, pt denies pain plan to do ambulatory oxygen levels and if maintain plan to go home
[2021-07-30 19:24] VITALS: BP 165/76; PULSE 88; RESP 18; TEMP 36.9; O2SAT 98
[2021-07-30 19:35] LABS: INTERNATIONAL NORM RATIO 1.8 (0.9-1.1)
[2021-07-30 19:49] LABS: Troponin-I High Sensitivity 50.6 ng/L (<3.5-17.0)
--- NOTE | 2021-07-30 20:02 | PHA.MEDREC ---
MED REC CMPLETE, NO ISSUES Pharmacy Consult ? Medication Reconciliation Pharmacy has completed the medication reconciliation.
--- NOTE | 2021-07-30 20:32 | P.HPHOSP_ITS ---
History of Present Illness Date of Service: 07/30/21 Chief Complaint: SOB 75-year-old female past medical history o f ESRD on ditalysis TueTHUSat, history of anemia, AFib, CAD, GERD, HLD, hypothyroidism PA of, and diabetes who presents to the hospital with complaints of shortness of breath as well as leg swelling. Patient reports that she has missed dialysis for the past 2 weeks due to scheduling problem, she started developing shortness of breath as well as leg swelling for the past 1-2 days. She reports no chest pain, she has a mild cough with sputum production, denies any fever or chills. She denies any change in vision, no headache, no abdominal pain nausea or vomiting, no diarrhea constipation, she continues to produce urine about 5 times a day and denies any urinary symptoms.Patient reports that her son also noticed some drainage from her dialysis Port-A-Cath and reports that there is some stabbing pain at the site. On arrival to the ED patient's vitals are significant for BP of 179/83 o therwise unremarkable. Labs are significant for WBC count of 10.7, hemoglobin of 9.2 which is around her baseline, hematocrit of 30, INR of 1.8, creatinine of 4.74, troponin 49 that increased to 50. BNP of 300, Chest x-ray showed worsening dense left lung base due to left pleural effusion and basilar consolidation Review of Systems Review of Systems: Yes all other systems are reviewed and are negative [facility] Medical History Acute pericardial effusion Anemia Anemia Arthritis Atrial fibrillation Benign essential hypertension CAD (coronary artery disease) Chronic kidney disease, stage V ESRD (end stage renal disease) GERD (gastroesophageal reflux disease) HLD (hyperlipidemia) Hypothyroidism Iron deficiency Nephrotic range proteinuria Obese Osteoarthritis PAF (paroxysmal atrial fibrillation) Paroxysmal atrial fibrillation Pernicious anemia Pure hypercholesterolemia Renal failure Toe amputee Type 2 diabetes mellitus Surgical History Hx of appendectomy Social History Household Members: None Household Members Other:: self, son lives close by Housing: House Do you presently have visiting nurse or other home services: No Alcohol intake: never Patient Tobacco Use Status: Never used Tobacco Tobacco use type: Cigarette e-Cigarette/Vaping Use: Never Used Second Hand Smoke Exposure: No Use of substances other than those prescribed or required for medical reasons: No Advance Directives: No Advance Directives Information Provided: No service: No Current occupational status: retired Meds Allergies Allergy/AdvReac Type Severity Reaction Status Date / Time No Known Allergies Allergy Verified 04/26/21 10:46 Active Medications: Current Medications Acetaminophen (Acetaminophen 325 Mg Tablet) 650 mg PO Q6H PRN PRN Reason: Pain, Mild (Pain Scale 1-3) Apixaban (Apixaban 5 Mg Tablet) 5 mg PO BID MARKIE Aspirin (Aspirin Enteric Coated 81 Mg Tablet.Dr) 81 mg PO DAILY MARKIE Atorvastatin Calcium (Atorvastatin Calcium 40 Mg Tablet) 40 mg PO BEDTIME MARKIE Azithromycin (Azithromycin 500 Mg Tablet) 500 mg PO Q24H MARKIE Cyanocobalamin (Cyanocobalamin (Vitamin B-12) 1,000 Mcg Tablet) 1,000 mcg PO DAILY MARKIE Dextrose (Dextrose 50 % 25 Gm/50 Ml Syringe) 25 gm IVPUSH Q15M PRN; Protocol PRN Reason: per Hypoglycemia Standing Ord. Diltiazem HCl (Diltiazem Hcl Cd 120 Mg Cap.Er.Deg) 120 mg PO DAILY MARKIE; Protocol Docusate Sodium (Docusate Sodium 100 Mg Capsule) 100 mg PO DAILY PRN PRN Reason: Constipation Gabapentin (Gabapentin 100 Mg Capsule) 100 mg PO BEDTIME MARKIE Glucose (Glucose Gel 15 Gm Gel..Gram.) 15 gm PO Q15M PRN; Protocol PRN Reason: per Hypoglycemia Standing Ord. Ceftriaxone Sodium 1 gm/ (Sodium Chloride) 50 mls @ 100 mls/hr IV Q24H MARKIE Insulin Glargine (Insulin Glargine,Hum.Rec.Anlog 100 Unit/Ml 10 Ml Vial) 8 unit SUBCUT BEDTIME MARKIE Insulin Human Lispro (Insulin Lispro 100 Unit/Ml 3 Ml Vial) 0 unit SUBCUT QID ACHS MARKIE; Protocol Levothyroxine Sodium (Levothyroxine Sodium 25 Mcg Tablet) 25 mcg PO DAILY@0600 MARKIE Loratadine (Loratadine 10 Mg Tablet) 10 mg PO DAILY MARKIE Montelukast Sodium (Montelukast Sodium 10 Mg Tablet) 10 mg PO BEDTIME MARKIE Non-Formulary Medication (Melatonin) 6 mg PO BEDTIME PRN PRN Reason: Sleep Non-Formulary Medication (Pantoprazole) 20 mg PO DAILY@0600 [facility] Nystatin (Nystatin Powder 15 Gm Bottle) 1 appl TOPICAL BID [facility]; Protocol Ondansetron HCl (Ondansetron Hcl 4 Mg/2 Ml Vial) 4 mg IVPUSH Q8H PRN PRN Reason: Nausea and Vomiting Pharmacy Consult (Consult Rx Perform Med Rec) 1 each MISCELLANE ONCE PRN PRN Reason: Consult order Psyllium Hydrophilic Mucilloid (Psyllium Seed 3.4 Gm Powd.Pack) 3.4 gm PO DAILY [facility] Sodium Chloride (0.9 % Sodium Chloride Flush 3 Ml Syringe) 3 ml IVFLUSH QSHIFT [facility] Sodium Chloride (Sodium Chloride 0.65 % Nasal 44 Ml Sprbtl) 1 spray NOSTRIL-B Q2H PRN PRN Reason: Congestion Vitamin D (Cholecalciferol (Vitamin D3) 25 Mcg Tablet) 25 mcg PO DAILY [facility] Home Medications Medication Instructions Recorded Confirmed Last Taken Type acetaminophen 325 mg tablet 650 mg PO Q6H PRN 05/21/21 07/30/21 Unknown History ferrous sulfate 325 mg (65 mg 325 mg PO DAILY 05/21/21 07/30/21 07/30/21 History iron) tablet sodium chloride 0.65 % nasal spray 1 spray INTRANASAL Q2H PRN 05/21/21 07/30/21 Unknown History aerosol (Saline Nasal) aspirin 81 mg tablet,delayed 81 mg PO DAILY 07/30/21 07/30/21 07/30/21 History release cyanocobalamin (vitamin B-12) 1,000 mcg PO DAILY 07/30/21 07/30/21 Unknown History 1,000 mcg tablet insulin glargine 100 unit/mL 8 unit SUBCUT BEDTIME 07/30/21 07/30/21 Unknown History subcutaneous solution (Lantus U-100 Insulin) melatonin 5 mg tablet 5 mg PO BEDTIME PRN 07/30/21 07/30/21 Unknown History nystatin 100,000 unit/gram topical 1 appl TOPICAL BID 07/30/21 07/30/21 Unknown History powder Physical Exam Vital Signs and Narrative: Vital Signs: Last Vital Signs Temp 98.5 F 07/30/21 19:24 Pulse 88 07/30/21 19:24 Resp 18 07/30/21 19:24 BP 165/76 H 07/30/21 19:24 Pulse Ox 98 07/30/21 19:24 BMI result Body Mass Index 38.6 Const: General: cooperative and no acute distress Orientation /consciousness: patient oriented x3 Eyes: General: appearance normal, both eyes and all related structures Pupils: Equal, round and reactive pupils present Resp: Effort & Inspection: normal respiratory effort Auscultation: clear to auscultation bilaterally Cardio: Rate: regular rate Rhythm: regular rhythm GI: Palpation (GI): Soft to palpation Auscultation: normal bowel sounds Skin: General skin exam: no rashes or lesions noted Neuro: General: patient oriented x3 Cranial nerves: Yes Equal, round and reactive pupils present Cognition (Neuro): normal cognition Extrem: Other: 2 plus pitting edema General: Yes normal to inspection Results Labs CBC and Chem 7: 07/31/21 05:51 07/30/21 16:17 Labs: Laboratory Results - last 24 hr 07/30/21 07/30/21 07/30/21 16:17 16:17 16:17 MCV 94.2 MCH 28.7 MCHC 30.5 L RDW 17.4 H Plt Count 268 MPV 9.6 Immature Gran % (Auto) 0.6 H Neut % (Auto) 83.5 H Lymph % (Auto) 7.1 L [place] % (Auto) 4.7 Eos % (Auto) 3.8 Baso % (Auto) 0.3 Lymph # (Auto) 1.0 L [place] # (Auto) 0.6 Eos # (Auto) 0.5 H Baso # (Auto) 0.0 Abs Immat Gran (auto) 0.08 H Absolute Neuts (auto) 11.1 H Absolute Nucleated RBC 0.000 Nucleated RBC % (auto) 0.0 PT INR Anion Gap 17 Estim Creat Clear Calc 10.5 Estimated GFR 9 Random Glucose 145 H Lactic Acid 0.5 Calcium 6.8 L D Total Bilirubin 0.6 AST 16 ALT 9 Alkaline Phosphatase 118 H D B-Natriuretic Peptide Total Protein 6.4 L Albumin 3.3 L COVID-19 (GLENNA) COVID-19 Clin Com 07/30/21 07/30/21 07/30/21 16:17 16:17 19:21 MCV MCH MCHC RDW Plt Count MPV Immature Gran % (Auto) Neut % (Auto) Lymph % (Auto) [place] % (Auto) Eos % (Auto) Baso % (Auto) Lymph # (Auto) [place] # (Auto) Eos # (Auto) Baso # (Auto) Abs Immat Gran (auto) Absolute Neuts (auto) Absolute Nucleated RBC Nucleated RBC % (auto) PT 21.0 H INR 1.8 H Anion Gap Estim Creat Clear Calc Estimated GFR Random Glucose Lactic Acid Calcium Total Bilirubin AST ALT Alkaline Phosphatase B-Natriuretic Peptide 313 H Total Protein Albumin COVID-19 (GLENNA) Negative COVID-19 Clin Com See Note Imaging Radiologist's Impressions: Impressions Chest X-Ray 07/30/21 16:32 IMPRESSION: Worsening dense left lung base due to left pleural effusion and basilar consolidation/atelectasis. Assessment and Plan (1) Pneumonia: Status: Acute (2) End stage kidney disease: Status: Acute (3) Pleural effusion: Status: Acute Plan # ESRD on dilaysis - missed dialysis - continues to produces urine - no hyperkalemia - received lasix - dialysis scheduled for AM - nephrology consulted # PNA - evidence of PNA on chest xray - has leukocytosis - will treat with iv abx - follow cultures # DM - continue lantus - LDSSI - diabetic diet # Prox A fib - continue eliquis and diltiazem # GERD- continue PPI DVT ppx: eliquis Quality Stroke Does the patient have a stroke diagnosis?: No VTE Prior VTE?: No VTE Risk Level:: Medical - moderate - high VTE Device Contraindication: Treatment Not Indicated VTE Drug Contraindication: N/A - Med Ordered
[2021-07-30 23:30] LABS: Glucose, Whole Blood 82 mg/dL (60-115)
[2021-07-30] MEDS: Apixaban 5 MG TABLET PO (23:41)
[2021-07-30] MEDS: Montelukast Sodium 10 MG TABLET PO (23:41)
[2021-07-30] MEDS: Gabapentin 100 MG CAPSULE PO (23:41)
[2021-07-30] MEDS: Atorvastatin Calcium 40 MG TABLET PO (23:41)
[2021-07-30] MEDS: cefTRIAXone sodium 1 GM in 0.9 % Sodium Chloride 50 ML IV (23:45)
[2021-07-31] VITALS (8 sets, daily range): BP systolic 112–190; BP diastolic 61–93; PULSE 91–146; RESP 16–20; TEMP 36.5–36.9; O2SAT 95–98
--- NOTE | 2021-07-31 | ECG_ITS ---
Test Reason : sob Blood Pressure : / mmHG Vent. Rate : 142 BPM Atrial Rate : 000 BPM P-R Int : 000 ms QRS Dur : 076 ms QT Int : 318 ms P-R-T Axes : 000 052 222 degrees QTc Int : 489 ms Atrial fibrillation with rapid ventricular response Nonspecific T wave abnormality Abnormal ECG When compared with ECG of 30-JUL-2021 15:47, Atrial fibrillation has replaced Sinus rhythm Vent. rate has increased BY 58 BPM Nonspecific T wave abnormality, worse in Inferior leads T wave inversion no longer evident in Anterior leads T wave inversion now evident in Lateral leads Referred By: Lizbeth Fajardo Electronically Signed By:Semaj Hayes
--- NOTE | 2021-07-31 | ECG_ITS ---
Test Reason : CHANGE IN HR Blood Pressure : / mmHG Vent. Rate : 085 BPM Atrial Rate : 085 BPM P-R Int : 182 ms QRS Dur : 074 ms QT Int : 386 ms P-R-T Axes : 074 055 052 degrees QTc Int : 459 ms Sinus rhythm with Premature atrial complexes Otherwise normal ECG When compared with ECG of 31-JUL-2021 14:18, Sinus rhythm has replaced Atrial fibrillation Vent. rate has decreased BY 57 BPM Non-specific change in ST segment in Lateral leads Nonspecific T wave abnormality no longer evident in Inferior leads Referred By: Lizbeth Fajardo Electronically Signed By:Semaj Hayes
[2021-07-31] MEDS: 0.9 % Sodium Chloride Flush 3 ML SYRINGE IVFLUSH (00:31)
--- NOTE | 2021-07-31 06:08 | PC.NURSE ---
This RN took over patient's care at 2300. Patient alert and oriented, Guinean speaking, denies any pain or discomfort at this time. L/s diminished, abd soft. POC 82, no insulin coverage, orange juice/snack given.
[2021-07-31 06:19] LABS: MANUAL DIFF FLAG NO
[2021-07-31 06:27] LABS: Basophils Percent Auto 0.4 % (0-2); Eosinophils Absolute Auto 0.6 X10*3/uL (0.0-0.4); Eosinophils Percent Auto 5.4 % (0-4); Hematocrit 30.1 % (37.0-47.0); Hemoglobin 9.2 g/dl (12.0-16.0); Imm Gran Abs Auto 0.06 X10*3/uL (0.00-0.03); Imm Gran Pct Auto 0.6 % (0.0-0.4); Lymphocytes Absolute Auto 1.2 X10*3/uL (1.2-4.9); Lymphocytes Percent Auto 10.8 % (20-40); Mean Corpuscular HGB Conc 30.6 g/dl (31.0-35.0); Mean Corpuscular Hemoglobin 28.4 pg (27.0-33.0); Mean Corpuscular Volume 92.9 fL (80.0-98.0); Mean Platelet Volume 9.5 fL (9.4-12.3); Monocytes Absolute Auto 0.6 X10*3/uL (0.1-1.2); Monocytes Percent Auto 5.2 % (2-11); Neutrophils Absolute Auto 8.3 x10*3/uL (2.0-8.3); Neutrophils Percent Auto 77.6 % (45-73); Platelet Count 260 X10*3/uL (160-400); Red Blood Count 3.24 X10*6/uL (4.20-5.50); Red Cell Distribution Width 17.2 % (11.0-16.0); White Blood Count 10.7 X10*3/uL (4.8-10.8)
[2021-07-31] MEDS: Omeprazole 20 MG CAPSULE.DR PO (06:33)
[2021-07-31] MEDS: Levothyroxine Sodium 25 MCG TABLET PO (06:33)
[2021-07-31 06:50] LABS: Anion Gap 17 (12-20); Blood Urea Nitrogen 65 mg/dL (9-16); Calcium 6.9 mg/dL (8.4-10.2); Carbon Dioxide 19 mmol/L (22-29); Chloride 110 mmol/L (96-108); Creatinine Clr Calc Pharmacy 10.4; Estimated Glomerular Filt Rate 9; Glucose Random 100 mg/dL (60-115); Potassium 4.2 mmol/L (3.3-5.1); Sodium 142 mmol/L (135-145)
--- NOTE | 2021-07-31 07:36 | PC.NURSE ---
Pt received from night filler: Pt AOX4 and denies any current complaints. NSR noted and lungs diminished. Pt abd soft and non-tender. B/L LE 2+ pedal edema noted. Pt denies any SOB and remains on RA. L permacath dialysis noted to anterior chest.
[2021-07-31 08:15] LABS: Glucose, Whole Blood 100 mg/dL (60-115)
[2021-07-31] MEDS: dilTIAZem HCL CD 120 MG CAP.ER.DEG PO (08:25)
[2021-07-31] MEDS: Cyanocobalamin (Vitamin B-12) 1,000 MCG TABLET 1000 MCG PO (08:25)
[2021-07-31] MEDS: Aspirin Enteric Coated 81 MG TABLET.DR PO (08:25)
[2021-07-31] MEDS: Apixaban 5 MG TABLET PO ×2 (08:25→20:54)
[2021-07-31] MEDS: Loratadine 10 MG TABLET PO (08:25)
[2021-07-31] MEDS: Cholecalciferol (Vitamin D3) 25 MCG TABLET PO (08:25)
[2021-07-31] MEDS: Nystatin Powder 15 GM BOTTLE 1 APPL TOPICAL ×2 (08:47→21:06)
--- NOTE | 2021-07-31 08:48 | PC.NURSE ---
Pt to CT(chest) and dialysis at this time.
--- NOTE | 2021-07-31 11:42 | HO.PM.IMPN ---
Subjective Subjective Date of Service: 07/31/21 Review of Systems Follow up ESRD, missed dialysis Some shortness of breath no pain Physical Exam Vital Signs: Vital Signs: Last Vital Signs Temp 97.7 F 07/31/21 08:10 Pulse 93 07/31/21 08:10 Resp 16 07/31/21 08:10 BP 190/71 H 07/31/21 08:10 Pulse Ox 96 07/31/21 08:10 BMI result Body Mass Index 38.6 Appearing in no acute distress lung sounds are clear to auscultation heart regular rate rhythm, clear S1, S2 positive bowel sounds, abdomen is soft, nontender neuro patient is alert x3, no focal deficits Objective Data Active Medications Acetaminophen (Acetaminophen 325 Mg Tablet) 650 mg PO Q6H PRN PRN Reason: Pain, Mild (Pain Scale 1-3) Apixaban (Apixaban 5 Mg Tablet) 5 mg PO BID [facility] Last Admin: 07/31/21 08:25 Dose: 5 mg Documented by: MONET Aspirin (Aspirin Enteric Coated 81 Mg Tablet.) 81 mg PO DAILY [facility] Last Admin: 07/31/21 08:25 Dose: 81 mg Documented by: MONET Atorvastatin Calcium (Atorvastatin Calcium 40 Mg Tablet) 40 mg PO BEDTIME [facility] Last Admin: 07/30/21 23:41 Dose: 40 mg Documented by: CHADWICK Azithromycin (Azithromycin 500 Mg Tablet) 500 mg PO Q24H [facility] Cyanocobalamin (Cyanocobalamin (Vitamin B-12) 1,000 Mcg Tablet) 1,000 mcg PO DAILY [facility] Last Admin: 07/31/21 08:25 Dose: 1,000 mcg Documented by: MONET Dextrose (Dextrose 50 % 25 Gm/50 Ml Syringe) 25 gm IVPUSH Q15M PRN; Protocol PRN Reason: per Hypoglycemia Standing Ord. Diltiazem HCl (Diltiazem Hcl Cd 120 Mg Cap.Er.Deg) 120 mg PO DAILY [facility]; Protocol Last Admin: 07/31/21 08:25 Dose: 120 mg Documented by: MONET Docusate Sodium (Docusate Sodium 100 Mg Capsule) 100 mg PO DAILY PRN PRN Reason: Constipation Gabapentin (Gabapentin 100 Mg Capsule) 100 mg PO BEDTIME [facility] Last Admin: 07/30/21 23:41 Dose: 100 mg Documented by: CHADWICK Glucose (Glucose Gel 15 Gm Gel..Gram.) 15 gm PO Q15M PRN; Protocol PRN Reason: per Hypoglycemia Standing Ord. Ceftriaxone Sodium 1 gm/ (Sodium Chloride) 50 mls @ 100 mls/hr IV Q24H [facility] Last Infusion: 07/31/21 00:31 Dose: 0 mls/hr Documented by: CHADWICK Insulin Glargine (Insulin Glargine,Hum.Rec.Anlog 100 Unit/Ml 10 Ml Vial) 8 unit SUBCUT BEDTIME [facility] Last Admin: 07/30/21 23:52 Dose: Not Given Documented by: CHADWICK Non-Admin Reason: No Insulin Coverage Insulin Human Lispro (Insulin Lispro 100 Unit/Ml 3 Ml Vial) 0 unit SUBCUT QIDACHS [facility]; Protocol Last Admin: 07/31/21 07:57 Dose: Not Given Documented by: MONET Non-Admin Reason: No Insulin Coverage Comments: B/S 100 Levothyroxine Sodium (Levothyroxine Sodium 25 Mcg Tablet) 25 mcg PO DAILY@0600 [facility] Last Admin: 07/31/21 06:33 Dose: 25 mcg Documented by: CHADWICK Loratadine (Loratadine 10 Mg Tablet) 10 mg PO DAILY [facility] Last Admin: 07/31/21 08:25 Dose: 10 mg Documented by: MONET Melatonin (Melatonin 3 Mg Tablet) 6 mg PO BEDTIME PRN PRN Reason: Sleep Montelukast Sodium (Montelukast Sodium 10 Mg Tablet) 10 mg PO BEDTIME [facility] Last Admin: 07/30/21 23:41 Dose: 10 mg Documented by: CHADWICK Nystatin (Nystatin Powder 15 Gm Bottle) 1 appl TOPICAL BID [facility]; Protocol Last Admin: 07/31/21 08:47 Dose: 1 appl Documented by: MONET Omeprazole (Omeprazole 20 Mg Capsule.) 20 mg PO DAILY@0630 [facility] Last Admin: 07/31/21 06:33 Dose: 20 mg Documented by: CHADWICK Ondansetron HCl (Ondansetron Hcl 4 Mg/2 Ml Vial) 4 mg IVPUSH Q8H PRN PRN Reason: Nausea and Vomiting Pharmacy Consult (Consult Rx Perform Med Rec) 1 each MISCELLANE ONCE PRN PRN Reason: Consult order Psyllium Hydrophilic Mucilloid (Psyllium Seed 3.4 Gm Powd.Pack) 3.4 gm PO DAILY [facility] Last Admin: 07/31/21 08:47 Dose: 3.4 gm Documented by: MONET Sodium Chloride (0.9 % Sodium Chloride Flush 3 Ml Syringe) 3 ml IVFLUSH QSHIFT [facility] Last Admin: 07/31/21 07:23 Dose: Not Given Documented by: MONET Non-Admin Reason: Med Not Available Sodium Chloride (Sodium Chloride 0.65 % Nasal 44 Ml Sprbtl) 1 spray NOSTRIL-B Q2H PRN PRN Reason: Congestion Vitamin D (Cholecalciferol (Vitamin D3) 25 Mcg Tablet) 25 mcg PO DAILY [facility] Last Admin: 07/31/21 08:25 Dose: 25 mcg Documented by: MONET Labs CBC & Chem 7: 07/31/21 05:51 07/31/21 05:51 Labs: Laboratory Results - last 24 hr 07/30/21 07/30/21 07/30/21 16:17 16:17 16:17 MCV 94.2 MCH 28.7 MCHC 30.5 L RDW 17.4 H Plt Count 268 MPV 9.6 Immature Gran % (Auto) 0.6 H Neut % (Auto) 83.5 H Lymph % (Auto) 7.1 L [place] % (Auto) 4.7 Eos % (Auto) 3.8 Baso % (Auto) 0.3 Lymph # (Auto) 1.0 L [place] # (Auto) 0.6 Eos # (Auto) 0.5 H Baso # (Auto) 0.0 Abs Immat Gran (auto) 0.08 H Absolute Neuts (auto) 11.1 H Absolute Nucleated RBC 0.000 Nucleated RBC % (auto) 0.0 PT INR Anion Gap 17 Estim Creat Clear Calc 10.5 Estimated GFR 9 POC Glucose Random Glucose 145 H Lactic Acid 0.5 Calcium 6.8 L D Total Bilirubin 0.6 AST 16 ALT 9 Alkaline Phosphatase 118 H D B-Natriuretic Peptide Total Protein 6.4 L Albumin 3.3 L COVID-19 (GLENNA) COVID-19 Clin Com 07/30/21 07/30/21 07/30/21 16:17 16:17 19:21 MCV MCH MCHC RDW Plt Count MPV Immature Gran % (Auto) Neut % (Auto) Lymph % (Auto) [place] % (Auto) Eos % (Auto) Baso % (Auto) Lymph # (Auto) [place] # (Auto) Eos # (Auto) Baso # (Auto) Abs Immat Gran (auto) Absolute Neuts (auto) Absolute Nucleated RBC Nucleated RBC % (auto) PT 21.0 H INR 1.8 H Anion Gap Estim Creat Clear Calc Estimated GFR POC Glucose Random Glucose Lactic Acid Calcium Total Bilirubin AST ALT Alkaline Phosphatase B-Natriuretic Peptide 313 H Total Protein Albumin COVID-19 (GLENNA) Negative COVID-19 Clin Com See Note 07/30/21 07/31/21 07/31/21 23:26 05:51 05:51 MCV 92.9 MCH 28.4 MCHC 30.6 L RDW 17.2 H Plt Count 260 MPV 9.5 Immature Gran % (Auto) 0.6 H Neut % (Auto) 77.6 H Lymph % (Auto) 10.8 L [place] % (Auto) 5.2 Eos % (Auto) 5.4 H Baso % (Auto) 0.4 Lymph # (Auto) 1.2 [place] # (Auto) 0.6 Eos # (Auto) 0.6 H Baso # (Auto) 0.0 Abs Immat Gran (auto) 0.06 H Absolute Neuts (auto) 8.3 Absolute Nucleated RBC 0.000 Nucleated RBC % (auto) 0.0 PT INR Anion Gap 17 Estim Creat Clear Calc 10.4 Estimated GFR 9 POC Glucose 82 Random Glucose 100 Lactic Acid Calcium 6.9 L Total Bilirubin AST ALT Alkaline Phosphatase B-Natriuretic Peptide Total Protein Albumin COVID-19 (GLENNA) COVID-19 Clin Com 07/31/21 07:47 MCV MCH MCHC RDW Plt Count MPV Immature Gran % (Auto) Neut % (Auto) Lymph % (Auto) [place] % (Auto) Eos % (Auto) Baso % (Auto) Lymph # (Auto) [place] # (Auto) Eos # (Auto) Baso # (Auto) Abs Immat Gran (auto) Absolute Neuts (auto) Absolute Nucleated RBC Nucleated RBC % (auto) PT INR Anion Gap Estim Creat Clear Calc Estimated GFR POC Glucose 100 Random Glucose Lactic Acid Calcium Total Bilirubin AST ALT Alkaline Phosphatase B-Natriuretic Peptide Total Protein Albumin COVID-19 (GLENNA) COVID-19 Clin Com Assessment and Plan (1) Pneumonia: Status: Acute (2) End stage kidney disease: Status: Acute Plan 75 year old women admitted with fluid overload and missed dialysis ESRD missed dialysis for 2 weeks (?)because she was unable to get to dialysis at 0500 continues to produce urine no hyperkalemia received lasix dialysis scheduled for AM nephrology consulted PNA evidence of PNA on chest xray has leukocytosis will treat with iv abx for now follow cultures Pleural effusion Will check CT to assess for pleural effusion Pulm consult DM Sliding scale, ADA diet lantus Parox A fib continue eliquis and diltiazem GERD continue PPI Attending Dr. Cage DVT ppx: eliquis Full code Quality Stroke Does the patient have a stroke diagnosis?: No VTE Prior VTE?: No VTE Risk Level:: Medical - moderate - high VTE Device Contraindication: Treatment Not Indicated VTE Drug Contraindication: N/A - Med Ordered
[2021-07-31 13:26] LABS: Glucose, Whole Blood 104 mg/dL (60-115)
--- NOTE | 2021-07-31 13:53 | PC.NURSE ---
Pt back from dialysis at this time
--- NOTE | 2021-07-31 14:14 | PC.NURSE ---
Pt back from dialysis. Vitals completed and shown HR 140-150- unsure if sinus tach or AFib. BP 112/61. No noted fever. [employer] INST[employer] Scotty made aware and orders received for repeat EKG. Cardiology made aware and pending repeat test. At this time, pt denies any CP or SOB. Pt only c/o want to move her bowels. RN will continue to monitor.
[2021-07-31] MEDS: dilTIAZem HCL 50 MG/10 ML VIAL IVPUSH ×2 (14:30→14:40)
--- NOTE | 2021-07-31 14:34 | CONS_ITS ---
DATE OF SERVICE: 07/31/2021 REASON FOR CONSULTATION: I was asked to see the patient to assist in evaluation and management of patient's dialysis needs. HISTORY OF PRESENT ILLNESS: In summary, patient is a 75-year-old ESRD patient who normally dialyzes Friday, , Friday at the [facility], but apparently she misses many of her dialysis treatments. She now presents to the hospital feeling short of breath and swelling of the legs. She denies any chest pain, fever, sweats, or chills. When asked why she misses dialysis treatment, she says because it is too early in the morning and she misses her rides. PAST MEDICAL HISTORY: Notable for diabetes; ESRD, dialyzed on Friday, , Friday at the [facility]; anemia; AFib; hypertension; coronary artery disease; GERD; hyperlipidemia; hypothyroidism; obesity; degenerative joint disease; paroxysmal atrial fibrillation are all listed. MEDICATIONS: Her medications on admission are noted in the admitting notes. Her current medications are noted in the MAR. SOCIAL HISTORY: There is mention made that she is not a smoker. No alcohol or illicit drug use. REVIEW OF SYSTEMS: As noted above. PHYSICAL EXAMINATION: VITAL SIGNS: Blood pressure 190/70, heart rate in the 70s. HEAD: Atraumatic, normocephalic. NECK: Supple. ENT: Mucous membranes moist. LUNGS: Breath sounds bilaterally. CARDIAC: Regular rate and rhythm without rub. ABDOMEN: Soft. EXTREMITIES: 1+ edema. LABORATORY DATA: Hemoglobin 9.2, hematocrit 30.1, white blood cell count 10.7, platelet count 260. Sodium 142, potassium 4.2, chloride 110, bicarb 19, BUN 65, creatinine 4.8. IMPRESSION: A 75-year-old end-stage renal disease patient, missed her dialysis treatment, now admitted with shortness of breath and swelling. 1. End-stage renal disease. We will dialyze her today and then continue her on a Friday, , Friday schedule. 2. Shortness of breath. With dialysis and hopefully fluid removal, her breathing will improve. 3. Hypertension. With dialysis and fluid removal, our hope would be that her blood pressure improves. 4. Noncompliance with the dialysis. This is a big issue and we will try and sort out what can be done. 5. Of note, patient seems to have some residual kidney function as reflected by creatinine in mid 4 range despite no dialysis for apparently over a week if not longer. I have talked to the outpatient dialysis unit. We will see about doing twice a week dialysis as we might get better compliance with her dialysis treatments. We are also trying to switch her from first shift to second shift because she says first shift is very problematic for her rides. SUGGESTIONS: At this time include dialysis today. Continue routine medications. We will see about outpatient dialysis change in shift as mentioned above. MD CONRADO Nuñez/RACHELL / [phone]
--- NOTE | 2021-07-31 14:57 | PC.NURSE ---
Repeat EKG completed- confirmed AFib RVR. INSTRUCTIONAL SERVICES LIBRARIAN Scotty made aware. Orders received for 5mg diltiazem IVPx2. HR remains unchanged. INSTRUCTIONAL SERVICES LIBRARIAN made aware and orders received and carried out for cardizem drip. Pt still denies any CP or SOB, but states she still needs to move her bowels. When offered bedpan, pt states it doesn't help, and wants to use bedside commode. Pt explained her HR is too high to get out of bed now. RN will continue to monitor.
[2021-07-31] MEDS: dilTIAZem HCL 125 MG in 0.9 % Sodium Chloride 100 ML IVCONT (15:00)
--- NOTE | 2021-07-31 15:04 | MHC.CM.PN ---
Attempted to meet with patient in regards to discharge planning. Nursing care currently being provided. Spoke with patient's son/HCP, Jason via telephone at [phone]. Patient was at [facility] for STR until 07/10. Patient was discharged home. VNA was supposed to be arranged by [facility], but per Jason was never arranged. Patient goes to HD at [facility] in [place] on , and Sat. Per [facility], patient's last HD treatment was on 07/14. Patient has transport arranged for HD. But patient did not show for approximately 2 weeks. PCP verified. Copy of HCP verified to be on file. Patient received 2 Covid vaccines. Patient tested positive for Covid while at [facility]. Anticipate patient will return home with resumption of outpatient HD when medically stable. Lizbeth WEISS aware of patient missing HD. Continue to monitor for d/c needs.
--- NOTE | 2021-07-31 16:06 | PM.CNPUL ---
History of Present Illness History of Present Illness Consult date: 07/31/21 Requesting physician: Lizbeth Fajardo Chief complaint: Fluid Overload, Missed Dialysis Narrative: 75-year-old lady with underlying ESRD on hemodialysis, AFib on Eliquis, CAD, hypothyroidism, diabetes mellitus admitted on 07/30/2021 with worsening dyspnea over several days after missing several dialysis sessions. On ER evaluation patient has had CT chest that demonstrated small right and moderate left effusion and pulmonary evaluation was requested. On my evaluation patient denies any acute dyspnea and states that she has skipped 2 weeks of her of dialysis. Review of Systems Constitutional: Constitutional: Denies daytime sleepiness, Denies excessive sweating, Reports fatigue, Denies fever(s), Reports lethargy, Reports malaise, Denies night sweats, Denies snoring and Denies weight loss Eyes: Eyes: Denies blurry vision and Denies itchy eyes ENT: Denies nasal congestion, Denies post nasal drip, Denies sinus pain, Denies sinus pressure and Denies other ( Thrush) Cardiovascular: Cardiovascular: Denies chest pain, Reports pedal edema, Denies dyspnea, Reports dyspnea on exertion, Denies orthopnea and Denies paroxysmal nocturnal dyspnea Respiratory: Respiratory: Denies cough, Denies hemoptysis, Denies excessive phlegm production, Denies dyspnea, Reports dyspnea on exertion, Denies snoring and Denies wheezing Gastrointestinal: Gastrointestinal: Denies abdominal pain and Denies heartburn Musculoskeletal: Musculoskeletal: Denies myalgias, Denies arthralgias and Denies joint swelling Integumentary/Breasts: Skin/Breast: Denies rash Neurologic: Denies memory loss and Denies seizure-like activity Psychiatric: Psychiatric: Denies abnormal sleep pattern, Denies anxiety and Denies memory loss Endocrine: Endocrine: Denies excessive sweating, Reports fatigue and Denies heat intolerance Hematologic/Lymphatic: Hematologic/Lymphatic: Denies easy bruising Allergic/Immunologic: Allergic/Immunologic: Denies itchy eyes, Denies seasonal rhinorrhea and Denies wheezing PMFSH Past Medical History Medical History Acute pericardial effusion Anemia Anemia Arthritis Atrial fibrillation Benign essential hypertension CAD (coronary artery disease) Chronic kidney disease, stage V ESRD (end stage renal disease) GERD (gastroesophageal reflux disease) HLD (hyperlipidemia) Hypothyroidism Iron deficiency Nephrotic range proteinuria Obese Osteoarthritis PAF (paroxysmal atrial fibrillation) Paroxysmal atrial fibrillation Pernicious anemia Pure hypercholesterolemia Renal failure Toe amputee Type 2 diabetes mellitus Surgical History Surgical History Hx of appendectomy Social History Social History Household Members: None Household Members Other:: self, son lives close by Housing: House Do you presently have visiting nurse or other home services: No Alcohol intake: never Patient Tobacco Use Status: Never used Tobacco Tobacco use type: Cigarette e-Cigarette/Vaping Use: Never Used Second Hand Smoke Exposure: No Use of substances other than those prescribed or required for medical reasons: No Advance Directives: No Advance Directives Information Provided: No service: No Current occupational status: retired [employer] Allergies Allergy/AdvReac Type Severity Reaction Status Date / Time No Known Allergies Allergy Verified 04/26/21 10:46 Active Medications: Current Medications Acetaminophen (Acetaminophen 325 Mg Tablet) 650 mg PO Q6H PRN PRN Reason: Pain, Mild (Pain Scale 1-3) Apixaban (Apixaban 5 Mg Tablet) 5 mg PO BID [facility] Last Admin: 07/31/21 08:25 Dose: 5 mg Documented by: Aspirin (Aspirin Enteric Coated 81 Mg Tablet.) 81 mg PO DAILY [facility] Last Admin: 07/31/21 08:25 Dose: 81 mg Documented by: Atorvastatin Calcium (Atorvastatin Calcium 40 Mg Tablet) 40 mg PO BEDTIME [facility] Last Admin: 07/30/21 23:41 Dose: 40 mg Documented by: Azithromycin (Azithromycin 500 Mg Tablet) 500 mg PO Q24H [facility] Cyanocobalamin (Cyanocobalamin (Vitamin B-12) 1,000 Mcg Tablet) 1,000 mcg PO DAILY [facility] Last Admin: 07/31/21 08:25 Dose: 1,000 mcg Documented by: Dextrose (Dextrose 50 % 25 Gm/50 Ml Syringe) 25 gm IVPUSH Q15M PRN; Protocol PRN Reason: per Hypoglycemia Standing Ord. Diltiazem HCl (Diltiazem Hcl Cd 120 Mg Cap.Er.Deg) 120 mg PO DAILY [facility]; Protocol Last Admin: 07/31/21 08:25 Dose: 120 mg Documented by: Docusate Sodium (Docusate Sodium 100 Mg Capsule) 100 mg PO DAILY PRN PRN Reason: Constipation Gabapentin (Gabapentin 100 Mg Capsule) 100 mg PO BEDTIME [facility] Last Admin: 07/30/21 23:41 Dose: 100 mg Documented by: Glucose (Glucose Gel 15 Gm Gel..Gram.) 15 gm PO Q15M PRN; Protocol PRN Reason: per Hypoglycemia Standing Ord. Ceftriaxone Sodium 1 gm/ (Sodium Chloride) 50 mls @ 100 mls/hr IV Q24H [facility] Last Infusion: 07/31/21 00:31 Dose: Infused Documented by: Diltiazem HCl 125 mg/ Sodium (Chloride) 125 mls @ 0 mls/hr IVCONT .Q0M [facility]; Protocol Last Titration: 07/31/21 15:30 Dose: 15 mg/hr, 15 mls/hr Documented by: Insulin Glargine (Insulin Glargine,Hum.Rec.Anlog 100 Unit/Ml 10 Ml Vial) 8 unit SUBCUT BEDTIME [facility] Last Admin: 07/30/21 23:52 Dose: Not Given Documented by: Insulin Human Lispro (Insulin Lispro 100 Unit/Ml 3 Ml Vial) 0 unit SUBCUT QIDACHS [facility]; Protocol Last Admin: 07/31/21 13:51 Dose: Not Given Documented by: Levothyroxine Sodium (Levothyroxine Sodium 25 Mcg Tablet) 25 mcg PO DAILY@0600 [facility] Last Admin: 07/31/21 06:33 Dose: 25 mcg Documented by: Loratadine (Loratadine 10 Mg Tablet) 10 mg PO DAILY [facility] Last Admin: 07/31/21 08:25 Dose: 10 mg Documented by: Melatonin (Melatonin 3 Mg Tablet) 6 mg PO BEDTIME PRN PRN Reason: Sleep Montelukast Sodium (Montelukast Sodium 10 Mg Tablet) 10 mg PO BEDTIME [facility] Last Admin: 07/30/21 23:41 Dose: 10 mg Documented by: Nystatin (Nystatin Powder 15 Gm Bottle) 1 appl TOPICAL BID [facility]; Protocol Last Admin: 07/31/21 08:47 Dose: 1 appl Documented by: Omeprazole (Omeprazole 20 Mg Capsule.) 20 mg PO DAILY@0630 [facility] Last Admin: 07/31/21 06:33 Dose: 20 mg Documented by: Ondansetron HCl (Ondansetron Hcl 4 Mg/2 Ml Vial) 4 mg IVPUSH Q8H PRN PRN Reason: Nausea and Vomiting Pharmacy Consult (Consult Rx Perform Med Rec) 1 each MISCELLANE ONCE PRN PRN Reason: Consult order Psyllium Hydrophilic Mucilloid (Psyllium Seed 3.4 Gm Powd.Pack) 3.4 gm PO DAILY [facility] Last Admin: 07/31/21 08:47 Dose: 3.4 gm Documented by: Sodium Chloride (0.9 % Sodium Chloride Flush 3 Ml Syringe) 3 ml IVFLUSH QSHIFT [facility] Last Admin: 07/31/21 15:13 Dose: Not Given Documented by: Sodium Chloride (Sodium Chloride 0.65 % Nasal 44 Ml Sprbtl) 1 spray NOSTRIL-B Q2H PRN PRN Reason: Congestion Vitamin D (Cholecalciferol (Vitamin D3) 25 Mcg Tablet) 25 mcg PO DAILY [facility] Last Admin: 07/31/21 08:25 Dose: 25 mcg Documented by: Home Medications Medication Instructions Recorded Confirmed Last Taken Type acetaminophen 325 mg tablet 650 mg PO Q6H PRN 05/21/21 07/30/21 Unknown History ferrous sulfate 325 mg (65 mg 325 mg PO DAILY 05/21/21 07/30/21 07/30/21 History iron) tablet sodium chloride 0.65 % nasal spray 1 spray INTRANASAL Q2H PRN 05/21/21 07/30/21 Unknown History aerosol (Saline Nasal) aspirin 81 mg tablet,delayed 81 mg PO DAILY 07/30/21 07/30/21 07/30/21 History release cyanocobalamin (vitamin B-12) 1,000 mcg PO DAILY 07/30/21 07/30/21 Unknown History 1,000 mcg tablet insulin glargine 100 unit/mL 8 unit SUBCUT BEDTIME 07/30/21 07/30/21 Unknown History subcutaneous solution (Lantus U-100 Insulin) melatonin 5 mg tablet 5 mg PO BEDTIME PRN 07/30/21 07/30/21 Unknown History nystatin 100,000 unit/gram topical 1 appl TOPICAL BID 07/30/21 07/30/21 Unknown History powder Physical Exam Vital Signs: Vital Signs: Last Vital Signs Temp 98.4 F 07/31/21 14:14 Pulse 136 H 07/31/21 15:15 Resp 18 07/31/21 15:15 BP 121/93 H 07/31/21 15:15 Pulse Ox 95 07/31/21 14:14 BMI result Body Mass Index 38.6 Const: General: no acute distress and alert Nutritional Appearance: obese Orientation/consciousness: Other orientation findings ( oriented) HENMT: Head: Yes atraumatic Mouth: no other ( thrush) Throat: No postnasal drainage Eyes: General: appearance normal, both eyes and all related structures Sclerae: sclerae normal EOM: EOMs intact bilaterally Neck: Neck: Yes supple Lymphatic: no lymphadenopathy noted Resp: Effort & Inspection: normal respiratory effort and no use of accessory muscles Auscultation: clear to auscultation bilaterally and crackles ( bibasilar) Cardio: Rate: tachycardic Rhythm: regular rhythm Heart sounds: no gallops, no murmurs and no rubs GI: Palpation (GI): Soft to palpation and Other GI palpation findings present ( nontender) Skin: General skin exam: other ( warm) Rashes: no rashes Extrem: General: No clubbing, No cyanosis and Yes edema ( 1+ bilateral lower extremity) Results Laboratory Findings CBC and BMP: 07/31/21 05:51 07/31/21 05:51 ABG, PT/INR, D-dimer: PT/INR, D-dimer PT 21.0 SEC (9.9-13.0) H 07/30/21 19:21 INR 1.8 (0.9-1.1) H 07/30/21 19:21 Abnormal lab findings: Abnormal Labs 07/30/21 07/30/21 07/30/21 16:17 16:17 16:17 WBC 13.3 H RBC 3.27 L Hgb 9.4 L Hct 30.8 L MCHC 30.5 L RDW 17.4 H Immature Gran % (Auto) 0.6 H Neut % (Auto) 83.5 H Lymph % (Auto) 7.1 L Eos % (Auto) Lymph # (Auto) 1.0 L Eos # (Auto) 0.5 H Abs Immat Gran (auto) 0.08 H Absolute Neuts (auto) 11.1 H PT INR Chloride Carbon Dioxide 19 L BUN 64 H D Creatinine 4.74 H* Random Glucose 145 H Calcium 6.8 L D Alkaline Phosphatase 118 H D Troponin I High Sens 49.2 H B-Natriuretic Peptide 313 H Total Protein 6.4 L Albumin 3.3 L 07/30/21 07/30/21 07/31/21 19:21 19:21 05:51 WBC RBC 3.24 L Hgb 9.2 L Hct 30.1 L MCHC 30.6 L RDW 17.2 H Immature Gran % (Auto) 0.6 H Neut % (Auto) 77.6 H Lymph % (Auto) 10.8 L Eos % (Auto) 5.4 H Lymph # (Auto) Eos # (Auto) 0.6 H Abs Immat Gran (auto) 0.06 H Absolute Neuts (auto) PT 21.0 H INR 1.8 H Chloride Carbon Dioxide BUN Creatinine Random Glucose Calcium Alkaline Phosphatase Troponin I High Sens 50.6 H* B-Natriuretic Peptide Total Protein Albumin 07/31/21 05:51 WBC RBC Hgb Hct MCHC RDW Immature Gran % (Auto) Neut % (Auto) Lymph % (Auto) Eos % (Auto) Lymph # (Auto) Eos # (Auto) Abs Immat Gran (auto) Absolute Neuts (auto) PT INR Chloride 110 H Carbon Dioxide 19 L BUN 65 H Creatinine 4.79 H* Random Glucose Calcium 6.9 L Alkaline Phosphatase Troponin I High Sens B-Natriuretic Peptide Total Protein Albumin Assessment and Plan (1) Recurrent pleural effusion: Status: Acute Impression: 75-year-old lady with underlying end-stage renal disease on hemodialysis, paroxysmal AFib CAD admitted with worsening dyspnea after missing several dialysis sessions and noted to have small right and moderate left pleural effusions. Of note, patient has had left-sided thoracentesis on 05/28/2021 with drainage of 700 cc of transudative serosanguineous fluid with cytology negative for malignant cells. Her current diffusion so improved in comparison to 1 months prior and are likely related to missing recent hemodialysis sessions. Recommendations: At this time would recommend against thoracentesis unless patient develops worsening dyspnea. Would suggest to proceed with regular hemodialysis sessions. Procedures Date of Service Date of Service: 07/31/21
--- NOTE | 2021-07-31 16:55 | PC.NURSE ---
S/P events in regards to HR and changes in EKG, ISELA Dominguez asked if pt should be upgraded to Telemetry. DISPLAY FABRICATOR agrees. Pending new order placement. RN will continue to monitor.
[2021-07-31 18:04] LABS: Glucose, Whole Blood 167 mg/dL (60-115)
--- NOTE | 2021-07-31 18:06 | PC.NURSE ---
Pt noted to have converted back to NSR. ISELA Fajardo made aware and new order received for repeat EKG. Pt denies any current complaints.
[2021-07-31] MEDS: Azithromycin 500 MG TABLET PO (18:45)
[2021-07-31 20:38] LABS: Glucose, Whole Blood 230 mg/dL (60-115)
[2021-07-31] MEDS: Insulin Lispro 100 UNIT/ML 3 ML VIAL SUBCUT (20:53)
[2021-07-31] MEDS: Gabapentin 100 MG CAPSULE PO (20:53)
[2021-07-31] MEDS: Insulin Glargine,Hum.rec.anlog 100 UNIT/ML 10 ML VIAL 8 UNIT SUBCUT (20:53)
[2021-07-31] MEDS: Montelukast Sodium 10 MG TABLET PO (20:54)
[2021-07-31] MEDS: cefTRIAXone sodium 1 GM in 0.9 % Sodium Chloride 50 ML IV (20:54)
--- NOTE | 2021-07-31 20:55 | PC.NURSE ---
Assumed care of pt Pt medicated per AUG Pt tolerated well NAD Will continue to monitor
[2021-07-31] MEDS: Atorvastatin Calcium 40 MG TABLET PO (20:57)
[2021-08-01 03:04] VITALS: BP 146/95; PULSE 96; RESP 17; O2SAT 96
[2021-08-01] MEDS: Omeprazole 20 MG CAPSULE.DR PO (05:45)
[2021-08-01] MEDS: Levothyroxine Sodium 25 MCG TABLET PO (05:45)
--- NOTE | 2021-08-01 06:04 | PC.NURSE ---
Pt medicated per MAR and assisted in bedside commode Pt tolerated well Pt back on stretcher on monitor Will continue to monitor
[2021-08-01 07:21] LABS: Hematocrit 31.3 % (37.0-47.0); Hemoglobin 9.7 g/dl (12.0-16.0); Mean Corpuscular Hemoglobin 28.4 pg (27.0-33.0); Mean Corpuscular Volume 91.5 fL (80.0-98.0); Mean Platelet Volume 9.5 fL (9.4-12.3); Platelet Count 225 X10*3/uL (160-400); Red Blood Count 3.42 X10*6/uL (4.20-5.50); Red Cell Distribution Width 17.1 % (11.0-16.0); White Blood Count 11.3 X10*3/uL (4.8-10.8)
[2021-08-01 07:37] LABS: Anion Gap 15 (12-20); Blood Urea Nitrogen 26 mg/dL (9-16); Calcium 7.5 mg/dL (8.4-10.2); Carbon Dioxide 21 mmol/L (22-29); Chloride 102 mmol/L (96-108); Estimated Glomerular Filt Rate 17; Glucose Random 141 mg/dL (60-115); Potassium 3.9 mmol/L (3.3-5.1); Sodium 134 mmol/L (135-145)
[2021-08-01 07:53] LABS: Glucose, Whole Blood 137 mg/dL (60-115)
[2021-08-01 08:40] VITALS: BP 167/51; PULSE 81; RESP 16; TEMP 36.7; O2SAT 97
--- NOTE | 2021-08-01 08:40 | PC.NURSE ---
Pt received from table games shift manager: Pt AOX4 and denies any current complaits. Pt remains in NSR after having converted back around 1900 yesterday, and lungs diminished. Pt abd soft and non-tender. Pt able to be transfered, with help, to bedside commode. MD Cage called and pt will be increased in her usual dose of diltizem PO.
[2021-08-01] MEDS: Loratadine 10 MG TABLET PO (08:51)
[2021-08-01] MEDS: Nystatin Powder 15 GM BOTTLE 1 APPL TOPICAL (08:51)
[2021-08-01] MEDS: Cyanocobalamin (Vitamin B-12) 1,000 MCG TABLET 1000 MCG PO (08:51)
[2021-08-01] MEDS: dilTIAZem HCL CD 180 MG CAP.ER.24H PO (08:51)
[2021-08-01] MEDS: Cholecalciferol (Vitamin D3) 25 MCG TABLET PO (08:51)
[2021-08-01] MEDS: Aspirin Enteric Coated 81 MG TABLET.DR PO (08:51)
[2021-08-01] MEDS: Apixaban 5 MG TABLET PO (08:51)
--- NOTE | 2021-08-01 10:05 | P.DS_ITS ---
DS: Providers Provider Date of Service: 08/01/21 Date of admission: 07/30/21 20:24 Primary care physician: Lonnie Khan MD Consults: 07/30/21 20:24 Consult to Nephrology Routine Consulting Provider: [facility] Reason for consultation: missed dialysis Has provider been notified: Yes 07/31/21 13:36 Consult to Pulmonology Routine Consulting Provider: Quintin Acosta Reason for consultation: recurrent pleural effusion Has provider been notified: No DS: Diagnosis Discharge Diagnosis (1) End stage kidney disease: Status: Acute (2) Pleural effusion: Status: Acute (3) Pneumonia: Status: Acute (4) PAF (paroxysmal atrial fibrillation): Status: Acute (5) Atrial fibrillation with RVR: Status: Acute DS: Summary Hospital Course Hospital Course: HPI From admission H&P: 75-year-old female past medical history o f ESRD on ditalysis TueTHUSat, history of anemia, AFib, CAD, GERD, HLD, hypothyroidism PA of, and diabetes who presents to the hospital with complaints of shortness of breath as well as leg swelling.? Patient reports that she has missed dialysis for the past 2 weeks due to scheduling problem, she started developing shortness of breath as well as leg swelling for the past 1-2 days.? She reports no chest pain, she has a mild cough with sputum production, denies any fever or chills.? She denies any change in vision, no headache, no abdominal pain nausea or vomiting, no diarrhea constip ation, she continues to produce urine about 5 times a day and denies any urinary symptoms.Patient reports that her son also noticed some drainage from her dialysis? Port-A-Cath? and reports that there is some stabbing pain at the site. On arrival to the ED patient's vitals are significant for? BP of 179/83 otherwise unremarkable.? ? Labs are significant for WBC count of 10.7, hemoglobin of 9.2 which is around her baseline, hematocrit of 30, INR of 1.8, creatinine of 4.74, troponin 49 that increased to 50.? BNP of 300, Chest x-ray showed worsening dense left lung base due to left pleural effusion and basilar consolidation Hospital Course: Patient presented with shortness of breath. Initially there was concern that her symptoms were due secondary to ESRD (2 weeks of missed dialysis) + pneumonia. She was started on IV antibiotics and underwent urgent dialysis. She was evalauted with a CT scan of the chest which showed pleural effusions b/l (Small on the R and Moderate on the L -- both improved from prior) and compressive atelectasis without evidence of pneumonia. Pulmonary was consulted and recommended continued dialysis as missed dialysis sessions were the likely cause of her effusions (She had previously undergone thorcentesis with studies showing a transudative effusion with negative cytology for malignancy). Antibiotics were subsequently discontinued. Patients hospital course was complicated by A. Fib with RVR requiring short term IV cardizem drip. This was likely secondary to fluid overloaded state. Her cardizem dose has been increased from 120 to 180mg. She is in NSR at the time of discharge. In regards to the dialysis issue -- nephrology will be working on changing her timing as this was the primary barrier to her going to the sessions (as reported by her). She currently has transportation arranged and has been informed (with the help of a Kazakh speaking procurement services manager) that she needs to go for dialysis at the scheduled time until the changes have been made. Time Spent with Patient Time attestation: Total time spent providing and/or coordinating discharge services: Discharge coordination time: Greater than 30 minutes Quality: Stroke Does the patient have a stroke diagnosis?: No Physical Exam Vital Signs: Vital Signs: Last Vital Signs Temp 98.1 F 08/01/21 08:40 Pulse 81 08/01/21 08:40 Resp 16 08/01/21 08:40 BP 167/51 H 08/01/21 08:40 Pulse Ox 97 08/01/21 08:40 BMI result Body Mass Index 38.6 Const: Other: General - no acute distress, appears comfortable Cardiovascular - regular rate and rhythm, S1-S2 Lungs - normal respiratory effort, clear to auscultation bilaterally, no wheezing Abdomen - soft, nontender, no rebound or guarding Extremities - no edema bilaterally Neuro - awake and alert, no focal deficits DS: Data Data Completed and Pending Completed studies during hospitalization [Text1]: Procedures Drainage of Left Pleural Cavity, Percutaneous Approach (05/21/21) Excision of Right Kidney, Percutaneous Approach, Diagnostic (04/20/21) Insertion of Infusion Device into Left Brachial Vein, Percutaneous Approach (05/02/21) Insertion of Infusion Device into Right Atrium, Percutaneous Approach (05/02/21) Insertion of Infusion Device into Superior Vena Cava, Percutaneous Approach (05/02/21) Insertion of Tunneled Vascular Access Device into Chest Subcutaneous Tissue and Fascia, Percutaneous Approach (05/02/21) Performance of Urinary Filtration, Intermittent, Less than 6 Hours Per Day (05/21/21) Removal of Infusion Device from Great Vessel, Percutaneous Approach (05/02/21) Transfusion of Nonautologous Red Blood Cells into Peripheral Vein, Percutaneous Approach (05/02/21) Labs on day of discharge: Laboratory Results - last 24 hr 07/31/21 07/31/21 07/31/21 13:23 17:54 20:34 WBC RBC Hgb Hct MCV MCH MCHC RDW Plt Count MPV Absolute Nucleated RBC Nucleated RBC % (auto) Sodium Potassium Chloride Carbon Dioxide Anion Gap BUN Creatinine Estim Creat Clear Calc Estimated GFR POC Glucose 104 167 H 230 H Random Glucose Calcium 08/01/21 08/01/21 08/01/21 06:47 06:47 07:44 WBC 11.3 H RBC 3.42 L Hgb 9.7 L Hct 31.3 L MCV 91.5 MCH 28.4 MCHC 31.0 RDW 17.1 H Plt Count 225 MPV 9.5 Absolute Nucleated RBC 0.000 Nucleated RBC % (auto) 0.0 Sodium 134 L Potassium 3.9 Chloride 102 Carbon Dioxide 21 L Anion Gap 15 BUN 26 H D Creatinine 2.77 H Estim Creat Clear Calc 18.0 Estimated GFR 17 POC Glucose 137 H Random Glucose 141 H Calcium 7.5 L D Discharge Plan Discharge Patient Disposition: Home Health Service Discharge Diagnosis: ESRD, missed dialysis Referrals: Lonnie Khan MD [Primary Care Provider] - 1 Week Discharge Medications: New diltiazem HCl [Cartia XT] 180 mg capsule,extended release 24hr 180 mg PO DAILY Qty: 90 0RF Continued montelukast 10 mg tablet 10 mg PO BEDTIME Qty: 30 3RF loratadine 10 mg tablet 10 mg PO DAILY Qty: 30 3RF cholecalciferol (vitamin D3) [Vitamin D3] 25 mcg (1,000 unit) capsule 25 mcg PO DAILY Qty: 30 3RF Eliquis 5 mg tablet 5 mg PO BID 30 Days Qty: 60 0RF atorvastatin 40 mg tablet 40 mg PO BEDTIME Qty: 30 3RF (DME) FreeStyle Lite Strips Strip See Rx Instructions .ROUTE .MEDSUPPLY Qty: 100 12RF Rx Instructions: As directed once a day gabapentin 100 mg capsule 100 mg PO BEDTIME 30 Days Qty: 30 0RF insulin lispro 100 unit/mL solution 1 sliding scale dose SUBCUT TIDAC Qty: 10 0RF Protocol: Insulin Correction Scale Less than or equal to 110 ---- Give (units): 0 111 to 150 Give (units): 0 151 to 200 Give (units): 2 201 to 250 Give (units): 4 251 to 300 Give (units): 6 301 to 350 Give (units): 8 Greater than 350 Give (units): 10 Call MD if Blood Glucose > : 350 levothyroxine 25 mcg capsule 25 mcg PO DAILY@0600 Qty: 30 0RF pantoprazole 20 mg tablet,delayed release (DR/EC) 20 mg PO DAILY@0600 Qty: 30 0RF (DME) pen needle, diabetic [BD Sandra 2nd Gen Pen Needle] 32 gauge x 5/32 needle See Rx Instructions .Route Qty: 50 0RF Rx Instructions: As directed Metamucil Fiber Singles 3.4 gram Powder In Packet 3.4 g PO DAILY Qty: 30 0RF acetaminophen 325 mg Tablet 650 mg PO Q6H PRN (Reason: GENERAL DISCOMFORT) 0RF ferrous sulfate 325 mg (65 mg iron) Tablet 325 mg PO DAILY 0RF Saline Nasal 0.65 % Aerosol,[place] 1 spray INTRANASAL Q2H PRN (Reason: Congestion) 0RF nystatin 100,000 unit/gram Powder 1 appl TOPICAL BID 0RF Protocol: Apply to: Apply to: GROIN AREA melatonin 5 mg Tablet 5 mg PO BEDTIME PRN (Reason: Sleep) 0RF cyanocobalamin (vitamin B-12) 1,000 mcg Tablet 1,000 mcg PO DAILY 0RF aspirin 81 mg Tablet,Delayed Release (Dr/Ec) 81 mg PO DAILY 0RF Lantus U-100 Insulin 100 unit/mL Solution 8 unit SUBCUT BEDTIME 0RF (DME) blood-glucose meter [FreeStyle Lite Meter] Kit See Rx Instructions .Route Qty: 1 0RF Rx Instructions: As directed (DME) FreeStyle Lite Strips Strip See Rx Instructions .ROUTE .MEDSUPPLY Qty: 100 0RF Rx Instructions: As directed (DME) lancets [FreeStyle Lancets] 28 gauge misc See Rx Instructions .ROUTE .MEDSUPPLY Qty: 100 0RF Rx Instructions: As directed (DME) blood-glucose meter [FreeStyle Lite Meter] Kit See Rx Instructions .Route Qty: 1 0RF Rx Instructions: As directed 3 times a day Discontinued diltiazem HCl [Cardizem CD] 120 mg capsule,extended release 24hr 120 mg PO DAILY 30 Days Qty: 30 0RF Protocol: Hold for SBP/HR < HOLD for SBP < : 90 HOLD for HR < : 60 Discharge Orders: Discharge Order (Routine); Ordered 08/01/21 Ordered By: Benjamin Cage Diet: advance to usual diet Activity on Discharge: As tolerated Stand Alone Forms: Patient Portal Discharge page Care Plan Goals: To stay healthy and out of the hospital. Health Concerns: ESRD -- missed dialysis sessions A.Fib Plan of Treatment: Continue with your dialysis sessions, do not miss any sessions A. Fib -- your Cardizem (Diltaizem) has been increased from 120mg to 180mg daily; continue with your Eliuqis Assessment: see d/c summary
--- NOTE | 2021-08-01 10:36 | MHC.CM.PN ---
Received notification that patient will be discharged home today. Per Dr Cage, nephrology is going to try to change HD time. T/W spoke with patient's son/HCP, Jason. Jason aware patient will be d/c'd. Jason was hoping HD chair time would be changed. T/W explained manager hair was going to speak to the facility. However, patient would need to show compliance, even at 515am in the morning. Jason requesting transport home for patient. Chair van booked for 1230pm. [facility] with chart. Patient is active with [facility]. T/W spoke with Nel at [facility]. Explained patient's non-compliance with HD and nephrology attempting to change chair time. Nel will reach out to the vision care associate to help encourage HD compliance. Continue to monitor for d/c needs.
--- NOTE | 2021-08-01 11:50 | P.PNNP_ITS ---
Subjective Subjective Date of Service: 08/01/21 Interval history: Seen and examined, events noted Physical Exam Vital Signs: Vital Signs: Last Vital Signs Temp 98.1 F 08/01/21 08:40 Pulse 81 08/01/21 08:40 Resp 16 08/01/21 08:40 BP 167/51 H 08/01/21 08:40 Pulse Ox 97 08/01/21 08:40 BMI result Body Mass Index 38.6 Const: Other: General - no acute distress, appears comfortable Cardiovascular - regular rate and rhythm, S1-S2 Lungs - normal respiratory effort, clear to auscultation bilaterally, no wheezing Abdomen - soft, nontender, no rebound or guarding Extremities - no edema bilaterally Neuro - awake and alert, no focal deficits General: cooperative, no acute distress and alert Nutritional Appearance: obese Orientation/consciousness: patient oriented x3 and Other orientation findings ( oriented) HENMT: Head: Yes atraumatic Mouth: no other ( thrush) Throat: No postnasal drainage Eyes: General: appearance normal, both eyes and all related structures Sclerae: sclerae normal Pupils: Equal, round and reactive pupils present EOM: EOMs intact bilaterally Neck: Other: No obvious JVD Neck: Yes supple Lymphatic: no lymphadenopathy noted Resp: Other: Diminished bilaterally. Bibasilar rales. No significant dyspnea Effort & Inspection: normal respiratory effort and no use of accessory muscles Auscultation: clear to auscultation bilaterally and crackles ( bibasilar) Cardio: Other: Regular rate and rhythm without murmurs rubs or gallops Rate: regular rate and tachycardic Rhythm: regular rhythm Heart sounds: no gallops, no murmurs and no rubs GI: Other: Soft nontender nondistended Palpation (GI): Soft to palpation and Other GI palpation findings present ( nontender) Auscultation: normal bowel sounds Skin: Other: Warm and dry without rash General skin exam: no rashes or lesions noted and other ( warm) Rashes: no rashes Neuro: Other: Nonfocal neuro exam General: patient oriented x3 Cranial nerves: Yes Equal, round and reactive pupils present Cognition (Neuro): normal cognition Extrem: Other: 2 plus pitting edema General: Yes normal to inspection, No clubbing, No cyanosis and Yes edema ( 1+ bilateral lower extremity) Objective Data Labs CBC & Chem 7: 08/01/21 06:47 08/01/21 06:47 Labs: Laboratory Results - last 24 hr 07/31/21 07/31/21 07/31/21 13:23 17:54 20:34 WBC RBC Hgb Hct MCV MCH MCHC RDW Plt Count MPV Absolute Nucleated RBC Nucleated RBC % (auto) Sodium Potassium Chloride Carbon Dioxide Anion Gap BUN Creatinine Estim Creat Clear Calc Estimated GFR POC Glucose 104 167 H 230 H Random Glucose Calcium 08/01/21 08/01/21 08/01/21 06:47 06:47 07:44 WBC 11.3 H RBC 3.42 L Hgb 9.7 L Hct 31.3 L MCV 91.5 MCH 28.4 MCHC 31.0 RDW 17.1 H Plt Count 225 MPV 9.5 Absolute Nucleated RBC 0.000 Nucleated RBC % (auto) 0.0 Sodium 134 L Potassium 3.9 Chloride 102 Carbon Dioxide 21 L Anion Gap 15 BUN 26 H D Creatinine 2.77 H Estim Creat Clear Calc 18.0 Estimated GFR 17 POC Glucose 137 H Random Glucose 141 H Calcium 7.5 L D Procedures Date of Service Date of Service: 08/01/21 Assessment & Plan Assessment and plan (1) End stage kidney disease: Status: Acute (2) Pleural effusion: Status: Acute (3) Pneumonia: Status: Acute (4) PAF (paroxysmal atrial fibrillation): Status: Acute (5) Atrial fibrillation with RVR: Status: Acute Plan 75 year old women admitted with fluid overload and missed dialysis ESRD: usu TTS at [facility]; looking forward I will try to arrange for 2x/wkHD and 2nd shift Anemia Sheseemto stillhave some residual renal func so2x/w HD makes sense Time Spent With Patient Time: Total time spent is greater than 50% in coordination of care (as documented) at patient's floor/unit and/or counseling patient: Progress Note: Quality Stroke Does the patient have a stroke diagnosis?: No
[2021-08-01 11:52] VITALS: BP 141/79; PULSE 94; RESP 17; TEMP 36.8; O2SAT 100
--- NOTE | 2021-08-01 12:57 | PC.NURSE ---
Addendum entered by Elida Liang RN 08/01/21 13:49: Pt was given D/C instructions and IV removed prior to D/C. Original Note: [facility] arrived at bedside to transport back to home. Pt offers no complaints during D/C.
== END 2021-08-01 17:50 | disposition home health service (06) | DRG 640 ==
LOC: HO.ED 19:06 → HO.EDOVER 20:59
PROVIDERS: Nurse Practitioner Acute Care; Admitting Provider Internal Medicine; Emergency Provider Emergency Medicine; PCP Internal Medicine; Visit Provider Family Medicine
DX: E87.70 Fluid overload, unspecified (principal); J18.9 Pneumonia, unspecified organism; N18.6 End stage renal disease; J91.8 Pleural effusion in other conditions classified elsewhere; E11.22 Type 2 diabetes mellitus with diabetic chronic kidney disease; E03.9 Hypothyroidism, unspecified; I48.0 Paroxysmal atrial fibrillation; I25.10 Atherosclerotic heart disease of native coronary artery without angina pectoris; D63.1 Anemia in chronic kidney disease; Z99.2 Dependence on renal dialysis; Z91.15 Patient's noncompliance with renal dialysis; Z20.822 Contact with and (suspected) exposure to COVID-19; Z79.4 Long term (current) use of insulin; Z79.01 Long term (current) use of anticoagulants; Z79.890 Hormone replacement therapy; Z79.899 Other long term (current) drug therapy
CPT/HCPCS: 36415; 71046; 71250; 80048; 80053; 82947; 83605; 83880; 84484; 85025; 85027; 85610; 87635; 90999; 93005; 96374; 99285; J0696

== ENCOUNTER 2021-08-16 07:06 | Emergency (ER) | payer MEDICARE, SELFPAY ==
--- NOTE | ~2021-08-16 | CT_ITS ---
EXAMINATION: CT HEAD AND CT CERVICAL SPINE WITHOUT CONTRAST. CLINICAL INFORMATION: Fall, head injury. COMPARISON: None TECHNIQUE: 5 mm thin axial and reformatted 2 mm thin coronal and sagittal images of brain were obtained. Axial 3 mm and reformatted 2 mm thin sagittal coronal images of cervical spine were obtained. DLP 1430. FINDINGS: Brain: There is no acute intra-axial, extra-axial bleed, masses or midline shift. There is no acute infarction evolution. There is old right basal ganglia infarct with ex vacuole dilatation of frontal horn right lateral ventricle. There is punctate calcification of the left basal ganglia. There is no acute infarct in evolution. The lateral ventricles are asymmetrical but mildly enlarged bone windows reveal no calvarial abnormality. There is mucoperiosteal thickening right maxillary sinus. Rest the paranasal sinuses are well-aerated. The scalp soft tissues are normal. Cervical spine: There is mild straightening of cervical lordosis. The vertebral heights and alignment is normal. There is mild ventral spondylosis C4-C5, C5-C6 and C6-C7 disc levels. The craniovertebral junction and the C1-C2 alignment is normal. There is no visible acute fracture, dislocation or subluxation. The prevertebral and paravertebral soft tissues are normal. Visualized bilateral thyroid, submandibular and parotid glands are symmetrical and normal. The lung apices are clear. Internal finding of small bilateral pleural effusions are noted. 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 No acute intracranial process seen. There is moderate ventral spondylosis C4-C5, C5-C6 and C6-C7 disc levels. No visible acute fracture, dislocation or lytic process seen.
--- NOTE | ~2021-08-16 | CT_ITS ---
EXAMINATION: CT HEAD AND CT CERVICAL SPINE WITHOUT CONTRAST. CLINICAL INFORMATION: Fall, head injury. COMPARISON: None TECHNIQUE: 5 mm thin axial and reformatted 2 mm thin coronal and sagittal images of brain were obtained. Axial 3 mm and reformatted 2 mm thin sagittal coronal images of cervical spine were obtained. DLP 1430. FINDINGS: Brain: There is no acute intra-axial, extra-axial bleed, masses or midline shift. There is no acute infarction evolution. There is old right basal ganglia infarct with ex vacuole dilatation of frontal horn right lateral ventricle. There is punctate calcification of the left basal ganglia. There is no acute infarct in evolution. The lateral ventricles are asymmetrical but mildly enlarged bone windows reveal no calvarial abnormality. There is mucoperiosteal thickening right maxillary sinus. Rest the paranasal sinuses are well-aerated. The scalp soft tissues are normal. Cervical spine: There is mild straightening of cervical lordosis. The vertebral heights and alignment is normal. There is mild ventral spondylosis C4-C5, C5-C6 and C6-C7 disc levels. The craniovertebral junction and the C1-C2 alignment is normal. There is no visible acute fracture, dislocation or subluxation. The prevertebral and paravertebral soft tissues are normal. Visualized bilateral thyroid, submandibular and parotid glands are symmetrical and normal. The lung apices are clear. Internal finding of small bilateral pleural effusions are noted. 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 No acute intracranial process seen. There is moderate ventral spondylosis C4-C5, C5-C6 and C6-C7 disc levels. No visible acute fracture, dislocation or lytic process seen.
[2021-08-16 07:31] VITALS: BP 164/92; BP 174/97; PULSE 138; RESP 24; O2SAT 100; O2SAT 99; BMI 35.2
[2021-08-16 07:40] VITALS: BP 182/46; PULSE 140; RESP 18; O2SAT 100
--- NOTE | 2021-08-16 07:43 | ECG_ITS ---
Test Reason : FALL Blood Pressure : / mmHG Vent. Rate : 125 BPM Atrial Rate : 312 BPM P-R Int : 000 ms QRS Dur : 074 ms QT Int : 292 ms P-R-T Axes : 000 039 042 degrees QTc Int : 421 ms Atrial flutter with variable A-V block Nonspecific T wave abnormality Abnormal ECG When compared with ECG of 31-JUL-2021 18:16, Atrial flutter has replaced Sinus rhythm Referred By: Maggy Peterson Electronically Signed By:BETY NIÑO
--- NOTE | 2021-08-16 07:44 | ED_ITS ---
HPI - Fall General Chief Complaint: Fall Stated Complaint: RIGHT EYE INJURY S/P FALL FROM CHAIR Time Seen by Provider: 08/16/21 07:15 Source: patient Mode of arrival: EMS Limitations: language barrier (Kazakh-speaking, medical leader utilized.) History of Present Illness HPI Narrative: Patient is a 75-year-old female with a past medical history of anemia, arthritis, atrial fibrillation on apixaban, hypertension, CAD, ESRD on dialysis, GERD, hyperlipidemia, hypothyroidism, obesity, osteoarthritis, hyperlipidemia, type 2 diabetes. She presents to the emergency department today after a fall. She was at her dialysis center this morning and while sitting in her wheelchair she leaned forward to picker packer a bag that was on the floor, she states it was ?pulling hair? and she fell forward striking her head onto a wheelchair in front of her. Upon EMS arrival she had reported pain to her right eye which has since subsided. In addition she had reported right lateral neck pain which had been bothering her for about 1 week prior reporting that it felt like a muscle spasm and pinched nerve. Currently she is without any neck pain and denies any numbness/ tingling or burning to the arms/ hands. Denies loss of consciousness with this fall, denied any bleeding. Denies headache, vision changes, facial pa in, chest pain, palpitations, shortness of breath, difficulty breathing, nausea, vomiting, abdominal pain, dysuria, urinary frequency, bladder or bowel dysfunction, numbness or tingling of the lower extremities. MD complaint: fall Onset (ago): hour(s) Fall from: wheelchair Fall witnessed: yes, by bystander Place fall occurred: other Loss of consciousness: none Prolonged down time: no Symptoms prior to fall: none Location of injury: head Related Data Home Medications Medication Instructions Recorded Confirmed acetaminophen 325 mg tablet 650 mg PO Q6H PRN 05/21/21 08/05/21 ferrous sulfate 325 mg (65 mg 325 mg PO DAILY 05/21/21 08/05/21 iron) tablet sodium chloride 0.65 % nasal spray 1 spray INTRANASAL Q2H PRN 05/21/21 08/05/21 aerosol (Saline Nasal) cyanocobalamin (vitamin B-12) 1,000 mcg PO DAILY 07/30/21 08/05/21 1,000 mcg tablet melatonin 5 mg tablet 5 mg PO BEDTIME PRN 07/30/21 08/05/21 nystatin 100,000 unit/gram topical 1 appl TOPICAL BID 07/30/21 08/05/21 powder Previous Rx's Medication Instructions Recorded blood sugar diagnostic (FreeStyle #100 ea 04/13/21 Lite Strips) blood-glucose meter (FreeStyle #1 ea 04/13/21 Lite Meter) lancets 28 gauge (FreeStyle #100 ea 04/13/21 Lancets) psyllium husk (aspartame) 3.4 gram 3.4 g PO DAILY #30 ea 04/17/21 oral powder packet (Metamucil Fiber Singles) blood-glucose meter (FreeStyle #1 ea 04/26/21 Lite Meter) montelukast 10 mg tablet 10 mg PO BEDTIME #30 tab 05/05/21 atorvastatin 40 mg tablet 40 mg PO BEDTIME #30 tab 07/19/21 blood sugar diagnostic (FreeStyle #100 ea 07/19/21 Lite Strips) gabapentin 100 mg capsule 100 mg PO BEDTIME 30 Days #30 cap 07/19/21 levothyroxine 25 mcg capsule 25 mcg PO DAILY@0600 #30 cap 07/19/21 pantoprazole 20 mg tablet,delayed 20 mg PO DAILY@0600 #30 tab 07/19/21 release pen needle, diabetic 32 gauge x #50 ea 07/19/21 (BD Sandra 2nd Gen Pen Needle) diltiazem HCl 180 mg 180 mg PO DAILY #90 cap 08/01/21 capsule,extended release 24 hr (Cartia XT) TRANSPORT WHEELCHAIR #1 ea 08/03/21 blood pressure monitor #1 ea 08/03/21 cholecalciferol (vitamin D3) 25 25 mcg PO DAILY #90 tab 08/06/21 mcg (1,000 unit) tablet loratadine 10 mg tablet 10 mg PO DAILY #90 tab 08/06/21 aspirin 81 mg tablet,delayed 81 mg PO DAILY #90 tab 08/07/21 release apixaban 5 mg tablet (Eliquis) 5 mg PO BID #60 tab 08/14/21 insulin glargine 100 unit/mL (3 8 unit (0.08 mL) SUBCUT QPM #15 ml 08/15/21 mL) subcutaneous pen insulin lispro 100 unit/mL 1 sliding scale dose SUBCUT 08/15/21 subcutaneous pen QIDACHS #15 ml Allergies Allergy/AdvReac Type Severity Reaction Status Date / Time No Known Allergies Allergy Verified 08/05/21 02:19 Review of Systems Review of Systems: Constitutional : No Fever, No Chills, No Fatigue ENT/Mouth : No sore throat, No Rhinorrhea Eyes: No Eye Pain, No Swelling, No Redness Cardiovascular : No Chest Pain, No SOB, No Dyspnea on Exertion, Positive pedal edema Respiratory : No Cough, No Sputum Gastrointestinal : No Nausea, No Vomiting, No Diarrhea, No abdominal Pain Genitourinary : No Dysuria, No Urinary Frequency, No Hematuria, Musculoskeletal : No joint pain, No Myalgias, No Joint Swelling Skin : No Skin Lesions, No rash Neuro : No Weakness, No Numbness, No Dizziness, No Headache Psych : No Anxiety/Panic, No Depression Heme/Lymph: No Bruising, No Bleeding,No Lymphadenopathy Endocrine : No Polyuria, No Polydipsia ? All other systems reviewed and are negative PMFSH Past Medical History Attestation statement: The following information was validated with the patient. Source: old records reviewed Medical History Acute pericardial effusion Anemia Anemia Arthritis Atrial fibrillation Benign essential hypertension CAD (coronary artery disease) Chronic kidney disease, stage V End stage kidney disease ESRD (end stage renal disease) GERD (gastroesophageal reflux disease) HLD (hyperlipidemia) Hypothyroidism Iron deficiency Nephrotic range proteinuria Obese Obesity (BMI 30-39.9) Osteoarthritis PAF (paroxysmal atrial fibrillation) Paroxysmal atrial fibrillation Pernicious anemia Pure hypercholesterolemia Renal failure Toe amputee Type 2 diabetes mellitus Surgical History Hx of appendectomy Social History Social History Household Members: None Household Members Other:: self, son lives close by Housing: House Do you presently have visiting nurse or other home services: No Alcohol intake: never Patient Tobacco Use Status: Never used Tobacco Tobacco use type: Cigarette e-Cigarette/Vaping Use: Never Used Second Hand Smoke Exposure: No Advance Directives: No Advance Directives Information Provided: No service: No Current occupational status: retired Physical Exam Vital Signs: Vital Signs: Last Vital Signs Pulse 77 08/16/21 11:41 Resp 18 08/16/21 10:07 BP 202/76 H 08/16/21 10:07 Pulse Ox 97 08/16/21 11:41 BMI result Body Mass Index 35.2 Vital signs have been reviewed and appeared to be correct. Blood pressure initially elevated.? Heart rate elevated 140 history of atrial fibrillation. Respiration rate normal. Temperature normal.? Oxygen saturation normal. Appearance: Alert.?Oriented to person, place and time. No acute distress.?Normal affect. Head: Normocephalic, atraumatic. No head, sinus or TMJ tenderness.? Eyes: Sclera white, conjunctiva pink. PERRL, 2 mm bilaterally. Visual villalobos full to confrontation, EOMi.?No Nystagmus. Ears: Bilateral ear canals clear, TM visible with good cone of light.? Nose: Nasal mucosa pink and moist with midline septum, nares patent bilaterally.? Mouth/ Throat: Oral mucosa pink and moist without lesions. Upper dentures in place and completely intact. Pharynx without exudate, tonsils symmetric, no ad enopathy.? Neck: Normal inspection.? Neck supple.? No palpable cervical midline tenderness, step-offs, deformities. CVS: Heart sounds normal. Irregularly irregular heart rate and rhythm.? Pulses normal. 3+ pedal edema bilaterally?? Respiratory: No respiratory distress.? Lung sounds with fine crackles to the bilateral bases Abdomen: Soft and non-tender. Normoactive bowel sounds. No pulsatile mass.?? Skin: + faint blue discoloration above right brow, no palpable tenderness or deformity. Skin warm and dry.? Normal skin color.? Normal skin turgor.?? Extremities: No calf ttp? Neuro: Moves all extremities spontaneously. Sensation intact bilaterally. CN II- XII intact. No focal neuro deficits. Course Course Course Narrative: Patient is a 75-year-old female being evaluated after a mechanical fall. She denied any preceding dizziness/lightheadedness suggest a syncopal event. Given head injury, and patient is taking apixaban will obtain head and neck CT to exclude ICH/SAH/fracture dislocation. Tachycardia 130-140 though I suspect that this is due to her underlying atrial fibrillation, will obtain troponin and EKG to exclude alternative arrhythmia/ ischemia/ ACS. Will obtain basic labs including CBC and BMP to assess electrolytes and renal function. EKG indicates atrial flutter with variable AV block, will administer Cardizem 20 mg IV, Disposition will be pending results. Reevaluation(s) Reevaluation #1: CBC reveals baseline anemia with hemoglobin and hematocrit 9.4 and 30.6 respectively consistent with prior BMP indicates mildly low sodium 131 consistent with prior labs, BUN and creatinine 43 and 4.01 which is consistent with baseline. Troponin is elevated 39.6 which is also consistent with prior, however will obtain repeat delta. CT of head reveals no acute intracranial process, old right basal ganglia infarct. Moderate spondylosis throughout cer vical OS following without fracture dislocation. Hard cervical spine collar cleared/removed at this time. Blood pressure on repeat 167/101 with heart rate 90-110 remains in atrial fibrillation. Of note, she was unable to receive her dialysis treatment today, her typical schedule is Friday//Friday, and she reports that she will be unable to receive dialysis at her facility today as there is a problem with the [facility]. She is uncertain of the name of her dialysis facility. Her wheelchair was left at the dialysis facility. However, she does report that she has a walker at home that she will be able to get around with until she can return to dialysis center via her transportation services. Time: 09:39 Reevaluation #2: Heart rate consistently in the 80s, persistent atrial fibrillation but rate is seemingly controlled. At this time will administer home diltiazem dosing she has not yet taken the medication today. Pending repeat troponin. If normal will speak with Nephrology to determine whether patient will require admission for dialysis or whether she can be discharged home with outpatient follow-up for her scheduled dialysis in 2 days. Patient currently on any complaints. She is denying pain. Time: 10:01 Reevaluation #3: Spoke with Dr. Leach from nephrology, who advises that patient could contact her outpatient dialysis center to try and reschedule treatment for tomorrow or wait until Friday. Should she develop any concerning symptoms she should return to the emergency department for evaluation. Repeat troponin is 31.8 <50% delta, therefore unlikely to be secondary to ACS. Patient is well appearing, hemodynamically stable, continues to be an H real fibrillation with rate well controlled. I discussed all results with patient and plan for discharge home. She is agreeable with this plan of care. We will arrange for ambulance transport home as she does not have her wheelchair. Discussed reasons to return back to the emergency department; including but not limited to severe headache, confusion, vision changes, chest pain, palpitations, shortness of breath, dyspnea with exertion, nausea/vomiting, severe abdominal pain, inability to urinate, worsening pedal edema or any new or worsening symptoms or concerns Time: 12:16 - Fall Medical Records Attestation: I reviewed the patient's medical records. Lab Data Attestation: I reviewed the patient's lab results. Result diagrams: 08/16/21 08:14 08/16/21 08:14 Labs: Lab Results 08/16/21 08/16/21 08/16/21 Range/Units 08:14 08:14 08:14 WBC 10.2 (4.8-10.8) X10*3/uL RBC 3.21 L (4.20-5.50) X10*6/uL Hgb 9.4 L (12.0-16.0) g/dl Hct 30.6 L (37.0-47.0) % MCV 95.3 (80.0-98.0) fL MCH 29.3 (27.0-33.0) pg MCHC 30.7 L (31.0-35.0) g/dl RDW 17.6 H (11.0-16.0) % Plt Count 280 (160-400) X10*3/uL MPV 9.7 (9.4-12.3) fL Immature Gran % (Auto) 0.8 H (0.0-0.4) % Neut % (Auto) 72.0 (45-73) % Lymph % (Auto) 12.8 L (20-40) % [place] % (Auto) 6.5 (2-11) % Eos % (Auto) 7.3 H (0-4) % Baso % (Auto) 0.6 (0-2) % Lymph # (Auto) 1.3 (1.2-4.9) X10*3/uL [place] # (Auto) 0.7 (0.1-1.2) X10*3/uL Eos # (Auto) 0.7 H (0.0-0.4) X10*3/uL Baso # (Auto) 0.1 (0.0-0.2) X10*3/uL Abs Immat Gran (auto) 0.08 H (0.00-0.03) X10*3/uL Absolute Neuts (auto) 7.4 (2.0-8.3) x10*3/uL Absolute Nucleated RBC 0.000 (0.0-0.012) X10*3/uL Nucleated RBC % (auto) 0.0 (0.0-0.2) /100WBC Sodium 131 L (135-145) mmol/L Potassium 4.5 (3.3-5.1) mmol/L Chloride 99 (96-108) mmol/L Carbon Dioxide 19 L (22-29) mmol/L Anion Gap 18 (12-20) BUN 43 H D (9-16) mg/dL Creatinine 4.01 H* (0.5-1.4) mg/dL Estim Creat Clear Calc 11.8 Estimated GFR 11 Random Glucose 196 H (60-115) mg/dL Calcium 7.9 L (8.4-10.2) mg/dL Troponin I High Sens 39.6 H (<3.5-17.0) ng/L 08/16/21 Range/Units 11:46 WBC (4.8-10.8) X10*3/uL RBC (4.20-5.50) X10*6/uL Hgb (12.0-16.0) g/dl Hct (37.0-47.0) % MCV (80.0-98.0) fL MCH (27.0-33.0) pg MCHC (31.0-35.0) g/dl RDW (11.0-16.0) % Plt Count (160-400) X10*3/uL MPV (9.4-12.3) fL Immature Gran % (Auto) (0.0-0.4) % Neut % (Auto) (45-73) % Lymph % (Auto) (20-40) % [place] % (Auto) (2-11) % Eos % (Auto) (0-4) % Baso % (Auto) (0-2) % Lymph # (Auto) (1.2-4.9) X10*3/uL [place] # (Auto) (0.1-1.2) X10*3/uL Eos # (Auto) (0.0-0.4) X10*3/uL Baso # (Auto) (0.0-0.2) X10*3/uL Abs Immat Gran (auto) (0.00-0.03) X10*3/uL Absolute Neuts (auto) (2.0-8.3) x10*3/uL Absolute Nucleated RBC (0.0-0.012) X10*3/uL Nucleated RBC % (auto) (0.0-0.2) /100WBC Sodium (135-145) mmol/L Potassium (3.3-5.1) mmol/L Chloride (96-108) mmol/L Carbon Dioxide (22-29) mmol/L Anion Gap (12-20) BUN (9-16) mg/dL Creatinine (0.5-1.4) mg/dL Estim Creat Clear Calc Estimated GFR Random Glucose (60-115) mg/dL Calcium (8.4-10.2) mg/dL Troponin I High Sens 31.8 H (<3.5-17.0) ng/L Imaging Data CT scan - head: Radiologist's impression: IMPRESSION: 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 No acute intracranial process seen. ? There is moderate ventral spondylosis C4-C5, C5-C6 and C6-C7 disc levels. No visible acute fracture, dislocation or lytic process seen.? ECG Data Attestation: I personally reviewed and interpreted this ECG as follows: ECG interpretation date: 08/16/21 ECG interpretation time: 08:00 Prior ECG tracings: available for review Interpretation: Rate: 125 Rhythm:? Atrial flutter variable AV block [place]:? Normal Normal QRS complex.?? ST T wave :??No ST elevation, no ST depression, no T-wave inversion qTC: 421 prior studies:? 07/31/2021 The study has been interpreted contemporaneously by me. Discharge Plan Discharge Clinical Impression: Fall, Atrial fibrillation, End stage renal disease Patient Disposition: Home, Self-Care Additional Instructions: You were evaluated in the emergency department after you had a fall at dialysis. You were unable to receive your dialysis treatment today. As we discussed you should contact your dialysis facility tomorrow to determine whether her dialysis can be rescheduled for tomorrow, otherwise your next treatment is Friday. Please return to the emergency department with any new or worsening symptoms or concerns. Should you develop severe headache, confusion, vision changes, chest pain, palpitations, shortness of breath, difficulty breathing, nausea/vomiting, severe abdominal pain, inability to urinate, worsening leg/foot edema you should return back to the emergency department. Prescriptions: No Action montelukast 10 mg tablet 10 mg PO BEDTIME Qty: 30 3RF atorvastatin 40 mg tablet 40 mg PO BEDTIME Qty: 30 3RF (DME) FreeStyle Lite Strips Strip See Rx Instructions .ROUTE .MEDSUPPLY Qty: 100 12RF Rx Instructions: As directed once a day gabapentin 100 mg capsule 100 mg PO BEDTIME 30 Days Qty: 30 0RF levothyroxine 25 mcg capsule 25 mcg PO DAILY@0600 Qty: 30 0RF pantoprazole 20 mg tablet,delayed release (DR/EC) 20 mg PO DAILY@0600 Qty: 30 0RF (DME) pen needle, diabetic [BD Sandra 2nd Gen Pen Needle] 32 gauge x 5/32 needle See Rx Instructions .Route Qty: 50 0RF Rx Instructions: As directed cholecalciferol (vitamin D3) 25 mcg (1,000 unit) tablet 25 mcg PO DAILY Qty: 90 1RF loratadine 10 mg tablet 10 mg PO DAILY Qty: 90 1RF aspirin 81 mg tablet,delayed release (DR/EC) 81 mg PO DAILY Qty: 90 1RF Eliquis 5 mg tablet 5 mg PO BID Qty: 60 2RF insulin lispro 100 unit/mL insulin pen 1 sliding scale dose subcut QIDACHS Qty: 15 0RF Rx Instructions: Take 2 to 10 units before meals and at bedtime subcutaneous PER SLIDING SCALE insulin glargine 100 unit/mL (3 mL) insulin pen 8 unit subcut QPM Qty: 15 0RF Metamucil Fiber Singles 3.4 gram Powder In Packet 3.4 g PO DAILY Qty: 30 0RF acetaminophen 325 mg Tablet 650 mg PO Q6H PRN (Reason: GENERAL DISCOMFORT) 0RF ferrous sulfate 325 mg (65 mg iron) Tablet 325 mg PO DAILY 0RF Saline Nasal 0.65 % Aerosol,[place] 1 spray INTRANASAL Q2H PRN (Reason: Congestion) 0RF nystatin 100,000 unit/gram Powder 1 appl TOPICAL BID 0RF Protocol: Apply to: Apply to: GROIN AREA melatonin 5 mg Tablet 5 mg PO BEDTIME PRN (Reason: Sleep) 0RF cyanocobalamin (vitamin B-12) 1,000 mcg Tablet 1,000 mcg PO DAILY 0RF diltiazem HCl [Cartia XT] 180 mg capsule,extended release 24hr 180 mg PO DAILY Qty: 90 0RF (DME) blood-glucose meter [FreeStyle Lite Meter] Kit See Rx Instructions .Route Qty: 1 0RF Rx Instructions: As directed (DME) FreeStyle Lite Strips Strip See Rx Instructions .ROUTE .MEDSUPPLY Qty: 100 0RF Rx Instructions: As directed (DME) lancets [FreeStyle Lancets] 28 gauge misc See Rx Instructions .ROUTE .MEDSUPPLY Qty: 100 0RF Rx Instructions: As directed (DME) blood-glucose meter [FreeStyle Lite Meter] Kit See Rx Instructions .Route Qty: 1 0RF Rx Instructions: As directed 3 times a day (DME) TRANSPORT WHEELCHAIR See Rx Instructions .Route .MEDSUPPLY Qty: 1 0RF Rx Instructions: As directed (DME) blood pressure monitor Kit See Rx Instructions .Route Qty: 1 0RF Rx Instructions: As directed Interventions: ED Discharge Assessment Last Done: 08/16/21 14:11 Discharge Date/Time: 08/16/21 14:12
[2021-08-16 08:18] LABS: MANUAL DIFF FLAG NO
[2021-08-16 08:20] LABS: Basophils Absolute Auto 0.1 X10*3/uL (0.0-0.2); Basophils Percent Auto 0.6 % (0-2); Eosinophils Absolute Auto 0.7 X10*3/uL (0.0-0.4); Eosinophils Percent Auto 7.3 % (0-4); Hematocrit 30.6 % (37.0-47.0); Hemoglobin 9.4 g/dl (12.0-16.0); Imm Gran Abs Auto 0.08 X10*3/uL (0.00-0.03); Imm Gran Pct Auto 0.8 % (0.0-0.4); Lymphocytes Absolute Auto 1.3 X10*3/uL (1.2-4.9); Lymphocytes Percent Auto 12.8 % (20-40); Mean Corpuscular HGB Conc 30.7 g/dl (31.0-35.0); Mean Corpuscular Hemoglobin 29.3 pg (27.0-33.0); Mean Corpuscular Volume 95.3 fL (80.0-98.0); Mean Platelet Volume 9.7 fL (9.4-12.3); Monocytes Absolute Auto 0.7 X10*3/uL (0.1-1.2); Monocytes Percent Auto 6.5 % (2-11); Neutrophils Absolute Auto 7.4 x10*3/uL (2.0-8.3); Platelet Count 280 X10*3/uL (160-400); Red Blood Count 3.21 X10*6/uL (4.20-5.50); Red Cell Distribution Width 17.6 % (11.0-16.0); White Blood Count 10.2 X10*3/uL (4.8-10.8)
[2021-08-16] MEDS: dilTIAZem HCL 50 MG/10 ML VIAL 20 MG IVPUSH (08:33)
[2021-08-16 08:38] LABS: Troponin-I High Sensitivity 39.6 ng/L (<3.5-17.0)
[2021-08-16 08:42] LABS: Anion Gap 18 (12-20); Blood Urea Nitrogen 43 mg/dL (9-16); Calcium 7.9 mg/dL (8.4-10.2); Carbon Dioxide 19 mmol/L (22-29); Chloride 99 mmol/L (96-108); Creatinine Clr Calc Pharmacy 11.8; Estimated Glomerular Filt Rate 11; Glucose Random 196 mg/dL (60-115); Potassium 4.5 mmol/L (3.3-5.1); Sodium 131 mmol/L (135-145)
[2021-08-16 10:07] VITALS: BP 160/102; BP 202/76; PULSE 82; PULSE 83; RESP 18; RESP 20; O2SAT 98; O2SAT 99
[2021-08-16] MEDS: dilTIAZem HCL 60 MG TABLET 180 MG PO (10:29)
[2021-08-16 11:41] VITALS: PULSE 77; O2SAT 97
[2021-08-16 12:14] LABS: Troponin-I High Sensitivity 31.8 ng/L (<3.5-17.0)
== END 2021-08-16 14:12 | disposition home or self-care (01) ==
PROVIDERS: Nurse Practitioner Family; Emergency Provider Emergency Medicine; PCP Internal Medicine
DX: H57.11 Ocular pain, right eye (principal); M54.2 Cervicalgia; Z91.81 History of falling; I48.0 Paroxysmal atrial fibrillation; E11.22 Type 2 diabetes mellitus with diabetic chronic kidney disease; I12.0 Hypertensive chronic kidney disease with stage 5 chronic kidney disease or end stage renal disease; N18.6 End stage renal disease; Z99.2 Dependence on renal dialysis; E78.5 Hyperlipidemia, unspecified; Z79.02 Long term (current) use of antithrombotics/antiplatelets; Z79.82 Long term (current) use of aspirin; Z79.01 Long term (current) use of anticoagulants; Z79.4 Long term (current) use of insulin
CPT/HCPCS: 36415; 70450; 72125; 80048; 84484; 85025; 93005; 96374; 99284

== ENCOUNTER 2021-09-27 14:53 | Emergency (ER) | payer OTHER, SELFPAY ==
--- NOTE | ~2021-09-27 | XR_ITS ---
EXAMINATION: XR FOOT, RIGHT CLINICAL INFORMATION: Heel pain COMPARISON: None TECHNIQUE: AP, lateral, and oblique views of the right foot. FINDINGS: Amputation of the first digit from the metatarsophalangeal joint. No acute fracture. Hammertoe appearance of the second through fifth digits. Prominent heel spurs. Soft tissue swelling throughout. Vascular calcifications. XR/XR foot RT min 3V IMPRESSION: No acute abnormality. Prominent heel spurs.
[2021-09-27 14:52] VITALS: BP 108/68; PULSE 78; O2SAT 99
[2021-09-27 15:09] VITALS: BP 185/72; PULSE 74; RESP 18; TEMP 36.4; O2SAT 100; BMI 35.2
[2021-09-27 15:46] VITALS: BP 147/82; PULSE 77; RESP 16; TEMP 36.3; O2SAT 97
--- NOTE | 2021-09-27 17:01 | ED_ITS ---
HPI - Extremity Problem General Chief complaint: Extremity Problem Stated complaint: R LEG PAIN Time Seen by Provider: 09/27/21 15:29 Source: patient Mode of arrival: ambulatory History of Present Illness HPI Narrative: 76-year-old female with a past medical history of anemia, arthritis, AFib, CAD, ESRD on HD, HLD, hypothyroid, diabetes, toe amputations, presenting to ED coming straight from dialysis were she finished session complaining of acute on chronic right heel pain radiating up leg. Denies known injury/trauma or fall. Reports pain worse with ambulation/stepping and movement. Denies numbness, tingling, weakness, fever/chills Complaint: extremity pain Onset (ago): day(s) Related Data Home Medications Medication Instructions Recorded Confirmed acetaminophen 325 mg tablet 650 mg PO Q6H PRN 05/21/21 08/05/21 ferrous sulfate 325 mg (65 mg 325 mg PO DAILY 05/21/21 08/05/21 iron) tablet sodium chloride 0.65 % nasal spray 1 spray INTRANASAL Q2H PRN 05/21/21 08/05/21 aerosol (Saline Nasal) cyanocobalamin (vitamin B-12) 1,000 mcg PO DAILY 07/30/21 08/05/21 1,000 mcg tablet melatonin 5 mg tablet 5 mg PO BEDTIME PRN 07/30/21 08/05/21 nystatin 100,000 unit/gram topical 1 appl TOPICAL BID 07/30/21 08/05/21 powder Previous Rx's Medication Instructions Recorded blood sugar diagnostic (FreeStyle #100 ea 04/13/21 Lite Strips) blood-glucose meter (FreeStyle #1 ea 04/13/21 Lite Meter) lancets 28 gauge (FreeStyle #100 ea 04/13/21 Lancets) psyllium husk (aspartame) 3.4 gram 3.4 g PO DAILY #30 ea 04/17/21 oral powder packet (Metamucil Fiber Singles) blood-glucose meter (FreeStyle #1 ea 04/26/21 Lite Meter) montelukast 10 mg tablet 10 mg PO BEDTIME #30 tab 05/05/21 atorvastatin 40 mg tablet 40 mg PO BEDTIME #30 tab 07/19/21 blood sugar diagnostic (FreeStyle #100 ea 07/19/21 Lite Strips) pantoprazole 20 mg tablet,delayed 20 mg PO DAILY@0600 #30 tab 07/19/21 release pen needle, diabetic 32 gauge x #50 ea 07/19/21 (BD Sandra 2nd Gen Pen Needle) diltiazem HCl 180 mg 180 mg PO DAILY #90 cap 08/01/21 capsule,extended release 24 hr (Cartia XT) TRANSPORT WHEELCHAIR #1 ea 08/03/21 blood pressure monitor #1 ea 08/03/21 cholecalciferol (vitamin D3) 25 25 mcg PO DAILY #90 tab 08/06/21 mcg (1,000 unit) tablet loratadine 10 mg tablet 10 mg PO DAILY #90 tab 08/06/21 aspirin 81 mg tablet,delayed 81 mg PO DAILY #90 tab 08/07/21 release apixaban 5 mg tablet (Eliquis) 5 mg PO BID #60 tab 08/14/21 insulin glargine 100 unit/mL (3 8 unit (0.08 mL) SUBCUT QPM #15 ml 08/15/21 mL) subcutaneous pen levothyroxine 25 mcg capsule 25 mcg PO QAM #30 cap 08/21/21 insulin lispro 100 unit/mL 1 sliding scale dose SUBCUT 09/18/21 subcutaneous pen QIDACHS #15 ml gabapentin 100 mg capsule 100 mg PO BEDTIME 30 Days #30 cap 09/24/21 Allergies Allergy/AdvReac Type Severity Reaction Status Date / Time No Known Allergies Allergy Verified 08/05/21 02:19 Review of Systems Review of Systems: Constitutional: No Fever, No Chills ENT/Mouth: No Ear Pain, No Nasal Congestion, No sore throat, No Rhinorrhea, No Swallowing Difficulty Cardiovascular: No Chest Pain, No SOB Respiratory: No Cough, No Sputum, No Wheezing Gastrointestinal: No Nausea, No Vomiting, No Diarrhea, No Constipation, No Abdominal pain Genitourinary: No Dysuria, No Urgency, No Flank Pain Musculoskeletal: + joint pain, No Myalgias, No Joint Swelling Skin: No Skin Lesions, No rash Neuro: No Weakness, No Numbness, No Paresthesias Yes all other systems are reviewed and are negative [facility] Past Medical History Attestation statement: The following information was validated with the patient. Medical History Acute pericardial effusion Anemia Anemia Arthritis Atrial fibrillation Benign essential hypertension CAD (coronary artery disease) Chronic kidney disease, stage V End stage kidney disease ESRD (end stage renal disease) GERD (gastroesophageal reflux disease) HLD (hyperlipidemia) Hypothyroidism Iron deficiency Nephrotic range proteinuria Obese Obesity (BMI 30-39.9) Osteoarthritis PAF (paroxysmal atrial fibrillation) Paroxysmal atrial fibrillation Pernicious anemia Pure hypercholesterolemia Renal failure Toe amputee Type 2 diabetes mellitus Surgical History Hx of appendectomy Social History Social History Household Members: None Household Members Other:: self, son lives close by Housing: House Do you presently have visiting nurse or other home services: No Alcohol intake: never Patient Tobacco Use Status: Never used Tobacco Tobacco use type: Cigarette e-Cigarette/Vaping Use: Never Used Second Hand Smoke Exposure: No Advance Directives: No Advance Directives Information Provided: No service: No Current occupational status: retired Physical Exam Vital Signs: Vital Signs: Last Vital Signs Temp 97.4 F 09/27/21 15:46 Pulse 77 09/27/21 15:46 Resp 16 09/27/21 15:46 BP 147/82 H 09/27/21 15:46 Pulse Ox 97 09/27/21 15:46 BMI result Body Mass Index 35.2 Const: General: cooperative, healthy appearing and no acute distress Orientation/consciousness: patient oriented x3 Limitations: no limitations HEENT: Head: Yes normal to inspection Ears: hearing grossly normal bilaterally General nose exam: Normal external nose present Face and sinus: Yes normal facial exam Eyes: General: appearance normal, both eyes and all related structures EOM: EOMs intact bilaterally Neck: Neck: Yes normal visual inspection Resp: Effort & Inspection: normal respiratory effort and no respiratory distress Cardio: Rate: regular rate Peripheral pulses: dorsalis pedis present Skin: Rashes: no rashes Wounds: no wounds Neuro: General: patient oriented x3, tone normal, moves all extremities and no focal motor deficits Extrem: Other: + right heel with tenderness to palpation. No appreciable deformity/erythema or ecchymosis. No crepitus. No fluctuance/induration. Right ankle/tib-fib and knee nontender. FROM and NV intact. No calf tenderness. Compartments soft Course Course Course Narrative: XR foot RT min 3V IMPRESSION: No acute abnormality. Prominent heel spurs. > results discussed with patient. Will give podiatry follow-up MDM - Extremity (Nontraumatic) MDM Narrative Medical decision making narrative: 76-year-old female with a past medical history of anemia, arthritis, AFib, CAD, ESRD on HD, HLD, hypothyroid, diabetes, toe amputations, presenting to ED coming straight from dialysis were she finished session complaining of acute on chronic right heel pain radiating up leg. On exam vital signs stable, NAD/nontoxic- appearing, physical exam as above. Concern for stress fracture vs plantar fasciitis vs strain. No evidence of infection at this time. Low concern for DVT Plan: X-rays Medical Records Attestation: I reviewed the patient's medical records. Lab Data Attestation: I reviewed the patient's lab results. Discharge Plan Discharge Clinical Impression: Heel spur Patient Disposition: Home, Self-Care Instructions: Heel Spur (ED) Additional Instructions: Your x-ray shows heel spur. Take Tylenol as needed for pain. Follow-up with Podiatry as needed. Ice and elevate Lan radiograf?a muestra un espol?n en el al?n. [place] Tylenol seg?n sea necesario para el dolor. Seguimiento con podolog?a seg?n sea necesario. hielo y elevar Prescriptions: No Action montelukast 10 mg tablet 10 mg PO BEDTIME Qty: 30 3RF atorvastatin 40 mg tablet 40 mg PO BEDTIME Qty: 30 3RF (DME) FreeStyle Lite Strips Strip See Rx Instructions .ROUTE .MEDSUPPLY Qty: 100 12RF Rx Instructions: As directed once a day pantoprazole 20 mg tablet,delayed release (DR/EC) 20 mg PO DAILY@0600 Qty: 30 0RF (DME) pen needle, diabetic [BD Sandra 2nd Gen Pen Needle] 32 gauge x 5/32 needle See Rx Instructions .Route Qty: 50 0RF Rx Instructions: As directed cholecalciferol (vitamin D3) 25 mcg (1,000 unit) tablet 25 mcg PO DAILY Qty: 90 1RF loratadine 10 mg tablet 10 mg PO DAILY Qty: 90 1RF aspirin 81 mg tablet,delayed release (DR/EC) 81 mg PO DAILY Qty: 90 1RF Eliquis 5 mg tablet 5 mg PO BID Qty: 60 2RF insulin glargine 100 unit/mL (3 mL) insulin pen 8 unit subcut QPM Qty: 15 0RF levothyroxine 25 mcg capsule 25 mcg PO QAM Qty: 30 0RF insulin lispro 100 unit/mL insulin pen 1 sliding scale dose subcut QIDACHS Qty: 15 0RF Rx Instructions: Take 2 to 10 units before meals and at bedtime subcutaneous PER SLIDING SCALE gabapentin 100 mg capsule 100 mg PO BEDTIME 30 Days Qty: 30 0RF Metamucil Fiber Singles 3.4 gram Powder In Packet 3.4 g PO DAILY Qty: 30 0RF acetaminophen 325 mg Tablet 650 mg PO Q6H PRN (Reason: GENERAL DISCOMFORT) 0RF ferrous sulfate 325 mg (65 mg iron) Tablet 325 mg PO DAILY 0RF Saline Nasal 0.65 % Aerosol,[place] 1 spray INTRANASAL Q2H PRN (Reason: Congestion) 0RF nystatin 100,000 unit/gram Powder 1 appl TOPICAL BID 0RF Protocol: Apply to: Apply to: GROIN AREA melatonin 5 mg Tablet 5 mg PO BEDTIME PRN (Reason: Sleep) 0RF cyanocobalamin (vitamin B-12) 1,000 mcg Tablet 1,000 mcg PO DAILY 0RF diltiazem HCl [Cartia XT] 180 mg capsule,extended release 24hr 180 mg PO DAILY Qty: 90 0RF (DME) blood-glucose meter [FreeStyle Lite Meter] Kit See Rx Instructions .Route Qty: 1 0RF Rx Instructions: As directed (DME) FreeStyle Lite Strips Strip See Rx Instructions .ROUTE .MEDSUPPLY Qty: 100 0RF Rx Instructions: As directed (DME) lancets [FreeStyle Lancets] 28 gauge misc See Rx Instructions .ROUTE .MEDSUPPLY Qty: 100 0RF Rx Instructions: As directed (DME) blood-glucose meter [FreeStyle Lite Meter] Kit See Rx Instructions .Route Qty: 1 0RF Rx Instructions: As directed 3 times a day (DME) TRANSPORT WHEELCHAIR See Rx Instructions .Route .MEDSUPPLY Qty: 1 0RF Rx Instructions: As directed (DME) blood pressure monitor Kit See Rx Instructions .Route Qty: 1 0RF Rx Instructions: As directed Referrals: Valentin Barrett MD [Physician] - 10 days Interventions: ED Discharge Assessment Last Done: 09/27/21 17:14 Print Language: U[place]ayan
--- NOTE | 2021-09-27 17:12 | PC.NURSE ---
called patients son and daughter in law for ride home.
== END 2021-09-27 19:07 | disposition home or self-care (01) ==
PROVIDERS: Emergency Provider Internal Medicine; PCP Internal Medicine
DX: M77.51 Other enthesopathy of right foot and ankle (principal); M79.604 Pain in right leg; E11.22 Type 2 diabetes mellitus with diabetic chronic kidney disease; I12.0 Hypertensive chronic kidney disease with stage 5 chronic kidney disease or end stage renal disease; N18.6 End stage renal disease; Z99.2 Dependence on renal dialysis; E78.5 Hyperlipidemia, unspecified; I48.0 Paroxysmal atrial fibrillation; Z79.02 Long term (current) use of antithrombotics/antiplatelets; Z79.4 Long term (current) use of insulin; Z79.899 Other long term (current) drug therapy; Z89.411 Acquired absence of right great toe
CPT/HCPCS: 73630; 99283; 99284

== ENCOUNTER 2021-11-05 21:07 | Inpatient (IN) | payer OTHER, SELFPAY ==
--- NOTE | ~2021-11-05 | XR_ITS ---
EXAMINATION: PORTABLE CHEST 1 VIEW CLINICAL INFORMATION: chf . COMPARISON: 07/30/2021. TECHNIQUE: Portable frontal view of the chest was obtained. FINDINGS: Lungs are mildly hypoexpanded. Small layering left greater than right pleural effusions are again seen. Mild central vascular prominence slightly increased from the prior study. Right IJ dialysis catheter tip overlying the right atrium. Cardiac silhouette is prominent but unchanged with vascular calcification in the aorta. Postoperative changes in the right humerus. XR/XR chest 1V IMPRESSION: Dialysis catheter tip overlying the right atrium. Central vascular prominence increased from the prior study. Component of mild fluid overload cannot be excluded.
--- NOTE | 2021-11-05 21:14 | ED_ITS ---
HPI - SOB/Dyspnea General Chief Complaint: Dyspnea Stated Complaint: DIFF BREATHING,LADARIUS LE SWELLING,ON CPAP PER EMS Time Seen by Provider: 11/05/21 21:14 Source: patient and EMS Mode of arrival: EMS Limitations: no limitations History of Present Illness HPI Narrative: Patient is 76 years old with history of end-stage renal disease on dialysis , diabetes on insulin, hypothyroidism, hypertension, with history of AFib on Eliquis and diltiazem comes here for 3 days of shortness of breath after she had dialysis which is gradually getting worse today she had more tightness in the lungs with worsening of shortness of breath patient was placed on CPAP by EMS as she was saturating 90% on room air. Patient denied any fever/ cough on arrival patient's blood pressure was 208/99 with pulse rate of 74 sinus rhythm. Related Data Home Medications Medication Instructions Recorded Confirmed acetaminophen 325 mg tablet 650 mg PO Q6H PRN 05/21/21 08/05/21 ferrous sulfate 325 mg (65 mg 325 mg PO DAILY 05/21/21 08/05/21 iron) tablet sodium chloride 0.65 % nasal spray 1 spray INTRANASAL Q2H PRN 05/21/21 08/05/21 aerosol (Saline Nasal) cyanocobalamin (vitamin B-12) 1,000 mcg PO DAILY 07/30/21 08/05/21 1,000 mcg tablet melatonin 5 mg tablet 5 mg PO BEDTIME PRN 07/30/21 08/05/21 nystatin 100,000 unit/gram topical 1 appl TOPICAL BID 07/30/21 08/05/21 powder aspirin 81 mg tablet,delayed 1 tab PO DAILY 11/06/21 11/06/21 release atorvastatin 40 mg tablet 1 tab PO BEDTIME 11/06/21 11/06/21 cholecalciferol (vitamin D3) 25 1 tab PO DAILY 11/06/21 11/06/21 mcg (1,000 unit) tablet cyanocobalamin (vitamin B-12) 1 ml IM Q4W 11/06/21 11/06/21 1,000 mcg/mL injection solution cyanocobalamin (vitamin B-12) 1,000 mcg SUBCUT QMONTH 11/06/21 11/06/21 1,000 mcg/mL injection solution diltiazem HCl 180 mg 1 cap PO DAILY 11/06/21 11/06/21 capsule,extended release 24 hr ferrous sulfate 325 mg (65 mg 325 mg PO DAILY 11/06/21 11/06/21 iron) tablet gabapentin 100 mg capsule 1 cap PO BEDTIME 11/06/21 11/06/21 insulin glargine 100 unit/mL 8 unit SUBCUT 11/06/21 subcutaneous solution (Lantus U-100 Insulin) insulin lispro 100 unit/mL 2 - 10 unit SUBCUT QID 11/06/21 11/06/21 subcutaneous pen levothyroxine 25 mcg capsule 1 cap PO QAM 11/06/21 11/06/21 loratadine 10 mg tablet 1 tab PO DAILY 11/06/21 11/06/21 melatonin 5 mg tablet 5 mg PO BEDTIME PRN 11/06/21 11/06/21 montelukast 10 mg tablet 1 tab PO BEDTIME 11/06/21 11/06/21 pantoprazole 20 mg tablet,delayed 1 tab PO DAILY 11/06/21 11/06/21 release psyllium husk (aspartame) 3.4 gram 1 packet PO DAILY 11/06/21 11/06/21 oral powder packet (Metamucil Fiber Singles) sodium chloride 0.65 % nasal spray 2 spray INTRANASAL Q2H PRN 11/06/21 11/06/21 aerosol (Saline Nasal) Previous Rx's Medication Instructions Recorded blood sugar diagnostic (FreeStyle #100 ea 04/13/21 Lite Strips) blood-glucose meter (FreeStyle #1 ea 04/13/21 Lite Meter) lancets 28 gauge (FreeStyle #100 ea 04/13/21 Lancets) psyllium husk (aspartame) 3.4 gram 3.4 g PO DAILY #30 ea 04/17/21 oral powder packet (Metamucil Fiber Singles) blood-glucose meter (FreeStyle #1 ea 04/26/21 Lite Meter) montelukast 10 mg tablet 10 mg PO BEDTIME #30 tab 05/05/21 atorvastatin 40 mg tablet 40 mg PO BEDTIME #30 tab 07/19/21 pen needle, diabetic 32 gauge x #50 ea 07/19/21 (BD Sandra 2nd Gen Pen Needle) diltiazem HCl 180 mg 180 mg PO DAILY #90 cap 08/01/21 capsule,extended release 24 hr (Cartia XT) TRANSPORT WHEELCHAIR #1 ea 08/03/21 blood pressure monitor #1 ea 08/03/21 cholecalciferol (vitamin D3) 25 25 mcg PO DAILY #90 tab 08/06/21 mcg (1,000 unit) tablet loratadine 10 mg tablet 10 mg PO DAILY #90 tab 08/06/21 aspirin 81 mg tablet,delayed 81 mg PO DAILY #90 tab 08/07/21 release apixaban 5 mg tablet (Eliquis) 5 mg PO BID #60 tab 08/14/21 insulin glargine 100 unit/mL (3 8 unit (0.08 mL) SUBCUT QPM #15 ml 08/15/21 mL) subcutaneous pen levothyroxine 25 mcg capsule 25 mcg PO QAM #30 cap 10/05/21 pantoprazole 20 mg tablet,delayed 20 mg PO DAILY #90 tab 10/15/21 release blood sugar diagnostic (FreeStyle #300 ea 10/24/21 Lite Strips) gabapentin 100 mg capsule 100 mg PO BEDTIME 30 Days #30 cap 10/24/21 insulin lispro 100 unit/mL 2 - 10 unit (0.02 - 0.1 mL) SUBCUT 10/24/21 subcutaneous pen QID #15 ml Allergies Allergy/AdvReac Type Severity Reaction Status Date / Time No Known Allergies Allergy Verified 08/05/21 02:19 Review of Systems Review of Systems: Yes all other systems are reviewed and are negative [facility] Past Medical History Medical History Acute pericardial effusion Anemia Anemia Arthritis Atrial fibrillation Benign essential hypertension CAD (coronary artery disease) Chronic kidney disease, stage V End stage kidney disease ESRD (end stage renal disease) GERD (gastroesophageal reflux disease) HLD (hyperlipidemia) Hypothyroidism Iron deficiency Nephrotic range proteinuria Obese Obesity (BMI 30-39.9) Osteoarthritis PAF (paroxysmal atrial fibrillation) Paroxysmal atrial fibrillation Pernicious anemia Pure hypercholesterolemia Renal failure Toe amputee Type 2 diabetes mellitus Surgical History Hx of appendectomy Social History Social History Household Members: None Household Members Other:: self, son lives close by Housing: House Do you presently have visiting nurse or other home services: No Alcohol intake: never Patient Tobacco Use Status: Never used Tobacco Tobacco use type: Cigarette e-Cigarette/Vaping Use: Never Used Second Hand Smoke Exposure: No Advance Directives: No Advance Directives Information Provided: No service: No Current occupational status: retired Physical Exam Vital Signs: Vital Signs: Last Vital Signs Temp 97.8 F 11/05/21 22:02 Pulse 78 11/06/21 00:04 Resp 26 H 11/06/21 00:04 BP 131/74 11/06/21 00:04 Pulse Ox 98 11/06/21 00:04 BMI result Body Mass Index 48.8 Appearance: Alert. Oriented X3. in moderate respiratory distress on CPAP pressure of 5 mm of mercury Eyes: No pallor or icterus ENT: Pharynx normal. Oral Mucosa moist Neck: Normal inspection. Neck supple. CVS: Normal heart rate and rhythm. Pulses normal. Respiratory: moderate respiratory distress with bilateral crackles Equal air entry bilateral, no wheezing Abdomen: Soft and nontender. Bowel sounds are present, no mass palpable, no CVA tenderness Skin: Skin warm and dry. Normal skin color. Normal skin turgor. Extremities:3+ lower extremity edema. No calf tenderness Neuro: Oriented X 3. No motor deficit. No sensory deficit.No cerebellar signs , cranial nerves II-XII intact MDM - SOB/Dyspnea MDM Narrative Medical decision making narrative: patient with accelerated hypertension with flare up of CHF responded to short- term CPAP and nitropaste and 100 mg of Lasix. Patient urinated about 250 cc of urine saturating 97% on 2 L nasal cannula will admit patient for further evaluation plan to get dialysis in the morning Lab Data Attestation: I reviewed the patient's lab results. Result diagrams: 11/05/21 21:25 11/05/21 21:25 Labs: Lab Results 11/05/21 11/05/21 11/05/21 Range/Units 21:25 21:25 21:25 WBC 11.0 H (4.8-10.8) X10*3/uL RBC 3.85 L (4.20-5.50) X10*6/uL Hgb 11.4 L D (12.0-16.0) g/dl Hct 35.2 L (37.0-47.0) % MCV 91.4 (80.0-98.0) fL MCH 29.6 (27.0-33.0) pg MCHC 32.4 (31.0-35.0) g/dl RDW 15.0 (11.0-16.0) % Plt Count 177 D (160-400) X10*3/uL MPV 10.4 (9.4-12.3) fL Immature Gran % (Auto) 0.3 (0.0-0.4) % Neut % (Auto) 78.1 H (45-73) % Lymph % (Auto) 8.8 L (20-40) % [place] % (Auto) 6.0 (2-11) % Eos % (Auto) 6.4 H (0-4) % Baso % (Auto) 0.4 (0-2) % Lymph # (Auto) 1.0 L (1.2-4.9) X10*3/uL [place] # (Auto) 0.7 (0.1-1.2) X10*3/uL Eos # (Auto) 0.7 H (0.0-0.4) X10*3/uL Baso # (Auto) 0.0 (0.0-0.2) X10*3/uL Abs Immat Gran (auto) 0.03 (0.00-0.03) X10*3/uL Absolute Neuts (auto) 8.6 H (2.0-8.3) x10*3/uL Absolute Nucleated RBC 0.000 (0.0-0.012) X10*3/uL Nucleated RBC % (auto) 0.0 (0.0-0.2) /100WBC PT 15.7 H (9.9-13.0) SEC INR 1.4 H (0.9-1.1) Sodium 128 L (135-145) mmol/L Potassium 4.9 (3.3-5.1) mmol/L Chloride 96 (96-108) mmol/L Carbon Dioxide 20 L (22-29) mmol/L Anion Gap 17 (12-20) BUN 65 H D (9-16) mg/dL Creatinine 4.68 H* (0.5-1.4) mg/dL Estim Creat Clear Calc 12.1 Estimated GFR 9 Random Glucose 213 H (60-115) mg/dL Calcium 8.4 D (8.4-10.2) mg/dL Total Bilirubin 0.7 (0.0-1.0) mg/dL AST 19 (5-31) U/L ALT 32 H (0-31) U/L Alkaline Phosphatase 152 H D (39-117) U/L Troponin I High Sens (<3.5-17.0) ng/L B-Natriuretic Peptide (<100) pg/mL Total Protein 6.9 (6.5-8.0) g/dL Albumin 3.8 (3.5-5.0) g/dL Urine Color Urine Appearance Urine pH (5.0-8.0) Ur Specific [place] (1.005-1.025) Urine Protein (NEG-TRACE) MG/DL Urine Glucose (UA) (NEG) MG/DL Urine Ketones (NEG) MG/DL Urine Blood (NEG) Urine Nitrite (NEG) Ur Leukocyte Esterase (NEG) Urine RBC (0) /HPF Urine WBC (0-4) /HPF Ur Squamous Epith Cells /LPF Urine Bacteria /LPF COVID-19 ([facility]) (Negative) COVID-19 Clin Com 11/05/21 11/05/21 11/05/21 Range/Units 21:25 21:25 22:38 WBC (4.8-10.8) X10*3/uL RBC (4.20-5.50) X10*6/uL Hgb (12.0-16.0) g/dl Hct (37.0-47.0) % MCV (80.0-98.0) fL MCH (27.0-33.0) pg MCHC (31.0-35.0) g/dl RDW (11.0-16.0) % Plt Count (160-400) X10*3/uL MPV (9.4-12.3) fL Immature Gran % (Auto) (0.0-0.4) % Neut % (Auto) (45-73) % Lymph % (Auto) (20-40) % [place] % (Auto) (2-11) % Eos % (Auto) (0-4) % Baso % (Auto) (0-2) % Lymph # (Auto) (1.2-4.9) X10*3/uL [place] # (Auto) (0.1-1.2) X10*3/uL Eos # (Auto) (0.0-0.4) X10*3/uL Baso # (Auto) (0.0-0.2) X10*3/uL Abs Immat Gran (auto) (0.00-0.03) X10*3/uL Absolute Neuts (auto) (2.0-8.3) x10*3/uL Absolute Nucleated RBC (0.0-0.012) X10*3/uL Nucleated RBC % (auto) (0.0-0.2) /100WBC PT (9.9-13.0) SEC INR (0.9-1.1) Sodium (135-145) mmol/L Potassium (3.3-5.1) mmol/L Chloride (96-108) mmol/L Carbon Dioxide (22-29) mmol/L Anion Gap (12-20) BUN (9-16) mg/dL Creatinine (0.5-1.4) mg/dL Estim Creat Clear Calc Estimated GFR Random Glucose (60-115) mg/dL Calcium (8.4-10.2) mg/dL Total Bilirubin (0.0-1.0) mg/dL AST (5-31) U/L ALT (0-31) U/L Alkaline Phosphatase (39-117) U/L Troponin I High Sens 53.9 H* D (<3.5-17.0) ng/L B-Natriuretic Peptide 651 H (<100) pg/mL Total Protein (6.5-8.0) g/dL Albumin (3.5-5.0) g/dL Urine Color YELLOW Urine Appearance CLEAR Urine pH 6.5 (5.0-8.0) Ur Specific [place] 1.010 (1.005-1.025) Urine Protein 3+ H (NEG-TRACE) MG/DL Urine Glucose (UA) 100 H (NEG) MG/DL Urine Ketones NEG (NEG) MG/DL Urine Blood 1+ H (NEG) Urine Nitrite NEG (NEG) Ur Leukocyte Esterase NEG (NEG) Urine RBC 1-4 (0) /HPF Urine WBC 1-4 (0-4) /HPF Ur Squamous Epith Cells TRACE /LPF Urine Bacteria 1+ /LPF COVID-19 ([facility]) Negative (Negative) COVID-19 Clin Com See Note Critical Care Time Critical Care Time Critical Care Time: Yes Total Critical Care Time: 55 Attestation: I spent 55 minutes of critical care, with interventions, assessments, speaking to patient, consultants, and family. Discharge Plan Discharge Clinical Impression: Acute exacerbation of CHF (congestive heart failure), Hypoxia, ESRD on dialysis Patient Disposition: Admitted As Inpatient
--- NOTE | 2021-11-05 21:15 | ECG_ITS ---
Test Reason : DYSPENA Blood Pressure : / mmHG Vent. Rate : 074 BPM Atrial Rate : 074 BPM P-R Int : 190 ms QRS Dur : 090 ms QT Int : 410 ms P-R-T Axes : 045 044 039 degrees QTc Int : 455 ms Normal sinus rhythm Normal ECG When compared with ECG of 16-AUG-2021 07:46, Sinus rhythm has replaced Atrial flutter Vent. rate has decreased BY 51 BPM Nonspecific T wave abnormality no longer evident in Inferior leads Nonspecific T wave abnormality no longer evident in Lateral leads Referred By: Gabriel Bowles Electronically Signed By:BETY NIÑO
[2021-11-05 21:16] VITALS: BP 171/100; PULSE 100; O2SAT 100
[2021-11-05 21:18] VITALS: BP 208/99; PULSE 75; RESP 36; TEMP 35.7; O2SAT 100; BMI 48.8
[2021-11-05 21:57] LABS: COVID-19 Test Negative (Negative); IDNOW Serial# 55D5AD1C
[2021-11-05 22:00] LABS: MANUAL DIFF FLAG NO
[2021-11-05 22:02] VITALS: BP 141/97; PULSE 75; RESP 18; TEMP 36.6; O2SAT 100
[2021-11-05 22:03] LABS: Basophils Percent Auto 0.4 % (0-2); Eosinophils Absolute Auto 0.7 X10*3/uL (0.0-0.4); Eosinophils Percent Auto 6.4 % (0-4); Hematocrit 35.2 % (37.0-47.0); Hemoglobin 11.4 g/dl (12.0-16.0); Imm Gran Abs Auto 0.03 X10*3/uL (0.00-0.03); Imm Gran Pct Auto 0.3 % (0.0-0.4); Lymphocytes Percent Auto 8.8 % (20-40); Mean Corpuscular HGB Conc 32.4 g/dl (31.0-35.0); Mean Corpuscular Hemoglobin 29.6 pg (27.0-33.0); Mean Corpuscular Volume 91.4 fL (80.0-98.0); Mean Platelet Volume 10.4 fL (9.4-12.3); Monocytes Absolute Auto 0.7 X10*3/uL (0.1-1.2); Neutrophils Absolute Auto 8.6 x10*3/uL (2.0-8.3); Neutrophils Percent Auto 78.1 % (45-73); Platelet Count 177 X10*3/uL (160-400); Red Blood Count 3.85 X10*6/uL (4.20-5.50)
[2021-11-05 22:10] LABS: INTERNATIONAL NORM RATIO 1.4 (0.9-1.1); Prothrombin Time 15.7 SEC (9.9-13.0)
--- NOTE | 2021-11-05 22:13 | PC.NURSE ---
Indwelling Almaguer catheter inserted per Dr. Bowles
[2021-11-05] MEDS: Furosemide 100 MG/10 ML VIAL 60 MG IVPUSH (22:19)
[2021-11-05] MEDS: Nitroglycerin 2 % Oint 1 GM Packet 1 INCH TRANSDERMA (22:20)
[2021-11-05 22:32] VITALS: BP 209/114
[2021-11-05 22:34] LABS: Alanine Aminotransferase 32 U/L (0-31); Albumin Level 3.8 g/dL (3.5-5.0); Alkaline Phosphatase 152 U/L (39-117); Anion Gap 17 (12-20); Aspartate Amino Transferase 19 U/L (5-31); B Type Natriuretic Peptide 651 pg/mL (<100); Bilirubin Total 0.7 mg/dL (0.0-1.0); Blood Urea Nitrogen 65 mg/dL (9-16); Calcium 8.4 mg/dL (8.4-10.2); Carbon Dioxide 20 mmol/L (22-29); Chloride 96 mmol/L (96-108); Creatinine Clr Calc Pharmacy 12.1; Estimated Glomerular Filt Rate 9; Glucose Random 213 mg/dL (60-115); Potassium 4.9 mmol/L (3.3-5.1); Sodium 128 mmol/L (135-145); Total Protein 6.9 g/dL (6.5-8.0); Troponin-I High Sensitivity 53.9 ng/L (<3.5-17.0)
[2021-11-05] MEDS: Furosemide 40 MG/4 ML VIAL IVPUSH (22:51)
[2021-11-05] MEDS: hydrALAZINE HCl 20 MG/ML VIAL 10 MG IVPUSH (22:51)
[2021-11-05 22:53] VITALS: BP 174/66; PULSE 75; RESP 28; O2SAT 98
[2021-11-05 22:59] LABS: Appearance Urine CLEAR; Color Urine YELLOW; Glucose Urine UA 100 MG/DL (NEG); Leukocyte Esterase Urine NEG (NEG); Nitrite Urine NEG (NEG); PH 6.5 (5.0-8.0); UACC Culture Trigger NO; Urine Blood 1+ (NEG); Urine Ketones NEG (NEG); Urine Protein 3+ MG/DL (NEG-TRACE)
[2021-11-05 23:09] VITALS: BP 156/92; PULSE 76; RESP 28; O2SAT 98
[2021-11-05 23:19] LABS: Bacteria Urine 1+ /LPF; Squamous Epithelial Cell Urine TRACE /LPF
[2021-11-06 00:04] VITALS: BP 131/74; PULSE 78; RESP 26; O2SAT 98
--- NOTE | 2021-11-06 00:16 | PM.IMHP ---
History of Present Illness Date of Service: 11/06/21 Chief Complaint: SOB 76Y old female with a past history of hypertension, hyperlipidemia, diabetes ESRD on hemodialysis anemia, arthritis AFib/history of DVT on Eliquis coronary artery disease, history of toe amputations; presented to the hospital chief complaint shortness of breath. Patient reports that over the past 3 days she has been shortness of breath which has been gradually worsening. Denies any fever chills. Denies any chest pain or palpitations. Denies missing her hemodialysis session. Denies any GI symptoms. Review of all other systems is negative except mentioned above ER course: Per ER team patient noted to be in fluid overload; given a dose of Lasix; labs consistent with elevated today creatinine with normal potassium the and bicarb; also reported that patient was on CPAP in button by the EMS currently transitioned to nasal cannula at 2 L; Admitted for further management [facility] Medical History Acute pericardial effusion Anemia Anemia Arthritis Atrial fibrillation Benign essential hypertension CAD (coronary artery disease) Chronic kidney disease, stage V End stage kidney disease ESRD (end stage renal disease) GERD (gastroesophageal reflux disease) HLD (hyperlipidemia) Hypothyroidism Iron deficiency Nephrotic range proteinuria Obese Obesity (BMI 30-39.9) Osteoarthritis PAF (paroxysmal atrial fibrillation) Paroxysmal atrial fibrillation Pernicious anemia Pure hypercholesterolemia Renal failure Toe amputee Type 2 diabetes mellitus Surgical History Hx of appendectomy Social History Household Members: None Household Members Other:: self, son lives close by Housing: House Do you presently have visiting nurse or other home services: No Alcohol intake: never Patient Tobacco Use Status: Never used Tobacco Tobacco use type: Cigarette e-Cigarette/Vaping Use: Never Used Second Hand Smoke Exposure: No Advance Directives: No Advance Directives Information Provided: No service: No Current occupational status: retired Meds Allergies Allergy/AdvReac Type Severity Reaction Status Date / Time No Known Allergies Allergy Verified 08/05/21 02:19 Active Medications: Current Medications Acetaminophen (Acetaminophen 325 Mg Tablet) 650 mg PO Q6H PRN PRN Reason: Pain, Mild (Pain Scale 1-3) Dextrose (Dextrose 50 % 25 Gm/50 Ml Syringe) 25 gm IVPUSH Q15M PRN; Protocol PRN Reason: per Hypoglycemia Standing Ord. Glucose (Glucose Gel 15 Gm Gel..Gram.) 15 gm PO Q15M PRN; Protocol PRN Reason: per Hypoglycemia Standing Ord. Insulin Human Lispro (Insulin Lispro 100 Unit/Ml 3 Ml Vial) 0 unit SUBCUT QIDACHS MARKIE; Protocol Melatonin (Melatonin 3 Mg Tablet) 6 mg PO BEDTIME PRN PRN Reason: Insomnia Morphine Sulfate (Morphine Sulfate 4 Mg/Ml Cartridge) 1 mg IVPUSH Q4H PRN; Protocol PRN Reason: Pain, SOB Senna (Sennosides 8.6 Mg Tablet) 17.2 mg PO BEDTIME PRN PRN Reason: Constipation Sodium Chloride (0.9 % Sodium Chloride Flush 3 Ml Syringe) 3 ml IVFLUSH QSHIFT MARKIE Sodium Chloride (0.9 % Sodium Chloride Flush 3 Ml Syringe) 3 ml IVFLUSH QSHIFT MARKIE Home Medications Medication Instructions Recorded Confirmed Last Taken Type acetaminophen 325 mg tablet 650 mg PO Q6H PRN 05/21/21 08/05/21 Unknown History ferrous sulfate 325 mg (65 mg 325 mg PO DAILY 05/21/21 08/05/21 07/30/21 History iron) tablet sodium chloride 0.65 % nasal spray 1 spray INTRANASAL Q2H PRN 05/21/21 08/05/21 Unknown History aerosol (Saline Nasal) cyanocobalamin (vitamin B-12) 1,000 mcg PO DAILY 07/30/21 08/05/21 Unknown History 1,000 mcg tablet melatonin 5 mg tablet 5 mg PO BEDTIME PRN 07/30/21 08/05/21 Unknown History nystatin 100,000 unit/gram topical 1 appl TOPICAL BID 07/30/21 08/05/21 Unknown History powder Physical Exam Vital Signs and Narrative: Vital Signs: Last Vital Signs Temp 97.8 F 11/05/21 22:02 Pulse 78 11/06/21 00:04 Resp 26 H 11/06/21 00:04 BP 131/74 11/06/21 00:04 Pulse Ox 98 11/06/21 00:04 BMI result Body Mass Index 48.8 Gen: Appears be in no acute distress. On supplemental oxygen. Speaks in full sentences. HEENT: NCAT, Moist mucosa. Pulmonary: Crackles present CVS: Normal S1-S2 Abdomen: BS+, Soft, Nontender Extremities: Warm well perfused Neuro: Alert and awake. Results Labs CBC and Chem 7: 11/05/21 21:25 11/05/21 21:25 Labs: Laboratory Results - last 24 hr 11/05/21 11/05/21 11/05/21 21:25 21:25 21:25 MCV 91.4 MCH 29.6 MCHC 32.4 RDW 15.0 Plt Count 177 D MPV 10.4 Immature Gran % (Auto) 0.3 Neut % (Auto) 78.1 H Lymph % (Auto) 8.8 L [place] % (Auto) 6.0 Eos % (Auto) 6.4 H Baso % (Auto) 0.4 Lymph # (Auto) 1.0 L [place] # (Auto) 0.7 Eos # (Auto) 0.7 H Baso # (Auto) 0.0 Abs Immat Gran (auto) 0.03 Absolute Neuts (auto) 8.6 H Absolute Nucleated RBC 0.000 Nucleated RBC % (auto) 0.0 PT 15.7 H INR 1.4 H Anion Gap 17 Estim Creat Clear Calc 12.1 Estimated GFR 9 Random Glucose 213 H Calcium 8.4 D Total Bilirubin 0.7 AST 19 ALT 32 H Alkaline Phosphatase 152 H D Troponin I High Sens B-Natriuretic Peptide Total Protein 6.9 Albumin 3.8 Urine Color Urine Appearance Urine pH Ur Specific [place] Urine Protein Urine Glucose (UA) Urine Ketones Urine Blood Urine Nitrite Ur Leukocyte Esterase Urine RBC Urine WBC Ur Squamous Epith Cells Urine Bacteria COVID-19 (GLENNA) COVID-19 Clin Com 11/05/21 11/05/21 11/05/21 21:25 21:25 22:38 MCV MCH MCHC RDW Plt Count MPV Immature Gran % (Auto) Neut % (Auto) Lymph % (Auto) [place] % (Auto) Eos % (Auto) Baso % (Auto) Lymph # (Auto) [place] # (Auto) Eos # (Auto) Baso # (Auto) Abs Immat Gran (auto) Absolute Neuts (auto) Absolute Nucleated RBC Nucleated RBC % (auto) PT INR Anion Gap Estim Creat Clear Calc Estimated GFR Random Glucose Calcium Total Bilirubin AST ALT Alkaline Phosphatase Troponin I High Sens 53.9 H* D B-Natriuretic Peptide 651 H Total Protein Albumin Urine Color YELLOW Urine Appearance CLEAR Urine pH 6.5 Ur Specific [place] 1.010 Urine Protein 3+ H Urine Glucose (UA) 100 H Urine Ketones NEG Urine Blood 1+ H Urine Nitrite NEG Ur Leukocyte Esterase NEG Urine RBC 1-4 Urine WBC 1-4 Ur Squamous Epith Cells TRACE Urine Bacteria 1+ COVID-19 (GLENNA) Negative COVID-19 Clin Com See Note Imaging Radiologist's Impressions: Impressions Chest X-Ray 11/05/21 21:38 IMPRESSION: Dialysis catheter tip overlying the right atrium. Central vascular prominence increased from the prior study. Component of mild fluid overload cannot be excluded. Assessment and Plan (1) Fluid overload: Status: Acute Plan 76Y old female with a past history of hypertension, hyperlipidemia, diabetes ESRD on hemodialysis anemia, arthritis AFib/history of VTE on Eliquis coronary artery disease, history of toe amputations; presented to the hospital chief complaint shortness of breath. Shortness of breath: In the setting of fluid overload. Chest x-ray showed congestion. Patient received a dose of Lasix in the ER. . EKG nonischemic Troponin: 50-repeat troponin pending ESR D: Nephrology consult Hyponatremia: Will consult Nephrology for further recommendations. Will obtain serum osmolality and urine osmolality. Diabetes: Insulin sliding scale Hypertension/hyperlipidemia: Patient blood pressure is slightly on high side on presentation to the ER. Received hydralazine. Will continue home medication History of AFib: Rate controlled. Continue home Eliquis. DVT prophylaxis: Patient on Eliquis Code status: Full code Quality Stroke Does the patient have a stroke diagnosis?: No VTE Prior VTE?: No VTE Risk Level:: Medical - moderate - high VTE Device Contraindication: Treatment Not Indicated VTE Drug Contraindication: N/A - Med Ordered
--- NOTE | 2021-11-06 01:28 | PC.NURSE ---
Addendum entered by Hal Vanegas RN 11/06/21 01:29: Report called to Ale HUYNH in the overflow unit. Original Note: Report called to Ale HUYNH.
[2021-11-06 01:30] LABS: Troponin-I High Sensitivity 50.4 ng/L (<3.5-17.0)
--- NOTE | 2021-11-06 02:51 | PC.NURSE ---
PT TO ED OVERFLOW BED 7 AT 0215. PT TRANSFERRED FROM STRETCHER TO BED WITH 3 ASSISTS AND USE OF SLIDER. PT IS WEAK AND SHORT OF BREATH WITH EXERTION. O2 ON AT 2L VIA NC. O2 SAT 97-98%. MONITOR SHOWS NSR, RATE 70'S, OCC PVC NOTED. KEATING WITH 600 ML CLEAR YELLOW URINE.
[2021-11-06 03:15] VITALS: BP 159/74; PULSE 73; RESP 20; O2SAT 100
[2021-11-06 07:23] LABS: MANUAL DIFF FLAG NO
[2021-11-06 07:26] LABS: Basophils Percent Auto 0.4 % (0-2); Eosinophils Absolute Auto 0.4 X10*3/uL (0.0-0.4); Eosinophils Percent Auto 3.5 % (0-4); Hematocrit 29.4 % (37.0-47.0); Hemoglobin 9.5 g/dl (12.0-16.0); Imm Gran Abs Auto 0.05 X10*3/uL (0.00-0.03); Imm Gran Pct Auto 0.5 % (0.0-0.4); Lymphocytes Percent Auto 8.8 % (20-40); Mean Corpuscular HGB Conc 32.3 g/dl (31.0-35.0); Mean Corpuscular Volume 92.7 fL (80.0-98.0); Mean Platelet Volume 10.5 fL (9.4-12.3); Monocytes Absolute Auto 0.8 X10*3/uL (0.1-1.2); Monocytes Percent Auto 7.4 % (2-11); Neutrophils Absolute Auto 8.7 x10*3/uL (2.0-8.3); Neutrophils Percent Auto 79.4 % (45-73); Platelet Count 171 X10*3/uL (160-400); Red Blood Count 3.17 X10*6/uL (4.20-5.50); Red Cell Distribution Width 14.7 % (11.0-16.0); White Blood Count 10.9 X10*3/uL (4.8-10.8)
[2021-11-06 07:43] LABS: Anion Gap 17 (12-20); Blood Urea Nitrogen 69 mg/dL (9-16); Calcium 7.7 mg/dL (8.4-10.2); Carbon Dioxide 19 mmol/L (22-29); Chloride 98 mmol/L (96-108); Creatinine Clr Calc Pharmacy 11.6; Estimated Glomerular Filt Rate 9; Glucose Random 145 mg/dL (60-115); Potassium 4.7 mmol/L (3.3-5.1); Sodium 129 mmol/L (135-145)
--- NOTE | 2021-11-06 07:47 | PHA.MEDREC ---
Pharmacy Consult ? Medication Reconciliation Pharmacy has reviewed the medication reconciliation completed by Hal. I removed all duplicate medications. Per Dr Lonnie Khan last PCP visit note, patient to continue Eliquis therefore meidcation was confirmed. Amina Cordova, PharmD
[2021-11-06 07:52] LABS: Glucose, Whole Blood 138 mg/dL (60-115)
[2021-11-06 08:14] VITALS: BP 130/64; PULSE 83; RESP 21; TEMP 36.2; O2SAT 98
--- NOTE | 2021-11-06 09:37 | P.CONNP_ITS ---
History of Present Illness Reason for Consult Consult date: 11/06/21 Chief Complaint Chief complaint: fluid overload History of Present Illness Narrative: 76Y old female with ESRD on hemodialysis presents to hospital with shortness of breath which has been gradually getting worse without?any fever, chills, chest pain , palpitations or GI symptoms. She denies missing her hemodialysis session.? Evaluation done in the ER found her to be in fluid overload; She was put on CPAP and was admitted for further management. Nephrology was consulted to assist in her clinical care during her current hospital stay Review of Systems Review of Systems Yes all other systems are reviewed and are negative [facility] Past Medical History Medical History Acute pericardial effusion Anemia Anemia Arthritis Atrial fibrillation Benign essential hypertension CAD (coronary artery disease) Chronic kidney disease, stage V End stage kidney disease ESRD (end stage renal disease) GERD (gastroesophageal reflux disease) HLD (hyperlipidemia) Hypothyroidism Iron deficiency Nephrotic range proteinuria Obese Obesity (BMI 30-39.9) Osteoarthritis PAF (paroxysmal atrial fibrillation) Paroxysmal atrial fibrillation Pernicious anemia Pure hypercholesterolemia Renal failure Toe amputee Type 2 diabetes mellitus Surgical History Surgical History Hx of appendectomy Social History Social History Household Members: None Household Members Other:: self, son lives close by Housing: House Do you presently have visiting nurse or other home services: No Alcohol intake: never Patient Tobacco Use Status: Never used Tobacco Tobacco use type: Cigarette e-Cigarette/Vaping Use: Never Used Second Hand Smoke Exposure: No Advance Directives: No Advance Directives Information Provided: No service: No Current occupational status: retired [employer] Allergies Allergy/AdvReac Type Severity Reaction Status Date / Time No Known Allergies Allergy Verified 08/05/21 02:19 Active Medications: Current Medications Acetaminophen (Acetaminophen 325 Mg Tablet) 650 mg PO Q6H PRN PRN Reason: Pain, Mild (Pain Scale 1-3) Dextrose (Dextrose 50 % 25 Gm/50 Ml Syringe) 25 gm IVPUSH Q15M PRN; Protocol PRN Reason: per Hypoglycemia Standing Ord. Glucose (Glucose Gel 15 Gm Gel..Gram.) 15 gm PO Q15M PRN; Protocol PRN Reason: per Hypoglycemia Standing Ord. Heparin Sodium (Porcine) (Heparin Sodium,Porcine 5,000 Unit/Ml Vial) 5,000 unit INTRACATH TUTHSA@1645 [facility] Insulin Human Lispro (Insulin Lispro 100 Unit/Ml 3 Ml Vial) 0 unit SUBCUT QIDACHS [facility]; Protocol Last Admin: 11/06/21 07:45 Dose: Not Given Documented by: Melatonin (Melatonin 3 Mg Tablet) 6 mg PO BEDTIME PRN PRN Reason: Insomnia Morphine Sulfate (Morphine Sulfate 4 Mg/Ml Cartridge) 1 mg IVPUSH Q4H PRN; P rotocol PRN Reason: Pain, SOB Senna (Sennosides 8.6 Mg Tablet) 17.2 mg PO BEDTIME PRN PRN Reason: Constipation Sodium Chloride (0.9 % Sodium Chloride Flush 3 Ml Syringe) 3 ml IVFLUSH [facility] Last Admin: 11/06/21 09:09 Dose: Not Given Documented by: Sodium Chloride (0.9 % Sodium Chloride Flush 3 Ml Syringe) 3 ml IVFLUSH [facility] Last Admin: 11/06/21 09:09 Dose: Not Given Documented by: Home Medications Medication Instructions Recorded Confirmed Last Taken Type acetaminophen 325 mg tablet 650 mg PO Q6H PRN 05/21/21 11/06/21 Unknown History aspirin 81 mg tablet,delayed 1 tab PO DAILY 11/06/21 11/06/21 Unknown History release atorvastatin 40 mg tablet 1 tab PO BEDTIME 11/06/21 11/06/21 Unknown History cholecalciferol (vitamin D3) 25 1 tab PO DAILY 11/06/21 11/06/21 Unknown History mcg (1,000 unit) tablet cyanocobalamin (vitamin B-12) 1 ml IM Q4W 11/06/21 11/06/21 Unknown History 1,000 mcg/mL injection solution diltiazem HCl 180 mg 1 cap PO DAILY 11/06/21 11/06/21 Unknown History capsule,extended release 24 hr ferrous sulfate 325 mg (65 mg 325 mg PO DAILY 11/06/21 11/06/21 Unknown History iron) tablet gabapentin 100 mg capsule 1 cap PO BEDTIME 11/06/21 11/06/21 Unknown History insulin glargine 100 unit/mL 8 unit SUBCUT 11/06/21 Unknown History subcutaneous solution (Lantus U-100 Insulin) insulin lispro 100 unit/mL 2 - 10 unit SUBCUT QIDACHS 11/06/21 11/06/21 Unknown History subcutaneous pen levothyroxine 25 mcg capsule 1 cap PO QAM 11/06/21 11/06/21 Unknown History loratadine 10 mg tablet 1 tab PO DAILY 11/06/21 11/06/21 Unknown History melatonin 5 mg tablet 5 mg PO BEDTIME PRN 11/06/21 11/06/21 Unknown History montelukast 10 mg tablet 1 tab PO BEDTIME 11/06/21 11/06/21 Unknown History pantoprazole 20 mg tablet,delayed 1 tab PO DAILY 11/06/21 11/06/21 Unknown History release psyllium husk (aspartame) 3.4 gram 1 packet PO DAILY 11/06/21 11/06/21 Unknown History oral powder packet (Metamucil Fiber Singles) sodium chloride 0.65 % nasal spray 2 spray INTRANASAL Q2H PRN 11/06/21 11/06/21 Unknown History aerosol (Saline Nasal) Physical Exam Vital Signs: Last Vital Signs Temp 97.1 F 11/06/21 08:14 Pulse 83 11/06/21 08:14 Resp 21 H 11/06/21 08:14 BP 130/64 11/06/21 08:14 Pulse Ox 98 11/06/21 08:14 BMI result Body Mass Index 48.8 Const General: no acute distress Eyes EOM: EOMs intact bilaterally Neck Neck: Yes no lymphadenopathy Resp Auscultation: diminished lung sounds Cardio Rate: regular rate GI Palpation (GI): Soft to palpation Neuro General: moves all extremities Results Lab Results Result Diagrams: 11/06/21 07:09 11/06/21 07:09 Lab results: Chemistry 11/05/21 11/06/21 21:25 07:09 Sodium 128 L 129 L Potassium 4.9 4.7 Carbon Dioxide 20 L 19 L BUN 65 H D 69 H Creatinine 4.68 H* 4.87 H* Calcium 8.4 D 7.7 L D Hematology 11/05/21 11/06/21 21:25 07:09 WBC 11.0 H 10.9 H Hgb 11.4 L D 9.5 L Plt Count 177 D 171 Urinalysis 11/05/21 22:38 Urine Color YELLOW Urine Appearance CLEAR Urine pH 6.5 Ur Specific [place] 1.010 Urine Protein 3+ H Urine Glucose (UA) 100 H Urine Ketones NEG Urine Blood 1+ H Urine Nitrite NEG Ur Leukocyte Esterase NEG Urine RBC 1-4 Urine WBC 1-4 Ur Squamous Epith Cells TRACE Assessment and Plan (1) ESRD on dialysis: Status: Acute Plan Usually gets HD on TTS Shall put her on HD schedule today Continued volume optimization on HD Needs to bring dry weight down 2 Gram Na/ 2 Gram K/ Phos restricted diet with fluid restriction Shall continue to closely follow up Seen on HD again. D/W HD RN. Tolerating HD well Procedures Date of Service Date of Service: 11/06/21
--- NOTE | 2021-11-06 09:55 | PC.NURSE ---
pt taken to dialysis. morning meds held, vss
--- NOTE | 2021-11-06 10:13 | MHC.CM.PN ---
CM attempted to reach Patient by phone at [phone], but reached Patient's Son/HCP/Caregiver/Jason instead. (IMM addressed with Jason(Patient apparently has very poor eye sight) and original will be mailed to him and a copy will be placed on the chart). Patient lives alone but Jason assists her with all her needs; Patient uses a walker and a w/c. Home/resume family support is the goal and CM has initiated and will follow for dc planning. PCP is Dr. Khan and Patient has received [employer] vax X3. Patient attends HD q T,TH,SAT at [facility].
--- NOTE | 2021-11-06 13:00 | PC.NURSE ---
pt returned from dialysis. pt reports feeling tired, denies headache/sob/dizziness. no abdominal pain, no n/v. ate lunch. vss.
[2021-11-06 13:14] VITALS: BP 132/60; PULSE 137; RESP 18; TEMP 36.8; O2SAT 99
[2021-11-06 13:22] LABS: Glucose, Whole Blood 104 mg/dL (60-115)
[2021-11-06] MEDS: Morphine Sulfate 4 MG/ML CARTRIDGE 1 MG IVPUSH (15:04)
[2021-11-06 16:43] VITALS: PULSE 89; RESP 17; TEMP 36.7; O2SAT 99
--- NOTE | 2021-11-06 17:19 | HO.PM.IMPN ---
Subjective Subjective Date of Service: 11/06/21 Interval History: Possible fluid overload secondary to ESRD. Review of Systems Patient was seen earlier by hospitalist service. Denies any chest pain Shortness of breath improving Denies any nausea vomiting or abdominal pain or fever or chills. Physical Exam Vital Signs: Vital Signs: Last Vital Signs Temp 98.0 F 11/06/21 16:43 Pulse 89 11/06/21 16:43 Resp 17 11/06/21 16:43 BP 132/60 11/06/21 13:14 Pulse Ox 99 11/06/21 16:43 BMI result Body Mass Index 48.8 Gen: Appears be in no acute distress.? On supplemental oxygen.? Speaks in full sentences. HEENT:? NCAT,? Moist mucosa. Pulmonary:? air entry seems seems diminshed ,few rales at bases. CVS:? Normal S1-S2 Abdomen: BS+, Soft, Nontender Extremities:? Warm well perfused Neuro:? Alert and awake, nonfocal. Objective Data Active Medications Acetaminophen (Acetaminophen 325 Mg Tablet) 650 mg PO Q6H PRN PRN Reason: Pain, Mild (Pain Scale 1-3) Dextrose (Dextrose 50 % 25 Gm/50 Ml Syringe) 25 gm IVPUSH Q15M PRN; Protocol PRN Reason: per Hypoglycemia Standing Ord. Glucose (Glucose Gel 15 Gm Gel..Gram.) 15 gm PO Q15M PRN; Protocol PRN Reason: per Hypoglycemia Standing Ord. Heparin Sodium (Porcine) (Heparin Sodium,Porcine 5,000 Unit/Ml Vial) 5,000 unit INTRACATH TUTHSA@1645 [facility] Insulin Human Lispro (Insulin Lispro 100 Unit/Ml 3 Ml Vial) 0 unit SUBCUT QIDACHS [facility]; Protocol Last Admin: 11/06/21 13:48 Dose: Not Given Documented by: TRENT Non-Admin Reason: No Insulin Coverage Melatonin (Melatonin 3 Mg Tablet) 6 mg PO BEDTIME PRN PRN Reason: Insomnia Morphine Sulfate (Morphine Sulfate 4 Mg/Ml Cartridge) 1 mg IVPUSH Q4H PRN; Protocol PRN Reason: Pain, SOB Last Admin: 11/06/21 15:04 Dose: 1 mg Documented by: TRENT Senna (Sennosides 8.6 Mg Tablet) 17.2 mg PO BEDTIME PRN PRN Reason: Constipation Sodium Chloride (0.9 % Sodium Chloride Flush 3 Ml Syringe) 3 ml IVFLUSH QSHIFT [facility] Last Admin: 11/06/21 09:09 Dose: Not Given Documented by: TRENT Non-Admin Reason: Off unit: Dialysis Sodium Chloride (0.9 % Sodium Chloride Flush 3 Ml Syringe) 3 ml IVFLUSH QSHIFT [facility] Last Admin: 11/06/21 09:09 Dose: Not Given Documented by: TRENT Non-Admin Reason: Off unit: Dialysis Labs CBC & Chem 7: 11/06/21 07:09 11/06/21 07:09 Labs: Laboratory Results - last 24 hr 11/05/21 11/05/21 11/05/21 21:25 21:25 21:25 MCV 91.4 MCH 29.6 MCHC 32.4 RDW 15.0 Plt Count 177 D MPV 10.4 Immature Gran % (Auto) 0.3 Neut % (Auto) 78.1 H Lymph % (Auto) 8.8 L [place] % (Auto) 6.0 Eos % (Auto) 6.4 H Baso % (Auto) 0.4 Lymph # (Auto) 1.0 L [place] # (Auto) 0.7 Eos # (Auto) 0.7 H Baso # (Auto) 0.0 Abs Immat Gran (auto) 0.03 Absolute Neuts (auto) 8.6 H Absolute Nucleated RBC 0.000 Nucleated RBC % (auto) 0.0 PT 15.7 H INR 1.4 H Anion Gap 17 Estim Creat Clear Calc 12.1 Estimated GFR 9 POC Glucose Random Glucose 213 H Calcium 8.4 D Total Bilirubin 0.7 AST 19 ALT 32 H Alkaline Phosphatase 152 H D Troponin I High Sens B-Natriuretic Peptide Total Protein 6.9 Albumin 3.8 Urine Color Urine Appearance Urine pH Ur Specific [place] Urine Protein Urine Glucose (UA) Urine Ketones Urine Blood Urine Nitrite Ur Leukocyte Esterase Urine RBC Urine WBC Ur Squamous Epith Cells Urine Bacteria COVID-19 (GLENNA) COVID-19 Clin Com 11/05/21 11/05/21 11/05/21 21:25 21:25 22:38 MCV MCH MCHC RDW Plt Count MPV Immature Gran % (Auto) Neut % (Auto) Lymph % (Auto) [place] % (Auto) Eos % (Auto) Baso % (Auto) Lymph # (Auto) [place] # (Auto) Eos # (Auto) Baso # (Auto) Abs Immat Gran (auto) Absolute Neuts (auto) Absolute Nucleated RBC Nucleated RBC % (auto) PT INR Anion Gap Estim Creat Clear Calc Estimated GFR POC Glucose Random Glucose Calcium Total Bilirubin AST ALT Alkaline Phosphatase Troponin I High Sens 53.9 H* D B-Natriuretic Peptide 651 H Total Protein Albumin Urine Color YELLOW Urine Appearance CLEAR Urine pH 6.5 Ur Specific [place] 1.010 Urine Protein 3+ H Urine Glucose (UA) 100 H Urine Ketones NEG Urine Blood 1+ H Urine Nitrite NEG Ur Leukocyte Esterase NEG Urine RBC 1-4 Urine WBC 1-4 Ur Squamous Epith Cells TRACE Urine Bacteria 1+ COVID-19 (GLENNA) Negative COVID-19 [employer] Com See Note 11/06/21 11/06/21 11/06/21 00:54 07:09 07:09 MCV 92.7 MCH 30.0 MCHC 32.3 RDW 14.7 Plt Count 171 MPV 10.5 Immature Gran % (Auto) 0.5 H Neut % (Auto) 79.4 H Lymph % (Auto) 8.8 L [place] % (Auto) 7.4 Eos % (Auto) 3.5 Baso % (Auto) 0.4 Lymph # (Auto) 1.0 L [place] # (Auto) 0.8 Eos # (Auto) 0.4 Baso # (Auto) 0.0 Abs Immat Gran (auto) 0.05 H Absolute Neuts (auto) 8.7 H Absolute Nucleated RBC 0.000 Nucleated RBC % (auto) 0.0 PT INR Anion Gap 17 Estim Creat Clear Calc 11.6 Estimated GFR 9 POC Glucose Random Glucose 145 H Calcium 7.7 L D Total Bilirubin AST ALT Alkaline Phosphatase Troponin I High Sens 50.4 H* B-Natriuretic Peptide Total Protein Albumin Urine Color Urine Appearance Urine pH Ur Specific [place] Urine Protein Urine Glucose (UA) Urine Ketones Urine Blood Urine Nitrite Ur Leukocyte Esterase Urine RBC Urine WBC Ur Squamous Epith Cells Urine Bacteria COVID-19 (GLENNA) COVID-19 [employer] Com 11/06/21 11/06/21 07:40 13:16 MCV MCH MCHC RDW Plt Count MPV Immature Gran % (Auto) Neut % (Auto) Lymph % (Auto) [place] % (Auto) Eos % (Auto) Baso % (Auto) Lymph # (Auto) [place] # (Auto) Eos # (Auto) Baso # (Auto) Abs Immat Gran (auto) Absolute Neuts (auto) Absolute Nucleated RBC Nucleated RBC % (auto) PT INR Anion Gap Estim Creat Clear Calc Estimated GFR POC Glucose 138 H 104 Random Glucose Calcium Total Bilirubin AST ALT Alkaline Phosphatase Troponin I High Sens B-Natriuretic Peptide Total Protein Albumin Urine Color Urine Appearance Urine pH Ur Specific [place] Urine Protein Urine Glucose (UA) Urine Ketones Urine Blood Urine Nitrite Ur Leukocyte Esterase Urine RBC Urine WBC Ur Squamous Epith Cells Urine Bacteria COVID-19 (GLENNA) COVID-19 Clin Com Assessment and Plan (1) ESRD on dialysis: Status: Acute (2) Fluid overload: Status: Acute Plan 76Y old female with a past history of hypertension, hyperlipidemia, diabetes ESRD on hemodialysis anemia, arthritis AFib/history of VTE on Eliquis coronary artery disease, history of toe amputations; presented to the hospital chief complaint shortness of breath.? fluid overload possible sec to esrd.? Chest x-ray showed congestion. EKG nonischemic Troponin:?flat in 50'srange: Possible related to ESRD/hypertension uncontrolled. Hyponatremia: Possible related to fluid overload. ? Will consult Nephrology for further recommendations.? added serum osmolality and urine osmolality. Diabetes:? Insulin sliding scale Hypertension/hyperlipidemia:? Patient blood pressure is slightly on high side on presentation to the ER.? Received hydralazine.? Will continue home medication History of AFib:? Rate controlled.? Continue home Eliquis. DVT prophylaxis:? Patient on Eliquis Code status:? Full code need for inapteint :fluid overload possible sec to esrd,uncontolled htn Quality Stroke Does the patient have a stroke diagnosis?: No VTE Prior VTE?: No VTE Risk Level:: Medical - moderate - high VTE Device Contraindication: Treatment Not Indicated VTE Drug Contraindication: N/A - Med Ordered
[2021-11-06 17:50] LABS: Alanine Aminotransferase 24 U/L (0-31); Albumin Level 3.2 g/dL (3.5-5.0); Alkaline Phosphatase 127 U/L (39-117); Aspartate Amino Transferase 14 U/L (5-31); Bilirubin Direct 0.2 mg/dL (0.0-0.5); Bilirubin Total 0.6 mg/dL (0.0-1.0); Total Protein 5.6 g/dL (6.5-8.0)
[2021-11-06 17:57] LABS: Osmolality, Serum 297 mosm/kg (281-305)
[2021-11-06] MEDS: 0.9 % Sodium Chloride Flush 3 ML SYRINGE IVFLUSH (18:26)
[2021-11-06 21:05] LABS: Glucose, Whole Blood 207 mg/dL (60-115)
[2021-11-06] MEDS: Insulin Lispro 100 UNIT/ML 3 ML VIAL SUBCUT (21:21)
[2021-11-06] MEDS: Gabapentin 100 MG CAPSULE PO (21:22)
[2021-11-06] MEDS: Montelukast Sodium 10 MG TABLET PO (21:22)
[2021-11-06] MEDS: Atorvastatin Calcium 40 MG TABLET PO (21:22)
[2021-11-06] MEDS: Apixaban 5 MG TABLET PO (21:22)
[2021-11-06 22:18] VITALS: BP 146/72; PULSE 89; RESP 18; TEMP 36.4; O2SAT 96
[2021-11-07] MEDS: 0.9 % Sodium Chloride Flush 3 ML SYRINGE IVFLUSH ×5 (00:36→10:39)
[2021-11-07 03:53] VITALS: BP 167/76; PULSE 88; RESP 15; TEMP 36.1; O2SAT 99
[2021-11-07] MEDS: Levothyroxine Sodium 25 MCG TABLET PO (05:39)
[2021-11-07] MEDS: Omeprazole 20 MG CAPSULE.DR PO (05:39)
[2021-11-07 07:30] VITALS: BP 175/65; PULSE 84; RESP 17; TEMP 36.7; O2SAT 97
[2021-11-07 07:46] LABS: Glucose, Whole Blood 83 mg/dL (60-115)
--- NOTE | 2021-11-07 08:11 | P.CDIC_ITS ---
CDI Concurrent Query Documentation Clarification: PHYSICIAN'S DOCUMENTATION REQUEST Date of Query: 11/07/21 0811 Patient Name: Carolina Atkins Admit Date: 11/06/21 Dear Doctor, A review of the medical record indicates additional documentation may be needed. Please review below and update the documentation accordingly. Clinical Indicators: Risk Factors/Clinical Indicators/Treatments Body mass index: 48.8 5 feet in height. If possible, please provide an associated diagnosis related to the abnormal BMI, such as: For a BMI >= 40: * Overweight * Obesity * Due to excess calories * Drug induced * Due to other cause * Severe or Morbid Obesity * With alveolar hypoventilation * Without alveolar hypoventilation Or: * BMI is not significant * Other (please specify) * Unable to determine Use of terms such as suspected, likely, concern for, or probable (associated with a specific diagnosis that is being evaluated, monitored, or treated as if it exists) are acceptable and can be coded in the inpatient setting, when documented at the time of discharge. Thank you, Jessi Frey [facility], CDIS Extension: [phone] Please use your independent medical judgment in providing your response. THIS QUERY IS PART OF THE PERMANENT MEDICAL RECORD Provider Response: Other Other Diagnosis: morbid obesity
--- NOTE | 2021-11-07 08:11 | MHC.CDI.CONC ---
CDI Concurrent Query Documentation Clarification: PHYSICIAN'S DOCUMENTATION REQUEST Date of Query: 11/07/21 0811 Patient Name: Carolina Atkins Admit Date: 11/06/21 Dear Doctor, A review of the medical record indicates additional documentation may be needed. Please review below and update the documentation accordingly. Clinical Indicators: Risk Factors/Clinical Indicators/Treatments Body mass index: 48.8 5 feet in height. If possible, please provide an associated diagnosis related to the abnormal BMI, such as: For a BMI >= 40: Overweight Obesity Due to excess calories Drug induced Due to other cause Severe or Morbid Obesity With alveolar hypoventilation Without alveolar hypoventilation Or: BMI is not significant Other (please specify) Unable to determine Use of terms such as suspected, likely, concern for, or probable (associated with a specific diagnosis that is being evaluated, monitored, or treated as if it exists) are acceptable and can be coded in the inpatient setting, when documented at the time of discharge. Thank you, Jessi Frey [facility], CDIS Extension: [phone] Please use your independent medical judgment in providing your response. THIS QUERY IS PART OF THE PERMANENT MEDICAL RECORD Provider Response: Other Other Diagnosis: morbid obesity
[2021-11-07] MEDS: Aspirin Enteric Coated 81 MG TABLET.DR PO (08:20)
[2021-11-07] MEDS: dilTIAZem HCL CD 180 MG CAP.ER.24H PO (08:20)
[2021-11-07] MEDS: Loratadine 10 MG TABLET PO (08:20)
[2021-11-07] MEDS: Cholecalciferol (Vitamin D3) 25 MCG TABLET PO (08:20)
[2021-11-07] MEDS: Apixaban 5 MG TABLET PO (08:20)
[2021-11-07] MEDS: Ferrous Sulfate 324 MG TABLET.DR PO (08:20)
--- NOTE | 2021-11-07 08:20 | HO.PM.IMPN ---
Subjective Subjective Date of Service: 11/07/21 Interval History: fluid overload, htn uncontrolled Review of Systems sob seems improvin Physical Exam Vital Signs: Vital Signs: Last Vital Signs Temp 98.1 F 11/07/21 07:30 Pulse 84 11/07/21 07:30 Resp 17 11/07/21 07:30 BP 175/65 H 11/07/21 07:30 Pulse Ox 97 11/07/21 07:30 BMI result Body Mass Index 48.8 ?Gen: Appears be in no acute distress.? On supplemental oxygen.? . HEENT:? NCAT,? Moist mucosa. Pulmonary:? air entry seems seems diminshed ,few rales at bases. CVS:? Normal S1-S2 Abdomen: BS+, Soft, Nontender Extremities:? Warm well perfused Neuro:? Alert and awake, nonfocal. Objective Data Active Medications Acetaminophen (Acetaminophen 325 Mg Tablet) 650 mg PO Q6H PRN PRN Reason: Pain, Mild (Pain Scale 1-3) Acetaminophen (Acetaminophen 325 Mg Tablet) 650 mg PO Q6H PRN PRN Reason: GENERAL DISCOMFORT Apixaban (Apixaban 5 Mg Tablet) 5 mg PO BID [facility] Last Admin: 11/06/21 21:22 Dose: 5 mg Documented by: DEMARCUS Aspirin (Aspirin Enteric Coated 81 Mg Tablet.) 81 mg PO DAILY [facility] Atorvastatin Calcium (Atorvastatin Calcium 40 Mg Tablet) 40 mg PO BEDTIME [facility] Last Admin: 11/06/21 21:22 Dose: 40 mg Documented by: DEMARCUS Cyanocobalamin (Cyanocobalamin (Vitamin B-12) 1,000 Mcg/Ml Vial) 1,000 mcg IM Q28D [facility] Dextrose (Dextrose 50 % 25 Gm/50 Ml Syringe) 25 gm IVPUSH Q15M PRN; Protocol PRN Reason: per Hypoglycemia Standing Ord. Diltiazem HCl (Diltiazem Hcl Cd 180 Mg Cap.Er.24h) 180 mg PO DAILY [facility]; Protocol Ferrous Sulfate (Ferrous Sulfate 324 Mg Tablet.) 324 mg PO DAILY [facility] Gabapentin (Gabapentin 100 Mg Capsule) 100 mg PO BEDTIME [facility] Last Admin: 11/06/21 21:22 Dose: 100 mg Documented by: DEMARCUS Glucose (Glucose Gel 15 Gm Gel..Gram.) 15 gm PO Q15M PRN; Protocol PRN Reason: per Hypoglycemia Standing Ord. Heparin Sodium (Porcine) (Heparin Sodium,Porcine 5,000 Unit/Ml Vial) 5,000 unit INTRACATH TUTHSA@1645 [facility] Last Admin: 11/06/21 18:27 Dose: Not Given Documented by: TRENT Non-Admin Reason: see note Insulin Human Lispro (Insulin Lispro 100 Unit/Ml 3 Ml Vial) 0 unit SUBCUT QIDACHS [facility]; Protocol Last Admin: 11/06/21 21:21 Dose: 4 unit Documented by: DEMARCUS Levothyroxine Sodium (Levothyroxine Sodium 25 Mcg Tablet) 25 mcg PO DAILY@0600 [facility] Last Admin: 11/07/21 05:39 Dose: 25 mcg Documented by: JOSE DAVID Loratadine (Loratadine 10 Mg Tablet) 10 mg PO DAILY [facility] Melatonin (Melatonin 3 Mg Tablet) 6 mg PO BEDTIME PRN PRN Reason: Insomnia Montelukast Sodium (Montelukast Sodium 10 Mg Tablet) 10 mg PO BEDTIME [facility] Last Admin: 11/06/21 21:22 Dose: 10 mg Documented by: DEMARCUS Morphine Sulfate (Morphine Sulfate 4 Mg/Ml Cartridge) 1 mg IVPUSH Q4H PRN; Protocol PRN Reason: Pain, SOB Last Admin: 11/06/21 15:04 Dose: 1 mg Documented by: TRENT Omeprazole (Omeprazole 20 Mg Capsule.Dr) 20 mg PO DAILY@0630 [facility] Last Admin: 11/07/21 05:39 Dose: 20 mg Documented by: JOSE DAVID Psyllium Hydrophilic Mucilloid (Psyllium Seed 3.4 Gm Powd.Pack) 3.4 gm PO DAILY [facility] Senna (Sennosides 8.6 Mg Tablet) 17.2 mg PO BEDTIME PRN PRN Reason: Constipation Sodium Chloride (0.9 % Sodium Chloride Flush 3 Ml Syringe) 3 [facility] Last Admin: 11/07/21 00:36 Dose: 3 ml Documented by: JOSE DAVID Sodium Chloride (0.9 % Sodium Chloride Flush 3 Ml Syringe) 3 ml [facility] Last Admin: 11/07/21 00:36 Dose: 3 ml Documented by: JOSE DAVID Sodium Chloride (Sodium Chloride 0.65 % Nasal 44 Ml Sprbtl) 2 spray NOSTRIL-B Q2H PRN PRN Reason: Dry Nasal Passages Vitamin D (Cholecalciferol (Vitamin D3) 25 Mcg Tablet) 25 mcg PO DAILY [facility] Labs CBC & Chem 7: 11/06/21 07:09 11/06/21 07:09 Labs: Laboratory Results - last 24 hr 11/06/21 11/06/21 11/06/21 07:09 07:09 13:16 POC Glucose 104 Osmolality 297 Total Bilirubin 0.6 Direct Bilirubin 0.2 AST 14 ALT 24 Alkaline Phosphatase 127 H Total Protein 5.6 L Albumin 3.2 L 11/06/21 11/07/21 21:01 07:34 POC Glucose 207 H 83 Osmolality Total Bilirubin Direct Bilirubin AST ALT Alkaline Phosphatase Total Protein Albumin Assessment and Plan Plan 76Y old female with a past history of hypertension, hyperlipidemia, diabetes ESRD on hemodialysis anemia, arthritis AFib/history of VTE on Eliquis coronary artery disease, history of toe amputations; presented to the hospital chief complaint shortness of breath.? fluid overload possible sec to esrd.? Chest x-ray showed congestion. EKG nonischemic Troponin:?flat in 50'srange:? Possible related to ESRD/hypertension uncontrolled. Hyponatremia:? Possible related to fluid overload. ? Will consult Nephrology for further recommendations.? added? serum osmolality and urine osmolality. Diabetes:? Insulin sliding scale Hypertension/hyperlipidemia:? Patient blood pressure is slightly on high side on presentation to the ER.? Received hydralazine.? Will continue home medication History of AFib:? Rate controlled.? Continue home Eliquis. DVT prophylaxis:? Patient on Eliquis Code status:? Full code need for inapteint :fluid overload possible sec to esrd,uncontolled htn Quality Stroke Does the patient have a stroke diagnosis?: No VTE Prior VTE?: No VTE Risk Level:: Medical - moderate - high VTE Device Contraindication: Treatment Not Indicated VTE Drug Contraindication: N/A - Med Ordered
--- NOTE | 2021-11-07 09:05 | MHC.CLN ---
NUTRITION DIET MODIFIED PER DIALYSIS PARAMETERS. DIET= DIABETIC 2000 KCAL, 2 GRAM SODIUM, LOW POTASSIUM, LOW PHOSPHORUS.
[2021-11-07 10:09] LABS: Anion Gap 13 (12-20); Blood Urea Nitrogen 35 mg/dL (9-16); Calcium 7.7 mg/dL (8.4-10.2); Carbon Dioxide 27 mmol/L (22-29); Chloride 96 mmol/L (96-108); Creatinine Clr Calc Pharmacy 15.2; Estimated Glomerular Filt Rate 12; Glucose Random 168 mg/dL (60-115); Potassium 4.3 mmol/L (3.3-5.1); Sodium 132 mmol/L (135-145)
[2021-11-07 11:32] VITALS: BP 138/74; PULSE 87; RESP 17; TEMP 36.8; O2SAT 96
--- NOTE | 2021-11-07 11:39 | PM.PNNEP ---
Subjective Subjective Date of Service: 11/07/21 Interval history: Events noted. All recent data reviewed. D/W Hospitalist Physical Exam Vital Signs: Vital Signs: Last Vital Signs Temp 98.2 F 11/07/21 11:32 Pulse 87 11/07/21 11:32 Resp 17 11/07/21 11:32 BP 138/74 11/07/21 11:32 Pulse Ox 96 11/07/21 11:32 BMI result Body Mass Index 48.8 Const: General: no acute distress Orientation/consciousness: patient oriented x3 Eyes: EOM: EOMs intact bilaterally Neck: Neck: Yes supple Resp: Auscultation: diminished lung sounds Cardio: Rate: regular rate GI: Palpation (GI): Soft to palpation Neuro: General: patient oriented x3 and moves all extremities Objective Data Labs CBC & Chem 7: 11/06/21 07:09 11/07/21 09:30 Labs: Laboratory Results - last 24 hr 11/06/21 11/06/21 11/06/21 07:09 07:09 13:16 Sodium Potassium Chloride Carbon Dioxide Anion Gap BUN Creatinine Estim Creat Clear Calc Estimated GFR POC Glucose 104 Random Glucose Osmolality 297 Calcium Total Bilirubin 0.6 Direct Bilirubin 0.2 AST 14 ALT 24 Alkaline Phosphatase 127 H Total Protein 5.6 L Albumin 3.2 L 11/06/21 11/07/21 11/07/21 21:01 07:34 09:30 Sodium 132 L Potassium 4.3 Chloride 96 Carbon Dioxide 27 Anion Gap 13 BUN 35 H Creatinine 3.71 H Estim Creat Clear Calc 15.2 Estimated GFR 12 POC Glucose 207 H 83 Random Glucose 168 H Osmolality Calcium 7.7 L Total Bilirubin Direct Bilirubin AST ALT Alkaline Phosphatase Total Protein Albumin Procedures Date of Service Date of Service: 11/07/21 Assessment & Plan Assessment and plan (1) ESRD on dialysis: Status: Acute Assessment and Plan: Usually gets HD on TTS Continued volume optimization on HD Needs to bring dry weight down 2 Gram Na/ 2 Gram K/ Phos restricted diet with fluid restriction Shall arrange HD follow up in outpt unit Time Spent With Patient Time: Total time spent is greater than 50% in coordination of care (as documented) at patient's floor/unit and/or counseling patient: Progress Note: Quality Stroke Does the patient have a stroke diagnosis?: No
--- NOTE | 2021-11-07 11:41 | P.DS_ITS ---
DS: Providers Provider Date of Service: 11/07/21 Date of admission: 11/06/21 00:15 Primary care physician: Unknown Physician Consults: 11/06/21 09:54 Consult to Nephrology Routine Consulting Provider: Handy Tidwell Reason for consultation: esrd with fluid overload Has provider been notified: No DS: Diagnosis Discharge Diagnosis (1) ESRD on dialysis: Status: Acute (2) Fluid overload: Status: Acute DS: Summary Hospital Course Hospital Course: 76Y old female with a past history of hypertension, hyperlipidemia, diabetes ESRD on hemodialysis anemia, arthritis AFib/history of DVT on Eliquis coronary artery disease, history of toe amputations; presented to the hospital chief complaint shortness of breath.? Patient reports that over the past 3 days she has been shortness of breath which has been gradually worsening.? Denies any fever chills.? Denies any chest pain or palpitations.? Denies missing her hemodialysis session.? Denies any GI symptoms. Hospital course: Patient came with fluid overload possible related to ESRD and dietary noncompliance-status post hemodialysis seems to be improved. Encouraged in detail with diet compliance as well as continue current management. Blood pressure seems to be improved significantly after hemodialysis will continue current home meds. She also have found to have mild elevation troponin upon admission possible related to ESRD and elevated blood pressure. Her echo last year: Seems ef 60- 65%. Further workup outpatient with PCP. Above management discussed with the patient in detail length she understand and in agreement with the above plan, time spent 50 minutes and 50% time spent on counseling. Significant findings: As above. Procedures performed: None. Treatment and response: As above. Complications: None. Time Spent with Patient Time attestation: Total time spent providing and/or coordinating discharge services: Discharge coordination time: Greater than 30 minutes Quality: Safe Use of Opioids Does Pt have an Active Cancer Diagnosis on the Problem List?: No Quality: Stroke Does the patient have a stroke diagnosis?: No Physical Exam Vital Signs: Vital Signs: Last Vital Signs Temp 98.2 F 11/07/21 11:32 Pulse 87 11/07/21 11:32 Resp 17 11/07/21 11:32 BP 138/74 11/07/21 11:32 Pulse Ox 96 11/07/21 11:32 BMI result Body Mass Index 48.8 Gen: Appears be in no acute distress.? On supplemental oxygen.? Speaks in full sentences. HEENT:? NCAT,? Moist mucosa. Pulmonary:? air entry seems seems diminshed ,few rales at bases. CVS:? Normal S1-S2 Abdomen: BS+, Soft, Nontender Extremities:? Warm well perfused Neuro:? Alert and awake, nonfocal. DS: Data Data Completed and Pending Completed studies during hospitalization [Text1]: Procedures Drainage of Left Pleural Cavity, Percutaneous Approach (05/21/21) Excision of Right Kidney, Percutaneous Approach, Diagnostic (04/20/21) Insertion of Infusion Device into Left Brachial Vein, Percutaneous Approach (05/02/21) Insertion of Infusion Device into Right Atrium, Percutaneous Approach (05/02/21) Insertion of Infusion Device into Superior Vena Cava, Percutaneous Approach (05/02/21) Insertion of Tunneled Vascular Access Device into Chest Subcutaneous Tissue and Fascia, Percutaneous Approach (05/02/21) Performance of Urinary Filtration, Intermittent, Less than 6 Hours Per Day (07/30/21) Removal of Infusion Device from Great Vessel, Percutaneous Approach (05/02/21) Transfusion of Nonautologous Red Blood Cells into Peripheral Vein, Percutaneous Approach (05/02/21) Labs on day of discharge: Laboratory Results - last 24 hr 11/06/21 11/06/21 11/06/21 07:09 07:09 13:16 Sodium Potassium Chloride Carbon Dioxide Anion Gap BUN Creatinine Estim Creat Clear Calc Estimated GFR POC Glucose 104 Random Glucose Osmolality 297 Calcium Total Bilirubin 0.6 Direct Bilirubin 0.2 AST 14 ALT 24 Alkaline Phosphatase 127 H Total Protein 5.6 L Albumin 3.2 L 11/06/21 11/07/21 11/07/21 21:01 07:34 09:30 Sodium 132 L Potassium 4.3 Chloride 96 Carbon Dioxide 27 Anion Gap 13 BUN 35 H Creatinine 3.71 H Estim Creat Clear Calc 15.2 Estimated GFR 12 POC Glucose 207 H 83 Random Glucose 168 H Osmolality Calcium 7.7 L Total Bilirubin Direct Bilirubin AST ALT Alkaline Phosphatase Total Protein Albumin Additional Comments Additional comments: XR/XR chest 1V IMPRESSION: Dialysis catheter tip overlying the right atrium. Central vascular prominence increased from the prior study. Component of mild fluid overload cannot be excluded. Discharge Plan Discharge Patient Disposition: Home, Self-Care Discharge Diagnosis: fluid overload due to esrd and diet noncomplance. Referrals: Physician,Unknown J [Primary Care Provider] - 1 Week Discharge Medications: Continued (DME) pen needle, diabetic [BD Sandra 2nd Gen Pen Needle] 32 gauge x 5/32 needle See Rx Instructions .Route Qty: 50 0RF Rx Instructions: As directed Eliquis 5 mg tablet 5 mg PO BID Qty: 60 2RF (DME) FreeStyle Lite Strips Strip See Rx Instructions .ROUTE .MEDSUPPLY Qty: 300 3RF Rx Instructions: As directed once a day acetaminophen 325 mg Tablet 650 mg PO Q6H PRN (Reason: GENERAL DISCOMFORT) 0RF montelukast 10 mg tablet 1 tab PO BEDTIME 0RF loratadine 10 mg tablet 1 tab PO DAILY 0RF cholecalciferol (vitamin D3) 25 mcg (1,000 unit) tablet 1 tab PO DAILY 0RF atorvastatin 40 mg tablet 1 tab PO BEDTIME 0RF gabapentin 100 mg capsule 1 cap PO BEDTIME 0RF insulin lispro 100 unit/mL insulin pen 2 - 10 unit subcut QIDACHS 0RF levothyroxine 25 mcg capsule 1 cap PO QAM 0RF pantoprazole 20 mg tablet,delayed release (DR/EC) 1 tab PO DAILY 0RF Metamucil Fiber Singles 3.4 gram Powder In Packet 1 packet PO DAILY 0RF ferrous sulfate 325 mg (65 mg iron) Tablet 325 mg PO DAILY 0RF Saline Nasal 0.65 % Aerosol,[place] 2 spray INTRANASAL Q2H PRN (Reason: Dry Nasal Passages) 0RF melatonin 5 mg Tablet 5 mg PO BEDTIME PRN (Reason: Sleep) 0RF cyanocobalamin (vitamin B-12) 1,000 mcg/mL solution 1 ml IM Q4W 0RF aspirin 81 mg tablet,delayed release (DR/EC) 1 tab PO DAILY 0RF Lantus U-100 Insulin 100 unit/mL solution 8 unit subcut BEDTIME 0RF diltiazem HCl 180 mg capsule,extended release 24hr 1 cap PO DAILY 0RF (DME) blood-glucose meter [FreeStyle Lite Meter] Kit See Rx Instructions .Route Qty: 1 0RF Rx Instructions: As directed (DME) FreeStyle Lite Strips Strip See Rx Instructions .ROUTE .MEDSUPPLY Qty: 100 0RF Rx Instructions: As directed (DME) lancets [FreeStyle Lancets] 28 gauge misc See Rx Instructions .ROUTE .MEDSUPPLY Qty: 100 0RF Rx Instructions: As directed (DME) blood-glucose meter [FreeStyle Lite Meter] Kit See Rx Instructions .Route Qty: 1 0RF Rx Instructions: As directed 3 times a day (DME) TRANSPORT WHEELCHAIR See Rx Instructions .Route .MEDSUPPLY Qty: 1 0RF Rx Instructions: As directed (DME) blood pressure monitor Kit See Rx Instructions .Route Qty: 1 0RF Rx Instructions: As directed Discharge Orders: Discharge Order (Routine); Ordered 11/07/21 Ordered By: Lindsey Burnett Diet: advance to usual diet Activity on Discharge: As tolerated Stand Alone Forms: Patient Portal Discharge page Care Plan Goals: Patient came with fluid overload possible related to ESRD and dietary noncompliance-status post hemodialysis seems to be improved. Encouraged in detail with diet compliance as well as continue current management. Blood pressure seems to be improved significantly after hemodialysis will continue current home meds. Health Concerns: As above. Plan of Treatment: As above. Assessment: As above.
--- NOTE | 2021-11-07 11:43 | MHC.CM.PN ---
PT MEDICALLY CLEARED FOR D/C HOME W/RESUMP OF FAMILY SUPPORT AND OUPT HD AT [facility] CONTACTED PT'S SON/HCP ELIO AT 11:38PM [phone] ELIO AGREEABLE TO PLAN AND REQUESTING TRANSPORT BE SET UP FOR PT AND THERE WILL BE FAMILY TO RECEIVE HER, ANTIC D/C AT 2PM.
[2021-11-07 11:44] LABS: Glucose, Whole Blood 117 mg/dL (60-115)
--- NOTE | 2021-11-07 16:18 | PC.NURSE ---
1300 F/C dc'd. pt DTV by 7pm 1330 pt reports voiding in toilet. denies presence of blood.
== END 2021-11-07 15:37 | disposition home or self-care (01) | DRG 291 ==
LOC: HO.ED 21:57 → HO.EDOVER 11-06 00:20 → HO.S3 11-06 20:17
PROVIDERS: Admitting Provider Hospitalist; Emergency Provider Internal Medicine; PCP Internal Medicine; Visit Provider Internal Medicine
DX: I13.2 Hypertensive heart and chronic kidney disease with heart failure and with stage 5 chronic kidney disease, or end stage renal disease (principal); N18.6 End stage renal disease; E87.1 Hypo-osmolality and hyponatremia; Z68.42 Body mass index [BMI] 45.0-49.9, adult; I25.10 Atherosclerotic heart disease of native coronary artery without angina pectoris; E11.22 Type 2 diabetes mellitus with diabetic chronic kidney disease; E78.5 Hyperlipidemia, unspecified; E66.01 Morbid (severe) obesity due to excess calories; I50.9 Heart failure, unspecified; Z99.2 Dependence on renal dialysis; Z20.822 Contact with and (suspected) exposure to COVID-19; Z91.11 Patient's noncompliance with dietary regimen; Z79.4 Long term (current) use of insulin; Z79.01 Long term (current) use of anticoagulants; Z79.82 Long term (current) use of aspirin; Z79.890 Hormone replacement therapy; Z79.899 Other long term (current) drug therapy
CPT/HCPCS: 36415; 71045; 80048; 80053; 80076; 81001; 81003; 82947; 83880; 83930; 84484; 85025; 85610; 87635; 90999; 93005; 96374; 96375; 96376; 99285; 99291; C1758; J1940; J2270

== ENCOUNTER 2021-12-03 08:57 | Outpatient (REF) | payer OTHER, SELFPAY ==
--- NOTE | ~2021-12-03 | MM_ITS ---
EXAMINATION: MM SCREENING DIGITAL BREAST TOMOSYNTHESIS, BILATERAL CLINICAL INFORMATION: Screening. Asymptomatic. Prior [id number] mammography from [place] at unknown facility 3 years ago, unavailable. No known family history breast cancer. The lifetime risk of breast cancer based on the Tyrer-Cuzick Model is 2%. COMPARISON: None. TECHNIQUE: Digital breast tomosynthesis is performed in both the craniocaudal and mediolateral oblique views along with computer-aided detection (CAD). Synthesized 2D images are generated from the tomosynthesis. Dialysis catheter on right, exam positioning optimized for patient capabilities. FINDINGS: There are scattered areas of fibroglandular density (ACR BI-RADS breast composition Category b). There is no significant mass or architectural abnormality. No abnormal calcifications. There are numerous bilateral vascular calcifications and some ductal secretory calcifications. Left axillary node partially in [id number] shows abundant fatty hilus. Skin contours are smooth. No skin thickening or coarsening of the Kory's ligaments. MM/MM tomosynthesis screening BI IMPRESSION: No mammographic evidence of malignancy. ASSESSMENT: BI-RADS 2: Benign RECOMMENDATION: Routine annual mammography screening. This patient's information was entered into a reminder system with a target due date for their next mammogram.
== END 2021-12-03 08:58 | disposition home or self-care (01) ==
LOC: HO.MAMMO 08:57
PROVIDERS: Visit Provider Internal Medicine
DX: Z12.31 Encounter for screening mammogram for malignant neoplasm of breast (principal)
CPT/HCPCS: 77063; 77067

== ENCOUNTER → 2021-12-19 08:20 | Outpatient (BNVA) | payer OTHER, SELFPAY | PROVIDERS: PCP Internal Medicine; Visit Provider Physician Assistant | DX: Z12.11 Encounter for screening for malignant neoplasm of colon (principal); N18.6 End stage renal disease; Z99.2 Dependence on renal dialysis; I48.91 Unspecified atrial fibrillation | CPT/HCPCS: 99202 ==

== ENCOUNTER → 2022-02-01 14:27 | Outpatient (BNVA) | payer OTHER, SELFPAY | PROVIDERS: PCP Internal Medicine; Visit Provider Hospitalist | DX: Z01.811 Encounter for preprocedural respiratory examination (principal); R06.00 Dyspnea, unspecified; J90 Pleural effusion, not elsewhere classified; I48.91 Unspecified atrial fibrillation | CPT/HCPCS: 99202 ==

== ENCOUNTER 2022-02-09 20:01 | Emergency (ER) | payer OTHER, SELFPAY ==
--- NOTE | ~2022-02-09 | XR_ITS ---
EXAMINATION: XR CHEST CLINICAL INFORMATION: Palpitations. COMPARISON: Chest radiograph 11/05/2021. TECHNIQUE: Frontal view of the chest was obtained. FINDINGS: Right IJ dialysis catheter terminates within the right atrium, similar to prior. Stable prominence of the cardiomediastinal silhouette. EKG wires overlie the chest. Right humeral orthopedic hardware redemonstrated. Mild interstitial prominence but no focal airspace opacities, pleural effusions or pneumothorax. No acute osseous abnormalities. XR/XR chest 1V IMPRESSION: Mild interstitial thickening, not significantly changed. No new airspace opacities.
--- NOTE | ~2022-02-09 | XR_ITS ---
EXAMINATION: XR FOOT, RIGHT CLINICAL INFORMATION: Pain COMPARISON: 09/27/2021 TECHNIQUE: AP, lateral, and oblique views of the right foot. FINDINGS: The study is significantly limited by patient positioning. There are hammertoe deformities of the second through fourth toes. The first toe is absent. Vascular calcifications are present. No acute fracture seen. No gross dislocation. Diffuse osteopenia. No focal erosion or cortical destruction. Large plantar calcaneal osteophyte is present. XR/XR foot RT min 3V IMPRESSION: No acute abnormality. No significant change from prior study 09/27/2021.
--- NOTE | 2022-02-09 20:13 | ED_ITS ---
HPI - Weakness General Chief complaint: Chest Pain Stated complaint: wekaness, leg pain Time Seen by Provider: 02/09/22 20:13 Source: patient Mode of arrival: EMS Limitations: other (poor historian) History of Present Illness HPI Narrative: 76 yo female with hx of ESRD T Th S (went today), afib on eliquis, IDDM, GERD, HTN, hypothyroidism, polyneuropathy, anxiety here with c/o of R leg pain - states it is her neuropathy that is not responding to her pain medications. She denies any other symptoms other than exacerbation of her chronic pain. She was found to be in rapid afib. She states no changes to her medications and she is compliant with her meds. She was told by her HD RN that she was in rapid afib. MD Complaint: difficulty walking (right leg pain) Onset (ago): hour(s) (chronic but worse tonight and she couldn't get comfortable) Duration: progressively worsening Location: RLE Migration: distal Severity: similar to previous episodes Quality: aching and dull Relieving factors: medication Exacerbating factors: none Context: history of similar Associated symptoms: denies other symptoms Related Data Home Medications Medication Instructions Recorded Confirmed acetaminophen 325 mg tablet 650 mg PO Q6H PRN GENERAL 05/21/21 12/19/21 DISCOMFORT gabapentin 100 mg capsule 1 cap PO BEDTIME 11/06/21 12/19/21 insulin glargine 100 unit/mL 8 unit subcut BEDTIME 11/06/21 12/19/21 subcutaneous solution (Lantus U-100 Insulin) insulin lispro 100 unit/mL 2 - 10 unit subcut QIDACHS 11/06/21 12/19/21 subcutaneous pen melatonin 5 mg tablet 5 mg PO BEDTIME PRN Sleep 11/06/21 12/19/21 psyllium husk (aspartame) 3.4 gram 1 packet PO DAILY 11/06/21 12/19/21 oral powder packet (Metamucil Fiber Singles) sodium chloride 0.65 % nasal spray 2 spray intranasal Q2H PRN Dry 11/06/21 12/19/21 aerosol (Saline Nasal) Nasal Passages Previous Rx's Medication Instructions Recorded blood-glucose meter (FreeStyle #1 ea 04/13/21 Lite Meter kit) TRANSPORT WHEELCHAIR #1 ea 08/03/21 blood pressure monitor #1 ea 08/03/21 apixaban 5 mg tablet (Eliquis) 5 mg PO BID 90 days #180 tabs 11/12/21 aspirin 81 mg tablet,delayed 81 mg PO DAILY #90 tabs 11/12/21 release atorvastatin 40 mg tablet 40 mg PO BEDTIME #90 tabs 11/12/21 blood sugar diagnostic (FreeStyle #300 ea 11/12/21 Lite Strips) blood-glucose meter (FreeStyle #1 ea 11/12/21 Lite Meter kit) cholecalciferol (vitamin D3) 25 25 mcg PO DAILY #90 tabs 11/12/21 mcg (1,000 unit) tablet ferrous sulfate 325 mg (65 mg 325 mg PO DAILY #90 tabs 11/12/21 iron) tablet guaifenesin 200 mg tablet 200 mg PO Q4H PRN congestion #20 11/12/21 tabs pantoprazole 20 mg tablet,delayed 20 mg PO DAILY #90 tabs 11/12/21 release lancets 28 gauge (FreeStyle #100 ea 11/14/21 Lancets) Extra depth orthopedic shoes (1 #1 ea 11/16/21 pair) with customized heat molded multidensity innersoles (3 pair) levothyroxine 25 mcg tablet 25 mcg PO DAILY #90 tabs 11/23/21 cyanocobalamin (vitamin B-12) 1,000 mcg IM Q4W #1 mL 12/14/21 1,000 mcg/mL injection solution peg 3350 240 gram-electrolytes 240 ml PO Q10M #4,000 mL 12/19/21 22.72 gram-6.72 g-5.84 g powdr for soln diltiazem HCl 180 mg 180 mg PO DAILY #30 caps 01/14/22 capsule,extended release 24 hr montelukast 10 mg tablet 10 mg PO BEDTIME #90 tabs 02/03/22 loratadine 10 mg tablet 10 mg PO DAILY 90 days #90 tabs 02/04/22 pen needle, diabetic 32 gauge x #50 ea 02/04/22 (BD Sandra 2nd Gen Pen Needle) oxycodone 5 mg tablet 5 mg PO BID PRN pain #10 tabs 02/09/22 Allergies Allergy/AdvReac Type Severity Reaction Status Date / Time No Known Allergies Allergy Verified 02/01/22 14:36 Review of Systems Review of Systems: Constitutional : No Fever, No Chills ENT/Mouth : No Ear Pain, No Hoarseness, No sore throat Eyes: No Eye Pain, No Swelling, No Redness, No Foreign Body Cardiovascular : No Chest Pain, No SOB Respiratory : No Cough, No Dyspnea Gastrointestinal : No Nausea, No Vomiting, No Diarrhea, No abdominal Pain Genitourinary : No Dysuria, No Hematuria Musculoskeletal : positive joint pain, No Myalgias, No Joint Swelling Skin : No Skin lacerations, No rash Neuro : No Weakness, No Numbness, No Loss of Consciousness, No Dizziness, No Headache Psych : No Anxiety/Panic, No Depression Heme/Lymph: no easy bruising, no Lymphadenopathy Endocrine : No Polyuria, No Polydipsia All other systems reviewed and are negative [facility] Past Medical History Attestation statement: The following information was validated with the patient. Medical History Acute pericardial effusion Anemia Benign essential hypertension CAD (coronary artery disease) Dyspnea ESRD (end stage renal disease) GERD (gastroesophageal reflux disease) Hemodialysis patient HLD (hyperlipidemia) Hypothyroidism Iron deficiency Nephrotic range proteinuria Obesity (BMI 30-39.9) Osteoarthritis PAF (paroxysmal atrial fibrillation) Paroxysmal atrial fibrillation Pernicious anemia Pure hypercholesterolemia Toe amputee Type 2 diabetes mellitus Surgical History Hx of appendectomy S/P arteriovenous (AV) fistula creation Social History Social History Household Members: None Household Members Other:: self, son lives close by Housing: House Do you presently have visiting nurse or other home services: No Alcohol intake: never Patient Tobacco Use Status: Never used Tobacco e-Cigarette/Vaping Use: Never Used Second Hand Smoke Exposure: No Advance Directives: No Advance Directives Information Provided: No service: No Current occupational status: retired Cognitive needs: Yes Hearing needs: No Vision needs: No Physical Exam Vital Signs: Vital Signs: Last Vital Signs Temp 97.9 F 02/09/22 22:11 Pulse 101 H 02/09/22 22:11 Resp 19 02/09/22 22:11 BP 145/65 H 02/09/22 22:11 Pulse Ox 93 02/09/22 22:11 O2 Del Method 02/09/22 22:11 BMI result Body Mass Index 37.0 Appearance: Alert. Oriented X3. No acute distress. Eyes: Pupils equal, round and reactive to light. ENT: Pharynx normal. Neck: Normal inspection. Neck supple. CVS: tachycardic irregular heart rate and rhythm. Pulses normal. Respiratory: No respiratory distress. Breath sounds normal. Abdomen: Soft and nontender. Skin: Skin warm and dry. pale skin color. Normal skin turgor. Extremities: non pitting lower extremity edema. right foot ttp along top of foot no erythema/drainage, there is a pulse - foot is warm to touch, no deformity. new fistula L UE Neuro: Oriented X 3. No motor deficit. No sensory deficit. Course Course Course Narrative: BP improved HR under 100 has her meds at home pain resolved with oxycodone, labs stable, laying flat no distress stable for DC MDM - Weakness MDM Narrative Medical decision making narrative: 76 yo female with hx of ESRD T Th S (went today), afib on eliquis, IDDM, GERD, HTN, hypothyroidism, polyneuropathy, anxiety here with c/o R foot pain which she states is chronic for her neuropathy - at this time PO pain medications ordered (no signs of infection or vascular compromise). She is also in rapid a fib which she states she has no symptoms of. At this time will need basic labs, EKG, CXR and IV dilt for rate control - dispo per results and clinical improvement. Lab Data Result diagrams: 02/09/22 20:40 02/09/22 20:40 Labs: Lab Results 02/09/22 02/09/22 02/09/22 Range/Units 20:39 20:40 20:40 WBC 6.8 (4.8-10.8) X10*3/uL RBC 3.04 L (4.20-5.50) X10*6/uL Hgb 9.5 L (12.0-16.0) g/dl Hct 29.8 L (37.0-47.0) % MCV 98.0 (80.0-98.0) fL MCH 31.3 (27.0-33.0) pg MCHC 31.9 (31.0-35.0) g/dl RDW 14.3 (11.0-16.0) % Plt Count 150 L (160-400) X10*3/uL MPV 10.3 (9.4-12.3) fL Immature Gran % (Auto) 0.4 (0.0-0.4) % Neut % (Auto) 69.8 (45-73) % Lymph % (Auto) 14.5 L (20-40) % [place]ink[place] % (Auto) 8.1 (2-11) % Eos % (Auto) 6.5 H (0-4) % Baso % (Auto) 0.7 (0-2) % Lymph # (Auto) 1.0 L (1.2-4.9) X10*3/uL [place]ink[place] # (Auto) 0.6 (0.1-1.2) X10*3/uL Eos # (Auto) 0.4 (0.0-0.4) X10*3/uL Baso # (Auto) 0.1 (0.0-0.2) X10*3/uL Abs Immat Gran (auto) 0.03 (0.00-0.03) X10*3/uL Absolute Neuts (auto) 4.8 (2.0-8.3) x10*3/uL Absolute Nucleated RBC 0.000 (0.0-0.012) X10*3/uL Nucleated RBC % (auto) 0.0 (0.0-0.2) /100WBC PT (10.0-13.1) SEC INR (0.9-1.1) Sodium 138 (135-145) mmol/L Potassium 4.7 (3.3-5.1) mmol/L Chloride 100 (96-108) mmol/L Carbon Dioxide 24 (22-29) mmol/L Anion Gap 19 (12-20) BUN 23 H (9-16) mg/dL Creatinine 2.38 H (0.5-1.4) mg/dL Estim Creat Clear Calc 20.1 Estimated GFR 20 Random Glucose 139 H (60-115) mg/dL Calcium 8.1 L (8.4-10.2) mg/dL Magnesium 1.8 (1.6-2.6) mg/dL Total Creatine Kinase 85 (26-140) U/L Troponin I High Sens (<3.5-17.0) ng/L COVID-19 ([facility]) Negative (Negative) COVID-19 Clin Com See Note 02/09/22 02/09/22 Range/Units 20:40 20:40 WBC (4.8-10.8) X10*3/uL RBC (4.20-5.50) X10*6/uL Hgb (12.0-16.0) g/dl Hct (37.0-47.0) % MCV (80.0-98.0) fL MCH (27.0-33.0) pg MCHC (31.0-35.0) g/dl RDW (11.0-16.0) % Plt Count (160-400) X10*3/uL MPV (9.4-12.3) fL Immature Gran % (Auto) (0.0-0.4) % Neut % (Auto) (45-73) % Lymph % (Auto) (20-40) % Winkler % (Auto) (2-11) % Eos % (Auto) (0-4) % Baso % (Auto) (0-2) % Lymph # (Auto) (1.2-4.9) X10*3/uL Winkler # (Auto) (0.1-1.2) X10*3/uL Eos # (Auto) (0.0-0.4) X10*3/uL Baso # (Auto) (0.0-0.2) X10*3/uL Abs Immat Gran (auto) (0.00-0.03) X10*3/uL Absolute Neuts (auto) (2.0-8.3) x10*3/uL Absolute Nucleated RBC (0.0-0.012) X10*3/uL Nucleated RBC % (auto) (0.0-0.2) /100WBC PT 20.7 H (10.0-13.1) SEC INR 1.8 H (0.9-1.1) Sodium (135-145) mmol/L Potassium (3.3-5.1) mmol/L Chloride (96-108) mmol/L Carbon Dioxide (22-29) mmol/L Anion Gap (12-20) BUN (9-16) mg/dL Creatinine (0.5-1.4) mg/dL Estim Creat Clear Calc Estimated GFR Random Glucose (60-115) mg/dL Calcium (8.4-10.2) mg/dL Magnesium (1.6-2.6) mg/dL Total Creatine Kinase (26-140) U/L Troponin I High Sens 22.7 H D (<3.5-17.0) ng/L COVID-19 ([facility]) (Negative) COVID-19 Clin Com ECG Data Attestation: I personally reviewed and interpreted this ECG as follows: ECG interpretation date: 02/09/22 ECG interpretation time: 20:31 Interpretation: Rate: 135 Rhythm: afib with RVR [place]: normal Normal QRS complex. ST T wave : non specific no COURT qTC: prolonged prior studies: changed from prior The study has been interpreted contemporaneously by me. . Discharge Plan Discharge Clinical Impression: Atrial fibrillation with rapid ventricular response Chronic foot pain Qualifiers: Laterality: right Qualified Code(s): M79.671 - Pain in right foot Patient Disposition: Home, Self-Care Instructions: A-fib (Atrial Fibrillation) (ED), Chronic Pain (ED) Additional Instructions: regresar al servicio de urgencias por cualquier empeoramiento de los s?ntomas o inquietudes tome lauren medicamentos por la ma?colette para huffman fibrilaci?n auricular Prescriptions: New oxycodone 5 mg tablet 5 mg PO BID PRN (Reason: pain) Qty: 10 0RF Rx Instructions: Partial Fill upon patient request. No Action (DME) Extra depth orthopedic shoes (1 pair) with customized heat molded multidensity innersoles (3 pair) See Rx Instructions .Route .MEDSUPPLY Qty: 1 0RF Rx Instructions: As directed levothyroxine 25 mcg tablet 25 mcg PO DAILY Qty: 90 0RF cyanocobalamin (vitamin B-12) 1,000 mcg/mL solution 1,000 mcg IM Q4W Qty: 1 3RF diltiazem HCl 180 mg capsule,extended release 24hr 180 mg PO DAILY Qty: 30 0RF montelukast 10 mg tablet 10 mg PO BEDTIME Qty: 90 0RF (DME) pen needle, diabetic [BD Sandra 2nd Gen Pen Needle] 32 gauge x 5/32 needle See Rx Instructions .Route Qty: 50 0RF Rx Instructions: As directed loratadine 10 mg tablet 10 mg PO DAILY 90 Days Qty: 90 0RF Rx Instructions: Take 1 tablet by mouth daily acetaminophen 325 mg Tablet 650 mg PO Q6H PRN (Reason: GENERAL DISCOMFORT) gabapentin 100 mg capsule 1 cap PO BEDTIME insulin lispro 100 unit/mL insulin pen 2 - 10 unit subcut QIDACHS Metamucil Fiber Singles 3.4 gram Powder In Packet 1 packet PO DAILY Saline Nasal 0.65 % Aerosol,[place] 2 spray INTRANASAL Q2H PRN (Reason: Dry Nasal Passages) melatonin 5 mg Tablet 5 mg PO BEDTIME PRN (Reason: Sleep) Lantus U-100 Insulin 100 unit/mL solution 8 unit subcut BEDTIME (DME) blood-glucose meter [FreeStyle Lite Meter] Kit See Rx Instructions .Route Qty: 1 0RF Rx Instructions: As directed (DME) TRANSPORT WHEELCHAIR See Rx Instructions .Route .MEDSUPPLY Qty: 1 0RF Rx Instructions: As directed (DME) blood pressure monitor Kit See Rx Instructions .Route Qty: 1 0RF Rx Instructions: As directed (DME) FreeStyle Lite Strips Strip See Rx Instructions .ROUTE .MEDSUPPLY Qty: 300 3RF Rx Instructions: check bs 3-4X/DAY (DME) blood-glucose meter [FreeStyle Lite Meter] Kit See Rx Instructions .Route Qty: 1 0RF Rx Instructions: As directed 3-4 times a day Eliquis 5 mg tablet 5 mg PO BID 90 Days Qty: 180 0RF aspirin 81 mg tablet,delayed release (DR/EC) 81 mg PO DAILY Qty: 90 0RF atorvastatin 40 mg tablet 40 mg PO BEDTIME Qty: 90 0RF cholecalciferol (vitamin D3) 25 mcg (1,000 unit) tablet 25 mcg PO DAILY Qty: 90 0RF ferrous sulfate 325 mg (65 mg iron) tablet 325 mg PO DAILY Qty: 90 0RF pantoprazole 20 mg tablet,delayed release (DR/EC) 20 mg PO DAILY Qty: 90 0RF guaifenesin 200 mg tablet 200 mg PO Q4H PRN (Reason: congestion) Qty: 20 0RF (DME) lancets [FreeStyle Lancets] 28 gauge misc See Rx Instructions .ROUTE .MEDSUPPLY Qty: 100 0RF Rx Instructions: check BS 3x/day peg 3350-electrolytes 240-22.72-6.72 -5.84 gram recon soln 240 ml PO Q10M Qty: 4000 0RF Rx Instructions: until fecal effluent is clear Referrals: Physician,Unknown J [Primary Care Provider] - (Friday if not better) Print Language: Vincentian
[2022-02-09 20:15] VITALS: BP 147/80; PULSE 130; RESP 16; TEMP 36.9; O2SAT 96; O2SAT 97; BMI 37.0
--- NOTE | 2022-02-09 20:21 | ECG_ITS ---
Test Reason : A-FIB Blood Pressure : / mmHG Vent. Rate : 135 BPM Atrial Rate : 300 BPM P-R Int : 000 ms QRS Dur : 074 ms QT Int : 334 ms P-R-T Axes : 000 061 080 degrees QTc Int : 501 ms Atrial flutter with variable A-V block Nonspecific ST and T wave abnormality Abnormal ECG When compared with ECG of 05-NOV-2021 21:23, Atrial flutter has replaced Sinus rhythm Vent. rate has increased BY 61 BPM Nonspecific T wave abnormality now evident in Lateral leads Referred By: Alis Brambila Electronically Signed By:ASHLEY ZAMAN
[2022-02-09] MEDS: dilTIAZem HCL 50 MG/10 ML VIAL 10 MG IVPUSH (20:41)
[2022-02-09] MEDS: oxyCODONE HCl Immed Release 5 MG TABLET 10 MG PO (20:41)
[2022-02-09 20:44] LABS: MANUAL DIFF FLAG NO
[2022-02-09 20:45] LABS: Basophils Absolute Auto 0.1 X10*3/uL (0.0-0.2); Basophils Percent Auto 0.7 % (0-2); Eosinophils Absolute Auto 0.4 X10*3/uL (0.0-0.4); Eosinophils Percent Auto 6.5 % (0-4); Hematocrit 29.8 % (37.0-47.0); Hemoglobin 9.5 g/dl (12.0-16.0); Imm Gran Abs Auto 0.03 X10*3/uL (0.00-0.03); Imm Gran Pct Auto 0.4 % (0.0-0.4); Lymphocytes Percent Auto 14.5 % (20-40); Mean Corpuscular HGB Conc 31.9 g/dl (31.0-35.0); Mean Corpuscular Hemoglobin 31.3 pg (27.0-33.0); Mean Platelet Volume 10.3 fL (9.4-12.3); Monocytes Absolute Auto 0.6 X10*3/uL (0.1-1.2); Monocytes Percent Auto 8.1 % (2-11); Neutrophils Absolute Auto 4.8 x10*3/uL (2.0-8.3); Neutrophils Percent Auto 69.8 % (45-73); Platelet Count 150 X10*3/uL (160-400); Red Blood Count 3.04 X10*6/uL (4.20-5.50); Red Cell Distribution Width 14.3 % (11.0-16.0); White Blood Count 6.8 X10*3/uL (4.8-10.8)
[2022-02-09 20:55] LABS: INTERNATIONAL NORM RATIO 1.8 (0.9-1.1); Prothrombin Time 20.7 SEC (10.0-13.1)
[2022-02-09 21:01] LABS: Anion Gap 19 (12-20); Blood Urea Nitrogen 23 mg/dL (9-16); Calcium 8.1 mg/dL (8.4-10.2); Carbon Dioxide 24 mmol/L (22-29); Chloride 100 mmol/L (96-108); Creatinine Clr Calc Pharmacy 20.1; Estimated Glomerular Filt Rate 20; Glucose Random 139 mg/dL (60-115); Magnesium 1.8 mg/dL (1.6-2.6); Potassium 4.7 mmol/L (3.3-5.1); Sodium 138 mmol/L (135-145)
[2022-02-09 21:01] LABS: COVID-19 Test Negative (Negative)
[2022-02-09 21:06] VITALS: BP 140/75; PULSE 114; RESP 22; TEMP 36.7; O2SAT 98
[2022-02-09] MEDS: dilTIAZem HCL 50 MG/10 ML VIAL IVPUSH (21:12)
[2022-02-09 22:11] VITALS: BP 145/65; PULSE 101; RESP 19; TEMP 36.6; O2SAT 93
[2022-02-09 23:03] LABS: Troponin-I High Sensitivity 22.7 ng/L (<3.5-17.0)
== END 2022-02-10 00:20 | disposition home or self-care (01) ==
PROVIDERS: Emergency Provider Emergency Medicine
DX: I48.20 Chronic atrial fibrillation, unspecified (principal); G89.29 Other chronic pain; M79.671 Pain in right foot; M79.604 Pain in right leg; R60.0 Localized edema; Z20.822 Contact with and (suspected) exposure to COVID-19; E11.22 Type 2 diabetes mellitus with diabetic chronic kidney disease; I13.2 Hypertensive heart and chronic kidney disease with heart failure and with stage 5 chronic kidney disease, or end stage renal disease; I50.9 Heart failure, unspecified; N18.6 End stage renal disease; Z99.2 Dependence on renal dialysis; I48.0 Paroxysmal atrial fibrillation; Z79.4 Long term (current) use of insulin; Z79.01 Long term (current) use of anticoagulants; Z79.02 Long term (current) use of antithrombotics/antiplatelets; Z79.899 Other long term (current) drug therapy
CPT/HCPCS: 36415; 71045; 73630; 80048; 82550; 83735; 84484; 85025; 85610; 87635; 93005; 96374; 96376; 99284

== ENCOUNTER 2022-03-17 18:59 | Emergency (ER) | payer OTHER, SELFPAY ==
--- NOTE | ~2022-03-17 | XR_ITS ---
Examination: XR knee RT 3V, XR hip RT w PEL1V Indication: FAll Comparison: No pertinent prior studies are currently available for comparison. Technique: Frontal view pelvis with coned frontal and frog-leg lateral views of the right hip. 4 views of the right knee. Findings: Right hip/pelvis: Femoral heads both well-seated within the respected acetabula. Bones are normal anatomic alignment with no acute fracture or dislocation seen. Mild degenerative changes. Extensive vascular calcification. Bowel gas pattern unremarkable. Right knee: No significant knee joint effusion. Bones are normal anatomic alignment with no acute fracture or dislocation. Extensive vascular calcification. XR/XR knee RT 3V Impression: Mild degenerative changes but no acute bony abnormality.
--- NOTE | ~2022-03-17 | CT_ITS ---
EXAMINATION: CT HEAD WITHOUT CONTRAST CLINICAL INFORMATION: Right lower extremity weakness status post fall today COMPARISON: Head CT 08/16/2021 TECHNIQUE: Imaging was performed from the skull base to vertex without intravenous administration of contrast. This CT examination was performed using dose optimization techniques as appropriate, variously including the following: *Automated exposure control *Adjustment of mA and/or kV according to patient size (this includes techniques or standardized protocols for targeted exams where dose is matched to indication/reason for exam; i.e. extremities or head) *Use of iterative reconstruction technique Total exam dose length product: 642 mGy-cm FINDINGS: Approximately 2.3 x 2.1 x 2.6 cm intraparenchymal hematoma centered in the right basal ganglia with mild surrounding vasogenic edema and mild local mass effect. No midline shift or herniation. Basal cisterns are patent. No other intra or extra-axial fluid collection, hemorrhage, or mass. [place]-white matter differentiation is maintained. 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 Proportional prominence of the ventricles and sulcal spaces is consistent with mild volume loss. Patchy periventricular and deep white matter hypoattenuation is consistent with mild small vessel ischemic changes. Unchanged prior lacunar infarct in the left thalamus. No calvarial fracture or soft tissue abnormality. The mastoid air cells and visualized portions of the paranasal sinuses are well aerated. Status post bilateral lens extractions. CT/CT head/brain wo IV con IMPRESSION: 1. 2.3 x 2.1 x 2.6 cm intraparenchymal hematoma in the right basal ganglia with mild surrounding vasogenic edema and minimal local mass effect. No midline shift or herniation. 2. No other intracranial hemorrhage or calvarial fracture. This critical result was discussed with Dr. Alvarado at 9:36 PM on 03/17/2022 and it was ascertained that the content and urgency of the report was understood at the time of direct communication.
--- NOTE | ~2022-03-17 | XR_ITS ---
Examination: XR knee RT 3V, XR hip RT w PEL1V Indication: FAll Comparison: No pertinent prior studies are currently available for comparison. Technique: Frontal view pelvis with coned frontal and frog-leg lateral views of the right hip. 4 views of the right knee. Findings: Right hip/pelvis: Femoral heads both well-seated within the respected acetabula. Bones are normal anatomic alignment with no acute fracture or dislocation seen. Mild degenerative changes. Extensive vascular calcification. Bowel gas pattern unremarkable. Right knee: No significant knee joint effusion. Bones are normal anatomic alignment with no acute fracture or dislocation. Extensive vascular calcification. XR/XR hip RT w PEL1V Impression: Mild degenerative changes but no acute bony abnormality.
[2022-03-17 19:16] VITALS: BP 126/74; BP 181/71; PULSE 73; PULSE 80; RESP 18; O2SAT 100; O2SAT 96; BMI 38.2
[2022-03-17 19:22] VITALS: TEMP 36.4
--- NOTE | 2022-03-17 20:39 | ECG_ITS ---
Test Reason : FALL Blood Pressure : / mmHG Vent. Rate : 082 BPM Atrial Rate : 082 BPM P-R Int : 222 ms QRS Dur : 080 ms QT Int : 412 ms P-R-T Axes : 050 062 057 degrees QTc Int : 481 ms Poor data quality, interpretation may be adversely affected Sinus rhythm with 1st degree A-V block with Premature atrial complexes Otherwise normal ECG When compared with ECG of 09-FEB-2022 20:12, Sinus rhythm has replaced Atrial flutter Vent. rate has decreased BY 53 BPM Nonspecific T wave abnormality no longer evident in Lateral leads Referred By: Geovanna Alvarado Electronically Signed By:ASHLEY ZAMAN
--- NOTE | 2022-03-17 20:49 | ED_ITS ---
HPI - General Adult General Chief complaint: Extremity Problem Stated complaint: right sided weakness Time Seen by Provider: 03/17/22 20:39 Source: patient, EMS and diver helper Mode of arrival: EMS History of Present Illness HPI narrative: 76-year-old female with history of end-stage renal disease currently on dialysis, diabetes, who is brought in by EMS initially as a stroke alert and family stating that patient was endorsing right-sided weakness since approximately 14:00 earlier in the day. On immediate bedside evaluation stroke scale is 0. On further questioning with [employer] patient states that she actually fell in her kitchen earlier in the day and has had right lower extremity pain and weakness since that time. Patient has underlying difficulties with the right lower extremity that problems her to use a walker at baseline. Patient states that after she took her shower this evening she was unable to stand and due to underlying medical conditions of her family members they were unable to assist her to a standing position. She otherwise denies any fevers, chills, shortness of breath, chest pain or palpitations. She states that she underwent dialysis yesterday. Related Data Home Medications Medication Instructions Recorded Confirmed acetaminophen 325 mg tablet 650 mg PO Q6H PRN GENERAL 05/21/21 03/04/22 DISCOMFORT insulin lispro 100 unit/mL 2 - 10 unit subcut QIDACHS 11/06/21 03/04/22 subcutaneous pen melatonin 5 mg tablet 5 mg PO BEDTIME PRN Sleep 11/06/21 03/04/22 psyllium husk (as[place]ame) 3.4 gram 1 packet PO DAILY 11/06/21 03/04/22 oral powder packet (Metamucil Fiber Singles) sodium chloride 0.65 % nasal spray 2 spray intranasal Q2H PRN Dry 11/06/21 03/04/22 aerosol (Saline Nasal) Nasal Passages Previous Rx's Medication Instructions Recorded blood-glucose meter (FreeStyle #1 ea 04/13/21 Lite Meter kit) TRANSPORT WHEELCHAIR #1 ea 08/03/21 blood pressure monitor #1 ea 08/03/21 aspirin 81 mg tablet,delayed 81 mg PO DAILY #90 tabs 11/12/21 release blood sugar diagnostic (FreeStyle #300 ea 11/12/21 Lite Strips) blood-glucose meter (FreeStyle #1 ea 11/12/21 Lite Meter kit) cholecalciferol (vitamin D3) 25 25 mcg PO DAILY #90 tabs 11/12/21 mcg (1,000 unit) tablet guaifenesin 200 mg tablet 200 mg PO Q4H PRN congestion #20 11/12/21 tabs lancets 28 gauge (FreeStyle #100 ea 11/14/21 Lancets) Extra depth orthopedic shoes (1 #1 ea 11/16/21 pair) with customized heat molded multidensity innersoles (3 pair) cyanocobalamin (vitamin B-12) 1,000 mcg IM Q4W #1 mL 12/14/21 1,000 mcg/mL injection solution peg 3350 240 gram-electrolytes 240 ml PO Q10M #4,000 mL 12/19/21 22.72 gram-6.72 g-5.84 g powdr for soln montelukast 10 mg tablet 10 mg PO BEDTIME #90 tabs 02/03/22 loratadine 10 mg tablet 10 mg PO DAILY 90 days #90 tabs 02/04/22 pen needle, diabetic 32 gauge x #50 ea 02/04/22 (BD Sandra 2nd Gen Pen Needle) oxycodone 5 mg tablet 5 mg PO BID PRN pain #10 tabs 02/09/22 apixaban 5 mg tablet (Eliquis) 5 mg PO BID 90 days #180 tabs 02/11/22 ferrous sulfate 325 mg (65 mg 325 mg PO DAILY #90 tabs 02/11/22 iron) tablet levothyroxine 25 mcg tablet 25 mcg PO DAILY #90 tabs 02/18/22 atorvastatin 40 mg tablet 40 mg PO BEDTIME #90 tabs 03/07/22 gabapentin 100 mg capsule 100 mg PO BEDTIME #30 caps 03/07/22 insulin glargine 100 unit/mL (3 8 unit (0.08 mL) subcut QPM #15 mL 03/07/22 mL) subcutaneous pen (Lantus Solostar U-100 Insulin) pantoprazole 20 mg tablet,delayed 20 mg PO DAILY #90 tabs 03/08/22 release syringe with needle 3 mL 27 gauge #6 ea 03/08/22 x 1 06/26 diltiazem HCl 180 mg 180 mg PO DAILY #30 caps 03/12/22 capsule,extended release 24 hr Allergies Allergy/AdvReac Type Severity Reaction Status Date / Time No Known Allergies Allergy Verified 03/04/22 02:01 Review of Systems Review of Systems: Pertinent positives and negatives as stated in HPI 10 point review of systems is otherwise negative. [facility] Past Medical History Source: nursing notes reviewed Medical History Acute pericardial effusion Anemia Benign essential hypertension CAD (coronary artery disease) Dyspnea ESRD (end stage renal disease) GERD (gastroesophageal reflux disease) Hemodialysis patient HLD (hyperlipidemia) Hypothyroidism Iron deficiency Nephrotic range proteinuria Obesity (BMI 30-39.9) Osteoarthritis PAF (paroxysmal atrial fibrillation) Paroxysmal atrial fibrillation Pernicious anemia Pure hypercholesterolemia Toe amputee Type 2 diabetes mellitus Surgical History Hx of appendectomy S/P arteriovenous (AV) fistula creation Social History Social History Household Members: None Household Members Other:: self, son lives close by Housing: House Do you presently have visiting nurse or other home services: No Alcohol intake: never Patient Tobacco Use Status: Never used Tobacco e-Cigarette/Vaping Use: Never Used Second Hand Smoke Exposure: No Advance Directives: Yes Advance Directives Information Provided: No Advance Directives on File: No service: No Current occupational status: retired Cognitive needs: Yes Hearing needs: No Vision needs: No Physical Exam ED Vital Signs: Vital Signs - 24 hr 03/17/22 19:16 03/17/22 19:22 03/17/22 21:37 Temperature 97.6 F Pulse Rate 73 80 Respiratory Rate 18 16 Blood Pressure 181/71 H 150/78 H Pulse Oximetry 100 95 Oxygen Delivery Method Room Air Room Air BMI result Body Mass Index 38.2 VITAL SIGNS: Reviewed. GENERAL: Well developed, well nourished, in no acute distress. HEAD: Normocephalic/atraumatic EYES: PERRLA, EOMI EARS: Ext canals without abnormality OROPHARYNX: no oral lesions noted, posterior pharynx clear NECK: Supple, no adenopathy LUNGS: Normal breath sounds. No adventitious sounds or accessory muscle use. SpO2<100>; CHEST WALL: No pain on palpation and there is a dialysis catheter to the right upper chest wall. CARDIOVASCULAR: Regular rate and rhythm without noted murmurs, no JVD or lower extremity edema. ABDOMEN: Soft, non-tender, non-distended with bowel sounds. PELVIS: stable but tenderness on palpation to the right hip area MUSCULOSKELETAL: No tenderness, deformities, or effusions noted on gross inspe ction. EXTREMITIES: No cyanosis, clubbing or edema; RIGHT LOWER EXTREMITY: No erythema or swelling to the right knee, but pain on palpation. SKIN: Inspection of the skin reveals no rashes NEUROLOGIC: Alert and oriented x 4. Strength and sensation to light touch were grossly intact x 4, cranial nerves 2-12 are grossly intact, no facial asymmetry, no pronator drift, patient does have baseline differences due to metal plate in the right upper extremity.. NIH Stroke Scale Internal: Initial- Upon Arrival Level of Consciousness: Alert Level of Consciousness Questions: Answers both questions correctly Level of Consciousness Commands: Performs both tasks correctly Best Gaze: Normal Visual: No visual loss Facial Palsy: Normal Motor Arm (Right): No drift Motor Arm (Left): No drift Motor Leg (Right): No drift Motor Leg (Left): No drift Limb Ataxia: Absent Sensory: Normal Best Language: No aphasia Dysarthia: Normal Extinction and Inattention: No abnormality Score: 0 Course Course Course Narrative: 76-year-old female with history and clinical presentation most consistent with injury due to fall and no clinical suspicion for acute stroke. Review of all investigations demonstrates a right basal ganglia hematoma. Patient is on Eliquis and will receive Kcentra after ultrasound-guided IV access. Patient is aware of the results and findings and understands that she will be transferred. Reevaluation(s) Reevaluation #1: 2.3 x 2.1 x 2.6 cm intraparenchymal hematoma in the right basal ganglia with mild surrounding vasogenic edema and minimal local mass effect. No midline shift or herniation. Time: 21:36 Reevaluation #2: [place] [facility] [place] Time: 21:40 Procedures EJ/Peripheral Line Neck L: Time Out Performed: No Skin Cleansed in Sterile Fashion: Yes Size (gauge): 20 IV Secured and Dressing Applied: Yes Patient Tolerated Procedure: well Medical Decision Making Lab Data Result diagrams: 03/17/22 21:01 03/17/22 21:01 Labs: Lab Results 03/17/22 03/17/22 03/17/22 Range/Units 21:01 21:01 21: WBC 12.4 H (4.8-10.8) X10*3/uL RBC 3.82 L D (4.20-5.50) X10*6/uL Hgb 11.3 L (12.0-16.0) g/dl Hct 35.5 L (37.0-47.0) % MCV 92.9 (80.0-98.0) fL MCH 29.6 (27.0-33.0) pg MCHC 31.8 (31.0-35.0) g/dl RDW 14.0 (11.0-16.0) % Plt Count 176 (160-400) X10*3/uL MPV 10.6 (9.4-12.3) fL Immature Gran % (Auto) 0.3 (0.0-0.4) % Neut % (Auto) 83.3 H (45-73) % Lymph % (Auto) 6.9 L (20-40) % [place] % (Auto) 6.5 (2-11) % Eos % (Auto) 2.7 (0-4) % Baso % (Auto) 0.3 (0-2) % Lymph # (Auto) 0.9 L (1.2-4.9) X10*3/uL [place] # (Auto) 0.8 (0.1-1.2) X10*3/uL Eos # (Auto) 0.3 (0.0-0.4) X10*3/uL Baso # (Auto) 0.0 (0.0-0.2) X10*3/uL Abs Immat Gran (auto) 0.04 H (0.00-0.03) X10*3/uL Absolute Neuts (auto) 10.3 H (2.0-8.3) x10*3/uL Absolute Nucleated RBC 0.000 (0.0-0.012) X10*3/uL Nucleated RBC % (auto) 0.0 (0.0-0.2) /100WBC PT 18.6 H (10.0-13.1) SEC INR 1.6 H (0.9-1.1) Troponin I High Sens (<3.5-17.0) ng/L B-Natriuretic Peptide 710 H (<100) pg/mL 09/25/22 Range/Units 21:01 WBC (4.8-10.8) X10*3/uL RBC (4.20-5.50) X10*6/uL Hgb (12.0-16.0) g/dl Hct (37.0-47.0) % MCV (80.0-98.0) fL MCH (27.0-33.0) pg MCHC (31.0-35.0) g/dl RDW (11.0-16.0) % Plt Count (160-400) X10*3/uL MPV (9.4-12.3) fL Immature Gran % (Auto) (0.0-0.4) % Neut % (Auto) (45-73) % Lymph % (Auto) (20-40) % [place] % (Auto) (2-11) % Eos % (Auto) (0-4) % Baso % (Auto) (0-2) % Lymph # (Auto) (1.2-4.9) X10*3/uL [place] # (Auto) (0.1-1.2) X10*3/uL Eos # (Auto) (0.0-0.4) X10*3/uL Baso # (Auto) (0.0-0.2) X10*3/uL Abs Immat Gran (auto) (0.00-0.03) X10*3/uL Absolute Neuts (auto) (2.0-8.3) x10*3/uL Absolute Nucleated RBC (0.0-0.012) X10*3/uL Nucleated RBC % (auto) (0.0-0.2) /100WBC PT (10.0-13.1) SEC INR (0.9-1.1) Troponin I High Sens 33.1 H (<3.5-17.0) ng/L B-Natriuretic Peptide (<100) pg/mL ECG Data Attestation: I personally reviewed and interpreted this ECG as follows: Prior ECG tracings: available for review Interpretation: sinus rhythm, HR- 82, no STEMI, QRS/QTC are within normal limits. Critical Care Time Critical Care Time Critical Care Time: Yes Total Critical Care Time: 45 Attestation: I personally attest to this time spent taking care of the patient. Discharge Plan Discharge Clinical Impression: ICH (intracerebral hemorrhage), ESRD on dialysis Patient Disposition: Xfer Acute Care Hospital Transfer Details: right basal ganglia hematoma Prescriptions: No Action (DME) Extra depth orthopedic shoes (1 pair) with customized heat molded multidensity innersoles (3 pair) See Rx Instructions .Route .MEDSUPPLY Qty: 1 0RF Rx Instructions: As directed cyanocobalamin (vitamin B-12) 1,000 mcg/mL solution 1,000 mcg IM Q4W Qty: 1 3RF montelukast 10 mg tablet 10 mg PO BEDTIME Qty: 90 0RF (DME) pen needle, diabetic [BD Sandra 2nd Gen Pen Needle] 32 gauge x /32 needle See Rx Instructions .Route Qty: 50 0RF Rx Instructions: As directed loratadine 10 mg tablet 10 mg PO DAILY 90 Days Qty: 90 0RF Rx Instructions: Take 1 tablet by mouth daily ferrous sulfate 325 mg (65 mg iron) tablet 325 mg PO DAILY Qty: 90 0RF Eliquis 5 mg tablet 5 mg PO BID 90 Days Qty: 180 0RF levothyroxine 25 mcg tablet 25 mcg PO DAILY Qty: 90 0RF insulin glargine [Lantus Solostar U-100 Insulin] 100 unit/mL (3 mL) insulin pen 8 unit subcut QPM Qty: 15 1RF gabapentin 100 mg capsule 100 mg PO BEDTIME Qty: 30 1RF atorvastatin 40 mg tablet 40 mg PO BEDTIME Qty: 90 0RF (DME) syringe with needle 3 mL 27 gauge x 1 1/4 syringe See Rx Instructions .Route Qty: 6 1RF Rx Instructions: As directed once a month (for Vitamin B12 injections) pantoprazole 20 mg tablet,delayed release (DR/EC) 20 mg PO DAILY Qty: 90 0RF diltiazem HCl 180 mg capsule,extended release 24hr 180 mg PO DAILY Qty: 30 2RF acetaminophen 325 mg Tablet 650 mg PO Q6H PRN (Reason: GENERAL DISCOMFORT) insulin lispro 100 unit/mL insulin pen 2 - 10 unit subcut QIDACHS Metamucil Fiber Singles 3.4 gram Powder In Packet 1 packet PO DAILY Saline Nasal 0.65 % Aerosol,[place] 2 spray INTRANASAL Q2H PRN (Reason: Dry Nasal Passages) melatonin 5 mg Tablet 5 mg PO BEDTIME PRN (Reason: Sleep) oxycodone 5 mg tablet 5 mg PO BID PRN (Reason: pain) Qty: 10 0RF Rx Instructions: Partial Fill upon patient request. [place] [facility] [place] blood-glucose [place] [FreeStyle Lite Meter] Kit See Rx Instructions .Route Qty: 1 0RF Rx Instructions: As directed [place] [place] TRANSPORT WHEELCHAIR See Rx Instructions .Route .MEDSUPPLY Qty: 1 0RF Rx Instructions: As directed [place] [place] blood pressure monitor Kit See Rx Instructions .Route Qty: 1 0RF Rx Instructions: As directed [place] [place] FreeStyle Lite Strips Strip See Rx Instructions .ROUTE .MEDSUPPLY Qty: 300 3RF Rx Instructions: check bs 3-4X/DAY (DME) blood-glucose meter [FreeStyle Lite Meter] Kit See Rx Instructions .Route Qty: 1 0RF Rx Instructions: As directed 3-4 times a day aspirin 81 mg tablet,delayed release (DR/EC) 81 mg PO DAILY Qty: 90 0RF cholecalciferol (vitamin D3) 25 mcg (1,000 unit) tablet 25 mcg PO DAILY Qty: 90 0RF guaifenesin 200 mg tablet 200 mg PO Q4H PRN (Reason: congestion) Qty: 20 0RF (DME) lancets [FreeStyle Lancets] 28 gauge misc See Rx Instructions .ROUTE .MEDSUPPLY Qty: 100 0RF Rx Instructions: check BS 3x/day peg 3350-electrolytes 240-22.72-6.72 -5.84 gram recon soln 240 ml PO Q10M Qty: 4000 0RF Rx Instructions: until fecal effluent is clear
[2022-03-17 21:06] LABS: MANUAL DIFF FLAG NO
[2022-03-17 21:18] LABS: Basophils Percent Auto 0.3 % (0-2); Eosinophils Absolute Auto 0.3 X10*3/uL (0.0-0.4); Eosinophils Percent Auto 2.7 % (0-4); Hematocrit 35.5 % (37.0-47.0); Hemoglobin 11.3 g/dl (12.0-16.0); Imm Gran Abs Auto 0.04 X10*3/uL (0.00-0.03); Imm Gran Pct Auto 0.3 % (0.0-0.4); Lymphocytes Absolute Auto 0.9 X10*3/uL (1.2-4.9); Lymphocytes Percent Auto 6.9 % (20-40); Mean Corpuscular HGB Conc 31.8 g/dl (31.0-35.0); Mean Corpuscular Hemoglobin 29.6 pg (27.0-33.0); Mean Corpuscular Volume 92.9 fL (80.0-98.0); Mean Platelet Volume 10.6 fL (9.4-12.3); Monocytes Absolute Auto 0.8 X10*3/uL (0.1-1.2); Monocytes Percent Auto 6.5 % (2-11); Neutrophils Absolute Auto 10.3 x10*3/uL (2.0-8.3); Neutrophils Percent Auto 83.3 % (45-73); Platelet Count 176 X10*3/uL (160-400); Red Blood Count 3.82 X10*6/uL (4.20-5.50); White Blood Count 12.4 X10*3/uL (4.8-10.8)
[2022-03-17 21:25] LABS: INTERNATIONAL NORM RATIO 1.6 (0.9-1.1); Prothrombin Time 18.6 SEC (10.0-13.1)
[2022-03-17 21:37] VITALS: BP 150/78; PULSE 80; RESP 16; O2SAT 95
--- NOTE | 2022-03-17 21:40 | PC.NURSE ---
call out to [facility] TRANSFER LINE @[phone]
[2022-03-17 21:45] LABS: B Type Natriuretic Peptide 710 pg/mL (<100)
[2022-03-17 21:46] LABS: Troponin-I High Sensitivity 33.1 ng/L (<3.5-17.0)
[2022-03-17 22:01] LABS: Alanine Aminotransferase 9 U/L (0-31); Alkaline Phosphatase 126 U/L (39-117); Anion Gap 18 (12-20); Aspartate Amino Transferase 15 U/L (5-31); Bilirubin Total 0.6 mg/dL (0.0-1.0); Blood Urea Nitrogen 43 mg/dL (9-16); Calcium 8.6 mg/dL (8.4-10.2); Carbon Dioxide 24 mmol/L (22-29); Chloride 96 mmol/L (96-108); Estimated Glomerular Filt Rate 11; Glucose Random 152 mg/dL (60-115); Potassium 4.1 mmol/L (3.3-5.1); Sodium 134 mmol/L (135-145); Total Protein 6.8 g/dL (6.5-8.0)
[2022-03-17 22:07] LABS: COVID-19 Test Negative (Negative)
--- NOTE | 2022-03-17 22:13 | PC.NURSE ---
BED ASSIGNMENT [facility] ROOM 221 NURSE TO NURSE ROOM 221 NURSE TO NURSE [phone] ACCEPTING
[2022-03-17 22:29] VITALS: BP 123/88; PULSE 82; RESP 16; O2SAT 99
--- NOTE | 2022-03-17 22:40 | PC.NURSE ---
kcentra started at 2240. running over 15 mins per pharmacy verbal order.
--- NOTE | 2022-03-17 22:50 | PC.NURSE ---
call out to [facility] @[phone] to book STAT ALS transfer to [facility] call back at @[phone] for an update on ALS truck. [facility] informed me they can not accommodate an ALS truck for transport
--- NOTE | 2022-03-17 22:57 | PC.NURSE ---
call out to [facility] @[phone] regarding transfer to [facility]. [facility] declined ground and air transport
[2022-03-17 23:24] VITALS: BP 160/83; PULSE 76; RESP 20; O2SAT 93
--- NOTE | 2022-03-17 23:35 | PC.NURSE ---
Call out to [facility] @[phone] downgrading the request from ALS to BLS. [facility] informed me they have no BLS or ALS available patient will be on the top of the list for either BLS or ALS TRANSPORT
[2022-03-17] MEDS: niCARdipine HCL 25 MG in 0.9 % Sodium Chloride 250 ML 52 MG IVCONT (23:49)
--- NOTE | 2022-03-18 00:04 | PC.NURSE ---
Call out to [facility] @0004 regarding transfer to [facility] by air. [facility] declined transport.
[2022-03-18 00:30] VITALS: BP 125/67
[2022-03-18 00:38] VITALS: BP 125/67
--- NOTE | 2022-03-18 00:40 | PC.NURSE ---
@7609 nicardipine drip started to keep SBP < 140, per MD orders. started at 5mg/hr per protocol order in aug. @0030 pt BP down to 125/67. drip paused and documented in aug.
[2022-03-18 00:57] VITALS: BP 162/97
--- NOTE | 2022-03-18 00:58 | PC.NURSE ---
nicardipime drip resumed @0057 @5mg/hr for BP back up to 162/97
--- NOTE | 2022-03-18 01:08 | PC.NURSE ---
[facility] called at 0105 for an ALS stat transfer to [facility] [place] 30 to 40 Mins. RN and aware
[2022-03-18 01:23] LABS: Glucose, Whole Blood 109 mg/dL (60-115)
--- NOTE | 2022-03-18 02:30 | PC.NURSE ---
[place] with [place] [facility] @approx 0200 . nicardipine drip paused. nurse to nurse report attempted twice to [facility] but no answer .
== END 2022-03-18 02:00 | disposition short-term general hospital (02) ==
PROVIDERS: Emergency Provider Student in an Organized Health Care Education/Training Program; PCP Internal Medicine
DX: S06.369A Traumatic hemorrhage of cerebrum, unspecified, with loss of consciousness of unspecified duration, initial encounter (principal); E11.22 Type 2 diabetes mellitus with diabetic chronic kidney disease; N18.6 End stage renal disease; R51.9 Headache, unspecified; R06.02 Shortness of breath; R10.2 Pelvic and perineal pain; M25.562 Pain in left knee; R29.700 NIHSS score 0; I25.10 Atherosclerotic heart disease of native coronary artery without angina pectoris; W19.XXXA Unspecified fall, initial encounter; Y93.9 Activity, unspecified; Y92.9 Unspecified place or not applicable; Y99.9 Unspecified external cause status; Z20.822 Contact with and (suspected) exposure to COVID-19; Z79.4 Long term (current) use of insulin; Z99.2 Dependence on renal dialysis; Z79.899 Other long term (current) drug therapy
CPT/HCPCS: 36415; 36569; 70450; 73502; 73562; 80053; 82947; 83880; 84484; 85025; 85610; 87635; 93005; 96365; 96366; 99285; J7168

== ENCOUNTER 2022-04-08 17:20 | Inpatient (IN) | payer OTHER, SELFPAY ==
[2022-04-08 17:29] VITALS: BP 128/84; BP 157/67; PULSE 77; PULSE 92; RESP 14; TEMP 36.6; O2SAT 98; O2SAT 99; BMI 32.7
[2022-04-08 17:32] VITALS: BP 129/75; PULSE 76; RESP 15; O2SAT 98
--- NOTE | 2022-04-08 17:39 | ECG_ITS ---
Test Reason : general medical Blood Pressure : / mmHG Vent. Rate : 072 BPM Atrial Rate : 072 BPM P-R Int : 204 ms QRS Dur : 078 ms QT Int : 398 ms P-R-T Axes : 067 051 034 degrees QTc Int : 435 ms Normal sinus rhythm with 1st degree A-V block Otherwise normal ECG When compared with ECG of 17-MAR-2022 21:35, Premature atrial complexes are no longer Present Referred By: Kylee Gaitan Electronically Signed By:JANIE ISAACS MD
--- NOTE | 2022-04-08 17:40 | ED_ITS ---
HPI - Weakness General Chief complaint: Weakness Stated complaint: general weakess Time Seen by Provider: 04/08/22 17:26 Source: patient and EMS Mode of arrival: EMS Limitations: no limitations History of Present Illness HPI Narrative: Patient comes to the emergency room from home via EMS. Patient was discharged t vianey from [facility]term rehab. The patient reports that 3 weeks ago she had a CVA. Patient was taken home today, when she was walking from the car to work the house, patient had a hard time walking up the steps. Also, patient was sitting on the couch, need to get up to go to the bathroom, she was too weak to do so. The family called 911, they are requesting long-term care for the patient, they do not believe that they can take care of her at home, although they already have scheduled visiting nurses to start coming to see the patient. Visits weakness, patient has no other complaints. Patient states that she has chronic right arm weakness, initially from a fracture sustained several years ago, aggravated by the CVA. Patient states that at the short-term rehab facility, she was already weak but did not tell anyone that she was feeling weak Related Data Home Medications Medication Instructions Recorded Confirmed acetaminophen 325 mg tablet 650 mg PO Q6H PRN GENERAL 05/21/21 03/04/22 DISCOMFORT insulin lispro 100 unit/mL 2 - 10 unit subcut QIDACHS 11/06/21 03/04/22 subcutaneous pen melatonin 5 mg tablet 5 mg PO BEDTIME PRN Sleep 11/06/21 03/04/22 psyllium husk (aspartame) 3.4 gram 1 packet PO DAILY 11/06/21 03/04/22 oral powder packet (Metamucil Fiber Singles) sodium chloride 0.65 % nasal spray 2 spray intranasal Q2H PRN Dry 11/06/21 03/04/22 aerosol (Saline Nasal) Nasal Passages Previous Rx's Medication Instructions Recorded blood-glucose meter (FreeStyle #1 ea 04/13/21 Lite Meter kit) TRANSPORT WHEELCHAIR #1 ea 08/03/21 blood pressure monitor #1 ea 08/03/21 aspirin 81 mg tablet,delayed 81 mg PO DAILY #90 tabs 11/12/21 release blood sugar diagnostic (FreeStyle #300 ea 11/12/21 Lite Strips) blood-glucose meter (FreeStyle #1 ea 11/12/21 Lite Meter kit) cholecalciferol (vitamin D3) 25 25 mcg PO DAILY #90 tabs 11/12/21 mcg (1,000 unit) tablet guaifenesin 200 mg tablet 200 mg PO Q4H PRN congestion #20 11/12/21 tabs lancets 28 gauge (FreeStyle #100 ea 11/14/21 Lancets) Extra depth orthopedic shoes (1 #1 ea 11/16/21 pair) with customized heat molded multidensity innersoles (3 pair) cyanocobalamin (vitamin B-12) 1,000 mcg IM Q4W #1 mL 12/14/21 1,000 mcg/mL injection solution peg 3350 240 gram-electrolytes 240 ml PO Q10M #4,000 mL 12/19/21 22.72 gram-6.72 g-5.84 g powdr for soln montelukast 10 mg tablet 10 mg PO BEDTIME #90 tabs 02/03/22 loratadine 10 mg tablet 10 mg PO DAILY 90 days #90 tabs 02/04/22 pen needle, diabetic 32 gauge x #50 ea 02/04/22 (BD Sandra 2nd Gen Pen Needle) oxycodone 5 mg tablet 5 mg PO BID PRN pain #10 tabs 02/09/22 apixaban 5 mg tablet (Eliquis) 5 mg PO BID 90 days #180 tabs 02/11/22 ferrous sulfate 325 mg (65 mg 325 mg PO DAILY #90 tabs 02/11/22 iron) tablet levothyroxine 25 mcg tablet 25 mcg PO DAILY #90 tabs 02/18/22 atorvastatin 40 mg tablet 40 mg PO BEDTIME #90 tabs 03/07/22 gabapentin 100 mg capsule 100 mg PO BEDTIME #30 caps 03/07/22 insulin glargine 100 unit/mL (3 8 unit (0.08 mL) subcut QPM #15 mL 03/07/22 mL) subcutaneous pen (Lantus Solostar U-100 Insulin) pantoprazole 20 mg tablet,delayed 20 mg PO DAILY #90 tabs 03/08/22 release syringe with needle 3 mL 27 gauge #6 ea 03/08/22 x 1 / diltiazem HCl 180 mg 180 mg PO DAILY #30 caps 03/12/22 capsule,extended release 24 hr Allergies Allergy/AdvReac Type Severity Reaction Status Date / Time No Known Allergies Allergy Verified 03/04/22 02:01 Review of Systems Review of Systems: Constitutional : No Weight loss, No Fever, No Chills, No Night Sweats, No Fatigue, No Malaise ENT/Mouth : No Hearing loss, No Ear Pain, No Nasal Congestion, No Sinus Pain, No Hoarseness, No sore throat, No Rhinorrhea, No Swallowing Difficulty Eyes: No Eye Pain, No Swelling, No Redness, No Foreign Body, No Discharge, No Vision Changes Cardiovascular : No Chest Pain, No SOB, No Dyspnea on Exertion, No Orthopnea, No Edema, No Palpitations Respiratory : No Cough, No Sputum, No Wheezing, No Smoke Exposure, No Dyspnea Gastrointestinal : No Nausea, No Vomiting, No Diarrhea, No Constipation, No abdominal Pain, No Hematochezia, No Melena Genitourinary : no irregular bleeding, No Dysuria, No Urinary Frequency, No Jose C turia, No Urinary Incontinence, No Urgency, No Flank Pain, No Urinary Flow Changes, No Hesitancy Musculoskeletal : No joint pain, No Myalgias, No Joint Swelling Skin : No Skin Lesions, No rash Neuro : Denies headache or dizziness, complaining of weakness on her right arm from the CVA, bilateral lower extremity weakness without loss of motor function Psych : No Anxiety/Panic, No Depression, No SI/HI/AH/VH, No Social Issues, Heme/Lymph: No Bruising, No Bleeding,No Lymphadenopathy Endocrine : No Polyuria, No Polydipsia, No Temperature Intolerance PMFSH Past Medical History Medical History Acute pericardial effusion Anemia Benign essential hypertension CAD (coronary artery disease) Dyspnea ESRD (end stage renal disease) GERD (gastroesophageal reflux disease) Hemodialysis patient HLD (hyperlipidemia) Hypothyroidism Iron deficiency Nephrotic range proteinuria Obesity (BMI 30-39.9) Osteoarthritis PAF (paroxysmal atrial fibrillation) Paroxysmal atrial fibrillation Pernicious anemia Pure hypercholesterolemia Toe amputee Type 2 diabetes mellitus Surgical History Hx of appendectomy S/P arteriovenous (AV) fistula creation Social History Social History Household Members: None Household Members Other:: self, son lives close by Housing: House Do you presently have visiting nurse or other home services: No Alcohol intake: never Patient Tobacco Use Status: Never used Tobacco e-Cigarette/Vaping Use: Never Used Second Hand Smoke Exposure: No Advance Directives: No Advance Directives Information Provided: No service: No Current occupational status: retired Cognitive needs: Yes Hearing needs: No Vision needs: No Physical Exam Vital Signs: Vital Signs: Last Vital Signs Temp 98.7 F 04/08/22 22:26 Pulse 80 04/08/22 22:26 Resp 14 04/08/22 22:26 BP 211/173 H 04/08/22 22:26 Pulse Ox 97 04/08/22 22:26 O2 Del Method 04/08/22 22:26 BMI result Body Mass Index 32.7 Const: Other: Appearance: Alert. Oriented X3. No acute distress. Eyes: Pupils equal, round and reactive to light. ENT: Pharynx normal. Neck: Normal inspection. Neck supple. No lymph nodes noted. No crepitus CVS: Normal heart rate and rhythm. Pulses normal. Normal S1 and S2 Respiratory: No respiratory distress. Breath sounds normal. No Wheezing. No rales Abdomen: Soft and nontender. No rigidity. No distention. Skin: Skin warm and dry. Normal skin color. Normal skin turgor. Extremities: +1 nonpitting edema bilaterally, able to move both legs within normal limits, unwilling to try standing due to fear of falling Neuro: Oriented X 3. Moving all extremities except the right arm, No slurred speech. CN 2 through 12 grossly intact Psych: calm, cooperative, normal affect Course Course Course Narrative: We will check patient's basic labs. An elevated BUN and creatinine is expected, patient is due for dialysis tomorrow. Case management has been made aware of patient's living/social situation, family cannot take care of the patient. Patient's blood pressure 202/70, patient given 50 mg of hydralazine. Patient has no chest pain or shortness of breath. Patient had a sodium of 125, I discussed the sodium level and management with Dr. Brown from Nephrology. At this time, we will not treat aggressively, patient is due for dialysis tomorrow, it is likely that patient has a free water excess of 3-4 L which will be addressed tomorrow during dialysis. Physician observation started at 20:15, case management is already aware of the patient. Patient will need dialysis tomorrow morning. I spoke with Case Management. It is unlikely that patient will get placement tomorrow. Our special education case manager contacted the patient's family, they are not necessarily looking for long-term placement, they need more short-term rehab. However, placement with a place that has dialysis is unlikely to happen in the morning or in the afternoon tomorrow. Therefore, recommendations are to admit the patient, consult Nephrology and have the patient dialyzed, as Case Management will be working on placement simultaneously I discussed the patient with Dr. Lam, patient being admitted. Patient will need dialysis in the morning MDM - Weakness Lab Data Result diagrams: 04/08/22 18:24 04/08/22 18:24 Labs: Lab Results 04/08/22 04/08/22 04/08/22 Range/Units 18:24 18:24 18:24 WBC 11.6 H (4.8-10.8) X10*3/uL RBC 3.56 L (4.20-5.50) X10*6/uL Hgb 10.7 L (12.0-16.0) g/dl Hct 31.5 L (37.0-47.0) % MCV 88.5 (80.0-98.0) fL MCH 30.1 (27.0-33.0) pg MCHC 34.0 (31.0-35.0) g/dl RDW 13.9 (11.0-16.0) % Plt Count 165 (160-400) X10*3/uL MPV 9.3 L (9.4-12.3) fL Immature Gran % (Auto) 0.4 (0.0-0.4) % Neut % (Auto) 79.3 H (45-73) % Lymph % (Auto) 8.5 L (20-40) % [place] % (Auto) 5.4 (2-11) % Eos % (Auto) 5.8 H (0-4) % Baso % (Auto) 0.6 (0-2) % Lymph # (Auto) 1.0 L (1.2-4.9) X10*3/uL [place] # (Auto) 0.6 (0.1-1.2) X10*3/uL Eos # (Auto) 0.7 H (0.0-0.4) X10*3/uL Baso # (Auto) 0.1 (0.0-0.2) X10*3/uL Abs Immat Gran (auto) 0.05 H (0.00-0.03) X10*3/uL Absolute Neuts (auto) 9.2 H (2.0-8.3) x10*3/uL Absolute Nucleated RBC 0.000 (0.0-0.012) X10*3/uL Nucleated RBC % (auto) 0.0 (0.0-0.2) /100WBC Sodium 125 L (135-145) mmol/L Potassium 5.1 D (3.3-5.1) mmol/L Chloride 89 L (96-108) mmol/L Carbon Dioxide 20 L (22-29) mmol/L Anion Gap 21 H (12-20) BUN 46 H (9-16) mg/dL Creatinine 5.49 H* (0.5-1.4) mg/dL Estim Creat Clear Calc 9.9 Estimated GFR 8 Random Glucose 234 H (60-115) mg/dL Calcium 8.6 (8.4-10.2) mg/dL Total Bilirubin 0.5 (0.0-1.0) mg/dL Direct Bilirubin 0.2 (0.0-0.5) mg/dL AST 19 (5-31) U/L ALT 12 (0-31) U/L Alkaline Phosphatase 119 H (39-117) U/L Troponin I High Sens 30.0 H (<3.5-17.0) ng/L B-Natriuretic Peptide 899 H (<100) pg/mL Total Protein 6.8 (6.5-8.0) g/dL Albumin 3.9 (3.5-5.0) g/dL COVID-19 (GLENNA) (Negative) COVID-19 Clin Com 04/08/22 Range/Units 18:24 WBC (4.8-10.8) X10*3/uL RBC (4.20-5.50) X10*6/uL Hgb (12.0-16.0) g/dl Hct (37.0-47.0) % MCV (80.0-98.0) fL MCH (27.0-33.0) pg MCHC (31.0-35.0) g/dl RDW (11.0-16.0) % Plt Count (160-400) X10*3/uL MPV (9.4-12.3) fL Immature Gran % (Auto) (0.0-0.4) % Neut % (Auto) (45-73) % Lymph % (Auto) (20-40) % Stonewall % (Auto) (2-11) % Eos % (Auto) (0-4) % Baso % (Auto) (0-2) % Lymph # (Auto) (1.2-4.9) X10*3/uL [place] # (Auto) (0.1-1.2) X10*3/uL Eos # (Auto) (0.0-0.4) X10*3/uL Baso # (Auto) (0.0-0.2) X10*3/uL Abs Immat Gran (auto) (0.00-0.03) X10*3/uL Absolute Neuts (auto) (2.0-8.3) x10*3/uL Absolute Nucleated RBC (0.0-0.012) X10*3/uL Nucleated RBC % (auto) (0.0-0.2) /100WBC Sodium (135-145) mmol/L Potassium (3.3-5.1) mmol/L Chloride (96-108) mmol/L Carbon Dioxide (22-29) mmol/L Anion Gap (12-20) BUN (9-16) mg/dL Creatinine (0.5-1.4) mg/dL Estim Creat Clear Calc Estimated GFR Random Glucose (60-115) mg/dL Calcium (8.4-10.2) mg/dL Total Bilirubin (0.0-1.0) mg/dL Direct Bilirubin (0.0-0.5) mg/dL AST (5-31) U/L ALT (0-31) U/L Alkaline Phosphatase (39-117) U/L Troponin I High Sens (<3.5-17.0) ng/L B-Natriuretic Peptide (<100) pg/mL Total Protein (6.5-8.0) g/dL Albumin (3.5-5.0) g/dL COVID-19 (GLENNA) Negative (Negative) COVID-19 Clin Com See Note Discharge Plan Discharge Clinical Impression: Weakness, Hypertension, Chronic kidney disease, stage 4 (severe) Patient Disposition: Admitted As Inpatient
[2022-04-08 18:31] LABS: MANUAL DIFF FLAG NO
[2022-04-08 18:33] LABS: Basophils Absolute Auto 0.1 X10*3/uL (0.0-0.2); Basophils Percent Auto 0.6 % (0-2); Eosinophils Absolute Auto 0.7 X10*3/uL (0.0-0.4); Eosinophils Percent Auto 5.8 % (0-4); Hematocrit 31.5 % (37.0-47.0); Hemoglobin 10.7 g/dl (12.0-16.0); Imm Gran Abs Auto 0.05 X10*3/uL (0.00-0.03); Imm Gran Pct Auto 0.4 % (0.0-0.4); Lymphocytes Percent Auto 8.5 % (20-40); Mean Corpuscular Hemoglobin 30.1 pg (27.0-33.0); Mean Corpuscular Volume 88.5 fL (80.0-98.0); Mean Platelet Volume 9.3 fL (9.4-12.3); Monocytes Absolute Auto 0.6 X10*3/uL (0.1-1.2); Monocytes Percent Auto 5.4 % (2-11); Neutrophils Absolute Auto 9.2 x10*3/uL (2.0-8.3); Neutrophils Percent Auto 79.3 % (45-73); Platelet Count 165 X10*3/uL (160-400); Red Blood Count 3.56 X10*6/uL (4.20-5.50); Red Cell Distribution Width 13.9 % (11.0-16.0); White Blood Count 11.6 X10*3/uL (4.8-10.8)
[2022-04-08 18:46] VITALS: BP 202/70; PULSE 77; RESP 18; TEMP 36.4; O2SAT 97
[2022-04-08 18:46] LABS: COVID-19 Test Negative (Negative); IDNOW Serial# 55D5AD1C
[2022-04-08 18:54] LABS: B Type Natriuretic Peptide 899 pg/mL (<100)
[2022-04-08 18:58] LABS: Alanine Aminotransferase 12 U/L (0-31); Albumin Level 3.9 g/dL (3.5-5.0); Alkaline Phosphatase 119 U/L (39-117); Anion Gap 21 (12-20); Aspartate Amino Transferase 19 U/L (5-31); Bilirubin Direct 0.2 mg/dL (0.0-0.5); Bilirubin Total 0.5 mg/dL (0.0-1.0); Blood Urea Nitrogen 46 mg/dL (9-16); Calcium 8.6 mg/dL (8.4-10.2); Carbon Dioxide 20 mmol/L (22-29); Chloride 89 mmol/L (96-108); Creatinine Clr Calc Pharmacy 9.9; Estimated Glomerular Filt Rate 8; Glucose Random 234 mg/dL (60-115); Potassium 5.1 mmol/L (3.3-5.1); Sodium 125 mmol/L (135-145); Total Protein 6.8 g/dL (6.5-8.0)
[2022-04-08] MEDS: hydrALAZINE HCl 50 MG TABLET PO (19:59)
[2022-04-08 22:26] VITALS: BP 211/173; PULSE 80; RESP 14; TEMP 37.1; O2SAT 97
--- NOTE | 2022-04-08 22:46 | P.HPHOSP_ITS ---
History of Present Illness Date of Service: 04/08/22 Chief Complaint: Weakness Patient is English-speaking, history is obtained with the help of an classification clerk 76-year-old female with past medical history of chronic hyponatremia, hyperkalemia, end-stage renal disease on dialysis Friday,, anemia, bradycardia, diabetes, hyperlipidemia, hyperparathyroidism, AFib not on anticoagulation HTN, who was discharged from rehab center on 04/08 and returns to the hospital today stating that she had to significant of weakness to come home. Patient apparently was seen at [facility] on 03/17 was found to have hemorrhagic stroke with right-sided weakness, she was transferred to [facility] and then to [facility]. Patient was also seen at [facility] on 03/26 for severe bradycardia that was attributed to hyperkalemia due to missed dialysis, patient id was then discharged to rehab center. She reports that she came home today but has significant weakness, was unable to walk, she almost had a fall again, therefore family felt that she was too weak to stay home and brought her back to the hospital. She denies any new weakness, reports no headache, no change in vision, no numbness or tingling, no change in speech, no droopiness of face, no abdominal pain, no chest pain, nausea or vomiting, no shortness of breath, no diarrhea constipation, no urinary symptoms and no lower extremity edema. On arrival to the ED patient hemodynamically stable with an elevated blood pressure Labs are significant for WBC count 11.6 which is lower than her previous, hemoglobin of 10.7, hematocrit 31.5, sodium of 125 with a previous of 134, chloride of 89, BUN of 46, creatinine of 5.49, potassium 5.1, troponin of 30, BNP of 899, Case was discussed with Nephrology, and patient will be admitted for dialysis in a.m. Review of Systems Review of Systems: Yes all other systems are reviewed and are negative [facility] Medical History Acute pericardial effusion Anemia Benign essential hypertension CAD (coronary artery disease) Dyspnea ESRD (end stage renal disease) GERD (gastroesophageal reflux disease) Hemodialysis patient HLD (hyperlipidemia) Hypothyroidism Iron deficiency Nephrotic range proteinuria Obesity (BMI 30-39.9) Osteoarthritis PAF (paroxysmal atrial fibrillation) Paroxysmal atrial fibrillation Pernicious anemia Pure hypercholesterolemia Toe amputee Type 2 diabetes mellitus Surgical History Hx of appendectomy S/P arteriovenous (AV) fistula creation Social History Household Members: None Household Members Other:: self, son lives close by Housing: House Do you presently have visiting nurse or other home services: No Alcohol intake: never Patient Tobacco Use Status: Never used Tobacco e-Cigarette/Vaping Use: Never Used Second Hand Smoke Exposure: No Advance Directives: No Advance Directives Information Provided: No service: No Current occupational status: retired Cognitive needs: Yes Hearing needs: No Vision needs: No Meds Allergies Allergy/AdvReac Type Severity Reaction Status Date / Time No Known Allergies Allergy Verified 03/04/22 02:01 Home Medications Medication Instructions Recorded Confirmed Last Taken Type acetaminophen 325 mg tablet 650 mg PO Q6H PRN GENERAL 05/21/21 04/09/22 04/08/22 History DISCOMFORT melatonin 5 mg tablet 5 mg PO BEDTIME PRN Sleep 11/06/21 03/04/22 Unknown History psyllium husk (aspartame) 3.4 gram 1 packet PO DAILY 11/06/21 03/04/22 Unknown History oral powder packet (Metamucil Fiber Singles) sodium chloride 0.65 % nasal spray 2 spray intranasal Q2H PRN Dry 11/06/21 03/04/22 Unknown History aerosol (Saline Nasal) Nasal Passages hydralazine 10 mg tablet 10 mg PO DAILY 04/09/22 04/09/22 Unknown History Physical Exam Vital Signs and Narrative: Vital Signs: Last Vital Signs Temp 98.7 F 04/08/22 22:26 Pulse 80 04/08/22 22:26 Resp 14 04/08/22 22:26 BP 211/173 H 04/08/22 22:26 Pulse Ox 97 04/08/22 22:26 O2 Del Method 04/08/22 22:26 BMI result Body Mass Index 32.7 Const: General: cooperative and no acute distress Orientation/consciousness: patient oriented x3 Eyes: General: appearance normal, both eyes and all related structures Pupils: Equal, round and reactive pupils present Resp: Effort & Inspection: normal respiratory effort Auscultation: clear to auscultation bilaterally Cardio: Rate: regular rate Rhythm: regular rhythm GI: Palpation (GI): Soft to palpation Auscultation: normal bowel sounds Skin: General skin exam: no rashes or lesions noted Neuro: Other: Has slight weakness on the right upper extremity and right lower extremity. General: patient oriented x3 Cranial nerves: Yes Equal, round and reactive pupils present Cognition (Neuro): normal cognition Extrem: General: Yes normal to inspection and Yes no pedal edema Results Labs CBC and Chem 7: 04/08/22 18:24 04/08/22 18:24 Labs: Laboratory Results - last 24 hr 04/08/22 04/08/22 04/08/22 18:24 18:24 18:24 MCV 88.5 MCH 30.1 MCHC 34.0 RDW 13.9 Plt Count 165 MPV 9.3 L Immature Gran % (Auto) 0.4 Neut % (Auto) 79.3 H Lymph % (Auto) 8.5 L [place] % (Auto) 5.4 Eos % (Auto) 5.8 H Baso % (Auto) 0.6 Lymph # (Auto) 1.0 L [place] # (Auto) 0.6 Eos # (Auto) 0.7 H Baso # (Auto) 0.1 Abs Immat Gran (auto) 0.05 H Absolute Neuts (auto) 9.2 H Absolute Nucleated RBC 0.000 Nucleated RBC % (auto) 0.0 Anion Gap 21 H Estim Creat Clear Calc 9.9 Estimated GFR 8 Random Glucose 234 H Calcium 8.6 Total Bilirubin 0.5 Direct Bilirubin 0.2 AST 19 ALT 12 Alkaline Phosphatase 119 H Troponin I High Sens 30.0 H B-Natriuretic Peptide 899 H Total Protein 6.8 Albumin 3.9 COVID-19 ([facility]ENNA) COVID-19 Clin Com 04/08/22 18:24 MCV MCH MCHC RDW Plt Count MPV Immature Gran % (Auto) Neut % (Auto) Lymph % (Auto) [place] % (Auto) Eos % (Auto) Baso % (Auto) Lymph # (Auto) [place] # (Auto) Eos # (Auto) Baso # (Auto) Abs Immat Gran (auto) Absolute Neuts (auto) Absolute Nucleated RBC Nucleated RBC % (auto) Anion Gap Estim Creat Clear Calc Estimated GFR Random Glucose Calcium Total Bilirubin Direct Bilirubin AST ALT Alkaline Phosphatase Troponin I High Sens B-Natriuretic Peptide Total Protein Albumin COVID-19 (GLENNA) Negative COVID-19 Clin Com See Note Assessment and Plan (1) Hyponatremia: Status: Acute (2) Hypertensive crisis: Status: Acute (3) Weakness: Status: Acute Plan 6-year-old female with past medical history of ESRD on dialysis presents to the hospital with complaints of generalized weakness after being discharged from rehab # hyponatremia - acute on chronic - case was discussed with Nephrology, who recommended is probably likely secondary to volume overload, - recommended dialysis in a.m. # hypertensive crisis - likely secondary to underlying ESRD - treated with hydralazine 50 mg p.r.n. - will resume her home antihypertensives - dialysis # generalized weakness - will likely need further rehab/fdc placement - case management consulted # AFib - of anticoagulation given her recent hemorrhagic stroke - patient also has severe bradycardia, with recommendation by Cardiology at outside hospital to stop calcium channel stas diltiazem, - may not bradycardic, will hold Cardizem, - monitor ( see hospital note rom 04/08) # hypothyroidism - continue levothyroxine DVT prophylaxis: SCDs Quality Stroke Does the patient have a stroke diagnosis?: No VTE Prior VTE?: No VTE Risk Level:: Medical - moderate - high VTE Device Contraindication: Treatment Not Indicated VTE Drug Contraindication: N/A - Med Ordered
[2022-04-08] MEDS: Nitroglycerin 2 % Oint 1 GM Packet 0.5 INCH TRANSDERMA (22:53)
--- NOTE | 2022-04-08 22:54 | MHC.CM.PN ---
VERONICA 04/08. Pt had CVA 3 weeks ago. Was at [facility]. D/C from [facility] today to home. To have VNA and dialysis at [facility]. Pt does not know what VNA company. States has dialysis at [facility] on // Friday. Pt states in the past, transportation picked her up at 10:30 for dialysis. Unable to verify pt appointments at this hour. Pt states she was too weak to walk up one stair and to go the bathroom without assistance, so her family called the ambulance. Pt feels she needs more PT. Spoke with son/HCP Jason Muñoz ([phone]). Jason concerned about weakness. Wants more PT for his mother with expectation that his mother can return home. Pt lives alone, but family is there to help her in the mornings and evenings. Pt uses a wheeled walker. PCP is Dr. Khan. ?VNA on Friday. Both son and patient do not know agency and son does not have discharge paperwork with him from [facility].CM will need to contact [facility] in the morning for copy of D/C instructions and to verify dialysis schedule. PT is pending. Anticipate dialysis in the morning. No referrals placed for STR at this time. CM to follow for d/c planning.
[2022-04-08 23:45] VITALS: BP 193/82; PULSE 86; RESP 23; O2SAT 97
[2022-04-09] VITALS (12 sets, daily range): BP systolic 124–203; BP diastolic 54–148; PULSE 73–88; RESP 12–22; TEMP 36.4–36.8; O2SAT 96–99
--- NOTE | 2022-04-09 00:19 | PC.NURSE ---
Pt reporting pain in left knee and around her neck, requesting lidocaine patches. Pt blood pressure also continues to be elevated, Dr. Guan aware at 0020
[2022-04-09] MEDS: Lidocaine 4 % Patch ADH..PATCH 2 PATCH TRANSDERMA ×2 (00:35→21:07)
--- NOTE | 2022-04-09 01:08 | PC.NURSE ---
hospitalist ordered Hydralazine IV, this nurse along with two other nurses attempted to place an IV in pt unsuccessfully. Pt is difficult stick r/t not being able to use the left arm (fistula). Hospitalist aware of this, at 0046, order has been changed to PO
[2022-04-09] MEDS: hydrALAZINE HCl 50 MG TABLET PO (02:02)
--- NOTE | 2022-04-09 02:07 | PC.NURSE ---
Pt incontinent of urine, this RN changed linens and assisted pt in sitting up to take medications. Pt is now resting comfortably on stretcher
--- NOTE | 2022-04-09 02:56 | PC.NURSE ---
Called Dr. Guan, no answer [phone]
--- NOTE | 2022-04-09 03:27 | PC.NURSE ---
Spoke with Dr. Guan via phone. Aware patient does not have IV in place. 5 staff members have attempted. NO IV needed at this time per Dr. Guan
--- NOTE | 2022-04-09 07:22 | PHA.MEDREC ---
Pharmacy Consult ? Medication Reconciliation Pharmacy has reviewed the medication reconciliation completed by Elizabeth. Patient came from [facility] with med list. Patient takes hydralazine BID instead of QD. Added calcitriol 3xweek, docusate BID, lidocaine patches and pantoprazole to med list. Amina Cordova, PharmD
--- NOTE | 2022-04-09 08:00 | PC.NURSE ---
patient refused morning lab work.
[2022-04-09] MEDS: hydrALAZINE HCl 10 MG TABLET PO (08:06)
[2022-04-09] MEDS: Multivitamin TABLET 1 TAB PO (09:11)
[2022-04-09] MEDS: Apixaban 5 MG TABLET PO ×2 (09:11→21:07)
[2022-04-09] MEDS: Loratadine 10 MG TABLET PO (09:11)
[2022-04-09] MEDS: Gabapentin 100 MG CAPSULE PO ×2 (09:12→21:07)
[2022-04-09] MEDS: Aspirin Enteric Coated 81 MG TABLET.DR PO (09:12)
[2022-04-09] MEDS: Levothyroxine Sodium 25 MCG TABLET PO (09:12)
[2022-04-09] MEDS: calcitrioL 0.25 MCG CAPSULE 0.5 MCG PO (09:12)
[2022-04-09] MEDS: Sevelamer Carbonate Tablet 800 MG TABLET PO ×3 (09:12→21:07)
[2022-04-09] MEDS: Fluticasone Propionate Nasal 16 GM SPRAY 1 SPRAY NOSTRIL-B (09:12)
[2022-04-09] MEDS: Acetaminophen 325 MG TABLET 650 MG PO (11:51)
--- NOTE | 2022-04-09 12:38 | P.PNIM_ITS ---
Subjective Subjective Date of Service: 04/09/22 Interval History: This history was taken in Georgian from the patient. C/o generalized weakness + leg edema In HD now. Review of Systems Review of Systems: Yes all other systems are reviewed and are negative Physical Exam Vital Signs: Vital Signs: Last Vital Signs Temp 97.9 F 04/09/22 07:35 Pulse 82 04/09/22 08:28 Resp 18 04/09/22 07:35 BP 157/87 H 04/09/22 08:29 Pulse Ox 96 04/09/22 07:35 O2 Del Method 04/09/22 07:35 BMI result Body Mass Index 32.7 Gen: in no acute distress HEENT: sclera anicteric, moist mucus membranes Neck: supple Lungs: clear to auscultation bilaterally Heart: regular rate and rhythm, no murmurs Abd: soft, non-tender, non-distended, obese Ext: 2+ edema of legs Skin: warm/well-perfused Neuro: alert and oriented x3, R-sided weakness Psych: appropriate affect Objective Data Active Medications Acetaminophen (Acetaminophen 325 Mg Tablet) 650 mg PO Q6H PRN PRN Reason: Pain, Mild (Pain Scale 1-3) Last Admin: 04/09/22 11:51 Dose: 650 mg Documented By: ANASTACIOOPELorenzo Apixaban (Apixaban 5 Mg Tablet) 5 mg PO BID [facility] Last Admin: 04/09/22 09:11 Dose: 5 mg Documented By: JAIRO Aspirin (Aspirin Enteric Coated 81 Mg Tablet.) 81 mg PO DAILY [facility] Last Admin: 04/09/22 09:12 Dose: 81 mg Documented By: JAIRO Atorvastatin Calcium (Atorvastatin Calcium 40 Mg Tablet) 40 mg PO BEDTIME [facility] Calcitriol (Calcitriol 0.25 Mcg Capsule) 0.5 mcg PO TuThSa@0900 [facility] Last Admin: 04/09/22 09:12 Dose: 0.5 mcg Documented By: JAIRO Docusate Sodium (Docusate Sodium 100 Mg Capsule) 100 mg PO DAILY PRN PRN Reason: Constipation Fluticasone Propionate (Fluticasone Propionate Nasal 16 Gm [place]) 1 spray NOSTRIL-B BID [facility] Last Admin: 04/09/22 09:12 Dose: 1 spray Documented By: JAIRO Gabapentin (Gabapentin 100 Mg Capsule) 100 mg PO BID [facility] Last Admin: 04/09/22 09:12 Dose: 100 mg Documented By: JAIRO Hydralazine HCl (Hydralazine Hcl 25 Mg Tablet) 25 mg PO TID [facility]; Protocol Last Admin: 04/09/22 08:35 Dose: Not Given Documented By: TREVOR Non-Admin Reason: Previously Administered Levothyroxine Sodium (Levothyroxine Sodium 25 Mcg Tablet) 25 mcg PO DAILY@0600 [facility] Last Admin: 04/09/22 09:12 Dose: 25 mcg Documented By: JAIRO Lidocaine (Lidocaine 4 % Patch Adh..Patch) 2 patch TRANSDERMA BEDTIME [facility]; Protocol Last Admin: 04/09/22 00:35 Dose: 2 patch Documented By: MILADY Comments: one applied to back of the neck and one applied to left knee Loratadine (Loratadine 10 Mg Tablet) 10 mg PO DAILY [facility] Last Admin: 04/09/22 09:11 Dose: 10 mg Documented By: JAIRO Melatonin (Melatonin 3 Mg Tablet) 6 mg PO BEDTIME PRN PRN Reason: Sleep Montelukast Sodium (Montelukast Sodium 10 Mg Tablet) 10 mg PO BEDTIME [facility] Multivitamins/Vitamin C (Multivitamin Tablet) 1 tab PO DAILY [facility] Last Admin: 04/09/22 09:11 Dose: 1 tab Documented By: JAIRO Omeprazole (Omeprazole 20 Mg Capsule.Dr) 20 mg PO DAILY@0630 [facility] Ondansetron HCl (Ondansetron Hcl 4 Mg/2 Ml Vial) 4 mg IVPUSH Q8H PRN PRN Reason: Nausea and Vomiting Sevelamer Carbonate (Sevelamer Carbonate Tablet 800 Mg Tablet) 800 mg PO TID [facility] Last Admin: 04/09/22 09:12 Dose: 800 mg Documented By: JAIRO Sodium Chloride (0.9 % Sodium Chloride Flush 3 Ml Syringe) [facility] Last Admin: 04/09/22 08:12 Dose: Not Given Documented By: TREVOR Non-Admin Reason: No Insulin Coverage Labs CBC & Chem 7: 04/08/22 18:24 04/08/22 18:24 Labs: Laboratory Results - last 24 hr 04/08/22 04/08/22 04/08/22 18:24 18:24 18:24 MCV 88.5 MCH 30.1 MCHC 34.0 RDW 13.9 Plt Count 165 MPV 9.3 L Immature Gran % (Auto) 0.4 Neut % (Auto) 79.3 H Lymph % (Auto) 8.5 L [place] % (Auto) 5.4 Eos % (Auto) 5.8 H Baso % (Auto) 0.6 Lymph # (Auto) 1.0 L [place] # (Auto) 0.6 Eos # (Auto) 0.7 H Baso # (Auto) 0.1 Abs Immat Gran (auto) 0.05 H Absolute Neuts (auto) 9.2 H Absolute Nucleated RBC 0.000 Nucleated RBC % (auto) 0.0 Anion Gap 21 H Estim Creat Clear Calc 9.9 Estimated GFR 8 Random Glucose 234 H Calcium 8.6 Total Bilirubin 0.5 Direct Bilirubin 0.2 AST 19 ALT 12 Alkaline Phosphatase 119 H Troponin I High Sens 30.0 H B-Natriuretic Peptide 899 H Total Protein 6.8 Albumin 3.9 COVID-19 ([facility]) COVID-19 Clin Com 04/08/22 18:24 MCV MCH MCHC RDW Plt Count MPV Immature Gran % (Auto) Neut % (Auto) Lymph % (Auto) [place] % (Auto) Eos % (Auto) Baso % (Auto) Lymph # (Auto) [place] # (Auto) Eos # (Auto) Baso # (Auto) Abs Immat Gran (auto) Absolute Neuts (auto) Absolute Nucleated RBC Nucleated RBC % (auto) Anion Gap Estim Creat Clear Calc Estimated GFR Random Glucose Calcium Total Bilirubin Direct Bilirubin AST ALT Alkaline Phosphatase Troponin I High Sens B-Natriuretic Peptide Total Protein Albumin COVID-19 ([facility]) Negative COVID-19 Clin Com See Note Assessment and Plan (1) ESRD on dialysis: Status: Acute (2) Fluid overload: Status: Acute Plan d#2 76yo F with chronic hypoNa, hyperK, ESRD on HD TuThSa, anemia of ESRD, bradycardia, DM2, HLD, hyperparathyroidism, AF on apixaban [to resume 04/08], HTN presented 03/17/22 with hemorrhagic CVA, [place] [facility] [place] then [place] [facility]; seen at [facility] 03/26 for severe bradycardia attributed to hyperK due to missed HD; then d/c'ed to rehab center, came home 04/08 but was weak and unable to walk and thus brought to hospital. Admitted with hypoNa, weakness, hypertensive urgency # HTN urgency - increase hydralazine, diltaizem stopped due at [facility] due to bradycardia # hypervolemic hypoNa # volume overload - ESRD today # AF - per [facility] records to resume apixaban 04/08 - not on diltiazem due to bradycardia # ESRD - HD, sevelamer, calcitriol # CVA - ASA, statin # weakness s/p CVA - PT: STR recommended # hypothyroidism - continue levothyroxine # VTE ppx: SCDs # dispo: STR In my clinical judgment, the patient requires continued hospitalization for the following reasons: HD Quality Stroke Does the patient have a stroke diagnosis?: No VTE Prior VTE?: No VTE Risk Level:: Medical - moderate - high VTE Device Contraindication: Treatment Not Indicated VTE Drug Contraindication: N/A - Med Ordered
[2022-04-09] MEDS: oxyCODONE HCl Immed Release 5 MG TABLET PO (14:31)
[2022-04-09] MEDS: hydrALAZINE HCl 25 MG TABLET PO ×2 (15:44→21:07)
[2022-04-09 16:41] LABS: Glucose, Whole Blood 167 mg/dL (60-115)
--- NOTE | 2022-04-09 19:19 | PC.NURSE ---
PATENT REFUSED DINNER ,AMINA FELTON .
--- NOTE | 2022-04-09 20:01 | PC.NURSE ---
Attempt to call report to C
--- NOTE | 2022-04-09 20:07 | PC.NURSE ---
Report called to Med-Surg. RN
--- NOTE | 2022-04-09 20:07 | PC.NURSE ---
Pt. does not currently have IV access in place. Was told by day shift RN that Lizbeth Guan MD is aware and no IV access is needed at this time. Also see note from RN Mercedez Francisco that Lizbeth Guan MD is aware that pt. does not have IV access and per MD, no IV access is needed at this time. This RN contacting MD to further confirm that no IV access is needed before being sent up to floor.
--- NOTE | 2022-04-09 20:10 | PC.NURSE ---
This RN just messaged re: IV access necessity. states that pt. does not need IV access at this time. Sending pt. to floor now
[2022-04-09] MEDS: Montelukast Sodium 10 MG TABLET PO (21:07)
[2022-04-09] MEDS: Atorvastatin Calcium 40 MG TABLET PO (21:07)
[2022-04-09 21:17] LABS: Glucose, Whole Blood 167 mg/dL (60-115)
[2022-04-10] VITALS: BP 137/86; PULSE 83; RESP 16; TEMP 36.2; O2SAT 99
[2022-04-10 03:56] VITALS: BP 130/74; PULSE 77; RESP 16; TEMP 37.2; O2SAT 98
[2022-04-10] MEDS: Omeprazole 20 MG CAPSULE.DR PO (06:01)
[2022-04-10] MEDS: Levothyroxine Sodium 25 MCG TABLET PO (06:01)
[2022-04-10 06:53] LABS: Anion Gap 20 (12-20); Blood Urea Nitrogen 25 mg/dL (9-16); Calcium 8.7 mg/dL (8.4-10.2); Carbon Dioxide 22 mmol/L (22-29); Chloride 96 mmol/L (96-108); Estimated Glomerular Filt Rate 12; Glucose Random 113 mg/dL (60-115); Potassium 4.7 mmol/L (3.3-5.1); Sodium 133 mmol/L (135-145)
[2022-04-10 07:28] VITALS: BP 157/73; PULSE 85; RESP 18; TEMP 36.4; O2SAT 96
[2022-04-10 07:38] LABS: Glucose, Whole Blood 113 mg/dL (60-115)
[2022-04-10] MEDS: Sevelamer Carbonate Tablet 800 MG TABLET PO ×2 (07:44→14:56)
[2022-04-10] MEDS: Aspirin 81 MG TAB.CHEW PO (07:44)
[2022-04-10] MEDS: Apixaban 5 MG TABLET PO (07:44)
[2022-04-10] MEDS: Gabapentin 100 MG CAPSULE PO (07:44)
[2022-04-10] MEDS: Loratadine 10 MG TABLET PO (07:44)
[2022-04-10] MEDS: hydrALAZINE HCl 25 MG TABLET PO ×2 (07:44→14:56)
[2022-04-10] MEDS: Multivitamin TABLET 1 TAB PO (07:44)
--- NOTE | 2022-04-10 09:26 | MHC.CLN ---
NUTRITION CONSULT FOR SKIN INTEGRITY. REDNESS TO BUTTOCKS NOTED. NO OPEN AREAS. PATIENT WITH DX DM, ESRD AND RECEIVES HEMODIALYSIS THREE TIMES WEEKLY. MODIFIED DIET TO REFLECT DIALYSIS PARAMETERS. DIET=DIABETIC 1800 KCALS, 2 G SODIUM, LOW POTASSIUM, LOW PHOSPHORUS.
[2022-04-10] MEDS: oxyCODONE HCl Immed Release 5 MG TABLET PO (10:13)
[2022-04-10 11:03] VITALS: BP 137/63; PULSE 81; RESP 17; TEMP 36.3; O2SAT 95
[2022-04-10 11:13] LABS: Glucose, Whole Blood 175 mg/dL (60-115)
[2022-04-10] MEDS: Insulin Lispro 100 UNIT/ML 3 ML VIAL SUBCUT (11:34)
--- NOTE | 2022-04-10 12:20 | MHC.CM.PN ---
PER HOSPITALIST PT MEDICALLY CLEARED FOR D/C TO STR, CM WAITING FOR RESPONSE FROM [facility] IF BED IS AVAILABLE TODAY.
--- NOTE | 2022-04-10 13:23 | P.CONNP_ITS ---
History of Present Illness Reason for Consult Consult date: 04/10/22 Reason for consult: ESRD on HD Chief Complaint Chief complaint: dialysis, weakness History of Present Illness Narrative: 76Y old female with ESRD on hemodialysis per TTS schedule, chronic hyponatremia, hyperkalemia, anemia, bradycardia, diabetes, hyperlipidemia, hyperparathyroidism, AFib not on anticoagulation HTN, who was discharged from rehab center on 04/08 and returned from home on 04/08/22 due to significant weakness. Her family felt that she was too weak to stay home and brought her back to the hospital. Nephrology consulted to assist in management of her care. ROS is otherwise negative. Review of Systems Constitutional: Reports as per HPI [facility] Past Medical History Medical History Acute pericardial effusion Anemia Benign essential hypertension CAD (coronary artery disease) Dyspnea ESRD (end stage renal disease) GERD (gastroesophageal reflux disease) Hemodialysis patient HLD (hyperlipidemia) Hypothyroidism Iron deficiency Nephrotic range proteinuria Obesity (BMI 30-39.9) Osteoarthritis PAF (paroxysmal atrial fibrillation) Paroxysmal atrial fibrillation Pernicious anemia Pure hypercholesterolemia Toe amputee Type 2 diabetes mellitus Surgical History Surgical History Hx of appendectomy S/P arteriovenous (AV) fistula creation Social History Social History Household Members: None Household Members Other:: self, son lives close by Housing: House Do you presently have visiting nurse or other home services: No Alcohol intake: never Patient Tobacco Use Status: Never used Tobacco e-Cigarette/Vaping Use: Never Used Second Hand Smoke Exposure: No Advance Directives: No Advance Directives Information Provided: No service: No Current occupational status: retired Cognitive needs: Yes Hearing needs: No Vision needs: No Meds Allergies Allergy/AdvReac Type Severity Reaction Status Date / Time No Known Allergies Allergy Verified 03/04/22 02:01 Active Medications: Current Medications Acetaminophen (Acetaminophen 325 Mg Tablet) 650 mg PO Q6H PRN PRN Reason: Pain, Mild (Pain Scale 1-3) Last Admin: 04/09/22 11:51 Dose: 650 mg Apixaban (Apixaban 5 Mg Tablet) 5 mg PO BID [facility] Last Admin: 04/10/22 07:44 Dose: 5 mg Aspirin (Aspirin 81 Mg Tab.Chew) 81 mg PO DAILY [facility] Last Admin: 04/10/22 07:44 Dose: 81 mg Atorvastatin Calcium (Atorvastatin Calcium 40 Mg Tablet) 40 mg PO BEDTIME [facility] Last Admin: 04/09/22 21:07 Dose: 40 mg Calcitriol (Calcitriol 0.25 Mcg Capsule) 0.5 mcg PO TuThSa@0900 [facility] Last Admin: 04/09/22 09:12 Dose: 0.5 mcg Dextrose (Dextrose 50 % 25 Gm/50 Ml Syringe) 25 gm IVPUSH Q15M PRN; Protocol PRN Reason: per Hypoglycemia Standing Ord. Docusate Sodium (Docusate Sodium 100 Mg Capsule) 100 mg PO DAILY PRN PRN Reason: Constipation Fluticasone Propionate (Fluticasone Propionate Nasal 16 Gm [place]) 1 spray NOSTRIL-B BID [facility] Last Admin: 04/10/22 10:57 Dose: Not Given Gabapentin (Gabapentin 100 Mg Capsule) 100 mg PO BID [facility] Last Admin: 04/10/22 07:44 Dose: 100 mg Glucose (Glucose Gel 15 Gm Gel..Gram.) 15 gm PO Q15M PRN; Protocol PRN Reason: per Hypoglycemia Standing Ord. Hydralazine HCl (Hydralazine Hcl 25 Mg Tablet) 25 mg PO TID [facility]; Protocol Last Admin: 04/10/22 07:44 Dose: 25 mg Insulin Human Lispro (Insulin Lispro 100 Unit/Ml 3 Ml Vial) 0 unit SUBCUT QIDACHS [facility]; Protocol Last Admin: 04/10/22 11:34 Dose: 2 unit Levothyroxine Sodium (Levothyroxine Sodium 25 Mcg Tablet) 25 mcg PO DAILY@0600 [facility] Last Admin: 04/10/22 06:01 Dose: 25 mcg Lidocaine (Lidocaine 4 % Patch Adh..Patch) 2 patch TRANSDERMA BEDTIME [facility]; Protocol Last Admin: 04/09/22 21:07 Dose: 2 patch Loratadine (Loratadine 10 Mg Tablet) 10 mg PO DAILY [facility] Last Admin: 04/10/22 07:44 Dose: 10 mg Melatonin (Melatonin 3 Mg Tablet) 6 mg PO BEDTIME PRN PRN Reason: Sleep Montelukast Sodium (Montelukast Sodium 10 Mg Tablet) 10 mg PO BEDTIME [facility] Last Admin: 04/09/22 21:07 Dose: 10 mg Multivitamins/Vitamin C (Multivitamin Tablet) 1 tab PO DAILY [facility] Last Admin: 04/10/22 07:44 Dose: 1 tab Omeprazole (Omeprazole 20 Mg Capsule.Dr) 20 mg PO DAILY@0630 [facility] Last Admin: 04/10/22 06:01 Dose: 20 mg Ondansetron HCl (Ondansetron Hcl 4 Mg/2 Ml Vial) 4 mg IVPUSH Q8H PRN PRN Reason: Nausea and Vomiting Oxycodone HCl (Oxycodone Hcl Immed Release 5 Mg Tablet) 5 mg PO Q6H PRN PRN Reason: severe pain Last Admin: 04/10/22 10:13 Dose: 5 mg Sevelamer Carbonate (Sevelamer Carbonate Tablet 800 Mg Tablet) 800 mg PO TID [facility] Last Admin: 04/10/22 07:44 Dose: 800 mg Sodium Chloride (0.9 % Sodium Chloride Flush 3 Ml Syringe) 3 ml IVFLUSH QSHIFT [facility] Last Admin: 04/10/22 07:16 Dose: Not Given Home Medications Medication Instructions Recorded Confirmed Last Taken Type acetaminophen 325 mg tablet 650 mg PO Q6H PRN GENERAL 05/21/21 04/09/22 Unknown History DISCOMFORT melatonin 5 mg tablet 5 mg PO BEDTIME PRN Sleep 11/06/21 04/09/22 Unknown History calcitriol 0.25 mcg capsule 0.5 mcg PO TUTHSA 04/09/22 04/09/22 Unknown History docusate sodium 100 mg tablet 100 mg PO BID 04/09/22 04/09/22 Unknown History fluticasone propionate 50 1 spray intranasal BID 04/09/22 04/09/22 Unknown History mcg/actuation nasal spray,suspension gabapentin 100 mg capsule 100 mg PO BID 04/09/22 04/09/22 Unknown History hydralazine 10 mg tablet 10 mg PO BID 04/09/22 04/09/22 Unknown History levothyroxine 25 mcg tablet 25 mcg PO DAILY@0600 04/09/22 04/09/22 Unknown History lidocaine 5 % topical patch 1 patch topical DAILY 04/09/22 04/09/22 Unknown History pantoprazole 40 mg tablet,delayed 40 mg PO DAILY@0630 04/09/22 04/09/22 Unknown History release sevelamer carbonate 800 mg tablet 800 mg PO TID 04/09/22 04/09/22 Unknown History vitamin B complex and vitamin C 1 cap PO DAILY 04/09/22 04/09/22 Unknown History no.20-folic acid 1 mg capsule Physical Exam Vital Signs: Last Vital Signs Temp 97.3 F 04/10/22 11:03 Pulse 81 04/10/22 11:03 Resp 17 04/10/22 11:03 BP 137/63 04/10/22 11:03 Pulse Ox 95 04/10/22 11:03 O2 Del Method 04/10/22 11:03 O2 Flow Rate 2 04/10/22 03:56 BMI result Body Mass Index 32.7 Const General: cooperative and no acute distress HEENT Head: Yes normocephalic Neck Lymphatic: no lymphadenopathy noted Resp Effort & Inspection: normal respiratory effort Auscultation: clear to auscultation bilaterally Cardio Jugular venous distension: no JVD Rate: regular rate Rhythm: regular rhythm GI Auscultation: normal bowel sounds Neuro General: moves all extremities Extrem General: Yes no clubbing, cyanosis or edema Results Lab Results Result Diagrams: 04/08/22 18:24 04/10/22 06:10 Lab results: Chemistry 04/08/22 04/10/22 18:24 06:10 Sodium 125 L 133 L Potassium 5.1 D 4.7 Carbon Dioxide 20 L 22 BUN 46 H 25 H Creatinine 5.49 H* 3.63 H Calcium 8.6 8.7 Hematology 04/08/22 18:24 WBC 11.6 H Hgb 10.7 L Plt Count 165 Assessment and Plan (1) Hyponatremia: Status: Acute (2) ESRD on dialysis: Status: Acute Plan 76Y old female with ESRD on hemodialysis per TTS schedule, chronic hyponatremia, hyperkalemia, anemia, bradycardia, diabetes, hyperlipidemia, hyperparathyroidism, AFib not on anticoagulation HTN, who was discharged from rehab center on 04/08 and returned from home on 04/08/22 due to significant weakness. Her family felt that she was too weak to stay home and brought her back to the hospital. Plan: #) ESRD on TTS HD schedule. Continue HD per TTS Continued volume optimization on HD Received HD yesterday and an additional UF treatment only today for ongoing hyponatremia. Needs to bring dry weight down 2 Gram Na/ 2 Gram K/ Phos restricted diet with fluid restriction #) ESRD-ANemia check iron panel in am. DARA per protocol #) ESRD - MBD: Monitor phosphorus. Cont. sevelamer, calcitriol Procedures Date of Service Date of Service: 04/10/22
--- NOTE | 2022-04-10 13:47 | HO.PM.IMPN ---
Subjective Subjective Date of Service: 04/10/22 Interval History: This history was taken in Yakut from the patient. Edema improved Awaiting placement Review of Systems Review of Systems: Yes all other systems are reviewed and are negative Physical Exam Vital Signs: Vital Signs: Last Vital Signs Temp 97.3 F 04/10/22 11:03 Pulse 81 04/10/22 11:03 Resp 17 04/10/22 11:03 BP 137/63 04/10/22 11:03 Pulse Ox 95 04/10/22 11:03 O2 Del Method 04/10/22 11:03 O2 Flow Rate 2 04/10/22 03:56 BMI result Body Mass Index 32.7 Gen: in no acute distress HEENT: sclera anicteric, moist mucus membranes Neck: supple, tunneled HD catheter R subclavian Lungs: clear to auscultation bilaterally Heart: regular rate and rhythm, no murmurs Abd: soft, non-tender, non-distended, obese Ext: 2+ edema of legs Skin: warm/well-perfused Neuro: alert and oriented x3, R-sided weakness Psych: appropriate affect Objective Data Active Medications Acetaminophen (Acetaminophen 325 Mg Tablet) 650 mg PO Q6H PRN PRN Reason: Pain, Mild (Pain Scale 1-3) Last Admin: 04/09/22 11:51 Dose: 650 mg Documented By: TREVOR Apixaban (Apixaban 5 Mg Tablet) 5 mg PO BID [facility] Last Admin: 04/10/22 07:44 Dose: 5 mg Documented By: DOUG Aspirin (Aspirin 81 Mg Tab.Chew) 81 mg PO DAILY [facility] Last Admin: 04/10/22 07:44 Dose: 81 mg Documented By: DOUG Atorvastatin Calcium (Atorvastatin Calcium 40 Mg Tablet) 40 mg PO BEDTIME [facility] Last Admin: 04/09/22 21:07 Dose: 40 mg Documented By: MISHA Calcitriol (Calcitriol 0.25 Mcg Capsule) 0.5 mcg PO TuThSa@0900 [facility] Last Admin: 04/09/22 09:12 Dose: 0.5 mcg Documented By: JAIRO Dextrose (Dextrose 50 % 25 Gm/50 Ml Syringe) 25 gm IVPUSH Q15M PRN; Protocol PRN Reason: per Hypoglycemia Standing Ord. Docusate Sodium (Docusate Sodium 100 Mg Capsule) 100 mg PO DAILY PRN PRN Reason: Constipation Fluticasone Propionate (Fluticasone Propionate Nasal 16 Gm [place]) 1 spray NOSTRIL-B BID [facility] Last Admin: 04/10/22 10:57 Dose: Not Given Documented By: DOUG Non-Admin Reason: Med Not Available Gabapentin (Gabapentin 100 Mg Capsule) 100 mg PO BID [facility] Last Admin: 04/10/22 07:44 Dose: 100 mg Documented By: DOUG Glucose (Glucose Gel 15 Gm Gel..Gram.) 15 gm PO Q15M PRN; Protocol PRN Reason: per Hypoglycemia Standing Ord. Hydralazine HCl (Hydralazine Hcl 25 Mg Tablet) 25 mg PO TID [facility]; Protocol Last Admin: 04/10/22 07:44 Dose: 25 mg Documented By: DOUG Insulin Human Lispro (Insulin Lispro 100 Unit/Ml 3 Ml Vial) 0 unit SUBCUT QIDACHS [facility]; Protocol Last Admin: 04/10/22 11:34 Dose: 2 unit Documented By: DOUG Levothyroxine Sodium (Levothyroxine Sodium 25 Mcg Tablet) 25 mcg PO DAILY@0600 [facility] Last Admin: 04/10/22 06:01 Dose: 25 mcg Documented By: MISHA Lidocaine (Lidocaine 4 % Patch Adh..Patch) 2 patch TRANSDERMA BEDTIME [facility]; Protocol Last Admin: 04/09/22 21:07 Dose: 2 patch Documented By: MISHA Loratadine (Loratadine 10 Mg Tablet) 10 mg PO DAILY [facility] Last Admin: 04/10/22 07:44 Dose: 10 mg Documented By: DOUG Melatonin (Melatonin 3 Mg Tablet) 6 mg PO BEDTIME PRN PRN Reason: Sleep Montelukast Sodium (Montelukast Sodium 10 Mg Tablet) 10 mg PO BEDTIME [facility] Last Admin: 04/09/22 21:07 Dose: 10 mg Documented By: MISHA Multivitamins/Vitamin C (Multivitamin Tablet) 1 tab PO DAILY [facility] Last Admin: 04/10/22 07:44 Dose: 1 tab Documented By: DOUG Omeprazole (Omeprazole 20 Mg [place].) 20 mg PO DAILY@0630 [facility] Last Admin: 04/10/22 06:01 Dose: 20 mg Documented By: MISHA Ondansetron HCl (Ondansetron Hcl 4 Mg/2 Ml Vial) 4 mg IVPUSH Q8H PRN PRN Reason: Nausea and Vomiting Oxycodone HCl (Oxycodone Hcl Immed Release 5 Mg Tablet) 5 mg PO Q6H PRN PRN Reason: severe pain Last Admin: 04/10/22 10:13 Dose: 5 mg Documented By: DOUG Sevelamer Carbonate (Sevelamer Carbonate Tablet 800 Mg Tablet) 800 mg PO TID [facility] Last Admin: 04/10/22 07:44 Dose: 800 mg Documented By: DOUG Sodium Chloride (0.9 % Sodium Chloride Flush 3 Ml Syringe) 3 ml IVFLUSH QSHIFT [facility] Last Admin: 04/10/22 07:16 Dose: Not Given Documented By: DOUG Non-Admin Reason: No Access Labs CBC & Chem 7: 04/08/22 18:24 04/10/22 06:10 Labs: Laboratory Results - last 24 hr 04/09/22 04/09/22 04/10/22 16:33 21:10 06:10 Anion Gap 20 Estim Creat Clear Calc 15.0 Estimated GFR 12 POC Glucose 167 H 167 H Random Glucose 113 Calcium 8.7 04/10/22 04/10/22 07:23 11:05 Anion Gap Estim Creat Clear Calc Estimated GFR POC Glucose 113 175 H Random Glucose Calcium Assessment and Plan (1) ESRD on dialysis: Status: Acute (2) Fluid overload: Status: Acute Plan d#3 76yo F with chronic hypoNa, hyperK, ESRD on HD TuThSa, anemia of ESRD, bradycardia, DM2, HLD, hyperparathyroidism, AF on apixaban [to resume 04/08], HTN presented 03/17/22 with hemorrhagic CVA, [place] [facility] [place] [facility]; seen at [facility] 03/26 for severe bradycardia attributed to hyperK due to missed HD; then d/c'ed to rehab center, came home 04/08 but was weak and unable to walk and thus brought to hospital. Admitted with hypoNa, weakness, hypertensive urgency # HTN urgency - resol;jayla; increased hydralazine, diltaizem stopped due at [facility] due to bradycardia # hypervolemic hypoNa # volume overload - ESRD TuThSa # AF - per [facility] records to resume apixaban 04/08 - not on diltiazem due to bradycardia # ESRD - HD, sevelamer, calcitriol # CVA - ASA, statin # weakness s/p CVA - PT: STR recommended # hypothyroidism - continue levothyroxine # VTE ppx: SCDs # dispo: STR In my clinical judgment, the patient requires continued hospitalization for the following reasons: placement Quality Stroke Does the patient have a stroke diagnosis?: No VTE Prior VTE?: No VTE Risk Level:: Medical - moderate - high VTE Device Contraindication: Treatment Not Indicated VTE Drug Contraindication: N/A - Med Ordered
[2022-04-10 15:35] VITALS: BP 133/63; PULSE 80; RESP 17; TEMP 36.4; O2SAT 98
--- NOTE | 2022-04-10 15:46 | PM.DS ---
DS: Providers Provider Date of Service: 04/10/22 Date of admission: 04/08/22 22:33 Primary care physician: Lonnie Khan MD Consults: 04/08/22 22:43 Consult to Nephrology Routine Consulting Provider: [facility] Reason for consultation: dialysis, hyponatremia Has provider been notified: Yes DS: Diagnosis Discharge Diagnosis (1) ESRD on dialysis: Status: Acute (2) Fluid overload: Status: Acute (3) Hypertensive crisis: Status: Acute (4) Hyponatremia: Status: Acute (5) Weakness: Status: Acute DS: Summary Hospital Course Hospital Course: from admission H+P by hospitalist Torrey Guan, 04/08/22: Patient is Hungarian-speaking, history is obtained with the help of an mechanical field engineer ?76-year-old female with past medical history of chronic hyponatremia, hyperkalemia, end-stage renal disease on dialysis Friday,, anemia, bradycardia, diabetes, hyperlipidemia, hyperparathyroidism, AFib not on anticoagulation HTN, who was discharged from rehab center on 04/08 and returns to the hospital today stating that she had to significant of weakness to come home.? Patient apparently was seen at [facility] on 03/17 was found to have hemorrhagic stroke with right-sided weakness, she was transferred to [facility] and then to [facility].? Patient was also seen at [facility] on 03/26 for severe bradycardia that was attributed to hyperkalemia due to missed dialysis, patient id was then discharged to rehab center.? She reports that she came home today but has significant weakness, was unable to walk, she almost had a fall again, therefore family felt that she was too weak to stay home and brought her back to the hospital.? She denies any new weakness, reports no headache, no change in vision, no numbness or tingling, no change in speech, no droopiness of face, no abdominal pain, no chest pain, nausea or vomiting, no shortness of breath, no diarrhea constipation, no urinary symptoms and no lower extremity edema.? On arrival to the ED patient hemodynamically stable with an elevated blood pressure Labs are significant for WBC count 11.6 which is lower than her previous, hemoglobin of 10.7, hematocrit 31.5, sodium of 125 with a previous of 134, chloride of 89, BUN of 46, creatinine of 5.49, potassium 5.1, troponin of 30, BNP of 899, Case was discussed with Nephrology, and patient will be admitted for dialysis in a.m. This 76yo F with chronic hypoNa, hyperK, ESRD on HD TuThSa, anemia of ESRD, bradycardia, DM2, HLD, hyperparathyroidism, AF on apixaban [to resume 04/08], and HTN presented 03/17/22 with hemorrhagic CVA, transferred to [facility] and then discharged to [facility]; seen at [facility] 03/26 for severe bradycardia attributed to hyperK due to missed HD; then was discharged to rehab center. She came home 04/08 but was weak and unable to walk and thus brought to hospital.? Admitted with hypoNa, weakness, hypertensive urgency with volume overload. These resolved with increasing hydralazine dose and performing hemodialysis. She was discharged to [facility] for another round of short-term rehabilitation and will continue hemodialysis /. Time Spent with Patient Time attestation: Total time spent providing and/or coordinating discharge services: Discharge coordination time: Greater than 30 minutes Quality: Safe Use of Opioids Does Pt have an Active Cancer Diagnosis on the Problem List?: No Quality: Stroke Does the patient have a stroke diagnosis?: No Physical Exam Vital Signs: Vital Signs: Last Vital Signs Temp 97.6 F 04/10/22 15:35 Pulse 80 04/10/22 15:35 Resp 17 04/10/22 15:35 BP 133/63 04/10/22 15:35 Pulse Ox 98 04/10/22 15:35 O2 Del Method 04/10/22 15:35 O2 Flow Rate 2 04/10/22 03:56 BMI result Body Mass Index 32.7 DS: Data Data Completed and Pending Completed studies during hospitalization [Text1]: Procedures Assistance with Respiratory Ventilation, Less than 24 Consecutive Hours, Continuous Positive Airway Pressure (11/06/21) Drainage of Left Pleural Cavity, Percutaneous Approach (05/21/21) Excision of Right Kidney, Percutaneous Approach, Diagnostic (04/20/21) Insertion of Infusion Device into Left Brachial Vein, Percutaneous Approach (05/02/21) Insertion of Infusion Device into Right Atrium, Percutaneous Approach (05/02/21) Insertion of Infusion Device into Superior Vena Cava, Percutaneous Approach (05/02/21) Insertion of Tunneled Vascular Access Device into Chest Subcutaneous Tissue and Fascia, Percutaneous Approach (05/02/21) Performance of Urinary Filtration, Intermittent, Less than 6 Hours Per Day (11/06/21) Removal of Infusion Device from Great Vessel, Percutaneous Approach (05/02/21) Transfusion of Nonautologous Red Blood Cells into Peripheral Vein, Percutaneous Approach (05/02/21) Labs on day of discharge: Laboratory Results - last 24 hr 04/09/22 04/09/22 04/10/22 16:33 21:10 06:10 Sodium 133 L Potassium 4.7 Chloride 96 Carbon Dioxide 22 Anion Gap 20 BUN 25 H Creatinine 3.63 H Estim Creat Clear Calc 15.0 Estimated GFR 12 POC Glucose 167 H 167 H Random Glucose 113 Calcium 8.7 04/10/22 04/10/22 07:23 11:05 Sodium Potassium Chloride Carbon Dioxide Anion Gap BUN Creatinine Estim Creat Clear Calc Estimated GFR POC Glucose 113 175 H Random Glucose Calcium Discharge Plan Discharge Anticipated Discharge Date/Time: 04/10/22 15:37 Patient Disposition: Xfer [facility] Discharge Diagnosis: # hypertensive urgency # hypervolemic hyponatremia # volume overload # ESRD on HD # weakness Referrals: Francisco Osorio [Outside] - 1 Week Lonnie Khan MD [Primary Care Provider] - 1 Week Discharge Medications: New hydralazine 25 mg Tablet 25 mg PO TID Qty: 90 0RF Protocol: Hold for SBP< HOLD for SBP < : 90 Continued (DME) Extra depth orthopedic shoes (1 pair) with customized heat molded multidensity innersoles (3 pair) See Rx Instructions .Route .MEDSUPPLY Qty: 1 0RF Rx Instructions: As directed montelukast 10 mg tablet 10 mg PO BEDTIME Qty: 90 0RF (DME) pen needle, diabetic [BD Sandra 2nd Gen Pen Needle] 32 gauge x 5/32 needle See Rx Instructions .Route Qty: 50 0RF Rx Instructions: As directed loratadine 10 mg tablet 10 mg PO DAILY 90 Days Qty: 90 0RF Rx Instructions: Take 1 tablet by mouth daily ferrous sulfate 325 mg (65 mg iron) tablet 325 mg PO DAILY Qty: 90 0RF Eliquis 5 mg tablet 5 mg PO BID 90 Days Qty: 180 0RF atorvastatin 40 mg tablet 40 mg PO BEDTIME Qty: 90 0RF (DME) syringe with needle 3 mL 27 gauge x 1 1/4 syringe See Rx Instructions .Route Qty: 6 1RF Rx Instructions: As directed once a month (for Vitamin B12 injections) acetaminophen 325 mg Tablet 650 mg PO Q6H PRN (Reason: GENERAL DISCOMFORT) melatonin 5 mg Tablet 5 mg PO BEDTIME PRN (Reason: Sleep) pantoprazole 40 mg Tablet,Delayed Release (Dr/Ec) 40 mg PO DAILY@0630 lidocaine 5 % Adhesive Patch,Medicated 1 patch TOPICAL DAILY Rx Instructions: leave on most painful area for up to 12 hrs fluticasone propionate 50 mcg/actuation [place],Suspension 1 spray INTRANASAL BID Rx Instructions: administer into each nostril calcitriol 0.25 mcg Capsule 0.5 mcg PO TUTHSA Rx Instructions: administer after dialysis on dialysis days docusate sodium 100 mg Tablet 100 mg PO BID sevelamer carbonate 800 mg Tablet 800 mg PO TID Rx Instructions: must administer with a meal/food levothyroxine 25 mcg tablet 25 mcg PO DAILY@0600 gabapentin 100 mg capsule 100 mg PO BID B complex with C 20-folic acid 1 mg Capsule 1 cap PO DAILY (DME) blood-glucose meter [FreeStyle Lite Meter] Kit See Rx Instructions .Route Qty: 1 0RF Rx Instructions: As directed (DME) TRANSPORT WHEELCHAIR See Rx Instructions .Route .MEDSUPPLY Qty: 1 0RF Rx Instructions: As directed (DME) blood pressure monitor Kit See Rx Instructions .Route Qty: 1 0RF Rx Instructions: As directed (DME) FreeStyle Lite Strips Strip See Rx Instructions .ROUTE .MEDSUPPLY Qty: 300 3RF Rx Instructions: check bs 3-4X/DAY (DME) blood-glucose meter [FreeStyle Lite Meter] Kit See Rx Instructions .Route Qty: 1 0RF Rx Instructions: As directed 3-4 times a day aspirin 81 mg tablet,delayed release (DR/EC) 81 mg PO DAILY Qty: 90 0RF cholecalciferol (vitamin D3) 25 mcg (1,000 unit) tablet 25 mcg PO DAILY Qty: 90 0RF (DME) lancets [FreeStyle Lancets] 28 gauge misc See Rx Instructions .ROUTE .MEDSUPPLY Qty: 100 0RF Rx Instructions: check BS 3x/day Discontinued hydralazine 10 mg tablet 10 mg PO BID Discharge Orders: Discharge Order (Routine); Ordered 10/19/22 Ordered By: Mel Gentile Diet: Advance to usual diet Activity on Discharge: As tolerated Stand Alone Forms: Patient Portal Discharge page Care Plan Goals: rehab normal volume Health Concerns: # hypertensive urgency # hypervolemic hyponatremia # volume overload # ESRD on HD # weakness Plan of Treatment: rehab at [facility] Assessment: See Discharge Summary.
[2022-04-10 15:58] LABS: Glucose, Whole Blood 123 mg/dL (60-115)
--- NOTE | 2022-04-10 16:18 | MHC.CM.PN ---
YULI HERNANDEZ OFFERING A BED TODAY [facility] CAN TRANSPORT FOR 1900 RN, UNIT, PATIENT, AND SON/HCP ELIO ([phone]) AWARE OF PLAN.
[2022-04-10 19:23] VITALS: BP 145/67; PULSE 76; RESP 17; TEMP 37.1; O2SAT 97
[2022-04-10 20:10] LABS: Glucose, Whole Blood 172 mg/dL (60-115)
== END 2022-04-10 19:45 | disposition skilled nursing facility (03) | DRG 640 ==
LOC: HO.ED 22:14 → HO.EDOVER 22:49 → HO.S3 04-09 19:29
PROVIDERS: Admitting Provider Internal Medicine; Emergency Provider Emergency Medicine; PCP Internal Medicine; Visit Provider Family Medicine
DX: E87.70 Fluid overload, unspecified (principal); N18.6 End stage renal disease; I12.0 Hypertensive chronic kidney disease with stage 5 chronic kidney disease or end stage renal disease; I16.9 Hypertensive crisis, unspecified; E87.1 Hypo-osmolality and hyponatremia; I25.10 Atherosclerotic heart disease of native coronary artery without angina pectoris; E03.9 Hypothyroidism, unspecified; D63.1 Anemia in chronic kidney disease; N25.0 Renal osteodystrophy; I48.91 Unspecified atrial fibrillation; E11.22 Type 2 diabetes mellitus with diabetic chronic kidney disease; E86.1 Hypovolemia; Z20.822 Contact with and (suspected) exposure to COVID-19; Z86.73 Personal history of transient ischemic attack (TIA), and cerebral infarction without residual deficits; Z99.2 Dependence on renal dialysis; Z79.01 Long term (current) use of anticoagulants; Z79.51 Long term (current) use of inhaled steroids; Z79.82 Long term (current) use of aspirin; Z79.890 Hormone replacement therapy; Z79.899 Other long term (current) drug therapy
CPT/HCPCS: 36415; 80048; 80076; 82947; 83880; 84484; 85025; 87635; 90999; 93005; 97162; 99285

== ENCOUNTER 2022-04-11 05:58 | Outpatient (REF) | payer OTHER, SELFPAY ==
[2022-04-11 06:00] LABS: MANUAL DIFF FLAG NO
[2022-04-11 06:07] LABS: Basophils Absolute Auto 0.1 X10*3/uL (0.0-0.2); Basophils Percent Auto 0.6 % (0-2); Eosinophils Absolute Auto 0.9 X10*3/uL (0.0-0.4); Eosinophils Percent Auto 9.5 % (0-4); Hematocrit 29.2 % (37.0-47.0); Hemoglobin 9.7 g/dl (12.0-16.0); Imm Gran Abs Auto 0.03 X10*3/uL (0.00-0.03); Imm Gran Pct Auto 0.3 % (0.0-0.4); Lymphocytes Absolute Auto 1.7 X10*3/uL (1.2-4.9); Lymphocytes Percent Auto 17.4 % (20-40); Mean Corpuscular HGB Conc 33.2 g/dl (31.0-35.0); Mean Corpuscular Hemoglobin 30.2 pg (27.0-33.0); Mean Platelet Volume 9.9 fL (9.4-12.3); Monocytes Absolute Auto 0.9 X10*3/uL (0.1-1.2); Monocytes Percent Auto 8.7 % (2-11); Neutrophils Absolute Auto 6.3 x10*3/uL (2.0-8.3); Neutrophils Percent Auto 63.5 % (45-73); Platelet Count 206 X10*3/uL (160-400); Red Blood Count 3.21 X10*6/uL (4.20-5.50); Red Cell Distribution Width 14.8 % (11.0-16.0); White Blood Count 9.9 X10*3/uL (4.8-10.8)
[2022-04-11 06:26] LABS: Alanine Aminotransferase 12 U/L (0-31); Albumin Level 3.5 g/dL (3.5-5.0); Alkaline Phosphatase 118 U/L (39-117); Anion Gap 20 (12-20); Aspartate Amino Transferase 15 U/L (5-31); Bilirubin Total 0.3 mg/dL (0.0-1.0); Blood Urea Nitrogen 49 mg/dL (9-16); Calcium 8.4 mg/dL (8.4-10.2); Carbon Dioxide 26 mmol/L (22-29); Chloride 90 mmol/L (96-108); Estimated Glomerular Filt Rate 8; Glucose Random 155 mg/dL (60-115); Potassium 4.9 mmol/L (3.3-5.1); Sodium 131 mmol/L (135-145)
== END 2022-04-11 05:59 | disposition home or self-care (01) ==
LOC: HO.MMNH2L 05:58
PROVIDERS: Visit Provider Family Medicine
DX: Z02.2 Encounter for examination for admission to residential institution (principal); E11.22 Type 2 diabetes mellitus with diabetic chronic kidney disease; N18.6 End stage renal disease
CPT/HCPCS: 36415; 80053; 85025

== ENCOUNTER 2022-04-13 12:32 | Outpatient (REF) | payer OTHER, SELFPAY ==
[2022-04-13 12:49] LABS: Appearance Urine Clear; Color Urine Yellow; Glucose Urine UA 100 mg/dL (Negative); Leukocyte Esterase Urine Large (3+) (Negative); Nitrite Urine Negative (Negative); PH 8.5 (5.0-9.0); Specific Gravity - Urine <= 1.005 (1.005-1.025); UMIC TRIGGER UACC YES; Urine Blood Trace (Negative); Urine Ketones Negative (Negative); Urine Protein 300 (3+) mg/dL (Neg-Trace)
[2022-04-13 12:52] LABS: Bacteria Urine Trace (None Seen); Hyaline Casts Urine 0-2 /LPF (0-2); Squamous Epithelial Cell Urine 0-2 /HPF (0-2); UACC Culture Trigger YES; WBC Urine >50 /HPF (0-5)
== END 2022-04-13 12:33 | disposition home or self-care (01) ==
LOC: HO.LNP 12:32
PROVIDERS: Visit Provider Family Medicine
DX: R10.9 Unspecified abdominal pain (principal)
CPT/HCPCS: 81001; 87086; 87088; 87186

== ENCOUNTER 2022-04-15 06:49 | Outpatient (REF) | payer OTHER, SELFPAY ==
[2022-04-15 06:44] LABS: MANUAL DIFF FLAG NO
[2022-04-15 07:28] LABS: Basophils Absolute Auto 0.1 X10*3/uL (0.0-0.2); Basophils Percent Auto 0.5 % (0-2); Eosinophils Absolute Auto 0.9 X10*3/uL (0.0-0.4); Eosinophils Percent Auto 8.9 % (0-4); Hematocrit 28.1 % (37.0-47.0); Hemoglobin 9.3 g/dl (12.0-16.0); Imm Gran Abs Auto 0.05 X10*3/uL (0.00-0.03); Imm Gran Pct Auto 0.5 % (0.0-0.4); Lymphocytes Absolute Auto 1.6 X10*3/uL (1.2-4.9); Lymphocytes Percent Auto 15.5 % (20-40); Mean Corpuscular HGB Conc 33.1 g/dl (31.0-35.0); Mean Corpuscular Hemoglobin 30.2 pg (27.0-33.0); Mean Corpuscular Volume 91.2 fL (80.0-98.0); Monocytes Absolute Auto 0.9 X10*3/uL (0.1-1.2); Monocytes Percent Auto 8.3 % (2-11); Neutrophils Absolute Auto 6.8 x10*3/uL (2.0-8.3); Neutrophils Percent Auto 66.3 % (45-73); Platelet Count 196 X10*3/uL (160-400); Red Blood Count 3.08 X10*6/uL (4.20-5.50); Red Cell Distribution Width 14.8 % (11.0-16.0); White Blood Count 10.3 X10*3/uL (4.8-10.8)
[2022-04-15 07:51] LABS: Anion Gap 18 (12-20); Blood Urea Nitrogen 38 mg/dL (9-16); Calcium 8.4 mg/dL (8.4-10.2); Carbon Dioxide 26 mmol/L (22-29); Chloride 87 mmol/L (96-108); Estimated Glomerular Filt Rate 9; Glucose Random 124 mg/dL (60-115); Potassium 4.5 mmol/L (3.3-5.1); Sodium 126 mmol/L (135-145)
== END 2022-04-15 06:50 | disposition home or self-care (01) ==
LOC: HO.MMNH2L 06:49
PROVIDERS: Visit Provider Family Medicine
DX: Z00.00 Encounter for general adult medical examination without abnormal findings (principal); E11.22 Type 2 diabetes mellitus with diabetic chronic kidney disease; N18.6 End stage renal disease
CPT/HCPCS: 36415; 80048; 85025

== ENCOUNTER 2022-04-22 06:21 | Outpatient (REF) | payer OTHER, SELFPAY ==
[2022-04-22 06:54] LABS: Hematocrit 26.5 % (37.0-47.0); Hemoglobin 8.8 g/dl (12.0-16.0); Mean Corpuscular HGB Conc 33.2 g/dl (31.0-35.0); Mean Corpuscular Volume 90.4 fL (80.0-98.0); Mean Platelet Volume 9.4 fL (9.4-12.3); Platelet Count 258 X10*3/uL (160-400); Red Blood Count 2.93 X10*6/uL (4.20-5.50); Red Cell Distribution Width 14.1 % (11.0-16.0); White Blood Count 12.4 X10*3/uL (4.8-10.8)
[2022-04-22 07:23] LABS: Anion Gap 19 (12-20); Blood Urea Nitrogen 23 mg/dL (9-16); Calcium 8.3 mg/dL (8.4-10.2); Carbon Dioxide 24 mmol/L (22-29); Chloride 90 mmol/L (96-108); Estimated Glomerular Filt Rate 10; Glucose Random 176 mg/dL (60-115); Potassium 3.5 mmol/L (3.3-5.1); Sodium 129 mmol/L (135-145)
[2022-04-22 07:54] LABS: Band Neutrophils Percent 3 % (3-5); Eosinophils Absolute Manual 0.2 X10*3/uL (0.0-0.4); Eosinophils Percent Manual 2 % (0-4); Hypochromasia 1+ (5-14) /OIF; Lymphocytes Absolute Manual 1.2 X10*3/uL (1.2-4.9); Lymphocytes Percent Manual 10 % (20-40); Metamyelocytes Absolute 0.2 X10*3/uL; Metamyelocytes Percent 2 %; Monocytes Absolute Manual 0.4 X10*3/uL (0.1-1.2); Monocytes Percent Manual 3 % (2-11); Neutrophils Absolute Manual 10.3 X10*3/uL (2.0-8.3); Neutrophils Percent Manual 80 % (45-73); Platelet Estimate NORMAL (NORMAL); Platelet Morphology Comment NORMAL; RBC Morphology NOTED
== END 2022-04-22 06:22 | disposition home or self-care (01) ==
LOC: HO.MMNH2L 06:21
PROVIDERS: Visit Provider Family Medicine
DX: Z02.2 Encounter for examination for admission to residential institution (principal); E11.22 Type 2 diabetes mellitus with diabetic chronic kidney disease; N18.6 End stage renal disease
CPT/HCPCS: 36415; 80048; 85007; 85027

== ENCOUNTER 2022-04-29 05:46 | Outpatient (REF) | payer OTHER, SELFPAY ==
[2022-04-29 05:43] LABS: MANUAL DIFF FLAG NO
[2022-04-29 06:22] LABS: Basophils Absolute Auto 0.1 X10*3/uL (0.0-0.2); Basophils Percent Auto 0.8 % (0-2); Eosinophils Absolute Auto 0.6 X10*3/uL (0.0-0.4); Eosinophils Percent Auto 6.3 % (0-4); Hematocrit 23.5 % (37.0-47.0); Hemoglobin 7.8 g/dl (12.0-16.0); Imm Gran Abs Auto 0.06 X10*3/uL (0.00-0.03); Imm Gran Pct Auto 0.6 % (0.0-0.4); Lymphocytes Absolute Auto 1.1 X10*3/uL (1.2-4.9); Lymphocytes Percent Auto 11.8 % (20-40); Mean Corpuscular HGB Conc 33.2 g/dl (31.0-35.0); Mean Corpuscular Hemoglobin 30.6 pg (27.0-33.0); Mean Corpuscular Volume 92.2 fL (80.0-98.0); Mean Platelet Volume 9.9 fL (9.4-12.3); Monocytes Absolute Auto 0.7 X10*3/uL (0.1-1.2); Monocytes Percent Auto 7.9 % (2-11); Neutrophils Absolute Auto 6.8 x10*3/uL (2.0-8.3); Neutrophils Percent Auto 72.6 % (45-73); Platelet Count 170 X10*3/uL (160-400); Red Blood Count 2.55 X10*6/uL (4.20-5.50); Red Cell Distribution Width 14.9 % (11.0-16.0); White Blood Count 9.3 X10*3/uL (4.8-10.8)
[2022-04-29 06:39] LABS: Anion Gap 20 (12-20); Blood Urea Nitrogen 30 mg/dL (9-16); Calcium 8.3 mg/dL (8.4-10.2); Carbon Dioxide 24 mmol/L (22-29); Chloride 93 mmol/L (96-108); Glucose Random 198 mg/dL (60-115); Potassium 3.7 mmol/L (3.3-5.1); Sodium 133 mmol/L (135-145)
[2022-04-29 07:41] LABS: Estimated Glomerular Filt Rate 10
== END 2022-04-29 05:47 | disposition home or self-care (01) ==
LOC: HO.MMNH2L 05:46
PROVIDERS: Visit Provider Family Medicine
DX: Z02.2 Encounter for examination for admission to residential institution (principal); E11.22 Type 2 diabetes mellitus with diabetic chronic kidney disease; N18.6 End stage renal disease
CPT/HCPCS: 36415; 80048; 85025

== ENCOUNTER 2022-05-06 06:30 | Outpatient (REF) | payer OTHER, SELFPAY ==
[2022-05-06 07:07] LABS: Hematocrit 21.3 % (37.0-47.0); Mean Corpuscular HGB Conc 32.9 g/dl (31.0-35.0); Mean Corpuscular Hemoglobin 31.1 pg (27.0-33.0); Mean Corpuscular Volume 94.7 fL (80.0-98.0); Mean Platelet Volume 10.5 fL (9.4-12.3); Platelet Count 197 X10*3/uL (160-400); Red Blood Count 2.25 X10*6/uL (4.20-5.50); Red Cell Distribution Width 16.3 % (11.0-16.0); White Blood Count 8.9 X10*3/uL (4.8-10.8)
[2022-05-06 07:38] LABS: Anion Gap 17 (12-20); Blood Urea Nitrogen 28 mg/dL (9-16); Calcium 8.3 mg/dL (8.4-10.2); Carbon Dioxide 25 mmol/L (22-29); Chloride 91 mmol/L (96-108); Estimated Glomerular Filt Rate 11; Glucose Random 178 mg/dL (60-115); Potassium 3.2 mmol/L (3.3-5.1); Sodium 130 mmol/L (135-145)
== END 2022-05-06 06:31 | disposition home or self-care (01) ==
LOC: HO.MMNH2L 06:30
PROVIDERS: Visit Provider Family Medicine
DX: Z02.2 Encounter for examination for admission to residential institution (principal); E11.22 Type 2 diabetes mellitus with diabetic chronic kidney disease; N18.6 End stage renal disease
CPT/HCPCS: 36415; 80048; 85027

== ENCOUNTER 2022-06-01 15:37 | Inpatient (IN) | payer OTHER, SELFPAY ==
--- NOTE | ~2022-06-01 | XR_ITS ---
EXAMINATION: XR CHEST CLINICAL INFORMATION: A. Fib with RVR COMPARISON: Chest x-ray on 02/09/2022 TECHNIQUE: Frontal view of the chest was obtained. FINDINGS: No significant abnormality is noted involving the heart, lungs, mediastinum, bony thorax or soft tissues. Is a right chest tunneled dialysis catheter. Orthopedic hardware in the right humerus. XR/XR chest 1V IMPRESSION: No acute disease.
--- NOTE | 2022-06-01 15:44 | ECG_ITS ---
Test Reason : AFIB Blood Pressure : / mmHG Vent. Rate : 131 BPM Atrial Rate : 000 BPM P-R Int : 000 ms QRS Dur : 082 ms QT Int : 344 ms P-R-T Axes : 000 059 -27 degrees QTc Int : 507 ms Atrial fibrillation with rapid ventricular response Nonspecific ST and T wave abnormality Abnormal ECG When compared with ECG of 08-APR-2022 17:43, Atrial fibrillation has replaced Sinus rhythm Vent. rate has increased BY 59 BPM Non-specific change in ST segment in Inferior leads ST now depressed in Anterior leads Nonspecific T wave abnormality, worse in Inferior leads Nonspecific T wave abnormality now evident in Lateral leads Referred By: Generic ED Physician Electronically Signed By:HANY MOSS MD
[2022-06-01 15:53] VITALS: BP 101/72; PULSE 130; RESP 22; TEMP 36.6; O2SAT 100; BMI 36.3
--- NOTE | 2022-06-01 15:57 | ED.GENADULT ---
HPI - General Adult General Chief complaint: General Medical Stated complaint: AFIB Time Seen by Provider: 06/01/22 15:57 Source: patient and EMS Mode of arrival: EMS History of Present Illness HPI narrative: 76-year-old female with a past medical history of chronic hyponatremia, hyperkalemia, ESRD on dialysis (T/T/S), anemia, bradycardia, diabetes, HLD, hyperparathyroid, AFib not on anticoagulation, HTN, hemorrhagic CVA, presenting to the ED via EMS from dialysis for AFib with RVR. Patient admits to completing 3.5/4 hours of dialysis, stopped prematurely due to heart rate. Was given 20 mg of diltiazem and 4 mg of Zofran by EMS. Denies any complaints at present including CP/SOB, abdominal pain, nausea/vomiting, pedal edema. Onset (ago): hour(s) Related Data Home Medications Medication Instructions Recorded Confirmed acetaminophen 325 mg tablet 650 mg PO Q6H PRN GENERAL 05/21/21 04/15/22 DISCOMFORT melatonin 5 mg tablet 5 mg PO BEDTIME PRN Sleep 11/06/21 04/15/22 docusate sodium 100 mg tablet 100 mg PO BID 04/09/22 04/15/22 fluticasone propionate 50 1 spray intranasal BID 04/09/22 04/15/22 mcg/actuation nasal spray,suspension gabapentin 100 mg capsule 100 mg PO BID 04/09/22 04/15/22 lidocaine 5 % topical patch 1 patch topical DAILY 04/09/22 04/15/22 pantoprazole 40 mg tablet,delayed 40 mg PO DAILY@0630 04/09/22 04/15/22 release sevelamer carbonate 800 mg tablet 800 mg PO TID 04/09/22 04/15/22 vitamin B complex and vitamin C 1 cap PO DAILY 04/09/22 04/15/22 no.20-folic acid 1 mg capsule insulin lispro 100 unit/mL 2 - 10 unit subcut QID 04/15/22 subcutaneous pen Previous Rx's Medication Instructions Recorded blood-glucose meter (FreeStyle #1 ea 04/13/21 Lite Meter kit) TRANSPORT WHEELCHAIR #1 ea 08/03/21 blood pressure monitor #1 ea 08/03/21 aspirin 81 mg tablet,delayed 81 mg PO DAILY #90 tabs 11/12/21 release blood sugar diagnostic (FreeStyle #300 ea 11/12/21 Lite Strips) blood-glucose meter (FreeStyle #1 ea 11/12/21 Lite Meter kit) cholecalciferol (vitamin D3) 25 25 mcg PO DAILY #90 tabs 11/12/21 mcg (1,000 unit) tablet lancets 28 gauge (FreeStyle #100 ea 11/14/21 Lancets) Extra depth orthopedic shoes (1 #1 ea 11/16/21 pair) with customized heat molded multidensity innersoles (3 pair) pen needle, diabetic 32 gauge x #50 ea 02/04/22 (BD Sandra 2nd Gen Pen Needle) apixaban 5 mg tablet (Eliquis) 5 mg PO BID 90 days #180 tabs 02/11/22 atorvastatin 40 mg tablet 40 mg PO BEDTIME #90 tabs 03/07/22 syringe with needle 3 mL 27 gauge #6 ea 03/08/22 x 1 06/26 montelukast 10 mg tablet 10 mg PO BEDTIME #90 tabs 04/27/22 loratadine 10 mg tablet 10 mg PO DAILY 90 days #90 tabs 04/29/22 ferrous sulfate 325 mg (65 mg 325 mg PO DAILY #90 tabs 05/06/22 iron) tablet calcitriol 0.25 mcg capsule See Rx Instructions .Route 05/13/22 .COMPLEX #90 caps hydralazine 25 mg tablet 25 mg PO TID 90 days #270 tabs 05/13/22 levothyroxine 25 mcg tablet 25 mcg PO DAILY@0600 #90 tabs 05/15/22 Allergies Allergy/AdvReac Type Severity Reaction Status Date / Time No Known Allergies Allergy Verified 05/27/22 13:05 Review of Systems Review of Systems: Constitutional: No Fever, No Chills, No Fatigue, No Malaise ENT/Mouth: No Ear Pain, No Nasal Congestion, No sore throat, No Rhinorrhea, No Swallowing Difficulty Eyes: No Eye Pain, No Swelling, No Redness, No Vision Changes Cardiovascular: No Chest Pain, No SOB, No Orthopnea, No Edema, No Palpitations Respiratory: No Cough, No Sputum, No Dyspnea Gastrointestinal: No Nausea, No Vomiting, No Diarrhea, No Constipation, No Abdominal pain Genitourinary: No Dysuria, No Urinary Frequency, No Hematuria, No Flank Pain Musculoskeletal: No joint pain, No Myalgias, No Joint Swelling Skin: No Skin Lesions, No rash Neuro: No Weakness, No Loss of Consciousness, No Dizziness, No Headache Yes all other systems are reviewed and are negative Constitutional: Constitutional: Reports as per [facility] Past Medical History Attestation statement: The following information was validated with the patient. Medical History Acute pericardial effusion Anemia Benign essential hypertension CAD (coronary artery disease) Chronic kidney disease, stage 4 (severe) Dyspnea ESRD (end stage renal disease) ESRD on dialysis Fluid overload GERD (gastroesophageal reflux disease) Hemodialysis patient HLD (hyperlipidemia) Hypertension Hypothyroidism Iron deficiency Nephrotic range proteinuria Obesity (BMI 30-39.9) Osteoarthritis PAF (paroxysmal atrial fibrillation) Paroxysmal atrial fibrillation Pernicious anemia Pure hypercholesterolemia Toe amputee Type 2 diabetes mellitus Surgical History Hx of appendectomy S/P arteriovenous (AV) fistula creation Social History Social History Household Members: None Household Members Other:: [facility] [place] Housing: House Do you presently have visiting nurse or other home services: No Alcohol intake: never Patient Tobacco Use Status: Never used Tobacco e-Cigarette/Vaping Use: Never Used Second Hand Smoke Exposure: No Advance Directives: No Advance Directives Information Provided: No Advance Directives Date on File: 04/10/22 service: No Current occupational status: retired Cognitive needs: Yes Hearing needs: No Vision needs: No Physical Exam ED Vital Signs: Vital Signs - 24 hr 06/01/22 15:53 06/01/22 16:44 Temperature 97.8 F Pulse Rate 130 H 144 H Respiratory Rate 22 H 20 Blood Pressure 101/72 147/77 H Pulse Oximetry 100 96 Oxygen Delivery Method Nasal Cannula Nasal Cannula Oxygen Flow Rate 2 BMI result Body Mass Index 36.3 Const General: cooperative, well developed and alert Orientation/consciousness: patient oriented x3 Limitations: no limitations HENMT Head: Yes normal to inspection and Yes atraumatic Ears: hearing grossly normal bilaterally General nose exam: Normal external nose present Face and sinus: Yes normal facial exam Eyes General: appearance normal, both eyes and all related structures EOM: EOMs intact bilaterally Neck Neck: Yes normal visual inspection and Yes no meningeal signs Resp Effort & Inspection: normal respiratory effort and no respiratory distress Auscultation: clear to auscultation bilaterally, no crackles, no rales, no rhonchi and no wheezes Cardio Rate: regular rate Heart sounds: S1 normal heart sound present and S2 normal heart sound present GI Inspection: Yes normal to inspection Palpation (GI): Soft to palpation, nontender, no guarding and not rigid Skin Rashes: no rashes Wounds: no wounds Neuro Other: + chronic nonpitting bilateral LE edema General: patient oriented x3, tone normal and no meningeal signs Gait exam (Neuro): Normal gait present Extrem General: Yes normal to inspection and Yes no calf tenderness Course Course Course Narrative: -patient's BP soft will give additional 10 mg of IV Cardizem >> patient's heart rate still 144 > will initiate Cardizem drip -1722--no leukocytosis. H&H stable. Chronic CKD better than baseline as patient coming from dialysis. Troponin chronically elevated likely from CKD > will obtain 3hr repeat. BNP acute on chronically elevated at 1302 -COVID-19/influenza/RSV negative XR chest 1V IMPRESSION: No acute disease. >>1727--plan to admit for further management Medications Administered Discontinued Medications Generic Name Dose Route Start Last Admin Trade Name Freq PRN Reason Stop Dose Admin Diltiazem HCl 10 mg 06/01/22 16:10 06/01/22 16:40 Diltiazem Hcl 50 Mg/10 Ml Vial IVPUSH 06/01/22 16:11 10 mg STAT STA Administration Medical Decision Making Medical Decision Making [facility] Narrative: 76-year-old female with a past medical history of chronic hyponatremia, hyperkalemia, ESRD on dialysis (T/T/S), anemia, bradycardia, diabetes, HLD, hyperparathyroid, AFib not on anticoagulation, HTN, hemorrhagic CVA, presenting to the ED via EMS from dialysis for AFib with RVR. On exam patient in AFib with RVR at a rate of 130, asymptomatic at present, lungs CTA, chronic nonpitting lower extremity edema, exam otherwise nonfocal. Rule out metabolic/infectious etiologies vs ACS vs CHF very low suspicion for CVA/DVT or PE Plan: EKG, labs, CXR, UA, IV diltiazem, re-evaluate Differential Diagnoses: Differential diagnosis (As above) Discussion of management with other physician/healthcare provider/other source (e.g., hospitalist, databases software consultant, behavioral health): Discussion w/other physician/healthcare provider (Dr. Oden) Lab Attestation: I reviewed the patient's lab results. Independent interpretation of EKG, rhythm strip, radiology study: Independent interp EKG,rhythm strip, radiology study I performed an independent interpretation of the: EKG My interpretation is AFib with RVR at a rate of 131. QTC 507. No STEMI. Independent historian (e.g., spouse, EMS, friend): Independent historian (e.g., spouse, EMS, friend) Clinical information obtained from an independent historian. History obtained from or confirmed by: EMS Non-ED record review: Review of External (Non-ED) Record External record reviewed:: Inpatient record, Outpatient record, Prior outpatient labs and Prior outpatient radiology Chronic conditions affecting care (e.g., diabetes, HTN): Chronic conditions affecting care (e.g., diabetes, HTN) (ESRD on HD) Patient?s care impacted by: Diabetes and Hypertension Critical Care Time Critical Care Time Critical Care Time: Yes Total Critical Care Time: 40 Attestation: I have personally provided critical care time exclusive of time spent on separately billable procedures. Time includes review of lab data, radiology results, discussion with consultants, and monitoring for potential decompensation. Intervention performed as documented. Discharge Plan Discharge Clinical Impression: Atrial fibrillation with rapid ventricular response Patient Disposition: Admitted As Inpatient
[2022-06-01 15:58] LABS: Glucose, Whole Blood 173 mg/dL (60-115)
[2022-06-01] MEDS: dilTIAZem HCL 50 MG/10 ML VIAL 10 MG IVPUSH (16:40)
[2022-06-01 16:41] LABS: MANUAL DIFF FLAG NO
[2022-06-01 16:43] LABS: Basophils Absolute Auto 0.1 X10*3/uL (0.0-0.2); Basophils Percent Auto 0.6 % (0-2); Eosinophils Absolute Auto 0.4 X10*3/uL (0.0-0.4); Eosinophils Percent Auto 5.3 % (0-4); Hematocrit 30.9 % (37.0-47.0); Imm Gran Abs Auto 0.02 X10*3/uL (0.00-0.03); Imm Gran Pct Auto 0.2 % (0.0-0.4); Lymphocytes Absolute Auto 0.8 X10*3/uL (1.2-4.9); Mean Corpuscular HGB Conc 32.4 g/dl (31.0-35.0); Mean Corpuscular Hemoglobin 31.2 pg (27.0-33.0); Mean Corpuscular Volume 96.3 fL (80.0-98.0); Mean Platelet Volume 9.6 fL (9.4-12.3); Monocytes Absolute Auto 0.4 X10*3/uL (0.1-1.2); Monocytes Percent Auto 5.1 % (2-11); Neutrophils Absolute Auto 6.5 x10*3/uL (2.0-8.3); Neutrophils Percent Auto 78.8 % (45-73); Platelet Count 190 X10*3/uL (160-400); Red Blood Count 3.21 X10*6/uL (4.20-5.50); Red Cell Distribution Width 15.5 % (11.0-16.0); White Blood Count 8.3 X10*3/uL (4.8-10.8)
[2022-06-01 16:44] VITALS: BP 147/77; PULSE 144; RESP 20; O2SAT 96
[2022-06-01 16:48] LABS: INTERNATIONAL NORM RATIO 1.4 (0.9-1.1); Prothrombin Time 16.6 SEC (10.0-13.1)
[2022-06-01 17:06] LABS: Alanine Aminotransferase 8 U/L (0-31); Albumin Level 3.6 g/dL (3.5-5.0); Alkaline Phosphatase 121 U/L (39-117); Anion Gap 16 (12-20); Aspartate Amino Transferase 17 U/L (5-31); B Type Natriuretic Peptide 1302 pg/mL (<100); Bilirubin Direct 0.2 mg/dL (0.0-0.5); Bilirubin Total 0.7 mg/dL (0.0-1.0); Blood Urea Nitrogen 15 mg/dL (9-16); Calcium 8.3 mg/dL (8.4-10.2); Carbon Dioxide 27 mmol/L (22-29); Chloride 95 mmol/L (96-108); Creatinine Clr Calc Pharmacy 23.9; Estimated Glomerular Filt Rate 24; Glucose Random 199 mg/dL (60-115); Magnesium 1.7 mg/dL (1.6-2.6); Potassium 3.4 mmol/L (3.3-5.1); Sodium 135 mmol/L (135-145); Total Protein 6.5 g/dL (6.5-8.0)
[2022-06-01 17:07] LABS: Troponin-I High Sensitivity 43.3 ng/L (<3.5-17.0)
[2022-06-01 17:17] LABS: Influenza A PCR NEGATIVE (Negative); Influenza B PCR NEGATIVE (Negative); Resp Syncy Virus RNA Qual PCR NEGATIVE (Negative); SARS COV2 PCR INHOUSE NEGATIVE (Negative)
[2022-06-01] MEDS: dilTIAZem HCL 125 MG in 0.9 % Sodium Chloride 100 ML 10 MG IVCONT (17:44)
[2022-06-01 18:08] VITALS: BP 151/70; PULSE 128; RESP 20; O2SAT 100
--- NOTE | 2022-06-01 18:33 | P.HPHOSP_ITS ---
History of Present Illness Date of Service: 06/01/22 Chief Complaint: Tachycardia, AFIB with RVR 76-year-old female with past medical history of chronic hyponatremia, hyperkalemia, end-stage renal disease on dialysis Friday,, anemia, bradycardia, diabetes, hyperlipidemia, hyperparathyroidism, AFib on Elequis, HTN. She was being dialyes at outpatient dialysis center when about 3.5 hours into dialysis, her heart rate jumped up into 140s, she ddidn't feels anything defferent. She tells me that just yesterrday she a device removed from her (her descriptions sounds like a holter monitor). She hasd been given IV cardizem 20 mg by EMS and additional 10 mg in ED with persistent tachycardia in to 140 and is been started on IV cardizem drip. No papitations Review of Systems Review of Systems: Gen: no fever Resp: no sob, no cough CV: no chest, no GUERRA, no leg edema, no palpitations GI: No n/v, no abd pain Neuro: No confusion [facility] Medical History Acute pericardial effusion Anemia Benign essential hypertension CAD (coronary artery disease) Chronic kidney disease, stage 4 (severe) Dyspnea ESRD (end stage renal disease) ESRD on dialysis Fluid overload GERD (gastroesophageal reflux disease) Hemodialysis patient HLD (hyperlipidemia) Hypertension Hypothyroidism Iron deficiency Nephrotic range proteinuria Obesity (BMI 30-39.9) Osteoarthritis PAF (paroxysmal atrial fibrillation) Paroxysmal atrial fibrillation Pernicious anemia Pure hypercholesterolemia Toe amputee Type 2 diabetes mellitus Surgical History Hx of appendectomy S/P arteriovenous (AV) fistula creation Social History Household Members: Other Household Members Other:: [facility] Housing: Assisted Living Facility Do you presently have visiting nurse or other home services: Yes Alcohol intake: never Patient Tobacco Use Status: Never used Tobacco Smoked in Last 30 Days: No e-Cigarette/Vaping Use: Never Used Patient Interested in Nicotine Replacement: No Patient Given Instructions on How to Stop Smoking: No Second Hand Smoke Exposure: No Use of substances other than those prescribed or required for medical reasons: No Currently Displaying Signs/Symptoms of Drug Intoxication Withdrawal: No Any prior treatment program specific to substance use: No Have you been hit, kicked, punched, or otherwise hurt by someone within the past year? If so, by whom?: No Do you feel safe in your current relationship?: No Is there a partner from a previous relationship who is making you feel unsafe now?: No Are you made to feel afraid or neglected: No Advance Directives: No Advance Directives Information Provided: No Advance Directives Date on File: 04/10/22 Do you have thoughts of harming others: None Do you have a plan to hurt others: No Plan Recently lost weight without trying: No Patient : No : No Poor oral hygiene: No service: No Current occupational status: retired Cognitive needs: Yes Hearing needs: No Vision needs: No Meds Allergies Allergy/AdvReac Type Severity Reaction Status Date / Time No Known Allergies Allergy Verified 05/27/22 13:05 Active Medications: Current Medications Acetaminophen (Acetaminophen 325 Mg Tablet) 650 mg PO Q6H PRN PRN Reason: Pain, Mild (Pain Scale 1-3) Diltiazem HCl 125 mg/ Sodium (Chloride) 125 mls @ 0 mls/hr IVCONT .Q0M [facility]IE; Protocol Last Titration: 06/01/22 18:09 Dose: 15 mg/hr, 15 mls/hr Magnesium Hydroxide (Milk Of Magnesia 30 Ml Oral.Susp) 30 ml PO DAILY PRN PRN Reason: Constipation Melatonin (Melatonin 3 Mg Tablet) 6 mg PO BEDTIME PRN PRN Reason: Insomnia Ondansetron HCl (Ondansetron Hcl 4 Mg/2 Ml Vial) 4 mg IVPUSH Q8H PRN PRN Reason: Nausea and Vomiting Pharmacy Consult (Consult Rx Perform Med Rec) 1 each MISCELLANE ONCE STA Stop: 06/01/22 16:58 Sodium Chloride (0.9 % Sodium Chloride Flush 3 Ml Syringe) 3 ml IVFLUSH [facility] Temazepam (Temazepam 15 Mg Capsule) 15 mg PO BEDTIME PRN PRN Reason: Insomnia Home Medications Medication Instructions Recorded Confirmed Last Taken Type docusate sodium 100 mg tablet 100 mg PO BID 04/09/22 06/02/22 Unknown History gabapentin 100 mg capsule 100 mg PO BEDTIME 04/09/22 06/02/22 Unknown History lidocaine 5 % topical patch 1 patch topical DAILY 04/09/22 06/02/22 Unknown History pantoprazole 40 mg tablet,delayed 40 mg PO DAILY@0630 04/09/22 06/02/22 06/01/22 History release sevelamer carbonate 800 mg tablet 800 mg PO TID 04/09/22 06/02/22 Unknown History vitamin B complex and vitamin C 1 cap PO DAILY 04/09/22 06/02/22 Unknown History no.20-folic acid 1 mg capsule insulin lispro 100 unit/mL 2 - 10 unit subcut QID 04/15/22 06/02/22 Unknown History subcutaneous pen cyanocobalamin (vitamin B-12) 1 ml IM Q4W 06/01/22 06/02/22 Unknown History 1,000 mcg/mL injection solution diltiazem HCl 180 mg 1 cap PO DAILY 06/01/22 06/02/22 Unknown History capsule,extended release 24 hr insulin glargine 100 unit/mL (3 8 unit subcut BEDTIME 06/01/22 06/02/22 Unknown History mL) subcutaneous pen (Lantus Solostar U-100 Insulin) Physical Exam Vital Signs and Narrative: Vital Signs: Last Vital Signs Temp 97.8 F 06/01/22 15:53 Pulse 128 H 06/01/22 18:08 Resp 20 06/01/22 18:08 BP 151/70 H 06/01/22 18:08 Pulse Ox 100 06/01/22 18:08 O2 Del Method 06/01/22 18:08 O2 Flow Rate 2 06/01/22 18:08 Oxygen Flow Rate 2 06/01/22 15:53 BMI result Body Mass Index 36.3 Const: Other: Constitutional: Alert, in no distress, overweight. Mental Status: Oriented to person, place and time. Eyes: Pupils are equal, round and reactive to light. Ear, Nose and Throat: Oropharynx clear, mucous membranes moist. Ears and nose without eformities. Trachea midline. Respiratory: Clear to auscultation. No wheezing, rales or rhonchi. Cardiovascular: S1 S2 iregular ireregular. No murmurs, rubs or gallops. Gastrointestinal: Abdomen soft, non-tender, non-distended. Normal bowel sounds.? Neurologic: Cranial nerves II-XII grossly intact. No focal neurological deficits . Moves all extremities spontaneously.? Skin: No rashes or lesions.? Musculoskeletal: No cyanosis or clubbing. Psychiatric: Normal mood and affect? Results Labs CBC and Chem 7: 06/01/22 16:24 06/01/22 16:36 Labs: Laboratory Results - last 24 hr 06/01/22 06/01/22 06/01/22 15:54 16:24 16:24 MCV 96.3 MCH 31.2 MCHC 32.4 RDW 15.5 Plt Count 190 MPV 9.6 Immature Gran % (Auto) 0.2 Neut % (Auto) 78.8 H Lymph % (Auto) 10.0 L [place] % (Auto) 5.1 Eos % (Auto) 5.3 H Baso % (Auto) 0.6 Lymph # (Auto) 0.8 L [place] # (Auto) 0.4 Eos # (Auto) 0.4 Baso # (Auto) 0.1 Abs Immat Gran (auto) 0.02 Absolute Neuts (auto) 6.5 Absolute Nucleated RBC 0.000 Nucleated RBC % (auto) 0.0 PT INR Anion Gap Estim Creat Clear Calc Estimated GFR POC Glucose 173 H Random Glucose Calcium Magnesium Total Bilirubin Direct Bilirubin AST ALT Alkaline Phosphatase Troponin I High Sens B-Natriuretic Peptide Total Protein Albumin Influenza Type A (PCR) NEGATIVE Influenza Type B (PCR) NEGATIVE RSV RNA Qual (PCR) NEGATIVE SARS-CoV-2 RNA (RT-PCR) NEGATIVE 06/01/22 06/01/22 06/01/22 16:35 16:35 16:36 MCV MCH MCHC RDW Plt Count MPV Immature Gran % (Auto) Neut % (Auto) Lymph % (Auto) [place] % (Auto) Eos % (Auto) Baso % (Auto) Lymph # (Auto) [place] # (Auto) Eos # (Auto) Baso # (Auto) Abs Immat Gran (auto) Absolute Neuts (auto) Absolute Nucleated RBC Nucleated RBC % (auto) PT 16.6 H INR 1.4 H Anion Gap 16 Estim Creat Clear Calc 23.9 Estimated GFR 24 POC Glucose Random Glucose 199 H Calcium 8.3 L Magnesium 1.7 Total Bilirubin 0.7 Direct Bilirubin 0.2 AST 17 ALT 8 Alkaline Phosphatase 121 H Troponin I High Sens 43.3 H B-Natriuretic Peptide Total Protein 6.5 Albumin 3.6 Influenza Type A (PCR) Influenza Type B (PCR) RSV RNA Qual (PCR) SARS-CoV-2 RNA (RT-PCR) 06/01/22 16:36 MCV MCH MCHC RDW Plt Count MPV Immature Gran % (Auto) Neut % (Auto) Lymph % (Auto) [place] % (Auto) Eos % (Auto) Baso % (Auto) Lymph # (Auto) [place] # (Auto) Eos # (Auto) Baso # (Auto) Abs Immat Gran (auto) Absolute Neuts (auto) Absolute Nucleated RBC Nucleated RBC % (auto) PT INR Anion Gap Estim Creat Clear Calc Estimated GFR POC Glucose Random Glucose Calcium Magnesium Total Bilirubin Direct Bilirubin AST ALT Alkaline Phosphatase Troponin I High Sens B-Natriuretic Peptide 1302 H Total Protein Albumin Influenza Type A (PCR) Influenza Type B (PCR) RSV RNA Qual (PCR) SARS-CoV-2 RNA (RT-PCR) Imaging Radiologist's Impressions: Impressions Chest X-Ray 06/01/22 16:20 IMPRESSION: No acute disease. Assessment and Plan (1) Atrial fibrillation with rapid ventricular response: Status: Acute Plan 76-year-old female with past medical history of chronic hyponatremia, hyperkalemia, end-stage renal disease on dialysis Friday,, a nemia, bradycardia, diabetes, hyperlipidemia, hyperparathyroidism, AFib on Elequis, HTN. She was being dialyes at outpatient dialysis center when about 3.5 hours into dialysis, her heart rate jumped up into 140s and found to have AFIB with RVR 1/ AFIB with RVR -IV cardizem -Eliquis 2/ ESRD--dialysis as usual (TTS)if remains in the hospital 3/ Hypothyroidism--Levothryoxone 4/ Diabeeetes--insulin] 5/GERD -PPI DVT propy: eliquis Admission for at least 2 midnights for management of AFIB with RVR on iv cardizem drip med rec not yet done Time Spent With Patient Time: Total time managing care of this patient today 65 minutes. Quality Stroke Does the patient have a stroke diagnosis?: No VTE Prior VTE?: No VTE Risk Level:: Medical - low VTE Device Contraindication: Treatment Not Indicated VTE Drug Contraindication: N/A - Med Ordered
--- NOTE | 2022-06-01 19:14 | PC.NURSE ---
Attempted to call report at 19:14. Told to call back after change of shift
[2022-06-01 19:54] LABS: Troponin-I High Sensitivity 229.6 ng/L (<3.5-17.0)
[2022-06-01 20:49] VITALS: BP 172/63; PULSE 102; RESP 22; TEMP 36.8; O2SAT 100
[2022-06-01 21:05] LABS: Glucose, Whole Blood 213 mg/dL (60-115)
[2022-06-01 21:10] VITALS: BMI 36.3
[2022-06-01] MEDS: Apixaban 5 MG TABLET PO (22:39)
[2022-06-01] MEDS: Insulin Lispro 100 UNIT/ML 3 ML VIAL SUBCUT (22:40)
[2022-06-01 22:57] VITALS: BP 146/59; PULSE 82; RESP 17; TEMP 36.1; O2SAT 97
--- NOTE | 2022-06-02 | ECG_ITS ---
Test Reason : cp Blood Pressure : / mmHG Vent. Rate : 104 BPM Atrial Rate : 104 BPM P-R Int : 172 ms QRS Dur : 078 ms QT Int : 370 ms P-R-T Axes : 016 063 003 degrees QTc Int : 486 ms Sinus tachycardia Nonspecific T wave abnormality Abnormal ECG When compared with ECG of 01-JUN-2022 16:07, Sinus rhythm has replaced Atrial fibrillation Referred By: Sunny Bailey Electronically Signed By:BETY NIÑO
[2022-06-02] MEDS: 0.9 % Sodium Chloride Flush 3 ML SYRINGE IVFLUSH ×2 (01:17→09:01)
[2022-06-02 03:46] VITALS: BP 140/59; PULSE 56; RESP 18; TEMP 36.4; O2SAT 96
[2022-06-02 07:12] VITALS: BP 134/62; PULSE 84; RESP 18; TEMP 36.2; O2SAT 96
[2022-06-02 07:49] LABS: Glucose, Whole Blood 153 mg/dL (60-115)
--- NOTE | 2022-06-02 08:56 | PHA.MEDREC ---
Pharmacy Consult ? Medication Reconciliation Pharmacy has completed the medication reconciliation. [employer] services utilized, pt unsure of what medications she takes but stated she took them yesterday morning. Told me that her son helps with her medications. Called her son, Jason, who told me she was just here a few weeks ago and takes all the same medications, nothing has changed. Jason unable to provide me with a list. Used a combination of pharmacy claim history and past med rec notes to complete.
[2022-06-02] MEDS: Metoprolol Tartrate 25 MG TABLET PO ×2 (08:57→20:47)
[2022-06-02] MEDS: Apixaban 5 MG TABLET PO ×2 (08:57→20:47)
[2022-06-02] MEDS: Insulin Lispro 100 UNIT/ML 3 ML VIAL SUBCUT ×3 (08:57→20:58)
--- NOTE | 2022-06-02 10:25 | HO.PM.IMPN ---
Subjective Subjective Date of Service: 06/02/22 Interval History: f/u AFIB interval history: rate is now controlled, no palpitatons, no signs of heart failure Review of Systems Gen: no fever Resp: no sob, no cough CV: no chest, no GUERRA, no leg edema, no palpitations GI: No n/v, no abd pain Neuro: No confusion Physical Exam Vital Signs: Vital Signs: Last Vital Signs Temp 97.2 F 06/02/22 07:12 Pulse 84 06/02/22 07:12 Resp 18 06/02/22 07:12 BP 134/62 06/02/22 07:12 Pulse Ox 96 06/02/22 07:12 O2 Del Method 06/02/22 03:46 O2 Flow Rate 2 06/01/22 20:49 Oxygen Flow Rate 2 06/01/22 15:53 BMI result Body Mass Index 36.3 Const: Other: General: AO X 3, no acute distress Resp: CTA bilateral CVS: S1,S2, IrIr GI: +BS, NT, no distention Skin: No rash Neuro: motor grossly intact Psych: appropriate affect Objective Data Active Medications Acetaminophen (Acetaminophen 325 Mg Tablet) 650 mg PO Q6H PRN PRN Reason: Pain, Mild (Pain Scale 1-3) Apixaban (Apixaban 5 Mg Tablet) 5 mg PO BID [facility] Last Admin: 06/02/22 08:57 Dose: 5 mg Documented By: PRAVIN Atorvastatin Calcium (Atorvastatin Calcium 40 Mg Tablet) 40 mg PO BEDTIME [facility] Cyanocobalamin (Cyanocobalamin (Vitamin B-12) 1,000 Mcg/Ml Vial) mcg IM Q4W [facility] Docusate Sodium (Docusate Sodium 100 Mg Capsule) 100 mg PO BID [facility] Gabapentin (Gabapentin 100 Mg Capsule) 100 mg PO BEDTIME [facility] Hydralazine HCl (Hydralazine Hcl 25 Mg Tablet) 25 mg PO TID [facility]; Protocol Diltiazem HCl 125 mg/ Sodium (Chloride) 125 mls @ 0 mls/hr IVCONT .Q0M [facility]; Protocol Last Titration: 06/01/22 21:32 Dose: 0 mg/hr, 0 mls/hr Documented By: ZIONIGJeffrey Insulin Glargine (Insulin Glargine,Hum.Rec.Anlog 100 Unit/Ml 10 Ml Vial) 8 unit SUBCUT BEDTIME [facility] Insulin Human Lispro (Insulin Lispro 100 Unit/Ml 3 Ml Vial) 0 unit SUBCUT QIDACHS [facility]; Protocol Last Admin: 06/02/22 08:57 Dose: 2 unit Documented By: PRAVIN Levothyroxine Sodium (Levothyroxine Sodium 25 Mcg Tablet) 25 mcg PO DAILY@0600 [facility] Loratadine (Loratadine 10 Mg Tablet) 10 mg PO DAILY [facility] Magnesium Hydroxide (Milk Of Magnesia 30 Ml Oral.Susp) 30 ml PO DAILY PRN PRN Reason: Constipation Melatonin (Melatonin 3 Mg Tablet) 6 mg PO BEDTIME PRN PRN Reason: Insomnia Metoprolol Tartrate (Metoprolol Tartrate 25 Mg Tablet) 25 mg PO BID [facility]; Protocol Last Admin: 06/02/22 08:57 Dose: 25 mg Documented By: PRAVIN Montelukast Sodium (Montelukast Sodium 10 Mg Tablet) 10 mg PO BEDTIME [facility] Multivitamins/Vitamin C (Multivitamin Tablet) 1 tab PO DAILY [facility] Non-Formulary Medication (Ferrous Sulfate) 325 mg PO DAILY [facility] Non-Formulary Medication (Lidocaine) 1 patch TOPICAL DAILY [facility] Non-Formulary Medication (Pantoprazole) 40 mg PO DAILY@0630 [facility] Ondansetron HCl (Ondansetron Hcl 4 Mg/2 Ml Vial) 4 mg IVPUSH Q8H PRN PRN Reason: Nausea and Vomiting Sevelamer Carbonate (Sevelamer Carbonate Tablet 800 Mg Tablet) 800 mg PO TID [facility] Sodium Chloride (0.9 % Sodium Chloride Flush 3 Ml Syringe) 3 ml IVFLUSH QSHIFT [facility] Last Admin: 06/02/22 09:01 Dose: 3 ml Documented By: PRAVIN Temazepam (Temazepam 15 Mg Capsule) 15 mg PO BEDTIME PRN PRN Reason: Insomnia Labs CBC & Chem 7: 06/01/22 16:24 06/01/22 16:36 Labs: Laboratory Results - last 24 hr 06/01/22 06/01/22 06/01/22 15:54 16:24 16:24 MCV 96.3 MCH 31.2 MCHC 32.4 RDW 15.5 Plt Count 190 MPV 9.6 Immature Gran % (Auto) 0.2 Neut % (Auto) 78.8 H Lymph % (Auto) 10.0 L [place] % (Auto) 5.1 Eos % (Auto) 5.3 H Baso % (Auto) 0.6 Lymph # (Auto) 0.8 L [place] # (Auto) 0.4 Eos # (Auto) 0.4 Baso # (Auto) 0.1 Abs Immat Gran (auto) 0.02 Absolute Neuts (auto) 6.5 Absolute Nucleated RBC 0.000 Nucleated RBC % (auto) 0.0 PT INR Anion Gap Estim Creat Clear Calc Estimated GFR POC Glucose 173 H Random Glucose Calcium Magnesium Total Bilirubin Direct Bilirubin AST ALT Alkaline Phosphatase Troponin I High Sens B-Natriuretic Peptide Total Protein Albumin Influenza Type A (PCR) NEGATIVE Influenza Type B (PCR) NEGATIVE RSV RNA Qual (PCR) NEGATIVE SARS-CoV-2 RNA (RT-PCR) NEGATIVE 06/01/22 06/01/22 06/01/22 16:35 16:35 16:36 MCV MCH MCHC RDW Plt Count MPV Immature Gran % (Auto) Neut % (Auto) Lymph % (Auto) [place] % (Auto) Eos % (Auto) Baso % (Auto) Lymph # (Auto) [place] # (Auto) Eos # (Auto) Baso # (Auto) Abs Immat Gran (auto) Absolute Neuts (auto) Absolute Nucleated RBC Nucleated RBC % (auto) PT 16.6 H INR 1.4 H Anion Gap 16 Estim Creat Clear Calc 23.9 Estimated GFR 24 POC Glucose Random Glucose 199 H Calcium 8.3 L Magnesium 1.7 Total Bilirubin 0.7 Direct Bilirubin 0.2 AST 17 ALT 8 Alkaline Phosphatase 121 H Troponin I High Sens 43.3 H B-Natriuretic Peptide Total Protein 6.5 Albumin 3.6 Influenza Type A (PCR) Influenza Type B (PCR) RSV RNA Qual (PCR) SARS-CoV-2 RNA (RT-PCR) 06/01/22 06/01/22 06/01/22 16:36 19:10 21:01 MCV MCH MCHC RDW Plt Count MPV Immature Gran % (Auto) Neut % (Auto) Lymph % (Auto) [place] % (Auto) Eos % (Auto) Baso % (Auto) Lymph # (Auto) [place] # (Auto) Eos # (Auto) Baso # (Auto) Abs Immat Gran (auto) Absolute Neuts (auto) Absolute Nucleated RBC Nucleated RBC % (auto) PT INR Anion Gap Estim Creat Clear Calc Estimated GFR POC Glucose 213 H Random Glucose Calcium Magnesium Total Bilirubin Direct Bilirubin AST ALT Alkaline Phosphatase Troponin I High Sens 229.6 H* D B-Natriuretic Peptide 1302 H Total Protein Albumin Influenza Type A (PCR) Influenza Type B (PCR) RSV RNA Qual (PCR) SARS-CoV-2 RNA (RT-PCR) 06/02/22 07:16 MCV MCH MCHC RDW Plt Count MPV Immature Gran % (Auto) Neut % (Auto) Lymph % (Auto) [place] % (Auto) Eos % (Auto) Baso % (Auto) Lymph # (Auto) [place] # (Auto) Eos # (Auto) Baso # (Auto) Abs Immat Gran (auto) Absolute Neuts (auto) Absolute Nucleated RBC Nucleated RBC % (auto) PT INR Anion Gap Estim Creat Clear Calc Estimated GFR POC Glucose 153 H Random Glucose Calcium Magnesium Total Bilirubin Direct Bilirubin AST ALT Alkaline Phosphatase Troponin I High Sens B-Natriuretic Peptide Total Protein Albumin Influenza Type A (PCR) Influenza Type B (PCR) RSV RNA Qual (PCR) SARS-CoV-2 RNA (RT-PCR) Assessment and Plan (1) Atrial fibrillation with rapid ventricular response: Status: Acute Plan 76-year-old female with past medical history of chronic hyponatremia, hyperkalemia, end-stage renal disease on dialysis Friday,, anemia, bradycardia, diabetes, hyperlipidemia, hyperparathyroidism, AFib on Elequis, HTN. She was being dialyes at outpatient dialysis center when about 3.5 hours into dialysis, her heart rate jumped up into 140s and found to have AFIB with RVR 1/ AFIB with RVR, now rate controlled -started on Metoprolol 25 bid, dc cardizem,continue Eliquis 2/ ESRD--dialysis as usual (TTS)if remains in the hospital 3/ Hypothyroidism--Levothryoxone 4/ Diabeeetes--insulin, diabetic diet 5/GERD -PPI DVT propy: eliquis need for inapteient: management of afib with RVR Time Spent With Patient Time: Total time managing care of this patient today ____ minutes. Quality Stroke Does the patient have a stroke diagnosis?: No VTE Prior VTE?: No VTE Risk Level:: Medical - low VTE Device Contraindication: Treatment Not Indicated VTE Drug Contraindication: N/A - Med Ordered
--- NOTE | 2022-06-02 10:32 | P.DS_ITS ---
DS: Providers Provider Date of Service: 06/02/22 Date of admission: 06/01/22 18:29 Primary care physician: Lonnie Khan MD Consults: 06/02/22 08:05 Consult to Cardiology Routine Consulting Provider: Sunny Bailey Reason for consultation: afib with RVR Has provider been notified: No DS: Diagnosis Discharge Diagnosis (1) Atrial fibrillation with rapid ventricular response: Status: Resolved DS: Summary Hospital Course Hospital Course: Chief Complaint: Tachycardia, AFIB with RVR 76-year-old female with past medical history of chronic hyponatremia, hyperkalemia, end-stage renal disease on dialysis Friday,, anemia, bradycardia, diabetes, hyperlipidemia, hyperparathyroidism, AFib on Elequis,? HTN. She was being dialyes at outpatient dialysis center when about 3.5 hours into dialysis, her heart rate jumped up into 140s, she ddidn't feels anything defferent. She tells me that just yesterrday she? a device removed from her (her descriptions sounds like a holter monitor). She hasd been given IV cardizem 20 mg by EMS and additional 10 mg in ED with persistent tachycardia into 140 and is been started on IV cardizem drip. No papitations Hospital course: Patient was admitted overnight and was on IV cardizem which controlled the heart rate. He was evaluated by cardiology (Dr. Bailey) and recommended stopping oral cardizem and starting Multaq 400 bid and to continue eliquis. Final diagnosis: AFIB with RVR ESRD Time Spent with Patient Time attestation: Total time managing care of this patient today ____ minutes. Discharge coordination time: Greater than 30 minutes Quality: Safe Use of Opioids Does Pt have an Active Cancer Diagnosis on the Problem List?: No Quality: Stroke Does the patient have a stroke diagnosis?: No Physical Exam Vital Signs: Vital Signs: Last Vital Signs Temp 97.2 F 06/02/22 07:12 Pulse 84 06/02/22 07:12 Resp 18 06/02/22 07:12 BP 134/62 06/02/22 07:12 Pulse Ox 96 06/02/22 07:12 O2 Del Method 06/02/22 03:46 O2 Flow Rate 2 06/01/22 20:49 Oxygen Flow Rate 2 06/01/22 15:53 BMI result Body Mass Index 36.3 DS: Data Data Completed and Pending Completed studies during hospitalization [Text1]: Procedures Labs on day of discharge: Laboratory Results - last 24 hr 06/01/22 06/01/22 06/01/22 15:54 16:24 16:24 WBC 8.3 RBC 3.21 L D Hgb 10.0 L D Hct 30.9 L D MCV 96.3 MCH 31.2 MCHC 32.4 RDW 15.5 Plt Count 190 MPV 9.6 Immature Gran % (Auto) 0.2 Neut % (Auto) 78.8 H Lymph % (Auto) 10.0 L [place] % (Auto) 5.1 Eos % (Auto) 5.3 H Baso % (Auto) 0.6 Lymph # (Auto) 0.8 L [place] # (Auto) 0.4 Eos # (Auto) 0.4 Baso # (Auto) 0.1 Abs Immat Gran (auto) 0.02 Absolute Neuts (auto) 6.5 Absolute Nucleated RBC 0.000 Nucleated RBC % (auto) 0.0 PT INR Sodium Potassium Chloride Carbon Dioxide Anion Gap BUN Creatinine Estim Creat Clear Calc Estimated GFR POC Glucose 173 H Random Glucose Calcium Magnesium Total Bilirubin Direct Bilirubin AST ALT Alkaline Phosphatase Troponin I High Sens B-Natriuretic Peptide Total Protein Albumin Influenza Type A (PCR) NEGATIVE Influenza Type B (PCR) NEGATIVE RSV RNA Qual (PCR) NEGATIVE SARS-CoV-2 RNA (RT-PCR) NEGATIVE 06/01/22 06/01/22 06/01/22 16:35 16:35 16:36 WBC RBC Hgb Hct MCV MCH MCHC RDW Plt Count MPV Immature Gran % (Auto) Neut % (Auto) Lymph % (Auto) [place] % (Auto) Eos % (Auto) Baso % (Auto) Lymph # (Auto) [place] # (Auto) Eos # (Auto) Baso # (Auto) Abs Immat Gran (auto) Absolute Neuts (auto) Absolute Nucleated RBC Nucleated RBC % (auto) PT 16.6 H INR 1.4 H Sodium 135 Potassium 3.4 Chloride 95 L Carbon Dioxide 27 Anion Gap 16 BUN 15 Creatinine 1.99 H Estim Creat Clear Calc 23.9 Estimated GFR 24 POC Glucose Random Glucose 199 H Calcium 8.3 L Magnesium 1.7 Total Bilirubin 0.7 Direct Bilirubin 0.2 AST 17 ALT 8 Alkaline Phosphatase 121 H Troponin I High Sens 43.3 H B-Natriuretic Peptide Total Protein 6.5 Albumin 3.6 Influenza Type A (PCR) Influenza Type B (PCR) RSV RNA Qual (PCR) SARS-CoV-2 RNA (RT-PCR) 06/01/22 06/01/22 06/01/22 16:36 19:10 21:01 WBC RBC Hgb Hct MCV MCH MCHC RDW Plt Count MPV Immature Gran % (Auto) Neut % (Auto) Lymph % (Auto) [place] % (Auto) Eos % (Auto) Baso % (Auto) Lymph # (Auto) [place] # (Auto) Eos # (Auto) Baso # (Auto) Abs Immat Gran (auto) Absolute Neuts (auto) Absolute Nucleated RBC Nucleated RBC % (auto) PT INR Sodium Potassium Chloride Carbon Dioxide Anion Gap BUN Creatinine Estim Creat Clear Calc Estimated GFR POC Glucose 213 H Random Glucose Calcium Magnesium Total Bilirubin Direct Bilirubin AST ALT Alkaline Phosphatase Troponin I High Sens 229.6 H* D B-Natriuretic Peptide 1302 H Total Protein Albumin Influenza Type A (PCR) Influenza Type B (PCR) RSV RNA Qual (PCR) SARS-CoV-2 RNA (RT-PCR) 06/02/22 07:16 WBC RBC Hgb Hct MCV MCH MCHC RDW Plt Count MPV Immature Gran % (Auto) Neut % (Auto) Lymph % (Auto) [place] % (Auto) Eos % (Auto) Baso % (Auto) Lymph # (Auto) [place] # (Auto) Eos # (Auto) Baso # (Auto) Abs Immat Gran (auto) Absolute Neuts (auto) Absolute Nucleated RBC Nucleated RBC % (auto) PT INR Sodium Potassium Chloride Carbon Dioxide Anion Gap BUN Creatinine Estim Creat Clear Calc Estimated GFR POC Glucose 153 H Random Glucose Calcium Magnesium Total Bilirubin Direct Bilirubin AST ALT Alkaline Phosphatase Troponin I High Sens B-Natriuretic Peptide Total Protein Albumin Influenza Type A (PCR) Influenza Type B (PCR) RSV RNA Qual (PCR) SARS-CoV-2 RNA (RT-PCR) Discharge Plan Discharge Anticipated Discharge Date/Time: 06/02/22 10:28 Patient Disposition: Home, Self-Care Discharge Diagnosis: permanent AFIB with RVR Referrals: Lonnie Khan MD [Primary Care Provider] - 1 Week Discharge Medications: Continued (DME) Extra depth orthopedic shoes (1 pair) with customized heat molded multidensity innersoles (3 pair) See Rx Instructions .Route .MEDSUPPLY Qty: 1 0RF Rx Instructions: As directed (DME) syringe with needle 3 mL 27 gauge x 1 1/4 syringe See Rx Instructions .Route Qty: 6 1RF Rx Instructions: As directed once a month (for Vitamin B12 injections) loratadine 10 mg tablet 10 mg PO DAILY 90 Days Qty: 90 3RF Rx Instructions: Take 1 tablet by mouth daily ferrous sulfate 325 mg (65 mg iron) tablet 325 mg PO DAILY Qty: 90 1RF hydralazine 25 mg tablet 25 mg PO TID 90 Days Qty: 270 3RF Protocol: Hold for SBP< HOLD for SBP < : 90 insulin lispro 100 unit/mL insulin pen 2 - 10 unit subcut QID B complex with C 20-folic acid 1 mg Capsule 1 cap PO DAILY (DME) TRANSPORT WHEELCHAIR See Rx Instructions .Route .MEDSUPPLY Qty: 1 0RF Rx Instructions: [place] [place] Kit See Rx Instructions .Route Qty: 1 0RF Rx Instructions: As directed (DME) blood-glucose meter [FreeStyle Lite Meter] Kit See Rx Instructions .Route Qty: 1 0RF Rx Instructions: As directed 3-4 times a day Discontinued diltiazem HCl 180 mg capsule,extended release 24hr 1 cap PO DAILY No Action Eliquis 5 mg tablet 5 mg PO BID 90 Days Qty: 180 0RF [place] [place] FreeStyle L[place] Strips Strip See Rx Instructions .ROUTE .MEDSUPPLY Qty: 300 3RF Rx Instructions: check bs 3-4X/DAY [place] [place] [FreeStyle Lite Meter] Kit See Rx Instructions .Route Qty: 1 0RF Rx Instructions: As directed levothyroxine 25 mcg tablet 25 mcg PO DAILY@0600 Qty: 90 0RF montelukast 10 mg tablet 10 mg PO BEDTIME Qty: 90 0RF atorvastatin 40 mg tablet 40 mg PO BEDTIME Qty: 90 0RF cyanocobalamin (vitamin B-12) 1,000 mcg/mL solution 1,000 mcg IM Q4W Qty: 3 1RF docusate sodium 100 mg tablet 100 mg PO BID 30 Days Qty: 60 5RF Multaq 400 mg tablet 400 mg PO BID Qty: 60 3RF Rx Instructions: must administer with a meal/food insulin glargine [Lantus Solostar U-100 Insulin] 100 unit/mL (3 mL) insulin pen 8 unit subcut BEDTIME 90 Days Qty: 7.2 3RF insulin lispro 100 unit/mL insulin pen 2 - 10 unit subcut QID Qty: 15 3RF Advair HFA 115-21 mcg/actuation HFA aerosol inhaler 2 puff inhalation Q12H 30 Days Qty: 12 11RF lidocaine 5 % adhesive patch,medicated 1 patch TOPICAL DAILY 30 Days Qty: 30 5RF Rx Instructions: leave on most painful area for up to 12 hrs metoprolol tartrate 25 mg tablet 25 mg PO BID Qty: 60 5RF Protocol: Hold for SBP/HR < HOLD for SBP < : 90 HOLD for HR < : 60 (DME) lancets [FreeStyle Lancets] 28 gauge misc See Rx Instructions .ROUTE .MEDSUPPLY Qty: 100 12RF Rx Instructions: check BS 3x/day (DME) DIGITAL SCALE See Rx Instructions .Route .MEDSUPPLY Qty: 1 0RF Rx Instructions: As directed pantoprazole 40 mg tablet,delayed release (DR/EC) 40 mg PO DAILY@0630 30 Days Qty: 30 5RF sevelamer carbonate 800 mg tablet 800 mg PO TID 30 Days Qty: 90 5RF Rx Instructions: must administer with a meal/food (DME) pen needle, diabetic [BD Sandra 2nd Gen Pen Needle] 32 gauge x 5/32 needle See Rx Instructions .Route Qty: 50 0RF Rx Instructions: As directed gabapentin 100 mg capsule 100 mg PO BID 30 Days Qty: 60 1RF albuterol sulfate 90 mcg/actuation HFA aerosol inhaler 2 inh inhalation Q6H PRN (Reason: shortness of breath or wheezing) 30 Days Qty: 18 12RF Discharge Orders: Discharge Order (Routine); Ordered 06/02/22 Ordered By: Praful Cee Diet: Diabetic diet Activity on Discharge: As tolerated Stand Alone Forms: Patient Portal Discharge page Care Plan Goals: Control of atrial fibrilation Health Concerns: Atrial fibrilation Plan of Treatment: take metoprolol as directed Take Multaq as directed (next dose tomorrow morning) stop taking cardizem continue all other medications Follow up with your doctor in a week, call for appointment Go to dialysis as sual Tell your doctor to get ECG every 3 months Assessment: as above Discharge Date/Time: 06/02/22 21:15
--- NOTE | 2022-06-02 11:21 | MHC.CM.PN ---
Addendum entered by Chiara De Paz 06/02/22 15:53: PT CLEARED TO DC TODAY, HOME WITH RESUMPTION OF [employer]HW[employer] SERVICES CM CALLED PTS SON/HIGHWAY SAFETY ENGINEER, ELIO [phone] AND INFORMED HIM OF PENDING DC HE REPORTS HE WILL BE THERE WHEN SHE ARRIVES [facility] TRANSPORT ARRANGED FOR 1700 HOURS [email or web address] Original Note: PT REPORTS HER SON, WHO LIVES NEXT DOOR, IS HER FT HIGHWAY SAFETY ENGINEER. 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
--- NOTE | 2022-06-02 11:29 | P.CONCA_ITS ---
History of Present Illness History of Present Illness Date of Service: 06/02/22 Requesting physician: Praful Cee Consult reason: atrial fibrillation Chief complaint: AFIB w/ RVR Narrative: I was consulted to see Carolina in cardiology consultation today for recurrent atrial fibrillation leading to hospitalization. History was obtained with help of a iuss master analyst. Patient with past medical history of paroxysmal atrial fibrillation on oral anticoagulation therapy with Eliquis, patient says she had a stroke 2 months ago. She has history of when she renal disease, on dialysis. She also has history of diabetes, hypertension, hyperlipidemia. Patient was referred here from the dialysis unit after she was noted to have tachy cardia on monitoring and dialysis center. Subsequently noted to have atrial fibrillation with rapid ventricular response which is difficult control. She was eventually started on IV Cardizem drip in the emergency room. Patient has no symptoms whatsoever related to it. She had a Holter monitor yesterday hooked up, she said this is because the stroke. She denies any chest pain, palpitations, shortness of breath. Overnight converted to sinus rhythm last night at 21:00. She denies any current symptoms. Says that she does not move much because of her fall in the past injury to her right leg and right arm. Review of Systems Constitutional: Constitutional: Reports no additional constitutional complaints Eyes: Eyes: Reports no additional eye complaints Cardiovascular: Cardiovascular: Reports no additional cardiovascular complaints Respiratory: Respiratory: Reports no additional respiratory complaints Gastrointestinal: Gastrointestinal: Reports no additional gastrointestinal complaints Genitourinary: Genitourinary: Reports no additional female genitourinary complaints Musculoskeletal: Musculoskeletal: Reports abnormal gait and Reports muscle weakness Integumentary/Breasts: Skin/Breast: Reports system reviewed and no additional complaints, except as docu Neurologic: Reports system reviewed and no additional complaints, except as documented and Reports abnormal gait Psychiatric: Psychiatric: Reports no additional psychiatric complaints Endocrine: Endocrine: Reports no additional endocrine complaints [facility] Past Medical History Medical History Acute pericardial effusion Anemia Benign essential hypertension CAD (coronary artery disease) Chronic kidney disease, stage 4 (severe) Dyspnea ESRD (end stage renal disease) ESRD on dialysis Fluid overload GERD (gastroesophageal reflux disease) Hemodialysis patient HLD (hyperlipidemia) Hypertension Hypothyroidism Iron deficiency Nephrotic range proteinuria Obesity (BMI 30-39.9) Osteoarthritis PAF (paroxysmal atrial fibrillation) Paroxysmal atrial fibrillation Pernicious anemia Pure hypercholesterolemia Toe amputee Type 2 diabetes mellitus Surgical History Surgical History Hx of appendectomy S/P arteriovenous (AV) fistula creation Social History Social History Household Members: Other Household Members Other:: [facility] Housing: Assisted Living Facility Do you presently have visiting nurse or other home services: Yes Alcohol intake: never Patient Tobacco Use Status: Never used Tobacco Smoked in Last 30 Days: No e-Cigarette/Vaping Use: Never Used Patient Interested in Nicotine Replacement: No Patient Given Instructions on How to Stop Smoking: No Second Hand Smoke Exposure: No Use of substances other than those prescribed or required for medical reasons: No Currently Displaying Signs/Symptoms of Drug Intoxication Withdrawal: No Any prior treatment program specific to substance use: No Have you been hit, kicked, punched, or otherwise hurt by someone within the past year? If so, by whom?: No Do you feel safe in your current relationship?: No Is there a partner from a previous relationship who is making you feel unsafe now?: No Are you made to feel afraid or neglected: No Advance Directives: No Advance Directives Information Provided: No Advance Directives Date on File: 04/10/22 Do you have thoughts of harming others: None Do you have a plan to hurt others: No Plan Recently lost weight without trying: No Patient : No : No Poor oral hygiene: No service: No Current occupational status: retired Cognitive needs: Yes Hearing needs: No Vision needs: No Meds Allergies Allergy/AdvReac Type Severity Reaction Status Date / Time No Known Allergies Allergy Verified 05/27/22 13:05 Active Medications: Current Medications Acetaminophen (Acetaminophen 325 Mg Tablet) 650 mg PO Q6H PRN PRN Reason: Pain, Mild (Pain Scale 1-3) Apixaban (Apixaban 5 Mg Tablet) 5 mg PO BID MARKIE Last Admin: 06/02/22 08:57 Dose: 5 mg Atorvastatin Calcium (Atorvastatin Calcium 40 Mg Tablet) 40 mg PO BEDTIME MARKIE Cyanocobalamin (Cyanocobalamin (Vitamin B-12) 1,000 Mcg/Ml Vial) mcg IM Q4W MARKIE Docusate Sodium (Docusate Sodium 100 Mg Capsule) 100 mg PO BID COUNTS INCLUDE 234 BEDS AT THE [facility] Ferrous Sulfate (Ferrous Sulfate 324 Mg Tablet.) 324 mg PO DAILY COUNTS INCLUDE 234 BEDS AT THE [facility] Gabapentin (Gabapentin 100 Mg Capsule) 100 mg PO BEDTIME COUNTS INCLUDE 234 BEDS AT THE [facility] Hydralazine HCl (Hydralazine Hcl 25 Mg Tablet) 25 mg PO TID COUNTS INCLUDE 234 BEDS AT THE [facility]; Protocol Diltiazem HCl 125 mg/ Sodium (Chloride) 125 mls @ 0 mls/hr IVCONT .Q0M COUNTS INCLUDE 234 BEDS AT THE [facility]; Protocol Last Titration: 06/01/22 21:32 Dose: 0 mg/hr, 0 mls/hr Insulin Glargine (Insulin Glargine,Hum.Rec.Anlog 100 Unit/Ml 10 Ml Vial) 8 unit SUBCUT BEDTIME COUNTS INCLUDE 234 BEDS AT THE [facility] Insulin Human Lispro (Insulin Lispro 100 Unit/Ml 3 Ml Vial) 0 unit SUBCUT QIDACHS COUNTS INCLUDE 234 BEDS AT THE [facility]; Protocol Last Admin: 06/02/22 08:57 Dose: 2 unit Levothyroxine Sodium (Levothyroxine Sodium 25 Mcg Tablet) 25 mcg PO DAILY@0600 COUNTS INCLUDE 234 BEDS AT THE [facility] Lidocaine (Lidocaine 4 % Patch Adh..Patch) 1 patch TRANSDERMA DAILY COUNTS INCLUDE 234 BEDS AT THE [facility] Loratadine (Loratadine 10 Mg Tablet) 10 mg PO DAILY COUNTS INCLUDE 234 BEDS AT THE [facility] Magnesium Hydroxide (Milk Of Magnesia 30 Ml Oral.Susp) 30 ml PO DAILY PRN PRN Reason: Constipation Melatonin (Melatonin 3 Mg Tablet) 6 mg PO BEDTIME PRN PRN Reason: Insomnia Metoprolol Tartrate (Metoprolol Tartrate 25 Mg Tablet) 25 mg PO BID COUNTS INCLUDE 234 BEDS AT THE [facility]; Protocol Last Admin: 06/02/22 08:57 Dose: 25 mg Montelukast Sodium (Montelukast Sodium 10 Mg Tablet) 10 mg PO BEDTIME COUNTS INCLUDE 234 BEDS AT THE [facility] Multivitamins/Vitamin C (Multivitamin Tablet) 1 tab PO DAILY COUNTS INCLUDE 234 BEDS AT [facility] Omeprazole (Omeprazole 20 Mg Capsule.) 20 mg PO DAILY@0630 COUNTS INCLUDE 234 BEDS AT THE [facility] Ondansetron HCl (Ondansetron Hcl 4 Mg/2 Ml Vial) 4 mg IVPUSH Q8H PRN PRN Reason: Nausea and Vomiting Sevelamer Carbonate (Sevelamer Carbonate Tablet 800 Mg Tablet) 800 mg PO TID COUNTS INCLUDE 234 BEDS AT THE [facility] Sodium Chloride (0.9 % Sodium Chloride Flush 3 Ml Syringe) 3 ml IVFLUSH QSHIFT COUNTS INCLUDE 234 BEDS AT THE [facility] Last Admin: 06/02/22 09:01 Dose: 3 ml Temazepam (Temazepam 15 Mg Capsule) 15 mg PO BEDTIME PRN PRN Reason: Insomnia Home Medications Medication Instructions Recorded Confirmed Last Taken Type docusate sodium 100 mg tablet 100 mg PO BID 04/09/22 06/02/22 Unknown History gabapentin 100 mg capsule 100 mg PO BEDTIME 04/09/22 06/02/22 Unknown History lidocaine 5 % topical patch 1 patch topical DAILY 04/09/22 06/02/22 Unknown History pantoprazole 40 mg tablet,delayed 40 mg PO DAILY@0630 04/09/22 06/02/22 06/01/22 History release sevelamer carbonate 800 mg tablet 800 mg PO TID 04/09/22 06/02/22 Unknown History vitamin B complex and vitamin C 1 cap PO DAILY 04/09/22 06/02/22 Unknown History no.20-folic acid 1 mg capsule insulin lispro 100 unit/mL 2 - 10 unit subcut QID 04/15/22 06/02/22 Unknown History subcutaneous pen cyanocobalamin (vitamin B-12) 1 ml IM Q4W 06/01/22 06/02/22 Unknown History 1,000 mcg/mL injection solution diltiazem HCl 180 mg 1 cap PO DAILY 06/01/22 06/02/22 Unknown History capsule,extended release 24 hr insulin glargine 100 unit/mL (3 8 unit subcut BEDTIME 06/01/22 06/02/22 Unknown History mL) subcutaneous pen (Lantus Solostar U-100 Insulin) Physical Exam Vital Signs: Vital Signs: Last Vital Signs Temp 97.2 F 06/02/22 07:12 Pulse 84 06/02/22 07:12 Resp 18 06/02/22 07:12 BP 134/62 06/02/22 07:12 Pulse Ox 96 06/02/22 07:12 O2 Del Method 06/02/22 03:46 O2 Flow Rate 2 06/01/22 20:49 Oxygen Flow Rate 2 06/01/22 15:53 BMI result Body Mass Index 36.3 Const: General: cooperative, comfortable, no acute distress, alert and awake Nutritional Appearance: overweight Orientation/consciousness: patient oriented x3 HEENT: Head: Yes normocephalic and Yes atraumatic Neck: Neck: Yes trachea midline, Yes supple and Yes no JVD Resp: Effort & Inspection: decreased respiratory effort Auscultation: crackles (Coarse) bilateral at the base GI: Auscultation: normal bowel sounds Skin: General skin exam: no rashes or lesions noted and ecchymosis Neuro: General: patient oriented x3 and no focal motor deficits Extrem: General: Yes no clubbing, cyanosis or edema Objective Labs and Meds Result diagrams: 06/01/22 16:24 06/01/22 16:36 Lab results: Laboratory Results - last 24 hr 06/01/22 06/01/22 06/01/22 15:54 16:24 16:24 WBC 8.3 RBC 3.21 L D Hgb 10.0 L D Hct 30.9 L D MCV 96.3 MCH 31.2 MCHC 32.4 RDW 15.5 Plt Count 190 MPV 9.6 Immature Gran % (Auto) 0.2 Neut % (Auto) 78.8 H Lymph % (Auto) 10.0 L Webster % (Auto) 5.1 Eos % (Auto) 5.3 H Baso % (Auto) 0.6 Lymph # (Auto) 0.8 L Webster # (Auto) 0.4 Eos # (Auto) 0.4 Baso # (Auto) 0.1 Abs Immat Gran (auto) 0.02 Absolute Neuts (auto) 6.5 Absolute Nucleated RBC 0.000 Nucleated RBC % (auto) 0.0 PT INR Sodium Potassium Chloride Carbon Dioxide Anion Gap BUN Creatinine Estim Creat Clear Calc Estimated GFR POC Glucose 173 H Random Glucose Calcium Magnesium Total Bilirubin Direct Bilirubin AST ALT Alkaline Phosphatase Troponin I High Sens B-Natriuretic Peptide Total Protein Albumin Influenza Type A (PCR) NEGATIVE Influenza Type B (PCR) NEGATIVE RSV RNA Qual (PCR) NEGATIVE SARS-CoV-2 RNA (RT-PCR) NEGATIVE 06/01/22 06/01/22 06/01/22 16:35 16:35 16:36 WBC RBC Hgb Hct MCV MCH MCHC RDW Plt Count MPV Immature Gran % (Auto) Neut % (Auto) Lymph % (Auto) Webster % (Auto) Eos % (Auto) Baso % (Auto) Lymph # (Auto) Webster # (Auto) Eos # (Auto) Baso # (Auto) Abs Immat Gran (auto) Absolute Neuts (auto) Absolute Nucleated RBC Nucleated RBC % (auto) PT 16.6 H INR 1.4 H Sodium 135 Potassium 3.4 Chloride 95 L Carbon Dioxide 27 Anion Gap 16 BUN 15 Creatinine 1.99 H Estim Creat Clear Calc 23.9 Estimated GFR 24 POC Glucose Random Glucose 199 H Calcium 8.3 L Magnesium 1.7 Total Bilirubin 0.7 Direct Bilirubin 0.2 AST 17 ALT 8 Alkaline Phosphatase 121 H Troponin I High Sens 43.3 H B-Natriuretic Peptide Total Protein 6.5 Albumin 3.6 Influenza Type A (PCR) Influenza Type B (PCR) RSV RNA Qual (PCR) SARS-CoV-2 RNA (RT-PCR) 06/01/22 06/01/22 06/01/22 16:36 19:10 21:01 WBC RBC Hgb Hct MCV MCH MCHC RDW Plt Count MPV Immature Gran % (Auto) Neut % (Auto) Lymph % (Auto) Webster % (Auto) Eos % (Auto) Baso % (Auto) Lymph # (Auto) Webster # (Auto) Eos # (Auto) Baso # (Auto) Abs Immat Gran (auto) Absolute Neuts (auto) Absolute Nucleated RBC Nucleated RBC % (auto) PT INR Sodium Potassium Chloride Carbon Dioxide Anion Gap BUN Creatinine Estim Creat Clear Calc Estimated GFR POC Glucose 213 H Random Glucose Calcium Magnesium Total Bilirubin Direct Bilirubin AST ALT Alkaline Phosphatase Troponin I High Sens 229.6 H* D B-Natriuretic Peptide 1302 H Total Protein Albumin Influenza Type A (PCR) Influenza Type B (PCR) RSV RNA Qual (PCR) SARS-CoV-2 RNA (RT-PCR) 06/02/22 07:16 WBC RBC Hgb Hct MCV MCH MCHC RDW Plt Count MPV Immature Gran % (Auto) Neut % (Auto) Lymph % (Auto) Webster % (Auto) Eos % (Auto) Baso % (Auto) Lymph # (Auto) Webster # (Auto) Eos # (Auto) Baso # (Auto) Abs Immat Gran (auto) Absolute Neuts (auto) Absolute Nucleated RBC Nucleated RBC % (auto) PT INR Sodium Potassium Chloride Carbon Dioxide Anion Gap BUN Creatinine Estim Creat Clear Calc Estimated GFR POC Glucose 153 H Random Glucose Calcium Magnesium Total Bilirubin Direct Bilirubin AST ALT Alkaline Phosphatase Troponin I High Sens B-Natriuretic Peptide Total Protein Albumin Influenza Type A (PCR) Influenza Type B (PCR) RSV RNA Qual (PCR) SARS-CoV-2 RNA (RT-PCR) Imaging Radiologist's impression: Impressions Chest X-Ray 06/01/22 16:20 IMPRESSION: No acute disease. Assessment and Plan (1) PAF (paroxysmal atrial fibrillation): Status: Acute Paroxysmal atrial fibrillation noted incidentally while dialysis session. Patient had no symptoms related to it. However this has led to hospitalization. Will require rhythm control. Her LV ejection fraction was normal with last echocardiogram last year. Start Multaq 400 mg b.i.d.. Please monitor her EKG. Patient can be discharged home. 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 Continue full oral anticoagulation, currently on Eliquis 5 mg b.i.d. for stroke prevention, this absolutely necessary to reduce recurrent stroke, high risk for recurrent thromboembolic events. Will sign of the case. Thank you for allowing me to partake in her care Time Spent With Patient Time: Total time managing care of this patient today ____ minutes. Procedures Date of Service Date of Service: 06/02/22
[2022-06-02] MEDS: Multivitamin TABLET 1 TAB PO (11:34)
[2022-06-02] MEDS: Levothyroxine Sodium 25 MCG TABLET PO (11:35)
[2022-06-02] MEDS: Docusate Sodium 100 MG CAPSULE PO ×2 (11:35→20:47)
[2022-06-02] MEDS: Ferrous Sulfate 324 MG TABLET.DR PO (11:35)
[2022-06-02] MEDS: Loratadine 10 MG TABLET PO (11:35)
[2022-06-02] MEDS: Lidocaine 4 % Patch ADH..PATCH 1 PATCH TRANSDERMA (11:40)
[2022-06-02 11:51] LABS: Glucose, Whole Blood 227 mg/dL (60-115)
[2022-06-02 12:00] VITALS: BP 130/77; PULSE 88; RESP 17; TEMP 36.6; O2SAT 98
[2022-06-02] MEDS: Milk of Magnesia 30 ML ORAL.SUSP PO (13:34)
[2022-06-02] MEDS: Dronedarone HCl 400 MG TABLET PO (16:29)
[2022-06-02] MEDS: Montelukast Sodium 10 MG TABLET PO (20:47)
[2022-06-02] MEDS: Gabapentin 100 MG CAPSULE PO (20:47)
[2022-06-02] MEDS: Sevelamer Carbonate Tablet 800 MG TABLET PO (20:47)
[2022-06-02] MEDS: hydrALAZINE HCl 25 MG TABLET PO (20:47)
[2022-06-02] MEDS: Atorvastatin Calcium 40 MG TABLET PO (20:47)
[2022-06-02 20:56] LABS: Glucose, Whole Blood 193 mg/dL (60-115)
[2022-06-02] MEDS: Insulin Glargine,Hum.rec.anlog 100 UNIT/ML 10 ML VIAL 8 UNIT SUBCUT (20:58)
== END 2022-06-02 21:15 | disposition home or self-care (01) | DRG 308 ==
LOC: HO.ED 17:30 → HO.EDOVER 18:34 → HO.IMC 19:09
PROVIDERS: Physician Assistant; Admitting Provider Internal Medicine; Emergency Provider Emergency Medicine; PCP Internal Medicine; Visit Provider Internal Medicine
DX: I48.0 Paroxysmal atrial fibrillation (principal); N18.6 End stage renal disease; E87.1 Hypo-osmolality and hyponatremia; I12.0 Hypertensive chronic kidney disease with stage 5 chronic kidney disease or end stage renal disease; E11.22 Type 2 diabetes mellitus with diabetic chronic kidney disease; E03.9 Hypothyroidism, unspecified; Z99.2 Dependence on renal dialysis; Z20.822 Contact with and (suspected) exposure to COVID-19; Z79.4 Long term (current) use of insulin; Z79.01 Long term (current) use of anticoagulants; Z79.890 Hormone replacement therapy; Z79.899 Other long term (current) drug therapy
CPT/HCPCS: 0241U; 36415; 71045; 80048; 80076; 82947; 83735; 83880; 84484; 85025; 85610; 93005; 99285

== ENCOUNTER 2022-06-07 10:04 | Outpatient (REF) | payer OTHER, SELFPAY ==
--- NOTE | ~2022-06-07 | MM_ITS ---
EXAMINATION: BONE DENSITOMETRY CLINICAL INDICATION: Asymptomatic menopausal state. COMPARISON: None (current study represents initial baseline exam). TECHNIQUE: Using a Secret DXA System (software version: 13.1) manufactured by [employer], dual-energy x-ray absorptiometry was performed of the lumbar spine and left hip. The images are of good technical quality. Summary results are attached. FINDINGS: AP SPINE L1-L4: BMD 1.383 g/cm2, Z-score 2.9, T-score 1.7, normal. LEFT FEMUR, NECK: BMD 0.833 g/cm2, Z-score 0.1, T-score -1.5, osteopenia. LEFT FEMUR, TOTAL: BMD 1.006 g/cm2, Z-score 1.3, T-score 0.0, normal. IDENTIFIED RISK FACTORS: History of fracture (adult), hyperparathyroid, low calcium intake, menopause, osteoporosis, recurrent falls, renal, secondary osteoporosis. HISTORY OF FRACTURE: Humerus. MEDICATIONS: Vitamin D. MM/XR DEXA axial skeleton IMPRESSION: 1. DIAGNOSIS: Osteopenia based on the lowest T-score value of -1.5 in the femoral neck applying World Health Organization criteria. 2. 10-YEAR FRACTURE RISK PREDICTION, FRAX: Major osteoporotic fracture (clinical spine, forearm, hip or shoulder) 8.9%. Hip fracture 1.5%. 3. Treatment Recommendations: NOF guidelines recommend consideration for treatment in postmenopausal women and men age 50 and older presenting with the following: -A hip or vertebral (clinical or morphometric) fracture. -T-score less than or equal to -2.5 at the femoral neck or spine after appropriate evaluation to exclude secondary causes. -Low bone mass at the hip or spine and a 10-year fracture probability by FRAX of greater than or equal to 3% for hip fracture or greater than or equal to 20% for major osteoporotic fracture based on the [place] adapted WHO algorithm. 4. Other Recommendations: All treatment decisions require clinical judgment and consideration of individual patient factors, including patient preferences, comorbidities, previous drug use, risk factors not captured in the FRAX model (e.g. frailty, falls, vitamin D deficiency, increased bone turnover, interval significant decline in bone density) and possible under or overestimation of fracture risk by FRAX. Additional medical evaluation for secondary cause of low bone mineral density may be appropriate. FUTURE SCAN RECOMMENDATION: People with diagnosed cases of osteoporosis or at high risk for fracture should have regular bone mineral density tests. For patients eligible for Medicare, routine testing is allowed once every 2 years. The testing frequency can be increased to one year for patients who have rapidly progressing disease, those who are receiving or discontinuing medical therapy to restore bone mass, or have additional risk factors.
== END 2022-06-07 10:05 | disposition home or self-care (01) ==
LOC: HO.MAMMO 10:04
PROVIDERS: PCP Internal Medicine; Visit Provider Obstetrics & Gynecology
DX: Z13.820 Encounter for screening for osteoporosis (principal); Z78.0 Asymptomatic menopausal state
CPT/HCPCS: 77080

== ENCOUNTER → 2022-06-10 13:43 | Outpatient (BNVA) | payer OTHER, SELFPAY | PROVIDERS: PCP Internal Medicine; Visit Provider Hospitalist | DX: Z01.811 Encounter for preprocedural respiratory examination (principal); R06.00 Dyspnea, unspecified; J90 Pleural effusion, not elsewhere classified; J44.9 Chronic obstructive pulmonary disease, unspecified | CPT/HCPCS: 94618; 99212 ==

== ENCOUNTER → 2022-06-26 12:34 | Outpatient (BNVA) | payer OTHER, SELFPAY | PROVIDERS: Visit Provider Obstetrics & Gynecology | DX: M85.80 Other specified disorders of bone density and structure, unspecified site (principal) | CPT/HCPCS: 99212 ==

== ENCOUNTER 2022-07-04 | Outpatient (REF) | payer OTHER, SELFPAY ==
[2022-07-04 13:32] LABS: CDiff Gene PCR NEGATIVE (Negative)
== END 2022-07-04 00:01 | disposition home or self-care (01) ==
LOC: HO.LNP
PROVIDERS: Visit Provider Internal Medicine
DX: R19.7 Diarrhea, unspecified (principal)
CPT/HCPCS: 36415; 87493

== ENCOUNTER 2022-07-19 10:44 | Inpatient (IN) | payer OTHER, SELFPAY ==
--- NOTE | ~2022-07-19 | CT_ITS ---
EXAMINATION: NONCONTRAST HEAD CT NONCONTRAST MAXILLOFACIAL CT NONCONTRAST CERVICAL SPINE CT INDICATION INFORMATION: Fall. Head injury. On Eliquis. COMPARISON: 03/17/2022 TECHNIQUE: Separate noncontrast CT examinations of the head, maxillofacial bones, and cervical spine were performed. Coronal and sagittal images were created for each examination at the technologist workstation. This CT examination was performed using dose optimization techniques as appropriate, variously including the following: *Automated exposure control *Adjustment of mA and/or kV according to patient size (this includes techniques or standardized protocols for targeted exams where dose is matched to indication/reason for exam; i.e. extremities or head) *Use of iterative reconstruction technique DLP: 1418 mGy-cm FINDINGS: Head: There is no evidence of acute intracranial hemorrhage or territorial infarction. No abnormal mass effect or midline shift is seen. [place] to white matter differentiation is well preserved. No extra-axial fluid collections are identified. No hydrocephalus. Proportional prominence of the ventricles and sulcal spaces is consistent with moderate volume loss. There is some residual calcification noted in the region of the right basal ganglia at the site of the prior hemorrhage. Chronic right frontal infarct with ex vacuo dilatation of the frontal horn of the right lateral ventricle. There is minimal right frontal soft tissue swelling in the supraorbital region. No calvarial fracture. The mastoid air cells are well aerated. Maxillofacial: No acute maxillofacial fractures are seen. The pterygoid plates are intact. The lamina papyracea are intact. The zygomatic arches are intact. The nasal bone is intact. The orbital rims are intact. The mandible is intact. Minimal opacification of the right maxillary sinus. Remaining paranasal sinuses are well aerated.. The uncinate process is normal bilaterally. The infundibula and middle meati are patent. The nasal septum deviated to the left. The mandibular heads are well-seated in the condylar fossa. The orbits demonstrate a normal appearance bilaterally. The globes are intact, and there are no suspicious findings to suggest retrobulbar hemorrhage. Cervical spine: There is anatomic alignment of the vertebral bodies and posterior elements. The atlantoaxial and atlantooccipital articulations are intact. Vertebral body heights are maintained. There is multilevel intervertebral disc space narrowing with endplate osteophyte formation and facet arthropathy. No evidence of acute fracture. No prevertebral soft tissue swelling. Visualized portions of the lung apices are unremarkable. Small calcification in the left thyroid lobe. Possible 0.4 cm left lobe hypoattenuating nodule. No follow-up recommended.. CT/CT cervical spine wo IV con IMPRESSION: 1. No acute intracranial finding. Chronic changes. 2. No acute maxillofacial fracture. 3. No acute fracture or malalignment of the cervical spine. Mild degenerative change.
--- NOTE | ~2022-07-19 | XR_ITS ---
EXAMINATION: XR HUMERUS RIGHT XR SHOULDER RIGHT CLINICAL INFORMATION: History of fall, pain, bruising. Decreased range of motion. COMPARISON: Chest radiograph from 06/01/2022 TECHNIQUE: Right shoulder, 4 views Right humerus, 2 views FINDINGS: Right shoulder: No evidence of loosening of the humeral fixation hardware. The lateral fixation plate and screws remain in stable position compared to 06/01/2022, status post open reduction and internal fixation of comminuted proximal humeral fracture. The residual fracture line in the medial humeral neck is not significantly displaced. A few old ossific fragments project superolateral to the humeral head -- likely greater tuberosity fragments. The subacromial space is chronically mildly narrowed. No acute fractures at the shoulder. Osteophytes are noted at the mildly degenerated glenohumeral joint. The clavicle is intact and alignment is normal at the mildly degenerated acromioclavicular joint. Right humerus: No evidence of any acute humeral fracture. Bones have normal alignment at the elbow. XR/XR humerus RT IMPRESSION: * No evidence of loosening of humeral fixation hardware, status post open reduction and internal fixation of comminuted proximal humeral fracture. * The chronic mild narrowing of the subacromial space suggests likelihood of chronic rotator cuff tear. * No new osseous injury.
--- NOTE | ~2022-07-19 | XR_ITS ---
EXAMINATION: XR HUMERUS RIGHT XR SHOULDER RIGHT CLINICAL INFORMATION: History of fall, pain, bruising. Decreased range of motion. COMPARISON: Chest radiograph from 06/01/2022 TECHNIQUE: Right shoulder, 4 views Right humerus, 2 views FINDINGS: Right shoulder: No evidence of loosening of the humeral fixation hardware. The lateral fixation plate and screws remain in stable position compared to 06/01/2022, status post open reduction and internal fixation of comminuted proximal humeral fracture. The residual fracture line in the medial humeral neck is not significantly displaced. A few old ossific fragments project superolateral to the humeral head -- likely greater tuberosity fragments. The subacromial space is chronically mildly narrowed. No acute fractures at the shoulder. Osteophytes are noted at the mildly degenerated glenohumeral joint. The clavicle is intact and alignment is normal at the mildly degenerated acromioclavicular joint. Right humerus: No evidence of any acute humeral fracture. Bones have normal alignment at the elbow. XR/XR shoulder RT min 2V IMPRESSION: * No evidence of loosening of humeral fixation hardware, status post open reduction and internal fixation of comminuted proximal humeral fracture. * The chronic mild narrowing of the subacromial space suggests likelihood of chronic rotator cuff tear. * No new osseous injury.
--- NOTE | ~2022-07-19 | CT_ITS ---
EXAMINATION: CT ABDOMEN AND PELVIS WITHOUT CONTRAST CLINICAL INFORMATION: Lack stool. Diarrhea. Left lower quadrant abdominal pain. COMPARISON: 05/02/2021 TECHNIQUE: Multidetector volumetric imaging was performed from the superior aspect of the liver through the pubic symphysis. Sagittal and coronal reformatted images were obtained on the technologist's workstation. This CT examination was performed using dose optimization techniques as appropriate, variously including the following: *Automated exposure control *Adjustment of mA and/or kV according to patient size (this includes techniques or standardized protocols for targeted exams where dose is matched to indication/reason for exam; i.e. extremities or head) *Use of iterative reconstruction technique DLP: 796 mGy-cm FINDINGS: LUNG BASES: Tiny left pleural effusion. Prominent heart. Central catheter in the right atrium. LIVER, GALLBLADDER, AND BILIARY TREE: The liver is normal in size, shape, and attenuation. No focal hepatic lesion or biliary ductal dilatation is present. Small stones in the gallbladder lumen. No wall thickening or adjacent inflammation. PANCREAS: Unremarkable. SPLEEN: Unremarkable. ADRENAL GLANDS: Unremarkable. KIDNEYS AND URETERS: The kidneys are normal in size, shape, and attenuation. No hydronephrosis, hydroureter, or calculi seen. Symmetric perinephric stranding. BLADDER: Unremarkable. GASTROINTESTINAL TRACT: The stomach is unremarkable. Normal caliber small bowel. No obstruction. Mild diffuse colonic stool burden. No colonic wall thickening or inflammation. No free air or free fluid. The appendix is not definitively seen. No inflammation at the cecum. ABDOMINAL WALL: No significant hernia is appreciated. Mild anasarca. LYMPH NODES: Normal. VASCULAR: Normal caliber aorta with mild to moderate atherosclerotic calcifications. Peripheral vascular calcifications are prominent. PELVIC VISCERA: The uterus and adnexa are unremarkable. OSSEOUS STRUCTURES: No acute or suspicious osseous abnormality. Degenerative changes throughout the spine. CT/CT abdomen pelvis wo IV con IMPRESSION: 1. No acute findings in the abdomen or pelvis. No inflammatory changes. Mild diffuse colonic stool burden. 2. Cholelithiasis without evidence of acute cholecystitis. 3. Tiny left pleural effusion. Fleischner guidelines were followed.
[2022-07-19 10:53] VITALS: BP 115/94; BP 128/76; PULSE 65; PULSE 68; RESP 20; TEMP 36.6; O2SAT 96; BMI 35.2
--- NOTE | 2022-07-19 10:58 | ECG_ITS ---
Test Reason : FALL Blood Pressure : / mmHG Vent. Rate : 061 BPM Atrial Rate : 061 BPM P-R Int : 218 ms QRS Dur : 080 ms QT Int : 448 ms P-R-T Axes : 044 056 241 degrees QTc Int : 450 ms Sinus rhythm with sinus arrhythmia with 1st degree A-V block Nonspecific T wave abnormality Abnormal ECG When compared with ECG of 02-JUN-2022 11:29, SD interval has increased Vent. rate has decreased BY 43 BPM Nonspecific T wave abnormality, worse in Lateral leads Referred By: Mgagy Peterson Electronically Signed By:BETY NIÑO
--- NOTE | 2022-07-19 11:18 | ED.FALL ---
HPI - Fall General Chief Complaint: Fall Stated Complaint: Fall(2 days ago), poss head injury per EMS Time Seen by Provider: 07/19/22 10:46 Source: patient Mode of arrival: EMS Limitations: language barrier (Ivorian-speaking senior medical billing specialist utilized) History of Present Illness HPI Narrative: Patient is a 76 old female who presents to the emergency department via EMS. She reports a mechanical fall yesterday. She states she was getting out of bed, she was using her walker in the wheel seem to have gotten stuck resulting in the walker tipping forward in her falling forward. She fell striking her head on an oxygen tank and striking her left arm into the tank as well. She used her Life Alert bracelet, she states that she was sitting on the floor for about 5 minutes before her son came and helped her up. Yesterday she told her son she did not want to come to the emergency department. He has continued to insist that she come to the emergency department, she states that today she only came to and the argument with him. She reports mild pain to the left upper arm. Denies headache, vision changes, neck pain, neck stiffness, dizziness, lightheadedness, chest pain, shortness of breath, difficulty breathing, numbness or tingling in the extremities, weakness. She is currently anticoagulated on Eliquis Related Data Home Medications Medication Instructions Recorded Confirmed vitamin B complex and vitamin C 1 cap PO DAILY 04/09/22 06/09/22 no.20-folic acid 1 mg capsule insulin lispro 100 unit/mL 2 - 10 unit subcut QID 04/15/22 06/09/22 subcutaneous pen Previous Rx's Medication Instructions Recorded TRANSPORT WHEELCHAIR #1 imelda 08/03/21 blood pressure monitor #1 imelda 08/03/21 blood-glucose meter (FreeStyle #1 imelda 11/12/21 Lite Meter kit) Extra depth orthopedic shoes (1 #1 imelda 11/16/21 pair) with customized heat molded multidensity innersoles (3 pair) syringe with needle 3 mL 27 gauge #6 ea 03/08/22 x 1 06/26 loratadine 10 mg tablet 10 mg PO DAILY 90 days #90 tabs 04/29/22 ferrous sulfate 325 mg (65 mg 325 mg PO DAILY #90 tabs 05/06/22 iron) tablet hydralazine 25 mg tablet 25 mg PO TID 90 days #270 tabs 05/13/22 pen needle, diabetic 32 gauge x #50 ea 06/05/22 (BD Sandra 2nd Gen Pen Needle) albuterol sulfate 90 mcg/actuation 2 inh inhalation Q6H PRN shortness 06/10/22 aerosol inhaler of breath or wheezing 30 days #18 grams apixaban 5 mg tablet (Eliquis) 5 mg PO BID 90 days #180 tabs 06/12/22 blood sugar diagnostic (FreeStyle #300 ea 06/12/22 Lite Strips) blood-glucose meter (FreeStyle #1 ea 06/12/22 Lite Meter kit) levothyroxine 25 mcg tablet 25 mcg PO DAILY@0600 #90 tabs 06/12/22 montelukast 10 mg tablet 10 mg PO BEDTIME #90 tabs 06/12/22 Multaq 400 mg tablet (dronedarone) 400 mg PO BID #60 tabs 06/13/22 atorvastatin 40 mg tablet 40 mg PO BEDTIME #90 tabs 06/13/22 cyanocobalamin (vitamin B-12) 1,000 mcg IM Q4W #3 mL 06/13/22 1,000 mcg/mL injection solution docusate sodium 100 mg tablet 100 mg PO BID 30 days #60 tabs 06/13/22 fluticasone propionate 115 2 puff inhalation Q12H 30 days #12 06/13/22 mcg-salmeterol 21 mcg/actuation grams HFA inhaler (Advair HFA) insulin glargine 100 unit/mL (3 8 unit (0.08 mL) subcut BEDTIME 90 06/13/22 mL) subcutaneous pen ( #7.2 mL Solostar U-100 Insulin) insulin lispro 100 unit/mL 2 - 10 unit (0.02 - 0.1 mL) subcut 06/13/22 subcutaneous pen QID #15 mL lancets 28 gauge (FreeStyle #100 ea 06/13/22 Lancets) lidocaine 5 % topical patch 1 patch topical DAILY 30 days #30 06/13/22 ea metoprolol tartrate 25 mg tablet 25 mg PO BID #60 tabs 06/13/22 DIGITAL SCALE #1 ea 06/14/22 pantoprazole 40 mg tablet,delayed 40 mg PO DAILY@0630 30 days #30 06/29/22 release tabs sevelamer carbonate 800 mg tablet 800 mg PO TID 30 days #90 tabs 06/29/22 gabapentin 100 mg capsule 100 mg PO BID 30 days #60 caps 07/09/22 Allergies Allergy/AdvReac Type Severity Reaction Status Date / Time No Known Allergies Allergy Verified 06/26/22 12:42 Review of Systems Review of Systems: Constitutional : No Fever, No Chills, No Fatigue ENT/Mouth : No sore throat, No Rhinorrhea Eyes: No Eye Pain, No Swelling, No Redness Cardiovascular : No Chest Pain, No SOB, No Dyspnea on Exertion Respiratory : No Cough, No Sputum Gastrointestinal : No Nausea, No Vomiting, No Diarrhea, No abdominal Pain Genitourinary : No Dysuria, No Urinary Frequency, No Hematuria, Musculoskeletal : Positive left arm pain Skin : No Skin Lesions, No rash Neuro : No Weakness, No Numbness, No Dizziness, no Headache Psych : No Anxiety/Panic, No Depression Heme/Lymph: No Bruising, No Bleeding,No Lymphadenopathy Endocrine : No Polyuria, No Polydipsia Yes all other systems are reviewed and are negative [facility] Past Medical History Attestation statement: The following information was validated with the patient. Source: old records reviewed Medical History Acute pericardial effusion Anemia Asthma-COPD overlap syndrome Benign essential hypertension CAD (coronary artery disease) Chronic kidney disease, stage 4 (severe) Dyspnea ESRD (end stage renal disease) ESRD on dialysis Fluid overload GERD (gastroesophageal reflux disease) Hemodialysis patient HLD (hyperlipidemia) Hypertension Hypothyroidism Iron deficiency Nephrotic range proteinuria Obesity (BMI 30-39.9) Osteoarthritis PAF (paroxysmal atrial fibrillation) PAF (paroxysmal atrial fibrillation) Paroxysmal atrial fibrillation Pernicious anemia Pure hypercholesterolemia Toe amputee Type 2 diabetes mellitus Surgical History Hx of appendectomy S/P arteriovenous (AV) fistula creation Social History Social History Household Members: Other Household Members Other:: [facility] Housing: Assisted Living Facility Do you presently have visiting nurse or other home services: Yes Alcohol intake: former Patient Tobacco Use Status: Never used Tobacco Smoked in Last 30 Days: No e-Cigarette/Vaping Use: Never Used Second Hand Smoke Exposure: No Use of substances other than those prescribed or required for medical reasons: No Advance Directives: Yes Advance Directives on File: Yes Advance Directives Date on File: 04/10/22 service: No Current occupational status: retired Cognitive needs: Yes Hearing needs: No Vision needs: No Physical Exam Vital Signs: Vital Signs: Last Vital Signs Temp 98 F 07/19/22 10:53 Pulse 69 07/19/22 15:00 Resp 16 07/19/22 15:00 BP 157/61 H 07/19/22 15:00 Pulse Ox 96 07/19/22 14:18 O2 Del Method 07/19/22 14:18 BMI result Body Mass Index 35.2 Appearance: Alert.?Oriented to person, place and time. No acute distress.?Normal affect. Eyes: Pupils equal, round and reactive to light.? Right orbital bruising localized swelling, no palpable step-offs or deformities. ENT: Pharynx normal.?? Neck: Normal inspection.? Neck supple.??No midline cervical spine tenderness, step-offs, deformities. CVS: Heart sounds normal. Normal heart rate and rhythm.? Pulses normal.?? Respiratory: No respiratory distress.? Lung sounds clear to auscultation bilaterally?? Abdomen: Soft and non-tender. Normoactive bowel sounds. Skin: Skin warm and dry.? Normal skin color.? Extremities: No lower extremity edema. Bruising to the right proximal arm, decreased AROM to right shoulder. Neuro: Moves all extremities spontaneously. Sensation intact bilaterally. CN II-XII intact. No focal neuro deficits. Course Reevaluation(s) Reevaluation #1: Chemistries are overall unremarkable, renal function appears consistent with baseline, patient on hemodialysis Friday, , Friday, hypoglycemia at 58, provided with food and drink, repeat glucose 105. EKG revealing a sinus rhythm with first-degree AV block, which is seen on prior EKG in March 2022, no acute ischemic findings, troponin 20.6, which appears similar to prior levels obtained, do not suspect ACS at this time. Anemia present which appears consistent with baseline. CT of the head without acute intracranial abnormalities, cervical spine without acute fracture, subluxation or malalignment, and no acute maxillofacial fracture. XR imaging of the right shoulder/humerus reveals no acute fracture/dislocation, s/p open reduction and internal fixation comminuted proximal humeral fracture without any evidence of hardware abnormality. With the use of provider relations representative at this time I reviewed all findings with patient. Discussed plan of care for discharge home. At this time she reports to me that she would like to know the etiology of her black diarrhea for the past 5 days. She states that she is experiencing multiple episodes of diarrhea, typically in the evening, 3-4 episodes daily. At this time she is also endorsing left lower abdominal pain. She does have some mild tenderness upon palpation. Denies use of OTC NSAIDS. Discussed with patient obtain occult stool sample in CT of abdomen and pelvis for further evaluation Time: 16:07 Reevaluation #2: Occult stool is positive, CT of the abdomen pelvis without acute intra-abdominal findings, no inflammatory changes. At this time will consult Gastroenterology on-call Dr. Santacruz for further recommendations Time: 17:27 Reevaluation #3: Gastroenterology Dr. Santacruz recommending iron studies be obtained to evaluate for DIONICIO due to EPO deficiency from ESRD, orders placed for add on. Notable weakness upon evaluation of ambulatory status, uses walker at baseline. concern for GIB with melena, baseline anemia, will speak with hospitalist regarding admission. At this time patient to be NPO, patient received Protonix 40 mg IV. Time: 18:22 Additional Reevaluation(s): 19:30 patient accepted for admission to hospital service by Dr. Guan. Medications Administered Discontinued Medications Generic Name Dose Route Start Last Admin Trade Name Freq PRN Reason Stop Dose Admin Pantoprazole Sodium 40 mg 07/19/22 18:43 07/19/22 19:23 Pantoprazole Sodium 40 Mg/10 Ml Vial IVPUSH 07/19/22 18:44 40 mg ONCE ONE Administration Medical Decision Making Medical Decision Making MDM Narrative: Patient is a 76-year-old female with past medical history of end-stage renal disease on dialysis, asthma/COPD overlap, atrial fibrillation on Eliquis, anxiety, type 2 diabetes with polyneuropathy, anemia, CHF, hypothyroidism, hyperlipidemia, thrombosis of jugular vein who presents to the emergency department for evaluation after a reportedly mechanical fall having occurred yesterday without any evaluation. No focal neurological deficits at the time of examination, NIH stroke scale is 0. Reporting mild pain to the left arm, decreased AROM to left shoulder and tenderness upon palpation over the proximal humerus. Will obtain XR of the right shoulder and humerus to exclude fracture dislocation. Will obtain CT of the head, cervical spine, orbits to evaluate for fracture, dislocation, SAH/SAH/SDH. Based on patient's report the fall appears to have been mechanical in nature, however to exclude additional etiologies Will obtain CBC to evaluate for leukocytosis/ anemia, CMP to evaluate for abnormal electrolytes /abnormal renal function/ abnormal hepatic function, EKG and troponin to evaluate for ischemia/ACS, and Urinalysis. Differential Diagnosis Differential Diagnoses: The differential diagnosis associated with the presentation includes (As noted above) Admission/Observation Consideration of admission/observation: Escalation of care including admission/observation considered Lab Data MDM Lab Attestation statement: I reviewed the patient's lab results. 07/19/22 12:14 07/19/22 13:20 Labs: Lab Results 07/19/22 07/19/22 07/19/22 Range/Units 12:14 12:15 13:20 WBC 6.3 (4.8-10.8) X10*3/uL RBC 2.82 L (4.20-5.50) X10*6/uL Hgb 9.0 L (12.0-16.0) g/dl Hct 28.9 L (37.0-47.0) % MCV 102.5 H (80.0-98.0) fL MCH 31.9 (27.0-33.0) pg MCHC 31.1 (31.0-35.0) g/dl RDW 15.6 (11.0-16.0) % Plt Count 145 L (160-400) X10*3/uL MPV 10.5 (9.4-12.3) fL Immature Gran % (Auto) 0.2 (0.0-0.4) % Neut % (Auto) 64.1 (45-73) % Lymph % (Auto) 18.1 L (20-40) % [place] % (Auto) 11.2 H (2-11) % Eos % (Auto) 5.6 H (0-4) % Baso % (Auto) 0.8 (0-2) % Lymph # (Auto) 1.1 L (1.2-4.9) X10*3/uL [place] # (Auto) 0.7 (0.1-1.2) X10*3/uL Eos # (Auto) 0.4 (0.0-0.4) X10*3/uL Baso # (Auto) 0.1 (0.0-0.2) X10*3/uL Abs Immat Gran (auto) 0.01 (0.00-0.03) X10*3/uL Absolute Neuts (auto) 4.0 (2.0-8.3) x10*3/uL Absolute Nucleated RBC 0.000 (0.0-0.012) X10*3/uL Nucleated RBC % (auto) 0.0 (0.0-0.2) /100WBC PT 22.0 H (10.0-13.1) SEC INR 1.9 H (0.9-1.1) Sodium (135-145) mmol/L Potassium (3.3-5.1) mmol/L Chloride (96-108) mmol/L Carbon Dioxide (22-29) mmol/L Anion Gap (12-20) BUN (9-16) mg/dL Creatinine (0.5-1.4) mg/dL Estim Creat Clear Calc Estimated GFR POC Glucose (60-115) mg/dL Random Glucose (60-115) mg/dL Calcium (8.4-10.2) mg/dL Iron (30-160) mcg/dL TIBC (228-428) mcg/dL % Saturation (15-50) % Unsat Iron Binding ug/dL Ferritin (10-250) ng/mL Total Bilirubin (0.0-1.0) mg/dL AST (5-31) U/L ALT (0-31) U/L Alkaline Phosphatase (39-117) U/L Troponin I High Sens 20.6 H D (<3.5-17.0) ng/L Total Protein (6.5-8.0) g/dL Albumin (3.5-5.0) g/dL Stool Occult Blood (NEGATIVE) 07/19/22 07/19/22 07/19/22 Range/Units 13:20 15:48 17:11 WBC (4.8-10.8) X10*3/uL RBC (4.20-5.50) X10*6/uL Hgb (12.0-16.0) g/dl Hct (37.0-47.0) % MCV (80.0-98.0) fL MCH (27.0-33.0) pg MCHC (31.0-35.0) g/dl RDW (11.0-16.0) % Plt Count (160-400) X10*3/uL MPV (9.4-12.3) fL Immature Gran % (Auto) (0.0-0.4) % Neut % (Auto) (45-73) % Lymph % (Auto) (20-40) % [place] % (Auto) (2-11) % Eos % (Auto) (0-4) % Baso % (Auto) (0-2) % Lymph # (Auto) (1.2-4.9) X10*3/uL [place] # (Auto) (0.1-1.2) X10*3/uL Eos # (Auto) (0.0-0.4) X10*3/uL Baso # (Auto) (0.0-0.2) X10*3/uL Abs Immat Gran (auto) (0.00-0.03) X10*3/uL Absolute Neuts (auto) (2.0-8.3) x10*3/uL Absolute Nucleated RBC (0.0-0.012) X10*3/uL Nucleated RBC % (auto) (0.0-0.2) /100WBC PT (10.0-13.1) SEC INR (0.9-1.1) Sodium 139 (135-145) mmol/L Potassium 3.7 (3.3-5.1) mmol/L Chloride 99 (96-108) mmol/L Carbon Dioxide 29 (22-29) mmol/L Anion Gap 15 (12-20) BUN 30 H (9-16) mg/dL Creatinine 3.38 H (0.5-1.4) mg/dL Estim Creat Clear Calc 13.8 Estimated GFR 13 POC Glucose 105 (60-115) mg/dL Random Glucose 58 L* (60-115) mg/dL Calcium 8.2 L (8.4-10.2) mg/dL Iron 90 (30-160) mcg/dL TIBC 227 L (228-428) mcg/dL % Saturation 40 (15-50) % Unsat Iron Binding 137 ug/dL Ferritin 1501 H (10-250) ng/mL Total Bilirubin 0.6 (0.0-1.0) mg/dL AST 20 (5-31) U/L ALT 15 (0-31) U/L Alkaline Phosphatase 120 H (39-117) U/L Troponin I High Sens (<3.5-17.0) ng/L Total Protein 6.0 L (6.5-8.0) g/dL Albumin 3.5 (3.5-5.0) g/dL Stool Occult Blood POSITIVE (NEGATIVE) 07/19/22 Range/Units 19:08 WBC (4.8-10.8) X10*3/uL RBC (4.20-5.50) X10*6/uL Hgb (12.0-16.0) g/dl Hct (37.0-47.0) % MCV (80.0-98.0) fL MCH (27.0-33.0) pg MCHC (31.0-35.0) g/dl RDW (11.0-16.0) % Plt Count (160-400) X10*3/uL MPV (9.4-12.3) fL Immature Gran % (Auto) (0.0-0.4) % Neut % (Auto) (45-73) % Lymph % (Auto) (20-40) % [place] % (Auto) (2-11) % Eos % (Auto) (0-4) % Baso % (Auto) (0-2) % Lymph # (Auto) (1.2-4.9) X10*3/uL [place] # (Auto) (0.1-1.2) X10*3/uL Eos # (Auto) (0.0-0.4) X10*3/uL Baso # (Auto) (0.0-0.2) X10*3/uL Abs Immat Gran (auto) (0.00-0.03) X10*3/uL Absolute Neuts (auto) (2.0-8.3) x10*3/uL Absolute Nucleated RBC (0.0-0.012) X10*3/uL Nucleated RBC % (auto) (0.0-0.2) /100WBC PT (10.0-13.1) SEC INR (0.9-1.1) Sodium (135-145) mmol/L Potassium (3.3-5.1) mmol/L Chloride (96-108) mmol/L Carbon Dioxide (22-29) mmol/L Anion Gap (12-20) BUN (9-16) mg/dL Creatinine (0.5-1.4) mg/dL Estim Creat Clear Calc Estimated GFR POC Glucose 272 H (60-115) mg/dL Random Glucose (60-115) mg/dL Calcium (8.4-10.2) mg/dL Iron (30-160) mcg/dL TIBC (228-428) mcg/dL % Saturation (15-50) % Unsat Iron Binding ug/dL Ferritin (10-250) ng/mL Total Bilirubin (0.0-1.0) mg/dL AST (5-31) U/L ALT (0-31) U/L Alkaline Phosphatase (39-117) U/L Troponin I High Sens (<3.5-17.0) ng/L Total Protein (6.5-8.0) g/dL Albumin (3.5-5.0) g/dL Stool Occult Blood (NEGATIVE) Independent Interpretation I performed an independent interpretation of an: EKG and Plain X-Ray (Have personally interpreted x-ray of the right shoulder and humerus and agree with radiologist impression.) Interpretation: EKG Rate: 61 Rhythm:? Sinus rhythm with first-degree AV block Normal P waves.? Normal SYLVIA.?? Normal QRS complex.?? ST T wave :??No ST elevation, no ST depression qTC: 450 prior studies:? March 2022 The study has been interpreted contemporaneously by me. Radiology Impression Discussion of test interpretation with radiology: I have reviewed the radiologist's reading. Radiologist Impression: XR/XR humerus RT IMPRESSION: *? No evidence of loosening of humeral fixation hardware, status post open reduction and internal fixation of comminuted proximal humeral fracture. *? The chronic mild narrowing of the subacromial space suggests likelihood of chronic rotator cuff tear. *? No new osseous injury. CT/CT cervical spine wo IV con IMPRESSION: 1.? No acute intracranial finding. Chronic changes. 2.? No acute maxillofacial fracture. 3.? No acute fracture or malalignment of the cervical spine. Mild degenerative change. CT/CT abdomen pelvis wo IV con IMPRESSION: 1.? No acute findings in the abdomen or pelvis. No inflammatory changes. Mild diffuse colonic stool burden. 2.? Cholelithiasis without evidence of acute cholecystitis. 3.? Tiny left pleural effusion. Critical Care Time Critical Care Time Critical Care Time: Yes Total Critical Care Time: 35 Attestation: I personally attest to this critical care time spent taking care of the patient exclusive of all other billable procedures was approximately 35 minutes including initial evaluation of patient, ordering tests, x-ray interpretation, EKG interpretation, medical consultation, documentation, re-evaluation. Discharge Plan Discharge Clinical Impression: GI bleeding, Anemia Patient Disposition: Admitted As Inpatient
[2022-07-19 12:19] LABS: MANUAL DIFF FLAG NO
[2022-07-19 12:22] LABS: Basophils Absolute Auto 0.1 X10*3/uL (0.0-0.2); Basophils Percent Auto 0.8 % (0-2); Eosinophils Absolute Auto 0.4 X10*3/uL (0.0-0.4); Eosinophils Percent Auto 5.6 % (0-4); Hematocrit 28.9 % (37.0-47.0); Imm Gran Abs Auto 0.01 X10*3/uL (0.00-0.03); Imm Gran Pct Auto 0.2 % (0.0-0.4); Lymphocytes Absolute Auto 1.1 X10*3/uL (1.2-4.9); Lymphocytes Percent Auto 18.1 % (20-40); Mean Corpuscular HGB Conc 31.1 g/dl (31.0-35.0); Mean Corpuscular Hemoglobin 31.9 pg (27.0-33.0); Mean Corpuscular Volume 102.5 fL (80.0-98.0); Mean Platelet Volume 10.5 fL (9.4-12.3); Monocytes Absolute Auto 0.7 X10*3/uL (0.1-1.2); Monocytes Percent Auto 11.2 % (2-11); Neutrophils Percent Auto 64.1 % (45-73); Platelet Count 145 X10*3/uL (160-400); Red Blood Count 2.82 X10*6/uL (4.20-5.50); Red Cell Distribution Width 15.6 % (11.0-16.0); White Blood Count 6.3 X10*3/uL (4.8-10.8)
[2022-07-19 12:46] LABS: Troponin-I High Sensitivity 20.6 ng/L (<3.5-17.0)
[2022-07-19 13:35] LABS: INTERNATIONAL NORM RATIO 1.9 (0.9-1.1)
[2022-07-19 14:09] LABS: Alanine Aminotransferase 15 U/L (0-31); Albumin Level 3.5 g/dL (3.5-5.0); Alkaline Phosphatase 120 U/L (39-117); Anion Gap 15 (12-20); Aspartate Amino Transferase 20 U/L (5-31); Bilirubin Total 0.6 mg/dL (0.0-1.0); Blood Urea Nitrogen 30 mg/dL (9-16); Calcium 8.2 mg/dL (8.4-10.2); Carbon Dioxide 29 mmol/L (22-29); Chloride 99 mmol/L (96-108); Creatinine Clr Calc Pharmacy 13.8; Estimated Glomerular Filt Rate 13; Glucose Random 58 mg/dL (60-115); Potassium 3.7 mmol/L (3.3-5.1); Sodium 139 mmol/L (135-145)
[2022-07-19 14:18] VITALS: BP 145/39; PULSE 62; RESP 16; O2SAT 96
[2022-07-19 15:00] VITALS: BP 157/61; PULSE 69; RESP 16
[2022-07-19 15:52] LABS: Glucose, Whole Blood 105 mg/dL (60-115)
[2022-07-19 17:23] LABS: OBS Int Ctl Valid YES; OBS1 POSITIVE (NEGATIVE)
[2022-07-19 18:15] LABS: Iron 90 mcg/dL (30-160); Percent Iron Saturation 40 % (15-50); Total Iron Binding Capacity 227 mcg/dL (228-428); Unsaturated Iron Binding 137 ug/dL
[2022-07-19 18:23] LABS: Ferritin 1501 ng/mL (10-250)
--- NOTE | 2022-07-19 18:57 | PM.IMHP ---
History of Present Illness Date of Service: 07/19/22 Attending physician on admission: Torrey Guan Chief Complaint: Mechanical fall from lightheadedness Pt is a 76-year-old female with a PMH significant for end-stage renal disease on dialysis, asthma/COPD overlap, paroxysal atrial fibrillation on Eliquis, anxiety, insulin-dependent DM 2 with polyneuropathy, anemia of chronic disease, CHF, hypothyroidism, HLD, and thrombosis of the jugular vein who presents to the ED after a mechanical fall yesterday. Pt reports she was getting out of bed yesterday morning when she felt lightheaded, became dizzy and tipped forward and fell, hitting her head and right arm on her oxygen tank. She called her son using her Life Alert bracelet, who came within five minutes to help her up. Pt intially refused to come to the ED despite her son's insistence, but eventually relented today. Workup in the ED was unremarkable for her mechanical fall: CT of head, face, cervical spine all negative for acute findings, fractures, or misalignments. X-ray of the humerus and shoulder showed no new osseous findings. Just prior to discharge pt complained of left lower quadrant abdominal pain and black diarrhea, which prompted additional workup. Pt states she has been having 3-4 episodes of black diarrhea for the past 7 days. She has also experienced left lower quadrant pain for the past 5 days. During this time pt also notes increased lightheadedness and dizziness. Pt denies chest pain/pressure, palpitations. No shortness of breath. Denies fever, chills, nausea, vomiting. In the ED labs were significant for H&H of 9.0/28.9 (near baseline), MCV of 102.5, platelets below baseline at 145, iron levels WNL except for ferritin elevated at 1501 and transferrin still pending, chronically elevated troponin at 20.6 (at baseline). CT?of abdomen and pelvis showed tiny left pleural effusion, cholelithiasis without evidence of acute cholecystitis, but no acute findings in the abdomen or pelvis. EKG demonstrated sinus rhythm with 1st degree AV block and nonspecific T-wave abnormalities, but no evidence of ST elevations or depressions. Pt was treated with pantoprazole IV. Pt will be admitted to the hospital on telemetry for treatment and additional workup for symptomatic anemia likely secondary to GI bleed. Review of Systems Review of Systems: Mechanical fall with head strike Black diarrhea x7 days Lower left quadrant abdominal pain x5 days Lightheadedness, dizziness times x7 days No chest pain/pressure, palpitations No shortness of breath Yes all other systems are reviewed and are negative [facility] Medical History Acute pericardial effusion Anemia Asthma-COPD overlap syndrome Benign essential hypertension CAD (coronary artery disease) Chronic kidney disease, stage 4 (severe) Dyspnea ESRD (end stage renal disease) ESRD on dialysis Fluid overload GERD (gastroesophageal reflux disease) Hemodialysis patient HLD (hyperlipidemia) Hypertension Hypothyroidism Iron deficiency Nephrotic range proteinuria Obesity (BMI 30-39.9) Osteoarthritis PAF (paroxysmal atrial fibrillation) PAF (paroxysmal atrial fibrillation) Paroxysmal atrial fibrillation Pernicious anemia Pure hypercholesterolemia Toe amputee Type 2 diabetes mellitus Surgical History Hx of appendectomy S/P arteriovenous (AV) fistula creation Social History Household Members: Other [facility] Housing: Assisted Living Facility Do you presently have visiting nurse or other home services: Yes Alcohol intake: former Patient Tobacco Use Status: Never used Tobacco Smoked in Last 30 Days: No e-Cigarette/Vaping Use: Never Used Second Hand Smoke Exposure: No Use of substances other than those prescribed or required for medical reasons: No Currently Displaying Signs/Symptoms of Drug Intoxication Withdrawal: No Advance Directives: Yes Advance Directives on File: Yes Advance Directives Date on File: 04/10/22 service: No Current occupational status: retired and disabled Cognitive needs: Yes Hearing needs: No Vision needs: No Meds Allergies Allergy/AdvReac Type Severity Reaction Status Date / Time No Known Allergies Allergy Verified 06/26/22 12:42 Active Medications: Current Medications Pharmacy Consult (Consult Rx Perform Med Rec) 1 each MISCELLANE ONCE PRN PRN Reason: Consult order Home Medications Medication Instructions Recorded Confirmed Last Taken Type insulin lispro 100 unit/mL 2 - 10 unit subcut QIDACHS 04/15/22 07/19/22 Unknown History subcutaneous pen acetaminophen 325 mg tablet 325 mg PO Q6H PRN Mild Pain (Scale 07/19/22 07/19/22 Unknown History Score 1-4) calcitriol 0.25 mcg capsule 0.5 mcg PO 3XW 07/19/22 07/19/22 Unknown History lidocaine 5 % topical patch 1 patch topical DAILY 07/19/22 07/19/22 Unknown History sevelamer carbonate 800 mg tablet 800 mg PO TIDWM 07/19/22 07/19/22 Unknown History Physical Exam Vital Signs and Narrative: Vital Signs: Last Vital Signs Temp 98 F 07/19/22 10:53 Pulse 69 07/19/22 15:00 Resp 16 07/19/22 15:00 BP 157/61 H 07/19/22 15:00 Pulse Ox 96 07/19/22 14:18 O2 Del Method 07/19/22 14:18 BMI result Body Mass Index 35.2 Constitutional: Alert, in no acute distress. Mental Status: Oriented to person, place and time. Eyes: Pupils are equal, round, and reactive to light. Ear, Nose, and Throat: Oropharynx clear, mucous membranes moist. Ears and nose without deformities. Trachea midline. Respiratory: Clear to auscultation bilaterally. No wheezing, rales, or rhonchi. Cardiovascular: S1, S2 regular. No murmurs, rubs, or gallops. Gastrointestinal: Lower abdomen diffusely tender, especially in lower left quadrant. Abdomen soft and non-distended. Normal bowel sounds. Neurologic: Cranial nerves II-XII are grossly intact. No focal neurological deficits. Moves all extremities spontaneously. Skin: Ecchymosis under and on the side of right eye. Area of ecchymosis on upper right arm. Extremities: No edema. Psychiatric: Normal mood and affect. Results Labs 07/19/22 12:14 07/19/22 13:20 Labs: Laboratory Results - last 24 hr 07/19/22 07/19/22 07/19/22 12:14 12:15 13:20 MCV 102.5 H MCH 31.9 MCHC 31.1 RDW 15.6 Plt Count 145 L MPV 10.5 Immature Gran % (Auto) 0.2 Neut % (Auto) 64.1 Lymph % (Auto) 18.1 L [place] % (Auto) 11.2 H Eos % (Auto) 5.6 H Baso % (Auto) 0.8 Lymph # (Auto) 1.1 L [place] # (Auto) 0.7 Eos # (Auto) 0.4 Baso # (Auto) 0.1 Abs Immat Gran (auto) 0.01 Absolute Neuts (auto) 4.0 Absolute Nucleated RBC 0.000 Nucleated RBC % (auto) 0.0 PT 22.0 H INR 1.9 H Anion Gap Estim Creat Clear Calc Estimated GFR POC Glucose Random Glucose Calcium Iron TIBC % Saturation Unsat Iron Binding Ferritin Total Bilirubin AST ALT Alkaline Phosphatase Troponin I High Sens 20.6 H D Total Protein Albumin Stool Occult Blood 07/19/22 07/19/22 07/19/22 13:20 15:48 17:11 MCV MCH MCHC RDW Plt Count MPV Immature Gran % (Auto) Neut % (Auto) Lymph % (Auto) [place] % (Auto) Eos % (Auto) Baso % (Auto) Lymph # (Auto) [place] # (Auto) Eos # (Auto) Baso # (Auto) Abs Immat Gran (auto) Absolute Neuts (auto) Absolute Nucleated RBC Nucleated RBC % (auto) PT INR Anion Gap 15 Estim Creat Clear Calc 13.8 Estimated GFR 13 POC Glucose 105 Random Glucose 58 L* Calcium 8.2 L Iron 90 TIBC 227 L % Saturation 40 Unsat Iron Binding 137 Ferritin 1501 H Total Bilirubin 0.6 AST 20 ALT 15 Alkaline Phosphatase 120 H Troponin I High Sens Total Protein 6.0 L Albumin 3.5 Stool Occult Blood POSITIVE Imaging Radiologist's Impressions: Impressions Cervical Spine CT 07/19/22 11:50 IMPRESSION: 1. No acute intracranial finding. Chronic changes. 2. No acute maxillofacial fracture. 3. No acute fracture or malalignment of the cervical spine. Mild degenerative change. Face CT 07/19/22 11:50 IMPRESSION: 1. No acute intracranial finding. Chronic changes. 2. No acute maxillofacial fracture. 3. No acute fracture or malalignment of the cervical spine. Mild degenerative change. Head CT 07/19/22 11:50 IMPRESSION: 1. No acute intracranial finding. Chronic changes. 2. No acute maxillofacial fracture. 3. No acute fracture or malalignment of the cervical spine. Mild degenerative change. Humerus X-Ray 07/19/22 11:50 IMPRESSION: * No evidence of loosening of humeral fixation hardware, status post open reduction and internal fixation of comminuted proximal humeral fracture. * The chronic mild narrowing of the subacromial space suggests likelihood of chronic rotator cuff tear. * No new osseous injury. Shoulder X-Ray 07/19/22 11:57 IMPRESSION: * No evidence of loosening of humeral fixation hardware, status post open reduction and internal fixation of comminuted proximal humeral fracture. * The chronic mild narrowing of the subacromial space suggests likelihood of chronic rotator cuff tear. * No new osseous injury. Abdomen/Pelvis CT 07/19/22 16:31 IMPRESSION: 1. No acute findings in the abdomen or pelvis. No inflammatory changes. Mild diffuse colonic stool burden. 2. Cholelithiasis without evidence of acute cholecystitis. 3. Tiny left pleural effusion. Fleischner guidelines were followed. Assessment and Plan (1) GI bleeding: Status: Acute (2) Anemia: Status: Acute (3) Melena: Status: Acute Plan Pt is a 76-year-old female with a PMH significant for end-stage renal disease on dialysis, asthma/COPD overlap, paroxysal atrial fibrillation on Eliquis, anxiety, insulin-dependent DM 2 with polyneuropathy, anemia of chronic disease, CHF, hypothyroidism, HLD, and thrombosis of the jugular vein who presents to the ED after a mechanical fall yesterday who also complains of black diarrhea x7 days and left lower quadrant abdominal pain x5 days.. Pt will be admitted to the hospital on telemetry for treatment and additional workup for symptomatic anemia likely secondary to GI bleed. Acute blood-loss anemia d/t GI bleed H&H of 9.0/28.9, near baseline Stool positive for occult blood Plaque diarrhea x7 days Hold Eliquis Protonix IV bid Clear liquid diet now, NPO after midnight Gi consult Patient admitted to telemetry Paroxysmal AFib EKG shows patient currently in sinus rhythm with first-degree heart block Hold Eliquis Patient admitted to telemetry End stage renal disease on dialysis Patient receives dialysis on Tuesdays, , and Saturdays Patient's creatinine stable at 3.38, at baseline Nephrology consult Insulin-dependent diabetes mellitus Hold home meds ALLIE, Suhas Asthma/COPD overlap syndrome Not in acute exacerbation Continue home inhalers Monitor respiratory status Full Code Attending:?Dr. Junior DVT Prophylaxis: Pneumatic boots Pt will require a hospitalization of at least two nights for treatment of and additional workup for acute blood loss anemia due to likely GI bleed. Time Spent With Patient Time: Total time managing care of this patient today ____ minutes. Quality Stroke Does the patient have a stroke diagnosis?: No VTE Prior VTE?: No VTE Risk Level:: Medical - moderate - high VTE Device Contraindication: N/A - Device Ordered VTE Drug Contraindication: Treatment Not Indicated
[2022-07-19 19:12] LABS: Glucose, Whole Blood 272 mg/dL (60-115)
[2022-07-19] MEDS: Pantoprazole Sodium 40 MG/10 ML VIAL IVPUSH (19:23)
--- NOTE | 2022-07-19 20:14 | PC.NURSE ---
Patient is alert and oriented x3. Patient reports generalized achy, pain rating level of pain 4/10 on 0-10 pain scale. Patient has history of ESRD on HD. Dialysis catheter in Right upper chest. Patient reports she urinates small quantities of urine infrequently. Patient denies urinary symptoms at present. Patient reports feeling dizzy lightheaded-onset of dizziness/lightheadedness about 1 week ago. Patient has 22 G IV line in right wrist. Patient received Pantoprazole 40 mg IV push per AUG. Skin assessment completed, scattered bruising noted all over patient's body d/t recent fall, no open wound noted. Patient is able to make her needs known. She is resting comfortably in stretcher bed at present, call madrigal within patient's reach. Patient was seen by a hospitalist. Plan for GI consult in am, patient to be clear liquids diet until 12:00 am, NPO after midnight. Patient verbalized understanding of POC.
--- NOTE | 2022-07-19 20:18 | PHA.MEDREC ---
MED REC COMPLETE, NO ISSUES Pharmacy Consult ? Medication Reconciliation Pharmacy has completed the medication reconciliation.
[2022-07-19 20:58] LABS: COVID-19 Test Negative (Negative); IDNOW Serial# 6674DD1D
[2022-07-19] MEDS: Gabapentin 100 MG CAPSULE PO (23:28)
[2022-07-19] MEDS: Metoprolol Tartrate 25 MG TABLET PO (23:28)
[2022-07-19] MEDS: hydrALAZINE HCl 25 MG TABLET PO (23:28)
[2022-07-19] MEDS: Atorvastatin Calcium 40 MG TABLET PO (23:28)
[2022-07-19] MEDS: Montelukast Sodium 10 MG TABLET PO (23:29)
[2022-07-19 23:41] LABS: Glucose, Whole Blood 188 mg/dL (60-115)
[2022-07-19] MEDS: Insulin Lispro 100 UNIT/ML 3 ML VIAL SUBCUT (23:42)
[2022-07-20] VITALS (8 sets, daily range): BP systolic 120–189; BP diastolic 46–88; PULSE 66–75; RESP 16–20; TEMP 36.2–36.7; O2SAT 94–97
--- NOTE | 2022-07-20 02:00 | PC.NURSE ---
Nurse to nurse report given to AMINA Osuna. Patient nt to be transported to [facility] by tax technician.
[2022-07-20] MEDS: 0.9 % Sodium Chloride Flush 3 ML SYRINGE IVFLUSH ×2 (03:14→08:13)
--- NOTE | 2022-07-20 04:40 | PC.NURSE ---
pt arrival to unit and BP elevated SBP 189, pt symptomatic MD aware. dialysis catheter on Right upper chest exposed with no dsg, catheter very easily able to move around. pt somewhat restless in bed but denies pain, catheter secured with central line dsg and MD aware. Pt Right eye bruised due from previous mechanical fall prior to being admitted.
[2022-07-20 07:23] LABS: Anion Gap 22 (12-20); Blood Urea Nitrogen 40 mg/dL (9-16); Carbon Dioxide 21 mmol/L (22-29); Chloride 100 mmol/L (96-108); Estimated Glomerular Filt Rate 10; Glucose Random 86 mg/dL (60-115); Sodium 138 mmol/L (135-145)
[2022-07-20 07:38] LABS: Glucose, Whole Blood 89 mg/dL (60-115)
[2022-07-20 07:50] LABS: Hematocrit 27.5 % (37.0-47.0); Hemoglobin 8.7 g/dl (12.0-16.0); Mean Corpuscular HGB Conc 31.6 g/dl (31.0-35.0); Mean Corpuscular Volume 101.1 fL (80.0-98.0); Mean Platelet Volume 11.8 fL (9.4-12.3); Platelet Count 139 X10*3/uL (160-400); Red Blood Count 2.72 X10*6/uL (4.20-5.50); Red Cell Distribution Width 15.6 % (11.0-16.0); White Blood Count 6.4 X10*3/uL (4.8-10.8)
[2022-07-20] MEDS: Loratadine 10 MG TABLET PO (08:13)
[2022-07-20] MEDS: Metoprolol Tartrate 25 MG TABLET PO ×2 (08:13→20:12)
[2022-07-20] MEDS: Dronedarone HCl 400 MG TABLET PO ×2 (08:13→20:13)
[2022-07-20] MEDS: Ferrous Sulfate 324 MG TABLET.DR PO (08:13)
[2022-07-20] MEDS: Gabapentin 100 MG CAPSULE PO ×2 (08:13→20:13)
[2022-07-20] MEDS: Sevelamer Carbonate Tablet 800 MG TABLET PO ×2 (08:13→16:25)
[2022-07-20] MEDS: hydrALAZINE HCl 25 MG TABLET PO ×3 (08:13→20:13)
[2022-07-20] MEDS: Insulin Glargine,Hum.rec.anlog 100 UNIT/ML 10 ML VIAL 6 UNIT SUBCUT (08:21)
[2022-07-20] MEDS: Lidocaine 4 % Patch ADH..PATCH 1 PATCH TRANSDERMA (08:22)
--- NOTE | 2022-07-20 09:14 | P.CONNP_ITS ---
History of Present Illness Reason for Consult Consult date: 07/20/22 Chief Complaint Chief complaint: lightheadedness, mechanical fall History of Present Illness Narrative: 76 year old patient with history of ESRD admitted with GIB. Patient normally has dialysis Friday, and Friday. At the time of the consultation she denies chest pain, shortness of breath, nausea, vomiting or diarrhea. She complains of black diarrhea for 7 days and left lower quadrant abdominal pain as well. Review of Systems Review of Systems 10 points ROS negative except for pertinent in HPI [facility] Past Medical History Medical History Acute pericardial effusion Anemia Asthma-COPD overlap syndrome Benign essential hypertension CAD (coronary artery disease) Chronic kidney disease, stage 4 (severe) Dyspnea ESRD (end stage renal disease) ESRD on dialysis Fluid overload GERD (gastroesophageal reflux disease) Hemodialysis patient HLD (hyperlipidemia) Hypertension Hypothyroidism Iron deficiency Nephrotic range proteinuria Obesity (BMI 30-39.9) Osteoarthritis PAF (paroxysmal atrial fibrillation) PAF (paroxysmal atrial fibrillation) Paroxysmal atrial fibrillation Pernicious anemia Pure hypercholesterolemia Toe amputee Type 2 diabetes mellitus Surgical History Surgical History Hx of appendectomy S/P arteriovenous (AV) fistula creation Social History Social History Household Members: Other Household Members Other:: [facility] Housing: Assisted Living Facility Do you presently have visiting nurse or other home services: Yes Alcohol intake: former Patient Tobacco Use Status: Never used Tobacco Smoked in Last 30 Days: No e-Cigarette/Vaping Use: Never Used Second Hand Smoke Exposure: No Use of substances other than those prescribed or required for medical reasons: No Advance Directives: Yes Advance Directives on File: Yes Advance Directives Date on File: 04/10/22 service: No Current occupational status: retired Cognitive needs: Yes Hearing needs: No Vision needs: No Meds Allergies Allergy/AdvReac Type Severity Reaction Status Date / Time No Known Allergies Allergy Verified 06/26/22 12:42 Active Medications: Current Medications Acetaminophen (Acetaminophen 325 Mg Tablet) 650 mg PO Q6H PRN PRN Reason: Pain, Mild (Pain Scale 1-3) Albuterol Sulfate (Albuterol Sulfate 90 Mcg 8 Gm Inhaler) 2 puff INHALE Q6H PRN PRN Reason: shortness of breath or wheezing Atorvastatin Calcium (Atorvastatin Calcium 40 Mg Tablet) 40 mg PO BEDTIME [facility] Last Admin: 07/19/22 23:28 Dose: 40 mg Calcitriol (Calcitriol 0.25 Mcg Capsule) 0.5 mcg PO MoWeFr@0900 [facility] Cyanocobalamin (Cyanocobalamin (Vitamin B-12) 1,000 Mcg/Ml Vial) 1,000 mcg IM Q28D [facility] Dextrose (Dextrose 50 % 25 Gm/50 Ml Syringe) 25 gm IVPUSH Q15M PRN; Protocol PRN Reason: per Hypoglycemia Standing Ord. Dronedarone (Dronedarone Hcl 400 Mg Tablet) 400 mg PO BID [facility] Last Admin: 07/20/22 08:13 Dose: 400 mg Ferrous Sulfate (Ferrous Sulfate 324 Mg Tablet.Dr) 324 mg PO DAILY [facility] Last Admin: 07/20/22 08:13 Dose: 324 mg Fluticasone/Vilanterol (Fluticasone/Vilanterol 100/25 Blst.W.Dev) 1 puff INHALE RDAILY [facility] Last Admin: 07/20/22 07:43 Dose: Not Given Gabapentin (Gabapentin 100 Mg Capsule) 100 mg PO BID [facility] Last Admin: 07/20/22 08:13 Dose: 100 mg Glucose (Glucose Gel 15 Gm Gel..Gram.) 15 gm PO Q15M PRN; Protocol PRN Reason: per Hypoglycemia Standing Ord. Hydralazine HCl (Hydralazine Hcl 25 Mg Tablet) 25 mg PO TID [facility]; Protocol Last Admin: 07/20/22 08:13 Dose: 25 mg Insulin Glargine (Insulin Glargine,Hum.Rec.Anlog 100 Unit/Ml 10 Ml Vial) 6 unit SUBCUT BEDTIME [facility] Last Admin: 07/20/22 08:21 Dose: 6 unit Insulin Human Lispro (Insulin Lispro 100 Unit/Ml 3 Ml Vial) 0 unit SUBCUT QIDACHS [facility]; Protocol Last Admin: 07/20/22 08:12 Dose: Not Given Levothyroxine Sodium (Levothyroxine Sodium 25 Mcg Tablet) 25 mcg PO DAILY@0600 [facility] Last Admin: 07/20/22 04:47 Dose: Not Given Lidocaine (Lidocaine 4 % Patch Adh..Patch) 1 patch TRANSDERMA DAILY [facility] Last Admin: 07/20/22 08:22 Dose: 1 patch Loratadine (Loratadine 10 Mg Tablet) 10 mg PO DAILY [facility] Last Admin: 07/20/22 08:13 Dose: 10 mg Metoprolol Tartrate (Metoprolol Tartrate 25 Mg Tablet) 25 mg PO BID [facility]; Protocol Last Admin: 07/20/22 08:13 Dose: 25 mg Montelukast Sodium (Montelukast Sodium 10 Mg Tablet) 10 mg PO BEDTIME [facility] Last Admin: 07/19/22 23:29 Dose: 10 mg Pantoprazole Sodium (Pantoprazole Sodium 40 Mg/10 Ml Vial) 40 mg IVPUSH BID@0630,1630 [facility] Last Admin: 07/20/22 04:47 Dose: Not Given Pharmacy Consult (Consult Rx Perform Med Rec) 1 each MISCELLANE ONCE PRN PRN Reason: Consult order Sevelamer Carbonate (Sevelamer Carbonate Tablet 800 Mg Tablet) 800 mg PO TIDWM [facility] Last Admin: 07/20/22 08:13 Dose: 800 mg Sodium Chloride (0.9 % Sodium Chloride Flush 3 Ml Syringe) 3 ml IVFLUSH QSHIFT [facility] Last Admin: 07/20/22 08:13 Dose: 3 ml Home Medications Medication Instructions Recorded Confirmed Last Taken Type insulin lispro 100 unit/mL 2 - 10 unit subcut QIDACHS 04/15/22 07/19/22 Unknown History subcutaneous pen acetaminophen 325 mg tablet 325 mg PO Q6H PRN Mild Pain (Scale 07/19/22 07/19/22 Unknown History Score 1-4) calcitriol 0.25 mcg capsule 0.5 mcg PO 3XW 07/19/22 07/19/22 Unknown History lidocaine 5 % topical patch 1 patch topical DAILY 07/19/22 07/19/22 Unknown History sevelamer carbonate 800 mg tablet 800 mg PO TIDWM 07/19/22 07/19/22 Unknown History Physical Exam Vital Signs: Last Vital Signs Temp 97.9 F 07/20/22 07:40 Pulse 69 07/20/22 07:40 Resp 20 07/20/22 07:40 BP 149/65 H 07/20/22 07:40 Pulse Ox 94 07/20/22 07:40 O2 Del Method 07/20/22 07:40 BMI result Body Mass Index 35.2 Const General: alert and awake HEENT Head: Yes normocephalic Neck Neck: Yes supple Resp Auscultation: diminished lung sounds Cardio Heart sounds: S1 normal heart sound present and S2 normal heart sound present GI Palpation (GI): Soft to palpation and nontender Extrem General: Yes edema Results Lab Results 07/20/22 06:33 07/20/22 06:33 Lab results: Chemistry 07/19/22 07/20/22 13:20 06:33 Sodium 139 138 Potassium 3.7 5.0 D Carbon Dioxide 29 21 L BUN 30 H 40 H Creatinine 3.38 H 4.25 H* Calcium 8.2 L 8.0 L Hematology 07/19/22 07/20/22 12:14 06:33 WBC 6.3 6.4 Hgb 9.0 L 8.7 L Plt Count 145 L 139 L Assessment and Plan (1) ESRD (end stage renal disease): Status: Acute (2) GI bleeding: Status: Acute (3) Anemia: Status: Acute Plan usually has HD t-t-s at [facility] dialysis unit admitted with GIB REC HD today optimize volume status follow h/h blood transfusion as needed IV protonix GI consult DARA renal diet phosphate binders Time Spent With Patient Time: Total time managing care of this patient today ____ minutes. Procedures Date of Service Date of Service: 07/20/22
--- NOTE | 2022-07-20 10:00 | MHC.CM.PN ---
CM spoke with Patient's Son/HCP/Jason @ [phone](Patient unavailable) and addressed IMM with him-original will be mailed certified mail to Jason and a copy has been placed on the chart. Patient lives alone in a house and uses a walker to assist with mobility.Jason is Patient's [employer] (36 hours/week)and Jason feels that STR will be necessary and he is agreeable to a SNF search. CM has initiated and will follow for dc planning. Patient has received Pfizer/Covid vax x4 and her PCP is Dr. Lonnie Wilekrson. Patient goes to HD at [facility].
[2022-07-20 10:59] LABS: Glucose, Whole Blood 154 mg/dL (60-115)
--- NOTE | 2022-07-20 11:16 | PM.GICN ---
History of Present Illness Data of Consult Service Date: 07/20/22 Requesting physician: Zeb Mayberry Primary Care Provider: Unknown Physician HPI Reason for consult: Anemia This is a 76-year-old female with past medical history of end-stage renal disease on hemodialysis, atrial fibrillation on Eliquis, hypothyroidism, osteopenia, type 2 diabetes, hypertension, who presented to the hospital after having a mechanical fall. On blood work, she was also noted to have anemia with hemoglobin of 9 which appears to be at her baseline. With wide MCV. Also noted to have platelet count of 139. Chem 7 was significant for non iron deficiency anemia with low TIBC and high ferritin. Gastroenterology has been consulted for evaluation of anemia. Patient was seen in the dialysis room with the help of staff mechanical engineer. Patient reports having nausea and decreased appetite for the last 7 days which is associated with loose black diarrhea which is foul smelling. Otherwise, no abdominal pain. Has not seen any neville blood in stool. Last endoscopy was many years ago, and she actually is due for repeat colonoscopy. Does not recall a history of upper endoscopy. She is on Eliquis for atrial fibrillation. Last dose was yesterday morning. Review of Systems Review of Systems: Yes all other systems are reviewed and are negative PMFSH Past Medical History Medical History Acute pericardial effusion Anemia Asthma-COPD overlap syndrome Benign essential hypertension CAD (coronary artery disease) Chronic kidney disease, stage 4 (severe) Dyspnea ESRD (end stage renal disease) ESRD on dialysis Fluid overload GERD (gastroesophageal reflux disease) Hemodialysis patient HLD (hyperlipidemia) Hypertension Hypothyroidism Iron deficiency Nephrotic range proteinuria Obesity (BMI 30-39.9) Osteoarthritis PAF (paroxysmal atrial fibrillation) PAF (paroxysmal atrial fibrillation) Paroxysmal atrial fibrillation Pernicious anemia Pure hypercholesterolemia Toe amputee Type 2 diabetes mellitus Surgical History Surgical History Hx of appendectomy S/P arteriovenous (AV) fistula creation Social History Social History Household Members: Other Household Members Other:: [facility] Housing: Assisted Living Facility Do you presently have visiting nurse or other home services: Yes Alcohol intake: former Patient Tobacco Use Status: Never used Tobacco Smoked in Last 30 Days: No e-Cigarette/Vaping Use: Never Used Second Hand Smoke Exposure: No Use of substances other than those prescribed or required for medical reasons: No Advance Directives: Yes Advance Directives on File: Yes Advance Directives Date on File: 04/10/22 service: No Current occupational status: retired and disabled Cognitive needs: Yes Hearing needs: No Vision needs: No Meds Allergies Allergy/AdvReac Type Severity Reaction Status Date / Time No Known Allergies Allergy Verified 06/26/22 12:42 Active Medications: Current Medications Acetaminophen (Acetaminophen 325 Mg Tablet) 650 mg PO Q6H PRN PRN Reason: Pain, Mild (Pain Scale 1-3) Albuterol Sulfate (Albuterol Sulfate 90 Mcg 8 Gm Inhaler) 2 puff INHALE Q6H PRN PRN Reason: shortness of breath or wheezing Atorvastatin Calcium (Atorvastatin Calcium 40 Mg Tablet) 40 mg PO BEDTIME [facility] Last Admin: 07/19/22 23:28 Dose: 40 mg Calcitriol (Calcitriol 0.25 Mcg Capsule) 0.5 mcg PO MoWeFr@0900 [facility] Cyanocobalamin (Cyanocobalamin (Vitamin B-12) 1,000 Mcg/Ml Vial) 1,000 mcg IM Q28D [facility] Dextrose (Dextrose 50 % 25 Gm/50 Ml Syringe) 25 gm IVPUSH Q15M PRN; Protocol PRN Reason: per Hypoglycemia Standing Ord. Dronedarone (Dronedarone Hcl 400 Mg Tablet) 400 mg PO BID [facility] Last Admin: 07/20/22 08:13 Dose: 400 mg Ferrous Sulfate (Ferrous Sulfate 324 Mg Tablet.Dr) 324 mg PO DAILY [facility] Last Admin: 07/20/22 08:13 Dose: 324 mg Fluticasone/Vilanterol (Fluticasone/Vilanterol 100/25 Blst.W.Dev) 1 puff INHALE RDAILY [facility] Last Admin: 07/20/22 07:43 Dose: Not Given Gabapentin (Gabapentin 100 Mg Capsule) 100 mg PO BID [facility] Last Admin: 07/20/22 08:13 Dose: 100 mg Glucose (Glucose Gel 15 Gm Gel..Gram.) 15 gm PO Q15M PRN; Protocol PRN Reason: per Hypoglycemia Standing Ord. Hydralazine HCl (Hydralazine Hcl 25 Mg Tablet) 25 mg PO TID [facility]; Protocol Last Admin: 07/20/22 08:13 Dose: 25 mg Insulin Glargine (Insulin Glargine,Hum.Rec.Anlog 100 Unit/Ml 10 Ml Vial) 6 unit SUBCUT BEDTIME [facility] Last Admin: 07/20/22 08:21 Dose: 6 unit Insulin Human Lispro (Insulin Lispro 100 Unit/Ml 3 Ml Vial) 0 unit SUBCUT QIDACHS [facility]; Protocol Last Admin: 07/20/22 08:12 Dose: Not Given Levothyroxine Sodium (Levothyroxine Sodium 25 Mcg Tablet) 25 mcg PO DAILY@0600 [facility] Last Admin: 07/20/22 04:47 Dose: Not Given Lidocaine (Lidocaine 4 % Patch Adh..Patch) 1 patch TRANSDERMA DAILY [facility] Last Admin: 07/20/22 08:22 Dose: 1 patch Loratadine (Loratadine 10 Mg Tablet) 10 mg PO DAILY [facility] Last Admin: 07/20/22 08:13 Dose: 10 mg Metoprolol Tartrate (Metoprolol Tartrate 25 Mg Tablet) 25 mg PO BID [facility]; Protocol Last Admin: 07/20/22 08:13 Dose: 25 mg Montelukast Sodium (Montelukast Sodium 10 Mg Tablet) 10 mg PO BEDTIME [facility] Last Admin: 07/19/22 23:29 Dose: 10 mg Pantoprazole Sodium (Pantoprazole Sodium 40 Mg/10 Ml Vial) 40 mg IVPUSH BID@0630,1630 [facility] Last Admin: 07/20/22 04:47 Dose: Not Given Pharmacy Consult (Consult Rx Perform Med Rec) 1 each MISCELLANE ONCE PRN PRN Reason: Consult order Sevelamer Carbonate (Sevelamer Carbonate Tablet 800 Mg Tablet) 800 mg PO TIDWM [facility] Last Admin: 07/20/22 08:13 Dose: 800 mg Sodium Chloride (0.9 % Sodium Chloride Flush 3 Ml Syringe) 3 ml IVFLUSH QSHIFT [facility] Last Admin: 07/20/22 08:13 Dose: 3 ml Home Medications Medication Instructions Recorded Confirmed Last Taken Type insulin lispro 100 unit/mL 2 - 10 unit subcut QIDACHS 04/15/22 07/19/22 Unknown History subcutaneous pen acetaminophen 325 mg tablet 325 mg PO Q6H PRN Mild Pain (Scale 07/19/22 07/19/22 Unknown History Score 1-4) calcitriol 0.25 mcg capsule 0.5 mcg PO 3XW 07/19/22 07/19/22 Unknown History lidocaine 5 % topical patch 1 patch topical DAILY 07/19/22 07/19/22 Unknown History sevelamer carbonate 800 mg tablet 800 mg PO TIDWM 07/19/22 07/19/22 Unknown History Physical Exam Vital Signs: Vital Signs: Last Vital Signs Temp 97.9 F 07/20/22 07:40 Pulse 69 07/20/22 07:40 Resp 20 07/20/22 07:40 BP 149/65 H 07/20/22 07:40 Pulse Ox 94 07/20/22 07:40 O2 Del Method 07/20/22 07:40 BMI result Body Mass Index 35.2 Gen appear: Elderly female with obesity HEENT: R perioribtal echymosis no icterus, no cervical lymphadenopathy Chest: No overt resp distress CVS: S1/S2, irregular Abd: soft, nontender, nondistended Psych: Stable affect, answering questions appropriately Neuro: Sleepy, but easily awakened with verbal cues Results Labs 07/20/22 06:33 07/20/22 06:33 Labs: Short CBC 07/19/22 07/20/22 Range/Units 12:14 06:33 WBC 6.3 6.4 (4.8-10.8) X10*3/uL Hgb 9.0 L 8.7 L (12.0-16.0) g/dl Hct 28.9 L 27.5 L (37.0-47.0) % Plt Count 145 L 139 L (160-400) X10*3/uL BMP 07/19/22 07/20/22 13:20 06:33 Sodium 139 138 Potassium 3.7 5.0 D Chloride 99 100 Carbon Dioxide 29 21 L BUN 30 H 40 H Creatinine 3.38 H 4.25 H* Calcium 8.2 L 8.0 L Liver Function 07/19/22 Range/Units 13:20 Total Bilirubin 0.6 (0.0-1.0) mg/dL AST 20 (5-31) U/L ALT 15 (0-31) U/L Alkaline Phosphatase 120 H (39-117) U/L Albumin 3.5 (3.5-5.0) g/dL Assessment and Plan (1) Melena: Status: Acute (2) Anemia: Status: Acute (3) ESRD (end stage renal disease): Status: Acute (4) Chronic anticoagulation: Status: Acute Plan Although no iron deficiency on labs, reported history is concerning for melena and acute upper GI bleed. Differentials include PUD, esophagitis/gastritis/duodenitis, AVM. Recommendations: -ensure at least 2 peripheral IV access at all times -monitor CBC daily. Transfuse for hemoglobin <7 -start IV ppi 40 b.i.d. -continue to hold Eliquis -depending on the trend of H/H may need inpatient EGD vs outpatient bidirectional endoscopy. Will need at least 4 days of eliquis washout unless needs urgent therapeutic endoscopy for overt GI hemorrhage. Thank you for the consultation. Please do not hesitate to reach out for any questions or concerns. Time Spent With Patient Time: Total time managing care of this patient today ____ minutes. Procedures Date of Service Date of Service: 07/20/22
--- NOTE | 2022-07-20 12:16 | P.PNIM_ITS ---
Subjective Subjective Date of Service: 07/20/22 Interval History: the patient was seen and evaluated this morning Laying in bed, feels comfortable overall Complaining of pain overall her body from the fall, have multiple bruises No reported bleeding or melena overnight Hemoglobin remained stable with no major drop No reported other overnight events. Review of Systems Review of Systems: Yes all other systems are reviewed and are negative Physical Exam Vital Signs: Vital Signs: Last Vital Signs Temp 97.2 F 07/20/22 12:00 Pulse 69 07/20/22 07:40 Resp 16 07/20/22 12:00 BP 128/88 07/20/22 12:00 Pulse Ox 94 07/20/22 07:40 O2 Del Method 07/20/22 12:00 BMI result Body Mass Index 35.2 Const: Other: Constitutional : Awake, interactive, not in distress Neck : Normal inspection, Supple Cardiovascular : RRR, no JVP, no lower extremity edema Respiratory : good bilateral air entry, no crackles, wheezes or rhonchi Gastrointestinal: soft, lax, Normal bowel sounds, Non tender Skin : Warm, Dry, periorbital bruise on the right side, multiple bruises around knees both lower extremities Neurological : Alert & oriented x3, No focal deficit Objective Data Active Medications Acetaminophen (Acetaminophen 325 Mg Tablet) 650 mg PO Q6H PRN PRN Reason: Pain, Mild (Pain Scale 1-3) Albuterol Sulfate (Albuterol Sulfate 90 Mcg 8 Gm Inhaler) 2 puff INHALE Q6H PRN PRN Reason: shortness of breath or wheezing Atorvastatin Calcium (Atorvastatin Calcium 40 Mg Tablet) 40 mg PO BEDTIME [facility] Last Admin: 07/19/22 23:28 Dose: 40 mg Documented By: CESILIA Calcitriol (Calcitriol 0.25 Mcg Capsule) 0.5 mcg PO MoWeFr@0900 [facility] Cyanocobalamin (Cyanocobalamin (Vitamin B-12) 1,000 Mcg/Ml Vial) 1,000 mcg IM Q28D [facility] Dextrose (Dextrose 50 % 25 Gm/50 Ml Syringe) 25 gm IVPUSH Q15M PRN; Protocol PRN Reason: per Hypoglycemia Standing Ord. Dronedarone (Dronedarone Hcl 400 Mg Tablet) 400 mg PO BID [facility] Last Admin: 07/20/22 08:13 Dose: 400 mg Documented By: MARYANN Ferrous Sulfate (Ferrous Sulfate 324 Mg Tablet.Dr) 324 mg PO DAILY [facility] Last Admin: 07/20/22 08:13 Dose: 324 mg Documented By: MARYANN Fluticasone/Vilanterol (Fluticasone/Vilanterol 100/25 Blst.W.Dev) 1 puff INHALE RDAILY [facility] Last Admin: 07/20/22 07:43 Dose: Not Given Documented By: NAKIARICC Non-Admin Reason: Med Not Available Gabapentin (Gabapentin 100 Mg Capsule) 100 mg PO BID [facility] Last Admin: 07/20/22 08:13 Dose: 100 mg Documented By: MARYANN Glucose (Glucose Gel 15 Gm Gel..Gram.) 15 gm PO Q15M PRN; Protocol PRN Reason: per Hypoglycemia Standing Ord. Hydralazine HCl (Hydralazine Hcl 25 Mg Tablet) 25 mg PO TID [facility]; Protocol Last Admin: 07/20/22 08:13 Dose: 25 mg Documented By: MARYANN Insulin Glargine (Insulin Glargine,Hum.Rec.Anlog 100 Unit/Ml 10 Ml Vial) 6 unit SUBCUT BEDTIME [facility] Last Admin: 07/20/22 08:21 Dose: 6 unit Documented By: MARYANN Insulin Human Lispro (Insulin Lispro 100 Unit/Ml 3 Ml Vial) 0 unit SUBCUT QIDACHS [facility]; Protocol Last Admin: 07/20/22 11:23 Dose: Not Given Documented By: MARYANN Non-Admin Reason: Off unit: Dialysis Levothyroxine Sodium (Levothyroxine Sodium 25 Mcg Tablet) 25 mcg PO DAILY@0600 [facility] Last Admin: 07/20/22 04:47 Dose: Not Given Documented By: MARIANA Non-Admin Reason: NPO Lidocaine (Lidocaine 4 % Patch Adh..Patch) 1 patch TRANSDERMA DAILY [facility] Last Admin: 07/20/22 08:22 Dose: 1 patch Documented By: MARYANN Loratadine (Loratadine 10 Mg Tablet) 10 mg PO DAILY [facility] Last Admin: 07/20/22 08:13 Dose: 10 mg Documented By: MARYANN Metoprolol Tartrate (Metoprolol Tartrate 25 Mg Tablet) 25 mg PO BID [facility]; Protocol Last Admin: 07/20/22 08:13 Dose: 25 mg Documented By: MARYANN Montelukast Sodium (Montelukast Sodium 10 Mg Tablet) 10 mg PO BEDTIME [facility] Last Admin: 07/19/22 23:29 Dose: 10 mg Documented By: CESILIA Pantoprazole Sodium (Pantoprazole Sodium 40 Mg/10 Ml Vial) 40 mg IVPUSH BID@0630,1630 [facility] Last Admin: 07/20/22 04:47 Dose: Not Given Documented By: MARIANA Non-Admin Reason: NPO Pharmacy Consult (Consult Rx Perform Med Rec) 1 each MISCELLANE ONCE PRN PRN Reason: Consult order Sevelamer Carbonate (Sevelamer Carbonate Tablet 800 Mg Tablet) 800 mg PO TIDWM [facility] Last Admin: 07/20/22 11:23 Dose: Not Given Documented By: MARYANN Non-Admin Reason: Off unit: Dialysis Sodium Chloride (0.9 % Sodium Chloride Flush 3 Ml Syringe) 3 ml IVFLUSH QSHIFT [facility] Last Admin: 07/20/22 08:13 Dose: 3 ml Documented By: MARYANN Labs 07/20/22 06:33 07/20/22 06:33 Labs: Laboratory Results - last 24 hr 07/19/22 07/19/22 07/19/22 12:14 12:15 13:20 MCV 102.5 H MCH 31.9 MCHC 31.1 RDW 15.6 Plt Count 145 L MPV 10.5 Immature Gran % (Auto) 0.2 Neut % (Auto) 64.1 Lymph % (Auto) 18.1 L [place] % (Auto) 11.2 H Eos % (Auto) 5.6 H Baso % (Auto) 0.8 Lymph # (Auto) 1.1 L [place] # (Auto) 0.7 Eos # (Auto) 0.4 Baso # (Auto) 0.1 Abs Immat Gran (auto) 0.01 Absolute Neuts (auto) 4.0 Absolute Nucleated RBC 0.000 Nucleated RBC % (auto) 0.0 PT 22.0 H INR 1.9 H Anion Gap Estim Creat Clear Calc Estimated GFR POC Glucose Random Glucose Calcium Iron TIBC % Saturation Unsat Iron Binding Ferritin Total Bilirubin AST ALT Alkaline Phosphatase Troponin I High Sens 20.6 H D Total Protein Albumin Stool Occult Blood COVID-19 ([facility]) COVID-19 Clin Com 07/19/22 07/19/22 07/19/22 13:20 15:48 17:11 MCV MCH MCHC RDW Plt Count MPV Immature Gran % (Auto) Neut % (Auto) Lymph % (Auto) [place] % (Auto) Eos % (Auto) Baso % (Auto) Lymph # (Auto) [place] # (Auto) Eos # (Auto) Baso # (Auto) Abs Immat Gran (auto) Absolute Neuts (auto) Absolute Nucleated RBC Nucleated RBC % (auto) PT INR Anion Gap 15 Estim Creat Clear Calc 13.8 Estimated GFR 13 POC Glucose 105 Random Glucose 58 L* Calcium 8.2 L Iron 90 TIBC 227 L % Saturation 40 Unsat Iron Binding 137 Ferritin 1501 H Total Bilirubin 0.6 AST 20 ALT 15 Alkaline Phosphatase 120 H Troponin I High Sens Total Protein 6.0 L Albumin 3.5 Stool Occult Blood POSITIVE COVID-19 ([facility]NA) COVID-19 [employer] 07/19/22 07/19/22 07/19/22 19:08 20:10 23:36 MCV MCH MCHC RDW Plt Count MPV Immature Gran % (Auto) Neut % (Auto) Lymph % (Auto) [place] % (Auto) Eos % (Auto) Baso % (Auto) Lymph # (Auto) [place] # (Auto) Eos # (Auto) Baso # (Auto) Abs Immat Gran (auto) Absolute Neuts (auto) Absolute Nucleated RBC Nucleated RBC % (auto) PT INR Anion Gap Estim Creat Clear Calc Estimated GFR POC Glucose 272 H 188 H Random Glucose Calcium Iron TIBC % Saturation Unsat Iron Binding Ferritin Total Bilirubin AST ALT Alkaline Phosphatase Troponin I High Sens Total Protein Albumin Stool Occult Blood COVID-19 ([facility]) Negative COVID-19 [employer] Com See Note 07/20/22 07/20/22 07/20/22 06:33 06:33 07:35 MCV 101.1 H MCH 32.0 MCHC 31.6 RDW 15.6 Plt Count 139 L MPV 11.8 Immature Gran % (Auto) Neut % (Auto) Lymph % (Auto) [place] % (Auto) Eos % (Auto) Baso % (Auto) Lymph # (Auto) [place] # (Auto) Eos # (Auto) Baso # (Auto) Abs Immat Gran (auto) Absolute Neuts (auto) Absolute Nucleated RBC 0.000 Nucleated RBC % (auto) 0.0 PT INR Anion Gap 22 H Estim Creat Clear Calc 11.0 Estimated GFR 10 POC Glucose 89 Random Glucose 86 Calcium 8.0 L Iron TIBC % Saturation Unsat Iron Binding Ferritin Total Bilirubin AST ALT Alkaline Phosphatase Troponin I High Sens Total Protein Albumin Stool Occult Blood COVID-19 ([facility]) COVID-19 Clin Com 07/20/22 10:49 MCV MCH MCHC RDW Plt Count MPV Immature Gran % (Auto) Neut % (Auto) Lymph % (Auto) [place] % (Auto) Eos % (Auto) Baso % (Auto) Lymph # (Auto) [place] # (Auto) Eos # (Auto) Baso # (Auto) Abs Immat Gran (auto) Absolute Neuts (auto) Absolute Nucleated RBC Nucleated RBC % (auto) PT INR Anion Gap Estim Creat Clear Calc Estimated GFR POC Glucose 154 H Random Glucose Calcium Iron TIBC % Saturation Unsat Iron Binding Ferritin Total Bilirubin AST ALT Alkaline Phosphatase Troponin I High Sens Total Protein Albumin Stool Occult Blood COVID-19 ([facility]) COVID-19 Clin Com Assessment and Plan (1) ESRD (end stage renal disease): Status: Acute (2) Melena: Status: Acute (3) Anemia: Status: Acute Plan Pt is a 76-year-old female with a PMH significant for end-stage renal disease on dialysis, asthma/COPD overlap, paroxysal atrial fibrillation on Eliquis, anxiety, insulin-dependent DM 2 with polyneuropathy, anemia of chronic disease, CHF, hypothyroidism, HLD, and thrombosis of the jugular vein who presents to the ED after a mechanical fall yesterday who also complains of black diarrhea x7 days and left lower quadrant abdominal pain x5 days.. Pt will be admitted to the hospital on telemetry for treatment and additional workup for symptomatic anemia likely secondary to GI bleed. # Melena # chronic anemia d/t ESRD and GI bleed Hemoglobin dropped to 8.7 this morning, baseline around 9 Stool positive for occult blood Transfuse if drops below 8 Reported Black diarrhea x7 days Hold Eliquis Continue Protonix IV bid GI input appreciated, monitor H and H, consider outpatient upper and lower endoscopies unless she has bleeding while in house or major drop in hemoglobin Monitor and telemetry Paroxysmal AFib EKG shows patient currently in sinus rhythm with first-degree heart block Continue metoprolol Hold Eliquis End stage renal disease on dialysis Patient receives dialysis on Tuesdays, , and Saturdays Nephrology consult, to do dialysis today Insulin-dependent diabetes mellitus Hold home meds Suhas KELLEY Asthma/COPD overlap syndrome Not in acute exacerbation Continue home inhalers Monitor respiratory status DVT Prophylaxis: Pneumatic boots Pt will require a hospitalization overnight for treatment of and additional workup for acute blood loss anemia pending repeat labs and possible GI procedure Time Spent With Patient Time: Total time managing care of this patient today ____ minutes. Quality Stroke Does the patient have a stroke diagnosis?: No VTE Prior VTE?: No VTE Risk Level:: Medical - moderate - high VTE Device Contraindication: N/A - Device Ordered VTE Drug Contraindication: Treatment Not Indicated
[2022-07-20 15:30] LABS: Glucose, Whole Blood 145 mg/dL (60-115)
[2022-07-20] MEDS: Pantoprazole Sodium 40 MG/10 ML VIAL IVPUSH (18:17)
[2022-07-20 19:33] LABS: Glucose, Whole Blood 217 mg/dL (60-115)
[2022-07-20] MEDS: Montelukast Sodium 10 MG TABLET PO (20:12)
[2022-07-20] MEDS: Insulin Lispro 100 UNIT/ML 3 ML VIAL SUBCUT (20:13)
[2022-07-20] MEDS: Atorvastatin Calcium 40 MG TABLET PO (20:13)
[2022-07-20] MEDS: Fluticasone Propionate Nasal 16 GM SPRAY 1 SPRAY NOSTRIL-B (21:01)
[2022-07-20 22:32] LABS: Hematocrit 28.3 % (37.0-47.0); Hemoglobin 8.9 g/dl (12.0-16.0)
[2022-07-20 22:44] LABS: INTERNATIONAL NORM RATIO 1.4 (0.9-1.1); Prothrombin Time 16.4 SEC (10.0-13.1)
--- NOTE | 2022-07-20 23:24 | PM.EVENT ---
Event Note Date of Service: 07/20/22 Event Note: pt with multiple bloody bowek movements. vitals stable. H&H stable. will make npo. GI on consult Time Spent With Patient Time: Total time managing care of this patient today ____ minutes.
--- NOTE | 2022-07-20 23:49 | PC.NURSE ---
multiple maroon 's tonight , DR Travis was notified, H/H done ,Pt NPO now
[2022-07-21] MEDS: 0.9 % Sodium Chloride Flush 3 ML SYRINGE IVFLUSH ×4 (01:08→23:50)
[2022-07-21 04:00] VITALS: PULSE 72; RESP 20; TEMP 36.7; O2SAT 96
[2022-07-21] MEDS: Levothyroxine Sodium 25 MCG TABLET PO (05:36)
[2022-07-21] MEDS: Pantoprazole Sodium 40 MG/10 ML VIAL IVPUSH ×2 (05:36→17:17)
[2022-07-21 06:20] LABS: Hematocrit 27.7 % (37.0-47.0); Hemoglobin 8.7 g/dl (12.0-16.0); Mean Corpuscular HGB Conc 31.4 g/dl (31.0-35.0); Mean Corpuscular Hemoglobin 31.5 pg (27.0-33.0); Mean Corpuscular Volume 100.4 fL (80.0-98.0); Mean Platelet Volume 11.1 fL (9.4-12.3); Platelet Count 147 X10*3/uL (160-400); Red Blood Count 2.76 X10*6/uL (4.20-5.50); Red Cell Distribution Width 15.5 % (11.0-16.0); White Blood Count 6.2 X10*3/uL (4.8-10.8)
[2022-07-21 07:32] LABS: Glucose, Whole Blood 124 mg/dL (60-115)
[2022-07-21] MEDS: Fluticasone/Vilanterol 100/25 BLST.W.DEV 1 PUFF INHALE (07:38)
[2022-07-21 07:39] VITALS: PULSE 83; RESP 18; O2SAT 94
[2022-07-21 08:00] VITALS: BP 137/67; PULSE 62; RESP 20; TEMP 36.8; O2SAT 96
[2022-07-21] MEDS: Lidocaine 4 % Patch ADH..PATCH 1 PATCH TRANSDERMA (09:42)
[2022-07-21] MEDS: Ferrous Sulfate 324 MG TABLET.DR PO (09:42)
[2022-07-21] MEDS: Metoprolol Tartrate 25 MG TABLET PO ×2 (09:42→20:17)
[2022-07-21] MEDS: hydrALAZINE HCl 25 MG TABLET PO ×3 (09:42→20:17)
[2022-07-21] MEDS: Sevelamer Carbonate Tablet 800 MG TABLET PO ×3 (09:42→17:20)
[2022-07-21] MEDS: Gabapentin 100 MG CAPSULE PO ×2 (09:42→20:17)
[2022-07-21] MEDS: Dronedarone HCl 400 MG TABLET PO ×2 (09:42→20:17)
[2022-07-21] MEDS: Loratadine 10 MG TABLET PO (09:43)
[2022-07-21] MEDS: Fluticasone Propionate Nasal 16 GM SPRAY 1 SPRAY NOSTRIL-B ×2 (09:43→20:21)
[2022-07-21 11:05] LABS: Glucose, Whole Blood 164 mg/dL (60-115)
[2022-07-21 11:32] VITALS: BP 140/77; PULSE 63; RESP 16; TEMP 36.5; O2SAT 92
--- NOTE | 2022-07-21 12:06 | P.PNGI_ITS ---
Subjective Subjective Date of Service: 07/21/22 Critical Care Time (minutes): 0 Comment: Pt seen and evaluated at bedside with the help of packing house laborer. Son also in attendance. Reports no abd pain but c/o multiple stools overnight. Son also reports that she has been having frequent black/maroon stools for almost a year now. Has frequent fecal incontinence as stools are mostly soft/loose. In fact, tells me that she fell because she tripped on her stool after having an accident at home. Physical Exam 2 Vital Signs: Vital Signs: Last Vital Signs Temp 97.7 F 07/21/22 11:32 Pulse 63 07/21/22 11:32 Resp 16 07/21/22 11:32 BP 140/77 H 07/21/22 11:32 Pulse Ox 92 07/21/22 11:32 O2 Del Method 07/21/22 11:32 BMI result Body Mass Index 35.2 Gen appear: NAD, R periorbital echymosis Abd: soft, mildly distended, nontender Rectal: No ext hemorrhoids. maroon stool on gloved finger Objective Data Labs 07/21/22 05:57 07/20/22 06:33 Labs: Laboratory Results - last 24 hr 07/20/22 07/20/22 07/20/22 15:19 19:24 22:14 WBC RBC Hgb 8.9 L Hct 28.3 L MCV MCH MCHC RDW Plt Count MPV Absolute Nucleated RBC Nucleated RBC % (auto) PT INR POC Glucose 145 H 217 H 07/20/22 07/21/22 07/21/22 22:14 05:57 07:26 WBC 6.2 RBC 2.76 L Hgb 8.7 L Hct 27.7 L MCV 100.4 H MCH 31.5 MCHC 31.4 RDW 15.5 Plt Count 147 L MPV 11.1 Absolute Nucleated RBC 0.000 Nucleated RBC % (auto) 0.0 PT 16.4 H INR 1.4 H POC Glucose 124 H 07/21/22 11:00 WBC RBC Hgb Hct MCV MCH MCHC RDW Plt Count MPV Absolute Nucleated RBC Nucleated RBC % (auto) PT INR POC Glucose 164 H Procedures Date of Service Date of Service: 07/21/22 Progress Note: A&P Assessment and plan (1) Chronic anticoagulation: Status: Acute (2) GI bleeding: Status: Acute (3) Anemia: Status: Acute (4) Osteopenia: Status: Acute (5) ESRD on dialysis: Status: Acute Plan Ddx for maroon stools include small bowel vs colon bleed. Possible etiologies include large friable polyps, AVMs, mass. Plan: - Will plan for EGD/colonoscopy tomorrow - Cont to hold Eliquis (last dose was 12 AM) - Clear liquids today, NPO after midnight - GoLYTELY ordered Time Spent With Patient Time: Total time managing care of this patient today ____ minutes. Quality Stroke Does the patient have a stroke diagnosis?: No VTE Prior VTE?: No VTE Risk Level:: Medical - moderate - high VTE Device Contraindication: N/A - Device Ordered VTE Drug Contraindication: Treatment Not Indicated
[2022-07-21] MEDS: Insulin Lispro 100 UNIT/ML 3 ML VIAL SUBCUT ×3 (12:10→20:17)
[2022-07-21] MEDS: Cyanocobalamin (Vitamin B-12) 1,000 MCG/ML VIAL 1000 MCG IM (12:10)
--- NOTE | 2022-07-21 14:46 | HO.PM.IMPN ---
Subjective Subjective Date of Service: 07/21/22 Interval History: the patient was seen and evaluated this morning Laying in bed, feels weak and tired had 4 episodes of bloody BM overnight Hemoglobin remained stable with no major drop No reported other overnight events. Review of Systems Review of Systems: Yes all other systems are reviewed and are negative Physical Exam Vital Signs: Vital Signs: Last Vital Signs Temp 97.7 F 07/21/22 11:32 Pulse 63 07/21/22 11:32 Resp 16 07/21/22 11:32 BP 140/77 H 07/21/22 11:32 Pulse Ox 92 07/21/22 11:32 O2 Del Method 07/21/22 11:32 BMI result Body Mass Index 35.2 Const: Other: Constitutional : Awake, interactive, not in distress Neck : Normal inspection, Supple Cardiovascular : RRR, no JVP, no lower extremity edema Respiratory : good bilateral air entry, no crackles, wheezes or rhonchi Gastrointestinal: soft, lax, Normal bowel sounds, Non tender Skin : Warm, Dry, periorbital bruise on the right side, multiple bruises around knees both lower extremities Neurological : Alert & oriented x3, No focal deficit Objective Data Active Medications Acetaminophen (Acetaminophen 325 Mg Tablet) 650 mg PO Q6H PRN PRN Reason: Pain, Mild (Pain Scale 1-3) Albuterol Sulfate (Albuterol Sulfate 90 Mcg 8 Gm Inhaler) 2 puff INHALE Q6H PRN PRN Reason: shortness of breath or wheezing Atorvastatin Calcium (Atorvastatin Calcium 40 Mg Tablet) 40 mg PO BEDTIME [facility] Last Admin: 07/20/22 20:13 Dose: 40 mg Documented By: JENNY Calcitriol (Calcitriol 0.25 Mcg Capsule) 0.5 mcg PO MoWeFr@0900 [facility] Cyanocobalamin (Cyanocobalamin (Vitamin B-12) 1,000 Mcg/Ml Vial) 1,000 mcg IM Q28D [facility] Last Admin: 07/21/22 12:10 Dose: 1,000 mcg Documented By: MARYANN Dextrose (Dextrose 50 % 25 Gm/50 Ml Syringe) 25 gm IVPUSH Q15M PRN; Protocol PRN Reason: per Hypoglycemia Standing Ord. Dronedarone (Dronedarone Hcl 400 Mg Tablet) 400 mg PO BID [facility] Last Admin: 07/21/22 09:42 Dose: 400 mg Documented By: MARYANN Ferrous Sulfate (Ferrous Sulfate 324 Mg Tablet.Dr) 324 mg PO DAILY [facility] Last Admin: 07/21/22 09:42 Dose: 324 mg Documented By: MARYANN Fluticasone Propionate (Fluticasone Propionate Nasal 16 Gm [place]) 1 spray NOSTRIL-B BID [facility] Last Admin: 07/21/22 09:43 Dose: 1 spray Documented By: MARYANN Fluticasone/Vilanterol (Fluticasone/Vilanterol 100/25 Blst.W.Dev) 1 puff INHALE RDAILY [facility] Last Admin: 07/21/22 07:38 Dose: 1 puff Documented By: NADEEN Gabapentin (Gabapentin 100 Mg Capsule) 100 mg PO BID [facility] Last Admin: 07/21/22 09:42 Dose: 100 mg Documented By: MARYANN Glucose (Glucose Gel 15 Gm Gel..Gram.) 15 gm PO Q15M PRN; Protocol PRN Reason: per Hypoglycemia Standing Ord. Hydralazine HCl (Hydralazine Hcl 25 Mg Tablet) 25 mg PO TID [facility]; Protocol Last Admin: 07/21/22 09:42 Dose: 25 mg Documented By: MARYANN Insulin Glargine (Insulin Glargine,Hum.Rec.Anlog 100 Unit/Ml 10 Ml Vial) 6 unit SUBCUT BEDTIME [facility] Last Admin: 07/20/22 20:13 Dose: Not Given Documented By: JENNY Non-Admin Reason: Previously Administered Insulin Human Lispro (Insulin Lispro 100 Unit/Ml 3 Ml Vial) 0 unit SUBCUT QIDACHS [facility]; Protocol Last Admin: 07/21/22 12:10 Dose: 2 unit Documented By: MARYANN Levothyroxine Sodium (Levothyroxine Sodium 25 Mcg Tablet) 25 mcg PO DAILY@0600 [facility] Last Admin: 07/21/22 05:36 Dose: 25 mcg Documented By: BLAKE Lidocaine (Lidocaine 4 % Patch Adh..Patch) 1 patch TRANSDERMA DAILY [facility] Last Admin: 07/21/22 09:42 Dose: 1 patch Documented By: MARYANN Loratadine (Loratadine 10 Mg Tablet) 10 mg PO DAILY [facility] Last Admin: 07/21/22 09:43 Dose: 10 mg Documented By: MARYANN Metoprolol Tartrate (Metoprolol Tartrate 25 Mg Tablet) 25 mg PO BID [facility]; Protocol Last Admin: 07/21/22 09:42 Dose: 25 mg Documented By: MARYANN Montelukast Sodium (Montelukast Sodium 10 Mg Tablet) 10 mg PO BEDTIME [facility] Last Admin: 07/20/22 20:12 Dose: 10 mg Documented By: JENNY Pantoprazole Sodium (Pantoprazole Sodium 40 Mg/10 Ml Vial) 40 mg IVPUSH BID@0630,1630 [facility] Last Admin: 07/21/22 05:36 Dose: 40 mg Documented By: BLAKE Pharmacy Consult (Consult Rx Perform Med Rec) 1 each MISCELLANE ONCE PRN PRN Reason: Consult order Polyethylene Glycol/Electrolytes (Peg 3350/Na Sulf,Bicarb,Cl/Kcl 4,000 Ml Soln.Recon) 4,000 ml PO ONCE ONE Stop: 07/21/22 15:31 Sevelamer Carbonate (Sevelamer Carbonate Tablet 800 Mg Tablet) 800 mg PO TIDWM [facility] Last Admin: 07/21/22 12:10 Dose: 800 mg Documented By: MARYANN Sodium Chloride (0.9 % Sodium Chloride Flush 3 Ml Syringe) 3 ml IVFLUSH QSHIFT [facility] Last Admin: 07/21/22 09:43 Dose: 3 ml Documented By: MARYANN Labs 07/21/22 05:57 07/20/22 06:33 Labs: Laboratory Results - last 24 hr 07/20/22 07/20/22 07/20/22 15:19 19:24 22:14 MCV MCH MCHC RDW Plt Count MPV Absolute Nucleated RBC Nucleated RBC % (auto) PT 16.4 H INR 1.4 H POC Glucose 145 H 217 H 07/21/22 07/21/22 07/21/22 05:57 07:26 11:00 MCV 100.4 H MCH 31.5 MCHC 31.4 RDW 15.5 Plt Count 147 L MPV 11.1 Absolute Nucleated RBC 0.000 Nucleated RBC % (auto) 0.0 PT INR POC Glucose 124 H 164 H Assessment and Plan (1) ESRD (end stage renal disease): Status: Acute (2) Melena: Status: Acute (3) GI bleeding: Status: Acute Plan Pt is a 76-year-old female with a PMH significant for end-stage renal disease on dialysis, asthma/COPD overlap, paroxysal atrial fibrillation on Eliquis, anxiety, insulin-dependent DM 2 with polyneuropathy, anemia of chronic disease, CHF, hypothyroidism, HLD, and thrombosis of the jugular vein who presents to the ED after a mechanical fall yesterday who also complains of black diarrhea x7 days and left lower quadrant abdominal pain x5 days.. Pt will be admitted to the hospital on telemetry for treatment and additional workup for symptomatic anemia likely secondary to GI bleed. # Melena # chronic anemia d/t ESRD and GI bleed Hemoglobin dropped to 8.7 this morning, baseline around 9 Stool positive for occult blood Transfuse if drops below 8 Hold Eliquis Continue Protonix IV bid GI input appreciated, for upper and lower endoscopies tomorrow keep npo post midnight Monitor and telemetry Paroxysmal AFib EKG shows patient currently in sinus rhythm with first-degree heart block Continue metoprolol Hold Eliquis End stage renal disease on dialysis Patient receives dialysis on TTS Nephrology consult, to do dialysis as scheduled Insulin-dependent diabetes mellitus Hold home meds SSI, Lantus Asthma/COPD overlap syndrome Not in acute exacerbation Continue home inhalers Monitor respiratory status DVT Prophylaxis: Pneumatic boots Pt will require a hospitalization overnight for treatment of and additional workup for acute blood loss anemia pending repeat labs and GI procedure Time Spent With Patient Time: Total time managing care of this patient today ____ minutes. Quality Stroke Does the patient have a stroke diagnosis?: No VTE Prior VTE?: No VTE Risk Level:: Medical - moderate - high VTE Device Contraindication: N/A - Device Ordered VTE Drug Contraindication: Treatment Not Indicated
[2022-07-21 15:58] LABS: Glucose, Whole Blood 161 mg/dL (60-115)
[2022-07-21 16:00] VITALS: BP 140/76; PULSE 62; RESP 19; TEMP 36.8; O2SAT 96
[2022-07-21] MEDS: PEG 3350/Na Sulf,Bicarb,Cl/KCL 4,000 ML SOLN.RECON 4000 ML PO (17:17)
[2022-07-21 19:22] VITALS: BP 148/65; PULSE 73; RESP 19; TEMP 36.7; O2SAT 99
[2022-07-21 19:47] LABS: Glucose, Whole Blood 230 mg/dL (60-115)
[2022-07-21] MEDS: Insulin Glargine,Hum.rec.anlog 100 UNIT/ML 10 ML VIAL 6 UNIT SUBCUT (20:17)
[2022-07-21] MEDS: Atorvastatin Calcium 40 MG TABLET PO (20:17)
[2022-07-21] MEDS: Montelukast Sodium 10 MG TABLET PO (20:17)
[2022-07-22] VITALS (14 sets, daily range): BP systolic 96–187; BP diastolic 34–81; PULSE 53–70; RESP 15–20; TEMP 36–36.9; O2SAT 95–100
[2022-07-22] MEDS: Pantoprazole Sodium 40 MG/10 ML VIAL IVPUSH ×2 (04:57→17:44)
[2022-07-22 07:10] LABS: Hematocrit 31.9 % (37.0-47.0); Hemoglobin 10.2 g/dl (12.0-16.0); Mean Corpuscular Hemoglobin 31.4 pg (27.0-33.0); Mean Corpuscular Volume 98.2 fL (80.0-98.0); Platelet Count 132 X10*3/uL (160-400); Red Blood Count 3.25 X10*6/uL (4.20-5.50); Red Cell Distribution Width 15.6 % (11.0-16.0); White Blood Count 6.4 X10*3/uL (4.8-10.8)
[2022-07-22 07:50] LABS: Glucose, Whole Blood 124 mg/dL (60-115)
[2022-07-22] MEDS: Fluticasone/Vilanterol 100/25 BLST.W.DEV 1 PUFF INHALE (07:52)
[2022-07-22] MEDS: hydrALAZINE HCl 25 MG TABLET PO ×2 (09:08→23:27)
[2022-07-22] MEDS: Metoprolol Tartrate 25 MG TABLET PO ×2 (09:08→23:27)
[2022-07-22] MEDS: Gabapentin 100 MG CAPSULE PO ×2 (09:08→23:26)
[2022-07-22] MEDS: 0.9 % Sodium Chloride Flush 3 ML SYRINGE IVFLUSH ×2 (09:09→23:29)
[2022-07-22] MEDS: Ferrous Sulfate 324 MG TABLET.DR PO (09:09)
[2022-07-22] MEDS: Loratadine 10 MG TABLET PO (09:09)
[2022-07-22] MEDS: Lidocaine 4 % Patch ADH..PATCH 1 PATCH TRANSDERMA (09:13)
[2022-07-22] MEDS: Fluticasone Propionate Nasal 16 GM SPRAY 1 SPRAY NOSTRIL-B (09:16)
--- NOTE | 2022-07-22 10:36 | P.PNNP_ITS ---
Subjective Subjective Date of Service: 07/23/22 Interval history: Events noted Physical Exam Vital Signs: Vital Signs: Last Vital Signs Temp 98.4 F 07/22/22 07:38 Pulse 70 07/22/22 09:00 Resp 20 07/22/22 07:53 BP 180/78 H 07/22/22 09:00 Pulse Ox 98 07/22/22 07:38 O2 Del Method 07/22/22 07:38 BMI result Body Mass Index 35.2 Const: General: alert and awake HEENT: Head: Yes normocephalic Neck: Neck: Yes supple Resp: Auscultation: diminished lung sounds Cardio: Heart sounds: S1 normal heart sound present and S2 normal heart sound present GI: Palpation (GI): Soft to palpation and nontender Extrem: General: Yes edema Objective Data Labs 07/22/22 06:27 07/20/22 06:33 Labs: Laboratory Results - last 24 hr 07/21/22 07/21/22 07/21/22 11:00 15:53 19:15 WBC RBC Hgb Hct MCV MCH MCHC RDW Plt Count MPV Absolute Nucleated RBC Nucleated RBC % (auto) POC Glucose 164 H 161 H 230 H 07/22/22 07/22/22 06:27 07:44 WBC 6.4 RBC 3.25 L Hgb 10.2 L Hct 31.9 L MCV 98.2 H MCH 31.4 MCHC 32.0 RDW 15.6 Plt Count 132 L MPV 12.0 Absolute Nucleated RBC 0.000 Nucleated RBC % (auto) 0.0 POC Glucose 124 H Procedures Date of Service Date of Service: 07/22/22 Assessment & Plan Assessment and plan (1) ESRD (end stage renal disease): Status: Acute (2) GI bleeding: Status: Acute (3) Anemia: Status: Acute Plan ESRD no s/s of uremia usually has HD t-t-s at [facility] unit GIB/Anemia REC HD TTS optimize volume status follow h/h blood transfusion as needed IV protonix GI consult DARA renal diet phosphate binders Time Spent With Patient Time: Total time managing care of this patient today ____ minutes. Progress Note: Quality Stroke Does the patient have a stroke diagnosis?: No
--- NOTE | 2022-07-22 11:25 | MHC.CDI.CONC ---
CDI Concurrent Query Documentation Clarification: PHYSICIAN'S DOCUMENTATION REQUEST Date of Query: 07/22/22 1126 Patient Name: Carolina Atkins Admit Date: 07/19/22 Dear Doctor, A review of the medical record indicates additional documentation may be needed. Please review below and update the documentation accordingly. Clinical Indicators: Possible, suspected, probable: Risk Factors/Clinical Indicators/Treatments PN: Melena, chronic anemia d/t ESRD and GI bleed Hemoglobin dropped to 8.7, baseline around 9. Stool positive for occult blood Hold Eliquis GI consult: Chronic anticoagulation Based on the above, could you clarify in the Progress Notes the appropriate diagnosis, if significant, that supports the above abnormalities and additional evaluation, monitoring, and/or treatment rendered: Anemia (blood loss) due to Chronic anticoagulation (Eliquis) Anemia (acute blood loss) due to other etiology Other (please specify) Unable to determine Use of terms such as suspected, likely, concern for, or probable (associated with a specific diagnosis that is being evaluated, monitored, or treated as if it exists) are acceptable and can be coded in the inpatient setting, when documented at the time of discharge. Thank you, Jessi Frey [facility], CDIS Extension: [phone] Please use your independent medical judgment in providing your response. THIS QUERY IS PART OF THE PERMANENT MEDICAL RECORD Provider Response: Other Other Diagnosis: acute on chronic anemia d/t ESRD 2/2 melena
[2022-07-22 11:29] LABS: Glucose, Whole Blood 102 mg/dL (60-115)
--- NOTE | 2022-07-22 12:28 | MHC.CM.PN ---
per rounds pt not ready for dc pt to have an egd today
[2022-07-22] MEDS: hydrALAZINE HCl 20 MG/ML VIAL 10 MG IVPUSH (13:07)
--- NOTE | 2022-07-22 13:48 | HO.PM.IMPN ---
Subjective Subjective Date of Service: 07/22/22 Interval History: the patient was seen and evaluated this morning Laying in bed, feels weak and tired Elevated blood pressure this morning No reported episodes of bloody BM overnight Hemoglobin increased to 10 with no major drop No reported other overnight events. Physical Exam Vital Signs: Vital Signs: Last Vital Signs Temp 97.9 F 07/22/22 11:02 Pulse 62 07/22/22 11:02 Resp 18 07/22/22 11:02 BP 187/81 H 07/22/22 11:02 Pulse Ox 99 07/22/22 11:02 O2 Del Method 07/22/22 11:02 BMI result Body Mass Index 35.2 Const: Other: Constitutional : Awake, interactive, not in distress Neck : Normal inspection, Supple Cardiovascular : RRR, no JVP, no lower extremity edema Respiratory : good bilateral air entry, no crackles, wheezes or rhonchi Gastrointestinal: soft, lax, Normal bowel sounds, Non tender Skin : Warm, Dry, periorbital bruise on the right side, multiple bruises around knees both lower extremities Neurological : Alert & oriented x3, No focal deficit Objective Data Active Medications Acetaminophen (Acetaminophen 325 Mg Tablet) 650 mg PO Q6H PRN PRN Reason: Pain, Mild (Pain Scale 1-3) Albuterol Sulfate (Albuterol Sulfate 90 Mcg 8 Gm Inhaler) 2 puff INHALE Q6H PRN PRN Reason: shortness of breath or wheezing Atorvastatin Calcium (Atorvastatin Calcium 40 Mg Tablet) 40 mg PO BEDTIME [facility] Last Admin: 07/21/22 20:17 Dose: 40 mg Documented By: CARINE Calcitriol (Calcitriol 0.25 Mcg Capsule) 0.5 mcg PO MoWeFr@0900 [facility] Last Admin: 07/22/22 09:15 Dose: Not Given Documented By: ZOE Non-Admin Reason: No dialysis Cyanocobalamin (Cyanocobalamin (Vitamin B-12) 1,000 Mcg/Ml Vial) 1,000 mcg IM Q28D [facility] Last Admin: 07/21/22 12:10 Dose: 1,000 mcg Documented By: MARYANN Dextrose (Dextrose 50 % 25 Gm/50 Ml Syringe) 25 gm IVPUSH Q15M PRN; Protocol PRN Reason: per Hypoglycemia Standing Ord. Dronedarone (Dronedarone Hcl 400 Mg Tablet) 400 mg PO BID [facility] Last Admin: 07/22/22 09:15 Dose: Not Given Documented By: ZOE Non-Admin Reason: NPO Ferrous Sulfate (Ferrous Sulfate 324 Mg Tablet.Dr) 324 mg PO DAILY [facility] Last Admin: 07/22/22 09:09 Dose: 324 mg Documented By: ZOE Fluticasone Propionate (Fluticasone Propionate Nasal 16 Gm [place]) 1 spray NOSTRIL-B BID [facility] Last Admin: 07/22/22 09:16 Dose: 1 spray Documented By: ZOE Fluticasone/Vilanterol (Fluticasone/Vilanterol 100/25 Blst.W.Dev) 1 puff INHALE RDAILY [facility] Last Admin: 07/22/22 07:52 Dose: 1 puff Documented By: LAURA Gabapentin (Gabapentin 100 Mg Capsule) 100 mg PO BID [facility] Last Admin: 07/22/22 09:08 Dose: 100 mg Documented By: ZOE Glucose (Glucose Gel 15 Gm Gel..Gram.) 15 gm PO Q15M PRN; Protocol PRN Reason: per Hypoglycemia Standing Ord. Hydralazine HCl (Hydralazine Hcl 25 Mg Tablet) 25 mg PO TID [facility]; Protocol Last Admin: 07/22/22 09:08 Dose: 25 mg Documented By: ZOE Insulin Glargine (Insulin Glargine,Hum.Rec.Anlog 100 Unit/Ml 10 Ml Vial) 6 unit SUBCUT BEDTIME [facility] Last Admin: 07/21/22 20:17 Dose: 6 unit Documented By: CARINE Insulin Human Lispro (Insulin Lispro 100 Unit/Ml 3 Ml Vial) 0 unit SUBCUT QIDACHS [facility]; Protocol Last Admin: 07/22/22 12:17 Dose: Not Given Documented By: ZOE Non-Admin Reason: NPO Levothyroxine Sodium (Levothyroxine Sodium 25 Mcg Tablet) 25 mcg PO DAILY@0600 [facility] Last Admin: 07/22/22 04:45 Dose: Not Given Documented By: MAMADOU Non-Admin Reason: NPO Lidocaine (Lidocaine 4 % Patch Adh..Patch) 1 patch TRANSDERMA DAILY [facility] Last Admin: 07/22/22 09:13 Dose: 1 patch Documented By: ZOE Loratadine (Loratadine 10 Mg Tablet) 10 mg PO DAILY [facility] Last Admin: 07/22/22 09:09 Dose: 10 mg Documented By: ZOE Metoprolol Tartrate (Metoprolol Tartrate 25 Mg Tablet) 25 mg PO BID [facility]; Protocol Last Admin: 07/22/22 09:08 Dose: 25 mg Documented By: ZOE Montelukast Sodium (Montelukast Sodium 10 Mg Tablet) 10 mg PO BEDTIME [facility] Last Admin: 07/21/22 20:17 Dose: 10 mg Documented By: CARINE Pantoprazole Sodium (Pantoprazole Sodium 40 Mg/10 Ml Vial) 40 mg IVPUSH BID@0630,1630 [facility] Last Admin: 07/22/22 04:57 Dose: 40 mg Documented By: MAMADOU Pharmacy Consult (Consult Rx Perform Med Rec) 1 each MISCELLANE ONCE PRN PRN Reason: Consult order Sevelamer Carbonate (Sevelamer Carbonate Tablet 800 Mg Tablet) 800 mg PO TIDWM [facility] Last Admin: 07/22/22 12:17 Dose: Not Given Documented By: ZOE Non-Admin Reason: NPO Sodium Chloride (0.9 % Sodium Chloride Flush 3 Ml Syringe) 3 ml IVFLUSH QSHIFT [facility] Last Admin: 07/22/22 09:09 Dose: 3 ml Documented By: ZOE Labs 07/22/22 06:27 07/20/22 06:33 Labs: Laboratory Results - last 24 hr 07/21/22 07/21/22 07/22/22 15:53 19:15 06:27 MCV 98.2 H MCH 31.4 MCHC 32.0 RDW 15.6 Plt Count 132 L MPV 12.0 Absolute Nucleated RBC 0.000 Nucleated RBC % (auto) 0.0 POC Glucose 161 H 230 H 07/22/22 07/22/22 07:44 11:06 MCV MCH MCHC RDW Plt Count MPV Absolute Nucleated RBC Nucleated RBC % (auto) POC Glucose 124 H 102 Assessment and Plan (1) ESRD (end stage renal disease): Status: Acute (2) Melena: Status: Acute (3) GI bleeding: Status: Acute Plan Pt is a 76-year-old female with a PMH significant for end-stage renal disease on dialysis, asthma/COPD overlap, paroxysal atrial fibrillation on Eliquis, anxiety, insulin-dependent DM 2 with polyneuropathy, anemia of chronic disease, CHF, hypothyroidism, HLD, and thrombosis of the jugular vein who presents to the ED after a mechanical fall yesterday who also complains of black diarrhea x7 days and left lower quadrant abdominal pain x5 days.. Pt will be admitted to the hospital on telemetry for treatment and additional workup for symptomatic anemia likely secondary to GI bleed. # Melena # chronic anemia d/t ESRD and GI bleed Hemoglobin increased to 10 this morning Stool positive for occult blood Transfuse if drops below 8 Hold Eliquis Continue Protonix IV bid GI input appreciated, for upper and lower endoscopies Monitor and telemetry Paroxysmal AFib EKG shows patient currently in sinus rhythm with first-degree heart block Continue metoprolol Hold Eliquis End stage renal disease on dialysis Patient receives dialysis on TTS Nephrology consult, to do dialysis as scheduled Insulin-dependent diabetes mellitus Hold home meds SSI, Lantus Asthma/COPD overlap syndrome Not in acute exacerbation Continue home inhalers Monitor respiratory status DVT Prophylaxis: Pneumatic boots Pt will require a hospitalization overnight for treatment of and additional workup for acute blood loss anemia pending repeat labs and GI procedure Time Spent With Patient Time: Total time managing care of this patient today ____ minutes. Quality Stroke Does the patient have a stroke diagnosis?: No VTE Prior VTE?: No VTE Risk Level:: Medical - moderate - high VTE Device Contraindication: N/A - Device Ordered VTE Drug Contraindication: Treatment Not Indicated
--- NOTE | 2022-07-22 13:56 | P.CONAN_ITS ---
HPI - Anesthesia Eval Consult details Narrative: ugi,colonoscopy PMF Active Problems Active Problems: All Active Problems (Updated 07/20/22 @ 12:27 by Scarlet Santacruz MD) Chronic anticoagulation (Acute) ESRD (end stage renal disease) (Acute) Melena (Acute) GI bleeding (Acute) Anemia (Acute) Diarrhea (Acute) Osteopenia (Acute) ESRD on dialysis (Acute) Asthma-COPD overlap syndrome (Acute) Atrial fibrillation with rapid ventricular response (Acute) Menopause (Acute) Well woman exam (Acute) Weakness (Acute) Dyspnea (Acute) Pre-op chest exam (Acute) Cellulitis (Acute) SHIELA (generalized anxiety disorder) (Acute) Allergic rhinitis (Acute) Diabetes (Acute) Anemia (Acute) Thrombosis of right internal jugular vein (Acute) Basilic vein thrombosis (Acute) Pleural effusion (Acute) Atrial fibrillation with RVR (Acute) Acute exacerbation of CHF (congestive heart failure) (Acute) Hypoxia (Acute) Polyneuropathy (Acute) Pre-ulcerative calluses (Acute) Type 2 diabetes mellitus with polyneuropathy (Acute) Hammertoe (Acute) Cough (Acute) Encounter for screening colonoscopy (Acute) CHF (congestive heart failure) (Acute) Kidney transplant candidate (Acute) Hypothyroidism (Acute) Obesity (BMI 30-39.9) (Acute) Osteoarthritis (Acute) Pure hypercholesterolemia (Acute) Past Medical History Medical History Acute pericardial effusion Anemia Asthma-COPD overlap syndrome Benign essential hypertension CAD (coronary artery disease) Chronic kidney disease, stage 4 (severe) Dyspnea ESRD (end stage renal disease) ESRD on dialysis Fluid overload GERD (gastroesophageal reflux disease) Hemodialysis patient HLD (hyperlipidemia) Hypertension Hypothyroidism Iron deficiency Nephrotic range proteinuria Obesity (BMI 30-39.9) Osteoarthritis PAF (paroxysmal atrial fibrillation) PAF (paroxysmal atrial fibrillation) Paroxysmal atrial fibrillation Pernicious anemia Pure hypercholesterolemia Toe amputee Type 2 diabetes mellitus Family History Family history of problems with anesthesia: No Surgical History Surgical History Hx of appendectomy S/P arteriovenous (AV) fistula creation History of Problems with Anesthesia: No Social History Social History Household Members: Other Household Members [facility] Housing: Assisted Living Facility Do you presently have visiting nurse or other home services: Yes Alcohol intake: former Patient Tobacco Use Status: Never used Tobacco Smoked in Last 30 Days: No e-Cigarette/Vaping Use: Never Used Second Hand Smoke Exposure: No Use of substances other than those prescribed or required for medical reasons: No Currently Displaying Signs/Symptoms of Drug Intoxication Withdrawal: No Advance Directives: Yes Advance Directives on File: Yes Advance Directives Date on File: 04/10/22 service: No Current occupational status: retired and disabled Cognitive needs: Yes Hearing needs: No Vision needs: No Meds Allergies Allergy/AdvReac Type Severity Reaction Status Date / Time No Known Allergies Allergy Verified 06/26/22 12:42 Active Medications: Current Medications Acetaminophen (Acetaminophen 325 Mg Tablet) 650 mg PO Q6H PRN PRN Reason: Pain, Mild (Pain Scale 1-3) Albuterol Sulfate (Albuterol Sulfate 90 Mcg 8 Gm Inhaler) 2 puff INHALE Q6H PRN PRN Reason: shortness of breath or wheezing Atorvastatin Calcium (Atorvastatin Calcium 40 Mg Tablet) 40 mg PO BEDTIME [facility] Last Admin: 07/21/22 20:17 Dose: 40 mg Calcitriol (Calcitriol 0.25 Mcg Capsule) 0.5 mcg PO MoWeFr@0900 [facility] Last Admin: 07/22/22 09:15 Dose: Not Given Cyanocobalamin (Cyanocobalamin (Vitamin B-12) 1,000 Mcg/Ml Vial) 1,000 mcg IM Q28D [facility] Last Admin: 07/21/22 12:10 Dose: 1,000 mcg Dextrose (Dextrose 50 % 25 Gm/50 Ml Syringe) 25 gm IVPUSH Q15M PRN; Protocol PRN Reason: per Hypoglycemia Standing Ord. Dronedarone (Dronedarone Hcl 400 Mg Tablet) 400 mg PO BID [facility] Last Admin: 07/22/22 09:15 Dose: Not Given Ferrous Sulfate (Ferrous Sulfate 324 Mg Tablet.Dr) 324 mg PO DAILY [facility] Last Admin: 07/22/22 09:09 Dose: 324 mg Fluticasone Propionate (Fluticasone Propionate Nasal 16 Gm [place]) 1 spray NOSTRIL-B BID [facility] Last Admin: 07/22/22 09:16 Dose: 1 spray Fluticasone/Vilanterol (Fluticasone/Vilanterol 100/25 Blst.W.Dev) 1 puff INHALE RDAILY [facility] Last Admin: 07/22/22 07:52 Dose: 1 puff Gabapentin (Gabapentin 100 Mg Capsule) 100 mg PO BID [facility] Last Admin: 07/22/22 09:08 Dose: 100 mg Glucose (Glucose Gel 15 Gm Gel..Gram.) 15 gm PO Q15M PRN; Protocol PRN Reason: per Hypoglycemia Standing Ord. Hydralazine HCl (Hydralazine Hcl 25 Mg Tablet) 25 mg PO TID [facility]; Protocol Last Admin: 07/22/22 09:08 Dose: 25 mg Insulin Glargine (Insulin Glargine,Hum.Rec.Anlog 100 Unit/Ml 10 Ml Vial) 6 unit SUBCUT BEDTIME [facility] Last Admin: 07/21/22 20:17 Dose: 6 unit Insulin Human Lispro (Insulin Lispro 100 Unit/Ml 3 Ml Vial) 0 unit SUBCUT QIDACHS [facility]; Protocol Last Admin: 07/22/22 12:17 Dose: Not Given Levothyroxine Sodium (Levothyroxine Sodium 25 Mcg Tablet) 25 mcg PO DAILY@0600 [facility] Last Admin: 07/22/22 04:45 Dose: Not Given Lidocaine (Lidocaine 4 % Patch Adh..Patch) 1 patch TRANSDERMA DAILY [facility] Last Admin: 07/22/22 09:13 Dose: 1 patch Loratadine (Loratadine 10 Mg Tablet) 10 mg PO DAILY [facility] Last Admin: 07/22/22 09:09 Dose: 10 mg Metoprolol Tartrate (Metoprolol Tartrate 25 Mg Tablet) 25 mg PO BID [facility]; Protocol Last Admin: 07/22/22 09:08 Dose: 25 mg Montelukast Sodium (Montelukast Sodium 10 Mg Tablet) 10 mg PO BEDTIME [facility] Last Admin: 07/21/22 20:17 Dose: 10 mg Pantoprazole Sodium (Pantoprazole Sodium 40 Mg/10 Ml Vial) 40 mg IVPUSH BID@06 30,1630 [facility] Last Admin: 07/22/22 04:57 Dose: 40 mg Pharmacy Consult (Consult Rx Perform Med Rec) 1 each MISCELLANE ONCE PRN PRN Reason: Consult order Sevelamer Carbonate (Sevelamer Carbonate Tablet 800 Mg Tablet) 800 mg PO TIDWM [facility] Last Admin: 07/22/22 12:17 Dose: Not Given Sodium Chloride (0.9 % Sodium Chloride Flush 3 Ml Syringe) 3 ml IVFLUSH QSHIFT [facility] Last Admin: 07/22/22 09:09 Dose: 3 ml Home Medications Medication Instructions Recorded Confirmed Last Taken Type insulin lispro 100 unit/mL 2 - 10 unit subcut QIDACHS 04/15/22 07/19/22 Unknown History subcutaneous pen acetaminophen 325 mg tablet 325 mg PO Q6H PRN Mild Pain (Scale 07/19/22 07/19/22 Unknown History Score 1-4) calcitriol 0.25 mcg capsule 0.5 mcg PO 3XW 07/19/22 07/19/22 Unknown History lidocaine 5 % topical patch 1 patch topical DAILY 07/19/22 07/19/22 Unknown History sevelamer carbonate 800 mg tablet 800 mg PO TIDWM 07/19/22 07/19/22 Unknown History Exam Exam Date and Time: July 22, 2022 1356 Height,Weight and Vital Signs: Height 5 ft Weight 81.647 kg Last Vital Signs Temp 97.9 F 07/22/22 11:02 Pulse 62 07/22/22 13:51 Resp 18 07/22/22 11:02 BP 170/75 H 07/22/22 13:51 Pulse Ox 99 07/22/22 11:02 O2 Del Method 07/22/22 11:02 Pertinent Lab Results Pertinent Lab Results: Laboratory Tests 07/19/22 07/19/22 07/19/22 12:14 12:15 13:20 WBC 6.3 RBC 2.82 L Hgb 9.0 L Hct 28.9 L MCV 102.5 H MCH 31.9 MCHC 31.1 RDW 15.6 Plt Count 145 L MPV 10.5 Immature Gran % (Auto) 0.2 Neut % (Auto) 64.1 Lymph % (Auto) 18.1 L Story % (Auto) 11.2 H Eos % (Auto) 5.6 H Baso % (Auto) 0.8 Lymph # (Auto) 1.1 L Story # (Auto) 0.7 Eos # (Auto) 0.4 Baso # (Auto) 0.1 Abs Immat Gran (auto) 0.01 Absolute Neuts (auto) 4.0 Absolute Nucleated RBC 0.000 Nucleated RBC % (auto) 0.0 PT 22.0 H INR 1.9 H Sodium Potassium Chloride Carbon Dioxide Anion Gap BUN Creatinine Estim Creat Clear Calc Estimated GFR POC Glucose Random Glucose Calcium Iron TIBC % Saturation Unsat Iron Binding Ferritin Total Bilirubin AST ALT Alkaline Phosphatase Troponin I High Sens 20.6 H D Total Protein Albumin Stool Occult Blood COVID-19 ([facility]) COVID-19 [employer] 07/19/22 07/19/22 07/19/22 13:20 15:48 17:11 WBC RBC Hgb Hct MCV MCH MCHC RDW Plt Count MPV Immature Gran % (Auto) Neut % (Auto) Lymph % (Auto) Story % (Auto) Eos % (Auto) Baso % (Auto) Lymph # (Auto) Story # (Auto) Eos # (Auto) Baso # (Auto) Abs Immat Gran (auto) Absolute Neuts (auto) Absolute Nucleated RBC Nucleated RBC % (auto) PT INR Sodium 139 Potassium 3.7 Chloride 99 Carbon Dioxide 29 Anion Gap 15 BUN 30 H Creatinine 3.38 H Estim Creat Clear Calc 13.8 Estimated GFR 13 POC Glucose 105 Random Glucose 58 L* Calcium 8.2 L Iron 90 TIBC 227 L % Saturation 40 Unsat Iron Binding 137 Ferritin 1501 H Total Bilirubin 0.6 AST 20 ALT 15 Alkaline Phosphatase 120 H Troponin I High Sens Total Protein 6.0 L Albumin 3.5 Stool Occult Blood POSITIVE COVID-19 ([facility]) [facility] 07/19/22 07/19/22 07/19/22 19:08 20:10 23:36 WBC RBC Hgb Hct MCV MCH MCHC RDW Plt Count MPV Immature Gran % (Auto) Neut % (Auto) Lymph % (Auto) Story % (Auto) Eos % (Auto) Baso % (Auto) Lymph # (Auto) Story # (Auto) Eos # (Auto) Baso # (Auto) Abs Immat Gran (auto) Absolute Neuts (auto) Absolute Nucleated RBC Nucleated RBC % (auto) PT INR Sodium Potassium Chloride Carbon Dioxide Anion Gap BUN Creatinine Estim Creat Clear Calc Estimated GFR POC Glucose 272 H 188 H Random Glucose Calcium Iron TIBC % Saturation Unsat Iron Binding Ferritin Total Bilirubin AST ALT Alkaline Phosphatase Troponin I High Sens Total Protein Albumin Stool Occult Blood COVID-19 ([facility]) Negative [facility] See Note 07/20/22 07/20/22 07/20/22 06:33 06:33 07:35 WBC 6.4 RBC 2.72 L Hgb 8.7 L Hct 27.5 L MCV 101.1 H MCH 32.0 MCHC 31.6 RDW 15.6 Plt Count 139 L MPV 11.8 Immature Gran % (Auto) Neut % (Auto) Lymph % (Auto) Story % (Auto) Eos % (Auto) Baso % (Auto) Lymph # (Auto) Story # (Auto) Eos # (Auto) Baso # (Auto) Abs Immat Gran (auto) Absolute Neuts (auto) Absolute Nucleated RBC 0.000 Nucleated RBC % (auto) 0.0 PT INR Sodium 138 Potassium 5.0 D Chloride 100 Carbon Dioxide 21 L Anion Gap 22 H BUN 40 H Creatinine 4.25 H* Estim Creat Clear Calc 11.0 Estimated GFR 10 POC Glucose 89 Random Glucose 86 Calcium 8.0 L Iron TIBC % Saturation Unsat Iron Binding Ferritin Total Bilirubin AST ALT Alkaline Phosphatase Troponin I High Sens Total Protein Albumin Stool Occult Blood COVID-19 ([facility]) COVID-19 [employer] 07/20/22 07/20/22 07/20/22 10:49 15:19 19:24 WBC RBC Hgb Hct MCV MCH MCHC RDW Plt Count MPV Immature Gran % (Auto) Neut % (Auto) Lymph % (Auto) Story % (Auto) Eos % (Auto) Baso % (Auto) Lymph # (Auto) Story # (Auto) Eos # (Auto) Baso # (Auto) Abs Immat Gran (auto) Absolute Neuts (auto) Absolute Nucleated RBC Nucleated RBC % (auto) PT INR Sodium Potassium Chloride Carbon Dioxide Anion Gap BUN Creatinine Estim Creat Clear Calc Estimated GFR POC Glucose 154 H 145 H 217 H Random Glucose Calcium Iron TIBC % Saturation Unsat Iron Binding Ferritin Total Bilirubin AST ALT Alkaline Phosphatase Troponin I High Sens Total Protein Albumin Stool Occult Blood COVID-19 ([facility]) COVID-19 [employer] 07/20/22 07/20/22 07/21/22 22:14 22:14 05:57 WBC 6.2 RBC 2.76 L Hgb 8.9 L 8.7 L Hct 28.3 L 27.7 L MCV 100.4 H MCH 31.5 MCHC 31.4 RDW 15.5 Plt Count 147 L MPV 11.1 Immature Gran % (Auto) Neut % (Auto) Lymph % (Auto) Story % (Auto) Eos % (Auto) Baso % (Auto) Lymph # (Auto) Story # (Auto) Eos # (Auto) Baso # (Auto) Abs Immat Gran (auto) Absolute Neuts (auto) Absolute Nucleated RBC 0.000 Nucleated RBC % (auto) 0.0 PT 16.4 H INR 1.4 H Sodium Potassium Chloride Carbon Dioxide Anion Gap BUN Creatinine Estim Creat Clear Calc Estimated GFR POC Glucose Random Glucose Calcium Iron TIBC % Saturation Unsat Iron Binding Ferritin Total Bilirubin AST ALT Alkaline Phosphatase Troponin I High Sens Total Protein Albumin Stool Occult Blood COVID-19 ([facility]) COVID-19 [employer] 07/21/22 07/21/22 07/21/22 07:26 11:00 15:53 WBC RBC Hgb Hct MCV MCH MCHC RDW Plt Count MPV Immature Gran % (Auto) Neut % (Auto) Lymph % (Auto) Story % (Auto) Eos % (Auto) Baso % (Auto) Lymph # (Auto) Story # (Auto) Eos # (Auto) Baso # (Auto) Abs Immat Gran (auto) Absolute Neuts (auto) Absolute Nucleated RBC Nucleated RBC % (auto) PT INR Sodium Potassium Chloride Carbon Dioxide Anion Gap BUN Creatinine Estim Creat Clear Calc Estimated GFR POC Glucose 124 H 164 H 161 H Random Glucose Calcium Iron TIBC % Saturation Unsat Iron Binding Ferritin Total Bilirubin AST ALT Alkaline Phosphatase Troponin I High Sens Total Protein Albumin Stool Occult Blood COVID-19 ([facility]) COVID-19 [employer] 07/21/22 07/22/22 07/22/22 19:15 06:27 07:44 WBC 6.4 RBC 3.25 L Hgb 10.2 L Hct 31.9 L MCV 98.2 H MCH 31.4 MCHC 32.0 RDW 15.6 Plt Count 132 L MPV 12.0 Immature Gran % (Auto) Neut % (Auto) Lymph % (Auto) Story % (Auto) Eos % (Auto) Baso % (Auto) Lymph # (Auto) Story # (Auto) Eos # (Auto) Baso # (Auto) Abs Immat Gran (auto) Absolute Neuts (auto) Absolute Nucleated RBC 0.000 Nucleated RBC % (auto) 0.0 PT INR Sodium Potassium Chloride Carbon Dioxide Anion Gap BUN Creatinine Estim Creat Clear Calc Estimated GFR POC Glucose 230 H 124 H Random Glucose Calcium Iron TIBC % Saturation Unsat Iron Binding Ferritin Total Bilirubin AST ALT Alkaline Phosphatase Troponin I High Sens Total Protein Albumin Stool Occult Blood COVID-19 ([facility]) COVID-19 [employer] 07/22/22 11:06 WBC RBC Hgb Hct MCV MCH MCHC RDW Plt Count MPV Immature Gran % (Auto) Neut % (Auto) Lymph % (Auto) Story % (Auto) Eos % (Auto) Baso % (Auto) Lymph # (Auto) Story # (Auto) Eos # (Auto) Baso # (Auto) Abs Immat Gran (auto) Absolute Neuts (auto) Absolute Nucleated RBC Nucleated RBC % (auto) PT INR Sodium Potassium Chloride Carbon Dioxide Anion Gap BUN Creatinine Estim Creat Clear Calc Estimated GFR POC Glucose 102 Random Glucose Calcium Iron TIBC % Saturation Unsat Iron Binding Ferritin Total Bilirubin AST ALT Alkaline Phosphatase Troponin I High Sens Total Protein Albumin Stool Occult Blood COVID-19 ([facility]) COVID-19 Clin Com Airway Mallampati Class: II TM Dist: <=3cm Neck ROM: Limited Heart: irreg Lungs: cta Assessment and Plan Final Anesthetic Review Family History of Problems with Anesthesia: No History of Problems with Anesthesia: No NPO: Yes ASA Class: IV Final Preanesthetic Review: No Changes in Pt Med Stat, Meds/Allgs Chart Reviewed, Consent Obtained/Reviewed and Anes Risks/Benef Reviewed Patient Risk: High Procedure Risk: Intermediate Anesthetic Plan Anesthetic Plan: MAC: and Agree w/ Assess. and Plan Disposition: Standard PACU
[2022-07-22 14:25] LABS: Glucose, Whole Blood 86 mg/dL (60-115)
--- NOTE | 2022-07-22 14:26 | PC.NURSE ---
POC 86 @ 14[address]. An[address]hesia Dr Aguilera made aware. No new orders given.
--- NOTE | 2022-07-22 14:46 | MHC.SHP ---
Pre-Procedural Eval Section A Date of Service: 07/22/22 The patient is an INPATIENT: Yes The History & Physical has been completed within 30 days and I have reviewed it.: Yes Section B Chief Complaint: anemia, melena Allergies: Allergies Allergy/AdvReac Type Severity Reaction Status Date / Time No Known Allergies Allergy Verified 06/26/22 12:42 Plan Diagnosis/Plan: Unchanged I have reviewed the history and physical and performed a pertinent physical examination on my patient. No changes have occurred unless specified. Time Spent With Patient Time: Total time managing care of this patient today ____ minutes.
--- NOTE | 2022-07-22 15:48 | P.OP_ITS ---
Operative Note Operative Note Date of Service: 07/22/22 Narrative: Procedure:?Esophagogastroduodenoscopy and Colonoscopy Indication:?Maroon stools, anemia Endoscopist:?Scarlet Santacruz MD Anesthesia Provider:?Dr Donavon Aguilera Anesthesia type:?MAC Instrument:?Olympus GIF-H190 and PCF-H190L EGD Procedure:?? The procedure, indications, preparation and potential complications were reviewed with the patient with the help of a president practicing urologist who indicated understanding and gave written informed consent to proceed. A physical exam was performed. The endoscope was introduced through the mouth, and advanced to the second part of duodenum. The mucosa was carefully examined on slow withdrawal of the endoscope. The patient tolerated the procedure well. There were no immediate complications.? ? EGD Findings:? * Esophagus:? Normal esophageal mucosa was noted. Z line was at 36 cm. * Stomach:?Mucosal atrophy and erythema was noted in the body and fundus. 2 small ulcers with clean base were noted in the fundus. Biopsies from the edge of the ulcers were taken with cold forceps. Random cold forceps biopsies were also taken for histology. * Duodenum:? Normal duodenum mucosa. Cold forceps biopsies were taken from duodenal bulb and second portion of the duodenum to rule out celiac sprue. Colonoscopy Procedure:? The patient was then turned for the colonoscopy. A digital rectal exam was performed which was normal. The colonoscope was then inserted through the anus and advanced through the colon to the cecum at 85 cm. The appendiceal orifice and ileocecal valve was identified.? Mucosa was carefully examined under high definition white light as the instrument was slowly withdrawn in a retrograde panoramic fashion. Retroflexion was performed in rectum. The procedure was not difficult. There were no immediate obvious complications. The quality of the prep was BBPS: 2+3+3 = adequate Withdrawal time 20 minutes. Limitations: No limitations Colonoscopy findings: Mucosa: Multiple diminutive AVMs were noted in the R colon. None of these were actively bleeding. 2 AVMs oozed after agitation with water jet. These were ablated using hot-snare tip on soft coag settings. (APC was not available) Protruding lesions: * Medium internal hemorrhoids without stigmata of recent bleeding.? * A small 5 mm sessile polyp was seen in sigmoid colon. Cold snare polypectomy was performed. Polyp was completely removed but not retrieved. Excavated lesions: * Few small mouthed diverticula noted in the sigmoid colon. Impression:? * Normal esophagus * Abnormal gastric mucosa (biopsy) * Gastric ulcers (biopsy) * Normal duodenum (biopsy) * AVMs in R colon (ablation) * Total of 1 sigmoid colon polyp removed (not retrieved) * Diverticulosis * Internal hemorrhoids Recommendations:?? * Follow path results * Suspect bleeding was secondary to AVMs exacerbated by anticoagulation * Can resume anticoagulation after 24h * No further CRC screening recommended due to age. * Avoid NSAIDs.
[2022-07-22 17:21] LABS: Glucose, Whole Blood 106 mg/dL (60-115)
[2022-07-22] MEDS: Sevelamer Carbonate Tablet 800 MG TABLET PO (17:44)
[2022-07-22 19:29] LABS: Transferrin 195 mg/dL (188-341)
[2022-07-22 20:06] LABS: Glucose, Whole Blood 155 mg/dL (60-115)
[2022-07-22] MEDS: Montelukast Sodium 10 MG TABLET PO (23:27)
[2022-07-22] MEDS: Dronedarone HCl 400 MG TABLET PO (23:28)
[2022-07-22] MEDS: Insulin Glargine,Hum.rec.anlog 100 UNIT/ML 10 ML VIAL 6 UNIT SUBCUT (23:28)
[2022-07-22] MEDS: Insulin Lispro 100 UNIT/ML 3 ML VIAL SUBCUT (23:28)
[2022-07-22] MEDS: Atorvastatin Calcium 40 MG TABLET PO (23:28)
[2022-07-23] VITALS: BP 117/58; PULSE 64; RESP 20; TEMP 36.6; O2SAT 94
--- NOTE | 2022-07-23 00:31 | PC.NURSE ---
Pt was complaining of bladder pain and no sensation of needing to urinate. When bladder scanned she had 949ml. She urinated some and we scanned her again and she still had over 600ml. Pt was also complaining of a painful vagina which appeared to be swollen and red. Dr Pierce put in an order for straight cath and UA collection which was completed. She put out 350ml via straight cath.
[2022-07-23 02:23] LABS: Appearance Urine Clear; Color Urine Yellow; Glucose Urine UA 100 mg/dL (Negative); Leukocyte Esterase Urine Small (1+) (Negative); Nitrite Urine Negative (Negative); PH 8.5 (5.0-9.0); UMIC TRIGGER UACC YES; Urine Blood Negative (Negative); Urine Ketones Negative (Negative); Urine Protein >=1000 (4+) mg/dL (Neg-Trace)
[2022-07-23 02:43] LABS: Bacteria Urine None Seen (None Seen); Hyaline Casts Urine 0-2 /LPF (0-2); Squamous Epithelial Cell Urine 0-2 /HPF (0-2); UACC Culture Trigger YES; WBC Urine >50 /HPF (0-5)
[2022-07-23 03:41] VITALS: BP 129/63; PULSE 60; RESP 20; TEMP 36.4; O2SAT 97
[2022-07-23] MEDS: Levothyroxine Sodium 25 MCG TABLET PO (05:27)
[2022-07-23 07:22] LABS: Glucose, Whole Blood 233 mg/dL (60-115)
[2022-07-23] MEDS: Fluticasone/Vilanterol 100/25 BLST.W.DEV 1 PUFF INHALE (07:41)
[2022-07-23 07:42] VITALS: PULSE 65; RESP 18; O2SAT 92
[2022-07-23 07:45] VITALS: BP 151/70; PULSE 65; RESP 20; TEMP 36.7; O2SAT 97
[2022-07-23] MEDS: Lidocaine 4 % Patch ADH..PATCH 1 PATCH TRANSDERMA (07:59)
[2022-07-23] MEDS: Insulin Lispro 100 UNIT/ML 3 ML VIAL SUBCUT (07:59)
[2022-07-23] MEDS: Fluticasone Propionate Nasal 16 GM SPRAY 1 SPRAY NOSTRIL-B (07:59)
[2022-07-23] MEDS: Metoprolol Tartrate 25 MG TABLET PO (08:00)
[2022-07-23] MEDS: Loratadine 10 MG TABLET PO (08:00)
[2022-07-23] MEDS: Dronedarone HCl 400 MG TABLET PO (08:00)
[2022-07-23] MEDS: Gabapentin 100 MG CAPSULE PO (08:00)
[2022-07-23] MEDS: hydrALAZINE HCl 25 MG TABLET PO ×2 (08:00→14:46)
[2022-07-23] MEDS: Ferrous Sulfate 324 MG TABLET.DR PO (08:00)
[2022-07-23] MEDS: Sevelamer Carbonate Tablet 800 MG TABLET PO ×2 (08:00→14:46)
[2022-07-23] MEDS: 0.9 % Sodium Chloride Flush 3 ML SYRINGE IVFLUSH (08:04)
--- NOTE | 2022-07-23 10:10 | W.PM.DNNEP ---
Subjective Subjective This patient was seen during dialysis. Interval history: the patient was seen and evaluated this morning Laying in bed, feels weak and tired Elevated blood pressure this morning No reported episodes of bloody BM overnight Hemoglobin increased to 10 with no major drop No reported other overnight events. Physical Exam Vital Signs: Vital Signs: Last Vital Signs Temp 98.1 F 07/23/22 07:45 Pulse 65 07/23/22 07:45 Resp 20 07/23/22 07:45 BP 151/70 H 07/23/22 07:45 Pulse Ox 97 07/23/22 07:45 O2 Del Method 07/23/22 07:45 BMI result Body Mass Index 35.2 Const: General: alert and awake HEENT: Head: Yes normocephalic Neck: Neck: Yes supple Resp: Auscultation: diminished lung sounds Cardio: Heart sounds: S1 normal heart sound present and S2 normal heart sound present GI: Palpation (GI): Soft to palpation and nontender Extrem: General: Yes edema Assessment & Plan Assessment and plan (1) ESRD (end stage renal disease): Status: Acute (2) GI bleeding: Status: Acute (3) Anemia: Status: Acute Plan ESRD no s/s of uremia usually has HD t-t-s at [place] [facility] GIB/Anemia REC HD TTS optimize volume status follow h/h blood transfusion as needed IV protonix GI consult DARA renal diet phosphate binders Time Spent With Patient Time: Total time managing care of this patient today ____ minutes. Procedures Date of Service Date of Service: 07/23/22
[2022-07-23] MEDS: Acetaminophen 325 MG TABLET 650 MG PO (10:38)
--- NOTE | 2022-07-23 13:20 | HO.POSTANES ---
Post Anesthesia Evaluation Post Anesthesia Evaluation Vital Signs: Vital Signs Temp Pulse Resp BP Pulse Ox O2 Del Method 07/23/22 07:45 98.1 F 65 20 151/70 H 97 Room Air 07/23/22 07:42 65 18 07/23/22 03:41 97.6 F 60 20 129/63 97 Room Air Anesthesia: Monitored Mental Status: Awake Pain Control: Satisfactory Nausea/Vomiting: None Hydration: Adequate Anesthesia-Related Issues: No Anes. Related Issues
[2022-07-23 13:33] VITALS: BP 151/70; PULSE 65; O2SAT 97
--- NOTE | 2022-07-23 13:52 | P.DS_ITS ---
DS: Providers Provider Date of Service: 07/23/22 Date of admission: 07/19/22 20:28 Primary care physician: Lonnie Khan MD Consults: 07/19/22 20:33 Consult to Gastroenterology Routine Consulting Provider: Scarlet Santacruz Reason for consultation: Melena, +fecal occult blood Consult to Nephrology Routine Consulting Provider: Thomas Hutchison Reason for consultation: Pt on dialysis , Friday DS: Diagnosis Discharge Diagnosis (1) ESRD (end stage renal disease): Status: Acute (2) GI bleeding: Status: Acute (3) Anemia: Status: Acute (4) Melena: Status: Acute DS: Summary Hospital Course Hospital Course: Admission note HPI Pt is a 76-year-old female with a PMH significant for end-stage renal disease on dialysis, asthma/COPD overlap, paroxysal atrial fibrillation on Eliquis, anxiety, insulin-dependent DM 2 with polyneuropathy, anemia of chronic disease, CHF, hypothyroidism, HLD, and thrombosis of the jugular vein who presents to the ED after a mechanical fall yesterday. Pt reports she was getting out of bed yesterday morning when she felt lightheaded, became dizzy and tipped forward and fell, hitting her head and right arm on her oxygen tank. She called her son using her Life Alert bracelet, who came within five minutes to help her up. Pt intially refused to come to the ED despite her son's insistence, but eventually relented today. Workup in the ED was unremarkable for her mechanical fall:? CT of head, face, cervical spine all negative for acute findings, fractures, or misalignments.? X-ray of the humerus and shoulder showed no new osseous findings. Just prior to discharge pt complained of left lower quadrant abdominal pain and black diarrhea, which prompted additional workup. Pt states she has been having 3-4 episodes of black diarrhea for the past 7 days. She has also experienced left lower quadrant pain for the past 5 days. During this time pt also notes increased lightheadedness and dizziness. Pt denies chest pain/pressure, palpitations.? No shortness of breath.? Denies fever, chills, nausea, vomiting.? In the ED labs were significant for H&H of 9.0/28.9 (near baseline), MCV of 102.5, platelets below baseline at 145, iron levels WNL except for ferritin elevated at 1501 and transferrin still pending, chronically elevated troponin at 20.6 (at baseline). CT?of abdomen and pelvis showed tiny left pleural effusion, cholelithiasis without evidence of acute cholecystitis, but no acute findings in the abdomen or pelvis. EKG demonstrated sinus rhythm with 1st degree AV block and nonspecific T-wave abnormalities, but no evidence of ST elevations or depressions. Pt was treated with pantoprazole IV. Pt will be admitted to the hospital on telemetry for treatment and additional workup for symptomatic anemia likely secondary to GI bleed. Hospital course The patient was admitted to the hospital for reported episodes of melena and lower abdominal pain. Evaluated by CT scan of the abdomen which came back negative for any acute findings. Eliquis was held at time of presentation. Evaluated by gastroenterology team who did an upper and lower endoscopies with findings of gastric ulcers, AVMs and internal hemorrhoids with no active bleeding noticed anywhere. GI thinks that bleeding is most likely from AVMs giving the fact the patient on Eliquis. Patient still need Eliquis for atrial fibrillation but would benefit from further evaluation by Cardiology team for Watchman device placement and taking her of the blood thinners down the road. No major drop in her hemoglobin noted. She had a fall at home with multiple areas of bruises. X-rays for upper and lower extremities negative for any fracture. She was evaluated by physical therapy team prior to discharge who recommended her to go back home as she did really well. Followed by Nephrology team. Had dialysis sessions according to her schedule. Restart Eliquis your home dose To follow up with PCP\Cardiology as outpatient if you are a candidate for Watchman procedure to get you off the blood thinner Time Spent with Patient Time attestation: Total time managing care of this patient today ____ minutes. Discharge coordination time: Greater than 30 minutes Quality: Safe Use of Opioids Does Pt have an Active Cancer Diagnosis on the Problem List?: No Quality: Stroke Does the patient have a stroke diagnosis?: No Physical Exam Vital Signs: Vital Signs: Last Vital Signs Temp 98.1 F 07/23/22 07:45 Pulse 65 07/23/22 13:33 Resp 20 07/23/22 07:45 BP 151/70 H 07/23/22 13:33 Pulse Ox 97 07/23/22 13:33 O2 Del Method 07/23/22 07:45 BMI result Body Mass Index 35.2 Const: Other: Constitutional : Awake, interactive, not in distress Neck : Normal inspection, Supple Cardiovascular : RRR, no JVP, no lower extremity edema Respiratory : good bilateral air entry, no crackles, wheezes or rhonchi Gastrointestinal: soft, lax, Normal bowel sounds, Non tender Skin : Warm, Dry, periorbital bruise on the right side, multiple bruises around knees both lower extremities Neurological : Alert & oriented x3, No focal deficit DS: Data Data Completed and Pending Completed studies during hospitalization [Text1]: Procedures Assistance with Respiratory Ventilation, Less than 24 Consecutive Hours, Continuous Positive Airway Pressure (11/06/21) Drainage of Left Pleural Cavity, Percutaneous Approach (05/21/21) Excision of Right Kidney, Percutaneous Approach, Diagnostic (04/20/21) Insertion of Infusion Device into Left Brachial Vein, Percutaneous Approach (05/02/21) Insertion of Infusion Device into Right Atrium, Percutaneous Approach (05/02/21) Insertion of Infusion Device into Superior Vena Cava, Percutaneous Approach (05/02/21) Insertion of Tunneled Vascular Access Device into Chest Subcutaneous Tissue and Fascia, Percutaneous Approach (05/02/21) Performance of Urinary Filtration, Intermittent, Less than 6 Hours Per Day (04/08/22) Removal of Infusion Device from Great Vessel, Percutaneous Approach (05/02/21) Transfusion of Nonautologous Red Blood Cells into Peripheral Vein, Percutaneous Approach (05/02/21) Pending studies at discharge: Pending at discharge 07/22/22 15:05 Surgical [PTH] Routine Labs on day of discharge: Laboratory Results - last 24 hr 07/19/22 07/22/22 07/22/22 13:20 14:21 17:17 POC Glucose 86 106 Transferrin 195 Urine Color Urine Appearance Urine pH Ur Specific [place] Urine Protein Urine Glucose (UA) Urine Ketones Urine Blood Urine Nitrite Ur Leukocyte Esterase Urine RBC Urine WBC Ur Squamous Epith Cells Urine Bacteria Hyaline Casts 07/22/22 07/22/22 07/23/22 20:02 23:13 07:12 POC Glucose 155 H 233 H Transferrin Urine Color Yellow Urine Appearance Clear Urine pH 8.5 Ur Specific [place] 1.010 Urine Protein >=1000 (4+) H Urine Glucose (UA) 100 H Urine Ketones Negative Urine Blood Negative Urine Nitrite Negative Ur Leukocyte Esterase Small (1+) H Urine RBC 3-5 H Urine WBC >50 H Ur Squamous Epith Cells 0-2 Urine Bacteria None Seen Hyaline Casts 0-[address] scan - abdomen: Radiologist's impression: ITS Impressions Cervical Spine CT 07/19/22 11:50 IMPRESSION: 1. No acute intracranial finding. Chronic changes. 2. No acute maxillofacial fracture. 3. No acute fracture or malalignment of the cervical spine. Mild degenerative change. Face CT 07/19/22 11:50 IMPRESSION: 1. No acute intracranial finding. Chronic changes. 2. No acute maxillofacial fracture. 3. No acute fracture or malalignment of the cervical spine. Mild degenerative change. Head CT 07/19/22 11:50 IMPRESSION: 1. No acute intracranial finding. Chronic changes. 2. No acute maxillofacial fracture. 3. No acute fracture or malalignment of the cervical spine. Mild degenerative change. Humerus X-Ray 07/19/22 11:50 IMPRESSION: * No evidence of loosening of humeral fixation hardware, status post open reduction and internal fixation of comminuted proximal humeral fracture. * The chronic mild narrowing of the subacromial space suggests likelihood of chronic rotator cuff tear. * No new osseous injury. Shoulder X-Ray 07/19/22 11:57 IMPRESSION: * No evidence of loosening of humeral fixation hardware, status post open reduction and internal fixation of comminuted proximal humeral fracture. * The chronic mild narrowing of the subacromial space suggests likelihood of chronic rotator cuff tear. * No new osseous injury. Abdomen/Pelvis CT 07/19/22 16:31 IMPRESSION: 1. No acute findings in the abdomen or pelvis. No inflammatory changes. Mild diffuse colonic stool burden. 2. Cholelithiasis without evidence of acute cholecystitis. 3. Tiny left pleural effusion. Fleischner guidelines were followed. Discharge Plan Discharge Anticipated Discharge Date/Time: 07/23/22 13:39 Patient Disposition: Home Health Service Discharge Diagnosis: Melena Referrals: Lonnie Khan MD [Primary Care Provider] - 1 Week Discharge Medications: Continued (DME) Extra depth orthopedic shoes (1 pair) with customized heat molded multidensity innersoles (3 pair) See Rx Instructions .Route .MEDSUPPLY Qty: 1 0RF Rx Instructions: As directed (DME) syringe with needle 3 mL 27 gauge x 1 1/4 syringe See Rx Instructions .Route Qty: 6 1RF Rx Instructions: As directed once a month (for Vitamin B12 injections) loratadine 10 mg tablet 10 mg PO DAILY 90 Days Qty: 90 3RF Rx Instructions: Take 1 tablet by mouth daily ferrous sulfate 325 mg (65 mg iron) tablet 325 mg PO DAILY Qty: 90 1RF hydralazine 25 mg tablet 25 mg PO TID 90 Days Qty: 270 3RF Protocol: Hold for SBP< HOLD for SBP < : 90 Eliquis 5 mg tablet 5 mg PO BID 90 Days Qty: 180 0RF (DME) FreeStyle Lite Strips Strip See Rx Instructions .ROUTE .MEDSUPPLY Qty: 300 3RF Rx Instructions: check bs 3-4X/DAY (DME) blood-glucose meter [FreeStyle Lite Meter] Kit See Rx Instructions .Route Qty: 1 0RF Rx Instructions: As directed levothyroxine 25 mcg tablet 25 mcg PO DAILY@0600 Qty: 90 0RF montelukast 10 mg tablet 10 mg PO BEDTIME Qty: 90 0RF atorvastatin 40 mg tablet 40 mg PO BEDTIME Qty: 90 0RF cyanocobalamin (vitamin B-12) 1,000 mcg/mL solution 1,000 mcg IM Q4W Qty: 3 1RF Multaq 400 mg tablet 400 mg PO BID Qty: 60 3RF Rx Instructions: must administer with a meal/food insulin glargine [Lantus Solostar U-100 Insulin] 100 unit/mL (3 mL) insulin pen 8 unit subcut BEDTIME 90 Days Qty: 7.2 3RF Advair HFA 115-21 mcg/actuation HFA aerosol inhaler 2 puff inhalation Q12H 30 Days Qty: 12 11RF metoprolol tartrate 25 mg tablet 25 mg PO BID Qty: 60 5RF Protocol: Hold for SBP/HR < HOLD for SBP < : 90 HOLD for HR < : 60 (DME) lancets [FreeStyle Lancets] 28 gauge misc See Rx Instructions .ROUTE .MEDSUPPLY Qty: 100 12RF Rx Instructions: check BS 3x/day (DME) DIGITAL SCALE See Rx Instructions .Route .MEDSUPPLY Qty: 1 0RF Rx Instructions: As directed pantoprazole 40 mg tablet,delayed release (DR/EC) 40 mg PO DAILY@0630 30 Days Qty: 30 5RF gabapentin 100 mg capsule 100 mg PO BID 30 Days Qty: 60 1RF insulin lispro 100 unit/mL insulin pen 2 - 10 unit subcut QIDACHS Rx Instructions: PER SLIDING SCALE acetaminophen 325 mg Tablet 325 mg PO Q6H PRN (Reason: Mild Pain (Scale Score 1-4)) lidocaine 5 % adhesive patch,medicated 1 patch TOPICAL DAILY Protocol: Apply to: Apply to: NECK AND LEGS Rx Instructions: leave on most painful area for up to 12 hrs sevelamer carbonate 800 mg tablet 800 mg PO TIDWM Rx Instructions: must administer with a meal/food calcitriol 0.25 mcg Capsule 0.5 mcg PO 3XW Rx Instructions: administer after dialysis on dialysis days (DME) TRANSPORT WHEELCHAIR See Rx Instructions .Route .MEDSUPPLY Qty: 1 0RF Rx Instructions: As directed (DME) blood pressure monitor Kit See Rx Instructions .Route Qty: 1 0RF Rx Instructions: As directed (DME) pen needle, diabetic [BD Sandra 2nd Gen Pen Needle] 32 gauge x 5/32 needle See Rx Instructions .Route Qty: 50 0RF Rx Instructions: As directed (DME) blood-glucose meter [FreeStyle Lite Meter] Kit See Rx Instructions .Route Qty: 1 0RF Rx Instructions: As directed 3-4 times a day albuterol sulfate 90 mcg/actuation HFA aerosol inhaler 2 inh inhalation Q6H PRN (Reason: shortness of breath or wheezing) 30 Days Qty: 18 12RF Discharge Orders: Discharge Order (Routine); Ordered 07/23/22 Ordered By: Marvel Phelan Diet: Advance to usual diet Activity on Discharge: As tolerated Stand Alone Forms: Patient Portal Discharge page Care Plan Goals: Read below Health Concerns: Read below Plan of Treatment: Read below Assessment: You were admitted to the hospital for evaluation of blood with stool. Had dialysis sessions during the hospital stay according to your schedule. Evaluated by resistance welding machine operator who did an upper and lower endoscopies showing gastric ulcers, arteriovenous malformations and internal hemorrhoids in your colon which are the likely source of your bleeding giving the fact that you are on blood thinners. Restart Eliquis your home dose To follow up with PCP\Cardiology as outpatient if you are a candidate for Watchman procedure to get you off the blood thinner
--- NOTE | 2022-07-23 13:57 | MHC.CM.PN ---
Patient has been medically cleared for dc to home today, self care. IMM addressed with Patient at bedside and original (in [place]) has been given to her and a copy has been placed on the chart.
[2022-07-23 14:02] LABS: Glucose, Whole Blood 146 mg/dL (60-115)
[2022-07-23 15:52] VITALS: BP 127/70; PULSE 62; RESP 15; TEMP 36.4; O2SAT 98
[2022-07-23 16:36] LABS: Glucose, Whole Blood 215 mg/dL (60-115)
== END 2022-07-23 17:59 | disposition home or self-care (01) | DRG 377 ==
LOC: HO.ED 18:48 → HO.EDOVER 20:44 → HO.IMC 07-20 00:17
PROVIDERS: Internal Medicine; Nurse Practitioner Family; Student in an Organized Health Care Education/Training Program; Admitting Provider Student in an Organized Health Care Education/Training Program; Emergency Provider Student in an Organized Health Care Education/Training Program; PCP Internal Medicine; Visit Provider Student in an Organized Health Care Education/Training Program
PROC: 0DB98ZX Excision of Duodenum, Via Natural or Artificial Opening Endoscopic, Diagnostic (ICD-10-PCS; principal; 2022-07-22 14:30)
DX: K55.21 Angiodysplasia of colon with hemorrhage (principal); N18.6 End stage renal disease; I12.0 Hypertensive chronic kidney disease with stage 5 chronic kidney disease or end stage renal disease; D62 Acute posthemorrhagic anemia; D68.32 Hemorrhagic disorder due to extrinsic circulating anticoagulants; K25.4 Chronic or unspecified gastric ulcer with hemorrhage; E11.22 Type 2 diabetes mellitus with diabetic chronic kidney disease; Z99.2 Dependence on renal dialysis; E03.9 Hypothyroidism, unspecified; E11.649 Type 2 diabetes mellitus with hypoglycemia without coma; D63.1 Anemia in chronic kidney disease; E78.5 Hyperlipidemia, unspecified; J44.9 Chronic obstructive pulmonary disease, unspecified; I48.0 Paroxysmal atrial fibrillation; K63.5 Polyp of colon; K64.8 Other hemorrhoids; K57.31 Diverticulosis of large intestine without perforation or abscess with bleeding; M85.80 Other specified disorders of bone density and structure, unspecified site; E78.00 Pure hypercholesterolemia, unspecified; T45.515A Adverse effect of anticoagulants, initial encounter; Z20.822 Contact with and (suspected) exposure to COVID-19; Z79.4 Long term (current) use of insulin; Z79.01 Long term (current) use of anticoagulants; Z79.51 Long term (current) use of inhaled steroids; Z79.890 Hormone replacement therapy; Z79.899 Other long term (current) drug therapy
CPT/HCPCS: 36415; 70450; 70486; 72125; 73030; 73060; 74176; 80048; 80053; 81001; 82272; 82728; 82947; 83540; 84466; 84484; 85014; 85018; 85025; 85027; 85610; 87086; 87635; 88305; 88342; 90935; 90999; 93005; 94640; 97162; 99285

== ENCOUNTER 2022-08-14 13:20 | Emergency (ER) | payer OTHER, SELFPAY ==
--- NOTE | ~2022-08-14 | CT_ITS ---
EXAMINATION: NONCONTRAST HEAD CT NONCONTRAST CERVICAL SPINE CT INDICATION INFORMATION: Fall. Headache. COMPARISON: 07/19/2012 TECHNIQUE: Separate noncontrast CT examinations of the head and cervical spine were performed. Coronal and sagittal images were created for each examination at the technologist workstation. This CT examination was performed using dose optimization techniques as appropriate, variously including the following: *Automated exposure control *Adjustment of mA and/or kV according to patient size (this includes techniques or standardized protocols for targeted exams where dose is matched to indication/reason for exam; i.e. extremities or head) *Use of iterative reconstruction technique DLP: 990 mGy-cm FINDINGS: Head: There is no evidence of acute intracranial hemorrhage or territorial infarction. No abnormal mass effect or midline shift is seen. Grande to white matter differentiation is well preserved. No extra-axial fluid collections are identified. No hydrocephalus. Proportional prominence of the ventricles and sulcal spaces is consistent with moderate volume loss. Patchy periventricular and deep white matter hypoattenuation is consistent with moderate small vessel ischemic changes. Chronic right frontal infarct with ex vacuo dilatation of the right lateral ventricle frontal horn. Areas of bilateral calcifications are unchanged, including posterior to the atrium of the right lateral ventricle. No acute osseous or soft tissue abnormality. The mastoid air cells and visualized portions of the paranasal sinuses are well aerated. Cervical spine: Reversal of the normal cervical lordosis. There is anatomic alignment of the vertebral bodies and posterior elements. The atlantoaxial and atlantooccipital articulations are intact. Vertebral body heights are maintained. There is multilevel intervertebral disc space narrowing with endplate osteophyte formation and facet arthropathy. No evidence of acute fracture. No prevertebral soft tissue swelling. Bilateral pleural effusions noted.. Multiple bilateral thyroid nodules are seen, some of which are calcified. The largest nodule measures 0.5 cm. No specific follow-up recommended.. CT/CT cervical spine wo IV con IMPRESSION: 1. No acute intracranial finding. Chronic volume loss with small vessel ischemic change. 2. No acute fracture or malalignment of the cervical spine. Moderate degenerative changes.
[2022-08-14 13:39] VITALS: BP 118/70; PULSE 70
[2022-08-14 13:40] VITALS: BP 133/58; PULSE 68; RESP 18; TEMP 36.6; O2SAT 93; BMI 31.2
--- NOTE | 2022-08-14 15:30 | ED.FALL ---
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 Patient was trying to get out of bed slipped on the bed sheet and fell down landing on her buttock, patient is taken apixaban 5 mg, patient to remember if she hit her head but complaining of headache and neck pain. Patient otherwise has no other injuries. No LOC. Related Data Home Medications Medication Instructions Recorded Confirmed insulin lispro 100 unit/mL 2 - 10 unit subcut QIDACHS 04/15/22 08/05/22 subcutaneous pen acetaminophen 325 mg tablet 325 mg PO Q6H PRN Mild Pain (Scale 07/19/22 08/05/22 Score 1-4) calcitriol 0.25 mcg capsule 0.5 mcg PO 3XW 07/19/22 08/05/22 lidocaine 5 % topical patch 1 patch topical DAILY 07/19/22 08/05/22 sevelamer carbonate 800 mg tablet 800 mg PO TIDWM 07/19/22 08/05/22 Previous Rx's Medication Instructions Recorded TRANSPORT WHEELCHAIR #1 ea 08/03/21 blood pressure monitor #1 ea 08/03/21 blood-glucose meter (FreeStyle #1 ea 11/12/21 Lite Meter kit) Extra depth orthopedic shoes (1 #1 ea 11/16/21 pair) with customized heat molded multidensity innersoles (3 pair) syringe with needle 3 mL 27 gauge #6 ea 03/08/22 x 1 06/26 loratadine 10 mg tablet 10 mg PO DAILY 90 days #90 tabs 04/29/22 ferrous sulfate 325 mg (65 mg 325 mg PO DAILY #90 tabs 05/06/22 iron) tablet hydralazine 25 mg tablet 25 mg PO TID 90 days #270 tabs 05/13/22 pen needle, diabetic 32 gauge x #50 ea 06/05/22 (BD Sandra 2nd Gen Pen Needle) albuterol sulfate 90 mcg/actuation 2 inh inhalation Q6H PRN shortness 06/10/22 aerosol inhaler of breath or wheezing 30 days #18 grams apixaban 5 mg tablet (Eliquis) 5 mg PO BID 90 days #180 tabs 06/12/22 blood-glucose meter (FreeStyle #1 ea 06/12/22 Lite Meter kit) Multaq 400 mg tablet (dronedarone) 400 mg PO BID #60 tabs 06/13/22 atorvastatin 40 mg tablet 40 mg PO BEDTIME #90 tabs 06/13/22 cyanocobalamin (vitamin B-12) 1,000 mcg IM Q4W #3 mL 06/13/22 1,000 mcg/mL injection solution fluticasone propionate 115 2 puff inhalation Q12H 30 days #12 06/13/22 mcg-salmeterol 21 mcg/actuation grams HFA inhaler (Advair HFA) insulin glargine 100 unit/mL (3 8 unit (0.08 mL) subcut BEDTIME 90 06/13/22 mL) subcutaneous pen (Lantus days #7.2 mL Solostar U-100 Insulin) lancets 28 gauge (FreeStyle #100 ea 06/13/22 Lancets) metoprolol tartrate 25 mg tablet 25 mg PO BID #60 tabs 06/13/22 DIGITAL SCALE #1 ea 06/14/22 pantoprazole 40 mg tablet,delayed 40 mg PO DAILY@0630 30 days #30 06/29/22 release tabs gabapentin 100 mg capsule 100 mg PO BID 30 days #60 caps 07/09/22 blood sugar diagnostic (FreeStyle #100 strips 08/05/22 Lite Strips) montelukast 10 mg tablet 10 mg PO BEDTIME #90 tabs 08/05/22 levothyroxine 25 mcg tablet 25 mcg PO DAILY@0600 #90 tabs 08/12/22 Allergies Allergy/AdvReac Type Severity Reaction Status Date / Time No Known Allergies Allergy Verified 08/05/22 10:24 Review of Systems Review of Systems: All other systems are reviewed and are negative Constitutional: Reports as per HPI and Reports no additional constitutional complaints Eyes: Reports as per HPI and Reports no additional eye complaints Reports system reviewed and no additional complaints, except as documented Cardiovascular: Reports as per HPI and Reports no additional cardiovascular complaints Respiratory: Reports as per HPI and Reports no additional respiratory complaints Gastrointestinal: Reports as per HPI and Reports no additional gastrointestinal complaints Genitourinary: Reports no additional female genitourinary complaints Musculoskeletal: Reports no additional musculoskeletal complaints Skin/Breast: Reports system reviewed and no additional complaints, except as docu Psychiatric: Reports no additional psychiatric complaints Endocrine: Reports no additional endocrine complaints Hematologic/Lymphatic: Reports no additional hematologic/lymphatic complaints Allergic/Immunologic: Reports no additional allergic/immunologic complaints Reports system reviewed and no additional complaints, except as documented and Reports Abnormal speech present [facility] Past Medical History Medical History Acute pericardial effusion Anemia Anemia 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 Benign essential hypertension CAD (coronary artery disease) Chronic anticoagulation Chronic kidney disease, stage 4 (severe) Dyspnea ESRD (end stage renal disease) ESRD (end stage renal disease) ESRD on dialysis Fluid overload Gastric ulcer GERD (gastroesophageal reflux disease) Hemodialysis patient HLD (hyperlipidemia) Hypertension Hypothyroidism Iron deficiency Nephrotic range proteinuria Obesity (BMI 30-39.9) Osteoarthritis Osteopenia PAF (paroxysmal atrial fibrillation) PAF (paroxysmal atrial fibrillation) Paroxysmal atrial fibrillation Pernicious anemia Pure hypercholesterolemia Toe amputee Type 2 diabetes mellitus Surgical History Hx of appendectomy S/P arteriovenous (AV) fistula creation Social History Social History Household Members: Other Household Members Other:: [facility] Housing: Assisted Living Facility Do you presently have visiting nurse or other home services: Yes Alcohol intake: former Patient Tobacco Use Status: Never used Tobacco e-Cigarette/Vaping Use: Never Used Second Hand Smoke Exposure: No Advance Directives: Yes Advance Directives on File: Yes Advance Directives Date on File: 04/10/22 service: No Current occupational status: retired and disabled Cognitive needs: Yes Hearing needs: No Vision needs: No Physical Exam Vital Signs: Vital Signs: Last Vital Signs Temp 97.9 F 08/14/22 13:40 Pulse 68 08/14/22 13:40 Resp 18 08/14/22 13:40 BP 133/58 L 08/14/22 13:40 Pulse Ox 93 08/14/22 13:40 O2 Del Method 08/14/22 13:40 BMI result Body Mass Index 31.2 Vital signs have been reviewed as appeared to be correct. Blood pressure normal. Heart rate normal. Respiration rate normal. Temperature normal. Oxygen saturation normal. Appearance: Alert. Oriented X3. No acute distress. Head: Normal external exam. Normocephalic. Atraumatic. No Eugene signs noted. No raccoon eyes noted Eyes: PERRLA. EOMI. Conjunctiva and sclera normal. Eyelids normal. ENT: TM's Normal. Pharynx normal. Uvula midline. Moist mucous membranes. No trismus noted. No drooling noted. No muffled voice noted. Neck: Normal inspection. Neck supple. FROM. No adenopathy. Thyroid Normal. No meningeal signs. No neck mass noted. CVS: Normal heart rate and rhythm. Heart sound normal. No murmurs noted. Pulses normal throughout. Respiratory: No respiratory distress. Painless inspiration. Breath sounds normal. No wheezes/rales/rhonchi noted. Chest nontender. No accessory muscle usage noted or decreased air movement noted. Abdomen: Soft and nontender. Bowel sounds normal in all 4 quadrants. No distention noted. No organomegaly noted. No visible injury noted. Back: No CVA tenderness. Full range of motion noted. Skin: Skin warm and dry. Normal skin color. Normal skin turgor. No rashes/lesions/lacerations noted. Extremities: No lower extremity edema. Extremities exhibit normal range of motion. Extremities nontender. Neuro: Oriented X 3. Cranial nerve exam: II-XII are grossly intact No motor deficit. No sensory deficit. Reflexes normal. Course Course Course Narrative: A 76-year-old female status post mechanical fall at home patient is on anticoagulation a concern of head injury and interact. Patient is awake, alert, GCS of 15, head CT is unremarkable, C-spine CT is unremarkable will discharge the patient to follow-up with PCP. Medical Decision Making Differential Diagnosis Differential Diagnoses: The differential diagnosis associated with the presentation includes (Mechanical fall, intracranial bleed, cervical spine injury, bone fracture.) Independent Interpretation I performed an independent interpretation of an: CT Scan (Head and C-spine CT: No acute intracranial pathology, no C-spine injury.) Radiology Impression Discussion of test interpretation with radiology: I have reviewed the radiologist's reading. Discharge Plan Discharge Clinical Impression: Head injury, acute Patient Disposition: Home, Self-Care Instructions: Head Injury (ED) Prescriptions: No Action (DME) Extra depth orthopedic shoes (1 pair) with customized heat molded multidensity innersoles (3 pair) See Rx Instructions .Route .MEDSUPPLY Qty: 1 0RF Rx Instructions: As directed (DME) syringe with needle 3 mL 27 gauge x 1 1/4 syringe See Rx Instructions .Route Qty: 6 1RF Rx Instructions: As directed once a month (for Vitamin B12 injections) loratadine 10 mg tablet 10 mg PO DAILY 90 Days Qty: 90 3RF Rx Instructions: Take 1 tablet by mouth daily ferrous sulfate 325 mg (65 mg iron) tablet 325 mg PO DAILY Qty: 90 1RF hydralazine 25 mg tablet 25 mg PO TID 90 Days Qty: 270 3RF Protocol: Hold for SBP< HOLD for SBP < : 90 Eliquis 5 mg tablet 5 mg PO BID 90 Days Qty: 180 0RF (DME) blood-glucose meter [FreeStyle Lite Meter] Kit See Rx Instructions .Route Qty: 1 0RF Rx Instructions: As directed atorvastatin 40 mg tablet 40 mg PO BEDTIME Qty: 90 0RF cyanocobalamin (vitamin B-12) 1,000 mcg/mL solution 1,000 mcg IM Q4W Qty: 3 1RF Multaq 400 mg tablet 400 mg PO BID Qty: 60 3RF Rx Instructions: must administer with a meal/food insulin glargine [Lantus Solostar U-100 Insulin] 100 unit/mL (3 mL) insulin pen 8 unit subcut BEDTIME 90 Days Qty: 7.2 3RF Advair HFA 115-21 mcg/actuation HFA aerosol inhaler 2 puff inhalation Q12H 30 Days Qty: 12 11RF metoprolol tartrate 25 mg tablet 25 mg PO BID Qty: 60 5RF Protocol: Hold for SBP/HR < HOLD for SBP < : 90 HOLD for HR < : 60 (DME) lancets [FreeStyle Lancets] 28 gauge misc See Rx Instructions .ROUTE .MEDSUPPLY Qty: 100 12RF Rx Instructions: check BS 3x/day (DME) DIGITAL SCALE See Rx Instructions .Route .MEDSUPPLY Qty: 1 0RF Rx Instructions: As directed pantoprazole 40 mg tablet,delayed release (DR/EC) 40 mg PO DAILY@0630 30 Days Qty: 30 5RF gabapentin 100 mg capsule 100 mg PO BID 30 Days Qty: 60 1RF (DME) FreeStyle Lite Strips Strip See Rx Instructions .ROUTE .COMPLEX Qty: 100 12RF Dose Instruction: USE DIRECTED ONCE A DAY Rx Instructions: USE DIRECTED ONCE A DAY montelukast 10 mg tablet 10 mg PO BEDTIME Qty: 90 0RF levothyroxine 25 mcg tablet 25 mcg PO DAILY@0600 Qty: 90 0RF insulin lispro 100 unit/mL insulin pen 2 - 10 unit subcut QIDACHS Rx Instructions: PER SLIDING SCALE acetaminophen 325 mg Tablet 325 mg PO Q6H PRN (Reason: Mild Pain (Scale Score 1-4)) lidocaine 5 % adhesive patch,medicated 1 patch TOPICAL DAILY Protocol: Apply to: Apply to: NECK AND LEGS Rx Instructions: leave on most painful area for up to 12 hrs sevelamer carbonate 800 mg tablet 800 mg PO TIDWM Rx Instructions: must administer with a meal/food calcitriol 0.25 mcg Capsule 0.5 mcg PO 3XW Rx Instructions: administer after dialysis on dialysis days (DME) TRANSPORT WHEELCHAIR See Rx Instructions .Route .MEDSUPPLY Qty: 1 0RF Rx Instructions: As directed (DME) blood pressure monitor Kit See Rx Instructions .Route Qty: 1 0RF Rx Instructions: As directed (DME) pen needle, diabetic [BD Sandra 2nd Gen Pen Needle] 32 gauge x 5/32 needle See Rx Instructions .Route Qty: 50 0RF Rx Instructions: As directed (DME) blood-glucose meter [FreeStyle Lite Meter] Kit See Rx Instructions .Route Qty: 1 0RF Rx Instructions: As directed 3-4 times a day albuterol sulfate 90 mcg/actuation HFA aerosol inhaler 2 inh inhalation Q6H PRN (Reason: shortness of breath or wheezing) 30 Days Qty: 18 12RF Referrals: Lonnie Khan MD [Primary Care Provider] -
--- NOTE | 2022-08-14 16:20 | MHC.EDTECH ---
Oliva from [place] took booking for jesse to return home. After hours so a BLS truck will be sent ETA of [phone]
--- NOTE | 2022-08-14 18:45 | PC.NURSE ---
patient discharged home with BLS, family at home to receive patient.
== END 2022-08-14 18:46 | disposition home or self-care (01) ==
PROVIDERS: Emergency Provider Emergency Medicine; PCP Internal Medicine
DX: R42 Dizziness and giddiness (principal); I25.10 Atherosclerotic heart disease of native coronary artery without angina pectoris; R51.9 Headache, unspecified; M54.2 Cervicalgia; R40.2410 Glasgow coma scale score 13-15, unspecified time
CPT/HCPCS: 70450; 72125; 99282; 99284

== ENCOUNTER 2022-08-18 01:28 | Inpatient (IN) | payer OTHER, SELFPAY ==
[2022-08-18] VITALS (7 sets, daily range): BP systolic 132–206; BP diastolic 55–89; PULSE 59–71; RESP 12–22; TEMP 35.9–37.3; O2SAT 96–100; BMI 32.1
--- NOTE | ~2022-08-18 | CT_ITS ---
EXAMINATION: CT ABDOMEN AND PELVIS WITHOUT CONTRAST CLINICAL INFORMATION: Acute cholecystitis COMPARISON: 07/19/2022 TECHNIQUE: Multidetector volumetric imaging was performed from the superior aspect of the liver through the pubic symphysis. Sagittal and coronal reformatted images were obtained on the technologist's workstation. This CT examination was performed using dose optimization techniques as appropriate, variously including the following: *Automated exposure control *Adjustment of mA and/or kV according to patient size (this includes techniques or standardized protocols for targeted exams where dose is matched to indication/reason for exam; i.e. extremities or head) *Use of iterative reconstruction technique DLP: 867 mGy-cm FINDINGS: Suboptimal assessment in some regions due to motion artifact. LUNG BASES: Small pleural effusions. Coronary artery calcifications are present. LIVER, GALLBLADDER, AND BILIARY TREE: The liver is normal in size, shape, and attenuation. No focal hepatic lesion or biliary ductal dilatation is identified. Gallbladder is mildly distended with layering gallstones and mild mural prominence. PANCREAS: Unremarkable. SPLEEN: Unremarkable. ADRENAL GLANDS: Unremarkable. KIDNEYS AND URETERS: No hydronephrosis or obstructing calculus bilaterally. Nonspecific bilateral perinephric stranding. BLADDER: Unremarkable. GASTROINTESTINAL TRACT: No evidence of bowel obstruction. No significant bowel wall thickening is seen. Small amount of free fluid is present. No free air is seen. ABDOMINAL WALL: Anasarca noted. LYMPH NODES: No lymphadenopathy is seen, though assessment is limited in the absence of intravenous contrast. VASCULAR: There is extensive vascular calcification. PELVIC VISCERA: Unremarkable. OSSEOUS STRUCTURES: Degenerative changes are noted in the spine. CT/CT abdomen pelvis wo IV con IMPRESSION: 1. Mildly distended gallbladder with layering gallstones and mild nonspecific mural prominence. If there is clinical concern for cholecystitis, this would be better assessed with ultrasound. 2. Small amount of free fluid in the abdomen and pelvis. 3. Small pleural effusions. 4. Anasarca.
--- NOTE | ~2022-08-18 | US_ITS ---
EXAMINATION: US ABDOMEN LIMITED CLINICAL INFORMATION: Right upper quadrant pain. Rule out acute cholecystitis.. COMPARISON: CT from the same date TECHNIQUE: Limited real-time imaging of the right upper quadrant abdominal viscera. FINDINGS: The gallbladder wall is borderline thickened (4 mm) with echogenic sludge in the gallbladder. Small stones are suspected, though no shadowing stones are identified. Trace pericholecystic fluid. Common bile duct is at the upper limits of normal in size for age (7 mm) . No intraluminal abnormalities are identified. US/US abdomen limited IMPRESSION: Sonographic findings are suggestive of acute cholecystitis, though not conclusive. Consider correlation with a nuclear medicine hepatobiliary scan if there is clinical uncertainty..
--- NOTE | 2022-08-18 01:57 | ECG_ITS ---
Test Reason : ABD PAIN Blood Pressure : / mmHG Vent. Rate : 070 BPM Atrial Rate : 070 BPM P-R Int : 208 ms QRS Dur : 086 ms QT Int : 404 ms P-R-T Axes : 087 084 136 degrees QTc Int : 436 ms Normal sinus rhythm Nonspecific ST and T wave abnormality Abnormal ECG When compared with ECG of 19-JUL-2022 11:09, No significant change was found Referred By: Generic ED Physician Electronically Signed By:BETY NIÑO
[2022-08-18 01:59] LABS: Glucose, Whole Blood 216 mg/dL (60-115)
--- NOTE | 2022-08-18 02:12 | ED.ABDPAIN ---
HPI - Abdominal Pain General Chief Complaint: Abdominal Pain Stated Complaint: right abdominal pain Time Seen by Provider: 08/18/22 02:01 Source: patient and EMS Mode of arrival: EMS Limitations: no limitations History of Present Illness HPI narrative: Patient comes to the emergency room complaining of 10 hours of right upper quadrant pain radiating towards the back. Patient states that it started after she ate fried pork. Patient is nausea vomiting or diarrhea Related Data Home Medications Medication Instructions Recorded Confirmed insulin lispro 100 unit/mL 2 - 10 unit subcut QIDACHS 04/15/22 08/05/22 subcutaneous pen acetaminophen 325 mg tablet 325 mg PO Q6H PRN Mild Pain (Scale 07/19/22 08/05/22 Score 1-4) calcitriol 0.25 mcg capsule 0.5 mcg PO 3XW 07/19/22 08/05/22 lidocaine 5 % topical patch 1 patch topical DAILY 07/19/22 08/05/22 sevelamer carbonate 800 mg tablet 800 mg PO TIDWM 07/19/22 08/05/22 Previous Rx's Medication Instructions Recorded TRANSPORT WHEELCHAIR #1 ea 08/03/21 blood pressure monitor #1 ea 08/03/21 blood-glucose meter (FreeStyle #1 ea 11/12/21 Lite Meter kit) Extra depth orthopedic shoes (1 #1 ea 11/16/21 pair) with customized heat molded multidensity innersoles (3 pair) syringe with needle 3 mL 27 gauge #6 ea 03/08/22 x 1 1/4 loratadine 10 mg tablet 10 mg PO DAILY 90 days #90 tabs 04/29/22 ferrous sulfate 325 mg (65 mg 325 mg PO DAILY #90 tabs 05/06/22 iron) tablet hydralazine 25 mg tablet 25 mg PO TID 90 days #270 tabs 05/13/22 pen needle, diabetic 32 gauge x #50 ea 06/05/22 (BD Sandra 2nd Gen Pen Needle) albuterol sulfate 90 mcg/actuation 2 inh inhalation Q6H PRN shortness 06/10/22 aerosol inhaler of breath or wheezing 30 days #18 grams apixaban 5 mg tablet (Eliquis) 5 mg PO BID 90 days #180 tabs 06/12/22 blood-glucose meter (FreeStyle #1 ea 06/12/22 Lite Meter kit) Multaq 400 mg tablet (dronedarone) 400 mg PO BID #60 tabs 06/13/22 atorvastatin 40 mg tablet 40 mg PO BEDTIME #90 tabs 06/13/22 cyanocobalamin (vitamin B-12) 1,000 mcg IM Q4W #3 mL 06/13/22 1,000 mcg/mL injection solution fluticasone propionate 115 2 puff inhalation Q12H 30 days #12 06/13/22 mcg-salmeterol 21 mcg/actuation grams HFA inhaler (Advair HFA) insulin glargine 100 unit/mL (3 8 unit (0.08 mL) subcut BEDTIME 90 06/13/22 mL) subcutaneous pen (Lanus days #7.2 mL Solostar U-100 Insulin) lancets 28 gauge (FreeStyle #100 ea 06/13/22 Lancets) metoprolol tartrate 25 mg tablet 25 mg PO BID #60 tabs 06/13/22 DIGITAL SCALE #1 ea 06/14/22 pantoprazole 40 mg tablet,delayed 40 mg PO DAILY@0630 30 days #30 06/29/22 release tabs gabapentin 100 mg capsule 100 mg PO BID 30 days #60 caps 07/09/22 blood sugar diagnostic (FreeStyle #100 strips 08/05/22 Lite Strips) montelukast 10 mg tablet 10 mg PO BEDTIME #90 tabs 08/05/22 levothyroxine 25 mcg tablet 25 mcg PO DAILY@0600 #90 tabs 08/12/22 Allergies Allergy/AdvReac Type Severity Reaction Status Date / Time No Known Allergies Allergy Verified 08/05/22 10:24 Review of Systems Review of Systems Constitutional : No Weight loss, No Fever, No Chills, No Night Sweats, No Fatigue, No Malaise ENT/Mouth : No Hearing loss, No Ear Pain, No Nasal Congestion, No Sinus Pain, No Hoarseness, No sore throat, No Rhinorrhea, No Swallowing Difficulty Eyes: No Eye Pain, No Swelling, No Redness, No Foreign Body, No Discharge, No Vision Changes Cardiovascular : No Chest Pain, No SOB, No Dyspnea on Exertion, No Orthopnea, No Edema, No Palpitations Respiratory : No Cough, No Sputum, No Wheezing, No Smoke Exposure, No Dyspnea Gastrointestinal : Denies nausea vomiting and diarrhea, complaining of right upper quadrant pain, radiating towards the back follow-up next 10 hours Genitourinary : no irregular bleeding, No Dysuria, No Urinary Frequency, No Hematuria, No Urinary Incontinence, No Urgency, No Flank Pain, No Urinary Flow Changes, No Hesitancy Musculoskeletal : No joint pain, No Myalgias, No Joint Swelling Skin : No Skin Lesions, No rash Neuro : No Weakness, No Numbness, No Paresthesias, No Loss of Consciousness, No Dizziness, No Headache Psych : No Anxiety/Panic, No Depression, No SI/HI/AH/VH, No Social Issues, Heme/Lymph: No Bruising, No Bleeding,No Lymphadenopathy Endocrine : No Polyuria, No Polydipsia, No Temperature Intolerance FOR[facility]LY [facility], [facility] Past Medical History Medical History Acute pericardial effusion Anemia Anemia 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 Benign essential hypertension CAD (coronary artery disease) Chronic anticoagulation Chronic kidney disease, stage 4 (severe) Dyspnea ESRD (end stage renal disease) ESRD (end stage renal disease) ESRD on dialysis Fluid overload Gastric ulcer GERD (gastroesophageal reflux disease) Hemodialysis patient HLD (hyperlipidemia) Hypertension Hypothyroidism Iron deficiency Nephrotic range proteinuria Obesity (BMI 30-39.9) Osteoarthritis Osteopenia PAF (paroxysmal atrial fibrillation) PAF (paroxysmal atrial fibrillation) Paroxysmal atrial fibrillation Pernicious anemia Pure hypercholesterolemia Toe amputee Type 2 diabetes mellitus Surgical History Hx of appendectomy S/P arteriovenous (AV) fistula creation Social History Social History Household Members: Other Household Members Other:: [facility] Housing: Assisted Living Facility Do you presently have visiting nurse or other home services: Yes Alcohol intake: former Patient Tobacco Use Status: Never used Tobacco Smoked in Last 30 Days: No e-Cigarette/Vaping Use: Never Used Second Hand Smoke Exposure: No Use of substances other than those prescribed or required for medical reasons: No Advance Directives: No Advance Directives Date on File: 04/10/22 service: No Current occupational status: retired and disabled Cognitive needs: Yes Hearing needs: No Vision needs: No Physical Exam ED Vital Signs: Vital Signs - 24 hr 08/18/22 01:33 08/18/22 02:47 08/18/22 05:04 Temperature 99.2 F 97.9 F Pulse Rate 69 70 71 Respiratory Rate 22 H 14 14 Blood Pressure 179/73 H 206/89 H 153/72 H Pulse Oximetry 100 100 96 Oxygen Delivery Method Nasal Cannula Nasal Cannula Nasal Cannula Oxygen Flow Rate 2 2 BMI result Body Mass Index 32.1 Const Other: Appearance: Alert. Oriented X3. No acute distress. Eyes: Pupils equal, round and reactive to light. ENT: Pharynx normal. Neck: Normal inspection. Neck supple. No lymph nodes noted. No crepitus CVS: Normal heart rate and rhythm. Pulses normal. Normal S1 and S2 Respiratory: No respiratory distress. Breath sounds normal. No Wheezing. No rales Abdomen: Soft , tender to palpation in right upper quadrant, positive Marshall sign Skin: Skin warm and dry. Normal skin color. Normal skin turgor. Extremities: No lower extremity edema. No Lacerations. No Rash Neuro: Oriented X 3. No motor deficit. No sensory deficit. Moving all extremities. No slurred speech. CN 2 through 12 grossly intact Psych: calm, cooperative, normal affect Course Course Course Narrative: -patient's vitals stable -of patient's labs and imaging pending Medical Decision Making Medical Decision Making MDM Narrative: -patient given 1 dose of IV Dilaudid. -LFTs are elevated. On physical exam, patient had a positive Marshall sign. Patient likely having cholecystitis. Patient being treated empirically with antibiotics. -ultrasound would be better for imaging. However, at this time, ultrasound will not be available for the next 2-3 hours. We will go ahead and get a CT scan. -CT scan shows likely cholecystitis. Given the patient's LFTs and physical exam, patient does have cholecystitis. -I discussed the patient with Dr. Santacruz from surgery, patient to be admitted by Internal Medicine, also requesting GI consult for transaminitis -Dr. Guan agree to admit the patient. Differential Diagnosis Differential Diagnoses: The differential diagnosis associated with the presentation includes (Biliary colic, cholecystitis, pancreatitis) Admission/Observation Consideration of admission/observation: Escalation of care including admission/observation considered Consult Healthcare Provider Management of the patient was discussed with: Hospitalist and Manager Branch Lab Data [facility] Lab Attestation statement: I reviewed the patient's lab results. 08/18/22 02:26 08/18/22 03:05 Labs: Lab Results 08/18/22 08/18/22 08/18/22 Range/Units 01:54 02:26 02:27 WBC 8.4 (4.8-10.8) X10*3/uL RBC 3.35 L (4.20-5.50) X10*6/uL Hgb 10.4 L (12.0-16.0) g/dl Hct 32.0 L (37.0-47.0) % MCV 95.5 (80.0-98.0) fL MCH 31.0 (27.0-33.0) pg MCHC 32.5 (31.0-35.0) g/dl RDW 14.7 (11.0-16.0) % Plt Count 135 L (160-400) X10*3/uL MPV 11.6 (9.4-12.3) fL Immature Gran % (Auto) 0.5 H (0.0-0.4) % Neut % (Auto) 78.7 H (45-73) % Lymph % (Auto) 5.8 L (20-40) % Craig % (Auto) 9.5 (2-11) % Eos % (Auto) 4.9 H (0-4) % Baso % (Auto) 0.6 (0-2) % Lymph # (Auto) 0.5 L (1.2-4.9) X10*3/uL Craig # (Auto) 0.8 (0.1-1.2) X10*3/uL Eos # (Auto) 0.4 (0.0-0.4) X10*3/uL Baso # (Auto) 0.1 (0.0-0.2) X10*3/uL Abs Immat Gran (auto) 0.04 H (0.00-0.03) X10*3/uL Absolute Neuts (auto) 6.6 (2.0-8.3) x10*3/uL Absolute Nucleated RBC 0.000 (0.0-0.012) X10*3/uL Nucleated RBC % (auto) 0.0 (0.0-0.2) /100WBC Sodium (135-145) mmol/L Potassium (3.3-5.1) mmol/L Chloride (96-108) mmol/L Carbon Dioxide (22-29) mmol/L Anion Gap (12-20) BUN (9-16) mg/dL Creatinine (0.5-1.4) mg/dL Estim Creat Clear Calc Estimated GFR POC Glucose 216 H (60-115) mg/dL Random Glucose (60-115) mg/dL Lactic Acid (0.5-2.0) mmol/L Calcium (8.4-10.2) mg/dL Total Bilirubin (0.0-1.0) mg/dL Direct Bilirubin (0.0-0.5) mg/dL AST (5-31) U/L ALT (0-31) U/L Alkaline Phosphatase (39-117) U/L Troponin I High Sens 153.8 H* D (<3.5-17.0) ng/L Total Protein (6.5-8.0) g/dL Albumin (3.5-5.0) g/dL Lipase (8-78) U/L COVID-19 ([facility]EN[facility]) (Negative) COVID-19 Clin Com 08/18/22 08/18/22 08/18/22 Range/Units 02:27 03:05 05:54 WBC (4.8-10.8) X10*3/uL RBC (4.20-5.50) X10*6/uL Hgb (12.0-16.0) g/dl Hct (37.0-47.0) % MCV (80.0-98.0) fL MCH (27.0-33.0) pg MCHC (31.0-35.0) g/dl RDW (11.0-16.0) % Plt Count (160-400) X10*3/uL MPV (9.4-12.3) fL Immature Gran % (Auto) (0.0-0.4) % Neut % (Auto) (45-73) % Lymph % (Auto) (20-40) % Craig % (Auto) (2-11) % Eos % (Auto) (0-4) % Baso % (Auto) (0-2) % Lymph # (Auto) (1.2-4.9) X10*3/uL Craig # (Auto) (0.1-1.2) X10*3/uL Eos # (Auto) (0.0-0.4) X10*3/uL Baso # (Auto) (0.0-0.2) X10*3/uL Abs Immat Gran (auto) (0.00-0.03) X10*3/uL Absolute Neuts (auto) (2.0-8.3) x10*3/uL Absolute Nucleated RBC (0.0-0.012) X10*3/uL Nucleated RBC % (auto) (0.0-0.2) /100WBC Sodium 138 (135-145) mmol/L Potassium 3.6 D (3.3-5.1) mmol/L Chloride 96 (96-108) mmol/L Carbon Dioxide 29 (22-29) mmol/L Anion Gap 17 (12-20) BUN 17 H (9-16) mg/dL Creatinine 2.89 H (0.5-1.4) mg/dL Estim Creat Clear Calc 17.9 Estimated GFR 16 POC Glucose (60-115) mg/dL Random Glucose 245 H (60-115) mg/dL Lactic Acid 0.9 (0.5-2.0) mmol/L Calcium 8.7 D (8.4-10.2) mg/dL Total Bilirubin 4.4 H (0.0-1.0) mg/dL Direct Bilirubin 2.7 H (0.0-0.5) mg/dL AST 37 H (5-31) U/L ALT 37 H (0-31) U/L Alkaline Phosphatase 655 H (39-117) U/L Troponin I High Sens (<3.5-17.0) ng/L Total Protein 5.9 L (6.5-8.0) g/dL Albumin 3.3 L (3.5-5.0) g/dL Lipase 34 (8-78) U/L COVID-19 ([facility]EN[facility]) Negative (Negative) COVID-19 Clin Com See Note Independent Interpretation I performed an independent interpretation of an: CT Scan (Interpretation of abdominal CT scan: Thickened gallbladder, patient has ascites) Radiology Impression Discussion of test interpretation with radiology: I have reviewed the radiologist's reading. Radiologist Impression: FINDINGS: Suboptimal assessment in some regions due to motion artifact. LUNG BASES: Small pleural effusions. Coronary artery calcifications are present.? LIVER, GALLBLADDER, AND BILIARY TREE: The liver is normal in size, shape, and attenuation. No focal hepatic lesion or biliary ductal dilatation is identified. Gallbladder is mildly distended with layering gallstones and mild mural prominence.? PANCREAS: Unremarkable.? SPLEEN: Unremarkable.? ADRENAL GLANDS: Unremarkable.? KIDNEYS AND URETERS: No hydronephrosis or obstructing calculus bilaterally. Nonspecific bilateral perinephric stranding.? BLADDER: Unremarkable.? GASTROINTESTINAL TRACT: No evidence of bowel obstruction. No significant bowel wall thickening is seen. Small amount of free fluid is present. No free air is seen. ABDOMINAL WALL: Anasarca noted. LYMPH NODES: No lymphadenopathy is seen, though assessment is limited in the absence of intravenous contrast. VASCULAR: There is extensive vascular calcification. PELVIC VISCERA: Unremarkable. OSSEOUS STRUCTURES: Degenerative changes are noted in the spine. CT/CT abdomen pelvis wo IV con IMPRESSION: 1.? Mildly distended gallbladder with layering gallstones and mild nonspecific mural prominence. If there is clinical concern for cholecystitis, this would be better assessed with ultrasound. 2.? Small amount of free fluid in the abdomen and pelvis. 3.? Small pleural effusions. 4.? Anasarca. ? Medications Administered Discontinued Medications Generic Name Dose Route Start Last Admin Trade Name Freq PRN Reason Stop Dose Admin Hydromorphone HCl 1 mg 08/18/22 04:53 08/18/22 05:02 Hydromorphone Hcl 1 Mg/Ml Syringe IVPUSH 08/18/22 04:54 1 mg ONCE ONE Administration Protocol Piperacillin Sod/Tazobactam 50 mls @ 100 mls/hr 08/18/22 05:00 08/18/22 06:10 Sod 3.375 gm/ Sodium Chloride IV 08/18/22 05:29 100 mls/hr ONCE ONE Administration Critical Care Time Critical Care Time Critical Care Time: Yes Total Critical Care Time: 60 Attestation: I have personally provided critical care time. Time includes review of lab data, radiology results, discussion with consultants, and monitoring for potential decompensation. Intervention performed as documented. Discharge Plan Discharge Clinical Impression: Acute cholecystitis, Elevated transaminase level Patient Disposition: Admitted As Inpatient
[2022-08-18 02:33] LABS: MANUAL DIFF FLAG NO
[2022-08-18 02:35] LABS: Basophils Absolute Auto 0.1 X10*3/uL (0.0-0.2); Basophils Percent Auto 0.6 % (0-2); Eosinophils Absolute Auto 0.4 X10*3/uL (0.0-0.4); Eosinophils Percent Auto 4.9 % (0-4); Hemoglobin 10.4 g/dl (12.0-16.0); Imm Gran Abs Auto 0.04 X10*3/uL (0.00-0.03); Imm Gran Pct Auto 0.5 % (0.0-0.4); Lymphocytes Absolute Auto 0.5 X10*3/uL (1.2-4.9); Lymphocytes Percent Auto 5.8 % (20-40); Mean Corpuscular HGB Conc 32.5 g/dl (31.0-35.0); Mean Corpuscular Volume 95.5 fL (80.0-98.0); Mean Platelet Volume 11.6 fL (9.4-12.3); Monocytes Absolute Auto 0.8 X10*3/uL (0.1-1.2); Monocytes Percent Auto 9.5 % (2-11); Neutrophils Absolute Auto 6.6 x10*3/uL (2.0-8.3); Neutrophils Percent Auto 78.7 % (45-73); Platelet Count 135 X10*3/uL (160-400); Red Blood Count 3.35 X10*6/uL (4.20-5.50); Red Cell Distribution Width 14.7 % (11.0-16.0); White Blood Count 8.4 X10*3/uL (4.8-10.8)
[2022-08-18 02:53] LABS: COVID-19 Test Negative (Negative); IDNOW Serial# 6674DD1D
[2022-08-18 02:57] LABS: Troponin-I High Sensitivity 153.8 ng/L (<3.5-17.0)
[2022-08-18 04:14] LABS: Alanine Aminotransferase 37 U/L (0-31); Albumin Level 3.3 g/dL (3.5-5.0); Alkaline Phosphatase 655 U/L (39-117); Anion Gap 17 (12-20); Aspartate Amino Transferase 37 U/L (5-31); Bilirubin Direct 2.7 mg/dL (0.0-0.5); Bilirubin Total 4.4 mg/dL (0.0-1.0); Blood Urea Nitrogen 17 mg/dL (9-16); Calcium 8.7 mg/dL (8.4-10.2); Carbon Dioxide 29 mmol/L (22-29); Chloride 96 mmol/L (96-108); Creatinine Clr Calc Pharmacy 17.9; Estimated Glomerular Filt Rate 16; Glucose Random 245 mg/dL (60-115); Lipase 34 U/L (8-78); Potassium 3.6 mmol/L (3.3-5.1); Sodium 138 mmol/L (135-145); Total Protein 5.9 g/dL (6.5-8.0)
[2022-08-18] MEDS: HYDROmorphone HCl 1 MG/ML SYRINGE IVPUSH (05:02)
--- NOTE | 2022-08-18 05:36 | PC.NURSE ---
delay in administration of iv antibiotics. this rn asked dr tse if blood cultures and LA were needed. per dr tse please draw LA and blood cultures.
[2022-08-18] MEDS: Piperacillin Sodium/Tazobactam 3.375 GM in 0.9 % Sodium Chloride 50 ML IV (06:10)
[2022-08-18 06:13] LABS: Lactic Acid 0.9 mmol/L (0.5-2.0)
--- NOTE | 2022-08-18 06:14 | PC.NURSE ---
pt medicated according mar. astudillo to blood cultures and lactic being ordered after antibiotic was placed
[2022-08-18 08:01] LABS: Troponin-I High Sensitivity 162.5 ng/L (<3.5-17.0)
--- NOTE | 2022-08-18 09:01 | P.CONGS_ITS ---
History of Present Illness Consult details Consult date: 08/18/22 Reason for consult: abdominal pain Narrative: 76-year-old female patient presenting with complaints of right upper quadrant abdominal pain, presenting to the emergency department after approximately 10 hours duration. The pain began after eating fried pork. 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 She presented to the emergency department for further workup. Evaluation revealed tenderness in the right upper quadrant with a positive Marshall sign. Laboratories revealed a WBC of 8.4, glucose of 245, total bilirubin of 4.4, direct bilirubin of 2.7, and alkaline phosphatase of 655. CT abdomen and pelvis revealed the gallbladder which is mildly distended with layering gallstones and mild mural prominence. Anasarca is noted in the abdominal wall. Ultrasound reveals gallbladder wall minimally thickened at 4 mm echogenic sludge in the gallbladder. There is trace pericholecystic fluid. HIDA scan is recommended if there is clinical uncertainty. This morning the patient does report continued pain in the right upper quadrant although improved from yesterday. Review of Systems Review of Systems: Yes all other systems are reviewed and are negative Constitutional: Constitutional: Denies chills, Denies fever(s), Denies headache(s), Denies poor appetite and Denies weakness ENT: Denies headache(s) Cardiovascular: Cardiovascular: Denies chest pain, Reports palpitations and Denies dyspnea Respiratory: Respiratory: Denies cough, Denies excessive phlegm production and Denies dyspnea Gastrointestinal: Gastrointestinal: Reports abdominal pain, Denies bloating, Denies change in bowel habits, Denies constipation, Denies heartburn, Denies diarrhea, Reports nausea and Denies vomiting Genitourinary: Genitourinary: Denies urinary frequency Musculoskeletal: Musculoskeletal: Denies back pain, Denies muscle weakness and Denies numbness Integumentary/Breasts: Skin/Breast: Denies changing lesions and Denies unusual bruising Neurologic: Denies headache(s), Denies numbness, Denies paresthesias and Denies weakness Psychiatric: Psychiatric: Denies anxiety and Denies depression Endocrine: Endocrine: Reports palpitations Hematologic/Lymphatic: Hematologic/Lymphatic: Denies lymphadenopathy PMFSH Past Medical History Medical History Acute pericardial effusion Anemia Anemia 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 Benign essential hypertension CAD (coronary artery disease) Chronic anticoagulation Chronic kidney disease, stage 4 (severe) Dyspnea ESRD (end stage renal disease) ESRD (end stage renal disease) ESRD on dialysis Fluid overload Gastric ulcer GERD (gastroesophageal reflux disease) Hemodialysis patient HLD (hyperlipidemia) Hypertension Hypothyroidism Iron deficiency Nephrotic range proteinuria Obesity (BMI 30-39.9) Osteoarthritis Osteopenia PAF (paroxysmal atrial fibrillation) PAF (paroxysmal atrial fibrillation) Paroxysmal atrial fibrillation Pernicious anemia Pure hypercholesterolemia Toe amputee Type 2 diabetes mellitus Surgical History Surgical History Hx of appendectomy S/P arteriovenous (AV) fistula creation Social History Social History Household Members: Other [facility] Housing: Assisted Living Facility Do you presently have visiting nurse or other home services: Yes Alcohol intake: former Patient Tobacco Use Status: Never used Tobacco Smoked in Last 30 Days: No e-Cigarette/Vaping Use: Never Used Second Hand Smoke Exposure: No Use of substances other than those prescribed or required for medical reasons: No Advance Directives: No Advance Directives Date on File: 04/10/22 service: No Current occupational status: retired and disabled Cognitive needs: Yes Hearing needs: No Vision needs: No Meds Allergies Allergy/AdvReac Type Severity Reaction Status Date / Time No Known Allergies Allergy Verified 08/05/22 10:24 Home Medications Medication Instructions Recorded Confirmed Last Taken Type insulin lispro 100 unit/mL 2 - 10 unit subcut QIDACHS 04/15/22 08/05/22 Unknown History subcutaneous pen acetaminophen 325 mg tablet 325 mg PO Q6H PRN Mild Pain (Scale 07/19/22 08/05/22 Unknown History Score 1-4) calcitriol 0.25 mcg capsule 0.5 mcg PO 3XW 07/19/22 08/05/22 Unknown History lidocaine 5 % topical patch 1 patch topical DAILY 07/19/22 08/05/22 Unknown History sevelamer carbonate 800 mg tablet 800 mg PO TIDWM 07/19/22 08/05/22 Unknown History Physical Exam Vital Signs: Vital Signs: Last Vital Signs Temp 97.8 F 08/18/22 08:53 Pulse 59 08/18/22 08:53 Resp 16 08/18/22 08:53 BP 175/69 H 08/18/22 08:53 Pulse Ox 99 08/18/22 08:53 O2 Del Method 08/18/22 08:53 O2 Flow Rate 2 08/18/22 08:53 Oxygen Flow Rate 2 08/18/22 01:33 BMI result Body Mass Index 32.1 Const: General: cooperative and no acute distress Nutritional Appearance: well nourished Orientation/consciousness: patient oriented x3 Limitations: no limitations HEENT: Head: Yes normocephalic and Yes atraumatic Ears: hearing grossly normal bilaterally Resp: Effort & Inspection: normal respiratory effort, no audible wheezes, no cough and no respiratory distress Cardio: Jugular venous distension: no JVD GI: Inspection: Yes normal to inspection Palpation (GI): Soft to palpation, Tenderness to palpation present (GI) in the RUQ; Marshall's sign negative, no guarding and not rigid Skin: Other: Warm, dry, no rash Neuro: General: patient oriented x3 Extrem: General: Yes no clubbing, cyanosis or edema Results Labs 08/18/22 02:26 08/18/22 03:05 Labs: Abnormal lab results 08/18/22 08/18/22 08/18/22 Range/Units 01:54 02:26 02:27 RBC 3.35 L (4.20-5.50) X10*6/uL Hgb 10.4 L (12.0-16.0) g/dl Hct 32.0 L (37.0-47.0) % Plt Count 135 L (160-400) X10*3/uL Immature Gran % (Auto) 0.5 H (0.0-0.4) % Neut % (Auto) 78.7 H (45-73) % Lymph % (Auto) 5.8 L (20-40) % Eos % (Auto) 4.9 H (0-4) % Lymph # (Auto) 0.5 L (1.2-4.9) X10*3/uL Abs Immat Gran (auto) 0.04 H (0.00-0.03) X10*3/uL BUN (9-16) mg/dL Creatinine (0.5-1.4) mg/dL POC Glucose 216 H (60-115) mg/dL Random Glucose (60-115) mg/dL Total Bilirubin (0.0-1.0) mg/dL Direct Bilirubin (0.0-0.5) mg/dL AST (5-31) U/L ALT (0-31) U/L Alkaline Phosphatase (39-117) U/L Troponin I High Sens 153.8 H* D (<3.5-17.0) ng/L Total Protein (6.5-8.0) g/dL Albumin (3.5-5.0) g/dL 08/18/22 08/18/22 Range/Units 03:05 06:17 RBC (4.20-5.50) X10*6/uL Hgb (12.0-16.0) g/dl Hct (37.0-47.0) % Plt Count (160-400) X10*3/uL Immature Gran % (Auto) (0.0-0.4) % Neut % (Auto) (45-73) % Lymph % (Auto) (20-40) % Eos % (Auto) (0-4) % Lymph # (Auto) (1.2-4.9) X10*3/uL Abs Immat Gran (auto) (0.00-0.03) X10*3/uL BUN 17 H (9-16) mg/dL Creatinine 2.89 H (0.5-1.4) mg/dL POC Glucose (60-115) mg/dL Random Glucose 245 H (60-115) mg/dL Total Bilirubin 4.4 H (0.0-1.0) mg/dL Direct Bilirubin 2.7 H (0.0-0.5) mg/dL AST 37 H (5-31) U/L ALT 37 H (0-31) U/L Alkaline Phosphatase 655 H (39-117) U/L Troponin I High Sens 162.5 H* (<3.5-17.0) ng/L Total Protein 5.9 L (6.5-8.0) g/dL Albumin 3.3 L (3.5-5.0) g/dL Short CBC 08/18/22 Range/Units 02:26 WBC 8.4 (4.8-10.8) X10*3/uL Hgb 10.4 L (12.0-16.0) g/dl Hct 32.0 L (37.0-47.0) % Plt Count 135 L (160-400) X10*3/uL BMP 08/18/22 03:05 Sodium 138 Potassium 3.6 D Chloride 96 Carbon Dioxide 29 BUN 17 H Creatinine 2.89 H Calcium 8.7 D Liver Function 08/18/22 Range/Units 03:05 Total Bilirubin 4.4 H (0.0-1.0) mg/dL Direct Bilirubin 2.7 H (0.0-0.5) mg/dL AST 37 H (5-31) U/L ALT 37 H (0-31) U/L Alkaline Phosphatase 655 H (39-117) U/L Albumin 3.3 L (3.5-5.0) g/dL All other labs normal. Assessment and Plan (1) Acute cholecystitis: Status: Acute (2) Elevated transaminase level: Status: Acute Plan 76-year-old female patient with multiple medical problems presenting with complaints of right upper quadrant abdominal pain after eating fried pork. Workup reveals elevated transaminase and alkaline phosphatase levels as well as elevated bilirubin levels. Workup reveals sludge within the gallbladder with possible pericholecystic fluid. CT seems indicate layering stones as well. Incidentally noted is anasarca within the abdominal wall which could explain the pericholecystic fluid. Patient seems to have a very mild acute cholecystitis or biliary colic episode. Given her multiple medical problems including CHF, PAF on anticoagulation, COPD, among others, non operative management may be best (strict low-fat diet once back on p.o.). LFT should be trended. They remain elevated, HIDA scan would be helpful. I will follow along during her hospitalization. Time Spent With Patient Time: Total time managing care of this patient today ____ minutes. Procedures Date of Service Date of Service: 08/18/22
--- NOTE | 2022-08-18 13:27 | P.HPHOSP_ITS ---
History of Present Illness Date of Service: 08/18/22 Chief Complaint: Right upper quadrant pain A 76 years old lady with PMH of diabetes, AFib, CHF, ESRD on HD among others who presents to the hospital complaining of right upper quadrant pain for 1 day prior to admission. The patient had the pain started after eating fried pork and has been steady since then with associated chills but no fevers. She reports having nausea but no vomiting or change in bowel habit. Denies any chest pain, shortness of breath or urinary symptoms. She had her dialysis session yesterday as she is on schedule of TTS. CT scan of the abdomen showed distended gallbladder with many gallstones. Evaluated by surgical team a admitted to the medical service for IV antibiotics and possible surgery. Review of Systems Review of Systems: No fever,but has chills and weakness No chest pain, palpitation No shortness of breath or coughing RUQ abdominal pain with nausea but no vomiting No urinary symptoms No any rash or wounds PMFSH Medical History Acute pericardial effusion Anemia Anemia 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 Benign essential hypertension CAD (coronary artery disease) Chronic anticoagulation Chronic kidney disease, stage 4 (severe) Dyspnea ESRD (end stage renal disease) ESRD (end stage renal disease) ESRD on dialysis Fluid overload Gastric ulcer GERD (gastroesophageal reflux disease) Hemodialysis patient HLD (hyperlipidemia) Hypertension Hypothyroidism Iron deficiency Nephrotic range proteinuria Obesity (BMI 30-39.9) Osteoarthritis Osteopenia PAF (paroxysmal atrial fibrillation) PAF (paroxysmal atrial fibrillation) Paroxysmal atrial fibrillation Pernicious anemia Pure hypercholesterolemia Toe amputee Type 2 diabetes mellitus Surgical History Hx of appendectomy S/P arteriovenous (AV) fistula creation Social History Household Members: Other Household Members Other:: [facility] Housing: Assisted Living Facility Do you presently have visiting nurse or other home services: Yes Alcohol intake: former Patient Tobacco Use Status: Never used Tobacco Smoked in Last 30 Days: No e-Cigarette/Vaping Use: Never Used Second Hand Smoke Exposure: No Use of substances other than those prescribed or required for medical reasons: No Advance Directives: No Advance Directives Date on File: 04/10/22 service: No Current occupational status: retired and disabled Cognitive needs: Yes Hearing needs: No Vision needs: No Meds Allergies Allergy/AdvReac Type Severity Reaction Status Date / Time No Known Allergies Allergy Verified 08/05/22 10:24 Active Medications: Current Medications Acetaminophen (Acetaminophen 325 Mg Tablet) 650 mg PO Q6H PRN PRN Reason: Pain, Mild (Pain Scale 1-3) Enoxaparin Sodium (Enoxaparin Sodium 40 Mg/0.4 Ml Syringe) 80 mg SUBCUT Q24H MARKIE Sodium Chloride (Ns) 1,000 mls @ 100 mls/hr IVCONT .Q10H MARKIE Ceftriaxone Sodium 1 gm/ (Sodium Chloride) 50 mls @ 100 mls/hr IV Q24H MARKIE Metronidazole (Flagyl) 500 mg in 100 mls @ 100 mls/hr IV Q8H MARKIE Insulin Human Lispro (Insulin Lispro 100 Unit/Ml 3 Ml Vial) 0 unit SUBCUT QIDACHS [facility]; Protocol Morphine Sulfate (Morphine Sulfate 4 Mg/Ml Cartridge) 2 mg IVPUSH Q4H PRN; Protocol PRN Reason: Pain, Severe (Pain Scale 7-10) Ondansetron HCl (Ondansetron Hcl 4 Mg/2 Ml Vial) 4 mg IVPUSH Q8H PRN PRN Reason: Nausea and Vomiting Pharmacy Consult (Consult Rx Perform Med Rec) 1 each MISCELLANE ONCE PRN PRN Reason: Consult order Sodium Chloride (0.9 % Sodium Chloride Flush 3 Ml Syringe) 3 ml IVFLUSH QSHIFT [facility] Home Medications Medication Instructions Recorded Confirmed Last Taken Type insulin lispro 100 unit/mL 2 - 10 unit subcut QIDACHS 04/15/22 08/05/22 Unknown History subcutaneous pen acetaminophen 325 mg tablet 325 mg PO Q6H PRN Mild Pain (Scale 07/19/22 08/05/22 Unknown History Score 1-4) calcitriol 0.25 mcg capsule 0.5 mcg PO 3XW 07/19/22 08/05/22 Unknown History lidocaine 5 % topical patch 1 patch topical DAILY 07/19/22 08/05/22 Unknown History sevelamer carbonate 800 mg tablet 800 mg PO TIDWM 07/19/22 08/05/22 Unknown History Physical Exam Vital Signs and Narrative: Vital Signs: Last Vital Signs Temp 97.7 F 08/18/22 11:57 Pulse 61 08/18/22 11:57 Resp 12 08/18/22 11:57 BP 177/55 H 08/18/22 11:57 Pulse Ox 98 08/18/22 11:57 O2 Del Method 08/18/22 11:57 O2 Flow Rate 2 08/18/22 11:57 Oxygen Flow Rate 2 08/18/22 01:33 BMI result Body Mass Index 32.1 Const: Other: Constitutional : Awake, interactive, not in distress Neck : Normal inspection, Supple Cardiovascular : RRR, no JVP, no lower extremity edema Respiratory : fair bilateral air entry, no crackles, wheezes or rhonchi Gastrointestinal: soft, lax, Normal bowel sounds, RUQ tenderness with negative kenney sign Skin : Warm, Dry Neurological : Alert & oriented x3, No focal deficit Results Labs 08/18/22 02:26 08/18/22 03:05 Labs: Laboratory Results - last 24 hr 08/18/22 08/18/22 08/18/22 01:54 02:26 02:27 MCV 95.5 MCH 31.0 MCHC 32.5 RDW 14.7 Plt Count 135 L MPV 11.6 Immature Gran % (Auto) 0.5 H Neut % (Auto) 78.7 H Lymph % (Auto) 5.8 L Caroline % (Auto) 9.5 Eos % (Auto) 4.9 H Baso % (Auto) 0.6 Lymph # (Auto) 0.5 L Caroline # (Auto) 0.8 Eos # (Auto) 0.4 Baso # (Auto) 0.1 Abs Immat Gran (auto) 0.04 H Absolute Neuts (auto) 6.6 Absolute Nucleated RBC 0.000 Nucleated RBC % (auto) 0.0 Anion Gap Estim Creat Clear Calc Estimated GFR POC Glucose 216 H Random Glucose Lactic Acid Calcium Total Bilirubin Direct Bilirubin AST ALT Alkaline Phosphatase Troponin I High Sens 153.8 H* D Total Protein Albumin Lipase COVID-19 ([facility]) COVID-19 Clin Com 08/18/22 08/18/22 08/18/22 02:27 03:05 05:54 MCV MCH MCHC RDW Plt Count MPV Immature Gran % (Auto) Neut % (Auto) Lymph % (Auto) Caroline % (Auto) Eos % (Auto) Baso % (Auto) Lymph # (Auto) Caroline # (Auto) Eos # (Auto) Baso # (Auto) Abs Immat Gran (auto) Absolute Neuts (auto) Absolute Nucleated RBC Nucleated RBC % (auto) Anion Gap 17 Estim Creat Clear Calc 17.9 Estimated GFR 16 POC Glucose Random Glucose 245 H Lactic Acid 0.9 Calcium 8.7 D Total Bilirubin 4.4 H Direct Bilirubin 2.7 H AST 37 H ALT 37 H Alkaline Phosphatase 655 H Troponin I High Sens Total Protein 5.9 L Albumin 3.3 L Lipase 34 COVID-19 ([facility]) Negative COVID-19 Clin Com See Note 08/18/22 06:17 MCV MCH MCHC RDW Plt Count MPV Immature Gran % (Auto) Neut % (Auto) Lymph % (Auto) Caroline % (Auto) Eos % (Auto) Baso % (Auto) Lymph # (Auto) Caroline # (Auto) Eos # (Auto) Baso # (Auto) Abs Immat Gran (auto) Absolute Neuts (auto) Absolute Nucleated RBC Nucleated RBC % (auto) Anion Gap Estim Creat Clear Calc Estimated GFR POC Glucose Random Glucose Lactic Acid Calcium Total Bilirubin Direct Bilirubin AST ALT Alkaline Phosphatase Troponin I High Sens 162.5 H* Total Protein Albumin Lipase COVID-19 ([facility]) COVID-19 Clin Com Imaging Radiologist's Impressions: Impressions Abdomen/Pelvis CT 08/18/22 05:23 IMPRESSION: 1. Mildly distended gallbladder with layering gallstones and mild nonspecific mural prominence. If there is clinical concern for cholecystitis, this would be better assessed with ultrasound. 2. Small amount of free fluid in the abdomen and pelvis. 3. Small pleural effusions. 4. Anasarca. Abdomen Ultrasound 08/18/22 08:00 IMPRESSION: Sonographic findings are suggestive of acute cholecystitis, though not conclusive. Consider correlation with a nuclear medicine hepatobiliary scan if there is clinical uncertainty.. Assessment and Plan (1) Acute cholecystitis: Status: Acute (2) Elevated transaminase level: Status: Acute Plan A 76 years old lady with PMH of diabetes, AFib, CHF, ESRD on HD among others who presents to the hospital complaining of right upper quadrant pain for 1 day prior to admission. Acute cholecystitis Not septic Noted on CT scan and ultrasound Start ceftriaxone and Flagyl IV fluid Advanced diet as tolerated Surgery input appreciated Transaminitis Elevated secondary to acute cholecystitis Treat underlying cause and monitor LFT Paroxysmal AFib EKG shows patient currently in sinus rhythm with first-degree heart block Continue metoprolol ?Hold Eliquis and start full-dose Lovenox instead End stage renal disease on dialysis Patient receives dialysis on TTS Nephrology consult Insulin-dependent diabetes mellitus with hyperglycemia Hold home meds SSI, Lantus Asthma/COPD overlap syndrome Not in acute exacerbation Continue home inhalers Monitor respiratory status DVT Prophylaxis: Lovenox The patient will likely need 2. Overnight hospital stay for treatment of acute cholecystitis pending possible surgical intervention and final blood cultures Time Spent With Patient Time: Total time managing care of this patient today ____ minutes. Quality Stroke Does the patient have a stroke diagnosis?: No VTE Prior VTE?: No VTE Risk Level:: Medical - moderate - high VTE Device Contraindication: Treatment Not Indicated VTE Drug Contraindication: N/A - Med Ordered
[2022-08-18] MEDS: cefTRIAXone sodium 1 GM in 0.9 % Sodium Chloride 50 ML IV (13:33)
[2022-08-18] MEDS: metroNIDAZOLE/NS 500 MG/100 ML PIGGYBACK 100 MG IV ×2 (13:34→18:07)
[2022-08-18] MEDS: 0.9 % Sodium Chloride 1,000 ML 100 ML IVCONT ×2 (13:35→21:43)
[2022-08-18 13:37] LABS: Glucose, Whole Blood 148 mg/dL (60-115)
--- NOTE | 2022-08-18 13:40 | PC.NURSE ---
first contact iwth patient. sleeping soundly at RN arrival. Needed light touch to wake. Pupils pinpoint at first opening of eyes. States (though she was sound asleep) that she has RLQ pain. undressed fully, able to follow commands. NSR onmonitor. brief removed. incontinent of urine only. skin integrity good. blanchable reddness but no breakdown. positioned left side lying. pt is axox3
--- NOTE | 2022-08-18 13:55 | PHA.MEDREC ---
Pharmacy Consult ? Medication Reconciliation Pharmacy has completed the medication reconciliation. Spoke to patient with development writer to confirm meds, however patient was a poor historian of medications. Called patient's son (Jason - [phone]) multiple times, but no answer at time of note. Left a message to call back and utilized previous primary care visit with Dr. Khan on (08/05/22) along with claim history to confirm meds. Patient unable to remmeber what days of the week calcitriol is taken and when last B12 injection was.
--- NOTE | 2022-08-18 14:26 | PC.NURSE ---
REPORT TO AMINA MELVIN
[2022-08-18] MEDS: Enoxaparin Sodium 80 MG/0.8 ML SYRINGE SUBCUT (14:29)
[2022-08-18] MEDS: Cyanocobalamin (Vitamin B-12) 1,000 MCG/ML VIAL 1000 MCG IM (16:06)
[2022-08-18] MEDS: hydrALAZINE HCl 25 MG TABLET PO ×2 (16:07→22:21)
[2022-08-18 17:33] LABS: Glucose, Whole Blood 267 mg/dL (60-115)
[2022-08-18] MEDS: Insulin Lispro 100 UNIT/ML 3 ML VIAL SUBCUT ×2 (18:06→22:22)
[2022-08-18] MEDS: Sevelamer Carbonate Tablet 800 MG TABLET PO (18:06)
[2022-08-18] MEDS: Acetaminophen 325 MG TABLET 650 MG PO (18:07)
[2022-08-18] MEDS: 0.9 % Sodium Chloride Flush 3 ML SYRINGE IVFLUSH (21:47)
[2022-08-18 21:49] LABS: Glucose, Whole Blood 198 mg/dL (60-115)
[2022-08-18] MEDS: Docusate Sodium 100 MG CAPSULE PO (22:21)
[2022-08-18] MEDS: Dronedarone HCl 400 MG TABLET PO (22:21)
[2022-08-18] MEDS: Gabapentin 100 MG CAPSULE PO (22:21)
[2022-08-18] MEDS: Insulin Glargine,Hum.rec.anlog 100 UNIT/ML 10 ML VIAL 8 UNIT SUBCUT (22:22)
[2022-08-18] MEDS: Montelukast Sodium 10 MG TABLET PO (22:22)
[2022-08-19] MEDS: metroNIDAZOLE/NS 500 MG/100 ML PIGGYBACK 100 MG IV ×3 (02:13→17:20)
[2022-08-19 02:42] VITALS: BP 158/67; PULSE 60; RESP 17; TEMP 36.2; O2SAT 99
--- NOTE | 2022-08-19 03:42 | PC.NURSE ---
Pt's HR at 20:00 was 59, BP 132/78. Pt had MARKIE dose of Metoprolol, but this RN notified MD Guan of the pt's HR. Pt's MARKIE dose of Metoprolol was not given due to decreased HR. Will continue to monitor pt's BP.
[2022-08-19] MEDS: Omeprazole 20 MG CAPSULE.DR PO (05:52)
[2022-08-19] MEDS: Levothyroxine Sodium 25 MCG TABLET PO (05:52)
[2022-08-19 06:39] LABS: Hemoglobin 8.9 g/dl (12.0-16.0); Mean Corpuscular HGB Conc 31.8 g/dl (31.0-35.0); Mean Corpuscular Hemoglobin 30.8 pg (27.0-33.0); Mean Corpuscular Volume 96.9 fL (80.0-98.0); Mean Platelet Volume 12.1 fL (9.4-12.3); Platelet Count 125 X10*3/uL (160-400); Red Blood Count 2.89 X10*6/uL (4.20-5.50); Red Cell Distribution Width 14.9 % (11.0-16.0); White Blood Count 6.2 X10*3/uL (4.8-10.8)
[2022-08-19 07:27] LABS: Anion Gap 10 (12-20); Blood Urea Nitrogen 23 mg/dL (9-16); Carbon Dioxide 29 mmol/L (22-29); Chloride 99 mmol/L (96-108); Creatinine Clr Calc Pharmacy 13.9; Estimated Glomerular Filt Rate 12; Potassium 2.9 mmol/L (3.3-5.1); Sodium 135 mmol/L (135-145)
[2022-08-19 07:37] LABS: Calcium 7.6 mg/dL (8.4-10.2); Glucose Random 52 mg/dL (60-115)
[2022-08-19 08:00] VITALS: BP 147/80; PULSE 55; RESP 18; TEMP 36.1; O2SAT 100
[2022-08-19 08:00] LABS: Glucose, Whole Blood 60 mg/dL (60-115)
[2022-08-19 08:16] LABS: Glucose, Whole Blood 66 mg/dL (60-115)
[2022-08-19] MEDS: Fluticasone/Vilanterol 100/25 BLST.W.DEV 1 PUFF INHALE (08:48)
[2022-08-19 08:50] VITALS: PULSE 55; RESP 18; O2SAT 100
[2022-08-19] MEDS: Loratadine 10 MG TABLET PO (08:53)
[2022-08-19] MEDS: Sevelamer Carbonate Tablet 800 MG TABLET PO ×3 (08:53→17:20)
[2022-08-19] MEDS: 0.9 % Sodium Chloride 1,000 ML 100 ML IVCONT ×2 (08:53→22:48)
[2022-08-19] MEDS: Gabapentin 100 MG CAPSULE PO ×2 (08:53→21:46)
[2022-08-19] MEDS: cefTRIAXone sodium 1 GM in 0.9 % Sodium Chloride 50 ML IV (08:53)
[2022-08-19] MEDS: Dronedarone HCl 400 MG TABLET PO ×2 (08:53→21:46)
[2022-08-19] MEDS: hydrALAZINE HCl 25 MG TABLET PO ×3 (08:54→21:46)
[2022-08-19] MEDS: Docusate Sodium 100 MG CAPSULE PO (08:54)
[2022-08-19] MEDS: Potassium Chloride Packet 20 MEQ PACKET 40 MEQ PO (08:54)
[2022-08-19 09:01] LABS: Alanine Aminotransferase 26 U/L (0-31); Albumin Level 2.8 g/dL (3.5-5.0); Alkaline Phosphatase 442 U/L (39-117); Aspartate Amino Transferase 26 U/L (5-31); Bilirubin Direct 1.3 mg/dL (0.0-0.5); Bilirubin Total 2.1 mg/dL (0.0-1.0)
--- NOTE | 2022-08-19 09:48 | MHC.CLN ---
NUTRITION PATIENT WITH DM, ESRD, ON HEMODIALYSIS. DIET=CLEAR LIQUIDS. WHEN ABLE TO ADVANCE DIET, RECOMMEND DIET PER DIALYSIS PARAMETERS: DIABETIC 1800 KCALS, 2 GRAM SODIUM, LOW POTASSIUM, LOW PHOSPHORUS.
--- NOTE | 2022-08-19 10:44 | P.PNIM_ITS ---
Subjective Subjective Date of Service: 08/19/22 Interval History: Seen and evaluated this morning Feels much better with less pain and nausea tolerating diet Review of Systems No fever,but has chills and weakness No chest pain, palpitation No shortness of breath or coughing less RUQ abdominal pain with nausea No urinary symptoms No any rash or wounds Physical Exam Vital Signs: Vital Signs: Last Vital Signs Temp 96.9 F 08/19/22 08:00 Pulse 55 08/19/22 08:50 Resp 18 08/19/22 08:50 BP 147/80 H 08/19/22 08:00 Pulse Ox 100 08/19/22 08:00 O2 Del Method 08/19/22 08:00 O2 Flow Rate 2 08/19/22 08:00 Oxygen Flow Rate 2 08/18/22 01:33 BMI result Body Mass Index 32.1 Const: Other: Constitutional : Awake, interactive, not in distress Neck : Normal inspection, Supple Cardiovascular : RRR, no JVP, no lower extremity edema Respiratory : fair bilateral air entry, no crackles, wheezes or rhonchi Gastrointestinal: soft, lax, Normal bowel sounds, minimal RUQ tenderness with negative kenney sign Skin : Warm, Dry Neurological : Alert & oriented x3, No focal deficit Objective Data Active Medications Acetaminophen (Acetaminophen 325 Mg Tablet) 650 mg PO Q6H PRN PRN Reason: Pain, Mild (Pain Scale 1-3) Last Admin: 08/18/22 18:07 Dose: 650 mg Documented By: ANITRA Albuterol Sulfate (Albuterol Sulfate 90 Mcg 8 Gm Inhaler) 2 puff INHALE Q6H PRN PRN Reason: shortness of breath or wheezing Calcitriol (Calcitriol 0.25 Mcg Capsule) 0.5 mcg PO [facility] Cyanocobalamin (Cyanocobalamin (Vitamin B-12) 1,000 Mcg/Ml Vial) 1,000 mcg IM Q28D [facility] Last Admin: 08/18/22 16:06 Dose: 1,000 mcg Documented By: ANITRA Docusate Sodium (Docusate Sodium 100 Mg Capsule) 100 mg PO BID [facility] Last Admin: 08/19/22 08:54 Dose: 100 mg Documented By: ISIDRA Dronedarone (Dronedarone Hcl 400 Mg Tablet) 400 mg PO BID [facility] Last Admin: 08/19/22 08:53 Dose: 400 mg Documented By: ISIDRA Enoxaparin Sodium (Enoxaparin Sodium 80 Mg/0.8 Ml Syringe) 80 mg SUBCUT Q24H [facility] Last Admin: 08/18/22 14:29 Dose: 80 mg Documented By: ALLAN Fluticasone/Vilanterol (Fluticasone/Vilanterol 100/25 Blst.W.Dev) 1 puff INHALE RDAILY [facility] Last Admin: 08/19/22 08:48 Dose: 1 puff Documented By: JAZMIN Gabapentin (Gabapentin 100 Mg Capsule) 100 mg PO BID [facility] Last Admin: 08/19/22 08:53 Dose: 100 mg Documented By: ISIDRA Hydralazine HCl (Hydralazine Hcl 25 Mg Tablet) 25 mg PO TID [facility]; Protocol Last Admin: 08/19/22 08:54 Dose: 25 mg Documented By: ISIDRA Sodium Chloride (Ns) 1,000 mls @ 100 mls/hr IVCONT .Q10H [facility] Last Admin: 08/19/22 08:53 Dose: 100 mls/hr Documented By: ISIDRA Ceftriaxone Sodium 1 gm/ (Sodium Chloride) 50 mls @ 100 mls/hr IV Q24H [facility] Last Admin: 08/19/22 08:53 Dose: 100 mls/hr Documented By: ISIDRA Metronidazole (Flagyl) 500 mg in 100 mls @ 100 mls/hr IV Q8H [facility] Last Infusion: 08/19/22 03:24 Dose: 0 mls/hr Documented By: SUNSHINE Insulin Glargine (Insulin Glargine,Hum.Rec.Anlog 100 Unit/Ml 10 Ml Vial) 4 unit SUBCUT BEDTIME [facility] Insulin Human Lispro (Insulin Lispro 100 Unit/Ml 3 Ml Vial) 0 unit SUBCUT QIDACHS [facility]; Protocol Last Admin: 08/19/22 07:45 Dose: Not Given Documented By: ISIDRA Non-Admin Reason: No Insulin Coverage Levothyroxine Sodium (Levothyroxine Sodium 25 Mcg Tablet) 25 mcg PO DAILY@0600 [facility] Last Admin: 08/19/22 05:52 Dose: 25 mcg Documented By: SUNSHINE Loratadine (Loratadine 10 Mg Tablet) 10 mg PO DAILY [facility] Last Admin: 08/19/22 08:53 Dose: 10 mg Documented By: ISIDRA Metoprolol Tartrate (Metoprolol Tartrate 25 Mg Tablet) 25 mg PO BID [facility]; Protocol Last Admin: 08/19/22 09:03 Dose: Not Given Documented By: ISIDRA Non-Admin Reason: Decreased Heart Rate Montelukast Sodium (Montelukast Sodium 10 Mg Tablet) 10 mg PO BEDTIME [facility] Last Admin: 08/18/22 22:22 Dose: 10 mg Documented By: SUNSHINE Morphine Sulfate (Morphine Sulfate 4 Mg/Ml Cartridge) 2 mg IVPUSH Q4H PRN; Protocol PRN Reason: Pain, Severe (Pain Scale 7-10) Omeprazole (Omeprazole 20 Mg Capsule.Dr) 20 mg PO DAILY@0630 [facility] Last Admin: 08/19/22 05:52 Dose: 20 mg Documented By: SUNSHINE Ondansetron HCl (Ondansetron Hcl 4 Mg/2 Ml Vial) 4 mg IVPUSH Q8H PRN PRN Reason: Nausea and Vomiting Pharmacy Consult (Consult Rx Perform Med Rec) 1 each MISCELLANE ONCE PRN PRN Reason: Consult order Sevelamer Carbonate (Sevelamer Carbonate Tablet 800 Mg Tablet) 800 mg PO TIDWM [facility] Last Admin: 08/19/22 08:53 Dose: 800 mg Documented By: ISIDRA Sodium Chloride (0.9 % Sodium Chloride Flush 3 Ml Syringe) 3 ml IVFLUSH QSHIFT [facility] Last Admin: 08/19/22 09:02 Dose: Not Given Documented By: ISIDRA Non-Admin Reason: IV Running Labs 08/19/22 05:35 08/19/22 05:35 Labs: Laboratory Results - last 24 hr 08/18/22 08/18/22 08/18/22 13:27 17:28 21:27 MCV MCH MCHC RDW Plt Count MPV Absolute Nucleated RBC Nucleated RBC % (auto) Anion Gap Estim Creat Clear Calc Estimated GFR POC Glucose 148 H 267 H 198 H Random Glucose Calcium Total Bilirubin Direct Bilirubin AST ALT Alkaline Phosphatase Total Protein Albumin 08/19/22 08/19/22 08/19/22 05:35 05:35 07:24 MCV 96.9 MCH 30.8 MCHC 31.8 RDW 14.9 Plt Count 125 L MPV 12.1 Absolute Nucleated RBC 0.000 Nucleated RBC % (auto) 0.0 Anion Gap 10 L Estim Creat Clear Calc 13.9 Estimated GFR 12 POC Glucose 60 Random Glucose 52 L* Calcium 7.6 L D Total Bilirubin 2.1 H Direct Bilirubin 1.3 H AST 26 ALT 26 Alkaline Phosphatase 442 H Total Protein 5.0 L Albumin 2.8 L 08/19/22 08:08 MCV MCH MCHC RDW Plt Count MPV Absolute Nucleated RBC Nucleated RBC % (auto) Anion Gap Estim Creat Clear Calc Estimated GFR POC Glucose 66 Random Glucose Calcium Total Bilirubin Direct Bilirubin AST ALT Alkaline Phosphatase Total Protein Albumin Microbiology Microbiology Results: Microbiology 08/18/22 05:54 Blood Culture - Preliminary Blood - Venous No growth after 24 hours. 08/18/22 05:54 Blood Culture - Preliminary Blood - Venous No growth after 24 hours. Assessment and Plan (1) Acute cholecystitis: Status: Acute (2) Elevated transaminase level: Status: Acute (3) ESRD needing dialysis: Status: Acute Plan A 76 years old lady with PMH of diabetes, AFib, CHF, ESRD on HD among others who presents to the hospital complaining of right upper quadrant pain for 1 day prior to admission. Acute cholecystitis improving, less tender Noted on CT scan and ultrasound continue ceftriaxone and Flagyl IV fluid Advanced diet as tolerated Surgery input appreciated, to do CCY on Friday (Eliquis on hold) Transaminitis Elevated secondary to acute cholecystitis, trending down Treat underlying cause and monitor LFT acute hypokalemia K of 2.9 to give replacement and follow Paroxysmal AFib EKG shows patient currently in sinus rhythm with first-degree heart block Continue metoprolol ?Hold Eliquis and start full-dose Lovenox instead End stage renal disease on dialysis Patient receives dialysis on TTS Nephrology consult Insulin-dependent diabetes mellitus with hyperglycemia Hold home meds SSI, Lantus Asthma/COPD overlap syndrome Not in acute exacerbation Continue home inhalers Monitor respiratory status DVT Prophylaxis: Lovenox The patient will likely need Overnight hospital stay for treatment of acute cholecystitis pending possible surgical intervention and final blood cultures Time Spent With Patient Time: Total time managing care of this patient today ____ minutes. Quality Stroke Does the patient have a stroke diagnosis?: No VTE Prior VTE?: No VTE Risk Level:: Medical - moderate - high VTE Device Contraindication: Treatment Not Indicated VTE Drug Contraindication: N/A - Med Ordered
--- NOTE | 2022-08-19 11:48 | PM.PNGS ---
Subjective Subjective Date of Service: 08/19/22 Interval history: Patient continues to report abdominal pain in the right upper quadrant improved from yesterday. Denies nausea or vomiting. She wishes to proceed with laparoscopic or possible open cholecystectomy. Physical Exam Vital Signs: Vital Signs: Last Vital Signs Temp 96.9 F 08/19/22 08:00 Pulse 55 08/19/22 08:50 Resp 18 08/19/22 08:50 BP 147/80 H 08/19/22 08:00 Pulse Ox 100 08/19/22 08:00 O2 Del Method 08/19/22 08:00 O2 Flow Rate 2 08/19/22 08:00 Oxygen Flow Rate 2 08/18/22 01:33 BMI result Body Mass Index 32.1 Const: General: no acute distress Nutritional Appearance: well nourished Orientation/consciousness: patient oriented x3 Eyes: Sclerae: sclerae normal GI: Inspection: Yes normal to inspection Palpation (GI): Soft to palpation, Tenderness to palpation present (GI) in the RUQ and Marshall's sign positive, no guarding, not rigid and hepatosplenomegaly present Skin: General skin exam: no rashes or lesions noted Neuro: General: patient oriented x3 Extrem: General: Yes normal to inspection Objective Data Active Medications Acetaminophen (Acetaminophen 325 Mg Tablet) 650 mg PO Q6H PRN PRN Reason: Pain, Mild (Pain Scale 1-3) Last Admin: 08/18/22 18:07 Dose: 650 mg Documented By: ANITRA Albuterol Sulfate (Albuterol Sulfate 90 Mcg 8 Gm Inhaler) 2 puff INHALE Q6H PRN PRN Reason: shortness of breath or wheezing Calcitriol (Calcitriol 0.25 Mcg Capsule) 0.5 mcg PO [facility] Cyanocobalamin (Cyanocobalamin (Vitamin B-12) 1,000 Mcg/Ml Vial) 1,000 mcg IM Q28D [facility] Last Admin: 08/18/22 16:06 Dose: 1,000 mcg Documented By: ANITRA Docusate Sodium (Docusate Sodium 100 Mg Capsule) 100 mg PO BID [facility] Last Admin: 08/19/22 08:54 Dose: 100 mg Documented By: ISIDRA Dronedarone (Dronedarone Hcl 400 Mg Tablet) 400 mg PO BID [facility] Last Admin: 08/19/22 08:53 Dose: 400 mg Documented By: ISIDRA Enoxaparin Sodium (Enoxaparin Sodium 80 Mg/0.8 Ml Syringe) 80 mg SUBCUT Q24H [facility] Last Admin: 08/18/22 14:29 Dose: 80 mg Documented By: ALLAN Fluticasone/Vilanterol (Fluticasone/Vilanterol 100/25 Blst.W.Dev) 1 puff INHALE RDAILY [facility] Last Admin: 08/19/22 08:48 Dose: 1 puff Documented By: JAZMIN Gabapentin (Gabapentin 100 Mg Capsule) 100 mg PO BID [facility] Last Admin: 08/19/22 08:53 Dose: 100 mg Documented By: ISIDRA Hydralazine HCl (Hydralazine Hcl 25 Mg Tablet) 25 mg PO TID [facility]; Protocol Last Admin: 08/19/22 08:54 Dose: 25 mg Documented By: ISIDRA Sodium Chloride (Ns) 1,000 mls @ 100 mls/hr IVCONT .Q10H [facility] Last Admin: 08/19/22 08:53 Dose: 100 mls/hr Documented By: ISIDRA Ceftriaxone Sodium 1 gm/ (Sodium Chloride) 50 mls @ 100 mls/hr IV Q24H [facility] Last Admin: 08/19/22 08:53 Dose: 100 mls/hr Documented By: ISIDRA Metronidazole (Flagyl) 500 mg in 100 mls @ 100 mls/hr IV Q8H [facility] Last Infusion: 08/19/22 03:24 Dose: 0 mls/hr Documented By: SUNSHINE Insulin Glargine (Insulin Glargine,Hum.Rec.Anlog 100 Unit/Ml 10 Ml Vial) 4 unit SUBCUT BEDTIME [facility] Insulin Human Lispro (Insulin Lispro 100 Unit/Ml 3 Ml Vial) 0 unit SUBCUT QIDACHS [facility]; Protocol Last Admin: 08/19/22 07:45 Dose: Not Given Documented By: ISIDRA Non-Admin Reason: No Insulin Coverage Levothyroxine Sodium (Levothyroxine Sodium 25 Mcg Tablet) 25 mcg PO DAILY@0600 [facility] Last Admin: 08/19/22 05:52 Dose: 25 mcg Documented By: SUNSHINE Loratadine (Loratadine 10 Mg Tablet) 10 mg PO DAILY [facility] Last Admin: 08/19/22 08:53 Dose: 10 mg Documented By: ISIDRA Metoprolol Tartrate (Metoprolol Tartrate 25 Mg Tablet) 25 mg PO BID [facility]; Protocol Last Admin: 08/19/22 09:03 Dose: Not Given Documented By: ISIDRA Non-Admin Reason: Decreased Heart Rate Montelukast Sodium (Montelukast Sodium 10 Mg Tablet) 10 mg PO BEDTIME [facility] Last Admin: 08/18/22 22:22 Dose: 10 mg Documented By: SUNSHINE Morphine Sulfate (Morphine Sulfate 4 Mg/Ml Cartridge) 2 mg IVPUSH Q4H PRN; Protocol PRN Reason: Pain, Severe (Pain Scale 7-10) Omeprazole (Omeprazole 20 Mg Capsule.Dr) 20 mg PO DAILY@0630 [facility] Last Admin: 08/19/22 05:52 Dose: 20 mg Documented By: SUNSHINE Ondansetron HCl (Ondansetron Hcl 4 Mg/2 Ml Vial) 4 mg IVPUSH Q8H PRN PRN Reason: Nausea and Vomiting Pharmacy Consult (Consult Rx Perform Med Rec) 1 each MISCELLANE ONCE PRN PRN Reason: Consult order Sevelamer Carbonate (Sevelamer Carbonate Tablet 800 Mg Tablet) 800 mg PO TIDWM [facility] Last Admin: 08/19/22 08:53 Dose: 800 mg Documented By: ISIDRA Sodium Chloride (0.9 % Sodium Chloride Flush 3 Ml Syringe) 3 ml IVFLUSH QSHIFT [facility] Last Admin: 08/19/22 09:02 Dose: Not Given Documented By: ISIDRA Non-Admin Reason: IV Running Labs 08/19/22 05:35 08/19/22 05:35 Labs: Laboratory Results - last 24 hr 08/18/22 08/18/22 08/18/22 13:27 17:28 21:27 MCV MCH MCHC RDW Plt Count MPV Absolute Nucleated RBC Nucleated RBC % (auto) Anion Gap Estim Creat Clear Calc Estimated GFR POC Glucose 148 H 267 H 198 H Random Glucose Calcium Total Bilirubin Direct Bilirubin AST ALT Alkaline Phosphatase Total Protein Albumin 08/19/22 08/19/22 08/19/22 05:35 05:35 07:24 MCV 96.9 MCH 30.8 MCHC 31.8 RDW 14.9 Plt Count 125 L MPV 12.1 Absolute Nucleated RBC 0.000 Nucleated RBC % (auto) 0.0 Anion Gap 10 L Estim Creat Clear Calc 13.9 Estimated GFR 12 POC Glucose 60 Random Glucose 52 L* Calcium 7.6 L D Total Bilirubin 2.1 H Direct Bilirubin 1.3 H AST 26 ALT 26 Alkaline Phosphatase 442 H Total Protein 5.0 L Albumin 2.8 L 08/19/22 08:08 MCV MCH MCHC RDW Plt Count MPV Absolute Nucleated RBC Nucleated RBC % (auto) Anion Gap Estim Creat Clear Calc Estimated GFR POC Glucose 66 Random Glucose Calcium Total Bilirubin Direct Bilirubin AST ALT Alkaline Phosphatase Total Protein Albumin Microbiology Microbiology Results: Microbiology 08/18/22 05:54 Blood Culture - Preliminary Blood - Venous No growth after 24 hours. 08/18/22 05:54 Blood Culture - Preliminary Blood - Venous No growth after 24 hours. Procedures Date of Service Date of Service: 08/19/22 Progress Note: A&P Assessment and plan (1) Acute cholecystitis: Status: Acute Plan 76-year-old female patient with multiple medical problems returning with recurrent abdominal pain in the right upper quadrant consistent with acute cholecystitis due to cholelithiasis. LFTs are improving but still elevated. She will be undergoing hemodialysis tomorrow and will plan on laparoscopic cholecystectomy on Friday. I reviewed the procedure, risks, and alternatives in detail with the assistance of a medical insurance coding specialist and she consents to the surgery. Time Spent With Patient Time: Total time managing care of this patient today ____ minutes. Quality Stroke Does the patient have a stroke diagnosis?: No VTE Prior VTE?: No VTE Risk Level:: Medical - moderate - high VTE Device Contraindication: Treatment Not Indicated VTE Drug Contraindication: N/A - Med Ordered
[2022-08-19 11:54] LABS: Glucose, Whole Blood 162 mg/dL (60-115)
--- NOTE | 2022-08-19 12:06 | P.CDIC_ITS ---
CDI Concurrent Query Documentation Clarification: PHYSICIAN'S DOCUMENTATION REQUEST Date of Query: 08/19/22 1209 Patient Name: Carolina Atkins Admit Date: 08/18/22 Dear Doctor, A review of the medical record indicates additional documentation may be needed. Please review below and update the documentation accordingly. Clinical Indicators: Is there a diagnosis that correlates with the findings below: Risk Factors/Clinical Indicators/Treatments Per provider notes & H&P: PMH: CHF Per last documented echo on 04/20/21: The visually estimated ejection fraction is between 60-65% Per RN shift assessments: Patient with BLE edema Please provide further specificity regarding the most likely type and acuity of CHF you are evaluating, treating, or monitoring. Examples include: Type: * Systolic * Diastolic * Combined Systolic/Diastolic * Other ? please specify * Unable to determine Acuity: * Acute * Chronic * Acute on chronic * Unable to determine Use of terms such as suspected, likely, concern for, or probable (associated with a specific diagnosis that is being evaluated, monitored, or treated as if it exists) are acceptable and can be coded in the inpatient setting, when documented at the time of discharge. Thank you, Jessica Melo, MS, RN, CCRN Extension: [phone] Please use your independent medical judgment in providing your response. THIS QUERY IS PART OF THE PERMANENT MEDICAL RECORD Provider Response: Other Other Diagnosis: Chronic diastolic CHF w no acute exacerbation
[2022-08-19] MEDS: Insulin Lispro 100 UNIT/ML 3 ML VIAL SUBCUT ×3 (12:13→21:48)
[2022-08-19] MEDS: Enoxaparin Sodium 80 MG/0.8 ML SYRINGE SUBCUT (15:29)
--- NOTE | 2022-08-19 15:55 | MHC.CM.PN ---
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
[2022-08-19 16:00] VITALS: BP 158/80; PULSE 62; RESP 17; TEMP 36.4; O2SAT 100
[2022-08-19 16:48] LABS: Glucose, Whole Blood 202 mg/dL (60-115)
[2022-08-19 19:35] VITALS: BP 140/75; PULSE 63; RESP 16; TEMP 36.6; O2SAT 100
[2022-08-19 20:52] LABS: Glucose, Whole Blood 170 mg/dL (60-115)
[2022-08-19] MEDS: Montelukast Sodium 10 MG TABLET PO (21:46)
[2022-08-19] MEDS: Metoprolol Tartrate 25 MG TABLET PO (21:46)
[2022-08-19] MEDS: Insulin Glargine,Hum.rec.anlog 100 UNIT/ML 10 ML VIAL SUBCUT (21:49)
--- NOTE | 2022-08-20 00:09 | CONS_ITS ---
DATE OF SERVICE: 08/19/2022 REASON FOR CONSULTATION: I was asked the patient to assist in evaluation and management of patient's dialysis needs. HISTORY OF PRESENT ILLNESS: 76-year-old ESRD patient on dialysis Tuesdays, , and Saturdays, who presented to the hospital complaining of right upper quadrant pain apparently it was going on for the past day or so. The patient states the food seems to precipitate pain. She had some pork and this became precipitated the pain episode. She had imaging studies in the emergency room, which showed that she had distended gallbladder and gallstones. She has been seen by the surgical team and there are tentative plans to do surgery on Friday after she has been offered Eliquis. PAST MEDICAL HISTORY: Notable for the ESRD, hypertension, hyperlipidemia, diabetes, peripheral vascular disease. MEDICATIONS: Her medications on admission are noted in the admitting notes. Current medications noted on the AUG. ALLERGIES: SHE HAS NO KNOWN DRUG ALLERGIES. PHYSICAL EXAMINATION: VITAL SIGNS: Blood pressure 160/70 with heart rate in the 60s. She is afebrile. HEENT: Head is atraumatic and normocephalic. NECK: Supple. Mucous membranes moist. LUNGS: Breath sounds bilaterally. CARDIAC: Regular rate and rhythm. ABDOMEN: Soft. EXTREMITIES: Show trace edema. LABORATORY DATA: Hemoglobin 10.4, hematocrit 32, white blood cell count 8.4. Sodium 130, potassium 3.6, chloride 96, bicarb 29. IMPRESSION: END-STAGE RENAL DISEASE. PATIENT ADMITTED WITH ACUTE GALLBLADDER ATTACK. 1. End-stage renal disease with dialysis tomorrow, on Tuesdays, and Saturdays schedule. 2. Acute cholecystitis. She has been started on antibiotics, seen by Surgery and scheduled for surgery on Friday. 3. Anemia. We will continue to monitor hemoglobin and start EPO as needed. 4. 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 We will continue to monitor her phosphorus, calcium, and treat accordingly. RECOMMENDATIONS: We will follow the patient closely and provide dialysis support. MD CONRADO Nuñez/RACHELL / [phone]
[2022-08-20] MEDS: Acetaminophen 325 MG TABLET 650 MG PO (01:09)
[2022-08-20] MEDS: metroNIDAZOLE/NS 500 MG/100 ML PIGGYBACK 100 MG IV ×3 (02:14→20:09)
[2022-08-20 03:36] VITALS: BP 168/75; PULSE 56; RESP 17; TEMP 36.5; O2SAT 100
[2022-08-20] MEDS: Omeprazole 20 MG CAPSULE.DR PO (05:45)
[2022-08-20] MEDS: Levothyroxine Sodium 25 MCG TABLET PO (05:45)
[2022-08-20 06:43] LABS: Anion Gap 15 (12-20); Blood Urea Nitrogen 23 mg/dL (9-16); Calcium 7.4 mg/dL (8.4-10.2); Carbon Dioxide 21 mmol/L (22-29); Chloride 97 mmol/L (96-108); Estimated Glomerular Filt Rate 11; Potassium 3.2 mmol/L (3.3-5.1); Sodium 130 mmol/L (135-145)
[2022-08-20 06:47] LABS: Glucose Random 57 mg/dL (60-115)
[2022-08-20 07:42] LABS: Glucose, Whole Blood 104 mg/dL (60-115)
[2022-08-20 07:43] VITALS: BP 173/76; PULSE 59; RESP 18; TEMP 36.5; O2SAT 99
[2022-08-20] MEDS: Fluticasone/Vilanterol 100/25 BLST.W.DEV 1 PUFF INHALE (08:01)
[2022-08-20 08:02] VITALS: PULSE 60; RESP 15; O2SAT 100
[2022-08-20] MEDS: Dronedarone HCl 400 MG TABLET PO ×2 (08:23→20:12)
[2022-08-20] MEDS: hydrALAZINE HCl 25 MG TABLET PO ×2 (08:23→20:12)
[2022-08-20] MEDS: Potassium Chloride Packet 20 MEQ PACKET 40 MEQ PO ×2 (08:23→10:19)
[2022-08-20] MEDS: Sevelamer Carbonate Tablet 800 MG TABLET PO ×2 (08:23→13:08)
[2022-08-20] MEDS: Loratadine 10 MG TABLET PO (08:23)
[2022-08-20] MEDS: Gabapentin 100 MG CAPSULE PO ×2 (08:23→20:13)
[2022-08-20] MEDS: Metoprolol Tartrate 25 MG TABLET PO ×2 (08:23→20:13)
[2022-08-20] MEDS: 0.9 % Sodium Chloride 1,000 ML 100 ML IVCONT (10:19)
[2022-08-20] MEDS: cefTRIAXone sodium 1 GM in 0.9 % Sodium Chloride 50 ML IV (10:19)
[2022-08-20 11:20] LABS: Glucose, Whole Blood 110 mg/dL (60-115)
--- NOTE | 2022-08-20 11:40 | HO.PM.IMPN ---
Subjective Subjective Date of Service: 08/20/22 Interval History: Seen and evaluated this morning Feels much better with less pain and nausea tolerating diet plan for surgery tomorrow morning Review of Systems No fever,but has chills and weakness No chest pain, palpitation No shortness of breath or coughing less RUQ abdominal pain with nausea No urinary symptoms No any rash or wounds Physical Exam Vital Signs: Vital Signs: Last Vital Signs Temp 97.7 F 08/20/22 07:43 Pulse 60 08/20/22 08:02 Resp 15 08/20/22 08:02 BP 173/76 H 08/20/22 07:43 Pulse Ox 99 08/20/22 07:43 O2 Del Method 08/20/22 07:43 O2 Flow Rate 2.0 08/20/22 07:43 Oxygen Flow Rate 2 08/18/22 01:33 BMI result Body Mass Index 32.1 Const: Other: Constitutional : Awake, interactive, not in distress Neck : Normal inspection, Supple Cardiovascular : RRR, no JVP, no lower extremity edema Respiratory : fair bilateral air entry, no crackles, wheezes or rhonchi Gastrointestinal: soft, lax, Normal bowel sounds, minimal RUQ tenderness with negative kenney sign Skin : Warm, Dry Neurological : Alert & oriented x3, No focal deficit Objective Data Active Medications Acetaminophen (Acetaminophen 325 Mg Tablet) 650 mg PO Q6H PRN PRN Reason: Pain, Mild (Pain Scale 1-3) Last Admin: 08/20/22 01:09 Dose: 650 mg Documented By: SUNSHINE Albuterol Sulfate (Albuterol Sulfate 90 Mcg 8 Gm Inhaler) 2 puff INHALE Q6H PRN PRN Reason: shortness of breath or wheezing Calcitriol (Calcitriol 0.25 Mcg Capsule) 0.5 mcg PO [facility] Cyanocobalamin (Cyanocobalamin (Vitamin B-12) 1,000 Mcg/Ml Vial) 1,000 mcg IM Q28D [facility] Last Admin: 08/18/22 16:06 Dose: 1,000 mcg Documented By: ANITRA Docusate Sodium (Docusate Sodium 100 Mg Capsule) 100 mg PO BID [facility] Last Admin: 08/20/22 08:26 Dose: Not Given Documented By: ISIDRA Non-Admin Reason: loose stools Dronedarone (Dronedarone Hcl 400 Mg Tablet) 400 mg PO BID [facility] Last Admin: 08/20/22 08:23 Dose: 400 mg Documented By: ISIDRA Enoxaparin Sodium (Enoxaparin Sodium 80 Mg/0.8 Ml Syringe) 80 mg SUBCUT Q24H [facility] Last Admin: 08/19/22 15:29 Dose: 80 mg Documented By: ISIDRA Fluticasone/Vilanterol (Fluticasone/Vilanterol 100/25 Blst.W.Dev) 1 puff INHALE RDAILY [facility] Last Admin: 08/20/22 08:01 Dose: 1 puff Documented By: JIMI Gabapentin (Gabapentin 100 Mg Capsule) 100 mg PO BID [facility] Last Admin: 08/20/22 08:23 Dose: 100 mg Documented By: ISIDRA Hydralazine HCl (Hydralazine Hcl 25 Mg Tablet) 25 mg PO TID [facility]; Protocol Last Admin: 08/20/22 08:23 Dose: 25 mg Documented By: ISIDRA Ceftriaxone Sodium 1 gm/ (Sodium Chloride) 50 mls @ 100 mls/hr IV Q24H [facility] Last Infusion: 08/20/22 10:50 Dose: 0 mls/hr Documented By: ISIDRA Metronidazole (Flagyl) 500 mg in 100 mls @ 100 mls/hr IV Q8H [facility] Last Admin: 08/20/22 10:49 Dose: 100 mls/hr Documented By: ISIDRA Insulin Human Lispro (Insulin Lispro 100 Unit/Ml 3 Ml Vial) 0 unit SUBCUT QIDACHS [facility]; Protocol Last Admin: 08/20/22 11:22 Dose: Not Given Documented By: ISIDRA Non-Admin Reason: No Insulin Coverage Levothyroxine Sodium (Levothyroxine Sodium 25 Mcg Tablet) 25 mcg PO DAILY@0600 [facility] Last Admin: 08/20/22 05:45 Dose: 25 mcg Documented By: SUNSHINE Loratadine (Loratadine 10 Mg Tablet) 10 mg PO DAILY [facility] Last Admin: 08/20/22 08:23 Dose: 10 mg Documented By: ISIDRA Metoprolol Tartrate (Metoprolol Tartrate 25 Mg Tablet) 25 mg PO BID [facility]; Protocol Last Admin: 08/20/22 08:23 Dose: 25 mg Documented By: ISIDRA Montelukast Sodium (Montelukast Sodium 10 Mg Tablet) 10 mg PO BEDTIME [facility] Last Admin: 08/19/22 21:46 Dose: 10 mg Documented By: SUNSHINE Morphine Sulfate (Morphine Sulfate 4 Mg/Ml Cartridge) 2 mg IVPUSH Q4H PRN; Protocol PRN Reason: Pain, Severe (Pain Scale 7-10) Omeprazole (Omeprazole 20 Mg Capsule.Dr) 20 mg PO DAILY@0630 [facility] Last Admin: 08/20/22 05:45 Dose: 20 mg Documented By: SUNSHINE Ondansetron HCl (Ondansetron Hcl 4 Mg/2 Ml Vial) 4 mg IVPUSH Q8H PRN PRN Reason: Nausea and Vomiting Pharmacy Consult (Consult Rx Perform Med Rec) 1 each MISCELLANE ONCE PRN PRN Reason: Consult order Sevelamer Carbonate (Sevelamer Carbonate Tablet 800 Mg Tablet) 800 mg PO TIDWM [facility] Last Admin: 08/20/22 08:23 Dose: 800 mg Documented By: ISIDRA Sodium Chloride (0.9 % Sodium Chloride Flush 3 Ml Syringe) 3 ml IVFLUSH QSHIFT [facility] Last Admin: 08/20/22 07:24 Dose: Not Given Documented By: ISIDRA Non-Admin Reason: IV Running Labs 08/19/22 05:35 08/20/22 06:00 Labs: Laboratory Results - last 24 hr 08/19/22 08/19/22 08/19/22 11:50 16:30 20:44 Anion Gap Estim Creat Clear Calc Estimated GFR POC Glucose 162 H 202 H 170 H Random Glucose Calcium 08/20/22 08/20/22 08/20/22 06:00 07:22 11:15 Anion Gap 15 Estim Creat Clear Calc 13.0 Estimated GFR 11 POC Glucose 104 110 Random Glucose 57 L* Calcium 7.4 L Microbiology Microbiology Results: Microbiology 08/18/22 05:54 Blood Culture - Preliminary Blood - Venous No growth after 48 hours. 08/18/22 05:54 Blood Culture - Preliminary Blood - Venous No growth after 48 hours. Assessment and Plan (1) ESRD needing dialysis: Status: Acute (2) Acute cholecystitis: Status: Acute (3) Elevated transaminase level: Status: Acute (4) Hypokalemia: Status: Acute Plan A 76 years old lady with PMH of diabetes, AFib, CHF, ESRD on HD among others who presents to the hospital complaining of right upper quadrant pain for 1 day prior to admission. Acute cholecystitis improving, less tender Noted on CT scan and ultrasound continue ceftriaxone and Flagyl IV fluid Advanced diet as tolerated Surgery input appreciated, to do CCY tomorrow (Eliquis on hold) Transaminitis Elevated secondary to acute cholecystitis, trending down Treat underlying cause and monitor LFT acute hypokalemia K of 3.2 should get corrected with HD follow bmp Acute hyponatremia Na of 130, to do HD Paroxysmal AFib EKG shows patient currently in sinus rhythm with first-degree heart block Continue metoprolol ?Hold Eliquis and start full-dose Lovenox instead End stage renal disease on dialysis Patient receives dialysis on TTS Nephrology consult Insulin-dependent diabetes mellitus with hyperglycemia Hold home meds SSI, Lantus Asthma/COPD overlap syndrome Not in acute exacerbation Continue home inhalers Monitor respiratory status DVT Prophylaxis: Lovenox , hold overnight for surgery The patient will likely need Overnight hospital stay for treatment of acute cholecystitis on Iv Abx pending surgical intervention and final blood cultures Time Spent With Patient Time: Total time managing care of this patient today ____ minutes. Quality Stroke Does the patient have a stroke diagnosis?: No VTE Prior VTE?: No VTE Risk Level:: Medical - moderate - high VTE Device Contraindication: Treatment Not Indicated VTE Drug Contraindication: N/A - Med Ordered
[2022-08-20] MEDS: Morphine Sulfate 4 MG/ML CARTRIDGE 2 MG IVPUSH (12:11)
--- NOTE | 2022-08-20 15:06 | PM.PNNEP ---
Subjective Subjective Date of Service: 08/20/22 Interval history: Seen and examined, events noted Physical Exam Vital Signs: Vital Signs: Last Vital Signs Temp 97.7 F 08/20/22 07:43 Pulse 60 08/20/22 08:02 Resp 15 08/20/22 08:02 BP 173/76 H 08/20/22 07:43 Pulse Ox 99 08/20/22 07:43 O2 Del Method 08/20/22 07:43 O2 Flow Rate 2.0 08/20/22 07:43 Oxygen Flow Rate 2 08/18/22 01:33 BMI result Body Mass Index 32.1 Objective Data Labs 08/19/22 05:35 08/20/22 06:00 Labs: Laboratory Results - last 24 hr 08/19/22 08/19/22 08/20/22 16:30 20:44 06:00 Sodium 130 L Potassium 3.2 L Chloride 97 Carbon Dioxide 21 L Anion Gap 15 BUN 23 H Creatinine 3.93 H Estim Creat Clear Calc 13.0 Estimated GFR 11 POC Glucose 202 H 170 H Random Glucose 57 L* Calcium 7.4 L 08/20/22 08/20/22 07:22 11:15 Sodium Potassium Chloride Carbon Dioxide Anion Gap BUN Creatinine Estim Creat Clear Calc Estimated GFR POC Glucose 104 110 Random Glucose Calcium Microbiology Microbiology Results: Microbiology 08/18/22 05:54 Blood - Venous Blood Culture - Preliminary No growth after 48 hours. 08/18/22 05:54 Blood - Venous Blood Culture - Preliminary No growth after 48 hours. Procedures Date of Service Date of Service: 08/20/22 Assessment & Plan Assessment and plan (1) ESRD needing dialysis: Status: Acute Plan -ESRD TTS HD - Symptomatic Gstones: schedule surg 08/21 - Anemia: track Hb and Tx EPO as noted REC: cont HD 3x/wk on TTS schedule Will folow with team Time Spent With Patient Time: Total time managing care of this patient today ____ minutes. Progress Note: Quality Stroke Does the patient have a stroke diagnosis?: No
[2022-08-20 19:56] VITALS: BP 138/74; PULSE 66; RESP 18; TEMP 36.2; O2SAT 98
[2022-08-20 20:10] LABS: Glucose, Whole Blood 77 mg/dL (60-115)
[2022-08-20] MEDS: Montelukast Sodium 10 MG TABLET PO (20:12)
[2022-08-20] MEDS: calcitrioL 0.25 MCG CAPSULE 0.5 MCG PO (20:12)
[2022-08-20] MEDS: Docusate Sodium 100 MG CAPSULE PO (20:13)
[2022-08-20] MEDS: 0.9 % Sodium Chloride Flush 3 ML SYRINGE IVFLUSH (22:25)
[2022-08-21] VITALS (15 sets, daily range): BP systolic 108–160; BP diastolic 34–95; PULSE 52–68; RESP 15–18; TEMP 35.7–37; O2SAT 94–100; BMI 32.1
[2022-08-21] MEDS: metroNIDAZOLE/NS 500 MG/100 ML PIGGYBACK 100 MG IV ×2 (03:53→17:53)
[2022-08-21] MEDS: Levothyroxine Sodium 25 MCG TABLET PO (05:22)
[2022-08-21] MEDS: Omeprazole 20 MG CAPSULE.DR PO (05:22)
[2022-08-21 07:30] LABS: Glucose, Whole Blood 87 mg/dL (60-115)
[2022-08-21] MEDS: Fluticasone/Vilanterol 100/25 BLST.W.DEV 1 PUFF INHALE (07:38)
[2022-08-21] MEDS: hydrALAZINE HCl 25 MG TABLET PO ×3 (07:45→22:25)
[2022-08-21] MEDS: Dronedarone HCl 400 MG TABLET PO ×2 (07:45→22:26)
[2022-08-21] MEDS: Metoprolol Tartrate 25 MG TABLET PO (07:46)
[2022-08-21] MEDS: Gabapentin 100 MG CAPSULE PO ×2 (07:47→22:26)
--- NOTE | 2022-08-21 08:33 | P.CONAN_ITS ---
[facility] Active Problems Active Problems: All Active Problems (Updated 08/20/22 @ 11:43 by Marvel Phelan MD) Hypokalemia (Acute) ESRD needing dialysis (Acute) Acute cholecystitis (Acute) Elevated transaminase level (Acute) AVM (arteriovenous malformation) of colon (Acute) Gastric ulcer (Acute) Diarrhea (Acute) Asthma-COPD overlap syndrome (Acute) Atrial fibrillation with rapid ventricular response (Acute) Menopause (Acute) Well woman exam (Acute) Weakness (Acute) Dyspnea (Acute) Pre-op chest exam (Acute) Cellulitis (Acute) SHIELA (generalized anxiety disorder) (Acute) Allergic rhinitis (Acute) Diabetes (Acute) Anemia (Acute) Thrombosis of right internal jugular vein (Acute) Basilic vein thrombosis (Acute) Pleural effusion (Acute) Atrial fibrillation with RVR (Acute) Acute exacerbation of CHF (congestive heart failure) (Acute) Hypoxia (Acute) Polyneuropathy (Acute) Pre-ulcerative calluses (Acute) Type 2 diabetes mellitus with polyneuropathy (Acute) Hammertoe (Acute) Cough (Acute) Encounter for screening colonoscopy (Acute) CHF (congestive heart failure) (Acute) Kidney transplant candidate (Acute) Hypothyroidism (Acute) Obesity (BMI 30-39.9) (Acute) Osteoarthritis (Acute) Pure hypercholesterolemia (Acute) Past Medical History Medical History Acute pericardial effusion Anemia Anemia 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 Benign essential hypertension CAD (coronary artery disease) Chronic anticoagulation Chronic kidney disease, stage 4 (severe) Dyspnea ESRD (end stage renal disease) ESRD (end stage renal disease) ESRD on dialysis Fluid overload Gastric ulcer GERD (gastroesophageal reflux disease) Hemodialysis patient HLD (hyperlipidemia) Hypertension Hypothyroidism Iron deficiency Nephrotic range proteinuria Obesity (BMI 30-39.9) Osteoarthritis Osteopenia PAF (paroxysmal atrial fibrillation) PAF (paroxysmal atrial fibrillation) Paroxysmal atrial fibrillation Pernicious anemia Pure hypercholesterolemia Toe amputee Type 2 diabetes mellitus Functional capacity: uses cane/walker Patient : No Family History Family history of problems with anesthesia: No Surgical History Surgical History Hx of appendectomy S/P arteriovenous (AV) fistula creation History of Problems with Anesthesia: No Social History Social History Household Members: None Household Members Other:: [facility] Housing: House Do you presently have visiting nurse or other home services: Yes Alcohol intake: former Patient Tobacco Use Status: Never used Tobacco e-Cigarette/Vaping Use: Never Used Second Hand Smoke Exposure: No Advance Directives Date on File: 04/10/22 service: No Current occupational status: retired and disabled Cognitive needs: Yes Hearing needs: No Vision needs: No Meds Allergies Allergy/AdvReac Type Severity Reaction Status Date / Time No Known Allergies Allergy Verified 08/05/22 10:24 Active Medications: Current Medications Acetaminophen (Acetaminophen 325 Mg Tablet) 650 mg PO Q6H PRN PRN Reason: Pain, Mild (Pain Scale 1-3) Last Admin: 08/20/22 01:09 Dose: 650 mg Albuterol Sulfate (Albuterol Sulfate 90 Mcg 8 Gm Inhaler) 2 puff INHALE Q6H PRN PRN Reason: shortness of breath or wheezing Calcitriol (Calcitriol 0.25 Mcg Capsule) 0.5 mcg PO We@1999 [facility] Last Admin: 08/20/22 20:12 Dose: 0.5 mcg Cyanocobalamin (Cyanocobalamin (Vitamin B-12) 1,000 Mcg/Ml Vial) 1,000 mcg IM Q28D [facility] Last Admin: 08/18/22 16:06 Dose: 1,000 mcg Docusate Sodium (Docusate Sodium 100 Mg Capsule) 100 mg PO BID [facility] Last Admin: 08/20/22 20:13 Dose: 100 mg Dronedarone (Dronedarone Hcl 400 Mg Tablet) 400 mg PO BID [facility] Last Admin: 08/21/22 07:45 Dose: 400 mg Enoxaparin Sodium (Enoxaparin Sodium 80 Mg/0.8 Ml Syringe) 80 mg SUBCUT Q24H [facility] Last Admin: 08/20/22 15:06 Dose: Not Given Fluticasone/Vilanterol (Fluticasone/Vilanterol 100/25 Blst.W.Dev) 1 puff INHALE RDAILY [facility] Last Admin: 08/21/22 07:38 Dose: 1 puff Gabapentin (Gabapentin 100 Mg Capsule) 100 mg PO BID [facility] Last Admin: 08/21/22 07:47 Dose: 100 mg Hydralazine HCl (Hydralazine Hcl 25 Mg Tablet) 25 mg PO TID [facility]; Protocol Last Admin: 08/21/22 07:45 Dose: 25 mg Ceftriaxone Sodium 1 gm/ (Sodium Chloride) 50 mls @ 100 mls/hr IV Q24H [facility] Last Infusion: 08/20/22 10:50 Dose: Infused Metronidazole (Flagyl) 500 mg in 100 mls @ 100 mls/hr IV Q8H [facility] Last Infusion: 08/21/22 04:53 Dose: Infused Insulin Human Lispro (Insulin Lispro 100 Unit/Ml 3 Ml Vial) 0 unit SUBCUT QIDACHS [facility]; Protocol Last Admin: 08/21/22 07:29 Dose: Not Given Levothyroxine Sodium (Levothyroxine Sodium 25 Mcg Tablet) 25 mcg PO DAILY@0600 [facility] Last Admin: 08/21/22 05:22 Dose: 25 mcg Loratadine (Loratadine 10 Mg Tablet) 10 mg PO DAILY [facility] Last Admin: 08/20/22 08:23 Dose: 10 mg Metoprolol Tartrate (Metoprolol Tartrate 25 Mg Tablet) 25 mg PO BID [facility]; Protocol Last Admin: 08/21/22 07:46 Dose: 25 mg Montelukast Sodium (Montelukast Sodium 10 Mg Tablet) 10 mg PO BEDTIME [facility] Last Admin: 08/20/22 20:12 Dose: 10 mg Morphine Sulfate (Morphine Sulfate 4 Mg/Ml Cartridge) 2 mg IVPUSH Q4H PRN; Protocol PRN Reason: Pain, Severe (Pain Scale 7-10) Last Admin: 08/20/22 12:11 Dose: 2 mg Omeprazole (Omeprazole 20 Mg Capsule.Dr) 20 mg PO DAILY@0630 [facility] Last Admin: 08/21/22 05:22 Dose: 20 mg Ondansetron HCl (Ondansetron Hcl 4 Mg/2 Ml Vial) 4 mg IVPUSH Q8H PRN PRN Reason: Nausea and Vomiting Pharmacy Consult (Consult Rx Perform Med Rec) 1 each MISCELLANE ONCE PRN PRN Reason: Consult order Sevelamer Carbonate (Sevelamer Carbonate Tablet 800 Mg Tablet) 800 mg PO TIDWM [facility] Last Admin: 08/21/22 07:49 Dose: Not Given Sodium Chloride (0.9 % Sodium Chloride Flush 3 Ml Syringe) 3 ml IVFLUSH QSHIFT [facility] Last Admin: 08/20/22 22:25 Dose: 3 ml Home Medications Medication Instructions Recorded Confirmed Last Taken Type insulin lispro 100 unit/mL 2 - 10 unit subcut QIDACHS 04/15/22 08/18/22 08/17/22 History subcutaneous pen acetaminophen 325 mg tablet 325 mg PO Q6H PRN Mild Pain (Scale 07/19/22 08/18/22 Unknown History Score 1-4) calcitriol 0.25 mcg capsule 0.5 mcg PO 3XW 07/19/22 08/18/22 Unknown History lidocaine 5 % topical patch 1 patch topical DAILY 07/19/22 08/18/22 Unknown History sevelamer carbonate 800 mg tablet 800 mg PO TIDWM 07/19/22 08/18/22 08/17/22 History aspirin 81 mg tablet,delayed 81 mg PO DAILY 08/18/22 08/18/22 08/17/22 History release docusate sodium 100 mg capsule 1 cap PO BID 08/18/22 08/18/22 08/17/22 History Exam Exam Date and Time: August 21, 2022 0833 Height,Weight and Vital Signs: Height 5 ft 4 in Weight 84.8 kg Last Vital Signs Temp 97.9 F 08/21/22 08:00 Pulse 63 08/21/22 08:00 Resp 17 08/21/22 08:00 BP 138/76 08/21/22 08:00 Pulse Ox 99 08/21/22 08:00 O2 Del Method 08/21/22 08:00 O2 Flow Rate 2 08/21/22 04:00 Oxygen Flow Rate 2 08/18/22 01:33 Pertinent Lab Results Pertinent Lab Results: Laboratory Tests 08/18/22 08/18/22 08/18/22 01:54 02:26 02:27 WBC 8.4 RBC 3.35 L Hgb 10.4 L Hct 32.0 L MCV 95.5 MCH 31.0 MCHC 32.5 RDW 14.7 Plt Count 135 L MPV 11.6 Immature Gran % (Auto) 0.5 H Neut % (Auto) 78.7 H Lymph % (Auto) 5.8 L Harney % (Auto) 9.5 Eos % (Auto) 4.9 H Baso % (Auto) 0.6 Lymph # (Auto) 0.5 L Harney # (Auto) 0.8 Eos # (Auto) 0.4 Baso # (Auto) 0.1 Abs Immat Gran (auto) 0.04 H Absolute Neuts (auto) 6.6 Absolute Nucleated RBC 0.000 Nucleated RBC % (auto) 0.0 Sodium Potassium Chloride Carbon Dioxide Anion Gap BUN Creatinine Estim Creat Clear Calc Estimated GFR POC Glucose 216 H Random Glucose Lactic Acid Calcium Total Bilirubin Direct Bilirubin AST ALT Alkaline Phosphatase Troponin I High Sens 153.8 H* D Total Protein Albumin Lipase COVID-19 (GLENNA) COVID-19 [employer] 08/18/22 08/18/22 08/18/22 02:27 03:05 05:54 WBC RBC Hgb Hct MCV MCH MCHC RDW Plt Count MPV Immature Gran % (Auto) Neut % (Auto) Lymph % (Auto) Harney % (Auto) Eos % (Auto) Baso % (Auto) Lymph # (Auto) Harney # (Auto) Eos # (Auto) Baso # (Auto) Abs Immat Gran (auto) Absolute Neuts (auto) Absolute Nucleated RBC Nucleated RBC % (auto) Sodium 138 Potassium 3.6 D Chloride 96 Carbon Dioxide 29 Anion Gap 17 BUN 17 H Creatinine 2.89 H Estim Creat Clear Calc 17.9 Estimated GFR 16 POC Glucose Random Glucose 245 H Lactic Acid 0.9 Calcium 8.7 D Total Bilirubin 4.4 H Direct Bilirubin 2.7 H AST 37 H ALT 37 H Alkaline Phosphatase 655 H Troponin I High Sens Total Protein 5.9 L Albumin 3.3 L Lipase 34 COVID-19 (GLENNA) Negative COVID-my[employer] See Note 08/18/22 08/18/22 08/18/22 06:17 13:27 17:28 WBC RBC Hgb Hct MCV MCH MCHC RDW Plt Count MPV Immature Gran % (Auto) Neut % (Auto) Lymph % (Auto) Harney % (Auto) Eos % (Auto) Baso % (Auto) Lymph # (Auto) Harney # (Auto) Eos # (Auto) Baso # (Auto) Abs Immat Gran (auto) Absolute Neuts (auto) Absolute Nucleated RBC Nucleated RBC % (auto) Sodium Potassium Chloride Carbon Dioxide Anion Gap BUN Creatinine Estim Creat Clear Calc Estimated GFR POC Glucose 148 H 267 H Random Glucose Lactic Acid Calcium Total Bilirubin Direct Bilirubin AST ALT Alkaline Phosphatase Troponin I High Sens 162.5 H* Total Protein Albumin Lipase COVID-19 (GLENNA) COVID-19 [employer] 08/18/22 08/19/22 08/19/22 21:27 05:35 05:35 WBC 6.2 RBC 2.89 L Hgb 8.9 L Hct 28.0 L MCV 96.9 MCH 30.8 MCHC 31.8 RDW 14.9 Plt Count 125 L MPV 12.1 Immature Gran % (Auto) Neut % (Auto) Lymph % (Auto) Harney % (Auto) Eos % (Auto) Baso % (Auto) Lymph # (Auto) Harney # (Auto) Eos # (Auto) Baso # (Auto) Abs Immat Gran (auto) Absolute Neuts (auto) Absolute Nucleated RBC 0.000 Nucleated RBC % (auto) 0.0 Sodium 135 Potassium 2.9 L Chloride 99 Carbon Dioxide 29 Anion Gap 10 L BUN 23 H Creatinine 3.73 H Estim Creat Clear Calc 13.9 Estimated GFR 12 POC Glucose 198 H Random Glucose 52 L* Lactic Acid Calcium 7.6 L D Total Bilirubin 2.1 H Direct Bilirubin 1.3 H AST 26 ALT 26 Alkaline Phosphatase 442 H Troponin I High Sens Total Protein 5.0 L Albumin 2.8 L Lipase COVID-19 (GLENNA) [email or web address] 08/19/22 08/19/22 08/19/22 07:24 08:08 11:50 WBC RBC Hgb Hct MCV MCH MCHC RDW Plt Count MPV Immature Gran % (Auto) Neut % (Auto) Lymph % (Auto) Harney % (Auto) Eos % (Auto) Baso % (Auto) Lymph # (Auto) Harney # (Auto) Eos # (Auto) Baso # (Auto) Abs Immat Gran (auto) Absolute Neuts (auto) Absolute Nucleated RBC Nucleated RBC % (auto) Sodium Potassium Chloride Carbon Dioxide Anion Gap BUN Creatinine Estim Creat Clear Calc Estimated GFR POC Glucose 60 66 162 H Random Glucose Lactic Acid Calcium Total Bilirubin Direct Bilirubin AST ALT Alkaline Phosphatase Troponin I High Sens Total Protein Albumin Lipase COVID-19 (GLENNA) [email or web address] 08/19/22 08/19/22 08/20/22 16:30 20:44 06:00 WBC RBC Hgb Hct MCV MCH MCHC RDW Plt Count MPV Immature Gran % (Auto) Neut % (Auto) Lymph % (Auto) Harney % (Auto) Eos % (Auto) Baso % (Auto) Lymph # (Auto) Harney # (Auto) Eos # (Auto) Baso # (Auto) Abs Immat Gran (auto) Absolute Neuts (auto) Absolute Nucleated RBC Nucleated RBC % (auto) Sodium 130 L Potassium 3.2 L Chloride 97 Carbon Dioxide 21 L Anion Gap 15 BUN 23 H Creatinine 3.93 H Estim Creat Clear Calc 13.0 Estimated GFR 11 POC Glucose 202 H 170 H Random Glucose 57 L* Lactic Acid Calcium 7.4 L Total Bilirubin Direct Bilirubin AST ALT Alkaline Phosphatase Troponin I High Sens Total Protein Albumin Lipase COVID-19 (GLENNA) [employer] 08/20/22 08/20/22 08/20/22 07:22 11:15 19:53 WBC RBC Hgb Hct MCV MCH MCHC RDW Plt Count MPV Immature Gran % (Auto) Neut % (Auto) Lymph % (Auto) Harney % (Auto) Eos % (Auto) Baso % (Auto) Lymph # (Auto) Harney # (Auto) Eos # (Auto) Baso # (Auto) Abs Immat Gran (auto) Absolute Neuts (auto) Absolute Nucleated RBC Nucleated RBC % (auto) Sodium Potassium Chloride Carbon Dioxide Anion Gap BUN Creatinine Estim Creat Clear Calc Estimated GFR POC Glucose 104 110 77 Random Glucose Lactic Acid Calcium Total Bilirubin Direct Bilirubin AST ALT Alkaline Phosphatase Troponin I High Sens Total Protein Albumin Lipase COVID-19 ([facility]ENNA) [employer] 08/21/22 07:21 WBC RBC Hgb Hct MCV MCH MCHC RDW Plt Count MPV Immature Gran % (Auto) Neut % (Auto) Lymph % (Auto) Harney % (Auto) Eos % (Auto) Baso % (Auto) Lymph # (Auto) Harney # (Auto) Eos # (Auto) Baso # (Auto) Abs Immat Gran (auto) Absolute Neuts (auto) Absolute Nucleated RBC Nucleated RBC % (auto) Sodium Potassium Chloride Carbon Dioxide Anion Gap BUN Creatinine Estim Creat Clear Calc Estimated GFR POC Glucose 87 Random Glucose Lactic Acid Calcium Total Bilirubin Direct Bilirubin AST ALT Alkaline Phosphatase Troponin I High Sens Total Protein Albumin Lipase COVID-19 (GLENNA) COVID-mySugr Airway TM Dist: >3cm Neck ROM: Full Denture: Upper and Lower Heart: RRR Lungs: CTA Assessment and Plan Final Anesthetic Review Family History of Problems with Anesthesia: No History of Problems with Anesthesia: No ASA Class: IV Final Preanesthetic Review: No Changes in Pt Med Stat, Meds/Allgs Chart Reviewed, Consent Obtained/Reviewed and Anes Risks/Benef Reviewed Patient Risk: High Procedure Risk: Intermediate Anesthetic Plan Anesthetic Plan: GA Disposition: Standard PACU
[2022-08-21] MEDS: 0.9 % Sodium Chloride Flush 3 ML SYRINGE IVFLUSH ×2 (10:08→17:53)
--- NOTE | 2022-08-21 10:29 | MHC.CM.PN ---
Per ROUNDS discussion, Patient is having surgery today and is not yet medically cleared for dc. Home is the goal and CM will continue to follow.
--- NOTE | 2022-08-21 10:51 | PC.NURSE ---
asymptomatic, pt poc 86, no iv access from floor per report of rn. new #22 to R index finger. d5w up per anesthesia. to recheck poc
[2022-08-21 11:11] LABS: Glucose, Whole Blood 68 mg/dL (60-115)
--- NOTE | 2022-08-21 11:15 | HO.PM.IMPN ---
Subjective Subjective Date of Service: 08/21/22 Interval History: no complaints Physical Exam Vital Signs: Vital Signs: Last Vital Signs Temp 97.2 F 08/21/22 10:35 Pulse 60 08/21/22 10:35 Resp 18 08/21/22 10:35 BP 141/48 H 08/21/22 10:35 Pulse Ox 98 08/21/22 10:35 O2 Del Method 08/21/22 10:35 O2 Flow Rate 2 08/21/22 04:00 Oxygen Flow Rate 2 08/18/22 01:33 BMI result Body Mass Index 32.1 Const: Other: Constitutional : Awake, interactive, not in distress Neck : Normal inspection, Supple Cardiovascular : RRR, no JVP, no lower extremity edema Respiratory : fair bilateral air entry, no crackles, wheezes or rhonchi Gastrointestinal: soft, lax, Normal bowel sounds, minimal RUQ tenderness with negative kenney sign Skin : Warm, Dry Neurological : Alert & oriented x3, No focal deficit Objective Data Active Medications Acetaminophen (Acetaminophen 325 Mg Tablet) 650 mg PO Q6H PRN PRN Reason: Pain, Mild (Pain Scale 1-3) Last Admin: 08/20/22 01:09 Dose: 650 mg Documented By: SUNSHINE Albuterol Sulfate (Albuterol Sulfate 90 Mcg 8 Gm Inhaler) 2 puff INHALE Q6H PRN PRN Reason: shortness of breath or wheezing Calcitriol (Calcitriol 0.25 Mcg Capsule) 0.5 mcg PO WeSa@1999 [facility] Last Admin: 08/20/22 20:12 Dose: 0.5 mcg Documented By: COREY Cyanocobalamin (Cyanocobalamin (Vitamin B-12) 1,000 Mcg/Ml Vial) 1,000 mcg IM Q28D [facility] Last Admin: 08/18/22 16:06 Dose: 1,000 mcg Documented By: ANITRA Docusate Sodium (Docusate Sodium 100 Mg Capsule) 100 mg PO BID [facility] Last Admin: 08/21/22 10:05 Dose: Not Given Documented By: SIA Non-Admin Reason: Off Unit: Surgery Dronedarone (Dronedarone Hcl 400 Mg Tablet) 400 mg PO BID [facility] Last Admin: 08/21/22 07:45 Dose: 400 mg Documented By: BENJI Enoxaparin Sodium (Enoxaparin Sodium 80 Mg/0.8 Ml Syringe) 80 mg SUBCUT Q24H [facility] Last Admin: 08/20/22 15:06 Dose: Not Given Documented By: ISIDRA Non-Admin Reason: Physician Held Med Fluticasone/Vilanterol (Fluticasone/Vilanterol 100/25 Blst.W.Dev) 1 puff INHALE RDAILY [facility] Last Admin: 08/21/22 07:38 Dose: 1 puff Documented By: JIMI Gabapentin (Gabapentin 100 Mg Capsule) 100 mg PO BID [facility] Last Admin: 08/21/22 07:47 Dose: 100 mg Documented By: BENJI Hydralazine HCl (Hydralazine Hcl 25 Mg Tablet) 25 mg PO TID [facility]; Protocol Last Admin: 08/21/22 07:45 Dose: 25 mg Documented By: BENJI Ceftriaxone Sodium 1 gm/ (Sodium Chloride) 50 mls @ 100 mls/hr IV Q24H [facility] Last Infusion: 08/20/22 10:50 Dose: 0 mls/hr Documented By: ISIDRA Metronidazole (Flagyl) 500 mg in 100 mls @ 100 mls/hr IV Q8H [facility] Last Infusion: 08/21/22 04:53 Dose: 0 mls/hr Documented By: COREY Insulin Human Lispro (Insulin Lispro 100 Unit/Ml 3 Ml Vial) 0 unit SUBCUT QIDACHS [facility]; Protocol Last Admin: 08/21/22 07:29 Dose: Not Given Documented By: SIA Non-Admin Reason: No Insulin Coverage Levothyroxine Sodium (Levothyroxine Sodium 25 Mcg Tablet) 25 mcg PO DAILY@0600 [facility] Last Admin: 08/21/22 05:22 Dose: 25 mcg Documented By: COREY Loratadine (Loratadine 10 Mg Tablet) 10 mg PO DAILY [facility] Last Admin: 08/21/22 10:06 Dose: Not Given Documented By: ISA Non-Admin Reason: pre op Metoprolol Tartrate (Metoprolol Tartrate 25 Mg Tablet) 25 mg PO BID [facility]; Protocol Last Admin: 08/21/22 07:46 Dose: 25 mg Documented By: BENJI Montelukast Sodium (Montelukast Sodium 10 Mg Tablet) 10 mg PO BEDTIME [facility] Last Admin: 08/20/22 20:12 Dose: 10 mg Documented By: COREY Morphine Sulfate (Morphine Sulfate 4 Mg/Ml Cartridge) 2 mg IVPUSH Q4H PRN; Protocol PRN Reason: Pain, Severe (Pain Scale 7-10) Last Admin: 08/20/22 12:11 Dose: 2 mg Documented By: ISIDRA Omeprazole (Omeprazole 20 Mg Capsule.Dr) 20 mg PO DAILY@0630 [facility] Last Admin: 08/21/22 05:22 Dose: 20 mg Documented By: COREY Ondansetron HCl (Ondansetron Hcl 4 Mg/2 Ml Vial) 4 mg IVPUSH Q8H PRN PRN Reason: Nausea and Vomiting Pharmacy Consult (Consult Rx Perform Med Rec) 1 each MISCELLANE ONCE PRN PRN Reason: Consult order Sevelamer Carbonate (Sevelamer Carbonate Tablet 800 Mg Tablet) 800 mg PO TIDWM [facility] Last Admin: 08/21/22 07:49 Dose: Not Given Documented By: BENJI Non-Admin Reason: NPO Sodium Chloride (0.9 % Sodium Chloride Flush 3 Ml Syringe) 3 ml IVFLUSH QSHIFT [facility] Last Admin: 08/21/22 10:08 Dose: 3 ml Documented By: SIA Labs 08/19/22 05:35 08/20/22 06:00 Labs: Laboratory Results - last 24 hr 08/20/22 08/20/22 08/21/22 11:15 19:53 07:21 POC Glucose 110 77 87 Blood Type Antibody Screen 08/21/22 08/21/22 09:57 10:45 POC Glucose 68 Blood Type A Positive Antibody Screen NEGATIVE Microbiology Microbiology Results: Microbiology 08/18/22 05:54 Blood Culture - Preliminary Blood - Venous No growth after 48 hours. 08/18/22 05:54 Blood Culture - Preliminary Blood - Venous No growth after 48 hours. Assessment and Plan (1) ESRD needing dialysis: Status: Acute (2) Acute cholecystitis: Status: Acute (3) Elevated transaminase level: Status: Acute (4) Hypokalemia: Status: Acute Plan A 76 years old lady with PMH of diabetes, pAFib, chronic diastolic CHF, ESRD on HD, obesity, PUD, copd/mod persistent asthma, among others who presented to the hospital complaining of right upper quadrant pain for 1 day prior to admission. Acute cholecystitis continue ceftriaxone and Flagyl suregery today acute hypokalemia monitor Acute hyponatremia monitor Paroxysmal AFib Continue metoprolol ?Holding Eliquis and started full-dose Lovenox instead preop End stage renal disease on dialysis Patient receives dialysis on TTS Nephrology following Insulin-dependent diabetes mellitus with hyperglycemia Hold home meds SSI, Lantus moderate persistent Asthma/COPD overlap syndrome Not in acute exacerbation Continue home inhalers DVT Prophylaxis: Lovenox reason for continued hospitalization:surgery today Time Spent With Patient Time: Total time managing care of this patient today ____ minutes. Quality Stroke Does the patient have a stroke diagnosis?: No VTE Prior VTE?: No VTE Risk Level:: Medical - moderate - high VTE Device Contraindication: Treatment Not Indicated VTE Drug Contraindication: N/A - Med Ordered
[2022-08-21 11:22] LABS: Glucose, Whole Blood 133 mg/dL (60-115)
--- NOTE | 2022-08-21 13:32 | W.PM.OPN ---
Operative Note Operative Note Date of Service: 08/21/22 Narrative: Preoperative diagnosis: Acute cholecystitis, cholelithiasis Postoperative diagnosis: Same Procedure: Laparoscopic cholecystectomy Surgeon: Lance Santacruz MD Bed Operator: DUDLEY Fonseca Anesthesia: General endotracheal Indications for procedure: 77-year-old female patient with multiple medical problems presenting with complaints of right upper quadrant abdominal pain a thickened gallbladder with multiple gallstones within the gallbladder. She had a previous episode of acute cholecystitis treated with cholecystostomy tube. Operative findings: Acute cholecystitis due to cholelithiasis, mildly cirrhotic appearing liver. Specimen: gallbladder Estimated blood loss: 20 mL Complications: none Procedure details: Patient was brought to the OR and placed in a supine position. After administering general anesthesia the patient's abdomen was prepped with ChloraPrep and draped in a sterile fashion. Local anesthesia consisting of 0.5% Sensorcaine without epinephrine was infiltrated in a periumbilical region. A 5 mm incision was made above the umbilicus in a transverse fashion. The Veress needle was then inserted while elevating abdominal cavity with towel clips. After positive drop test the abdomen was insufflated to a pressure of 15 mm of mercury. The Veress needle was then removed and a 5 mm trocar inserted. The camera was inserted in the abdomen explored. A 12 mm trocar was then placed in the epigastrium. Two 5 mm trocars placed in the right upper quadrant by the family medicine physician assistant. The patient was placed in reverse Trendelenburg positioning and rotated to the left. The gallbladder was grasped with the fundus and retracted cephalad by the family medicine physician assistant. The infundibulum was then grasped and retracted away from the liver bed, also by the family medicine physician assistant. The Dolphin dissected was then used by the surgeon to dissect the peritoneum off the infundibulum to reveal the junction with the cystic duct. Cystic artery was noted slightly medial and posterior to the cystic duct. After obtaining a critical view the cystic duct was doubly clipped and divided. The cystic artery was then doubly clipped and divided. The gallbladder was then dissected off the liver bed using electrocautery with an L hook. Hemostasis was assured all times using the electrocautery. When the gallbladder is completely dissected off the liver bed was placed in an Endo-Catch bag and brought out through the epigastric incision. The gallbladder was sent to pathology for further examination. The abdomen was then re-examined. The liver bed was irrigated and suctioned dry. hemostasis was assured using electrocautery. Surgicel was applied to the liver base and a Vishal-Cristina drain placed at the liver edge and brought out through the lateral trocar incision. This was secured to the skin using a 3-0 nylon suture. Drain was attached to a bulb suction. CO2 was then evacuated and all trocars removed. Fascia was closed at the epigastric incision using a [id number] Polysorb suture. Skin was closed in all incisions using a subcuticular 4 0 Polysorb suture by both the surgeon and family medicine physician assistant. Sterile dressings consisting of Steri-Strips, 2 x 2 gauze, and Tegaderm were then applied. The patient tolerated the procedure well. Sponge instrument and needle counts reported as correct. The patient was transferred to PACU in stable condition.
[2022-08-21] MEDS: fentaNYL citrate/PF 100 MCG/2 ML VIAL 25 MCG IVPUSH (14:32)
[2022-08-21] MEDS: Acetaminophen 1,000 MG/100 ML PIGGYBACK 400 MG IV (14:40)
[2022-08-21 16:47] LABS: Glucose, Whole Blood 98 mg/dL (60-115)
--- NOTE | 2022-08-21 17:35 | PM.PNNEP ---
Subjective Subjective Date of Service: 08/21/22 Interval history: seen and examined, events noted Physical Exam Vital Signs: Vital Signs: Last Vital Signs Temp 98.6 F 08/21/22 16:00 Pulse 57 08/21/22 16:00 Resp 18 08/21/22 16:00 BP 160/77 H 08/21/22 16:00 Pulse Ox 98 08/21/22 16:00 O2 Del Method 08/21/22 16:00 O2 Flow Rate 2.0 08/21/22 16:00 Oxygen Flow Rate 2 08/18/22 01:33 BMI result Body Mass Index 32.1 Const: Other: Constitutional : Awake, interactive, not in distress Neck : Normal inspection, Supple Cardiovascular : RRR, no JVP, no lower extremity edema Respiratory : fair bilateral air entry, no crackles, wheezes or rhonchi Gastrointestinal: soft, lax, Normal bowel sounds, minimal RUQ tenderness with negative marshall sign Skin : Warm, Dry Neurological : Alert & oriented x3, No focal deficit General: cooperative and no acute distress Nutritional Appearance: well nourished Orientation/consciousness: patient oriented x3 Limitations: no limitations and language barrier HEENT: Head: Yes normocephalic and Yes atraumatic Ears: hearing grossly normal bilaterally Eyes: Sclerae: sclerae normal Resp: Effort & Inspection: normal respiratory effort, no audible wheezes, no cough and no respiratory distress Cardio: Jugular venous distension: no JVD GI: Inspection: Yes normal to inspection Palpation (GI): Soft to palpation, Tenderness to palpation present (GI) in the RUQ and Marshall's sign positive, no guarding, not rigid and hepatosplenomegaly present Skin: Other: Warm, dry, no rash General skin exam: no rashes or lesions noted Neuro: General: patient oriented x3 Extrem: General: Yes normal to inspection and Yes no clubbing, cyanosis or edema Objective Data Labs 08/19/22 05:35 08/20/22 06:00 Labs: Laboratory Results - last 24 hr 08/20/22 08/21/22 08/21/22 19:53 07:21 09:57 POC Glucose 77 87 Blood Type A Positive Antibody Screen NEGATIVE 08/21/22 08/21/22 08/21/22 10:45 11:18 16:30 POC Glucose 68 133 H 98 Blood Type Antibody Screen Microbiology Microbiology Results: Microbiology 08/18/22 05:54 Blood - Venous Blood Culture - Preliminary No growth after 48 hours. 08/18/22 05:54 Blood - Venous Blood Culture - Preliminary No growth after 48 hours. Procedures Date of Service Date of Service: 08/21/22 Assessment & Plan Assessment and plan (1) ESRD needing dialysis: Status: Acute Plan -ESRD TTS HD - Symptomatic Gstones: schedule surg 08/21 - Anemia: track Hb and Tx EPO as noted REC: cont HD 3x/wk on TTS schedule; EPO as orderd; check Fe stores Will folow with team Time Spent With Patient Time: Total time managing care of this patient today ____ minutes. Progress Note: Quality Stroke Does the patient have a stroke diagnosis?: No
[2022-08-21] MEDS: Sevelamer Carbonate Tablet 800 MG TABLET PO (17:53)
[2022-08-21 20:00] LABS: Glucose, Whole Blood 165 mg/dL (60-115)
[2022-08-21 20:01] LABS: Iron 105 mcg/dL (30-160); Percent Iron Saturation 59 % (15-50); Total Iron Binding Capacity 179 mcg/dL (228-428); Unsaturated Iron Binding 74 ug/dL
[2022-08-21] MEDS: Insulin Lispro 100 UNIT/ML 3 ML VIAL SUBCUT (22:25)
[2022-08-21] MEDS: Docusate Sodium 100 MG CAPSULE PO (22:26)
[2022-08-21] MEDS: Montelukast Sodium 10 MG TABLET PO (22:26)
[2022-08-22] VITALS (10 sets, daily range): BP systolic 130–148; BP diastolic 58–64; PULSE 60–72; RESP 16–20; TEMP 36.1–37.1; O2SAT 95–99
[2022-08-22] MEDS: 0.9 % Sodium Chloride Flush 3 ML SYRINGE IVFLUSH ×4 (00:20→23:50)
[2022-08-22] MEDS: metroNIDAZOLE/NS 500 MG/100 ML PIGGYBACK 100 MG IV (02:20)
[2022-08-22] MEDS: Levothyroxine Sodium 25 MCG TABLET PO (06:09)
[2022-08-22] MEDS: Omeprazole 20 MG CAPSULE.DR PO (06:09)
[2022-08-22 06:57] LABS: Anion Gap 14 (12-20); Blood Urea Nitrogen 15 mg/dL (9-16); Calcium 7.7 mg/dL (8.4-10.2); Carbon Dioxide 18 mmol/L (22-29); Chloride 103 mmol/L (96-108); Creatinine Clr Calc Pharmacy 13.6; Estimated Glomerular Filt Rate 12; Glucose Fasting 93 mg/dL (60-99); Potassium 4.4 mmol/L (3.3-5.1); Sodium 131 mmol/L (135-145)
[2022-08-22 07:05] LABS: Glucose, Whole Blood 81 mg/dL (60-115)
[2022-08-22 07:21] LABS: Anion Gap 14 (12-20); Blood Urea Nitrogen 16 mg/dL (9-16); Calcium 7.7 mg/dL (8.4-10.2); Carbon Dioxide 18 mmol/L (22-29); Chloride 104 mmol/L (96-108); Creatinine Clr Calc Pharmacy 13.5; Estimated Glomerular Filt Rate 12; Glucose Random 95 mg/dL (60-115); Sodium 131 mmol/L (135-145)
[2022-08-22] MEDS: Docusate Sodium 100 MG CAPSULE PO ×2 (07:59→20:25)
[2022-08-22] MEDS: Dronedarone HCl 400 MG TABLET PO ×2 (07:59→20:28)
[2022-08-22] MEDS: hydrALAZINE HCl 25 MG TABLET PO ×3 (07:59→20:25)
[2022-08-22] MEDS: Acetaminophen 325 MG TABLET 650 MG PO ×2 (07:59→15:09)
[2022-08-22] MEDS: Loratadine 10 MG TABLET PO (08:00)
[2022-08-22] MEDS: Sevelamer Carbonate Tablet 800 MG TABLET PO ×3 (08:00→16:53)
[2022-08-22] MEDS: Gabapentin 100 MG CAPSULE PO ×2 (08:00→20:25)
[2022-08-22] MEDS: Metoprolol Tartrate 25 MG TABLET PO ×2 (08:00→20:25)
[2022-08-22 08:05] LABS: MANUAL DIFF FLAG NO
[2022-08-22 08:07] LABS: Basophils Percent Auto 0.4 % (0-2); Eosinophils Absolute Auto 0.4 X10*3/uL (0.0-0.4); Eosinophils Percent Auto 4.9 % (0-4); Hematocrit 32.1 % (37.0-47.0); Hemoglobin 10.1 g/dl (12.0-16.0); Imm Gran Abs Auto 0.05 X10*3/uL (0.00-0.03); Imm Gran Pct Auto 0.7 % (0.0-0.4); Lymphocytes Absolute Auto 0.6 X10*3/uL (1.2-4.9); Lymphocytes Percent Auto 7.9 % (20-40); Mean Corpuscular HGB Conc 31.5 g/dl (31.0-35.0); Mean Corpuscular Hemoglobin 30.8 pg (27.0-33.0); Mean Corpuscular Volume 97.9 fL (80.0-98.0); Mean Platelet Volume 10.6 fL (9.4-12.3); Monocytes Absolute Auto 0.4 X10*3/uL (0.1-1.2); Monocytes Percent Auto 5.6 % (2-11); Neutrophils Absolute Auto 6.1 x10*3/uL (2.0-8.3); Neutrophils Percent Auto 80.5 % (45-73); Platelet Count 153 X10*3/uL (160-400); Red Blood Count 3.28 X10*6/uL (4.20-5.50); Red Cell Distribution Width 15.5 % (11.0-16.0); White Blood Count 7.6 X10*3/uL (4.8-10.8)
--- NOTE | 2022-08-22 08:27 | P.PNGS_ITS ---
Subjective Subjective Date of Service: 08/22/22 Interval history: A little pain but overall feels ok. Hungry and wants solid food. Has not been oob. Passing flatus. Physical Exam Vital Signs: Vital Signs: Last Vital Signs Temp 98 F 08/22/22 08:00 Pulse 72 08/22/22 08:00 Resp 20 08/22/22 08:00 BP 132/64 08/22/22 08:00 Pulse Ox 96 08/22/22 08:00 O2 Del Method 08/22/22 06:47 O2 Flow Rate 2 08/21/22 23:44 Oxygen Flow Rate 2 08/18/22 01:33 BMI result Body Mass Index 32.1 Const: General: comfortable, no acute distress and alert Orientation/consciousness: patient oriented x3 GI: Other: DENISE drain with scanty sanguineous drainage Inspection: No distended and Yes incision (clean) Skin: General skin exam: no rashes or lesions noted Neuro: General: patient oriented x3 Objective Data Active Medications Acetaminophen (Acetaminophen 325 Mg Tablet) 650 mg PO Q6H PRN PRN Reason: Pain, Mild (Pain Scale 1-3) Last Admin: 08/22/22 07:59 Dose: 650 mg Documented By: SIA Albuterol Sulfate (Albuterol Sulfate 90 Mcg 8 Gm Inhaler) 2 puff INHALE Q6H PRN PRN Reason: shortness of breath or wheezing Calcitriol (Calcitriol 0.25 Mcg Capsule) 0.5 mcg PO TuWeSa@1999 [facility] Last Admin: 08/21/22 22:28 Dose: Not Given Documented By: ANITRA Non-Admin Reason: no dialysis today Cyanocobalamin (Cyanocobalamin (Vitamin B-12) 1,000 Mcg/Ml Vial) 1,000 mcg IM Q28D [facility] Last Admin: 08/18/22 16:06 Dose: 1,000 mcg Documented By: ANITRA Docusate Sodium (Docusate Sodium 100 Mg Capsule) 100 mg PO BID [facility] Last Admin: 08/22/22 07:59 Dose: 100 mg Documented By: SIA Dronedarone (Dronedarone Hcl 400 Mg Tablet) 400 mg PO BID [facility] Last Admin: 08/22/22 07:59 Dose: 400 mg Documented By: SIA Enoxaparin Sodium (Enoxaparin Sodium 80 Mg/0.8 Ml Syringe) 80 mg SUBCUT Q24H [facility] Last Admin: 08/20/22 15:06 Dose: Not Given Documented By: ISIDRA Non-Admin Reason: Physician Held Med Fluticasone/Vilanterol (Fluticasone/Vilanterol 100/25 Blst.W.Dev) 1 puff INHALE RDAILY [facility] Last Admin: 08/22/22 07:50 Dose: Not Given Documented By: NADEEN Non-Admin Reason: Patient Refused Gabapentin (Gabapentin 100 Mg Capsule) 100 mg PO BID [facility] Last Admin: 08/22/22 08:00 Dose: 100 mg Documented By: SIA Hydralazine HCl (Hydralazine Hcl 25 Mg Tablet) 25 mg PO TID [facility]; Protocol Last Admin: 08/22/22 07:59 Dose: 25 mg Documented By: SIA Ceftriaxone Sodium 1 gm/ (Sodium Chloride) 50 mls @ 100 mls/hr IV Q24H [facility] Last Admin: 08/21/22 11:18 Dose: Not Given Documented By: SIA Non-Admin Reason: Off Unit: Surgery Metronidazole (Flagyl) 500 mg in 100 mls @ 100 mls/hr IV Q8H [facility] Last Infusion: 08/22/22 03:21 Dose: 0 mls/hr Documented By: BLAKE Promethazine HCl 6.25 mg/ (Sodium Chloride) 50.25 mls @ 201 mls/hr IV ONCE PRN PRN Reason: Nausea and Vomiting Insulin Human Lispro (Insulin Lispro 100 Unit/Ml 3 Ml Vial) 0 unit SUBCUT QIDACHS [facility]; Protocol Last Admin: 08/22/22 07:52 Dose: Not Given Documented By: SIA Non-Admin Reason: No Insulin Coverage Levothyroxine Sodium (Levothyroxine Sodium 25 Mcg Tablet) 25 mcg PO DAILY@0600 [facility] Last Admin: 08/22/22 06:09 Dose: 25 mcg Documented By: BLAKE Loratadine (Loratadine 10 Mg Tablet) 10 mg PO DAILY [facility] Last Admin: 08/22/22 08:00 Dose: 10 mg Documented By: SIA Metoprolol Tartrate (Metoprolol Tartrate 25 Mg Tablet) 25 mg PO BID [facility]; Protocol Last Admin: 08/22/22 08:00 Dose: 25 mg Documented By: SIA Montelukast Sodium (Montelukast Sodium 10 Mg Tablet) 10 mg PO BEDTIME [facility] Last Admin: 08/21/22 22:26 Dose: 10 mg Documented By: ANITRA Morphine Sulfate (Morphine Sulfate 4 Mg/Ml Cartridge) 2 mg IVPUSH Q4H PRN; Prot ocol PRN Reason: Pain, Severe (Pain Scale 7-10) Last Admin: 08/20/22 12:11 Dose: 2 mg Documented By: ISIDRA Omeprazole (Omeprazole 20 Mg Capsule.) 20 mg PO DAILY@0630 [facility] Last Admin: 08/22/22 06:09 Dose: 20 mg Documented By: BLAKE Ondansetron HCl (Ondansetron Hcl 4 Mg/2 Ml Vial) 4 mg IVPUSH Q8H PRN PRN Reason: Nausea and Vomiting Pharmacy Consult (Consult Rx Perform Med Rec) 1 each MISCELLANE ONCE PRN PRN Reason: Consult order Sevelamer Carbonate (Sevelamer Carbonate Tablet 800 Mg Tablet) 800 mg PO TIDWM [facility] Last Admin: 08/22/22 08:00 Dose: 800 mg Documented By: SIA Sodium Chloride (0.9 % Sodium Chloride Flush 3 Ml Syringe) 3 ml IVFLUSH QSHIFT [facility] Last Admin: 08/22/22 08:02 Dose: 3 ml Documented By: SIA Labs 08/22/22 07:52 08/22/22 06:26 Labs: Laboratory Results - last 24 hr 08/20/22 08/21/22 08/21/22 06:00 09:57 10:45 MCV MCH MCHC RDW Plt Count MPV Immature Gran % (Auto) Neut % (Auto) Lymph % (Auto) [place] % (Auto) Eos % (Auto) Baso % (Auto) Lymph # (Auto) [place] # (Auto) Eos # (Auto) Baso # (Auto) Abs Immat Gran (auto) Absolute Neuts (auto) Absolute Nucleated RBC Nucleated RBC % (auto) Anion Gap Estim Creat Clear Calc Estimated GFR POC Glucose 68 Random Glucose Fasting Glucose Calcium Iron 105 TIBC 179 L % Saturation 59 H Unsat Iron Binding 74 Blood Type A Positive Antibody Screen NEGATIVE 08/21/22 08/21/22 08/21/22 11:18 16:30 19:24 MCV MCH MCHC RDW Plt Count MPV Immature Gran % (Auto) Neut % (Auto) Lymph % (Auto) [place] % (Auto) Eos % (Auto) Baso % (Auto) Lymph # (Auto) [place] # (Auto) Eos # (Auto) Baso # (Auto) Abs Immat Gran (auto) Absolute Neuts (auto) Absolute Nucleated RBC Nucleated RBC % (auto) Anion Gap Estim Creat Clear Calc Estimated GFR POC Glucose 133 H 98 165 H Random Glucose Fasting Glucose Calcium Iron TIBC % Saturation Unsat Iron Binding Blood Type Antibody Screen 08/22/22 08/22/22 08/22/22 06:26 06:26 06:26 MCV Cancelled MCH Cancelled MCHC Cancelled RDW Cancelled Plt Count Cancelled MPV Cancelled Immature Gran % (Auto) Cancelled Neut % (Auto) Cancelled Lymph % (Auto) Cancelled [place] % (Auto) Cancelled Eos % (Auto) Cancelled Baso % (Auto) Cancelled Lymph # (Auto) Cancelled [place] # (Auto) Cancelled Eos # (Auto) Cancelled Baso # (Auto) Cancelled Abs Immat Gran (auto) Cancelled Absolute Neuts (auto) Cancelled Absolute Nucleated RBC Cancelled Nucleated RBC % (auto) Cancelled Anion Gap 14 14 Estim Creat Clear Calc 13.6 13.5 Estimated GFR 12 12 POC Glucose Random Glucose 95 Fasting Glucose 93 Calcium 7.7 L 7.7 L Iron TIBC % Saturation Unsat Iron Binding Blood Type Antibody Screen 08/22/22 08/22/22 06:47 07:52 MCV 97.9 MCH 30.8 MCHC 31.5 RDW 15.5 Plt Count 153 L MPV 10.6 Immature Gran % (Auto) 0.7 H Neut % (Auto) 80.5 H Lymph % (Auto) 7.9 L [place] % (Auto) 5.6 Eos % (Auto) 4.9 H Baso % (Auto) 0.4 Lymph # (Auto) 0.6 L [place] # (Auto) 0.4 Eos # (Auto) 0.4 Baso # (Auto) 0.0 Abs Immat Gran (auto) 0.05 H Absolute Neuts (auto) 6.1 Absolute Nucleated RBC 0.000 Nucleated RBC % (auto) 0.0 Anion Gap Estim Creat Clear Calc Estimated GFR POC Glucose 81 Random Glucose Fasting Glucose Calcium Iron TIBC % Saturation Unsat Iron Binding Blood Type Antibody Screen Procedures Date of Service Date of Service: 08/22/22 Progress Note: A&P Assessment and plan (1) Acute cholecystitis: Status: Acute (2) ESRD needing dialysis: Status: Acute (3) S/P laparoscopic cholecystectomy: Status: Acute Plan 76-year-old female patient with multiple medical problems returning with recurrent abdominal pain in the right upper quadrant consistent with acute cholecystitis due to cholelithiasis. She is now POD #1 s/p lap CCY. DENISE drain left in place. Feels overall well this morning, comfortable. VSS. AM labs reviewed. DENISE drain with nonbilious output. Going for dialysis now. Will advance to a solid diet. Consult PT as ambulation has been limited. Home likely tomorrow if medically cleared. Will remove drain prior to dc. Time Spent With Patient Time: Total time managing care of this patient today ____ minutes. Quality Stroke Does the patient have a stroke diagnosis?: No VTE Prior VTE?: No VTE Risk Level:: Medical - moderate - high VTE Device Contraindication: Treatment Not Indicated VTE Drug Contraindication: N/A - Med Ordered
--- NOTE | 2022-08-22 09:06 | P.PNIM_ITS ---
Subjective Subjective Date of Service: 08/22/22 Interval History: surgical site pain Physical Exam Vital Signs: Vital Signs: Last Vital Signs Temp 98 F 08/22/22 08:00 Pulse 72 08/22/22 08:00 Resp 20 08/22/22 08:00 BP 132/64 08/22/22 08:00 Pulse Ox 96 08/22/22 08:00 O2 Del Method 08/22/22 06:47 O2 Flow Rate 2 08/21/22 23:44 Oxygen Flow Rate 2 08/18/22 01:33 BMI result Body Mass Index 32.1 Objective Data Active Medications Acetaminophen (Acetaminophen 325 Mg Tablet) 650 mg PO Q6H PRN PRN Reason: Pain, Mild (Pain Scale 1-3) Last Admin: 08/22/22 07:59 Dose: 650 mg Documented By: SIA Albuterol Sulfate (Albuterol Sulfate 90 Mcg 8 Gm Inhaler) 2 puff INHALE Q6H PRN PRN Reason: shortness of breath or wheezing Calcitriol (Calcitriol 0.25 Mcg Capsule) 0.5 mcg PO @1999 [facility] Last Admin: 08/21/22 22:28 Dose: Not Given Documented By: ANITRA Non-Admin Reason: no dialysis today Cyanocobalamin (Cyanocobalamin (Vitamin B-12) 1,000 Mcg/Ml Vial) 1,000 mcg IM Q28D [facility] Last Admin: 08/18/22 16:06 Dose: 1,000 mcg Documented By: ANITRA Docusate Sodium (Docusate Sodium 100 Mg Capsule) 100 mg PO BID [facility] Last Admin: 08/22/22 07:59 Dose: 100 mg Documented By: SIA Dronedarone (Dronedarone Hcl 400 Mg Tablet) 400 mg PO BID [facility] Last Admin: 08/22/22 07:59 Dose: 400 mg Documented By: SIA Enoxaparin Sodium (Enoxaparin Sodium 80 Mg/0.8 Ml Syringe) 80 mg SUBCUT Q24H [facility] Last Admin: 08/20/22 15:06 Dose: Not Given Documented By: ISIDRA Non-Admin Reason: Physician Held Med Fluticasone/Vilanterol (Fluticasone/Vilanterol 100/25 Blst.W.Dev) 1 puff INHALE RDAILY [facility] Last Admin: 08/22/22 07:50 Dose: Not Given Documented By: NADEEN Non-Admin Reason: Patient Refused Gabapentin (Gabapentin 100 Mg Capsule) 100 mg PO BID [facility] Last Admin: 08/22/22 08:00 Dose: 100 mg Documented By: SIA Hydralazine HCl (Hydralazine Hcl 25 Mg Tablet) 25 mg PO TID [facility]; Protocol Last Admin: 08/22/22 07:59 Dose: 25 mg Documented By: SIA Ceftriaxone Sodium 1 gm/ (Sodium Chloride) 50 mls @ 100 mls/hr IV Q24H [facility] Last Admin: 08/21/22 11:18 Dose: Not Given Documented By: SIA Non-Admin Reason: Off Unit: Surgery Metronidazole (Flagyl) 500 mg in 100 mls @ 100 mls/hr IV Q8H [facility] Last Infusion: 08/22/22 03:21 Dose: 0 mls/hr Documented By: BLAKE Promethazine HCl 6.25 mg/ (Sodium Chloride) 50.25 mls @ 201 mls/hr IV ONCE PRN PRN Reason: Nausea and Vomiting Insulin Human Lispro (Insulin Lispro 100 Unit/Ml 3 Ml Vial) 0 unit SUBCUT QIDACHS [facility]; Protocol Last Admin: 08/22/22 07:52 Dose: Not Given Documented By: SIA Non-Admin Reason: No Insulin Coverage Levothyroxine Sodium (Levothyroxine Sodium 25 Mcg Tablet) 25 mcg PO DAILY@0600 [facility] Last Admin: 08/22/22 06:09 Dose: 25 mcg Documented By: BLAKE Loratadine (Loratadine 10 Mg Tablet) 10 mg PO DAILY [facility] Last Admin: 08/22/22 08:00 Dose: 10 mg Documented By: SIA Metoprolol Tartrate (Metoprolol Tartrate 25 Mg Tablet) 25 mg PO BID [facility]; Protocol Last Admin: 08/22/22 08:00 Dose: 25 mg Documented By: SIA Montelukast Sodium (Montelukast Sodium 10 Mg Tablet) 10 mg PO BEDTIME [facility] Last Admin: 08/21/22 22:26 Dose: 10 mg Documented By: ANITRA Morphine Sulfate (Morphine Sulfate 4 Mg/Ml Cartridge) 2 mg IVPUSH Q4H PRN; Protocol PRN Reason: Pain, Severe (Pain Scale 7-10) Last Admin: 08/20/22 12:11 Dose: 2 mg Documented By: ISIDRA Omeprazole (Omeprazole 20 Mg Capsule.) 20 mg PO DAILY@0630 [facility] Last Admin: 08/22/22 06:09 Dose: 20 mg Documented By: BLAKE Ondansetron HCl (Ondansetron Hcl 4 Mg/2 Ml Vial) 4 mg IVPUSH Q8H PRN PRN Reason: Nausea and Vomiting Pharmacy Consult (Consult Rx Perform Med Rec) 1 each MISCELLANE ONCE PRN PRN Reason: Consult order Sevelamer Carbonate (Sevelamer Carbonate Tablet 800 Mg Tablet) 800 mg PO TIDWM [facility] Last Admin: 08/22/22 08:00 Dose: 800 mg Documented By: SIA Sodium Chloride (0.9 % Sodium Chloride Flush 3 Ml Syringe) 3 ml IVFLUSH QSHIFT [facility] Last Admin: 08/22/22 08:02 Dose: 3 ml Documented By: SIA Labs 08/22/22 07:52 08/22/22 06:26 Labs: Laboratory Results - last 24 hr 08/20/22 08/21/22 08/21/22 06:00 09:57 10:45 MCV MCH MCHC RDW Plt Count MPV Immature Gran % (Auto) Neut % (Auto) Lymph % (Auto) [place] % (Auto) Eos % (Auto) Baso % (Auto) Lymph # (Auto) [place] # (Auto) Eos # (Auto) Baso # (Auto) Abs Immat Gran (auto) Absolute Neuts (auto) Absolute Nucleated RBC Nucleated RBC % (auto) Anion Gap Estim Creat Clear Calc Estimated GFR POC Glucose 68 Random Glucose Fasting Glucose Calcium Iron 105 TIBC 179 L % Saturation 59 H Unsat Iron Binding 74 Blood Type A Positive Antibody Screen NEGATIVE 08/21/22 08/21/22 08/21/22 11:18 16:30 19:24 MCV MCH MCHC RDW Plt Count MPV Immature Gran % (Auto) Neut % (Auto) Lymph % (Auto) [place] % (Auto) Eos % (Auto) Baso % (Auto) Lymph # (Auto) [place] # (Auto) Eos # (Auto) Baso # (Auto) Abs Immat Gran (auto) Absolute Neuts (auto) Absolute Nucleated RBC Nucleated RBC % (auto) Anion Gap Estim Creat Clear Calc Estimated GFR POC Glucose 133 H 98 165 H Random Glucose Fasting Glucose Calcium Iron TIBC % Saturation Unsat Iron Binding Blood Type Antibody Screen 08/22/22 08/22/22 08/22/22 06:26 06:26 06:26 MCV Cancelled MCH Cancelled MCHC Cancelled RDW Cancelled Plt Count Cancelled MPV Cancelled Immature Gran % (Auto) Cancelled Neut % (Auto) Cancelled Lymph % (Auto) Cancelled [place] % (Auto) Cancelled Eos % (Auto) Cancelled Baso % (Auto) Cancelled Lymph # (Auto) Cancelled [place] # (Auto) Cancelled Eos # (Auto) Cancelled Baso # (Auto) Cancelled Abs Immat Gran (auto) Cancelled Absolute Neuts (auto) Cancelled Absolute Nucleated RBC Cancelled Nucleated RBC % (auto) Cancelled Anion Gap 14 14 Estim Creat Clear Calc 13.6 13.5 Estimated GFR 12 12 POC Glucose Random Glucose 95 Fasting Glucose 93 Calcium 7.7 L 7.7 L Iron TIBC % Saturation Unsat Iron Binding Blood Type Antibody Screen 08/22/22 08/22/22 06:47 07:52 MCV 97.9 MCH 30.8 MCHC 31.5 RDW 15.5 Plt Count 153 L MPV 10.6 Immature Gran % (Auto) 0.7 H Neut % (Auto) 80.5 H Lymph % (Auto) 7.9 L [place] % (Auto) 5.6 Eos % (Auto) 4.9 H Baso % (Auto) 0.4 Lymph # (Auto) 0.6 L [place] # (Auto) 0.4 Eos # (Auto) 0.4 Baso # (Auto) 0.0 Abs Immat Gran (auto) 0.05 H Absolute Neuts (auto) 6.1 Absolute Nucleated RBC 0.000 Nucleated RBC % (auto) 0.0 Anion Gap Estim Creat Clear Calc Estimated GFR POC Glucose 81 Random Glucose Fasting Glucose Calcium Iron TIBC % Saturation Unsat Iron Binding Blood Type Antibody Screen Assessment and Plan (1) ESRD needing dialysis: Status: Acute (2) Acute cholecystitis: Status: Acute (3) Elevated transaminase level: Status: Acute (4) Hypokalemia: Status: Acute Plan A 76 years old lady with PMH of diabetes, pAFib, chronic diastolic CHF, ESRD on HD, obesity, PUD, copd/mod persistent asthma, among others who presented to the hospital complaining of right upper quadrant pain for 1 day prior to admission. Acute cholecystitis POD 1 lap choly acute hypokalemia resolved Acute hyponatremia mild, monitor Paroxysmal AFib Continue metoprolol restart eliquis End stage renal disease on dialysis Patient receives dialysis on TTS Nephrology following Insulin-dependent diabetes mellitus with hyperglycemia Hold home meds SSI, Lantus moderate persistent Asthma/COPD overlap syndrome Not in acute exacerbation Continue home inhalers DVT Prophylaxis: saran reason for continued hospitalization:manage post op pain Time Spent With Patient Time: Total time managing care of this patient today ____ minutes. Quality Stroke Does the patient have a stroke diagnosis?: No VTE Prior VTE?: No VTE Risk Level:: Medical - moderate - high VTE Device Contraindication: Treatment Not Indicated VTE Drug Contraindication: N/A - Med Ordered
[2022-08-22 10:42] LABS: Ferritin 2296 ng/mL (10-250)
[2022-08-22 12:56] LABS: Glucose, Whole Blood 83 mg/dL (60-115)
--- NOTE | 2022-08-22 13:40 | MHC.CM.PN ---
CM met with Patient and her Son and assisted Patient with the completion of a HCP. CM will follow.
--- NOTE | 2022-08-22 13:59 | HO.POSTANES ---
Post Anesthesia Evaluation Post Anesthesia Evaluation Vital Signs: Vital Signs Temp Pulse Resp BP Pulse Ox O2 Del Method 08/22/22 13:04 63 140/63 H 96 08/22/22 12:00 97.8 F 63 20 140/63 H 96 Room Air 08/22/22 08:00 98 F 72 20 132/64 96 08/22/22 13:41 Room Air 08/22/22 06:47 98 F 64 18 141/62 H 99 Room Air 08/22/22 03:08 96.9 F 61 16 134/62 95 Room Air Anesthesia: General Endotracheal-GETA Mental Status: Awake Pain Control: Satisfactory Nausea/Vomiting: None Hydration: Adequate Anesthesia-Related Issues: No Anes. Related Issues
[2022-08-22] MEDS: Insulin Lispro 100 UNIT/ML 3 ML VIAL SUBCUT ×2 (16:53→20:50)
[2022-08-22 17:04] LABS: Glucose, Whole Blood 188 mg/dL (60-115)
--- NOTE | 2022-08-22 19:39 | P.PNNP_ITS ---
Subjective Subjective Date of Service: 08/22/22 Interval history: Seen and examined,events noted Physical Exam Vital Signs: Vital Signs: Last Vital Signs Temp 98.7 F 08/22/22 15:51 Pulse 64 08/22/22 18:16 Resp 18 08/22/22 15:51 BP 148/61 H 08/22/22 15:51 Pulse Ox 97 08/22/22 18:16 O2 Del Method 08/22/22 18:16 O2 Flow Rate 2 08/21/22 23:44 Oxygen Flow Rate 2 08/18/22 01:33 BMI result Body Mass Index 32.1 Const: Other: Constitutional : Awake, interactive, not in distress Neck : Normal inspection, Supple Cardiovascular : RRR, no JVP, no lower extremity edema Respiratory : fair bilateral air entry, no crackles, wheezes or rhonchi Gastrointestinal: soft, lax, Normal bowel sounds, minimal RUQ tenderness with negative marshall sign Skin : Warm, Dry Neurological : Alert & oriented x3, No focal deficit General: cooperative and no acute distress Nutritional Appearance: well nourished Orientation/consciousness: patient oriented x3 Limitations: no limitations and language barrier HEENT: Head: Yes normocephalic and Yes atraumatic Ears: hearing grossly normal bilaterally Eyes: Sclerae: sclerae normal Resp: Effort & Inspection: normal respiratory effort, no audible wheezes, no cough and no respiratory distress Cardio: Jugular venous distension: no JVD GI: Inspection: Yes normal to inspection Palpation (GI): Soft to palpation, Tenderness to palpation present (GI) in the RUQ and Marshall's sign positive, no guarding, not rigid and hepatosplenomegaly present Skin: Other: Warm, dry, no rash General skin exam: no rashes or lesions noted Neuro: General: patient oriented x3 Extrem: General: Yes normal to inspection and Yes no clubbing, cyanosis or edema Objective Data Labs 08/22/22 07:52 08/22/22 06:26 Labs: Laboratory Results - last 24 hr 08/20/22 08/21/22 08/22/22 06:00 19:24 06:26 WBC Cancelled RBC Cancelled Hgb Cancelled Hct Cancelled MCV Cancelled MCH Cancelled MCHC Cancelled RDW Cancelled Plt Count Cancelled MPV Cancelled Immature Gran % (Auto) Cancelled Neut % (Auto) Cancelled Lymph % (Auto) Cancelled [place] % (Auto) Cancelled Eos % (Auto) Cancelled Baso % (Auto) Cancelled Lymph # (Auto) Cancelled [place] # (Auto) Cancelled Eos # (Auto) Cancelled Baso # (Auto) Cancelled Abs Immat Gran (auto) Cancelled Absolute Neuts (auto) Cancelled Absolute Nucleated RBC Cancelled Nucleated RBC % (auto) Cancelled Sodium Potassium Chloride Carbon Dioxide Anion Gap BUN Creatinine Estim Creat Clear Calc Estimated GFR POC Glucose 165 H Random Glucose Fasting Glucose Calcium Iron 105 TIBC 179 L % Saturation 59 H Unsat Iron Binding 74 Ferritin 08/22/22 08/22/22 08/22/22 06:26 06:26 06:47 WBC RBC Hgb Hct MCV MCH MCHC RDW Plt Count MPV Immature Gran % (Auto) Neut % (Auto) Lymph % (Auto) [place] % (Auto) Eos % (Auto) Baso % (Auto) Lymph # (Auto) [place] # (Auto) Eos # (Auto) Baso # (Auto) Abs Immat Gran (auto) Absolute Neuts (auto) Absolute Nucleated RBC Nucleated RBC % (auto) Sodium 131 L 131 L Potassium 4.4 D 5.0 Chloride 103 104 Carbon Dioxide 18 L 18 L Anion Gap 14 14 BUN 15 16 Creatinine 3.75 H 3.77 H Estim Creat Clear Calc 13.6 13.5 Estimated GFR 12 12 POC Glucose 81 Random Glucose 95 Fasting Glucose 93 Calcium 7.7 L 7.7 L Iron TIBC % Saturation Unsat Iron Binding Ferritin 2296 H 08/22/22 08/22/22 08/22/22 07:52 12:54 16:47 WBC 7.6 RBC 3.28 L Hgb 10.1 L Hct 32.1 L MCV 97.9 MCH 30.8 MCHC 31.5 RDW 15.5 Plt Count 153 L MPV 10.6 Immature Gran % (Auto) 0.7 H Neut % (Auto) 80.5 H Lymph % (Auto) 7.9 L [place] % (Auto) 5.6 Eos % (Auto) 4.9 H Baso % (Auto) 0.4 Lymph # (Auto) 0.6 L [place] # (Auto) 0.4 Eos # (Auto) 0.4 Baso # (Auto) 0.0 Abs Immat Gran (auto) 0.05 H Absolute Neuts (auto) 6.1 Absolute Nucleated RBC 0.000 Nucleated RBC % (auto) 0.0 Sodium Potassium Chloride Carbon Dioxide Anion Gap BUN Creatinine Estim Creat Clear Calc Estimated GFR POC Glucose 83 188 H Random Glucose Fasting Glucose Calcium Iron TIBC % Saturation Unsat Iron Binding Ferritin Microbiology Microbiology Results: Microbiology 08/18/22 05:54 Blood - Venous Blood Culture - Preliminary No growth after 48 hours. 08/18/22 05:54 Blood - Venous Blood Culture - Preliminary No growth after 48 hours. Procedures Date of Service Date of Service: 08/22/22 Assessment & Plan Assessment and plan (1) ESRD needing dialysis: Status: Acute Plan -ESRD TTS HD - Symptomatic Gstones: s/p surg 08/21 - Anemia: track Hb a REC: cont HD 3x/wk on TTS schedule; EPO as orderd; d/c planning Will folow with team Time Spent With Patient Time: Total time managing care of this patient today ____ minutes. Progress Note: Quality Stroke Does the patient have a stroke diagnosis?: No
[2022-08-22] MEDS: Albuterol Sulfate 90 MCG 8 GM INHALER 2 PUFF INHALE (20:00)
[2022-08-22] MEDS: Montelukast Sodium 10 MG TABLET PO (20:24)
[2022-08-22] MEDS: Apixaban 5 MG TABLET PO (20:25)
[2022-08-22 20:28] LABS: Glucose, Whole Blood 188 mg/dL (60-115)
[2022-08-23] VITALS (9 sets, daily range): BP systolic 137–179; BP diastolic 64–78; PULSE 59–67; RESP 17–18; TEMP 36–36.6; O2SAT 94–99
[2022-08-23] MEDS: Morphine Sulfate 4 MG/ML CARTRIDGE 2 MG IVPUSH (02:42)
[2022-08-23] MEDS: Omeprazole 20 MG CAPSULE.DR PO (05:48)
[2022-08-23] MEDS: Levothyroxine Sodium 25 MCG TABLET PO (05:48)
[2022-08-23 06:41] LABS: Hematocrit 32.5 % (37.0-47.0); Hemoglobin 10.3 g/dl (12.0-16.0); Mean Corpuscular HGB Conc 31.7 g/dl (31.0-35.0); Mean Corpuscular Hemoglobin 31.4 pg (27.0-33.0); Mean Corpuscular Volume 99.1 fL (80.0-98.0); PLT CLUMP 1; Red Blood Count 3.28 X10*6/uL (4.20-5.50); Red Cell Distribution Width 15.5 % (11.0-16.0)
[2022-08-23 07:16] LABS: Platelet Count 105 X10*3/uL (160-400); White Blood Count 8.8 X10*3/uL (4.8-10.8)
[2022-08-23 07:28] LABS: Alanine Aminotransferase 18 U/L (0-31); Albumin Level 2.9 g/dL (3.5-5.0); Alkaline Phosphatase 371 U/L (39-117); Anion Gap 17 (12-20); Aspartate Amino Transferase 29 U/L (5-31); Bilirubin Direct 0.3 mg/dL (0.0-0.5); Blood Urea Nitrogen 14 mg/dL (9-16); Calcium 7.9 mg/dL (8.4-10.2); Carbon Dioxide 15 mmol/L (22-29); Chloride 104 mmol/L (96-108); Creatinine Clr Calc Pharmacy 15.8; Estimated Glomerular Filt Rate 14; Glucose Fasting 164 mg/dL (60-99); Potassium 5.2 mmol/L (3.3-5.1); Sodium 131 mmol/L (135-145); Total Protein 5.8 g/dL (6.5-8.0)
[2022-08-23 08:12] LABS: Glucose, Whole Blood 205 mg/dL (60-115)
[2022-08-23] MEDS: Insulin Lispro 100 UNIT/ML 3 ML VIAL SUBCUT ×4 (08:41→21:29)
[2022-08-23] MEDS: Metoprolol Tartrate 25 MG TABLET PO (08:43)
[2022-08-23] MEDS: Dronedarone HCl 400 MG TABLET PO ×2 (08:43→21:05)
[2022-08-23] MEDS: Apixaban 5 MG TABLET PO ×2 (08:43→21:05)
[2022-08-23] MEDS: hydrALAZINE HCl 25 MG TABLET PO ×3 (08:44→21:05)
[2022-08-23] MEDS: Sevelamer Carbonate Tablet 800 MG TABLET PO ×3 (08:44→17:45)
[2022-08-23] MEDS: Loratadine 10 MG TABLET PO (08:44)
[2022-08-23] MEDS: 0.9 % Sodium Chloride Flush 3 ML SYRINGE IVFLUSH ×3 (08:44→23:49)
[2022-08-23] MEDS: Gabapentin 100 MG CAPSULE PO ×2 (08:44→21:05)
[2022-08-23] MEDS: Docusate Sodium 100 MG CAPSULE PO ×2 (08:45→21:05)
--- NOTE | 2022-08-23 08:56 | P.PNGS_ITS ---
Subjective Subjective Date of Service: 08/23/22 Interval history: Feels ok this morning. Denies pain. Tolerating solid diet. Passing flatus. Wants to go home. Physical Exam Vital Signs: Vital Signs: Last Vital Signs Temp 97.3 F 08/23/22 08:00 Pulse 67 08/23/22 08:00 Resp 18 08/23/22 08:00 BP 143/76 H 08/23/22 08:00 Pulse Ox 94 08/23/22 08:00 O2 Del Method 08/23/22 08:00 O2 Flow Rate 2 08/21/22 23:44 Oxygen Flow Rate 2 08/18/22 01:33 BMI result Body Mass Index 32.1 Const: General: comfortable, no acute distress and alert Orientation/consciousness: patient oriented x3 Resp: Effort & Inspection: normal respiratory effort GI: Other: DENISE drain with scanty serosanguineous output Inspection: Yes distended (softly) and Yes incision (clean) Palpation (GI): Soft to palpation, nontender, no guarding and not rigid Percussion: Yes tympanic to percussion Skin: General skin exam: no rashes or lesions noted Neuro: General: patient oriented x3 Objective Data Active Medications Acetaminophen (Acetaminophen 325 Mg Tablet) 650 mg PO Q6H PRN PRN Reason: Pain, Mild (Pain Scale 1-3) Last Admin: 08/22/22 15:09 Dose: 650 mg Documented By: SIA Albuterol Sulfate (Albuterol Sulfate 90 Mcg 8 Gm Inhaler) 2 puff INHALE Q6H PRN PRN Reason: shortness of breath or wheezing Last Admin: 08/22/22 20:00 Dose: 2 puff Documented By: FARHAT Apixaban (Apixaban 5 Mg Tablet) 5 mg PO BID [facility] Last Admin: 08/23/22 08:43 Dose: 5 mg Documented By: SIA Calcitriol (Calcitriol 0.25 Mcg Capsule) 0.5 mcg PO @1999 [facility] Last Admin: 08/21/22 22:28 Dose: Not Given Documented By: ANITRA Non-Admin Reason: no dialysis today Cyanocobalamin (Cyanocobalamin (Vitamin B-12) 1,000 Mcg/Ml Vial) 1,000 mcg IM Q28D [facility] Last Admin: 08/18/22 16:06 Dose: 1,000 mcg Documented By: ANITRA Docusate Sodium (Docusate Sodium 100 Mg Capsule) 100 mg PO BID [facility] Last Admin: 08/23/22 08:45 Dose: 100 mg Documented By: SIA Dronedarone (Dronedarone Hcl 400 Mg Tablet) 400 mg PO BID [facility] Last Admin: 08/23/22 08:43 Dose: 400 mg Documented By: SIA Fluticasone/Vilanterol (Fluticasone/Vilanterol 100/25 Blst.W.Dev) 1 puff INHALE RDAILY [facility] Last Admin: 08/23/22 07:58 Dose: Not Given Documented By: NADEEN Non-Admin Reason: Med Not Available Gabapentin (Gabapentin 100 Mg Capsule) 100 mg PO BID [facility] Last Admin: 08/23/22 08:44 Dose: 100 mg Documented By: SIA Hydralazine HCl (Hydralazine Hcl 25 Mg Tablet) 25 mg PO TID [facility]; Protocol Last Admin: 08/23/22 08:44 Dose: 25 mg Documented By: SIA Promethazine HCl 6.25 mg/ (Sodium Chloride) 50.25 mls @ 201 mls/hr IV ONCE PRN PRN Reason: Nausea and Vomiting Insulin Human Lispro (Insulin Lispro 100 Unit/Ml 3 Ml Vial) 0 unit SUBCUT QIDACHS [facility]; Protocol Last Admin: 08/23/22 08:41 Dose: 2 unit Documented By: SIA Comments: Levothyroxine Sodium (Levothyroxine Sodium 25 Mcg Tablet) 25 mcg PO DAILY@0600 [facility] Last Admin: 08/23/22 05:48 Dose: 25 mcg Documented By: BLAKE Loratadine (Loratadine 10 Mg Tablet) 10 mg PO DAILY [facility] Last Admin: 08/23/22 08:44 Dose: 10 mg Documented By: SIA Metoprolol Tartrate (Metoprolol Tartrate 25 Mg Tablet) 25 mg PO BID [facility]; Pro tocol Last Admin: 08/23/22 08:43 Dose: 25 mg Documented By: SIA Montelukast Sodium (Montelukast Sodium 10 Mg Tablet) 10 mg PO BEDTIME [facility] Last Admin: 08/22/22 20:24 Dose: 10 mg Documented By: HO.BEIT Morphine Sulfate (Morphine Sulfate 4 Mg/Ml Cartridge) 2 mg IVPUSH Q4H PRN; Protocol PRN Reason: Pain, Severe (Pain Scale 7-10) Last Admin: 08/23/22 02:42 Dose: 2 mg Documented By: BLAKE Omeprazole (Omeprazole 20 Mg Capsule.Dr) 20 mg PO DAILY@0630 [facility] Last Admin: 08/23/22 05:48 Dose: 20 mg Documented By: BLAKE Ondansetron HCl (Ondansetron Hcl 4 Mg/2 Ml Vial) 4 mg IVPUSH Q8H PRN PRN Reason: Nausea and Vomiting Pharmacy Consult (Consult Rx Perform Med Rec) 1 each MISCELLANE ONCE PRN PRN Reason: Consult order Sevelamer Carbonate (Sevelamer Carbonate Tablet 800 Mg Tablet) 800 mg PO TIDWM [facility] Last Admin: 08/23/22 08:44 Dose: 800 mg Documented By: SIA Sodium Chloride (0.9 % Sodium Chloride Flush 3 Ml Syringe) 3 ml IVFLUSH QSHIFT [facility] Last Admin: 08/23/22 08:44 Dose: 3 ml Documented By: SIA Labs 08/23/22 06:05 08/23/22 06:05 Labs: Laboratory Results - last 24 hr 08/22/22 08/22/22 08/22/22 06:26 12:54 16:47 MCV MCH MCHC RDW Plt Count MPV Absolute Nucleated RBC Nucleated RBC % (auto) Anion Gap Estim Creat Clear Calc Estimated GFR POC Glucose 83 188 H Fasting Glucose Calcium Ferritin 2296 H Total Bilirubin Direct Bilirubin AST ALT Alkaline Phosphatase Total Protein Albumin 08/22/22 08/23/22 08/23/22 19:52 06:05 06:05 MCV 99.1 H MCH 31.4 MCHC 31.7 RDW 15.5 Plt Count 105 L D MPV Not Reportable Absolute Nucleated RBC 0.000 Nucleated RBC % (auto) 0.0 Anion Gap 17 Estim Creat Clear Calc 15.8 Estimated GFR 14 POC Glucose 188 H Fasting Glucose 164 H Calcium 7.9 L Ferritin Total Bilirubin 1.0 Direct Bilirubin 0.3 AST 29 ALT 18 Alkaline Phosphatase 371 H Total Protein 5.8 L Albumin 2.9 L 08/23/22 08:09 MCV MCH MCHC RDW Plt Count MPV Absolute Nucleated RBC Nucleated RBC % (auto) Anion Gap Estim Creat Clear Calc Estimated GFR POC Glucose 205 H Fasting Glucose Calcium Ferritin Total Bilirubin Direct Bilirubin AST ALT Alkaline Phosphatase Total Protein Albumin Microbiology Microbiology Results: Microbiology 08/18/22 05:54 Blood Culture - Final Blood - Venous No growth after 5 days. 08/18/22 05:54 Blood Culture - Final Blood - Venous No growth after 5 days. Procedures Date of Service Date of Service: 08/23/22 Progress Note: A&P Assessment and plan (1) S/P laparoscopic cholecystectomy: Status: Acute (2) Acute cholecystitis: Status: Acute (3) ESRD needing dialysis: Status: Acute Plan 76-year-old female patient with multiple medical problems returning with recurrent abdominal pain in the right upper quadrant consistent with acute cholecystitis due to cholelithiasis. She is now POD #2 s/p lap CCY. Doing well post op. Tolerating diet, minimal pain. VSS. Abd exam benign with appropriate post op tenderness, clean incisions. DENISE drain removed. Stable for dc from surgical standpoint. Can f/u in office in [address] Santacruz. Time Spent With Patient Time: Total time managing care of this patient today ____ minutes. Quality Stroke Does the patient have a stroke diagnosis?: No VTE Prior VTE?: No VTE Risk Level:: Medical - moderate - high VTE Device Contraindication: Treatment Not Indicated VTE Drug Contraindication: N/A - Med Ordered
--- NOTE | 2022-08-23 09:19 | MHC.CLN ---
F/U PATIENT WITH DM, ESRD, ON HEMODIALYSIS. DIET CHANGED PER DIALYSIS PARAMETERS: DIABETIC 1800 KCALS, 2 GRAM SODIUM, LOW POTASSIUM, LOW PHOSPHORUS.
--- NOTE | 2022-08-23 09:59 | P.DS_ITS ---
DS: Providers Provider Date of Service: 08/23/22 Date of admission: 08/18/22 10:15 Primary care physician: Lonnie Khan MD Consults: 08/18/22 13:39 Consult to General Surgery Routine Consulting Provider: Lance Santacruz Reason for consultation: Acute cholecystitis Consult to Nephrology Routine Consulting Provider: Evelyn Hays Reason for consultation: Need of dialysis TTS DS: Diagnosis Discharge Diagnosis (1) S/P laparoscopic cholecystectomy: Status: Acute (2) Acute cholecystitis: Status: Acute (3) ESRD needing dialysis: Status: Acute DS: Summary Hospital Course Hospital Course: from initial hpi: Chief Complaint: Right upper quadrant pain A 76 years old lady with PMH of diabetes, AFib, CHF, ESRD on HD among others who presents to the hospital complaining of right upper quadrant pain for 1 day prior to admission.? The patient had the pain started after eating fried pork and has been steady since then with associated chills but no fevers.? She reports having nausea but no vomiting or change in bowel habit.? Denies any chest pain, shortness of breath or urinary symptoms.? She had her dialysis session yesterday as she is on schedule of TTS. CT scan of the abdomen showed distended gallbladder with many gallstones.? Evaluated by surgical team a admitted to the medical service for IV antibiotics and possible surgery. hospital course: Patient was admitted for acute cholecystitis underwent laparoscopic cholecystectomy on 08/21/2022, postoperative course was unremarkable. Patient a lso had acute hypokalemia and acute hyponatremia. Hypokalemia was replaced and hyponatremia was mild. Paroxysmal atrial fibrillation she was continue metoprolol and restarted on apixaban after surgery. For end-stage renal disease she was continued on hemodialysis. For diabetes with hyperglycemia she was treated with insulin. For moderate persistent asthma/COPD overlap she was not in exacerbation and was continued on home inhalers. Patient is feeling better will be discharged home. She will follow up outpatient with surgery. Time Spent with Patient Time attestation: Total time managing care of this patient today ____ minutes. Discharge coordination time: Greater than 30 minutes Quality: Safe Use of Opioids Does Pt have an Active Cancer Diagnosis on the Problem List?: No Quality: Stroke Does the patient have a stroke diagnosis?: No Physical Exam Vital Signs: Vital Signs: Last Vital Signs Temp 97.3 F 08/23/22 08:00 Pulse 67 08/23/22 08:00 Resp 18 08/23/22 08:00 BP 143/76 H 08/23/22 08:00 Pulse Ox 94 08/23/22 08:00 O2 Del Method 08/23/22 08:00 O2 Flow Rate 2 08/21/22 23:44 Oxygen Flow Rate 2 08/18/22 01:33 BMI result Body Mass Index 32.1 Const: General: comfortable, no acute distress and alert Orientation/consciousness: patient oriented x3 Resp: Effort & Inspection: normal respiratory effort GI: Other: DENISE drain with scanty serosanguineous output Inspection: Yes distended (softly) and Yes incision (clean) Palpation (GI): Soft to palpation, nontender, no guarding and not rigid Percussion: Yes tympanic to percussion Skin: General skin exam: no rashes or lesions noted Neuro: General: patient oriented x3 DS: Data Data Completed and Pending Completed studies during hospitalization [Text1]: Pending at discharge 08/21/22 13:11 Surgical [PTH] Routine Procedures Assistance with Respiratory Ventilation, Less than 24 Consecutive Hours, Cont inuous Positive Airway Pressure (11/06/21) Drainage of Left Pleural Cavity, Percutaneous Approach (05/21/21) Excision of Duodenum, Via Natural or Artificial Opening Endoscopic, Diagnostic (07/19/22) Excision of Right Kidney, Percutaneous Approach, Diagnostic (04/20/21) Excision of Sigmoid Colon, Via Natural or Artificial Opening Endoscopic, Diagnostic (07/19/22) Excision of Stomach, Pylorus, Via Natural or Artificial Opening Endoscopic, Diagnostic (07/19/22) Insertion of Infusion Device into Left Brachial Vein, Percutaneous Approach (05/02/21) Insertion of Infusion Device into Right Atrium, Percutaneous Approach (05/02/21) Insertion of Infusion Device into Superior Vena Cava, Percutaneous Approach (05/02/21) Insertion of Tunneled Vascular Access Device into Chest Subcutaneous Tissue and Fascia, Percutaneous Approach (05/02/21) Performance of Urinary Filtration, Intermittent, Less than 6 Hours Per Day (07/19/22) Removal of Infusion Device from Great Vessel, Percutaneous Approach (05/02/21) Transfusion of Nonautologous Red Blood Cells into Peripheral Vein, Percutaneous Approach (05/02/21) Labs on day of discharge: Laboratory Results - last 24 hr 08/22/22 08/22/22 08/22/22 06:26 12:54 16:47 WBC RBC Hgb Hct MCV MCH MCHC RDW Plt Count MPV Absolute Nucleated RBC Nucleated RBC % (auto) Sodium Potassium Chloride Carbon Dioxide Anion Gap BUN Creatinine Estim Creat Clear Calc Estimated GFR POC Glucose 83 188 H Fasting Glucose Calcium Ferritin 2296 H Total Bilirubin Direct Bilirubin AST ALT Alkaline Phosphatase Total Protein Albumin 08/22/22 08/23/22 08/23/22 19:52 06:05 06:05 WBC 8.8 RBC 3.28 L Hgb 10.3 L Hct 32.5 L MCV 99.1 H MCH 31.4 MCHC 31.7 RDW 15.5 Plt Count 105 L D MPV Not Reportable Absolute Nucleated RBC 0.000 Nucleated RBC % (auto) 0.0 Sodium 131 L Potassium 5.2 H Chloride 104 Carbon Dioxide 15 L Anion Gap 17 BUN 14 Creatinine 3.23 H Estim Creat Clear Calc 15.8 Estimated GFR 14 POC Glucose 188 H Fasting Glucose 164 H Calcium 7.9 L Ferritin Total Bilirubin 1.0 Direct Bilirubin 0.3 AST 29 ALT 18 Alkaline Phosphatase 371 H Total Protein 5.8 L Albumin 2.9 L 08/23/22 08:09 WBC RBC Hgb Hct MCV MCH MCHC RDW Plt Count MPV Absolute Nucleated RBC Nucleated RBC % (auto) Sodium Potassium Chloride Carbon Dioxide Anion Gap BUN Creatinine Estim Creat Clear Calc Estimated GFR POC Glucose 205 H Fasting Glucose Calcium Ferritin Total Bilirubin Direct Bilirubin AST ALT Alkaline Phosphatase Total Protein Albumin Discharge Plan Discharge Anticipated Discharge Date/Time: 08/23/22 09:54 Patient Disposition: Home, Self-Care Discharge Diagnosis: cholecystitis Referrals: Lonnie Khan MD [Primary Care Provider] - 1 Week Lance Santacruz MD [Physician] - 1 Week Discharge Medications: New oxycodone 5 mg tablet 5 mg PO Q6H PRN (Reason: moderate pain (scale score 5-6)) Qty: 14 0RF Rx Instructions: Partial Fill upon patient request. Continued (DME) Extra depth orthopedic shoes (1 pair) with customized heat molded multidensity innersoles (3 pair) See Rx Instructions .Route .MEDSUPPLY Qty: 1 0RF Rx Instructions: As directed (DME) syringe with needle 3 mL 27 gauge x 1 1/4 syringe See Rx Instructions .Route Qty: 6 1RF Rx Instructions: As directed once a month (for Vitamin B12 injections) loratadine 10 mg tablet 10 mg PO DAILY 90 Days Qty: 90 3RF Rx Instructions: Take 1 tablet by mouth daily ferrous sulfate 325 mg (65 mg iron) tablet 325 mg PO DAILY Qty: 90 1RF hydralazine 25 mg tablet 25 mg PO TID 90 Days Qty: 270 3RF Protocol: Hold for SBP< HOLD for SBP < : 90 Eliquis 5 mg tablet 5 mg PO BID 90 Days Qty: 180 0RF (DME) blood-glucose meter [FreeStyle Lite Meter] Kit See Rx Instructions .Route Qty: 1 0RF Rx Instructions: As directed atorvastatin 40 mg tablet 40 mg PO BEDTIME Qty: 90 0RF cyanocobalamin (vitamin B-12) 1,000 mcg/mL solution 1,000 mcg IM Q4W Qty: 3 1RF Multaq 400 mg tablet 400 mg PO BID Qty: 60 3RF Rx Instructions: must administer with a meal/food insulin glargine [Lantus Solostar U-100 Insulin] 100 unit/mL (3 mL) insulin pen 8 unit subcut BEDTIME 90 Days Qty: 7.2 3RF Advair HFA 115-21 mcg/actuation HFA aerosol inhaler 2 puff inhalation Q12H 30 Days Qty: 12 11RF metoprolol tartrate 25 mg tablet 25 mg PO BID Qty: 60 5RF Protocol: Hold for SBP/HR < HOLD for SBP < : 90 HOLD for HR < : 60 (DME) lancets [FreeStyle Lancets] 28 gauge misc See Rx Instructions .ROUTE .MEDSUPPLY Qty: 100 12RF Rx Instructions: check BS 3x/day (DME) DIGITAL SCALE See Rx Instructions .Route .MEDSUPPLY Qty: 1 0RF Rx Instructions: As directed pantoprazole 40 mg tablet,delayed release (DR/EC) 40 mg PO DAILY@0630 30 Days Qty: 30 5RF gabapentin 100 mg capsule 100 mg PO BID 30 Days Qty: 60 1RF (DME) FreeStyle Lite Strips Strip See Rx Instructions .ROUTE .COMPLEX Qty: 100 12RF Dose Instruction: USE DIRECTED ONCE A DAY Rx Instructions: USE DIRECTED ONCE A DAY montelukast 10 mg tablet 10 mg PO BEDTIME Qty: 90 0RF levothyroxine 25 mcg tablet 25 mcg PO DAILY@0600 Qty: 90 0RF insulin lispro 100 unit/mL insulin pen 2 - 10 unit subcut QIDACHS Rx Instructions: PER SLIDING SCALE acetaminophen 325 mg Tablet 325 mg PO Q6H PRN (Reason: Mild Pain (Scale Score 1-4)) lidocaine 5 % adhesive patch,medicated 1 patch TOPICAL DAILY Protocol: Apply to: Apply to: NECK AND LEGS Rx Instructions: leave on most painful area for up to 12 hrs sevelamer carbonate 800 mg tablet 800 mg PO TIDWM Rx Instructions: must administer with a meal/food calcitriol 0.25 mcg Capsule 0.5 mcg PO 3XW Rx Instructions: administer after dialysis on dialysis days aspirin 81 mg Tablet,Delayed Release (Dr/Ec) 81 mg PO DAILY docusate sodium 100 mg capsule 1 cap PO BID (DME) TRANSPORT WHEELCHAIR See Rx Instructions .Route .MEDSUPPLY Qty: 1 0RF Rx Instructions: As directed (DME) blood pressure monitor Kit See Rx Instructions .Route Qty: 1 0RF Rx Instructions: As directed (DME) pen needle, diabetic [BD Sandra 2nd Gen Pen Needle] 32 gauge x 5/32 needle See Rx Instructions .Route Qty: 50 0RF Rx Instructions: As directed (DME) blood-glucose meter [FreeStyle Lite Meter] Kit See Rx Instructions .Route Qty: 1 0RF Rx Instructions: As directed 3-4 times a day albuterol sulfate 90 mcg/actuation HFA aerosol inhaler 2 inh inhalation Q6H PRN (Reason: shortness of breath or wheezing) 30 Days Qty: 18 12RF Discharge Orders: Discharge Order (Routine); Ordered 08/23/22 Ordered By: Johann Lopez Diet: Advance to usual diet Activity on Discharge: As tolerated Stand Alone Forms: Patient Portal Discharge page Activity Restrictions/Additional Instructions: If the incision area is tender, you may apply an ice pack for short intervals (No more than 20 minutes on, followed by at least 20 minutes off). Do not apply heat. Do not use creams, lotions, or topical antibiotics unless instructed to do so by your surgeon. These can cause infection or allergic reaction. Ok to shower. You have steri strips (small white cloth strips) covering your incision- these will fall off ~1 week. No heavy lifting (>10lbs) or strenuous activity! Follow up in office with Dr. Santacruz in 1 week. ([phone]) Call Your Doctor If: -Your temperature exceeds 101.5? F -You experience excessive pain or swelling -You have an unexpected reaction to medication -You have excessive bleeding -You experience continued vomiting/nausea -Your incision begins to separate -Your incision shows signs of infection such as increased redness, swelling, excessive pain, drainage (light blood or clear fluid is normal) or heat Care Plan Goals: recovery Health Concerns: cholecystitis Plan of Treatment: pain control, follow up surgery Assessment: see above
[2022-08-23 11:32] LABS: Glucose, Whole Blood 203 mg/dL (60-115)
--- NOTE | 2022-08-23 15:16 | MHC.CM.PN ---
Addendum entered by Maryana Romero RN 08/23/22 16:06: NO BED OFFER OF THIS NOTE. COVERING CM TO FOLLOW UP ON FRIDAY, POSSIBLE HOME WITH [facility] FRIDAY? PATIENT NEEDS INTERPETER Original Note: PER CONVERSATION WITH SONELIO (IN ROOM) AND PATIENT, SNF REFERRALS PLACED. CURRENTLY NO BED OFFERS. PLAN MAY HAVE TO BE HOME WITH [facility] SERVICES AND HD TRANSPORT RESUMPTION.
[2022-08-23 16:14] LABS: Glucose, Whole Blood 177 mg/dL (60-115)
--- NOTE | 2022-08-23 16:21 | P.PNIM_ITS ---
Subjective Subjective Date of Service: 08/23/22 Interval History: pain imprvoed Physical Exam Vital Signs: Vital Signs: Last Vital Signs Temp 97.8 F 08/23/22 15:37 Pulse 61 08/23/22 15:37 Resp 17 08/23/22 15:37 BP 148/65 H 08/23/22 15:37 Pulse Ox 98 08/23/22 15:37 O2 Del Method 08/23/22 15:37 O2 Flow Rate 2 08/21/22 23:44 Oxygen Flow Rate 2 08/18/22 01:33 BMI result Body Mass Index 32.1 Const: General: comfortable, no acute distress and alert Orientation/consciousness: patient oriented x3 Resp: Effort & Inspection: normal respiratory effort GI: Other: DENISE drain with scanty serosanguineous output Inspection: Yes distended (softly) and Yes incision (clean) Palpation (GI): Soft to palpation, nontender, no guarding and not rigid Percussion: Yes tympanic to percussion Skin: General skin exam: no rashes or lesions noted Neuro: General: patient oriented x3 Objective Data Active Medications Acetaminophen (Acetaminophen 325 Mg Tablet) 650 mg PO Q6H PRN PRN Reason: Pain, Mild (Pain Scale 1-3) Last Admin: 08/22/22 15:09 Dose: 650 mg Documented By: SIA Albuterol Sulfate (Albuterol Sulfate 90 Mcg 8 Gm Inhaler) 2 puff INHALE Q6H PRN PRN Reason: shortness of breath or wheezing Last Admin: 08/22/22 20:00 Dose: 2 puff Documented By: FARHAT Apixaban (Apixaban 5 Mg Tablet) 5 mg PO BID [facility] Last Admin: 08/23/22 08:43 Dose: 5 mg Documented By: SIA Calcitriol (Calcitriol 0.25 Mcg Capsule) 0.5 mcg PO @1999 [facility] Last Admin: 08/21/22 22:28 Dose: Not Given Documented By: ANITRA Non-Admin Reason: no dialysis today Cyanocobalamin (Cyanocobalamin (Vitamin B-12) 1,000 Mcg/Ml Vial) 1,000 mcg IM Q28D [facility] Last Admin: 08/18/22 16:06 Dose: 1,000 mcg Documented By: ANITRA Docusate Sodium (Docusate Sodium 100 Mg Capsule) 100 mg PO BID [facility] Last Admin: 08/23/22 08:45 Dose: 100 mg Documented By: SIA Dronedarone (Dronedarone Hcl 400 Mg Tablet) 400 mg PO BID [facility] Last Admin: 08/23/22 08:43 Dose: 400 mg Documented By: SIA Fluticasone/Vilanterol (Fluticasone/Vilanterol 100/25 Blst.W.Dev) 1 puff INHALE RDAILY [facility] Last Admin: 08/23/22 07:58 Dose: Not Given Documented By: NADEEN Non-Admin Reason: Med Not Available Gabapentin (Gabapentin 100 Mg Capsule) 100 mg PO BID [facility] Last Admin: 08/23/22 08:44 Dose: 100 mg Documented By: SIA Hydralazine HCl (Hydralazine Hcl 25 Mg Tablet) 25 mg PO TID [facility]; Protocol Last Admin: 08/23/22 14:41 Dose: 25 mg Documented By: SIA Promethazine HCl 6.25 mg/ (Sodium Chloride) 50.25 mls @ 201 mls/hr IV ONCE PRN PRN Reason: Nausea and Vomiting Insulin Human Lispro (Insulin Lispro 100 Unit/Ml 3 Ml Vial) 0 unit SUBCUT QIDACHS [facility]; Protocol Last Admin: 08/23/22 11:49 Dose: 2 unit Documented By: SIA Levothyroxine Sodium (Levothyroxine Sodium 25 Mcg Tablet) 25 mcg PO DAILY@0600 [facility] Last Admin: 08/23/22 05:48 Dose: 25 mcg Documented By: BLAKE Loratadine (Loratadine 10 Mg Tablet) 10 mg PO DAILY [facility] Last Admin: 08/23/22 08:44 Dose: 10 mg Documented By: SIA Metoprolol Tartrate (Metoprolol Tartrate 25 Mg Tablet) 25 mg PO BID [facility]; Protocol Last Admin: 08/23/22 08:43 Dose: 25 mg Documented By: SIA Montelukast Sodium (Montelukast Sodium 10 Mg Tablet) 10 mg PO BEDTIME [facility] Last Admin: 08/22/22 20:24 Dose: 10 mg Documented By: ANITRA Omeprazole (Omeprazole 20 Mg Capsule.) 20 mg PO DAILY@0630 [facility] Last Admin: 08/23/22 05:48 Dose: 20 mg Documented By: BLAKE Ondansetron HCl (Ondansetron Hcl 4 Mg/2 Ml Vial) 4 mg IVPUSH Q8H PRN PRN Reason: Nausea and Vomiting Pharmacy Consult (Consult Rx Perform Med Rec) 1 each MISCELLANE ONCE PRN PRN Reason: Consult order Sevelamer Carbonate (Sevelamer Carbonate Tablet 800 Mg Tablet) 800 mg PO TIDWM [facility] Last Admin: 08/23/22 11:50 Dose: 800 mg Documented By: SIA Sodium Chloride (0.9 % Sodium Chloride Flush 3 Ml Syringe) 3 ml IVFLUSH QSHIFT [facility] Last Admin: 08/23/22 15:27 Dose: 3 ml Documented By: BEIT Labs 08/23/22 06:05 08/23/22 06:05 Labs: Laboratory Results - last 24 hr 08/22/22 08/22/22 08/23/22 16:47 19:52 06:05 MCV 99.1 H MCH 31.4 MCHC 31.7 RDW 15.5 Plt Count 105 L D MPV Not Reportable Absolute Nucleated RBC 0.000 Nucleated RBC % (auto) 0.0 Anion Gap Estim Creat Clear Calc Estimated GFR POC Glucose 188 H 188 H Fasting Glucose Calcium Total Bilirubin Direct Bilirubin AST ALT Alkaline Phosphatase Total Protein Albumin 08/23/22 08/23/22 08/23/22 06:05 08:09 11:28 MCV MCH MCHC RDW Plt Count MPV Absolute Nucleated RBC Nucleated RBC % (auto) Anion Gap 17 Estim Creat Clear Calc 15.8 Estimated GFR 14 POC Glucose 205 H 203 H Fasting Glucose 164 H Calcium 7.9 L Total Bilirubin 1.0 Direct Bilirubin 0.3 AST 29 ALT 18 Alkaline Phosphatase 371 H Total Protein 5.8 L Albumin 2.9 L 08/23/22 16:07 MCV MCH MCHC RDW Plt Count MPV Absolute Nucleated RBC Nucleated RBC % (auto) Anion Gap Estim Creat Clear Calc Estimated GFR POC Glucose 177 H Fasting Glucose Calcium Total Bilirubin Direct Bilirubin AST ALT Alkaline Phosphatase Total Protein Albumin Microbiology Microbiology Results: Microbiology 08/18/22 05:54 Blood Culture - Final Blood - Venous No growth after 5 days. 08/18/22 05:54 Blood Culture - Final Blood - Venous No growth after 5 days. Assessment and Plan (1) ESRD needing dialysis: Status: Acute (2) Acute cholecystitis: Status: Acute (3) Elevated transaminase level: Status: Acute (4) Hypokalemia: Status: Acute Plan A 76 years old lady with PMH of diabetes, pAFib, chronic diastolic CHF, ESRD on HD, obesity, PUD, copd/mod persistent asthma, among others who presented to the hospital complaining of right upper quadrant pain for 1 day prior to admission. Acute cholecystitis POD 2 lap choly acute hypokalemia resolved Acute hyponatremia mild, monitor Paroxysmal AFib Continue metoprolol restart eliquis End stage renal disease on dialysis Patient receives dialysis on [facility] Nephrology following Insulin-dependent diabetes mellitus with hyperglycemia Hold home meds SSI, Lantus moderate persistent Asthma/COPD overlap syndrome Not in acute exacerbation Continue home inhalers DVT Prophylaxis: eliquis reason for continued hospitalization:safe dispo Time Spent With Patient Time: Total time managing care of this patient today ____ minutes. Quality Stroke Does the patient have a stroke diagnosis?: No VTE Prior VTE?: No VTE Risk Level:: Medical - moderate - high VTE Device Contraindication: Treatment Not Indicated VTE Drug Contraindication: N/A - Med Ordered
--- NOTE | 2022-08-23 17:29 | PM.PNNEP ---
Subjective Subjective Date of Service: 08/23/22 Interval history: Seen and examined, events noted Physical Exam Vital Signs: Vital Signs: Last Vital Signs Temp 97.8 F 08/23/22 15:37 Pulse 61 08/23/22 15:37 Resp 17 08/23/22 15:37 BP 148/65 H 08/23/22 15:37 Pulse Ox 98 08/23/22 15:37 O2 Del Method 08/23/22 15:37 O2 Flow Rate 2 08/21/22 23:44 Oxygen Flow Rate 2 08/18/22 01:33 BMI result Body Mass Index 32.1 Const: Other: Constitutional : Awake, interactive, not in distress Neck : Normal inspection, Supple Cardiovascular : RRR, no JVP, no lower extremity edema Respiratory : fair bilateral air entry, no crackles, wheezes or rhonchi Gastrointestinal: soft, lax, Normal bowel sounds, minimal RUQ tenderness with negative marshall sign Skin : Warm, Dry Neurological : Alert & oriented x3, No focal deficit General: cooperative and no acute distress Nutritional Appearance: well nourished Orientation/consciousness: patient oriented x3 Limitations: no limitations and language barrier HEENT: Head: Yes normocephalic and Yes atraumatic Ears: hearing grossly normal bilaterally Eyes: Sclerae: sclerae normal Resp: Effort & Inspection: normal respiratory effort, no audible wheezes, no cough and no respiratory distress Cardio: Jugular venous distension: no JVD GI: Inspection: Yes normal to inspection Palpation (GI): Soft to palpation, Tenderness to palpation present (GI) in the RUQ and Marshall's sign positive, no guarding, not rigid and hepatosplenomegaly present Skin: Other: Warm, dry, no rash General skin exam: no rashes or lesions noted Neuro: General: patient oriented x3 Extrem: General: Yes normal to inspection and Yes no clubbing, cyanosis or edema Objective Data Labs 08/23/22 06:05 08/23/22 06:05 Labs: Laboratory Results - last 24 hr 08/22/22 08/23/22 08/23/22 19:52 06:05 06:05 WBC 8.8 RBC 3.28 L Hgb 10.3 L Hct 32.5 L MCV 99.1 H MCH 31.4 MCHC 31.7 RDW 15.5 Plt Count 105 L D MPV Not Reportable Absolute Nucleated RBC 0.000 Nucleated RBC % (auto) 0.0 Sodium 131 L Potassium 5.2 H Chloride 104 Carbon Dioxide 15 L Anion Gap 17 BUN 14 Creatinine 3.23 H Estim Creat Clear Calc 15.8 Estimated GFR 14 POC Glucose 188 H Fasting Glucose 164 H Calcium 7.9 L Total Bilirubin 1.0 Direct Bilirubin 0.3 AST 29 ALT 18 Alkaline Phosphatase 371 H Total Protein 5.8 L Albumin 2.9 L 08/23/22 08/23/22 08/23/22 08:09 11:28 16:07 WBC RBC Hgb Hct MCV MCH MCHC RDW Plt Count MPV Absolute Nucleated RBC Nucleated RBC % (auto) Sodium Potassium Chloride Carbon Dioxide Anion Gap BUN Creatinine Estim Creat Clear Calc Estimated GFR POC Glucose 205 H 203 H 177 H Fasting Glucose Calcium Total Bilirubin Direct Bilirubin AST ALT Alkaline Phosphatase Total Protein Albumin Microbiology Microbiology Results: Microbiology 08/18/22 05:54 Blood - Venous Blood Culture - Final No growth after 5 days. 08/18/22 05:54 Blood - Venous Blood Culture - Final No growth after 5 days. Procedures Date of Service Date of Service: 08/23/22 Assessment & Plan Assessment and plan (1) ESRD needing dialysis: Status: Acute Plan -ESRD TTS HD - Symptomatic Gstones: s/p surg 08/21 - Anemia: track Hb a REC: cont HD 3x/wk on TTS schedule; EPO as orderd; d/c planning--I will arrange outpt HD Will folow with team Time Spent With Patient Time: Total time managing care of this patient today ____ minutes. Progress Note: Quality Stroke Does the patient have a stroke diagnosis?: No
[2022-08-23] MEDS: Montelukast Sodium 10 MG TABLET PO (21:05)
[2022-08-23 21:25] LABS: Glucose, Whole Blood 163 mg/dL (60-115)
--- NOTE | 2022-08-23 21:40 | PC.NURSE ---
Held metroprolol HR 59
[2022-08-24] VITALS (7 sets, daily range): BP systolic 99–140; BP diastolic 55–74; PULSE 61–72; RESP 16–18; TEMP 36.1–36.8; O2SAT 96–99
[2022-08-24] MEDS: Omeprazole 20 MG CAPSULE.DR PO (05:43)
[2022-08-24] MEDS: Levothyroxine Sodium 25 MCG TABLET PO (05:43)
[2022-08-24] MEDS: Fluticasone/Vilanterol 100/25 BLST.W.DEV 1 PUFF INHALE (07:56)
[2022-08-24 07:58] LABS: Glucose, Whole Blood 127 mg/dL (60-115)
[2022-08-24] MEDS: Gabapentin 100 MG CAPSULE PO ×2 (08:43→22:11)
[2022-08-24] MEDS: Docusate Sodium 100 MG CAPSULE PO ×2 (08:43→21:04)
[2022-08-24] MEDS: Loratadine 10 MG TABLET PO (08:43)
[2022-08-24] MEDS: Sevelamer Carbonate Tablet 800 MG TABLET PO ×3 (08:43→17:29)
[2022-08-24] MEDS: Metoprolol Tartrate 25 MG TABLET PO ×2 (08:43→21:03)
[2022-08-24] MEDS: hydrALAZINE HCl 25 MG TABLET PO ×3 (08:43→21:05)
[2022-08-24] MEDS: Dronedarone HCl 400 MG TABLET PO ×2 (08:44→21:02)
[2022-08-24] MEDS: Apixaban 5 MG TABLET PO ×2 (08:44→21:04)
[2022-08-24] MEDS: 0.9 % Sodium Chloride Flush 3 ML SYRINGE IVFLUSH ×2 (08:44→15:02)
--- NOTE | 2022-08-24 11:48 | P.PNIM_ITS ---
Subjective Subjective Date of Service: 08/24/22 Interval History: pain imprvoed Physical Exam Vital Signs: Vital Signs: Last Vital Signs Temp 97 F 08/24/22 07:31 Pulse 68 08/24/22 07:58 Resp 18 08/24/22 07:58 BP 134/64 08/24/22 07:31 Pulse Ox 96 08/24/22 07:31 O2 Del Method 08/24/22 07:31 O2 Flow Rate 2 08/21/22 23:44 Oxygen Flow Rate 2 08/18/22 01:33 BMI result Body Mass Index 32.1 Objective Data Active Medications Acetaminophen (Acetaminophen 325 Mg Tablet) 650 mg PO Q6H PRN PRN Reason: Pain, Mild (Pain Scale 1-3) Last Admin: 08/22/22 15:09 Dose: 650 mg Documented By: SIA Albuterol Sulfate (Albuterol Sulfate 90 Mcg 8 Gm Inhaler) 2 puff INHALE Q6H PRN PRN Reason: shortness of breath or wheezing Last Admin: 08/22/22 20:00 Dose: 2 puff Documented By: FARHAT Apixaban (Apixaban 5 Mg Tablet) 5 mg PO BID [facility] Last Admin: 08/24/22 08:44 Dose: 5 mg Documented By: PORFIRIO Calcitriol (Calcitriol 0.25 Mcg Capsule) 0.5 mcg PO [facility] Last Admin: 08/21/22 22:28 Dose: Not Given Documented By: ANITRA Non-Admin Reason: no dialysis today Cyanocobalamin (Cyanocobalamin (Vitamin B-12) 1,000 Mcg/Ml Vial) 1,000 mcg IM Q28D [facility] Last Admin: 08/18/22 16:06 Dose: 1,000 mcg Documented By: ANITRA Docusate Sodium (Docusate Sodium 100 Mg Capsule) 100 mg PO BID [facility] Last Admin: 08/24/22 08:43 Dose: 100 mg Documented By: PORFIRIO Dronedarone (Dronedarone Hcl 400 Mg Tablet) 400 mg PO BID [facility] Last Admin: 08/24/22 08:44 Dose: 400 mg Documented By: PORFIRIO Fluticasone/Vilanterol (Fluticasone/Vilanterol 100/25 Blst.W.Dev) 1 puff INHALE RDAILY [facility] Last Admin: 08/24/22 07:56 Dose: 1 puff Documented By: JIMI Gabapentin (Gabapentin 100 Mg Capsule) 100 mg PO BID [facility] Last Admin: 08/24/22 08:43 Dose: 100 mg Documented By: PORFIRIO Hydralazine HCl (Hydralazine Hcl 25 Mg Tablet) 25 mg PO TID [facility]; Protocol Last Admin: 08/24/22 08:43 Dose: 25 mg Documented By: PORFIRIO Promethazine HCl 6.25 mg/ (Sodium Chloride) 50.25 mls @ 201 mls/hr IV ONCE PRN PRN Reason: Nausea and Vomiting Insulin Human Lispro (Insulin Lispro 100 Unit/Ml 3 Ml Vial) 0 unit SUBCUT QIDACHS [facility]; Protocol Last Admin: 08/24/22 08:36 Dose: Not Given Documented By: PORFIRIO Non-Admin Reason: No Insulin Coverage Levothyroxine Sodium (Levothyroxine Sodium 25 Mcg Tablet) 25 mcg PO DAILY@0600 [facility] Last Admin: 08/24/22 05:43 Dose: 25 mcg Documented By: DEMARCUS Loratadine (Loratadine 10 Mg Tablet) 10 mg PO DAILY [facility] Last Admin: 08/24/22 08:43 Dose: 10 mg Documented By: PORFIRIO Metoprolol Tartrate (Metoprolol Tartrate 25 Mg Tablet) 25 mg PO BID [facility]; Protocol Last Admin: 08/24/22 08:43 Dose: 25 mg Documented By: PORFIRIO Montelukast Sodium (Montelukast Sodium 10 Mg Tablet) 10 mg PO BEDTIME [facility] Last Admin: 08/23/22 21:05 Dose: 10 mg Documented By: ANITRA Omeprazole (Omeprazole 20 Mg Capsule.Dr) 20 mg PO DAILY@0630 [facility] Last Admin: 08/24/22 05:43 Dose: 20 mg Documented By: DEMARCUS Ondansetron HCl (Ondansetron Hcl 4 Mg/2 Ml Vial) 4 mg IVPUSH Q8H PRN PRN Reason: Nausea and Vomiting Pharmacy Consult (Consult Rx Perform Med Rec) 1 each MISCELLANE ONCE PRN PRN Reason: Consult order Sevelamer Carbonate (Sevelamer Carbonate Tablet 800 Mg Tablet) 800 mg PO TIDWM [facility] Last Admin: 08/24/22 08:43 Dose: 800 mg Documented By: PORFIRIO Sodium Chloride (0.9 % Sodium Chloride Flush 3 Ml Syringe) 3 ml IVFLUSH QSHIFT [facility] Last Admin: 08/24/22 08:44 Dose: 3 ml Documented By: PORFIRIO Labs 08/23/22 06:05 08/23/22 06:05 Labs: Laboratory Results - last 24 hr 08/23/22 08/23/22 08/24/22 16:07 21:21 07:28 POC Glucose 177 H 163 H 127 H Microbiology Microbiology Results: Microbiology 08/18/22 05:54 Blood Culture - Final Blood - Venous No growth after 5 days. 08/18/22 05:54 Blood Culture - Final Blood - Venous No growth after 5 days. Assessment and Plan (1) ESRD needing dialysis: Status: Acute (2) Acute cholecystitis: Status: Acute (3) Elevated transaminase level: Status: Acute (4) Hypokalemia: Status: Acute Plan A 76 years old lady with PMH of diabetes, pAFib, chronic diastolic CHF, ESRD on HD, obesity, PUD, copd/mod persistent asthma, among others who presented to the hospital complaining of right upper quadrant pain for 1 day prior to admission. Acute cholecystitis POD 3 lap choly acute hypokalemia resolved Acute hyponatremia mild Paroxysmal AFib Continue metoprolol restart eliquis End stage renal disease on dialysis Patient receives dialysis on TTS Nephrology following Insulin-dependent diabetes mellitus with hyperglycemia Hold home meds SSI, Lantus moderate persistent Asthma/COPD overlap syndrome Not in acute exacerbation Continue home inhalers DVT Prophylaxis: eliquis reason for continued hospitalization:safe dispo Time Spent With Patient Time: Total time managing care of this patient today ____ minutes. Quality Stroke Does the patient have a stroke diagnosis?: No VTE Prior VTE?: No VTE Risk Level:: Medical - moderate - high VTE Device Contraindication: Treatment Not Indicated VTE Drug Contraindication: N/A - Med Ordered
--- NOTE | 2022-08-24 13:41 | PM.PNNEP ---
Subjective Subjective Date of Service: 08/24/22 Interval history: seen and examined, events noted currently on HD Physical Exam Vital Signs: Vital Signs: Last Vital Signs Temp 97 F 08/24/22 07:31 Pulse 68 08/24/22 07:58 Resp 18 08/24/22 07:58 BP 134/64 08/24/22 07:31 Pulse Ox 96 08/24/22 07:31 O2 Del Method 08/24/22 07:31 O2 Flow Rate 2 08/21/22 23:44 Oxygen Flow Rate 2 08/18/22 01:33 BMI result Body Mass Index 32.1 Const: Other: Constitutional : Awake, interactive, not in distress Neck : Normal inspection, Supple Cardiovascular : RRR, no JVP, no lower extremity edema Respiratory : fair bilateral air entry, no crackles, wheezes or rhonchi Gastrointestinal: soft, lax, Normal bowel sounds, minimal RUQ tenderness with negative marshall sign Skin : Warm, Dry Neurological : Alert & oriented x3, No focal deficit General: cooperative and no acute distress Nutritional Appearance: well nourished Orientation/consciousness: patient oriented x3 Limitations: no limitations and language barrier HEENT: Head: Yes normocephalic and Yes atraumatic Ears: hearing grossly normal bilaterally Eyes: Sclerae: sclerae normal Resp: Effort & Inspection: normal respiratory effort, no audible wheezes, no cough and no respiratory distress Cardio: Jugular venous distension: no JVD GI: Inspection: Yes normal to inspection Palpation (GI): Soft to palpation, Tenderness to palpation present (GI) in the RUQ and Marshall's sign positive, no guarding, not rigid and hepatosplenomegaly present Skin: Other: Warm, dry, no rash General skin exam: no rashes or lesions noted Neuro: General: patient oriented x3 Extrem: General: Yes normal to inspection and Yes no clubbing, cyanosis or edema Objective Data Labs 08/23/22 06:05 08/23/22 06:05 Labs: Laboratory Results - last 24 hr 08/23/22 08/23/22 08/24/22 16:07 21:21 07:28 POC Glucose 177 H 163 H 127 H Microbiology Microbiology Results: Microbiology 08/18/22 05:54 Blood - Venous Blood Culture - Final No growth after 5 days. 08/18/22 05:54 Blood - Venous Blood Culture - Final No growth after 5 days. Procedures Date of Service Date of Service: 08/24/22 Assessment & Plan Assessment and plan (1) ESRD needing dialysis: Status: Acute Plan -ESRD TTS HD - Symptomatic Gstones: s/p surg 08/21 - Anemia: track Hb REC: cont HD 3x/wk on TTS schedule; EPO as orderd; d/c planning--I will arrange outpt HD Will folow with team Time Spent With Patient Time: Total time managing care of this patient today ____ minutes. Progress Note: Quality Stroke Does the patient have a stroke diagnosis?: No
--- NOTE | 2022-08-24 13:54 | MHC.CM.PN ---
CM MET WITH PTS SON WHO REPORTS HE CANNOT TAKE PT HOME BECAUSE ALTHOUGH SHE WILL BE ABLE TO GET INTO THE HOME, SHE WILL NOT BE ABLE TO GET BACK OUT FOR HD. HE REPORTS [facility] HAS BEEN SAYING THEY WILL HAVE A RAMP INSTALLED FOR A LONG TIME BUT STILL HAVE NOT STARTED IT. HE IS AWARE PTS REFERRAL WAS EXPANDED AND SHE MAY NOT BE LOCAL
[2022-08-24 14:13] LABS: Glucose, Whole Blood 134 mg/dL (60-115)
[2022-08-24 16:32] LABS: Glucose, Whole Blood 189 mg/dL (60-115)
[2022-08-24] MEDS: Insulin Lispro 100 UNIT/ML 3 ML VIAL SUBCUT ×2 (17:30→21:01)
[2022-08-24 20:23] LABS: Glucose, Whole Blood 206 mg/dL (60-115)
[2022-08-24] MEDS: Montelukast Sodium 10 MG TABLET PO (21:03)
[2022-08-24] MEDS: calcitrioL 0.25 MCG CAPSULE 0.5 MCG PO (21:07)
[2022-08-25] VITALS (7 sets, daily range): BP systolic 141–191; BP diastolic 63–75; PULSE 65–74; RESP 16–18; TEMP 36.2–36.9; O2SAT 96–98
[2022-08-25] MEDS: 0.9 % Sodium Chloride Flush 3 ML SYRINGE IVFLUSH ×3 (00:11→15:38)
[2022-08-25] MEDS: Levothyroxine Sodium 25 MCG TABLET PO (05:10)
[2022-08-25] MEDS: Omeprazole 20 MG CAPSULE.DR PO (05:10)
[2022-08-25 07:48] LABS: Glucose, Whole Blood 96 mg/dL (60-115)
[2022-08-25] MEDS: Fluticasone/Vilanterol 100/25 BLST.W.DEV 1 PUFF INHALE (08:27)
[2022-08-25] MEDS: Metoprolol Tartrate 25 MG TABLET PO ×2 (08:40→21:17)
[2022-08-25] MEDS: hydrALAZINE HCl 25 MG TABLET PO ×3 (08:40→21:16)
[2022-08-25] MEDS: Loratadine 10 MG TABLET PO (08:41)
[2022-08-25] MEDS: Docusate Sodium 100 MG CAPSULE PO ×2 (08:41→21:15)
[2022-08-25] MEDS: Sevelamer Carbonate Tablet 800 MG TABLET PO ×3 (08:41→17:36)
[2022-08-25] MEDS: Dronedarone HCl 400 MG TABLET PO ×2 (08:41→21:16)
[2022-08-25] MEDS: Gabapentin 100 MG CAPSULE PO ×2 (08:41→21:16)
[2022-08-25] MEDS: Apixaban 5 MG TABLET PO ×2 (08:41→21:15)
--- NOTE | 2022-08-25 08:51 | P.PNIM_ITS ---
Subjective Subjective Date of Service: 08/25/22 Interval History: pain imprvoed Physical Exam Vital Signs: Vital Signs: Last Vital Signs Temp 97.1 F 08/25/22 07:36 Pulse 74 08/25/22 08:29 Resp 18 08/25/22 08:29 BP 191/75 H 08/25/22 07:36 Pulse Ox 97 08/25/22 07:36 O2 Del Method 08/25/22 07:36 O2 Flow Rate 2 08/21/22 23:44 Oxygen Flow Rate 2 08/18/22 01:33 BMI result Body Mass Index 32.1 Const: Other: Constitutional : Awake, interactive, not in distress Neck : Normal inspection, Supple Cardiovascular : RRR, no JVP, no lower extremity edema Respiratory : fair bilateral air entry, no crackles, wheezes or rhonchi Gastrointestinal: soft, lax, Normal bowel sounds, minimal RUQ tenderness with negative marshall sign Skin : Warm, Dry Neurological : Alert & oriented x3, No focal deficit General: cooperative and no acute distress Nutritional Appearance: well nourished Orientation/consciousness: patient oriented x3 Limitations: no limitations and language barrier HEENT: Head: Yes normocephalic and Yes atraumatic Ears: hearing grossly normal bilaterally Eyes: Sclerae: sclerae normal Resp: Effort & Inspection: normal respiratory effort, no audible wheezes, no cough and no respiratory distress Cardio: Jugular venous distension: no JVD GI: Inspection: Yes normal to inspection Palpation (GI): Soft to palpation, Tenderness to palpation present (GI) in the RUQ and Marshall's sign positive, no guarding, not rigid and hepatosplenomegaly present Skin: Other: Warm, dry, no rash General skin exam: no rashes or lesions noted Neuro: General: patient oriented x3 Extrem: General: Yes normal to inspection and Yes no clubbing, cyanosis or edema Objective Data Active Medications Acetaminophen (Acetaminophen 325 Mg Tablet) 650 mg PO Q6H PRN PRN Reason: Pain, Mild (Pain Scale 1-3) Last Admin: 08/22/22 15:09 Dose: 650 mg Documented By: SIA Albuterol Sulfate (Albuterol Sulfate 90 Mcg 8 Gm Inhaler) 2 puff INHALE Q6H PRN PRN Reason: shortness of breath or wheezing Last Admin: 08/22/22 20:00 Dose: 2 puff Documented By: FARHAT Apixaban (Apixaban 5 Mg Tablet) 5 mg PO BID [facility] Last Admin: 08/25/22 08:41 Dose: 5 mg Documented By: PORFIRIO Calcitriol (Calcitriol 0.25 Mcg Capsule) 0.5 mcg PO TuWeSa@2000 [facility] Last Admin: 08/24/22 21:07 Dose: 0.5 mcg Documented By: CINTHYA Cyanocobalamin (Cyanocobalamin (Vitamin B-12) 1,000 Mcg/Ml Vial) 1,000 mcg IM Q28D [facility] Last Admin: 08/18/22 16:06 Dose: 1,000 mcg Documented By: ANITRA Docusate Sodium (Docusate Sodium 100 Mg Capsule) 100 mg PO BID [facility] Last Admin: 08/25/22 08:41 Dose: 100 mg Documented By: PORFIRIO Dronedarone (Dronedarone Hcl 400 Mg Tablet) 400 mg PO BID [facility] Last Admin: 08/25/22 08:41 Dose: 400 mg Documented By: PORFIRIO Fluticasone/Vilanterol (Fluticasone/Vilanterol 100/25 Blst.W.Dev) 1 puff INHALE RDAILY [facility] Last Admin: 08/25/22 08:27 Dose: 1 puff Documented By: LAURA Gabapentin (Gabapentin 100 Mg Capsule) 100 mg PO BID [facility] Last Admin: 08/25/22 08:41 Dose: 100 mg Documented By: PORFIRIO Hydralazine HCl (Hydralazine Hcl 25 Mg Tablet) 25 mg PO TID [facility]; Protocol Last Admin: 08/25/22 08:40 Dose: 25 mg Documented By: PORFIRIO Promethazine HCl 6.25 mg/ (Sodium Chloride) 50.25 mls @ 201 mls/hr IV ONCE PRN PRN Reason: Nausea and Vomiting Insulin Human Lispro (Insulin Lispro 100 Unit/Ml 3 Ml Vial) 0 unit SUBCUT QIDACHS [facility]; Protocol Last Admin: 08/25/22 08:31 Dose: Not Given Documented By: PORFIRIO Non-Admin Reason: No Insulin Coverage Levothyroxine Sodium (Levothyroxine Sodium 25 Mcg Tablet) 25 mcg PO DAILY@0600 [facility] Last Admin: 08/25/22 05:10 Dose: 25 mcg Documented By: CINTHYA Loratadine (Loratadine 10 Mg Tablet) 10 mg PO DAILY [facility] Last Admin: 08/25/22 08:41 Dose: 10 mg Documented By: PORFIRIO Metoprolol Tartrate (Metoprolol Tartrate 25 Mg Tablet) 25 mg PO BID [facility]; Protocol Last Admin: 08/25/22 08:40 Dose: 25 mg Documented By: PORFIRIO Montelukast Sodium (Montelukast Sodium 10 Mg Tablet) 10 mg PO BEDTIME [facility] Last Admin: 08/24/22 21:03 Dose: 10 mg Documented By: CINTHYA Omeprazole (Omeprazole 20 Mg Capsule.Dr) 20 mg PO DAILY@0630 [facility] Last Admin: 08/25/22 05:10 Dose: 20 mg Documented By: CINTHYA Ondansetron HCl (Ondansetron Hcl 4 Mg/2 Ml Vial) 4 mg IVPUSH Q8H PRN PRN Reason: Nausea and Vomiting Pharmacy Consult (Consult Rx Perform Med Rec) 1 each MISCELLANE ONCE PRN PRN Reason: Consult order Sevelamer Carbonate (Sevelamer Carbonate Tablet 800 Mg Tablet) 800 mg PO TIDWM [facility] Last Admin: 08/25/22 08:41 Dose: 800 mg Documented By: PORFIRIO Sodium Chloride (0.9 % Sodium Chloride Flush 3 Ml Syringe) 3 ml IVFLUSH QSHIFT [facility] Last Admin: 08/25/22 08:41 Dose: 3 ml Documented By: PORFIRIO Labs 08/23/22 06:05 08/23/22 06:05 Labs: Laboratory Results - last 24 hr 08/24/22 08/24/22 08/24/22 14:06 16:25 20:12 POC Glucose 134 H 189 H 206 H 08/25/22 07:34 POC Glucose 96 Assessment and Plan (1) ESRD needing dialysis: Status: Acute (2) Acute cholecystitis: Status: Acute (3) Elevated transaminase level: Status: Acute (4) Hypokalemia: Status: Acute Plan A 76 years old lady with PMH of diabetes, pAFib, chronic diastolic CHF, ESRD on HD, obesity, PUD, copd/mod persistent asthma, among others who presented to the hospital complaining of right upper quadrant pain for 1 day prior to admission. Acute cholecystitis POD 4 lap choly acute hypokalemia resolved Acute hyponatremia mild Paroxysmal AFib Continue metoprolol restart eliquis End stage renal disease on dialysis Patient receives dialysis on TTS Nephrology following Insulin-dependent diabetes mellitus with hyperglycemia Hold home meds SSI, Suhas moderate persistent Asthma/COPD overlap syndrome Not in acute exacerbation Continue home inhalers DVT Prophylaxis: eliquis reason for continued hospitalization:safe dispo Time Spent With Patient Time: Total time managing care of this patient today ____ minutes. Quality Stroke Does the patient have a stroke diagnosis?: No VTE Prior VTE?: No VTE Risk Level:: Medical - moderate - high VTE Device Contraindication: Treatment Not Indicated VTE Drug Contraindication: N/A - Med Ordered
[2022-08-25 11:14] LABS: Glucose, Whole Blood 154 mg/dL (60-115)
[2022-08-25] MEDS: Insulin Lispro 100 UNIT/ML 3 ML VIAL SUBCUT ×3 (12:03→21:17)
[2022-08-25 16:34] LABS: Glucose, Whole Blood 214 mg/dL (60-115)
--- NOTE | 2022-08-25 17:16 | P.PNNP_ITS ---
Subjective Subjective Date of Service: 08/25/22 Interval history: Seen and examined, events noted Physical Exam Vital Signs: Vital Signs: Last Vital Signs Temp 97.8 F 08/25/22 15:25 Pulse 65 08/25/22 15:25 Resp 16 08/25/22 15:25 BP 148/67 H 08/25/22 15:25 Pulse Ox 96 08/25/22 15:25 O2 Del Method 08/25/22 15:25 O2 Flow Rate 2 08/21/22 23:44 Oxygen Flow Rate 2 08/18/22 01:33 BMI result Body Mass Index 32.1 Const: Other: Constitutional : Awake, interactive, not in distress Neck : Normal inspection, Supple Cardiovascular : RRR, no JVP, no lower extremity edema Respiratory : fair bilateral air entry, no crackles, wheezes or rhonchi Gastrointestinal: soft, lax, Normal bowel sounds, minimal RUQ tenderness with n egative marshall sign Skin : Warm, Dry Neurological : Alert & oriented x3, No focal deficit General: cooperative and no acute distress Nutritional Appearance: well nourished Orientation/consciousness: patient oriented x3 Limitations: no limitations and language barrier HEENT: Head: Yes normocephalic and Yes atraumatic Ears: hearing grossly normal bilaterally Eyes: Sclerae: sclerae normal Resp: Effort & Inspection: normal respiratory effort, no audible wheezes, no cough and no respiratory distress Cardio: Jugular venous distension: no JVD GI: Inspection: Yes normal to inspection Palpation (GI): Soft to palpation, Tenderness to palpation present (GI) in the RUQ and Marshall's sign positive, no guarding, not rigid and hepatosplenomegaly present Skin: Other: Warm, dry, no rash General skin exam: no rashes or lesions noted Neuro: General: patient oriented x3 Extrem: General: Yes normal to inspection and Yes no clubbing, cyanosis or edema Objective Data Labs 08/23/22 06:05 08/23/22 06:05 Labs: Laboratory Results - last 24 hr 08/24/22 08/25/22 08/25/22 20:12 07:34 11:01 POC Glucose 206 H 96 154 H 08/25/22 16:29 POC Glucose 214 H Microbiology Microbiology Results: Microbiology 08/18/22 05:54 Blood - Venous Blood Culture - Final No growth after 5 days. 08/18/22 05:54 Blood - Venous Blood Culture - Final No growth after 5 days. Procedures Date of Service Date of Service: 08/25/22 Assessment & Plan Assessment and plan (1) ESRD needing dialysis: Status: Acute Plan -ESRD TTS HD - Symptomatic Gstones: s/p surg 08/21 - Anemia: track Hb REC: cont HD 3x/wk on TTS schedule; EPO as orderd; d/c planning--I will arrange outpt HD Will folow with team Time Spent With Patient Time: Total time managing care of this patient today ____ minutes. Progress Note: Quality Stroke Does the patient have a stroke diagnosis?: No
[2022-08-25 20:54] LABS: Glucose, Whole Blood 214 mg/dL (60-115)
[2022-08-25] MEDS: Montelukast Sodium 10 MG TABLET PO (21:17)
[2022-08-26] VITALS (7 sets, daily range): BP systolic 128–182; BP diastolic 56–92; PULSE 66–76; RESP 15–20; TEMP 36.1–36.7; O2SAT 96–100
[2022-08-26] MEDS: 0.9 % Sodium Chloride Flush 3 ML SYRINGE IVFLUSH ×3 (00:01→14:34)
[2022-08-26] MEDS: Levothyroxine Sodium 25 MCG TABLET PO (06:02)
[2022-08-26] MEDS: Omeprazole 20 MG CAPSULE.DR PO (06:02)
[2022-08-26 08:00] LABS: Glucose, Whole Blood 152 mg/dL (60-115)
[2022-08-26] MEDS: Gabapentin 100 MG CAPSULE PO ×2 (08:16→21:35)
[2022-08-26] MEDS: Sevelamer Carbonate Tablet 800 MG TABLET PO ×3 (08:16→17:04)
[2022-08-26] MEDS: hydrALAZINE HCl 25 MG TABLET PO ×3 (08:16→21:36)
[2022-08-26] MEDS: Apixaban 5 MG TABLET PO ×2 (08:17→21:35)
[2022-08-26] MEDS: Dronedarone HCl 400 MG TABLET PO ×2 (08:17→21:36)
[2022-08-26] MEDS: Loratadine 10 MG TABLET PO (08:17)
[2022-08-26] MEDS: Metoprolol Tartrate 25 MG TABLET PO ×2 (08:17→21:36)
[2022-08-26] MEDS: Docusate Sodium 100 MG CAPSULE PO ×2 (08:17→21:35)
[2022-08-26] MEDS: Insulin Lispro 100 UNIT/ML 3 ML VIAL SUBCUT ×4 (08:19→21:36)
--- NOTE | 2022-08-26 08:48 | P.PNIM_ITS ---
Subjective Subjective Date of Service: 08/26/22 Interval History: pain imprvoed Physical Exam Vital Signs: Vital Signs: Last Vital Signs Temp 97.8 F 08/26/22 07:14 Pulse 71 08/26/22 07:14 Resp 18 08/26/22 07:14 BP 182/92 H 08/26/22 07:14 Pulse Ox 96 08/26/22 07:14 O2 Del Method 08/26/22 07:14 O2 Flow Rate 2 08/21/22 23:44 Oxygen Flow Rate 2 08/18/22 01:33 BMI result Body Mass Index 32.1 Const: Other: Constitutional : Awake, interactive, not in distress Neck : Normal inspection, Supple Cardiovascular : RRR, no JVP, no lower extremity edema Respiratory : fair bilateral air entry, no crackles, wheezes or rhonchi Gastrointestinal: soft, lax, Normal bowel sounds, minimal RUQ tenderness with negative marshall sign Skin : Warm, Dry Neurological : Alert & oriented x3, No focal deficit General: cooperative and no acute distress Nutritional Appearance: well nourished Orientation/consciousness: patient oriented x3 Limitations: no limitations and language barrier HEENT: Head: Yes normocephalic and Yes atraumatic Ears: hearing grossly normal bilaterally Eyes: Sclerae: sclerae normal Resp: Effort & Inspection: normal respiratory effort, no audible wheezes, no cough and no respiratory distress Cardio: Jugular venous distension: no JVD GI: Inspection: Yes normal to inspection Palpation (GI): Soft to palpation, Tenderness to palpation present (GI) in the RUQ and Marshall's sign positive, no guarding, not rigid and hepatosplenomegaly present Skin: Other: Warm, dry, no rash General skin exam: no rashes or lesions noted Neuro: General: patient oriented x3 Extrem: General: Yes normal to inspection and Yes no clubbing, cyanosis or edema Objective Data Active Medications Acetaminophen (Acetaminophen 325 Mg Tablet) 650 mg PO Q6H PRN PRN Reason: Pain, Mild (Pain Scale 1-3) Last Admin: 08/22/22 15:09 Dose: 650 mg Documented By: SIA Albuterol Sulfate (Albuterol Sulfate 90 Mcg 8 Gm Inhaler) 2 puff INHALE Q6H PRN PRN Reason: shortness of breath or wheezing Last Admin: 08/22/22 20:00 Dose: 2 puff Documented By: FARHAT Apixaban (Apixaban 5 Mg Tablet) 5 mg PO BID [facility] Last Admin: 08/26/22 08:17 Dose: 5 mg Documented By: PORFIRIO Calcitriol (Calcitriol 0.25 Mcg Capsule) 0.5 mcg PO TuWeSa@2000 [facility] Last Admin: 08/24/22 21:07 Dose: 0.5 mcg Documented By: CINTHYA Cyanocobalamin (Cyanocobalamin (Vitamin B-12) 1,000 Mcg/Ml Vial) 1,000 mcg IM Q28D [facility] Last Admin: 08/18/22 16:06 Dose: 1,000 mcg Documented By: ANITRA Docusate Sodium (Docusate Sodium 100 Mg Capsule) 100 mg PO BID [facility] Last Admin: 08/26/22 08:17 Dose: 100 mg Documented By: PORFIRIO Dronedarone (Dronedarone Hcl 400 Mg Tablet) 400 mg PO BID [facility] Last Admin: 08/26/22 08:17 Dose: 400 mg Documented By: PORFIRIO Fluticasone/Vilanterol (Fluticasone/Vilanterol 100/25 Blst.W.Dev) 1 puff INHALE RDAILY [facility] Last Admin: 08/26/22 07:43 Dose: Not Given Documented By: NADEEN Non-Admin Reason: pt refused wants to sleep Gabapentin (Gabapentin 100 Mg Capsule) 100 mg PO BID [facility] Last Admin: 08/26/22 08:16 Dose: 100 mg Documented By: PORFIRIO Hydralazine HCl (Hydralazine Hcl 25 Mg Tablet) 25 mg PO TID [facility]; Protocol Last Admin: 08/26/22 08:16 Dose: 25 mg Documented By: PORFIRIO Promethazine HCl 6.25 mg/ (Sodium Chloride) 50.25 mls @ 201 mls/hr IV ONCE PRN PRN Reason: Nausea and Vomiting Insulin Human Lispro (Insulin Lispro 100 Unit/Ml 3 Ml Vial) 0 unit SUBCUT QIDACHS [facility]; Protocol Last Admin: 08/26/22 08:19 Dose: 2 unit Documented By: PORFIRIO Levothyroxine Sodium (Levothyroxine Sodium 25 Mcg Tablet) 25 mcg PO DAILY@0600 [facility] Last Admin: 08/26/22 06:02 Dose: 25 mcg Documented By: CINTHYA Loratadine (Loratadine 10 Mg Tablet) 10 mg PO DAILY [facility] Last Admin: 08/26/22 08:17 Dose: 10 mg Documented By: PORFIRIO Metoprolol Tartrate (Metoprolol Tartrate 25 Mg Tablet) 25 mg PO BID [facility]; Protocol Last Admin: 08/26/22 08:17 Dose: 25 mg Documented By: PORFIRIO Montelukast Sodium (Montelukast Sodium 10 Mg Tablet) 10 mg PO BEDTIME [facility] Last Admin: 08/25/22 21:17 Dose: 10 mg Documented By: CINTHYA Omeprazole (Omeprazole 20 Mg Capsule.Dr) 20 mg PO DAILY@0630 [facility] Last Admin: 08/26/22 06:02 Dose: 20 mg Documented By: CINTHYA Ondansetron HCl (Ondansetron Hcl 4 Mg/2 Ml Vial) 4 mg IVPUSH Q8H PRN PRN Reason: Nausea and Vomiting Pharmacy Consult (Consult Rx Perform Med Rec) 1 each MISCELLANE ONCE PRN PRN Reason: Consult order Sevelamer Carbonate (Sevelamer Carbonate Tablet 800 Mg Tablet) 800 mg PO TIDWM [facility] Last Admin: 08/26/22 08:16 Dose: 800 mg Documented By: PORFIRIO Sodium Chloride (0.9 % Sodium Chloride Flush 3 Ml Syringe) 3 ml IVFLUSH QSHIFT [facility] Last Admin: 08/26/22 08:17 Dose: 3 ml Documented By: PORFIRIO Labs 08/23/22 06:05 08/23/22 06:05 Labs: Laboratory Results - last 24 hr 08/25/22 08/25/22 08/25/22 11:01 16:29 20:40 POC Glucose 154 H 214 H 214 H 08/26/22 07:37 POC Glucose 152 H Assessment and Plan (1) ESRD needing dialysis: Status: Acute (2) Acute cholecystitis: Status: Acute (3) Elevated transaminase level: Status: Acute (4) Hypokalemia: Status: Acute Plan A 76 years old lady with PMH of diabetes, pAFib, chronic diastolic CHF, ESRD on HD, obesity, PUD, copd/mod persistent asthma, among others who presented to the hospital complaining of right upper quadrant pain for 1 day prior to admission. Acute cholecystitis POD 5 lap choly acute hypokalemia resolved Acute hyponatremia mild Paroxysmal AFib Continue metoprolol restart eliquis End stage renal disease on dialysis Patient receives dialysis on TTS Nephrology following Insulin-dependent diabetes mellitus with hyperglycemia Hold home meds SSI, Lantus moderate persistent Asthma/COPD overlap syndrome Not in acute exacerbation Continue home inhalers DVT Prophylaxis: eliquis reason for continued hospitalization:safe dispo Time Spent With Patient Time: Total time managing care of this patient today ____ minutes. Quality Stroke Does the patient have a stroke diagnosis?: No VTE Prior VTE?: No VTE Risk Level:: Medical - moderate - high VTE Device Contraindication: Treatment Not Indicated VTE Drug Contraindication: N/A - Med Ordered
[2022-08-26 11:27] LABS: Glucose, Whole Blood 207 mg/dL (60-115)
--- NOTE | 2022-08-26 11:30 | MHC.CM.PN ---
Addendum entered by Chiara De Paz 08/26/22 16:35: [facility] STATES SOMEONE HAS TO CALL ON FRIDAYS FOR FRIDAY TRANSPORT. THEY SHOULD CALL [phone] AND CTS WILL MAKE THE ARRANGEMENTS SNF OR SON CAN CALL FOR THIS. THE FRIDAY/FRIDAY TRANSPORT IS SET AND RECURRING Addendum entered by Chiara De Paz 08/26/22 16:12: TRANSPORTATION FROM SNF TO [facility] WILL START 08/29/22 AT 1030 HOURS VIA OUTLOOK TRANSPORT. SOMEONE WILL NEED TO CALL ON Friday TO REQUEST THE FRIDAY TRANSPORT PER PROTOCOL THIS COULD BE SNF STAFF OR PTS SON, AWAITING SNF RESPONSE TO DETERMINE PREFERENCE SO IT CAN BE ARRANGED. SNF LIAISON ALSO INDICATING SHE WILL NEED TO CONFIRM THE ABOVE INFORMATION PRIOR TO SUBMITTING FOR AUTH Addendum entered by Chiara De Paz 08/26/22 15:43: CM SPOKE TO [facility]SPORT[facility] ([employer]) AND ARRANGED FOR PT TO ARRANGE TRANSPORTATION TO AND FROM [facility] TO . Addendum entered by Chiara De Paz 08/26/22 14:00: RODNEY BARNHART IS REVIEWING PT REFERRAL [facility]SPORTATION CONTACT INFORMATION PROVIDED FOR THEM TO CONFIRM SERVICES WHILE PT IS IN STR AWAITING RESPONSE/POSSIBLE BED OFFER Original Note: PT STILL AWAITING STR PLACEMENT SON EXPRESSES CONCERNS THAT PT WILL NOT BE ABLE TO NAVIGATE THE STAIRS AT HOME TO GO TO MANY REFERRALS MADE CURRENTLY NO BED OFFERS
--- NOTE | 2022-08-26 14:49 | PM.PNNEP ---
Subjective Subjective Date of Service: 08/26/22 Interval history: Seen and examiend, events noted Physical Exam Vital Signs: Vital Signs: Last Vital Signs Temp 98.0 F 08/26/22 11:12 Pulse 66 08/26/22 11:12 Resp 18 08/26/22 11:12 BP 128/56 L 08/26/22 11:12 Pulse Ox 100 08/26/22 11:12 O2 Del Method 08/26/22 11:12 O2 Flow Rate 2 08/21/22 23:44 Oxygen Flow Rate 2 08/18/22 01:33 BMI result Body Mass Index 32.1 Const: Other: Constitutional : Awake, interactive, not in distress Neck : Normal inspection, Supple Cardiovascular : RRR, no JVP, no lower extremity edema Respiratory : fair bilateral air entry, no crackles, wheezes or rhonchi Gastrointestinal: soft, lax, Normal bowel sounds, minimal RUQ tenderness with negative marshall sign Skin : Warm, Dry Neurological : Alert & oriented x3, No focal deficit General: cooperative and no acute distress Nutritional Appearance: well nourished Orientation/consciousness: patient oriented x3 Limitations: no limitations and language barrier HEENT: Head: Yes normocephalic and Yes atraumatic Ears: hearing grossly normal bilaterally Eyes: Sclerae: sclerae normal Resp: Effort & Inspection: normal respiratory effort, no audible wheezes, no cough and no respiratory distress Cardio: Jugular venous distension: no JVD GI: Inspection: Yes normal to inspection Palpation (GI): Soft to palpation, Tenderness to palpation present (GI) in the RUQ and Marshall's sign positive, no guarding, not rigid and hepatosplenomegaly present Skin: Other: Warm, dry, no rash General skin exam: no rashes or lesions noted Neuro: General: patient oriented x3 Extrem: General: Yes normal to inspection and Yes no clubbing, cyanosis or edema Objective Data Labs 08/23/22 06:05 08/23/22 06:05 Labs: Laboratory Results - last 24 hr 08/25/22 08/25/22 08/26/22 16:29 20:40 07:37 POC Glucose 214 H 214 H 152 H 08/26/22 11:14 POC Glucose 207 H Microbiology Microbiology Results: Microbiology 08/18/22 05:54 Blood - Venous Blood Culture - Final No growth after 5 days. 08/18/22 05:54 Blood - Venous Blood Culture - Final No growth after 5 days. Procedures Date of Service Date of Service: 08/26/22 Assessment & Plan Assessment and plan (1) ESRD needing dialysis: Status: Acute Plan -ESRD TTS HD - Symptomatic Gstones: s/p surg 08/21 - Anemia: track Hb REC: cont HD 3x/wk on TTS schedule; EPO as orderd; d/c planning--I will arrange outpt HD Will follow with team Time Spent With Patient Time: Total time managing care of this patient today ____ minutes. Progress Note: Quality Stroke Does the patient have a stroke diagnosis?: No
--- NOTE | 2022-08-26 14:54 | PM.PNNEP ---
Subjective Subjective Date of Service: 08/27/22 Interval history: Seen and examiend, events noted Physical Exam Vital Signs: Vital Signs: Last Vital Signs Temp 98.0 F 08/26/22 11:12 Pulse 66 08/26/22 11:12 Resp 18 08/26/22 11:12 BP 128/56 L 08/26/22 11:12 Pulse Ox 100 08/26/22 11:12 O2 Del Method 08/26/22 11:12 O2 Flow Rate 2 08/21/22 23:44 Oxygen Flow Rate 2 08/18/22 01:33 BMI result Body Mass Index 32.1 Const: Other: Constitutional : Awake, interactive, not in distress Neck : Normal inspection, Supple Cardiovascular : RRR, no JVP, no lower extremity edema Respiratory : fair bilateral air entry, no crackles, wheezes or rhonchi Gastrointestinal: soft, lax, Normal bowel sounds, minimal RUQ tenderness with negative marshall sign Skin : Warm, Dry Neurological : Alert & oriented x3, No focal deficit General: cooperative and no acute distress Nutritional Appearance: well nourished Orientation/consciousness: patient oriented x3 Limitations: no limitations and language barrier HEENT: Head: Yes normocephalic and Yes atraumatic Ears: hearing grossly normal bilaterally Eyes: Sclerae: sclerae normal Resp: Effort & Inspection: normal respiratory effort, no audible wheezes, no cough and no respiratory distress Cardio: Jugular venous distension: no JVD GI: Inspection: Yes normal to inspection Palpation (GI): Soft to palpation, Tenderness to palpation present (GI) in the RUQ and Marshall's sign positive, no guarding, not rigid and hepatosplenomegaly present Skin: Other: Warm, dry, no rash General skin exam: no rashes or lesions noted Neuro: General: patient oriented x3 Extrem: General: Yes normal to inspection and Yes no clubbing, cyanosis or edema Objective Data Labs 08/23/22 06:05 08/23/22 06:05 Labs: Laboratory Results - last 24 hr 08/25/22 08/25/22 08/26/22 16:29 20:40 07:37 POC Glucose 214 H 214 H 152 H 08/26/22 11:14 POC Glucose 207 H Microbiology Microbiology Results: Microbiology 08/18/22 05:54 Blood - Venous Blood Culture - Final No growth after 5 days. 08/18/22 05:54 Blood - Venous Blood Culture - Final No growth after 5 days. Procedures Date of Service Date of Service: 08/27/22 Assessment & Plan Assessment and plan (1) ESRD needing dialysis: Status: Acute Plan -ESRD TTS HD; currently on HD - Symptomatic Gstones resolved now s/p surg 08/21 - Anemia: track Hb REC: cont HD 3x/wk on TTS schedule; EPO as orderd; d/c planning--I will arrange outpt HD Will follow with team Time Spent With Patient Time: Total time managing care of this patient today ____ minutes. Progress Note: Quality Stroke Does the patient have a stroke diagnosis?: No
[2022-08-26 16:42] LABS: Glucose, Whole Blood 191 mg/dL (60-115)
[2022-08-26 21:06] LABS: Glucose, Whole Blood 209 mg/dL (60-115)
[2022-08-26] MEDS: Montelukast Sodium 10 MG TABLET PO (21:36)
[2022-08-27] VITALS (7 sets, daily range): BP systolic 120–185; BP diastolic 55–89; PULSE 72–106; RESP 18–20; TEMP 36.3–36.9; O2SAT 94–98
[2022-08-27] MEDS: Omeprazole 20 MG CAPSULE.DR PO (06:00)
[2022-08-27] MEDS: Levothyroxine Sodium 25 MCG TABLET PO (06:00)
[2022-08-27 07:27] LABS: Glucose, Whole Blood 120 mg/dL (60-115)
[2022-08-27] MEDS: Fluticasone/Vilanterol 100/25 BLST.W.DEV 1 PUFF INHALE (07:53)
[2022-08-27 13:08] LABS: Glucose, Whole Blood 137 mg/dL (60-115)
--- NOTE | 2022-08-27 13:48 | HO.PM.IMPN ---
Subjective Subjective Date of Service: 08/27/22 Interval History: offers no acute complaints of pain, no nausea no vomiting, receiving hemodialysis no acute events overnight. Review of Systems Review of Systems: Yes all other systems are reviewed and are negative Physical Exam Vital Signs: Vital Signs: Last Vital Signs Temp 97.7 F 08/27/22 13:28 Pulse 72 08/27/22 13:28 Resp 18 08/27/22 13:28 BP 120/60 08/27/22 13:45 Pulse Ox 97 08/27/22 13:28 O2 Del Method 08/27/22 13:28 O2 Flow Rate 2 08/21/22 23:44 Oxygen Flow Rate 2 08/18/22 01:33 BMI result Body Mass Index 32.1 Const: Other: General patient resting comfortably in no acute distress. Neck is supple no JVD. CVS regular rate rhythm, Respiratory lungs clear to auscultation, no respiratory distress, no wheeze Gastrointestinal abdomen soft, nontender, bowel sounds audible, no guarding , no rigidity. Neuro nonfocal Skin no rash Objective Data Active Medications Acetaminophen (Acetaminophen 325 Mg Tablet) 650 mg PO Q6H PRN PRN Reason: Pain, Mild (Pain Scale 1-3) Last Admin: 08/22/22 15:09 Dose: 650 mg Documented By: SIA Albuterol Sulfate (Albuterol Sulfate 90 Mcg 8 Gm Inhaler) 2 puff INHALE Q6H PRN PRN Reason: shortness of breath or wheezing Last Admin: 08/22/22 20:00 Dose: 2 puff Documented By: FARHAT Apixaban (Apixaban 5 Mg Tablet) 5 mg PO BID [facility] Last Admin: 08/27/22 11:28 Dose: Not Given Documented By: CLAIRE Non-Admin Reason: Off unit: Dialysis Calcitriol (Calcitriol 0.25 Mcg Capsule) 0.5 mcg PO WeSa@1999 [facility] Last Admin: 08/24/22 21:07 Dose: 0.5 mcg Documented By: CINTHYA Cyanocobalamin (Cyanocobalamin (Vitamin B-12) 1,000 Mcg/Ml Vial) 1,000 mcg IM Q28D [facility] Last Admin: 08/18/22 16:06 Dose: 1,000 mcg Documented By: ANITRA Docusate Sodium (Docusate Sodium 100 Mg Capsule) 100 mg PO BID [facility] Last Admin: 08/27/22 09:52 Dose: Not Given Documented By: CLAIRE Non-Admin Reason: Off unit: Dialysis Dronedarone (Dronedarone Hcl 400 Mg Tablet) 400 mg PO BID [facility] Last Admin: 08/27/22 11:28 Dose: Not Given Documented By: CLAIRE Non-Admin Reason: Off unit: Dialysis Fluticasone/Vilanterol (Fluticasone/Vilanterol 100/25 Blst.W.Dev) 1 puff INHALE RDAILY [facility] Last Admin: 08/27/22 07:53 Dose: 1 puff Documented By: PRISCILA Gabapentin (Gabapentin 100 Mg Capsule) 100 mg PO BID [facility] Last Admin: 08/27/22 09:52 Dose: Not Given Documented By: CLAIRE Non-Admin Reason: Off unit: Dialysis Hydralazine HCl (Hydralazine Hcl 25 Mg Tablet) 25 mg PO TID [facility]; Protocol Last Admin: 08/27/22 09:52 Dose: Not Given Documented By: CLAIRE Non-Admin Reason: Off unit: Dialysis Promethazine HCl 6.25 mg/ (Sodium Chloride) 50.25 mls @ 201 mls/hr IV ONCE PRN PRN Reason: Nausea and Vomiting Insulin Human Lispro (Insulin Lispro 100 Unit/Ml 3 Ml Vial) 0 unit SUBCUT QIDACHS [facility]; Protocol Last Admin: 08/27/22 12:10 Dose: Not Given Documented By: CLAIRE Non-Admin Reason: Off unit: Dialysis Levothyroxine Sodium (Levothyroxine Sodium 25 Mcg Tablet) 25 mcg PO DAILY@0600 [facility] Last Admin: 08/27/22 06:00 Dose: 25 mcg Documented By: CINTHYA Loratadine (Loratadine 10 Mg Tablet) 10 mg PO DAILY [facility] Last Admin: 08/27/22 11:28 Dose: Not Given Documented By: CLAIRE Non-Admin Reason: Off unit: Dialysis Metoprolol Tartrate (Metoprolol Tartrate 25 Mg Tablet) 25 mg PO BID [facility]; Protocol Last Admin: 08/27/22 11:29 Dose: Not Given Documented By: CLAIRE Non-Admin Reason: Off unit: Dialysis Montelukast Sodium (Montelukast Sodium 10 Mg Tablet) 10 mg PO BEDTIME [facility] Last Admin: 08/26/22 21:36 Dose: 10 mg Documented By: CINTHYA Omeprazole (Omeprazole 20 Mg Capsule.) 20 mg PO DAILY@0630 [facility] Last Admin: 08/27/22 06:00 Dose: 20 mg Documented By: CINTHYA Ondansetron HCl (Ondansetron Hcl 4 Mg/2 Ml Vial) 4 mg IVPUSH Q8H PRN PRN Reason: Nausea and Vomiting Pharmacy Consult (Consult Rx Perform Med Rec) 1 each MISCELLANE ONCE PRN PRN Reason: Consult order Sevelamer Carbonate (Sevelamer Carbonate Tablet 800 Mg Tablet) 800 mg PO TIDWM [facility] Last Admin: 08/27/22 12:10 Dose: Not Given Documented By: CLAIRE Non-Admin Reason: Off unit: Dialysis Sodium Chloride (0.9 % Sodium Chloride Flush 3 Ml Syringe) 3 ml IVFLUSH QSHIFT [facility] Last Admin: 08/27/22 09:51 Dose: Not Given Documented By: CLAIRE Non-Admin Reason: Off unit: Dialysis Labs 08/23/22 06:05 08/23/22 06:05 Labs: Laboratory Results - last 24 hr 08/26/22 08/26/22 08/27/22 16:26 20:47 07:09 POC Glucose 191 H 209 H 120 H 08/27/22 13:03 POC Glucose 137 H Assessment and Plan (1) ESRD needing dialysis: Status: Acute (2) Acute cholecystitis: Status: Acute (3) Elevated transaminase level: Status: Acute (4) Hypokalemia: Status: Acute Plan A 76 years old lady with PMH of diabetes, pAFib, chronic diastolic CHF, ESRD on HD, obesity, PUD, copd/mod persistent asthma, among others who presented to the hospital complaining of right upper quadrant pain for 1 day prior to admission. Acute cholecystitis POD 6 lap choly acute hypokalemia resolved Acute hyponatremia mild follow bmp Paroxysmal AFib Continue metoprolol,and eliquis End stage renal disease on dialysis Patient receives dialysis on TTS, Nephrology following Insulin-dependent diabetes mellitus with hyperglycemia stable blood sugars,Hold home meds, SSI moderate persistent Asthma/COPD overlap syndrome Not in acute exacerbation Continue home inhalers DVT Prophylaxis: eliquis reason for continued hospitalization:safe dispo Time Spent With Patient Time: Total time managing care of this patient today ____ minutes. Quality Stroke Does the patient have a stroke diagnosis?: No VTE Prior VTE?: No VTE Risk Level:: Medical - moderate - high VTE Device Contraindication: Treatment Not Indicated VTE Drug Contraindication: N/A - Med Ordered
[2022-08-27] MEDS: hydrALAZINE HCl 25 MG TABLET PO ×2 (16:17→19:41)
[2022-08-27] MEDS: Sevelamer Carbonate Tablet 800 MG TABLET PO (16:17)
[2022-08-27] MEDS: 0.9 % Sodium Chloride Flush 3 ML SYRINGE IVFLUSH ×3 (16:17→23:41)
[2022-08-27 16:29] LABS: Glucose, Whole Blood 243 mg/dL (60-115)
[2022-08-27] MEDS: Insulin Lispro 100 UNIT/ML 3 ML VIAL SUBCUT ×2 (17:10→20:40)
[2022-08-27] MEDS: Apixaban 5 MG TABLET PO (19:40)
[2022-08-27] MEDS: Docusate Sodium 100 MG CAPSULE PO (19:40)
[2022-08-27] MEDS: Montelukast Sodium 10 MG TABLET PO (19:41)
[2022-08-27] MEDS: Metoprolol Tartrate 25 MG TABLET PO (19:41)
[2022-08-27] MEDS: Dronedarone HCl 400 MG TABLET PO (19:41)
[2022-08-27] MEDS: Gabapentin 100 MG CAPSULE PO (19:41)
[2022-08-27] MEDS: calcitrioL 0.25 MCG CAPSULE 0.5 MCG PO (19:44)
[2022-08-27 19:48] LABS: Glucose, Whole Blood 230 mg/dL (60-115)
[2022-08-28] VITALS (7 sets, daily range): BP systolic 138–160; BP diastolic 58–72; PULSE 62–90; RESP 15–18; TEMP 36.6–37.3; O2SAT 95–98
[2022-08-28] MEDS: Omeprazole 20 MG CAPSULE.DR PO (06:04)
[2022-08-28] MEDS: Levothyroxine Sodium 25 MCG TABLET PO (06:04)
[2022-08-28 07:45] LABS: Glucose, Whole Blood 127 mg/dL (60-115)
[2022-08-28] MEDS: hydrALAZINE HCl 25 MG TABLET PO ×3 (08:49→19:59)
[2022-08-28] MEDS: Metoprolol Tartrate 25 MG TABLET PO ×2 (08:49→19:59)
[2022-08-28] MEDS: Apixaban 5 MG TABLET PO ×2 (08:49→19:59)
[2022-08-28] MEDS: Dronedarone HCl 400 MG TABLET PO ×2 (08:49→19:59)
[2022-08-28] MEDS: Sevelamer Carbonate Tablet 800 MG TABLET PO ×3 (08:49→17:14)
[2022-08-28] MEDS: Loratadine 10 MG TABLET PO (08:49)
[2022-08-28] MEDS: Docusate Sodium 100 MG CAPSULE PO ×2 (08:49→19:59)
[2022-08-28] MEDS: Gabapentin 100 MG CAPSULE PO ×2 (08:49→19:59)
[2022-08-28] MEDS: 0.9 % Sodium Chloride Flush 3 ML SYRINGE IVFLUSH (08:50)
--- NOTE | 2022-08-28 09:42 | P.PNIM_ITS ---
Subjective Subjective Date of Service: 08/28/22 Interval History: history obtained via game trapper patient offers no acute complaints, wants to go home tolerating diet no nausea, no vomiting, no abdominal pain. No acute events overnight. Review of Systems Review of Systems: Yes all other systems are reviewed and are negative Physical Exam Vital Signs: Vital Signs: Last Vital Signs Temp 99.2 F 08/28/22 08:00 Pulse 90 08/28/22 08:00 Resp 15 08/28/22 08:00 BP 154/63 H 08/28/22 08:00 Pulse Ox 96 08/28/22 08:00 O2 Del Method 08/28/22 08:00 O2 Flow Rate 2 08/21/22 23:44 Oxygen Flow Rate 2 08/18/22 01:33 BMI result Body Mass Index 32.1 Const: Other: General patient resting comfortably in no acute distress.? Neck is supple no JVD. CVS? regular rate rhythm, Respiratory lungs clear to auscultation, no respiratory distress, no wheeze Gastrointestinal abdomen soft, nontender, bowel sounds audible, no guarding , no rigidity. Neuro nonfocal Skin no rash Objective Data Active Medications Acetaminophen (Acetaminophen 325 Mg Tablet) 650 mg PO Q6H PRN PRN Reason: Pain, Mild (Pain Scale 1-3) Last Admin: 08/22/22 15:09 Dose: 650 mg Documented By: SIA Albuterol Sulfate (Albuterol Sulfate 90 Mcg 8 Gm Inhaler) 2 puff INHALE Q6H PRN PRN Reason: shortness of breath or wheezing Last Admin: 08/22/22 20:00 Dose: 2 puff Documented By: FARHAT Apixaban (Apixaban 5 Mg Tablet) 5 mg PO BID [facility] Last Admin: 08/28/22 08:49 Dose: 5 mg Documented By: MALGORZATA Calcitriol (Calcitriol 0.25 Mcg Capsule) 0.5 mcg PO WeSa@1999 [facility] Last Admin: 08/27/22 19:44 Dose: 0.5 mcg Documented By: ANITRA Cyanocobalamin (Cyanocobalamin (Vitamin B-12) 1,000 Mcg/Ml Vial) 1,000 mcg IM Q28D [facility] Last Admin: 08/18/22 16:06 Dose: 1,000 mcg Documented By: ANITRA Docusate Sodium (Docusate Sodium 100 Mg Capsule) 100 mg PO BID [facility] Last Admin: 08/28/22 08:49 Dose: 100 mg Documented By: MALGORZATA Dronedarone (Dronedarone Hcl 400 Mg Tablet) 400 mg PO BID [facility] Last Admin: 08/28/22 08:49 Dose: 400 mg Documented By: MALGORZATA Fluticasone/Vilanterol (Fluticasone/Vilanterol 100/25 Blst.W.Dev) 1 puff INHALE RDAILY [facility] Last Admin: 08/28/22 07:57 Dose: Not Given Documented By: NADEEN Non-Admin Reason: pt unavail Gabapentin (Gabapentin 100 Mg Capsule) 100 mg PO BID [facility] Last Admin: 08/28/22 08:49 Dose: 100 mg Documented By: MALGORZATA Hydralazine HCl (Hydralazine Hcl 25 Mg Tablet) 25 mg PO TID [facility]; Protocol Last Admin: 08/28/22 08:49 Dose: 25 mg Documented By: MALGORZATA Promethazine HCl 6.25 mg/ (Sodium Chloride) 50.25 mls @ 201 mls/hr IV ONCE PRN PRN Reason: Nausea and Vomiting Insulin Human Lispro (Insulin Lispro 100 Unit/Ml 3 Ml Vial) 0 unit SUBCUT QIDACHS [facility]; Protocol Last Admin: 08/28/22 08:41 Dose: Not Given Documented By: MALGORZATA Non-Admin Reason: No Insulin Coverage Levothyroxine Sodium (Levothyroxine Sodium 25 Mcg Tablet) 25 mcg PO DAILY@0600 [facility] Last Admin: 08/28/22 06:04 Dose: 25 mcg Documented By: BLAKE Loratadine (Loratadine 10 Mg Tablet) 10 mg PO DAILY [facility] Last Admin: 08/28/22 08:49 Dose: 10 mg Documented By: MALGORZATA Metoprolol Tartrate (Metoprolol Tartrate 25 Mg Tablet) 25 mg PO BID [facility]; Protocol Last Admin: 08/28/22 08:49 Dose: 25 mg Documented By: MALGORZATA Montelukast Sodium (Montelukast Sodium 10 Mg Tablet) 10 mg PO BEDTIME [facility] Last Admin: 08/27/22 19:41 Dose: 10 mg Documented By: ANITRA Omeprazole (Omeprazole 20 Mg Capsule.Dr) 20 mg PO DAILY@0630 [facility] Last Admin: 08/28/22 06:04 Dose: 20 mg Documented By: BLAKE Ondansetron HCl (Ondansetron Hcl 4 Mg/2 Ml Vial) 4 mg IVPUSH Q8H PRN PRN Reason: Nausea and Vomiting Pharmacy Consult (Consult Rx Perform Med Rec) 1 each MISCELLANE ONCE PRN PRN Reason: Consult order Sevelamer Carbonate (Sevelamer Carbonate Tablet 800 Mg Tablet) 800 mg PO TIDWM [facility] Last Admin: 08/28/22 08:49 Dose: 800 mg Documented By: MALGORZATA Sodium Chloride (0.9 % Sodium Chloride Flush 3 Ml Syringe) 3 ml IVFLUSH QSHIFT [facility] Last Admin: 08/28/22 08:50 Dose: 3 ml Documented By: MALGORZATA Labs 08/23/22 06:05 08/23/22 06:05 Labs: Laboratory Results - last 24 hr 08/27/22 08/27/22 08/27/22 13:03 16:24 19:31 POC Glucose 137 H 243 H 230 H 08/28/22 07:36 POC Glucose 127 H Assessment and Plan (1) ESRD needing dialysis: Status: Acute (2) Acute cholecystitis: Status: Acute (3) Elevated transaminase level: Status: Acute (4) Hypokalemia: Status: Acute Plan A 76 years old lady with PMH of diabetes, pAFib, chronic diastolic CHF, ESRD on HD, obesity, PUD, copd/mod persistent asthma, among others who presented to the hospital complaining of right upper quadrant pain for 1 day prior to admission. Acute cholecystitis POD 6 lap choly acute hypokalemia resolved Acute hyponatremia, sodium 131 stable follow as needed BMP Paroxysmal AFib Continue metoprolol, Multaq and eliquis End stage renal disease on dialysis renvela and calcitriol dialysis on TTS, Nephrology following Insulin-dependent diabetes mellitus with hyperglycemia stable blood sugars,on SSI, Lantus 8 units home dose on hold moderate persistent Asthma/COPD overlap syndrome Not in acute exacerbation Continue home inhalers DVT Prophylaxis: eliquis reason for continued hospitalization:safe dispo, seen by Physical therapy they recommend short-term rehab. Time Spent With Patient Time: Total time managing care of this patient today ____ minutes. Quality Stroke Does the patient have a stroke diagnosis?: No VTE Prior VTE?: No VTE Risk Level:: Medical - moderate - high VTE Device Contraindication: Treatment Not Indicated VTE Drug Contraindication: N/A - Med Ordered
--- NOTE | 2022-08-28 11:19 | PC.NURSE ---
IV 7 days old. Receiving no medications through. Ok to DC and leave out per Dr. Batres.
[2022-08-28 11:24] LABS: Glucose, Whole Blood 213 mg/dL (60-115)
[2022-08-28] MEDS: Insulin Lispro 100 UNIT/ML 3 ML VIAL SUBCUT ×2 (12:13→19:58)
--- NOTE | 2022-08-28 13:35 | MHC.CM.PN ---
EMR REVIEWED, CM [facility] PT, NO OTHER INTEREST/BED OFFERS AT THIS TIME. CM RECEIVED CALL FROM [facility] REQUESTING NEW PT EVAL AND FOR HER TO BE TRIALLED ON STAIRS SON IS SAYING PT WILL NEED A STRETCHER FOR DIALYSIS AND THEY SHE IS UNABLE TO MANAGE THE THREE STAIRS AT HOME, LIAISON REPORTS IT'S NOT LIKELY THEY WILL FIND A HD CENTER THAT ACCOMMODATES STRETCHERS. PT HAD ALREADY BEEN SEEN BY PT TODAY AND THERAPIST HAS GONE FOR DAY, CM WILL FOLLOW UP IN AM.
[2022-08-28 16:57] LABS: Glucose, Whole Blood 135 mg/dL (60-115)
--- NOTE | 2022-08-28 18:49 | PM.PNNEP ---
Subjective Subjective Date of Service: 08/28/22 Interval history: Seen and examined, events noted Physical Exam Vital Signs: Vital Signs: Last Vital Signs Temp 97.8 F 08/28/22 15:11 Pulse 62 08/28/22 15:11 Resp 18 08/28/22 15:11 BP 147/60 H 08/28/22 15:11 Pulse Ox 98 08/28/22 15:11 O2 Del Method 08/28/22 15:11 O2 Flow Rate 2 08/21/22 23:44 Oxygen Flow Rate 2 08/18/22 01:33 BMI result Body Mass Index 32.1 Const: Other: Constitutional : Awake, interactive, not in distress Neck : Normal inspection, Supple Cardiovascular : RRR, no JVP, no lower extremity edema Respiratory : fair bilateral air entry, no crackles, wheezes or rhonchi Gastrointestinal: soft, lax, Normal bowel sounds, minimal RUQ tenderness with negative marshall sign Skin : Warm, Dry Neurological : Alert & oriented x3, No focal deficit General: cooperative and no acute distress Nutritional Appearance: well nourished Orientation/consciousness: patient oriented x3 Limitations: no limitations and language barrier HEENT: Head: Yes normocephalic and Yes atraumatic Ears: hearing grossly normal bilaterally Eyes: Sclerae: sclerae normal Resp: Effort & Inspection: normal respiratory effort, no audible wheezes, no cough and no respiratory distress Cardio: Jugular venous distension: no JVD GI: Inspection: Yes normal to inspection Palpation (GI): Soft to palpation, Tenderness to palpation present (GI) in the RUQ and Marshall's sign positive, no guarding, not rigid and hepatosplenomegaly present Skin: Other: Warm, dry, no rash General skin exam: no rashes or lesions noted Neuro: General: patient oriented x3 Extrem: General: Yes normal to inspection and Yes no clubbing, cyanosis or edema Objective Data Labs 08/23/22 06:05 08/23/22 06:05 Labs: Laboratory Results - last 24 hr 08/27/22 08/28/22 08/28/22 19:31 07:36 11:11 POC Glucose 230 H 127 H 213 H 08/28/22 16:52 POC Glucose 135 H Microbiology Microbiology Results: Microbiology 08/18/22 05:54 Blood - Venous Blood Culture - Final No growth after 5 days. 08/18/22 05:54 Blood - Venous Blood Culture - Final No growth after 5 days. Procedures Date of Service Date of Service: 08/28/22 Assessment & Plan Assessment and plan (1) ESRD needing dialysis: Status: Acute Plan -ESRD TTS HD; currently on HD - Symptomatic Gstones resolved now s/p surg 08/21 - Anemia: track Hb REC: no new recs; cont HD 3x/wk on TTS schedule; EPO as orderd; d/c planning--I will arrange outpt HD Will follow with team Time Spent With Patient Time: Total time managing care of this patient today ____ minutes. Progress Note: Quality Stroke Does the patient have a stroke diagnosis?: No
[2022-08-28 19:47] LABS: Glucose, Whole Blood 231 mg/dL (60-115)
[2022-08-28] MEDS: calcitrioL 0.25 MCG CAPSULE 0.5 MCG PO (19:59)
[2022-08-28] MEDS: Montelukast Sodium 10 MG TABLET PO (19:59)
[2022-08-29 03:28] VITALS: BP 162/68; PULSE 73; RESP 16; TEMP 36.3; O2SAT 99
[2022-08-29] MEDS: Levothyroxine Sodium 25 MCG TABLET PO (06:14)
[2022-08-29] MEDS: Omeprazole 20 MG CAPSULE.DR PO (06:14)
[2022-08-29 07:40] LABS: Glucose, Whole Blood 142 mg/dL (60-115)
[2022-08-29 08:01] VITALS: BP 171/72; PULSE 72; RESP 16; TEMP 36.7; O2SAT 96
[2022-08-29] MEDS: Fluticasone/Vilanterol 100/25 BLST.W.DEV 1 PUFF INHALE (08:04)
[2022-08-29 08:07] VITALS: PULSE 66; RESP 18; O2SAT 95
[2022-08-29] MEDS: hydrALAZINE HCl 25 MG TABLET PO (08:16)
[2022-08-29] MEDS: Gabapentin 100 MG CAPSULE PO (08:16)
[2022-08-29] MEDS: Sevelamer Carbonate Tablet 800 MG TABLET PO (08:16)
[2022-08-29] MEDS: Apixaban 5 MG TABLET PO (08:16)
[2022-08-29] MEDS: 0.9 % Sodium Chloride Flush 3 ML SYRINGE IVFLUSH (08:16)
[2022-08-29] MEDS: Loratadine 10 MG TABLET PO (08:16)
[2022-08-29] MEDS: Metoprolol Tartrate 25 MG TABLET PO (08:16)
[2022-08-29] MEDS: Docusate Sodium 100 MG CAPSULE PO (08:16)
[2022-08-29] MEDS: Dronedarone HCl 400 MG TABLET PO (10:19)
--- NOTE | 2022-08-29 12:52 | MHC.CM.PN ---
Addendum entered by Lesa Heath RN 08/29/22 15:50: D/C SUMMARY AND HD WORKSHEET FAXED TO [facility] AT [facility] PER REQUEST Addendum entered by Lesa Heath RN 08/29/22 14:54: [facility] CONTACTED AT 2:34PM [phone] TO REINSTATE TRANSPORT TO Original Note: PT MEDCICALLY CLEARED FOR D/C HOME W/NEW HOME PT AND RESUMP OF HD AT [facility] T//FRI, MESSAGE LEFT FOR [facility] LIAISON AND PT WILL BE TRANSPORTED HOME VIA [place]. CM CONTACTED PT'S SON ELIO AT 12:35PM AT NUMBER ON FILE AND ELIO IS AGREABLE TO PLAN.
[2022-08-29 13:03] VITALS: BP 157/60; PULSE 67; RESP 20; O2SAT 97
[2022-08-29 13:07] LABS: Glucose, Whole Blood 133 mg/dL (60-115)
--- NOTE | 2022-08-29 14:37 | P.DS_ITS ---
DS: Providers Provider Date of Service: 08/29/22 Date of admission: 08/18/22 10:15 Primary care physician: Lonnie Khan MD Consults: 08/18/22 13:39 Consult to General Surgery Routine Consulting Provider: Lance Santacruz Reason for consultation: Acute cholecystitis Consult to Nephrology Routine Consulting Provider: Evelyn Hays Reason for consultation: Need of dialysis TTS DS: Diagnosis Discharge Diagnosis (1) ESRD needing dialysis: Status: Acute (2) S/P laparoscopic cholecystectomy: Status: Acute (3) Hypokalemia: Status: Acute (4) Acute cholecystitis: Status: Acute DS: Summary Hospital Course Hospital Course: from initial hpi: Chief Complaint: Right upper quadrant pain A 76 years old lady with PMH of diabetes, AFib, CHF, ESRD on HD among others who presents to the hospital complaining of right upper quadrant pain for 1 day prior to admission.? The patient had the pain started after eating fried pork and has been steady since then with associated chills but no fevers.? She reports having nausea but no vomiting or change in bowel habit.? Denies any chest pain, shortness of breath or urinary symptoms.? She had her dialysis session yesterday as she is on schedule of TTS. CT scan of the abdomen showed distended gallbladder with many gallstones.? Evaluated by surgical team a admitted to the medical service for IV antibiotics and possible surgery. hospital course: Patient was admitted for acute cholecystitis underwent laparoscopic chol ecystectomy on 08/21/2022, postoperative course was unremarkable. Patient also had acute hypokalemia and acute hyponatremia. Hypokalemia was replaced and hyponatremia was mild. Paroxysmal atrial fibrillation she was continue metoprolol and restarted on apixaban after surgery. For end-stage renal disease she was continued on hemodialysis. For diabetes with hyperglycemia she was treated with insulin. For moderate persistent asthma/COPD overlap she was not in exacerbation and was continued on home inhalers. Patient is feeling better will be discharged home. She will follow up outpatient with surgery. Time Spent with Patient Time attestation: Total time managing care of this patient today ____ minutes. Discharge coordination time: Greater than 30 minutes Quality: Safe Use of Opioids Does Pt have an Active Cancer Diagnosis on the Problem List?: No Quality: Stroke Does the patient have a stroke diagnosis?: No Physical Exam Vital Signs: Vital Signs: Last Vital Signs Temp 98.1 F 08/29/22 08:01 Pulse 67 08/29/22 13:03 Resp 20 08/29/22 13:03 BP 157/60 H 08/29/22 13:03 Pulse Ox 97 08/29/22 13:03 O2 Del Method 08/29/22 13:03 O2 Flow Rate 2 08/21/22 23:44 Oxygen Flow Rate 2 08/18/22 01:33 BMI result Body Mass Index 32.1 Const: Other: Constitutional : Awake, interactive, not in distress Neck : Normal inspection, Supple Cardiovascular : RRR, no JVP, no lower extremity edema Respiratory : fair bilateral air entry, no crackles, wheezes or rhonchi Gastrointestinal: soft, lax, Normal bowel sounds, no tenderness Skin : Warm, Dry Neurological : Alert & oriented x3, No focal deficit DS: Data Data Completed and Pending Completed studies during hospitalization [Text1]: Pending at discharge 08/21/22 13:11 Surgical [PTH] Routine Procedures Assistance with Respiratory Ventilation, Less than 24 Consecutive Hours, Continuous Positive Airway Pressure (11/06/21) Drainage of Left Pleural Cavity, Percutaneous Approach (05/21/21) Excision of Duodenum, Via Natural or Artificial Opening Endoscopic, Diagnostic (07/19/22) Excision of Right Kidney, Percutaneous Approach, Diagnostic (04/20/21) Excision of Sigmoid Colon, Via Natural or Artificial Opening Endoscopic, Diagnostic (07/19/22) Excision of Stomach, Pylorus, Via Natural or Artificial Opening Endoscopic, Diagnostic (07/19/22) Insertion of Infusion Device into Left Brachial Vein, Percutaneous Approach (05/02/21) Insertion of Infusion Device into Right Atrium, Percutaneous Approach (05/02/21) Insertion of Infusion Device into Superior Vena Cava, Percutaneous Approach (05/02/21) Insertion of Tunneled Vascular Access Device into Chest Subcutaneous Tissue and Fascia, Percutaneous Approach (05/02/21) Performance of Urinary Filtration, Intermittent, Less than 6 Hours Per Day (07/19/22) Removal of Infusion Device from Great Vessel, Percutaneous Approach (05/02/21) Transfusion of Nonautologous Red Blood Cells into Peripheral Vein, Percutaneous Approach (05/02/21) Labs on day of discharge: Laboratory Results - last 24 hr 08/28/22 08/28/22 08/29/22 16:52 19:38 07:27 POC Glucose 135 H 231 H 142 H 08/29/22 13:03 POC Glucose 133 H Imaging US - abdomen: Radiologist's impression: ITS Impressions Abdomen/Pelvis CT 08/18/22 05:23 IMPRESSION: 1. Mildly distended gallbladder with layering gallstones and mild nonspecific mural prominence. If there is clinical concern for cholecystitis, this would be better assessed with ultrasound. 2. Small amount of free fluid in the abdomen and pelvis. 3. Small pleural effusions. 4. Anasarca. Abdomen Ultrasound 08/18/22 08:00 IMPRESSION: Sonographic findings are suggestive of acute cholecystitis, though not conclusive. Consider correlation with a nuclear medicine hepatobiliary scan if there is clinical uncertainty.. Discharge Plan Discharge Anticipated Discharge Date/Time: 08/23/22 09:54 Patient Disposition: Xfer [facility] Discharge Diagnosis: cholecystitis Referrals: Robbin BOYD [Outside] - 1 Day Lonnie Khan MD [Primary Care Provider] - 1 Week (Call pcp office to schedule follow up appontment) Lance Santacruz MD [Physician] - 1 Week Discharge Medications: New oxycodone 5 mg tablet 5 mg PO Q6H PRN (Reason: moderate pain (scale score 5-6)) Qty: 14 0RF Rx Instructions: Partial Fill upon patient request. Continued (DME) Extra depth orthopedic shoes (1 pair) with customized heat molded multidensity innersoles (3 pair) See Rx Instructions .Route .MEDSUPPLY Qty: 1 0RF Rx Instructions: As directed (DME) syringe with needle 3 mL 27 gauge x 1 1/4 syringe See Rx Instructions .Route Qty: 6 1RF Rx Instructions: As directed once a month (for Vitamin B12 injections) loratadine 10 mg tablet 10 mg PO DAILY 90 Days Qty: 90 3RF Rx Instructions: Take 1 tablet by mouth daily ferrous sulfate 325 mg (65 mg iron) tablet 325 mg PO DAILY Qty: 90 1RF hydralazine 25 mg tablet 25 mg PO TID 90 Days Qty: 270 3RF Protocol: Hold for SBP< HOLD for SBP < : 90 Eliquis 5 mg tablet 5 mg PO BID 90 Days Qty: 180 0RF (DME) blood-glucose meter [FreeStyle Lite Meter] Kit See Rx Instructions .Route Qty: 1 0RF Rx Instructions: As directed atorvastatin 40 mg tablet 40 mg PO BEDTIME Qty: 90 0RF cyanocobalamin (vitamin B-12) 1,000 mcg/mL solution 1,000 mcg IM Q4W Qty: 3 1RF Multaq 400 mg tablet 400 mg PO BID Qty: 60 3RF Rx Instructions: must administer with a meal/food insulin glargine [Lantus Solostar U-100 Insulin] 100 unit/mL (3 mL) insulin pen 8 unit subcut BEDTIME 90 Days Qty: 7.2 3RF Advair HFA 115-21 mcg/actuation HFA aerosol inhaler 2 puff inhalation Q12H 30 Days Qty: 12 11RF metoprolol tartrate 25 mg tablet 25 mg PO BID Qty: 60 5RF Protocol: Hold for SBP/HR < HOLD for SBP < : 90 HOLD for HR < : 60 (DME) lancets [FreeStyle Lancets] 28 gauge misc See Rx Instructions .ROUTE .MEDSUPPLY Qty: 100 12RF Rx Instructions: check BS 3x/day (DME) DIGITAL SCALE See Rx Instructions .Route .MEDSUPPLY Qty: 1 0RF Rx Instructions: As directed pantoprazole 40 mg tablet,delayed release (DR/EC) 40 mg PO DAILY@0630 30 Days Qty: 30 5RF gabapentin 100 mg capsule 100 mg PO BID 30 Days Qty: 60 1RF (DME) FreeStyle Lite Strips Strip See Rx Instructions .ROUTE .COMPLEX Qty: 100 12RF Dose Instruction: USE DIRECTED ONCE A DAY Rx Instructions: USE DIRECTED ONCE A DAY montelukast 10 mg tablet 10 mg PO BEDTIME Qty: 90 0RF levothyroxine 25 mcg tablet 25 mcg PO DAILY@0600 Qty: 90 0RF insulin lispro 100 unit/mL insulin pen 2 - 10 unit subcut QIDACHS Rx Instructions: PER SLIDING SCALE acetaminophen 325 mg Tablet 325 mg PO Q6H PRN (Reason: Mild Pain (Scale Score 1-4)) lidocaine 5 % adhesive patch,medicated 1 patch TOPICAL DAILY Protocol: Apply to: Apply to: NECK AND LEGS Rx Instructions: leave on most painful area for up to 12 hrs sevelamer carbonate 800 mg tablet 800 mg PO TIDWM Rx Instructions: must administer with a meal/food calcitriol 0.25 mcg Capsule 0.5 mcg PO 3XW Rx Instructions: administer after dialysis on dialysis days aspirin 81 mg Tablet,Delayed Release (Dr/Ec) 81 mg PO DAILY docusate sodium 100 mg capsule 1 cap PO BID (DME) TRANSPORT WHEELCHAIR See Rx Instructions .Route .MEDSUPPLY Qty: 1 0RF Rx Instructions: As directed (DME) blood pressure monitor Kit See Rx Instructions .Route Qty: 1 0RF Rx Instructions: As directed (DME) pen needle, diabetic [BD Sandra 2nd Gen Pen Needle] 32 gauge x 5/32 needle See Rx Instructions .Route Qty: 50 0RF Rx Instructions: As directed (DME) blood-glucose meter [FreeStyle Lite Meter] Kit See Rx Instructions .Route Qty: 1 0RF Rx Instructions: As directed 3-4 times a day albuterol sulfate 90 mcg/actuation HFA aerosol inhaler 2 inh inhalation Q6H PRN (Reason: shortness of breath or wheezing) 30 Days Qty: 18 12RF Discharge Orders: Discharge Order (Routine); Ordered 08/29/22 Ordered By: Marvel Phelan Diet: Advance to usual diet Activity on Discharge: As tolerated Stand Alone Forms: Patient Portal Discharge page Activity Restrictions/Additional Instructions: If the incision area is tender, you may apply an ice pack for short intervals (No more than 20 minutes on, followed by at least 20 minutes off). Do not apply heat. Do not use creams, lotions, or topical antibiotics unless instructed to do so by your surgeon. These can cause infection or allergic reaction. Ok to shower. You have steri strips (small white cloth strips) covering your in cision- these will fall off ~1 week. No heavy lifting (>10lbs) or strenuous activity! Follow up in office with Dr. Santacruz in 1 week. ([phone]) Call Your Doctor If: -Your temperature exceeds 101.5? F -You experience excessive pain or swelling -You have an unexpected reaction to medication -You have excessive bleeding -You experience continued vomiting/nausea -Your incision begins to separate -Your incision shows signs of infection such as increased redness, swelling, excessive pain, drainage (light blood or clear fluid is normal) or heat Care Plan Goals: recovery Health Concerns: cholecystitis Plan of Treatment: pain control, follow up surgery Assessment: see above
== END 2022-08-29 16:55 | disposition home health service (06) | DRG 417 ==
LOC: HO.ED 06:51 → HO.EDOVER 10:29 → HO.S3 14:12
PROVIDERS: Hospitalist; Internal Medicine; Internal Medicine Nephrology; Surgery; Admitting Provider Student in an Organized Health Care Education/Training Program; Emergency Provider Emergency Medicine; PCP Internal Medicine; Visit Provider Student in an Organized Health Care Education/Training Program
PROC: 0FT44ZZ Resection of Gallbladder, Percutaneous Endoscopic Approach (ICD-10-PCS; CPT 47562; principal; 2022-08-21 11:20)
DX: K80.00 Calculus of gallbladder with acute cholecystitis without obstruction (principal); N18.6 End stage renal disease; I13.2 Hypertensive heart and chronic kidney disease with heart failure and with stage 5 chronic kidney disease, or end stage renal disease; I50.32 Chronic diastolic (congestive) heart failure; E87.1 Hypo-osmolality and hyponatremia; E11.22 Type 2 diabetes mellitus with diabetic chronic kidney disease; Z99.2 Dependence on renal dialysis; I48.0 Paroxysmal atrial fibrillation; E11.65 Type 2 diabetes mellitus with hyperglycemia; E03.9 Hypothyroidism, unspecified; E11.649 Type 2 diabetes mellitus with hypoglycemia without coma; E87.6 Hypokalemia; K74.60 Unspecified cirrhosis of liver; J45.30 Mild persistent asthma, uncomplicated; J44.9 Chronic obstructive pulmonary disease, unspecified; E66.9 Obesity, unspecified; I25.10 Atherosclerotic heart disease of native coronary artery without angina pectoris; Z68.32 Body mass index [BMI] 32.0-32.9, adult; Z20.822 Contact with and (suspected) exposure to COVID-19; Z79.4 Long term (current) use of insulin; Z79.01 Long term (current) use of anticoagulants; Z79.51 Long term (current) use of inhaled steroids; Z79.82 Long term (current) use of aspirin; Z79.890 Hormone replacement therapy; Z79.899 Other long term (current) drug therapy
CPT/HCPCS: 36415; 74176; 76705; 80048; 80076; 82728; 82947; 83540; 83605; 83690; 84484; 85025; 85027; 86850; 86900; 86901; 87040; 87635; 88304; 90935; 90999; 93005; 97116; 97162; 99285; J0131; J0696; J1170; J1650; J2250; J2270; J2405; J2543; J2550; J3010

== ENCOUNTER 2022-08-31 07:44 | Inpatient (IN) | payer OTHER, SELFPAY ==
--- NOTE | 2022-08-31 | ECG_ITS ---
Test Reason : CHEST PAIN Blood Pressure : / mmHG Vent. Rate : 066 BPM Atrial Rate : 066 BPM P-R Int : 224 ms QRS Dur : 082 ms QT Int : 442 ms P-R-T Axes : 052 061 047 degrees QTc Int : 463 ms Sinus rhythm with 1st degree A-V block Nonspecific ST and T wave abnormality Borderline ECG When compared with ECG of 18-AUG-2022 02:32, No significant changes seen Referred By: Brooke Marroquin Electronically Signed By:BETY NIÑO
--- NOTE | ~2022-08-31 | US_ITS ---
EXAMINATION: US ABDOMEN LIMITED CLINICAL INFORMATION: Nausea and vomiting, status post laparoscopic cholecystectomy, assess CBD. COMPARISON: CT abdomen and pelvis without contrast 08/31/2022. Ultrasound abdomen limited 08/18/2022. Ultrasound retroperitoneal limited (renal only) 04/16/2021. TECHNIQUE: Real-time imaging of the right upper quadrant abdominal viscera. FINDINGS: COMMON BILE DUCT: Normal in caliber measuring 0.7 cm in diameter. No choledocholithiasis demonstrated. Limited imaging. US/US abdomen limited IMPRESSION: No choledocholithiasis demonstrated.
--- NOTE | ~2022-08-31 | CT_ITS ---
EXAMINATION: CT ABDOMEN AND PELVIS WITHOUT CONTRAST CLINICAL INFORMATION: Postcholecystectomy, abdominal pain COMPARISON: 08/18/2022 TECHNIQUE: Multidetector volumetric imaging was performed from the superior aspect of the liver through the pubic symphysis. Sagittal and coronal reformatted images were obtained on the technologist's workstation. This CT examination was performed using dose optimization techniques as appropriate, variously including the following: *Automated exposure control *Adjustment of mA and/or kV according to patient size (this includes techniques or standardized protocols for targeted exams where dose is matched to indication/reason for exam; i.e. extremities or head) *Use of iterative reconstruction technique DLP: 775 mGy-cm FINDINGS: LUNG BASES: Minor left basilar airspace disease associated with a small amount of pleural effusion. Trace effusion right base. LIVER, GALLBLADDER, AND BILIARY TREE: The liver is normal in size, shape, and attenuation. No focal hepatic lesion or biliary ductal dilatation is present. Clips consistent with cholecystectomy. Within the upper abdomen centrally between the stomach and liver along the course of the gastric hepatic ligament, there is a new large heterogeneous lesion measuring up to 8.7 x 6 cm. Hounsfield attenuations measure up to 47 Hounsfield units. Based on postoperative course in size and appearance, the appearance is most consistent with a large hematoma. The appearance is not diagnostic of a biloma. There is complex fluid tracking into the pelvis and element of continued bleeding is not excluded on this standard CT scan without a CTA. There is dense atherosclerotic vasculature noted throughout. PANCREAS: Unremarkable. SPLEEN: Moderate amount of perisplenic acute blood is noted. ADRENAL GLANDS: Unremarkable. KIDNEYS AND URETERS: The kidneys are normal in size, shape, and attenuation. No hydronephrosis, hydroureter, or calculi seen. No perinephric stranding. BLADDER: Unremarkable. GASTROINTESTINAL TRACT: As above. ABDOMINAL WALL: No significant hernia is appreciated. LYMPH NODES: Normal. VASCULAR: Unremarkable. PELVIC VISCERA: Unremarkable. OSSEOUS STRUCTURES: Unremarkable. CT/CT abdomen pelvis wo IV con IMPRESSION: 1. Findings most commensurate with a acute large hematoma within the upper abdomen as above. Active bleeding not excluded on this standard CT scan without contrast. There is a moderate amount of complex fluid tracking into the pelvis which may be related to blood products. 2. Small left pleural effusion and left basilar airspace disease which may be related to atelectasis or pneumonia. 3. No biliary ductal dilatation status post cholecystectomy. No biliary dilatation. Fleischner guidelines were followed.
--- NOTE | ~2022-08-31 | MR_ITS ---
EXAMINATION: MR ABDOMEN WITHOUT CONTRAST, MRCP CLINICAL INFORMATION: Elevated LFTs. COMPARISON: Abdominal ultrasound 08/31/2022. CT abdomen/pelvis 08/31/2022. TECHNIQUE: MR abdomen is performed without gadolinium contrast. 3-D MRCP images were obtained. FINDINGS: LUNG BASES: Small bilateral pleural effusions. Cardiomegaly. LIVER, GALLBLADDER, AND BILIARY TREE: The liver measures 17.3 cm craniocaudally and demonstrates significant low T2 signal and signal loss on the in-phase dual echo images, most suggestive of iron overload. Otherwise, the liver is normal in shape with no discrete focal lesion in this limited noncontrast examination. Post cholecystectomy with redemonstration of a large collection in the right upper quadrant involving the periportal space, lesser sac and peripancreatic region with mixed attenuation on T2 and T1 images, including several foci of intrinsic T1 bright signal, suggestive of blood products of different ages. This collection measures approximately 9.2 x 7.1 x 7.9 cm (AP by TB by CC dimensions), previously 9.9 x 7.2 x 10.3 cm when measured similarly. 3-D MRCP images are essentially nondiagnostic due to motion. However, there is no significant biliary ductal dilatation. PANCREAS: No pancreatic ductal dilatation. Small amount of peripancreatic free fluid, similar to prior, nonspecific. SPLEEN: There is significant low T2 signal suggesting iron overload. Normal size. Redemonstration of a nonaggressive appearing 0.8 cm lesion in the inferior spleen with T2 bright signal, possibly a cyst, although incompletely characterized in the absence of IV contrast. ADRENAL GLANDS: No adrenal nodule. KIDNEYS AND URETERS: Bilateral cortical thinning suggesting chronic renal disease. No hydronephrosis. No significant perinephric fat stranding. GASTROINTESTINAL TRACT: Limited visualization of the bowel without evidence of bowel obstruction. There is some degree of prominent distention of the small bowel, which could be seen with ileus. Small volume of ascites. ABDOMINAL WALL: Anasarca. No significant hernia. LYMPH NODES: Evaluation of lymphadenopathy in the right upper quadrant is limited due to large hematoma. Otherwise, no bulky lymphadenopathy. VASCULAR: Limited noncontrast examination. Abdominal aorta is of normal diameter. OSSEOUS STRUCTURES: No acute or aggressive appearing osseous abnormalities. MR/MR MRCP IMPRESSION: Redemonstration of a large collection in the right upper quadrant involving the periportal space, lesser sac and peripancreatic region with imaging features most suggestive of a postoperative hematoma, that is slightly decreased in size compared to 08/31/2022. Evaluation of active bleeding is nondiagnostic in the absence of IV contrast. Findings most consistent with iron overload in the liver and spleen, likely transfusional. No significant biliary ductal dilatation. Distention of the small bowel suggestive of ileus in the postoperative state. Attention on followup. Small bilateral pleural effusions with ascites and anasarca indicative of volume overload. Peripancreatic free fluid is nonspecific and could be reactive given adjacent hematoma or related with volume overload. Recommend clinical correlation for acute pancreatitis.
[2022-08-31 08:06] VITALS: BP 118/62; PULSE 65; PULSE 79; RESP 18; TEMP 36.8; O2SAT 97; O2SAT 99; BMI 31.1
--- NOTE | 2022-08-31 08:16 | ED.ABDPAIN ---
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 Patient is complaining of severe abdominal pain at the surgery site. No fever, no chills. Related Data Home Medications Medication Instructions Recorded Confirmed insulin lispro 100 unit/mL 2 - 10 unit subcut QIDACHS 04/15/22 08/18/22 subcutaneous pen acetaminophen 325 mg tablet 325 mg PO Q6H PRN Mild Pain (Scale 07/19/22 08/18/22 Score 1-4) calcitriol 0.25 mcg capsule 0.5 mcg PO 3XW 07/19/22 08/18/22 lidocaine 5 % topical patch 1 patch topical DAILY 07/19/22 08/18/22 sevelamer carbonate 800 mg tablet 800 mg PO TIDWM 07/19/22 08/18/22 aspirin 81 mg tablet,delayed 81 mg PO DAILY 08/18/22 08/18/22 release docusate sodium 100 mg capsule 1 cap PO BID 08/18/22 08/18/22 Previous Rx's Medication Instructions Recorded TRANSPORT WHEELCHAIR #1 ea 08/03/21 blood pressure monitor #1 ea 08/03/21 blood-glucose meter (FreeStyle #1 ea 11/12/21 Lite Meter kit) Extra depth orthopedic shoes (1 #1 ea 11/16/21 pair) with customized heat molded multidensity innersoles (3 pair) syringe with needle 3 mL 27 gauge #6 ea 03/08/22 x 1 06/26 loratadine 10 mg tablet 10 mg PO DAILY 90 days #90 tabs 04/29/22 ferrous sulfate 325 mg (65 mg 325 mg PO DAILY #90 tabs 05/06/22 iron) tablet hydralazine 25 mg tablet 25 mg PO TID 90 days #270 tabs 05/13/22 pen needle, diabetic 32 gauge x #50 ea 06/05/22 (BD Sandra 2nd Gen Pen Needle) albuterol sulfate 90 mcg/actuation 2 inh inhalation Q6H PRN shortness 06/10/22 aerosol inhaler of breath or wheezing 30 days #18 grams apixaban 5 mg tablet (Eliquis) 5 mg PO BID 90 days #180 tabs 06/12/22 blood-glucose meter (FreeStyle #1 ea 06/12/22 Lite Meter kit) Multaq 400 mg tablet (dronedarone) 400 mg PO BID #60 tabs 06/13/22 atorvastatin 40 mg tablet 40 mg PO BEDTIME #90 tabs 06/13/22 cyanocobalamin (vitamin B-12) 1,000 mcg IM Q4W #3 mL 06/13/22 1,000 mcg/mL injection solution fluticasone propionate 115 2 puff inhalation Q12H 30 days #12 06/13/22 mcg-salmeterol 21 mcg/actuation grams HFA inhaler (Advair HFA) insulin glargine 100 unit/mL (3 8 unit (0.08 mL) subcut BEDTIME 90 06/13/22 mL) subcutaneous pen (Lantus #7.2 mL Solostar U-100 Insulin) lancets 28 gauge (FreeStyle #100 ea 06/13/22 Lancets) metoprolol tartrate 25 mg tablet 25 mg PO BID #60 tabs 06/13/22 DIGITAL SCALE #1 ea 06/14/22 pantoprazole 40 mg tablet,delayed 40 mg PO DAILY@0630 30 days #30 06/29/22 release tabs gabapentin 100 mg capsule 100 mg PO BID 30 days #60 caps 07/09/22 blood sugar diagnostic (FreeStyle #100 strips 08/05/22 Lite Strips) montelukast 10 mg tablet 10 mg PO BEDTIME #90 tabs 08/05/22 levothyroxine 25 mcg tablet 25 mcg PO DAILY@0600 #90 tabs 08/12/22 Allergies Allergy/AdvReac Type Severity Reaction Status Date / Time No Known Allergies Allergy Verified 08/05/22 10:24 Review of Systems Review of Systems All other systems are reviewed and are negative Constitutional: Reports as per HPI and Reports no additional constitutional complaints Eyes: Reports as per HPI and Reports no additional eye complaints Reports system reviewed and no additional complaints, except as documented Cardiovascular: Reports as per HPI and Reports no additional cardiovascular complaints Respiratory: Reports as per HPI and Reports no additional respiratory complaints Gastrointestinal: Reports as per HPI and Reports no additional gastrointestinal complaints Genitourinary: Reports no additional female genitourinary complaints Musculoskeletal: Reports no additional musculoskeletal complaints Skin/Breast: Reports system reviewed and no additional complaints, except as docu Psychiatric: Reports no additional psychiatric complaints Endocrine: Reports no additional endocrine complaints Hematologic/Lymphatic: Reports no additional hematologic/lymphatic complaints Allergic/Immunologic: Reports no additional allergic/immunologic complaints Reports system reviewed and no additional complaints, except as documented and Reports Abnormal speech present [facility] Past Medical History Medical History (Updated 08/31/22 @ 12:22 by Brooke Marroquin MD) Acute pericardial effusion Anemia Anemia 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 Benign essential hypertension CAD (coronary artery disease) Chronic anticoagulation Chronic kidney disease, stage 4 (severe) Dyspnea ESRD (end stage renal disease) ESRD (end stage renal disease) ESRD on dialysis Fluid overload Gastric ulcer GERD (gastroesophageal reflux disease) Hemodialysis patient HLD (hyperlipidemia) Hypertension Hypothyroidism Iron deficiency Nephrotic range proteinuria Obesity (BMI 30-39.9) Osteoarthritis Osteopenia PAF (paroxysmal atrial fibrillation) PAF (paroxysmal atrial fibrillation) Paroxysmal atrial fibrillation Pernicious anemia Pure hypercholesterolemia Toe amputee Type 2 diabetes mellitus Surgical History Hx of appendectomy S/P arteriovenous (AV) fistula creation Social History Social History Household Members: None [facility] [place] Housing: House Do you presently have visiting nurse or other home services: Yes Alcohol intake: unknown Patient Tobacco Use Status: Never used Tobacco Smoked in Last 30 Days: No e-Cigarette/Vaping Use: Never Used Second Hand Smoke Exposure: No Use of substances other than those prescribed or required for medical reasons: Unknown Advance Directives: Yes Advance Directives on File: Yes Advance Directives Date on File: 04/10/22 service: No Current occupational status: retired and disabled Cognitive needs: Yes Hearing needs: No Vision needs: No Physical Exam ED Vital Signs: Vital Signs - 24 hr 08/31/22 08:06 08/31/22 10:42 Temperature 98.2 F Pulse Rate 65 79 Respiratory Rate 18 18 Blood Pressure 128/39 L Pulse Oximetry 97 97 Oxygen Delivery Method Room Air Room Air BMI result Body Mass Index 31.1 Vital signs have been reviewed as appeared to be correct. Blood pressure normal. Heart rate normal. Respiration rate normal. Temperature normal. Oxygen saturation normal. Appearance: Alert. Oriented X3. No acute distress. Head: Normal external exam. Normocephalic. Atraumatic. No Eugene signs noted. No raccoon eyes noted Eyes: PERRLA. EOMI. Conjunctiva and sclera normal. Eyelids normal. ENT: TM's Normal. Pharynx normal. Uvula midline. Moist mucous membranes. No trismus noted. No drooling noted. No muffled voice noted. Neck: Normal inspection. Neck supple. FROM. No adenopathy. Thyroid Normal. No meningeal signs. No neck mass noted. CVS: Normal heart rate and rhythm. Heart sound normal. No murmurs noted. Pulses normal throughout. Respiratory: No respiratory distress. Painless inspiration. Breath sounds normal. No wheezes/rales/rhonchi noted. Chest nontender. No accessory muscle usage noted or decreased air movement noted. Abdomen: Right-sided abdominal tenderness, no rebound tenderness, no guarding.. Bowel sounds normal in all 4 quadrants. No distention noted. No organomegaly noted. No visible injury noted. Back: No CVA tenderness. Full range of motion noted. Skin: Skin warm and dry. Normal skin color. Normal skin turgor. No rashes/lesions/lacerations noted. Extremities: No lower extremity edema. Extremities exhibit normal range of motion. Extremities nontender. Neuro: Oriented X 3. Cranial nerve exam: II-XII are grossly intact No motor deficit. No sensory deficit. Reflexes normal. Course Course Course Narrative: A 77-year-old female status post lap cholecystectomy 12 days ago patient did well postoperatively until yesterday when she started to have right side abdominal pain, CT is consistent with hematoma postoperatively, patient is end-stage renal disease due for dialysis today patient did not go today no sign of volume overload at this point consulting Dr. briggs and hospitalist, case also discussed with Dr. Silvestre who will admit the patient for further evaluation and serial CBC. Medical Decision Making Differential Diagnosis Differential Diagnoses: The differential diagnosis associated with the presentation includes (Postoperative complication, ileus, small bowel obstruction, anemia, active internal bleeding.) Admission/Observation Consideration of admission/observation: Escalation of care including admission/observation considered Consult Healthcare Provider Management of the patient was discussed with: Hospitalist and Boarding Machine Operator Dr. Phelan, and Dr. Mark from renal who will arrange for dialysis. Lab Data MDM Lab Attestation statement: I reviewed the patient's lab results. 08/31/22 08:34 08/31/22 08:33 Labs: Lab Results 08/31/22 08/31/22 Range/Units 08:33 08:34 WBC 12.4 H (4.8-10.8) X10*3/uL RBC 2.88 L (4.20-5.50) X10*6/uL Hgb 8.7 L (12.0-16.0) g/dl Hct 27.1 L (37.0-47.0) % MCV 94.1 (80.0-98.0) fL MCH 30.2 (27.0-33.0) pg MCHC 32.1 (31.0-35.0) g/dl RDW 15.0 (11.0-16.0) % Plt Count 213 D (160-400) X10*3/uL MPV 9.9 (9.4-12.3) fL Immature Gran % (Auto) 0.8 H (0.0-0.4) % Neut % (Auto) 87.2 H (45-73) % Lymph % (Auto) 4.5 L (20-40) % [place] % (Auto) 6.6 (2-11) % Eos % (Auto) 0.6 (0-4) % Baso % (Auto) 0.3 (0-2) % Lymph # (Auto) 0.6 L (1.2-4.9) X10*3/uL [place] # (Auto) 0.8 (0.1-1.2) X10*3/uL Eos # (Auto) 0.1 (0.0-0.4) X10*3/uL Baso # (Auto) 0.0 (0.0-0.2) X10*3/uL Abs Immat Gran (auto) 0.10 H (0.00-0.03) X10*3/uL Absolute Neuts (auto) 10.8 H (2.0-8.3) x10*3/uL Absolute Nucleated RBC 0.000 (0.0-0.012) X10*3/uL Nucleated RBC % (auto) 0.0 (0.0-0.2) /100WBC Sodium 129 L (135-145) mmol/L Potassium 4.9 (3.3-5.1) mmol/L Chloride 99 (96-108) mmol/L Carbon Dioxide 16 L (22-29) mmol/L Anion Gap 19 (12-20) BUN 28 H (9-16) mg/dL Creatinine 4.64 H* (0.5-1.4) mg/dL Estim Creat Clear Calc 10.5 Estimated GFR 9 Random Glucose 217 H (60-115) mg/dL Calcium 7.8 L (8.4-10.2) mg/dL Total Bilirubin 1.1 H (0.0-1.0) mg/dL AST 29 (5-31) U/L ALT 21 (0-31) U/L Alkaline Phosphatase 314 H (39-117) U/L Total Protein 5.2 L (6.5-8.0) g/dL Albumin 2.8 L (3.5-5.0) g/dL Independent Interpretation I performed an independent interpretation of an: CT Scan (abd and pelvis:1. Findings most commensurate with a acute large hematoma within the upper abdomen as above. Active bleeding not excluded on this standard CT scan without contrast. There is a moderate amount of complex fluid tracking into the pelvis which may be related to blood products. 2. Small ) Radiology Impression Discussion of test interpretation with radiology: I have reviewed the radiologist's reading. Medications Administered Generic Name Dose Route Start Last Admin Trade Name Freq PRN Reason Stop Dose Admin Sodium Chloride 1,000 mls @ 100 mls/hr 08/31/22 11:45 08/31/22 12:18 Sodium Chloride 0.45 % IVCONT 100 mls/hr .Q10H MARKIE Administration Pantoprazole Sodium 40 mg 08/31/22 12:00 08/31/22 12:18 Pantoprazole Sodium 40 Mg/10 Ml Vial IVPUSH 40 mg DAILY@0630 MARKIE Administration Discontinued Medications Generic Name Dose Route Start Last Admin Trade Name Freq PRN Reason Stop Dose Admin Hydromorphone HCl 1 mg 08/31/22 09:00 08/31/22 09:18 Hydromorphone Hcl 1 Mg/Ml Syringe IVPUSH 08/31/22 09:01 1 mg ONCE ONE Administration Protocol Hydromorphone HCl 1 mg 08/31/22 11:22 08/31/22 11:38 Hydromorphone Hcl 1 Mg/Ml Syringe IVPUSH 08/31/22 11:23 1 mg ONCE ONE Administration Protocol Sodium Chloride 1,000 mls @ 250 mls/hr 08/31/22 08:30 08/31/22 12:18 Ns IVCONT 08/31/22 12:29 Infused .Q4H MARKIE Infusion Metoclopramide HCl 10 mg 08/31/22 09:00 08/31/22 09:18 Metoclopramide Hcl 10 Mg/2 Ml Vial IVPUSH 08/31/22 09:01 10 mg ONCE ONE Administration Morphine Sulfate 2 mg 08/31/22 08:18 08/31/22 08:48 Morphine Sulfate 2 Mg/Ml Cartridge IVPUSH 08/31/22 08:19 2 mg ONCE ONE Administration Protocol Ondansetron HCl 4 mg 08/31/22 08:18 08/31/22 08:48 Ondansetron Hcl 4 Mg/2 Ml Vial IVPUSH 08/31/22 08:19 4 mg ONCE ONE Administration Discharge Plan Discharge Clinical Impression: Postoperative hematoma involving digestive system following digestive system procedure, Hypokalemia Patient Disposition: Home, Self-Care
[2022-08-31 08:42] LABS: MANUAL DIFF FLAG NO
[2022-08-31 08:45] LABS: Basophils Percent Auto 0.3 % (0-2); Eosinophils Absolute Auto 0.1 X10*3/uL (0.0-0.4); Eosinophils Percent Auto 0.6 % (0-4); Hematocrit 27.1 % (37.0-47.0); Hemoglobin 8.7 g/dl (12.0-16.0); Imm Gran Pct Auto 0.8 % (0.0-0.4); Lymphocytes Absolute Auto 0.6 X10*3/uL (1.2-4.9); Lymphocytes Percent Auto 4.5 % (20-40); Mean Corpuscular HGB Conc 32.1 g/dl (31.0-35.0); Mean Corpuscular Hemoglobin 30.2 pg (27.0-33.0); Mean Corpuscular Volume 94.1 fL (80.0-98.0); Mean Platelet Volume 9.9 fL (9.4-12.3); Monocytes Absolute Auto 0.8 X10*3/uL (0.1-1.2); Monocytes Percent Auto 6.6 % (2-11); Neutrophils Absolute Auto 10.8 x10*3/uL (2.0-8.3); Neutrophils Percent Auto 87.2 % (45-73); Platelet Count 213 X10*3/uL (160-400); Red Blood Count 2.88 X10*6/uL (4.20-5.50); White Blood Count 12.4 X10*3/uL (4.8-10.8)
[2022-08-31] MEDS: Morphine Sulfate 2 MG/ML CARTRIDGE IVPUSH (08:48)
[2022-08-31] MEDS: 0.9 % Sodium Chloride 1,000 ML 250 ML IVCONT (08:48)
[2022-08-31] MEDS: ondansetron HCL 4 MG/2 ML VIAL IVPUSH (08:48)
--- NOTE | 2022-08-31 09:01 | PC.NURSE ---
made awre IVP bulmaro ineffective patient dry heaving will await orders
[2022-08-31 09:13] LABS: Alanine Aminotransferase 21 U/L (0-31); Albumin Level 2.8 g/dL (3.5-5.0); Alkaline Phosphatase 314 U/L (39-117); Anion Gap 19 (12-20); Aspartate Amino Transferase 29 U/L (5-31); Bilirubin Total 1.1 mg/dL (0.0-1.0); Blood Urea Nitrogen 28 mg/dL (9-16); Calcium 7.8 mg/dL (8.4-10.2); Carbon Dioxide 16 mmol/L (22-29); Chloride 99 mmol/L (96-108); Creatinine Clr Calc Pharmacy 10.5; Estimated Glomerular Filt Rate 9; Glucose Random 217 mg/dL (60-115); Potassium 4.9 mmol/L (3.3-5.1); Sodium 129 mmol/L (135-145); Total Protein 5.2 g/dL (6.5-8.0)
[2022-08-31] MEDS: Metoclopramide HCl 10 MG/2 ML VIAL IVPUSH (09:18)
[2022-08-31] MEDS: HYDROmorphone HCl 1 MG/ML SYRINGE IVPUSH ×2 (09:18→11:38)
[2022-08-31 10:42] VITALS: BP 128/39; PULSE 79; RESP 18; O2SAT 97
--- NOTE | 2022-08-31 11:04 | PC.NURSE ---
Continued complaint of pain MD aware awaiting orders
[2022-08-31 11:37] VITALS: BP 145/56; PULSE 65; RESP 18; O2SAT 96
--- NOTE | 2022-08-31 11:49 | PM.HPGS ---
History of Present Illness History of Present Illness Date of Service: 08/31/22 Chief complaint: Hematoma Narrative: Carolina Atkins is a 77 year old female on Eliquis, with h/o RF on dialysis (dialysis missed today) who underwent lap fei 08/21/[address] Santacruz for acute calculus cholecystitis, She presents with worsening pain & RUQ hematoma per CT assessment. Per Salima, the patient notes that she has had continued right upper quadrant gas pain that has been present since before surgery. It becomes worse at time causing severe nausea and vomiting. She has had no vomiting today, but her nausea was so severe that she came to the emergency department. She is chronically disc neck and notes that she is on home O2 but denies any chest pain, localizing neurologic symptoms. She has been tolerating some food, but has periods where the nausea become so bad that she vomits. Review of Systems Review of Systems: Yes all other systems are reviewed and are negative Constitutional: Constitutional: Reports as per HPI [facility] Past Medical History Medical History Acute pericardial effusion Anemia Anemia 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 Benign essential hypertension CAD (coronary artery disease) Chronic anticoagulation Chronic kidney disease, stage 4 (severe) Dyspnea ESRD (end stage renal disease) ESRD (end stage renal disease) ESRD on dialysis Fluid overload Gastric ulcer GERD (gastroesophageal reflux disease) Hemodialysis patient HLD (hyperlipidemia) Hypertension Hypothyroidism Iron deficiency Nephrotic range proteinuria Obesity (BMI 30-39.9) Osteoarthritis Osteopenia PAF (paroxysmal atrial fibrillation) PAF (paroxysmal atrial fibrillation) Paroxysmal atrial fibrillation Pernicious anemia Pure hypercholesterolemia Toe amputee Type 2 diabetes mellitus Surgical History Surgical History Hx of appendectomy S/P arteriovenous (AV) fistula creation Social History Social History Household Members: None Household Members Other:: [facility] Housing: House Do you presently have visiting nurse or other home services: Yes Alcohol intake: unknown Patient Tobacco Use Status: Never used Tobacco Smoked in Last 30 Days: No e-Cigarette/Vaping Use: Never Used Second Hand Smoke Exposure: No Use of substances other than those prescribed or required for medical reasons: Unknown Advance Directives: Yes Advance Directives on File: Yes Advance Directives Date on File: 04/10/22 service: No Current occupational status: retired and disabled Cognitive needs: Yes Hearing needs: No Vision needs: No Meds Allergies Allergy/AdvReac Type Severity Reaction Status Date / Time No Known Allergies Allergy Verified 08/05/22 10:24 Active Medications: Current Medications Sodium Chloride (Ns) 1,000 mls @ 250 mls/hr IVCONT .Q4H MARKIE Stop: 08/31/22 12:29 Last Admin: 08/31/22 08:48 Dose: 250 mls/hr Sodium Chloride (Sodium Chloride 0.45 %) 1,000 mls @ 100 mls/hr IVCONT .Q10H MARKIE Sodium Chloride (0.9 % Sodium Chloride Flush 3 Ml Syringe) 3 ml IVFLUSH QSHIFT [facility] Home Medications Medication Instructions Recorded Confirmed Last Taken Type insulin lispro 100 unit/mL 2 - 10 unit subcut QIDACHS 04/15/22 08/31/22 08/30/22 History subcutaneous pen acetaminophen 325 mg tablet 325 mg PO Q6H PRN Mild Pain (Scale 07/19/22 08/31/22 Unknown History Score 1-4) calcitriol 0.25 mcg capsule 0.5 mcg PO TUTHSA 07/19/22 08/31/22 Unknown History lidocaine 5 % topical patch 1 patch topical DAILY 07/19/22 08/31/22 Unknown History sevelamer carbonate 800 mg tablet 800 mg PO TIDWM 07/19/22 08/31/22 08/30/22 History aspirin 81 mg tablet,delayed 81 mg PO DAILY 08/18/22 08/31/22 08/30/22 History release docusate sodium 100 mg capsule 1 cap PO BID 08/18/22 08/31/22 08/30/22 History Physical Exam Vital Signs: Vital Signs: Last Vital Signs Temp 98.2 F 08/31/22 08:06 Pulse 65 08/31/22 11:37 Resp 18 08/31/22 11:37 BP 145/56 H 08/31/22 11:37 Pulse Ox 96 08/31/22 11:37 O2 Del Method 08/31/22 11:37 BMI result Body Mass Index 31.1 The patient is non-toxic & tangential in answers, with redirecting by Salima, the inte NC/AT, PERRLA, EOMI Mood, affect & judgment all appear appropriate Sclera anicteric conjunctiva pink and moist Oropharynx is clear with no aphthous ulcers, Mallampati class 4, mucous membranes moist Neck is free of masses and bruits Heart is regular, normal S1-S2 no rubs or murmurs Lungs are clear and equal anteriorly with no audible wheezing, rubs or dullness to percussion Abdomen is obese with no demonstrable hernias. The patient's abdomen is soft with no peritoneal sign to percussion and no guarding. Her incisions are well healed with no evidence of trocar hernia and no evidence of cellulitis or infection. Vague right upper quadrant discomfort is noted No HSM, rebound, rigidity, guarding, masses or bruits are present. Rectal exam is deferred Skin has good turgor and is free of rashes Extremities free of cyanosis clubbing edema Results Results Labs: Short CBC 08/31/22 Range/Units 08:34 WBC 12.4 H (4.8-10.8) X10*3/uL Hgb 8.7 L (12.0-16.0) g/dl Hct 27.1 L (37.0-47.0) % Plt Count 213 D (160-400) X10*3/uL BMP 08/31/22 08:33 Sodium 129 L Potassium 4.9 Chloride 99 Carbon Dioxide 16 L BUN 28 H Creatinine 4.64 H* Calcium 7.8 L Liver Function 08/31/22 Range/Units 08:33 Total Bilirubin 1.1 H (0.0-1.0) mg/dL AST 29 (5-31) U/L ALT 21 (0-31) U/L Alkaline Phosphatase 314 H (39-117) U/L Albumin 2.8 L (3.5-5.0) g/dL Abdomen CT scan report/results: report reviewed and image reviewed CT scan - pelvis: report reviewed and image reviewed Assessment and Plan (1) S/P laparoscopic cholecystectomy: Status: Acute (2) Acute cholecystitis: Status: Acute (3) Postoperative hematoma involving digestive system following digestive system procedure: Status: Acute (4) ESRD needing dialysis: Status: Acute (5) Gastric ulcer: Status: Acute (6) Asthma-COPD overlap syndrome: Status: Acute (7) Atrial fibrillation with rapid ventricular response: Status: Acute (8) Diabetes: Status: Acute (9) Chronic anticoagulation: Status: Acute Plan admit consult hospitalist & nephrology Hold Eliquis & ASA Type & cross 2 Unit NPO except meds trend labs & exam Via medical office administrator Salima, I explained to the patient that she had likely internal bleeding postoperatively due to her Eliquis and the severity of her gallbladder. The patient volunteered that she has a history of internal bleeding due to a colon problem which I assume she means her AVM. While the patient's hemoglobin drifted from around 10.3-8.7, she is not hemodynamically unstable and there is no evidence that she has active, ongoing bleeding. Will repeat a hemoglobin tonight but I expect there to be little change. The possibility of choledocholithiasis will need to be entertained given the chronicity of her complaints and I will order an abdominal ultrasound and possibly an MRCP. Depending on those results, Gastroenterology may need to evaluate the patient. Hospitalist input and help/direction greatly appreciated. Time Spent With Patient Time: Total time managing care of this patient today ____ minutes. Quality Stroke Does the patient have a stroke diagnosis?: No VTE Prior VTE?: No VTE Risk Level:: Surgical - moderate VTE Device Contraindication: N/A - Device Ordered VTE Drug Contraindication: Treatment Not Indicated Procedures Date of Service Date of Service: 08/31/22
[2022-08-31] MEDS: Pantoprazole Sodium 40 MG/10 ML VIAL IVPUSH (12:18)
[2022-08-31] MEDS: Sodium Chloride 0.45 % 1,000 ML 100 ML IVCONT ×2 (12:18→20:19)
--- NOTE | 2022-08-31 12:31 | P.CONHOSP_ITS ---
History of Present Illness Data of Consult Service Date: 08/31/22 Primary Care Provider: Lonnie Khan MD HPI Reason for consult: Medical management Pt is a 77-year-old female with a PMH significant for end-stage renal disease on dialysis (//Fri), asthma/COPD overlap, paroxysal atrial fibrillation on Eliqu is, anxiety, insulin-dependent DM 2 with polyneuropathy, anemia of chronic disease, CHF, hypothyroidism, HLD, and thrombosis of the jugular vein who presented to the ED with severe right-sided abdominal pain with nausea and vomiting x2 days. Pt had underwent a lap fei on 08/21/[address] Santacruz for acute cholecystitis. Was found to have a large RUQ hematoma on CT. Pt admitted under General Surgery, seen as hospitalist consult for medical management. Pt's only current acute complaint is of RUQ abdominal pain/discomfort. States it feels like she is bloated with gas. Has had nausea and vomiting x2 days, but currently none. Denies fever, chills. No chest pain/pressure, palpitations. No shortness of breath, difficulty breathing. Of note patient missed dialysis today due to presentation to the ED. Labs reviewed, significant for leukocytosis of 12.4, H&H of 8.7/27.1 (, mild hyponatremia of 129, chronically elevated BUN at 28, creatinine 4.64, alk-phos of 314. CT of abdomen also found small left pleural effusion and left basilar airspace disease, which has been present on previous CTs. [facility] Medical History Acute pericardial effusion Anemia Anemia 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 Benign essential hypertension CAD (coronary artery disease) Chronic anticoagulation Chronic kidney disease, stage 4 (severe) Dyspnea ESRD (end stage renal disease) ESRD (end stage renal disease) ESRD on dialysis Fluid overload Gastric ulcer GERD (gastroesophageal reflux disease) Hemodialysis patient HLD (hyperlipidemia) Hypertension Hypothyroidism Iron deficiency Nephrotic range proteinuria Obesity (BMI 30-39.9) Osteoarthritis Osteopenia PAF (paroxysmal atrial fibrillation) PAF (paroxysmal atrial fibrillation) Paroxysmal atrial fibrillation Pernicious anemia Pure hypercholesterolemia Toe amputee Type 2 diabetes mellitus Surgical History Hx of appendectomy S/P arteriovenous (AV) fistula creation Social History Household Members: None Household Members Other:: [facility] Housing: House Do you presently have visiting nurse or other home services: Yes Alcohol intake: unknown Patient Tobacco Use Status: Never used Tobacco Smoked in Last 30 Days: No e-Cigarette/Vaping Use: Never Used Second Hand Smoke Exposure: No Use of substances other than those prescribed or required for medical reasons: Unknown Advance Directives: Yes Advance Directives on File: Yes Advance Directives Date on File: 04/10/22 service: No Current occupational status: retired and disabled Cognitive needs: Yes Hearing needs: No Vision needs: No Meds Allergies Allergy/AdvReac Type Severity Reaction Status Date / Time No Known Allergies Allergy Verified 08/05/22 10:24 Active Medications: Current Medications Sodium Chloride (Sodium Chloride 0.45 %) 1,000 mls @ 100 mls/hr IVCONT .Q10H COUNT INCLUDES [facility] Last Admin: 08/31/22 12:18 Dose: 100 mls/hr Pantoprazole Sodium (Pantoprazole Sodium 40 Mg/10 Ml Vial) 40 mg IVPUSH DAILY@0630 COUNT INCLUDES THE [facility] Last Admin: 08/31/22 12:18 Dose: 40 mg Pharmacy Consult (Consult Rx Perform Med Rec) 1 each MISCELLANE ONCE PRN PRN Reason: Consult order Sodium Chloride (0.9 % Sodium Chloride Flush 3 Ml Syringe) 3 ml IVFLUSH QSHIFT COUNT INCLUDES THE [facility] Home Medications Medication Instructions Recorded Confirmed Last Taken Type insulin lispro 100 unit/mL 2 - 10 unit subcut QIDACHS 04/15/22 08/18/22 08/17/22 History subcutaneous pen acetaminophen 325 mg tablet 325 mg PO Q6H PRN Mild Pain (Scale 07/19/22 08/18/22 Unknown History Score 1-4) calcitriol 0.25 mcg capsule 0.5 mcg PO 3XW 07/19/22 08/18/22 Unknown History lidocaine 5 % topical patch 1 patch topical DAILY 07/19/22 08/18/22 Unknown History sevelamer carbonate 800 mg tablet 800 mg PO TIDWM 07/19/22 08/18/22 08/17/22 History aspirin 81 mg tablet,delayed 81 mg PO DAILY 08/18/22 08/18/22 08/17/22 History release docusate sodium 100 mg capsule 1 cap PO BID 08/18/22 08/18/22 08/17/22 History Physical Exam Vital Signs and Narrative: Vital Signs: Last Vital Signs Temp 98.2 F 08/31/22 08:06 Pulse 65 08/31/22 11:37 Resp 18 08/31/22 11:37 BP 145/56 H 08/31/22 11:37 Pulse Ox 96 08/31/22 11:37 O2 Del Method 08/31/22 11:37 BMI result Body Mass Index 31.1 General: AOx3, no acute distress Resp: CTA bilaterally CVS: S1, S2, RRR GI: +BS, diffusely tender on right side Skin: No rash Neuro: Cranial nerves II-XII grossly intact bilaterally. Motor grossly intact bilaterally Extremities: No edema Psych: Appropriate affect Results Labs 08/31/22 08:34 08/31/22 08:33 Labs: Laboratory Results - last 24 hr 08/31/22 08/31/22 08:33 08:34 MCV 94.1 MCH 30.2 MCHC 32.1 RDW 15.0 Plt Count 213 D MPV 9.9 Immature Gran % (Auto) 0.8 H Neut % (Auto) 87.2 H Lymph % (Auto) 4.5 L [place] % (Auto) 6.6 Eos % (Auto) 0.6 Baso % (Auto) 0.3 Lymph # (Auto) 0.6 L [place] # (Auto) 0.8 Eos # (Auto) 0.1 Baso # (Auto) 0.0 Abs Immat Gran (auto) 0.10 H Absolute Neuts (auto) 10.8 H Absolute Nucleated RBC 0.000 Nucleated RBC % (auto) 0.0 Anion Gap 19 Estim Creat Clear Calc 10.5 Estimated GFR 9 Random Glucose 217 H Calcium 7.8 L Total Bilirubin 1.1 H AST 29 ALT 21 Alkaline Phosphatase 314 H Total Protein 5.2 L Albumin 2.8 L Imaging Radiologist's Impressions: Impressions Abdomen/Pelvis CT 08/31/22 09:22 IMPRESSION: 1. Findings most commensurate with a acute large hematoma within the upper abdomen as above. Active bleeding not excluded on this standard CT scan without contrast. There is a moderate amount of complex fluid tracking into the pelvis which may be related to blood products. 2. Small left pleural effusion and left basilar airspace disease which may be related to atelectasis or pneumonia. 3. No biliary ductal dilatation status post cholecystectomy. No biliary dilatation. Fleischner guidelines were followed. Assessment and Plan (1) Postoperative hematoma involving digestive system following digestive system procedure: Status: Acute (2) ESRD needing dialysis: Status: Acute Plan Pt is a 77-year-old female with a PMH significant for end-stage renal disease on dialysis (//Fri), asthma/COPD overlap, paroxysal atrial fibrillation on Eliquis, anxiety, insulin-dependent DM 2 with polyneuropathy, anemia of chronic disease, CHF, hypothyroidism, HLD, and thrombosis of the jugular vein who presented to the ED with severe right-sided abdominal pain with nausea and vomiting x2 days. CT with evidence of large hematoma. Hospice consult for medical management. Postoperative hematoma Plan as per General surgery Small left pleural effusion Patient has had small pleural effusions visualized on CT since at least April 2021 Seem stable, chronic Patient with no respiratory complaints: no dyspnea, SOB, respiratory distress Acute hyponatremia Sodium 129 Pt receiving IVF Monitor BMP Paroxysmal AFib EKG shows patient currently in sinus rhythm with first-degree heart block Hold Eliquis d/t possible GI bleed, in anticipation of possible surgical intervention End stage renal disease on dialysis Patient receives dialysis on Tuesdays, , and Saturdays Pt missed dialysis today d/t coming to the ED Patient's creatinine stable at 4.64, above baseline Nephrology consult Insulin-dependent diabetes mellitus Hold home meds SSI, Lantus Moderate persistent asthma/COPD overlap syndrome Not in acute exacerbation Continue home inhalers Thank you for allowing us to participate in the care of this patient. We will continue follow during her stay. Please contact us with any acute questions or concerns. Time Spent With Patient Time: Total time managing care of this patient today ____ minutes.
--- NOTE | 2022-08-31 12:48 | PC.NURSE ---
Report to Aiyana HUYNH will prepare for transfer to [facility]
[2022-08-31 13:08] LABS: COVID-19 Test Negative (Negative); IDNOW Serial# 9DB6401D
--- NOTE | 2022-08-31 13:32 | PHA.MEDREC ---
Pharmacy Consult ? Medication Reconciliation Pharmacy has completed the medication reconciliation. Patient recent discharge 08/29/22. Patient reported no recent med changes since prior discharge.
--- NOTE | 2022-08-31 14:15 | PC.NURSE ---
ASSUMED CARE OF THIS PT AT 1345. PT SEEN BY DR. RAMOS, BEDSIDE ULTRA SOUND DONE, PT NOW IN DIALYSIS. WILL ADMINISTER 1500 HYDRALAZINE POST DIALYSIS.
[2022-08-31 14:43] LABS: Estimated Average Glucose 143 mg/dL; Hemoglobin A1c % 6.6 %
--- NOTE | 2022-08-31 16:55 | PC.NURSE ---
pt assigned to [id number]. RN-to-RN report given to Ema. pt in dialysis at this time. dialysis nurse Paula aware to call unit when pt is done.
[2022-08-31 18:04] LABS: Basophils Percent Auto 0.2 % (0-2); Eosinophils Percent Auto 0.1 % (0-4); Hematocrit 24.5 % (37.0-47.0); Hemoglobin 7.9 g/dl (12.0-16.0); Imm Gran Abs Auto 0.12 X10*3/uL (0.00-0.03); Lymphocytes Absolute Auto 0.4 X10*3/uL (1.2-4.9); MANUAL DIFF FLAG SCAN; Mean Corpuscular HGB Conc 32.2 g/dl (31.0-35.0); Mean Corpuscular Hemoglobin 30.9 pg (27.0-33.0); Mean Corpuscular Volume 95.7 fL (80.0-98.0); Mean Platelet Volume 9.9 fL (9.4-12.3); Monocytes Absolute Auto 0.6 X10*3/uL (0.1-1.2); Monocytes Percent Auto 4.5 % (2-11); Neutrophils Absolute Auto 11.5 x10*3/uL (2.0-8.3); Neutrophils Percent Auto 91.2 % (45-73); Platelet Count 185 X10*3/uL (160-400); Red Blood Count 2.56 X10*6/uL (4.20-5.50); Red Cell Distribution Width 15.1 % (11.0-16.0); SCAN SMEAR FLAG 1; White Blood Count 12.6 X10*3/uL (4.8-10.8)
[2022-08-31 18:22] LABS: SLIDE REVIEW VERIFIED
[2022-08-31 18:25] VITALS: BMI 30.5
[2022-08-31] MEDS: calcitrioL 0.25 MCG CAPSULE 0.5 MCG PO (18:47)
[2022-08-31] MEDS: Sevelamer Carbonate Tablet 800 MG TABLET PO (18:47)
[2022-08-31 18:48] VITALS: BP 133/95; PULSE 71; RESP 18; TEMP 36.1; O2SAT 97
[2022-08-31] MEDS: Metoprolol Tartrate 25 MG TABLET PO (20:17)
[2022-08-31] MEDS: Docusate Sodium 100 MG CAPSULE 200 MG PO (20:17)
[2022-08-31] MEDS: Montelukast Sodium 10 MG TABLET PO (20:17)
[2022-08-31] MEDS: Gabapentin 100 MG CAPSULE PO (20:17)
[2022-08-31] MEDS: Atorvastatin Calcium 40 MG TABLET PO (20:17)
[2022-08-31] MEDS: hydrALAZINE HCl 25 MG TABLET PO (20:18)
[2022-08-31] MEDS: Nystatin Cream 15 GM TUBE 1 APPL TOPICAL (20:18)
[2022-08-31] MEDS: Dronedarone HCl 400 MG TABLET PO (20:18)
--- NOTE | 2022-08-31 21:36 | PM.PNNEP ---
Subjective Subjective Date of Service: 08/31/22 Interval history: Pt seen on HD No CP C/o abd pain Physical Exam Vital Signs: Vital Signs: Last Vital Signs Temp 97.0 F 08/31/22 18:48 Pulse 71 08/31/22 18:48 Resp 18 08/31/22 18:48 BP 133/95 H 08/31/22 18:48 Pulse Ox 97 08/31/22 18:48 O2 Del Method 08/31/22 18:48 BMI result Body Mass Index 30.5 Const: General: cooperative, alert, awake and acute distress mild Orientation/consciousness: oriented to person and oriented to place Eyes: General: appearance normal, both eyes and all related structures Neck: Neck: Yes normal visual inspection, Yes full ROM, Yes supple and Yes no JVD Chest: Chest palpation & inspection: normal inspection of the chest Resp: Effort & Inspection: normal respiratory effort Auscultation: clear to auscultation bilaterally Cardio: Jugular venous distension: no JVD Heart sounds: S1 normal heart sound present and S2 normal heart sound present GI: Inspection: Yes normal to inspection Palpation (GI): Soft to palpation Neuro: General: oriented to person and oriented to place Objective Data Labs 08/31/22 17:55 08/31/22 08:33 Labs: Laboratory Results - last 24 hr 08/31/22 08/31/22 08/31/22 08:33 08:34 08:34 WBC 12.4 H RBC 2.88 L Hgb 8.7 L Hct 27.1 L MCV 94.1 MCH 30.2 MCHC 32.1 RDW 15.0 Plt Count 213 D MPV 9.9 Immature Gran % (Auto) 0.8 H Neut % (Auto) 87.2 H Lymph % (Auto) 4.5 L [place] % (Auto) 6.6 Eos % (Auto) 0.6 Baso % (Auto) 0.3 Lymph # (Auto) 0.6 L [place] # (Auto) 0.8 Eos # (Auto) 0.1 Baso # (Auto) 0.0 Abs Immat Gran (auto) 0.10 H Absolute Neuts (auto) 10.8 H Absolute Nucleated RBC 0.000 Nucleated RBC % (auto) 0.0 Smear Tech's Comments Sodium 129 L Potassium 4.9 Chloride 99 Carbon Dioxide 16 L Anion Gap 19 BUN 28 H Creatinine 4.64 H* Estim Creat Clear Calc 10.5 Estimated GFR 9 Random Glucose 217 H Estimat Average Glucose 143 Hemoglobin A1c % 6.6 Calcium 7.8 L Total Bilirubin 1.1 H AST 29 ALT 21 Alkaline Phosphatase 314 H Total Protein 5.2 L Albumin 2.8 L COVID-19 ([place]) COVID-19 Clin Com Blood Type Antibody Screen 08/31/22 08/31/22 08/31/22 12:08 12:34 17:55 WBC 12.6 H RBC 2.56 L Hgb 7.9 L Hct 24.5 L MCV 95.7 MCH 30.9 MCHC 32.2 RDW 15.1 Plt Count 185 MPV 9.9 Immature Gran % (Auto) 1.0 H Neut % (Auto) 91.2 H Lymph % (Auto) 3.0 L [place] % (Auto) 4.5 Eos % (Auto) 0.1 Baso % (Auto) 0.2 Lymph # (Auto) 0.4 L [place] # (Auto) 0.6 Eos # (Auto) 0.0 Baso # (Auto) 0.0 Abs Immat Gran (auto) 0.12 H Absolute Neuts (auto) 11.5 H Absolute Nucleated RBC 0.000 Nucleated RBC % (auto) 0.0 Smear Tech's Comments VERIFIED Sodium Potassium Chloride Carbon Dioxide Anion Gap BUN Creatinine Estim Creat Clear Calc Estimated GFR Random Glucose Estimat Average Glucose Hemoglobin A1c % Calcium Total Bilirubin AST ALT Alkaline Phosphatase Total Protein Albumin COVID-19 ([place]EN[place]) Negative COVID-19 [place] Com See Note Blood Type A Positive Antibody Screen NEGATIVE Procedures Date of Service Date of Service: 08/31/22 Assessment & Plan Assessment and plan (1) ESRD (end stage renal disease): Status: Acute Assessment and Plan: Continue HD Vol Removal as tolerated No HGeparin during Hd Surgery f/u Will start Epo (2) ESRD needing dialysis: Status: Acute Time Spent With Patient Time: Total time managing care of this patient today ____ minutes. Progress Note: Quality Stroke Does the patient have a stroke diagnosis?: No
[2022-09-01 04:00] VITALS: BP 125/56; PULSE 70; RESP 18; TEMP 36.1; O2SAT 97
[2022-09-01 05:28] VITALS: BMI 31.6
[2022-09-01] MEDS: Levothyroxine Sodium 25 MCG TABLET PO (05:48)
[2022-09-01] MEDS: Pantoprazole Sodium 40 MG/10 ML VIAL IVPUSH (05:48)
[2022-09-01] MEDS: Sodium Chloride 0.45 % 1,000 ML 100 ML IVCONT (05:54)
[2022-09-01 07:08] LABS: MANUAL DIFF FLAG NO
[2022-09-01 07:14] LABS: Basophils Absolute Auto 0.1 X10*3/uL (0.0-0.2); Basophils Percent Auto 0.5 % (0-2); Eosinophils Absolute Auto 0.1 X10*3/uL (0.0-0.4); Eosinophils Percent Auto 0.8 % (0-4); Hematocrit 22.9 % (37.0-47.0); Hemoglobin 7.2 g/dl (12.0-16.0); Imm Gran Abs Auto 0.07 X10*3/uL (0.00-0.03); Imm Gran Pct Auto 0.7 % (0.0-0.4); Lymphocytes Absolute Auto 0.7 X10*3/uL (1.2-4.9); Lymphocytes Percent Auto 6.2 % (20-40); Mean Corpuscular HGB Conc 31.4 g/dl (31.0-35.0); Mean Corpuscular Volume 95.4 fL (80.0-98.0); Mean Platelet Volume 10.4 fL (9.4-12.3); Monocytes Absolute Auto 0.9 X10*3/uL (0.1-1.2); Monocytes Percent Auto 8.6 % (2-11); Neutrophils Absolute Auto 8.9 x10*3/uL (2.0-8.3); Neutrophils Percent Auto 83.2 % (45-73); Platelet Count 181 X10*3/uL (160-400); Red Cell Distribution Width 15.1 % (11.0-16.0); White Blood Count 10.6 X10*3/uL (4.8-10.8)
[2022-09-01 07:28] VITALS: BP 130/68; PULSE 69; RESP 16; TEMP 36.4; O2SAT 98
--- NOTE | 2022-09-01 07:30 | CONS_ITS ---
DATE OF SERVICE: REASON FOR CONSULTATION: Consult requested by the surgical team to evaluate and help in management of patient with end-stage renal disease, presented with abdominal pain. HISTORY OF PRESENT ILLNESS: The patient is a 77-year-old female with past medical history of ESRD on hemodialysis on Friday, , Friday, history of COPD/asthma, atrial fibrillation on , who presents to the emergency room with severe right-sided abdominal pain with nausea and vomiting for 2 days. The patient underwent a lap cholecystectomy on 08/21/2022 for acute cholecystitis. She was found to have a large right upper quadrant hematoma based on CT. She has been admitted under General surgery and renal consult has been requested for help in management of ESRD and the patient usually gets dialysis on Friday, , Friday, and missed a dialysis treatment today. The patient is only current complaint is right upper quadrant pain and discomfort. She has had bloating with gas. She has had nausea vomiting for 2 days. There is no fever or chills. No chest pain, palpitation, or shortness of breath. Lab work done in the ER was evaluated by me. REVIEW OF SYSTEMS: As noted above. Other systems reviewed negative. PAST MEDICAL HISTORY: History of ESRD, on hemodialysis on Tuesdays, , Friday, history of acute pericardial effusion, anemia, COPD, asthma, AV malformation of colon, recent cholecystectomy, hypertension, coronary artery disease, atrial fibrillation, on , history of gastric ulcer/GERD, hyperlipidemia, hypertension, hypothyroidism, iron deficiency, obesity, osteoarthritis, hypercholesterolemia, and type 2 diabetes mellitus. PAST SURGICAL HISTORY: Patient has history of appendectomy in the past, AV fistula creation in the past. She had recent cholecystectomy. SOCIAL HISTORY: Patient does not smoke. Does not drink alcohol or use drugs. ALLERGIES: PATIENT HAS NO KNOWN DRUG ALLERGIES. MEDICATION: At home include insulin, Tylenol, calcitriol, Renagel 800 mg 3 times a day with meals, aspirin and Colace. PHYSICAL EXAMINATION: GENERAL: The patient is resting in the bed. Awake, alert, oriented x3. VITAL SIGNS: The patient's blood pressure is 145/56, pulse is 65, afebrile. HEENT: Shows pupils equal bilaterally to light. No jugular venous distention is noted. NECK: Supple. No thyromegaly is noted. Mucosa moist. There is no scleral icterus or conjunctival congestion. CARDIOVASCULAR SYSTEM: S1, S2 without rub or murmur. RESPIRATORY SYSTEM: Decreased in the bases. No crepitation or rhonchi is noted. ABDOMEN: Obese, soft. Bowel sounds are normal. Right upper quadrant tenderness. No guarding, no rigidity. EXTREMITIES: Showed no edema. There is no peripheral cyanosis or clubbing. NEURO EXAM: Essentially nonfocal. LABS: Done recently. WBC 12.5, hemoglobin 8.7, hematocrit was 27, platelets 213. Sodium 129, potassium 4.9, chloride 99, CO2 16, BUN 28, creatinine 4.64. IMPRESSION: 1. Elderly female with end-stage renal disease on hemodialysis, admitted with postoperative hematoma and abdominal pain. 2. Recent cholecystectomy. 3. Hypertension. 4. Type 2 diabetes mellitus. 5. Anemia of chronic disease. 6. Hyponatremia. 7. Metabolic acidosis. RECOMMENDATION: At this juncture, I have arranged hemodialysis for the patient at the inpatient dialysis unit. The patient usually gets dialyzed on Tuesdays, , Friday and she missed dialysis treatment today. The patient is acidotic and this will be corrected by dialysis. In regard to hyponatremia, I recommend restricting the p.o. opiates/fluid restriction. Dialysis should also correct the hyponatremia. The patient is under surgical service and they will manage the postoperative hematoma. She is to continue with the present antihypertensive medication. Eliquis has been on hold and we will not use heparin during dialysis. In regard to anemia, I will initiate the patient on erythropoietin 43692 units subcutaneously. Thank you for allowing me to participate in medical management of the patient. MD MELIZA Luther/RACHELL / [id number]
[2022-09-01 07:43] LABS: Alanine Aminotransferase 62 U/L (0-31); Albumin Level 2.9 g/dL (3.5-5.0); Alkaline Phosphatase 275 U/L (39-117); Aspartate Amino Transferase 85 U/L (5-31); Blood Urea Nitrogen 18 mg/dL (9-16); Calcium 7.4 mg/dL (8.4-10.2); Creatinine Clr Calc Pharmacy 14.6; Estimated Glomerular Filt Rate 13; Glucose Random 168 mg/dL (60-115); Total Protein 5.3 g/dL (6.5-8.0)
[2022-09-01 08:00] LABS: Anion Gap 14 (12-20); Carbon Dioxide 23 mmol/L (22-29); Chloride 98 mmol/L (96-108); Potassium 4.4 mmol/L (3.3-5.1); Sodium 131 mmol/L (135-145)
[2022-09-01] MEDS: Fluticasone/Vilanterol 100/25 BLST.W.DEV 1 PUFF INHALE (08:18)
[2022-09-01 08:19] VITALS: PULSE 98; RESP 18; O2SAT 89
[2022-09-01] MEDS: 0.9 % Sodium Chloride Flush 3 ML SYRINGE IVFLUSH (09:11)
[2022-09-01] MEDS: 0.9 % Sodium Chloride 1,000 ML 50 ML IVCONT (09:12)
[2022-09-01] MEDS: Docusate Sodium 100 MG CAPSULE 200 MG PO (09:18)
[2022-09-01] MEDS: Ferrous Sulfate 324 MG TABLET.DR PO (09:18)
[2022-09-01] MEDS: Gabapentin 100 MG CAPSULE PO ×2 (09:18→20:44)
[2022-09-01] MEDS: Loratadine 10 MG TABLET PO (09:18)
[2022-09-01] MEDS: Acetaminophen 325 MG TABLET 975 MG PO ×2 (09:19→18:20)
[2022-09-01] MEDS: Dronedarone HCl 400 MG TABLET PO ×2 (09:19→20:45)
[2022-09-01] MEDS: Metoprolol Tartrate 25 MG TABLET PO (09:19)
[2022-09-01] MEDS: hydrALAZINE HCl 25 MG TABLET PO ×3 (09:20→20:44)
[2022-09-01] MEDS: Nystatin Cream 15 GM TUBE 1 APPL TOPICAL ×2 (09:24→20:45)
--- NOTE | 2022-09-01 09:53 | PM.PNGS ---
Subjective Subjective Date of Service: 09/01/22 Patient reports: feels better and nausea Interval history: The patient reports ongoing nausea but does not have pain is severe as yesterday. She denies any respiratory difficulties or chest pain. She has no vomiting since yesterday Physical Exam Vital Signs: Vital Signs: Last Vital Signs Temp 97.6 F 09/01/22 07:28 Pulse 98 09/01/22 08:19 Resp 18 09/01/22 08:19 BP 130/68 09/01/22 07:28 Pulse Ox 98 09/01/22 07:28 O2 Del Method 09/01/22 07:28 BMI result Body Mass Index 31.6 On exam she is nontoxic and anicteric She is in no acute respiratory distress Abdomen is obese and soft. There is minimal right upper quadrant discomfort and the trocar incisions are well healed with no evidence of infection and no evidence of hernia Objective Data Active Medications Acetaminophen (Acetaminophen 325 Mg Tablet) 975 mg PO Q6H PRN PRN Reason: Pain, Mild (Pain Scale 1-3) Last Admin: 09/01/22 09:19 Dose: 975 mg Documented By: ANGELIQUE Albuterol Sulfate (Albuterol Sulfate 90 Mcg 8 Gm Inhaler) 2 puff INHALE Q6H PRN PRN Reason: shortness of breath or wheezing Atorvastatin Calcium (Atorvastatin Calcium 40 Mg Tablet) 40 mg PO BEDTIME [facility] Last Admin: 08/31/22 20:17 Dose: 40 mg Documented By: SHERITA Calcitriol (Calcitriol 0.25 Mcg Capsule) 0.5 mcg PO TuThSa@1800 [facility] Last Admin: 08/31/22 18:47 Dose: 0.5 mcg Documented By: SHERITA Cyanocobalamin (Cyanocobalamin (Vitamin B-12) 1,000 Mcg/Ml Vial) 1,000 mcg IM Q28D [facility] Docusate Sodium (Docusate Sodium 100 Mg Capsule) 200 mg PO BID [facility] Last Admin: 09/01/22 09:18 Dose: 200 mg Documented By: ANGELIQUE Dronedarone (Dronedarone Hcl 400 Mg Tablet) 400 mg PO BID [facility] Last Admin: 09/01/22 09:19 Dose: 400 mg Documented By: ANGELIQUE Ferrous Sulfate (Ferrous Sulfate 324 Mg Tablet.) 324 mg PO DAILY [facility] Last Admin: 09/01/22 09:18 Dose: 324 mg Documented By: ANGELIQUE Fluticasone/Vilanterol (Fluticasone/Vilanterol 100/25 Blst.W.Dev) 1 puff INHALE RDAILY [facility] Last Admin: 09/01/22 08:18 Dose: 1 puff Documented By: PRISCILA Gabapentin (Gabapentin 100 Mg Capsule) 100 mg PO BID [facility] Last Admin: 09/01/22 09:18 Dose: 100 mg Documented By: ANGELIQUE Hydralazine HCl (Hydralazine Hcl 25 Mg Tablet) 25 mg PO TID [facility]; Protocol Last Admin: 09/01/22 09:20 Dose: 25 mg Documented By: ANGELIQUE Hydromorphone HCl (Hydromorphone Hcl 0.5 Mg/0.5 Ml Syringe) 0.25 mg IVPUSH Q2H PRN; Protocol PRN Reason: Pain, Moderate (Pain Scale 4-6 Sodium Chloride (Ns) 1,000 mls @ 50 mls/hr IVCONT .Q20H [facility] Last Admin: 09/01/22 09:12 Dose: 50 mls/hr Documented By: ANGELIQUE Levothyroxine Sodium (Levothyroxine Sodium 25 Mcg Tablet) 25 mcg PO DAILY@0600 [facility] Last Admin: 09/01/22 05:48 Dose: 25 mcg Documented By: SHERITA Loratadine (Loratadine 10 Mg Tablet) 10 mg PO DAILY [facility] Last Admin: 09/01/22 09:18 Dose: 10 mg Documented By: ANGELIQUE Metoprolol Tartrate (Metoprolol Tartrate 25 Mg Tablet) 25 mg PO BID [facility]; Protocol Last Admin: 09/01/22 09:19 Dose: 25 mg Documented By: ANGELIQUE Montelukast Sodium (Montelukast Sodium 10 Mg Tablet) 10 mg PO BEDTIME [facility] Last Admin: 08/31/22 20:17 Dose: 10 mg Documented By: SHERITA Non-Formulary Medication (Pantoprazole) 40 mg PO DAILY@0630 [facility] Last Admin: 09/01/22 05:43 Dose: Not Given Documented By: SHERITA Non-Admin Reason: Duplicate Order Nystatin (Nystatin Cream 15 Gm Tube) 1 appl TOPICAL BID [facility]; Protocol Last Admin: 09/01/22 09:24 Dose: 1 appl Documented By: ANGELIQUE Ondansetron HCl (Ondansetron Hcl 4 Mg/2 Ml Vial) 4 mg IVPUSH Q6H PRN PRN Reason: Nausea and Vomiting Pantoprazole Sodium (Pantoprazole Sodium 40 Mg/10 Ml Vial) 40 mg IVPUSH DAILY@0630 [facility] Last Admin: 09/01/22 05:48 Dose: 40 mg Documented By: SHERITA Pharmacy Consult (Consult Rx Perform Med Rec) 1 each MISCELLANE ONCE PRN PRN Reason: Consult order Sevelamer Carbonate (Sevelamer Carbonate Tablet 800 Mg Tablet) 800 mg PO TIDWM [facility] Last Admin: 09/01/22 08:54 Dose: Not Given Documented By: ANGELIQUE Non-Admin Reason: NPO Sodium Chloride (0.9 % Sodium Chloride Flush 3 Ml Syringe) 3 ml IVFLUSH QSHIFT [facility] Last Admin: 09/01/22 09:11 Dose: 3 ml Documented By: ANGELIQUE Labs 09/01/22 06:17 09/01/22 06:17 Labs: Laboratory Results - last 24 hr 08/31/22 08/31/22 08/31/22 08:33 08:34 12:08 MCV MCH MCHC RDW Plt Count MPV Immature Gran % (Auto) Neut % (Auto) Lymph % (Auto) [place] % (Auto) Eos % (Auto) Baso % (Auto) Lymph # (Auto) [place] # (Auto) Eos # (Auto) Baso # (Auto) Abs Immat Gran (auto) Absolute Neuts (auto) Absolute Nucleated RBC Nucleated RBC % (auto) Smear Tech's Comments Anion Gap 19 Estim Creat Clear Calc 10.5 Estimated GFR 9 Random Glucose 217 H Estimat Average Glucose 143 Hemoglobin A1c % 6.6 Calcium 7.8 L Total Bilirubin 1.1 H AST 29 ALT 21 Alkaline Phosphatase 314 H Total Protein 5.2 L Albumin 2.8 L COVID-19 ([facility]) COVID-19 Clin Com Blood Type A Positive Antibody Screen NEGATIVE 08/31/22 08/31/22 09/01/22 12:34 17:55 06:17 MCV 95.7 95.4 MCH 30.9 30.0 MCHC 32.2 31.4 RDW 15.1 15.1 Plt Count 185 181 MPV 9.9 10.4 Immature Gran % (Auto) 1.0 H 0.7 H Neut % (Auto) 91.2 H 83.2 H Lymph % (Auto) 3.0 L 6.2 L [place] % (Auto) 4.5 8.6 Eos % (Auto) 0.1 0.8 Baso % (Auto) 0.2 0.5 Lymph # (Auto) 0.4 L 0.7 L [place] # (Auto) 0.6 0.9 Eos # (Auto) 0.0 0.1 Baso # (Auto) 0.0 0.1 Abs Immat Gran (auto) 0.12 H 0.07 H Absolute Neuts (auto) 11.5 H 8.9 H Absolute Nucleated RBC 0.000 0.000 Nucleated RBC % (auto) 0.0 0.0 Smear Tech's Comments VERIFIED Anion Gap Estim Creat Clear Calc Estimated GFR Random Glucose Estimat Average Glucose Hemoglobin A1c % Calcium Total Bilirubin AST ALT Alkaline Phosphatase Total Protein Albumin COVID-19 ([facility]) Negative COVID-[employer] See Note Blood Type Antibody Screen 09/01/22 06:17 MCV MCH MCHC RDW Plt Count MPV Immature Gran % (Auto) Neut % (Auto) Lymph % (Auto) [place] % (Auto) Eos % (Auto) Baso % (Auto) Lymph # (Auto) [place] # (Auto) Eos # (Auto) Baso # (Auto) Abs Immat Gran (auto) Absolute Neuts (auto) Absolute Nucleated RBC Nucleated RBC % (auto) Smear Tech's Comments Anion Gap 14 Estim Creat Clear Calc 14.6 Estimated GFR 13 Random Glucose 168 H Estimat Average Glucose Hemoglobin A1c % Calcium 7.4 L Total Bilirubin 1.0 AST 85 H ALT 62 H Alkaline Phosphatase 275 H Total Protein 5.3 L Albumin 2.9 L COVID-19 ([facility]) COVID-19 Clin Com Blood Type Antibody Screen Imaging US - abdomen: My impression: Await official interpretation. To measurements of 5 mm and 7 mm are noted for the common bile duct. Will order MRCP Radiologist's impression: Impressions Abdomen/Pelvis CT 08/31/22 09:22 IMPRESSION: 1. Findings most commensurate with a acute large hematoma within the upper abdomen as above. Active bleeding not excluded on this standard CT scan without contrast. There is a moderate amount of complex fluid tracking into the pelvis which may be related to blood products. 2. Small left pleural effusion and left basilar airspace disease which may be related to atelectasis or pneumonia. 3. No biliary ductal dilatation status post cholecystectomy. No biliary dilatation. Fleischner guidelines were followed. Procedures Date of Service Date of Service: 09/01/22 Progress Note: A&P Assessment and plan (1) ESRD (end stage renal disease): Status: Acute (2) Chronic anticoagulation: Status: Acute (3) Postoperative hematoma involving digestive system following digestive system procedure: Status: Acute (4) S/P laparoscopic cholecystectomy: Status: Acute (5) ESRD needing dialysis: Status: Acute (6) Elevated transaminase level: Status: Acute (7) AVM (arteriovenous malformation) of colon: Status: Acute Plan I have ordered MRCP since the patient's liver function tests have elevated. Concern for choledocholithiasis means we should hold any anticoagulation including aspirin until the MRCP is done. Continue NPO for now. Case discussed with the hospitalist. 1 unit of packed cells will be administered. Continue supportive measures and IV hydration. Time Spent With Patient Time: Total time managing care of this patient today ____ minutes. Quality Stroke Does the patient have a stroke diagnosis?: No VTE Prior VTE?: No VTE Risk Level:: Surgical - moderate VTE Device Contraindication: N/A - Device Ordered VTE Drug Contraindication: Treatment Not Indicated
--- NOTE | 2022-09-01 12:40 | P.PNNP_ITS ---
Subjective Subjective Date of Service: 09/01/22 Interval history: Pt resting in the bed No CP Comfortable Physical Exam Vital Signs: Vital Signs: Last Vital Signs Temp 97.6 F 09/01/22 07:28 Pulse 98 09/01/22 08:19 Resp 18 09/01/22 08:19 BP 130/68 09/01/22 07:28 Pulse Ox 98 09/01/22 07:28 O2 Del Method 09/01/22 07:28 BMI result Body Mass Index 31.6 On exam she is nontoxic and anicteric She is in no acute respiratory distress CVS - S1/ S2 normal RS: A/e good bilateral Abdomen is obese and soft. There is minimal right upper quadrant discomfort Objective Data Labs 09/01/22 06:17 09/01/22 06:17 Labs: Laboratory Results - last 24 hr 08/31/22 08/31/22 08/31/22 08:34 12:08 12:34 WBC RBC Hgb Hct MCV MCH MCHC RDW Plt Count MPV Immature Gran % (Auto) Neut % (Auto) Lymph % (Auto) [place] % (Auto) Eos % (Auto) Baso % (Auto) Lymph # (Auto) [place] # (Auto) Eos # (Auto) Baso # (Auto) Abs Immat Gran (auto) Absolute Neuts (auto) Absolute Nucleated RBC Nucleated RBC % (auto) Smear Tech's Comments Sodium Potassium Chloride Carbon Dioxide Anion Gap BUN Creatinine Estim Creat Clear Calc Estimated GFR Random Glucose Estimat Average Glucose 143 Hemoglobin A1c % 6.6 Calcium Total Bilirubin AST ALT Alkaline Phosphatase Total Protein Albumin COVID-19 ([facility]) Negative COVID-19 Clin Com See Note Blood Type A Positive Antibody Screen NEGATIVE 08/31/22 09/01/22 09/01/22 17:55 06:17 06:17 WBC 12.6 H 10.6 RBC 2.56 L 2.40 L Hgb 7.9 L 7.2 L Hct 24.5 L 22.9 L MCV 95.7 95.4 MCH 30.9 30.0 MCHC 32.2 31.4 RDW 15.1 15.1 Plt Count 185 181 MPV 9.9 10.4 Immature Gran % (Auto) 1.0 H 0.7 H Neut % (Auto) 91.2 H 83.2 H Lymph % (Auto) 3.0 L 6.2 L [place] % (Auto) 4.5 8.6 Eos % (Auto) 0.1 0.8 Baso % (Auto) 0.2 0.5 Lymph # (Auto) 0.4 L 0.7 L [place] # (Auto) 0.6 0.9 Eos # (Auto) 0.0 0.1 Baso # (Auto) 0.0 0.1 Abs Immat Gran (auto) 0.12 H 0.07 H Absolute Neuts (auto) 11.5 H 8.9 H Absolute Nucleated RBC 0.000 0.000 Nucleated RBC % (auto) 0.0 0.0 Smear Tech's Comments VERIFIED Sodium 131 L Potassium 4.4 Chloride 98 Carbon Dioxide 23 Anion Gap 14 BUN 18 H Creatinine 3.34 H Estim Creat Clear Calc 14.6 Estimated GFR 13 Random Glucose 168 H Estimat Average Glucose Hemoglobin A1c % Calcium 7.4 L Total Bilirubin 1.0 AST 85 H ALT 62 H Alkaline Phosphatase 275 H Total Protein 5.3 L Albumin 2.9 L COVID-19 ([facility]) COVID-19 Clin Com Blood Type Antibody Screen Procedures Date of Service Date of Service: 09/01/22 Assessment & Plan Assessment and plan (1) ESRD (end stage renal disease): Status: Acute Assessment and Plan: Continue HD per her schedule Vol Removal as tolerated No Heparin during Hd Surgery f/u Epo x 1 dose given yesterday d/c IVF if pt able to take PO (2) Postoperative hematoma involving digestive system following digestive system procedure: Status: Acute (3) ESRD needing dialysis: Status: Acute Plan ESRD on HD Time Spent With Patient Time: Total time managing care of this patient today ____ minutes. Progress Note: Quality Stroke Does the patient have a stroke diagnosis?: No
--- NOTE | 2022-09-01 12:44 | MHC.CM.PN ---
IMM 09/01/22 Female 77 DX Hematoma. Patient lives alone with assist from son, Jason. He is her LEVEL VIAL SETTER. He lives close by in the same complex. HD schedule T/T/S. She has been Covid vaccinated. A HCP is on file. She uses a walker for unsteady gait. Patient requests to go to [facility] for [facility]. The patient will need a PT eval to recommend STR. The patient understands that she will need to qualify for STR. She has been to [facility] in the past. A referral has been sent. PT eval pending medical clearance. DP STR @ [facility] via BLS vs Home with resumption of [facility] services. patients son will provide transportation home.
--- NOTE | 2022-09-01 14:28 | P.PNIM_ITS ---
Subjective Subjective Date of Service: 09/01/22 Interval History: Looks comfortable Denies any pain SOB US done No reported overnight events Review of Systems Review of Systems: Yes all other systems are reviewed and are negative Physical Exam Vital Signs: Vital Signs: Last Vital Signs Temp 97.6 F 09/01/22 07:28 Pulse 98 09/01/22 08:19 Resp 18 09/01/22 08:19 BP 130/68 09/01/22 07:28 Pulse Ox 98 09/01/22 07:28 O2 Del Method 09/01/22 07:28 BMI result Body Mass Index 31.6 Const: Other: Constitutional : Awake, interactive, not in distress Neck : Normal inspection, Supple Cardiovascular : RRR, no JVP, no lower extremity edema Respiratory : good bilateral air entry, no crackles, wheezes or rhonchi Gastrointestinal: soft, lax, Normal bowel sounds, Non tender Skin : Warm, Dry Neurological : Alert & oriented x3, No focal deficit Objective Data Active Medications Acetaminophen (Acetaminophen 325 Mg Tablet) 975 mg PO Q6H PRN PRN Reason: Pain, Mild (Pain Scale 1-3) Last Admin: 09/01/22 09:19 Dose: 975 mg Documented By: ANGELIQUE Albuterol Sulfate (Albuterol Sulfate 90 Mcg 8 Gm Inhaler) 2 puff INHALE Q6H PRN PRN Reason: shortness of breath or wheezing Atorvastatin Calcium (Atorvastatin Calcium 40 Mg Tablet) 40 mg PO BEDTIME [facility] Last Admin: 08/31/22 20:17 Dose: 40 mg Documented By: SHERITA Calcitriol (Calcitriol 0.25 Mcg Capsule) 0.5 mcg PO TuThSa@1800 [facility] Last Admin: 08/31/22 18:47 Dose: 0.5 mcg Documented By: SHERITA Cyanocobalamin (Cyanocobalamin (Vitamin B-12) 1,000 Mcg/Ml Vial) 1,000 mcg IM Q28D [facility] Docusate Sodium (Docusate Sodium 100 Mg Capsule) 200 mg PO BID [facility] Last Admin: 09/01/22 09:18 Dose: 200 mg Documented By: ANGELIQUE Dronedarone (Dronedarone Hcl 400 Mg Tablet) 400 mg PO BID [facility] Last Admin: 09/01/22 09:19 Dose: 400 mg Documented By: ANGELIQUE Ferrous Sulfate (Ferrous Sulfate 324 Mg Tablet.Dr) 324 mg PO DAILY [facility] Last Admin: 09/01/22 09:18 Dose: 324 mg Documented By: ANGELIQUE Fluticasone/Vilanterol (Fluticasone/Vilanterol 100/25 Blst.W.Dev) 1 puff INHALE RDAILY [facility] Last Admin: 09/01/22 08:18 Dose: 1 puff Documented By: PRISCILA Gabapentin (Gabapentin 100 Mg Capsule) 100 mg PO BID [facility] Last Admin: 09/01/22 09:18 Dose: 100 mg Documented By: ANGELIQUE Hydralazine HCl (Hydralazine Hcl 25 Mg Tablet) 25 mg PO TID [facility]; Protocol Last Admin: 09/01/22 09:20 Dose: 25 mg Documented By: ANGELIQUE Hydromorphone HCl (Hydromorphone Hcl 0.5 Mg/0.5 Ml Syringe) 0.25 mg IVPUSH Q2H PRN; Protocol PRN Reason: Pain, Moderate (Pain Scale 4-6 Sodium Chloride (Ns) 1,000 mls @ 50 mls/hr IVCONT .Q20H [facility] Last Admin: 09/01/22 09:12 Dose: 50 mls/hr Documented By: ANGELIQUE Levothyroxine Sodium (Levothyroxine Sodium 25 Mcg Tablet) 25 mcg PO DAILY@0600 [facility] Last Admin: 09/01/22 05:48 Dose: 25 mcg Documented By: SHERITA Loratadine (Loratadine 10 Mg Tablet) 10 mg PO DAILY [facility] Last Admin: 09/01/22 09:18 Dose: 10 mg Documented By: ANGELIQUE Metoprolol Tartrate (Metoprolol Tartrate 25 Mg Tablet) 25 mg PO BID [facility]; Protocol Last Admin: 09/01/22 09:19 Dose: 25 mg Documented By: ANGELIQUE Montelukast Sodium (Montelukast Sodium 10 Mg Tablet) 10 mg PO BEDTIME [facility] Last Admin: 08/31/22 20:17 Dose: 10 mg Documented By: SHERITA Non-Formulary Medication (Pantoprazole) 40 mg PO DAILY@0630 [facility] Last Admin: 09/01/22 05:43 Dose: Not Given Documented By: SHERITA Non-Admin Reason: Duplicate Order Nystatin (Nystatin Cream 15 Gm Tube) 1 appl TOPICAL BID [facility]; Protocol Last Admin: 09/01/22 09:24 Dose: 1 appl Documented By: ANGELIQUE Ondansetron HCl (Ondansetron Hcl 4 Mg/2 Ml Vial) 4 mg IVPUSH Q6H PRN PRN Reason: Nausea and Vomiting Pantoprazole Sodium (Pantoprazole Sodium 40 Mg/10 Ml Vial) 40 mg IVPUSH DAILY@0630 [facility] Last Admin: 09/01/22 05:48 Dose: 40 mg Documented By: SHERITA Pharmacy Consult (Consult Rx Perform Med Rec) 1 each MISCELLANE ONCE PRN PRN Reason: Consult order Sevelamer Carbonate (Sevelamer Carbonate Tablet 800 Mg Tablet) 800 mg PO TIDWM [facility] Last Admin: 09/01/22 11:49 Dose: Not Given Documented By: ANGELIQUE Non-Admin Reason: NPO Comments: NPO, no meal consuming Sodium Chloride (0.9 % Sodium Chloride Flush 3 Ml Syringe) 3 ml IVFLUSH QSHIFT [facility] Last Admin: 09/01/22 09:11 Dose: 3 ml Documented By: ANGELIQUE Labs 09/01/22 06:17 09/01/22 06:17 Labs: Laboratory Results - last 24 hr 08/31/22 08/31/22 09/01/22 08:34 17:55 06:17 MCV 95.7 95.4 MCH 30.9 30.0 MCHC 32.2 31.4 RDW 15.1 15.1 Plt Count 185 181 MPV 9.9 10.4 Immature Gran % (Auto) 1.0 H 0.7 H Neut % (Auto) 91.2 H 83.2 H Lymph % (Auto) 3.0 L 6.2 L Crowley % (Auto) 4.5 8.6 Eos % (Auto) 0.1 0.8 Baso % (Auto) 0.2 0.5 Lymph # (Auto) 0.4 L 0.7 L Crowley # (Auto) 0.6 0.9 Eos # (Auto) 0.0 0.1 Baso # (Auto) 0.0 0.1 Abs Immat Gran (auto) 0.12 H 0.07 H Absolute Neuts (auto) 11.5 H 8.9 H Absolute Nucleated RBC 0.000 0.000 Nucleated RBC % (auto) 0.0 0.0 Smear Tech's Comments VERIFIED Anion Gap Estim Creat Clear Calc Estimated GFR Random Glucose Estimat Average Glucose 143 Hemoglobin A1c % 6.6 Calcium Total Bilirubin AST ALT Alkaline Phosphatase Total Protein Albumin 09/01/22 06:17 MCV MCH MCHC RDW Plt Count MPV Immature Gran % (Auto) Neut % (Auto) Lymph % (Auto) Crowley % (Auto) Eos % (Auto) Baso % (Auto) Lymph # (Auto) Crowley # (Auto) Eos # (Auto) Baso # (Auto) Abs Immat Gran (auto) Absolute Neuts (auto) Absolute Nucleated RBC Nucleated RBC % (auto) Smear Tech's Comments Anion Gap 14 Estim Creat Clear Calc 14.6 Estimated GFR 13 Random Glucose 168 H Estimat Average Glucose Hemoglobin A1c % Calcium 7.4 L Total Bilirubin 1.0 AST 85 H ALT 62 H Alkaline Phosphatase 275 H Total Protein 5.3 L Albumin 2.9 L Assessment and Plan (1) ESRD (end stage renal disease): Status: Acute (2) Postoperative hematoma involving digestive system following digestive system procedure: Status: Acute Plan Pt is a 77-year-old female with a PMH significant for end-stage renal disease on dialysis (//Fri), asthma/COPD overlap, paroxysal atrial fibrillation on Eliquis, anxiety, insulin-dependent DM 2 with polyneuropathy, anemia of chronic disease, CHF, hypothyroidism, HLD, and thrombosis of the jugular vein who presented to the ED with severe right-sided abdominal pain with nausea and vomiting x2 days. CT with evidence of large hematoma. Hospice consult for medical management. Postoperative hematoma Plan as per General surgery Pending US reading MRCP tomorrow NPO gentle fluids Small left pleural effusion stable, chronic no respiratory complaints chronic hyponatremia Sodium 131 Monitor BMP Paroxysmal AFib currently in sinus rhythm with first-degree heart block Hold Eliquis d/t bleed End stage renal disease on dialysis TTS HD had session on Friday. Nephrology following Insulin-dependent diabetes mellitus Hold home meds SSI, Lantus Moderate persistent asthma/COPD overlap syndrome Not in acute exacerbation Continue home inhalers Thank you for allowing us to participate in the care of this patient. We will continue follow during her stay Time Spent With Patient Time: Total time managing care of this patient today ____ minutes. Quality Stroke Does the patient have a stroke diagnosis?: No VTE Prior VTE?: No VTE Risk Level:: Surgical - moderate VTE Device Contraindication: N/A - Device Ordered VTE Drug Contraindication: Treatment Not Indicated
[2022-09-01 16:00] VITALS: BP 136/64; PULSE 65; RESP 18; TEMP 36.3; O2SAT 96
[2022-09-01 19:37] VITALS: BP 123/56; PULSE 58; RESP 17; TEMP 36.1; O2SAT 97
[2022-09-01] MEDS: Atorvastatin Calcium 40 MG TABLET PO (20:44)
[2022-09-01] MEDS: Montelukast Sodium 10 MG TABLET PO (20:45)
[2022-09-02 03:17] VITALS: BP 165/57; PULSE 68; RESP 17; TEMP 36.1; O2SAT 96
[2022-09-02] MEDS: 0.9 % Sodium Chloride 1,000 ML 50 ML IVCONT (03:19)
[2022-09-02] MEDS: Pantoprazole Sodium 40 MG/10 ML VIAL IVPUSH (05:44)
[2022-09-02] MEDS: Levothyroxine Sodium 25 MCG TABLET PO (05:44)
[2022-09-02 06:00] VITALS: BMI 32.5
[2022-09-02] MEDS: HYDROmorphone HCl 0.5 MG/0.5 ML SYRINGE 0.25 MG IVPUSH ×2 (06:30→23:54)
[2022-09-02 07:05] VITALS: BP 131/60; PULSE 67; RESP 18; TEMP 36.2; O2SAT 98
[2022-09-02 07:10] LABS: Hematocrit 22.4 % (37.0-47.0); Hemoglobin 7.3 g/dl (12.0-16.0); Mean Corpuscular HGB Conc 32.6 g/dl (31.0-35.0); Mean Corpuscular Hemoglobin 30.9 pg (27.0-33.0); Mean Corpuscular Volume 94.9 fL (80.0-98.0); PLT CLUMP 1; Red Blood Count 2.36 X10*6/uL (4.20-5.50); Red Cell Distribution Width 15.5 % (11.0-16.0)
[2022-09-02 07:35] VITALS: PULSE 92; RESP 18; O2SAT 96
[2022-09-02] MEDS: Fluticasone/Vilanterol 100/25 BLST.W.DEV 1 PUFF INHALE (07:35)
[2022-09-02 07:37] LABS: Blood Urea Nitrogen 22 mg/dL (9-16); Calcium 6.9 mg/dL (8.4-10.2); Creatinine Clr Calc Pharmacy 11.9; Estimated Glomerular Filt Rate 10; Glucose Random 102 mg/dL (60-115)
[2022-09-02 07:39] LABS: Anion Gap 19 (12-20); Carbon Dioxide 15 mmol/L (22-29); Chloride 103 mmol/L (96-108); Potassium 4.9 mmol/L (3.3-5.1); Sodium 132 mmol/L (135-145)
[2022-09-02 07:41] LABS: Platelet Count 161 X10*3/uL (160-400); White Blood Count 8.9 X10*3/uL (4.8-10.8)
--- NOTE | 2022-09-02 07:57 | PM.PNGS ---
Subjective Subjective Date of Service: 09/02/22 Interval history: Patient evaluated with the assistance of a medical insurance claims specialist (Dana). Events of the weekend noted; patient mainly complains of back pain this morning. She denies abdominal pain, nausea, vomiting or diarrhea. Does feel bloated but is passing gas. She is due for dialysis tomorrow. Physical Exam Vital Signs: Vital Signs: Last Vital Signs Temp 97.1 F 09/02/22 07:05 Pulse 92 09/02/22 07:35 Resp 18 09/02/22 07:35 BP 131/60 09/02/22 07:05 Pulse Ox 98 09/02/22 07:05 O2 Del Method 09/02/22 07:05 BMI result Body Mass Index 32.5 Const: General: no acute distress and tired appearing Nutritional Appearance: well nourished Orientation/consciousness: patient oriented x3 Eyes: General: appearance normal, both eyes and all related structures Resp: Effort & Inspection: normal respiratory effort Auscultation: clear to auscultation bilaterally GI: Inspection: Yes normal to inspection Palpation (GI): Soft to palpation, nontender, no guarding and not rigid Percussion: Yes tympanic to percussion Auscultation: normal bowel sounds Skin: Other: warm, dry, no rash Neuro: General: patient oriented x3 Extrem: General: Yes pedal edema Objective Data Active Medications Acetaminophen (Acetaminophen 325 Mg Tablet) 975 mg PO Q6H PRN PRN Reason: Pain, Mild (Pain Scale 1-3) Last Admin: 09/01/22 18:20 Dose: 975 mg Documented By: ANGELIQUE Albuterol Sulfate (Albuterol Sulfate 90 Mcg 8 Gm Inhaler) 2 puff INHALE Q6H PRN PRN Reason: shortness of breath or wheezing Atorvastatin Calcium (Atorvastatin Calcium 40 Mg Tablet) 40 mg PO BEDTIME [facility] Last Admin: 09/01/22 20:44 Dose: 40 mg Documented By: SUNSHINE Calcitriol (Calcitriol 0.25 Mcg Capsule) 0.5 mcg PO TuThSa@1800 [facility] Last Admin: 08/31/22 18:47 Dose: 0.5 mcg Documented By: ALEJANDRAQC Cyanocobalamin (Cyanocobalamin (Vitamin B-12) 1,000 Mcg/Ml Vial) 1,000 mcg IM Q28D [facility] Docusate Sodium (Docusate Sodium 100 Mg Capsule) 200 mg PO BID [facility] Last Admin: 09/01/22 20:47 Dose: Not Given Documented By: SUNSHINE Non-Admin Reason: Patient Refused Dronedarone (Dronedarone Hcl 400 Mg Tablet) 400 mg PO BID [facility] Last Admin: 09/01/22 20:45 Dose: 400 mg Documented By: SUNSHINE Ferrous Sulfate (Ferrous Sulfate 324 Mg Tablet.Dr) 324 mg PO DAILY [facility] Last Admin: 09/01/22 09:18 Dose: 324 mg Documented By: ANGELIQUE Fluticasone/Vilanterol (Fluticasone/Vilanterol 100/25 Blst.W.Dev) 1 puff INHALE RDAILY [facility] Last Admin: 09/02/22 07:35 Dose: 1 puff Documented By: NADEEN Gabapentin (Gabapentin 100 Mg Capsule) 100 mg PO BID [facility] Last Admin: 09/01/22 20:44 Dose: 100 mg Documented By: SUSNHINE Hydralazine HCl (Hydralazine Hcl 25 Mg Tablet) 25 mg PO TID [facility]; Protocol Last Admin: 09/01/22 20:44 Dose: 25 mg Documented By: SUNSHINE Hydromorphone HCl (Hydromorphone Hcl 0.5 Mg/0.5 Ml Syringe) 0.25 mg IVPUSH Q2H PRN; Protocol PRN Reason: Pain, Moderate (Pain Scale 4-6 Last Admin: 09/02/22 06:30 Dose: 0.25 mg Documented By: SUNSHINE Sodium Chloride (Ns) 1,000 mls @ 50 mls/hr IVCONT .Q20H [facility] Last Admin: 09/02/22 03:19 Dose: 50 mls/hr Documented By: SUNSHINE Levothyroxine Sodium (Levothyroxine Sodium 25 Mcg Tablet) 25 mcg PO DAILY@0600 [facility] Last Admin: 09/02/22 05:44 Dose: 25 mcg Documented By: SUNSHINE Loratadine (Loratadine 10 Mg Tablet) 10 mg PO DAILY [facility] Last Admin: 09/01/22 09:18 Dose: 10 mg Documented By: ANGELIQUE Metoprolol Tartrate (Metoprolol Tartrate 25 Mg Tablet) 25 mg PO BID [facility]; Protocol Last Admin: 09/01/22 20:52 Dose: Not Given Documented By: SUNSHINE Non-Admin Reason: Decreased Heart Rate Montelukast Sodium (Montelukast Sodium 10 Mg Tablet) 10 mg PO BEDTIME [facility] Last Admin: 09/01/22 20:45 Dose: 10 mg Documented By: SUNSHINE Non-Formulary Medication (Pantoprazole) 40 mg PO DAILY@0630 [facility] Last Admin: 09/02/22 05:53 Dose: Not Given Documented By: SUNSHINE Non-Admin Reason: Duplicate Order Nystatin (Nystatin Cream 15 Gm Tube) 1 appl TOPICAL BID [facility]; Protocol Last Admin: 09/01/22 20:45 Dose: 1 appl Documented By: SUNSHINE Ondansetron HCl (Ondansetron Hcl 4 Mg/2 Ml Vial) 4 mg IVPUSH Q6H PRN PRN Reason: Nausea and Vomiting Pantoprazole Sodium (Pantoprazole Sodium 40 Mg/10 Ml Vial) 40 mg IVPUSH DAILY@0630 [facility] Last Admin: 09/02/22 05:44 Dose: 40 mg Documented By: SUNSHINE Pharmacy Consult (Consult Rx Perform Med Rec) 1 each MISCELLANE ONCE PRN PRN Reason: Consult order Sevelamer Carbonate (Sevelamer Carbonate Tablet 800 Mg Tablet) 800 mg PO TIDWM [facility] Last Admin: 09/01/22 16:00 Dose: Not Given Documented By: ANGELIQUE Non-Admin Reason: NPO Sodium Chloride (0.9 % Sodium Chloride Flush 3 Ml Syringe) 3 ml IVFLUSH QSHIFT [facility] Last Admin: 09/02/22 07:54 Dose: Not Given Documented By: DOUG Non-Admin Reason: IV Running Labs 09/02/22 05:56 09/02/22 05:56 Labs: Laboratory Results - last 24 hr 09/01/22 09/02/22 09/02/22 06:17 05:56 05:56 MCV 94.9 MCH 30.9 MCHC 32.6 RDW 15.5 Plt Count 161 MPV Not Reportable Absolute Nucleated RBC 0.000 Nucleated RBC % (auto) 0.0 Anion Gap 14 19 Estim Creat Clear Calc 11.9 Estimated GFR 10 Random Glucose 102 Calcium 6.9 L D Procedures Date of Service Date of Service: 09/02/22 Progress Note: A&P Assessment and plan (1) ESRD (end stage renal disease): Status: Acute (2) Chronic anticoagulation: Status: Acute (3) Postoperative hematoma involving digestive system following digestive system procedure: Status: Acute (4) S/P laparoscopic cholecystectomy: Status: Acute Plan Patient returned to the ED with nausea and vomiting over the weekend and was found to have evidence of an intra-abdominal hematoma below the left lobe of the liver with some fluid in the pelvis as well. Patient's oral anticoagulation was held. H/H this morning unchanged from previous study (not sure if patient received a transfusion in between--none recorded in I/O's). Patient is awaiting MRCP to evaluate for possible CBD stone. If negative, will start clear liquids. Recheck labs in AM. Time Spent With Patient Time: Total time managing care of this patient today ____ minutes. Quality Stroke Does the patient have a stroke diagnosis?: No VTE Prior VTE?: No VTE Risk Level:: Surgical - moderate VTE Device Contraindication: N/A - Device Ordered VTE Drug Contraindication: Treatment Not Indicated
[2022-09-02] MEDS: Docusate Sodium 100 MG CAPSULE 200 MG PO ×2 (08:19→21:13)
[2022-09-02] MEDS: Metoprolol Tartrate 25 MG TABLET PO ×2 (08:19→21:13)
[2022-09-02] MEDS: Gabapentin 100 MG CAPSULE PO ×2 (08:20→21:13)
[2022-09-02] MEDS: Sevelamer Carbonate Tablet 800 MG TABLET PO ×3 (08:20→15:59)
[2022-09-02] MEDS: Ferrous Sulfate 324 MG TABLET.DR PO (08:20)
[2022-09-02] MEDS: Loratadine 10 MG TABLET PO (08:21)
[2022-09-02] MEDS: Dronedarone HCl 400 MG TABLET PO ×2 (08:21→21:13)
[2022-09-02] MEDS: hydrALAZINE HCl 25 MG TABLET PO ×3 (08:21→21:13)
[2022-09-02] MEDS: Nystatin Cream 15 GM TUBE 1 APPL TOPICAL ×2 (08:21→21:19)
[2022-09-02 08:47] LABS: Alanine Aminotransferase 49 U/L (0-31); Albumin Level 2.8 g/dL (3.5-5.0); Alkaline Phosphatase 247 U/L (39-117); Aspartate Amino Transferase 54 U/L (5-31); Bilirubin Direct 0.4 mg/dL (0.0-0.5); Total Protein 5.3 g/dL (6.5-8.0)
--- NOTE | 2022-09-02 11:27 | P.PNIM_ITS ---
Subjective Subjective Date of Service: 09/02/22 Interval History: Looks comfortable Denies any pain or SOB stable H&H No reported overnight events Review of Systems Review of Systems: Yes all other systems are reviewed and are negative Physical Exam Vital Signs: Vital Signs: Last Vital Signs Temp 97.1 F 09/02/22 07:05 Pulse 92 09/02/22 07:35 Resp 18 09/02/22 07:35 BP 131/60 09/02/22 07:05 Pulse Ox 98 09/02/22 07:05 O2 Del Method 09/02/22 07:05 BMI result Body Mass Index 32.5 Const: Other: Constitutional : Awake, interactive, not in distress Neck : Normal inspection, Supple Cardiovascular : RRR, no JVP, no lower extremity edema Respiratory : good bilateral air entry, no crackles, wheezes or rhonchi Gastrointestinal: soft, lax, Normal bowel sounds, Non tender Skin : Warm, Dry Neurological : Alert & oriented x3, No focal deficit Objective Data Active Medications Acetaminophen (Acetaminophen 325 Mg Tablet) 975 mg PO Q6H PRN PRN Reason: Pain, Mild (Pain Scale 1-3) Last Admin: 09/01/22 18:20 Dose: 975 mg Documented By: ANGELIQUE Albuterol Sulfate (Albuterol Sulfate 90 Mcg 8 Gm Inhaler) 2 puff INHALE Q6H PRN PRN Reason: shortness of breath or wheezing Atorvastatin Calcium (Atorvastatin Calcium 40 Mg Tablet) 40 mg PO BEDTIME [facility] Last Admin: 09/01/22 20:44 Dose: 40 mg Documented By: SUNSHINE Calcitriol (Calcitriol 0.25 Mcg Capsule) 0.5 mcg PO TuThSa@1800 [facility] Last Admin: 08/31/22 18:47 Dose: 0.5 mcg Documented By: SHERITA Cyanocobalamin (Cyanocobalamin (Vitamin B-12) 1,000 Mcg/Ml Vial) 1,000 mcg IM Q28D [facility] Docusate Sodium (Docusate Sodium 100 Mg Capsule) 200 mg PO BID [facility] Last Admin: 09/02/22 08:19 Dose: 200 mg Documented By: DOUG Dronedarone (Dronedarone Hcl 400 Mg Tablet) 400 mg PO BID [facility] Last Admin: 09/02/22 08:21 Dose: 400 mg Documented By: DOUG Ferrous Sulfate (Ferrous Sulfate 324 Mg Tablet.Dr) 324 mg PO DAILY [facility] Last Admin: 09/02/22 08:20 Dose: 324 mg Documented By: DOUG Fluticasone/Vilanterol (Fluticasone/Vilanterol 100/25 Blst.W.Dev) 1 puff INHALE RDAILY [facility] Last Admin: 09/02/22 07:35 Dose: 1 puff Documented By: NADEEN Gabapentin (Gabapentin 100 Mg Capsule) 100 mg PO BID [facility] Last Admin: 09/02/22 08:20 Dose: 100 mg Documented By: DOUG Hydralazine HCl (Hydralazine Hcl 25 Mg Tablet) 25 mg PO TID [facility]; Protocol Last Admin: 09/02/22 08:21 Dose: 25 mg Documented By: DOUG Hydromorphone HCl (Hydromorphone Hcl 0.5 Mg/0.5 Ml Syringe) 0.25 mg IVPUSH Q2H PRN; Protocol PRN Reason: Pain, Moderate (Pain Scale 4-6 Last Admin: 09/02/22 06:30 Dose: 0.25 mg Documented By: SUNSHINE Sodium Chloride (Ns) 1,000 mls @ 50 mls/hr IVCONT .Q20H [facility] Last Admin: 09/02/22 03:19 Dose: 50 mls/hr Documented By: SUNSHINE Levothyroxine Sodium (Levothyroxine Sodium 25 Mcg Tablet) 25 mcg PO DAILY@0600 [facility] Last Admin: 09/02/22 05:44 Dose: 25 mcg Documented By: SUNSHINE Loratadine (Loratadine 10 Mg Tablet) 10 mg PO DAILY [facility] Last Admin: 09/02/22 08:21 Dose: 10 mg Documented By: DOUG Metoprolol Tartrate (Metoprolol Tartrate 25 Mg Tablet) 25 mg PO BID [facility]; Protocol Last Admin: 09/02/22 08:19 Dose: 25 mg Documented By: DOUG Montelukast Sodium (Montelukast Sodium 10 Mg Tablet) 10 mg PO BEDTIME [facility] Last Admin: 09/01/22 20:45 Dose: 10 mg Documented By: SUNSHINE Non-Formulary Medication (Pantoprazole) 40 mg PO DAILY@0630 [facility] Last Admin: 09/02/22 05:53 Dose: Not Given Documented By: SUNSHINE Non-Admin Reason: Duplicate Order Nystatin (Nystatin Cream 15 Gm Tube) 1 appl TOPICAL BID [facility]; Protocol Last Admin: 09/02/22 08:21 Dose: 1 appl Documented By: DOUG Ondansetron HCl (Ondansetron Hcl 4 Mg/2 Ml Vial) 4 mg IVPUSH Q6H PRN PRN Reason: Nausea and Vomiting Pantoprazole Sodium (Pantoprazole Sodium 40 Mg/10 Ml Vial) 40 mg IVPUSH DAILY@0630 [facility] Last Admin: 09/02/22 05:44 Dose: 40 mg Documented By: SUNSHINE Pharmacy Consult (Consult Rx Perform Med Rec) 1 each MISCELLANE ONCE PRN PRN Reason: Consult order Sevelamer Carbonate (Sevelamer Carbonate Tablet 800 Mg Tablet) 800 mg PO TIDWM [facility] Last Admin: 09/02/22 08:20 Dose: 800 mg Documented By: DOUG Sodium Chloride (0.9 % Sodium Chloride Flush 3 Ml Syringe) 3 ml IVFLUSH QSHIFT [facility] Last Admin: 09/02/22 07:54 Dose: Not Given Documented By: DOUG Non-Admin Reason: IV Running Labs 09/02/22 05:56 09/02/22 05:56 Labs: Laboratory Results - last 24 hr 09/02/22 09/02/22 05:56 05:56 MCV 94.9 MCH 30.9 MCHC 32.6 RDW 15.5 Plt Count 161 MPV Not Reportable Absolute Nucleated RBC 0.000 Nucleated RBC % (auto) 0.0 Anion Gap 19 Estim Creat Clear Calc 11.9 Estimated GFR 10 Random Glucose 102 Calcium 6.9 L D Total Bilirubin 1.0 Direct Bilirubin 0.4 AST 54 H ALT 49 H Alkaline Phosphatase 247 H Total Protein 5.3 L Albumin 2.8 L Assessment and Plan (1) ESRD (end stage renal disease): Status: Acute (2) Postoperative hematoma involving digestive system following digestive system procedure: Status: Acute (3) Chronic hyponatremia: Status: Acute Plan Pt is a 77-year-old female with a PMH significant for end-stage renal disease on dialysis (//Fri), asthma/COPD overlap, paroxysal atrial fibrillation on Eliquis, anxiety, insulin-dependent DM 2 with polyneuropathy, anemia of chronic disease, CHF, hypothyroidism, HLD, and thrombosis of the jugular vein who presented to the ED with severe right-sided abdominal pain with nausea and vomiting x2 days. CT with evidence of large hematoma. Hospice consult for medical management. Postoperative hematoma Plan as per General surgery MRCP today NPO gentle fluids acute on chronic anemia Hb stable around 7.3 no need for transfusion unless <7 nephro following Small left pleural effusion stable, chronic no respiratory complaints chronic hyponatremia Sodium 131 Monitor BMP Paroxysmal AFib currently in sinus rhythm with first-degree heart block Hold Eliquis d/t bleed End stage renal disease on dialysis TTS HD had session on Friday. Nephrology following Insulin-dependent diabetes mellitus Hold home meds SSI, Lantus Moderate persistent asthma/COPD overlap syndrome Not in acute exacerbation Continue home inhalers Chronic hyponatremia stable around 130 Thank you for allowing us to participate in the care of this patient. We will continue follow during her stay Time Spent With Patient Time: Total time managing care of this patient today ____ minutes. Quality Stroke Does the patient have a stroke diagnosis?: No VTE Prior VTE?: No VTE Risk Level:: Surgical - moderate VTE Device Contraindication: N/A - Device Ordered VTE Drug Contraindication: Treatment Not Indicated
--- NOTE | 2022-09-02 14:07 | MHC.CM.PN ---
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
--- NOTE | 2022-09-02 15:11 | PM.PNNEP ---
Subjective Subjective Date of Service: 09/02/22 Interval history: No reported overnight events; All recent data reviewed Physical Exam Vital Signs: Vital Signs: Last Vital Signs Temp 97.1 F 09/02/22 07:05 Pulse 92 09/02/22 07:35 Resp 18 09/02/22 07:35 BP 131/60 09/02/22 07:05 Pulse Ox 98 09/02/22 07:05 O2 Del Method 09/02/22 07:05 BMI result Body Mass Index 32.5 Const: General: no acute distress Eyes: EOM: EOMs intact bilaterally Neck: Neck: Yes supple Resp: Auscultation: diminished lung sounds Cardio: Rate: regular rate GI: Palpation (GI): Soft to palpation Neuro: General: moves all extremities Objective Data Labs 09/02/22 05:56 09/02/22 05:56 Labs: Laboratory Results - last 24 hr 09/02/22 09/02/22 05:56 05:56 WBC 8.9 RBC 2.36 L Hgb 7.3 L Hct 22.4 L MCV 94.9 MCH 30.9 MCHC 32.6 RDW 15.5 Plt Count 161 MPV Not Reportable Absolute Nucleated RBC 0.000 Nucleated RBC % (auto) 0.0 Sodium 132 L Potassium 4.9 Chloride 103 Carbon Dioxide 15 L Anion Gap 19 BUN 22 H Creatinine 4.17 H* Estim Creat Clear Calc 11.9 Estimated GFR 10 Random Glucose 102 Calcium 6.9 L D Total Bilirubin 1.0 Direct Bilirubin 0.4 AST 54 H ALT 49 H Alkaline Phosphatase 247 H Total Protein 5.3 L Albumin 2.8 L Procedures Date of Service Date of Service: 09/02/22 Assessment & Plan Assessment and plan (1) ESRD needing dialysis: Status: Acute Assessment and Plan: Continue HD per her schedule Due HD tomorrow Vol Removal as tolerated No Heparin during Hd Epo x 1 dose given last week Shall closely follow up Progress Note: Quality Stroke Does the patient have a stroke diagnosis?: No
[2022-09-02 15:39] VITALS: BP 142/56; PULSE 62; RESP 17; TEMP 36; O2SAT 96
[2022-09-02 20:00] VITALS: BP 121/80; PULSE 64; RESP 18; TEMP 36.2; O2SAT 97
[2022-09-02] MEDS: Montelukast Sodium 10 MG TABLET PO (21:13)
[2022-09-02] MEDS: Atorvastatin Calcium 40 MG TABLET PO (21:13)
[2022-09-02 21:17] VITALS: PULSE 68
[2022-09-03] MEDS: 0.9 % Sodium Chloride 1,000 ML 50 ML IVCONT (00:05)
[2022-09-03 03:11] VITALS: BP 136/67; PULSE 64; RESP 17; TEMP 36.3; O2SAT 96
[2022-09-03] MEDS: Levothyroxine Sodium 25 MCG TABLET PO (05:30)
[2022-09-03] MEDS: Pantoprazole Sodium 40 MG/10 ML VIAL IVPUSH (05:30)
[2022-09-03 06:00] VITALS: BMI 32.1
[2022-09-03 06:57] LABS: Hematocrit 24.6 % (37.0-47.0); Hemoglobin 7.6 g/dl (12.0-16.0); Mean Corpuscular HGB Conc 30.9 g/dl (31.0-35.0); Mean Corpuscular Hemoglobin 29.8 pg (27.0-33.0); Mean Corpuscular Volume 96.5 fL (80.0-98.0); Mean Platelet Volume 10.5 fL (9.4-12.3); Platelet Count 205 X10*3/uL (160-400); Red Blood Count 2.55 X10*6/uL (4.20-5.50); Red Cell Distribution Width 15.4 % (11.0-16.0); White Blood Count 9.1 X10*3/uL (4.8-10.8)
[2022-09-03 07:25] LABS: Alanine Aminotransferase 39 U/L (0-31); Albumin Level 2.9 g/dL (3.5-5.0); Alkaline Phosphatase 255 U/L (39-117); Aspartate Amino Transferase 35 U/L (5-31); Bilirubin Direct 0.3 mg/dL (0.0-0.5); Total Protein 5.5 g/dL (6.5-8.0)
[2022-09-03 07:54] LABS: Anion Gap 18 (12-20); Blood Urea Nitrogen 28 mg/dL (9-16); Calcium 7.1 mg/dL (8.4-10.2); Carbon Dioxide 15 mmol/L (22-29); Chloride 104 mmol/L (96-108); Creatinine Clr Calc Pharmacy 9.3; Estimated Glomerular Filt Rate 8; Glucose Random 127 mg/dL (60-115); Potassium 5.3 mmol/L (3.3-5.1); Sodium 132 mmol/L (135-145)
[2022-09-03 07:56] VITALS: BP 130/60; PULSE 64; RESP 18; TEMP 36.6; O2SAT 97
[2022-09-03] MEDS: Fluticasone/Vilanterol 100/25 BLST.W.DEV 1 PUFF INHALE (08:29)
[2022-09-03 08:31] VITALS: PULSE 64; RESP 20; O2SAT 96
[2022-09-03] MEDS: Metoprolol Tartrate 25 MG TABLET PO ×2 (08:47→20:44)
[2022-09-03] MEDS: Dronedarone HCl 400 MG TABLET PO ×2 (08:47→20:44)
[2022-09-03] MEDS: Gabapentin 100 MG CAPSULE PO ×2 (08:47→20:44)
[2022-09-03] MEDS: hydrALAZINE HCl 25 MG TABLET PO ×3 (08:47→20:44)
[2022-09-03] MEDS: Loratadine 10 MG TABLET PO (08:47)
[2022-09-03] MEDS: Sevelamer Carbonate Tablet 800 MG TABLET PO ×2 (08:47→17:37)
[2022-09-03] MEDS: Docusate Sodium 100 MG CAPSULE 200 MG PO ×2 (08:48→20:44)
[2022-09-03] MEDS: Nystatin Cream 15 GM TUBE 1 APPL TOPICAL ×2 (08:48→20:45)
[2022-09-03] MEDS: Ferrous Sulfate 324 MG TABLET.DR PO (08:48)
--- NOTE | 2022-09-03 11:42 | P.PNIM_ITS ---
Subjective Subjective Date of Service: 09/03/22 Interval History: Looks comfortable Denies any RUQ pain or SOB , fever or chills stable H&H at 77.6 No reported overnight events Physical Exam Vital Signs: Vital Signs: Last Vital Signs Temp 97.9 F 09/03/22 07:56 Pulse 64 09/03/22 08:31 Resp 20 09/03/22 08:31 BP 130/60 09/03/22 07:56 Pulse Ox 97 09/03/22 07:56 O2 Del Method 09/03/22 07:56 BMI result Body Mass Index 32.1 Const: Other: Constitutional : Awake, interactive, not in distress Neck : Normal inspection, Supple Cardiovascular : RRR, no JVP, no lower extremity edema Respiratory : good bilateral air entry, no crackles, wheezes or rhonchi Gastrointestinal: soft, lax, Normal bowel sounds, Non tender Skin : Warm, Dry Neurological : Alert & oriented x3, No focal deficit Objective Data Active Medications Acetaminophen (Acetaminophen 325 Mg Tablet) 975 mg PO Q6H PRN PRN Reason: Pain, Mild (Pain Scale 1-3) Last Admin: 09/01/22 18:20 Dose: 975 mg Documented By: ANGELIQUE Albuterol Sulfate (Albuterol Sulfate 90 Mcg 8 Gm Inhaler) 2 puff INHALE Q6H PRN PRN Reason: shortness of breath or wheezing Atorvastatin Calcium (Atorvastatin Calcium 40 Mg Tablet) 40 mg PO BEDTIME [facility] Last Admin: 09/02/22 21:13 Dose: 40 mg Documented By: BRADLEY Calcitriol (Calcitriol 0.25 Mcg Capsule) 0.5 mcg PO TuThSa@1800 [facility] Last Admin: 08/31/22 18:47 Dose: 0.5 mcg Documented By: SHERITA Cyanocobalamin (Cyanocobalamin (Vitamin B-12) 1,000 Mcg/Ml Vial) 1,000 mcg IM Q28D [facility] Docusate Sodium (Docusate Sodium 100 Mg Capsule) 200 mg PO BID [facility] Last Admin: 09/03/22 08:48 Dose: 200 mg Documented By: DOUG Dronedarone (Dronedarone Hcl 400 Mg Tablet) 400 mg PO BID [facility] Last Admin: 09/03/22 08:47 Dose: 400 mg Documented By: DOUG Ferrous Sulfate (Ferrous Sulfate 324 Mg Tablet.Dr) 324 mg PO DAILY [facility] Last Admin: 09/03/22 08:48 Dose: 324 mg Documented By: DOUG Fluticasone/Vilanterol (Fluticasone/Vilanterol 100/25 Blst.W.Dev) 1 puff INHALE RDAILY [facility] Last Admin: 09/03/22 08:29 Dose: 1 puff Documented By: LAURA Gabapentin (Gabapentin 100 Mg Capsule) 100 mg PO BID [facility] Last Admin: 09/03/22 08:47 Dose: 100 mg Documented By: DOUG Hydralazine HCl (Hydralazine Hcl 25 Mg Tablet) 25 mg PO TID [facility]; Protocol Last Admin: 09/03/22 08:47 Dose: 25 mg Documented By: DOUG Hydromorphone HCl (Hydromorphone Hcl 0.5 Mg/0.5 Ml Syringe) 0.25 mg IVPUSH Q2H PRN; Protocol PRN Reason: Pain, Moderate (Pain Scale 4-6 Last Admin: 09/02/22 23:54 Dose: 0.25 mg Documented By: BLAKE Levothyroxine Sodium (Levothyroxine Sodium 25 Mcg Tablet) 25 mcg PO DAILY@0600 [facility] Last Admin: 09/03/22 05:30 Dose: 25 mcg Documented By: BLAKE Loratadine (Loratadine 10 Mg Tablet) 10 mg PO DAILY [facility] Last Admin: 09/03/22 08:47 Dose: 10 mg Documented By: DOUG Metoprolol Tartrate (Metoprolol Tartrate 25 Mg Tablet) 25 mg PO BID [facility]; Angel col Last Admin: 09/03/22 08:47 Dose: 25 mg Documented By: DOUG Montelukast Sodium (Montelukast Sodium 10 Mg Tablet) 10 mg PO BEDTIME [facility] Last Admin: 09/02/22 21:13 Dose: 10 mg Documented By: BRADLEY Non-Formulary Medication (Pantoprazole) 40 mg PO DAILY@0630 [facility] Last Admin: 09/03/22 05:31 Dose: Not Given Documented By: BLAKE Non-Admin Reason: 2 orders, given iv route Nystatin (Nystatin Cream 15 Gm Tube) 1 appl TOPICAL BID [facility]; Protocol Last Admin: 09/03/22 08:48 Dose: 1 appl Documented By: DOUG Ondansetron HCl (Ondansetron Hcl 4 Mg/2 Ml Vial) 4 mg IVPUSH Q6H PRN PRN Reason: Nausea and Vomiting Pantoprazole Sodium (Pantoprazole Sodium 40 Mg/10 Ml Vial) 40 mg IVPUSH DAILY@0630 [facility] Last Admin: 09/03/22 05:30 Dose: 40 mg Documented By: BLAKE Pharmacy Consult (Consult Rx Perform Med Rec) 1 each MISCELLANE ONCE PRN PRN Reason: Consult order Sevelamer Carbonate (Sevelamer Carbonate Tablet 800 Mg Tablet) 800 mg PO TIDWM [facility] Last Admin: 09/03/22 08:47 Dose: 800 mg Documented By: DOUG Sodium Chloride (0.9 % Sodium Chloride Flush 3 Ml Syringe) 3 ml IVFLUSH QSHIFT [facility] Last Admin: 09/03/22 07:51 Dose: Not Given Documented By: DOUG Non-Admin Reason: IV Running Labs 09/03/22 06:34 09/03/22 06:34 Labs: Laboratory Results - last 24 hr 09/03/22 09/03/22 09/03/22 06:34 06:34 06:34 MCV 96.5 MCH 29.8 MCHC 30.9 L RDW 15.4 Plt Count 205 D MPV 10.5 Absolute Nucleated RBC 0.000 Nucleated RBC % (auto) 0.0 Anion Gap 18 Estim Creat Clear Calc 9.3 Estimated GFR 8 Random Glucose 127 H Calcium 7.1 L Total Bilirubin 1.0 Direct Bilirubin 0.3 AST 35 H ALT 39 H Alkaline Phosphatase 255 H Total Protein 5.5 L Albumin 2.9 L Assessment and Plan (1) Chronic hyponatremia: Status: Acute (2) ESRD (end stage renal disease): Status: Acute Plan Pt is a 77-year-old female with a PMH significant for end-stage renal disease on dialysis (/Fri), asthma/COPD overlap, paroxysal atrial fibrillation on Eliquis, anxiety, insulin-dependent DM 2 with polyneuropathy, anemia of chronic disease, CHF, hypothyroidism, HLD, and thrombosis of the jugular vein who pres ented to the ED with severe right-sided abdominal pain with nausea and vomiting x2 days. CT with evidence of large hematoma. Hospice consult for medical management. Postoperative hematoma Plan as per General surgery MRCP showing RUQ large collection, suggestive of postoperative hematoma DC fluids acute on chronic anemia Hb stable around 7.6, did not require blood transfusion no need for transfusion unless <7 nephro following Small left pleural effusion stable, chronic no respiratory complaints chronic hyponatremia Sodium 131 Monitor BMP Paroxysmal AFib currently in sinus rhythm with first-degree heart block Hold Eliquis d/t bleed End stage renal disease on dialysis TTS HD had session on Friday. Nephrology following Insulin-dependent diabetes mellitus Hold home meds SSI, Lantus Moderate persistent asthma/COPD overlap syndrome Not in acute exacerbation Continue home inhalers Thank you for allowing us to participate in the care of this patient. will sign off, please contact hospitalist team with any further questions Time Spent With Patient Time: Total time managing care of this patient today ____ minutes. Quality Stroke Does the patient have a stroke diagnosis?: No VTE Prior VTE?: No VTE Risk Level:: Surgical - moderate VTE Device Contraindication: N/A - Device Ordered VTE Drug Contraindication: Treatment Not Indicated
[2022-09-03 13:53] VITALS: BP 143/63; PULSE 72; RESP 18; TEMP 37.2; O2SAT 96
--- NOTE | 2022-09-03 15:08 | PM.PNNEP ---
Subjective Subjective Date of Service: 09/03/22 Interval history: Seen on HD. All recent data reviewed. D/W HD RN Physical Exam Vital Signs: Vital Signs: Last Vital Signs Temp 98.9 F 09/03/22 13:53 Pulse 72 09/03/22 13:53 Resp 18 09/03/22 13:53 BP 143/63 H 09/03/22 13:53 Pulse Ox 96 09/03/22 13:53 O2 Del Method 09/03/22 13:53 BMI result Body Mass Index 32.1 Const: General: no acute distress Eyes: EOM: EOMs intact bilaterally Resp: Auscultation: diminished lung sounds Cardio: Rate: regular rate GI: Palpation (GI): Soft to palpation Neuro: General: moves all extremities Objective Data Labs 09/03/22 06:34 09/03/22 06:34 Labs: Laboratory Results - last 24 hr 09/03/22 09/03/22 09/03/22 06:34 06:34 06:34 WBC 9.1 RBC 2.55 L Hgb 7.6 L Hct 24.6 L MCV 96.5 MCH 29.8 MCHC 30.9 L RDW 15.4 Plt Count 205 D MPV 10.5 Absolute Nucleated RBC 0.000 Nucleated RBC % (auto) 0.0 Sodium 132 L Potassium 5.3 H Chloride 104 Carbon Dioxide 15 L Anion Gap 18 BUN 28 H Creatinine 5.29 H* Estim Creat Clear Calc 9.3 Estimated GFR 8 Random Glucose 127 H Calcium 7.1 L Total Bilirubin 1.0 Direct Bilirubin 0.3 AST 35 H ALT 39 H Alkaline Phosphatase 255 H Total Protein 5.5 L Albumin 2.9 L Procedures Date of Service Date of Service: 09/03/22 Assessment & Plan Assessment and plan (1) ESRD needing dialysis: Status: Acute Assessment and Plan: Continue HD per her schedule Seen on HD this AM Vol Removal as tolerated No Heparin during Hd Epo x 1 dose given last week Shall closely follow up Progress Note: Quality Stroke Does the patient have a stroke diagnosis?: No
[2022-09-03] MEDS: 0.9 % Sodium Chloride Flush 3 ML SYRINGE IVFLUSH (15:32)
[2022-09-03 16:00] VITALS: BP 131/75; PULSE 68; RESP 18; TEMP 36.8; O2SAT 98
[2022-09-03 16:28] LABS: Glucose, Whole Blood 217 mg/dL (60-115)
--- NOTE | 2022-09-03 16:29 | P.PNGS_ITS ---
Subjective Subjective Date of Service: 09/03/22 Interval history: Patient denies abdominal pain; HD today Physical Exam Vital Signs: Vital Signs: Last Vital Signs Temp 98.9 F 09/03/22 13:53 Pulse 72 09/03/22 13:53 Resp 18 09/03/22 13:53 BP 143/63 H 09/03/22 13:53 Pulse Ox 96 09/03/22 13:53 O2 Del Method 09/03/22 13:53 BMI result Body Mass Index 32.1 Const: General: no acute distress and tired appearing Nutritional Appearance: well nourished Orientation/consciousness: patient oriented x3 Eyes: General: appearance normal, both eyes and all related structures Resp: Effort & Inspection: normal respiratory effort Auscultation: clear to auscultation bilaterally GI: Inspection: Yes normal to inspection Palpation (GI): Soft to palpation, nontender, no guarding and not rigid Percussion: Yes tympanic to percussion Auscultation: normal bowel sounds Skin: Other: warm, dry, no rash Neuro: General: patient oriented x3 Extrem: General: Yes pedal edema Objective Data Active Medications Acetaminophen (Acetaminophen 325 Mg Tablet) 975 mg PO Q6H PRN PRN Reason: Pain, Mild (Pain Scale 1-3) Last Admin: 09/01/22 18:20 Dose: 975 mg Documented By: ANGELIQUE Albuterol Sulfate (Albuterol Sulfate 90 Mcg 8 Gm Inhaler) 2 puff INHALE Q6H PRN PRN Reason: shortness of breath or wheezing Atorvastatin Calcium (Atorvastatin Calcium 40 Mg Tablet) 40 mg PO BEDTIME [facility] Last Admin: 09/02/22 21:13 Dose: 40 mg Documented By: BRADLEY Calcitriol (Calcitriol 0.25 Mcg Capsule) 0.5 mcg PO TuThSa@1800 [facility] Last Admin: 08/31/22 18:47 Dose: 0.5 mcg Documented By: SHERITA Cyanocobalamin (Cyanocobalamin (Vitamin B-12) 1,000 Mcg/Ml Vial) 1,000 mcg IM Q28D [facility] Docusate Sodium (Docusate Sodium 100 Mg Capsule) 200 mg PO BID [facility] Last Admin: 09/03/22 08:48 Dose: 200 mg Documented By: DOUG Dronedarone (Dronedarone Hcl 400 Mg Tablet) 400 mg PO BID [facility] Last Admin: 09/03/22 08:47 Dose: 400 mg Documented By: DOUG Enoxaparin Sodium (Enoxaparin Sodium 80 Mg/0.8 Ml Syringe) 80 mg 1 mg/kg (80 mg) SUBCUT Q24H [facility] Ferrous Sulfate (Ferrous Sulfate 324 Mg Tablet.Dr) 324 mg PO DAILY [facility] Last Admin: 09/03/22 08:48 Dose: 324 mg Documented By: DOUG Fluticasone/Vilanterol (Fluticasone/Vilanterol 100/25 Blst.W.Dev) 1 puff INHALE RDAILY [facility] Last Admin: 09/03/22 08:29 Dose: 1 puff Documented By: LAURA Gabapentin (Gabapentin 100 Mg Capsule) 100 mg PO BID [facility] Last Admin: 09/03/22 08:47 Dose: 100 mg Documented By: DOUG Hydralazine HCl (Hydralazine Hcl 25 Mg Tablet) 25 mg PO TID [facility]; Protocol Last Admin: 09/03/22 15:32 Dose: 25 mg Documented By: DOUG Hydromorphone HCl (Hydromorphone Hcl 0.5 Mg/0.5 Ml Syringe) 0.25 mg IVPUSH Q2H PRN; Protocol PRN Reason: Pain, Moderate (Pain Scale 4-6 Last Admin: 09/02/22 23:54 Dose: 0.25 mg Documented By: BLAKE Levothyroxine Sodium (Levothyroxine Sodium 25 Mcg Tablet) 25 mcg PO DAILY@0600 [facility] Last Admin: 09/03/22 05:30 Dose: 25 mcg Documented By: BLAKE Loratadine (Loratadine 10 Mg Tablet) 10 mg PO DAILY [facility] Last Admin: 09/03/22 08:47 Dose: 10 mg Documented By: DOUG Metoprolol Tartrate (Metoprolol Tartrate 25 Mg Tablet) 25 mg PO BID [facility]; Protocol Last Admin: 09/03/22 08:47 Dose: 25 mg Documented By: DOUG Montelukast Sodium (Montelukast Sodium 10 Mg Tablet) 10 mg PO BEDTIME [facility] Last Admin: 09/02/22 21:13 Dose: 10 mg Documented By: BRADLEY Non-Formulary Medication (Pantoprazole) 40 mg PO DAILY@0630 [facility] Last Admin: 09/03/22 05:31 Dose: Not Given Documented By: BLAKE Non-Admin Reason: 2 orders, given iv route Nystatin (Nystatin Cream 15 Gm Tube) 1 appl TOPICAL BID [facility]; Protocol Last Admin: 09/03/22 08:48 Dose: 1 appl Documented By: DOUG Ondansetron HCl (Ondansetron Hcl 4 Mg/2 Ml Vial) 4 mg IVPUSH Q6H PRN PRN Reason: Nausea and Vomiting Pharmacy Consult (Consult Rx Perform Med Rec) 1 each MISCELLANE ONCE PRN PRN Reason: Consult order Sevelamer Carbonate (Sevelamer Carbonate Tablet 800 Mg Tablet) 800 mg PO TIDWM [facility] Last Admin: 09/03/22 14:06 Dose: Not Given Documented By: DOUG Non-Admin Reason: pt at hemodialysis Sodium Chloride (0.9 % Sodium Chloride Flush 3 Ml Syringe) 3 ml IVFLUSH QSHIFT [facility] Last Admin: 09/03/22 15:32 Dose: 3 ml Documented By: DOUG Labs 09/03/22 06:34 09/03/22 06:34 Labs: Laboratory Results - last 24 hr 09/03/22 09/03/22 09/03/22 06:34 06:34 06:34 MCV 96.5 MCH 29.8 MCHC 30.9 L RDW 15.4 Plt Count 205 D MPV 10.5 Absolute Nucleated RBC 0.000 Nucleated RBC % (auto) 0.0 Anion Gap 18 Estim Creat Clear Calc 9.3 Estimated GFR 8 POC Glucose Random Glucose 127 H Calcium 7.1 L Total Bilirubin 1.0 Direct Bilirubin 0.3 AST 35 H ALT 39 H Alkaline Phosphatase 255 H Total Protein 5.5 L Albumin 2.9 L 09/03/22 16:02 MCV MCH MCHC RDW Plt Count MPV Absolute Nucleated RBC Nucleated RBC % (auto) Anion Gap Estim Creat Clear Calc Estimated GFR POC Glucose 217 H Random Glucose Calcium Total Bilirubin Direct Bilirubin AST ALT Alkaline Phosphatase Total Protein Albumin Procedures Date of Service Date of Service: 09/03/22 Progress Note: A&P Assessment and plan (1) ESRD (end stage renal disease): Status: Acute (2) Chronic anticoagulation: Status: Acute (3) Postoperative hematoma involving digestive system following digestive system procedure: Status: Acute (4) S/P laparoscopic cholecystectomy: Status: Acute Plan Patient returned to the ED with nausea and vomiting over the weekend and was found to have evidence of an intra-abdominal hematoma below the left lobe of the liver with some fluid in the pelvis as well. Patient's oral anticoagulation was held. MRCP negative for CBD stone. H/H slowly improving. Discussed with Dr. Phelan; will restart anticoagulation with Lovenox today. Family requesting rehab placement. Will place referral for PT evaluation. Time Spent With Patient Time: Total time managing care of this patient today ____ minutes. No Severe Sepsis: No Severe Sepsis Quality Stroke Does the patient have a stroke diagnosis?: No VTE Prior VTE?: No VTE Risk Level:: Surgical - moderate VTE Device Contraindication: N/A - Device Ordered VTE Drug Contraindication: Treatment Not Indicated
[2022-09-03] MEDS: Enoxaparin Sodium 80 MG/0.8 ML SYRINGE SUBCUT (17:36)
[2022-09-03] MEDS: calcitrioL 0.25 MCG CAPSULE 0.5 MCG PO (17:37)
[2022-09-03 19:19] VITALS: BP 130/61; PULSE 69; RESP 17; TEMP 36.3; O2SAT 98
[2022-09-03 19:57] LABS: Glucose, Whole Blood 138 mg/dL (60-115)
[2022-09-03] MEDS: Atorvastatin Calcium 40 MG TABLET PO (20:44)
[2022-09-03] MEDS: Montelukast Sodium 10 MG TABLET PO (20:45)
[2022-09-04] VITALS (7 sets, daily range): BP systolic 117–182; BP diastolic 55–72; PULSE 66–85; RESP 16–20; TEMP 36.2–37; O2SAT 97–100; BMI 30.7
[2022-09-04] MEDS: 0.9 % Sodium Chloride Flush 3 ML SYRINGE IVFLUSH ×3 (00:11→16:04)
[2022-09-04] MEDS: Levothyroxine Sodium 25 MCG TABLET PO (06:02)
[2022-09-04] MEDS: Omeprazole 20 MG CAPSULE.DR PO (07:35)
[2022-09-04] MEDS: Ferrous Sulfate 324 MG TABLET.DR PO (07:35)
[2022-09-04] MEDS: Gabapentin 100 MG CAPSULE PO ×2 (07:35→20:16)
[2022-09-04] MEDS: Sevelamer Carbonate Tablet 800 MG TABLET PO ×3 (07:36→17:05)
[2022-09-04] MEDS: hydrALAZINE HCl 25 MG TABLET PO ×3 (07:36→20:15)
[2022-09-04] MEDS: Dronedarone HCl 400 MG TABLET PO ×2 (07:36→20:16)
[2022-09-04] MEDS: Loratadine 10 MG TABLET PO (07:36)
[2022-09-04] MEDS: Metoprolol Tartrate 25 MG TABLET PO ×2 (08:05→20:16)
[2022-09-04] MEDS: Fluticasone/Vilanterol 100/25 BLST.W.DEV 1 PUFF INHALE (08:13)
--- NOTE | 2022-09-04 09:43 | P.PNGS_ITS ---
Subjective Subjective Date of Service: 09/04/22 <Kaylin Quintanilla PA-C - Last Filed: 09/04/22 09:49> 09/04/22 <Lance Santacruz MD - Last Filed: 09/04/22 15:17> Interval history: Denies abd pain. No new complaints. Tolerating liquids. Asking to eat heavy food . Seen by PT today. <Kaylin Quintanilla PA-C - Last Filed: 09/04/22 09:49> Denies abd pain. No new complaints. Tolerating liquids. Asking to eat heavy food . Seen by PT today. Reports diarrhea; skin irritated. <Lance Santacruz MD - Last Filed: 09/04/22 15:17> Physical Exam Vital Signs: Vital Signs: Last Vital Signs Temp 98.6 F 09/04/22 08:00 Pulse 66 09/04/22 08:14 Resp 16 09/04/22 08:14 BP 117/55 L 09/04/22 08:00 Pulse Ox 97 09/04/22 08:00 O2 Del Method 09/04/22 08:00 BMI result Body Mass Index 30.7 <Kaylin Quintanilla PA-C - Last Filed: 09/04/22 09:49> Const: General: comfortable and alert <Kaylin Quintanilla PA-C - Last Filed: 09/04/22 09:49> Resp: Effort & Inspection: normal respiratory effort <Kaylin Quintanilla PA-C - Last Filed: 09/04/22 09:49> GI: Inspection: No distended <Kaylin Quintanilla PA-C - Last Filed: 09/04/22 09:49> Palpation (GI): Soft to palpation, nontender, no guarding and not rigid <Kaylin Quintanilla PA-C - Last Filed: 09/04/22 09:49> Skin: General skin exam: no rashes or lesions noted <Kaylin Quintanilla PA-C - Last Filed: 09/04/22 09:49> Objective Data Active Medications Acetaminophen (Acetaminophen 325 Mg Tablet) 975 mg PO Q6H PRN PRN Reason: Pain, Mild (Pain Scale 1-3) Last Admin: 09/01/22 18:20 Dose: 975 mg Documented By: ANGELIQUE Albuterol Sulfate (Albuterol Sulfate 90 Mcg 8 Gm Inhaler) 2 puff INHALE Q6H PRN PRN Reason: shortness of breath or wheezing Atorvastatin Calcium (Atorvastatin Calcium 40 Mg Tablet) 40 mg PO BEDTIME [facility] Last Admin: 09/03/22 20:44 Dose: 40 mg Documented By: CHADWICK Calcitriol (Calcitriol 0.25 Mcg Capsule) 0.5 mcg PO TuThSa@1800 [facility] Last Admin: 09/03/22 17:37 Dose: 0.5 mcg Documented By: DOUG Cyanocobalamin (Cyanocobalamin (Vitamin B-12) 1,000 Mcg/Ml Vial) 1,000 mcg IM Q28D [facility] Docusate Sodium (Docusate Sodium 100 Mg Capsule) 200 mg PO BID [facility] Last Admin: 09/04/22 07:37 Dose: Not Given Documented By: SIA Non-Admin Reason: LOOSE STOOL Dronedarone (Dronedarone Hcl 400 Mg Tablet) 400 mg PO BID [facility] Last Admin: 09/04/22 07:36 Dose: 400 mg Documented By: SIA Enoxaparin Sodium (Enoxaparin Sodium 80 Mg/0.8 Ml Syringe) 80 mg 1 mg/kg (80 mg) SUBCUT Q24H [facility] Last Admin: 09/03/22 17:36 Dose: 80 mg Documented By: DOUG Ferrous Sulfate (Ferrous Sulfate 324 Mg Tablet.Dr) 324 mg PO DAILY [facility] Last Admin: 09/04/22 07:35 Dose: 324 mg Documented By: SIA Fluticasone/Vilanterol (Fluticasone/Vilanterol 100/25 Blst.W.Dev) 1 puff INHALE RDAILY [facility] Last Admin: 09/04/22 08:13 Dose: 1 puff Documented By: FREDI Gabapentin (Gabapentin 100 Mg Capsule) 100 mg PO BID [facility] Last Admin: 09/04/22 07:35 Dose: 100 mg Documented By: SIA Hydralazine HCl (Hydralazine Hcl 25 Mg Tablet) 25 mg PO TID [facility]; Protocol Last Admin: 09/04/22 07:36 Dose: 25 mg Documented By: SIA Hydromorphone HCl (Hydromorphone Hcl 0.5 Mg/0.5 Ml Syringe) 0.25 mg IVPUSH Q2H PRN; Protocol PRN Reason: Pain, Moderate (Pain Scale 4-6 Last Admin: 09/02/22 23:54 Dose: 0.25 mg Documented By: BLAKE Levothyroxine Sodium (Levothyroxine Sodium 25 Mcg Tablet) 25 mcg PO DAILY@0600 [facility] Last Admin: 09/04/22 06:02 Dose: 25 mcg Documented By: BLAKE Loratadine (Loratadine 10 Mg Tablet) 10 mg PO DAILY [facility] Last Admin: 09/04/22 07:36 Dose: 10 mg Documented By: SIA Metoprolol Tartrate (Metoprolol Tartrate 25 Mg Tablet) 25 mg PO BID [facility]; Protocol Last Admin: 09/04/22 08:05 Dose: 25 mg Documented By: SIA Montelukast Sodium (Montelukast Sodium 10 Mg Tablet) 10 mg PO BEDTIME [facility] Last Admin: 09/03/22 20:45 Dose: 10 mg Documented By: CHADWICK Nystatin (Nystatin Cream 15 Gm Tube) 1 appl TOPICAL BID [facility]; Protocol Last Admin: 09/03/22 20:45 Dose: 1 appl Documented By: CHADWICK Omeprazole (Omeprazole 20 Mg Capsule.Dr) 20 mg PO DAILY@0630 [facility] Last Admin: 09/04/22 07:35 Dose: 20 mg Documented By: SIA Ondansetron HCl (Ondansetron Hcl 4 Mg/2 Ml Vial) 4 mg IVPUSH Q6H PRN PRN Reason: Nausea and Vomiting Pharmacy Consult (Consult Rx Perform Med Rec) 1 each MISCELLANE ONCE PRN PRN Reason: Consult order Sevelamer Carbonate (Sevelamer Carbonate Tablet 800 Mg Tablet) 800 mg PO TIDWM [facility] Last Admin: 09/04/22 07:36 Dose: 800 mg Documented By: SIA Sodium Chloride (0.9 % Sodium Chloride Flush 3 Ml Syringe) 3 ml IVFLUSH QSHIFT [facility] Last Admin: 09/04/22 07:37 Dose: 3 ml Documented By: SIA <Kaylin Quintanilla PA-C - Last Filed: 09/04/22 09:49> Labs CBC & Chem 7: 09/03/22 06:34 09/03/22 06:34 <Kaylin Quintanilla PA-C - Last Filed: 09/04/22 09:49> Labs: Laboratory Results - last 24 hr 09/03/22 09/03/22 16:02 19:36 POC Glucose 217 H 138 H <ISAAC Fonseca Last Filed: 09/04/22 09:49> Procedures Date of Service Date of Service: 09/04/22 <Kaylin Quintanilla PA-C - Last Filed: 09/04/22 09:49> Progress Note: A&P Assessment and plan (1) ESRD needing dialysis: Status: Acute <ISAAC Fonseca Last Filed: 09/04/22 09:49> (2) Postoperative hematoma involving digestive system following digestive system procedure: Status: Acute <ISAAC Fonseca Last Filed: 09/04/22 09:49> (3) S/P laparoscopic cholecystectomy: Status: Acute <ISAAC Fonseca Last Filed: 09/04/22 09:49> Assessment and Plan: Patient returned to the ED with nausea and vomiting over the weekend and was found to have evidence of an intra-abdominal hematoma below the left lobe of the liver with some fluid in the pelvis as well. Patient's oral anticoagulation was held, MRCP negative for CBD stone. H/H stable and restarted anticoagulation with Lovenox yesterday. Seen by PT who rec STR upon discharge. Begin discharge planning. Advance diet to solid. Repeat labs in AM. If H/H remains stable, tolerating solid diet, ready for dc to STR tomorrow if bed available. <Kaylin Quintanilla PA-C - Last Filed: 09/04/22 09:49> Patient returned to the ED with nausea and vomiting over the weekend and was found to have evidence of an intra-abdominal hematoma below the left lobe of the liver with some fluid in the pelvis as well. Patient's oral anticoagulation was held, MRCP negative for CBD stone. H/H stable and restarted anticoagulation with Lovenox yesterday. Seen by PT who rec STR upon discharge. Begin discharge planning. Advance diet to solid. Repeat labs in AM. If H/H remains stable, tolerating solid diet, ready for dc to STR tomorrow if bed available. Immodium for diarrhea. <Lance Santacruz MD - Last Filed: 09/04/22 15:17> Time Spent With Patient Time: Total time managing care of this patient today ____ minutes. <Kaylin Quintanilla PA-C - Last Filed: 09/04/22 09:49> Quality Stroke Does the patient have a stroke diagnosis?: No <Kaylin Quintanilla PA-C - Last Filed: 09/04/22 09:49> VTE Prior VTE?: No <Kaylin Quintanilla PA-C - Last Filed: 09/04/22 09:49> VTE Risk Level:: Surgical - moderate <Kaylin Quintanilla PA-C - Last Filed: 09/04/22 09:49> VTE Device Contraindication: N/A - Device Ordered <Kaylin Quintanilla PA-C - Last Filed: 09/04/22 09:49> VTE Drug Contraindication: Treatment Not Indicated <Kaylin Quintanilla PA-C - Last Filed: 09/04/22 09:49>
[2022-09-04] MEDS: Nystatin Cream 15 GM TUBE 1 APPL TOPICAL ×2 (10:43→20:16)
--- NOTE | 2022-09-04 13:44 | PM.PNNEP ---
Subjective Subjective Date of Service: 09/04/22 Interval history: Events noted . All recent data reviewed. Physical Exam Vital Signs: Vital Signs: Last Vital Signs Temp 98.6 F 09/04/22 08:00 Pulse 66 09/04/22 08:14 Resp 16 09/04/22 08:14 BP 117/55 L 09/04/22 08:00 Pulse Ox 97 09/04/22 08:00 O2 Del Method 09/04/22 08:00 BMI result Body Mass Index 30.7 Const: General: no acute distress Eyes: EOM: EOMs intact bilaterally Resp: Auscultation: diminished lung sounds Cardio: Rate: regular rate GI: Palpation (GI): Soft to palpation Neuro: General: moves all extremities Objective Data Labs 09/03/22 06:34 09/03/22 06:34 Labs: Laboratory Results - last 24 hr 09/03/22 09/03/22 16:02 19:36 POC Glucose 217 H 138 H Procedures Date of Service Date of Service: 09/04/22 Assessment & Plan Assessment and plan (1) ESRD needing dialysis: Status: Acute Plan Continue HD per her schedule Vol Removal as tolerated No Heparin during Hd Epo x 1 dose given last week Shall closely follow up Time Spent With Patient Time: Total time managing care of this patient today ____ minutes. Progress Note: Quality Stroke Does the patient have a stroke diagnosis?: No
--- NOTE | 2022-09-04 14:46 | MHC.CLN ---
NUTRITION PATIENT HAS DIABETES AND ESRD ON HEMODIALYSIS. CHANGED DIET PER DIALYSIS PARAMETERS WITH DM: DIABETIC 1800 KCALS, LOW FAT, 2 GRAM SODIUM, LOW POTASSIUM, LOW PHOSPHORUS.
[2022-09-04] MEDS: Enoxaparin Sodium 80 MG/0.8 ML SYRINGE SUBCUT (16:04)
[2022-09-04] MEDS: Loperamide HCl 2 MG CAPSULE PO (16:08)
--- NOTE | 2022-09-04 17:13 | MHC.CM.PN ---
DP home with assist from son. Patient will resume HD. He will transport via BLS.
[2022-09-04] MEDS: Atorvastatin Calcium 40 MG TABLET PO (20:15)
[2022-09-04] MEDS: Montelukast Sodium 10 MG TABLET PO (20:16)
[2022-09-04 20:45] LABS: Glucose, Whole Blood 160 mg/dL (60-115)
[2022-09-05] MEDS: 0.9 % Sodium Chloride Flush 3 ML SYRINGE IVFLUSH ×2 (00:02→07:53)
[2022-09-05 03:34] VITALS: BP 136/84; PULSE 70; RESP 16; TEMP 35.9; O2SAT 99
[2022-09-05 06:00] VITALS: BMI 26.6
[2022-09-05 06:43] LABS: Basophils Absolute Auto 0.1 X10*3/uL (0.0-0.2); Basophils Percent Auto 0.5 % (0-2); Eosinophils Absolute Auto 0.8 X10*3/uL (0.0-0.4); Eosinophils Percent Auto 7.4 % (0-4); Hematocrit 25.8 % (37.0-47.0); Hemoglobin 8.3 g/dl (12.0-16.0); Lymphocytes Absolute Auto 0.8 X10*3/uL (1.2-4.9); Lymphocytes Percent Auto 7.8 % (20-40); MANUAL DIFF FLAG SCAN; Mean Corpuscular HGB Conc 32.2 g/dl (31.0-35.0); Mean Corpuscular Hemoglobin 30.2 pg (27.0-33.0); Mean Corpuscular Volume 93.8 fL (80.0-98.0); Monocytes Absolute Auto 0.8 X10*3/uL (0.1-1.2); Neutrophils Absolute Auto 7.9 x10*3/uL (2.0-8.3); Neutrophils Percent Auto 75.3 % (45-73); PLT CLUMP 1; Red Blood Count 2.75 X10*6/uL (4.20-5.50); SCAN SMEAR FLAG 1
[2022-09-05 06:44] LABS: White Blood Count 10.5 X10*3/uL (4.8-10.8)
[2022-09-05] MEDS: Omeprazole 20 MG CAPSULE.DR PO (06:44)
[2022-09-05] MEDS: Levothyroxine Sodium 25 MCG TABLET PO (06:44)
[2022-09-05 07:10] LABS: Anion Gap 17 (12-20); Blood Urea Nitrogen 21 mg/dL (9-16); Calcium 7.3 mg/dL (8.4-10.2); Carbon Dioxide 15 mmol/L (22-29); Chloride 102 mmol/L (96-108); Creatinine Clr Calc Pharmacy 9.9; Estimated Glomerular Filt Rate 9; Glucose Fasting 125 mg/dL (60-99); Potassium 4.5 mmol/L (3.3-5.1); Sodium 129 mmol/L (135-145)
[2022-09-05 07:19] LABS: Platelet Count 216 X10*3/uL (160-400); SLIDE REVIEW VERIFIED
[2022-09-05] MEDS: Loperamide HCl 2 MG CAPSULE PO (07:53)
[2022-09-05] MEDS: Loratadine 10 MG TABLET PO (07:53)
[2022-09-05] MEDS: Ferrous Sulfate 324 MG TABLET.DR PO (07:54)
[2022-09-05] MEDS: Sevelamer Carbonate Tablet 800 MG TABLET PO ×3 (07:54→17:11)
[2022-09-05] MEDS: Acetaminophen 325 MG TABLET 975 MG PO (07:54)
[2022-09-05] MEDS: Metoprolol Tartrate 25 MG TABLET PO (07:54)
[2022-09-05] MEDS: Gabapentin 100 MG CAPSULE PO (07:54)
[2022-09-05] MEDS: hydrALAZINE HCl 25 MG TABLET PO ×2 (07:55→14:17)
[2022-09-05] MEDS: Fluticasone/Vilanterol 100/25 BLST.W.DEV 1 PUFF INHALE (07:55)
[2022-09-05] MEDS: Dronedarone HCl 400 MG TABLET PO (07:55)
[2022-09-05 07:57] VITALS: PULSE 65; RESP 16; O2SAT 97
[2022-09-05 08:00] VITALS: BP 186/71; PULSE 71; RESP 18; TEMP 37.3; O2SAT 97
[2022-09-05] MEDS: Nystatin Cream 15 GM TUBE 1 APPL TOPICAL (08:02)
--- NOTE | 2022-09-05 08:18 | PM.PNGS ---
Subjective Subjective Date of Service: 09/05/22 Interval history: Patient reported to have diarrhea yesterday, started on Imodium. Apparently previously fell home from walking on loose stool. Patient would benefit from short-term rehab. Physical Exam Vital Signs: Vital Signs: Last Vital Signs Temp 99.2 F 09/05/22 08:00 Pulse 71 09/05/22 08:00 Resp 18 09/05/22 08:00 BP 186/71 H 09/05/22 08:00 Pulse Ox 97 09/05/22 08:00 O2 Del Method 09/05/22 08:00 BMI result Body Mass Index 26.6 Const: General: cooperative Nutritional Appearance: well nourished Orientation/consciousness: patient oriented x3 Limitations: no limitations Resp: Effort & Inspection: normal respiratory effort GI: Other: Soft, nondistended, nontender, normal to percussion. Normal bowel sounds. Neuro: General: patient oriented x3 Extrem: General: Yes normal to inspection Objective Data Active Medications Acetaminophen (Acetaminophen 325 Mg Tablet) 975 mg PO Q6H PRN PRN Reason: Pain, Mild (Pain Scale 1-3) Last Admin: 09/05/22 07:54 Dose: 975 mg Documented By: SIA Albuterol Sulfate (Albuterol Sulfate 90 Mcg 8 Gm Inhaler) 2 puff INHALE Q6H PRN PRN Reason: shortness of breath or wheezing Atorvastatin Calcium (Atorvastatin Calcium 40 Mg Tablet) 40 mg PO BEDTIME [facility] Last Admin: 09/04/22 20:15 Dose: 40 mg Documented By: JENNY Calcitriol (Calcitriol 0.25 Mcg Capsule) 0.5 mcg PO TuThSa@1800 [facility] Last Admin: 09/03/22 17:37 Dose: 0.5 mcg Documented By: DOUG Cyanocobalamin (Cyanocobalamin (Vitamin B-12) 1,000 Mcg/Ml Vial) 1,000 mcg IM Q28D [facility] Docusate Sodium (Docusate Sodium 100 Mg Capsule) 200 mg PO BID [facility] Last Admin: 09/05/22 07:55 Dose: Not Given Documented By: SIA Non-Admin Reason: loose stool Dronedarone (Dronedarone Hcl 400 Mg Tablet) 400 mg PO BID [facility] Last Admin: 09/05/22 07:55 Dose: 400 mg Documented By: SIA Enoxaparin Sodium (Enoxaparin Sodium 80 Mg/0.8 Ml Syringe) 80 mg 1 mg/kg (80 mg) SUBCUT Q24H [facility] Last Admin: 09/04/22 16:04 Dose: 80 mg Documented By: JENNY Ferrous Sulfate (Ferrous Sulfate 324 Mg Tablet.Dr) 324 mg PO DAILY [facility] Last Admin: 09/05/22 07:54 Dose: 324 mg Documented By: SIA Fluticasone/Vilanterol (Fluticasone/Vilanterol 100/25 Blst.W.Dev) 1 puff INHALE RDAILY [facility] Last Admin: 09/05/22 07:55 Dose: 1 puff Documented By: KATARINA Gabapentin (Gabapentin 100 Mg Capsule) 100 mg PO BID [facility] Last Admin: 09/05/22 07:54 Dose: 100 mg Documented By: SIA Hydralazine HCl (Hydralazine Hcl 25 Mg Tablet) 25 mg PO TID [facility]; Protocol Last Admin: 09/05/22 07:55 Dose: 25 mg Documented By: SIA Hydromorphone HCl (Hydromorphone Hcl 0.5 Mg/0.5 Ml Syringe) 0.25 mg IVPUSH Q2H PRN; Protocol PRN Reason: Pain, Moderate (Pain Scale 4-6 Last Admin: 09/02/22 23:54 Dose: 0.25 mg Documented By: BLAKE Levothyroxine Sodium (Levothyroxine Sodium 25 Mcg Tablet) 25 mcg PO DAILY@0600 [facility] Last Admin: 09/05/22 06:44 Dose: 25 mcg Documented By: HUBER Loperamide HCl (Loperamide Hcl 2 Mg Capsule) 2 mg PO Q4H PRN PRN Reason: Diarrhea Last Admin: 09/05/22 07:53 Dose: 2 mg Documented By: SIA Loratadine (Loratadine 10 Mg Tablet) 10 mg PO DAILY [facility] Last Admin: 09/05/22 07:53 Dose: 10 mg Documented By: SIA Metoprolol Tartrate (Metoprolol Tartrate 25 Mg Tablet) 25 mg PO BID [facility]; Protocol Last Admin: 09/05/22 07:54 Dose: 25 mg Documented By: SIA Montelukast Sodium (Montelukast Sodium 10 Mg Tablet) 10 mg PO BEDTIME [facility] Last Admin: 09/04/22 20:16 Dose: 10 mg Documented By: JENNY Nystatin (Nystatin Cream 15 Gm Tube) 1 appl TOPICAL BID [facility]; Protocol Last Admin: 09/05/22 08:02 Dose: 1 appl Documented By: SIA Omeprazole (Omeprazole 20 Mg Capsule.) 20 mg PO DAILY@0630 [facility] Last Admin: 09/05/22 06:44 Dose: 20 mg Documented By: HUBER Ondansetron HCl (Ondansetron Hcl 4 Mg/2 Ml Vial) 4 mg IVPUSH Q6H PRN PRN Reason: Nausea and Vomiting Pharmacy Consult (Consult Rx Perform Med Rec) 1 each MISCELLANE ONCE PRN PRN Reason: Consult order Sevelamer Carbonate (Sevelamer Carbonate Tablet 800 Mg Tablet) 800 mg PO TIDWM [facility] Last Admin: 09/05/22 07:54 Dose: 800 mg Documented By: SIA Sodium Chloride (0.9 % Sodium Chloride Flush 3 Ml Syringe) 3 ml IVFLUSH QSHIFT [facility] Last Admin: 09/05/22 07:53 Dose: 3 ml Documented By: SIA Labs 09/05/22 05:58 09/05/22 05:58 Labs: Laboratory Results - last 24 hr 09/04/22 09/05/22 09/05/22 20:41 05:58 05:58 MCV 93.8 MCH 30.2 MCHC 32.2 RDW 15.0 Plt Count 216 MPV Not Reportable Immature Gran % (Auto) 1.0 H Neut % (Auto) 75.3 H Lymph % (Auto) 7.8 L [place] % (Auto) 8.0 Eos % (Auto) 7.4 H Baso % (Auto) 0.5 Lymph # (Auto) 0.8 L [place] # (Auto) 0.8 Eos # (Auto) 0.8 H Baso # (Auto) 0.1 Abs Immat Gran (auto) 0.10 H Absolute Neuts (auto) 7.9 Absolute Nucleated RBC 0.000 Nucleated RBC % (auto) 0.0 Smear Tech's Comments VERIFIED Anion Gap 17 Estim Creat Clear Calc 9.9 Estimated GFR 9 POC Glucose 160 H Fasting Glucose 125 H Calcium 7.3 L Procedures Date of Service Date of Service: 09/05/22 Progress Note: A&P Assessment and plan (1) Postoperative hematoma involving digestive system following digestive system procedure: Status: Acute (2) S/P laparoscopic cholecystectomy: Status: Acute Plan Overall patient is much improved and her H&H has improved as well. Patient will need short-term rehab as a bridge to returning home. Discussed with case management. Anticoagulation per hospitalist team. Time Spent With Patient Time: Total time managing care of this patient today ____ minutes. Quality Stroke Does the patient have a stroke diagnosis?: No VTE Prior VTE?: No VTE Risk Level:: Surgical - moderate VTE Device Contraindication: N/A - Device Ordered VTE Drug Contraindication: Treatment Not Indicated
--- NOTE | 2022-09-05 09:56 | PM.DS ---
DS: Providers Provider Date of Service: 09/05/22 Date of admission: 08/31/22 11:34 Primary care physician: Lonnie Khan MD Attending physician on admission: Cory Silvestre Consults: 08/31/22 11:35 Consult to Hospitalist Routine Consulting Provider: Hospitalist Reason For Exam: chronic medical issues 08/31/22 11:36 Consult to Nephrology Stat Consulting Provider: Xavier Morris Reason for consultation: missed dialysis Attending physician on discharge: Lance Santacruz DS: Diagnosis Discharge Diagnosis (1) Postoperative hematoma involving digestive system following digestive system procedure: Status: Acute (2) S/P laparoscopic cholecystectomy: Status: Acute DS: Summary Hospital Course Hospital Course: HPI AT ADMISSION: Carolina Atkins is a 77 year old female on Eliquis, with h/o RF on dialysis (dialysis missed today) who underwent lap fei 08/21/[address] Santacruz for acute calculus cholecystitis,? She presents with worsening pain & RUQ hematoma.? Per Salima, the patient notes that she has had continued right upper quadrant gas pain that has been present since before surgery.? It becomes worse at time causing severe nausea and vomiting.? She has had no vomiting today, but her nausea was so severe that she came to the emergency department.? She is chronically disc neck and notes that she is on home O2 but denies any chest pain, localizing neurologic symptoms.? She has been tolerating some food, but has periods where the nausea become so bad that she vomits.Work up in the ED included CT scan abd pelvis/ABD US which showed large heterogeneous lesion consistent with hematoma within the upper abdomen with complex fluid tracking into the pelvis, no biliary ductal dilatation status post cholecystectomy. Her hgb was 8.7 and had elevated alk phos. HOSPITAL COURSE: She was admitted to the surgical service. She was kept NPO and started on gentle IVF. Her anticoagulation was held. Her hemoglobin had drifted from around 10.3-8.7, however she was hemodynamically stable and without evidence that she had active, ongoing bleeding.?She was type and crossed 2 units. Hospitalist & nephrology was consulted for management of her medical comorbidities and ESRD needing dialysis. An MRCP was performed to r/o CBD obstruction given elevated alk phos which was negative. She remained stable and her Hgb drifted down a little further initially but remained >7 and therefore no blood transfusion was required. Her diet was advanced as tolerated and fluids discontinued. HD was continued as per schedule. She was started on Epoetin aubrie by nephrology. Lovenox 80mg daily was initiated. Her H/H remained stable following this. Her home eliquis was therefore resumed and lovenox discontinued. Her family had requested her discharged to [facility] as she had fallen at home prior to being admitted and therefore PT was consulted and this was arranged. She was started on imodium for loose stools. On the day of transfer, she was tolerating a solid diet without nausea or vomiting. She had no abd pain and her abdominal exam was benign. Her H/H was stable following anticoagulation resumption. She was discharged to [facility] on 09/05/22 in stable condition. All her home medications were continued with the exception of the colace which was held due to her loose stools. Status at Discharge Functional status at discharge: uses cane/walker Overall status at discharge: patient is progressing back to baseline Time Spent with Patient Time attestation: Total time managing care of this patient today ____ minutes. Discharge coordination time: Greater than 30 minutes Quality: Safe Use of Opioids Does Pt have an Active Cancer Diagnosis on the Problem List?: No Quality: Stroke Does the patient have a stroke diagnosis?: No Physical Exam Vital Signs: Vital Signs: Last Vital Signs Temp 99.2 F 09/05/22 08:00 Pulse 71 09/05/22 08:00 Resp 18 09/05/22 08:00 BP 186/71 H 09/05/22 08:00 Pulse Ox 97 09/05/22 08:00 O2 Del Method 09/05/22 08:00 BMI result Body Mass Index 26.6 Const: General: no acute distress and alert Resp: Effort & Inspection: normal respiratory effort GI: Inspection: No distended Palpation (GI): Soft to palpation, nontender, no guarding and not rigid Skin: General skin exam: no rashes or lesions noted Neuro: General: moves all extremities DS: Data Data Completed and Pending Completed studies during hospitalization [Text1]: Procedures Assistance with Respiratory Ventilation, Less than 24 Consecutive Hours, Continuous Positive Airway Pressure (11/06/21) Drainage of Left Pleural Cavity, Percutaneous Approach (05/21/21) Excision of Duodenum, Via Natural or Artificial Opening Endoscopic, Diagnostic (07/19/22) Excision of Right Kidney, Percutaneous Approach, Diagnostic (04/20/21) Excision of Sigmoid Colon, Via Natural or Artificial Opening Endoscopic, Diagnostic (07/19/22) Excision of Stomach, Pylorus, Via Natural or Artificial Opening Endoscopic, Diagnostic (07/19/22) Insertion of Infusion Device into Left Brachial Vein, Percutaneous Approach (05/02/21) Insertion of Infusion Device into Right Atrium, Percutaneous Approach (05/02/21) Insertion of Infusion Device into Superior Vena Cava, Percutaneous Approach (05/02/21) Insertion of Tunneled Vascular Access Device into Chest Subcutaneous Tissue and Fascia, Percutaneous Approach (05/02/21) Performance of Urinary Filtration, Intermittent, Less than 6 Hours Per Day (08/18/22) Removal of Infusion Device from Great Vessel, Percutaneous Approach (05/02/21) Resection of Gallbladder, Percutaneous Endoscopic Approach (08/18/22) Transfusion of Nonautologous Red Blood Cells into Peripheral Vein, Percutaneous Approach (05/02/21) Labs on day of discharge: Laboratory Results - last 24 hr 09/04/22 09/05/22 09/05/22 20:41 05:58 05:58 WBC 10.5 RBC 2.75 L Hgb 8.3 L Hct 25.8 L MCV 93.8 MCH 30.2 MCHC 32.2 RDW 15.0 Plt Count 216 MPV Not Reportable Immature Gran % (Auto) 1.0 H Neut % (Auto) 75.3 H Lymph % (Auto) 7.8 L [place] % (Auto) 8.0 Eos % (Auto) 7.4 H Baso % (Auto) 0.5 Lymph # (Auto) 0.8 L [place] # (Auto) 0.8 Eos # (Auto) 0.8 H Baso # (Auto) 0.1 Abs Immat Gran (auto) 0.10 H Absolute Neuts (auto) 7.9 Absolute Nucleated RBC 0.000 Nucleated RBC % (auto) 0.0 Smear Tech's Comments VERIFIED Sodium 129 L Potassium 4.5 Chloride 102 Carbon Dioxide 15 L Anion Gap 17 BUN 21 H Creatinine 4.87 H* Estim Creat Clear Calc 9.9 Estimated GFR 9 POC Glucose 160 H Fasting Glucose 125 H Calcium 7.3 L Discharge Plan Discharge Anticipated Discharge Date/Time: 09/05/22 17:00 Patient Disposition: Xfer SNF Discharge Diagnosis: post op hematoma Referrals: Lonnie Khan MD [Primary Care Provider] - 1 Week Lance Santacruz MD [Physician] - 1 Week Discharge Medications: Continued (DME) Extra depth orthopedic shoes (1 pair) with customized heat molded multidensity innersoles (3 pair) See Rx Instructions .Route .MEDSUPPLY Qty: 1 0RF Rx Instructions: As directed (DME) syringe with needle 3 mL 27 gauge x 1 1/4 syringe See Rx Instructions .Route Qty: 6 1RF Rx Instructions: As directed once a month (for Vitamin B12 injections) loratadine 10 mg tablet 10 mg PO DAILY 90 Days Qty: 90 3RF Rx Instructions: Take 1 tablet by mouth daily ferrous sulfate 325 mg (65 mg iron) tablet 325 mg PO DAILY Qty: 90 1RF hydralazine 25 mg tablet 25 mg PO TID 90 Days Qty: 270 3RF Protocol: Hold for SBP< HOLD for SBP < : 90 (DME) blood-glucose meter [FreeStyle Lite Meter] Kit See Rx Instructions .Route Qty: 1 0RF Rx Instructions: As directed atorvastatin 40 mg tablet 40 mg PO BEDTIME Qty: 90 0RF cyanocobalamin (vitamin B-12) 1,000 mcg/mL solution 1,000 mcg IM Q4W Qty: 3 1RF Multaq 400 mg tablet 400 mg PO BID Qty: 60 3RF Rx Instructions: must administer with a meal/food insulin glargine [Lantus Solostar U-100 Insulin] 100 unit/mL (3 mL) insulin pen 8 unit subcut BEDTIME 90 Days Qty: 7.2 3RF Advair HFA 115-21 mcg/actuation HFA aerosol inhaler 2 puff inhalation Q12H 30 Days Qty: 12 11RF metoprolol tartrate 25 mg tablet 25 mg PO BID Qty: 60 5RF Protocol: Hold for SBP/HR < HOLD for SBP < : 90 HOLD for HR < : 60 (DME) lancets [FreeStyle Lancets] 28 gauge misc See Rx Instructions .ROUTE .MEDSUPPLY Qty: 100 12RF Rx Instructions: check BS 3x/day (DME) DIGITAL SCALE See Rx Instructions .Route .MEDSUPPLY Qty: 1 0RF Rx Instructions: As directed pantoprazole 40 mg tablet,delayed release (DR/EC) 40 mg PO DAILY@0630 30 Days Qty: 30 5RF (DME) FreeStyle Lite Strips Strip See Rx Instructions .ROUTE .COMPLEX Qty: 100 12RF Dose Instruction: USE DIRECTED ONCE A DAY Rx Instructions: USE DIRECTED ONCE A DAY levothyroxine 25 mcg tablet 25 mcg PO DAILY@0600 Qty: 90 0RF Eliquis 5 mg tablet 5 mg PO BID 90 Days Qty: 180 0RF montelukast 10 mg tablet 10 mg PO BEDTIME Qty: 90 0RF gabapentin 100 mg capsule 100 mg PO BID 30 Days Qty: 60 1RF insulin lispro 100 unit/mL insulin pen 2 - 10 unit subcut QIDACHS Rx Instructions: PER SLIDING SCALE acetaminophen 325 mg Tablet 325 mg PO Q6H PRN (Reason: Mild Pain (Scale Score 1-4)) lidocaine 5 % adhesive patch,medicated 1 patch TOPICAL DAILY Protocol: Apply to: Apply to: NECK AND LEGS Rx Instructions: leave on most painful area for up to 12 hrs sevelamer carbonate 800 mg tablet 800 mg PO TIDWM Rx Instructions: must administer with a meal/food calcitriol 0.25 mcg Capsule 0.5 mcg PO TUTHSA Rx Instructions: administer after dialysis on dialysis days aspirin 81 mg Tablet,Delayed Release (Dr/Ec) 81 mg PO DAILY (DME) TRANSPORT WHEELCHAIR See Rx Instructions .Route .MEDSUPPLY Qty: 1 0RF Rx Instructions: As directed (DME) blood pressure monitor Kit See Rx Instructions .Route Qty: 1 0RF Rx Instructions: As directed (DME) pen needle, diabetic [BD Sandra 2nd Gen Pen Needle] 32 gauge x 5/32 needle See Rx Instructions .Route Qty: 50 0RF Rx Instructions: As directed (DME) blood-glucose meter [FreeStyle Lite Meter] Kit See Rx Instructions .Route Qty: 1 0RF Rx Instructions: As directed 3-4 times a day albuterol sulfate 90 mcg/actuation HFA aerosol inhaler 2 inh inhalation Q6H PRN (Reason: shortness of breath or wheezing) 30 Days Qty: 18 12RF Held docusate sodium 100 mg capsule 1 cap PO BID Hold Instructions: Resume on 09/27/22. pending MD instructions Discharge Orders: Discharge Order (Routine); Ordered 09/05/22 Ordered By: Kaylin Socorro Diet: Low fat, low cholesterol Activity on Discharge: No heavy lifting Stand Alone Forms: Patient Portal Discharge page Activity Restrictions/Additional Instructions: Follow up in office with Dr. Santacruz in a week. ([phone]) Follow up with your PCP and garden equipment mechanic. Hold stool softener (docusate) until loose stools resolve. Call Your Doctor If: ? ? -Your temperature exceeds 101.5? F? ? ? -You experience excessive pain or swelling ? ? -You have an unexpected reaction to medication ? ? -You experience continued vomiting/nausea Care Plan Goals: Return to baseline health and gradual return to activity following recovery period. Health Concerns: Post op hematoma Acute on chronic anemia Plan of Treatment: Observation, trending of H/H F/u in office Assessment: Improved.
--- NOTE | 2022-09-05 13:20 | PM.PNNEP ---
Subjective Subjective Date of Service: 09/05/22 Interval history: Events noted; Seen on HD . All recent data reviewed. D/W HD RN Physical Exam Vital Signs: Vital Signs: Last Vital Signs Temp 99.2 F 09/05/22 08:00 Pulse 71 09/05/22 08:00 Resp 18 09/05/22 08:00 BP 186/71 H 09/05/22 08:00 Pulse Ox 97 09/05/22 08:00 O2 Del Method 09/05/22 08:00 BMI result Body Mass Index 26.6 Const: General: no acute distress Eyes: EOM: EOMs intact bilaterally Resp: Auscultation: diminished lung sounds Cardio: Rate: regular rate GI: Palpation (GI): Soft to palpation Neuro: General: moves all extremities Objective Data Labs 09/05/22 05:58 09/05/22 05:58 Labs: Laboratory Results - last 24 hr 09/04/22 09/05/22 09/05/22 20:41 05:58 05:58 WBC 10.5 RBC 2.75 L Hgb 8.3 L Hct 25.8 L MCV 93.8 MCH 30.2 MCHC 32.2 RDW 15.0 Plt Count 216 MPV Not Reportable Immature Gran % (Auto) 1.0 H Neut % (Auto) 75.3 H Lymph % (Auto) 7.8 L [place] % (Auto) 8.0 Eos % (Auto) 7.4 H Baso % (Auto) 0.5 Lymph # (Auto) 0.8 L [place] # (Auto) 0.8 Eos # (Auto) 0.8 H Baso # (Auto) 0.1 Abs Immat Gran (auto) 0.10 H Absolute Neuts (auto) 7.9 Absolute Nucleated RBC 0.000 Nucleated RBC % (auto) 0.0 Smear Tech's Comments VERIFIED Sodium 129 L Potassium 4.5 Chloride 102 Carbon Dioxide 15 L Anion Gap 17 BUN 21 H Creatinine 4.87 H* Estim Creat Clear Calc 9.9 Estimated GFR 9 POC Glucose 160 H Fasting Glucose 125 H Calcium 7.3 L Procedures Date of Service Date of Service: 09/05/22 Assessment & Plan Assessment and plan (1) ESRD needing dialysis: Status: Acute Assessment and Plan: Seen on HD Continue HD as per her schedule Vol Removal as tolerated No Heparin during Hd Epo x 1 dose given last week Shall closely follow up Progress Note: Quality Stroke Does the patient have a stroke diagnosis?: No
[2022-09-05 13:56] LABS: COVID-19 Test Negative (Negative); IDNOW Serial# BCCEAD1C
[2022-09-05 14:18] VITALS: BP 133/56; PULSE 62
--- NOTE | 2022-09-05 14:19 | MHC.CM.PN ---
DP: PT HAS BEEN MEDICALLY CLEARED FOR DC TO [facility] FOR SHORT TERM REHAB. RN AWARE. SON ELIO AWARE AND IMM EXPLAINED VIA TELEPHONE, WHITE COPY TO BE MAILED, YELLOW COPY TO CHART. FACILITY AWARE AND HAS ASKED FOR TRANSPORT TO BE BOOKED FOR 5 PM (PENDING AUTH FROM [facility]) TRANSPORT BOOKED FOR 5 PM VIA [facility]
[2022-09-05 16:00] VITALS: PULSE 63; RESP 18; TEMP 36.6; O2SAT 99
[2022-09-05] MEDS: calcitrioL 0.25 MCG CAPSULE 0.5 MCG PO (17:48)
[2022-09-06 08:13] LABS: HBS Num1 0.16 mIU/mL (0-7.99); HBc Num1 0.08 S/CO (0.00-0.79); Hepatitis B Core Antibody Nonreactive (Nonreactive); ~Hepatitis B Surface Antibody NONREACTIVE (Nonreactive)
== END 2022-09-05 18:52 | disposition skilled nursing facility (03) | DRG 919 ==
LOC: HO.ED 08:23 → HO.EDOVER 11:38 → HO.S3 16:40
PROVIDERS: Physician Assistant Surgical; Student in an Organized Health Care Education/Training Program; Admitting Provider Surgery; Emergency Provider Emergency Medicine; PCP Internal Medicine; Visit Provider Surgery
DX: K91.870 Postprocedural hematoma of a digestive system organ or structure following a digestive system procedure (principal); N18.6 End stage renal disease; D68.32 Hemorrhagic disorder due to extrinsic circulating anticoagulants; E87.1 Hypo-osmolality and hyponatremia; E87.20 Acidosis, unspecified; J90 Pleural effusion, not elsewhere classified; Y83.8 Other surgical procedures as the cause of abnormal reaction of the patient, or of later complication, without mention of misadventure at the time of the procedure; E03.9 Hypothyroidism, unspecified; E78.5 Hyperlipidemia, unspecified; I48.0 Paroxysmal atrial fibrillation; T45.515A Adverse effect of anticoagulants, initial encounter; D63.1 Anemia in chronic kidney disease; J44.9 Chronic obstructive pulmonary disease, unspecified; J45.40 Moderate persistent asthma, uncomplicated; Z20.822 Contact with and (suspected) exposure to COVID-19; Z79.4 Long term (current) use of insulin; Z79.51 Long term (current) use of inhaled steroids; Z79.82 Long term (current) use of aspirin; Z79.890 Hormone replacement therapy; Z79.899 Other long term (current) drug therapy
CPT/HCPCS: 36415; 74176; 74181; 76705; 80048; 80053; 80076; 82947; 83036; 85025; 85027; 86704; 86706; 86850; 86900; 86901; 87635; 90935; 90999; 93005; 96361; 96374; 96375; 96376; 97162; 99285; J0885; J1170; J1650; J2270; J2405; J2765

== ENCOUNTER 2022-09-20 09:19 | Outpatient (REF) | payer OTHER, SELFPAY ==
[2022-09-20 14:08] LABS: MANUAL DIFF FLAG NO
[2022-09-20 14:30] LABS: Basophils Absolute Auto 0.1 X10*3/uL (0.0-0.2); Basophils Percent Auto 0.7 % (0-2); Eosinophils Absolute Auto 0.4 X10*3/uL (0.0-0.4); Eosinophils Percent Auto 4.6 % (0-4); Hematocrit 33.7 % (37.0-47.0); Hemoglobin 10.1 g/dl (12.0-16.0); Imm Gran Abs Auto 0.04 X10*3/uL (0.00-0.03); Imm Gran Pct Auto 0.4 % (0.0-0.4); Lymphocytes Absolute Auto 0.8 X10*3/uL (1.2-4.9); Lymphocytes Percent Auto 7.9 % (20-40); Mean Corpuscular Hemoglobin 29.4 pg (27.0-33.0); Mean Corpuscular Volume 98.3 fL (80.0-98.0); Mean Platelet Volume 9.6 fL (9.4-12.3); Monocytes Absolute Auto 0.8 X10*3/uL (0.1-1.2); Monocytes Percent Auto 7.9 % (2-11); Neutrophils Absolute Auto 7.6 x10*3/uL (2.0-8.3); Neutrophils Percent Auto 78.5 % (45-73); Platelet Count 241 X10*3/uL (160-400); Red Blood Count 3.43 X10*6/uL (4.20-5.50); Red Cell Distribution Width 15.8 % (11.0-16.0); White Blood Count 9.6 X10*3/uL (4.8-10.8)
[2022-09-20 15:06] LABS: Alanine Aminotransferase 19 U/L (0-31); Albumin Level 3.7 g/dL (3.5-5.0); Alkaline Phosphatase 292 U/L (39-117); Anion Gap 14 (12-20); Aspartate Amino Transferase 25 U/L (5-31); Blood Urea Nitrogen 20 mg/dL (9-16); Calcium 9.2 mg/dL (8.4-10.2); Carbon Dioxide 28 mmol/L (22-29); Chloride 97 mmol/L (96-108); Cholesterol 116 mg/dL; Estimated Glomerular Filt Rate 13; Glucose Fasting 194 mg/dL (60-99); HDL Cholesterol 41 mg/dL; LDL Cholesterol Calculated 51 mg/dl; Potassium 4.3 mmol/L (3.3-5.1); Sodium 135 mmol/L (135-145); Total Protein 7.1 g/dL (6.5-8.0); Triglycerides 124 mg/dL
[2022-09-20 15:38] LABS: Folate 8.3 ng/mL (> or = 4.0); Free T4 (Free Thyroxine) 1.31 ng/dL (0.71-1.85); Thyroid Stimulating Hormone 2.41 uIU/mL (0.32-4.0); Vitamin B12 > 2000 pg/mL (200-900); Vitamin D 25-OH Total 29.1 ng/mL (>30)
[2022-09-20 15:43] LABS: Estimated Average Glucose 143 mg/dL; Hemoglobin A1c % 6.6 %
== END 2022-09-20 09:20 | disposition home or self-care (01) ==
LOC: HO.LAB 09:19
PROVIDERS: Absent Provider Internal Medicine; PCP Internal Medicine; Referring Provider Internal Medicine; Visit Provider Surgery
DX: I48.0 Paroxysmal atrial fibrillation (principal); I13.2 Hypertensive heart and chronic kidney disease with heart failure and with stage 5 chronic kidney disease, or end stage renal disease; I50.9 Heart failure, unspecified; E11.22 Type 2 diabetes mellitus with diabetic chronic kidney disease; E55.9 Vitamin D deficiency, unspecified; E78.00 Pure hypercholesterolemia, unspecified; E03.9 Hypothyroidism, unspecified; E53.8 Deficiency of other specified B group vitamins; E78.5 Hyperlipidemia, unspecified; N18.6 End stage renal disease; Z09 Encounter for follow-up examination after completed treatment for conditions other than malignant neoplasm; Z99.2 Dependence on renal dialysis; Z90.49 Acquired absence of other specified parts of digestive tract; Z79.01 Long term (current) use of anticoagulants; Z79.4 Long term (current) use of insulin; Z79.899 Other long term (current) drug therapy
CPT/HCPCS: 36415; 80053; 80061; 82306; 82607; 82746; 83036; 84439; 84443; 85025; 99212

== ENCOUNTER 2022-09-24 13:59 | Outpatient (REF) | payer OTHER, SELFPAY ==
[2022-09-24 14:30] LABS: Appearance Urine Cloudy; Color Urine Dark Yellow; Glucose Urine UA 250 mg/dL (Negative); Leukocyte Esterase Urine Small (1+) (Negative); Nitrite Urine Negative (Negative); UMIC TRIGGER UACC YES; Urine Blood Trace (Negative); Urine Ketones Negative (Negative); Urine Protein >=1000 (4+) mg/dL (Neg-Trace)
[2022-09-24 14:54] LABS: Bacteria Urine 4+ (None Seen); Squamous Epithelial Cell Urine >20 /HPF (0-2); UACC Culture Trigger YES; WBC Urine 21-50 /HPF (0-5)
[2022-09-24 15:28] LABS: Creatinine Urine 84.55 mg/dL; Microalbumin Urine > 2000.0 mg/L
== END 2022-09-24 14:00 | disposition home or self-care (01) ==
LOC: HO.LNP 13:59
PROVIDERS: Surgery; Visit Provider Internal Medicine
DX: E11.9 Type 2 diabetes mellitus without complications (principal); R19.7 Diarrhea, unspecified; R82.90 Unspecified abnormal findings in urine
CPT/HCPCS: 81001; 82043; 87086

== ENCOUNTER 2022-10-10 23:56 | Emergency (ER) | payer OTHER, SELFPAY ==
--- NOTE | ~2022-10-10 | MR_ITS ---
EXAMINATION: MR BRAIN WITHOUT CONTRAST CLINICAL INFORMATION: Question bleed. COMPARISON: Head CT from 10/11/2022 TECHNIQUE: Multiplanar, multisequence imaging of the brain was performed without contrast. FINDINGS: At the site of a focal high attenuation in the dorsal right basal ganglia, there is low signal and significant blooming artifact on T2 and gradient imaging, consistent with focal late subacute blood products. No associated mass effect or edema visible at the site. An additional smaller focus of high attenuation in the right hippocampus corresponds to another site of blooming artifact on gradient imaging with punctate low signal on T2-weighted imaging and surrounding mild T2 hyperintensity, suspected to represent subacute blood, a minimal amount of surrounding edema. There is a chronic infarct with hemosiderin staining and cystic encephalomalacia in the anterior right basal ganglia. Marginal gliosis and volume loss present at the site with secondary ex vacuo dilatation of the frontal horn of the right lateral ventricle. There are chronic microhemorrhages in the left occipital lobe, anterior right occipital lobe superiorly, and in the left hippocampus. There is a small chronic infarct in the right cerebellar hemisphere. Chronic infarcts visible in the basal ganglia and left thalamus. No diffusion abnormalities are identified to suggest an acute infarct. No evidence of hydrocephalus. Generalized parenchymal volume loss noted. No midline shift is seen. [id number] chronic white matter microangiopathic changes noted. No extra-axial fluid collections are seen. The brainstem is normal. The craniovertebral junction and remaining midline structures are normal. The marrow is low in signal in the cervical vertebrae on T1-weighted imaging. The major intracranial flow voids at the level of the [place] are preserved. The dural venous sinus flow voids are maintained. The mastoid air cells are well aerated. Mild ethmoid sinus mucosal thickening noted. MR/MR head/brain wo con IMPRESSION: 1. Suspected focal late subacute blood products in the dorsal right basal ganglia without mass effect or edema. 2. Additional smaller early subacute parenchymal blood products in the right hippocampus with mild surrounding edema and very mild mass effect upon the temporal horn of the right lateral ventricle. 3. Focal cystic encephalomalacia and gliosis with hemosiderin staining in the anterior right basal ganglia which may be due to a prior parenchymal hemorrhage or hemorrhagic infarct. 4. Chronic lacunar infarcts in the basal ganglia, left thalamus, and cerebellum. Mild amount of scattered chronic microhemorrhages in the brain parenchyma as described. 5. Uxbi-bi-lyrhfcox chronic white matter microangiopathy and generalized parenchymal volume loss. 6. Generalized signal abnormality within the bone marrow. Possible etiologies include but are not limited to stimulated red marrow, as can be seen with smoking and iron deficiency anemia. Recommend correlation with clinical history and consider a CBC analysis for further workup.
--- NOTE | ~2022-10-10 | CT_ITS ---
EXAMINATION: CT HEAD WITHOUT CONTRAST CLINICAL INFORMATION: Headache, on anticoagulation COMPARISON: 08/14/2022 TECHNIQUE: Contiguous axial imaging was performed from the skull base to vertex without intravenous administration of contrast. This CT examination was performed using dose optimization techniques as appropriate, variously including the following: *Automated exposure control *Adjustment of mA and/or kV according to patient size (this includes techniques or standardized protocols for targeted exams where dose is matched to indication/reason for exam; i.e. extremities or head) *Use of iterative reconstruction technique DLP: 629 mGy-cm FINDINGS: There is a new focus of hyperattenuation in the right temporal lobe near the temporal horn measuring up to 8 mm on image 132/210; this is new from prior and suspicious for a small amount of acute parenchymal hemorrhage. No abnormal mass-effect or midline shift is seen. Grande to white matter differentiation is well preserved. No extra-axial fluid collections are identified. The ventricles are normal in size. There is mild periventricular white matter hypoattenuation consistent with chronic small vessel ischemic disease. Redemonstrated chronic right frontal infarct. Mineralization in the bilateral basal ganglia is noted. The osseous structures and soft tissues are normal. The mastoid air cells and visualized portions of the paranasal sinuses are well-aerated. CT/CT head/brain wo IV con IMPRESSION: New focus of hyperattenuation in the right temporal lobe measuring 8 mm, suspicious for a small amount of acute parenchymal hemorrhage. This critical result was discussed with Dr. Bansal on 10/11/2022 2:19 AM, and it was ascertained that the content and urgency of the report was understood at the time of direct communication.
[2022-10-11] VITALS (9 sets, daily range): BP systolic 133–182; BP diastolic 43–73; PULSE 53–64; RESP 15–20; TEMP 36.3–36.7; O2SAT 95–100; BMI 34.2
[2022-10-11 00:49] LABS: MANUAL DIFF FLAG NO
[2022-10-11 00:50] LABS: Basophils Percent Auto 0.7 % (0-2); Eosinophils Absolute Auto 0.2 X10*3/uL (0.0-0.4); Eosinophils Percent Auto 4.4 % (0-4); Hematocrit 31.2 % (37.0-47.0); Hemoglobin 9.6 g/dl (12.0-16.0); Imm Gran Abs Auto 0.02 X10*3/uL (0.00-0.03); Imm Gran Pct Auto 0.4 % (0.0-0.4); Lymphocytes Absolute Auto 0.8 X10*3/uL (1.2-4.9); Mean Corpuscular HGB Conc 30.8 g/dl (31.0-35.0); Mean Corpuscular Hemoglobin 28.5 pg (27.0-33.0); Mean Corpuscular Volume 92.6 fL (80.0-98.0); Mean Platelet Volume 11.8 fL (9.4-12.3); Monocytes Absolute Auto 0.6 X10*3/uL (0.1-1.2); Monocytes Percent Auto 10.7 % (2-11); Neutrophils Absolute Auto 3.8 x10*3/uL (2.0-8.3); Neutrophils Percent Auto 69.8 % (45-73); Platelet Count 144 X10*3/uL (160-400); Red Blood Count 3.37 X10*6/uL (4.20-5.50); Red Cell Distribution Width 15.5 % (11.0-16.0); White Blood Count 5.4 X10*3/uL (4.8-10.8)
[2022-10-11 00:55] LABS: INTERNATIONAL NORM RATIO 2.9 (0.9-1.1); Prothrombin Time 34.4 SEC (10.0-13.1)
[2022-10-11 01:04] LABS: Alanine Aminotransferase 8 U/L (0-31); Albumin Level 3.4 g/dL (3.5-5.0); Alkaline Phosphatase 183 U/L (39-117); Anion Gap 12 (12-20); Aspartate Amino Transferase 14 U/L (5-31); Bilirubin Total 1.1 mg/dL (0.0-1.0); Blood Urea Nitrogen 13 mg/dL (9-16); Calcium 8.5 mg/dL (8.4-10.2); Carbon Dioxide 32 mmol/L (22-29); Chloride 96 mmol/L (96-108); Creatinine Clr Calc Pharmacy 14.8; Estimated Glomerular Filt Rate 15; Glucose Random 142 mg/dL (60-115); Potassium 3.8 mmol/L (3.3-5.1); Sodium 136 mmol/L (135-145); Total Protein 6.2 g/dL (6.5-8.0)
[2022-10-11] MEDS: Acetaminophen 325 MG TABLET 650 MG PO (01:27)
--- NOTE | 2022-10-11 02:29 | ED.HA ---
HPI - Headache General Chief Complaint: Headache Stated Complaint: headache Time Seen by Provider: 10/10/22 23:59 History of Present Illness HPI Narrative: ?77 years old lady with PMH of diabetes, AFib on Eliquis, CHF, ESRD on HD among others who presents to the hospital for headache for last 4 days got worse today with slightly elevated blood pressure today at dialysis center associated with nausea and chronic diarrhea no vomiting no history of fall or head injury on arrival patient's blood pressure 173/56 patient had right basal ganglion hemorrhage 2.2 cm in 04/13 when she was at [facility] still on Eliquis Related Data Home Medications Medication Instructions Recorded Confirmed insulin lispro 100 unit/mL 2 - 10 unit subcut QIDACHS 04/15/22 09/25/22 subcutaneous pen acetaminophen 325 mg tablet 325 mg PO Q6H PRN Mild Pain (Scale 07/19/22 09/25/22 Score 1-4) calcitriol 0.25 mcg capsule 0.5 mcg PO TUTHSA 07/19/22 09/25/22 lidocaine 5 % topical patch 1 patch topical DAILY 07/19/22 09/25/22 sevelamer carbonate 800 mg tablet 800 mg PO TIDWM 07/19/22 09/25/22 aspirin 81 mg tablet,delayed 81 mg PO DAILY 08/18/22 09/25/22 release docusate sodium 100 mg capsule 1 cap PO BID 08/18/22 09/25/22 sevelamer HCl 800 mg tablet 0 mg PO 09/25/22 09/25/22 Previous Rx's Medication Instructions Recorded TRANSPORT WHEELCHAIR #1 ea 08/03/21 blood-glucose meter (FreeStyle #1 ea 11/12/21 Lite Meter kit) Extra depth orthopedic shoes (1 #1 ea 11/16/21 pair) with customized heat molded multidensity innersoles (3 pair) syringe with needle 3 mL 27 gauge #6 ea 03/08/22 x 1 06/26 loratadine 10 mg tablet 10 mg PO DAILY 90 days #90 tabs 04/29/22 hydralazine 25 mg tablet 25 mg PO TID 90 days #270 tabs 05/13/22 pen needle, diabetic 32 gauge x #50 ea 06/05/22 (BD Sandra 2nd Gen Pen Needle) albuterol sulfate 90 mcg/actuation 2 inh inhalation Q6H PRN shortness 06/10/22 aerosol inhaler of breath or wheezing 30 days #18 grams blood-glucose meter (FreeStyle #1 ea 06/12/22 Lite Meter kit) cyanocobalamin (vitamin B-12) 1,000 mcg IM Q4W #3 mL 06/13/22 1,000 mcg/mL injection solution fluticasone propionate 115 2 puff inhalation Q12H 30 days #12 06/13/22 mcg-salmeterol 21 mcg/actuation grams HFA inhaler (Advair HFA) insulin glargine 100 unit/mL (3 8 unit (0.08 mL) subcut BEDTIME 90 06/13/22 mL) subcutaneous pen ( #7.2 mL Solostar U-100 Insulin) lancets 28 gauge (FreeStyle #100 ea 06/13/22 Lancets) metoprolol tartrate 25 mg tablet 25 mg PO BID #60 tabs 06/13/22 DIGITAL SCALE #1 ea 06/14/22 pantoprazole 40 mg tablet,delayed 40 mg PO DAILY@0630 30 days #30 06/29/22 release tabs blood sugar diagnostic (FreeStyle #100 strips 08/05/22 Lite Strips) apixaban 5 mg tablet (Eliquis) 5 mg PO BID 90 days #180 tabs 09/03/22 gabapentin 100 mg capsule 100 mg PO BID 30 days #60 caps 09/03/22 montelukast 10 mg tablet 10 mg PO BEDTIME #90 tabs 09/03/22 bariatric scale #1 ea 09/27/22 blood pressure monitor #1 ea 09/27/22 nitrofurantoin 100 mg PO Q12H 7 days #14 caps 09/27/22 monohydrate/macrocrystals 100 mg capsule (Macrobid) atorvastatin 40 mg tablet 40 mg PO BEDTIME #90 tabs 09/29/22 Multaq 400 mg tablet (dronedarone) 400 mg PO BID #60 tabs 10/01/22 ferrous sulfate 325 mg (65 mg 325 mg PO DAILY #90 tabs 10/01/22 iron) tablet levothyroxine 25 mcg tablet 25 mcg PO DAILY@0600 #90 tabs 10/01/22 Allergies Allergy/AdvReac Type Severity Reaction Status Date / Time No Known Allergies Allergy Verified 09/25/22 12:46 Review of Systems Review of Systems: Yes all other systems are reviewed and are negative [facility] Past Medical History Medical History Acute pericardial effusion Anemia Anemia 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 Benign essential hypertension CAD (coronary artery disease) Chronic anticoagulation Chronic kidney disease, stage 4 (severe) Dyspnea ESRD (end stage renal disease) ESRD (end stage renal disease) ESRD (end stage renal disease) ESRD on dialysis Fluid overload Gastric ulcer GERD (gastroesophageal reflux disease) Hemodialysis patient HLD (hyperlipidemia) Hypertension Hypothyroidism Iron deficiency Nephrotic range proteinuria Obesity (BMI 30-39.9) Osteoarthritis Osteopenia PAF (paroxysmal atrial fibrillation) PAF (paroxysmal atrial fibrillation) Paroxysmal atrial fibrillation Pernicious anemia Postoperative hematoma involving digestive system following digestive system procedure Pure hypercholesterolemia Toe amputee Type 2 diabetes mellitus Surgical History History of laparoscopic cholecystectomy (08/21/22) Hx of appendectomy S/P arteriovenous (AV) fistula creation Social History Social History Household Members: Family [facility] Housing: House Do you presently have visiting nurse or other home services: Yes Alcohol intake: unknown Patient Tobacco Use Status: Never used Tobacco e-Cigarette/Vaping Use: Never Used Second Hand Smoke Exposure: No Advance Directives: Yes Advance Directives on File: Yes Advance Directives Date on File: 04/10/22 service: No Cognitive needs: Yes Hearing needs: No Vision needs: No Physical Exam Vital Signs: Vital Signs: Last Vital Signs Temp 98.1 F 10/11/22 02:00 Pulse 56 10/11/22 06:08 Resp 16 10/11/22 06:08 BP 134/62 10/11/22 06:08 Pulse Ox 95 10/11/22 06:08 O2 Del Method Room Air 10/11/22 06:08 BMI result Body Mass Index 34.2 Appearance: Alert. Oriented X3. Mild distress. GCS 15 Eyes: PERRLA, No Nystagmus ENT: Pharynx normal. Oral Mucosa moist Neck: Normal inspection. Neck supple. CVS: Normal heart rate and rhythm. Pulses normal. Respiratory: No respiratory distress. Equal air entry bilateral, no wheezing/rales/rhonchi Abdomen: Soft and nontender. Bowel sounds are present, no mass palpable, no CVA tenderness Skin: Skin warm and dry. Normal skin color. Normal skin turgor. Extremities: No lower extremity edema. No calf tenderness Neuro: Oriented X 3. No motor deficit. No sensory deficit.No cerebellar signs , cranial nerves II-XII intact Medications Administered Discontinued Medications Generic Name Dose Route Start Last Admin Trade Name Reema PRN Reason Stop Dose Admin Acetaminophen 650 mg 10/11/22 00:47 10/11/22 01:27 Acetaminophen 325 Mg Tablet PO 10/11/22 00:48 650 mg ONCE ONE Administration Hydralazine HCl 25 mg 10/11/22 05:23 10/11/22 05:28 Hydralazine Hcl 25 Mg Tablet PO 10/11/22 05:24 25 mg ONCE ONE Administration Protocol Medical Decision Making Medical Decision Making [facility] Narrative: Patient's headache with history of cerebral bleed in the past on Eliquis history of paroxysmal AFib end-stage renal disease on dialysis CT scan showed new 8 mm right temporal intracerebral hemorrhage without any midline shift as patient is on Eliquis since 09/25 GCS 15 will transfer the patient to [facility] with Dr. Lopez neurologist at [facility] who compared her previous CT scan to current CT scan and feels the hyperdensity was present in 03/14 also when she had a basal ganglion bleed. Patient having headache for last 4 days on Eliquis GCS 15 feels comfortable after Tylenol blood pressure is controlled advised to have repeat MRI today to confirm whether the blood collection is new or old for now we will hold Kcentra as patient vitals are stable and is doubtful she has a fresh bleed 06:45 Patient vitals stable GCS 15 no focal deficit signed out to Dr. Yap pending MRI to rule out any acute bleed patient will be discharged home if there is no acute bleed Lab Data [facility] Lab Attestation statement: I reviewed the patient's lab results. 10/11/22 00:32 10/11/22 00:32 Labs: Lab Results 10/11/22 10/11/22 10/11/22 Range/Units 00:32 00:32 00:32 WBC 5.4 (4.8-10.8) X10*3/uL RBC 3.37 L (4.20-5.50) X10*6/uL Hgb 9.6 L (12.0-16.0) g/dl Hct 31.2 L (37.0-47.0) % MCV 92.6 (80.0-98.0) fL MCH 28.5 (27.0-33.0) pg MCHC 30.8 L (31.0-35.0) g/dl RDW 15.5 (11.0-16.0) % Plt Count 144 L D (160-400) X10*3/uL MPV 11.8 (9.4-12.3) fL Immature Gran % (Auto) 0.4 (0.0-0.4) % Neut % (Auto) 69.8 (45-73) % Lymph % (Auto) 14.0 L (20-40) % Andrew % (Auto) 10.7 (2-11) % Eos % (Auto) 4.4 H (0-4) % Baso % (Auto) 0.7 (0-2) % Lymph # (Auto) 0.8 L (1.2-4.9) X10*3/uL Andrew # (Auto) 0.6 (0.1-1.2) X10*3/uL Eos # (Auto) 0.2 (0.0-0.4) X10*3/uL Baso # (Auto) 0.0 (0.0-0.2) X10*3/uL Abs Immat Gran (auto) 0.02 (0.00-0.03) X10*3/uL Absolute Neuts (auto) 3.8 (2.0-8.3) x10*3/uL Absolute Nucleated RBC 0.000 (0.0-0.012) X10*3/uL Nucleated RBC % (auto) 0.0 (0.0-0.2) /100WBC PT 34.4 H (10.0-13.1) SEC INR 2.9 H (0.9-1.1) Sodium 136 (135-145) mmol/L Potassium 3.8 (3.3-5.1) mmol/L Chloride 96 (96-108) mmol/L Carbon Dioxide 32 H (22-29) mmol/L Anion Gap 12 (12-20) BUN 13 (9-16) mg/dL Creatinine 3.05 H (0.5-1.4) mg/dL Estim Creat Clear Calc 14.8 Estimated GFR 15 Random Glucose 142 H (60-115) mg/dL Calcium 8.5 D (8.4-10.2) mg/dL Total Bilirubin 1.1 H (0.0-1.0) mg/dL AST 14 (5-31) U/L ALT 8 (0-31) U/L Alkaline Phosphatase 183 H (39-117) U/L Total Protein 6.2 L (6.5-8.0) g/dL Albumin 3.4 L (3.5-5.0) g/dL Independent Interpretation I performed an independent interpretation of an: EKG Interpretation: Normal sinus rhythm heart rate 62 beats per minute nonspecific T-wave changes no acute ST-T no acute ischemia Discharge Plan Discharge Clinical Impression: Headache, End stage chronic kidney disease, History of intracerebral hemorrhage without residual deficit Patient Disposition: Still a Patient Prescriptions: No Action (DME) Extra depth orthopedic shoes (1 pair) with customized heat molded multidensity innersoles (3 pair) See Rx Instructions .Route .MEDSUPPLY Qty: 1 0RF Rx Instructions: As directed (DME) syringe with needle 3 mL 27 gauge x 1 1/4 syringe See Rx Instructions .Route Qty: 6 1RF Rx Instructions: As directed once a month (for Vitamin B12 injections) loratadine 10 mg tablet 10 mg PO DAILY 90 Days Qty: 90 3RF Rx Instructions: Take 1 tablet by mouth daily hydralazine 25 mg tablet 25 mg PO TID 90 Days Qty: 270 3RF Protocol: Hold for SBP< HOLD for SBP < : 90 (DME) blood-glucose meter [FreeStyle Lite Meter] Kit See Rx Instructions .Route Qty: 1 0RF Rx Instructions: As directed cyanocobalamin (vitamin B-12) 1,000 mcg/mL solution 1,000 mcg IM Q4W Qty: 3 1RF insulin glargine [Lantus Solostar U-100 Insulin] 100 unit/mL (3 mL) insulin pen 8 unit subcut BEDTIME 90 Days Qty: 7.2 3RF Advair HFA 115-21 mcg/actuation HFA aerosol inhaler 2 puff inhalation Q12H 30 Days Qty: 12 11RF metoprolol tartrate 25 mg tablet 25 mg PO BID Qty: 60 5RF Protocol: Hold for SBP/HR < HOLD for SBP < : 90 HOLD for HR < : 60 (DME) lancets [FreeStyle Lancets] 28 gauge misc See Rx Instructions .ROUTE .MEDSUPPLY Qty: 100 12RF Rx Instructions: check BS 3x/day (DME) DIGITAL SCALE See Rx Instructions .Route .MEDSUPPLY Qty: 1 0RF Rx Instructions: As directed pantoprazole 40 mg tablet,delayed release (DR/EC) 40 mg PO DAILY@0630 30 Days Qty: 30 5RF (DME) FreeStyle Lite Strips Strip See Rx Instructions .ROUTE .COMPLEX Qty: 100 12RF Dose Instruction: USE DIRECTED ONCE A DAY Rx Instructions: USE DIRECTED ONCE A DAY Eliquis 5 mg tablet 5 mg PO BID 90 Days Qty: 180 0RF montelukast 10 mg tablet 10 mg PO BEDTIME Qty: 90 0RF gabapentin 100 mg capsule 100 mg PO BID 30 Days Qty: 60 1RF (DME) blood pressure monitor Kit See Rx Instructions .Route Qty: 1 0RF Rx Instructions: As directed (DME) bariatric scale See Rx Instructions .Route .MEDSUPPLY Qty: 1 0RF Rx Instructions: As directed nitrofurantoin monohyd/m-cryst [Macrobid] 100 mg capsule 100 mg PO Q12H 7 Days Qty: 14 0RF Rx Instructions: must administer with a meal/food atorvastatin 40 mg tablet 40 mg PO BEDTIME Qty: 90 0RF ferrous sulfate 325 mg (65 mg iron) tablet 325 mg PO DAILY Qty: 90 1RF levothyroxine 25 mcg tablet 25 mcg PO DAILY@0600 Qty: 90 0RF Multaq 400 mg tablet 400 mg PO BID Qty: 60 3RF Rx Instructions: must administer with a meal/food insulin lispro 100 unit/mL insulin pen 2 - 10 unit subcut QIDACHS Rx Instructions: PER SLIDING SCALE acetaminophen 325 mg Tablet 325 mg PO Q6H PRN (Reason: Mild Pain (Scale Score 1-4)) lidocaine 5 % adhesive patch,medicated 1 patch TOPICAL DAILY Protocol: Apply to: Apply to: NECK AND LEGS Rx Instructions: leave on most painful area for up to 12 hrs sevelamer carbonate 800 mg tablet 800 mg PO TIDWM Rx Instructions: must administer with a meal/food calcitriol 0.25 mcg Capsule 0.5 mcg PO TUTHSA Rx Instructions: administer after dialysis on dialysis days aspirin 81 mg Tablet,Delayed Release (Dr/Ec) 81 mg PO DAILY docusate sodium 100 mg capsule 1 cap PO BID Hold Instructions: Resume on 09/27/22. pending MD instructions (DME) TRANSPORT WHEELCHAIR See Rx Instructions .Route .MEDSUPPLY Qty: 1 0RF Rx Instructions: As directed (DME) pen needle, diabetic [BD Sandra 2nd Gen Pen Needle] 32 gauge x 5/32 needle See Rx Instructions .Route Qty: 50 0RF Rx Instructions: As directed (DME) blood-glucose meter [FreeStyle Lite Meter] Kit See Rx Instructions .Route Qty: 1 0RF Rx Instructions: As directed 3-4 times a day sevelamer HCl 800 mg tablet 0 mg PO albuterol sulfate 90 mcg/actuation HFA aerosol inhaler 2 inh inhalation Q6H PRN (Reason: shortness of breath or wheezing) 30 Days Qty: 18 12RF
--- NOTE | 2022-10-11 02:35 | ECG_ITS ---
Test Reason : HEADACHE Blood Pressure : / mmHG Vent. Rate : 062 BPM Atrial Rate : 062 BPM P-R Int : 218 ms QRS Dur : 090 ms QT Int : 460 ms P-R-T Axes : 073 063 -44 degrees QTc Int : 466 ms Sinus rhythm with 1st degree A-V block Nonspecific T wave abnormality Abnormal ECG When compared with ECG of 31-AUG-2022 08:18, Nonspecific T wave abnormality now evident in Lateral leads Referred By: Gabriel Bowles Electronically Signed By:BETY NIÑO
--- NOTE | 2022-10-11 04:10 | MHC.EDTECH ---
Call out to [facility] transfer line [phone]
--- NOTE | 2022-10-11 04:42 | PC.NURSE ---
Plan for MRI and re-eval in the morning. Per Dr. Brito at [facility] bleed appears possibly chronic. No Kcentra to be given per Dr. Bowles.
[2022-10-11] MEDS: hydrALAZINE HCl 25 MG TABLET PO (05:28)
--- NOTE | 2022-10-11 06:28 | PC.NURSE ---
Pt states she feels like she is having trouble breathing. Oxygen saturation 93% Pt wears oxygen as needed at home. Places on 2L for comfort. Voices thanks.
--- NOTE | 2022-10-11 06:32 | PC.NURSE ---
Pt yang Gomez updated on POC.
--- NOTE | 2022-10-11 06:54 | PC.NURSE ---
Report to Krista HUYNH for continued care.
--- NOTE | 2022-10-11 07:34 | PC.NURSE ---
Pt alert and oriented, resp even and unlabored. Awaiting MRI, neuros grossly intact.
--- NOTE | 2022-10-11 09:07 | PC.NURSE ---
Pt off to MRI at this time, reporting being hungry aware of plan to wait for food until after MRI results
--- NOTE | 2022-10-11 10:37 | PC.NURSE ---
Pt returned from MRI, alert and oriented, respirations even and unlabored. Neuros remain intact, awaiting MRI results for dispo
--- NOTE | 2022-10-11 12:03 | MHC.STROKE ---
I REVIEWED CASE WITH ED PROVIDER, I ALSO DETERMINED THAT SHE WAS LA[place] [facility] [place] DISACHARGED TO [facility], AT THAT TIME SHE WAS OFF ELIQUIS. SHE WAS DISCHARGED FROM [facility] ON 09/17/22. SHE WAS RESTARTED ON ELIQUIS SOMETIME AFTER THAT DATE. TODAY HER MRI AND CT ARE ABNORMAL WITH SOME HEMORRHAGIC AREAS, I HAVE NOTIFIED DR GUTIERREZ TO REVIEW THESE SCANS AND HE WILL SPEAK WITH DR. WESTON. HER CURRENT INR IS 2.9. HX OF ANEMIA, REFER TO OLD RECORD, SHE HAD RECENT CHOL/LAP 08/2022. SHE ALSO IS A DIALYSIS PATIENT M-W-F, SHE IS AWAKE ALERT AND PASSED HER NURSING SWALLOW SCREEN. I WILL CONTINUE TO FOLLOW.
--- NOTE | 2022-10-11 12:58 | P.CNNE_ITS ---
History of Present Illness Data of Consult Service Date: 10/11/22 Primary Care Provider: Lonnie Khan MD HPI Reason for consult: Stroke 77 years old woman with end-stage renal disease and atrial fibrillation on Eliquis came to hospital with 2-3 days of headache. There was no sign of any nausea vomiting or seizure. Initial head CT revealed a hyperdensity which was evaluated by an MRI of brain and this consultation was requested. When I saw her in emergency room she was comfortable asking if she was going to be discharged with no sign of distress. Review of Systems Review of Systems: Recent complaint of headache with no cold or flu-like illness PMFSH Past Medical History Medical History Acute pericardial effusion Anemia Anemia 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 Benign essential hypertension CAD (coronary artery disease) Chronic anticoagulation Chronic kidney disease, stage 4 (severe) Dyspnea ESRD (end stage renal disease) ESRD (end stage renal disease) ESRD (end stage renal disease) ESRD on dialysis Fluid overload Gastric ulcer GERD (gastroesophageal reflux disease) Hemodialysis patient HLD (hyperlipidemia) Hypertension Hypothyroidism Iron deficiency Nephrotic range proteinuria Obesity (BMI 30-39.9) Osteoarthritis Osteopenia PAF (paroxysmal atrial fibrillation) PAF (paroxysmal atrial fibrillation) Paroxysmal atrial fibrillation Pernicious anemia Postoperative hematoma involving digestive system following digestive system procedure Pure hypercholesterolemia Toe amputee Type 2 diabetes mellitus Surgical History Surgical History History of laparoscopic cholecystectomy (08/21/22) Hx of appendectomy S/P arteriovenous (AV) fistula creation Social History Social History Household Members: Family [facility] Housing: House Do you presently have visiting nurse or other home services: Yes Alcohol intake: unknown Patient Tobacco Use Status: Never used Tobacco e-Cigarette/Vaping Use: Never Used Second Hand Smoke Exposure: No Advance Directives: Yes Advance Directives on File: Yes Advance Directives Date on File: 04/10/22 service: No Cognitive needs: Yes Hearing needs: No Vision needs: No Meds Allergies Allergy/AdvReac Type Severity Reaction Status Date / Time No Known Allergies Allergy Verified 09/25/22 12:46 Home Medications Medication Instructions Recorded Confirmed Last Taken Type insulin lispro 100 unit/mL 2 - 10 unit subcut QIDACHS 04/15/22 09/25/22 08/30/22 History subcutaneous pen acetaminophen 325 mg tablet 325 mg PO Q6H PRN Mild Pain (Scale 07/19/22 09/25/22 Unknown History Score 1-4) calcitriol 0.25 mcg capsule 0.5 mcg PO TUTHSA 07/19/22 09/25/22 Unknown History lidocaine 5 % topical patch 1 patch topical DAILY 07/19/22 09/25/22 Unknown History sevelamer carbonate 800 mg tablet 800 mg PO TIDWM 07/19/22 09/25/22 08/30/22 History aspirin 81 mg tablet,delayed 81 mg PO DAILY 08/18/22 09/25/22 08/30/22 History release docusate sodium 100 mg capsule 1 cap PO BID 08/18/22 09/25/22 08/30/22 History sevelamer HCl 800 mg tablet 0 mg PO 09/25/22 09/25/22 Unknown History Physical Exam Vital Signs: Vital Signs: Last Vital Signs Temp 98.0 F 10/11/22 12:43 Pulse 54 10/11/22 12:43 Resp 20 10/11/22 12:43 BP 175/44 H 10/11/22 12:43 Pulse Ox 100 10/11/22 12:43 O2 Del Method Room Air 10/11/22 12:43 BMI result Body Mass Index 34.2 Neuro: Other: Alert and awake with normal spontaneity of speech fluency comprehension and affect. She did not speak Mohawk. Face was symmetrical. Visual villalobos seem to be okay. There was no focal arm or leg weakness and plantars were flexor. Results Labs 10/11/22 00:32 10/11/22 00:32 Labs: Short CBC 10/11/22 Range/Units 00:32 WBC 5.4 (4.8-10.8) X10*3/uL Hgb 9.6 L (12.0-16.0) g/dl Hct 31.2 L (37.0-47.0) % Plt Count 144 L D (160-400) X10*3/uL BMP 10/11/22 00:32 Sodium 136 Potassium 3.8 Chloride 96 Carbon Dioxide 32 H BUN 13 Creatinine 3.05 H Calcium 8.5 D Liver Function 10/11/22 Range/Units 00:32 Total Bilirubin 1.1 H (0.0-1.0) mg/dL AST 14 (5-31) U/L ALT 8 (0-31) U/L Alkaline Phosphatase 183 H (39-117) U/L Albumin 3.4 L (3.5-5.0) g/dL CT scan of brain and MRI were reviewed. It revealed a small area of median take temporal lesion probably a subacute hemorrhagic infarction. Assessment and Plan (1) Headache: Status: Acute 77 years old woman with multiple underlying medical issues including atrial fibrillation on Eliquis an end-stage renal disease on dialysis presented with few days of nonspecific headache. Imaging revealed a small right medial temporal hemorrhagic infarction. This lesion does not require any intervention. Resolution what happened on its own. I would recommend holding Eliquis for a week and restarting it on 2.5 mg twice a day. Otherwise hypotension should be avoided. Time Spent With Patient Time: Total time managing care of this patient today ____ minutes. Procedures Date of Service Date of Service: 10/11/22
== END 2022-10-11 15:35 | disposition home or self-care (01) ==
PROVIDERS: Internal Medicine; Emergency Provider Emergency Medicine Emergency Medical Services; PCP Internal Medicine
DX: R51.9 Headache, unspecified (principal); I48.91 Unspecified atrial fibrillation; Z79.01 Long term (current) use of anticoagulants; Z79.899 Other long term (current) drug therapy
CPT/HCPCS: 36415; 70450; 70551; 80053; 85025; 85610; 93005; 99285

== ENCOUNTER → 2022-10-18 09:45 | Outpatient (BNVA) | payer OTHER, SELFPAY | PROVIDERS: PCP Internal Medicine; Visit Provider Surgery | DX: R19.7 Diarrhea, unspecified (principal); R15.9 Full incontinence of feces; E11.22 Type 2 diabetes mellitus with diabetic chronic kidney disease; E11.65 Type 2 diabetes mellitus with hyperglycemia; N18.6 End stage renal disease; I10 Essential (primary) hypertension; Z68.45 Body mass index [BMI] 70 or greater, adult; Z90.49 Acquired absence of other specified parts of digestive tract; Z99.2 Dependence on renal dialysis; Z79.899 Other long term (current) drug therapy | CPT/HCPCS: 99212 ==

== ENCOUNTER → 2022-10-21 14:10 | Outpatient (BNVA) | payer OTHER, SELFPAY | PROVIDERS: PCP Internal Medicine; Visit Provider Physician Assistant | DX: R11.0 Nausea (principal); E11.22 Type 2 diabetes mellitus with diabetic chronic kidney disease; I12.0 Hypertensive chronic kidney disease with stage 5 chronic kidney disease or end stage renal disease; N18.6 End stage renal disease; Z79.4 Long term (current) use of insulin; Z99.2 Dependence on renal dialysis | CPT/HCPCS: 99212 ==

== ENCOUNTER 2022-10-22 07:54 | Observation (INO) | payer OTHER, SELFPAY ==
--- NOTE | ~2022-10-22 | CT_ITS ---
CT HEAD WITHOUT IV CONTRAST CT CERVICAL SPINE WITHOUT IV CONTRAST INDICATION: Dizziness. Posterior neck pain. COMPARISON: Head CT 10/11/2022. Brain MRI from the same day. TECHNIQUE: Multidetector CT acquisitions of the head and cervical spine were obtained without IV contrast. Multiplanar reformats were acquired and utilized for image interpretation. This CT examination was performed using dose optimization techniques as appropriate, variously including the following: *Automated exposure control *Adjustment of mA and/or kV according to patient size (this includes techniques or standardized protocols for targeted exams where dose is matched to indication/reason for exam; i.e. extremities or head) *Use of iterative reconstruction technique FINDINGS: HEAD: Clearing blood products within the anterior right hippocampus. Stable pattern calcification within the dorsal right basal ganglia and the left globus pallidus when compared to studies dated back to 08/14/2022. There is no hydrocephalus, extra-axial surface collection, midline shift, or other herniation pattern. Grande to white matter differentiation is diffusely maintained without evidence of an evolved acute territorial infarct. The basilar cisterns are preserved. No significant soft tissue abnormality. No acute osseous abnormality. The paranasal sinuses and the mastoid air cells are well aerated. CERVICAL SPINE: There are multilevel endplate osteophytes. Vertebral body heights are maintained. No acute fractures and no acute subluxations. There is no prevertebral soft tissue swelling. Right IJ dual-lumen dialysis catheter. Atherosclerotic calcification involving the carotid bifurcations bilaterally. Imaged lung apices are clear. CT/CT cervical spine wo IV con IMPRESSION: - No definite acute intracranial findings. Clearing blood products within the anterior right hippocampus, demonstrated to be subacute on the brain MRI from 10/11/2022. Stable pattern calcification within the dorsal right basal ganglia and the left globus pallidus when compared to studies dated back to 08/14/2022. Chronic encephalomalacia and gliosis within the right basal ganglia with associated volume loss unchanged. No worsening mass effect intracranially. Given these evolving changes, if there is any clinical concern for superimposed acute blood products, a MRI would be more sensitive in assessment. - No acute osseous findings within the cervical spine to Multilevel cervical spondylosis.
--- NOTE | ~2022-10-22 | XR_ITS ---
EXAMINATION: XR CHEST CLINICAL INFORMATION: Pneumonia. COMPARISON: 06/01/2022 chest radiograph. TECHNIQUE: Frontal view of the chest was obtained. FINDINGS: Support devices: Right-sided large-bore central venous catheter with tip in the right atrium. Status post right shoulder ORIF without overt abnormality or change. No significant abnormality is noted involving the heart, lungs, mediastinum, bony thorax or soft tissues. XR/XR chest 1V IMPRESSION: No acute cardiopulmonary process.
[2022-10-22 08:00] VITALS: BP 102/83; BP 70/34; PULSE 42; PULSE 44; RESP 14; TEMP 36.6; O2SAT 100; O2SAT 99; BMI 34.6
--- NOTE | 2022-10-22 08:46 | ECG_ITS ---
Test Reason : bradycardia Blood Pressure : / mmHG Vent. Rate : 047 BPM Atrial Rate : 047 BPM P-R Int : 210 ms QRS Dur : 084 ms QT Int : 508 ms P-R-T Axes : -05 078 002 degrees QTc Int : 449 ms Sinus bradycardia with marked sinus arrhythmia with 1st degree A-V block Cannot rule out Anterior infarct , age undetermined Abnormal ECG When compared with ECG of 11-OCT-2022 02:36, Nonspecific T wave abnormality, improved in Lateral leads Referred By: Jose Payne Electronically Signed By:HANY MOSS MD
--- NOTE | 2022-10-22 08:50 | PC.NURSE ---
pt a+o x4. she c/o 5/10 chronic neck pain, dizziness, weakness. hx of stroke, on eliquis. pt is a dialysis pt, T//S. did not go this morning d/t her complaints. pt's HR 42 per ems, HR in ed 44. pt also c/o itching all over. denies n/v/d. no fever
--- NOTE | 2022-10-22 09:09 | ED.GENADULT ---
HPI - General Adult General Chief complaint: General Medical Stated complaint: LOW HR, ON DIALYSIS PER EMS Time Seen by Provider: 10/22/22 08:44 Source: patient Mode of arrival: ambulatory Limitations: no limitations History of Present Illness HPI narrative: 77-year-old female with past medical history of end-stage renal disease, chronic hyponatremia, cholecystitis, AFib, asthma COPD overlap, anxiety disorder presents to the ED for generalized ithincess, chronic posterior neck pain, and dizziness described as lightheadeness. Patient denies any slurred speech, facial droop, paralysis of extremities, chest pain, loss of vision, coughing, fever, or chills. Patient states she has a Friday dialysis patient. Patient's last dialysis was this past Friday. Patient dialysis was to also be today but patient came to the ED instead. Related Data Home Medications Medication Instructions Recorded Confirmed acetaminophen 325 mg tablet 325 mg PO Q6H PRN Mild Pain (Scale 07/19/22 10/22/22 Score 1-4) sevelamer carbonate 800 mg tablet 800 mg PO TIDWM 07/19/22 10/22/22 aspirin 81 mg tablet,delayed 81 mg PO DAILY 08/18/22 10/22/22 release docusate sodium 100 mg capsule 1 cap PO BID 08/18/22 10/21/22 apixaban 5 mg tablet (Eliquis) 5 mg PO BID 10/22/22 10/22/22 Previous Rx's Medication Instructions Recorded TRANSPORT WHEELCHAIR #1 ea 08/03/21 Extra depth orthopedic shoes (1 #1 ea 11/16/21 pair) with customized heat molded multidensity innersoles (3 pair) syringe with needle 3 mL 27 gauge #6 ea 03/08/22 x 1 06/26 loratadine 10 mg tablet 10 mg PO DAILY 90 days #90 tabs 04/29/22 hydralazine 25 mg tablet 25 mg PO TID 90 days #270 tabs 05/13/22 pen needle, diabetic 32 gauge x #50 ea 06/05/22 (BD Sandra 2nd Gen Pen Needle) albuterol sulfate 90 mcg/actuation 2 inh inhalation Q6H PRN shortness 06/10/22 aerosol inhaler of breath or wheezing 30 days #18 grams blood-glucose meter (FreeStyle #1 ea 06/12/22 Lite Meter kit) fluticasone propionate 115 2 puff inhalation Q12H 30 days #12 06/13/22 mcg-salmeterol 21 mcg/actuation grams HFA inhaler (Advair HFA) lancets 28 gauge (FreeStyle #100 ea 06/13/22 Lancets) metoprolol tartrate 25 mg tablet 25 mg PO BID #60 tabs 06/13/22 DIGITAL SCALE #1 ea 06/14/22 pantoprazole 40 mg tablet,delayed 40 mg PO DAILY@0630 30 days #30 06/29/22 release tabs blood sugar diagnostic (FreeStyle #100 strips 08/05/22 Lite Strips) gabapentin 100 mg capsule 100 mg PO BID 30 days #60 caps 09/03/22 montelukast 10 mg tablet 10 mg PO BEDTIME #90 tabs 09/03/22 bariatric scale #1 ea 09/27/22 blood pressure monitor #1 ea 09/27/22 atorvastatin 40 mg tablet 40 mg PO BEDTIME #90 tabs 09/29/22 Multaq 400 mg tablet (dronedarone) 400 mg PO BID #60 tabs 10/01/22 ferrous sulfate 325 mg (65 mg 325 mg PO DAILY #90 tabs 10/01/22 iron) tablet levothyroxine 25 mcg tablet 25 mcg PO DAILY@0600 #90 tabs 10/01/22 diphenhydramine HCl 25 mg tablet 25 mg PO TID PRN itching 30 days 10/21/22 #90 tabs Allergies Allergy/AdvReac Type Severity Reaction Status Date / Time No Known Allergies Allergy Verified 10/22/22 08:36 Review of Systems Review of Systems: posterior cervical neck pain. Dizziness described as lightheadedness. Also generalized itchiness. Yes all other systems are reviewed and are negative PMFSH Past Medical History Medical History Acute pericardial effusion Anemia Anemia 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 Benign essential hypertension CAD (coronary artery disease) Chronic anticoagulation Chronic kidney disease, stage 4 (severe) Dyspnea ESRD (end stage renal disease) ESRD (end stage renal disease) ESRD (end stage renal disease) ESRD on dialysis Fluid overload Gastric ulcer GERD (gastroesophageal reflux disease) Hemodialysis patient HLD (hyperlipidemia) Hypertension Hypothyroidism Iron deficiency Nephrotic range proteinuria Obesity (BMI 30-39.9) Osteoarthritis Osteopenia PAF (paroxysmal atrial fibrillation) PAF (paroxysmal atrial fibrillation) Paroxysmal atrial fibrillation Pernicious anemia Postoperative hematoma involving digestive system following digestive system procedure Pure hypercholesterolemia Toe amputee Type 2 diabetes mellitus Surgical History H/O colonoscopy History of laparoscopic cholecystectomy (08/21/22) Hx of appendectomy S/P arteriovenous (AV) fistula creation Social History Social History Household Members: Family Household Members Other:: [facility] Housing: House Do you presently have visiting nurse or other home services: Yes Alcohol intake: unknown Patient Tobacco Use Status: Never used Tobacco e-Cigarette/Vaping Use: Never Used Second Hand Smoke Exposure: No Advance Directives: Yes Advance Directives on File: Yes Advance Directives Date on File: 08/22/22 service: No Cognitive needs: Yes Hearing needs: No Vision needs: No Physical Exam ED Vital Signs: Vital Signs - 24 hr 10/22/22 08:00 10/22/22 08:00 10/22/22 12:20 Temperature 97.9 F Pulse Rate 44 L 52 Respiratory Rate 14 14 Blood Pressure 102/83 170/67 H Pulse Oximetry 99 100 Oxygen Delivery Method Room Air Room Air 10/22/22 13:08 Temperature Pulse Rate 54 Respiratory Rate 15 Blood Pressure 145/75 H Pulse Oximetry 97 Oxygen Delivery Method Room Air BMI result Body Mass Index 34.6 Const General: cooperative, healthy appearing, comfortable, no acute distress, well developed and alert Orientation/consciousness: oriented to person, oriented to place, oriented to time and patient oriented x3 [facility]: Yes normal to inspection, Yes No palpable skull fracture present, Yes normocephalic, Yes atraumatic and No abrasion Eyes Other: negative nystagmus General: appearance normal, both eyes and all related structures Neck Neck: Yes normal visual inspection, Yes full ROM, Yes no lymphadenopathy, Yes no meningeal signs, Yes trachea midline, Yes supple, No anterior neck swelling and Yes tender (posterior cervical tenderness) Chest Chest palpation & inspection: normal inspection of the chest and normal palpation of entire chest wall Resp Effort & Inspection: normal respiratory effort and able to speak in complete sentences Auscultation: clear to auscultation bilaterally Cardio Jugular venous distension: no JVD Heart sounds: S1 normal heart sound present and S2 normal heart sound present GI Inspection: Yes normal to inspection and No abdominal wall ecchymosis Palpation (GI): Soft to palpation, not firm, nontender, no guarding and not rigid General: No CVA tenderness and Yes no CVA tenderness Back/Spine/Pelvis Back: no CVA tenderness, No CVA tenderness and No back tenderness Skin General skin exam: no rashes or lesions noted and elasticity normal Neuro General: oriented to person, oriented to place, oriented to time, patient oriented x3, gait normal, tone normal, moves all extremities, Normal light touch and pain sensation, no meningeal signs, no focal motor deficits, CN's II-XI intact bilaterally and normal sensation to monofilament Extrem Other: Bilateral lower extremity negative for swelling or pitting edema or calf tenderness. General: Yes normal to inspection and Yes full ROM Psych Appearance: grossly normal, well kempt and not disheveled Course Course Course Narrative: Patient well appearing and laughing with staff. Negative for any neuro deficits. Will do medical workup including EKG and check electrolytes and make sure there is no hyperkalemia. No chest pain will but will do troponin. Trucks were ordered to check for infection. Reevaluation(s) Reevaluation #1: EKG sinus bradycardia first degree block. Negative peaked T-waves. Chest x-ray negative pneumonia. Pending head CT cervical spine CT. Potassium 5.9. Will contact preform plate maker dialysis. Although no peaked T-waves due to bradycardia will give calcium gluconate. Lokelma ordered. Will order insulin and albuterol. Will contact preform plate maker Time: 10:48 Reevaluation #2: Patient discussed with preform plate maker Dr. Mancuso recommends patient be admitted for dialysis and observation of her bradycardia. Case accepted by hospitalist Dr. Burnett. CT scan of head shows same bleed not worsening. Negative for neuro deficits. Time: 17:03 Medications Administered Generic Name Dose Route Start Last Admin Trade Name Freq PRN Reason Stop Dose Admin Sodium Chloride 3 ml 10/22/22 16:00 10/22/22 15:40 0.9 % Sodium Chloride Flush 3 Ml Syringe IVFLUSH Not Given QSHIFT MARKIE Discontinued Medications Generic Name Dose Route Start Last Admin Trade Name Freq PRN Reason Stop Dose Admin Calcium Gluconate 2 gm in 100 mls @ 50 mls/hr 10/22/22 10:35 10/22/22 14:47 Calcium Gluconate IV 10/22/22 12:34 Infused ONCE ONE Infusion Dextrose 250 mls @ 750 mls/hr 10/22/22 10:45 10/22/22 13:07 D10 IV 10/22/22 11:04 Infused Q15M STA Infusion Insulin Human Regular 10 unit 10/22/22 10:45 10/22/22 12:40 Insulin Regular, Human 100 Unit/Ml 3 Ml Vial IVPUSH 10/22/22 10:46 10 unit ONCE ONE Administration Sodium Zirconium Cyclosilicate 10 gm 10/22/22 10:35 10/22/22 12:39 Sodium Zirconium Cyclosilicate 10 Gm Powd.Pack PO 10/22/22 10:36 10 gm ONCE ONE Administration Medical Decision Making Medical Decision Making MDM Narrative: 77-year-old female history of end-stage renal disease presents to the ED for fatigue, lightheadedness, and generalized pruritus. Patient found to be hyperkalemic and bradycardiac. Patient given hyperkalemia medications. Patient admitted for end-stage renal disease, hyperkalemia, and bradycardia. Differential Diagnosis Differential Diagnoses: The differential diagnosis associated with the presentation includes (Hyperkalemia, bradycardia, myocardial infarction, fluid overload, stroke, pneumonia) Admission/Observation Consideration of admission/observation: Escalation of care including admission/observation considered Consult Healthcare Provider Management of the patient was discussed with: Hospitalist (Anish) and Engineering Specialist (Dr. Mancuso) Lab Data [facility] Lab Attestation statement: I reviewed the patient's lab results. 10/22/22 10:00 10/22/22 10:00 Labs: Lab Results 10/22/22 10/22/22 10/22/22 Range/Units 09:06 10:00 10:00 WBC 6.6 (4.8-10.8) X10*3/uL RBC 4.03 L (4.20-5.50) X10*6/uL Hgb 11.5 L (12.0-16.0) g/dl Hct 37.9 D (37.0-47.0) % MCV 94.0 (80.0-98.0) fL MCH 28.5 (27.0-33.0) pg MCHC 30.3 L (31.0-35.0) g/dl RDW 17.4 H (11.0-16.0) % Plt Count 110 L (160-400) X10*3/uL MPV 12.1 (9.4-12.3) fL Immature Gran % (Auto) 0.5 H (0.0-0.4) % Neut % (Auto) 70.7 (45-73) % Lymph % (Auto) 15.1 L (20-40) % [place] % (Auto) 8.2 (2-11) % Eos % (Auto) 4.4 H (0-4) % Baso % (Auto) 1.1 (0-2) % Lymph # (Auto) 1.0 L (1.2-4.9) X10*3/uL [place] # (Auto) 0.5 (0.1-1.2) X10*3/uL Eos # (Auto) 0.3 (0.0-0.4) X10*3/uL Baso # (Auto) 0.1 (0.0-0.2) X10*3/uL Abs Immat Gran (auto) 0.03 (0.00-0.03) X10*3/uL Absolute Neuts (auto) 4.6 (2.0-8.3) x10*3/uL Absolute Nucleated RBC 0.000 (0.0-0.012) X10*3/uL Nucleated RBC % (auto) 0.0 (0.0-0.2) /100WBC PT (10.0-13.1) SEC INR (0.9-1.1) APTT (26.0-36.4) SEC Sodium 131 L (135-145) mmol/L Potassium 5.9 H D (3.3-5.1) mmol/L Chloride 96 (96-108) mmol/L Carbon Dioxide 23 (22-29) mmol/L Anion Gap 18 (12-20) BUN 49 H (9-16) mg/dL Creatinine 5.05 H* (0.5-1.4) mg/dL Estim Creat Clear Calc 9.0 Estimated GFR 8 POC Glucose 176 H (60-115) mg/dL Random Glucose 167 H (60-115) mg/dL Calcium 8.1 L (8.4-10.2) mg/dL Total Bilirubin 1.1 H (0.0-1.0) mg/dL AST 20 (5-31) U/L ALT 13 (0-31) U/L Alkaline Phosphatase 190 H (39-117) U/L Troponin I High Sens (<3.5-17.0) ng/L B-Natriuretic Peptide (<100) pg/mL Total Protein 6.7 (6.5-8.0) g/dL Albumin 3.8 (3.5-5.0) g/dL Influenza Type A (PCR) (Negative) Influenza Type B (PCR) (Negative) RSV RNA Qual (PCR) (Negative) SARS-CoV-2 RNA (RT-PCR) (Negative) 10/22/22 10/22/22 10/22/22 Range/Units 10:00 10:00 10:00 WBC (4.8-10.8) X10*3/uL RBC (4.20-5.50) X10*6/uL Hgb (12.0-16.0) g/dl Hct (37.0-47.0) % MCV (80.0-98.0) fL MCH (27.0-33.0) pg MCHC (31.0-35.0) g/dl RDW (11.0-16.0) % Plt Count (160-400) X10*3/uL MPV (9.4-12.3) fL Immature Gran % (Auto) (0.0-0.4) % Neut % (Auto) (45-73) % Lymph % (Auto) (20-40) % [place] % (Auto) (2-11) % Eos % (Auto) (0-4) % Baso % (Auto) (0-2) % Lymph # (Auto) (1.2-4.9) X10*3/uL [place] # (Auto) (0.1-1.2) X10*3/uL Eos # (Auto) (0.0-0.4) X10*3/uL Baso # (Auto) (0.0-0.2) X10*3/uL Abs Immat Gran (auto) (0.00-0.03) X10*3/uL Absolute Neuts (auto) (2.0-8.3) x10*3/uL Absolute Nucleated RBC (0.0-0.012) X10*3/uL Nucleated RBC % (auto) (0.0-0.2) /100WBC PT 20.7 H (10.0-13.1) SEC INR 1.8 H (0.9-1.1) APTT 38.7 H (26.0-36.4) SEC Sodium (135-145) mmol/L Potassium (3.3-5.1) mmol/L Chloride (96-108) mmol/L Carbon Dioxide (22-29) mmol/L Anion Gap (12-20) BUN (9-16) mg/dL Creatinine (0.5-1.4) mg/dL Estim Creat Clear Calc Estimated GFR POC Glucose (60-115) mg/dL Random Glucose (60-115) mg/dL Calcium (8.4-10.2) mg/dL Total Bilirubin (0.0-1.0) mg/dL AST (5-31) U/L ALT (0-31) U/L Alkaline Phosphatase (39-117) U/L Troponin I High Sens (<3.5-17.0) ng/L B-Natriuretic Peptide 3945 H (<100) pg/mL Total Protein (6.5-8.0) g/dL Albumin (3.5-5.0) g/dL Influenza Type A (PCR) NEGATIVE (Negative) Influenza Type B (PCR) NEGATIVE (Negative) RSV RNA Qual (PCR) NEGATIVE (Negative) SARS-CoV-2 RNA (RT-PCR) NEGATIVE (Negative) 10/22/22 Range/Units 10:00 WBC (4.8-10.8) X10*3/uL RBC (4.20-5.50) X10*6/uL Hgb (12.0-16.0) g/dl Hct (37.0-47.0) % MCV (80.0-98.0) fL MCH (27.0-33.0) pg MCHC (31.0-35.0) g/dl RDW (11.0-16.0) % Plt Count (160-400) X10*3/uL MPV (9.4-12.3) fL Immature Gran % (Auto) (0.0-0.4) % Neut % (Auto) (45-73) % Lymph % (Auto) (20-40) % [place] % (Auto) (2-11) % Eos % (Auto) (0-4) % Baso % (Auto) (0-2) % Lymph # (Auto) (1.2-4.9) X10*3/uL [place] # (Auto) (0.1-1.2) X10*3/uL Eos # (Auto) (0.0-0.4) X10*3/uL Baso # (Auto) (0.0-0.2) X10*3/uL Abs Immat Gran (auto) (0.00-0.03) X10*3/uL Absolute Neuts (auto) (2.0-8.3) x10*3/uL Absolute Nucleated RBC (0.0-0.012) X10*3/uL Nucleated RBC % (auto) (0.0-0.2) /100WBC PT (10.0-13.1) SEC INR (0.9-1.1) APTT (26.0-36.4) SEC Sodium (135-145) mmol/L Potassium (3.3-5.1) mmol/L Chloride (96-108) mmol/L Carbon Dioxide (22-29) mmol/L Anion Gap (12-20) BUN (9-16) mg/dL Creatinine (0.5-1.4) mg/dL Estim Creat Clear Calc Estimated GFR POC Glucose (60-115) mg/dL Random Glucose (60-115) mg/dL Calcium (8.4-10.2) mg/dL Total Bilirubin (0.0-1.0) mg/dL AST (5-31) U/L ALT (0-31) U/L Alkaline Phosphatase (39-117) U/L Troponin I High Sens 16.8 D (<3.5-17.0) ng/L B-Natriuretic Peptide (<100) pg/mL Total Protein (6.5-8.0) g/dL Albumin (3.5-5.0) g/dL Influenza Type A (PCR) (Negative) Influenza Type B (PCR) (Negative) RSV RNA Qual (PCR) (Negative) SARS-CoV-2 RNA (RT-PCR) (Negative) Independent Interpretation I performed an independent interpretation of an: EKG (Sinus bradycardia. Ventricular rate 47. Peer interval 210. QRS 84. QTC 449. Negative straight) Radiology Impression Discussion of test interpretation with radiology: I have reviewed the radiologist's reading. Discharge Plan Discharge Clinical Impression: Acute hyperkalemia, ESRD needing dialysis, Bradycardia Patient Disposition: Admitted As Inpatient
[2022-10-22 09:27] LABS: Glucose, Whole Blood 176 mg/dL (60-115)
[2022-10-22 10:07] LABS: MANUAL DIFF FLAG NO
[2022-10-22 10:09] LABS: Basophils Absolute Auto 0.1 X10*3/uL (0.0-0.2); Basophils Percent Auto 1.1 % (0-2); Eosinophils Absolute Auto 0.3 X10*3/uL (0.0-0.4); Eosinophils Percent Auto 4.4 % (0-4); Hematocrit 37.9 % (37.0-47.0); Hemoglobin 11.5 g/dl (12.0-16.0); Imm Gran Abs Auto 0.03 X10*3/uL (0.00-0.03); Imm Gran Pct Auto 0.5 % (0.0-0.4); Lymphocytes Percent Auto 15.1 % (20-40); Mean Corpuscular HGB Conc 30.3 g/dl (31.0-35.0); Mean Corpuscular Hemoglobin 28.5 pg (27.0-33.0); Mean Platelet Volume 12.1 fL (9.4-12.3); Monocytes Absolute Auto 0.5 X10*3/uL (0.1-1.2); Monocytes Percent Auto 8.2 % (2-11); Neutrophils Absolute Auto 4.6 x10*3/uL (2.0-8.3); Neutrophils Percent Auto 70.7 % (45-73); Platelet Count 110 X10*3/uL (160-400); Red Blood Count 4.03 X10*6/uL (4.20-5.50); Red Cell Distribution Width 17.4 % (11.0-16.0); White Blood Count 6.6 X10*3/uL (4.8-10.8)
[2022-10-22 10:15] LABS: INTERNATIONAL NORM RATIO 1.8 (0.9-1.1); Prothrombin Time 20.7 SEC (10.0-13.1)
[2022-10-22 10:18] LABS: Partial Thromboplastin Time 38.7 SEC (26.0-36.4)
[2022-10-22 10:31] LABS: B Type Natriuretic Peptide 3945 pg/mL (<100)
[2022-10-22 10:32] LABS: Alanine Aminotransferase 13 U/L (0-31); Albumin Level 3.8 g/dL (3.5-5.0); Alkaline Phosphatase 190 U/L (39-117); Anion Gap 18 (12-20); Aspartate Amino Transferase 20 U/L (5-31); Bilirubin Total 1.1 mg/dL (0.0-1.0); Blood Urea Nitrogen 49 mg/dL (9-16); Calcium 8.1 mg/dL (8.4-10.2); Carbon Dioxide 23 mmol/L (22-29); Chloride 96 mmol/L (96-108); Estimated Glomerular Filt Rate 8; Glucose Random 167 mg/dL (60-115); Potassium 5.9 mmol/L (3.3-5.1); Sodium 131 mmol/L (135-145); Total Protein 6.7 g/dL (6.5-8.0)
[2022-10-22 10:34] LABS: Troponin-I High Sensitivity 16.8 ng/L (<3.5-17.0)
[2022-10-22 10:46] LABS: Influenza A PCR NEGATIVE (Negative); Influenza B PCR NEGATIVE (Negative); Resp Syncy Virus RNA Qual PCR NEGATIVE (Negative); SARS COV2 PCR INHOUSE NEGATIVE (Negative)
[2022-10-22 12:20] VITALS: BP 170/67; PULSE 52; RESP 14; O2SAT 100
[2022-10-22] MEDS: Sodium Zirconium Cyclosilicate 10 GM POWD.PACK PO (12:39)
[2022-10-22] MEDS: Dextrose 10 % 250 ML 750 ML IV (12:40)
[2022-10-22] MEDS: Insulin Regular, Human 100 UNIT/ML 3 ML VIAL 10 UNIT IVPUSH (12:40)
[2022-10-22] MEDS: Calcium Gluconate/NaCl,Iso-Osm 2 GM/100 ML PLAST..BAG IV (12:40)
--- NOTE | 2022-10-22 12:45 | PC.NURSE ---
K shift medications running per AUG.
[2022-10-22 13:08] VITALS: BP 145/75; PULSE 54; RESP 15; O2SAT 97
--- NOTE | 2022-10-22 14:05 | P.HPHOSP_ITS ---
History of Present Illness Date of Service: 10/22/22 Chief Complaint: Dizziness 77-year-old female with past medical history of chronic hyponatremia, hyperkalemia, end-stage renal disease on dialysis Friday,, anemia, bradycardia, diabetes, hyperlipidemia, hyperparathyroidism, AFib on Elequis,? HTN. Per ED she is presenting with generalized itchyness, chronic pain in the neck that is not worse, and reported disiease. Using the interpreter deaf, patient was not able to tell me how she's here and had no other complaint. ED reported that pt wa bradcardic into 40's , lowest heart rate is 44 Review of Systems Review of Systems: Gen: no fever Resp: no sob, no cough CV: no chest, no GUERRA, no leg edema GI: No n/v, no abd pain Neuro: confusion, neck pain is unchanged Yes all other systems are reviewed and are negative [facility] Medical History Acute pericardial effusion Anemia Anemia 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 Benign essential hypertension CAD (coronary artery disease) Chronic anticoagulation Chronic kidney disease, stage 4 (severe) Dyspnea ESRD (end stage renal disease) ESRD (end stage renal disease) ESRD (end stage renal disease) ESRD on dialysis Fluid overload Gastric ulcer GERD (gastroesophageal reflux disease) Hemodialysis patient HLD (hyperlipidemia) Hypertension Hypothyroidism Iron deficiency Nephrotic range proteinuria Obesity (BMI 30-39.9) Osteoarthritis Osteopenia PAF (paroxysmal atrial fibrillation) PAF (paroxysmal atrial fibrillation) Paroxysmal atrial fibrillation Pernicious anemia Postoperative hematoma involving digestive system following digestive system procedure Pure hypercholesterolemia Toe amputee Type 2 diabetes mellitus Surgical History H/O colonoscopy History of laparoscopic cholecystectomy (08/21/22) Hx of appendectomy S/P arteriovenous (AV) fistula creation Social History Household Members: Family [facility] Housing: House Do you presently have visiting nurse or other home services: Yes Alcohol intake: unknown Patient Tobacco Use Status: Never used Tobacco e-Cigarette/Vaping Use: Never Used Second Hand Smoke Exposure: No Advance Directives: Yes Advance Directives on File: Yes Advance Directives Date on File: 08/22/22 service: No Cognitive needs: Yes Hearing needs: No Vision needs: No Meds Allergies Allergy/AdvReac Type Severity Reaction Status Date / Time No Known Allergies Allergy Verified 10/22/22 08:36 Home Medications Medication Instructions Recorded Confirmed Last Taken Type acetaminophen 325 mg tablet 325 mg PO Q6H PRN Mild Pain (Scale 07/19/22 10/22/22 Unknown History Score 1-4) sevelamer carbonate 800 mg tablet 800 mg PO TIDWM 07/19/22 10/22/22 08/30/22 History aspirin 81 mg tablet,delayed 81 mg PO DAILY 08/18/22 10/22/22 08/30/22 History release docusate sodium 100 mg capsule 1 cap PO BID 08/18/22 10/21/22 08/30/22 History apixaban 5 mg tablet (Eliquis) 5 mg PO BID 10/22/22 10/22/22 Unknown History Physical Exam Vital Signs and Narrative: Vital Signs: Last Vital Signs Temp 97.9 F 10/22/22 08:00 Pulse 54 10/22/22 13:08 Resp 15 10/22/22 13:08 BP 145/75 H 10/22/22 13:08 Pulse Ox 97 10/22/22 13:08 O2 Del Method Room Air 10/22/22 13:08 BMI result Body Mass Index 34.6 Const: Other: General: AO X 2, no acute distress Resp: CTA bilateral CVS: S1,S2,RRR GI: +BS, NT, no distention Skin: No rash Neuro: motor grossly intact Psych: appropriate affect Results Labs 10/22/22 10:00 10/22/22 10:00 Labs: Laboratory Results - last 24 hr 10/22/22 10/22/22 10/22/22 09:06 10:00 10:00 MCV 94.0 MCH 28.5 MCHC 30.3 L RDW 17.4 H Plt Count 110 L MPV 12.1 Immature Gran % (Auto) 0.5 H Neut % (Auto) 70.7 Lymph % (Auto) 15.1 L [place] % (Auto) 8.2 Eos % (Auto) 4.4 H Baso % (Auto) 1.1 Lymph # (Auto) 1.0 L [place] # (Auto) 0.5 Eos # (Auto) 0.3 Baso # (Auto) 0.1 Abs Immat Gran (auto) 0.03 Absolute Neuts (auto) 4.6 Absolute Nucleated RBC 0.000 Nucleated RBC % (auto) 0.0 PT INR APTT Anion Gap 18 Estim Creat Clear Calc 9.0 Estimated GFR 8 POC Glucose 176 H Random Glucose 167 H Calcium 8.1 L Total Bilirubin 1.1 H AST 20 ALT 13 Alkaline Phosphatase 190 H Troponin I High Sens B-Natriuretic Peptide Total Protein 6.7 Albumin 3.8 Influenza Type A (PCR) Influenza Type B (PCR) RSV RNA Qual (PCR) SARS-CoV-2 RNA (RT-PCR) 10/22/22 10/22/22 10/22/22 10:00 10:00 10:00 MCV MCH MCHC RDW Plt Count MPV Immature Gran % (Auto) Neut % (Auto) Lymph % (Auto) [place] % (Auto) Eos % (Auto) Baso % (Auto) Lymph # (Auto) [place] # (Auto) Eos # (Auto) Baso # (Auto) Abs Immat Gran (auto) Absolute Neuts (auto) Absolute Nucleated RBC Nucleated RBC % (auto) PT 20.7 H INR 1.8 H APTT 38.7 H Anion Gap Estim Creat Clear Calc Estimated GFR POC Glucose Random Glucose Calcium Total Bilirubin AST ALT Alkaline Phosphatase Troponin I High Sens B-Natriuretic Peptide 3945 H Total Protein Albumin Influenza Type A (PCR) NEGATIVE Influenza Type B (PCR) NEGATIVE RSV RNA Qual (PCR) NEGATIVE SARS-CoV-2 RNA (RT-PCR) NEGATIVE 10/22/22 10:00 MCV MCH MCHC RDW Plt Count MPV Immature Gran % (Auto) Neut % (Auto) Lymph % (Auto) [place] % (Auto) Eos % (Auto) Baso % (Auto) Lymph # (Auto) [place] # (Auto) Eos # (Auto) Baso # (Auto) Abs Immat Gran (auto) Absolute Neuts (auto) Absolute Nucleated RBC Nucleated RBC % (auto) PT INR APTT Anion Gap Estim Creat Clear Calc Estimated GFR POC Glucose Random Glucose Calcium Total Bilirubin AST ALT Alkaline Phosphatase Troponin I High Sens 16.8 D B-Natriuretic Peptide Total Protein Albumin Influenza Type A (PCR) Influenza Type B (PCR) RSV RNA Qual (PCR) SARS-CoV-2 RNA (RT-PCR) Imaging Radiologist's Impressions: Impressions Chest X-Ray 10/22/22 09:36 IMPRESSION: No acute cardiopulmonary process. Cervical Spine CT 10/22/22 09:45 IMPRESSION: - No definite acute intracranial findings. Clearing blood products within the anterior right hippocampus, demonstrated to be subacute on the brain MRI from 10/11/2022. Stable pattern calcification within the dorsal right basal ganglia and the left globus pallidus when compared to studies dated back to 08/14/2022. Chronic encephalomalacia and gliosis within the right basal ganglia with associated volume loss unchanged. No worsening mass effect intracranially. Given these evolving changes, if there is any clinical concern for superimposed acute blood products, a MRI would be more sensitive in assessment. - No acute osseous findings within the cervical spine to Multilevel cervical spondylosis. Head CT 10/22/22 09:45 IMPRESSION: - No definite acute intracranial findings. Clearing blood products within the anterior right hippocampus, demonstrated to be subacute on the brain MRI from 10/11/2022. Stable pattern calcification within the dorsal right basal ganglia and the left globus pallidus when compared to studies dated back to 08/14/2022. Chronic encephalomalacia and gliosis within the right basal ganglia with associated volume loss unchanged. No worsening mass effect intracranially. Given these evolving changes, if there is any clinical concern for superimposed acute blood products, a MRI would be more sensitive in assessment. - No acute osseous findings within the cervical spine to Multilevel cervical spondylosis. Assessment and Plan (1) Pruritus: Status: Acute (2) Dizziness: Status: Acute (3) ESRD needing dialysis: Status: Acute Plan 76-year-old female with past medical history of chronic hyponatremia, hype rkalemia, end-stage renal disease on dialysis Friday,, anemia, bradycardia, diabetes, hyperlipidemia, hyperparathyroidism, AFib on Elequis,? HTN. She was being dialyes at outpatient dialysis center when about 3.5 hours into dialysis, her heart rate jumped up into 140s and found to have AFIB with RVR 1/ Dizziness, she's very non-specific about this, I don't think low HR has anyt elvin to do it, I believe she's at her baseline - [facility] 2/ ESRD--dialysis as usual? (TTS), Nephrology consult 3/ Hypothyroidism--Levothryoxone 4/ Diabeeetes--Insulin 5/GERD -PPI 5/Permanent AFIB, continue Multaq, eliquis. Hold Metoprolol and adjust if peristently nino 6/ HLD--Lipitor 7./Itchyness--this is chronic d/t ESRD, BEnadryl PRN 8/ Neck pain, chronic, no acute finding DVT propy: saran Admission for at least 2 midnights for management of AFIB with RVR on iv cardizem drip med rec not yet done Full code Time Spent With Patient Time: Total time managing care of this patient today ____ minutes. Quality Stroke Does the patient have a stroke diagnosis?: No VTE Prior VTE?: No VTE Risk Level:: Medical - moderate - high VTE Device Contraindication: Treatment Not Indicated VTE Drug Contraindication: N/A - Med Ordered
--- NOTE | 2022-10-22 14:25 | PHA.MEDREC ---
Pharmacy Consult ? Medication Reconciliation Patient only remember a few meds but did confirmed all meds where from [facility] . She transferred her meds from [facility] . Pharmacy has completed the medication reconciliation.
--- NOTE | 2022-10-22 15:00 | PC.NURSE ---
pt taken to dialysis.
--- NOTE | 2022-10-22 15:07 | PC.NURSE ---
Dialysis called to see if pt can come for scheduled dialysis. I checked with Jose ROBERTS and he said that she could go up. Texted transport for her to go.
--- NOTE | 2022-10-22 15:39 | PC.NURSE ---
pt off floor for dialysis
--- NOTE | 2022-10-22 18:56 | PC.NURSE ---
pt still at dialysis
[2022-10-22 20:20] VITALS: BP 194/61; PULSE 67; RESP 18; O2SAT 93
[2022-10-22] MEDS: Melatonin 3 MG TABLET PO (23:37)
[2022-10-22] MEDS: 0.9 % Sodium Chloride Flush 3 ML SYRINGE IVFLUSH (23:44)
[2022-10-23 00:04] VITALS: BP 166/51; PULSE 65; RESP 22; TEMP 36.3; O2SAT 96
--- NOTE | 2022-10-23 00:05 | MHC.EDTECH ---
i took over this assignment at 2300 , vitals were taken linen was changed and a purewick was applied pt is repositioned
--- NOTE | 2022-10-23 00:33 | PC.NURSE ---
Report attempted this time.
[2022-10-23 00:45] VITALS: BP 130/69; PULSE 67; RESP 18; O2SAT 95
--- NOTE | 2022-10-23 01:00 | PC.NURSE ---
Report attempted at this time.
--- NOTE | 2022-10-23 01:11 | PC.NURSE ---
Report to Kendy HUYNH.
[2022-10-23 01:39] VITALS: BP 172/87; PULSE 81; RESP 20; TEMP 36.3; O2SAT 99
[2022-10-23 02:01] VITALS: BMI 33.1
[2022-10-23 04:00] VITALS: BP 149/65; PULSE 65; RESP 16; TEMP 36.1; O2SAT 98
[2022-10-23 06:34] LABS: Anion Gap 18 (12-20); Blood Urea Nitrogen 21 mg/dL (9-16); Calcium 8.3 mg/dL (8.4-10.2); Carbon Dioxide 19 mmol/L (22-29); Chloride 102 mmol/L (96-108); Creatinine Clr Calc Pharmacy 13.9; Estimated Glomerular Filt Rate 14; Glucose Random 135 mg/dL (60-115); Potassium 5.5 mmol/L (3.3-5.1); Sodium 133 mmol/L (135-145)
[2022-10-23 07:11] VITALS: BP 136/82; PULSE 68; RESP 20; TEMP 36.3; O2SAT 97
--- NOTE | 2022-10-23 08:18 | PM.DS ---
DS: Providers Provider Date of Service: 10/23/22 Date of admission: 10/22/22 14:27 Primary care physician: Lonnie Khan MD Consults: 10/22/22 13:57 Consult to Nephrology Routine Consulting Provider: Handy Tidwell Reason for consultation: ESRD Has provider been notified: No DS: Diagnosis Discharge Diagnosis (1) Pruritus: Status: Acute (2) Dizziness: Status: Acute (3) ESRD needing dialysis: Status: Acute DS: Summary Hospital Course Hospital Course: Chief Complaint: Dizziness 77-year-old female with past medical history of chronic hyponatremia, hyperkalemia, end-stage renal disease on dialysis Friday,, anemia, bradycardia, diabetes, hyperlipidemia, hyperparathyroidism, AFib on Elequis,? HTN. Per ED she is presenting? with generalized itchyness, chronic pain in the neck that is not worse, and reported disiease. Using the entrepreneurship program director, patient was not able to tell me how she's here and had no other complaint. ED reported that pt wa bradcardic into 40's , lowest heart rate is 44 Hospital course: patient was admitted because of reported dizziness MS in dialysis. While in the hospital complained of no dizziness, noted to have hyperkalemia potassium of 5.5, also was noted to have episode of bradycardia with heart rate of 145 but with no sinus pause. She has chronic bradycardia on Multaq and on metoprolol for atrial fibrillation. Metoprolol has been reduced to 12.5 presently her heart rate is in the 60s. She is to continue all other medication except for the metoprolol which has been reduced to 12.5 mg twice a day, and to resume usual dialysis schedule. Hyperkalemia has been treated with dialysis and Lokelma and will follow up with Time Spent with Patient Time attestation: Total time managing care of this patient today ____ minutes. Discharge coordination time: Greater than 30 minutes Quality: Safe Use of Opioids Does Pt have an Active Cancer Diagnosis on the Problem List?: No Quality: Stroke Does the patient have a stroke diagnosis?: No Physical Exam Vital Signs: Vital Signs: Last Vital Signs Temp 97.4 F 10/23/22 07:11 Pulse 68 10/23/22 07:11 Resp 20 10/23/22 07:11 BP 136/82 10/23/22 07:11 Pulse Ox 97 10/23/22 07:11 O2 Del Method Room Air 10/23/22 04:00 BMI result Body Mass Index 33.1 DS: Data Data Completed and Pending Completed studies during hospitalization [Text1]: Procedures Assistance with Respiratory Ventilation, Less than 24 Consecutive Hours, Continuous Positive Airway Pressure (11/06/21) Drainage of Left Pleural Cavity, Percutaneous Approach (05/21/21) Excision of Duodenum, Via Natural or Artificial Opening Endoscopic, Diagnostic (07/19/22) Excision of Right Kidney, Percutaneous Approach, Diagnostic (04/20/21) Excision of Sigmoid Colon, Via Natural or Artificial Opening Endoscopic, Diagnostic (07/19/22) Excision of Stomach, Pylorus, Via Natural or Artificial Opening Endoscopic, Diagnostic (07/19/22) Insertion of Infusion Device into Left Brachial Vein, Percutaneous Approach (05/02/21) Insertion of Infusion Device into Right Atrium, Percutaneous Approach (05/02/21) Insertion of Infusion Device into Superior Vena Cava, Percutaneous Approach (05/02/21) Insertion of Tunneled Vascular Access Device into Chest Subcutaneous Tissue and Fascia, Percutaneous Approach (05/02/21) Performance of Urinary Filtration, Intermittent, Less than 6 Hours Per Day (08/31/22) Removal of Infusion Device from Great Vessel, Percutaneous Approach (05/02/21) Resection of Gallbladder, Percutaneous Endoscopic Approach (08/18/22) Transfusion of Nonautologous Red Blood Cells into Peripheral Vein, Percutaneous Approach (05/02/21) Labs on day of discharge: Laboratory Results - last 24 hr 10/22/22 10/22/22 10/22/22 09:06 10:00 10:00 WBC 6.6 RBC 4.03 L Hgb 11.5 L Hct 37.9 D MCV 94.0 MCH 28.5 MCHC 30.3 L RDW 17.4 H Plt Count 110 L MPV 12.1 Immature Gran % (Auto) 0.5 H Neut % (Auto) 70.7 Lymph % (Auto) 15.1 L Patrick % (Auto) 8.2 Eos % (Auto) 4.4 H Baso % (Auto) 1.1 Lymph # (Auto) 1.0 L Patrick # (Auto) 0.5 Eos # (Auto) 0.3 Baso # (Auto) 0.1 Abs Immat Gran (auto) 0.03 Absolute Neuts (auto) 4.6 Absolute Nucleated RBC 0.000 Nucleated RBC % (auto) 0.0 PT INR APTT Sodium 131 L Potassium 5.9 H D Chloride 96 Carbon Dioxide 23 Anion Gap 18 BUN 49 H Creatinine 5.05 H* Estim Creat Clear Calc 9.0 Estimated GFR 8 POC Glucose 176 H Random Glucose 167 H Calcium 8.1 L Total Bilirubin 1.1 H AST 20 ALT 13 Alkaline Phosphatase 190 H Troponin I High Sens B-Natriuretic Peptide Total Protein 6.7 Albumin 3.8 Influenza Type A (PCR) Influenza Type B (PCR) RSV RNA Qual (PCR) SARS-CoV-2 RNA (RT-PCR) 10/22/22 10/22/22 10/22/22 10:00 10:00 10:00 WBC RBC Hgb Hct MCV MCH MCHC RDW Plt Count MPV Immature Gran % (Auto) Neut % (Auto) Lymph % (Auto) Patrick % (Auto) Eos % (Auto) Baso % (Auto) Lymph # (Auto) Patrick # (Auto) Eos # (Auto) Baso # (Auto) Abs Immat Gran (auto) Absolute Neuts (auto) Absolute Nucleated RBC Nucleated RBC % (auto) PT 20.7 H INR 1.8 H APTT 38.7 H Sodium Potassium Chloride Carbon Dioxide Anion Gap BUN Creatinine Estim Creat Clear Calc Estimated GFR POC Glucose Random Glucose Calcium Total Bilirubin AST ALT Alkaline Phosphatase Troponin I High Sens B-Natriuretic Peptide 3945 H Total Protein Albumin Influenza Type A (PCR) NEGATIVE Influenza Type B (PCR) NEGATIVE RSV RNA Qual (PCR) NEGATIVE SARS-CoV-2 RNA (RT-PCR) NEGATIVE 10/22/22 10/23/22 10:00 06:07 WBC RBC Hgb Hct MCV MCH MCHC RDW Plt Count MPV Immature Gran % (Auto) Neut % (Auto) Lymph % (Auto) Patrick % (Auto) Eos % (Auto) Baso % (Auto) Lymph # (Auto) Patrick # (Auto) Eos # (Auto) Baso # (Auto) Abs Immat Gran (auto) Absolute Neuts (auto) Absolute Nucleated RBC Nucleated RBC % (auto) PT INR APTT Sodium 133 L Potassium 5.5 H Chloride 102 Carbon Dioxide 19 L Anion Gap 18 BUN 21 H Creatinine 3.18 H Estim Creat Clear Calc 13.9 Estimated GFR 14 POC Glucose Random Glucose 135 H Calcium 8.3 L Total Bilirubin AST ALT Alkaline Phosphatase Troponin I High Sens 16.8 D B-Natriuretic Peptide Total Protein Albumin Influenza Type A (PCR) Influenza Type B (PCR) RSV RNA Qual (PCR) SARS-CoV-2 RNA (RT-PCR) Discharge Plan Discharge Anticipated Discharge Date/Time: 10/23/22 08:14 Patient Disposition: Home, Self-Care Discharge Diagnosis: Dizziness Referrals: Lonnie Khan MD [Primary Care Provider] - 1 Week Discharge Medications: Continued (DME) Extra depth orthopedic shoes (1 pair) with customized heat molded multidensity innersoles (3 pair) See Rx Instructions .Route .MEDSUPPLY Qty: 1 0RF Rx Instructions: As directed (DME) syringe with needle 3 mL 27 gauge x 1 1/4 syringe See Rx Instructions .Route Qty: 6 1RF Rx Instructions: As directed once a month (for Vitamin B12 injections) loratadine 10 mg tablet 10 mg PO DAILY 90 Days Qty: 90 3RF Rx Instructions: Take 1 tablet by mouth daily hydralazine 25 mg tablet 25 mg PO TID 90 Days Qty: 270 3RF Protocol: Hold for SBP< HOLD for SBP < : 90 (DME) blood-glucose meter [FreeStyle Lite Meter] Kit See Rx Instructions .Route Qty: 1 0RF Rx Instructions: As directed Advair HFA 115-21 mcg/actuation HFA aerosol inhaler 2 puff inhalation Q12H 30 Days Qty: 12 11RF (DME) lancets [FreeStyle Lancets] 28 gauge misc See Rx Instructions .ROUTE .MEDSUPPLY Qty: 100 12RF Rx Instructions: check BS 3x/day (DME) DIGITAL SCALE See Rx Instructions .Route .MEDSUPPLY Qty: 1 0RF Rx Instructions: As directed pantoprazole 40 mg tablet,delayed release (DR/EC) 40 mg PO DAILY@0630 30 Days Qty: 30 5RF (DME) FreeStyle Lite Strips Strip See Rx Instructions .ROUTE .COMPLEX Qty: 100 12RF Dose Instruction: USE DIRECTED ONCE A DAY Rx Instructions: USE DIRECTED ONCE A DAY montelukast 10 mg tablet 10 mg PO BEDTIME Qty: 90 0RF gabapentin 100 mg capsule 100 mg PO BID 30 Days Qty: 60 1RF (DME) blood pressure monitor Kit See Rx Instructions .Route Qty: 1 0RF Rx Instructions: As directed (DME) bariatric scale See Rx Instructions .Route .MEDSUPPLY Qty: 1 0RF Rx Instructions: As directed atorvastatin 40 mg tablet 40 mg PO BEDTIME Qty: 90 0RF ferrous sulfate 325 mg (65 mg iron) tablet 325 mg PO DAILY Qty: 90 1RF levothyroxine 25 mcg tablet 25 mcg PO DAILY@0600 Qty: 90 0RF Multaq 400 mg tablet 400 mg PO BID Qty: 60 3RF Rx Instructions: must administer with a meal/food acetaminophen 325 mg Tablet 325 mg PO Q6H PRN (Reason: Mild Pain (Scale Score 1-4)) sevelamer carbonate 800 mg tablet 800 mg PO TIDWM Rx Instructions: must administer with a meal/food aspirin 81 mg Tablet,Delayed Release (Dr/Ec) 81 mg PO DAILY docusate sodium 100 mg capsule 1 cap PO BID Hold Instructions: Resume on 09/27/22. pending MD instructions Eliquis 5 mg Tablet 5 mg PO BID (DME) TRANSPORT WHEELCHAIR See Rx Instructions .Route .MEDSUPPLY Qty: 1 0RF Rx Instructions: As directed (DME) pen needle, diabetic [BD Sandra 2nd Gen Pen Needle] 32 gauge x 5/32 needle See Rx Instructions .Route Qty: 50 0RF Rx Instructions: As directed diphenhydramine HCl 25 mg tablet 25 mg PO TID PRN (Reason: itching) 30 Days Qty: 90 3RF albuterol sulfate 90 mcg/actuation HFA aerosol inhaler 2 inh inhalation Q6H PRN (Reason: shortness of breath or wheezing) 30 Days Qty: 18 12RF Changed metoprolol tartrate 25 mg tablet 12.5 mg PO BID Qty: 60 5RF Protocol: Hold for SBP/HR < HOLD for SBP < : 90 HOLD for HR < : 60 Diet: Diabetic diet Activity on Discharge: As tolerated Stand Alone Forms: Patient Portal Discharge page Care Plan Goals: full recovery from dizziness Health Concerns: end-stage renal disease dizziness bradycardic chronic itchiness Plan of Treatment: resume all medication except for metoprolol has been reduced to 12.5 mg twice a day rather than 25 mg twice a day. Resume your usual dialysis schedule Assessment: as above
--- NOTE | 2022-10-23 09:23 | MHC.CLN ---
NUTRITION PATIENT WITH DM AND ESRD, RECEIVES HEMODIALYSIS. DIET CHANGED PER DIALYSIS PARAMETERS WITH DM: DIET=DIABETIC 1800 KCALS, 2 GRAM SODIUM, LOW POTASSIUM, LOW PHOSPHOROUS.
--- NOTE | 2022-10-23 10:23 | PM.CNNEP ---
History of Present Illness Reason for Consult Consult date: 10/23/22 Reason for consult: esrd Chief Complaint Chief complaint: Dizziness History of Present Illness Narrative: 77-year-old female with past medical history of chronic hyponatremia, hyperkalemia, end-stage renal disease on dialysis Friday,, anemia, bradycardia, diabetes, hyperlipidemia, hyperparathyroidism, AFib on Elequis,? HTN. Per ED she is presenting? with generalized itchyness, chronic pain in the neck that is not worse, and reported disiease. Using the braille operator, patient was not able to tell me how she's here and had no other complaint. ED reported that pt wa bradcardic into 40's , lowest heart rate is 44 Review of Systems Review of Systems Yes all other systems are reviewed and are negative [facility] Past Medical History Medical History Acute pericardial effusion Anemia Anemia 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 Benign essential hypertension CAD (coronary artery disease) Chronic anticoagulation Chronic kidney disease, stage 4 (severe) Dyspnea ESRD (end stage renal disease) ESRD (end stage renal disease) ESRD (end stage renal disease) ESRD on dialysis Fluid overload Gastric ulcer GERD (gastroesophageal reflux disease) Hemodialysis patient HLD (hyperlipidemia) Hypertension Hypothyroidism Iron deficiency Nephrotic range proteinuria Obesity (BMI 30-39.9) Osteoarthritis Osteopenia PAF (paroxysmal atrial fibrillation) PAF (paroxysmal atrial fibrillation) Paroxysmal atrial fibrillation Pernicious anemia Postoperative hematoma involving digestive system following digestive system procedure Pure hypercholesterolemia Toe amputee Type 2 diabetes mellitus Surgical History Surgical History H/O colonoscopy History of laparoscopic cholecystectomy (08/21/22) Hx of appendectomy S/P arteriovenous (AV) fistula creation Social History Social History Household Members: Family Household Members Other:: [facility] Housing: House Do you presently have visiting nurse or other home services: Yes Alcohol intake: unknown Patient Tobacco Use Status: Never used Tobacco e-Cigarette/Vaping Use: Never Used Second Hand Smoke Exposure: No Advance Directives Date on File: 08/22/22 service: No Current occupational status: disabled Cognitive needs: Yes Hearing needs: No Vision needs: No Meds Allergies Allergy/AdvReac Type Severity Reaction Status Date / Time No Known Allergies Allergy Verified 10/22/22 08:36 Active Medications: Current Medications Acetaminophen (Acetaminophen 325 Mg Tablet) 650 mg PO Q6H PRN PRN Reason: Pain, Mild (Pain Scale 1-3) Acetaminophen (Acetaminophen 325 Mg Tablet) 325 mg PO Q6H PRN PRN Reason: Mild Pain (Scale Score 1-4) Albuterol Sulfate (Albuterol Sulfate 90 Mcg 8 Gm Inhaler) 2 puff INHALE Q6H PRN PRN Reason: shortness of breath or wheezing Apixaban (Apixaban 5 Mg Tablet) 5 mg PO BID [facility] Aspirin (Aspirin Enteric Coated 81 Mg Tablet.) 81 mg PO DAILY [facility] Atorvastatin Calcium (Atorvastatin Calcium 40 Mg Tablet) 40 mg PO BEDTIME [facility] Diphenhydramine HCl (Diphenhydramine Hcl 25 Mg Capsule) 25 mg PO TID PRN PRN Reason: itching Dronedarone (Dronedarone Hcl 400 Mg Tablet) 400 mg PO BID [facility] Ferrous Sulfate (Ferrous Sulfate 324 Mg Tablet.) 324 mg PO DAILY [facility] Fluticasone/Vilanterol (Fluticasone/Vilanterol 100/25 Blst.W.Dev) 1 puff INHALE RDAILY [facility] Gabapentin (Gabapentin 100 Mg Capsule) 100 mg PO BID [facility] Hydralazine HCl (Hydralazine Hcl 25 Mg Tablet) 25 mg PO TID [facility]; Protocol Levothyroxine Sodium (Levothyroxine Sodium 25 Mcg Tablet) 25 mcg PO DAILY@0600 [facility] Loratadine (Loratadine 10 Mg Tablet) 10 mg PO DAILY [facility] Magnesium Hydroxide (Milk Of Magnesia 30 Ml Oral.Susp) 30 ml PO DAILY PRN PRN Reason: Constipation Melatonin (Melatonin 3 Mg Tablet) 3 mg PO BEDTIME PRN PRN Reason: Insomnia Last Admin: 10/22/22 23:37 Dose: 3 mg Metoprolol Tartrate (Metoprolol Tartrate 12.5 Mg Halftab) 12.5 mg PO BID [facility]; Protocol Montelukast Sodium (Montelukast Sodium 10 Mg Tablet) 10 mg PO BEDTIME [facility] Omeprazole (Omeprazole 20 Mg Capsule.) 20 mg PO DAILY@0630 [facility] Sevelamer Carbonate (Sevelamer Carbonate Tablet 800 Mg Tablet) 800 mg PO TIDWM [facility] Sodium Chloride (0.9 % Sodium Chloride Flush 3 Ml Syringe) 3 ml IVFLUSH QSHIFT [facility] Last Admin: 10/22/22 23:44 Dose: 3 ml Home Medications Medication Instructions Recorded Confirmed Last Taken Type acetaminophen 325 mg tablet 325 mg PO Q6H PRN Mild Pain (Scale 07/19/22 10/22/22 Unknown History Score 1-4) sevelamer carbonate 800 mg tablet 800 mg PO TIDWM 07/19/22 10/22/22 08/30/22 History aspirin 81 mg tablet,delayed 81 mg PO DAILY 08/18/22 10/22/22 08/30/22 History release docusate sodium 100 mg capsule 1 cap PO BID 08/18/22 10/21/22 08/30/22 History apixaban 5 mg tablet (Eliquis) 5 mg PO BID 10/22/22 10/22/22 Unknown History Physical Exam Vital Signs: Last Vital Signs Temp 97.4 F 10/23/22 07:11 Pulse 68 10/23/22 07:11 Resp 20 10/23/22 07:11 BP 136/82 10/23/22 07:11 Pulse Ox 97 10/23/22 07:11 O2 Del Method Room Air 10/23/22 04:00 BMI result Body Mass Index 33.1 General: AO X 2, no acute distress Resp:? CTA bilateral CVS: S1,S2,RRR GI: +BS, NT, no distention Skin: No rash Neuro:? motor grossly intact Psych: appropriate affect Results Lab Results 10/22/22 10:00 10/23/22 06:07 Lab results: Chemistry 10/22/22 10/23/22 10:00 06:07 Sodium 131 L 133 L Potassium 5.9 H D 5.5 H Carbon Dioxide 23 19 L BUN 49 H 21 H Creatinine 5.05 H* 3.18 H Calcium 8.1 L 8.3 L Hematology 10/22/22 10:00 WBC 6.6 Hgb 11.5 L Plt Count 110 L Assessment and Plan (1) Acute hyperkalemia: Status: Acute (2) Bradycardia: Status: Acute (3) ESRD (end stage renal disease): Status: Acute Plan elderly woman with ESRD and hyperkalemia with bradycardia. She usually undergoes dialysis Friday. She underwent dialysis yesterday and hyperkalemia was corrected. Again this morning potassium is 5.5. I will administer a dose of Lokelma. We will arrange for outpatient dialysis as per schedule and keep her on low-potassium diet. I have discussed with the team and we will follow as needed. Thank you Time Spent With Patient Time: Total time managing care of this patient today ____ minutes. Procedures Date of Service Date of Service: 10/23/22
[2022-10-23] MEDS: Metoprolol Tartrate 12.5 MG HALFTAB PO (10:29)
[2022-10-23] MEDS: hydrALAZINE HCl 25 MG TABLET PO (10:29)
[2022-10-23] MEDS: Gabapentin 100 MG CAPSULE PO (10:30)
[2022-10-23] MEDS: Ferrous Sulfate 324 MG TABLET.DR PO (10:30)
[2022-10-23] MEDS: Aspirin Enteric Coated 81 MG TABLET.DR PO (10:30)
[2022-10-23] MEDS: Loratadine 10 MG TABLET PO (10:30)
[2022-10-23] MEDS: Apixaban 5 MG TABLET PO (10:30)
[2022-10-23] MEDS: Sodium Zirconium Cyclosilicate 10 GM POWD.PACK PO (10:30)
[2022-10-23] MEDS: Dronedarone HCl 400 MG TABLET PO (10:31)
[2022-10-23] MEDS: 0.9 % Sodium Chloride Flush 3 ML SYRINGE IVFLUSH (10:31)
[2022-10-23 11:03] VITALS: BP 134/82; PULSE 60; RESP 20; TEMP 36.4; O2SAT 99
--- NOTE | 2022-10-23 12:42 | MHC.CM.PN ---
VERONICA 10/23/22. D/C plan to return home with previous [facility] services. HCP on file and verified as son/ACCOUNTANT/Jason. Jason is aware of plan for pt to return home today. Transport via [facility] van, booked for 2pm today. PCP: Lonnie Khan.
[2022-10-23] MEDS: Sevelamer Carbonate Tablet 800 MG TABLET PO (12:47)
--- NOTE | 2022-10-23 15:47 | MHC.CM.PN ---
10 minutes after patient was discharged and left the building, this CM received a telephone call from Nel from [facility]. Nel stated that their skin care instructor was requesting a direct rehab admission (preferably to [facility]) for this patient. This CM relayed to Nel that rehab was not recommended and the patient was ambulating independently in the hallway prior to discharge and had already left the building. Additionally, this CM spoke to patients son Jason smith 2 earlier in the day and was he aware of the D/C plan and eager for his mother to return home.
== END 2022-10-23 14:15 | disposition home or self-care (01) ==
LOC: HO.ED 09:12 → HO.EDOVER 14:35 → HO.IMC 10-23 00:18
PROVIDERS: Physician Assistant; Admitting Provider Internal Medicine; Emergency Provider Emergency Medicine; PCP Internal Medicine; Visit Provider Internal Medicine
DX: E87.5 Hyperkalemia (principal); R00.1 Bradycardia, unspecified; E11.22 Type 2 diabetes mellitus with diabetic chronic kidney disease; I12.0 Hypertensive chronic kidney disease with stage 5 chronic kidney disease or end stage renal disease; N18.6 End stage renal disease; Z99.2 Dependence on renal dialysis; R42 Dizziness and giddiness; E87.1 Hypo-osmolality and hyponatremia; I48.91 Unspecified atrial fibrillation; J44.9 Chronic obstructive pulmonary disease, unspecified; Z20.822 Contact with and (suspected) exposure to COVID-19; Z79.01 Long term (current) use of anticoagulants
CPT/HCPCS: 0241U; 36415; 70450; 71045; 72125; 80048; 80053; 82947; 83880; 84484; 85025; 85610; 85730; 90999; 93005; 96365; 96366; 96368; 96375; 99222; 99285; J0613

== ENCOUNTER 2024-06-30 19:10 | Emergency (ER) | payer OTHER, SELFPAY ==
[2024-06-30] VITALS (7 sets, daily range): BP systolic 148–199; BP diastolic 58–98; PULSE 58–67; RESP 18–20; TEMP 36.4–36.6; O2SAT 92–100; BMI 33.1
--- NOTE | ~2024-06-30 | XR_ITS ---
CLINICAL HISTORY: pain, trauma 2 view right knee Comparison: CR/SR - XR KNEE RT 3V - 03/17/22 21:23 EDT Findings: No acute fracture. No dislocation. Periosteal thickening along the proximal aspect of the fibula. No significant arthritic change or erosions. No joint effusion. Atherosclerotic vascular disease. IMPRESSION: 1. No acute fracture or dislocation. 2. Periosteal thickening proximal aspect of the fibula. This document has been electronically signed by: Malika Islas MD on 06/30/2024 21:15:59
--- NOTE | ~2024-06-30 | CT_ITS ---
CLINICAL HISTORY: R lateral nack pain, whiplash inj CT cervical spine without contrast Comparison: CT/SR - CT CERVICAL SPINE WO IV CON - 10/22/22 09:26 EDT Findings: Cervical alignment is maintained with no subluxation. Vertebral body height overall maintained. No acute fracture in the cervical spine. Craniocervical junction is maintained. Multilevel endplate osteophyte formation most significant at C5-6 and C6-7. Degenerative disc disease at C5-6. Degenerative changes right C3-4 facet joint. Prevertebral soft tissues within normal limits. Thyroid within normal limits. Right internal jugular central venous catheter partially imaged. Interstitial thickening in right lung apex in right-sided pleural effusion. IMPRESSION: 1. No acute fracture in the cervical spine. No subluxation. 2. Additional findings as described. This document has been electronically signed by: Malika Islas MD on 06/30/2024 21:28:33
--- NOTE | ~2024-06-30 | CT_ITS ---
CLINICAL HISTORY: whiplash type inj, on AC CT head without contrast Comparison: CT/SR - CT HEAD/BRAIN WO IV CON - 10/22/22 09:26 EDT Findings: No intra-axial mass, midline shift or hydrocephalus. 5 mm hyperdensity at the anteromedial aspect of left temporal lobe on image 19/35 series 4. Although this could be artifactual minimal focal parenchymal hemorrhage not excluded. No extra-axial hemorrhage. Atrophy. Nonspecific supratentorial white matter hypodensities most suggestive of chronic small-vessel ischemic changes with stable nonacute lacunar infarcts in right basal ganglia, anterior limb of left internal capsule and left thalamus. Stable basal ganglia calcifications. Atherosclerotic vascular disease. Mucosal thickening right maxillary sinus. Otherwise sinuses and mastoid air cells are clear The orbits are unremarkable. No acute skull fracture. IMPRESSION: 1. 5 mm intra-axial hyperdensity at anteromedial aspect of left temporal lobe on image 19/35 series 4 which could be artifactual but minimal parenchymal hemorrhage not excluded. 2. Otherwise no acute intracranial findings. 3. Stable nonacute findings as described. This document has been electronically signed by: Malika Islas MD on 06/30/2024 21:47:41
--- NOTE | 2024-06-30 20:24 | ED.GENADULT ---
HPI - General Adult General Chief complaint: Extremity Injury, Lower Stated complaint: r leg pain from snf Time Seen by Provider: 06/30/24 19:26 Source: patient and EMS Mode of arrival: EMS Limitations: language barrier (Belgian-speaking hydrodynamics teacher utilized) History of Present Illness HPI narrative: Patient is a 78-year-old female who presents emergency department via EMS coming from home today. She reports that yesterday when being transported from her home to dialysis, the purchasing administrative assistant who is facilitating her transfer who (while she was sitting in a wheelchair) slipped on the ramp and subsequently the patient as well as the wheelchair banged into the railing of the ramp on the right side. Patient admits that she struck her right knee against the rail and had a whiplash type reaction to her head and her neck. She admits to being anticoagulated on Eliquis. She denies any loss of consciousness. She has mild discomfort to the right side of her head but has right lateral neck pain. Her primary concern is the pain in her right leg and intense muscle spasming, pain at times radiates down to her foot. She is unable to sit still for prolonged period and is having intense spastic reaction to the right leg. She denies any additional recent injury to the leg aside from yesterday. Related Data Home Medications ?Medication ?Instructions ?Recorded ?Confirmed acetaminophen 325 mg tablet 325 mg PO Q6H PRN Mild Pain (Scale 07/19/22 10/22/22 Score 1-4) aspirin 81 mg tablet,delayed 81 mg PO DAILY 08/18/22 10/22/22 release apixaban 5 mg tablet (Eliquis) 5 mg PO BID 10/22/22 10/22/22 Previous Rx's ?Medication ?Instructions ?Recorded TRANSPORT WHEELCHAIR #1 ea 08/03/21 Extra depth orthopedic shoes (1 #1 ea 11/16/21 pair) with customized heat molded multidensity innersoles (3 pair) syringe with needle 3 mL 27 gauge #6 ea 03/08/22 x 1 06/26 loratadine 10 mg tablet 10 mg PO DAILY 90 days #90 tabs 04/29/22 hydralazine 25 mg tablet 25 mg PO TID 90 days #270 tabs 05/13/22 pen needle, diabetic 32 gauge x #50 ea 06/05/22 (BD Sandra 2nd Gen Pen Needle) albuterol sulfate 90 mcg/actuation 2 inh inhalation Q6H PRN shortness 06/10/22 aerosol inhaler of breath or wheezing 30 days #18 grams blood-glucose meter (FreeStyle #1 ea 06/12/22 Lite Meter kit) fluticasone propionate 115 2 puff inhalation Q12H 30 days #12 06/13/22 mcg-salmeterol 21 mcg/actuation grams HFA inhaler (Advair HFA) lancets 28 gauge (FreeStyle #100 ea 06/13/22 Lancets) DIGITAL SCALE #1 ea 06/14/22 pantoprazole 40 mg tablet,delayed 40 mg PO DAILY@0630 30 days #30 06/29/22 release tabs blood sugar diagnostic (FreeStyle #100 strips 08/05/22 Lite Strips) bariatric scale #1 ea 09/27/22 blood pressure monitor #1 ea 09/27/22 Multaq 400 mg tablet (dronedarone) 400 mg PO BID #60 tabs 10/01/22 diphenhydramine HCl 25 mg tablet 25 mg PO TID PRN itching 30 days 10/21/22 #90 tabs ferrous sulfate 324 mg (65 mg 324 mg PO DAILY #30 tabs 10/23/22 iron) tablet,delayed release metoprolol tartrate 25 mg tablet 12.5 mg PO BID #60 tabs 10/23/22 docusate sodium 100 mg capsule 100 mg PO BID PRN constipation 11/26/22 #180 caps montelukast 10 mg tablet 10 mg PO BEDTIME #90 tabs 11/26/22 sevelamer carbonate 800 mg tablet 800 mg PO DAILY #28 tabs 11/26/22 gabapentin 100 mg capsule 100 mg PO BID 30 days #60 caps 12/25/22 levothyroxine 25 mcg tablet 25 mcg PO DAILY@0600 #90 tabs 12/25/22 atorvastatin 40 mg tablet 40 mg PO BEDTIME #90 tabs 01/09/23 Allergies Allergy/AdvReac Type Severity Reaction Status Date / Time No Known Allergies Allergy Verified 06/30/24 19:29 Review of Systems Review of Systems: Yes all other systems are reviewed and are negative PMFSH Past Medical History Attestation statement: The following information was validated with the patient. Source: old records reviewed Medical History Pruritus ESRD needing dialysis Postoperative hematoma involving digestive system following digestive system procedure AVM (arteriovenous malformation) of colon Gastric ulcer Chronic anticoagulation ESRD (end stage renal disease) Anemia Osteopenia Asthma-COPD overlap syndrome Hypertension Dyspnea Hemodialysis patient ESRD on dialysis Fluid overload Obesity (BMI 30-39.9) PAF (paroxysmal atrial fibrillation) ESRD (end stage renal disease) Acute pericardial effusion PAF (paroxysmal atrial fibrillation) GERD (gastroesophageal reflux disease) Hypothyroidism Paroxysmal atrial fibrillation Pure hypercholesterolemia Benign essential hypertension Type 2 diabetes mellitus Anemia Nephrotic range proteinuria Chronic kidney disease, stage 4 (severe) Toe amputee Osteoarthritis Pernicious anemia Iron deficiency CAD (coronary artery disease) HLD (hyperlipidemia) Surgical History H/O colonoscopy History of laparoscopic cholecystectomy (08/21/22) S/P arteriovenous (AV) fistula creation Hx of appendectomy Social History Social History Household Members: Family Household Members Other:: [facility] Housing: House Do you presently have visiting nurse or other home services: Yes Alcohol intake: unknown Patient Tobacco Use Status: Never used Tobacco Smoked in Last 30 Days: No e-Cigarette/Vaping Use: Never Used Second Hand Smoke Exposure: No Use of substances other than those prescribed or required for medical reasons: No Advance Directives: No Advance Directives Information Provided: No Advance Directives Date on File: 08/22/22 service: No Current occupational status: disabled Cognitive needs: Yes Hearing needs: No Vision needs: No Physical Exam ED Vital Signs: Vital Signs - 24 hr 06/30/24 19:23 06/30/24 19:28 06/30/24 22:21 Temperature 97.5 F Pulse Rate 63 63 Respiratory Rate 18 20 18 Blood Pressure 174/64 H 174/64 H Pulse Oximetry 92 99 Oxygen Delivery Method Room Air Room Air Oxygen Flow Rate 06/30/24 22:29 06/30/24 22:30 06/30/24 22:38 Temperature Pulse Rate 61 58 Respiratory Rate 19 19 Blood Pressure 199/68 H 164/58 H Pulse Oximetry 93 99 100 Oxygen Delivery Method Room Air Nasal Cannula Nasal Cannula Oxygen Flow Rate 2 2 06/30/24 23:01 Temperature 98 F Pulse Rate 58 Respiratory Rate 19 Blood Pressure 164/58 H Pulse Oximetry 100 Oxygen Delivery Method Nasal Cannula Oxygen Flow Rate 2 BMI result Body Mass Index 33.1 Course Reevaluation(s) Reevaluation #1: Received call from laboratory regarding critical creatinine 4.49 which is consistent with ESRD. Critical glucose of 139 non-anion gap, lower suspicion for DKA. Suspect likely at baseline poorly controlled diabetes given multiple notably elevated levels in the past as well. Patient to receive insulin regular 10 units subcutaneous. Time: 21:26 Reevaluation #2: Critical from [facility] Findings: No intra-axial mass, midline shift or hydrocephalus. 5 mm hyperdensity at the anteromedial aspect of left temporal lobe on image 19/35 series 4. Although this could be artifactual minimal focal parenchymal hemorrhage not excluded. No extra-axial hemorrhage. Atrophy. Nonspecific supratentorial white matter hypodensities most suggestive of chronic small-vessel ischemic changes with stable nonacute lacunar infarcts in right basal ganglia, anterior limb of left internal capsule and left thalamus. Stable basal ganglia calcifications. Atherosclerotic vascular disease. Mucosal thickening right maxillary sinus. Otherwise sinuses and mastoid air cells are clear The orbits are unremarkable. No acute skull fracture. IMPRESSION: 1. 5 mm intra-axial hyperdensity at anteromedial aspect of left temporal lobe on image 19/35 series 4 which could be artifactual but minimal parenchymal hemorrhage not excluded. 2. Otherwise no acute intracranial findings. 3. Stable nonacute findings as described. Contacting [facility] for potential transfer. At this time she is not have any focal neurological deficits. Though it is difficult to get her to participate in a full neurological exam due to her right lower extremity pain. She continues to report excruciating pain to her right knee. 2+ DP/PT pulse is palpable. Extremity is warm. Full range of motion. XR is without obvious fracture. She does have a history of neuropathy, appears to be an intermittent sharp shock-like pain. She appears quite uncomfortable. Will trial a dose of morphine at this time. [facility] patient has been accepted as ED to ED transfer as truma consult; accepting physician Dr Galindo Time: 21:53 Reevaluation #3: Unable to make contact with patient's family to update them on findings today. She is unable to provide me with a direct phone number. Left voicemail for call back to patient's son Jason Muñoz Medications Administered Discontinued Medications Generic Name Dose Route Start Last Admin Trade Name Reema PRN Reason Stop Dose Admin Acetaminophen 975 mg 06/30/24 20:20 06/30/24 20:45 Acetaminophen 325 Mg Tablet PO 06/30/24 20:21 975 mg ONCE ONE Administration Insulin Human Regular 10 unit 06/30/24 21:30 06/30/24 22:23 Insulin Regular, Human 100 Unit/Ml 10 Ml Vial IVPUSH 06/30/24 21:31 10 unit ONCE ONE Administration Morphine Sulfate 2 mg 06/30/24 21:59 06/30/24 22:21 Morphine Sulfate 2 Mg/Ml Cartridge IVPUSH 06/30/24 22:00 2 mg ONCE ONE Administration Protocol Tizanidine HCl 2 mg 06/30/24 20:20 06/30/24 20:45 Tizanidine Hcl 4 Mg Tablet PO 06/30/24 20:21 2 mg ONCE ONE Administration Medical Decision Making Medical Decision Making [facility] Narrative: Patient is a 78-year-old female with past medical history of ESRD on dialysis Friday, , Friday, AVM of the colon, atrial fibrillation anticoagulated on Eliquis, anemia, osteopenia, asthma/COPD overlap, obesity, GERD, hypothyroidism, hyperlipidemia, hypertension, type 2 diabetes with polyneuropathy who presents emergency department for evaluation after a reported injury that occurred yesterday. It is difficult to perform a full neurological examination due to her degree of excruciating pain to the right knee as per HPI. She is continuously yelling out in pain. She does not appear to have any focal neurological deficits. She is answering questions appropriately. Given the mechanism of injury, will obtain CT head and cervical spine to exclude ICH, SDH, fracture, subluxation in addition to XR imaging of the right knee. On initial evaluation the extremity is neurovascularly intact distally. She has a spastic like reaction in endorsing shock-like pain which may be neuropathy, given the full range of motion to all joints have a lower suspicion for an acute fracture, and the ecchymosis on the right knee appears older than an injury that would have occurred yesterday. Given the spastic type nature will trial a low dose of muscle relaxant to see if she has relief from this. An additional obtain serum labs in place the pain and spasm is due to electrolyte derangement. Differential Diagnosis Differential Diagnoses: The differential diagnosis associated with the presentation includes (See narrative above) Admission/Observation Consideration of admission/observation: Escalation of care including admission/observation considered (See narrative above) Consult Healthcare Provider Management of the patient was discussed with: Welding Machine [employer] (A trauma transfer) Transfer to to [facility], see course narrative Lab Data MDM Lab Attestation statement: I reviewed the patient's lab results. 06/30/24 20:54 06/30/24 20:54 Labs: Lab Results 06/30/24 06/30/24 06/30/24 Range/Units 20:54 22:06 22:50 WBC 7.8 (4.8-10.8) X10*3/uL RBC 3.32 L (4.20-5.50) X10*6/uL Hgb 11.0 L (12.0-16.0) g/dl Hct 33.4 L (37.0-47.0) % MCV 100.6 H (80.0-98.0) fL MCH 33.1 H (27.0-33.0) pg MCHC 32.9 (31.0-35.0) g/dl RDW 14.8 (11.0-16.0) % Plt Count 131 L (160-400) X10*3/uL MPV 9.7 (9.4-12.3) fL Immature Gran % (Auto) 0.4 (0.0-0.4) % Neut % (Auto) 74.5 H (45-73) % Lymph % (Auto) 6.7 L (20-40) % [place] % (Auto) 12.4 H (2-11) % Eos % (Auto) 5.5 H (0-4) % Baso % (Auto) 0.5 (0-2) % Lymph # (Auto) 0.5 L (1.2-4.9) X10*3/uL [place] # (Auto) 1.0 (0.1-1.2) X10*3/uL Eos # (Auto) 0.4 (0.0-0.4) X10*3/uL Baso # (Auto) 0.0 (0.0-0.2) X10*3/uL Abs Immat Gran (auto) 0.03 (0.00-0.03) X10*3/uL Absolute Neuts (auto) 5.8 (2.0-8.3) x10*3/uL Absolute Nucleated RBC 0.000 (0.0-0.012) X10*3/uL Nucleated RBC % (auto) 0.0 (0.0-0.2) /100WBC PT 14.3 H (10.9-12.4) SEC INR 1.2 H (0.9-1.1) Sodium 133 L (135-145) mmol/L Potassium 4.9 (3.3-5.1) mmol/L Chloride 95 L (96-108) mmol/L Carbon Dioxide 23 (22-29) mmol/L Anion Gap 20 (12-20) BUN 40 H (9-16) mg/dL Creatinine 4.49 H* (0.5-1.4) mg/dL Estim Creat Clear Calc 9.8 Estimated GFR 10 POC Glucose 383 H* 285 H (60-115) mg/dL Random Glucose 439 H* (60-115) mg/dL Calcium 8.2 L (8.4-10.2) mg/dL Magnesium 1.9 (1.6-2.6) mg/dL Total Bilirubin 0.7 (0.0-1.0) mg/dL AST 27 (5-31) U/L ALT 28 (0-31) U/L Alkaline Phosphatase 261 H (39-117) U/L Total Protein 7.3 (6.5-8.0) g/dL Albumin 3.9 (3.5-5.0) g/dL Radiology Impression Discussion of test interpretation with radiology: I have reviewed the radiologist's reading. Radiologist Impression: Findings: XR right knee No acute fracture. No dislocation. Periosteal thickening along the proximal aspect of the fibula. No significant arthritic change or erosions. No joint effusion. Atherosclerotic vascular disease. IMPRESSION: 1. No acute fracture or dislocation. 2. Periosteal thickening proximal aspect of the fibula. Findings: CT head w/o contrast No intra-axial mass, midline shift or hydrocephalus. 5 mm hyperdensity at the anteromedial aspect of left temporal lobe on image 19/35 series 4. Although this could be artifactual minimal focal parenchymal hemorrhage not excluded. No extra-axial hemorrhage. Atrophy. Nonspecific supratentorial white matter hypodensities most suggestive of chronic small-vessel ischemic changes with stable nonacute lacunar infarcts in right basal ganglia, anterior limb of left internal capsule and left thalamus. Stable basal ganglia calcifications. Atherosclerotic vascular disease. Mucosal thickening right maxillary sinus. Otherwise sinuses and mastoid air cells are clear The orbits are unremarkable. No acute skull fracture. IMPRESSION: 1. 5 mm intra-axial hyperdensity at anteromedial aspect of left temporal lobe on image 19/35 series 4 which could be artifactual but minimal parenchymal hemorrhage not excluded. 2. Otherwise no acute intracranial findings. 3. Stable nonacute findings as described. Findings: CT cervical spine Cervical alignment is maintained with no subluxation. Vertebral body height overall maintained. No acute fracture in the cervical spine. Craniocervical junction is maintained. Multilevel endplate osteophyte formation most significant at C5-6 and C6-7. Degenerative disc disease at C5-6. Degenerative changes right C3-4 facet joint. Prevertebral soft tissues within normal limits. Thyroid within normal limits. Right internal jugular central venous catheter partially imaged. Interstitial thickening in right lung apex in right-sided pleural effusion. IMPRESSION: 1. No acute fracture in the cervical spine. No subluxation. 2. Additional findings as described. Independent Historian Clinical information obtained from an independent historian. History obtained from or confirmed by: EMS External Record Review External record reviewed: Outpatient record Chronic Conditions Patient?s care impacted by: Other (See narrative above) Critical Care Time Critical Care Time Critical Care Time: Yes Total Critical Care Time: 35 Attestation: I personally attest to this critical care time spent taking care of the patient exclusive of all other billable procedures was approximately 35 minutes including initial evaluation of patient, ordering tests, x-ray/ CT interpretation, EKG interpretation, medical consultation, documentation, re-evaluation. Discharge Plan Discharge Clinical Impression: Traumatic cerebral parenchymal hemorrhage, Acute pain of right lower extremity Patient Disposition: Xfer Acute Care Hospital Transfer Details: [facility] Prescriptions: No Action (DME) Extra depth orthopedic shoes (1 pair) with customized heat molded multidensity innersoles (3 pair) See Rx Instructions .Route .MEDSUPPLY Qty: 1 0RF Rx Instructions: As directed (DME) syringe with needle 3 mL 27 gauge x 1 1/4 syringe See Rx Instructions .Route Qty: 6 1RF Rx Instructions: As directed once a month (for Vitamin B12 injections) loratadine 10 mg tablet 10 mg PO DAILY 90 Days Qty: 90 3RF Rx Instructions: Take 1 tablet by mouth daily hydralazine 25 mg tablet 25 mg PO TID 90 Days Qty: 270 3RF Protocol: Hold for SBP< HOLD for SBP < : 90 (DME) blood-glucose meter [FreeStyle Lite Meter] Kit See Rx Instructions .Route Qty: 1 0RF Rx Instructions: As directed Advair HFA 115-21 mcg/actuation HFA aerosol inhaler 2 puff inhalation Q12H 30 Days Qty: 12 11RF (DME) lancets [FreeStyle Lancets] 28 gauge misc See Rx Instructions .ROUTE .MEDSUPPLY Qty: 100 12RF Rx Instructions: check BS 3x/day (DME) DIGITAL SCALE See Rx Instructions .Route .MEDSUPPLY Qty: 1 0RF Rx Instructions: As directed pantoprazole 40 mg tablet,delayed release (DR/EC) 40 mg PO DAILY@0630 30 Days Qty: 30 5RF (DME) FreeStyle Lite Strips Strip See Rx Instructions .ROUTE .COMPLEX Qty: 100 12RF Dose Instruction: USE DIRECTED ONCE A DAY Rx Instructions: USE DIRECTED ONCE A DAY (DME) blood pressure monitor Kit See Rx Instructions .Route Qty: 1 0RF Rx Instructions: As directed (DME) bariatric scale See Rx Instructions .Route .MEDSUPPLY Qty: 1 0RF Rx Instructions: As directed Multaq 400 mg tablet 400 mg PO BID Qty: 60 3RF Rx Instructions: must administer with a meal/food docusate sodium 100 mg capsule 100 mg PO BID PRN (Reason: constipation) Qty: 180 1RF montelukast 10 mg tablet 10 mg PO BEDTIME Qty: 90 3RF sevelamer carbonate 800 mg tablet 800 mg PO DAILY Qty: 28 3RF levothyroxine 25 mcg tablet 25 mcg PO DAILY@0600 Qty: 90 0RF gabapentin 100 mg capsule 100 mg PO BID 30 Days Qty: 60 1RF atorvastatin 40 mg tablet 40 mg PO BEDTIME Qty: 90 0RF acetaminophen 325 mg Tablet 325 mg PO Q6H PRN (Reason: Mild Pain (Scale Score 1-4)) aspirin 81 mg Tablet,Delayed Release (Dr/Ec) 81 mg PO DAILY Eliquis 5 mg Tablet 5 mg PO BID metoprolol tartrate 25 mg tablet 12.5 mg PO BID Qty: 60 5RF Protocol: Hold for SBP/HR < HOLD for SBP < : 90 HOLD for HR < : 60 ferrous sulfate 324 mg (65 mg iron) Tablet,Delayed Release (Dr/Ec) 324 mg PO DAILY Qty: 30 0RF (DME) TRANSPORT WHEELCHAIR See Rx Instructions .Route .MEDSUPPLY Qty: 1 0RF Rx Instructions: As directed (DME) pen needle, diabetic [BD Sandra 2nd Gen Pen Needle] 32 gauge x 5/32 needle See Rx Instructions .Route Qty: 50 0RF Rx Instructions: As directed diphenhydramine HCl 25 mg tablet 25 mg PO TID PRN (Reason: itching) 30 Days Qty: 90 3RF albuterol sulfate 90 mcg/actuation HFA aerosol inhaler 2 inh inhalation Q6H PRN (Reason: shortness of breath or wheezing) 30 Days Qty: 18 12RF Interventions: Acute Care Transfer Worksheet (ED) Last Done: 06/30/24 23:01 Discharge Date/Time: 06/30/24 23:02 Print Language: Belgian
[2024-06-30] MEDS: Acetaminophen 325 MG TABLET 975 MG PO (20:45)
[2024-06-30] MEDS: TiZANidine HCL 4 MG TABLET 2 MG PO (20:45)
[2024-06-30 20:59] LABS: MANUAL DIFF FLAG NO
[2024-06-30 21:01] LABS: Basophils Percent Auto 0.5 % (0-2); Eosinophils Absolute Auto 0.4 X10*3/uL (0.0-0.4); Eosinophils Percent Auto 5.5 % (0-4); Hematocrit 33.4 % (37.0-47.0); Imm Gran Abs Auto 0.03 X10*3/uL (0.00-0.03); Imm Gran Pct Auto 0.4 % (0.0-0.4); Lymphocytes Absolute Auto 0.5 X10*3/uL (1.2-4.9); Lymphocytes Percent Auto 6.7 % (20-40); Mean Corpuscular HGB Conc 32.9 g/dl (31.0-35.0); Mean Corpuscular Hemoglobin 33.1 pg (27.0-33.0); Mean Corpuscular Volume 100.6 fL (80.0-98.0); Mean Platelet Volume 9.7 fL (9.4-12.3); Monocytes Percent Auto 12.4 % (2-11); Neutrophils Absolute Auto 5.8 x10*3/uL (2.0-8.3); Neutrophils Percent Auto 74.5 % (45-73); Platelet Count 131 X10*3/uL (160-400); Red Blood Count 3.32 X10*6/uL (4.20-5.50); Red Cell Distribution Width 14.8 % (11.0-16.0); White Blood Count 7.8 X10*3/uL (4.8-10.8)
[2024-06-30 21:07] LABS: INTERNATIONAL NORM RATIO 1.2 (0.9-1.1); Prothrombin Time 14.3 SEC (10.9-12.4)
[2024-06-30 21:28] LABS: Alanine Aminotransferase 28 U/L (0-31); Albumin Level 3.9 g/dL (3.5-5.0); Alkaline Phosphatase 261 U/L (39-117); Anion Gap 20 (12-20); Aspartate Amino Transferase 27 U/L (5-31); Bilirubin Total 0.7 mg/dL (0.0-1.0); Blood Urea Nitrogen 40 mg/dL (9-16); Calcium 8.2 mg/dL (8.4-10.2); Carbon Dioxide 23 mmol/L (22-29); Chloride 95 mmol/L (96-108); Creatinine Clr Calc Pharmacy 9.8; Estimated Glomerular Filt Rate 10; Glucose Random 439 mg/dL (60-115); Magnesium 1.9 mg/dL (1.6-2.6); Potassium 4.9 mmol/L (3.3-5.1); Sodium 133 mmol/L (135-145); Total Protein 7.3 g/dL (6.5-8.0)
[2024-06-30 22:09] LABS: Glucose, Whole Blood 383 mg/dL (60-115)
[2024-06-30] MEDS: Morphine Sulfate 2 MG/ML CARTRIDGE IVPUSH (22:21)
[2024-06-30] MEDS: Insulin Regular, Human 100 UNIT/ML 10 ML VIAL 10 UNIT IVPUSH (22:23)
--- NOTE | 2024-06-30 22:42 | PC.NURSE ---
Patient awake and alert. skin pwd, resp even and non labored, speaking in full, clear sentences. moving all extremities. patient continues to be yelling out, c/o 10/10 right leg pain, medicated as ordered. patient aware of plan of care for transfer to [facility]
[2024-06-30 22:57] LABS: Glucose, Whole Blood 285 mg/dL (60-115)
== END 2024-06-30 23:02 | disposition short-term general hospital (02) ==
LOC: HO.ED 22:49
PROVIDERS: Nurse Practitioner Family; Emergency Provider Emergency Medicine Emergency Medical Services
DX: S06.5X0A Traumatic subdural hemorrhage without loss of consciousness, initial encounter (principal); E11.22 Type 2 diabetes mellitus with diabetic chronic kidney disease; I13.11 Hypertensive heart and chronic kidney disease without heart failure, with stage 5 chronic kidney disease, or end stage renal disease; M79.604 Pain in right leg; R51.9 Headache, unspecified; M54.2 Cervicalgia; N18.6 End stage renal disease; I25.10 Atherosclerotic heart disease of native coronary artery without angina pectoris; W05.0XXA Fall from non-moving wheelchair, initial encounter; Y92.89 Other specified places as the place of occurrence of the external cause; Y93.89 Activity, other specified; Y99.8 Other external cause status; Z79.899 Other long term (current) drug therapy; Z79.4 Long term (current) use of insulin; Z79.01 Long term (current) use of anticoagulants; Z99.2 Dependence on renal dialysis
CPT/HCPCS: 36415; 70450; 72125; 73560; 80053; 82947; 83735; 85025; 85610; 96374; 96375; 99284; 99285; J2270

== ENCOUNTER → 2024-06-30 20:19 | Outpatient (BNV) | payer OTHER, SELFPAY | PROVIDERS: Visit Provider Specialist | DX: M54.2 Cervicalgia (principal); M25.561 Pain in right knee | CPT/HCPCS: 70450; 72125; 73560 ==